=== PATIENT | male | born 1935 | race Caucasian/White ===

== ENCOUNTER 2019-10-04 00:14 | Emergency (ER) | payer MEDICARE, SELFPAY ==
--- NOTE | ~2019-10-04 | XR_ITS ---
EXAMINATION: XR foot RT min 3V DATE: 10/04/2019 02:16 INDICATION: Laceration at the right foot TECHNIQUE: Dorsoplantar, two oblique and lateral views of the right foot were obtained. COMPARISON: None. FINDINGS: Diffuse osteopenia. Screw fixation of a likely healed medial malleolar fracture with small amount of heterotopic ossification overlying the head of the screw. Hallux valgus. No acute fracture. 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 Mild to moderate osteoarthritis at many of the remaining joints in the right foot. Moderate-siz ed plantar calcaneal spur. Aside from the excreted no other radiopaque foreign bodies identified. IMPRESSION: 1. No acute osseous abnormality or radiopaque foreign bodies aside from a chronic fixation screw at t he medial malleolus. 2. 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 Reviewed, dictated and finalized at location A. IMPRESSION: 1. No acute osseous abnormality or radiopaque foreign bodies aside from a chron ic fixation screw at the medial malleolus. 2. 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
[2019-10-04 00:24] VITALS: BP 129/96; PULSE 76; RESP 18; TEMP 36.4; O2SAT 100
--- NOTE | 2019-10-04 01:45 | ED.WOUNDLAC ---
HPI - Wound/Laceration General Chief Complaint: Wound/Laceration Stated Complaint: R Foot Injury Time Seen by Provider: 10/04/19 01:32 Source: patient and family Mode of arrival: ambulatory Limitations: dementia History of Present Illness HPI narrative: This patient is an 84 year old male with history of Dementia, DM, and hypothyroid who presents with daughter for evaluation of right toe lacerations. She states patient fell and stubbed his toe. She found that he bent his toes upward and she found that he had lacerations under his right 4th and 5th toes. Patient states he is fine and he has not complaints. He denies numbness or tingling or pain. Related Data Home Medications Medication Instructions Recorded Confirmed glipizide 5 mg PO QAM 10/04/19 levothyroxine 75 mcg PO DAILY 10/04/19 lisinopril 2.5 mg PO DAILY 10/04/19 loratadine 10 mg PO DAILY 10/04/19 memantine 5 mg PO BID 10/04/19 Allergies Allergy/AdvReac Type Severity Reaction Status Date / Time No Known Allergies Allergy Unverified 10/04/19 00:38 Review of Systems Review of Systems: ROS unobtainable: Yes other (dementia, he denies all complaints) [facility] Past Medical History Medical History (Updated 10/04/19 @ 04:07 by Radha Dyer MD) Dementia Diabetes mellitus Hypertension Hypothyroid Surgical History Surgical History (Updated 10/04/19 @ 01:46 by Radha Dyer MD) Hx of foot surgery Social History Social History (Updated 10/04/19 @ 01:46 by Radha Dyer MD) Living arrangements: with family Exam Const: General: no acute distress and alert Orientation/consciousness: patient oriented x3 HENMT: Head: normocephalic and atraumatic Eyes: Pupils: Equal, round and reactive pupils present EOM: EOMs intact bilaterally Chest: Chest palpation & inspection: normal inspection of the chest Resp: Effort & Inspection: normal respiratory effort and no retractions Auscultation: clear to auscultation bilaterally Neuro: General: moves all extremities and CN's II-XI intact bilaterally Extrem: Other: right foot with with laceration at crease of plantar surface of 4th and 5th toe. able to visualize tendon on 5th toe , appears intact, able to flex and extend all toes, foot swelling Psych: Mental Status: mental status grossly normal Affect: normal affect Course Vital Signs Vital signs: Vital Signs Temperature 97.6 F 10/04/19 00:24 Pulse Rate 76 10/04/19 00:24 Respiratory Rate 18 10/04/19 00:24 Blood Pressure 129/96 H 10/04/19 00:24 Pulse Oximetry 100 10/04/19 00:24 Temperature 98.1 F 10/04/19 04:33 Pulse Rate 76 10/04/19 04:33 Respiratory Rate 18 10/04/19 04:33 Blood Pressure 123/73 10/04/19 04:33 Pulse Oximetry 100 10/04/19 04:33 Procedures Laceration Laceration 1: Date: 10/04/19 Time: 04:04 Side (If applicable): right (5th toe plantar surface) Size (cm): 1 Description: linear and clean Local Anesthetic: lidocaine 1% Amount of anesthesia used (mL): 2 Pre-repair: irrigated and deep structures intact ====== Skin Level ====== Skin layer closed with: prolene Size (cm): 4-0 Number of sutures: 5 Technique: simple, interrupted ====== Subcutaneous Layer ====== ====== Muscle Layer ====== ====== Tendon Layer ====== Laceration 2: Date: 10/04/19 Time: 04:05 Site: lower extremity Side (If applicable): right (4th toe) Size (cm): 1 Description: linear Depth: simple, single layer Local Anesthetic: lidocaine 1% Amount of anesthesia used (mL): 2 Pre-repair: irrigated and deep structures intact ====== Skin Level ====== Skin layer closed with: prolene Size (cm): 4-0 Number of sutures: 5 ====== Subcutaneous Layer ====== ====== Muscle Layer ====== ====== Tendon Layer ======
[2019-10-04] MEDS: TETANUS,DIPHTHERIA,AC PERTUSSIS ADULT (0.5 ML) BOOSTRIX IM (02:15)
[2019-10-04 04:33] VITALS: BP 123/73; PULSE 76; RESP 18; TEMP 36.7; O2SAT 100
== END 2019-10-04 04:34 | disposition home or self-care (01) ==
PROVIDERS: Emergency Provider General Practice
DX: S91.114A Laceration without foreign body of right lesser toe(s) without damage to nail, initial encounter (principal); F03.90 Unspecified dementia, unspecified severity, without behavioral disturbance, psychotic disturbance, mood disturbance, and anxiety; E11.9 Type 2 diabetes mellitus without complications; Z79.84 Long term (current) use of oral hypoglycemic drugs; I10 Essential (primary) hypertension; E03.9 Hypothyroidism, unspecified; Z23 Encounter for immunization; W22.8XXA Striking against or struck by other objects, initial encounter
CPT/HCPCS: 12001; 73630; 90471; 90715; 99283

== ENCOUNTER 2019-11-01 14:21 | Observation (INO) | payer MEDICARE, SELFPAY ==
[2019-11-01] VITALS (20 sets, daily range): BP systolic 98–126; BP diastolic 41–81; PULSE 86–121; RESP 17–35; TEMP 36.8–38.1; O2SAT 96–100; BMI 25.4
--- NOTE | ~2019-11-01 | XR_ITS ---
XR chest 1V portable DATE: 11/01/2019 15:51 INDICATION: Palpitations. Weakness. TECHNIQUE: Portable upright AP chest on 11/01/2019 at 1545 hours COMPARISON: None FINDINGS: Normal heart size. There is aortic arch calcification. No hilar or mediastinal enlargement. There is minimal infiltrate or atelectasis in the lower lung zones, left greater than right. No pulmo nary infiltrate or consolidation, pleural effusion or pulmonary vascular congestion or pneumothorax i s noted otherwise. There is diffuse osteopenia. Bilateral rotator cuff atrophy. There is an anchor device of the right h umeral head. IMPRESSION: Minimal infiltrate or atelectasis in the lower lung zones, left greater than right Reviewed, dictated and finalized at location A. IMPRESSION: Minimal infiltrate or atelectasis in the lower lung zones, left gre ater than right
[2019-11-01] MEDS: SODIUM CHLORIDE 0.9% IV 1,000 ML 999 ML IV CONT ×2 (14:50→17:22)
--- NOTE | 2019-11-01 15:14 | ECG_ITS ---
Measurements Intervals [place] Rate: 120 P: VT: 0 QRS: 61 QRSD: 81 T: 44 QT: 309 QTc: 437 Interpretive Statements SINUS OR ECTOPIC ATRIAL TACHYCARDIA RSR' IN V1 OR V2, CONSIDER RIGHT VENTRICULAR HYPERTROPHY OR RIGHT VCD BASELINE WANDER- I, II ABNORMAL ECG Electronically Signed On 11-01-2019 15:29:57 CDT by Vinicius Buck D.O.
[2019-11-01 15:46] LABS: Basophils Percent Auto 0.4 % (0.2-1.2); Eosinophils Percent Auto 0.1 % (0-4.4); Hematocrit 41.3 % (42.0-52.0); Hemoglobin 13.6 g/dL (14.0-18.0); Immature Granulocyte Absolute 0.04 K/mm3 (0.00-0.031); Immature Granulocyte Percent A 0.4 % (0-0.5); Lymphocytes Absolute Auto 0.75 K/mm3 (0.9-3.2); Lymphocytes Percent Auto 6.8 % (18.3-44.2); Mean Corpuscular HGB Conc 32.9 g/dl (32-36); Mean Corpuscular Volume 94.1 fl (80-100); Monocytes Percent Auto 8.9 % (2.6-8.5); Neutrophils Absolute Auto 9.2 K/mm3 (1.3-6.7); Neutrophils Percent Auto 83.4 % (45.5-73.1); Platelet Count Result 210 k/mm3 (150-375); Red Blood Count 4.39 M/mm3 (4.6-6.20); Red Cell Distribution Width 13.6 % (11.5-14.5)
[2019-11-01 15:56] LABS: INR 1.1
[2019-11-01 15:57] LABS: Partial Thromboplastin Time 27.7 SECONDS (22.3-36.8)
[2019-11-01 16:23] LABS: Add Urine Microscopic? NO; Appearance Urine Clear (Clear); Bilirubin Urine Negative (Negative); Blood Urine Negative (Negative); Color Urine Straw (Yellow); Glucose Urine UA Negative (Negative); Ketones Urine Negative (Negative); Leukocyte Esterase Ur Negative LEU/UL (Negative); Nitrate Urine Negative (Negative); Protein Urine Negative (Negative); Specific Grav Ur 1.011 (1.001-1.035); Urobilinogen Urine Negative mg/dL (<2.0)
[2019-11-01 16:26] LABS: Alanine Aminotransferase 13 U/L (4-50); Albumin Level 3.8 g/dL (3.5-5.1); Alkaline Phosphatase 68 U/L (38-126); Anion Gap 9 mmol/L (8-16); Aspartate Amino Transferase 18 U/L (17-59); Bilirubin,Total 0.5 mg/dL (0.2-1.3); Blood Urea Nitrogen 19 mg/dL (9-20); Calcium 8.4 mg/dL (8.4-10.2); Carbon Dioxide 25 mmol/L (22-30); Chloride 99 mmol/L (98-107); Estimated CRCL calculation 32 ml/min; Estimated Glomerular Filt Rate 53; Glucose 232 mg/dL (75-110); Potassium 4.3 mmol/L (3.4-5.0); Sodium 133 mmol/L (137-145)
[2019-11-01 16:31] LABS: Troponin I < 0.012 ng/mL (0.000-0.034)
--- NOTE | 2019-11-01 16:37 | PC.NURSE ---
asked nurse to collect lactic
--- NOTE | 2019-11-01 16:56 | ED.FEVER ---
HPI - Fever General Chief Complaint: Fever Stated Complaint: WEAKNESS/CP Time Seen by Provider: 11/01/19 14:28 Source: patient History of Present Illness HPI Narrative: 84 years old white male, history of diabetes, dementia, was doing okay last night, this morning was not able to get out of bed because of generalized weakness and tiredness, plus intermittent coughing. Patient was complaining of right chest pain, radiating to right lower extremity, patient been indoors since the beginning of the COVID-19, the daughter denied any exposure to anybody with known COVID-19 MD elicited complaint: malaise and weakness Related Data Home Medications Medication Instructions Recorded Confirmed glipizide 5 mg PO QAM 10/04/19 levothyroxine 75 mcg PO DAILY 10/04/19 loratadine 10 mg PO DAILY 10/04/19 memantine 5 mg PO BID 10/04/19 Allergies Allergy/AdvReac Type Severity Reaction Status Date / Time No Known Allergies Allergy Verified 11/01/19 14:55 Review of Systems Review of Systems: Narrative: CONSTITUTIONAL: Denies fever, chills, or sweats. EYES: Denies visual changes, redness, or discharge. ENT: Denies rhinorrhea, congestion, sore throat, or otalgia. CARDIOVASCULAR: Denies chest pain, palpitations, or edema. RESPIRATORY: Denies cough or dyspnea. GASTROINTESTINAL: Denies abdominal pain, nausea, vomiting, or diarrhea. GENITOURINARY: Denies dysuria or hematuria. SKIN: Denies rash or itching. MUSCULOSKELETAL: Denies back pain, joint pain, or myalgia. NEUROLOGIC: Denies headache, numbness, or weakness. PSYCHIATRIC: Denies anxiety or depression. PMFSH Past Medical History Medical History Dementia Diabetes mellitus Hypertension Hypothyroid Surgical History Surgical History Hx of foot surgery Social History Social History Gender identity (if verbalized by the patient): Male Exam Narrative: Exam Narrative: General appearance: Well-developed, well-nourished, sitting at the edge of the bed with intermittent coughing, daughter at the bedside Skin: Normal color Head: Normocephalic, nontraumatic Eyes: Clear conjunctiva ENT: Oropharynx normal, ears normal, nose normal Neck: Supple, nontender Chest and respiratory: Airway patent, no respiratory distress, no accessory muscle use Heart: Regular rate/rhythm Abdomen: Soft, nontender, no organomegaly, quiet bowel sounds Vascular: Normal peripheral pulses, normal capillary refill. Musculoskeletal: Normal range of motion, nontender back Neurologic: Alert and oriented to his name and age only Course Course Emergency Course: Stable Vital Signs Vital signs: Vital Signs Temperature 38.1 C H 11/01/19 14:29 Pulse Rate 119 H 11/01/19 14:29 Respiratory Rate 24 H 11/01/19 14:29 Blood Pressure 126/75 11/01/19 14:29 Pulse Oximetry 100 11/01/19 14:29 Temperature 38.1 C H 11/01/19 14:46 Pulse Rate 119 H 11/01/19 14:46 Respiratory Rate 26 H 11/01/19 14:54 Blood Pressure 115/80 11/01/19 14:46 Pulse Oximetry 99 11/01/19 14:54 MDM - Fever MDM Narrative Medical decision making narrative: Patient presents with chest pain, fever, general weakness, Labs, chest x-ray, EKG, IV fluid, Tylenol ordered. Further plan to follow Chest ray showed bilateral basal infiltration more on the left side, pneumonia is my concern. IV Rocephin and Zithromax started. COVID-19 test ordered. Patient will be admitted for further evaluation. Lab Data Result diagrams: 11/01/19 15:37 11/01/19 15:37 Labs: Lab Results
[2019-11-01 17:10] LABS: Lactic Acid Reflex 1.7 mmol/L (0.7-2.1)
[2019-11-01] MEDS: ACETAMINOPHEN 325 MG TABLET 650 MG PO (17:19)
[2019-11-01 18:50] LABS: Troponin I < 0.012 ng/mL (0.000-0.034)
--- NOTE | 2019-11-01 19:08 | PC.NURSE ---
This patient, Mk Sanches, was admitted to [facility] Surg Room 331-01. Report received from JEAN-PAUL Durán. Patient/family oriented to hospital policies and general routines including ID bracelet, bed and alarms, visiting hours, pain management, procedures, bathroom and other care routines, personal items, smoking policy, room service/diet, and visiting hours. Valuables list has been completed. Information on how to activate the Rapid Response Team has been discussed. Patient/Family are encouraged to report perceived risks to care and to ask questions if they do not understand what they are told or what they should do.
[2019-11-01] MEDS: SODIUM CHLORIDE 0.9% IV 1,000 ML 100 ML IV CONT (19:30)
[2019-11-01 21:25] LABS: CRP 8.4 mg/dL (<1.0)
[2019-11-01 23:20] LABS: Glucose Point of Care 172 (65-105)
[2019-11-02] VITALS: BP 155/87; PULSE 89; RESP 20; TEMP 37.3; O2SAT 96
[2019-11-02 04:00] VITALS: BP 126/64; PULSE 85; RESP 20; TEMP 37.3; O2SAT 93
--- NOTE | 2019-11-02 05:35 | PM.IMHP ---
H&P: HPI History of Present Illness Date/Time: 11/02/19 05:35 Chief complaint: chest pain and weakness Narrative: Mk Sanches is a 84 year old male with a past medical history of hypothyroidism diabetes and dementia who presented to the ER from home due to generalized weakness and cough. Source of information is ER records as patient is only oriented to person date of and age. He cannot remember why he exactly came in the ER yesterday afternoon. The patient evidently came from home where he lives with his daughter. He has not had any exposures to any persons with COVID-19. He has been indoors at home since the beginning of the COVID-19 outbreak.The patient was evidently complaining of right-sided chest pain that radiated to his right lower extremity. He was doing well on the evening of the but on the morning of the he was unable to get out of bed . He was complaining of malaise.. He was noted to have a dry intermittent cough. on arrival to the ER the patient had temperature of 100.6?. Review of Systems Review of Systems: Narrative: 12 systems were reviewed with pertinent positives and negatives per HPI. Except as documented in the HPI, all other systems were reviewed and are negative. PENDING SALE TO [facility] Past Medical History Medical History (Updated 11/02/19 @ 08:19 by Dannielle Gu DO) Dementia Depression Diabetes mellitus Hypertension Hypothyroid Surgical History Surgical History (Updated 11/02/19 @ 05:42 by Dannielle Gu DO) History of bilateral cataract extraction Hx of foot surgery Family History Family History Other Unknown family medical history Social History Social History (Updated 11/02/19 @ 08:08 by Dannielle Gu DO) Social History: Primary care physician: Dr. Rosana Solo Code status: DNR/DNI Smoking status: Never smoker Smokeless tobacco user: chewing tobacco Alcohol intake: former Substance use: never Living arrangements: with family Additional living arrangements comments: He lives with his daughter. 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 Gender identity (if verbalized by the patient): Male Spiritual care concerns: Yes Meds Home Medications and Allergies Home Medications Medication Instructions Recorded Confirmed Type glipizide 5 mg PO QAM 10/04/19 11/01/19 History levothyroxine 75 mcg PO DAILY 10/04/19 11/01/19 History loratadine 10 mg PO DAILY 10/04/19 11/01/19 History memantine 5 mg PO BID 10/04/19 11/01/19 History aspirin [Adult Low Dose Aspirin] 81 mg PO DAILY 11/01/19 11/01/19 History Allergies Allergy/AdvReac Type Severity Reaction Status Date / Time No Known Allergies Allergy Verified 11/01/19 14:55 Vital Signs Vital Signs - 24 hr 11/01/19 14:29 11/01/19 14:46 11/01/19 14:53 Temperature 100.6 F H 100.5 F H Pulse Rate 119 H 119 H 118 H Respiratory Rate 24 H 26 H 31 H Blood Pressure 126/75 115/80 Pulse Oximetry 100 98 100 11/01/19 14:54 11/01/19 15:00 11/01/19 15:01 Temperature Pulse Rate 115 H 114 H Respiratory Rate 26 H 35 H 34 H Blood Pressure 113/74 Pulse Oximetry 99 98 98 11/01/19 15:16 11/01/19 15:30 11/01/19 16:13 Temperature Pulse Rate 111 H 107 H 118 H Respiratory Rate 32 H 26 H 29 H Blood Pressure Pulse Oximetry 11/01/19 16:15 11/01/19 16:32 11/01/19 16:45 Temperature Pulse Rate 120 H 121 H 119 H Respiratory Rate 21 H 22 H 25 H Blood Pressure Pulse Oximetry 11/01/19 17:19 11/01/19 17:26 11/01/19 17:30 Temperature Pulse Rate 113 H 114 H 107 H Respiratory Rate 24 H 17 26 H Blood Pressure 109/73 108/81 Pulse Oximetry 99 99 11/01/19 17:49 11/01/19 18:00 11/01/19 19:27 Temperature 98.8 F 98.5 F Pulse Rate 96 96 Respiratory Rate 22 H 18 Blood Pressure 111/41 L 98/64 L Pulse Oximetry 99 99 11/01/19 19:50 11/01/19 20:00
[2019-11-02] MEDS: SODIUM CHLORIDE 0.9% IV 1,000 ML 100 ML IV CONT ×2 (06:26→18:37)
[2019-11-02 06:27] VITALS: TEMP 37.3
[2019-11-02 06:55] VITALS: TEMP 37.2
[2019-11-02] MEDS: LEVOTHYROXINE SODIUM 75 MCG TABLET PO (07:09)
[2019-11-02] MEDS: glipiZIDE 5 MG TABLET PO (07:10)
[2019-11-02 08:04] LABS: Glucose Point of Care 145 (65-105)
[2019-11-02 08:35] LABS: Hematocrit 35.6 % (42.0-52.0); Hemoglobin 11.8 g/dL (14.0-18.0); Mean Corpuscular HGB Conc 33.1 g/dl (32-36); Mean Corpuscular Hemoglobin 31.5 pg (26-34); Mean Corpuscular Volume 94.9 fl (80-100); Mean Platelet Volume 10.8 fl (7.4-10.4); Platelet Count Result 198 k/mm3 (150-375); Red Blood Count 3.75 M/mm3 (4.6-6.20); Red Cell Distribution Width 13.7 % (11.5-14.5); White Blood Count 7.9 K/mm3 (4.5-10.0)
[2019-11-02 08:48] LABS: Anion Gap 5 mmol/L (8-16); Blood Urea Nitrogen 14 mg/dL (9-20); Calcium 7.7 mg/dL (8.4-10.2); Carbon Dioxide 23 mmol/L (22-30); Chloride 106 mmol/L (98-107); Estimated CRCL calculation 42 ml/min; Estimated Glomerular Filt Rate 58; Glucose 143 mg/dL (75-110); Sodium 134 mmol/L (137-145)
[2019-11-02] MEDS: LORATADINE 10 MG TABLET PO (10:12)
[2019-11-02] MEDS: MEMANTINE 5 MG TABLET PO ×2 (10:12→18:41)
[2019-11-02] MEDS: ASPIRIN 81 MG ENTERIC TABLET PO (10:12)
[2019-11-02 14:00] VITALS: BP 104/52; PULSE 76; RESP 16; TEMP 36.8; O2SAT 96
[2019-11-02 14:19] LABS: SARS-CoV-2 RNA PCR Negative
--- NOTE | 2019-11-02 14:48 | PM.IMPN ---
Progress Note: A&P Assessment and Plan (1) Pneumonia: Qualifiers: Pneumonia type: due to unspecified organism Laterality: bilateral Lung location: lower lobe of lung Qualified Code(s): J18.9 - Pneumonia, unspecified organism Code(s): J18.9 - Pneumonia, unspecified organism Status: Acute Assessment and Plan: Minimal infiltrate or atelectasis in the lower lung zones, left greater than right from cxr, pt is on iv rocephin and iv zithromax, pt to continue both. bc negative to date. pt to be transfered to medical floor (2) Fever: Code(s): R50.9 - Fever, unspecified Status: Acute Assessment and Plan: Fever coming down (3) Person under investigation for COVID-19: Code(s): Z20.828 - Contact with and (suspected) exposure to other viral communicable diseases Status: Acute Assessment and Plan: Negative test Subjective Date/time seen: 11/02/19 14:48 Interval history: 84 year old male with a past medical history of hypothyroidism diabetes and dementia who presented to the ER from home due to generalized weakness and cough. pt is sleeping in the room, I told him his covid test was negative. no specific compliants just very tired Review of Systems Review of Systems: ROS unobtainable: Yes unobtainable due to medical condition Exam Narrative: Exam Narrative: elderly man very tired in bed no acute distress lying in bed hold conversation, alert when woken up Objective Data Vital Signs Vital Signs: Vital Signs - 24 hr 11/01/19 14:53 11/01/19 14:54 11/01/19 15:00 Temperature Pulse Rate 118 H 115 H Respiratory Rate 31 H 26 H 35 H Blood Pressure Pulse Oximetry 100 99 98 11/01/19 15:01 11/01/19 15:16 11/01/19 15:30 Temperature Pulse Rate 114 H 111 H 107 H Respiratory Rate 34 H 32 H 26 H Blood Pressure 113/74 Pulse Oximetry 98 11/01/19 16:13 11/01/19 16:15 11/01/19 16:32 Temperature Pulse Rate 118 H 120 H 121 H Respiratory Rate 29 H 21 H 22 H Blood Pressure Pulse Oximetry 11/01/19 16:45 11/01/19 17:19 11/01/19 17:26 Temperature Pulse Rate 119 H 113 H 114 H Respiratory Rate 25 H 24 H 17 Blood Pressure 109/73 Pulse Oximetry 99 11/01/19 17:30 11/01/19 17:49 11/01/19 18:00 Temperature 37.1 C Pulse Rate 107 H 96 Respiratory Rate 26 H 22 H Blood Pressure 108/81 111/41 L Pulse Oximetry 99 99 11/01/19 19:27 11/01/19 19:50 11/01/19 20:00 Temperature 36.9 C 36.8 C Pulse Rate 96 86 Respiratory Rate 18 18 Blood Pressure 98/64 L 121/73 Pulse Oximetry 99 96 100 11/02/19 00:00 11/02/19 04:00 11/02/19 06:27 Temperature 37.3 C 37.3 C 37.3 C Pulse Rate 89 85 Respiratory Rate 20 20 Blood Pressure 155/87 H 126/64 Pulse Oximetry 96 93 11/02/19 06:55 11/02/19 14:00 Temperature 37.2 C 36.8 C Pulse Rate 76 Respiratory Rate 16 Blood Pressure 104/52 L Pulse Oximetry 96 Intake/Output Intake/Output: Intake & Output 10/30/19 10/31/19 11/01/19 11/02/19 23:59 23:59 23:59 23:59 Intake Total 2300 1900 Balance 2300 1900 Meds/Results Medications: Active Medications Generic Name Dose Route Start Last Admin Trade Name Freq PRN Reason Stop Dose Admin Acetaminophen 650 mg 11/02/19 08:11 Tylenol Tablet PO Q4H PRN Mild Pain (1-3) or Fever Aspirin 81 mg 11/02/19 09:00 11/02/19 10:12 Aspirin Ec PO 81 mg DAILY DANIELLE Administration Dextrose 12.5 gm 11/01/19 22:39 Dextrose 50% Syringe IV PUSH PRN PRN Hypoglycemia Protocol Glipizide 5 mg 11/02/19 07:30 11/02/19 07:10 Glucotrol PO 5 mg DAILY@0730 DANIELLE Administration Glucagon 1 mg 11/01/19 22:39 Glucagon For Inj IM PRN PRN Hypoglycemia Protocol Glucose 15 gm 11/01/19 22:39 Glutose 15 PO PRN PRN Hypoglycemia Protocol Sodium Chloride 1,000 mls @ 100 mls/hr 11/01/19 17:50 11/02/19 06:26 Normal Saline Iv IV CONT 10
[2019-11-02 20:09] LABS: Glucose Point of Care 161 (65-105)
[2019-11-02 22:00] VITALS: BP 117/58; PULSE 108; RESP 18; TEMP 36.9; O2SAT 97
[2019-11-03 02:22] LABS: Glucose Point of Care 198 (65-105)
[2019-11-03 02:22] LABS: Glucose Point of Care 158 (65-105)
[2019-11-03] MEDS: LEVOTHYROXINE SODIUM 75 MCG TABLET PO (05:36)
[2019-11-03] MEDS: SODIUM CHLORIDE 0.9% IV 1,000 ML 100 ML IV CONT (05:54)
[2019-11-03 05:58] LABS: Hematocrit 35.9 % (42.0-52.0); Hemoglobin 11.9 g/dL (14.0-18.0); Mean Corpuscular HGB Conc 33.1 g/dl (32-36); Mean Corpuscular Hemoglobin 31.5 pg (26-34); Mean Platelet Volume 10.9 fl (7.4-10.4); Platelet Count Result 213 k/mm3 (150-375); Red Blood Count 3.78 M/mm3 (4.6-6.20); Red Cell Distribution Width 13.6 % (11.5-14.5); White Blood Count 7.5 K/mm3 (4.5-10.0)
[2019-11-03 06:00] VITALS: BP 102/53; PULSE 67; RESP 20; TEMP 36.5; O2SAT 96
[2019-11-03 06:10] LABS: Anion Gap 5 mmol/L (8-16); Blood Urea Nitrogen 15 mg/dL (9-20); Calcium 7.9 mg/dL (8.4-10.2); Carbon Dioxide 23 mmol/L (22-30); Chloride 106 mmol/L (98-107); Estimated CRCL calculation 39 ml/min; Estimated Glomerular Filt Rate 53; Glucose 146 mg/dL (75-110); Potassium 4.1 mmol/L (3.4-5.0); Sodium 134 mmol/L (137-145)
[2019-11-03] MEDS: LORATADINE 10 MG TABLET PO (08:35)
[2019-11-03] MEDS: ASPIRIN 81 MG ENTERIC TABLET PO (08:35)
[2019-11-03] MEDS: glipiZIDE 5 MG TABLET PO (08:35)
[2019-11-03] MEDS: MEMANTINE 5 MG TABLET PO ×2 (08:36→17:28)
[2019-11-03 09:44] LABS: Glucose Point of Care 112 (65-105)
[2019-11-03 12:13] LABS: Glucose Point of Care 138 (65-105)
[2019-11-03 14:00] VITALS: BP 116/62; PULSE 86; RESP 18; TEMP 36.7; O2SAT 98
--- NOTE | 2019-11-03 14:55 | PM.IMPN ---
Progress Note: A&P Assessment and Plan (1) Pneumonia: Qualifiers: Laterality: bilateral Lung location: lower lobe of lung Pneumonia type: due to unspecified organism Qualified Code(s): J18.9 - Pneumonia, unspecified organism Code(s): J18.9 - Pneumonia, unspecified organism Status: Acute Assessment and Plan: Minimal infiltrate or atelectasis in the lower lung zones, left greater than right from cxr, pt is on iv rocephin and iv zithromax, pt to continue both. bc negative to date. (2) Fever: Code(s): R50.9 - Fever, unspecified Status: Acute Assessment and Plan: Fever coming down, cough, sob improving. Hopegul dischrage tomorrow. (3) Person under investigation for COVID-19: Code(s): Z20.828 - Contact with and (suspected) exposure to other viral communicable diseases Status: Acute Assessment and Plan: Negative test Subjective Date/time seen: 11/03/19 14:55 Interval history: 84 year old male with a past medical history of hypothyroidism diabetes and dementia who presented to the ER from home due to generalized weakness and cough. pt is sleeping in the room, I told him his covid test was negative. no specific compliants, in good mood today, feels much better Review of Systems Review of Systems: All systems reviewed & are unremarkable except as noted in HPI and below Exam Narrative: Exam Narrative: Elderly man very tired in bed RRR Chest sounds wheezy BL Abdo soft non tender Legs non edematous Objective Data Vital Signs Vital Signs: Vital Signs - 24 hr 11/02/19 22:00 11/03/19 06:00 Temperature 36.9 C 36.5 C Pulse Rate 108 H 67 Respiratory Rate 18 20 Blood Pressure 117/58 L 102/53 L Pulse Oximetry 97 96 Intake/Output Intake/Output: Intake & Output 10/31/19 11/01/19 11/02/19 11/03/19 23:59 23:59 23:59 23:59 Intake Total 2300 3890 1200 Output Total 1350 675 Balance 2300 2540 525 Meds/Results Medications: Active Medications Generic Name Dose Route Start Last Admin Trade Name Freq PRN Reason Stop Dose Admin Acetaminophen 650 mg 11/02/19 08:11 Tylenol Tablet PO Q4H PRN Mild Pain (1-3) or Fever Aspirin 81 mg 11/02/19 09:00 11/03/19 08:35 Aspirin Ec PO 81 mg DAILY DANIELLE Administration Dextrose 12.5 gm 11/01/19 22:39 Dextrose 50% Syringe IV PUSH PRN PRN Hypoglycemia Protocol Glipizide 5 mg 11/02/19 07:30 11/03/19 08:35 Glucotrol PO 5 mg DAILY@0730 DANIELLE Administration Glucagon 1 mg 11/01/19 22:39 Glucagon For Inj IM PRN PRN Hypoglycemia Protocol Glucose 15 gm 11/01/19 22:39 Glutose 15 PO PRN PRN Hypoglycemia Protocol Sodium Chloride 1,000 mls @ 100 mls/hr 11/01/19 17:50 11/03/19 05:54 Normal Saline Iv IV CONT 100 mls/hr .Q10H DANIELLE Administration Dextrose 1,000 mls @ 100 mls/hr 11/01/19 22:39 Dextrose 5% 1,000 Ml IVPB PRN PRN Hypoglycemia Protocol Ceftriaxone Sodium/Dextrose 1 gm in 50 mls @ 100 mls/hr 11/02/19 17:00 11/02/19 19:09 Rocephin 1 Gm/D5w 50 Ml IVPB Infused Q24H DANIELLE Infusion Azithromycin 500 mg in 250 mls @ 250 mls/hr 11/02/19 16:00 11/02/19 19:38 Zithromax IVPB Infused Q24H DANIELLE Infusion Insulin Aspart 3 - 6 units 11/02/19 08:00 11/03/19 13:40 Novolog SUB-Q Not Given TIDWM [facility] Protocol Levothyroxine Sodium 75 mcg 11/02/19 06:30 11/03/19 05:36 Synthroid PO 75 mcg DAILY@0630 DANIELLE Administration Loratadine 10 mg 11/02/19 09:00 11/03/19 08:35 Claritin PO 10 mg DAILY DANIELLE Administration Memantine 5 mg 11/02/19 09:00 11/03/19 08:36 Namenda PO 5 mg BID DANIELLE Administration Radiology Results: ITS Impressions Chest X-Ray 11/01/19 15:51 IMPRESSION: Minimal infiltrate or atelectasis in the lower lung zones, left greater than right Labs Labs: Laboratory Results - last 24 hr 11/02/19
[2019-11-03 17:18] LABS: Glucose Point of Care 152 (65-105)
[2019-11-03 20:53] LABS: Glucose Point of Care 199 (65-105)
[2019-11-03 22:00] VITALS: BP 137/79; PULSE 85; RESP 18; TEMP 37.2; O2SAT 97
[2019-11-04 06:00] VITALS: BP 143/78; PULSE 84; RESP 18; TEMP 36.9; O2SAT 99
[2019-11-04] MEDS: LEVOTHYROXINE SODIUM 75 MCG TABLET PO (06:34)
[2019-11-04 08:00] VITALS: PULSE 86; RESP 18; O2SAT 99
[2019-11-04] MEDS: ASPIRIN 81 MG ENTERIC TABLET PO (08:34)
[2019-11-04] MEDS: glipiZIDE 5 MG TABLET PO (08:36)
[2019-11-04] MEDS: LORATADINE 10 MG TABLET PO (08:37)
[2019-11-04] MEDS: MEMANTINE 5 MG TABLET PO ×2 (08:37→17:09)
[2019-11-04 12:03] LABS: Glucose Point of Care 139 (65-105)
[2019-11-04 14:00] VITALS: BP 108/80; PULSE 79; RESP 16; TEMP 36.8; O2SAT 90
--- NOTE | 2019-11-04 15:41 | PM.DS ---
DS: Admitting Diagnosis Admitting Diagnosis Admitting Diagnosis: chest pain and weakness DS: Discharge Diagnosis Discharge Diagnosis (1) Pneumonia: Qualifiers: Pneumonia type: due to unspecified organism Laterality: bilateral Lung location: lower lobe of lung Qualified Code(s): J18.9 - Pneumonia, unspecified organism Code(s): J18.9 - Pneumonia, unspecified organism Status: Acute Assessment and Plan: Community ACQUIRED pneumonia. Minimal infiltrate or atelectasis in the lower lung zones, left greater than right from cxr, pt was treated with iv rocephin and iv zithromax for 2 days, bc negative to date. Pt doing better, WCC NL. pt stable for discharge aniyah taylor. Walking in the room ready to go home. (2) Fever: Code(s): R50.9 - Fever, unspecified Status: Acute Assessment and Plan: No Fever, cough, or SOB. (3) Person under investigation for COVID-19: Code(s): Z20.828 - Contact with and (suspected) exposure to other viral communicable diseases Status: Acute Assessment and Plan: Negative test. COVID ruled out. DS: Summary Time Spent with Patient Time attestation: Total time spent providing and/or coordinating discharge services:40 minutes on day of dischrage Exam Narrative: Exam Narrative: Elderly man friendly pleasant, no distress RRR Chest sounds are clear Abdo soft non tender Legs non edematous DS: Data Data Completed and Pending Labs on day of discharge: Labs from last 24 hours 11/04/19 11/03/19 11/03/19 11:55 20:49 17:10 POC Capillary Glucose 139 H 199 H 152 H Preliminary micro results at discharge 11/01/19 16:06 Blood Culture - Preliminary Blood 11/01/19 15:37 Blood Culture - Preliminary Blood Discharge Plan Discharge Attending physician on discharge: Lainet Antonio Discharging Clinician: Lianet Antonio Anticipated Discharge Date/Time: 11/04/19 15:39 Patient Disposition: Home, Self-Care Activity: as tolerated Diet: diabetic Patient Instructions: Antibiotic Form, Community Acquired Pneumonia (GEN) Stand Alone Forms: General Discharge Information Follow-up/Referrals: PHYSICIAN NOT ON STAFF,NONSTAFF [Primary Care Provider] - Discharge Medications: New azithromycin [Zithromax Z-Sherman] 250 mg tablet See Rx Instructions .ROUTE .COMPLEX Qty: 6 RF: 0 Continued levothyroxine 75 mcg tablet 75 mcg PO DAILY RF: 0 glipizide 5 mg tablet 5 mg PO QAM RF: 0 memantine 5 mg tablet 5 mg PO BID RF: 0 loratadine 10 mg tablet 10 mg PO DAILY RF: 0 aspirin [Adult Low Dose Aspirin] 81 mg Tablet,Delayed Release (Dr/Ec) 81 mg PO DAILY RF: 0 Date of admission: 11/01/19 17:34 Primary Care Provider: PHYSICIAN NOT ON STAFF,NONSTAFF Admitting Provider: Lianet Antonio Attending physician on admission: Lianet Antonio Condition: Stable
== END 2019-11-04 18:00 | disposition home or self-care (01) ==
LOC: ANHED 17:58 → ANH3MEDSUR 18:08
PROVIDERS: Internal Medicine; Admitting Provider Family Medicine; Emergency Provider Emergency Medicine; Visit Provider Family Medicine
DX: J18.9 Pneumonia, unspecified organism (principal); Z20.828 Contact with and (suspected) exposure to other viral communicable diseases; R50.9 Fever, unspecified; R07.9 Chest pain, unspecified; E11.9 Type 2 diabetes mellitus without complications; F03.90 Unspecified dementia, unspecified severity, without behavioral disturbance, psychotic disturbance, mood disturbance, and anxiety; I10 Essential (primary) hypertension; Z79.4 Long term (current) use of insulin
CPT/HCPCS: 36415; 51701; 71045; 80048; 80053; 81003; 83605; 84443; 84484; 85025; 85027; 85610; 85730; 86140; 87040; 87635; 93005; 96361; 96365; 96366; 96368; 96375; 96376; 97161; 97165; 99285; A9270; C9803; G0378; J0131; J0456; J0696; J7030; U0003

== ENCOUNTER 2020-09-18 11:25 | Outpatient (CLI) | payer MEDICARE, SELFPAY ==
[2020-09-18 12:39] LABS: Basophils Absolute Auto 0.1 K/mm3 (0.0-0.1); Basophils Percent Auto 1.8 % (0.2-1.2); Eosinophils Absolute Auto 0.3 K/mm3 (0-0.3); Eosinophils Percent Auto 4.6 % (0-4.4); Hematocrit 48.2 % (42.0-52.0); Hemoglobin 15.6 g/dL (14.0-18.0); Immature Granulocyte Absolute 0.02 K/mm3 (0.00-0.031); Immature Granulocyte Percent A 0.4 % (0-0.5); Lymphocytes Absolute Auto 1.49 K/mm3 (0.9-3.2); Lymphocytes Percent Auto 27.4 % (18.3-44.2); Mean Corpuscular HGB Conc 32.4 g/dl (32-36); Mean Corpuscular Volume 95.8 fl (80-100); Mean Platelet Volume 10.7 fl (7.4-10.4); Monocytes Absolute Auto 0.5 K/mm3 (0.1-0.6); Monocytes Percent Auto 9.4 % (2.6-8.5); Neutrophils Absolute Auto 3.1 K/mm3 (1.3-6.7); Neutrophils Percent Auto 56.4 % (45.5-73.1); Platelet Count Result 267 k/mm3 (150-375); Red Blood Count 5.03 M/mm3 (4.6-6.20); Red Cell Distribution Width 13.8 % (11.5-14.5); White Blood Count 5.4 K/mm3 (4.5-10.0)
[2020-09-18 12:57] LABS: Alanine Aminotransferase 16 U/L (4-50); Albumin Level 4.1 g/dL (3.5-5.1); Alkaline Phosphatase 69 U/L (38-126); Anion Gap 9 mmol/L (8-16); Aspartate Amino Transferase 26 U/L (17-59); Bilirubin,Total 0.4 mg/dL (0.2-1.3); Blood Urea Nitrogen 22 mg/dL (9-20); Calcium 9.3 mg/dL (8.4-10.2); Carbon Dioxide 26 mmol/L (22-30); Chloride 106 mmol/L (98-107); Cholesterol 175 mg/dL (0-200); Estimated Glomerular Filt Rate 48; Glucose 131 mg/dL (75-110); HDL Direct 42 mg/dL; Potassium 4.4 mmol/L (3.4-5.0); Sodium 141 mmol/L (137-145); Triglycerides 118 mg/dL (<150)
[2020-09-18 13:08] LABS: LDL Cholesterol Direct 99 mg/dL
[2020-09-18 13:10] LABS: Hemoglobin A1C 6.9 % (<5.7)
[2020-09-18 13:11] LABS: Creatinine Urine 114.3 mg/dL
[2020-09-18 13:39] LABS: MALB Creatinine Ratio < 5.2 mg/g (0-30); Microalbumin Urine Random < 6.0 mg/L (0-16.7)
== END 2020-09-18 11:26 | disposition home or self-care (01) ==
DX: E11.22 Type 2 diabetes mellitus with diabetic chronic kidney disease (principal); N18.31 Chronic kidney disease, stage 3a; E11.40 Type 2 diabetes mellitus with diabetic neuropathy, unspecified
CPT/HCPCS: 36415; 80053; 80061; 82043; 83036; 84443; 85025

== ENCOUNTER 2021-01-14 19:27 | Observation (INO) | payer MEDICARE, SELFPAY ==
--- NOTE | ~2021-01-14 | CT_ITS ---
EXAMINATION: CT brain wo con DATE: 01/14/2021 20:37 INDICATION: Weakness and confusion TECHNIQUE: Computed tomography (CT) of the head was performed without intravenous contrast. The dose- length product was 605.33 mGy-cm. Automated exposure control and iterative reconstruction technique w ere employed. COMPARISON: None FINDINGS: Generalized atrophy. There are scattered mild periventricular and subcortical white matter changes, most likely related to small vessel ischemic disease (microangiopathy). No acute intracrania l hemorrhage, infarction, mass or mass effect. Paranasal sinuses and mastoids are pneumatized. No dep ressed skull fractures. Midline sagittal images are unremarkable. IMPRESSION: 1. No acute intracranial abnormality. 2: Chronic age-related findings. Reviewed, dictated and finalized at location A.
--- NOTE | ~2021-01-14 | XR_ITS ---
XR chest 1V 01/14/2021 20:39 Indication: Confusion and slurred speech. Hypertension. Procedure: AP view of the chest Comparison: 11/01/2019 Findings: Bibasilar airspace disease. Heart size normal. No significant effusion, edema or pneumothor ax. There are are degenerative changes of both shoulders, right greater than left. Impression: 1: Bibasilar airspace disease which may represent atelectasis or pneumonia. Reviewed, dictated and finalized at location A. Impression: 1: Bibasilar airspace disease which may represent atelectasis or pneumonia.
--- NOTE | 2021-01-14 19:43 | ECG_ITS ---
Measurements Intervals [place] Rate: 112 P: 27 RI: 181 QRS: 76 QRSD: 130 T: 38 QT: 337 QTc: 461 Interpretive Statements SINUS TACHYCARDIA ATRIAL PREMATURE COMPLEXES RIGHT BUNDLE BRANCH BLOCK ABNORMAL ECG Electronically Signed On 01-14-2021 19:54:21 CDT by Vinicius Buck D.O.
[2021-01-14 19:52] VITALS: BP 116/83; PULSE 108; RESP 18; TEMP 37.4; O2SAT 98
[2021-01-14 19:54] LABS: Glucose Point of Care 236 mg/dl (65-105)
--- NOTE | 2021-01-14 19:59 | ED.NEUROSD ---
HPI - Neuro Symptoms/Deficit General Chief Complaint: Suspected CVA Stated Complaint: High BG Time Seen by Provider: 01/14/21 20:14 Source: patient Mode of arrival: ambulatory Limitations: no limitations History of Present Illness HPI Narrative: Patient is an 84-year-old male brought in by daughter due to he has been sleeping a lot for the past 3 days and today his blood sugar was 331 and he was weak . Daughter states that he was a little confused earlier but that is now resolved. Patient does have a history of dementia. Daughter states that patient is back to baseline but just worried about his blood sugar being elevated and that is the reason why she brought him here. Patient denies any focal weakness or numbness, speech or visual disturbance, chest pain, shortness of breath, abdominal pain, nausea, vomiting, diarrhea, fever or chills. Related Data Home Medications Medication Instructions Recorded Confirmed glipizide 5 mg PO QAM 10/04/19 11/01/19 levothyroxine 75 mcg PO DAILY 10/04/19 11/01/19 loratadine 10 mg PO DAILY 10/04/19 11/01/19 memantine 5 mg PO BID 10/04/19 11/01/19 aspirin [Adult Low Dose Aspirin] 81 mg PO DAILY 11/01/19 11/01/19 Allergies Allergy/AdvReac Type Severity Reaction Status Date / Time No Known Allergies Allergy Verified 11/01/19 14:55 Review of Systems Review of Systems: All systems reviewed & are unremarkable except as noted in HPI and below Constitutional: Constitutional: Denies body ache(s), Denies chills, Denies excessive sweating, Denies fatigue, Denies fever(s), Denies headache(s), Denies lethargy, Denies malaise and Denies weight loss Eyes: Eyes: Denies blurry vision, Denies change in vision and Denies loss of vision ENT: Denies dizziness, Denies ear discharge, Denies headache(s), Denies lip swelling, Denies epistaxis, Denies nasal congestion, Denies neck pain, Denies throat swelling and Denies tongue swelling Cardiovascular: Cardiovascular: Denies chest pain, Denies chest pain at rest, Denies chest pain with activity, Denies diaphoresis, Denies rapid heart rate, Denies edema, Denies irregular heart rhythm, Denies lightheadedness, Denies palpitations, Denies dyspnea and Denies dyspnea on exertion Respiratory: Respiratory: Denies chest congestion, Denies cough, Denies hemoptysis, Denies dyspnea and Denies dyspnea on exertion Gastrointestinal: Gastrointestinal: Denies abdominal pain, Denies melena, Denies hematochezia, Denies diarrhea, Denies nausea, Denies vomiting and Denies hematemesis Musculoskeletal: Musculoskeletal: Denies abnormal gait, Denies deformity, Denies joint swelling, Denies limited range of motion, Denies neck pain and Denies numbness Neurologic: Denies Abnormal speech present, Denies abnormal gait, Denies dizziness, Denies headache(s), Denies focal weakness, Denies loss of vision, Denies numbness, Denies Other visual disturbances and Denies Sensory deficit (Neuro) Psychiatric: Psychiatric: Denies confusion, Denies depression, Denies auditory hallucinations, Denies homicidal ideation and Denies suicidal ideation Endocrine: Endocrine: Denies cold intolerance, Denies excessive sweating, Denies fatigue, Denies heat intolerance and Denies palpitations Hematologic/Lymphatic: Hematologic/Lymphatic: Denies easy bleeding and Denies easy bruising Allergic/Immunologic: Allergic/Immunologic: Denies lip swelling, Denies throat swelling and Denies tongue swelling PMFSH Past Medical History Medical History Dementia Depression Diabetes mellitus Hypertension Hypothyroid Surgical History Surgical History History of bilateral cataract extraction Hx of foot surgery Family History Family History Other Unknown family medical history Social History Social History S
[2021-01-14 20:14] VITALS: BP 94/77; PULSE 114; RESP 18; O2SAT 97
--- NOTE | 2021-01-14 20:20 | PC.NURSE ---
Pt to Ct via stretcher at this time.
--- NOTE | 2021-01-14 21:00 | PC.NURSE ---
Pt moved to room 10 at this time, report given to Coy JEONG.
[2021-01-14 21:26] LABS: Basophils Absolute Auto 0.1 K/mm3 (0.0-0.1); Basophils Percent Auto 0.4 % (0.2-1.2); Eosinophils Absolute Auto 0.2 K/mm3 (0-0.3); Eosinophils Percent Auto 1.2 % (0-4.4); Hematocrit 44.5 % (42.0-52.0); Hemoglobin 14.6 g/dL (14.0-18.0); Immature Granulocyte Absolute 0.05 K/mm3 (0.00-0.031); Immature Granulocyte Percent A 0.4 % (0-0.5); Lymphocytes Percent Auto 10.7 % (18.3-44.2); Mean Corpuscular HGB Conc 32.8 g/dl (32-36); Mean Corpuscular Hemoglobin 31.1 pg (26-34); Mean Corpuscular Volume 94.9 fl (80-100); Monocytes Absolute Auto 1.3 K/mm3 (0.1-0.6); Monocytes Percent Auto 10.3 % (2.6-8.5); Platelet Count Result 189 k/mm3 (150-375); Red Blood Count 4.69 M/mm3 (4.6-6.20); Red Cell Distribution Width 14.6 % (11.5-14.5)
[2021-01-14] MEDS: LACTATED RINGERS 1,000 ML 999 ML IV CONT (21:30)
[2021-01-14 21:35] LABS: INR 1.1
[2021-01-14 21:36] LABS: Partial Thromboplastin Time 30.5 SECONDS (22.3-36.8)
[2021-01-14 21:37] LABS: Anion Gap 10 mmol/L (8-16); Blood Urea Nitrogen 31 mg/dL (9-20); Calcium 9.1 mg/dL (8.4-10.2); Carbon Dioxide 23 mmol/L (22-30); Chloride 101 mmol/L (98-107); Estimated CRCL calculation 33 ml/min; Estimated Glomerular Filt Rate 41; Glucose 192 mg/dL (65-110); Potassium 4.3 mmol/L (3.4-5.0); Sodium 134 mmol/L (137-145)
[2021-01-14 21:49] LABS: Troponin I < 0.012 ng/mL (0.000-0.034)
[2021-01-14 21:51] LABS: Lactic Acid Reflex 1.7 mmol/L (0.7-2.1)
[2021-01-14 22:15] LABS: Add Urine Microscopic? YES; Appearance Urine Cloudy (Clear); Bilirubin Urine Negative (Negative); Blood Urine Negative (Negative); Color Urine Yellow (Yellow); Glucose Urine UA Negative (Negative); Ketones Urine Negative (Negative); Leukocyte Esterase Ur Trace LEU/UL (Negative); Nitrate Urine Negative (Negative); Protein Urine 1+ mg/dL (Negative); Specific Grav Ur 1.023 (1.001-1.035); Urobilinogen Urine Negative mg/dL (<2.0)
[2021-01-14 22:28] VITALS: BP 126/80; PULSE 96; RESP 18; O2SAT 95
[2021-01-14 23:49] VITALS: BP 115/68; PULSE 95; RESP 18; O2SAT 95
[2021-01-14] MEDS: LACTATED RINGERS 1,000 ML 100 ML IV CONT (23:53)
[2021-01-15] VITALS (10 sets, daily range): BP systolic 98–134; BP diastolic 55–99; PULSE 73–97; RESP 16–20; TEMP 36.2–37.1; O2SAT 92–97; BMI 24.3
--- NOTE | 2021-01-15 01:53 | ADMGEN ---
This patient, Mk Sanches, was admitted to [facility] Surg Room 331-02 at 0130. Patient/family oriented to hospital policies and general routines including ID bracelet, bed and alarms, visiting hours, pain management, procedures, bathroom and other care routines, personal items, smoking policy, room service/diet, and visiting hours. Information on how to activate the Rapid Response Team has been discussed. Patient/Family are encouraged to report perceived risks to care and to ask questions if they do not understand what they are told or what they should do.
--- NOTE | 2021-01-15 02:12 | PM.IMHP ---
H&P: HPI History of Present Illness Date/Time: 01/15/21 02:12 Chief Complaint: Weakness Narrative: This is an 85-year-old male with past medical history significant for hypothyroidism, type 2 diabetes mellitus, dementia, patient was brought to the emergency room due to generalized weakness unable to get up from bed has been feeling like this for the last 2 days or so denies any nausea vomiting abdominal pain or diarrhea he has had fevers for the last 2 days poor appetite. Preliminary workup was significant for chest x-ray with bibasilar infiltrates, however patient denies any cough any sputum production shortness of breath fevers chills or rigors. Decision has been made to admit the patient for further management treatment and evaluation. Review of Systems Review of Systems: Generalized weakness Constitutional: Constitutional: Denies chills, Reports excessive sweating, Reports fatigue, Denies fever(s), Reports lethargy, Denies malaise and Reports weakness Eyes: Eyes: Denies change in vision ENT: Denies dysphagia, Denies vertigo, Denies dizziness, Denies nasal congestion, Denies nasal discharge, Denies nasal obstruction and Denies odynophagia Cardiovascular: Cardiovascular: Denies irregular heart rhythm, Denies leg edema, Denies lightheadedness, Denies radiating jaw, neck or arm pain, Denies palpitations, Denies dyspnea on exertion and Denies orthopnea Respiratory: Respiratory: Denies cough and Denies dyspnea Gastrointestinal: Gastrointestinal: Denies abdominal pain, Denies GI cramping, Denies dyspepsia, Denies heartburn, Denies nausea and Denies vomiting Genitourinary: Genitourinary: Denies dysuria Musculoskeletal: Musculoskeletal: Reports joint swelling and Reports muscle weakness Integumentary/Breasts: Skin/Breast: Denies rash Neurologic: Denies focal weakness and Denies Sensory deficit (Neuro) Psychiatric: Psychiatric: Reports as per HPI Endocrine: Endocrine: Reports as per HPI Hematologic/Lymphatic: Hematologic/Lymphatic: Reports as per HPI Allergic/Immunologic: Allergic/Immunologic: Reports as per HPI PMF Past Medical History Medical History Dementia Depression Diabetes mellitus Hypertension Hypothyroid Surgical History Surgical History History of bilateral cataract extraction Hx of foot surgery Family History Family History Other Unknown family medical history Social History Social History Social History: Primary care physician: Dr. Rosana Solo Code status: DNR/DNI Smoking status: Former smoker Smokeless tobacco user: chewing tobacco Alcohol intake: former Substance use: former Substance use type: does not use Additional living arrangements comments: He lives with his daughter. 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 Gender identity (if verbalized by the patient): Male Spiritual care concerns: No Meds Home Medications and Allergies Home Medications Medication Instructions Recorded Confirmed Type glipizide 5 mg PO QAM 10/04/19 01/15/21 History levothyroxine 75 mcg PO DAILY 10/04/19 01/15/21 History loratadine 10 mg PO DAILY 10/04/19 01/15/21 History memantine 5 mg PO BID 10/04/19 01/15/21 History aspirin [Adult Low Dose Aspirin] 81 mg PO DAILY 11/01/19 01/15/21 History Allergies Allergy/AdvReac Type Severity Reaction Status Date / Time No Known Allergies Allergy Verified 11/01/19 14:55 Vital Signs Vital Signs - 24 hr 01/14/21 19:52 01/14/21 20:14 01/14/21 22:28 Temperature 99.4 F Pulse Rate 108 H 114 H 96 Respiratory Rate 18 18 18 Blood Pressure 116/83 94/77 L 126/80 Pulse Oximetry 98 97 95 01/14/21 23:49 01/15/21 01:06 01/15/21 01:08 Temperature Pulse Rate 95 92 92 Respiratory Rate 18 20
[2021-01-15 07:56] LABS: Glucose Point of Care 140 mg/dl (65-105)
[2021-01-15 10:16] LABS: Basophils Absolute Auto 0.1 K/mm3 (0.0-0.1); Basophils Percent Auto 0.5 % (0.2-1.2); Eosinophils Absolute Auto 0.3 K/mm3 (0-0.3); Eosinophils Percent Auto 2.1 % (0-4.4); Hemoglobin 12.7 g/dL (14.0-18.0); Immature Granulocyte Absolute 0.05 K/mm3 (0.00-0.031); Immature Granulocyte Percent A 0.4 % (0-0.5); Lymphocytes Absolute Auto 1.16 K/mm3 (0.9-3.2); Lymphocytes Percent Auto 9.6 % (18.3-44.2); Mean Corpuscular HGB Conc 32.6 g/dl (32-36); Mean Corpuscular Hemoglobin 31.1 pg (26-34); Mean Corpuscular Volume 95.6 fl (80-100); Mean Platelet Volume 11.3 fl (7.4-10.4); Monocytes Absolute Auto 1.2 K/mm3 (0.1-0.6); Monocytes Percent Auto 9.8 % (2.6-8.5); Neutrophils Absolute Auto 9.4 K/mm3 (1.3-6.7); Neutrophils Percent Auto 77.6 % (45.5-73.1); Platelet Count Result 166 k/mm3 (150-375); Red Blood Count 4.08 M/mm3 (4.6-6.20); Red Cell Distribution Width 14.3 % (11.5-14.5); White Blood Count 12.1 K/mm3 (4.5-10.0)
[2021-01-15 10:56] LABS: Anion Gap 10 mmol/L (8-16); Blood Urea Nitrogen 23 mg/dL (9-20); Calcium 8.5 mg/dL (8.4-10.2); Carbon Dioxide 21 mmol/L (22-30); Chloride 102 mmol/L (98-107); Estimated CRCL calculation 42 ml/min; Estimated Glomerular Filt Rate 58; Glucose 147 mg/dL (65-110); Sodium 133 mmol/L (137-145)
[2021-01-15 11:02] LABS: Hemoglobin A1C 7.3 % (<5.7)
[2021-01-15 11:40] LABS: Glucose Point of Care 145 mg/dl (65-105)
[2021-01-15] MEDS: ALBUTEROL SULFATE (*SP) AEROSOL 1 PUFF 2 PUFF INHALATION (13:51)
--- NOTE | 2021-01-15 14:53 | PM.IMPN ---
Progress Note: A&P Assessment and Plan (1) Pneumonia: Qualifiers: Pneumonia type: due to unspecified organism Laterality: unspecified laterality Lung location: unspecified part of lung Qualified Code(s): J18.9 - Pneumonia, unspecified organism Code(s): J18.9 - Pneumonia, unspecified organism Status: Acute Assessment and Plan: CXR showed bibasilar airspace disease which may represent atelectasis versus pneumonia. He does have mild leukocytosis. He has been afebrile. Continue IV Rocephin and azithromycin Blood cultures pending Sputum culture not able to be obtained as he does not have productive cough Will check urinary Legionella and pneumococcal antigens Supplemental O2 as needed with goal saturation 92% or above. He is maintaining adequate O2 sats on room air Supportive care to include bronchodilators, expectorants, antipyretics, incentive spirometry, and PEP therapy (2) Diabetes mellitus: Code(s): E11.9 - Type 2 diabetes mellitus without complications Status: Acute Assessment and Plan: A1c is 7.3. Noted to have elevated blood sugars at home up to 330 Blood sugars have been well controlled today in the 140s Begin Accu-Cheks, sliding scale insulin, and hypoglycemic protocol Hold home glipizide Diabetic diet (3) Dementia: Code(s): F03.90 - Unspecified dementia without behavioral disturbance Status: Acute Assessment and Plan: He is oriented to self only. Appears to be consistent with his baseline. Continue memantine (4) Hypothyroid: Code(s): E03.9 - Hypothyroidism, unspecified Status: Acute Assessment and Plan: Continue levothyroxine 75 mcg daily. Check TSH (5) Acute kidney injury: Code(s): N17.9 - Acute kidney failure, unspecified Status: Acute Assessment and Plan: Resolved. Potassium was 1.6 on presentation and has improved with IV fluids down to 1.2 today. Likely prerenal etiology secondary to dehydration. Subjective Date/time seen: 01/15/21 14:53 Interval history: Date of service: 01/15/2021 Mk Sanches is an 85-year-old male with a history of dementia, diabetes mellitus, hypertension, hypothyroidism who is seen in follow-up for pneumonia. He has dementia and is overall a poor historian. He denies shortness of breath. He states he is not coughing too much. Otherwise, I am not able to obtain any history from him. He did eat a good lunch today. Review of Systems Review of Systems: ROS unobtainable: Yes unobtainable due to mental status Exam Narrative: Mr. Sanches is a well-nourished, well-appearing 85-year-old male who is lying supine in bed. He appears comfortable and is in NARD. Neuro: awake, alert and oriented to self only. Can state date of and age. Speech clear, no focal neuro deficits noted HEENMT: normocephalic, atraumatic, EOMI, sclerae anicteric, moist oral mucosa Neck: supple, no lymphadenopathy Respiratory: clear to auscultation bilaterally, nonlabored breathing Cardio: regular rate, regular rhythm with S1-S2 Abdomen: nondistended, normoactive bowel sounds, soft, nontender to palpation Extremities: no edema, erythema, or tenderness to palpation, DP pulses 2+ bilaterally Skin: no rashes or lesions, warm and dry Psych: appropriate mood and affect, judgment and insight poor Objective Data Vital Signs Vital Signs: Vital Signs - 24 hr 01/14/21 19:52 01/14/21 20:14 01/14/21 22:28 Temperature 99.4 F Pulse Rate 108 H 114 H 96 Respiratory Rate 18 18 18 Blood Pressure 116/83 94/77 L 126/80 Pulse Oximetry 98 97 95 01/14/21 23:49 01/15/21 01:06 01/15/21 01:08 Temperature Pulse Rate 95 92 92 Respiratory Rate 18 20 20 Blood Pressure 115/68 106/67 106/67 Pulse Oximetry 95 97 97 01/15/21 01:13 01/15/21 01:21 01/15/21 01:30 Temperature 98.5 F Pulse Rate 92 83 Respiratory Rate 18 18 18 Blood Pressure 106/67 134/71 Pulse Oximetr
[2021-01-15] MEDS: INSULIN ASPART (*BKC) 100 UNITS/ML SUB-Q (16:37)
[2021-01-15] MEDS: MEMANTINE 5 MG TABLET PO (16:38)
[2021-01-15 19:42] LABS: Glucose Point of Care 262 mg/dl (65-105)
[2021-01-15] MEDS: guaiFENesin 12 HR 600 MG TABCR PO (21:10)
[2021-01-16 05:50] VITALS: BP 107/62; PULSE 87; RESP 18; TEMP 37.2; O2SAT 97
[2021-01-16] MEDS: LEVOTHYROXINE SODIUM 75 MCG TABLET PO (06:12)
[2021-01-16 06:21] LABS: Glucose Point of Care 152 mg/dl (65-105)
[2021-01-16 06:23] LABS: Basophils Percent Auto 0.3 % (0.2-1.2); Eosinophils Absolute Auto 0.2 K/mm3 (0-0.3); Eosinophils Percent Auto 2.1 % (0-4.4); Hematocrit 36.4 % (42.0-52.0); Immature Granulocyte Absolute 0.05 K/mm3 (0.00-0.031); Immature Granulocyte Percent A 0.4 % (0-0.5); Lymphocytes Absolute Auto 1.03 K/mm3 (0.9-3.2); Lymphocytes Percent Auto 8.8 % (18.3-44.2); Mean Corpuscular Hemoglobin 31.5 pg (26-34); Mean Corpuscular Volume 95.5 fl (80-100); Mean Platelet Volume 11.6 fl (7.4-10.4); Monocytes Absolute Auto 1.1 K/mm3 (0.1-0.6); Monocytes Percent Auto 9.8 % (2.6-8.5); Neutrophils Absolute Auto 9.2 K/mm3 (1.3-6.7); Neutrophils Percent Auto 78.6 % (45.5-73.1); Platelet Count Result 173 k/mm3 (150-375); Red Blood Count 3.81 M/mm3 (4.6-6.20); White Blood Count 11.7 K/mm3 (4.5-10.0)
[2021-01-16 06:24] LABS: Anion Gap 10 mmol/L (8-16); Blood Urea Nitrogen 19 mg/dL (9-20); Calcium 8.1 mg/dL (8.4-10.2); Carbon Dioxide 22 mmol/L (22-30); Chloride 99 mmol/L (98-107); Estimated CRCL calculation 39 ml/min; Estimated Glomerular Filt Rate 53; Glucose 164 mg/dL (65-110); Magnesium 1.6 mg/dL (1.6-2.3); Potassium 3.8 mmol/L (3.4-5.0); Sodium 131 mmol/L (137-145)
[2021-01-16 07:44] LABS: Glucose Point of Care 181 mg/dl (65-105)
[2021-01-16] MEDS: MEMANTINE 5 MG TABLET PO (09:08)
[2021-01-16] MEDS: LORATADINE 10 MG TABLET PO (09:08)
[2021-01-16] MEDS: ASPIRIN 81 MG ENTERIC TABLET PO (09:08)
[2021-01-16] MEDS: guaiFENesin 12 HR 600 MG TABCR PO (09:08)
--- NOTE | 2021-01-16 09:08 | PCPTNOTE ---
On 01/16/21, the student, Todd Nash, provided care and completed [facility] documentation on this patient. I have reviewed the student's documentation and agree with the findings.
[2021-01-16] MEDS: ENOXAPARIN 40 MG/0.4 ML SYRINGE SUB-Q (10:27)
[2021-01-16 10:39] VITALS: BP 101/53; PULSE 93; TEMP 36.4; O2SAT 97
[2021-01-16 10:43] VITALS: RESP 30
--- NOTE | 2021-01-16 11:09 | PM.DS ---
DS: Admitting Diagnosis Discharge Date 01/16/2021 Admitting Diagnosis Pneumonia DS: Discharge Diagnosis Discharge Diagnosis (1) Pneumonia: Qualifiers: Pneumonia type: due to unspecified organism Laterality: unspecified laterality Lung location: unspecified part of lung Qualified Code(s): J18.9 - Pneumonia, unspecified organism Code(s): J18.9 - Pneumonia, unspecified organism Status: Acute Assessment and Plan: CXR showed bibasilar airspace disease. He mild dyspnea presentation leukocytosis. He was treated with IV Rocephin azithromycin. Sputum culture not able to be obtained as he did not have productive cough. Legionella and pneumococcal antigens ordered but not collected. Preliminary blood cultures negative to date. He did not require supplemental oxygen. Supportive care provided including bronchodilators, expectorants, antipyretics, incentive spirometry, and PEP therapy. Continue p.o. Augmentin to complete a 7 day course and azithromycin to complete a 5 day course. (2) Diabetes mellitus: Code(s): E11.9 - Type 2 diabetes mellitus without complications Status: Acute Assessment and Plan: A1c is 7.3. Noted to have elevated blood sugars at home up to 330. Blood sugars monitor during hospital stay with Accu-Cheks, sliding scale insulin, hypoglycemic protocol. Blood sugars were well controlled. Continue with home glipizide. Diabetic diet reinforced. Encouraged to monitor blood sugars at home 3 times daily with meals and record for review by PCP. (3) Dementia: Code(s): F03.90 - Unspecified dementia without behavioral disturbance Status: Acute Assessment and Plan: He is oriented to self only but answered all questions appropriately. Appears to be consistent with his baseline. Continue memantine (4) Hypothyroid: Code(s): E03.9 - Hypothyroidism, unspecified Status: Acute Assessment and Plan: Continue levothyroxine 75 mcg daily. (5) Acute kidney injury: Code(s): N17.9 - Acute kidney failure, unspecified Status: Acute Assessment and Plan: Resolved. Likely prerenal secondary to dehydration given improvement with IV fluids. DS: Summary Hospital Course Hospital Course: Date of admission: 01/14/2021 Date of discharge: 01/16/2021 Mk Sanches is an 85-year-old male with a history of dementia, diabetes mellitus, hypertension, hypothyroidism who presented to the emergency department on 01/14/2021 by his daughter who was concerned that his blood sugar was elevated and he was weak. On presentation to the ED, he was mildly tachycardic with additional vital signs stable, [place] [id number], additional CBC unremarkable, BUN 31, creatinine 1.6, glucose 192, additional electrolytes stable, lactic 1.7, UA without concerns for infection, CXR showed bibasilar airspace disease, and head CT showed no acute intracranial findings. He was admitted to the hospitalist service for further evaluation and management. Please see above for further details. He was treated for pneumonia and had symptomatic improvement. He was doing better and was felt to be stable for discharge and to no longer require inpatient care. I spoke with his daughter, whom he lives with, via phone to discuss his plan of care, as well as worrisome signs and symptoms for which to return. Educated her on his medications. The patient was discharged in hemodynamically stable condition on 01/16/2021. Status at Discharge Overall status at discharge: patient is progressing back to baseline Time Spent with Patient Time attestation: Total time spent providing and/or coordinating discharge services: 45 minutes Time spent: Greater than 30 minutes Exam Narrative: Mr. Sanches is a well-nourished, well-appearing 85-year-old male who is sitting up in a chair by the bedside. He appears comfortable and is in NARD. Neuro: awake, alert and oriented t
[2021-01-16 11:50] LABS: Glucose Point of Care 335 mg/dl (65-105)
[2021-01-16] MEDS: INSULIN ASPART (*BKC) 100 UNITS/ML SUB-Q (12:33)
--- NOTE | 2021-01-16 14:30 | PC.NURSE ---
On 01/16/21, the student, Alix BOWEN, provided care and [facility]. I have reviewed the student's documentation and agree with the findings.
== END 2021-01-16 15:50 | disposition home or self-care (01) ==
LOC: ANHED 23:11 → ANH3MEDSUR 01-15 00:53
PROVIDERS: Physician Assistant; Admitting Provider Internal Medicine; Emergency Provider Emergency Medicine; Visit Provider Internal Medicine
DX: J18.9 Pneumonia, unspecified organism (principal); R53.1 Weakness; N17.9 Acute kidney failure, unspecified; E03.9 Hypothyroidism, unspecified; E11.9 Type 2 diabetes mellitus without complications; F03.90 Unspecified dementia, unspecified severity, without behavioral disturbance, psychotic disturbance, mood disturbance, and anxiety; I10 Essential (primary) hypertension; Z87.891 Personal history of nicotine dependence; Z79.84 Long term (current) use of oral hypoglycemic drugs
CPT/HCPCS: 36415; 70450; 71045; 80048; 81001; 82948; 83036; 83605; 83735; 84484; 85025; 85610; 85730; 87040; 93005; 94640; 96361; 96365; 96366; 96368; 96372; 97161; 97165; 99285; A9270; G0378; J0456; J0696; J1650; J1815; J7120

== ENCOUNTER 2021-01-20 15:48 | Emergency (ER) | payer MEDICARE, SELFPAY ==
--- NOTE | ~2021-01-20 | US_ITS ---
US venous doppler LE RT DATE: 01/20/2021 17:16 INDICATION: Right foot erythema TECHNIQUE: Real-time and color flow imaging and Doppler analysis of the veins of the right lower extr emity COMPARISON: None FINDINGS: There is spontaneous and phasic flow and normal augmentation and color flow signal and norm al compression of the deep veins of the right lower extremity. IMPRESSION: No evidence of deep venous thrombosis of the right leg Reviewed, dictated and finalized at Location [facility]. Reviewed, dictated and finalized at location A.
--- NOTE | ~2021-01-20 | XR_ITS ---
EXAMINATION: XR ankle RT min 3V, XR foot RT min 3V EXAM DATE: 01/20/2021 16:54 INDICATION: hx of ankle fracture with right ankle, foot redness. TECHNIQUE: Right foot dorsoplantar, lateral and oblique projections obtained and reviewed. Right ank le frontal, lateral and oblique projections obtained and reviewed. Comparison is made to prior examin ation from 10/04/2019. FINDINGS: There is a screw in the right medial malleolus bridging an old fracture which has healed. T here is evidence of multiple prior bilateral malleolar avulsion fractures. 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 There are arterial calcifications, arteriosclerosis. Moderate size inferior calcaneal spur. There is moderate right ankle osteoarthritis, could be combin ation of primary arthritis and secondary to prior injuries. There are no bony erosions identified. Co mpared to prior study difficult to appreciate significant interval change. IMPRESSION: 1. No acute right ankle or foot findings. 2. Advanced right mid foot, moderate ankle osteoarthritis. Reviewed, dictated and finalized at location A. IMPRESSION: 1. No acute right ankle or foot findings. 2. Advanced right mid foot, moderate ankle osteoarthritis.
[2021-01-20 15:59] VITALS: BP 139/72; PULSE 81; RESP 20; TEMP 36.3; O2SAT 100
--- NOTE | 2021-01-20 16:28 | ED.GENADULT ---
HPI - General Adult General Chief complaint: Skin/Abscess/Foreign Body Stated complaint: Right Foot Injury Time Seen by Provider: 01/20/21 16:06 Source: patient and family Mode of arrival: wheelchair Limitations: dementia History of Present Illness HPI narrative: Patient brought in by his daughter with reports of redness to the right foot, that she first noticed today. Patient was admitted here last week after he presented to the emergency department with complaints of weakness and hyperglycemia. In the emergency department he was tachycardic and white blood cell count was 13,000. Chest x-ray showed bibasilar airspace disease and CT head showed no acute intracranial findings. He was treated for pneumonia with IV antibiotics and was converted to oral therapy, which he is still taking as directed at home. Daughter states that on Wednesday of last week, pt intentionally pulled nail plate off the 3rd digit of the right foot. At the time, pt told his daughter that he did so because it was itching. He had some bleeding at that time but this was controlled rather quickly. Today, pt had a follow up appt with his PCP from his recent hospitalization. PCP recommended he come to ER for further evaluation of redness to right foot. Pt has not had any fever, nausea, or vomiting. He did have some chills yesterday. He denies any respiratory symptoms at present time. Pt has underlying dementia and his baseline functional status is ambulatory with walker. Pt denies pain in affected foot at this time. Of note, he does have a remote hx of ankle fracture. Daughter believes that pt has had gout in the past. Pt BS have been variable since his hospital discharge, with readings between 140-240. Normal BS range for pt is 140-170. Related Data Home Medications Medication Instructions Recorded Confirmed glipizide 5 mg PO QAM 10/04/19 01/15/21 levothyroxine 75 mcg PO DAILY 10/04/19 01/15/21 loratadine 10 mg PO DAILY 10/04/19 01/15/21 memantine 5 mg PO BID 10/04/19 01/15/21 aspirin [Adult Low Dose Aspirin] 81 mg PO DAILY 11/01/19 01/15/21 Allergies Allergy/AdvReac Type Severity Reaction Status Date / Time No Known Allergies Allergy Verified 01/20/21 16:02 Review of Systems Review of Systems: CONSTITUTIONAL: Reports chills. Denies fever, or sweats. EYES: Denies visual changes, redness, or discharge. ENT: Denies rhinorrhea, congestion, sore throat, or otalgia. CARDIOVASCULAR: Denies chest pain, palpitations, or edema. RESPIRATORY: Denies cough or dyspnea. GASTROINTESTINAL: Denies abdominal pain, nausea, vomiting, or diarrhea. GENITOURINARY: Denies dysuria or hematuria. SKIN: Reports redness to right foot MUSCULOSKELETAL: Denies back pain, joint pain, or myalgia. NEUROLOGIC: Denies headache, numbness, dizziness, or weakness. PSYCHIATRIC: Denies anxiety or depression. [facility] Past Medical History Medical History Dementia Depression Diabetes mellitus Hypertension Hypothyroid Surgical History Surgical History History of bilateral cataract extraction Hx of foot surgery Family History Family History Other Unknown family medical history Social History Social History Social History: Primary care physician: Dr. Rosana Solo Code status: DNR/DNI Smoking status: Former smoker Smokeless tobacco user: chewing tobacco Alcohol intake: former Substance use: former Substance use type: does not use Additional living arrangements comments: He lives with his daughter. 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
[2021-01-20 17:00] LABS: Basophils Absolute Auto 0.1 K/mm3 (0.0-0.1); Basophils Percent Auto 0.7 % (0.2-1.2); Eosinophils Absolute Auto 0.1 K/mm3 (0-0.3); Eosinophils Percent Auto 1.4 % (0-4.4); Hematocrit 40.7 % (42.0-52.0); Hemoglobin 13.3 g/dL (14.0-18.0); Immature Granulocyte Absolute 0.12 K/mm3 (0.00-0.031); Immature Granulocyte Percent A 1.2 % (0-0.5); Lymphocytes Absolute Auto 1.11 K/mm3 (0.9-3.2); Lymphocytes Percent Auto 11.4 % (18.3-44.2); Mean Corpuscular HGB Conc 32.7 g/dl (32-36); Mean Corpuscular Hemoglobin 31.3 pg (26-34); Mean Corpuscular Volume 95.8 fl (80-100); Mean Platelet Volume 10.5 fl (7.4-10.4); Monocytes Absolute Auto 1.1 K/mm3 (0.1-0.6); Monocytes Percent Auto 11.1 % (2.6-8.5); Neutrophils Absolute Auto 7.2 K/mm3 (1.3-6.7); Neutrophils Percent Auto 74.2 % (45.5-73.1); Platelet Count Result 324 k/mm3 (150-375); Red Blood Count 4.25 M/mm3 (4.6-6.20); Red Cell Distribution Width 14.1 % (11.5-14.5); White Blood Count 9.7 K/mm3 (4.5-10.0)
[2021-01-20 17:09] LABS: Partial Thromboplastin Time 30.9 SECONDS (22.3-36.8); Prothrombin Time 13.2 Seconds (11.1-14.7)
[2021-01-20 17:14] LABS: Alanine Aminotransferase 22 U/L (4-50); Albumin Level 3.5 g/dL (3.5-5.1); Alkaline Phosphatase 81 U/L (38-126); Anion Gap 9 mmol/L (8-16); Aspartate Amino Transferase 24 U/L (17-59); Bilirubin,Total 0.6 mg/dL (0.2-1.3); Blood Urea Nitrogen 14 mg/dL (9-20); CRP 8.3 mg/dL (<1.0); Calcium 9.1 mg/dL (8.4-10.2); Carbon Dioxide 27 mmol/L (22-30); Chloride 99 mmol/L (98-107); Estimated CRCL calculation 42 ml/min; Estimated Glomerular Filt Rate 58; Glucose 193 mg/dL (65-110); Potassium 4.6 mmol/L (3.4-5.0); Sodium 135 mmol/L (137-145); Uric Acid 6.3 mg/dL (3.5-8.5)
[2021-01-20 17:48] LABS: Erythrocyte Sedimentation Rate 37 mm/hr (0-20)
== END 2021-01-20 18:16 | disposition home or self-care (01) ==
PROVIDERS: Emergency Provider Nurse Practitioner
DX: L03.115 Cellulitis of right lower limb (principal); F03.90 Unspecified dementia, unspecified severity, without behavioral disturbance, psychotic disturbance, mood disturbance, and anxiety; E11.9 Type 2 diabetes mellitus without complications; I10 Essential (primary) hypertension; R60.0 Localized edema; E03.9 Hypothyroidism, unspecified; Z98.42 Cataract extraction status, left eye; Z98.41 Cataract extraction status, right eye; Z79.84 Long term (current) use of oral hypoglycemic drugs; Z79.82 Long term (current) use of aspirin; Z66 Do not resuscitate; Z87.891 Personal history of nicotine dependence; M19.071 Primary osteoarthritis, right ankle and foot
CPT/HCPCS: 36415; 73610; 73630; 80053; 84550; 85025; 85610; 85652; 85730; 86140; 93971; 99284

== ENCOUNTER 2021-02-08 13:48 | Emergency (ER) | payer MEDICARE, SELFPAY ==
--- NOTE | ~2021-02-08 | CT_ITS ---
EXAMINATION: CT abdomen pelvis wo con EXAM DATE: 02/08/2021 16:05 INDICATION: Right flank pain TECHNIQUE: Spiral CT of the abdomen and pelvis was performed without contrast. Axial, coronal and s agittal images of the abdomen and pelvis were reviewed. The dose-length product (DLP) for this exami nation was 647.62 mGy-cm. The exposure was tailored according to patient size (auto mA exposure cont rol), and iterative reconstruction (ASIR) was used as additional dose reduction technique. There is no prior study for comparison. FINDINGS: The liver, spleen, adrenal glands and pancreas are unremarkable. Gallbladder is unremarkab le. No biliary obstruction. There is no nephrolithiasis or hydronephrosis. Mild prostatomegaly. The bladder is distended but otherwise unremarkable. There is no retroperitoneal or pelvic lymphaden opathy. There is mild scattered arteriosclerotic disease. The appendix is normal. The stomach and small bowel are unremarkable. There is moderate amount of c olonic stool. There is moderate sigmoid predominant colonic diverticulosis. There is no adjacent inf lammatory change to suggest diverticulitis. No free intraperitoneal gas. The heart is normal in si ze. There are no pericardial or pleural effusions. Right basilar segmental atelectasis. 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 Mild to moderate thoracolumbar scoliosis. Large endplate osteophyt es thoracolumbar spine. There are no osteoblastic or osteolytic lesions identified. IMPRESSION: 1. Moderate amount of colonic stool. 2. Moderate sigmoid diverticulosis. 3. Distended bladder. 4. No acute findings. Reviewed, dictated and finalized at location A. IALTY THERAPIST
[2021-02-08 14:11] VITALS: BP 100/65; PULSE 96; RESP 18; TEMP 36.6; O2SAT 100
--- NOTE | 2021-02-08 16:31 | ED.BACK ---
HPI - Back Pain/Injury General Chief Complaint: Back Pain/Injury Stated Complaint: back pain Time Seen by Provider: 02/08/21 15:45 Source: patient Mode of arrival: wheelchair Limitations: no limitations History of Present Illness HPI Narrative: Patient is an 85-year-old male complaining of right lower back pain, was 8 out of 10, currently at 4 out of 10, sharp, nonradiating started yesterday. Patient states that the pain is worse with movement. Patient denies any weakness, incontinence, urinary symptoms, fever or chills. Patient denies any chest pain, shortness of breath or abdominal pain. Related Data Home Medications Medication Instructions Recorded Confirmed glipizide 5 mg PO QAM 10/04/19 01/15/21 levothyroxine 75 mcg PO DAILY 10/04/19 01/15/21 loratadine 10 mg PO DAILY 10/04/19 01/15/21 memantine 5 mg PO BID 10/04/19 01/15/21 aspirin [Adult Low Dose Aspirin] 81 mg PO DAILY 11/01/19 01/15/21 Allergies Allergy/AdvReac Type Severity Reaction Status Date / Time ibuprofen Allergy Rash Verified 02/08/21 16:53 Sulfa (Sulfonamide Allergy Rash Verified 02/08/21 16:53 Antibiotics) Review of Systems Review of Systems: All systems reviewed & are unremarkable except as noted in HPI and below Constitutional: Constitutional: Denies body ache(s), Denies chills, Denies excessive sweating, Denies fatigue, Denies fever(s), Denies headache(s), Denies lethargy, Denies malaise, Denies weakness and Denies weight loss Eyes: Eyes: Denies blurry vision, Denies change in vision and Denies loss of vision ENT: Denies dizziness, Denies ear discharge, Denies headache(s), Denies lip swelling, Denies epistaxis, Denies nasal congestion, Denies neck pain, Denies throat swelling and Denies tongue swelling Cardiovascular: Cardiovascular: Denies chest pain, Denies chest pain at rest, Denies chest pain with activity, Denies diaphoresis, Denies rapid heart rate, Denies edema, Denies irregular heart rhythm, Denies lightheadedness, Denies palpitations, Denies dyspnea and Denies dyspnea on exertion Respiratory: Respiratory: Denies chest congestion, Denies cough, Denies hemoptysis, Denies dyspnea and Denies dyspnea on exertion Gastrointestinal: Gastrointestinal: Denies abdominal pain, Denies melena, Denies hematochezia, Denies diarrhea, Denies nausea, Denies vomiting and Denies hematemesis Musculoskeletal: Musculoskeletal: Denies abnormal gait, Denies deformity, Denies joint swelling, Denies limited range of motion, Denies neck pain and Denies numbness Neurologic: Denies Abnormal speech present, Denies confusion, Denies dizziness, Denies headache(s), Denies focal weakness, Denies loss of vision, Denies numbness, Denies Other visual disturbances, Denies Sensory deficit (Neuro) and Denies weakness Psychiatric: Psychiatric: Denies confusion, Denies depression, Denies auditory hallucinations, Denies homicidal ideation and Denies suicidal ideation Endocrine: Endocrine: Denies cold intolerance, Denies excessive sweating, Denies fatigue, Denies heat intolerance and Denies palpitations Hematologic/Lymphatic: Hematologic/Lymphatic: Denies easy bleeding and Denies easy bruising Allergic/Immunologic: Allergic/Immunologic: Denies lip swelling, Denies throat swelling and Denies tongue swelling PMFSH Past Medical History Medical History Dementia Depression Diabetes mellitus Hypertension Hypothyroid Surgical History Surgical History History of bilateral cataract extraction Hx of foot surgery Family History Family History Other Unknown family medical history Social History Social History Social History: Primary care physician: Dr. Rosana Solo Code status: DNR/DNI Smoking status: Former smoker Smokeless tobacco user: chewi
[2021-02-08 16:46] LABS: Add Urine Microscopic? YES; Appearance Urine Clear (Clear); Bilirubin Urine Negative (Negative); Blood Urine Negative (Negative); Color Urine Yellow (Yellow); Glucose Urine UA Negative (Negative); Ketones Urine Trace mg/dL (Negative); Leukocyte Esterase Ur Negative LEU/UL (Negative); Mucus Urine Rare /lpf; Nitrate Urine Negative (Negative); Protein Urine Negative (Negative); Specific Grav Ur 1.011 (1.001-1.035); Urobilinogen Urine Negative mg/dL (<2.0); WBC Urine 0-3 /hpf
[2021-02-08 18:11] VITALS: BP 107/73; PULSE 125; RESP 18; TEMP 37; O2SAT 95
== END 2021-02-08 18:14 | disposition home or self-care (01) ==
PROVIDERS: Emergency Provider Emergency Medicine
DX: S39.012A Strain of muscle, fascia and tendon of lower back, initial encounter (principal); F03.90 Unspecified dementia, unspecified severity, without behavioral disturbance, psychotic disturbance, mood disturbance, and anxiety; E11.9 Type 2 diabetes mellitus without complications; I10 Essential (primary) hypertension; E03.9 Hypothyroidism, unspecified; Z79.82 Long term (current) use of aspirin; Z98.42 Cataract extraction status, left eye; Z98.41 Cataract extraction status, right eye; Z66 Do not resuscitate; Z87.891 Personal history of nicotine dependence; X58.XXXA Exposure to other specified factors, initial encounter; Z79.84 Long term (current) use of oral hypoglycemic drugs
CPT/HCPCS: 74176; 81001; 99284

== ENCOUNTER 2021-03-31 15:24 | Emergency (ER) | payer MEDICARE, SELFPAY ==
--- NOTE | ~2021-03-31 | XR_ITS ---
EXAMINATION: XR wrist RT 2V INDICATION: Right wrist pain TECHNIQUE: Two views of the right wrist are obtained. COMPARISON: None available FINDINGS: There is ventral soft tissue swelling overlying the distal forearm. No acute fracture is id entified. There appears to be chronic impaction of the distal ulna on the distal radius with remodeli ng of the distal radius at the radial ulnar joint. 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 Calcified atherosclerosis is noted. IMPRESSION: 1. Soft tissue swelling without acute osseous abnormality identified. Reviewed, dictated and finalized at location F. E BALANCER
[2021-03-31 15:35] VITALS: BP 116/66; PULSE 88; RESP 18; TEMP 35.9; O2SAT 96
[2021-03-31 17:59] VITALS: BP 110/74; PULSE 101; RESP 17; TEMP 36.6; O2SAT 100
--- NOTE | 2021-03-31 18:35 | ED.UPPEXIN ---
HPI - Extremity Injury (Upper) General Chief Complaint: Extremity Injury, Upper <STEF Uriarte Last Filed: 03/31/21 21:01> Stated Complaint: wrist swelling <STEF Uriarte Last Filed: 03/31/21 21:01> Time Seen by Provider: 03/31/21 18:07 <STEF Uriarte Last Filed: 03/31/21 21:01> Source: patient and family <STEF Uriarte Last Filed: 03/31/21 21:01> Mode of arrival: wheelchair <STEF Uriarte Last Filed: 03/31/21 21:01> Limitations: dementia <STEF Uriarte Last Filed: 03/31/21 21:01> History of Present Illness HPI narrative: This is a 85 year old male that presents to the ER for swelling and pain to the right wrist present over the last couple of days. Patient's daughter reports he was complaining about right wrist pain 2 days ago. Reports yesterday she noticed an area of swelling to the wrist. Patient reports decreased ROM due to pain. Denies fever, erythema or numbness. <STEF Uriarte Last Filed: 03/31/21 21:01> Related Data Home Medications: Home Medications Medication Instructions Recorded Confirmed glipizide 5 mg PO QAM 10/04/19 01/15/21 levothyroxine 75 mcg PO DAILY 10/04/19 01/15/21 loratadine 10 mg PO DAILY 10/04/19 01/15/21 memantine 5 mg PO BID 10/04/19 01/15/21 aspirin [Adult Low Dose Aspirin] 81 mg PO DAILY 11/01/19 01/15/21 <STEF Uriarte Last Filed: 03/31/21 21:01> Allergies/Adverse Reactions: Allergies Allergy/AdvReac Type Severity Reaction Status Date / Time ibuprofen Allergy Rash Verified 02/08/21 16:53 Sulfa (Sulfonamide Allergy Rash Verified 02/08/21 16:53 Antibiotics) <STEF Uriarte Last Filed: 03/31/21 21:01> Review of Systems Review of Systems: CONSTITUTIONAL: Denies fever SKIN: Denies rash MUSCULOSKELETAL: Reports joint pain, and myalgia. NEUROLOGIC: Denies numbness <Elham Perea PA-C - Last Filed: 03/31/21 21:01> All systems reviewed & are unremarkable except as noted in HPI and below <Elham Perea PA-C - Last Filed: 03/31/21 21:01> PMFSH Past Medical History Medical History: Medical History Dementia Depression Diabetes mellitus Hypertension Hypothyroid <Elham Perea PA-C - Last Filed: 03/31/21 21:01> Surgical History Surgical History: Surgical History History of bilateral cataract extraction Hx of foot surgery <Elham Perea PA-C - Last Filed: 03/31/21 21:01> Family History Family History: Family History Other Unknown family medical history <Elham Perea PA-C - Last Filed: 03/31/21 21:01> Social History Social History: Social History Social History: Primary care physician: Dr. Rosana Solo Code status: DNR/DNI Smoking status: Former smoker Smokeless tobacco user: chewing tobacco Alcohol intake: former Substance use: former Substance use type: does not use Additional living arrangements comments: He lives with his daughter. Additional occupation/education comments: [employer] Gender identity (if verbalized by the patient): Male Spiritual care concerns: No <STEF Uriarte Last Filed: 03/31/21 21:01> Exam Narrative: GENERAL: Well-appearing, well-nourished, and in no acute distress. HEAD: Normocephalic, atraumatic. EYES: EOMI. EXTREMITIES: Normal range of motion. Mildly decreased active ROM in the right wrist due to pain. No erythema or warmth. 4cm circular area of swelling to the right wrist volar surface, mildly tender to palpation. Normal radial pulses. Normal sensation SKIN: Warm, dry, no rash. NEURO: No focal deficits. Alert and oriented x3. PSYCH: Normal mood and affect <Elham Perea PA-C - Last Filed: 0
[2021-03-31 19:29] LABS: Basophils Absolute Auto 0.1 K/mm3 (0.0-0.1); Basophils Percent Auto 0.9 % (0.2-1.2); Eosinophils Absolute Auto 0.2 K/mm3 (0-0.3); Eosinophils Percent Auto 2.9 % (0-4.4); Hemoglobin 14.5 g/dL (14.0-18.0); Immature Granulocyte Absolute 0.01 K/mm3 (0.00-0.031); Immature Granulocyte Percent A 0.2 % (0-0.5); Lymphocytes Percent Auto 24.8 % (18.3-44.2); Mean Corpuscular Hemoglobin 30.8 pg (26-34); Mean Corpuscular Volume 93.4 fl (80-100); Mean Platelet Volume 11.2 fl (7.4-10.4); Monocytes Absolute Auto 0.7 K/mm3 (0.1-0.6); Neutrophils Absolute Auto 3.9 K/mm3 (1.3-6.7); Neutrophils Percent Auto 60.2 % (45.5-73.1); Platelet Count Result 220 k/mm3 (150-375); Red Blood Count 4.71 M/mm3 (4.6-6.20); Red Cell Distribution Width 15.1 % (11.5-14.5); White Blood Count 6.5 K/mm3 (4.5-10.0)
[2021-03-31 19:42] LABS: Anion Gap 9 mmol/L (8-16); Blood Urea Nitrogen 25 mg/dL (9-20); Calcium 9.3 mg/dL (8.4-10.2); Carbon Dioxide 25 mmol/L (22-30); Chloride 104 mmol/L (98-107); Estimated CRCL calculation 39 ml/min; Estimated Glomerular Filt Rate 53; Glucose 138 mg/dL (65-110); Potassium 4.6 mmol/L (3.4-5.0); Sodium 138 mmol/L (137-145)
[2021-03-31 20:30] LABS: Erythrocyte Sedimentation Rate 21 mm/hr (0-20)
[2021-03-31 21:31] VITALS: BP 120/72; PULSE 62; RESP 18; O2SAT 99
== END 2021-03-31 21:33 | disposition home or self-care (01) ==
PROVIDERS: Physician Assistant; Emergency Provider Emergency Medicine
DX: M79.89 Other specified soft tissue disorders (principal); F03.90 Unspecified dementia, unspecified severity, without behavioral disturbance, psychotic disturbance, mood disturbance, and anxiety; E11.9 Type 2 diabetes mellitus without complications; I10 Essential (primary) hypertension; E03.9 Hypothyroidism, unspecified; F32.A Depression, unspecified; Z79.82 Long term (current) use of aspirin; Z79.84 Long term (current) use of oral hypoglycemic drugs; Z98.42 Cataract extraction status, left eye; Z98.41 Cataract extraction status, right eye; Z66 Do not resuscitate; Z87.891 Personal history of nicotine dependence
CPT/HCPCS: 36415; 73100; 80048; 85025; 85652; 86140; 99283

== ENCOUNTER 2021-04-01 08:45 | Outpatient (CLI) | payer MEDICARE, SELFPAY ==
--- NOTE | ~2021-04-01 | US_ITS ---
EXAMINATION: US soft tissue UE RT DATE: 04/01/2021 09:42 INDICATION: Swelling at the second digit of the right hand. TECHNIQUE: Multiple grayscale and Doppler ultrasound images of the region of swelling at the second a nd third metacarpophalangeal joints were obtained. COMPARISON: None FINDINGS: Osteoarthritis at the second and third metacarpophalangeal joints with marginal osteophytes at the he ads of the metacarpals. There is hypoechoic synovitis at both the second and third metacarpophalangea l joints. No abnormal masses or fluid collections identified. IMPRESSION: 1. Osteoarthritic changes with synovitis at the right second and third metacarpophalangeal joints. No abnormal masses or fluid collections identified. Reviewed, dictated and finalized at location A. ROPE SLING MAKER IMPRESSION: 1. Osteoarthritic changes with synovitis at the right second and third metacarp ophalangeal joints. No abnormal masses or fluid collections identified.
== END 2021-04-01 08:46 | disposition home or self-care (01) ==
PROVIDERS: Visit Provider Physician Assistant
DX: M79.89 Other specified soft tissue disorders (principal); M19.041 Primary osteoarthritis, right hand
CPT/HCPCS: 76882

== ENCOUNTER 2021-07-09 13:54 | Inpatient (IN) | payer MEDICARE, SELFPAY ==
[2021-07-09] VITALS (14 sets, daily range): BP systolic 106–131; BP diastolic 56–80; PULSE 83–103; RESP 13–35; TEMP 36.7–36.8; O2SAT 92–100
--- NOTE | ~2021-07-09 | US_ITS ---
EXAMINATION: US abdomen limited DATE: 07/09/2021 15:49 INDICATION: Acute cholecystitis. TECHNIQUE: Multiple grayscale and Doppler ultrasound images of the abdomen were obtained. COMPARISON: CT abdomen and pelvis 07/09/2021 FINDINGS: The pancreas is obscured by bowel gas. The liver is normal without focal lesion. There is n ormal flow in main portal vein. The gallbladder is normal in size and contains gallstones. Gallbladde r wall thickening is noted. There was no sonographic Leo sign. The common duct is normal and measu res 6 mm. IMPRESSION: 1. Cholelithiasis and gallbladder wall thickening, but no gallbladder distention or sonographic Nichole y sign. These findings are indeterminate for acute cholecystitis. Consider hepatobiliary scintigraphy . Reviewed, dictated and finalized at location B. IMPRESSION: 1. Cholelithiasis and gallbladder wall thickening, but no gallbladder distentio n or sonographic Leo sign. These findings are indeterminate for acute cholec ystitis. Consider hepatobiliary scintigraphy.
--- NOTE | ~2021-07-09 | CT_ITS ---
EXAMINATION: CT abdomen pelvis w con DATE: 07/09/2021 15:04 INDICATION: Generalized abdominal pain. TECHNIQUE: Computed tomography (CT) of the abdomen and pelvis was performed with 100 mL Omnipaque 350 intravenous contrast. Automated exposure control and iterative reconstruction technique were employe d. The dose-length product was 375.80 mGy-cm. COMPARISON: CT abdomen and pelvis 02/08/2021 FINDINGS: The visualized portions of the lung bases demonstrate mild atelectasis. No pleural effusion . The heart size is normal. There are coronary artery calcifications. No pericardial effusion. The li yuliya is normal. The gallbladder is normal in size. Gallbladder wall thickening is noted. There is fat stranding around the gallbladder. The spleen, pancreas, and adrenal glands are normal. There is mild atrophy of the kidneys. There are cysts in right kidney measuring up to 6 mm. The prostate is mildly enlarged. There is diverticulosis of the colon without evidence of diverticulitis. There are no dilat ed loops of bowel. The appendix is normal. There are no pathologically enlarged lymph nodes. There is no free intraperitoneal fluid. There is severe thoracic and lumbar spondylosis. IMPRESSION: 1. Gallbladder wall thickening and pericholecystic fat stranding suspicious for acute cholecystitis. Consider ultrasound or hepatobiliary scintigraphy. Reviewed, dictated and finalized at location B.
--- NOTE | 2021-07-09 14:09 | ED.ABDPAIN ---
HPI - Abdominal Pain General Chief Complaint: Abdominal Pain Stated Complaint: stomach pain Time Seen by Provider: 07/09/21 14:06 Source: patient and RN notes reviewed Mode of arrival: ambulatory Limitations: no limitations History of Present Illness HPI narrative: Patient is 86 years old white male, lives with his daughter who brought him to the emergency room because of abdominal pain started last night. Associated with nausea and intermittent vomiting. Patient did not eat today. Patient have history of dementia, unable to tell me the location of pain or what kind of pain. Patient is DNR, walks with a walker, no history of abdominal surgery. History of diabetes, hypothyroidism, no blood thinners, on baby aspirin, no history of smoking, drinking or using drugs. Related Data Home Medications Medication Instructions Recorded Confirmed glipizide 5 mg PO QAM 10/04/19 01/15/21 levothyroxine 75 mcg PO DAILY 10/04/19 01/15/21 loratadine 10 mg PO DAILY 10/04/19 01/15/21 memantine 5 mg PO BID 10/04/19 01/15/21 aspirin [Adult Low Dose Aspirin] 81 mg PO DAILY 11/01/19 01/15/21 Allergies Allergy/AdvReac Type Severity Reaction Status Date / Time ibuprofen Allergy Rash Verified 02/08/21 16:53 Sulfa (Sulfonamide Allergy Rash Verified 02/08/21 16:53 Antibiotics) Review of Systems Review of Systems: CONSTITUTIONAL: Denies fever, chills, or sweats. EYES: Denies visual changes, redness, or discharge. ENT: Denies rhinorrhea, congestion, sore throat, or otalgia. CARDIOVASCULAR: Denies chest pain, palpitations, or edema. RESPIRATORY: Denies cough or dyspnea. GASTROINTESTINAL: Abdominal pain, nausea and intermittent vomiting GENITOURINARY: Denies dysuria or hematuria. SKIN: Denies rash or itching. MUSCULOSKELETAL: Denies back pain, joint pain, or myalgia. NEUROLOGIC: Denies headache, numbness, or weakness. PSYCHIATRIC: Denies anxiety or depression. [facility] [place] Past Medical History Medical History Dementia Depression Diabetes mellitus Hypertension Hypothyroid Surgical History Surgical History History of bilateral cataract extraction Hx of foot surgery Family History Family History Other Unknown family medical history Social History Social History Social History: Primary care physician: Dr. Rosana Solo Code status: DNR/DNI Smoking status: Former smoker Smokeless tobacco user: chewing tobacco Alcohol intake: former Substance use: former Substance use type: does not use Additional living arrangements comments: He lives with his daughter. 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 Musculoskeletal: Normal range of motion, nontender back Neurologic: Alert and oriented to his name and age only Course Course Emergency Course: Stable Consultations Consultation #1: [place] Date: 07/09/21 Time: 15:58 Vital Signs Vital signs: Vital Signs Temperature 36.8 C 07/09/21 13
[2021-07-09 14:34] LABS: Basophils Absolute Auto 0.1 K/mm3 (0.0-0.1); Basophils Percent Auto 0.5 % (0.2-1.2); Eosinophils Percent Auto 0.1 % (0-4.4); Hematocrit 46.9 % (42.0-52.0); Hemoglobin 15.4 g/dL (14.0-18.0); Immature Granulocyte Absolute 0.08 K/mm3 (0.00-0.031); Immature Granulocyte Percent A 0.5 % (0-0.5); Lymphocytes Absolute Auto 1.03 K/mm3 (0.9-3.2); Lymphocytes Percent Auto 5.9 % (18.3-44.2); Mean Corpuscular HGB Conc 32.8 g/dl (32-36); Mean Corpuscular Hemoglobin 31.5 pg (26-34); Mean Corpuscular Volume 95.9 fl (80-100); Mean Platelet Volume 11.1 fl (7.4-10.4); Monocytes Absolute Auto 1.5 K/mm3 (0.1-0.6); Monocytes Percent Auto 8.7 % (2.6-8.5); Neutrophils Absolute Auto 14.7 K/mm3 (1.3-6.7); Neutrophils Percent Auto 84.3 % (45.5-73.1); Platelet Count Result 207 k/mm3 (150-375); Red Blood Count 4.89 M/mm3 (4.6-6.20); Red Cell Distribution Width 14.3 % (11.5-14.5); White Blood Count 17.4 K/mm3 (4.5-10.0)
[2021-07-09 14:45] LABS: Alanine Aminotransferase 16 U/L (4-50); Alkaline Phosphatase 76 U/L (38-126); Anion Gap 8 mmol/L (8-16); Aspartate Amino Transferase 24 U/L (17-59); Bilirubin,Total 0.9 mg/dL (0.2-1.3); Blood Urea Nitrogen 17 mg/dL (9-20); Calcium 8.7 mg/dL (8.4-10.2); Carbon Dioxide 26 mmol/L (22-30); Chloride 101 mmol/L (98-107); Estimated CRCL calculation 34 ml/min; Estimated Glomerular Filt Rate 48; Glucose 215 mg/dL (65-110); INR 1.2; Lipase 13 U/L (23-300); Potassium 4.2 mmol/L (3.4-5.0); Prothrombin Time 14.9 Seconds (11.1-14.7); Sodium 135 mmol/L (137-145)
[2021-07-09 14:46] LABS: Lactic Acid Reflex 2.4 mmol/L (0.7-2.1)
[2021-07-09] MEDS: SODIUM CHLORIDE 0.9% IV 1,000 ML 999 ML IV CONT (15:08)
--- NOTE | 2021-07-09 16:18 | PM.CNGS ---
Assessment and Plan Assessment and plan (1) Acute cholecystitis: Code(s): K81.0 - Acute cholecystitis Status: Acute Assessment and Plan: CT reviewed and discussed with patient and his daughter/POA. CT suggests acute cholecystitis. Although his abdominal exam is benign, it is concerning that his WBC count is 17,000. I discussed treatment options at length with his daughter, regarding conservative management with antibiotics and monitoring versus proceeding with surgery. We discussed risks of both. I discussed the details of a laparoscopic cholecystectomy, possible open, which would be done by Dr. Vera under general anesthesia. Description of the procedure, risks, benefits, expected outcomes, and expected recovery were discussed in detail. They would like to proceed with surgery. We would recommend to continue broad-spectrum IV antibiotics, IV fluids, and analgesics as needed. I will allow clear liquids tonight and make him NPO after midnight for surgery. Plan to take to the OR tomorrow for cholecystectomy. Thank you for allowing us to see the patient in consultation and we will continue to follow along with you. (2) Sepsis: Code(s): A41.9 - Sepsis, unspecified organism Status: Acute Assessment and Plan: Criteria met on admission with leukocytosis, tachycardia, and mildly elevated lactic acid. Likely secondary to acute cholecystitis. Heart rate is improved and his blood pressure is stable. Continue broad-spectrum IV antibiotics, IV fluids, and plan to go to OR tomorrow for cholecystectomy. Monitor labs. Will order blood cultures. (3) Acute kidney injury: Code(s): N17.9 - Acute kidney failure, unspecified Status: Acute Assessment and Plan: Continue IV fluids. Monitor labs. (4) Diabetes mellitus: Code(s): E11.9 - Type 2 diabetes mellitus without complications Status: Acute Assessment and Plan: Management per Hospitalist. (5) Dementia: Code(s): F03.90 - Unspecified dementia without behavioral disturbance Status: Acute Assessment and Plan: Dementia and his age can increase risks of confusion and prolonged effects of anesthesia with surgery, I discussed this with the patient and his daughter. (6) Hypothyroid: Code(s): E03.9 - Hypothyroidism, unspecified Status: Acute Assessment and Plan: Mangement per Hospitalist. Additional Plan I have discussed the patient's case and plan of care with Dr. Vera. History of Present Illness Consult details Consult date: 07/09/21 Reason for consult: other (Acute cholecystitis) Requesting physician: Karina Phillips MD Narrative: This is an 86-year-old male with a history of dementia, type 2 diabetes mellitus, and hypothyroidism who lives at home with his daughter and Cassie MCALLISTER. Due to his dementia, he is unable to provide history, therefore with his permission, his daughter provides his history. She states that two nights ago, he had eaten a meatloaf with sauce and vegetables for dinner. He seemed in his normal state of health when going to bed. She then went to wake him in the morning and he was complaining of mid upper abdominal pain. She states he tried drinking some water and coffee, and then vomited this back up. He decided them to go lay back down in bed around 11:00 am after taking his morning medication, and he has pretty much laid in bed since then until coming into the ER. This morning, she reports he was still complaining of abdominal pain but was pointing more to the RUQ. He had no more vomiting and has not eaten since Wednesday night. She had checked his temperature and denies any fever. Due to his persistent symptoms, she brought him into the ER for evaluation. Labs showed a WBC count of 17,000, lactic acid 2.4, creatinine 1.4, and glucose 215. The patient's daughter reports his blood sugars are typically well controlled at home until this morning when she checked it the meter read 100. CT scan o
[2021-07-09 16:20] LABS: Appearance Urine Clear (Clear); Bilirubin Urine Negative (Negative); Blood Urine Negative (Negative); Color Urine Yellow (Yellow); Glucose Urine UA Negative (Negative); Ketones Urine Negative (Negative); Leukocyte Esterase Ur Negative LEU/UL (Negative); Nitrate Urine Negative (Negative); Protein Urine Trace mg/dL (Negative); Specific Grav Ur 1.015 (1.001-1.035); Urobilinogen Urine 0.2 mg/dL (<2.0)
[2021-07-09 16:24] LABS: Mucus Urine Rare /lpf; RBC Urine 0-2 /hpf (0-2); Squamous Epithelial Cell Urine Rare /hpf (Few); WBC Urine 0-3 /hpf
[2021-07-09 16:31] LABS: Add Urine Microscopic? YES
--- NOTE | 2021-07-09 16:45 | PM.IMHP ---
H&P: HPI History of Present Illness Date/Time: 07/09/21 16:45 Chief Complaint: Abdominal pain. Narrative: This is an 86-year-old male with dementia, hypertension, hypothyroidism, and type 2 diabetes mellitus who presented to the emergency department from home for evaluation of abdominal pain. Given his dementia and acute illness, he is only a fair historian and as such some of the following is obtained via discussions with his daughter Cassie at bedside, with the patient's permission. Yesterday the patient complained of vague abdominal discomfort and in fact he only ate some crackers late yesterday morning and he retired to bed where he stayed until sometime this morning. Not long after waking he complained of abdominal pain once again, gesturing more towards the right abdomen, though he was unable to really qualify what he was feeling. He was brought in for evaluation and CT of the abdomen and pelvis and abdominal ultrasound both demonstrated gallbladder wall thickening and in the setting of leukocytosis he is being admitted for presumed acute cholecystitis. At the time my evaluation he was aware that he was at the hospital though did not recall why he was brought here. It is my understanding that he received morphine not long prior to my arrival to the room, and he has no pain on exam and he has no complaints currently. Specifically he denies fever, chills, sweats, current abdominal pain, chest pain, shortness a breath, nausea, and vomiting. Last bowel movement was several days ago and was reportedly unremarkable. Review of Systems Review of Systems: Twelve systems were reviewed but are limited given his dementia as he seems quite forgetful. He has not had any recent cold or flu symptoms and family members deny sick contacts. He denies chest pain shortness of breath. No dysuria. [facility] Past Medical History Medical History (Updated 07/09/21 @ 22:53 by Sara Davison PA-C) Chronic kidney disease, stage 3 Baseline creatinine between 1.2 and 1.30. GFR is typically in the high 40s or lower 50s. Dementia Depression Hypothyroidism Type 2 diabetes mellitus Surgical History Surgical History (Updated 07/09/21 @ 22:49 by Sara Davison PA-C) History of bilateral cataract extraction History of foot surgery Debridement of diabetic foot ulcer. Family History Family History Other Unknown family medical history Social History Social History (Updated 07/09/21 @ 22:50 by Sara Davison PA-C) Social History: Healthcare power of assistant county attorney: Cassie Granados, daughter. Code status: Full code. Smoking status: Never smoker Smokeless tobacco user: chewing tobacco Additional smoking assessment comments: Quit chewing tobacco in December 2020. Alcohol intake: never Substance use: never Substance use type: does not use Living arrangements: with family Additional living arrangements comments: Lives with his daughter Cassie in [place]. 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 Spiritual care concerns: No Meds Home Medications and Allergies Home Medications Medication Instructions Recorded Confirmed Type glipizide 5 mg PO BID 10/04/19 07/09/21 History levothyroxine 75 mcg PO DAILY 10/04/19 07/09/21 History loratadine 10 mg PO DAILY 10/04/19 07/09/21 History memantine 5 mg PO BID 10/04/19 07/09/21 History aspirin [Adult Low Dose Aspirin] 81 mg PO DAILY 11/01/19 07/09/21 History Allergies Allergy/AdvReac Type Severity Reaction Status Date / Time ibuprofen Allergy Rash Verified 07/09/21 17:30 Sulfa (Sulfonamide Allergy Rash Verified 07/09/21 17:30 Antibiotics) Vital Signs Vital Signs - 24 hr 07/09/21 13:59 07/09/21 14:15 07/09/21 14:16 Temperature 98.3 F Pulse Rate 103 H 98 102 H Respiratory Rate 33 H 35 H 34 H Blood Pressure 113/73 117/79 Pulse Oximetry 95 95 95 07/09/21 15:
--- NOTE | 2021-07-09 17:13 | ADMGEN ---
This patient, Mk Sanches, was admitted to 3 Medical Room 345-. Patient/family oriented to hospital policies and general routines including ID bracelet, bed and alarms, visiting hours, pain management, procedures, bathroom and other care routines, personal items, smoking policy, room service/diet, and visiting hours. Information on how to activate the Rapid Response Team has been discussed. Patient/Family are encouraged to report perceived risks to care and to ask questions if they do not understand what they are told or what they should do.
[2021-07-09] MEDS: LACTATED RINGERS 1,000 ML 125 ML IV CONT (17:26)
[2021-07-09 17:31] LABS: Reflex Lactic Acid Yes or No Add Lactic
[2021-07-09 18:18] LABS: Lactic Acid 2.3 mmol/L (0.7-2.1)
[2021-07-09 22:18] LABS: Glucose Point of Care 240 mg/dl (65-105)
[2021-07-10] VITALS (12 sets, daily range): BP systolic 94–151; BP diastolic 54–74; PULSE 61–94; RESP 16–20; TEMP 36.1–37.3; O2SAT 92–100
[2021-07-10] MEDS: LACTATED RINGERS 1,000 ML 75 ML IV CONT ×2 (01:28→18:52)
[2021-07-10] MEDS: LEVOTHYROXINE SODIUM 75 MCG TABLET PO (05:56)
[2021-07-10 05:59] LABS: Basophils Absolute Auto 0.1 K/mm3 (0.0-0.1); Basophils Percent Auto 0.5 % (0.2-1.2); Eosinophils Absolute Auto 0.1 K/mm3 (0-0.3); Eosinophils Percent Auto 0.8 % (0-4.4); Hematocrit 40.7 % (42.0-52.0); Hemoglobin 13.3 g/dL (14.0-18.0); Immature Granulocyte Absolute 0.08 K/mm3 (0.00-0.031); Immature Granulocyte Percent A 0.6 % (0-0.5); Lymphocytes Absolute Auto 1.25 K/mm3 (0.9-3.2); Lymphocytes Percent Auto 8.6 % (18.3-44.2); Mean Corpuscular HGB Conc 32.7 g/dl (32-36); Mean Corpuscular Hemoglobin 31.5 pg (26-34); Mean Corpuscular Volume 96.4 fl (80-100); Mean Platelet Volume 11.2 fl (7.4-10.4); Monocytes Absolute Auto 1.2 K/mm3 (0.1-0.6); Monocytes Percent Auto 8.5 % (2.6-8.5); Neutrophils Absolute Auto 11.8 K/mm3 (1.3-6.7); Platelet Count Result 188 k/mm3 (150-375); Red Blood Count 4.22 M/mm3 (4.6-6.20); Red Cell Distribution Width 14.3 % (11.5-14.5); White Blood Count 14.5 K/mm3 (4.5-10.0)
[2021-07-10 06:11] LABS: Anion Gap 8 mmol/L (8-16); Blood Urea Nitrogen 15 mg/dL (9-20); Carbon Dioxide 21 mmol/L (22-30); Chloride 104 mmol/L (98-107); Estimated CRCL calculation 41 ml/min; Estimated Glomerular Filt Rate 58; Glucose 158 mg/dL (65-110); Potassium 3.8 mmol/L (3.4-5.0); Sodium 133 mmol/L (137-145)
[2021-07-10 06:14] LABS: Hemoglobin A1C 6.4 % (<5.7)
[2021-07-10 06:18] LABS: Alanine Aminotransferase 12 U/L (4-50); Albumin Level 3.3 g/dL (3.5-5.1); Alkaline Phosphatase 57 U/L (38-126); Aspartate Amino Transferase 22 U/L (17-59); Bilirubin,Total 0.8 mg/dL (0.2-1.3); Magnesium 1.8 mg/dL (1.6-2.3)
[2021-07-10 06:25] LABS: Glucose Point of Care 155 mg/dl (65-105)
[2021-07-10 06:46] LABS: Lipase < 10 U/L (23-300)
[2021-07-10] MEDS: MEMANTINE 5 MG TABLET PO ×2 (08:12→18:51)
--- NOTE | 2021-07-10 10:20 | WPDHPUPDATE1 ---
History and Physical Update Update Date/Time: 07/10/21 10:20 History and Physical has been reviewed, including an updated exam of the patient. There are NO changes in the patient's condition. Risks, benefits, and alternatives have been discussed and questions answered. Patient agrees to proceed with procedure.
--- NOTE | 2021-07-10 10:40 | WPDANESEPPF ---
Anes - Initial Pre Proc Eval Procedure: Operation Date: 07/10/21 14:00 Proposed Procedures p Laparoscopic Cholecystectomy - Susana Vera MD Date/Time: 07/10/21 10:40 Surgeon: Bere Lynch PA-C Pre Op Diagnosis: Abdominal Pain, cholecystitis Patient Data Age: 86 Gender: M Height: 1.75 m Weight: 72.8 kg Last Vital Signs Temp 36.4 C L 07/10/21 06:00 Pulse 78 07/10/21 08:00 Resp 18 07/10/21 08:00 BP 112/67 07/10/21 06:00 Pulse Ox 94 07/10/21 08:00 Allergies Allergy/AdvReac Type Severity Reaction Status Date / Time ibuprofen Allergy Rash Verified 07/09/21 17:30 Sulfa (Sulfonamide Allergy Rash Verified 07/09/21 17:30 Antibiotics) Home Medications Medication Instructions Recorded Confirmed Type glipizide 5 mg PO BID 10/04/19 07/09/21 History levothyroxine 75 mcg PO DAILY 10/04/19 07/09/21 History loratadine 10 mg PO DAILY 10/04/19 07/09/21 History memantine 5 mg PO BID 10/04/19 07/09/21 History aspirin [Adult Low Dose Aspirin] 81 mg PO DAILY 11/01/19 07/09/21 History Laboratory Tests 07/09/21 07/09/21 07/09/21 14:25 14:25 14:25 WBC 17.4 K/mm3 H K/mm3 (4.5-10.0) RBC 4.89 M/mm3 M/mm3 (4.6-6.20) Hgb 15.4 g/dL g/dL (14.0-18.0) Hct 46.9 % % (42.0-52.0) MCV 95.9 fl fl (80-100) MCH 31.5 pg pg (26-34) MCHC 32.8 g/dl g/dl (32-36) RDW 14.3 % % (11.5-14.5) Plt Count 207 k/mm3 k/mm3 (150-375) MPV 11.1 fl H fl (7.4-10.4) Immature Gran % (Auto) 0.5 % % (0-0.5) Neut % (Auto) 84.3 % H % (45.5-73.1) Lymph % (Auto) 5.9 % L % (18.3-44.2) [place] % (Auto) 8.7 % H % (2.6-8.5) Eos % (Auto) 0.1 % % (0-4.4) Baso % (Auto) 0.5 % % (0.2-1.2) Lymph # (Auto) 1.03 K/mm3 K/mm3 (0.9-3.2) [place] # (Auto) 1.5 K/mm3 H K/mm3 (0.1-0.6) Eos # (Auto) 0.0 K/mm3 K/mm3 (0-0.3) Baso # (Auto) 0.1 K/mm3 K/mm3 (0.0-0.1) Abs Immat Gran (auto) 0.08 K/mm3 H K/mm3 (0.00-0.031) Absolute Neuts (auto) 14.7 K/mm3 H K/mm3 (1.3-6.7) Absolute Nucleated RBC 0.0 K/mm3 K/mm3 (0.0-0.012) Nucleated RBC % 0.0 % % (0.0-0.2) PT 14.9 Seconds H Seconds (11.1-14.7) INR 1.2 APTT 32.0 SECONDS SECONDS (22.3-36.8) Sodium 135 mmol/L L mmol/L (137-145) Potassium 4.2 mmol/L mmol/L (3.4-5.0) Chloride 101 mmol/L mmol/L (98-107) Carbon Dioxide 26 mmol/L mmol/L (22-30) Anion Gap 8 mmol/L mmol/L (8-16) BUN 17 mg/dL mg/dL (9-20) Creatinine 1.40 mg/dL H mg/dL (0.7-1.3) Estim Creat Clear Calc 34 ml/min ml/min Estimated GFR 48 L (59 - ) Glucose 215 mg/dL H mg/dL (65-110) POC Capillary Glucose Hemoglobin A1c Lactic Acid Calcium 8.7 mg/dL mg/dL (8.4-10.2) Magnesium Total Bilirubin 0.9 mg/dL mg/dL (0.2-1.3) Direct Bilirubin AST 24 U/L U/L (17-59) ALT 16 U/L U/L (4-50) Alkaline Phosphatase 76 U/L U/L (38-126) Total Protein 8.0 g/dL g/dL (6.3-8.2) Albumin 4.0 g/dL g/dL (3.5-5.1) Lipase 13 U/L L U/L (23-300) TSH (Reflex) Urine Color Urine Appearance Urine pH Ur Specific White Urine Protein Urine Glucose (UA) Urine Ketones Ur Blood (Man) Urine Nitrate Urine Bilirubin Urine Urobilinogen Leukocyte Esterase Rfl Urine RBC Urine WBC Ur Squamous Epith Cells Hyaline Casts Urine Mucus 07/09/21 07/09/21 07/09/21 14:25 16:09 18:02 WBC RBC
--- NOTE | 2021-07-10 10:52 | PM.IMPN ---
Progress Note: A&P Assessment and Plan (1) Sepsis: Code(s): A41.9 - Sepsis, unspecified organism Status: Acute Assessment and Plan: -Present on admission and supported by tachycardia, leukocytosis, and mildly elevated lactic acid level in the setting of acute cholecystitis. -Blood pressures are stable. -He is being adequately hydrated. -Repeat lactic acid level slightly downtrending -Blood cultures pending. (2) Acute cholecystitis: Code(s): K81.0 - Acute cholecystitis Status: Acute Assessment and Plan: -He has been started on Zosyn -cholecystectomy scheduled for 2pm (3) Dehydration: Code(s): E86.0 - Dehydration Status: Acute Assessment and Plan: -Creatinine was a bit elevated from baseline on arrival but has improved with IVF -Monitor daily BMP (4) Chronic kidney disease, stage 3: Code(s): N18.30 - Chronic kidney disease, stage 3 unspecified Status: Acute Assessment and Plan: -As above (5) Type 2 diabetes mellitus: Code(s): E11.9 - Type 2 diabetes mellitus without complications Status: Acute Assessment and Plan: -Hold glipizide while NPO. -Continue sliding scale insulin, Accu-Cheks, and hypoglycemic protocol. (6) Hypothyroidism: Code(s): E03.9 - Hypothyroidism, unspecified Status: Acute Assessment and Plan: -Continue levothyroxine -TSH WNL (7) Dementia: Code(s): F03.90 - Unspecified dementia without behavioral disturbance Status: Acute Assessment and Plan: -Family members report that he seems more confused than usual, likely due to infection. -Continue memantine. -Initiate fall precautions. Subjective Date/time seen: 07/10/21 10:52 Interval history: 86-year-old male with dementia, hypertension, hypothyroidism, and type 2 diabetes mellitus, admitted for acute cholecystitis. Pt is A/Ox1 today. Daughter at bedside. He is somnolent but arousable. Denies abdominal pain. Surgery scheduled for 2pm today. Review of Systems Review of Systems: ROS unobtainable: Yes unobtainable due to mental status Exam Narrative: General: NAD. He is mildly ill in appearance. Somnolent but easily arousable. HEENT: PERRL. Sclerae anicteric. Dry mucous membranes. Most teeth are missing. Neck: Supple. Respiratory: Lungs are clear to auscultation bilaterally. Cardiovascular: Regular rate and rhythm with S1-S2. Gastrointestinal: Abdomen is soft, nontender, and nondistended with positive bowel sounds. Skin: Warm and dry. Extremities: No cyanosis, clubbing, or edema. Neurological: Alert and oriented to self only. Speech is clear. Generalized weakness without focal findings. Psychiatric: Pleasantly confused and cooperative. Appropriate mood. Forgetful. Objective Data Vital Signs Vital Signs: Vital Signs - 24 hr 07/09/21 13:59 07/09/21 14:15 07/09/21 14:16 Temperature 98.3 F Pulse Rate 103 H 98 102 H Respiratory Rate 33 H 35 H 34 H Blood Pressure 113/73 117/79 Pulse Oximetry 95 95 95 07/09/21 15:15 07/09/21 15:45 07/09/21 16:00 Temperature Pulse Rate 92 86 85 Respiratory Rate 26 H 13 24 H Blood Pressure Pulse Oximetry 97 07/09/21 16:15 07/09/21 16:24 07/09/21 16:30 Temperature Pulse Rate 83 84 85 Respiratory Rate 31 H 19 24 H Blood Pressure 106/73 Pulse Oximetry 100 92 98 07/09/21 16:31 07/09/21 17:28 07/09/21 17:33 Temperature 98.2 F 98.2 F Pulse Rate 84 88 88 Respiratory Rate 26 H 18 18 Blood Pressure 130/80 122/56 L 122/56 L Pulse Oximetry 100 100 07/09/21 22:00 07/09/21 23:08 07/10/21 06:00 Temperature 98.1 F 97.5 F L Pulse Rate 84 78 Respiratory Rate 18 18 Blood Pressure 131/59 L 112/67 Pulse Oximetry 95 96 94 07/10/21 08:00 Temperature Pulse Rate 78 Respiratory Rate 18 Blood Pressure Pulse Oximetry 94 Intake/Output Intake/Output: Int
[2021-07-10 11:56] LABS: Glucose Point of Care 152 mg/dl (65-105)
--- NOTE | 2021-07-10 12:10 | PC.NURSE ---
Pt to surgery via bed accompanied per surgery staff.
[2021-07-10] MEDS: LACTATED RINGERS 1,000 ML 30 ML IV CONT (12:30)
[2021-07-10] MEDS: BUPIVACAINE/EPINEPHRINE 0.25% 10 ML VIAL 30 ML INFILTRATE (13:53)
--- NOTE | 2021-07-10 14:39 | W.PM.PROC2 ---
Procedure Note - Detailed Date of Procedure 07/10/21 Pre-op Diagnosis Acute cholecystitis Post-op Diagnosis Other ( acute gangrenous cholecystitis) Procedure Performed laparoscopic cholecystectomy Surgeon Susana Vera MD Anesthesia General Indications 86-year-old male presenting to the emergency department with acute cholecystitis Findings acute gangrenous cholecystitis, cholelithiasis Description of Procedure The patient was taken to the operating room placed in the supine position. After adequate induction of general anesthesia, the patient was prepped and draped in normal sterile fashion. A time-out was then performed to verify the patient's identity as well as the procedure being performed. I then made a 5 mm incision in the infraumbilical region. Through this, a Veress needle was placed into the peritoneal cavity and CO2 gas was then insufflated. After adequate pneumoperitoneum was achieved, the Veress needle was removed and a 5 mm optiview trocar was placed through this incision under direct visualization. I then placed the laparoscope through this trocar site and under direct visualization placed a further 12 mm subxiphoid port as well as 2 additional 5 mm ports in the right upper abdomen. The gallbladder was then identified and was noted to be very inflamed, distended, and full of gallstones. There was noted to be areas of gangrenous changes within the wall of the gallbladder. Given the amount of inflammation, I decompressed the gallbladder using an ovarian needle. I was then able to place a grasper at the dome of the gallbladder and this was retracted anterior and cephalad up over the liver. A 2nd retractor was then placed at the infundibulum and retracted laterally, this allowed visualization of the triangle of Calot. I then was able to visualize the cystic duct in its entirety from its proximal insertion into the gallbladder, to its distal junction with the common hepatic/common bile duct junction. It was noted that the patient had a short cystic duct. At this point, I carefully skeletonized the proximal cystic duct with the [place] dissector. I then clipped and transected the proximal cystic duct. Next I visualized the cystic artery. Again the artery was skeletonized, clipped, and transected. I then used the Bovie cautery to take down the peritoneal attachments of the gallbladder off the liver bed. This was diifficult given the amount of inflammation and necrosis in the posterior wall. Once the gallbladder specimen was completely detached, an endo-pouch was placed through the 12 mm port site. I then placed the gallbladder specimen into the Endo pouch and removed the endo-pouch from the 12 mm port site. The specimen will now be sent to pathology for further review. I then copiously irrigated the right upper quadrant. Hemostasis was noted in the liver bed, the clips were noted to be in good position on both the cystic duct stump and the cystic artery stump. No other pathology was noted in the right upper quadrant. I then moved the laparoscope to the subxiphoid port. No iatrogenic injury or other pathology was noted in the lower abdomen. I then closed the 12 mm trocar site under direct visualization using the Александр cone and 0 Vicryl suture. At this point, the abdomen was desufflated and all ports removed. All port sites were then closed with 4.O Monocryl subcuticular sutures. Dermabond was placed on each incision. The patient tolerated the procedure well, was extubated in the operating room postoperative and will be transferred to the recovery room in stable condition Estimated Blood Loss 20 Drains No Packing No Pathology Yes Complications No immediate complications Condition Stable Disposition PACU
[2021-07-10 15:13] LABS: Glucose Point of Care 179 mg/dl (65-105)
--- NOTE | 2021-07-10 15:59 | PC.NURSE ---
Pt returned to room from PACU. Resting comfortably with family at bedside. Incisions to ABD dry and intact with dermabond. Offers no complaints at this time.
[2021-07-10] MEDS: MORPHINE SULFATE (*CRX) 4 MG/ML INJ 2 MG IV PUSH (16:20)
[2021-07-10 16:37] LABS: Glucose Point of Care 179 mg/dl (65-105)
[2021-07-10 19:43] LABS: Glucose Point of Care 281 mg/dl (65-105)
[2021-07-10 23:28] LABS: Glucose Point of Care 257 mg/dl (65-105)
[2021-07-10] MEDS: INSULIN ASPART (*BKC) 100 UNITS/ML SUB-Q (23:29)
[2021-07-11] MEDS: LEVOTHYROXINE SODIUM 75 MCG TABLET PO (05:14)
[2021-07-11 05:22] LABS: Glucose Point of Care 239 mg/dl (65-105)
[2021-07-11] MEDS: INSULIN ASPART (*BKC) 100 UNITS/ML SUB-Q (05:23)
--- NOTE | 2021-07-11 06:27 | PC.NURSE ---
Pt has been on fluids (LR 100ml/hr) over night but did not have any urine out-put. Pt was bladder scanned and showed 844ml of retention. Straight cath ordered was given and performed. Out put of 750ml was obtained.
[2021-07-11 07:05] LABS: Basophils Percent Auto 0.1 % (0.2-1.2); Hematocrit 40.9 % (42.0-52.0); Hemoglobin 13.5 g/dL (14.0-18.0); Immature Granulocyte Absolute 0.08 K/mm3 (0.00-0.031); Immature Granulocyte Percent A 0.6 % (0-0.5); Lymphocytes Absolute Auto 0.71 K/mm3 (0.9-3.2); Lymphocytes Percent Auto 5.2 % (18.3-44.2); Mean Corpuscular Hemoglobin 31.8 pg (26-34); Mean Corpuscular Volume 96.2 fl (80-100); Mean Platelet Volume 10.8 fl (7.4-10.4); Monocytes Percent Auto 7.5 % (2.6-8.5); Neutrophils Absolute Auto 11.9 K/mm3 (1.3-6.7); Neutrophils Percent Auto 86.6 % (45.5-73.1); Platelet Count Result 189 k/mm3 (150-375); Red Blood Count 4.25 M/mm3 (4.6-6.20); Red Cell Distribution Width 14.3 % (11.5-14.5); White Blood Count 13.7 K/mm3 (4.5-10.0)
[2021-07-11 07:16] LABS: Alanine Aminotransferase 32 U/L (4-50); Albumin Level 3.1 g/dL (3.5-5.1); Alkaline Phosphatase 60 U/L (38-126); Anion Gap 6 mmol/L (8-16); Aspartate Amino Transferase 41 U/L (17-59); Bilirubin,Total 0.8 mg/dL (0.2-1.3); Blood Urea Nitrogen 12 mg/dL (9-20); Calcium 7.8 mg/dL (8.4-10.2); Carbon Dioxide 27 mmol/L (22-30); Chloride 100 mmol/L (98-107); Estimated CRCL calculation 35 ml/min; Estimated Glomerular Filt Rate 48; Glucose 228 mg/dL (65-110); Potassium 4.3 mmol/L (3.4-5.0); Sodium 133 mmol/L (137-145)
[2021-07-11 07:51] LABS: Glucose Point of Care 204 mg/dl (65-105)
[2021-07-11] MEDS: MEMANTINE 5 MG TABLET PO ×2 (08:20→17:27)
[2021-07-11] MEDS: LORATADINE 10 MG TABLET PO (08:20)
[2021-07-11] MEDS: LACTATED RINGERS 1,000 ML 75 ML IV CONT ×2 (08:21→20:20)
--- NOTE | 2021-07-11 08:53 | WPDANESPN ---
Anes - Prog Note Post-Op Date/Time: 07/11/21 08:53 Cardiovascular status: normal Respiratory status: normal Airway patency: baseline Mental status: baseline Post-Op hydration status: normal Vital Signs: Last Vital Signs Temp 99.0 F 07/10/21 18:01 Pulse 94 07/10/21 20:00 Resp 18 07/10/21 20:00 BP 112/74 07/10/21 18:01 Pulse Ox 93 07/10/21 20:00 Pain Score (VAS): 0 I/O: Intake & Output 07/10/21 07/11/21 07/11/21 23:59 07:59 15:59 Intake Total 125 805 3179 Output Total 750 Balance 220 -600 1120 Laboratory Tests 07/11/21 06:59 07/11/21 06:59 07/10/21 07/10/21 07/10/21 11:53 14:46 16:25 WBC RBC Hgb Hct MCV MCH MCHC RDW Plt Count MPV Immature Gran % (Auto) Neut % (Auto) Lymph % (Auto) [place] % (Auto) Eos % (Auto) Baso % (Auto) Lymph # (Auto) [place] # (Auto) Eos # (Auto) Baso # (Auto) Abs Immat Gran (auto) Absolute Neuts (auto) Absolute Nucleated RBC Nucleated RBC % Sodium Potassium Chloride Carbon Dioxide Anion Gap BUN Creatinine Estim Creat Clear Calc Estimated GFR Glucose POC Capillary Glucose 152 H 179 H 179 H Calcium Total Bilirubin AST ALT Alkaline Phosphatase Total Protein Albumin 07/10/21 07/10/21 07/11/21 19:31 23:26 05:11 WBC RBC Hgb Hct MCV MCH MCHC RDW Plt Count MPV Immature Gran % (Auto) Neut % (Auto) Lymph % (Auto) [place] % (Auto) Eos % (Auto) Baso % (Auto) Lymph # (Auto) [place] # (Auto) Eos # (Auto) Baso # (Auto) Abs Immat Gran (auto) Absolute Neuts (auto) Absolute Nucleated RBC Nucleated RBC % Sodium Potassium Chloride Carbon Dioxide Anion Gap BUN Creatinine Estim Creat Clear Calc Estimated GFR Glucose POC Capillary Glucose 281 H 257 H 239 H Calcium Total Bilirubin AST ALT Alkaline Phosphatase Total Protein Albumin 07/11/21 07/11/21 07/11/21 06:59 06:59 07:44 WBC 13.7 H RBC 4.25 L Hgb 13.5 L Hct 40.9 L MCV 96.2 MCH 31.8 MCHC 33.0 RDW 14.3 Plt Count 189 MPV 10.8 H Immature Gran % (Auto) 0.6 H Neut % (Auto) 86.6 H Lymph % (Auto) 5.2 L [place] % (Auto) 7.5 Eos % (Auto) 0.0 Baso % (Auto) 0.1 L Lymph # (Auto) 0.71 L [place] # (Auto) 1.0 H Eos # (Auto) 0.0 Baso # (Auto) 0.0 Abs Immat Gran (auto) 0.08 H Absolute Neuts (auto) 11.9 H Absolute Nucleated RBC 0.0 Nucleated RBC % 0.0 Sodium 133 L Potassium 4.3 Chloride 100 Carbon Dioxide 27 Anion Gap 6 L BUN 12 Creatinine 1.40 H Estim Creat Clear Calc 35 Estimated GFR 48 L Glucose 228 H POC Capillary Glucose 204 H Calcium 7.8 L Total Bilirubin 0.8 AST 41 ALT 32 Alkaline Phosphatase 60 Total Protein 7.0 Albumin 3.1 L Microbiology 07/09/21 18:02 Blood Blood Culture - Preliminary 07/09/21 18:02 Blood Blood Culture - Preliminary Post-procedural complaints: none Patient Feedback: Patient satisfied with anesthetic care.
--- NOTE | 2021-07-11 10:25 | PM.PNGS ---
Progress Note: A&P Assessment and Plan (1) Acute cholecystitis: Code(s): K81.0 - Acute cholecystitis Status: Acute Assessment and Plan: doing well, cont routine postop care, ADAT, f/u 2 wks p dc, ok to dc from surgical standpoint, no need for further abx from surgical standpoint Subjective Subjective Date/Time Seen: 07/11/21 10:25 feels ok, some incisional soreness, wayne clears Review of Systems Review of Systems: All systems reviewed & are unremarkable except as noted in HPI and below ROS unobtainable: Yes unobtainable due to mental status Exam Const: General: cooperative, comfortable and no acute distress Orientation/consciousness: oriented to person Resp: Auscultation: clear to auscultation bilaterally Cardio: Rate: regular rate Rhythm: regular rhythm GI: Inspection: normal to inspection, distended and incision GI Palp: Yes Soft to palpation, Yes Tenderness to palpation present (GI), No Guarding due to palpation present (GI) and No Rigid due to palpation Objective Data Vital Signs Vital Signs: Vital Signs - 24 hr 07/10/21 12:25 07/10/21 14:35 07/10/21 14:50 Temperature 37.3 C 36.1 C L Pulse Rate 88 61 65 Respiratory Rate 18 16 18 Blood Pressure 107/61 113/60 119/54 L Pulse Oximetry 97 100 99 07/10/21 15:05 07/10/21 15:20 07/10/21 15:35 Temperature Pulse Rate 71 66 63 Respiratory Rate 16 20 20 Blood Pressure 112/56 L 143/60 H 94/70 L Pulse Oximetry 97 92 92 07/10/21 15:55 07/10/21 16:40 07/10/21 18:01 Temperature 36.6 C 36.7 C 37.2 C Pulse Rate 65 71 94 Respiratory Rate 18 16 18 Blood Pressure 151/61 H 141/70 H 112/74 Pulse Oximetry 94 96 93 07/10/21 20:00 Temperature Pulse Rate 94 Respiratory Rate 18 Blood Pressure Pulse Oximetry 93 Intake/Output Intake/Output: Intake & Output 07/08/21 07/09/21 07/10/21 07/11/21 23:59 23:59 23:59 23:59 Intake Total 1050 3020 1270 Output Total 750 Balance 1050 3020 520 Meds/Results Medications: Active Medications Generic Name Dose Route Start Last Admin Trade Name Freq PRN Reason Stop Dose Admin Dextrose 12.5 gm 07/09/21 23:33 Dextrose 50% 25 Gm/50 Ml Syringe IV PUSH PRN PRN Hypoglycemia Protocol Glucagon 1 mg 07/09/21 23:33 Glucagon For Inj 1 Mg Vial IM PRN PRN Hypoglycemia Protocol Glucose 15 gm 07/09/21 23:33 Glucose Oral Gel 15 Gm Of Glucse In 37.5 Gm Tube PO PRN PRN Hypoglycemia Protocol Lactated Ringer's 1,000 mls @ 75 mls/hr 07/09/21 15:50 07/11/21 08:21 Lr - Lactated Ringers Iv IV CONT 75 mls/hr .[id number] DANIELLE Administration Piperacillin Sod/Tazobactam Sod 2.25 gm in 50 mls @ 100 mls/hr 07/09/21 23:00 07/11/21 05:45 Zosyn 2.25 Gm/D5w 50 Ml IVPB Infused Q6HR DANIELLE Infusion Dextrose 1,000 mls @ 100 mls/hr 07/09/21 23:33 Dextrose 5% 1,000 Ml IVPB PRN PRN Hypoglycemia Protocol Insulin Aspart 2 - 5 units 07/09/21 23:35 07/11/21 05:23 Insulin Aspart (*Bkc) 100 Units/Ml SUB-Q 2 units Q6H DANIELLE Administration Protocol Levothyroxine Sodium 75 mcg 07/10/21 06:30 07/11/21 05:14 Levothyroxine Sodium 75 Mcg Tablet PO 75 mcg DAILY@0630 DANIELLE Administration Loratadine 10 mg 07/10/21 09:00 07/11/21 08:20 Loratadine 10 Mg Tablet PO 10 mg DAILY DANIELLE Administration Memantine 5 mg 07/10/21 09:00 07/11/21 08:20 Memantine 5 Mg Tablet PO 5 mg BID DANIELLE Administration Morphine Sulfate 2 mg 07/09/21 23:06 07/10/21 16:20 Morphine Sulfate (*Crx) 4 Mg/Ml Inj IV PUSH 2 mg Q4H PRN Administration Pain Rated 7-10 Ondansetron HCl 4 mg 07/09/21 15:50 Ondansetron Inj 4 Mg/2 Ml Vial IV PUSH Q4H PRN Nausea Radiology Results: ITS Impressions Abdomen/Pelvis CT 07/09/21 15:08 IMPRESSION: 1. Gallbladder wall thickening and pericholecystic fat stranding suspicious for acute cholecystitis. Consider ultrasound or hepatobiliary scintigraphy.
[2021-07-11 11:33] LABS: Glucose Point of Care 193 mg/dl (65-105)
--- NOTE | 2021-07-11 14:26 | PM.IMPN ---
Progress Note: A&P Assessment and Plan (1) Sepsis: Code(s): A41.9 - Sepsis, unspecified organism Status: Acute Assessment and Plan: -Present on admission and supported by tachycardia, leukocytosis, and mildly elevated lactic acid level in the setting of acute cholecystitis. -Blood pressures are stable. -He is being adequately hydrated. -Repeat lactic acid level slightly downtrending -Blood cultures prelim positive for gram variable bacilli -Continue zosyn, follow cultures (2) Acute cholecystitis: Code(s): K81.0 - Acute cholecystitis Status: Acute Assessment and Plan: -POD#1 s/p lap donna -cleared for discharge per surgery however prelim blood cultures are positive (3) Dehydration: Code(s): E86.0 - Dehydration Status: Acute Assessment and Plan: -Creatinine was a bit elevated from baseline on arrival -cautious IV hydration -Monitor daily BMP (4) Chronic kidney disease, stage 3: Code(s): N18.30 - Chronic kidney disease, stage 3 unspecified Status: Acute Assessment and Plan: -As above (5) Type 2 diabetes mellitus: Code(s): E11.9 - Type 2 diabetes mellitus without complications Status: Acute Assessment and Plan: -Held glipizide while NPO, restarted today -Continue sliding scale insulin, Accu-Cheks, and hypoglycemic protocol. -serum glucose 228 this AM. Added glipizide back today but if continues to trend high we will need to increase his SS. (6) Hypothyroidism: Code(s): E03.9 - Hypothyroidism, unspecified Status: Acute Assessment and Plan: -Continue levothyroxine -TSH WNL (7) Dementia: Code(s): F03.90 - Unspecified dementia without behavioral disturbance Status: Acute Assessment and Plan: -Family members report that he seems more confused than usual, likely due to infection. -Continue memantine. -Initiate fall precautions. Subjective Date/time seen: 07/11/21 14:26 Interval history: 86-year-old male with dementia, hypertension, hypothyroidism, and type 2 diabetes mellitus, admitted for acute cholecystitis. Pt is A/Ox1 today. Daughter at bedside. He is somnolent but arousable. Denies abdominal pain. POD#1 s/p lap donna. Doing well from surgical standpoint, however prelim blood cultures are positive. Review of Systems Review of Systems: ROS unobtainable: Yes unobtainable due to mental status Exam Narrative: General: NAD. He is mildly ill in appearance. Somnolent but easily arousable. HEENT: PERRL. Sclerae anicteric. Most teeth are missing. Neck: Supple. Respiratory: Lungs are clear to auscultation bilaterally. Cardiovascular: Regular rate and rhythm with S1-S2. Gastrointestinal: Abdomen is soft, nontender, and nondistended with positive bowel sounds. Surgical glue in place over laparoscopic incisions. Skin: Warm and dry. Extremities: No cyanosis, clubbing, or edema. Neurological: Alert and oriented to self only. Speech is clear. Generalized weakness without focal findings. Psychiatric: Pleasantly confused and cooperative. Appropriate mood. Forgetful. Objective Data Vital Signs Vital Signs: Vital Signs - 24 hr 07/10/21 14:35 07/10/21 14:50 07/10/21 15:05 Temperature 96.9 F L Pulse Rate 61 65 71 Respiratory Rate 16 18 16 Blood Pressure 113/60 119/54 L 112/56 L Pulse Oximetry 100 99 97 07/10/21 15:20 07/10/21 15:35 07/10/21 15:55 Temperature 97.9 F Pulse Rate 66 63 65 Respiratory Rate 20 20 18 Blood Pressure 143/60 H 94/70 L 151/61 H Pulse Oximetry 92 92 94 07/10/21 16:40 07/10/21 18:01 07/10/21 20:00 Temperature 98.1 F 99.0 F Pulse Rate 71 94 94 Respiratory Rate 16 18 18 Blood Pressure 141/70 H 112/74 Pulse Oximetry 96 93 93 Intake/Output Intake/Output: Intake & Output 07/08/21 07/09/21 07/10/21 07/11/21 23:59 23:59 23:59 23:59 Intake Total 105
[2021-07-11 15:15] VITALS: BP 120/60; PULSE 84; RESP 18; TEMP 37.2; O2SAT 93
[2021-07-11 15:32] LABS: Add Urine Microscopic? YES; Appearance Urine Clear (Clear); Bacteria Urine Trace /hpf; Bilirubin Urine Negative (Negative); Blood Urine 1+ (Negative); Color Urine Yellow (Yellow); Glucose Urine UA 1+ mg/dL (Negative); Ketones Urine Negative (Negative); Leukocyte Esterase Ur Trace LEU/UL (Negative); Nitrate Urine Negative (Negative); Protein Urine 1+ mg/dL (Negative); RBC Urine 0-2 /hpf (0-2); Specific Grav Ur 1.018 (1.001-1.035); Squamous Epithelial Cell Urine Rare /hpf (Few); Urobilinogen Urine Negative mg/dL (<2.0)
[2021-07-11] MEDS: glipiZIDE 5 MG TABLET PO (16:26)
[2021-07-11 16:28] LABS: Glucose Point of Care 199 mg/dl (65-105)
[2021-07-11 20:55] VITALS: BP 108/63; PULSE 87; RESP 16; TEMP 36.4; O2SAT 96
[2021-07-11 20:59] LABS: Glucose Point of Care 204 mg/dl (65-105)
[2021-07-12] MEDS: LEVOTHYROXINE SODIUM 75 MCG TABLET PO (05:30)
[2021-07-12 06:42] VITALS: BP 137/74; PULSE 92; RESP 18; TEMP 37; O2SAT 90
[2021-07-12] MEDS: glipiZIDE 5 MG TABLET PO ×2 (07:33→16:29)
[2021-07-12 07:45] LABS: Glucose Point of Care 189 mg/dl (65-105)
--- NOTE | 2021-07-12 08:30 | PM.IMPN ---
Progress Note: A&P Assessment and Plan (1) Sepsis: Code(s): A41.9 - Sepsis, unspecified organism Status: Acute Assessment and Plan: -Resolved -Present on admission and supported by tachycardia, leukocytosis, and mildly elevated lactic acid level in the setting of acute cholecystitis. -Blood pressures are stable. -Repeat lactic acid level slightly downtrending -Blood cultures prelim positive for gram variable bacilli -Continue zosyn, follow cultures (2) Acute cholecystitis: Code(s): K81.0 - Acute cholecystitis Status: Acute Assessment and Plan: -POD#2 s/p lap donna -cleared for discharge per surgery however prelim blood cultures are positive (3) Dehydration: Code(s): E86.0 - Dehydration Status: Acute Assessment and Plan: -Resolved -Creatinine was a bit elevated from baseline on arrival -Labs back to baseline -IV fluids DC'd -Monitor daily BMP (4) Chronic kidney disease, stage 3: Code(s): N18.30 - Chronic kidney disease, stage 3 unspecified Status: Acute Assessment and Plan: -As above (5) Type 2 diabetes mellitus: Code(s): E11.9 - Type 2 diabetes mellitus without complications Status: Acute Assessment and Plan: -Held glipizide while NPO, restarted on 07/11/21 -Continue sliding scale insulin, Accu-Cheks, and hypoglycemic protocol. -serum glucose 228 this AM. (6) Hypothyroidism: Code(s): E03.9 - Hypothyroidism, unspecified Status: Acute Assessment and Plan: -Continue levothyroxine -TSH WNL (7) Dementia: Code(s): F03.90 - Unspecified dementia without behavioral disturbance Status: Acute Assessment and Plan: -Family members report that he seems more confused than usual -Could be from infection, or it could be the residual effect of the anesthesia -Continue memantine. -Initiate fall precautions. Subjective Date/time seen: 07/12/21 08:30 Interval history: Date/Time: 07/09/21 16:45 Narrative: This is an 86-year-old male with dementia, hypertension, hypothyroidism, and type 2 diabetes mellitus who presented to the emergency department from home for evaluation of abdominal pain. Given his dementia and acute illness, he is only a fair historian and as such some of the following is obtained via discussions with his daughter Cassie at bedside, with the patient's permission. Yesterday the patient complained of vague abdominal discomfort and in fact he only ate some crackers late yesterday morning and he retired to bed where he stayed until sometime this morning. Not long after waking he complained of abdominal pain once again, gesturing more towards the right abdomen, though he was unable to really qualify what he was feeling. He was brought in for evaluation and CT of the abdomen and pelvis and abdominal ultrasound both demonstrated gallbladder wall thickening and in the setting of leukocytosis he is being admitted for presumed acute cholecystitis. At the time my evaluation he was aware that he was at the hospital though did not recall why he was brought here. It is my understanding that he received morphine not long prior to my arrival to the room, and he has no pain on exam and he has no complaints currently. Specifically he denies fever, chills, sweats, current abdominal pain, chest pain, shortness a breath, nausea, and vomiting. Last bowel movement was several days ago and was reportedly unremarkable. Date/time seen: 07/10/21 10:52 Pt is A/Ox1 today. Daughter at bedside. He is somnolent but arousable. Denies abdominal pain. Surgery scheduled for 2pm today. Date/time seen: 07/11/21 14:26 Pt is A/Ox1 today. Daughter at bedside. He is somnolent but arousable. Denies abdominal pain. POD#1 s/p lap donna. Doing well from surgical standpoint, however prelim blood cultures are positive. Date/Time seen: 07/12/21 0830 Patient was doi
[2021-07-12] MEDS: MEMANTINE 5 MG TABLET PO ×2 (08:39→16:29)
[2021-07-12] MEDS: LORATADINE 10 MG TABLET PO (08:44)
[2021-07-12] MEDS: polyethylene glycoL 3350 17 GM POWD.PACK PO (09:05)
[2021-07-12] MEDS: LACTATED RINGERS 1,000 ML 75 ML IV CONT (10:33)
[2021-07-12 11:10] LABS: Basophils Percent Auto 0.4 % (0.2-1.2); Eosinophils Absolute Auto 0.2 K/mm3 (0-0.3); Hematocrit 36.4 % (42.0-52.0); Hemoglobin 11.9 g/dL (14.0-18.0); Immature Granulocyte Absolute 0.04 K/mm3 (0.00-0.031); Immature Granulocyte Percent A 0.4 % (0-0.5); Lymphocytes Absolute Auto 0.93 K/mm3 (0.9-3.2); Lymphocytes Percent Auto 10.2 % (18.3-44.2); Mean Corpuscular HGB Conc 32.7 g/dl (32-36); Mean Corpuscular Hemoglobin 31.5 pg (26-34); Mean Corpuscular Volume 96.3 fl (80-100); Monocytes Absolute Auto 0.8 K/mm3 (0.1-0.6); Monocytes Percent Auto 9.1 % (2.6-8.5); Neutrophils Absolute Auto 7.1 K/mm3 (1.3-6.7); Neutrophils Percent Auto 77.9 % (45.5-73.1); Platelet Count Result 183 k/mm3 (150-375); Red Blood Count 3.78 M/mm3 (4.6-6.20); Red Cell Distribution Width 14.2 % (11.5-14.5); White Blood Count 9.2 K/mm3 (4.5-10.0)
[2021-07-12 11:20] LABS: Alanine Aminotransferase 24 U/L (4-50); Albumin Level 2.7 g/dL (3.5-5.1); Alkaline Phosphatase 56 U/L (38-126); Anion Gap 3 mmol/L (8-16); Aspartate Amino Transferase 28 U/L (17-59); Bilirubin,Total 0.7 mg/dL (0.2-1.3); Blood Urea Nitrogen 12 mg/dL (9-20); Calcium 7.5 mg/dL (8.4-10.2); Carbon Dioxide 28 mmol/L (22-30); Chloride 99 mmol/L (98-107); Estimated CRCL calculation 38 ml/min; Estimated Glomerular Filt Rate 53; Glucose 172 mg/dL (65-110); Potassium 3.6 mmol/L (3.4-5.0); Sodium 130 mmol/L (137-145)
[2021-07-12 11:29] LABS: Glucose Point of Care 177 mg/dl (65-105)
[2021-07-12 14:17] VITALS: BP 113/80; PULSE 102; RESP 16; TEMP 35.4; O2SAT 100
[2021-07-12 16:28] LABS: Glucose Point of Care 231 mg/dl (65-105)
[2021-07-12] MEDS: INSULIN ASPART (*BKC) 100 UNITS/ML SUB-Q (16:30)
[2021-07-12 19:49] LABS: Glucose Point of Care 271 mg/dl (65-105)
[2021-07-12 20:00] VITALS: PULSE 102; RESP 16; O2SAT 100
[2021-07-12 20:48] VITALS: BP 97/65; PULSE 99; RESP 16; TEMP 37.8; O2SAT 96
[2021-07-13 06:18] LABS: Basophils Absolute Auto 0.1 K/mm3 (0.0-0.1); Basophils Percent Auto 0.6 % (0.2-1.2); Eosinophils Absolute Auto 0.3 K/mm3 (0-0.3); Eosinophils Percent Auto 3.8 % (0-4.4); Hemoglobin 11.3 g/dL (14.0-18.0); Immature Granulocyte Absolute 0.03 K/mm3 (0.00-0.031); Immature Granulocyte Percent A 0.4 % (0-0.5); Lymphocytes Absolute Auto 1.08 K/mm3 (0.9-3.2); Lymphocytes Percent Auto 13.8 % (18.3-44.2); Mean Corpuscular HGB Conc 34.2 g/dl (32-36); Mean Corpuscular Volume 93.5 fl (80-100); Mean Platelet Volume 10.8 fl (7.4-10.4); Monocytes Absolute Auto 0.8 K/mm3 (0.1-0.6); Monocytes Percent Auto 9.8 % (2.6-8.5); Neutrophils Absolute Auto 5.6 K/mm3 (1.3-6.7); Neutrophils Percent Auto 71.6 % (45.5-73.1); Platelet Count Result 179 k/mm3 (150-375); Red Blood Count 3.53 M/mm3 (4.6-6.20); Red Cell Distribution Width 13.7 % (11.5-14.5); White Blood Count 7.9 K/mm3 (4.5-10.0)
[2021-07-13 06:31] LABS: Alanine Aminotransferase 23 U/L (4-50); Albumin Level 2.7 g/dL (3.5-5.1); Alkaline Phosphatase 55 U/L (38-126); Anion Gap 5 mmol/L (8-16); Aspartate Amino Transferase 26 U/L (17-59); Bilirubin,Total 0.6 mg/dL (0.2-1.3); Blood Urea Nitrogen 14 mg/dL (9-20); Calcium 7.5 mg/dL (8.4-10.2); Carbon Dioxide 26 mmol/L (22-30); Chloride 100 mmol/L (98-107); Estimated CRCL calculation 35 ml/min; Estimated Glomerular Filt Rate 48; Glucose 155 mg/dL (65-110); Magnesium 1.7 mg/dL (1.6-2.3); Potassium 3.6 mmol/L (3.4-5.0); Sodium 131 mmol/L (137-145)
[2021-07-13] MEDS: LEVOTHYROXINE SODIUM 75 MCG TABLET PO (06:32)
[2021-07-13] MEDS: glipiZIDE 5 MG TABLET PO ×2 (06:34→16:35)
[2021-07-13 06:41] VITALS: BP 123/51; PULSE 86; RESP 18; TEMP 37.2; O2SAT 99
--- NOTE | 2021-07-13 07:05 | PM.DS ---
DS: Admitting Diagnosis Discharge Date 07/13/21 0915 Admitting Diagnosis Acute cholecystitis DS: Discharge Diagnosis Discharge Diagnosis (1) Sepsis: Code(s): A41.9 - Sepsis, unspecified organism Status: Acute Assessment and Plan: -Resolved -Present on admission and supported by tachycardia, leukocytosis, and mildly elevated lactic acid level in the setting of acute cholecystitis. -Blood pressures are stable. -Repeat lactic acid level slightly downtrending -Blood cultures prelim positive for gram variable bacilli, Corynebacterium minutissimum (is said to be a contaminant, normal skin mady, non opportunistic infection, uptodate) -Continue zosyn, follow cultures (2) Acute cholecystitis: Code(s): K81.0 - Acute cholecystitis Status: Acute Assessment and Plan: -POD#3 s/p lap donna -cleared for discharge per surgery however prelim blood cultures are positive (3) Dehydration: Code(s): E86.0 - Dehydration Status: Acute Assessment and Plan: -Resolved -Creatinine was a bit elevated from baseline on arrival -Labs back to baseline -IV fluids DC'd -Monitor daily BMP (4) Chronic kidney disease, stage 3: Code(s): N18.30 - Chronic kidney disease, stage 3 unspecified Status: Acute Assessment and Plan: -As above (5) Type 2 diabetes mellitus: Code(s): E11.9 - Type 2 diabetes mellitus without complications Status: Acute Assessment and Plan: -Held glipizide while NPO, restarted on 07/11/21 -Continue sliding scale insulin, Accu-Cheks, and hypoglycemic protocol. -serum glucose 155 this AM. (6) Hypothyroidism: Code(s): E03.9 - Hypothyroidism, unspecified Status: Acute Assessment and Plan: -Continue levothyroxine -TSH WNL (7) Dementia: Code(s): F03.90 - Unspecified dementia without behavioral disturbance Status: Acute Assessment and Plan: -Family members report that he seems more confused than usual -Could be from infection, or it could be the residual effect of the anesthesia -Continue memantine. -Initiate fall precautions. DS: Summary Hospital Course Hospital Course: Patient is an 86-year-old male with history of dementia, hypertension, hypothyroidism, diabetes type 2 who presented emergency room from home for evaluation of abdominal pain. Patient came and his he was having vague abdominal pain after eating. CT of the abdomen and pelvis showed gallbladder wall thickening suspicious for acute cholecystitis. Patient did have an elevated white count. General surgery was consulted and patient had a lap donna performed on 07/10/2021. After return from the OR patient seems a little bit more confused than his baseline. Urine culture was collected and showed no growth. Blood culture grew Corynebacterium minutissimum in 1 bottle, which is likely contaminant. Patient has been able to get up to chair and has been eating his lunch and breakfast. Patient has no complaints and is stable for discharge at this time. Talked to his daughter about discharge. She has been updated and all questions have been answered. Status at Discharge Overall status at discharge: patient is progressing back to baseline Time Spent with Patient Time attestation: Total time spent providing and/or coordinating discharge services: 38 minutes Time spent: Greater than 30 minutes Specific discharge activities: Diagnostic testing, chart review, developing a treatment plan, education, care coordination documentation, physical exam, result review Exam Const: General: cooperative, healthy appearing, no acute distress, well developed, alert and awake Nutritional Appearance: well nourished Orientation/consciousness: patient oriented x3 Limitations: no limitations HENMT: Head: normal to inspection Ears: hearing grossly normal bilaterally General nose exam: Normal external nose pre
[2021-07-13 07:47] LABS: Glucose Point of Care 170 mg/dl (65-105)
[2021-07-13] MEDS: polyethylene glycoL 3350 17 GM POWD.PACK PO (08:21)
[2021-07-13] MEDS: MEMANTINE 5 MG TABLET PO ×2 (08:21→16:35)
[2021-07-13] MEDS: LORATADINE 10 MG TABLET PO (08:21)
[2021-07-13] MEDS: MAGNESIUM SULF 2 GM/WATER 50ML 2 GM/50 ML BAG IVPB (08:21)
[2021-07-13 11:53] LABS: Glucose Point of Care 288 mg/dl (65-105)
[2021-07-13] MEDS: INSULIN ASPART (*BKC) 100 UNITS/ML SUB-Q (12:05)
--- NOTE | 2021-07-13 13:54 | PM.IMPN ---
Progress Note: A&P Assessment and Plan (1) Physical deconditioning: Code(s): R53.81 - Other malaise Status: Acute Assessment and Plan: Exhibit taking while walking the patient the bathroom Patient will need either placement for rehab or PT and OT (2) Sepsis: Code(s): A41.9 - Sepsis, unspecified organism Status: Acute Assessment and Plan: -Resolved -Present on admission and supported by tachycardia, leukocytosis, and mildly elevated lactic acid level in the setting of acute cholecystitis. -Blood pressures are stable. -Repeat lactic acid level slightly downtrending -Blood cultures prelim positive for gram variable bacilli, Corynebacterium minutissimum (is said to be a contaminant, normal skin mady, non opportunistic infection, uptodate) -DC Zosyn (3) Acute cholecystitis: Code(s): K81.0 - Acute cholecystitis Status: Acute Assessment and Plan: -POD#3 s/p lap donna -cleared for discharge per surgery however prelim blood cultures are positive (4) Dehydration: Code(s): E86.0 - Dehydration Status: Acute Assessment and Plan: -Resolved -Creatinine was a bit elevated from baseline on arrival -Labs back to baseline -IV fluids DC'd -Monitor daily BMP (5) Chronic kidney disease, stage 3: Code(s): N18.30 - Chronic kidney disease, stage 3 unspecified Status: Acute Assessment and Plan: -As above (6) Type 2 diabetes mellitus: Code(s): E11.9 - Type 2 diabetes mellitus without complications Status: Acute Assessment and Plan: -Held glipizide while NPO, restarted on 07/11/21 -Continue sliding scale insulin, Accu-Cheks, and hypoglycemic protocol. -serum glucose 155 this AM. (7) Hypothyroidism: Code(s): E03.9 - Hypothyroidism, unspecified Status: Acute Assessment and Plan: -Continue levothyroxine -TSH WNL (8) Dementia: Code(s): F03.90 - Unspecified dementia without behavioral disturbance Status: Acute Assessment and Plan: -Family members report that he seems more confused than usual -Could be from infection, or it could be the residual effect of the anesthesia -Continue memantine. -Initiate fall precautions. Subjective Date/time seen: 07/13/21 1345 Interval history: Date/Time: 07/09/21 16:45 Narrative: This is an 86-year-old male with dementia, hypertension, hypothyroidism, and type 2 diabetes mellitus who presented to the emergency department from home for evaluation of abdominal pain. Given his dementia and acute illness, he is only a fair historian and as such some of the following is obtained via discussions with his daughter Cassie at bedside, with the patient's permission. Yesterday the patient complained of vague abdominal discomfort and in fact he only ate some crackers late yesterday morning and he retired to bed where he stayed until sometime this morning. Not long after waking he complained of abdominal pain once again, gesturing more towards the right abdomen, though he was unable to really qualify what he was feeling. He was brought in for evaluation and CT of the abdomen and pelvis and abdominal ultrasound both demonstrated gallbladder wall thickening and in the setting of leukocytosis he is being admitted for presumed acute cholecystitis. At the time my evaluation he was aware that he was at the hospital though did not recall why he was brought here. It is my understanding that he received morphine not long prior to my arrival to the room, and he has no pain on exam and he has no complaints currently. Specifically he denies fever, chills, sweats, current abdominal pain, chest pain, shortness a breath, nausea, and vomiting. Last bowel movement was several days ago and was reportedly unremarkable. Date/time seen: 07/10/21 10:52 Pt is A/Ox1 today. Daughter at bedside. He is somnolent but arousable. Denies a
[2021-07-13 15:19] VITALS: BP 142/83; PULSE 89; RESP 16; TEMP 36; O2SAT 96
[2021-07-13 16:23] LABS: Glucose Point of Care 197 mg/dl (65-105)
[2021-07-13 19:16] LABS: Glucose Point of Care 196 mg/dl (65-105)
[2021-07-13 19:21] VITALS: BP 122/69; PULSE 84; RESP 16; TEMP 36.1; O2SAT 95
[2021-07-13 21:34] VITALS: BP 110/80; PULSE 102; RESP 22; TEMP 37.4; O2SAT 93
[2021-07-13 22:09] LABS: Glucose Point of Care 190 mg/dl (65-105)
[2021-07-14] MEDS: LEVOTHYROXINE SODIUM 75 MCG TABLET PO (05:51)
[2021-07-14 05:56] LABS: Glucose Point of Care 184 mg/dl (65-105)
[2021-07-14 06:00] VITALS: BP 110/58; PULSE 88; RESP 28; TEMP 37.2; O2SAT 92
[2021-07-14] MEDS: glipiZIDE 5 MG TABLET PO ×2 (06:47→16:33)
[2021-07-14] MEDS: DOCUSATE SODIUM 100 MG CAPSULE PO (06:50)
[2021-07-14 07:52] LABS: Glucose Point of Care 186 mg/dl (65-105)
[2021-07-14] MEDS: MEMANTINE 5 MG TABLET PO ×2 (08:20→16:33)
[2021-07-14] MEDS: LORATADINE 10 MG TABLET PO (08:20)
[2021-07-14] MEDS: polyethylene glycoL 3350 17 GM POWD.PACK PO (08:22)
[2021-07-14 08:23] LABS: Basophils Percent Auto 0.5 % (0.2-1.2); Eosinophils Absolute Auto 0.3 K/mm3 (0-0.3); Eosinophils Percent Auto 4.1 % (0-4.4); Hematocrit 35.5 % (42.0-52.0); Hemoglobin 11.7 g/dL (14.0-18.0); Immature Granulocyte Absolute 0.06 K/mm3 (0.00-0.031); Immature Granulocyte Percent A 0.7 % (0-0.5); Lymphocytes Absolute Auto 0.86 K/mm3 (0.9-3.2); Lymphocytes Percent Auto 10.6 % (18.3-44.2); Mean Corpuscular Hemoglobin 31.3 pg (26-34); Mean Corpuscular Volume 94.9 fl (80-100); Monocytes Absolute Auto 0.7 K/mm3 (0.1-0.6); Monocytes Percent Auto 9.1 % (2.6-8.5); Neutrophils Absolute Auto 6.1 K/mm3 (1.3-6.7); Platelet Count Result 202 k/mm3 (150-375); Red Blood Count 3.74 M/mm3 (4.6-6.20); Red Cell Distribution Width 13.8 % (11.5-14.5); White Blood Count 8.1 K/mm3 (4.5-10.0)
[2021-07-14 08:43] LABS: Alanine Aminotransferase 21 U/L (4-50); Alkaline Phosphatase 63 U/L (38-126); Anion Gap 6 mmol/L (8-16); Aspartate Amino Transferase 23 U/L (17-59); Bilirubin,Total 0.5 mg/dL (0.2-1.3); Blood Urea Nitrogen 15 mg/dL (9-20); Calcium 7.9 mg/dL (8.4-10.2); Carbon Dioxide 26 mmol/L (22-30); Chloride 99 mmol/L (98-107); Estimated CRCL calculation 35 ml/min; Estimated Glomerular Filt Rate 48; Glucose 180 mg/dL (65-110); Magnesium 2.1 mg/dL (1.6-2.3); Potassium 3.6 mmol/L (3.4-5.0); Sodium 131 mmol/L (137-145)
[2021-07-14 11:18] LABS: Glucose Point of Care 211 mg/dl (65-105)
[2021-07-14] MEDS: INSULIN ASPART (*BKC) 100 UNITS/ML SUB-Q (11:46)
--- NOTE | 2021-07-14 14:45 | PM.IMPN ---
Progress Note: A&P Assessment and Plan (1) Sepsis: Code(s): A41.9 - Sepsis, unspecified organism Status: Acute Assessment and Plan: -Resolved -Present on admission and supported by tachycardia, leukocytosis, and mildly elevated lactic acid level in the setting of acute cholecystitis. -Blood pressures are stable. -Repeat lactic acid level slightly downtrending -Blood cultures prelim positive for gram variable bacilli, Corynebacterium minutissimum (is said to be a contaminant, normal skin mady, non opportunistic infection, uptodate) -DC Zosyn, no further abx indicated per general surgery (2) Acute cholecystitis: Code(s): K81.0 - Acute cholecystitis Status: Acute Assessment and Plan: -POD#4 s/p lap donna -cleared for discharge per surgery (3) Dehydration: Code(s): E86.0 - Dehydration Status: Acute Assessment and Plan: -Creatinine was a bit elevated from baseline on arrival -IV fluids DC'd -Monitor daily BMP (4) Chronic kidney disease, stage 3: Code(s): N18.30 - Chronic kidney disease, stage 3 unspecified Status: Acute Assessment and Plan: -As above (5) Type 2 diabetes mellitus: Code(s): E11.9 - Type 2 diabetes mellitus without complications Status: Acute Assessment and Plan: -Held glipizide while NPO, restarted on 07/11/21 -Continue sliding scale insulin, Accu-Cheks, and hypoglycemic protocol. -serum glucose 180 this AM. (6) Hypothyroidism: Code(s): E03.9 - Hypothyroidism, unspecified Status: Acute Assessment and Plan: -Continue levothyroxine -TSH WNL (7) Dementia: Code(s): F03.90 - Unspecified dementia without behavioral disturbance Status: Acute Assessment and Plan: -Family members report that he seems more confused than usual -Could be from infection, or it could be the residual effect of the anesthesia -Continue memantine. -Initiate fall precautions. (8) Physical deconditioning: Code(s): R53.81 - Other malaise Status: Acute Assessment and Plan: -Exhibited taking while walking the patient the bathroom -PT/OT -pending placement to rehab Subjective Date/time seen: 07/14/21 14:45 Interval history: 86-year-old male with dementia, hypertension, hypothyroidism, and type 2 diabetes mellitus, admitted for acute cholecystitis. Pt is POD #4. Doing well. Pleasantly confused. NAD. Doing well with therapy at times and other times is max assist. Mentation seems to fluctuate throughout the day. He is A/Ox1 today with no complaints. Denies abd pain. Further hx limited secondary to mental status. Review of Systems Review of Systems: ROS unobtainable: Yes unobtainable due to mental status Exam Narrative: General: NAD. Non toxic. Elderly. Very alert today sitting in chair at bedside. HEENT: PERRL. Sclerae anicteric. Most teeth are missing. Neck: Supple. Respiratory: Lungs are clear to auscultation bilaterally. Cardiovascular: Regular rate and rhythm with S1-S2. Gastrointestinal: Abdomen is soft, nontender, and nondistended with positive bowel sounds. Surgical glue in place over laparoscopic incisions. Skin: Warm and dry. Extremities: No cyanosis, clubbing, or edema. Neurological: Alert and oriented to self only. Speech is clear. Generalized weakness without focal findings. Psychiatric: Pleasantly confused and cooperative. Appropriate mood. Forgetful. Objective Data Vital Signs Vital Signs: Vital Signs - 24 hr 07/13/21 15:19 07/13/21 19:21 07/13/21 21:34 Temperature 96.8 F L 97 F L 99.3 F Pulse Rate 89 84 102 H Respiratory Rate 16 16 22 H Blood Pressure 142/83 H 122/69 110/80 Pulse Oximetry 96 95 93 07/14/21 06:00 Temperature 98.9 F Pulse Rate 88 Respiratory Rate 28 H Blood Pressure 110/58 L Pulse Oximetry 92 Intake/Output Intake/Output: Intake & Outp
[2021-07-14 14:53] VITALS: BP 101/61; PULSE 91; RESP 20; TEMP 36.3; O2SAT 100
[2021-07-14 16:22] LABS: Glucose Point of Care 170 mg/dl (65-105)
[2021-07-14 19:45] LABS: Glucose Point of Care 243 mg/dl (65-105)
[2021-07-14 20:00] VITALS: PULSE 102; RESP 16; O2SAT 96
[2021-07-14 21:47] VITALS: BP 113/65; PULSE 102; RESP 16; TEMP 37.6; O2SAT 96
[2021-07-15 05:58] VITALS: BP 112/67; PULSE 107; RESP 18; TEMP 36.5; O2SAT 93
[2021-07-15] MEDS: glipiZIDE 5 MG TABLET PO (05:58)
[2021-07-15] MEDS: LEVOTHYROXINE SODIUM 75 MCG TABLET PO (05:58)
[2021-07-15 07:27] LABS: Basophils Percent Auto 0.3 % (0.2-1.2); Eosinophils Absolute Auto 0.2 K/mm3 (0-0.3); Eosinophils Percent Auto 2.6 % (0-4.4); Hematocrit 35.1 % (42.0-52.0); Hemoglobin 11.9 g/dL (14.0-18.0); Immature Granulocyte Absolute 0.07 K/mm3 (0.00-0.031); Immature Granulocyte Percent A 0.8 % (0-0.5); Lymphocytes Absolute Auto 1.04 K/mm3 (0.9-3.2); Lymphocytes Percent Auto 11.3 % (18.3-44.2); Mean Corpuscular HGB Conc 33.9 g/dl (32-36); Mean Corpuscular Hemoglobin 31.7 pg (26-34); Mean Corpuscular Volume 93.6 fl (80-100); Mean Platelet Volume 10.8 fl (7.4-10.4); Monocytes Absolute Auto 0.9 K/mm3 (0.1-0.6); Neutrophils Absolute Auto 6.9 K/mm3 (1.3-6.7); Platelet Count Result 235 k/mm3 (150-375); Red Blood Count 3.75 M/mm3 (4.6-6.20); Red Cell Distribution Width 13.9 % (11.5-14.5); White Blood Count 9.2 K/mm3 (4.5-10.0)
[2021-07-15 07:39] LABS: Alanine Aminotransferase 20 U/L (4-50); Albumin Level 3.1 g/dL (3.5-5.1); Alkaline Phosphatase 45 U/L (38-126); Anion Gap 6 mmol/L (8-16); Aspartate Amino Transferase 31 U/L (17-59); Bilirubin,Total 0.9 mg/dL (0.2-1.3); Blood Urea Nitrogen 16 mg/dL (9-20); Calcium 7.6 mg/dL (8.4-10.2); Carbon Dioxide 26 mmol/L (22-30); Chloride 99 mmol/L (98-107); Estimated CRCL calculation 41 ml/min; Estimated Glomerular Filt Rate 58; Glucose 183 mg/dL (65-110); Potassium 4.5 mmol/L (3.4-5.0); Sodium 131 mmol/L (137-145)
[2021-07-15 07:54] LABS: Glucose Point of Care 181 mg/dl (65-105)
[2021-07-15] MEDS: LORATADINE 10 MG TABLET PO (09:49)
[2021-07-15] MEDS: MEMANTINE 5 MG TABLET PO (09:49)
[2021-07-15] MEDS: polyethylene glycoL 3350 17 GM POWD.PACK PO (09:50)
[2021-07-15 11:34] LABS: Glucose Point of Care 164 mg/dl (65-105)
--- NOTE | 2021-07-15 13:26 | PM.DS ---
DS: Admitting Diagnosis Discharge Date 07/15/21 Admitting Diagnosis acute cholecystitis DS: Discharge Diagnosis Discharge Diagnosis (1) Sepsis: Code(s): A41.9 - Sepsis, unspecified organism Status: Acute Assessment and Plan: -Resolved -Present on admission and supported by tachycardia, leukocytosis, and mildly elevated lactic acid level in the setting of acute cholecystitis. -Blood pressures are stable. -Repeat lactic acid level slightly downtrending -Blood cultures prelim positive for gram variable bacilli, Corynebacterium minutissimum (is said to be a contaminant, normal skin mady, non opportunistic infection per uptodate) -DC Zosyn, no further abx indicated per general surgery (2) Acute cholecystitis: Code(s): K81.0 - Acute cholecystitis Status: Acute Assessment and Plan: -POD#5 s/p lap donna -cleared for discharge per surgery (3) Dehydration: Code(s): E86.0 - Dehydration Status: Acute Assessment and Plan: -Creatinine was a bit elevated from baseline on arrival -IV fluids DC'd -Back to his baseline currently (4) Chronic kidney disease, stage 3: Code(s): N18.30 - Chronic kidney disease, stage 3 unspecified Status: Acute Assessment and Plan: -As above (5) Type 2 diabetes mellitus: Code(s): E11.9 - Type 2 diabetes mellitus without complications Status: Acute Assessment and Plan: -Held glipizide while NPO, restarted on 07/11/21 -Continued sliding scale insulin, Accu-Cheks, and hypoglycemic protocol. -serum glucose 183 this AM. (6) Hypothyroidism: Code(s): E03.9 - Hypothyroidism, unspecified Status: Acute Assessment and Plan: -Continue levothyroxine -TSH WNL (7) Dementia: Code(s): F03.90 - Unspecified dementia without behavioral disturbance Status: Acute Assessment and Plan: -Family members report that he seems more confused than usual -Could be from infection, or it could be the residual effect of the anesthesia -Continued memantine. -Initiated fall precautions. -Per family he is returning to baseline mental status, to me he also seems much more alert today (8) Physical deconditioning: Code(s): R53.81 - Other malaise Status: Acute Assessment and Plan: -Exhibited taking while walking the patient the bathroom -PT/OT -accepted to rehab DS: Summary Hospital Course Reason for hospitalization: 86-year-old male with dementia, hypertension, hypothyroidism, and type 2 diabetes mellitus, admitted for acute cholecystitis. Please see HPI for further details. Hospital Course: Please see above for details of hospital course. Status at Discharge Cognitive/behavioral status at discharge: stable Functional status at discharge: uses cane/walker Overall status at discharge: patient is progressing back to baseline Time Spent with Patient Time attestation: Total time spent providing and/or coordinating discharge services: 35 Time spent: Greater than 30 minutes Exam Narrative: General: NAD. Non toxic. Elderly. Very alert today sitting in chair at bedside. HEENT: PERRL. Sclerae anicteric. Most teeth are missing. Neck: Supple. Respiratory: Lungs are clear to auscultation bilaterally. Cardiovascular: Regular rate and rhythm with S1-S2. Gastrointestinal: Abdomen is soft, nontender, and nondistended with positive bowel sounds. Surgical glue in place over laparoscopic incisions. Skin: Warm and dry. Extremities: No cyanosis, clubbing, or edema. Neurological: Alert and oriented to self only. Speech is clear. Generalized weakness without focal findings. Psychiatric: Pleasantly confused and cooperative. Appropriate mood. Forgetful. DS: Data Data Completed and Pending Completed studies during hospitalization: Pending at discharge 07/10/21 13:49 Surgical [PTH] Routine Labs on
[2021-07-15 14:03] LABS: EDCOVIDSCREEN Negative (Negative)
== END 2021-07-15 15:20 | disposition swing bed (61) | DRG 419 ==
LOC: ANHED 16:02 → ANH3MED 17:39
PROVIDERS: Nurse Practitioner; Nurse Practitioner Family; Physician Assistant; Surgery; Admitting Provider Family Medicine; Emergency Provider Emergency Medicine; Visit Provider Family Medicine
PROC: 0FT44ZZ Resection of Gallbladder, Percutaneous Endoscopic Approach (ICD-10-PCS; CPT 47562; principal; 2021-07-10 14:00)
DX: K80.00 Calculus of gallbladder with acute cholecystitis without obstruction (principal); K82.A1 Gangrene of gallbladder in cholecystitis; B96.89 Other specified bacterial agents as the cause of diseases classified elsewhere; Z20.822 Contact with and (suspected) exposure to COVID-19; E86.0 Dehydration; E11.22 Type 2 diabetes mellitus with diabetic chronic kidney disease; N18.30 Chronic kidney disease, stage 3 unspecified; D72.829 Elevated white blood cell count, unspecified; E03.9 Hypothyroidism, unspecified; F03.90 Unspecified dementia, unspecified severity, without behavioral disturbance, psychotic disturbance, mood disturbance, and anxiety; R53.81 Other malaise; F32.A Depression, unspecified; Z98.42 Cataract extraction status, left eye; Z98.41 Cataract extraction status, right eye; Z87.891 Personal history of nicotine dependence; Z79.82 Long term (current) use of aspirin
CPT/HCPCS: 36415; 74177; 76705; 80048; 80053; 80076; 81001; 82948; 83036; 83605; 83690; 83735; 84443; 85025; 85610; 85730; 87040; 87077; 87086; 87426; 88304; 96361; 96365; 96366; 97110; 97161; 97165; 97530; 97535; 99285; A9270; C9803; G0378; J1815; J2270; J2405; J2543; J2704; J2710; J3010; J3475; J7030; J7120; Q9967

== ENCOUNTER 2021-07-15 16:03 | Inpatient (IN) | payer MEDICARE, SELFPAY ==
--- NOTE | 2021-07-15 16:15 | PC.NURSE ---
Patient arrived to unit in / accompanied by his daughters at 1615. Admitted to room 207 for therapy. Required 2 assist gait belt [facility]. Patient having difficulty following commands. Patient and family orientated to hospital surroundings and call light.
[2021-07-15 16:33] LABS: Glucose Point of Care 255 mg/dl (65-105)
[2021-07-15 16:48] VITALS: BP 146/103; PULSE 87; RESP 18; TEMP 37.1; O2SAT 99; BMI 24.7
[2021-07-15] MEDS: MEMANTINE 5 MG TABLET PO (17:43)
[2021-07-15] MEDS: glipiZIDE 5 MG TABLET PO (17:44)
--- NOTE | 2021-07-15 18:13 | PC.NURSE ---
Skin assessment revealed 2 reddened areas on patient's right side of back. One of these measured 4.5 cm wide and 3.5cm tall, the other was 0.5 by by 0.25 and was lower on the back. There is also a healing stage 2 pressure area on his R buttock measuring 0.5 by 0.5. Machine Icer noted that the coccyx was reddened, and applied protective mepilex and explained to family that is a 3 day dressing to protect the area.
[2021-07-15] MEDS: DOCUSATE SODIUM 100 MG CAPSULE PO (20:31)
[2021-07-15] MEDS: MELATONIN 5 MG TABLET PO (20:31)
[2021-07-15] MEDS: traMADol HCL (*CRX) 25 MG TABLET PO (20:32)
[2021-07-15 20:35] LABS: Glucose Point of Care 162 mg/dl (65-105)
[2021-07-16] VITALS: BP 128/70; PULSE 105; RESP 20; TEMP 37.3; O2SAT 93
[2021-07-16] MEDS: LEVOTHYROXINE SODIUM 75 MCG TABLET PO (06:09)
[2021-07-16 07:44] LABS: Glucose Point of Care 152 mg/dl (65-105)
--- NOTE | 2021-07-16 07:54 | PM.IMHP ---
H&P: HPI History of Present Illness Date/Time: 07/16/21 07:54 This is a 86-year-old male that is admitted to [facility] for rehab he has a past medical history of dementia, hypothyroidism, hypertension, type 2 diabetes he was seen in [place] emergency room on 420 abdominal pain. Patient was admitted to the hospital with cholecystitis. Patient is a very poor historian when I asked him questions he was not for sure more than likely due to his dementia. Patient denies any pain he was also treated at [facility] for sepsis is on admission he was tachycardic with some leukocytosis and mildly elevated lactic in the setting of acute cholecystitis is after he was adequately hydrated labs became unremarkable given Zosyn patient had a lap donna on 07/10/2021 completed patient had positive blood cultures. Patient currently denies nausea vomiting and/or diarrhea patient denies any pain. Patient repeats and asked the same questions over and over so on for sure whether or not patient is aware but has not displayed no signs or symptoms of any discomfort at this time Chief Complaint: Deconditioned, status post lap donna, acute on chronic kidney injury Review of Systems Review of Systems: Limited due to patient dementia very forgetful All systems reviewed & are unremarkable except as noted in HPI and below PMFSH Past Medical History Medical History Chronic kidney disease, stage 3 Baseline creatinine between 1.2 and 1.30. GFR is typically in the high 40s or lower 50s. Dementia Depression Hypothyroidism Type 2 diabetes mellitus Surgical History Surgical History History of bilateral cataract extraction History of foot surgery Debridement of diabetic foot ulcer. Family History Family History Other Unknown family medical history Social History Social History Social History: Healthcare power of attorney lawyer: Cassie Granados, daughter. Code status: Full code. Smoking status: Never smoker Smokeless tobacco user: chewing tobacco Additional smoking assessment comments: Quit chewing tobacco in December 2020. Alcohol intake: never Substance use: never Substance use type: does not use Additional living arrangements comments: Lives with his daughter Cassie in [place]. 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 Gender identity (if verbalized by the patient): Male Sexual Orientation (if Verbalized by the Patient): Straight or Heterosexual Spiritual care concerns: No Comments At time as signature, I have reviewed and agree with nursing past medical, social, surgical and family history. Please see nursing chart for further information. There is no relevant family history pertinent to the presenting complaint. Meds Home Medications and Allergies Home Medications Medication Instructions Recorded Confirmed Type glipizide 5 mg PO BID 10/04/19 07/15/21 History levothyroxine 75 mcg PO DAILY 10/04/19 07/15/21 History loratadine 10 mg PO DAILY 10/04/19 07/15/21 History memantine 5 mg PO BID 10/04/19 07/15/21 History aspirin [Adult Low Dose Aspirin] 81 mg PO DAILY 11/01/19 07/15/21 History Allergies Allergy/AdvReac Type Severity Reaction Status Date / Time ibuprofen Allergy Rash Verified 07/09/21 17:30 Sulfa (Sulfonamide Allergy Rash Verified 07/09/21 17:30 Antibiotics) Vital Signs Vital Signs - 24 hr 07/15/21 16:48 07/16/21 00:00 Temperature 98.7 F 99.2 F Pulse Rate 87 105 H Respiratory Rate 18 20 Blood Pressure 146/103 H 128/70 Pulse Oximetry 99 93 Exam Narrative: GENERAL:Well-appearing, well-nourished, and in no acute distress. HEAD:Normocephalic, atraumatic. EYES: PERRLA ENT: Nares clear, no rhinorrhea or epistaxis. Mucous membranes moist. CHEST: Clear to
[2021-07-16 08:00] VITALS: BP 130/81; PULSE 83; RESP 14; TEMP 36.7; O2SAT 94
[2021-07-16] MEDS: DOCUSATE SODIUM 100 MG CAPSULE PO ×2 (08:52→20:39)
[2021-07-16] MEDS: ASPIRIN 81 MG ENTERIC TABLET PO (08:52)
[2021-07-16] MEDS: LORATADINE 10 MG TABLET PO (08:52)
[2021-07-16] MEDS: glipiZIDE 5 MG TABLET PO ×2 (08:52→17:10)
[2021-07-16] MEDS: MEMANTINE 5 MG TABLET PO ×2 (08:52→17:10)
[2021-07-16 11:57] LABS: Glucose Point of Care 177 mg/dl (65-105)
[2021-07-16 16:00] VITALS: BP 132/80; PULSE 83; RESP 14; TEMP 36.7; O2SAT 97
[2021-07-16 16:34] LABS: Glucose Point of Care 256 mg/dl (65-105)
[2021-07-16 20:32] LABS: Glucose Point of Care 85 mg/dl (65-105)
[2021-07-16] MEDS: MELATONIN 5 MG TABLET PO (20:40)
[2021-07-17] VITALS: BP 135/94; PULSE 93; RESP 20; TEMP 36.4; O2SAT 96
[2021-07-17] MEDS: LEVOTHYROXINE SODIUM 75 MCG TABLET PO (06:05)
[2021-07-17 08:00] VITALS: BP 130/63; PULSE 81; RESP 14; TEMP 36.8; O2SAT 95
[2021-07-17 08:04] LABS: Glucose Point of Care 178 mg/dl (65-105)
[2021-07-17] MEDS: glipiZIDE 5 MG TABLET PO ×2 (09:31→16:55)
[2021-07-17] MEDS: MEMANTINE 5 MG TABLET PO ×2 (09:31→16:55)
[2021-07-17] MEDS: ASPIRIN 81 MG ENTERIC TABLET PO (09:31)
[2021-07-17] MEDS: LORATADINE 10 MG TABLET PO (09:31)
[2021-07-17 11:57] LABS: Glucose Point of Care 299 mg/dl (65-105)
[2021-07-17 15:21] VITALS: BP 136/71; PULSE 90; RESP 18; TEMP 36.6; O2SAT 95
[2021-07-17 16:40] LABS: Glucose Point of Care 220 mg/dl (65-105)
[2021-07-17] MEDS: traMADol HCL (*CRX) 25 MG TABLET PO (20:36)
[2021-07-17 20:37] LABS: Glucose Point of Care 223 mg/dl (65-105)
[2021-07-17] MEDS: MELATONIN 5 MG TABLET PO (20:37)
[2021-07-18] VITALS: BP 120/77; PULSE 79; RESP 16; TEMP 36.9; O2SAT 94
[2021-07-18] MEDS: LEVOTHYROXINE SODIUM 75 MCG TABLET PO (06:23)
[2021-07-18 07:49] LABS: Glucose Point of Care 180 mg/dl (65-105)
[2021-07-18 08:00] VITALS: BP 103/52; PULSE 84; RESP 16; TEMP 36.6; O2SAT 95
[2021-07-18] MEDS: MEMANTINE 5 MG TABLET PO ×2 (09:15→17:41)
[2021-07-18] MEDS: LORATADINE 10 MG TABLET PO (09:15)
[2021-07-18] MEDS: ASPIRIN 81 MG ENTERIC TABLET PO (09:15)
[2021-07-18] MEDS: glipiZIDE 5 MG TABLET PO ×2 (09:15→17:41)
[2021-07-18 11:42] LABS: Glucose Point of Care 301 mg/dl (65-105)
[2021-07-18 16:00] VITALS: BP 118/79; PULSE 88; RESP 18; TEMP 36.4; O2SAT 96
[2021-07-18 16:56] LABS: Glucose Point of Care 91 mg/dl (65-105)
[2021-07-18] MEDS: MELATONIN 5 MG TABLET PO (20:41)
[2021-07-18 20:46] LABS: Glucose Point of Care 110 mg/dl (65-105)
[2021-07-18 23:15] VITALS: BP 128/61; PULSE 75; RESP 20; TEMP 36.9; O2SAT 95
[2021-07-19 05:14] LABS: Hematocrit 35.3 % (37.0-46.0); Mean Corpuscular Hemoglobin 32.4 pg (27.0-31.0); Mean Corpuscular Volume 95.4 fL (78.0-102.0); Mean Platelet Volume 10.4 fl (8.7-11.0); Platelet Count Result 377 K/mm3 (150-420); Red Cell Distribution Width 13.5 % (11.6-14.4); White Blood Count 7.6 K/mm3 (4.8-10.8)
[2021-07-19 05:22] LABS: Anion Gap 11 mmol/L (8-16); Blood Urea Nitrogen 12 mg/dL (7-18); Calcium 8.7 mg/dL (8.5-10.1); Carbon Dioxide 25 mmol/L (21-32); Chloride 110 mmol/L (98-108); Estimated CRCL calculation 43 ml/min; Estimated Glomerular Filt Rate > 60; Glucose 112 mg/dL (70-99); Osmolality Calculated 302 mOsm/kg (285-295); Potassium 4.6 mmol/L (3.5-5.1); Sodium 146 mmol/L (136-145)
[2021-07-19] MEDS: LEVOTHYROXINE SODIUM 75 MCG TABLET PO (05:47)
--- NOTE | 2021-07-19 07:47 | PC.NURSE ---
Responded to bed alarm, assisted to standing position and patient used urinal, ambulated with use of gait belt and walker to chair, small smear of BM noted, hygiene care given and clean dry attends applied, patient able to sit self down in chair un assisted, taking verbal cues well this am, call aaron given, chair alarm activated and patient in room close to desk for safety, tolerated activity well with minimal assist needed
[2021-07-19 08:00] VITALS: BP 134/68; PULSE 75; RESP 16; TEMP 36.6; O2SAT 95
[2021-07-19 08:03] LABS: Glucose Point of Care 139 mg/dl (65-105)
[2021-07-19] MEDS: ASPIRIN 81 MG ENTERIC TABLET PO (09:09)
[2021-07-19] MEDS: LORATADINE 10 MG TABLET PO (09:09)
[2021-07-19] MEDS: MEMANTINE 5 MG TABLET PO ×2 (09:09→16:27)
[2021-07-19] MEDS: glipiZIDE 5 MG TABLET PO ×2 (09:10→16:27)
[2021-07-19 11:54] LABS: Glucose Point of Care 267 mg/dl (65-105)
[2021-07-19 16:00] VITALS: BP 104/78; PULSE 95; RESP 16; TEMP 36.4; O2SAT 94
[2021-07-19 16:32] LABS: Glucose Point of Care 219 mg/dl (65-105)
--- NOTE | 2021-07-19 18:10 | PC.NURSE ---
pt walked to nurses station and back to chair with walker and x2 assist, pt sitting in recliner, feet elevated, daughter in room, chair alarm on
[2021-07-19 19:58] LABS: Glucose Point of Care 239 mg/dl (65-105)
[2021-07-19] MEDS: MELATONIN 5 MG TABLET PO (20:10)
[2021-07-19] MEDS: traMADol HCL (*CRX) 25 MG TABLET PO (20:11)
[2021-07-19 23:47] VITALS: BP 110/64; PULSE 91; RESP 20; TEMP 36.4; O2SAT 99
[2021-07-20] MEDS: LEVOTHYROXINE SODIUM 75 MCG TABLET PO (06:03)
[2021-07-20 07:45] LABS: Glucose Point of Care 180 mg/dl (65-105)
[2021-07-20 08:00] VITALS: BP 95/58; PULSE 89; RESP 16; TEMP 36.6; O2SAT 93
[2021-07-20] MEDS: ASPIRIN 81 MG ENTERIC TABLET PO (08:56)
[2021-07-20] MEDS: glipiZIDE 5 MG TABLET PO ×2 (08:56→16:51)
[2021-07-20] MEDS: LORATADINE 10 MG TABLET PO (08:56)
[2021-07-20] MEDS: MEMANTINE 5 MG TABLET PO ×2 (08:57→16:51)
[2021-07-20 11:37] LABS: Glucose Point of Care 279 mg/dl (65-105)
[2021-07-20 16:00] VITALS: BP 106/65; PULSE 93; RESP 18; TEMP 36.4; O2SAT 96
[2021-07-20 16:55] LABS: Glucose Point of Care 174 mg/dl (65-105)
[2021-07-20] MEDS: traMADol HCL (*CRX) 25 MG TABLET PO (20:15)
[2021-07-20 20:19] LABS: Glucose Point of Care 271 mg/dl (65-105)
[2021-07-20] MEDS: MELATONIN 5 MG TABLET PO (20:23)
[2021-07-21] VITALS: BP 121/51; PULSE 87; RESP 20; TEMP 36.2; O2SAT 96
[2021-07-21] MEDS: LEVOTHYROXINE SODIUM 75 MCG TABLET PO (06:07)
[2021-07-21 07:42] LABS: Glucose Point of Care 161 mg/dl (65-105)
[2021-07-21 08:00] VITALS: BP 114/92; PULSE 92; RESP 16; TEMP 36.3; O2SAT 94
[2021-07-21] MEDS: MEMANTINE 5 MG TABLET PO (09:06)
[2021-07-21] MEDS: LORATADINE 10 MG TABLET PO (09:06)
[2021-07-21] MEDS: ASPIRIN 81 MG ENTERIC TABLET PO (09:06)
[2021-07-21] MEDS: glipiZIDE 5 MG TABLET PO (09:06)
[2021-07-21 11:46] LABS: Glucose Point of Care 281 mg/dl (65-105)
--- NOTE | 2021-07-21 13:53 | PM.DS ---
DS: Admitting Diagnosis Discharge Date 07/21/2021 Admitting Diagnosis Cholecystitis, weakness DS: Discharge Diagnosis Discharge Diagnosis (1) Physical deconditioning: Code(s): R53.81 - Other malaise Status: Acute Assessment and Plan: Physical therapy to evaluate and treat Maintain adequate nutrition Fall precautions Up to recliner chair for all meals (2) Chronic kidney disease, stage 3: Qualifiers: Chronic kidney disease stage 3 subtype: unspecified whether 3a or 3b Qualified Code(s): N18.30 - Chronic kidney disease, stage 3 unspecified Code(s): N18.30 - Chronic kidney disease, stage 3 unspecified Status: Acute Assessment and Plan: Baseline creatinine is 1.2-1.5 Monitor levels weekly Encourage good intake Monitor output and input Weekly weights (3) Type 2 diabetes mellitus: Qualifiers: Chronic kidney disease stage: stage 3 (moderate) Chronic kidney disease stage 3 subtype: unspecified whether 3a or 3b Diabetes mellitus complication detail: with chronic kidney disease Diabetes mellitus complication status: with kidney complications Diabetes mellitus rodent exterminator insulin use: unspecified senior care insulin use status Qualified Code(s): E11.22 - Type 2 diabetes mellitus with diabetic chronic kidney disease; N18.30 - Chronic kidney disease, stage 3 unspecified Code(s): E11.9 - Type 2 diabetes mellitus without complications Status: Acute Assessment and Plan: Take glipizide Monitor blood sugar twice daily (4) Hypothyroidism: Qualifiers: Hypothyroidism type: unspecified Qualified Code(s): E03.9 - Hypothyroidism, unspecified Code(s): E03.9 - Hypothyroidism, unspecified Status: Acute Assessment and Plan: TSH stable Continue home medication (5) Acute cholecystitis: Code(s): K81.0 - Acute cholecystitis Status: Acute Assessment and Plan: Status post lap donna Monitor for pain (6) Dementia: Qualifiers: Alzheimer's disease onset: unspecified onset Dementia behavioral disturbance: without behavioral disturbance Dementia type: Alzheimer's Qualified Code(s): G30.9 - Alzheimer's disease, unspecified; F02.80 - Dementia in other diseases classified elsewhere without behavioral disturbance Code(s): F03.90 - Unspecified dementia without behavioral disturbance Status: Acute Assessment and Plan: Initiate fall precautions Continue home medication memantine DS: Summary Hospital Course Reason for hospitalization: Weakness, rehab, cholecystitis Hospital Course: This is a 86-year-old male that is admittedf for rehab he has a past medical history of dementia, hypothyroidism, hypertension, type 2 diabetes Patient was admitted to the hospital with cholecystitis. Mr. Sanches is very confused although he is pleasantly confused and will do anything that is asked. Patient remains a very poor historian he has progressed with therapy he still is not aware of danger but he is with family at all times. Patient is able to walk down the hallway he is eating and drinking without any difficulties he utilizes a walker with ambulation. Patient has remained afebrile no signs and symptoms of infection patient's blood sugar are fairly well controlled as we followed with insulin. Patient has an appointment with GI tomorrow family would like to take home today and take him to his appointment tomorrow. At this point we will discharge patient home. Patient currently denies nausea vomiting and/or diarrhea patient denies any pain. Patient repeats and asked the same questions over and over so on for sure whether or not patient is aware but has not displayed no signs or symptoms of any discomfort at this time Time Spent with Patient Time attestation: Total time spent providing and/or coordinating discharge services: Exam Narrative: GENERAL:Well-appearing, well-nourished, and in no acute distre
--- NOTE | 2021-07-21 14:58 | PC.NURSE ---
Pt discharged to home with family. VSS. Pt up with walker and assist x1. Discharge instructions given to pt and family. Medications and doctor follow up appointments reviewed with pt and family. RN transported pt to car via .
--- NOTE | 2021-07-22 13:07 | PC.NURSE ---
Daughter states she received and understood the discharge instructions. She also states the care was excellent from the nurses to OT to PT and Maryann was the sweetest.
== END 2021-07-21 14:45 | disposition home health service (06) | DRG 948 ==
PROVIDERS: Admitting Provider Internal Medicine; PCP Family Medicine Sports Medicine; Visit Provider Nurse Practitioner Family
DX: R53.81 Other malaise (principal); I12.9 Hypertensive chronic kidney disease with stage 1 through stage 4 chronic kidney disease, or unspecified chronic kidney disease; N18.30 Chronic kidney disease, stage 3 unspecified; E11.22 Type 2 diabetes mellitus with diabetic chronic kidney disease; E03.9 Hypothyroidism, unspecified; F03.90 Unspecified dementia, unspecified severity, without behavioral disturbance, psychotic disturbance, mood disturbance, and anxiety; Z79.82 Long term (current) use of aspirin; Z90.49 Acquired absence of other specified parts of digestive tract
CPT/HCPCS: 36415; 80048; 82948; 85027; 97110; 97162; 97165; 97530; 97535; A9270; J1815

== ENCOUNTER 2022-01-22 18:06 | Emergency (ER) | payer MEDICARE, SELFPAY ==
[2022-01-22] VITALS (11 sets, daily range): BP systolic 126–148; BP diastolic 72–94; PULSE 67–88; RESP 18–20; TEMP 36.8; O2SAT 96–100
--- NOTE | ~2022-01-22 | CT_ITS ---
EXAMINATION: CT brain wo con DATE: 01/22/2022 19:16 INDICATION: Ground-level fall. Abrasion to back of head. TECHNIQUE: Computed tomography (CT) of the head was performed without intravenous contrast. The mA wa s adjusted according to patient size. Iterative reconstruction technique was employed. Exam dose: 60 5.33 mGy-cm total exam DLP. COMPARISON: 01/14/2021 CT brain FINDINGS: Posterior midline parietal cephalohematoma. No skull fracture is detected. Bilateral vertebral artery, basilar artery and prominent bilateral carotid siphon internal carotid ar lavern calcifications. There is nonspecific diminished attenuation of the cerebral white matter, likely due to chronic small vessel ischemic changes. No intracranial mass lesion or hemorrhage or cerebrovascular accident. No midline shifts or mass effe ct. No subdural or epidural hematoma. There is prominent central and cortical cerebral and moderate moderate cerebellar atrophy. No significant abnormality of the paranasal sinuses or mastoid air cells. IMPRESSION: Posterior midline parietal cephalohematoma without underlying skull fracture or tumor co ntrecoup intracranial injury Central and cortical cerebral and cerebellar atrophy Cerebral atherosclerosis and chronic small vessel ischemic changes Reviewed, dictated and finalized at [facility]. Reviewed, dictated and finalized at [facility]. IMPRESSION: Posterior midline parietal cephalohematoma without underlying skul l fracture or tumor contrecoup intracranial injury Central and cortical cerebral and cerebellar atrophy Cerebral atherosclerosis and chronic small vessel ischemic changes
--- NOTE | ~2022-01-22 | CT_ITS ---
EXAMINATION: CT cervical spine wo con DATE: 01/22/2022 19:16 INDICATION: Ground-level fall. Abrasion to back of head. TECHNIQUE: Computed tomography (CT) of the cervical spine was performed without intravenous contrast. Automated exposure control and iterative reconstruction technique were employed. Exam dose: 278.09 mGy-cm total exam DLP. COMPARISON: None FINDINGS: C1 and C2 are normally aligned and the odontoid process is intact. No fracture or dislocation or locked facet or prevertebral soft tissue swelling is detected. 1.3 mm anterolisthesis at C7-T1. Mild to moderate degenerative disc disease of the cervical spine. There is degenerative change at the apophyseal joints throughout the cervical spine. IMPRESSION: Mild to moderate cervical spondylosis; no fracture or dislocation Reviewed, dictated and finalized at [facility]. Reviewed, dictated and finalized at [facility].
--- NOTE | 2022-01-22 18:45 | ED.FALL ---
HPI - Fall General Chief Complaint: Fall Stated Complaint: Fall, Head Abrasion Time Seen by Provider: 01/22/22 18:39 Source: patient Mode of arrival: ambulatory Limitations: no limitations History of Present Illness HPI Narrative: Presents with family c/o fall while ambulating with walker on sidewalk striking back of head on ground. Reports a lip on the concrete caused his walker to stop suddenly throwing him off balance. Denies loss of consciousness or other injuries aside from hitting head. Answers all questions without diff. Related Data Home Medications Medication Instructions Recorded Confirmed glipizide 5 mg tablet 5 mg PO BID 10/04/19 07/23/21 levothyroxine 75 mcg tablet 75 mcg PO DAILY 10/04/19 07/23/21 loratadine 10 mg tablet 10 mg PO DAILY 10/04/19 07/23/21 memantine 5 mg tablet 5 mg PO BID 10/04/19 07/23/21 aspirin 81 mg tablet,delayed 81 mg PO DAILY 11/01/19 07/23/21 release (Adult Low Dose Aspirin) Allergies Allergy/AdvReac Type Severity Reaction Status Date / Time ibuprofen Allergy Rash Verified 01/22/22 18:32 Sulfa (Sulfonamide Allergy Rash Verified 01/22/22 18:32 Antibiotics) Review of Systems Review of Systems: CONSTITUTIONAL: Denies fever, chills, or sweats. EYES: Denies visual changes, redness, or discharge. ENT: Denies rhinorrhea, congestion, sore throat, or otalgia. CARDIOVASCULAR: Denies chest pain, palpitations, or edema. RESPIRATORY: Denies cough or dyspnea. GASTROINTESTINAL: Denies abdominal pain, nausea, vomiting, or diarrhea. GENITOURINARY: Denies dysuria or hematuria. SKIN: Denies rash or itching. Abrasion to back of head. MUSCULOSKELETAL: Denies back pain, joint pain, or myalgia. NEUROLOGIC: Denies headache, numbness, or weakness. PSYCHIATRIC: Denies anxiety or depression. [facility] Past Medical History Medical History Chronic kidney disease, stage 3 Baseline creatinine between 1.2 and 1.30. GFR is typically in the high 40s or lower 50s. Dementia Depression Hypothyroidism Type 2 diabetes mellitus Surgical History Surgical History History of bilateral cataract extraction History of foot surgery Debridement of diabetic foot ulcer. Hx laparoscopic cholecystectomy 07/10/21 Family History Family History Other Unknown family medical history Social History Social History Social History: Healthcare power of health lead: Cassie Granados, daughter. Code status: Full code. Smoking status: Never smoker Smokeless tobacco user: chewing tobacco Additional smoking assessment comments: Quit chewing tobacco in December 2020. Alcohol intake: never Substance use: never Substance use type: does not use Additional living arrangements comments: Lives with his daughter Cassie in [place]. 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 Gender identity (if verbalized by the patient): Male Sexual Orientation (if Verbalized by the Patient): Straight or Heterosexual Spiritual care concerns: No Exam Narrative: GENERAL: Well-appearing, well-nourished, and in no acute distress. HEAD: Normocephalic, atraumatic. EYES: PERRLA and EOMI. ENT: Nares clear, no rhinorrhea or epistaxis. Mucous membranes moist. NECK: Supple. CHEST: Clear to auscultation. No respiratory distress. HEART: Regular rate and rhythm. No murmur heard. Normal peripheral pulses. ABDOMEN: Soft, nontender, nondistended, normal active bowel sounds. EXTREMITIES: Normal range of motion. No edema. SKIN: Warm, dry, no rash. Abrasion noted to occipital head with scant bleeding. No palpable hematoma. NEURO: No focal deficits. Alert and oriented x3. PSYCH: Normal mood and affect. Course Vital Signs Vital signs: Vital Signs Temperature 36.8 C 01/22/22 18:15 Pulse
--- NOTE | 2022-01-22 19:04 | PC.NURSE ---
Patient off unit to CT.
--- NOTE | 2022-01-22 19:14 | PC.NURSE ---
Patient report given to JEAN-PAUL Ba. All questions answered and care of patient transferred.
== END 2022-01-22 20:09 | disposition home or self-care (01) ==
PROVIDERS: Emergency Provider Nurse Practitioner
DX: S00.03XA Contusion of scalp, initial encounter (principal); E11.22 Type 2 diabetes mellitus with diabetic chronic kidney disease; N18.30 Chronic kidney disease, stage 3 unspecified; F03.90 Unspecified dementia, unspecified severity, without behavioral disturbance, psychotic disturbance, mood disturbance, and anxiety; E03.9 Hypothyroidism, unspecified; Z98.42 Cataract extraction status, left eye; Z98.41 Cataract extraction status, right eye; Z87.891 Personal history of nicotine dependence; M47.812 Spondylosis without myelopathy or radiculopathy, cervical region; I67.2 Cerebral atherosclerosis; Z79.82 Long term (current) use of aspirin; Z79.84 Long term (current) use of oral hypoglycemic drugs; W18.09XA Striking against other object with subsequent fall, initial encounter
CPT/HCPCS: 70450; 72125; 99284

== ENCOUNTER 2022-03-04 13:44 | Outpatient (CLI) | payer MEDICARE, SELFPAY ==
[2022-03-04 15:38] LABS: Hematocrit 44.1 % (42.0-52.0); Hemoglobin 14.6 g/dL (14.0-18.0); Hemoglobin A1C 6.4 % (<5.7); Mean Corpuscular HGB Conc 33.1 g/dl (32-36); Mean Corpuscular Hemoglobin 32.4 pg (26-34); Mean Platelet Volume 11.2 fl (7.4-10.4); Platelet Count Result 222 k/mm3 (150-375); Red Cell Distribution Width 14.4 % (11.5-14.5); White Blood Count 5.7 K/mm3 (4.5-10.0)
[2022-03-04 15:47] LABS: Alanine Aminotransferase 16 U/L (6-50); Albumin Level 4.3 g/dL (3.5-5.1); Alkaline Phosphatase 78 U/L (38-126); Anion Gap 6 mmol/L (8-16); Aspartate Amino Transferase 23 U/L (17-59); Bilirubin,Total 0.3 mg/dL (0.2-1.3); Blood Urea Nitrogen 30 mg/dL (9-20); Calcium 8.9 mg/dL (8.4-10.2); Carbon Dioxide 29 mmol/L (22-30); Chloride 102 mmol/L (98-107); Cholesterol 157 mg/dL (0-200); Estimated Glomerular Filt Rate 53; Glucose 135 mg/dL (65-110); HDL Direct 44 mg/dL; Potassium 4.2 mmol/L (3.4-5.0); Sodium 137 mmol/L (137-145); Triglycerides 120 mg/dL (<150)
[2022-03-04 15:56] LABS: Add Urine Microscopic? NO; Appearance Urine Clear (Clear); Bilirubin Urine Negative (Negative); Blood Urine Negative (Negative); Color Urine Light Yellow (Yellow); Glucose Urine UA Negative (Negative); Ketones Urine Negative (Negative); Leukocyte Esterase Ur Negative LEU/UL (NEGATIVE); Nitrate Urine Negative (Negative); Protein Urine Negative (Negative); Urobilinogen Urine 0.2 mg/dL (<2.0); pH Urine 5.5 (5.0-9.0)
[2022-03-04 16:03] LABS: Vitamin D 25 Hydroxy 28.4 ng/mL
[2022-03-04 16:05] LABS: LDL Cholesterol Direct 82 mg/dL
[2022-03-04 16:16] LABS: Creatinine Urine 102.9 mg/dL
[2022-03-04 17:30] LABS: MALB Creatinine Ratio < 5.8 mg/g (0-30); Microalbumin Urine Random < 6.0 mg/L (0-16.7)
== END 2022-03-04 13:45 | disposition home or self-care (01) ==
DX: E11.311 Type 2 diabetes mellitus with unspecified diabetic retinopathy with macular edema (principal); N18.32 Chronic kidney disease, stage 3b; Z13.21 Encounter for screening for nutritional disorder; E11.22 Type 2 diabetes mellitus with diabetic chronic kidney disease; E11.40 Type 2 diabetes mellitus with diabetic neuropathy, unspecified; Z13.220 Encounter for screening for lipoid disorders; E03.9 Hypothyroidism, unspecified
CPT/HCPCS: 36415; 80053; 80061; 81003; 82043; 82306; 83036; 84443; 85027

== ENCOUNTER 2022-03-20 22:39 | Observation (INO) | payer MEDICARE, SELFPAY ==
--- NOTE | ~2022-03-20 | CT_ITS ---
EXAMINATION: CT brain wo con DATE: 03/20/2022 22:58 INDICATION: Weakness. TECHNIQUE: Computed tomography (CT) of the head was performed without intravenous contrast. The mA wa s adjusted according to patient size. Iterative reconstruction technique was employed. The dose-lengt h product was 681.00 mGy-cm. COMPARISON: Head CT 01/22/2022 FINDINGS: Motion artifact obscures the superior aspect of the brain. There are scattered areas of low attenuation in the cerebral white matter. There is no intracranial hemorrhage, acute infarction, or abnormal intracranial mass lesion. The ventricles are normal in size. There are likely changes of ocu lar lens replacement surgeries. There is mild mucosal thickening in the paranasal sinuses. The mastoi d air cells are normal. IMPRESSION: 1. Stable mild nonspecific cerebral white matter disease, which likely represents chronic small vesse l ischemic disease. I discussed this case with Dr. Dyer. 2. Motion artifact obscures the superior aspect of the brain. Reviewed, dictated and finalized at location [facility]. ONAL REHABILITATION DIRECTOR IMPRESSION: 1. Stable mild nonspecific cerebral white matter disease, which likely represen ts chronic small vessel ischemic disease. I discussed this case with Dr. Dyer . 2. Motion artifact obscures the superior aspect of the brain.
--- NOTE | ~2022-03-20 | XR_ITS ---
EXAMINATION: XR chest 1V portable DATE: 03/20/2022 23:44 INDICATION: Weakness. TECHNIQUE: A single frontal view of the chest was obtained. COMPARISON: Chest single view 01/14/2021 FINDINGS: There is mild atelectasis versus scarring in the lower lung zones. No pleural effusion or p neumothorax. The heart size is normal. Surgical clips in the right upper quadrant are likely from cho lecystectomy. There is a suture anchor in right humeral head. IMPRESSION: 1. Mild atelectasis versus scarring in the lower lung zones. Reviewed, dictated and finalized at location [facility]. SWARE SELECTOR
--- NOTE | ~2022-03-20 | MR_ITS ---
EXAMINATION: MR brain/brain stem wo/w con DATE: 03/21/2022 13:16 INDICATION: Slurred speech. TECHNIQUE: Magnetic resonance imaging (MRI) of the brain and brainstem was performed without and with 14 mL MultiHance intravenous contrast. COMPARISON: Head CT 03/20/2022 FINDINGS: There is no intracranial hemorrhage, acute infarction, or abnormal intracranial mass lesion . There are scattered areas of nonspecific increased T2-weighted signal intensity in the cerebral whi te matter. The ventricles are normal in size. There is a small left mastoid effusion. There is mild m ucosal thickening in the paranasal sinuses. There are likely changes of ocular lens replacement surge alphonse. IMPRESSION: 1. Mild nonspecific cerebral white matter disease, which likely represents chronic small vessel ische que disease. Reviewed, dictated and finalized at location [facility]. CE SECRETARY IMPRESSION: 1. Mild nonspecific cerebral white matter disease, which likely represents dress finisher ronaldo small vessel ischemic disease.
--- NOTE | 2022-03-20 22:46 | ECG_ITS ---
Measurements Intervals [place] Rate: 105 P: 27 WI: 202 QRS: 81 QRSD: 132 T: 43 QT: 343 QTc: 453 Interpretive Statements SINUS TACHYCARDIA RIGHT BUNDLE BRANCH BLOCK [120+ ms QRS DURATION, UPRIGHT V1, 40+ ms S IN I/aVL/V4/V5/V6] COMPARED TO ECG 01/14/2021 19:45:38 NO SIGNIFICANT CHANGES Electronically Signed On 03-21-2022 9:47:36 FAMILY READINESS SUPPORT ASSISTANT by Dru Zazueta M.D.
[2022-03-20 23:01] LABS: Glucose Point of Care 201 mg/dl (65-105)
[2022-03-20 23:02] VITALS: BP 111/69; PULSE 115; RESP 22; TEMP 38; O2SAT 99
--- NOTE | 2022-03-20 23:12 | ED.NEUROSD ---
HPI - Neuro Symptoms/Deficit General Chief Complaint: Neuro Symptoms/Deficit Stated Complaint: weakness, altered mental status Time Seen by Provider: 03/20/22 22:45 Source: patient, family, RN notes reviewed and old records reviewed Mode of arrival: wheelchair Limitations: dementia History of Present Illness HPI Narrative: This is an 86 year old male with history of dementia, hypothyroid and DM who presents for evaluation of weakness. Patient's daughter is at bedside to assist with history. She states around 7 pm patient developed sudden onset of weakness. She states patient was assisted up from table and he was able to walk to another room with his walker. She reports when patient sat down she noticed that he had some garbled speech and he started having abnormal shaking. She also recorded a video in which patient was not responding to questions and he was abnormally moving his head back and forth. THis last approximately 2 minutes. PAtient had urinary incontinence on way to hospital. She also reports at onset of weakness patient reported that his stomach was bothering him. PAtient is oriented to person. He denies any abdominal pain or any complaints at this time. His daughter denies history of seizures, CVA or TIA. She denies any recent falls. She denies similar episodes. Related Data Home Medications Medication Instructions Recorded Confirmed glipizide 5 mg tablet 5 mg PO BID 10/04/19 03/21/22 levothyroxine 75 mcg tablet 75 mcg PO DAILY 10/04/19 03/21/22 loratadine 10 mg tablet 10 mg PO DAILY 10/04/19 03/21/22 memantine 5 mg tablet 5 mg PO BID 10/04/19 03/21/22 aspirin 81 mg tablet,delayed 81 mg PO DAILY 11/01/19 03/21/22 release (Adult Low Dose Aspirin) Allergies Allergy/AdvReac Type Severity Reaction Status Date / Time ibuprofen Allergy Rash Verified 03/20/22 23:20 Sulfa (Sulfonamide Allergy Rash Verified 03/20/22 23:20 Antibiotics) Review of Systems Review of Systems: ROS unobtainable: Yes unobtainable due to mental status PMFSH Past Medical History Medical History Chronic kidney disease, stage 3 Baseline creatinine between 1.2 and 1.30. GFR is typically in the high 40s or lower 50s. Dementia Depression Hypothyroidism Type 2 diabetes mellitus Surgical History Surgical History History of bilateral cataract extraction History of foot surgery Debridement of diabetic foot ulcer. Hx laparoscopic cholecystectomy 07/10/21 Family History Family History Other Unknown family medical history Social History Social History Social History: Healthcare power of civil attorney: Cassie Granados, daughter. Code status: Full code. Smoking status: Never smoker Smokeless tobacco user: chewing tobacco Additional smoking assessment comments: Quit chewing tobacco in December 2020. Alcohol intake: never Substance use: never Substance use type: does not use Additional living arrangements comments: Lives with his daughter Cassie in [place]. 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 Gender identity (if verbalized by the patient): Male Sexual Orientation (if Verbalized by the Patient): Straight or Heterosexual Spiritual care concerns: Yes Exam Const: General: no acute distress and alert Nutritional Appearance: well nourished Other: oriented to person HENMT: Head: normal to inspection Mouth: Yes Normal oral and palatal mucosa present, Yes lip normal and Yes moist mucous membranes Other: right pupil irregular from previous surgery Eyes: EOM: EOMs intact bilaterally Chest: Chest palpation & inspection: normal inspection of the chest Resp: Effort & Inspection: normal respiratory effort Auscultation: clear to auscultation bilaterally C
[2022-03-20 23:17] LABS: Basophils Absolute Auto 0.1 K/mm3 (0.0-0.1); Basophils Percent Auto 0.9 % (0.2-1.2); Eosinophils Absolute Auto 0.1 K/mm3 (0-0.3); Eosinophils Percent Auto 1.4 % (0-4.4); Hematocrit 46.5 % (42.0-52.0); Hemoglobin 15.3 g/dL (14.0-18.0); Immature Granulocyte Absolute 0.01 K/mm3 (0.00-0.031); Immature Granulocyte Percent A 0.2 % (0-0.5); Lymphocytes Absolute Auto 0.48 K/mm3 (0.9-3.2); Lymphocytes Percent Auto 8.2 % (18.3-44.2); Mean Corpuscular HGB Conc 32.9 g/dl (32-36); Mean Corpuscular Hemoglobin 32.1 pg (26-34); Mean Corpuscular Volume 97.5 fl (80-100); Mean Platelet Volume 10.9 fl (7.4-10.4); Monocytes Absolute Auto 0.6 K/mm3 (0.1-0.6); Monocytes Percent Auto 10.4 % (2.6-8.5); Neutrophils Absolute Auto 4.7 K/mm3 (1.3-6.7); Neutrophils Percent Auto 78.9 % (45.5-73.1); Platelet Count Result 199 k/mm3 (150-375); Red Blood Count 4.77 M/mm3 (4.6-6.20); Red Cell Distribution Width 13.9 % (11.5-14.5); White Blood Count 5.9 K/mm3 (4.5-10.0)
[2022-03-20] MEDS: SODIUM CHLORIDE 0.9% IV 1,000 ML 999 ML IV CONT (23:19)
[2022-03-20 23:27] LABS: Lactic Acid Reflex 2.7 mmol/L (0.7-2.0)
[2022-03-20 23:28] LABS: Alanine Aminotransferase 20 U/L (6-50); Albumin Level 4.5 g/dL (3.5-5.1); Alkaline Phosphatase 98 U/L (38-126); Anion Gap 9 mmol/L (8-16); Aspartate Amino Transferase 23 U/L (17-59); Bilirubin,Total 0.5 mg/dL (0.2-1.3); Blood Urea Nitrogen 22 mg/dL (9-20); Calcium 8.9 mg/dL (8.4-10.2); Carbon Dioxide 24 mmol/L (22-30); Chloride 104 mmol/L (98-107); Estimated CRCL calculation 38 ml/min; Estimated Glomerular Filt Rate 53; Glucose 184 mg/dL (65-110); Magnesium 2.1 mg/dL (1.6-2.3); Partial Thromboplastin Time 31.3 SECONDS (22.3-36.8); Potassium 4.3 mmol/L (3.4-5.0); Prothrombin Time 13.1 Seconds (11.1-14.7); Sodium 137 mmol/L (137-145)
[2022-03-20 23:39] LABS: Troponin I < 0.012 ng/mL (0.000-0.034)
[2022-03-20 23:44] LABS: Lipase < 10 U/L (23-300)
[2022-03-20 23:52] LABS: Influenza A QL RT-PCR Negative (Negative); Influenza B QL RT-PCR Negative (Negative); SARS-CoV-2 RNA PCR Positive
[2022-03-21] VITALS (10 sets, daily range): BP systolic 99–118; BP diastolic 46–78; PULSE 62–91; RESP 18–20; TEMP 36.8–37.9; O2SAT 97–100; BMI 23.5
[2022-03-21 00:39] LABS: Add Urine Microscopic? NO; Appearance Urine Clear (Clear); Bilirubin Urine Negative (Negative); Blood Urine Negative (Negative); Color Urine Yellow (Yellow); Glucose Urine UA Negative (Negative); Ketones Urine Negative (Negative); Leukocyte Esterase Ur Negative LEU/UL (Negative); Nitrate Urine Negative (Negative); Protein Urine Negative (Negative); Urobilinogen Urine 0.2 mg/dL (<2.0)
[2022-03-21 00:46] LABS: RBC Urine 0-2 /hpf (0-2); WBC Urine 0-3 /hpf
[2022-03-21] MEDS: SODIUM CHLORIDE 0.9% IV 1,000 ML 999 ML IV CONT (01:36)
[2022-03-21 02:15] LABS: Reflex Lactic Acid Yes or No Add Lactic
--- NOTE | 2022-03-21 02:20 | PM.IMHP ---
H&P: HPI History of Present Illness Date/Time: 03/21/22 02:20 Chief Complaint: weakness, altered mental status Narrative: Patient is an 86-year-old male past medical history of dementia, type 2 diabetes, hypothyroidism, seasonal allergies who presents the ED with complaints of weakness. Patient lives with his daughter. he is a poor historian considering his dementia, oriented x2. he knows he is in hospital and his name otherwise does not know the year. Daughter noticed today that patient sudden-onset weakness, change in speech and some convulsions. Patient has no history of seizure or stroke. No recent trauma, med changes, recurrent episodes. In the ED: symptoms appear to have resolved by the time patient came to the ED. Patient is found to have COVID-19 positive, breathing comfortably on room air, T-max 38.0?. a convulsion possible seizure will admit patient to the hospital for observation for COVID-19 and seizure-like activity. Review of Systems Review of Systems: limited due to dementia Constitutional: No Fever, No Chills, No Night Sweats, No Fatigue, No Malaise ENT/Mouth: No Hearing Changes, No Ear Pain, No Nasal Congestion, No Sinus Pain, No Hoarseness, No sore throat, No Rhinorrhea, No Swallowing Difficulty Eyes: No Eye Pain, No Redness, No Vision Changes Cardiovascular: No Chest Pain, No Palpitations, No Dyspnea on Exertion, No Orthopnea, No Claudication, No Edema Respiratory: No Cough, No Sputum, No Wheezing, No Shortness of Breath Gastrointestinal: No Nausea, No Vomiting, No Diarrhea, No Constipation, No Abdominal Pain, No Heartburn, No Hematochezia, No Melena Genitourinary: No Dysuria, No Urinary Frequency, No Hematuria, No Urinary Incontinence, No Urgency Musculoskeletal: No Arthralgias, No Myalgias, No Joint Swelling, No Joint Stiffness, No Back Pain Skin: No Skin Lesions, No Pruritis, No Hair Changes Neuro: No Weakness, No Numbness, No Paresthesias, No Loss of Consciousness, No Syncope, No Dizziness, No Headache Psych: No Anxiety/Panic, No Depression, No Insomnia Heme: No Bruising, No Bleeding Lymph: No Adenopathy Endocrine: No Polyuria, No Polydipsia, No Temperature Intolerance PMFSH Past Medical History Medical History Chronic kidney disease, stage 3 Baseline creatinine between 1.2 and 1.30. GFR is typically in the high 40s or lower 50s. Dementia Depression Hypothyroidism Type 2 diabetes mellitus Surgical History Surgical History History of bilateral cataract extraction History of foot surgery Debridement of diabetic foot ulcer. Hx laparoscopic cholecystectomy 07/10/21 Family History Family History Other Unknown family medical history Social History Social History Social History: Healthcare power of insurance attorney: Cassie Granados, daughter. Code status: Full code. Smoking status: Never smoker Smokeless tobacco user: chewing tobacco Additional smoking assessment comments: Quit chewing tobacco in December 2020. Alcohol intake: never Substance use: never Substance use type: does not use Additional living arrangements comments: Lives with his daughter Cassie in [place]. 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 Gender identity (if verbalized by the patient): Male Sexual Orientation (if Verbalized by the Patient): Straight or Heterosexual Spiritual care concerns: Yes Comments family history limited due to dementia Meds Home Medications and Allergies Home Medications Medication Instructions Recorded Confirmed Type glipizide 5 mg tablet 5 mg PO BID 10/04/19 07/23/21 History levothyroxine 75 mcg tablet 75 mcg PO DAILY 10/04/19 07/23/21 History loratadine 10 mg tablet 10 mg PO DAILY 10/04/19 07/23/21 History narendra
--- NOTE | 2022-03-21 02:31 | ADMGEN ---
This patient, Mk Sanches, was admitted to Medical Room 348-. Patient/family oriented to hospital policies and general routines including ID bracelet, bed and alarms, visiting hours, pain management, procedures, bathroom and other care routines, personal items, smoking policy, room service/diet, and visiting hours. Information on how to activate the Rapid Response Team has been discussed. Patient/Family are encouraged to report perceived risks to care and to ask questions if they do not understand what they are told or what they should do.
[2022-03-21 03:25] LABS: Lactic Acid 1.1 mmol/L (0.7-2.0)
[2022-03-21] MEDS: ACETAMINOPHEN 325 MG TABLET 650 MG PO (03:38)
[2022-03-21 07:47] LABS: Hemoglobin A1C 6.6 % (<5.7)
[2022-03-21 08:46] LABS: Glucose Point of Care 84 mg/dl (65-105)
[2022-03-21] MEDS: HEPARIN SODIUM 5,000 UNITS/ML VIAL 5000 UNITS SUB-Q ×2 (10:31→20:57)
--- NOTE | 2022-03-21 13:10 | PM.IMPN ---
Progress Note: A&P Assessment and Plan (1) COVID-19: Code(s): U07.1 - COVID-19 Status: Acute (2) Convulsion, febrile: Code(s): R56.00 - Simple febrile convulsions Status: Acute Plan # COVID-19 - positive on 03/20/2022 -Patient on room air, holding off on COVID-19 treatment plan -Tylenol for fever - Tessalon Perles for cough, continue supportive care - no respiratory symptoms # episode of convulsions and slurred speech - patient's symptoms appear to have resolved may be febrile convulsion -consulting neurology - reviewed home medications, possibly polypharmacy however only on 5 medications -brain MRI ordered # other chronic conditions - will verify medications before resuming home meds -Dementia: Memantine, vascular dementia? Continue aspirin -allergies: Loratadine -hypothyroidism: Levothyroxine - [id number]-gyeshadqu type 2 diabetes: glipizide, checking hemoglobin A1c. sliding scale insulin, hypoglycemia protocol Diet: regular DVT prophylaxis: heparin Code status: Full code Disposition: observation, likely home in 1-3 days Subjective Date/time seen: 03/21/22 13:10 No new complaints, no seizure activity. Exam Narrative: - GENERAL: pleasant older male in no acute distress - EYES: EOMI. Anicteric. - HENT: Moist mucous membranes. - LUNGS: Clear to auscultation bilaterally, no wheezing, rhonchi, or rales. - CARDIOVASCULAR: Regular rate and rhythm. No murmur. No JVD. - ABDOMEN: Soft, non-tender and non-distended. No palpable masses. - EXTREMITIES: No edema. Peripheral pulses 2+. Non-tender. - NEUROLOGIC: No focal neurological deficits. CN II-XII grossly intact. - PSYCHIATRIC: Awake, Alert and oriented x 2. Appropriate mood and affect. - SKIN: No rashes or lesions. Warm. - LYMPH: No cervical lymphadenopathy. Objective Data Vital Signs Vital Signs: Vital Signs - 24 hr 03/20/22 23:02 03/21/22 02:31 03/21/22 03:38 Temperature 100.4 F H 100.2 F H 100.2 F H Pulse Rate 115 H 91 Respiratory Rate 22 H 18 Blood Pressure 111/69 103/54 L Pulse Oximetry 99 97 Oxygen Delivery Room Air 03/21/22 04:33 03/21/22 02:36 03/21/22 04:00 Temperature 99.7 F H Pulse Rate 74 72 Respiratory Rate 18 Blood Pressure 118/78 Pulse Oximetry 98 Oxygen Delivery Room Air Intake/Output Intake/Output: Intake & Output 03/18/22 03/19/22 03/20/22 03/21/22 23:59 23:59 23:59 23:59 Intake Total 1200 Balance 1200 Meds/Results Medications: Active Medications Generic Name Dose Route Start Last Admin Trade Name Freq PRN Reason Stop Dose Admin Acetaminophen 650 mg 03/21/22 02:48 03/21/22 03:38 Acetaminophen 325 Mg Tablet PO 650 mg Q4H PRN Administration Mild Pain (1-3) or Fever Al Hydrox/Mg Hydrox/Simethicone 30 ml 03/21/22 02:48 Mag Hydrox/Al Hydrox/Simeth 30 Ml Udc PO QID PRN Dyspepsia Bisacodyl 5 mg 03/21/22 02:48 Bisacodyl 5 Mg Tablet Ec PO DAILY PRN Constipation Dextrose 12.5 gm 03/21/22 02:47 Dextrose 50% 25 Gm/50 Ml Syringe IV PUSH PRN PRN Hypoglycemia Protocol Glucagon 1 mg 03/21/22 02:47 Glucagon For Inj 1 Mg Vial IM PRN PRN Hypoglycemia Protocol Glucose 15 gm 03/21/22 02:47 Glucose Oral Gel 15 Gm Of Glucse In 37.5 Gm Tube PO PRN PRN Hypoglycemia Protocol Heparin Sodium (Porcine) 5,000 units 03/21/22 09:00 03/21/22 10:31 Heparin Sodium 5,000 Units/Ml Vial SUB-Q 5,000 units Q12HR DANIELLE Administration Acetaminophen 1,000 mg in 100 mls @ 400 mls/hr 03/21/22 00:54 Ofirmev 1,000 Mg Ivpb IVPB 03/22/22 00:53 Q6H PRN Mild Pain (1-3) or Fever Dextrose 1,000 mls @ 100 mls/hr 03/21/22 02:47 Dextrose 5% 1,000 Ml IVPB PRN PRN Hypoglycemia Protocol Insulin Aspart 2 - 5 units 03/21/22 08:00 03/21/22 09:44 Insulin Aspart (*Bkc) 100 Units/Ml SUB-Q Not Given TIDWM DANIELLE Protocol Jose
[2022-03-21 13:24] LABS: Glucose Point of Care 126 mg/dl (65-105)
--- NOTE | 2022-03-21 15:13 | WPDNEURCNPN ---
Assessment and Plan Assessment and plan Plan 1 positive a COVID 2 underlying multiple chronic conditions as mentioned 3 possibly focal convulsion for MRI request Consult date: 03/21/22 HPI: Mk Sanches is a 86 year old male has been admitted to [facility] through the emergency room for the complaints of generalized weakness with change in the mental status. In addition to the ongoing history of 1. Dementia 2. Hypothyroidism 3. Diabetes mellitus reportedly around 7:00 p.m. patient developed sudden onset of weakness patient's daughter assisted him from table and he was able to walk to another room with his walker when he sat down daughter noted that he had speech which was somewhat garbled and he was shaking she also recorded on video in which patient was not responding to questions and was abnormally moving his head back and forth the whole activity lasted for about 2 minutes he noted Lloyd have the urinary incontinence on his way to the hospital she also reported that at the onset of weakness patient reported his stomach was bothering him though he was oriented to person he gave no history of abdominal pain or any complaint at the time of initial visit to the ER and patient's daughter did not notice any seizures. Patient has been taking glipizide 5 mg twice a day with levothyroxine 75 micro g daily memantine 5 mg twice a day and aspirin 81 mg daily. Patient does have ongoing history of dementia he is a never alcohol intake or and never a smoker though he does chew tobacco. Initial examination in the emergency room was nonfocal. His vital signs were normal except the pulse rate was 115 which did come down to 74 and his temp was 99.7? on recheck otherwise the lab was normal except the glucose of 201 also lactic acid 2.7, he was negative for influenza a and B but positive for starts COVID CT scan of the head revealed nonspecific cerebral white matter disease EKG revealed tachycardia and no atrial fibrillation and his MRI of the brain revealed mild nonspecific white matter disease which chest x-ray revealing mild atelectasis versus scarring. Review of Systems Review of Systems: All systems reviewed & are unremarkable except as noted in HPI and below PMFSH Past Medical History Medical History Chronic kidney disease, stage 3 Baseline creatinine between 1.2 and 1.30. GFR is typically in the high 40s or lower 50s. Dementia Depression Hypothyroidism Type 2 diabetes mellitus Surgical History Surgical History History of bilateral cataract extraction History of foot surgery Debridement of diabetic foot ulcer. Hx laparoscopic cholecystectomy 07/10/21 Family History Family History Other Unknown family medical history Social History Social History Social History: Healthcare power of district attorney: Cassie Granados, daughter. Code status: Full code. Smoking status: Never smoker Smokeless tobacco user: chewing tobacco Additional smoking assessment comments: Quit chewing tobacco in December 2020. Alcohol intake: never Substance use: never Substance use type: does not use Additional living arrangements comments: Lives with his daughter Cassie in [place]. Additional occupation/education comments: [employer]. Gender identity (if verbalized by the patient): Male Sexual Orientation (if Verbalized by the Patient): Straight or Heterosexual Spiritual care concerns: Yes Meds Home Medications and Allergies Home Medications Medication Instructions Recorded Confirmed Type glipizide 5 mg tablet 5 mg PO BID 10/04/19 03/21/22 History levothyroxine 75 mcg tablet 75 mcg PO DAILY 10/04/19 03/21/22 History loratadine 10 mg tablet 10 mg PO DAILY 10/04/19 03/21/22 History memantine 5 mg tablet 5
[2022-03-21 17:32] LABS: Glucose Point of Care 116 mg/dl (65-105)
[2022-03-22] VITALS: PULSE 80
[2022-03-22 04:00] VITALS: PULSE 82
[2022-03-22 06:00] VITALS: BP 101/58; PULSE 66; RESP 20; TEMP 36.9; O2SAT 97
[2022-03-22 08:43] LABS: Glucose Point of Care 96 mg/dl (65-105)
[2022-03-22] MEDS: HEPARIN SODIUM 5,000 UNITS/ML VIAL 5000 UNITS SUB-Q ×2 (09:56→21:15)
[2022-03-22 10:00] VITALS: PULSE 66; RESP 20; O2SAT 97
--- NOTE | 2022-03-22 11:29 | PM.DS ---
DS: Admitting Diagnosis Discharge Date March 22, 2022 Admitting Diagnosis Possible seizure DS: Discharge Diagnosis Discharge Diagnosis (1) COVID-19: Code(s): U07.1 - COVID-19 Status: Acute (2) Convulsion, febrile: Code(s): R56.00 - Simple febrile convulsions Status: Acute Plan # COVID-19 - positive on 03/20/2022 -Patient on room air, holding off on COVID-19 treatment plan -Tylenol for fever - Tessalon Perles for cough, continue supportive care - no respiratory symptoms # episode of convulsions and slurred speech - patient's symptoms appear to have resolved may be febrile convulsion -consulting neurology - reviewed home medications, possibly polypharmacy however only on 5 medications -brain MRI ordered # other chronic conditions - will verify medications before resuming home meds -Dementia: Memantine, vascular dementia? Continue aspirin -allergies: Loratadine -hypothyroidism: Levothyroxine - [id number]-dkufoeyyw type 2 diabetes: glipizide, checking hemoglobin A1c. sliding scale insulin, hypoglycemia protocol Diet: regular DVT prophylaxis: heparin Code status: Full code Disposition: observation, likely home in 1-3 days DS: Summary Hospital Course Hospital Course: Patient is a 6-year-old gentleman COVID came in with fever and possible seizure-like activity. Seizure was felt to be likely related to COVID a and fever. Fevers have now resolved. After evaluation the patient was back to baseline had no seizure-like activity. Neurology was consulted. Workup was unrevealing. No further treatment needed at this time. Patient can follow-up with Neurology. Time Spent with Patient Time attestation: Total time spent providing and/or coordinating discharge services: Exam Narrative: - GENERAL: pleasant older male in no acute distress - EYES: EOMI. Anicteric. - HENT: Moist mucous membranes. - LUNGS: Clear to auscultation bilaterally, no wheezing, rhonchi, or rales. - CARDIOVASCULAR: Regular rate and rhythm. No murmur. No JVD. - ABDOMEN: Soft, non-tender and non-distended. No palpable masses. - EXTREMITIES: No edema. Peripheral pulses 2+. Non-tender. - NEUROLOGIC: No focal neurological deficits. CN II-XII grossly intact. - PSYCHIATRIC: Awake, Alert and oriented x 2. Appropriate mood and affect. - SKIN: No rashes or lesions. Warm. - LYMPH: No cervical lymphadenopathy. DS: Data Data Completed and Pending Labs on day of discharge: Labs from last 24 hours 03/22/22 03/21/22 03/21/22 08:40 17:20 13:18 POC Capillary Glucose 96 116 H 126 H Preliminary micro results at discharge 03/20/22 23:32 Blood Culture - Preliminary Blood 03/20/22 23:32 Blood Culture - Preliminary Blood Discharge Plan Discharge Attending physician on discharge: Dru Jacobs Consulting providers: Esteban Camp Discharging Clinician: Dru Jacobs Patient Disposition: Home, Self-Care Activity: no preference Diet: as tolerated Patient Instructions: Antibiotic Form, Safe Use of Anticoagulants (GEN) Stand Alone Forms: General Discharge Information Follow-up/Referrals: Esteban Camp MD [Physician] - PHYSICIAN,MINK RANCHER [Primary Care Provider] - Discharge Medications: Continued levothyroxine 75 mcg tablet 75 mcg PO DAILY glipizide 5 mg tablet 5 mg PO BID memantine 5 mg tablet 5 mg PO BID loratadine 10 mg tablet 10 mg PO DAILY aspirin [Adult Low Dose Aspirin] 81 mg Tablet,Delayed Release (Dr/Ec) 81 mg PO DAILY Date of admission: 03/21/22 00:54 Primary Care Provider: PHYSICIAN,MINK RANCHER Admitting Provider: Judith Florence Attending physician on admission: Judith Florence Condition: Stable
[2022-03-22 12:39] LABS: Glucose Point of Care 163 mg/dl (65-105)
[2022-03-22 17:40] LABS: Glucose Point of Care 153 mg/dl (65-105)
[2022-03-22 21:30] VITALS: BP 121/78; PULSE 79; RESP 18; TEMP 37; O2SAT 96
[2022-03-22 22:01] LABS: Glucose Point of Care 167 mg/dl (65-105)
[2022-03-23 06:22] VITALS: BP 118/81; PULSE 64; RESP 16; TEMP 36.6; O2SAT 96
[2022-03-23 08:41] LABS: Glucose Point of Care 136 mg/dl (65-105)
[2022-03-23 09:08] LABS: Basophils Percent Auto 0.6 % (0.2-1.2); Hematocrit 40.8 % (42.0-52.0); Hemoglobin 13.9 g/dL (14.0-18.0); Immature Granulocyte Absolute 0.01 K/mm3 (0.00-0.031); Immature Granulocyte Percent A 0.2 % (0-0.5); Lymphocytes Absolute Auto 1.18 K/mm3 (0.9-3.2); Lymphocytes Percent Auto 21.9 % (18.3-44.2); Mean Corpuscular HGB Conc 34.1 g/dl (32-36); Monocytes Absolute Auto 0.7 K/mm3 (0.1-0.6); Monocytes Percent Auto 13.3 % (2.6-8.5); Neutrophils Absolute Auto 3.5 K/mm3 (1.3-6.7); Platelet Count Result 152 k/mm3 (150-375); Red Blood Count 4.34 M/mm3 (4.6-6.20); Red Cell Distribution Width 13.8 % (11.5-14.5); White Blood Count 5.4 K/mm3 (4.5-10.0)
[2022-03-23 09:20] LABS: Anion Gap 7 mmol/L (8-16); Blood Urea Nitrogen 17 mg/dL (9-20); Carbon Dioxide 23 mmol/L (22-30); Chloride 104 mmol/L (98-107); Estimated CRCL calculation 41 ml/min; Estimated Glomerular Filt Rate 58; Glucose 128 mg/dL (65-110); Potassium 4.1 mmol/L (3.4-5.0); Sodium 134 mmol/L (137-145)
[2022-03-23] MEDS: HEPARIN SODIUM 5,000 UNITS/ML VIAL 5000 UNITS SUB-Q ×2 (10:47→21:09)
--- NOTE | 2022-03-23 12:38 | PM.IMPN ---
Progress Note: A&P Assessment and Plan (1) COVID-19: Code(s): U07.1 - COVID-19 Status: Acute (2) Convulsion, febrile: Code(s): R56.00 - Simple febrile convulsions Status: Acute Plan # COVID-19 - positive on 03/20/2022 -Patient on room air, holding off on COVID-19 treatment plan -Tylenol for fever - Tessalon Perles for cough, continue supportive care - no respiratory symptoms # episode of convulsions and slurred speech - patient's symptoms appear to have resolved may be febrile convulsion -consulting neurology - reviewed home medications, possibly polypharmacy however only on 5 medications -brain MRI ordered # other chronic conditions - will verify medications before resuming home meds -Dementia: Memantine, vascular dementia? Continue aspirin -allergies: Loratadine -hypothyroidism: Levothyroxine - [id number] type 2 diabetes: glipizide, checking hemoglobin A1c. sliding scale insulin, hypoglycemia protocol Diet: regular DVT prophylaxis: heparin Code status: Full code Disposition: observation, likely home in 1-3 days Subjective Date/time seen: 03/23/22 12:38 No new complaints Exam Narrative: - GENERAL: pleasant older male in no acute distress - EYES: EOMI. Anicteric. - HENT: Moist mucous membranes. - LUNGS: Clear to auscultation bilaterally, no wheezing, rhonchi, or rales. - CARDIOVASCULAR: Regular rate and rhythm. No murmur. No JVD. - ABDOMEN: Soft, non-tender and non-distended. No palpable masses. - EXTREMITIES: No edema. Peripheral pulses 2+. Non-tender. - NEUROLOGIC: No focal neurological deficits. CN II-XII grossly intact. - PSYCHIATRIC: Awake, Alert and oriented x 2. Appropriate mood and affect. - SKIN: No rashes or lesions. Warm. - LYMPH: No cervical lymphadenopathy. Objective Data Vital Signs Vital Signs: Vital Signs - 24 hr 03/22/22 21:30 03/22/22 20:00 03/23/22 06:22 Temperature 98.6 F 98 F Pulse Rate 79 64 Respiratory Rate 18 16 Blood Pressure 121/78 118/81 Pulse Oximetry 96 96 Oxygen Delivery Room Air Intake/Output Intake/Output: Intake & Output 03/20/22 03/21/22 03/22/22 03/23/22 23:59 23:59 23:59 23:59 Intake Total 1680 1020 300 Balance 1680 1020 300 Meds/Results Medications: Active Medications Generic Name Dose Route Start Last Admin Trade Name Freq PRN Reason Stop Dose Admin Acetaminophen 650 mg 03/21/22 02:48 03/21/22 03:38 Acetaminophen 325 Mg Tablet PO 650 mg Q4H PRN Administration Mild Pain (1-3) or Fever Al Hydrox/Mg Hydrox/Simethicone 30 ml 03/21/22 02:48 Mag Hydrox/Al Hydrox/Simeth 30 Ml Udc PO QID PRN Dyspepsia Bisacodyl 5 mg 03/21/22 02:48 Bisacodyl 5 Mg Tablet Ec PO DAILY PRN Constipation Dextrose 12.5 gm 03/21/22 02:47 Dextrose 50% 25 Gm/50 Ml Syringe IV PUSH PRN PRN Hypoglycemia Protocol Glucagon 1 mg 03/21/22 02:47 Glucagon For Inj 1 Mg Vial IM PRN PRN Hypoglycemia Protocol Glucose 15 gm 03/21/22 02:47 Glucose Oral Gel 15 Gm Of Glucse In 37.5 Gm Tube PO PRN PRN Hypoglycemia Protocol Heparin Sodium (Porcine) 5,000 units 03/21/22 09:00 03/23/22 10:47 Heparin Sodium 5,000 Units/Ml Vial SUB-Q 5,000 units Q12HR DANIELLE Administration Dextrose 1,000 mls @ 100 mls/hr 03/21/22 02:47 Dextrose 5% 1,000 Ml IVPB PRN PRN Hypoglycemia Protocol Insulin Aspart 2 - 5 units 03/21/22 08:00 03/23/22 10:30 Insulin Aspart (*Bkc) 100 Units/Ml SUB-Q Not Given TIDWM DANIELLE Protocol Magnesium Hydroxide 30 ml 03/21/22 02:48 Magnesium Hydroxide Susp 30 Ml Udc PO DAILY PRN Constipation Radiology Results: ITS Impressions Head CT 03/20/22 23:03 IMPRESSION: 1. Stable mild nonspecific cerebral white matter disease, which likely represents chronic small vessel ischemic disease. I discussed this case with Dr. Dyer. 2. Motion artifact obscu
[2022-03-23 12:59] LABS: Glucose Point of Care 175 mg/dl (65-105)
--- NOTE | 2022-03-23 13:35 | WPDNEURCNPN ---
Assessment and Plan Assessment and plan (1) Convulsion, febrile: Code(s): R56.00 - Simple febrile convulsions Status: Acute Plan One generalized weakness with underlying COVID infection and 2. Seizure plan is to obtain the EEG if any underlying abnormality then we can continue the anticonvulsants brain MRI has been done which reveals only nonspecific white matter disease no evidence of territorial stroke or space-occupying lesion. Consult date: 03/23/22 HPI: Mk Sanches is a 86 year old male [facility] Past Medical History Medical History Chronic kidney disease, stage 3 Baseline creatinine between 1.2 and 1.30. GFR is typically in the high 40s or lower 50s. Dementia Depression Hypothyroidism Type 2 diabetes mellitus Surgical History Surgical History History of bilateral cataract extraction History of foot surgery Debridement of diabetic foot ulcer. Hx laparoscopic cholecystectomy 07/10/21 Family History Family History Other Unknown family medical history Social History Social History Social History: Healthcare power of executive housekeeper: Cassie Granados, daughter. Code status: Full code. Smoking status: Never smoker Smokeless tobacco user: chewing tobacco Additional smoking assessment comments: Quit chewing tobacco in December 2020. Alcohol intake: never Substance use: never Substance use type: does not use Additional living arrangements comments: Lives with his daughter Cassie in [place]. 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 Gender identity (if verbalized by the patient): Male Sexual Orientation (if Verbalized by the Patient): Straight or Heterosexual Spiritual care concerns: Yes Meds Home Medications and Allergies Home Medications Medication Instructions Recorded Confirmed Type glipizide 5 mg tablet 5 mg PO BID 10/04/19 03/21/22 History levothyroxine 75 mcg tablet 75 mcg PO DAILY 10/04/19 03/21/22 History loratadine 10 mg tablet 10 mg PO DAILY 10/04/19 03/21/22 History memantine 5 mg tablet 5 mg PO BID 10/04/19 03/21/22 History aspirin 81 mg tablet,delayed 81 mg PO DAILY 11/01/19 03/21/22 History release (Adult Low Dose Aspirin) Allergies Allergy/AdvReac Type Severity Reaction Status Date / Time ibuprofen Allergy Rash Verified 03/20/22 23:20 Sulfa (Sulfonamide Allergy Rash Verified 03/20/22 23:20 Antibiotics) Vital Signs Vital Signs - 24 hr 03/22/22 21:30 03/22/22 20:00 03/23/22 06:22 Temperature 37.0 C 36.6 C Pulse Rate 79 64 Respiratory Rate 18 16 Blood Pressure 121/78 118/81 Pulse Oximetry 96 96 Oxygen Delivery Room Air Exam Narrative: revealed him to be awake alert was able to relate to the physician carry on the conversation on no dysphonia or dysarthria neck was supple with no meningeal signs heart regular with no murmur lungs clear to auscultation abdomen is soft neuro examination revealed him to be awake alert oriented x3 the cranial examination was normal motor examination revealed no focal motor drift reflexes were symmetrical plantars were downgoing. Results Labs 03/23/22 09:03 03/23/22 09:03 Labs: Short CBC 03/23/22 Range/Units 09:03 WBC 5.4 (4.5-10.0) K/mm3 Hgb 13.9 L (14.0-18.0) g/dL Hct 40.8 L (42.0-52.0) % Plt Count 152 (150-375) k/mm3 BMP 03/23/22 09:03 Sodium 134 L Potassium 4.1 Chloride 104 Carbon Dioxide 23 BUN 17 Creatinine 1.20 Glucose 128 H Calcium 8.0 L AMG Consult Billing Inpatient Consult Inpatient Consults: [id number] Consult Moderate
[2022-03-23 14:00] VITALS: BP 117/74; PULSE 81; RESP 24; TEMP 37.5; O2SAT 95
[2022-03-23 17:27] LABS: Glucose Point of Care 172 mg/dl (65-105)
[2022-03-23 20:20] LABS: Glucose Point of Care 182 mg/dl (65-105)
[2022-03-23 21:42] VITALS: BP 132/71; PULSE 88; RESP 18; TEMP 36.6; O2SAT 97
[2022-03-24 05:28] VITALS: BP 126/71; PULSE 86; RESP 16; TEMP 36.6; O2SAT 98
[2022-03-24 09:00] LABS: Glucose Point of Care 195 mg/dl (65-105)
[2022-03-24] MEDS: HEPARIN SODIUM 5,000 UNITS/ML VIAL 5000 UNITS SUB-Q ×2 (09:16→21:09)
--- NOTE | 2022-03-24 12:12 | PM.DS ---
DS: Admitting Diagnosis Discharge Date March 24, 2022 Admitting Diagnosis COVID Weakness DS: Discharge Diagnosis Discharge Diagnosis (1) COVID-19: Code(s): U07.1 - COVID-19 Status: Acute (2) Convulsion, febrile: Code(s): R56.00 - Simple febrile convulsions Status: Acute Plan # COVID-19 - positive on 03/20/2022 -Patient on room air, holding off on COVID-19 treatment plan -Tylenol for fever - Tessalon Perles for cough, continue supportive care - no respiratory symptoms # episode of convulsions and slurred speech - patient's symptoms appear to have resolved may be febrile convulsion -consulting neurology - reviewed home medications, possibly polypharmacy however only on 5 medications -brain MRI ordered # other chronic conditions - will verify medications before resuming home meds -Dementia: Memantine, vascular dementia? Continue aspirin -allergies: Loratadine -hypothyroidism: Levothyroxine - [id number]-hoiwekvry type 2 diabetes: glipizide, checking hemoglobin A1c. sliding scale insulin, hypoglycemia protocol Diet: regular DVT prophylaxis: heparin Code status: Full code Disposition: observation, likely home in 1-3 days DS: Summary Hospital Course Hospital Course: Patient is an 86-year-old gentleman came in with COVID. He is also having fever above 102. There was some question whether had some sort of convulsion. If so this was felt to be related to fever. His fever has been relatively controlled highest 99.5 over the last 24hours. Otherwise he is exceptionally weak and he is going to be discharged to senior living facility. Time Spent with Patient Time attestation: Total time spent providing and/or coordinating discharge services: Exam Narrative: - GENERAL: pleasant older male in no acute distress - EYES: EOMI. Anicteric. - HENT: Moist mucous membranes. - LUNGS: Clear to auscultation bilaterally, no wheezing, rhonchi, or rales. - CARDIOVASCULAR: Regular rate and rhythm. No murmur. No JVD. - ABDOMEN: Soft, non-tender and non-distended. No palpable masses. - EXTREMITIES: No edema. Peripheral pulses 2+. Non-tender. - NEUROLOGIC: No focal neurological deficits. CN II-XII grossly intact. - PSYCHIATRIC: Awake, Alert and oriented x 2. Appropriate mood and affect. - SKIN: No rashes or lesions. Warm. - LYMPH: No cervical lymphadenopathy. DS: Data Data Completed and Pending Labs on day of discharge: Labs from last 24 hours 03/24/22 03/23/22 03/23/22 08:55 20:11 17:21 POC Capillary Glucose 195 H 182 H 172 H 03/23/22 12:54 POC Capillary Glucose 175 H Preliminary micro results at discharge 03/20/22 23:32 Blood Culture - Preliminary Blood 03/20/22 23:32 Blood Culture - Preliminary Blood Discharge Plan Discharge Attending physician on discharge: Dru Jacobs Consulting providers: Esteban Camp Discharging Clinician: Dru Jacobs Patient Disposition: Home Health Service Activity: no preference Diet: as tolerated Patient Instructions: Antibiotic Form, Safe Use of Anticoagulants (GEN) Stand Alone Forms: General Discharge Information Follow-up/Referrals: Esteban Camp MD [Physician] - PHYSICIAN,ASSISTANT PROFESSOR OF MATHEMATICS [Primary Care Provider] - Discharge Medications: Continued levothyroxine 75 mcg tablet 75 mcg PO DAILY glipizide 5 mg tablet 5 mg PO BID memantine 5 mg tablet 5 mg PO BID loratadine 10 mg tablet 10 mg PO DAILY aspirin [Adult Low Dose Aspirin] 81 mg Tablet,Delayed Release (Dr/Ec) 81 mg PO DAILY Date of admission: 03/21/22 00:54 Primary Care Provider: PHYSICIAN,ASSISTANT PROFESSOR OF MATHEMATICS Admitting Provider: Judith Florence Attending physician on admission: Judith Florence Condition: Stable
[2022-03-24 13:00] LABS: Glucose Point of Care 266 mg/dl (65-105)
[2022-03-24] MEDS: INSULIN ASPART (*BKC) 100 UNITS/ML SUB-Q (13:14)
[2022-03-24 14:00] VITALS: BP 119/60; PULSE 88; RESP 24; TEMP 36.4; O2SAT 98
[2022-03-24 17:33] LABS: Glucose Point of Care 175 mg/dl (65-105)
[2022-03-24 20:04] LABS: Glucose Point of Care 294 mg/dl (65-105)
[2022-03-24 21:29] VITALS: BP 118/50; PULSE 76; RESP 16; TEMP 36.6; O2SAT 97
[2022-03-25 06:00] VITALS: BP 118/60; PULSE 72; RESP 16; TEMP 36.6; O2SAT 97
[2022-03-25] MEDS: HEPARIN SODIUM 5,000 UNITS/ML VIAL 5000 UNITS SUB-Q (09:07)
[2022-03-25 09:20] LABS: Glucose Point of Care 171 mg/dl (65-105)
[2022-03-25 12:32] LABS: Glucose Point of Care 173 mg/dl (65-105)
--- NOTE | 2022-03-25 13:25 | P.DS_ITS ---
DS: Admitting Diagnosis Discharge Date today Admitting Diagnosis (1) COVID-19: ?Code(s): U07.1 - COVID-19 ?Status:?Acute (2) Convulsion, febrile: DS: Discharge Diagnosis Discharge Diagnosis (1) COVID-19: Code(s): U07.1 - COVID-19 Status: Acute (2) Convulsion, febrile: Code(s): R56.00 - Simple febrile convulsions Status: Acute Plan # COVID-19 - positive on 03/20/2022 -Patient on room air, holding off on COVID-19 treatment plan -Tylenol for fever - Tessalon Perles for cough, continue supportive care - no respiratory symptoms # episode of convulsions and slurred speech - patient's symptoms appear to have resolved may be febrile convulsion -consulting neurology - reviewed home medications, possibly polypharmacy however only on 5 medications ?-brain MRI ordered # other chronic conditions -? will verify medications before resuming home meds -Dementia:? Memantine,? vascular dementia?? Continue aspirin -allergies: Loratadine -hypothyroidism: Levothyroxine - alg-plkbhgl-smzowwvna type 2 diabetes:? glipizide, checking hemoglobin A1c.? sliding scale insulin, hypoglycemia protocol DS: Summary Hospital Course Reason for hospitalization: . Hospital Course: Patient is an 86-year-old gentleman came in with COVID.? He is also having fever above 102.? There was some question whether had some sort of convulsion.? If so this was felt to be related to fever.? His fever has been relatively controlled highest 99.5 over the last 24hours.? Otherwise he is exceptionally weak and he is going to be discharged to long-term facility Time Spent with Patient Time attestation: Total time spent providing and/or coordinating discharge services: DS: Data Data Completed and Pending Labs on day of discharge: Labs from last 24 hours 03/25/22 03/25/22 03/24/22 12:25 09:08 19:56 POC Capillary Glucose 173 H 171 H 294 H 03/24/22 17:27 POC Capillary Glucose 175 H Preliminary micro results at discharge 03/20/22 23:32 Blood Culture - Preliminary Blood 03/20/22 23:32 Blood Culture - Preliminary Blood Discharge Plan Discharge Attending physician on discharge: Wray,Dru T. Consulting providers: Esteban Camp Discharging Clinician: Dru Jacobs Patient Disposition: Home Health Service Activity: no preference Diet: as tolerated Patient Instructions: Antibiotic Form, Safe Use of Anticoagulants (GEN) Stand Alone Forms: General Discharge Information Follow-up/Referrals: Esteban Camp MD [Physician] - PHYSICIAN,CARTON FORMING MACHINE TENDER [Primary Care Provider] - Discharge Medications: Continued levothyroxine 75 mcg tablet 75 mcg PO DAILY glipizide 5 mg tablet 5 mg PO BID memantine 5 mg tablet 5 mg PO BID loratadine 10 mg tablet 10 mg PO DAILY aspirin [Adult Low Dose Aspirin] 81 mg Tablet,Delayed Release (Dr/Ec) 81 mg PO DAILY Date of admission: 03/21/22 00:54 Primary Care Provider: PHYSICIAN,CARTON FORMING MACHINE TENDER Admitting Provider: Judith Florence Attending physician on admission: Judith Florence Condition: Stable
[2022-03-25 13:55] VITALS: BP 118/83; PULSE 80; RESP 18; TEMP 36.7; O2SAT 92
== END 2022-03-25 15:11 | disposition home health service (06) ==
LOC: ANHED 23:39 → ANH3MED 03-21 03:22
PROVIDERS: Chiropractor; Admitting Provider Student in an Organized Health Care Education/Training Program; Emergency Provider General Practice; Visit Provider Hospitalist
DX: U07.1 COVID-19 (principal); R56.00 Simple febrile convulsions; R41.82 Altered mental status, unspecified; R47.89 Other speech disturbances; J30.2 Other seasonal allergic rhinitis; I45.10 Unspecified right bundle-branch block; F03.90 Unspecified dementia, unspecified severity, without behavioral disturbance, psychotic disturbance, mood disturbance, and anxiety; E03.9 Hypothyroidism, unspecified; E11.22 Type 2 diabetes mellitus with diabetic chronic kidney disease; N18.30 Chronic kidney disease, stage 3 unspecified; F32.A Depression, unspecified; R90.82 White matter disease, unspecified; F17.220 Nicotine dependence, chewing tobacco, uncomplicated; Z79.82 Long term (current) use of aspirin; Z79.84 Long term (current) use of oral hypoglycemic drugs; Z79.899 Other long term (current) drug therapy
CPT/HCPCS: 36415; 70450; 70553; 71045; 80048; 80053; 81003; 82948; 83036; 83605; 83690; 83735; 84484; 85025; 85610; 85730; 87040; 87636; 93005; 96361; 96365; 96372; 97161; 97165; 97530; 97535; 99285; A9270; A9577; G0378; J0131; J1644; J1815; J7030

== ENCOUNTER 2022-05-21 14:45 | Outpatient (CLI) | payer MEDICARE, SELFPAY ==
--- NOTE | 2022-05-21 | ECHO_ITS ---
Patient Info Name: Mk Sanches Age: 86 years : 1935 Gender: Male Ht: 69 in Wt: 160 lbs BSA: 1.88 m2 HR: 72 bpm BP: 121 / 71 mmHg Technical Quality: Good Exam Date: 05/21/2022 3:11 PM Exam Location: [facility] Patient Status: Outpatient Admit Date: 05/21/2022 Staff Ordering Physician: Umu Rivera MD Bomb Squad Commander: Daisy Loomis RDCS Attending Provider: Umu Rivera MD Referring Physician: Nicole VASQUEZ; Exam Type: CA echo doppler color flow Study Info Indications - chronic kidney disease Complete two-dimensional, color flow and Doppler transthoracic echocardiogram is performed. Summary 1. Complete two-dimensional, color flow and Doppler transthoracic echocardiogram is performed. 2. Left ventricular chamber dimension is normal. 3. Left ventricular systolic function is normal, estimated at 60-65%. 4. There is mild concentric increased left ventricular wall thickness. 5. The left ventricular diastolic function is grade I diastolic dysfunction. 6. E/e' 9 is minimally elevated. 7. No pulmonary hypertension, estimated pulmonary arterial systolic pressure is 20 mmHg. 8. There is trace pulmonic regurgitation. Left Ventricle E/e' 9 is minimally elevated. Left ventricular chamber dimension is normal. Left ventricular systolic function is normal, estimated at 60-65%. There is mild concentric increased left ventricular wall thickness. The left ventricular diastolic function is grade I diastolic dysfunction. Right Ventricle Right ventricular systolic function is normal and with normal TAPSE 1.8 cm. Right ventricular chamber dimension is normal. Left Atria Left atrial chamber dimension is normal. Right Atria Right atrial chamber dimension is normal. Aortic Valve The aortic valve is trileaflet. There is no aortic valve stenosis. There is no aortic valve regurgitation. Pulmonic Valve There is trace pulmonic regurgitation. Mitral Valve There is no mitral valve stenosis. There is no mitral valve regurgitation. Tricuspid Valve There is no tricuspid valve regurgitation. No pulmonary hypertension, estimated pulmonary arterial systolic pressure is 20 mmHg. Pericardium/Pleural There is no pericardial effusion. Inferior Vena Cava Normal inferior vena cava with >50% collapse upon inspiration consistent with normal right atrial pressure, 5 mmHg. Aorta The aortic root size at the sinus of Valsalva is normal. Left Ventricular Outflow Tract Name Value Normal LVOT 2D LVOT Diameter 2.1 cm LVOT Doppler LVOT Peak Gradient 3 mmHg LVOT Mean Gradient 2 mmHg LVOT VTI 18 cm LVOT VTI/AV VTI Ratio 1.1 LVOT Stroke Volume 61 ml LVOT CO 12.1 l/min LVOT CI 6.4 l/min/m2 Pulmonic Valve Name Value Normal
== END 2022-05-21 14:46 | disposition home or self-care (01) ==
PROVIDERS: PCP Hospitalist
DX: I12.9 Hypertensive chronic kidney disease with stage 1 through stage 4 chronic kidney disease, or unspecified chronic kidney disease (principal); N18.31 Chronic kidney disease, stage 3a
CPT/HCPCS: 93306

== ENCOUNTER 2022-05-28 14:45 | Outpatient (CLI) | payer MEDICARE, SELFPAY ==
--- NOTE | ~2022-05-28 | US_ITS ---
EXAMINATION: US renal BI DATE: 05/28/2022 16:00 INDICATION: Stage IIIa chronic kidney disease TECHNIQUE: Multiple ultrasound grayscale images of the kidneys were obtained. COMPARISON: None. FINDINGS: The right kidney measures 8.6 x 4.7 x 3.7 cm. The left kidney measures 9.9 x 4.4 x 3.9 cm. There is r elatively homogeneous mild bilateral renal cortical thinning with increased cortical collection is se en consistent with medical renal disease. There is no hydronephrosis in either kidney. No stones bryce ntified. The bladder is normal bilateral ureteral jets visualized on color Doppler. The cochlea prevo id bladder volume of 220 mm with increased postvoid bladder volume of 72 mm.. IMPRESSION: 1. Diffuse mild bilateral renal cortical atrophy with increased echogenicity consistent with chronic medical renal disease. No hydronephrosis. 2. Normal appearing bladder with increased postvoid residual bladder volume of 72 mL. Reviewed, dictated and finalized at location A. 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 Diffuse mild bilateral renal cortical atrophy with increased echogenicity c onsistent with chronic medical renal disease. No hydronephrosis. 2. Normal appearing bladder with increased postvoid residual bladder volume of 72 mL.
== END 2022-05-28 14:46 | disposition home or self-care (01) ==
PROVIDERS: PCP Hospitalist
DX: N18.31 Chronic kidney disease, stage 3a (principal)
CPT/HCPCS: 76775

== ENCOUNTER 2022-05-29 11:45 | Outpatient (CLI) | payer MEDICARE, SELFPAY ==
[2022-05-29 13:04] LABS: Appearance Urine Clear (Clear); Bilirubin Urine Negative (Negative); Blood Urine Negative (Negative); Color Urine Yellow (Yellow); Glucose Urine UA Negative (Negative); Ketones Urine Negative (Negative); Leukocyte Esterase Ur Negative LEU/UL (NEGATIVE); Nitrate Urine Negative (Negative); Protein Urine Negative (Negative); Specific Grav Ur 1.015 (1.001-1.035)
[2022-05-29 13:09] LABS: Add Urine Microscopic? NO
[2022-05-29 13:18] LABS: Vitamin D 25 Hydroxy 31.2 ng/mL
[2022-05-29 15:56] LABS: Potassium 4.9 mmol/L (3.4-5.0)
[2022-05-29 16:07] LABS: LDL Cholesterol Direct 82 mg/dL
[2022-05-29 16:22] LABS: Albumin Level 4.3 g/dL (3.5-5.1); Anion Gap 5 mmol/L (8-16); Blood Urea Nitrogen 24 mg/dL (9-20); Carbon Dioxide 29 mmol/L (22-30); Chloride 102 mmol/L (98-107); Cholesterol 153 mg/dL (0-200); Estimated Glomerular Filt Rate 48; Glucose 134 mg/dL (65-110); HDL Direct 43 mg/dL; Phosphorus 4.1 mg/dL (2.5-4.5); Sodium 136 mmol/L (137-145); Triglycerides 86 mg/dL (<150)
[2022-05-29 17:04] LABS: Folic Acid 10.5 ng/mL (2.76->20)
[2022-05-29 17:28] LABS: Iron 66 ug/dL (49-181)
[2022-05-29 17:57] LABS: Percent Iron Saturation 17 % (20-50)
[2022-06-02 14:52] LABS: Albumin 3.9 g/dL (3.8-4.8); Alpha 1 Globulin 0.3 g/dL (0.2-0.3); Alpha 2 Globulin 0.8 g/dL (0.5-0.9); Beta 1 Globulin 0.5 g/dL (0.4-0.6); Gamma Globulin 1.4 g/dL (0.8-1.7); Protein, Total 7.4 g/dL (6.1-8.1)
[2022-06-03 20:17] LABS: ANCA Screen Negative (Negative)
== END 2022-05-29 11:46 | disposition home or self-care (01) ==
PROVIDERS: PCP Hospitalist
DX: N18.31 Chronic kidney disease, stage 3a (principal)
CPT/HCPCS: 36415; 80061; 80069; 81003; 82306; 82607; 82746; 83540; 83550; 84155; 84165; 86036; 86038; 86334

== ENCOUNTER 2022-06-12 14:30 | Outpatient (CLI) | payer MEDICARE, SELFPAY ==
[2022-06-12 15:36] LABS: Complement C3 104 mg/dL (88-165)
[2022-06-15 21:19] LABS: Complement Total CH50 >60 U/mL (31-60)
== END 2022-06-12 14:31 | disposition home or self-care (01) ==
PROVIDERS: PCP Hospitalist
DX: N18.31 Chronic kidney disease, stage 3a (principal)
CPT/HCPCS: 36415; 86160; 86162

== ENCOUNTER 2022-06-15 11:25 | Outpatient (NON) | payer MEDICARE, SELFPAY ==
[2022-06-19 15:53] LABS: Creatinine, Random Urine 43 mg/dL (20-320); Total Protein/Creatinine Ratio 116 mg/g creat (25-148)
[2022-06-20 14:53] LABS: Creat 24 Hr 0.86 g/24 h (0.50-2.15); Measured Kappa Chains <1.00 mg/dL (<2.00); Measured Lambda Chains <1.00 mg/dL (<2.00); Pro/Creat Ratio 116 mg/g creat (<100); Protein,total, 24 Hr Ur 100 mg/24 h (<100)
== END 2022-06-15 11:26 | disposition home or self-care (01) ==
LOC: ANHLAB 11:28
PROVIDERS: PCP Hospitalist
DX: N18.31 Chronic kidney disease, stage 3a (principal)
CPT/HCPCS: 82570; 84156; 84166; 86335

== ENCOUNTER 2022-07-27 15:36 | Emergency (ER) | payer MEDICARE, SELFPAY ==
[2022-07-27] VITALS (9 sets, daily range): BP systolic 106–138; BP diastolic 62–94; PULSE 85–101; RESP 18–22; TEMP 37.2; O2SAT 93–100
--- NOTE | ~2022-07-27 | XR_ITS ---
EXAMINATION: XR chest 2V Exam Date/Time: 07/27/2022 19:50 CDT HISTORY: weakness AND LETHARGIC X 1 DAY Comparison: 03/20/2022. RESULT: Lines, tubes, and devices: Cholecystectomy clips. Right humeral head soft tissue anchor. Lungs and pleura: Senescent change. Streaky bibasilar opacities likely representing scar/atelectasis . Cardiomediastinal silhouette: Stable. Other: No acute osseous or upper abdominal finding. IMPRESSION: No acute cardiopulmonary process. Reviewed, dictated and finalized at location K.
--- NOTE | ~2022-07-27 | CT_ITS ---
EXAMINATION: CT brain wo con DATE: 07/27/2022 20:30 INDICATION: change in mental status . TECHNIQUE: Computed tomography (CT) of the head was performed without intravenous contrast. The mA wa s adjusted according to patient size. Iterative reconstruction technique was employed. The dose-lengt h product was 2043.00 mGy-cm. COMPARISON: 03/20/2022. FINDINGS: No acute intracranial hemorrhage or extra-axial fluid collection. No hydrocephalus, mass, or herniation. No acute ischemic infarct. Unremarkable dural venous sinus attenuation. No acute osseous abnormality. Right sphenoid retention cyst or polyp, the remaining aerated spaces are clear. Moderate atrophy and chronic white matter change. Atherosclerotic intracranial calcification. Bilater al lens replacements. IMPRESSION: No acute intracranial process. Reviewed, dictated and finalized at location K.
[2022-07-27 19:11] LABS: Appearance Urine Clear (Clear); Bilirubin Urine Negative (Negative); Blood Urine Negative (Negative); Color Urine Yellow (Yellow); Glucose Urine UA Negative (Negative); Ketones Urine Negative (Negative); Leukocyte Esterase Ur Negative LEU/UL (Negative); Nitrate Urine Negative (Negative); Protein Urine Negative (Negative); pH Urine 5.5 (5.0-9.0)
[2022-07-27 19:29] LABS: Add Urine Microscopic? NO
--- NOTE | 2022-07-27 19:45 | ECG_ITS ---
Measurements Intervals [place] Rate: 87 P: 28 NC: 184 QRS: 68 QRSD: 145 T: 19 QT: 378 QTc: 457 Interpretive Statements SINUS RHYTHM RIGHT BUNDLE BRANCH BLOCK BASELINE ARTIFACT- I, III, AVR, AVL, AVF ABNORMAL ECG COMPARED TO ECG 03/20/2022 23:20:19 SINUS RHYTHM NOW PRESENT Electronically Signed On 07-28-2022 17:31:12 CDT by Vinicius Buck D.O.
[2022-07-27 20:18] LABS: Basophils Absolute Auto 0.1 K/mm3 (0.0-0.1); Basophils Percent Auto 0.8 % (0.2-1.2); Eosinophils Absolute Auto 0.1 K/mm3 (0-0.3); Eosinophils Percent Auto 1.4 % (0-4.4); Hematocrit 45.6 % (42.0-52.0); Immature Granulocyte Absolute 0.03 K/mm3 (0.00-0.031); Immature Granulocyte Percent A 0.3 % (0-0.5); Lymphocytes Absolute Auto 2.04 K/mm3 (0.9-3.2); Lymphocytes Percent Auto 20.1 % (18.3-44.2); Mean Corpuscular HGB Conc 32.9 g/dl (32-36); Mean Corpuscular Hemoglobin 32.1 pg (26-34); Mean Corpuscular Volume 97.6 fl (80-100); Mean Platelet Volume 10.6 fl (7.4-10.4); Monocytes Absolute Auto 1.1 K/mm3 (0.1-0.6); Monocytes Percent Auto 11.2 % (2.6-8.5); Neutrophils Absolute Auto 6.7 K/mm3 (1.3-6.7); Neutrophils Percent Auto 66.2 % (45.5-73.1); Platelet Count Result 257 k/mm3 (150-375); Red Blood Count 4.67 M/mm3 (4.6-6.20); Red Cell Distribution Width 14.4 % (11.5-14.5); White Blood Count 10.2 K/mm3 (4.5-10.0)
--- NOTE | 2022-07-27 20:33 | ED.GENADULT ---
HPI - General Adult General Chief complaint: Unspecified Stated complaint: Strong smelling urine Time Seen by Provider: 07/27/22 20:18 History of Present Illness HPI narrative: Patient 87-year-old gentleman who presents the emergency department with chief complaint of increased weakness and dark urine. Per the patient's family over the last 24 hours the patient has been sleeping more and has been less active the patient will get up has been eating and has been moving around but they have noticed that when he uses his walker he is a little bit more unsteady and having to space himself out more. Patient is denied fever denied changes in his fingerstick blood sugars at home report no trauma reported no fever reported no vomiting diarrhea or complaints of chest pain or abdominal pain. The family was concerned the patient may have a urinary tract infection Related Data Home Medications Medication Instructions Recorded Confirmed glipizide 5 mg tablet 5 mg PO BID 10/04/19 03/21/22 levothyroxine 75 mcg tablet 75 mcg PO DAILY 10/04/19 03/21/22 loratadine 10 mg tablet 10 mg PO DAILY 10/04/19 03/21/22 memantine 5 mg tablet 5 mg PO BID 10/04/19 03/21/22 aspirin 81 mg tablet,delayed 81 mg PO DAILY 11/01/19 03/21/22 release (Adult Low Dose Aspirin) Allergies Allergy/AdvReac Type Severity Reaction Status Date / Time ibuprofen Allergy Rash Verified 03/20/22 23:20 Sulfa (Sulfonamide Allergy Rash Verified 03/20/22 23:20 Antibiotics) Review of Systems Review of Systems: A 10 system review of systems was completed on the patient and is negative except for what is stated in the HPI. Nursing and ancillary documentation was reviewed. [facility] Past Medical History Medical History Chronic kidney disease, stage 3 Baseline creatinine between 1.2 and 1.30. GFR is typically in the high 40s or lower 50s. Dementia Depression Hypothyroidism Type 2 diabetes mellitus Surgical History Surgical History History of bilateral cataract extraction History of foot surgery Debridement of diabetic foot ulcer. Hx laparoscopic cholecystectomy 07/10/21 Family History Family History Other Unknown family medical history Social History Social History Social History: Healthcare power of securities attorney: Cassie Granados, daughter. Code status: Full code. Smoking status: Never smoker Smokeless tobacco user: chewing tobacco Additional smoking assessment comments: Quit chewing tobacco in December 2020. Alcohol intake: never Substance use: never Substance use type: does not use Living arrangements: with family Additional living arrangements comments: Lives with his daughter Cassie in [place]. 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 Gender identity (if verbalized by the patient): Male Sexual Orientation (if Verbalized by the Patient): Straight or Heterosexual Spiritual care concerns: Yes Exam Narrative: GENERAL: Well-appearing, well-nourished, and in no acute distress. HEAD: Normocephalic, atraumatic. EYES: PERRLA and EOMI. ENT: Nares clear, no rhinorrhea or epistaxis. Mucous membranes moist. NECK: Supple. CHEST: Clear to auscultation. No respiratory distress. HEART: Regular rate and rhythm. No murmur heard. Normal peripheral pulses. ABDOMEN: Soft, nontender, nondistended, normal active bowel sounds. EXTREMITIES: Normal range of motion. No edema. SKIN: Warm, dry, no rash. NEURO: No focal deficits. Alert and oriented to baseline. PSYCH: Normal mood and affect. Course Vital Signs Vital signs: Vital Signs Temperature 37.2 C 07/27/22 15:55 Pulse Rate 96 07/27/22 15:55 Respiratory Rate 18 07/27/22 15:55 Bloo
[2022-07-27 20:39] LABS: Alanine Aminotransferase 18 U/L (6-50); Albumin Level 4.3 g/dL (3.5-5.1); Alkaline Phosphatase 90 U/L (38-126); Anion Gap 11 mmol/L (8-16); Aspartate Amino Transferase 23 U/L (17-59); Bilirubin,Total 0.8 mg/dL (0.2-1.3); Blood Urea Nitrogen 23 mg/dL (9-20); Calcium 8.9 mg/dL (8.4-10.2); Carbon Dioxide 22 mmol/L (22-30); Chloride 102 mmol/L (98-107); Estimated Glomerular Filt Rate 58; Glucose 131 mg/dL (65-110); Magnesium 2.2 mg/dL (1.6-2.3); Potassium 4.1 mmol/L (3.4-5.0); Sodium 135 mmol/L (137-145)
[2022-07-27 20:51] LABS: Troponin I < 0.012 ng/mL (0.000-0.034)
[2022-07-27 21:25] LABS: Procalcitonin 0.1 ng/mL
== END 2022-07-27 22:10 | disposition home or self-care (01) ==
PROVIDERS: Physician Assistant; Emergency Provider Emergency Medicine; PCP Hospitalist
DX: M62.81 Muscle weakness (generalized) (principal); N18.30 Chronic kidney disease, stage 3 unspecified; F03.90 Unspecified dementia, unspecified severity, without behavioral disturbance, psychotic disturbance, mood disturbance, and anxiety; F32.A Depression, unspecified; E03.9 Hypothyroidism, unspecified; E11.9 Type 2 diabetes mellitus without complications
CPT/HCPCS: 36415; 70450; 71046; 80053; 81003; 83735; 84145; 84484; 85025; 93005; 99284

== ENCOUNTER 2022-12-18 11:26 | Outpatient (CLI) | payer MEDICARE, SELFPAY ==
[2022-12-18 12:12] LABS: Alanine Aminotransferase 18 U/L (6-50); Albumin Level 4.2 g/dL (3.5-5.1); Alkaline Phosphatase 86 U/L (38-126); Anion Gap 4 mmol/L (8-16); Aspartate Amino Transferase 23 U/L (17-59); Bilirubin,Total 0.5 mg/dL (0.2-1.3); Blood Urea Nitrogen 31 mg/dL (9-20); Calcium 8.9 mg/dL (8.4-10.2); Carbon Dioxide 28 mmol/L (22-30); Chloride 99 mmol/L (98-107); Estimated Glomerular Filt Rate 58; Glucose 142 mg/dL (65-110); Potassium 4.3 mmol/L (3.4-5.0); Sodium 131 mmol/L (137-145)
== END 2022-12-18 11:27 | disposition home or self-care (01) ==
DX: N18.31 Chronic kidney disease, stage 3a (principal)
CPT/HCPCS: 36415; 80053

== ENCOUNTER 2022-12-26 12:27 | Emergency (ER) | payer MEDICARE, SELFPAY ==
--- NOTE | ~2022-12-26 | XR_ITS ---
EXAM: XR foot RT min 3V DATE: 12/26/2022 13:52 HISTORY: R toenail injury on big toe . COMPARISON: None available. FINDINGS: Decreased mineralization. No fracture or dislocation. No lytic or blastic lesion. Scattere d moderate and severe degenerative changes. Intact fixation screw in the distal tibia. Severe plantar enthesopathy. No erosion or periosteal change. Soft tissues within normal limits. IMPRESSION: Osteopenia. Moderate and severe degenerative changes. No definite acute osseous finding. Reviewed, dictated and finalized at location K. IMPRESSION: Osteopenia. Moderate and severe degenerative changes. No definite a cute osseous finding.
[2022-12-26 12:30] VITALS: BP 101/58; PULSE 90; RESP 16; TEMP 36.7; O2SAT 99
--- NOTE | 2022-12-26 13:39 | ED.EXTPRO ---
HPI - Extremity Problem General Chief complaint: Extremity Problem,Nontraumatic Stated complaint: wound right foot Time Seen by Provider: 12/26/22 13:08 History of Present Illness HPI Narrative: 87-year-old male with a history of dementia and diabetes reports that his daughter at bedside for right toenail injury. Patient is a poor historian, and the daughter provides history. Patient's daughter states that the patient has a tendency to pick his toenails off. She states she is somnolent taking off his right great toenail today and now it is loose and she is desiring to be removed. He does follow with a pick pulling machine tender. The daughter denies known injury or trauma. Tetanus is up-to-date. Reports the patient has history of peripheral neuropathy with poor sensation in his feet. Denies fever, vomiting, redness or purulent drainage, no other complaints. Patient is normally ANO x2-3. Related Data Home Medications Medication Instructions Recorded Confirmed glipizide 5 mg tablet 5 mg PO BID 10/04/19 03/21/22 levothyroxine 75 mcg tablet 75 mcg PO DAILY 10/04/19 03/21/22 loratadine 10 mg tablet 10 mg PO DAILY 10/04/19 03/21/22 memantine 5 mg tablet 5 mg PO BID 10/04/19 03/21/22 aspirin 81 mg tablet,delayed 81 mg PO DAILY 11/01/19 03/21/22 release (Adult Low Dose Aspirin) Allergies Allergy/AdvReac Type Severity Reaction Status Date / Time ibuprofen Allergy Rash Verified 12/26/22 13:01 Sulfa (Sulfonamide Allergy Rash Verified 12/26/22 13:01 Antibiotics) Review of Systems Review of Systems: CONSTITUTIONAL: Denies fever, chills EYES: Denies visual changes, redness, or discharge. ENT: Denies rhinorrhea, congestion, sore throat, or otalgia. CARDIOVASCULAR: Denies chest pain, palpitations, or edema. RESPIRATORY: Denies cough or dyspnea. GASTROINTESTINAL: Denies abdominal pain, nausea, vomiting, or diarrhea. GENITOURINARY: Denies dysuria or hematuria. SKIN: See HPI MUSCULOSKELETAL: Denies back pain, joint pain, or myalgia. NEUROLOGIC: Denies headache, numbness, dizziness, or weakness. PSYCHIATRIC: Denies anxiety or depression. [facility] Past Medical History Medical History Chronic kidney disease, stage 3 Baseline creatinine between 1.2 and 1.30. GFR is typically in the high 40s or lower 50s. Dementia Depression Hypothyroidism Type 2 diabetes mellitus Surgical History Surgical History History of bilateral cataract extraction History of foot surgery Debridement of diabetic foot ulcer. Hx laparoscopic cholecystectomy 07/10/21 Family History Family History Other Unknown family medical history Social History Social History Social History: Healthcare power of laminator preforms: Cassie Granados, daughter. Code status: Full code. Smoking status: Never smoker Smokeless tobacco user: chewing tobacco Additional smoking assessment comments: Quit chewing tobacco in December 2020. Alcohol intake: never Substance use: never Substance use type: does not use Living arrangements: with family Additional living arrangements comments: Lives with his daughter Cassie in [place]. 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 Gender identity (if verbalized by the patient): Male Sexual Orientation (if Verbalized by the Patient): Straight or Heterosexual Spiritual care concerns: Yes Exam Narrative: GENERAL: Well-appearing, in no acute distress. Patient resting comfortably in wheelchair. He is pleasant and conversational. HEAD: Normocephalic NECK: Supple. CHEST: No respiratory distress. Clear to auscultation, no adventitious breath sounds. HEART: Regular rate and rhythm. No murmur heard. Normal peripheral pulses. EXTREMITIES: Normal range of motion
[2022-12-26] MEDS: CEPHALEXIN 500 MG CAPSULE PO (14:01)
[2022-12-26] MEDS: LIDOCAINE HCL 1% LOCAL INJ 10 ML VIAL INFILTRATE (14:01)
== END 2022-12-26 15:27 | disposition home or self-care (01) ==
PROVIDERS: Emergency Provider Physician Assistant
DX: S91.201A Unspecified open wound of right great toe with damage to nail, initial encounter (principal); B35.1 Tinea unguium; F03.90 Unspecified dementia, unspecified severity, without behavioral disturbance, psychotic disturbance, mood disturbance, and anxiety; E11.22 Type 2 diabetes mellitus with diabetic chronic kidney disease; N18.30 Chronic kidney disease, stage 3 unspecified; E11.42 Type 2 diabetes mellitus with diabetic polyneuropathy; E03.9 Hypothyroidism, unspecified; Z87.891 Personal history of nicotine dependence; Z79.82 Long term (current) use of aspirin; Z79.84 Long term (current) use of oral hypoglycemic drugs; X58.XXXA Exposure to other specified factors, initial encounter
CPT/HCPCS: 11750; 73630; 99283; A9270

== ENCOUNTER 2023-02-16 17:22 | Emergency (ER) | payer MEDICARE, SELFPAY ==
[2023-02-16] VITALS (8 sets, daily range): BP systolic 104–158; BP diastolic 61–87; PULSE 67–84; RESP 14–22; TEMP 36.1–36.8; O2SAT 85–100
--- NOTE | ~2023-02-16 | XR_ITS ---
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 RESULT: Lines, tubes, and devices: Cholecystectomy clips. Right humeral head soft tissue anchor. Lungs and pleura: Senescent changes. Minimal streaky bibasilar scar/atelectasis Cardiomediastinal silhouette: Stable. Other: No acute osseous or upper abdominal finding. Stable mild anterior wedge deformity at T10 IMPRESSION: No acute cardiopulmonary process. Reviewed, dictated and finalized at location K. MILL OPERATOR
--- NOTE | 2023-02-16 17:31 | ECG_ITS ---
Measurements Intervals [place] Rate: 70 P: 55 [place]: 204 QRS: 52 QRSD: 136 T: 28 QT: 413 QTc: 447 Interpretive Statements SINUS RHYTHM RIGHT BUNDLE BRANCH BLOCK ABNORMAL ECG COMPARED TO ECG 07/27/2022 20:00:15 NO SIGNIFICANT CHANGES Electronically Signed On 02-17-2023 6:13:01 CREDIT ANALYSIS MANAGER by Vinicius Buck D.O.
--- NOTE | 2023-02-16 18:02 | ED.AMS ---
HPI - Altered Mental Status General Chief Complaint: Altered Mental Status Stated Complaint: increased confusion/dark urine Time Seen by Provider: 02/16/23 17:57 History of Present Illness HPI narrative: Pt presents with increased confusion over the last few days. Family is concerned he may have a UTI. Pt has baseline dementia but seems more confused per family. Pt is afebrile and has no cough. Related Data Home Medications Medication Instructions Recorded Confirmed glipizide 5 mg tablet 5 mg PO BID 10/04/19 03/21/22 levothyroxine 75 mcg tablet 75 mcg PO DAILY 10/04/19 03/21/22 loratadine 10 mg tablet 10 mg PO DAILY 10/04/19 03/21/22 memantine 5 mg tablet 5 mg PO BID 10/04/19 03/21/22 aspirin 81 mg tablet,delayed 81 mg PO DAILY 11/01/19 03/21/22 release (Adult Low Dose Aspirin) Allergies Allergy/AdvReac Type Severity Reaction Status Date / Time ibuprofen Allergy Rash Verified 12/26/22 13:01 Sulfa (Sulfonamide Allergy Rash Verified 12/26/22 13:01 Antibiotics) Review of Systems Review of Systems: ROS unobtainable: Yes unobtainable due to mental status PMFSH Past Medical History Medical History Chronic kidney disease, stage 3 Baseline creatinine between 1.2 and 1.30. GFR is typically in the high 40s or lower 50s. Dementia Depression Hypothyroidism Type 2 diabetes mellitus Surgical History Surgical History History of bilateral cataract extraction History of foot surgery Debridement of diabetic foot ulcer. Hx laparoscopic cholecystectomy 07/10/21 Family History Family History Other Unknown family medical history Social History Social History Social History: Healthcare power of stock shaper: Cassie Granados, daughter. Code status: Full code. Smoking status: Never smoker Smokeless tobacco user: chewing tobacco Additional smoking assessment comments: Quit chewing tobacco in December 2020. Alcohol intake: never Substance use: never Substance use type: does not use Living arrangements: with family Additional living arrangements comments: Lives with his daughter Cassie in [place]. 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 Gender identity (if verbalized by the patient): Male Sexual Orientation (if Verbalized by the Patient): Straight or Heterosexual Spiritual care concerns: Yes Exam Const: General: healthy appearing and no acute distress Nutritional Appearance: well nourished Orientation/consciousness: patient oriented x3 Limitations: no limitations Eyes: Conjunctivae: conjunctivae normal Neck: Neck: normal visual inspection Resp: Effort & Inspection: normal respiratory effort Auscultation: clear to auscultation bilaterally Cardio: Rate: regular rate Rhythm: regular rhythm GI: GI Palp: Yes Soft to palpation Auscultation: normal bowel sounds Skin: General skin exam: normal color Wounds: no wounds Neuro: General: patient oriented x3, moves all extremities and no focal motor deficits Extrem: General: normal to inspection and no clubbing, cyanosis or edema Psych: Other: confused Course Vital Signs Vital signs: Vital Signs Temperature 97.0 F L 02/16/23 17:25 Pulse Rate 71 02/16/23 17:25 Respiratory Rate 16 02/16/23 17:25 Blood Pressure 158/87 H 02/16/23 17:25 Pulse Oximetry 98 02/16/23 17:25 Oxygen Delivery Room Air 02/16/23 17:25 Temperature 98.2 F 02/16/23 21:03 Pulse Rate 67 02/16/23 21:03 Respiratory Rate 16 02/16/23 21:03 Blood Pressure 127/65 02/16/23 21:03 Pulse Oximetry 98 02/16/23 21:03 Oxygen Delivery Room Air 02/16/23 19:32 MDM - Altered Mental Status Differential Diagnosis Differential diagnosis: Likely altered
[2023-02-16 18:32] LABS: Basophils Absolute Auto 0.1 K/mm3 (0.0-0.1); Basophils Percent Auto 1.3 % (0.2-1.2); Eosinophils Absolute Auto 0.2 K/mm3 (0-0.3); Hematocrit 42.2 % (42.0-52.0); Hemoglobin 13.7 g/dL (14.0-18.0); Immature Granulocyte Absolute 0.02 K/mm3 (0.00-0.031); Immature Granulocyte Percent A 0.3 % (0-0.5); Lymphocytes Absolute Auto 1.28 K/mm3 (0.9-3.2); Lymphocytes Percent Auto 21.5 % (18.3-44.2); Mean Corpuscular HGB Conc 32.5 g/dl (32-36); Mean Corpuscular Hemoglobin 32.5 pg (26-34); Mean Platelet Volume 10.4 fl (7.4-10.4); Monocytes Absolute Auto 0.7 K/mm3 (0.1-0.6); Monocytes Percent Auto 11.4 % (2.6-8.5); Neutrophils Absolute Auto 3.7 K/mm3 (1.3-6.7); Neutrophils Percent Auto 62.5 % (45.5-73.1); Platelet Count Result 244 k/mm3 (150-375); Red Blood Count 4.22 M/mm3 (4.6-6.20); Red Cell Distribution Width 13.4 % (11.5-14.5); White Blood Count 5.9 K/mm3 (4.5-10.0)
[2023-02-16 18:45] LABS: Alanine Aminotransferase 16 U/L (6-50); Alkaline Phosphatase 68 U/L (38-126); Anion Gap 9 mmol/L (8-16); Aspartate Amino Transferase 22 U/L (17-59); Bilirubin,Total 0.5 mg/dL (0.2-1.3); Blood Urea Nitrogen 24 mg/dL (9-20); CRP 1.1 mg/dL (<1.0); Calcium 8.9 mg/dL (8.4-10.2); Carbon Dioxide 25 mmol/L (22-30); Chloride 99 mmol/L (98-107); Estimated CRCL calculation 30 ml/min; Estimated Glomerular Filt Rate 52; Glucose 125 mg/dL (65-110); Potassium 4.4 mmol/L (3.4-5.0); Sodium 133 mmol/L (137-145)
[2023-02-16 18:49] LABS: INR 1.1; Partial Thromboplastin Time 31.4 SECONDS (22.3-36.8); Prothrombin Time 14.7 Seconds (11.1-14.7)
--- NOTE | 2023-02-16 19:17 | PC.NURSE ---
unsuccessful catheterization performed bladder scan afterwards which showed 200 ml of urine
--- NOTE | 2023-02-16 19:31 | PC.NURSE ---
Notified Dr. Bolton of unsuccessful straight catheter attempt. Per Dr. Bolton place a Murillo catheter.
[2023-02-16 20:23] LABS: Appearance Urine Clear (Clear); Bilirubin Urine Negative (Negative); Blood Urine Negative (Negative); Color Urine Yellow (Yellow); Glucose Urine UA Negative (Negative); Ketones Urine Negative (Negative); Leukocyte Esterase Ur Negative LEU/UL (Negative); Nitrate Urine Negative (Negative); Protein Urine Negative (Negative); Specific Grav Ur 1.015 (1.001-1.035); Urobilinogen Urine 0.2 mg/dL (<2.0); pH Urine 5.5 (5.0-9.0)
[2023-02-16 20:25] LABS: Add Urine Microscopic? NO
== END 2023-02-16 21:05 | disposition home or self-care (01) ==
PROVIDERS: Emergency Provider Emergency Medicine
DX: F03.90 Unspecified dementia, unspecified severity, without behavioral disturbance, psychotic disturbance, mood disturbance, and anxiety (principal); R41.82 Altered mental status, unspecified; N18.30 Chronic kidney disease, stage 3 unspecified; F32.A Depression, unspecified; E03.9 Hypothyroidism, unspecified; E11.9 Type 2 diabetes mellitus without complications; Z98.42 Cataract extraction status, left eye; Z98.41 Cataract extraction status, right eye; Z87.891 Personal history of nicotine dependence; Z90.49 Acquired absence of other specified parts of digestive tract; Z79.82 Long term (current) use of aspirin; Z79.84 Long term (current) use of oral hypoglycemic drugs
CPT/HCPCS: 36415; 71046; 80053; 81003; 83605; 85025; 85610; 85730; 86140; 87040; 93005; 99284

== ENCOUNTER 2023-02-23 13:47 | Emergency (ER) | payer MEDICARE, SELFPAY ==
[2023-02-23] VITALS (21 sets, daily range): BP systolic 95–123; BP diastolic 43–89; PULSE 67–90; RESP 12–20; TEMP 36.4–36.6; O2SAT 93–100
--- NOTE | ~2023-02-23 | XR_ITS ---
XR knee LT 3V 02/23/2023 14:59 Indication: Status post fall. Left knee pain. Procedure: 3 views left knee Comparison: No prior studies for comparison. 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 No significant joint ef fusion. Mild prepatellar soft tissue swelling. No acute fracture or traumatic malalignment. Impression: 1: No acute fracture. Reviewed, dictated and finalized at location L. CUTTER Impression: 1: No acute fracture.
--- NOTE | ~2023-02-23 | CT_ITS ---
EXAMINATION: CT brain wo con DATE: 02/23/2023 14:48 INDICATION: fall . TECHNIQUE: Computed tomography (CT) of the head was performed without intravenous contrast. The mA wa s adjusted according to patient size. Iterative reconstruction technique was employed. The dose-lengt h product was 605.33 mGy-cm. COMPARISON: 07/27/2022. FINDINGS: No acute intracranial hemorrhage or extra-axial fluid collection. No hydrocephalus, mass, or herniation. No acute ischemic infarct. Unremarkable dural venous sinus attenuation. No acute osseous abnormality. The aerated spaces are clear. Moderate atrophy and chronic white matter change. Atherosclerotic intracranial calcification. Bilater al lens replacements. IMPRESSION: No acute intracranial process. Reviewed, dictated and finalized at location K. 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
--- NOTE | ~2023-02-23 | XR_ITS ---
XR chest 2V 02/23/2023 14:59 Indication: Status post fall. Chest pain. Procedure: 2 view chest Comparison: Comparison to multiple prior studies sequentially, with oldest reviewed study dated 01/21. Findings: Heart size normal. Left basilar atelectasis. No focal pneumonia, edema, pleural effusion or pneumothorax. There is atherosclerosis. No acute osseous abnormality. Impression: 1: Left basilar atelectasis. Reviewed, dictated and finalized at location L. BIOLOGIST Impression: 1: Left basilar atelectasis.
--- NOTE | 2023-02-23 13:49 | ECG_ITS ---
Measurements Intervals [place] Rate: 76 P: 41 [place]: 194 QRS: 56 QRSD: 133 T: 34 QT: 396 QTc: 446 Interpretive Statements SINUS RHYTHM RIGHT BUNDLE BRANCH BLOCK [120+ ms QRS DURATION, UPRIGHT V1, 40+ ms S IN I/aVL/V4/V5/V6] COMPARED TO ECG 02/16/2023 17:53:27 NO SIGNIFICANT CHANGES Electronically Signed On 02-23-2023 20:18:37 DATA CLERK by Manasa Aguilera M.D.
--- NOTE | 2023-02-23 13:52 | ED.SYNCOPE ---
HPI - Syncope General Chief Complaint: Syncope Stated Complaint: syncope Time Seen by Provider: 02/23/23 13:48 Source: patient and family (daughter) Limitations: dementia History of Present Illness HPI narrative: Patient has a history of diabetes and dementia and presents to the ED. Initial report is of syncope but daughter provides history. He states he hasn't been feeling well for 1 week. SHe was attempting to change clothes to take a shower when he stood to step down on the step just beside the bed and he fell with his left knee hyperflexed. She felt he froze for a little bit immediately after, was not responding to her but denies loss of consciousness of muscle tone. No seizure activity witnessed. He did have increased confusion after including right now as he states he was in the garage. Not on anticoagulation except 81mg aspirin. DId not hit head. He has had an occasional cough. Patient denies any complaints: no chest pain, difficulty breathing, extremity pain, abdominal pain, headache. Related Data Home Medications Medication Instructions Recorded Confirmed glipizide 5 mg tablet 5 mg PO BID 10/04/19 03/21/22 levothyroxine 75 mcg tablet 75 mcg PO DAILY 10/04/19 03/21/22 loratadine 10 mg tablet 10 mg PO DAILY 10/04/19 03/21/22 memantine 5 mg tablet 5 mg PO BID 10/04/19 03/21/22 aspirin 81 mg tablet,delayed 81 mg PO DAILY 11/01/19 03/21/22 release (Adult Low Dose Aspirin) Allergies Allergy/AdvReac Type Severity Reaction Status Date / Time ibuprofen Allergy Rash Verified 12/26/22 13:01 Sulfa (Sulfonamide Allergy Rash Verified 12/26/22 13:01 Antibiotics) [facility] Past Medical History Medical History Chronic kidney disease, stage 3 Baseline creatinine between 1.2 and 1.30. GFR is typically in the high 40s or lower 50s. Dementia Depression Hypothyroidism Type 2 diabetes mellitus Surgical History Surgical History History of bilateral cataract extraction History of foot surgery Debridement of diabetic foot ulcer. Hx laparoscopic cholecystectomy 07/10/21 Family History Family History Other Unknown family medical history Social History Social History Social History: Healthcare power of cradle placer: Cassie Granados, daughter. Code status: Full code. Smoking status: Never smoker Smokeless tobacco user: chewing tobacco Additional smoking assessment comments: Quit chewing tobacco in December 2020. Alcohol intake: never Substance use: never Substance use type: does not use Living arrangements: with family Additional living arrangements comments: Lives with his daughter Cassie in [place]. 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 Gender identity (if verbalized by the patient): Male Sexual Orientation (if Verbalized by the Patient): Straight or Heterosexual Spiritual care concerns: Yes Exam Narrative: GENERAL: Well-appearing, well-nourished, and in no acute distress. HEAD: Normocephalic, atraumatic. EYES: Non injected, non icteric ENT: Nares clear, no rhinorrhea or epistaxis. NECK: Supple. CHEST: Clear to auscultation. No respiratory distress. HEART: Regular rate and rhythm. . ABDOMEN: Soft, nondistended. EXTREMITIES: Normal range of motion. No edema. Extremities x4 palpated and found to be nontender. Able to move bilateral arms with flexion/extension at elbows and flexion/extension at bilateral knees. SKIN: Warm, dry, no rash. NEURO: No focal deficits. Alert and oriented to self and daughter but memory not intact to health history or situational details. PSYCH: Normal mood and affect. Course Vital Signs Vital signs: Vital Signs Temperature 97.5 F L 02/23/23 13:49 Pulse Rate 90 02/23/23 13:
[2023-02-23 14:20] LABS: Glucose Point of Care 158 mg/dl (65-105)
[2023-02-23 14:44] LABS: Basophils Absolute Auto 0.1 K/mm3 (0.0-0.1); Basophils Percent Auto 0.5 % (0.2-1.2); Eosinophils Absolute Auto 0.2 K/mm3 (0-0.3); Eosinophils Percent Auto 1.4 % (0-4.4); Hematocrit 41.2 % (42.0-52.0); Hemoglobin 13.4 g/dL (14.0-18.0); Immature Granulocyte Absolute 0.05 K/mm3 (0.00-0.031); Immature Granulocyte Percent A 0.4 % (0-0.5); Lymphocytes Absolute Auto 1.19 K/mm3 (0.9-3.2); Lymphocytes Percent Auto 10.4 % (18.3-44.2); Mean Corpuscular HGB Conc 32.5 g/dl (32-36); Mean Corpuscular Hemoglobin 32.4 pg (26-34); Mean Corpuscular Volume 99.8 fl (80-100); Mean Platelet Volume 10.6 fl (7.4-10.4); Monocytes Absolute Auto 1.1 K/mm3 (0.1-0.6); Monocytes Percent Auto 9.4 % (2.6-8.5); Neutrophils Absolute Auto 8.9 K/mm3 (1.3-6.7); Neutrophils Percent Auto 77.9 % (45.5-73.1); Platelet Count Result 206 k/mm3 (150-375); Red Blood Count 4.13 M/mm3 (4.6-6.20); Red Cell Distribution Width 13.5 % (11.5-14.5); White Blood Count 11.4 K/mm3 (4.5-10.0)
[2023-02-23 14:56] LABS: Alanine Aminotransferase 15 U/L (6-50); Albumin Level 3.8 g/dL (3.5-5.1); Alkaline Phosphatase 66 U/L (38-126); Anion Gap 10 mmol/L (8-16); Aspartate Amino Transferase 27 U/L (17-59); Bilirubin,Total 0.9 mg/dL (0.2-1.3); Blood Urea Nitrogen 20 mg/dL (9-20); Calcium 8.8 mg/dL (8.4-10.2); Carbon Dioxide 23 mmol/L (22-30); Chloride 100 mmol/L (98-107); Estimated CRCL calculation 38 ml/min; Estimated Glomerular Filt Rate 58; Glucose 157 mg/dL (65-110); INR 1.1; Potassium 4.6 mmol/L (3.4-5.0); Prothrombin Time 14.4 Seconds (11.1-14.7); Sodium 133 mmol/L (137-145)
[2023-02-23 14:57] LABS: Partial Thromboplastin Time 34.2 SECONDS (22.3-36.8)
[2023-02-23 15:08] LABS: Troponin I < 0.012 ng/mL (0.000-0.034)
[2023-02-23] MEDS: ACETAMINOPHEN 500 MG TABLET 1000 MG PO (15:24)
[2023-02-23 17:06] LABS: Appearance Urine Cloudy (Clear); Bacteria Urine 2+ /hpf; Bilirubin Urine Negative (Negative); Blood Urine Negative (Negative); Color Urine Yellow (Yellow); Glucose Urine UA Negative (Negative); Ketones Urine 1+ mg/dL (Negative); Leukocyte Esterase Ur 1+ LEU/UL (Negative); Need Manual Microscopic Reviewed; Nitrate Urine Positive (Negative); Non Pathogenic Casts 0-2; Protein Urine Trace mg/dL (Negative); RBC Urine 0-2 /hpf (0-2); Specific Grav Ur 1.016 (1.001-1.035); Squamous Epithelial Cell Urine None seen /hpf (Few)
[2023-02-23 17:08] LABS: Add Urine Microscopic? YES
[2023-02-23] MEDS: NITROFURANTOIN MONOHYD MACROCR 100 MG CAP PO (20:04)
== END 2023-02-23 20:58 | disposition home or self-care (01) ==
PROVIDERS: Emergency Provider Student in an Organized Health Care Education/Training Program
DX: N39.0 Urinary tract infection, site not specified (principal); S89.92XA Unspecified injury of left lower leg, initial encounter; F03.90 Unspecified dementia, unspecified severity, without behavioral disturbance, psychotic disturbance, mood disturbance, and anxiety; E11.22 Type 2 diabetes mellitus with diabetic chronic kidney disease; N18.30 Chronic kidney disease, stage 3 unspecified; E03.9 Hypothyroidism, unspecified; Z98.49 Cataract extraction status, unspecified eye; Z87.891 Personal history of nicotine dependence; Z90.49 Acquired absence of other specified parts of digestive tract; W10.9XXA Fall (on) (from) unspecified stairs and steps, initial encounter; I45.10 Unspecified right bundle-branch block; Z79.82 Long term (current) use of aspirin; Z79.84 Long term (current) use of oral hypoglycemic drugs
CPT/HCPCS: 36415; 70450; 71046; 73562; 80053; 81001; 82948; 83735; 84484; 85025; 85610; 85730; 87086; 87147; 87181; 87186; 93005; 99284; A9270

== ENCOUNTER 2023-03-01 13:42 | Outpatient (CLI) | payer MEDICARE, SELFPAY ==
[2023-03-01 15:01] LABS: Appearance Urine Cloudy (Clear); Bacteria Urine None Seen /hpf; Bilirubin Urine Negative (Negative); Blood Urine Negative (Negative); Color Urine Yellow (Yellow); Glucose Urine UA Negative (Negative); Ketones Urine Negative (Negative); Leukocyte Esterase Ur 1+ LEU/UL (NEGATIVE); Nitrate Urine Negative (Negative); Non Pathogenic Casts 0-2; Protein Urine Negative (Negative); RBC Urine 0-2 /hpf (0-2); Specific Grav Ur 1.016 (1.001-1.035); Squamous Epithelial Cell Urine None seen /hpf (Few); Urobilinogen Urine 0.2 mg/dL (<2.0); pH Urine 5.5 (5.0-9.0)
[2023-03-01 15:06] LABS: Add Urine Microscopic? YES
== END 2023-03-01 13:43 | disposition home or self-care (01) ==
DX: N30.00 Acute cystitis without hematuria (principal)
CPT/HCPCS: 81001; 87086

== ENCOUNTER 2023-03-16 16:45 | Emergency (ER) | payer MEDICARE, SELFPAY ==
[2023-03-16 17:10] VITALS: BP 107/64; PULSE 90; RESP 16; TEMP 36.7; O2SAT 100
[2023-03-16 22:06] LABS: Glucose Point of Care 155 mg/dl (65-105)
== END 2023-03-16 19:34 | disposition left against medical advice (07) ==
LOC: ANHED 18:05
PROVIDERS: Emergency Provider Emergency Medicine
DX: Z53.21 Procedure and treatment not carried out due to patient leaving prior to being seen by health care provider (principal)
CPT/HCPCS: 82948; 99199

== ENCOUNTER 2023-07-20 15:46 | Outpatient (CLI) | payer MEDICARE, SELFPAY ==
[2023-07-20 16:21] LABS: Basophils Absolute Auto 0.1 K/mm3 (0.0-0.1); Basophils Percent Auto 0.7 % (0.2-1.2); Eosinophils Absolute Auto 0.2 K/mm3 (0-0.3); Eosinophils Percent Auto 3.2 % (0-4.4); Hematocrit 43.7 % (42.0-52.0); Hemoglobin 14.7 g/dL (14.0-18.0); Immature Granulocyte Absolute 0.03 K/mm3 (0.00-0.031); Immature Granulocyte Percent A 0.4 % (0-0.5); Lymphocytes Absolute Auto 1.69 K/mm3 (0.9-3.2); Lymphocytes Percent Auto 24.6 % (18.3-44.2); Mean Corpuscular HGB Conc 33.6 g/dl (32-36); Mean Corpuscular Hemoglobin 32.8 pg (26-34); Mean Corpuscular Volume 97.5 fl (80-100); Mean Platelet Volume 10.3 fl (7.4-10.4); Monocytes Absolute Auto 0.8 K/mm3 (0.1-0.6); Monocytes Percent Auto 12.2 % (2.6-8.5); Neutrophils Percent Auto 58.9 % (45.5-73.1); Platelet Count Result 253 k/mm3 (150-375); Red Blood Count 4.48 M/mm3 (4.6-6.20); Red Cell Distribution Width 13.1 % (11.5-14.5); White Blood Count 6.9 K/mm3 (4.5-10.0)
[2023-07-20 16:38] LABS: Alanine Aminotransferase 14 U/L (6-50); Albumin Level 4.4 g/dL (3.5-5.1); Alkaline Phosphatase 76 U/L (38-126); Anion Gap 6 mmol/L (4-12); Aspartate Amino Transferase 23 U/L (17-59); Bilirubin,Total 0.5 mg/dL (0.2-1.3); Blood Urea Nitrogen 27 mg/dL (9-20); Calcium 9.4 mg/dL (8.4-10.2); Carbon Dioxide 27 mmol/L (22-30); Chloride 96 mmol/L (98-107); Estimated Glomerular Filt Rate 57; Glucose 172 mg/dL (65-110); Potassium 4.5 mmol/L (3.4-5.0); Sodium 129 mmol/L (137-145)
== END 2023-07-20 15:47 | disposition home or self-care (01) ==
DX: N18.31 Chronic kidney disease, stage 3a (principal); D63.1 Anemia in chronic kidney disease
CPT/HCPCS: 36415; 80053; 85025

== ENCOUNTER 2023-08-27 21:22 | Emergency (ER) | payer MEDICARE, SELFPAY ==
[2023-08-27] VITALS (18 sets, daily range): BP systolic 109–134; BP diastolic 69–91; PULSE 76–100; RESP 14–20; TEMP 36.6; O2SAT 91–100
--- NOTE | 2023-08-27 21:28 | ECG_ITS ---
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 Measurements Intervals [place] Rate: 85 P: 73 ME: 198 QRS: 66 QRSD: 136 T: 41 QT: 375 QTc: 448 Interpretive Statements SINUS RHYTHM RIGHT BUNDLE BRANCH BLOCK [120+ ms QRS DURATION, UPRIGHT V1, 40+ ms S IN I/aVL/V4/V5/V6] ABNORMAL ECG No previous ECG available for comparison Electronically Signed On 08-28-2023 08:07:30 CDT by Dru Zazueta M.D.
[2023-08-27 21:47] LABS: Basophils Absolute Auto 0.1 K/mm3 (0.0-0.1); Basophils Percent Auto 0.9 % (0.2-1.2); Eosinophils Absolute Auto 0.2 K/mm3 (0-0.3); Eosinophils Percent Auto 2.9 % (0-4.4); Hematocrit 41.5 % (42.0-52.0); Hemoglobin 14.6 g/dL (14.0-18.0); Immature Granulocyte Absolute 0.02 K/mm3 (0.00-0.031); Immature Granulocyte Percent A 0.3 % (0-0.5); Lymphocytes Absolute Auto 1.21 K/mm3 (0.9-3.2); Lymphocytes Percent Auto 18.6 % (18.3-44.2); Mean Corpuscular HGB Conc 35.2 g/dl (32-36); Mean Corpuscular Hemoglobin 33.5 pg (26-34); Mean Corpuscular Volume 95.2 fl (80-100); Mean Platelet Volume 10.3 fl (7.4-10.4); Monocytes Absolute Auto 0.7 K/mm3 (0.1-0.6); Monocytes Percent Auto 11.1 % (2.6-8.5); Neutrophils Absolute Auto 4.3 K/mm3 (1.3-6.7); Neutrophils Percent Auto 66.2 % (45.5-73.1); Platelet Count Result 231 k/mm3 (150-375); Red Blood Count 4.36 M/mm3 (4.6-6.20); White Blood Count 6.5 K/mm3 (4.5-10.0)
[2023-08-27 22:03] LABS: Alanine Aminotransferase 13 U/L (6-50); Albumin Level 4.2 g/dL (3.5-5.1); Alkaline Phosphatase 71 U/L (38-126); Anion Gap 8 mmol/L (4-12); Aspartate Amino Transferase 20 U/L (17-59); Bilirubin,Total 0.6 mg/dL (0.2-1.3); Blood Urea Nitrogen 22 mg/dL (9-20); Calcium 8.8 mg/dL (8.4-10.2); Carbon Dioxide 23 mmol/L (22-30); Chloride 96 mmol/L (98-107); Estimated CRCL calculation 40 ml/min; Estimated Glomerular Filt Rate > 60; Glucose 220 mg/dL (65-110); Potassium 4.3 mmol/L (3.4-5.0); Sodium 127 mmol/L (137-145)
[2023-08-27] MEDS: SODIUM CHLORIDE 0.9% IV 1,000 ML 999 ML IV CONT (23:40)
--- NOTE | 2023-08-27 23:44 | ED.GENADULT ---
HPI - General Adult General Chief complaint: Syncope Stated complaint: near syncope Time Seen by Provider: 08/27/23 21:31 History of Present Illness HPI narrative: Patient is an 88-year-old male who presents ER after having near syncope at home. Patient had actually voided on himself and was getting the toilet. Then while sitting on the toilet he had release of bowel. Family reports he looked lightheaded and like he might lose consciousness. Patient has had some issues with hyponatremia in the past. He has been on a fluid restriction. No reports of fevers or chills or sweats. Patient has dementia and cannot provide history. He is in no distress at this time. Related Data Home Medications Medication Instructions Recorded Confirmed glipizide 5 mg tablet 5 mg PO BID 10/04/19 03/21/22 levothyroxine 75 mcg tablet 75 mcg PO DAILY 10/04/19 03/21/22 loratadine 10 mg tablet 10 mg PO DAILY 10/04/19 03/21/22 memantine 5 mg tablet 5 mg PO BID 10/04/19 03/21/22 aspirin 81 mg tablet,delayed 81 mg PO DAILY 11/01/19 03/21/22 release (Adult Low Dose Aspirin) Allergies Allergy/AdvReac Type Severity Reaction Status Date / Time ibuprofen Allergy Rash Verified 08/27/23 21:37 Sulfa (Sulfonamide Allergy Rash Verified 08/27/23 21:37 Antibiotics) Review of Systems Review of Systems: ROS unobtainable: Yes unobtainable due to mental status PMFSH Past Medical History Medical History Chronic kidney disease, stage 3 Baseline creatinine between 1.2 and 1.30. GFR is typically in the high 40s or lower 50s. Dementia Depression Hypothyroidism Type 2 diabetes mellitus Surgical History Surgical History History of bilateral cataract extraction History of foot surgery Debridement of diabetic foot ulcer. Hx laparoscopic cholecystectomy 07/10/21 Family History Family History Other Unknown family medical history Social History Social History Social History: Healthcare power of employment attorney: Cassie Granados, daughter. Code status: Full code. Smoking status: Never smoker Smokeless tobacco user: chewing tobacco Additional smoking assessment comments: Quit chewing tobacco in December 2020. Alcohol intake: never Substance use: never Substance use type: does not use Living arrangements: with family Additional living arrangements comments: Lives with his daughter Cassie in [place]. 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 Gender identity (if verbalized by the patient): Male Sexual Orientation (if Verbalized by the Patient): Straight or Heterosexual Spiritual care concerns: Yes Exam Narrative: GENERAL: Well-appearing, well-nourished, and in no acute distress. HEAD: Normocephalic, atraumatic. ENT: Mucous membranes moist. NECK: Supple. CHEST: Clear to auscultation. No respiratory distress. HEART: Regular rate and rhythm. Normal peripheral pulses. ABDOMEN: Soft, nontender, nondistended. EXTREMITIES: Normal range of motion. No edema. SKIN: Warm, dry, no rash. NEURO: Alert and oriented x2. PSYCH: Normal mood and affect. Course Course Emergency Course: Patient was orthostatic. Improved with fluids. Family feels comfortable bringing him home. Vital Signs Vital signs: Vital Signs Temperature 97.8 F 08/27/23 21:28 Pulse Rate 83 08/27/23 21:28 Respiratory Rate 20 08/27/23 21:28 Blood Pressure 120/78 08/27/23 21:28 Pulse Oximetry 97 08/27/23 21:28 Oxygen Delivery Room Air 08/27/23 21:28 Temperature 97.8 F 08/27/23 21:28 Pulse Rate 81 08/28/23 02:00 Respiratory Rate 17 08/28/23 02:00 Blood Pressure 141/94 H 08/28/23 01:31 Pulse Oximetry 97 08/28/23 01:31 Oxygen Delivery Room Air
[2023-08-28] VITALS (12 sets, daily range): BP systolic 102–141; BP diastolic 54–94; PULSE 75–100; RESP 15–23; O2SAT 97–100
--- NOTE | 2023-08-28 01:25 | PC.NURSE ---
Repeat orthostats done, patient tolerated well. Patient was able to sit up on his own as well as move to the edge of the bed and stand with walker with minimal assistance. Patients daughter also states he looks so much better. ERP notified.
== END 2023-08-28 02:15 | disposition home or self-care (01) ==
PROVIDERS: Emergency Provider Emergency Medicine
DX: R55 Syncope and collapse (principal); R42 Dizziness and giddiness; R94.31 Abnormal electrocardiogram [ECG] [EKG]; N18.30 Chronic kidney disease, stage 3 unspecified; F03.90 Unspecified dementia, unspecified severity, without behavioral disturbance, psychotic disturbance, mood disturbance, and anxiety; F32.A Depression, unspecified; E03.9 Hypothyroidism, unspecified; E11.9 Type 2 diabetes mellitus without complications
CPT/HCPCS: 36415; 80053; 85025; 93005; 96360; 99284; J7030

== ENCOUNTER 2023-09-01 13:28 | Emergency (ER) | payer MEDICARE, SELFPAY ==
[2023-09-01] VITALS (7 sets, daily range): BP systolic 113–130; BP diastolic 63–91; PULSE 74–80; RESP 14–18; TEMP 36.6; O2SAT 98–100
--- NOTE | ~2023-09-01 | CT_ITS ---
CT head without contrast Indication: Weakness COMPARISON: 02/23/2023 Technique: Serial scans were obtained through the brain without the administration of contrast. Dose reduction technique was used on this scan by utilizing automated exposure control and iterative recon struction technique. The dose-length product (DLP) was 756.67 mGy-cm. Findings: There is no evidence of intracranial hemorrhage, mass lesion, or acute infarct. The ventri cles and subarachnoid spaces are dilated, consistent with moderate to advanced atrophy. Low attenuat ion regions are seen within the periventricular white matter bilaterally, likely representing changes from chronic microvascular ischemic disease. There is no evidence of edema, mass effect or midline shift. The visualized paranasal sinuses and mastoid air cells are clear. Impression: No intracranial hemorrhage, mass, or acute infarct. Atrophy and chronic white matter changes, as above. Reviewed, dictated and finalized at location . Impression: No intracranial hemorrhage, mass, or acute infarct. Atrophy and chronic white matter changes, as above.
[2023-09-01 14:02] LABS: Basophils Absolute Auto 0.1 K/mm3 (0.0-0.1); Eosinophils Absolute Auto 0.2 K/mm3 (0-0.3); Eosinophils Percent Auto 3.6 % (0-4.4); Hematocrit 40.9 % (42.0-52.0); Hemoglobin 14.1 g/dL (14.0-18.0); Immature Granulocyte Absolute 0.02 K/mm3 (0.00-0.031); Immature Granulocyte Percent A 0.3 % (0-0.5); Lymphocytes Absolute Auto 1.52 K/mm3 (0.9-3.2); Lymphocytes Percent Auto 24.8 % (18.3-44.2); Mean Corpuscular HGB Conc 34.5 g/dl (32-36); Mean Corpuscular Hemoglobin 33.4 pg (26-34); Mean Corpuscular Volume 96.9 fl (80-100); Mean Platelet Volume 10.1 fl (7.4-10.4); Monocytes Absolute Auto 0.8 K/mm3 (0.1-0.6); Monocytes Percent Auto 12.7 % (2.6-8.5); Neutrophils Absolute Auto 3.5 K/mm3 (1.3-6.7); Neutrophils Percent Auto 57.6 % (45.5-73.1); Platelet Count Result 228 k/mm3 (150-375); Red Blood Count 4.22 M/mm3 (4.6-6.20); Red Cell Distribution Width 12.9 % (11.5-14.5); White Blood Count 6.1 K/mm3 (4.5-10.0)
[2023-09-01 14:08] LABS: Appearance Urine Clear (Clear); Bilirubin Urine Negative (Negative); Blood Urine Negative (Negative); Color Urine Yellow (Yellow); Glucose Urine UA Negative (Negative); Ketones Urine Negative (Negative); Leukocyte Esterase Ur Negative LEU/UL (Negative); Nitrate Urine Negative (Negative); Protein Urine Negative (Negative); Urobilinogen Urine 0.2 mg/dL (<2.0)
[2023-09-01 14:17] LABS: Alanine Aminotransferase 13 U/L (6-50); Albumin Level 3.9 g/dL (3.5-5.1); Alkaline Phosphatase 61 U/L (38-126); Anion Gap 8 mmol/L (4-12); Aspartate Amino Transferase 22 U/L (17-59); Bilirubin,Total 0.7 mg/dL (0.2-1.3); Blood Urea Nitrogen 19 mg/dL (9-20); Carbon Dioxide 24 mmol/L (22-30); Chloride 96 mmol/L (98-107); Estimated CRCL calculation 45 ml/min; Estimated Glomerular Filt Rate > 60; Glucose 131 mg/dL (65-110); Potassium 4.5 mmol/L (3.4-5.0); Sodium 128 mmol/L (137-145)
[2023-09-01 14:30] LABS: Add Urine Microscopic? NO
[2023-09-01] MEDS: SODIUM CHLORIDE 0.9% IV 1,000 ML 1000 ML (15:18)
--- NOTE | 2023-09-01 15:19 | PC.NURSE ---
positive orthostatic, per Dr. Drummond give 1L NS
--- NOTE | 2023-09-01 16:51 | PC.NURSE ---
ambulated in [place] with use of walker. Daughter reports that is his normal gait
--- NOTE | 2023-09-01 17:06 | ED.GENADULT ---
HPI - General Adult General Chief complaint: Weakness Stated complaint: ?hypotensive Time Seen by Provider: 09/01/23 13:45 History of Present Illness HPI narrative: patient is an 88-year-old male who presents ER from home with concerns for dehydration. Patient was having some weakness today and his daughter did his blood pressure and it was in the 80s. Patient has not been having any diarrhea. Patient is seen for similar weakness earlier in the week. Patient is on a fluid restriction due to history of hyponatremia. He only drinks 1 L of water a day and then gets the rest of his fluid through Gatorade 0. Daughter reports patient has been chewing his food that has not particularly been actively swelling. No new focal weakness of an arm or leg. Occasional drooling. Related Data Home Medications Medication Instructions Recorded Confirmed glipizide 5 mg tablet 5 mg PO BID 10/04/19 03/21/22 levothyroxine 75 mcg tablet 75 mcg PO DAILY 10/04/19 03/21/22 loratadine 10 mg tablet 10 mg PO DAILY 10/04/19 03/21/22 memantine 5 mg tablet 5 mg PO BID 10/04/19 03/21/22 aspirin 81 mg tablet,delayed 81 mg PO DAILY 11/01/19 03/21/22 release (Adult Low Dose Aspirin) Allergies Allergy/AdvReac Type Severity Reaction Status Date / Time ibuprofen Allergy Rash Verified 08/27/23 21:37 Sulfa (Sulfonamide Allergy Rash Verified 08/27/23 21:37 Antibiotics) Review of Systems Review of Systems: ROS unobtainable: Yes unobtainable due to mental status PMFSH Past Medical History Medical History Chronic kidney disease, stage 3 Baseline creatinine between 1.2 and 1.30. GFR is typically in the high 40s or lower 50s. Dementia Depression Hypothyroidism Type 2 diabetes mellitus Surgical History Surgical History History of bilateral cataract extraction History of foot surgery Debridement of diabetic foot ulcer. Hx laparoscopic cholecystectomy 07/10/21 Family History Family History Other Unknown family medical history Social History Social History (Reviewed 12/26/22 @ 13:41 by ADALI Mehta Social History: Healthcare power of workers compensation defense attorney: Cassie Granados, daughter. Code status: Full code. Smoking status: Never smoker Smokeless tobacco user: chewing tobacco Additional smoking assessment comments: Quit chewing tobacco in December 2020. Alcohol intake: never Substance use: never Substance use type: does not use Living arrangements: with family Additional living arrangements comments: Lives with his daughter Cassie in [place]. 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 Gender identity (if verbalized by the patient): Male Sexual Orientation (if Verbalized by the Patient): Straight or Heterosexual Spiritual care concerns: Yes Exam Narrative: GENERAL: Chronically ill-appearing, well-nourished, and in no acute distress. HEAD: Normocephalic, atraumatic. ENT: Mucous membranes moist. NECK: Supple. CHEST: Clear to auscultation. No respiratory distress. HEART: Regular rate and rhythm. Normal peripheral pulses. ABDOMEN: Soft, nontender, nondistended. EXTREMITIES: Normal range of motion. No edema. SKIN: Warm, dry, no rash. NEURO: Alert and oriented x2. PSYCH: Normal mood and affect. Course Course Emergency Course: patient received some fluid. Labs unremarkable. Imaging without stroke. Feel most of patient's issues related to decline in his dementia. Patient is able ambulate with a walker. Family has no interest in placement in a facility. Will be following up with his PCP in 2 days. Vital Signs Vital signs: Vital Signs Temperature 97.9 F 09/01/23 13:57 Pulse Rate 75 09/01/23 13:57 Respiratory Rate 16 09/01/23 13:57 Blood Pressure 124/78 09/01/23 1
== END 2023-09-01 17:24 | disposition home or self-care (01) ==
PROVIDERS: Emergency Provider Emergency Medicine
DX: R53.1 Weakness (principal); F03.90 Unspecified dementia, unspecified severity, without behavioral disturbance, psychotic disturbance, mood disturbance, and anxiety; E11.22 Type 2 diabetes mellitus with diabetic chronic kidney disease; N18.30 Chronic kidney disease, stage 3 unspecified; E03.9 Hypothyroidism, unspecified; F32.A Depression, unspecified; Z87.891 Personal history of nicotine dependence; Z98.42 Cataract extraction status, left eye; Z98.41 Cataract extraction status, right eye; Z90.49 Acquired absence of other specified parts of digestive tract; Z79.82 Long term (current) use of aspirin; Z79.84 Long term (current) use of oral hypoglycemic drugs; Z79.899 Other long term (current) drug therapy
CPT/HCPCS: 36415; 70450; 80053; 81003; 85025; 96360; 99284; J7030

== ENCOUNTER 2023-09-27 16:56 | Emergency (ER) | payer MEDICARE, SELFPAY ==
--- NOTE | ~2023-09-27 | XR_ITS ---
EXAMINATION: XR wrist RT min 3V DATE: 09/27/2023 17:34 INDICATION: Right wrist pain and swelling. TECHNIQUE: 4 views of right wrist were obtained. COMPARISON: Right wrist radiographs 03/31/2021 FINDINGS: Bone alignment is normal. There is a bone fragment dorsal to the carpus. There is advanced osteoarthritis of distal radioulnar joint. 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 Th ere is an old healed fracture of diaphysis of fifth metacarpal. There is severe osteoarthritis of fir st carpometacarpal joint. There is severe osteoarthritis of the third metacarpophalangeal joint and m ild osteoarthritis of fourth and fifth metacarpophalangeal joints. There are dystrophic calcification s about the wrist. IMPRESSION: 1. Bone fragment dorsal to the carpus, which may be a loose body or avulsion fracture of dorsal pole of triquetrum. 2. Polyarticular osteoarthritis. Reviewed, dictated and finalized at location E. IMPRESSION: 1. Bone fragment dorsal to the carpus, which may be a loose body or avulsion fr acture of dorsal pole of triquetrum. 2. Polyarticular osteoarthritis.
[2023-09-27 17:12] VITALS: BP 101/62; PULSE 81; RESP 16; TEMP 36.6; O2SAT 100
--- NOTE | 2023-09-27 23:39 | ED.EXTPRO ---
HPI - Extremity Problem General Chief complaint: Extremity Problem,Nontraumatic Stated complaint: R wrist swelling Time Seen by Provider: 09/27/23 23:32 History of Present Illness HPI Narrative: Patient is an 88-year-old male who presents to the emergency department this afternoon complaining of right wrist pain. Family members were concerned that they may have noticed a bump along the medial ulnar aspect of the right hand. No bowel or abscess or cyst is noted on my examination. Family member states that patient was trying to eat earlier today and he is right-handed and was complaining of some wrist pain. Denies any recent falls or trauma. No additional injuries or concerns at this time. Related Data Home Medications Medication Instructions Recorded Confirmed glipizide 5 mg tablet 5 mg PO BID 10/04/19 03/21/22 levothyroxine 75 mcg tablet 75 mcg PO DAILY 10/04/19 03/21/22 loratadine 10 mg tablet 10 mg PO DAILY 10/04/19 03/21/22 memantine 5 mg tablet 5 mg PO BID 10/04/19 03/21/22 aspirin 81 mg tablet,delayed 81 mg PO DAILY 11/01/19 03/21/22 release (Adult Low Dose Aspirin) Allergies Allergy/AdvReac Type Severity Reaction Status Date / Time ibuprofen Allergy Rash Verified 08/27/23 21:37 Sulfa (Sulfonamide Allergy Rash Verified 08/27/23 21:37 Antibiotics) Review of Systems Review of Systems: All systems are reviewed and are negative unless stated otherwise in the HPI. [facility] Past Medical History Medical History Chronic kidney disease, stage 3 Baseline creatinine between 1.2 and 1.30. GFR is typically in the high 40s or lower 50s. Dementia Depression Hypothyroidism Type 2 diabetes mellitus Surgical History Surgical History History of bilateral cataract extraction History of foot surgery Debridement of diabetic foot ulcer. Hx laparoscopic cholecystectomy 07/10/21 Family History Family History Other Unknown family medical history Social History Social History Social History: Healthcare power of janitor helper: Cassie Granados, daughter. Code status: Full code. Smoking status: Never smoker Smokeless tobacco user: chewing tobacco Additional smoking assessment comments: Quit chewing tobacco in December 2020. Alcohol intake: never Substance use: never Substance use type: does not use Living arrangements: with family Additional living arrangements comments: Lives with his daughter Cassie in [place]. 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 Gender identity (if verbalized by the patient): Male Sexual Orientation (if Verbalized by the Patient): Straight or Heterosexual Spiritual care concerns: Yes Exam Narrative: General: Alert, awake, afebrile, in no acute distress. HEENT: PERRL, no rhinorrhea, no post nasal drip, oropharynx clear. Cardiovascular: Regular rate and rhythm, no murmurs, rubs or gallops, no peripheral edema. Respiratory: Clear to auscultation bilaterally, no tachypnea, no wheezing, no rhonchi, no rubs, no respiratory distress. Abdomen: Soft, nontender, nondistended, no rebound, no guarding, no peritoneal signs. Musculoskeletal: No joint swelling or deformity, normal muscle tone, no tenderness to palpation along the wrist joint, intact range of motion. Skin: No rashes or petechia, no signs of infection. Neurological: Alert and oriented to person, place, and time. Follows all commands. No focal deficits, speech is clear and fluent. Course Vital Signs Vital signs: Vital Signs Temperature 97.8 F 09/27/23 17:12 Pulse Rate 81 09/27/23 17:12 Respiratory Rate 16 09/27/23 17:12 Blood Pressure 101/62 09/27/23 17:12 Pulse Oximetry 100 09/27/23 17:12 Temperature 97.8 F
[2023-09-27] MEDS: ACETAMINOPHEN 325 MG TABLET 650 MG PO (23:44)
[2023-09-27 23:56] VITALS: BP 132/88; PULSE 58; RESP 15; O2SAT 97
== END 2023-09-28 00:15 | disposition home or self-care (01) ==
PROVIDERS: Emergency Provider Emergency Medicine
DX: M19.90 Unspecified osteoarthritis, unspecified site (principal); N18.30 Chronic kidney disease, stage 3 unspecified; F03.90 Unspecified dementia, unspecified severity, without behavioral disturbance, psychotic disturbance, mood disturbance, and anxiety; F32.A Depression, unspecified; E03.9 Hypothyroidism, unspecified; E11.9 Type 2 diabetes mellitus without complications
CPT/HCPCS: 73110; 99283; A9270

== ENCOUNTER 2024-01-22 15:55 | Emergency (ER) | payer MEDICARE, SELFPAY ==
--- NOTE | ~2024-01-22 | XR_ITS ---
XR elbow RT min 3V DATE: 01/22/2024 16:27 INDICATION: Fall, swelling, limited range of motion TECHNIQUE: 4 views COMPARISON: None FINDINGS: There is an up to 1.4 cm proximally displaced intra-articular fracture of the olecranon pro cess of the proximal ulna. No other fracture or dislocation is evident. IMPRESSION: Proximally distracted intra-articular fracture of olecranon process Reviewed, dictated and finalized at location A.
--- NOTE | 2024-01-22 16:06 | ED_ITS ---
HPI - Fall General Chief Complaint: Fall Stated Complaint: fall Time Seen by Provider: 01/22/24 16:05 Source: patient Mode of arrival: ambulatory Limitations: no limitations History of Present Illness HPI Narrative: 88 YEARS OLD WHITE MALE, CAME FROM HOME WITH HIS DAUGHTER/ CAREGIVER BECAUSE OF A FALL GROUND LEVEL FALL LANDED ON THE RIGHT ELBOW. HE DENIES ANY OTHER INJURIES. PATIENT WAS ABOUT TO GO TO THE BATHROOM WAS IN HURRY, HIS DAUGHTER WAS TAKING A SHOWER, PATIENT WAS NOT ABLE TO WEIGHT GOT UP TO WALK AND LANDED ON THE RIGHT ELBOW. complaint: fall Related Data Home Medications Medication Instructions Recorded Confirmed glipizide 5 mg tablet 5 mg PO BID 10/04/19 03/21/22 levothyroxine 75 mcg tablet 75 mcg PO DAILY 10/04/19 03/21/22 loratadine 10 mg tablet 10 mg PO DAILY 10/04/19 03/21/22 memantine 5 mg tablet 5 mg PO BID 10/04/19 03/21/22 aspirin 81 mg tablet,delayed 81 mg PO DAILY 11/01/19 03/21/22 release (Adult Low Dose Aspirin) Allergies Allergy/AdvReac Type Severity Reaction Status Date / Time ibuprofen Allergy Rash Verified 01/22/24 15:58 Sulfa (Sulfonamide Allergy Rash Verified 01/22/24 15:58 Antibiotics) Review of Systems Review of Systems: All systems reviewed & are unremarkable except as noted in HPI and below PMFSH Past Medical History Medical History Chronic kidney disease, stage 3 Baseline creatinine between 1.2 and 1.30. GFR is typically in the high 40s or lower 50s. Dementia Depression Hypothyroidism Type 2 diabetes mellitus Surgical History Surgical History History of bilateral cataract extraction History of foot surgery Debridement of diabetic foot ulcer. Hx laparoscopic cholecystectomy 07/10/21 Family History Family History Other Unknown family medical history Social History Social History Social History: Healthcare power of district attorney: Cassie Granados, daughter. Code status: Full code. Smoking status: Never smoker Smokeless tobacco user: chewing tobacco Additional smoking assessment comments: Quit chewing tobacco in December 2020. Alcohol intake: never Substance use: never Substance use type: does not use Living arrangements: with family Additional living arrangements comments: Lives with his daughter Cassie in [place]. 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 Gender identity (if verbalized by the patient): Male Sexual Orientation (if Verbalized by the Patient): Straight or Heterosexual Spiritual care concerns: Yes Exam Narrative: GENERAL APPEARANCE: WELL-DEVELOPED, WELL-NOURISHED SEVERE HEARING IMPAIRMENT SKIN: NORMAL COLOR HEAD: NORMOCEPHALIC, NONTRAUMATIC EYES: CLEAR CONJUNCTIVA NECK: SUPPLE, NONTENDER CHEST AND RESPIRATORY: AIRWAY PATENT, NO RESPIRATORY DISTRESS, NO ACCESSORY MUSCLE USE HEART: REGULAR RATE/RHYTHM ABDOMEN: SOFT, NONTENDER, NO ORGANOMEGALY, QUIET BOWEL SOUNDS VASCULAR: NORMAL PERIPHERAL PULSES, NORMAL CAPILLARY REFILL. MUSCULOSKELETAL: RIGHT ELBOW SHOWED BRUISES AND SWELLING POSTERIORLY, SLIGHT LIMITED RANGE OF MOTION NEUROLOGIC: ALERT AND ORIENTED ?3, ECOLOGICAL RISK ASSESSOR IS NORMAL TESTED, NO GROSS MOTOR DEFICIT Course Vital Signs Vital signs: Vital Signs Pulse Rate 73 01/22/24 16:08 Respiratory Rate 16 01/22/24 16:08 Blood Pressure 146/74 H 01/22/24 16:08 Pulse Oximetry 99 01/22/24 16:08 Pulse Rate 73 01/22/24 16:08 Respiratory Rate 16 01/22/24 16:08 Blood Pressure 146/74 H 01/22/24 16:08 Pulse Oximetry 99 01/22/24 16:08 MDM - Fall MDM Narrative Medical decision making narrative: PATIENT HAD GROUND LEVEL FALL AT HOME COMPLAINING OF RIGHT ELBOW PAIN VITAL SIGNS ARE STABLE PHYSICAL EXAMINATION SHOWED SWELLING AND TENDERNESS RIGHT ELBOW POSTERIORLY DIFFERENTIAL DIAGNOSIS INCLUDE CONTUSION, HEMATOMA, FRACTURE X-RAY SHOWED RIGHT OLECRANON FRACTURE PATIENT'S DAUGHTER WHO HAVE THE POWER OF IMAGER DECLINED HOSPITALIZATION FOR REHAB OR RESIDENTIAL PLACEMENT. SHE STARTED CRYING, SAYING THAT SHE WOULD NEVER PUT HIM IN A RESIDENTIAL. SLING ORDERED, FOLLOW-UP WITH ORTHO. Differential Diagnosis Differential diagnosis: Likely other ( ABOVE) Imaging Data Radiologist's impression: Impressions Elbow X-Ray 01/22/24 16:28 IMPRESSION: Proximally distracted intra-articular fracture of olecranon process Critical Care Time Critical Care Time Critical Care Time: No Discharge Plan Discharge Clinical Impression: Closed fracture of right elbow Patient Disposition: Home, Self-Care Condition: Stable Instructions: Elbow Fracture (ED) Additional Instructions: RETURN IF SYMPTOMS ARE WORSENING , CALL YOUR FAMILY PHYSICIAN /ORTHOPEDIC FOR APPOINTMENT, TAKE TYLENOL NEEDED FOR ACHES AND PAIN, CONTINUE HOME ME DICATIONS. Prescriptions: No Action levothyroxine 75 mcg tablet 75 mcg PO DAILY glipizide 5 mg tablet 5 mg PO BID memantine 5 mg tablet 5 mg PO BID loratadine 10 mg tablet 10 mg PO DAILY aspirin [Adult Low Dose Aspirin] 81 mg Tablet,Delayed Release (Dr/Ec) 81 mg PO DAILY cephalexin 500 mg capsule 500 mg PO Q8H 7 Days Qty: 21 0RF nitrofurantoin monohyd/m-cryst [Macrobid] 100 mg capsule 100 mg PO Q12H 5 Days Qty: 10 0RF Rx Instructions: must administer with a meal/food Follow-up/Referrals: PHYSICIAN NOT ON STAFF,NONSTAFF [Primary Care Provider] - Lico cOonnell MD [Physician] - 01/24/24
[2024-01-22 16:08] VITALS: BP 146/74; PULSE 73; RESP 16; O2SAT 99
[2024-01-22 17:45] VITALS: BP 112/66; PULSE 77; RESP 14; O2SAT 97
== END 2024-01-22 18:31 | disposition home or self-care (01) ==
PROVIDERS: Emergency Provider Emergency Medicine
DX: S52.031A Displaced fracture of olecranon process with intraarticular extension of right ulna, initial encounter for closed fracture (principal); E11.22 Type 2 diabetes mellitus with diabetic chronic kidney disease; N18.2 Chronic kidney disease, stage 2 (mild); W19.XXXA Unspecified fall, initial encounter
CPT/HCPCS: 73080; 99284; A4565

== ENCOUNTER 2024-02-13 16:45 | Emergency (ER) | payer MEDICARE, SELFPAY ==
--- NOTE | ~2024-02-13 | XR_ITS ---
XR chest 1V portable DATE: 02/13/2024 19:43 INDICATION: Altered mental state TECHNIQUE: Portable AP chest on 02/13/2024 COMPARISON: 02/23/2023 AP and lateral chest FINDINGS: Heart size is within normal range. No hilar or mediastinal enlargement. There is minimal infiltrate or atelectasis in the mid and lower lung zones, greater on the left. There is mild elevation of the right diaphragm. No pleural effusion or pulmonary vascular congestion or pneumothorax. Surgical clips, right upper quadrant, consistent with cholecystectomy. Osteopenia. There is bilateral rotator cuff atrophy. There is osteoarthritic change of the right glenohumeral kosta nt. Degenerative spurring of the thoracic spine. IMPRESSION: Mild infiltrate or atelectasis in the mid and lower lung zones, greater on the left Reviewed, dictated and finalized at location A. SPLITTER IMPRESSION: Mild infiltrate or atelectasis in the mid and lower lung zones, gre ater on the left
--- NOTE | ~2024-02-13 | CT_ITS ---
EXAMINATION: CT brain wo con DATE: 02/13/2024 20:43 INDICATION: Altered mental state TECHNIQUE: Computed tomography (CT) of the head was performed without intravenous contrast. The mA wa s adjusted according to patient size. Iterative reconstruction technique was employed. Exam dose: 68 1.00 mGy-cm total exam DLP. COMPARISON: 09/01/2023 CT brain FINDINGS: Bilateral vertebral artery and carotid siphon internal carotid artery calcifications. There is nonspecific diminished attenuation the cerebral white matter, likely due to chronic small ve ssel ischemic changes. No intracranial mass lesion or hemorrhage, midline shift or mass effect is noted. There is central and cortical cerebral atrophy. There are prominent temporal horns the lateral ventri cles. No subdural or epidural hematoma is detected. No fracture or bone destruction of the cranial vault. The mastoid air cells and included paranasal sinuses are unremarkable. IMPRESSION: Central and cortical cerebral atrophy Reviewed, dictated and finalized at Location A. Reviewed, dictated and finalized at location A. 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
[2024-02-13 16:48] VITALS: BP 117/86; PULSE 87; RESP 14; TEMP 36.6; O2SAT 98
--- NOTE | 2024-02-13 17:55 | ECG_ITS ---
Test Date: 2024-02-13 18:09:43 Measurements Intervals [place] Rate: 74 P: 33 MS: 209 QRS: 31 QRSD: 142 T: 6 QT: 390 QTc: 435 Interpretive Statements SINUS RHYTHM WITH FIRST DEGREE AV BLOCK RIGHT BUNDLE BRANCH BLOCK BASELINE ARTIFACT- I, II, III, AVR, AVL, AVF, V1 ABNORMAL ECG Compared to ECG 08/27/2023 21:28:44 No significant changes Electronically Signed On 02-13-2024 18:48:04 DIRECTOR OF MARKETING ANALYTICS by Vinicius Buck D.O.
[2024-02-13 18:20] LABS: Basophils Absolute Auto 0.1 K/mm3 (0.0-0.1); Basophils Percent Auto 1.1 % (0.2-1.2); Eosinophils Absolute Auto 0.3 K/mm3 (0-0.3); Eosinophils Percent Auto 4.1 % (0-4.4); Hematocrit 36.8 % (42.0-52.0); Immature Granulocyte Absolute 0.03 K/mm3 (0.00-0.031); Immature Granulocyte Percent A 0.5 % (0-0.5); Lymphocytes Absolute Auto 1.27 K/mm3 (0.9-3.2); Lymphocytes Percent Auto 20.7 % (18.3-44.2); Mean Corpuscular HGB Conc 32.6 g/dl (32-36); Mean Corpuscular Hemoglobin 32.1 pg (26-34); Mean Corpuscular Volume 98.4 fl (80-100); Mean Platelet Volume 9.5 fl (7.4-10.4); Monocytes Absolute Auto 0.7 K/mm3 (0.1-0.6); Monocytes Percent Auto 11.2 % (2.6-8.5); Neutrophils Absolute Auto 3.8 K/mm3 (1.3-6.7); Neutrophils Percent Auto 62.4 % (45.5-73.1); Platelet Count Result 325 k/mm3 (150-375); Red Blood Count 3.74 M/mm3 (4.6-6.20); Red Cell Distribution Width 13.8 % (11.5-14.5); White Blood Count 6.1 K/mm3 (4.5-10.0)
[2024-02-13 18:28] LABS: Add Urine Microscopic? NO; Appearance Urine Clear (Clear); Bilirubin Urine Negative (Negative); Blood Urine Negative (Negative); Color Urine Yellow (Yellow); Glucose Urine UA Negative (Negative); Ketones Urine Negative (Negative); Leukocyte Esterase Ur Negative LEU/UL (Negative); Nitrate Urine Negative (Negative); Protein Urine Negative (Negative)
[2024-02-13 18:31] LABS: Alanine Aminotransferase 15 U/L (6-50); Albumin Level 3.8 g/dL (3.5-5.1); Alkaline Phosphatase 77 U/L (38-126); Anion Gap 7 mmol/L (4-12); Aspartate Amino Transferase 22 U/L (17-59); Bilirubin,Total 0.5 mg/dL (0.2-1.3); Blood Urea Nitrogen 16 mg/dL (9-20); Carbon Dioxide 28 mmol/L (22-30); Chloride 93 mmol/L (98-107); Estimated Glomerular Filt Rate > 60; Glucose 252 mg/dL (65-110); Potassium 4.5 mmol/L (3.4-5.0); Prothrombin Time 13.5 Seconds (11.1-14.7); Sodium 128 mmol/L (137-145)
[2024-02-13 18:32] LABS: Partial Thromboplastin Time 35.8 Seconds (22.3-36.8)
[2024-02-13 19:25] VITALS: BP 145/74; PULSE 72; RESP 18; O2SAT 100
--- NOTE | 2024-02-13 19:47 | ED_ITS ---
HPI - Altered Mental Status General Chief Complaint: Altered Mental Status Stated Complaint: UTI? Time Seen by Provider: 02/13/24 19:01 History of Present Illness HPI narrative: 88-year-old male with a past medical history significant for progressive dementia, chronic hyponatremia on a fluid restricted diet, diabetes, CKD, hypothyroidism. Patient presents to the emergency department accompanied by his and family members. They were concerned that he might have a urinary tract infection. Patient has been having some increased bouts of confusion over the last few weeks but in line with patient's dementia. Patient's primary doctor states that he has been having Advancing dementia and his family is aware of this. recent illnesses or injuries. The noted that patient is incontinent at baseline infrequently changes and he has been urinating himself more at night and they were concerned that this could be a urinary infection in nature. Patient himself is awake alert at his baseline mentation answering all my questions appropriately. He is hard of hearing. He is very pleasant and cooperative. States he has no acute complaints and denies any abdominal pain, burning with urination, fevers, chills, headache, vision changes. Related Data Home Medications Medication Instructions Recorded Confirmed glipizide 5 mg tablet 5 mg PO BID 10/04/19 02/01/24 levothyroxine 75 mcg tablet 75 mcg PO DAILY 10/04/19 02/01/24 loratadine 10 mg tablet 10 mg PO DAILY 10/04/19 02/01/24 memantine 5 mg tablet 5 mg PO BID 10/04/19 02/01/24 aspirin 81 mg tablet,delayed 81 mg PO DAILY 11/01/19 02/01/24 release (Adult Low Dose Aspirin) Allergies Allergy/AdvReac Type Severity Reaction Status Date / Time ibuprofen Allergy Rash Verified 02/01/24 15:04 Sulfa (Sulfonamide Allergy Rash Verified 02/01/24 15:04 Antibiotics) Review of Systems Review of Systems: As reviewed above in HPI [facility] Past Medical History Medical History Chronic kidney disease, stage 3 Baseline creatinine between 1.2 and 1.30. GFR is typically in the high 40s or lower 50s. Dementia Depression Hypothyroidism Type 2 diabetes mellitus Surgical History Surgical History History of bilateral cataract extraction History of foot surgery Debridement of diabetic foot ulcer. Hx laparoscopic cholecystectomy 07/10/21 Family History Family History Other Unknown family medical history Social History Social History Social History: Healthcare power of mergers and acquisitions attorney: Cassie Granados, daughter. Code status: Full code. Smoking status: Never smoker Smokeless tobacco user: chewing tobacco Additional smoking assessment comments: Quit chewing tobacco in December 2020. Alcohol intake: never Substance use: never Substance use type: does not use Do You Feel Safe in your Home?: Yes Lack of Transportation: No Lack of Food: Never True Current Housing: I Have Housing Concerned About Future Housing: No Difficulty Paying Gas/Electric Bills: No Difficulty Paying for Meds: No Currently Unemployed: No Education: High School Diploma/GED Difficulty w/ Childcare or Family Care: No Living arrangements: with family Additional living arrangements comments: Lives with his daughter Cassie in [place]. 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 Gender identity (if verbalized by the patient): Male Sexual Orientation (if Verbalized by the Patient): Straight or Heterosexual Spiritual care concerns: Yes Exam Narrative: GENERAL: [Well-appearing, well-nourished, and in no acute distress.] HEAD: [Normocephalic, atraumatic.] EYES: [PERRLA and EOMI.] ENT: Nares clear, no rhinorrhea or epistaxis. Mucous membranes moist. NECK: Supple. CHEST: [Clear to auscultation. No respiratory distress.] HEART: [Regular rate and rhythm]. No murmur heard. [Normal peripheral pulses.] ABDOMEN: [Soft, nondistended], [nontender], [No rigidity or guarding] EXTREMITIES: Normal range of motion. [No edema.] SKIN: Warm, dry, no rash. NEURO: [No focal deficits]. Alert and oriented [x2, at his baseline mentation.] PSYCH: [Normal mood and affect.] Course Vital Signs Vital signs: Vital Signs Temperature 36.6 C 02/13/24 16:48 Pulse Rate 87 02/13/24 16:48 Respiratory Rate 14 02/13/24 16:48 Blood Pressure 117/86 02/13/24 16:48 Pulse Oximetry 98 02/13/24 16:48 Oxygen Delivery Room Air 02/13/24 16:48 Temperature 36.6 C 02/13/24 16:48 Pulse Rate 73 02/13/24 21:27 Respiratory Rate 18 02/13/24 21:27 Blood Pressure 115/105 H 02/13/24 21:27 Pulse Oximetry 100 02/13/24 21:27 Oxygen Delivery Room Air 02/13/24 18:23 MDM - Altered Mental Status MDM Narrative Medical decision making narrative: 88-year-old male presenting to the emergency department accompanied by his family members and . They were concerned he might be having urinary tract infection. Patient has been having advanced dementia over the past few weeks and his doctor is aware of this. is aware of the prognosis of his dementia. He resides at home. They states that he has been having some epi sodes of intermittent increased confusion but returns back to his baseline intermittently. No fevers or chills. He has been urinating himself more night but is incontinent at baseline. Patient self has no acute complaints otherwise appears well. His vital signs there were very reassuring without any blood pressure concerns, tachycardia, fever, hypoxia. He has a soft nontender nondistended abdomen otherwise appears well. He appears hydrated is not any acute distress. Urinary tract infection signs differential as well as progression of his normal baseline dementia, less likely intracranial process such as stroke or hemorrhage. Hypoglycemia or other electrolyte problems or possible specially with his chronic hyponatremia. Will assess with laboratory studies as well as CT scan of his head, code flu RSV swab, chest x-ray, urinalysis. laboratory studies showed no leukocytosis or significant anemia. Platelets within normal limit. Coag studies within normal limits. Electrolytes show chronic hyponatremia 128 but stable from previous levels and likely not contributing to any acute symptoms. urinalysis without any signs of acute infection, no leukocytes, nitrites, blood or white cells. Chest x-ray was independently reviewed by myself and also interpreted by radiology. There are some infiltrates versus atelectasis in the mid and lower lung zones especially on the left side. Likely pneumonia. CT of the head shows no acute intracranial process and central and cortical cerebral atrophy consistent with his dementia. Patient was given a dose of Levaquin at this time will be sent home with a prescription for 5 days to combat his pneumonia findings. Family was made aware of this diagnosis and he is stable for discharge home at this time given his normal vital signs, normal oxygen status without any or supplemental oxygen, reassuring labs and workup otherwise. Medical Records Attestation: I reviewed the patient's medical records. Lab Data Attestation: I reviewed the patient's lab results. 02/13/24 18:13 02/13/24 18:14 Labs: Lab Results 02/13/24 02/13/24 02/13/24 Range/Units 18:13 18:14 18:21 WBC 6.1 (4.5-10.0) K/mm3 RBC 3.74 L (4.6-6.20) M/mm3 Hgb 12.0 L (14.0-18.0) g/dL Hct 36.8 L (42.0-52.0) % MCV 98.4 (80-100) fl MCH 32.1 (26-34) pg MCHC 32.6 (32-36) g/dl RDW 13.8 (11.5-14.5) % Plt Count 325 (150-375) k/mm3 MPV 9.5 (7.4-10.4) fl Immature Gran % (Auto) 0.5 (0-0.5) % Neut % (Auto) 62.4 (45.5-73.1) % Lymph % (Auto) 20.7 (18.3-44.2) % [place] % (Auto) 11.2 H (2.6-8.5) % Eos % (Auto) 4.1 (0-4.4) % Baso % (Auto) 1.1 (0.2-1.2) % Lymph # (Auto) 1.27 (0.9-3.2) K/mm3 [place] # (Auto) 0.7 H (0.1-0.6) K/mm3 Eos # (Auto) 0.3 (0-0.3) K/mm3 Baso # (Auto) 0.1 (0.0-0.1) K/mm3 Abs Immat Gran (auto) 0.03 (0.00-0.031) K/mm3 Absolute Neuts (auto) 3.8 (1.3-6.7) K/mm3 Absolute Nucleated RBC 0.000 (0.0-0.012) K/mm3 Nucleated RBC % 0.0 (0.0-0.2) % PT 13.5 (11.1-14.7) Seconds INR 1.0 APTT 35.8 (22.3-36.8) Seconds Sodium 128 L (137-145) mmol/L Potassium 4.5 (3.4-5.0) mmol/L Chloride 93 L (98-107) mmol/L Carbon Dioxide 28 (22-30) mmol/L Anion Gap 7 (4-12) mmol/L BUN 16 (9-20) mg/dL Creatinine 1.00 (0.7-1.3) mg/dL Estim Creat Clear Calc Not Reportable Estimated GFR > 60 (59 - ) Glucose 252 H (65-110) mg/dL Calcium 9.0 (8.4-10.2) mg/dL Total Bilirubin 0.5 (0.2-1.3) mg/dL AST 22 (17-59) U/L ALT 15 (6-50) U/L Alkaline Phosphatase 77 (38-126) U/L Total Protein 8.0 (6.3-8.2) g/dL Albumin 3.8 (3.5-5.1) g/dL Urine Color Yellow (Yellow) Urine Appearance Clear (Clear) Urine pH 7.0 (5.0-9.0) Ur Specific [place] 1.010 (1.001-1.035) Urine Protein Negative (Negative) mg/dL Urine Glucose (UA) Negative (Negative) mg/dL Urine Ketones Negative (Negative) mg/dL Ur Blood (Man) Negative (Negative) Urine Nitrate Negative (Negative) Urine Bilirubin Negative (Negative) Urine Urobilinogen 1.0 (<2.0) mg/dL Leukocyte Esterase Rfl Negative (Negative) BRENT/UL Influenza A (RT-PCR) (Negative) Influenza B (RT-PCR) (Negative) RSV (RT-PCR) (Negative) SARS-CoV-2 RNA (RT-PCR) (Negative) 02/13/24 Range/Units 19:29 WBC (4.5-10.0) K/mm3 RBC (4.6-6.20) M/mm3 Hgb (14.0-18.0) g/dL Hct (42.0-52.0) % MCV (80-100) fl MCH (26-34) pg MCHC (32-36) g/dl RDW (11.5-14.5) % Plt Count (150-375) k/mm3 MPV (7.4-10.4) fl Immature Gran % (Auto) (0-0.5) % Neut % (Auto) (45.5-73.1) % Lymph % (Auto) (18.3-44.2) % [place] % (Auto) (2.6-8.5) % Eos % (Auto) (0-4.4) % Baso % (Auto) (0.2-1.2) % Lymph # (Auto) (0.9-3.2) K/mm3 [place] # (Auto) (0.1-0.6) K/mm3 Eos # (Auto) (0-0.3) K/mm3 Baso # (Auto) (0.0-0.1) K/mm3 Abs Immat Gran (auto) (0.00-0.031) K/mm3 Absolute Neuts (auto) (1.3-6.7) K/mm3 Absolute Nucleated RBC (0.0-0.012) K/mm3 Nucleated RBC % (0.0-0.2) % PT (11.1-14.7) Seconds INR APTT (22.3-36.8) Seconds Sodium (137-145) mmol/L Potassium (3.4-5.0) mmol/L Chloride (98-107) mmol/L Carbon Dioxide (22-30) mmol/L Anion Gap (4-12) mmol/L BUN (9-20) mg/dL Creatinine (0.7-1.3) mg/dL Estim Creat Clear Calc Estimated GFR (59 - ) Glucose (65-110) mg/dL Calcium (8.4-10.2) mg/dL Total Bilirubin (0.2-1.3) mg/dL AST (17-59) U/L ALT (6-50) U/L Alkaline Phosphatase (38-126) U/L Total Protein (6.3-8.2) g/dL Albumin (3.5-5.1) g/dL Urine Color (Yellow) Urine Appearance (Clear) Urine pH (5.0-9.0) Ur Specific [place] (1.001-1.035) Urine Protein (Negative) mg/dL Urine Glucose (UA) (Negative) mg/dL Urine Ketones (Negative) mg/dL Ur Blood (Man) (Negative) Urine Nitrate (Negative) Urine Bilirubin (Negative) Urine Urobilinogen (<2.0) mg/dL Leukocyte Esterase Rfl (Negative) BRENT/UL Influenza A (RT-PCR) Negative (Negative) Influenza B (RT-PCR) Negative (Negative) RSV (RT-PCR) Negative (Negative) SARS-CoV-2 RNA (RT-PCR) Negative (Negative) Imaging Data Attestation: I personally reviewed and interpreted this imaging study as follows: My impression: left-sided infiltrates versus atelectasis, left worse than right, Radiologist's impression: Impressions Chest X-Ray 02/13/24 19:59 IMPRESSION: Mild infiltrate or atelectasis in the mid and lower lung zones, greater on the left Head CT 02/13/24 21:10 IMPRESSION: Central and cortical cerebral atrophy ECG Data EKG #1: Attestation: I personally reviewed and interpreted this ECG as follows: ECG completion date: 02/13/24 ECG completion time: 18:09 Prior ECG tracings: available for review Interpretation: sinus rhythm with first-degree AV block, right bundle-branch block without any significant changes from previous EKG. slightly leftward deviated axis but QTC interval normal 435, QRS appreciated at 142 consistent with right bundle-branch block. Discharge Plan Discharge Clinical Impression: Pneumonia, Dementia Patient Disposition: Home, Self-Care Condition: Stable Instructions: Antibiotic Form, Pneumonia (ED) Additional Instructions: your findings on your x-ray shows some left-sided pneumonia which we will treat with oral antibiotics for the next 5 days. Please follow-up with your primary care provider outpatient on a short-term basis. Feel free to return to the e mergency department if develop any new or worsening symptoms or any other concerns. Prescriptions: New levofloxacin 750 mg tablet 750 mg PO DAILY 5 Days Qty: 5 0RF No Action levothyroxine 75 mcg tablet 75 mcg PO DAILY glipizide 5 mg tablet 5 mg PO BID memantine 5 mg tablet 5 mg PO BID loratadine 10 mg tablet 10 mg PO DAILY aspirin [Adult Low Dose Aspirin] 81 mg Tablet,Delayed Release (Dr/Ec) 81 mg PO DAILY cephalexin 500 mg capsule 500 mg PO Q8H 7 Days Qty: 21 0RF nitrofurantoin monohyd/m-cryst [Macrobid] 100 mg capsule 100 mg PO Q12H 5 Days Qty: 10 0RF Rx Instructions: must administer with a meal/food Follow-up/Referrals: PHYSICIAN,RISK CONTROL REPRESENTATIVE [Non-Staff] - Time of Disposition: 22:16
[2024-02-13 20:10] LABS: Influenza A QL RT-PCR Negative (Negative); Influenza B QL RT-PCR Negative (Negative); RSV RNA, RT-PCR Negative (Negative); SARS-CoV-2 RNA PCR Negative (Negative)
[2024-02-13 21:27] VITALS: BP 115/105; PULSE 73; RESP 18; O2SAT 100
[2024-02-13] MEDS: levoFLOXacin 750 MG TABLET PO (22:07)
[2024-02-13 22:53] VITALS: BP 144/86; PULSE 72; RESP 18; O2SAT 98
== END 2024-02-13 22:54 | disposition home or self-care (01) ==
PROVIDERS: Family Medicine; Emergency Provider Student in an Organized Health Care Education/Training Program
DX: J18.9 Pneumonia, unspecified organism (principal); F03.90 Unspecified dementia, unspecified severity, without behavioral disturbance, psychotic disturbance, mood disturbance, and anxiety; Z20.822 Contact with and (suspected) exposure to COVID-19; E11.22 Type 2 diabetes mellitus with diabetic chronic kidney disease; N18.30 Chronic kidney disease, stage 3 unspecified; E03.9 Hypothyroidism, unspecified; E87.1 Hypo-osmolality and hyponatremia; Z87.891 Personal history of nicotine dependence; Z90.49 Acquired absence of other specified parts of digestive tract; Z98.42 Cataract extraction status, left eye; Z98.41 Cataract extraction status, right eye; Z79.82 Long term (current) use of aspirin; Z79.84 Long term (current) use of oral hypoglycemic drugs; Z79.899 Other long term (current) drug therapy; I44.0 Atrioventricular block, first degree; I45.10 Unspecified right bundle-branch block
CPT/HCPCS: 36415; 70450; 71045; 80053; 81003; 85025; 85610; 85730; 87637; 93005; 99284; A9270

== ENCOUNTER 2024-03-09 12:44 | Emergency (ER) | payer MEDICARE, SELFPAY ==
--- NOTE | ~2024-03-09 | XR_ITS ---
EXAMINATION: XR chest 1V portable DATE: 03/09/2024 17:33 INDICATION: Weakness. TECHNIQUE: A single frontal view of the chest was obtained. COMPARISON: Chest single view 02/13/2024, CT abdomen and pelvis 07/09/2021 FINDINGS: The lung volumes are normal. There is a diffuse heterogeneous interstitial pattern in the l ungs. No pleural effusion or pneumothorax. Skin folds overlie left chest. There is a suture anchor in right humeral head. IMPRESSION: 1. Diffuse interstitial pattern in the lungs, likely mild chronic interstitial lung disease. Reviewed, dictated and finalized at location [facility]. [facility] [employer] [facility]
[2024-03-09 12:49] VITALS: BP 123/76; PULSE 103; RESP 16; TEMP 36.4; O2SAT 100
[2024-03-09 14:56] VITALS: BP 140/72; PULSE 93; RESP 17; O2SAT 100
--- NOTE | 2024-03-09 15:02 | ED.GENADULT ---
HPI - General Adult General Chief complaint: Abdominal Pain Stated complaint: uri Time Seen by Provider: 03/09/24 14:37 History of Present Illness HPI narrative: Patient is an 88-year-old male with history of dementia, chronic hyponatremia, and CKD who presents ER with possible abdominal pain. Family reports this morning when he woke up he reported subjective post discovered for conduct the boards with 2 fixed. Later he said he had no chest discomfort but some abdominal discomfort. He reports no pain anywhere at this time. Family thinks he may have also been weak earlier and potentially slurring his speech. They report he perked up just before getting to her room. Patient recently had not had a bowel movement in 10 days and they gave him a stool softener in over last 2 days he is having significant passage of stool. Related Data Home Medications ?Medication ?Instructions ?Recorded ?Confirmed ?Last Taken ?Type glipizide 5 mg tablet 5 mg PO BID 10/04/19 03/06/24 03/20/22 History levothyroxine 75 mcg tablet 75 mcg PO DAILY 10/04/19 03/06/24 03/20/22 History loratadine 10 mg tablet 10 mg PO DAILY 10/04/19 03/06/24 03/20/22 History memantine 5 mg tablet 5 mg PO BID 10/04/19 03/06/24 03/20/22 History aspirin 81 mg tablet,delayed 81 mg PO DAILY 11/01/19 03/06/24 03/20/22 History release (Adult Low Dose Aspirin) Allergies Allergy/AdvReac Type Severity Reaction Status Date / Time ibuprofen Allergy Rash Verified 03/09/24 14:40 Sulfa (Sulfonamide Allergy Rash Verified 03/09/24 14:40 Antibiotics) Review of Systems Review of Systems: ROS unobtainable: Yes unobtainable due to mental status PMFSH Past Medical History Medical History Chronic kidney disease, stage 3 Baseline creatinine between 1.2 and 1.30. GFR is typically in the high 40s or lower 50s. Type 2 diabetes mellitus Hypothyroidism Depression Dementia Surgical History Surgical History Hx laparoscopic cholecystectomy 07/10/21 History of foot surgery Debridement of diabetic foot ulcer. History of bilateral cataract extraction Family History Family History Other Unknown family medical history Social History Social History Social History: Healthcare power of attorney general: Cassie Granados, daughter. Code status: Full code. Smoking status: Never smoker Smokeless tobacco user: chewing tobacco Additional smoking assessment comments: Quit chewing tobacco in December 2020. Alcohol intake: never Substance use: never Substance use type: does not use Do You Feel Safe in your Home?: Yes Lack of Transportation: No Lack of Food: Never True Current Housing: I Have Housing Concerned About Future Housing: No Difficulty Paying Gas/Electric Bills: No Difficulty Paying for Meds: No Currently Unemployed: No Education: High School Diploma/GED Difficulty w/ Childcare or Family Care: No Living arrangements: with family Additional living arrangements comments: Lives with his daughter Cassie in [place]. 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 Gender identity (if verbalized by the patient): Male Sexual Orientation (if Verbalized by the Patient): Straight or Heterosexual Spiritual care concerns: Yes Exam Narrative: GENERAL: Well-appearing, well-nourished, and in no acute distress. HEAD: Normocephalic, atraumatic. ENT: Mucous membranes moist. NECK: Supple. CHEST: Clear to auscultation. No respiratory distress. HEART: Regular rate and rhythm. Normal peripheral pulses. ABDOMEN: Soft, nontender, nondistended. EXTREMITIES: Normal range of motion. No edema. Right upper extremity in a brace for non healed fracture in the elbow. SKIN: Warm, dry, no rash. NEURO: Alert and oriented x1. PSYCH: Normal mood and affect. Course Course Emergency Course: patient resting comfortably and without complaints. Cbc normal. CMP with sodium of 128 which is at his baseline. Troponin negative. Urinalysis without infection. No acute pneumonia. Patient felt appropriate for discharge home. Discussed with family who care for him. Vital Signs Vital signs: Vital Signs Temperature 97.6 F 03/09/24 12:49 Pulse Rate 103 H 03/09/24 12:49 Respiratory Rate 16 03/09/24 12:49 Blood Pressure 123/76 03/09/24 12:49 Pulse Oximetry 100 12/19/24 12:49 Temperature 97.6 F 03/09/24 12:49 Pulse Rate 91 03/09/24 16:38 Respiratory Rate 16 03/09/24 16:38 Blood Pressure 142/80 H 03/09/24 16:38 Pulse Oximetry 100 03/09/24 16:38 Medical Decision Making Vital Signs Vital Signs: Vital Signs Temperature 97.6 F 03/09/24 12:49 Pulse Rate 103 H 03/09/24 12:49 Respiratory Rate 16 03/09/24 12:49 Blood Pressure 123/76 03/09/24 12:49 Pulse Oximetry 100 03/09/24 12:49 Temperature 97.6 F 03/09/24 12:49 Pulse Rate 91 03/09/24 16:38 Respiratory Rate 16 03/09/24 16:38 Blood Pressure 142/80 H 03/09/24 16:38 Pulse Oximetry 100 03/09/24 16:38 Lab Data 03/09/24 15:07 03/09/24 15:07 Labs: Lab Results 03/09/24 03/09/24 03/09/24 Range/Units 15:07 15:07 15:07 WBC 10.0 (4.5-10.0) K/mm3 RBC 3.87 L (4.6-6.20) M/mm3 Hgb 12.2 L (14.0-18.0) g/dL Hct 37.1 L (42.0-52.0) % MCV 95.9 (80-100) fl MCH 31.5 (26-34) pg MCHC 32.9 (32-36) g/dl RDW 13.9 (11.5-14.5) % Plt Count 365 (150-375) k/mm3 MPV 10.0 (7.4-10.4) fl Immature Gran % (Auto) 0.5 (0-0.5) % Neut % (Auto) 79.8 H (45.5-73.1) % Lymph % (Auto) 10.4 L (18.3-44.2) % [place] % (Auto) 8.1 (2.6-8.5) % Eos % (Auto) 0.6 (0-4.4) % Baso % (Auto) 0.6 (0.2-1.2) % Lymph # (Auto) 1.04 (0.9-3.2) K/mm3 [place] # (Auto) 0.8 H (0.1-0.6) K/mm3 Eos # (Auto) 0.1 (0-0.3) K/mm3 Baso # (Auto) 0.1 (0.0-0.1) K/mm3 Abs Immat Gran (auto) 0.05 H (0.00-0.031) K/mm3 Absolute Neuts (auto) 8.0 H (1.3-6.7) K/mm3 Absolute Nucleated RBC 0.000 (0.0-0.012) K/mm3 Nucleated RBC % 0.0 (0.0-0.2) % Sodium Cancelled 128 L Potassium Cancelled 4.4 Chloride Cancelled Carbon Dioxide Anion Gap BUN Creatinine Estim Creat Clear Calc Estimated GFR Glucose Calcium Total Bilirubin AST ALT Alkaline Phosphatase Troponin I (0.000-0.034) ng/mL Total Protein Albumin Lipase Urine Color (Yellow) Urine Appearance (Clear) Urine pH (5.0-9.0) Ur Specific [place] (1.001-1.035) Urine Protein (Negative) mg/dL Urine Glucose (UA) (Negative) mg/dL Urine Ketones (Negative) mg/dL Ur Blood (Man) (Negative) Urine Nitrate (Negative) Urine Bilirubin (Negative) Urine Urobilinogen (<2.0) mg/dL Leukocyte Esterase Rfl (Negative) BRENT/UL 03/09/24 03/09/24 03/09/24 Range/Units 15:07 15:07 15:07 WBC (4.5-10.0) K/mm3 RBC (4.6-6.20) M/mm3 Hgb (14.0-18.0) g/dL Hct (42.0-52.0) % MCV (80-100) fl MCH (26-34) pg MCHC (32-36) g/dl RDW (11.5-14.5) % Plt Count (150-375) k/mm3 MPV (7.4-10.4) fl Immature Gran % (Auto) (0-0.5) % Neut % (Auto) (45.5-73.1) % Lymph % (Auto) (18.3-44.2) % [place] % (Auto) (2.6-8.5) % Eos % (Auto) (0-4.4) % Baso % (Auto) (0.2-1.2) % Lymph # (Auto) (0.9-3.2) K/mm3 [place] # (Auto) (0.1-0.6) K/mm3 Eos # (Auto) (0-0.3) K/mm3 Baso # (Auto) (0.0-0.1) K/mm3 Abs Immat Gran (auto) (0.00-0.031) K/mm3 Absolute Neuts (auto) (1.3-6.7) K/mm3 Absolute Nucleated RBC (0.0-0.012) K/mm3 Nucleated RBC % (0.0-0.2) % Sodium Potassium Chloride 94 L Carbon Dioxide Cancelled 25 Anion Gap Cancelled 9 BUN Cancelled Creatinine Estim Creat Clear Calc Estimated GFR Glucose Calcium Total Bilirubin AST ALT Alkaline Phosphatase Troponin I (0.000-0.034) ng/mL Total Protein Albumin Lipase Urine Color (Yellow) Urine Appearance (Clear) Urine pH (5.0-9.0) Ur Specific [place] (1.001-1.035) Urine Protein (Negative) mg/dL Urine Glucose (UA) (Negative) mg/dL Urine Ketones (Negative) mg/dL Ur Blood (Man) (Negative) Urine Nitrate (Negative) Urine Bilirubin (Negative) Urine Urobilinogen (<2.0) mg/dL Leukocyte Esterase Rfl (Negative) BRENT/UL 03/09/24 03/09/24 03/09/24 Range/Units 15:07 15:07 15:07 WBC (4.5-10.0) K/mm3 RBC (4.6-6.20) M/mm3 Hgb (14.0-18.0) g/dL Hct (42.0-52.0) % MCV (80-100) fl MCH (26-34) pg MCHC (32-36) g/dl RDW (11.5-14.5) % Plt Count (150-375) k/mm3 MPV (7.4-10.4) fl Immature Gran % (Auto) (0-0.5) % Neut % (Auto) (45.5-73.1) % Lymph % (Auto) (18.3-44.2) % [place] % (Auto) (2.6-8.5) % Eos % (Auto) (0-4.4) % Baso % (Auto) (0.2-1.2) % Lymph # (Auto) (0.9-3.2) K/mm3 [place] # (Auto) (0.1-0.6) K/mm3 Eos # (Auto) (0-0.3) K/mm3 Baso # (Auto) (0.0-0.1) K/mm3 Abs Immat Gran (auto) (0.00-0.031) K/mm3 Absolute Neuts (auto) (1.3-6.7) K/mm3 Absolute Nucleated RBC (0.0-0.012) K/mm3 Nucleated RBC % (0.0-0.2) % Sodium Potassium Chloride Carbon Dioxide Anion Gap BUN 16 Creatinine Cancelled 1.00 Estim Creat Clear Calc Cancelled Not Reportable Estimated GFR Cancelled Glucose Calcium Total Bilirubin AST ALT Alkaline Phosphatase Troponin I (0.000-0.034) ng/mL Total Protein Albumin Lipase Urine Color (Yellow) Urine Appearance (Clear) Urine pH (5.0-9.0) Ur Specific [place] (1.001-1.035) Urine Protein (Negative) mg/dL Urine Glucose (UA) (Negative) mg/dL Urine Ketones (Negative) mg/dL Ur Blood (Man) (Negative) Urine Nitrate (Negative) Urine Bilirubin (Negative) Urine Urobilinogen (<2.0) mg/dL Leukocyte Esterase Rfl (Negative) BRENT/UL 03/09/24 03/09/24 03/09/24 Range/Units 15:07 15:07 15:07 WBC (4.5-10.0) K/mm3 RBC (4.6-6.20) M/mm3 Hgb (14.0-18.0) g/dL Hct (42.0-52.0) % MCV (80-100) fl MCH (26-34) pg MCHC (32-36) g/dl RDW (11.5-14.5) % Plt Count (150-375) k/mm3 MPV (7.4-10.4) fl Immature Gran % (Auto) (0-0.5) % Neut % (Auto) (45.5-73.1) % Lymph % (Auto) (18.3-44.2) % [place] % (Auto) (2.6-8.5) % Eos % (Auto) (0-4.4) % Baso % (Auto) (0.2-1.2) % Lymph # (Auto) (0.9-3.2) K/mm3 [place] # (Auto) (0.1-0.6) K/mm3 Eos # (Auto) (0-0.3) K/mm3 Baso # (Auto) (0.0-0.1) K/mm3 Abs Immat Gran (auto) (0.00-0.031) K/mm3 Absolute Neuts (auto) (1.3-6.7) K/mm3 Absolute Nucleated RBC (0.0-0.012) K/mm3 Nucleated RBC % (0.0-0.2) % Sodium Potassium Chloride Carbon Dioxide Anion Gap BUN Creatinine Estim Creat Clear Calc Estimated GFR > 60 Glucose Cancelled 169 H Calcium Cancelled 9.5 Total Bilirubin Cancelled AST ALT Alkaline Phosphatase Troponin I (0.000-0.034) ng/mL Total Protein Albumin Lipase Urine Color (Yellow) Urine Appearance (Clear) Urine pH (5.0-9.0) Ur Specific [place] (1.001-1.035) Urine Protein (Negative) mg/dL Urine Glucose (UA) (Negative) mg/dL Urine Ketones (Negative) mg/dL Ur Blood (Man) (Negative) Urine Nitrate (Negative) Urine Bilirubin (Negative) Urine Urobilinogen (<2.0) mg/dL Leukocyte Esterase Rfl (Negative) BRENT/UL 03/09/24 03/09/24 03/09/24 Range/Units 15:07 15:07 15:07 WBC (4.5-10.0) K/mm3 RBC (4.6-6.20) M/mm3 Hgb (14.0-18.0) g/dL Hct (42.0-52.0) % MCV (80-100) fl MCH (26-34) pg MCHC (32-36) g/dl RDW (11.5-14.5) % Plt Count (150-375) k/mm3 MPV (7.4-10.4) fl Immature Gran % (Auto) (0-0.5) % Neut % (Auto) (45.5-73.1) % Lymph % (Auto) (18.3-44.2) % [place] % (Auto) (2.6-8.5) % Eos % (Auto) (0-4.4) % Baso % (Auto) (0.2-1.2) % Lymph # (Auto) (0.9-3.2) K/mm3 [place] # (Auto) (0.1-0.6) K/mm3 Eos # (Auto) (0-0.3) K/mm3 Baso # (Auto) (0.0-0.1) K/mm3 Abs Immat Gran (auto) (0.00-0.031) K/mm3 Absolute Neuts (auto) (1.3-6.7) K/mm3 Absolute Nucleated RBC (0.0-0.012) K/mm3 Nucleated RBC % (0.0-0.2) % Sodium Potassium Chloride Carbon Dioxide Anion Gap BUN Creatinine Estim Creat Clear Calc Estimated GFR Glucose Calcium Total Bilirubin 0.7 AST Cancelled 23 ALT Cancelled 15 Alkaline Phosphatase Cancelled Troponin I (0.000-0.034) ng/mL Total Protein Albumin Lipase Urine Color (Yellow) Urine Appearance (Clear) Urine pH (5.0-9.0) Ur Specific [place] (1.001-1.035) Urine Protein (Negative) mg/dL Urine Glucose (UA) (Negative) mg/dL Urine Ketones (Negative) mg/dL Ur Blood (Man) (Negative) Urine Nitrate (Negative) Urine Bilirubin (Negative) Urine Urobilinogen (<2.0) mg/dL Leukocyte Esterase Rfl (Negative) BRENT/UL 03/09/24 03/09/24 03/09/24 Range/Units 15:07 15:07 15:07 WBC (4.5-10.0) K/mm3 RBC (4.6-6.20) M/mm3 Hgb (14.0-18.0) g/dL Hct (42.0-52.0) % MCV (80-100) fl MCH (26-34) pg MCHC (32-36) g/dl RDW (11.5-14.5) % Plt Count (150-375) k/mm3 MPV (7.4-10.4) fl Immature Gran % (Auto) (0-0.5) % Neut % (Auto) (45.5-73.1) % Lymph % (Auto) (18.3-44.2) % [place] % (Auto) (2.6-8.5) % Eos % (Auto) (0-4.4) % Baso % (Auto) (0.2-1.2) % Lymph # (Auto) (0.9-3.2) K/mm3 [place] # (Auto) (0.1-0.6) K/mm3 Eos # (Auto) (0-0.3) K/mm3 Baso # (Auto) (0.0-0.1) K/mm3 Abs Immat Gran (auto) (0.00-0.031) K/mm3 Absolute Neuts (auto) (1.3-6.7) K/mm3 Absolute Nucleated RBC (0.0-0.012) K/mm3 Nucleated RBC % (0.0-0.2) % Sodium Potassium Chloride Carbon Dioxide Anion Gap BUN Creatinine Estim Creat Clear Calc Estimated GFR Glucose Calcium Total Bilirubin AST ALT Alkaline Phosphatase 88 Troponin I < 0.012 (0.000-0.034) ng/mL Total Protein Cancelled 8.0 Albumin Cancelled 4.0 Lipase Cancelled Urine Color (Yellow) Urine Appearance (Clear) Urine pH (5.0-9.0) Ur Specific [place] (1.001-1.035) Urine Protein (Negative) mg/dL Urine Glucose (UA) (Negative) mg/dL Urine Ketones (Negative) mg/dL Ur Blood (Man) (Negative) Urine Nitrate (Negative) Urine Bilirubin (Negative) Urine Urobilinogen (<2.0) mg/dL Leukocyte Esterase Rfl (Negative) BRENT/UL 03/09/24 Range/Units 15:07 WBC (4.5-10.0) K/mm3 RBC (4.6-6.20) M/mm3 Hgb (14.0-18.0) g/dL Hct (42.0-52.0) % MCV (80-100) fl MCH (26-34) pg MCHC (32-36) g/dl RDW (11.5-14.5) % Plt Count (150-375) k/mm3 MPV (7.4-10.4) fl Immature Gran % (Auto) (0-0.5) % Neut % (Auto) (45.5-73.1) % Lymph % (Auto) (18.3-44.2) % [place] % (Auto) (2.6-8.5) % Eos % (Auto) (0-4.4) % Baso % (Auto) (0.2-1.2) % Lymph # (Auto) (0.9-3.2) K/mm3 [place] # (Auto) (0.1-0.6) K/mm3 Eos # (Auto) (0-0.3) K/mm3 Baso # (Auto) (0.0-0.1) K/mm3 Abs Immat Gran (auto) (0.00-0.031) K/mm3 Absolute Neuts (auto) (1.3-6.7) K/mm3 Absolute Nucleated RBC (0.0-0.012) K/mm3 Nucleated RBC % (0.0-0.2) % Sodium Potassium Chloride Carbon Dioxide Anion Gap BUN Creatinine Estim Creat Clear Calc Estimated GFR Glucose Calcium Total Bilirubin AST ALT Alkaline Phosphatase Troponin I (0.000-0.034) ng/mL Total Protein Albumin Lipase 11 L Urine Color Yellow (Yellow) Urine Appearance Clear (Clear) Urine pH 7.0 (5.0-9.0) Ur Specific [place] 1.009 (1.001-1.035) Urine Protein Negative (Negative) mg/dL Urine Glucose (UA) Negative (Negative) mg/dL Urine Ketones 1+ H (Negative) mg/dL Ur Blood (Man) Negative (Negative) Urine Nitrate Negative (Negative) Urine Bilirubin Negative (Negative) Urine Urobilinogen 0.2 (<2.0) mg/dL Leukocyte Esterase Rfl Negative (Negative) BRENT/UL Imaging Data Radiologist's impression: ITS Impressions Chest X-Ray 03/09/24 17:38 IMPRESSION: 1. Diffuse interstitial pattern in the lungs, likely mild chronic interstitial lung disease. Discharge Plan Discharge Clinical Impression: Weakness Patient Disposition: Home, Self-Care Condition: Stable Instructions: Antibiotic Form, Weakness (ED) Additional Instructions: Please return to the emergency department if you develop severe and persistent chest pain, difficulty breathing, dizziness, leg swelling or if you are coughing up blood as these can be signs of a medical emergency. Please call your doctor for a follow up appointment to determine the need for further testing. Patient Language: German Prescriptions: No Action levothyroxine 75 mcg tablet 75 mcg PO DAILY glipizide 5 mg tablet 5 mg PO BID memantine 5 mg tablet 5 mg PO BID loratadine 10 mg tablet 10 mg PO DAILY aspirin [Adult Low Dose Aspirin] 81 mg Tablet,Delayed Release (Dr/Ec) 81 mg PO DAILY levofloxacin 750 mg tablet 750 mg PO DAILY 5 Days Qty: 5 0RF cephalexin 500 mg capsule 500 mg PO Q8H 7 Days Qty: 21 0RF nitrofurantoin monohyd/m-cryst [Macrobid] 100 mg capsule 100 mg PO Q12H 5 Days Qty: 10 0RF Rx Instructions: must administer with a meal/food Follow-up/Referrals: UNKNOWN,DOCTOR [Primary Care Provider] - 1 Week
[2024-03-09 15:21] LABS: Basophils Absolute Auto 0.1 K/mm3 (0.0-0.1); Basophils Percent Auto 0.6 % (0.2-1.2); Eosinophils Absolute Auto 0.1 K/mm3 (0-0.3); Eosinophils Percent Auto 0.6 % (0-4.4); Hematocrit 37.1 % (42.0-52.0); Hemoglobin 12.2 g/dL (14.0-18.0); Immature Granulocyte Absolute 0.05 K/mm3 (0.00-0.031); Immature Granulocyte Percent A 0.5 % (0-0.5); Lymphocytes Absolute Auto 1.04 K/mm3 (0.9-3.2); Lymphocytes Percent Auto 10.4 % (18.3-44.2); Mean Corpuscular HGB Conc 32.9 g/dl (32-36); Mean Corpuscular Hemoglobin 31.5 pg (26-34); Mean Corpuscular Volume 95.9 fl (80-100); Monocytes Absolute Auto 0.8 K/mm3 (0.1-0.6); Monocytes Percent Auto 8.1 % (2.6-8.5); Neutrophils Percent Auto 79.8 % (45.5-73.1); Platelet Count Result 365 k/mm3 (150-375); Red Blood Count 3.87 M/mm3 (4.6-6.20); Red Cell Distribution Width 13.9 % (11.5-14.5)
[2024-03-09 15:23] LABS: Add Urine Microscopic? NO; Appearance Urine Clear (Clear); Bilirubin Urine Negative (Negative); Blood Urine Negative (Negative); Color Urine Yellow (Yellow); Glucose Urine UA Negative (Negative); Ketones Urine 1+ mg/dL (Negative); Leukocyte Esterase Ur Negative LEU/UL (Negative); Nitrate Urine Negative (Negative); Protein Urine Negative (Negative); Specific Grav Ur 1.009 (1.001-1.035); Urobilinogen Urine 0.2 mg/dL (<2.0)
[2024-03-09 15:29] LABS: Alanine Aminotransferase 15 U/L (6-50); Alkaline Phosphatase 88 U/L (38-126); Anion Gap 9 mmol/L (4-12); Aspartate Amino Transferase 23 U/L (17-59); Bilirubin,Total 0.7 mg/dL (0.2-1.3); Blood Urea Nitrogen 16 mg/dL (9-20); Calcium 9.5 mg/dL (8.4-10.2); Carbon Dioxide 25 mmol/L (22-30); Chloride 94 mmol/L (98-107); Estimated Glomerular Filt Rate > 60; Glucose 169 mg/dL (65-110); Lipase 11 U/L (23-300); Potassium 4.4 mmol/L (3.4-5.0); Sodium 128 mmol/L (137-145)
[2024-03-09 15:40] LABS: Troponin I < 0.012 ng/mL (0.000-0.034)
[2024-03-09 16:38] VITALS: BP 142/80; PULSE 91; RESP 16; O2SAT 100
[2024-03-09 18:27] VITALS: BP 147/78; PULSE 96; RESP 20; O2SAT 96
== END 2024-03-09 18:30 | disposition home or self-care (01) ==
PROVIDERS: Emergency Provider Emergency Medicine
DX: R53.1 Weakness (principal); N18.30 Chronic kidney disease, stage 3 unspecified; E11.9 Type 2 diabetes mellitus without complications; E03.9 Hypothyroidism, unspecified; F32.A Depression, unspecified; F03.90 Unspecified dementia, unspecified severity, without behavioral disturbance, psychotic disturbance, mood disturbance, and anxiety
CPT/HCPCS: 36415; 71045; 80053; 81003; 83690; 84484; 85025; 99284

== ENCOUNTER 2024-03-27 14:07 | Inpatient (IN) | payer MEDICARE, SELFPAY ==
[2024-03-27] VITALS (19 sets, daily range): BP systolic 67–152; BP diastolic 39–99; PULSE 98–134; RESP 10–22; TEMP 36.5; O2SAT 93–100; BMI 17.9
--- NOTE | ~2024-03-27 | CT_ITS ---
CT brain wo con Ordering provider: Rosalio Zhang MD History: 88 years Male with . AMS . Comparison: None. Technique: CT of the head without contrast. Radiation reduction technique utilized. The dose-length product was 681 mGy-cm. FINDINGS: BRAIN PARENCHYMA AND CSF SPACES: Mild leukoaraiosis and diffuse cortical atrophy. Mild atheromatous d isease. Tiny lacunar infarct in the left basal ganglia. No midline shift, mass effect or hemorrhage. The brain parenchyma and CSF spaces are otherwise normal. VISUALIZED PARANASAL SINUSES: Well aerated. MASTOIDS: Well aerated. BONES: The bones appear intact. SOFT TISSUES: Visualized nasopharynx is normal. Superficial soft tissues are normal. IMPRESSION: No acute intracranial findings. Reviewed, dictated and finalized at location A. LER GUIDE
--- NOTE | ~2024-03-27 | XR_ITS ---
EXAM: XR elbow RT min 3V DATE: 03/31/2024 16:44 HISTORY: elbow injury follow up . COMPARISON: 03/01/2024, images only; 01/22/2024. FINDINGS: Decreased mineralization. Redemonstration of the olecranon fracture with up to 2.1 cm dist raction and slight anterior rotation. No lytic or blastic lesion. Moderate degenerative change at the elbow joint. Medial and lateral epicondylar enthesopathy with chronic fragmentation noted medially. No erosion or periosteal change. Soft tissue swelling about the elbow. IMPRESSION: Osteopenia. Unchanged distracted olecranon fracture. Reviewed, dictated and finalized at location K. 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
--- NOTE | ~2024-03-27 | XR_ITS ---
EXAMINATION: XR chest 1V portable DATE: 03/27/2024 15:42 INDICATION: Altered mental status. TECHNIQUE: A single frontal view of the chest was obtained. COMPARISON: Chest view 03/09/2024 FINDINGS: The lung volumes are small. There are interstitial opacities in right lower lung zone and l eft mid and lower lung zones. No pleural effusion or pneumothorax. The heart size is normal. Surgical clips in the right upper quadrant are likely from cholecystectomy. IMPRESSION: 1. Stable interstitial opacities in right lower lung zone and left mid and lower lung zones, likely m ild chronic interstitial lung disease. Reviewed, dictated and finalized at location A. AL WORK PROFESSOR IMPRESSION: 1. Stable interstitial opacities in right lower lung zone and left mid and lowe r lung zones, likely mild chronic interstitial lung disease.
--- NOTE | ~2024-03-27 | CT_ITS ---
EXAMINATION: CTA chest PE protocol DATE: 03/27/2024 16:13 INDICATION: Hypotension. Altered mental status. TECHNIQUE: Computed tomography angiography (CTA) of the chest was performed with 100 mL Omnipaque-350 intravenous contrast timed to evaluate the pulmonary arteries. Coronal maximum intensity projection 3D-reconstructions were created by the technologist. Automated exposure control and iterative reconst ruction technique were employed. The dose-length product was 275.84 mGy-cm. COMPARISON: Chest single view 03/27/2024 FINDINGS: There is mild septal thickening in the lungs with a peripheral and lower lung predominance. There is mild atelectasis in lingula. There is mild dependent atelectasis bilaterally. There is mild bronchiectasis in paraspinal right lower lobe and in right middle lobe and lingula. There is a trace left pleural effusion. The heart size is normal. No pericardial effusion. There is no pulmonary embo mario. There are changes of cholecystectomy. There is cortical thinning of the kidneys. There is a scre w in right humeral head. There is thoracic kyphosis and severe spondylosis. There are bridging endpla te osteophytes at multiple levels in the spine, consistent with diffuse idiopathic skeletal hyperosto sis (DISH). IMPRESSION: 1. No pulmonary embolus. 2. Mild chronic interstitial lung disease. Reviewed, dictated and finalized at location A. 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
--- NOTE | 2024-03-27 14:46 | ECG_ITS ---
Test Date: 2024-03-27 14:40:44 Measurements Intervals Freedom Rate: 129 P: -53 VA: 158 QRS: 81 QRSD: 128 T: 28 QT: 311 QTc: 456 Interpretive Statements PROBABLE SINUS TACHYCARDIA RIGHT BUNDLE BRANCH BLOCK [120+ ms QRS DURATION, UPRIGHT V1, 40+ ms S IN I/aVL/V4/V5/V6] Compared to ECG 02/13/2024 18:09:43 TACHYCARDIA NOW PRESENT Electronically Signed On 03-29-2024 17:03:39 [employer]CTOR [employer] by Cara Smith M.D.
--- NOTE | 2024-03-27 14:51 | ED_ITS ---
HPI - Altered Mental Status General Chief Complaint: Altered Mental Status Stated Complaint: ALTERED MENTATION HX OF DEMENTIA Time Seen by Provider: 03/27/24 14:38 History of Present Illness HPI narrative: 88-year-old male with a past medical history of advanced dementia, chronic hyponatremia on a fluid-restricted diet, diabetes, CKD, hypothyroidism. Today presents via EMS for concerns of altered mental status and lethargy. Patient is noted to be profoundly hypotensive with a blood pressure of 67/39, tachycardic 134. He was brought back as a medical resuscitation into room 3 for evaluation and treatment. Patient himself is baseline alert oriented x2 and pleasant but today he is incoherent, not alert or oriented, not able to provide history or details. Family members are not present and not able to provide collateral information, EMS history is also limited. Patient of self does have a brace in his right elbow from recent olecranon fracture otherwise no new evidence of trauma or injury. Related Data Home Medications ?Medication ?Instructions ?Recorded ?Confirmed ?Last Taken ?Type glipizide 5 mg tablet 5 mg PO BID 10/04/19 03/06/24 03/20/22 History levothyroxine 75 mcg tablet 75 mcg PO DAILY 10/04/19 03/06/24 03/20/22 History loratadine 10 mg tablet 10 mg PO DAILY 10/04/19 03/06/24 03/20/22 History memantine 5 mg tablet 5 mg PO BID 10/04/19 03/06/24 03/20/22 History aspirin 81 mg tablet,delayed 81 mg PO DAILY 11/01/19 03/06/24 03/20/22 History release (Adult Low Dose Aspirin) Allergies Allergy/AdvReac Type Severity Reaction Status Date / Time ibuprofen Allergy Rash Verified 03/27/24 14:09 Sulfa (Sulfonamide Allergy Rash Verified 03/27/24 14:09 Antibiotics) Review of Systems 2 Review of Systems: ROS unobtainable: Yes unobtainable due to medical condition and unobtainable due to mental status PMFSH Past Medical History Medical History Chronic kidney disease, stage 3 Baseline creatinine between 1.2 and 1.30. GFR is typically in the high 40s or lower 50s. Type 2 diabetes mellitus Hypothyroidism Depression Dementia Surgical History Surgical History Hx laparoscopic cholecystectomy 07/10/21 History of foot surgery Debridement of diabetic foot ulcer. 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 Code status: Full code. Smoking status: Never smoker Smokeless tobacco user: chewing tobacco Additional smoking assessment comments: Quit chewing tobacco in December 2020. Alcohol intake: never Substance use: never Substance use type: does not use Do You Feel Safe in your Home?: Yes Lack of Transportation: No Lack of Food: Never True Current Housing: I Have Housing Concerned About Future Housing: No Difficulty Paying Gas/Electric Bills: No Difficulty Paying for Meds: No Currently Unemployed: No Education: High School Diploma/GED Difficulty w/ Childcare or Family Care: No Living arrangements: with family Additional living arrangements comments: Lives with his daughter Cassie in [place]. Occupation/Education: retired Additional occupation/education comments: [employer]. Gender identity (if verbalized by the patient): Male Sexual Orientation (if Verbalized by the Patient): Straight or Heterosexual Spiritual care concerns: Yes Exam 2 Narrative: GENERAL: Ill-appearing, not in any acute distress, not alert or oriented HEAD: [Normocephalic, atraumatic.] EYES: Right pupil somewhat asymmetric with a teardrop shape otherwise reactive to light bilaterally. Unknown chronicity ENT: Nares clear, no rhinorrhea or epistaxis. Mucous membranes moist. NECK: Supple. CHEST: Coarse breath sounds, no tachypnea or respiratory distress HEART: Tachycardic rate with regular rhythm. No murmur heard. [Normal peripheral pulses.] ABDOMEN: [Soft, nondistended], [nontender], [No rigidity or guarding] EXTREMITIES: Normal range of motion. [No edema.] SKIN: Warm, dry, no rash. NEURO: Seems to be moving all extremities, no obvious overt focal deficits but patient is incoherent, alert times 0 and not at his baseline mentation. PSYCH: Cooperative Course Vital Signs Vital signs: Vital Signs Temperature 36.5 C 03/27/24 14:25 Pulse Rate 134 H 03/27/24 14:25 Respiratory Rate 14 03/27/24 14:25 Blood Pressure 67/39 L 03/27/24 14:25 Pulse Oximetry 98 03/27/24 14:25 Oxygen Delivery Room Air 03/27/24 14:25 Temperature 36.5 C 03/27/24 14:25 Pulse Rate 100 03/27/24 20:48 Respiratory Rate 19 03/27/24 20:48 Blood Pressure 152/86 H 03/27/24 20:48 Pulse Oximetry 98 03/27/24 20:48 Oxygen Delivery Room Air 03/27/24 15:20 MDM - Altered Mental Status MDM Narrative Medical decision making narrative: 88-year-old male with a past medical history of advanced dementia, chronic hyponatremia, CKD, hypothyroidism, diabetes. Patient presents via EMS from home for concerns of mental status changes and lethargy. Unclear when he started developing his symptoms, collateral formation unable to be obtained at this time as family is not present and report to EMS was limited. Patient himself is hypotensive and profoundly tachycardic, afebrile and saturating well on room air. He is chronically ill-appearing and not at his baseline mentation presently. Patient is altered and shows signs of potential sepsis with his vital signs. Profound volume depletion and dehydration also possible in addition to potential trauma. His recent olecranon fracture does raise some at a higher chance of potential thromboembolic event such as a massive pulmonary embolism that could cause is vitals disability as well. ACS also in the differential. A broad workup was ordered and we will be covering him with antibiotics in the septic bundle until further delineation of his shock state. He was given a 30 cc/kg bolus resuscitative LR does, started on vancomycin, cefepime, blood cultures chest x-ray, CT of the head and CT angiography of the chest was ordered in addition to CBC, CMP, coags, COVID fluid RSV swabs, urinalysis with straight catheterization. Will obtain baseline studies and re- evaluate his response to fluids and treatments. He does have a history of hypothyroidism and might have some component of adrenal insufficiency which will re-evaluate and see if he needs any kind of levothyroxine or hydrocortisone. Patient's workup revealed a significant leukocytosis of 31.3, anemia of 13.4 in line with his baseline. Normal platelets. Coagulation studies within normal limits. Chemistry panel shows normal renal function, electrolytes show a sodium 127 chloride 93, in line with his chronic hyponatremia without any acute concerning decreased. Normal glucose 162, negative lactic acid 2.0, normal CMP. CRP elevated 4.3, troponin negative at 0.023. TSH within normal limits at 3.03. Urinalysis with florid urinary tract infection and likely the source of his sepsis. Urine drug screen negative. Salicylates, Tylenol, ethanol level negative. COVID flu RSV swab negative. CT head shows no acute intracranial findings. CT angiography shows no pulmonary embolism, chronic mild interstitial lung disease. Chest x-ray on my interpretation shows some interstitial opacities however more likely be interstitial lung disease based on the CT rather than infiltrates. Patient was re-evaluated multiple times and had clinical improvement after fluid boluses. His heart rate had normalized was no longer tachycardic and pressure improved from 60 systolic to 152 systolic. Patient has improved from a mental status standpoint is much more awake and interactive. His family bedside was spoken to several times and agree that he looks markedly improved with interventions conducted here. Patient will be admitted to the hospital for further evaluation and treatment. Given his severe sepsis he will go to the step-down unit. Patient and family comfortable this plan of care. I spoke to the hospitalist currently being covered by the midlevel provider who agreed after we went over patient's clinical assessment, laboratory studies and plan of care for IMU admission. Differential Diagnosis Differential diagnosis: Likely altered mental status, delirium, dementia, hypoglycemia, hyponatremia, subarachnoid hemorrhage, sepsis and other Medical Records Attestation: I reviewed the patient's medical records. Lab Data Attestation: I reviewed the patient's lab results. 03/27/24 15:09 03/27/24 15:09 Labs: Lab Results 03/27/24 03/27/24 03/27/24 Range/Units 14:58 15:09 15:31 WBC 31.3 H (4.5-10.0) K/mm3 RBC 4.23 L (4.6-6.20) M/mm3 Hgb 13.4 L (14.0-18.0) g/dL Hct 39.1 L (42.0-52.0) % MCV 92.4 (80-100) fl MCH 31.7 (26-34) pg MCHC 34.3 (32-36) g/dl RDW 14.3 (11.5-14.5) % Plt Count 369 (150-375) k/mm3 MPV 9.4 (7.4-10.4) fl Immature Gran % (Auto) Not Reportable Neut % (Auto) Not Reportable Lymph % (Auto) Not Reportable Evangeline % (Auto) Not Reportable Eos % (Auto) Not Reportable Baso % (Auto) Not Reportable Lymph # (Auto) Not Reportable Evangeline # (Auto) Not Reportable Eos # (Auto) Not Reportable Baso # (Auto) Not Reportable Abs Immat Gran (auto) Not Reportable Absolute Neuts (auto) Not Reportable Absolute Nucleated RBC Not Reportable Total Counted 100 Neutrophils % (Manual) 89 H (46-73) % Band Neutrophils % 6 (0-6) % Lymphocytes % (Manual) 2.0 L (18-44) % Monocytes % (Manual) 3 (3-9) % Nucleated RBC % Not Reportable Abs Neuts (Manual) 29.73 H (1.3-6.7) K/mm3 Abs Lymphs (Manual) 0.62 L (1.1-4.5) K/mm3 Abs Monocytes (Manual) 0.93 H (0.1-0.90) K/mm3 Platelet Estimate Adequate (Adequate) Schistocytes None seen PT 14.8 H (11.1-14.7) Seconds INR 1.1 APTT 29.5 (22.3-36.8) Seconds Sodium 127 L (137-145) mmol/L Potassium 4.2 (3.4-5.0) mmol/L Chloride 93 L (98-107) mmol/L Carbon Dioxide 23 (22-30) mmol/L Anion Gap 11 (4-12) mmol/L BUN 16 (9-20) mg/dL Creatinine 0.91 (0.7-1.3) mg/dL Estim Creat Clear Calc 43 ml/min Estimated GFR > 60 (59 - ) Glucose 162 H (65-110) mg/dL POC Capillary Glucose 146 H (65-105) mg/dl Lactic Acid 2.0 (0.7-2.0) mmol/L Calcium 9.5 (8.4-10.2) mg/dL Total Bilirubin 0.6 (0.2-1.3) mg/dL AST 27 (17-59) U/L ALT 18 (6-50) U/L Alkaline Phosphatase 84 (38-126) U/L Total Creatine Kinase 129 (55-170) U/L Troponin I 0.023 (0.000-0.034) ng/mL C-Reactive Protein 4.3 H (<1.0) mg/dL Total Protein 8.0 (6.3-8.2) g/dL Albumin 3.9 (3.5-5.1) g/dL TSH 3.030 (0.465-4.680) uIU/mL Urine Color Shikha (Yellow) Urine Appearance Turbid H (Clear) Urine pH 5.5 (5.0-9.0) Ur Specific [place] 1.017 (1.001-1.035) Urine Protein 3+ H (Negative) mg/dL Urine Glucose (UA) Negative (Negative) mg/dL Urine Ketones 2+ H (Negative) mg/dL Ur Blood (Man) 3+ H (Negative) Urine Nitrate Negative (Negative) Urine Bilirubin 1+ H (Negative) Urine Urobilinogen 1.0 (<2.0) mg/dL Add Ur Microanalysis Reviewed Leukocyte Esterase Rfl 3+ H (Negative) BRENT/UL Urine RBC >100 H (0-2) /hpf Urine WBC >100 H (0-3) /hpf Ur Squamous Epith Cells None seen (Few) /hpf Urine Bacteria 4+ H /hpf Urine Casts 6-10 Salicylates < 1.0 L (2-20) mg/dL Urine Opiates Screen Negative (Negative) Urine Methadone Screen Negative (Negative) Acetaminophen < 10 L (10-30) ug/mL Ur Barbiturates Screen Negative (Negative) Ur Phencyclidine Scrn Negative (Negative) Ur Amphetamine Screen Negative (Negative) U Benzodiazepines Scrn Negative (Negative) Urine Cocaine Screen Negative (Negative) U Cannabinoids Screen Negative (Negative) Ethyl Alcohol < 10 (<10) mg/dL Imaging Data Attestation: I personally reviewed and interpreted this imaging study as follows: My impression: Impressions Chest X-Ray 03/27/24 15:43 IMPRESSION: 1. Stable interstitial opacities in right lower lung zone and left mid and lower lung zones, likely mild chronic interstitial lung disease. Head CT 03/27/24 16:14 IMPRESSION: No acute intracranial findings. Chest CTA 03/27/24 16:15 IMPRESSION: 1. No pulmonary embolus. 2. Mild chronic interstitial lung disease. ECG Data EKG #1: Attestation: I personally reviewed and interpreted this ECG as follows: ECG completion date: 03/27/24 ECG completion time: 14:40 Prior ECG tracings: available for review Interpretation: Right bundle-branch block but no signs of acute ST segment elevations, depressions or new inversions. Sinus tachycardia. Right bundle branch block is not new and present on previous EKGs evident on his prior admission. Critical Care Time Critical Care Time Critical Care Time: Yes Total Critical Care Time: 80 Discharge Plan Discharge Clinical Impression: Severe sepsis, Dementia, Urinary tract infection, Acute hypotension, Tachycardia, Chronic hyponatremia Patient Disposition: Still a Patient Condition: Serious Time of Disposition: 20:30
[2024-03-27 15:14] LABS: Hematocrit 39.1 % (42.0-52.0); Hemoglobin 13.4 g/dL (14.0-18.0); Mean Corpuscular HGB Conc 34.3 g/dl (32-36); Mean Corpuscular Hemoglobin 31.7 pg (26-34); Mean Corpuscular Volume 92.4 fl (80-100); Mean Platelet Volume 9.4 fl (7.4-10.4); Platelet Count Result 369 k/mm3 (150-375); Red Blood Count 4.23 M/mm3 (4.6-6.20); Red Cell Distribution Width 14.3 % (11.5-14.5); White Blood Count 31.3 K/mm3 (4.5-10.0)
[2024-03-27 15:27] LABS: INR 1.1; Partial Thromboplastin Time 29.5 Seconds (22.3-36.8); Prothrombin Time 14.8 Seconds (11.1-14.7)
[2024-03-27] MEDS: LACTATED RINGERS 1,000 ML 999 ML IV CONT ×2 (15:30→15:31)
[2024-03-27 15:35] LABS: Band Neutrophils Percent 6 % (0-6); Lymphocytes Absolute Manual 0.62 K/mm3 (1.1-4.5); Monocytes Absolute Manual 0.93 K/mm3 (0.1-0.90); Monocytes Percent Manual 3 % (3-9); Neutrophils Absolute Manual 29.73 K/mm3 (1.3-6.7); Neutrophils Percent Manual 89 % (46-73); Platelet Estimate Adequate (Adequate); Schistocytes None Seen; Total Cells Counted 100
[2024-03-27 15:35] LABS: Glucose Point of Care 146 mg/dl (65-105)
[2024-03-27 15:37] LABS: Troponin I 0.023 ng/mL (0.000-0.034)
[2024-03-27 15:38] LABS: Alanine Aminotransferase 18 U/L (6-50); Albumin Level 3.9 g/dL (3.5-5.1); Alkaline Phosphatase 84 U/L (38-126); Anion Gap 11 mmol/L (4-12); Aspartate Amino Transferase 27 U/L (17-59); Bilirubin,Total 0.6 mg/dL (0.2-1.3); Blood Urea Nitrogen 16 mg/dL (9-20); CRP 4.3 mg/dL (<1.0); Calcium 9.5 mg/dL (8.4-10.2); Carbon Dioxide 23 mmol/L (22-30); Chloride 93 mmol/L (98-107); Creatine Kinase 129 U/L (55-170); Estimated CRCL calculation 43 ml/min; Estimated Glomerular Filt Rate > 60; Glucose 162 mg/dL (65-110); Potassium 4.2 mmol/L (3.4-5.0); Sodium 127 mmol/L (137-145)
[2024-03-27 15:49] LABS: Bacteria Urine 4+ /hpf; Need Manual Microscopic Reviewed; RBC Urine >100 /hpf (0-2); Squamous Epithelial Cell Urine None Seen /hpf (Few); WBC Urine >100 /hpf (0-3)
[2024-03-27 15:51] LABS: Add Urine Microscopic? YES; Appearance Urine Turbid (Clear); Bilirubin Urine 1+ (Negative); Blood Urine 3+ (Negative); Glucose Urine UA Negative (Negative); Ketones Urine 2+ mg/dL (Negative); Leukocyte Esterase Ur 3+ LEU/UL (Negative); Nitrate Urine Negative (Negative); Protein Urine 3+ mg/dL (Negative); Specific Grav Ur 1.017 (1.001-1.035); pH Urine 5.5 (5.0-9.0)
[2024-03-27 15:52] LABS: Color Urine Amber (Yellow)
[2024-03-27 16:03] LABS: Acetaminophen < 10 ug/mL (10-30); Ethanol < 10 mg/dL (<10); Salicylate < 1.0 mg/dL (2-20)
[2024-03-27 16:08] LABS: Barbiturate Screen Urine Negative (Negative)
[2024-03-27 16:14] LABS: Cannabinoid Screen Urine Negative (Negative); Cocaine Screen Urine Negative (Negative); Opiate Screen Urine Negative (Negative); Phencyclidine Screen Urine Negative (Negative)
[2024-03-27 16:28] LABS: Benzodiazepines Screen Urine Negative (Negative)
[2024-03-27 16:31] LABS: Amphetamine Screen Urine Negative (Negative); Methadone Screen Urine Negative (Negative)
[2024-03-27] MEDS: CEFEPIME 2 GM/NS 50 ML 2 GM/50 ML BAG IVPB (16:47)
[2024-03-27] MEDS: VANCOMYCIN 1,500 MG/NS 500 ML 1,500 MG/500 ML BAG 250 MG IVPB (17:20)
[2024-03-27] MEDS: LACTATED RINGERS 1,000 ML 125 ML IV CONT (20:07)
--- NOTE | 2024-03-27 21:25 | ADMGEN ---
This patient, Mk Sanches, was admitted to IMU Room 206-. Patient/family oriented to hospital policies and general routines including ID bracelet, bed and alarms, visiting hours, pain management, procedures, bathroom and other care routines, personal items, smoking policy, room service/diet, and visiting hours. Information on how to activate the Rapid Response Team has been discussed. Patient/Family are encouraged to report perceived risks to care and to ask questions if they do not understand what they are told or what they should do.
[2024-03-28] VITALS (19 sets, daily range): BP systolic 101–126; BP diastolic 63–78; PULSE 59–102; RESP 18–20; TEMP 36.5–37.1; O2SAT 95–98; BMI 18.4
--- NOTE | 2024-03-28 02:34 | PM.IMHP ---
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 Patient was initially noted to be hypotensive with blood pressures of 67/39 and tachycardic he was afebrile and maintaining oxygen saturations on room air. Patient received 30 mL/kilos bolus in the ER with marked improvement in his blood pressures. He was initially given empiric antibiotic therapy with cefepime and vancomycin. Review of patient's prior cultures demonstrated the grew out Enterococcus UTI in [place] [id number] sodium of 127 which is similar to prior values, lactic acid of 2. His CT of the head was negative for acute process and CT of the chest was negative for pulmonary embolism but had chronic interstitial changes. X-ray demonstrated chronic interstitial lung disease with pneumonia being less likely. Patient's blood pressure stabilized after fluid boluses and his heart rate normalized as well. Blood pressures were 152/60 systolic and the patient was more alert but still confused. The patient was able to tell me his name at the time of my evaluation and had no complaints. He has a brace on his right arm for which she is post to follow-up for an olecranon fracture with orthopedic surgery next week.. Patient was admitted to the IMU in the setting. Review of Systems Review of Systems: ROS unobtainable: Yes unobtainable due to medical condition (Dementia) and unobtainable due to mental status [facility] Past Medical History Medical History (Updated 03/29/24 @ 08:27 by Dannielle Gu DO) Gangrenous cholecystitis Chronic kidney disease, stage 3 Baseline creatinine between 1.2 and 1.30. GFR is typically in the high 40s or lower 50s. Type 2 diabetes mellitus Hypothyroidism Depression Dementia Surgical History Surgical History (Updated 03/29/24 @ 08:27 by Dannielle Gu DO) Hx laparoscopic cholecystectomy 07/10/21 History of foot surgery Debridement of diabetic foot ulcer. History of bilateral cataract extraction Family History Family History Other Unknown family medical history Social History Social History Social History: Healthcare power of state's attorney: Cassie Granados, daughter. Code status: Full code. Smoking status: Never smoker Smokeless tobacco user: chewing tobacco Additional smoking assessment comments: Quit chewing tobacco in December 2020. Alcohol intake: never Substance use: never Substance use type: does not use Do You Feel Safe in your Home?: Yes Lack of Transportation: No Lack of Food: Never True Current Housing: I Have Housing Concerned About Future Housing: No Difficulty Paying Gas/Electric Bills: No Difficulty Paying for Meds: No Currently Unemployed: No Education: High School Diploma/GED Difficulty w/ Childcare or Family Care: No Living arrangements: with family Additional living arrangements comments: Lives with his daughter Cassie in [place]. 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 Gender identity (if verbalized by the patient): Male Sexual Orientation (if Verbalized by the Patient): Straight or Heterosexual Spiritual care concerns: No Meds Home Medications and Allergies Home Medications ?Medication ?Instructions ?Recorded ?Confirmed ?Type glipizide 5 mg tablet 5 mg PO BID 10/04/19 03/27/24 History levothyroxine 75 mcg tablet 75 mcg PO DAILY 10/04/19 03/27/24 History memantine 5 mg tablet 5 mg PO BID 10/04/19 03/27/24 History aspirin 81 mg tablet,delayed 81 mg PO DAILY 11/01/19 03/27/24 History release (Adult Low Dose Aspirin) sennosides 8.6 mg-docusate sodium 1 tab-cap PO DAILY PRN constipation 03/27/24 03/27/24 History 50 mg tablet (Senna Plus) Allergies Allergy/AdvReac Type Severity Reaction Status Date / Time ibuprofen Allergy Rash Verified 03/27/24 14:09 Sulfa (Sulfonamide Allergy Rash Verified 03/27/24 14:09 Antibiotics) Vital Signs Vital Signs - 24 hr 03/27/24 14:25 03/27/24 14:45 03/27/24 14:47 Temperature 97.7 F Pulse Rate 134 H 131 H 128 H Respiratory Rate 14 16 22 H Blood Pressure 67/39 L 91/65 L Pulse Oximetry 98 98 100 Oxygen Delivery Room Air 03/27/24 15:20 03/27/24 15:20 03/27/24 15:34 Temperature Pulse Rate 125 H 117 H Respiratory Rate 20 17 Blood Pressure 91/65 L 113/52 L Pulse Oximetry 100 98 100 Oxygen Delivery Room Air 03/27/24 16:22 03/27/24 16:48 03/27/24 17:01 Temperature Pulse Rate 109 H 104 H 104 H Respiratory Rate 18 19 16 Blood Pressure 118/99 H 128/78 123/97 H Pulse Oximetry 97 99 99 Oxygen Delivery 03/27/24 17:21 03/27/24 17:31 03/27/24 18:01 Temperature Pulse Rate 116 H 107 H 105 H Respiratory Rate 16 19 15 Blood Pressure 123/97 H 117/69 133/95 H Pulse Oximetry 100 97 Oxygen Delivery 03/27/24 19:14 03/27/24 19:15 03/27/24 19:27 Temperature Pulse Rate 101 H 102 H 110 H Respiratory Rate 21 H 10 L 21 H Blood Pressure Pulse Oximetry 93 100 Oxygen Delivery 03/27/24 19:30 03/27/24 19:45 03/27/24 19:54 Temperature Pulse Rate 99 100 98 Respiratory Rate 18 19 Blood Pressure 152/86 H Pulse Oximetry 100 98 Oxygen Delivery 03/27/24 20:48 03/27/24 21:58 03/28/24 00:00 Temperature 97.7 F Pulse Rate 100 99 101 H Respiratory Rate 19 19 19 Blood Pressure 152/86 H 142/84 H Pulse Oximetry 98 94 95 Oxygen Delivery Room Air 03/28/24 00:00 03/28/24 00:05 Temperature 97.8 F Pulse Rate 101 H 101 H Respiratory Rate 19 Blood Pressure 116/66 Pulse Oximetry 95 Oxygen Delivery Exam Narrative: Weight 61.7 kg BMI 18 Const: Other: Thin body habitus, no acute distress, sitting up in bed with head of bed at 30? HENMT: Other: Head is normocephalic atraumatic, pupils are equal and reactive, positive conjunctival pallor, no scleral icterus, mild crusting of the left eye limiting patient's ability to open the eye well Eyes: Other: Please see above Neck: Other: No JVD, trachea midline Resp: Other: Clear to auscultation bilaterally, no increased work of breathing Cardio: Other: Regular rate, regular rhythm, 2+ bilateral radial pedal pulses, no JVD GI: Other: Soft, tender in the suprapubic region, normoactive bowel sounds, no organomegaly : Other: Pure wick catheter in place Skin: Other: Generalized pallor, non jaundice Neuro: Other: Alert oriented to person only, speech is clear, no facial asymmetry,, follow simple commands Extrem: Other: Right upper extremity is in a hinged brace with a fixed angle, distal extremity is neurovascularly intact, weak carrot harvester strength bilaterally, moves bilateral lower extremities equally Psych: Other: Pleasantly confused, cooperative, poor judgment and insight H&P: Results Labs Labs: Laboratory Tests 03/27/24 15:09 03/27/24 15:09 03/27/24 03/27/24 03/27/24 14:58 15:09 15:31 WBC 31.3 H RBC 4.23 L Hgb 13.4 L Hct 39.1 L MCV 92.4 MCH 31.7 MCHC 34.3 RDW 14.3 Plt Count 369 MPV 9.4 Immature Gran % (Auto) Not Reportable Neut % (Auto) Not Reportable Lymph % (Auto) Not Reportable [place] % (Auto) Not Reportable Eos % (Auto) Not Reportable Baso % (Auto) Not Reportable Lymph # (Auto) Not Reportable [place] # (Auto) Not Reportable Eos # (Auto) Not Reportable Baso # (Auto) Not Reportable Abs Immat Gran (auto) Not Reportable Absolute Neuts (auto) Not Reportable Absolute Nucleated RBC Not Reportable Total Counted 100 Neutrophils % (Manual) 89 H Band Neutrophils % 6 Lymphocytes % (Manual) 2.0 L Monocytes % (Manual) 3 Nucleated RBC % Not Reportable Abs Neuts (Manual) 29.73 H Abs Lymphs (Manual) 0.62 L Abs Monocytes (Manual) 0.93 H Platelet Estimate Adequate Schistocytes None seen PT 14.8 H INR 1.1 APTT 29.5 Sodium 127 L Potassium 4.2 Chloride 93 L Carbon Dioxide 23 Anion Gap 11 BUN 16 Creatinine 0.91 Estim Creat Clear Calc 43 Estimated GFR > 60 Glucose 162 H POC Capillary Glucose 146 H Lactic Acid 2.0 Calcium 9.5 Total Bilirubin 0.6 AST 27 ALT 18 Alkaline Phosphatase 84 Total Creatine Kinase 129 Troponin I 0.023 C-Reactive Protein 4.3 H Total Protein 8.0 Albumin 3.9 TSH 3.030 Urine Color Shikha Urine Appearance Turbid H Urine pH 5.5 Ur Specific [place] 1.017 Urine Protein 3+ H Urine Glucose (UA) Negative Urine Ketones 2+ H Ur Blood (Man) 3+ H Urine Nitrate Negative Urine Bilirubin 1+ H Urine Urobilinogen 1.0 Add Ur Microanalysis Reviewed Leukocyte Esterase Rfl 3+ H Urine RBC >100 H Urine WBC >100 H Ur Squamous Epith Cells None seen Urine Bacteria 4+ H Urine Casts 6-10 Salicylates < 1.0 L Urine Opiates Screen Negative Urine Methadone Screen Negative Acetaminophen < 10 L Ur Barbiturates Screen Negative Ur Phencyclidine Scrn Negative Ur Amphetamine Screen Negative U Benzodiazepines Scrn Negative Urine Cocaine Screen Negative U Cannabinoids Screen Negative Ethyl Alcohol < 10 Impressions Chest X-Ray 03/27/24 15:43 IMPRESSION: 1. Stable interstitial opacities in right lower lung zone and left mid and lower lung zones, likely mild chronic interstitial lung disease. Head CT 03/27/24 16:14 IMPRESSION: No acute intracranial findings. Chest CTA 03/27/24 16:15 IMPRESSION: 1. No pulmonary embolus. 2. Mild chronic interstitial lung disease. EKG: Tachycardic rate 129, appears to be sinus rhythm, right bundle-branch block, QTC 456 cardiology interpretation pending All imaging and EKGs personally reviewed and interpreted. And unless stated otherwise agree with radiologic and cardiology interpretation. Assessment and Plan Assessment and plan (1) Severe sepsis: Code(s): A41.9 - Sepsis, unspecified organism; R65.20 - Severe sepsis without septic shock Status: Acute (2) Urinary tract infection: Qualifiers: Urinary tract infection type: acute cystitis Hematuria presence: with hematuria Qualified Code(s): N30.01 - Acute cystitis with hematuria Code(s): N39.0 - Urinary tract infection, site not specified Status: Acute (3) Acute hypotension: Code(s): I95.9 - Hypotension, unspecified Status: Acute (4) Chronic hyponatremia: Code(s): E87.1 - Hypo-osmolality and hyponatremia Status: Acute (5) Dementia: Qualifiers: Dementia type: unspecified type Dementia severity: moderate Dementia behavioral or psychological symptom: without behavioral, psychotic, or mood disturbance or anxiety Qualified Code(s): F03.B0 - Unspecified dementia, moderate, without behavioral disturbance, psychotic disturbance, mood disturbance, and anxiety Code(s): F03.90 - Unspecified dementia, unspecified severity, without behavioral disturbance, psychotic disturbance, mood disturbance, and anxiety Status: Acute (6) Olecranon fracture: Qualifiers: Encounter type: initial encounter Fracture type: closed Laterality: right Qualified Code(s): S52.021A - Displaced fracture of olecranon process without intraarticular extension of right ulna, initial encounter for closed fracture Code(s): S52.023A - Displaced fracture of olecranon process without intraarticular extension of unspecified ulna, initial encounter for closed fracture Status: Acute (7) Type 2 diabetes mellitus: Qualifiers: Diabetes mellitus exterminator insulin use: unspecified [facility] insulin use status Diabetes mellitus complication status: with kidney complications Diabetes mellitus complication detail: with chronic kidney disease Chronic kidney disease stage: stage 3 (moderate) Chronic kidney disease stage 3 subtype: unspecified whether 3a or 3b Qualified Code(s): E11.22 - Type 2 diabetes mellitus with diabetic chronic kidney disease; N18.30 - Chronic kidney disease, stage 3 unspecified Code(s): E11.9 - Type 2 diabetes mellitus without complications Status: Acute (8) Hypothyroidism: Qualifiers: Hypothyroidism type: unspecified Qualified Code(s): E03.9 - Hypothyroidism, unspecified Code(s): E03.9 - Hypothyroidism, unspecified Status: Acute Plan The patient had transient hypotension that resolved with adequate fluid resuscitation. He still fits severe sepsis criteria with presumed source being UTI pulled Given patient's prior urine cultures grew out Enterococcus will continue to cover patient with vancomycin. However, will the step-down the patient is gram-negative coverage to Rocephin. The patient's blood pressures have stabilized but he still appears clinically dehydrated with dry mucous membranes and poor skin turgor. Will continue IV fluid hydration. However will need to use caution as patient does have a history of SIADH and is on chronic fluid restriction at the custodial. Will repeat CBC with diff in a.m.. Will continue antibiotic therapy. Will continue thyroid medications. Will continue dementia medications and avoid additional mood altering substances if possible. Will hold the patient's oral hypoglycemic agents and will place patient on sliding scale insulin as needed with Accu-Cheks a.c. HS and hypoglycemia protocol. Head patient has follow-up regarding his olecranon fracture with orthopedic surgery next week. Patient will remain in brace. Quality VTE Prophylaxis VTE prophylaxis: mechanical ordered Hospitalist MIPS Advance Care Plan I have confirmed that the patient's Advanced Care Plan is present, code status is documented, or surrogate decision maker is listed in patient medical record.: Yes Medication Reconciliation I have utilized all available resources to obtain, update and review the patients current medications (includes all prescriptions, OTC, herbals, cannabis, and nutritional supplements).: Yes
[2024-03-28 06:00] LABS: Estimated CRCL calculation 54 ml/min; Estimated Glomerular Filt Rate > 60
[2024-03-28 09:23] LABS: Hemoglobin 10.1 g/dL (14.0-18.0); Mean Corpuscular HGB Conc 33.7 g/dl (32-36); Mean Corpuscular Hemoglobin 31.9 pg (26-34); Mean Corpuscular Volume 94.6 fl (80-100); Platelet Count Result 308 k/mm3 (150-375); Red Blood Count 3.17 M/mm3 (4.6-6.20); Red Cell Distribution Width 14.5 % (11.5-14.5); White Blood Count 27.5 K/mm3 (4.5-10.0)
[2024-03-28 09:48] LABS: Alanine Aminotransferase 14 U/L (6-50); Albumin Level 2.8 g/dL (3.5-5.1); Alkaline Phosphatase 66 U/L (38-126); Anion Gap 5 mmol/L (4-12); Aspartate Amino Transferase 48 U/L (17-59); Bilirubin,Total 0.5 mg/dL (0.2-1.3); Blood Urea Nitrogen 16 mg/dL (9-20); Calcium 8.5 mg/dL (8.4-10.2); Carbon Dioxide 21 mmol/L (22-30); Chloride 100 mmol/L (98-107); Estimated CRCL calculation 55 ml/min; Estimated Glomerular Filt Rate > 60; Glucose 144 mg/dL (65-110); Potassium 3.9 mmol/L (3.4-5.0); Sodium 126 mmol/L (137-145)
[2024-03-28 09:51] LABS: Platelet Estimate Adequate (Adequate); Total Cells Counted 100
[2024-03-28 09:52] LABS: Anisocytosis 1+; Schistocytes None Seen
[2024-03-28] MEDS: MEMANTINE 5 MG TABLET PO ×2 (10:04→22:30)
[2024-03-28] MEDS: LEVOTHYROXINE SODIUM 75 MCG TABLET PO (10:04)
[2024-03-28] MEDS: ASPIRIN 81 MG ENTERIC TABLET PO (10:04)
[2024-03-28 12:36] LABS: Lactic Acid Reflex 1.4 mmol/L (0.7-2.0)
[2024-03-28 12:43] LABS: Glucose Point of Care 238 mg/dl (65-105)
[2024-03-28] MEDS: INSULIN ASPART (*BKC) 100 UNITS/ML SUB-Q (13:05)
--- NOTE | 2024-03-28 13:12 | PCSTNOTE ---
Please refer to the Bedside Swallow Evaluation in the EMR. Please note, silent aspiration cannot be ruled out at bedside.
--- NOTE | 2024-03-28 14:36 | PM.IMPN ---
Progress Note: A&P Assessment and Plan (1) Chronic hyponatremia: Code(s): E87.1 - Hypo-osmolality and hyponatremia Status: Acute (2) Acute hypotension: Code(s): I95.9 - Hypotension, unspecified Status: Acute (3) Tachycardia: Code(s): R00.0 - Tachycardia, unspecified Status: Acute (4) Urinary tract infection: Code(s): N39.0 - Urinary tract infection, site not specified Status: Acute (5) Dementia: Code(s): F03.90 - Unspecified dementia, unspecified severity, without behavioral disturbance, psychotic disturbance, mood disturbance, and anxiety Status: Acute (6) Severe sepsis: Code(s): A41.9 - Sepsis, unspecified organism; R65.20 - Severe sepsis without septic shock Status: Acute (7) Olecranon fracture: Qualifiers: Encounter type: initial encounter Fracture type: closed Laterality: right Qualified Code(s): S52.021A - Displaced fracture of olecranon process without intraarticular extension of right ulna, initial encounter for closed fracture Code(s): S52.023A - Displaced fracture of olecranon process without intraarticular extension of unspecified ulna, initial encounter for closed fracture Status: Acute Plan UTI with sepsis CTA Chest unremarkable Hypotension resolved Monitor cultures Continue Rocephin and Vanc Patient had a history of Enterococcus HYponatremia Patietn has chronic hyponatremia and appears to live around high 120s contineu IVF and monitor Dementia COntinue home meds DVT prophylaxis on Sq Lovenox Subjective Date/time seen: 03/28/24 14:36 Interval history: comfortable AT BEDSIDE BP wnl, decreased IVF to 75cc/hr monitor Review of Systems Review of Systems: ROS unobtainable: Yes unobtainable due to medical condition (Dementia) and unobtainable due to mental status Exam Narrative: General: alert and comfortable Eyes: EOMI, PERRLA ENNT External ears normal, Neck is supple, no masses, Respiratory systems: Clear to auscultation Cardiovascular S1, S2, normal rhythm, no murmur, rub, or gallop; no thrill or palpable murmurs on palpation. Gastrointestinal: soft, non-tender, and non-distended abdomen with no masses; BS present Skin: no rash, lesions, ulcerations, subcutaneous nodules or induration Musculoskeletal: no abnormality and no tenderness, normal ROM Neurologic: Alert and oriented x3, non focal Mental Status Exam: normal affect Objective Data Vital Signs Vital Signs: Vital Signs - 24 hr 03/27/24 14:45 03/27/24 14:47 03/27/24 15:20 Temperature Pulse Rate 131 H 128 H Respiratory Rate 16 22 H Blood Pressure 91/65 L Pulse Oximetry 98 100 100 Oxygen Delivery Room Air 03/27/24 15:20 03/27/24 15:34 03/27/24 16:22 Temperature Pulse Rate 125 H 117 H 109 H Respiratory Rate 20 17 18 Blood Pressure 91/65 L 113/52 L 118/99 H Pulse Oximetry 98 100 97 Oxygen Delivery 03/27/24 16:48 03/27/24 17:01 03/27/24 17:21 Temperature Pulse Rate 104 H 104 H 116 H Respiratory Rate 19 16 16 Blood Pressure 128/78 123/97 H 123/97 H Pulse Oximetry 99 99 100 Oxygen Delivery 03/27/24 17:31 03/27/24 18:01 03/27/24 19:14 Temperature Pulse Rate 107 H 105 H 101 H Respiratory Rate 19 15 21 H Blood Pressure 117/69 133/95 H Pulse Oximetry 97 Oxygen Delivery 03/27/24 19:15 03/27/24 19:27 03/27/24 19:30 Temperature Pulse Rate 102 H 110 H 99 Respiratory Rate 10 L 21 H 18 Blood Pressure Pulse Oximetry 93 100 100 Oxygen Delivery 03/27/24 19:45 03/27/24 19:54 03/27/24 20:48 Temperature Pulse Rate 100 98 100 Respiratory Rate 19 19 Blood Pressure 152/86 H 152/86 H Pulse Oximetry 98 98 Oxygen Delivery 03/27/24 21:58 03/28/24 00:00 03/28/24 00:00 Temperature 97.7 F Pulse Rate 99 101 H 101 H Respiratory Rate 19 19 Blood Pressure 142/84 H Pulse Oximetry 94 95 Oxygen Delivery Room Air 03/28/24 00:05 03/28/24 03:11 03/28/24 03:13 Temperature 97.8 F Pulse Rate 101 H 97 97 Respiratory Rate 19 19 Blood Pressure 116/66 Pulse Oximetry 95 95 Oxygen Delivery Room Air 03/28/24 03:50 03/28/24 05:43 03/28/24 08:00 Temperature 97.7 F 98.1 F Pulse Rate 99 59 L 90 Respiratory Rate 18 20 Blood Pressure 101/69 117/63 Pulse Oximetry 95 98 Oxygen Delivery 03/28/24 08:00 03/28/24 08:00 03/28/24 10:00 Temperature Pulse Rate 95 102 H Respiratory Rate Blood Pressure Pulse Oximetry 98 Oxygen Delivery Room Air 03/28/24 11:58 03/28/24 12:00 03/28/24 12:00 Temperature 98.7 F Pulse Rate 83 87 Respiratory Rate 18 Blood Pressure 117/63 Pulse Oximetry 98 Oxygen Delivery Room Air Intake/Output Intake/Output: Intake & Output 03/25/24 03/26/24 03/27/24 03/28/24 23:59 23:59 23:59 23:59 Intake Total 2550 240 Output Total 50 Balance 2500 240 Meds/Results Medications: Active Medications Generic Name Dose Route Start Last Admin Trade Name Freq PRN Reason Stop Dose Admin Acetaminophen 650 mg 03/27/24 18:16 Acetaminophen 325 Mg Tablet PO Q4H PRN Mild Pain (1-3) or Fever Aspirin 81 mg 03/28/24 09:15 03/28/24 10:04 Aspirin 81 Mg Enteric Tablet PO 81 mg DAILY DANIELLE Administration Dextrose 12.5 gm 03/28/24 09:07 Dextrose 50% 25 Gm/50 Ml Syringe IV PUSH PRN PRN Hypoglycemia Protocol Glucagon 1 mg 03/28/24 09:07 Glucagon For Inj 1 Mg Vial IM PRN PRN Hypoglycemia Protocol Glucose 15 gm 03/28/24 09:07 Glucose Oral Gel 15 Gm Of Glucse In 37.5 Gm Tube PO PRN PRN Hypoglycemia Protocol Vancomycin HCl 1,000 mg in 250 mls @ 250 mls/hr 03/28/24 17:00 Vancomycin 1,000 Mg/Ns 250 Ml IVPB Q24H DANIELLE Lactated Ringer's 1,000 mls @ 75 mls/hr 03/27/24 18:20 03/28/24 10:05 Lr - Lactated Ringers Iv IV CONT Not Given .[id number] DANIELLE Dextrose 1,000 mls @ 100 mls/hr 03/28/24 09:07 Dextrose 5% 1,000 Ml IVPB PRN PRN Hypoglycemia Protocol Ceftriaxone Sodium 1 gm in 50 mls @ 100 mls/hr 03/28/24 09:10 03/28/24 10:04 Rocephin 1 Gm/Ns 50 Ml IVPB 100 mls/hr QAM DANIELLE Administration Insulin Aspart 2 - 5 units 03/28/24 12:00 03/28/24 13:05 Insulin Aspart (*Bkc) 100 Units/Ml SUB-Q 2 units TIDWM DANIELLE Administration Protocol Insulin Aspart 1 - 2 units 03/28/24 21:00 Insulin Aspart (*Bkc) 100 Units/Ml SUB-Q HS DANIELLE Protocol Levothyroxine Sodium 75 mcg 03/28/24 09:20 03/28/24 10:04 Levothyroxine Sodium 75 Mcg Tablet PO 75 mcg DAILY@0630 DANIELLE Administration Memantine 5 mg 03/28/24 09:20 03/28/24 10:04 Memantine 5 Mg Tablet PO 5 mg Q12HR DANIELLE Administration Senna/Docusate Sodium 1 tab 03/28/24 09:07 Senna/Docusate Sodium Tablet PO DAILY PRN constipation Radiology Results: ITS Impressions Chest X-Ray 03/27/24 15:43 IMPRESSION: 1. Stable interstitial opacities in right lower lung zone and left mid and lower lung zones, likely mild chronic interstitial lung disease. Head CT 03/27/24 16:14 IMPRESSION: No acute intracranial findings. Chest CTA 03/27/24 16:15 IMPRESSION: 1. No pulmonary embolus. 2. Mild chronic interstitial lung disease. Labs Labs: Laboratory Results - last 24 hr 03/27/24 03/27/24 03/27/24 14:58 15:09 15:31 WBC 31.3 H RBC 4.23 L Hgb 13.4 L Hct 39.1 L MCV 92.4 MCH 31.7 MCHC 34.3 RDW 14.3 Plt Count 369 MPV 9.4 Immature Gran % (Auto) Not Reportable Neut % (Auto) Not Reportable Lymph % (Auto) Not Reportable [place] % (Auto) Not Reportable Eos % (Auto) Not Reportable Baso % (Auto) Not Reportable Lymph # (Auto) Not Reportable [place] # (Auto) Not Reportable Eos # (Auto) Not Reportable Baso # (Auto) Not Reportable Abs Immat Gran (auto) Not Reportable Absolute Neuts (auto) Not Reportable Absolute Nucleated RBC Not Reportable Total Counted 100 Neutrophils % (Manual) 89 H Band Neutrophils % 6 Lymphocytes % (Manual) 2.0 L Monocytes % (Manual) 3 Nucleated RBC % Not Reportable Abs Neuts (Manual) 29.73 H Abs Lymphs (Manual) 0.62 L Abs Monocytes (Manual) 0.93 H Platelet Estimate Adequate Anisocytosis Schistocytes None seen PT 14.8 H INR 1.1 APTT 29.5 Sodium 127 L Potassium 4.2 Chloride 93 L Carbon Dioxide 23 Anion Gap 11 BUN 16 Creatinine 0.91 Estim Creat Clear Calc 43 Estimated GFR > 60 Glucose 162 H POC Capillary Glucose 146 H Lactic Acid 2.0 Calcium 9.5 Total Bilirubin 0.6 AST 27 ALT 18 Alkaline Phosphatase 84 Total Creatine Kinase 129 Troponin I 0.023 C-Reactive Protein 4.3 H Total Protein 8.0 Albumin 3.9 TSH 3.030 Urine Color Shikha Urine Appearance Turbid H Urine pH 5.5 Ur Specific [place] 1.017 Urine Protein 3+ H Urine Glucose (UA) Negative Urine Ketones 2+ H Ur Blood (Man) 3+ H Urine Nitrate Negative Urine Bilirubin 1+ H Urine Urobilinogen 1.0 Add Ur Microanalysis Reviewed Leukocyte Esterase Rfl 3+ H Urine RBC >100 H Urine WBC >100 H Ur Squamous Epith Cells None seen Urine Bacteria 4+ H Urine Casts 6-10 Salicylates < 1.0 L Urine Opiates Screen Negative Urine Methadone Screen Negative Acetaminophen < 10 L Ur Barbiturates Screen Negative Ur Phencyclidine Scrn Negative Ur Amphetamine Screen Negative U Benzodiazepines Scrn Negative Urine Cocaine Screen Negative U Cannabinoids Screen Negative Ethyl Alcohol < 10 03/28/24 03/28/24 03/28/24 04:46 04:51 09:38 WBC 27.5 H RBC 3.17 L Hgb 10.1 L D Hct 30.0 L MCV 94.6 MCH 31.9 MCHC 33.7 RDW 14.5 Plt Count 308 MPV 10.0 Immature Gran % (Auto) Not Reportable Neut % (Auto) Not Reportable Lymph % (Auto) Not Reportable [place] % (Auto) Not Reportable Eos % (Auto) Not Reportable Baso % (Auto) Not Reportable Lymph # (Auto) Not Reportable [place] # (Auto) Not Reportable Eos # (Auto) Not Reportable Baso # (Auto) Not Reportable Abs Immat Gran (auto) Not Reportable Absolute Neuts (auto) Not Reportable Absolute Nucleated RBC Not Reportable Total Counted 100 Neutrophils % (Manual) Band Neutrophils % Lymphocytes % (Manual) Monocytes % (Manual) Nucleated RBC % Not Reportable Abs Neuts (Manual) Abs Lymphs (Manual) Abs Monocytes (Manual) Platelet Estimate Adequate Anisocytosis 1+ Schistocytes None seen PT INR APTT Sodium 126 L Potassium 3.9 Chloride 100 Carbon Dioxide 21 L Anion Gap 5 BUN 16 Creatinine 0.73 0.74 Estim Creat Clear Calc 55 54 Estimated GFR > 60 > 60 Glucose 144 H POC Capillary Glucose Lactic Acid 1.4 Calcium 8.5 Total Bilirubin 0.5 AST 48 ALT 14 Alkaline Phosphatase 66 Total Creatine Kinase Troponin I C-Reactive Protein Total Protein 6.0 L Albumin 2.8 L TSH Urine Color Urine Appearance Urine pH Ur Specific [place] Urine Protein Urine Glucose (UA) Urine Ketones Ur Blood (Man) Urine Nitrate Urine Bilirubin Urine Urobilinogen Add Ur Microanalysis Leukocyte Esterase Rfl Urine RBC Urine WBC Ur Squamous Epith Cells Urine Bacteria Urine Casts Salicylates Urine Opiates Screen Urine Methadone Screen Acetaminophen Ur Barbiturates Screen Ur Phencyclidine Scrn Ur Amphetamine Screen U Benzodiazepines Scrn Urine Cocaine Screen U Cannabinoids Screen Ethyl Alcohol 03/28/24 12:41 WBC RBC Hgb Hct MCV MCH MCHC RDW Plt Count MPV Immature Gran % (Auto) Neut % (Auto) Lymph % (Auto) [place] % (Auto) Eos % (Auto) Baso % (Auto) Lymph # (Auto) [place] # (Auto) Eos # (Auto) Baso # (Auto) Abs Immat Gran (auto) Absolute Neuts (auto) Absolute Nucleated RBC Total Counted Neutrophils % (Manual) Band Neutrophils % Lymphocytes % (Manual) Monocytes % (Manual) Nucleated RBC % Abs Neuts (Manual) Abs Lymphs (Manual) Abs Monocytes (Manual) Platelet Estimate Anisocytosis Schistocytes PT INR APTT Sodium Potassium Chloride Carbon Dioxide Anion Gap BUN Creatinine Estim Creat Clear Calc Estimated GFR Glucose POC Capillary Glucose 238 H Lactic Acid Calcium Total Bilirubin AST ALT Alkaline Phosphatase Total Creatine Kinase Troponin I C-Reactive Protein Total Protein Albumin TSH Urine Color Urine Appearance Urine pH Ur Specific [place] Urine Protein Urine Glucose (UA) Urine Ketones Ur Blood (Man) Urine Nitrate Urine Bilirubin Urine Urobilinogen Add Ur Microanalysis Leukocyte Esterase Rfl Urine RBC Urine WBC Ur Squamous Epith Cells Urine Bacteria Urine Casts Salicylates Urine Opiates Screen Urine Methadone Screen Acetaminophen Ur Barbiturates Screen Ur Phencyclidine Scrn Ur Amphetamine Screen U Benzodiazepines Scrn Urine Cocaine Screen U Cannabinoids Screen Ethyl Alcohol Quality VTE Prophylaxis VTE prophylaxis: mechanical ordered
--- NOTE | 2024-03-28 14:38 | PCPTNOTE ---
Attempted to see patient for PT evaluation. Patient is not able to stay aroused and is extremely lethargic. Not safe to attempt out of bed mobility at this time.
[2024-03-28 15:55] LABS: Glucose Point of Care 163 mg/dl (65-105)
[2024-03-28] MEDS: LACTATED RINGERS 1,000 ML 75 ML IV CONT (18:18)
[2024-03-28] MEDS: VANCOMYCIN 1,000 MG/NS 250 ML 1,000 MG/250 ML BAG 250 MG IVPB (18:19)
[2024-03-29] VITALS (16 sets, daily range): BP systolic 121–154; BP diastolic 63–86; PULSE 74–90; RESP 18–22; TEMP 36.4–37.2; O2SAT 96–100
[2024-03-29 05:09] LABS: Basophils Absolute Auto 0.1 K/mm3 (0.0-0.1); Basophils Percent Auto 0.4 % (0.2-1.2); Eosinophils Absolute Auto 0.2 K/mm3 (0-0.3); Hematocrit 31.2 % (42.0-52.0); Hemoglobin 10.3 g/dL (14.0-18.0); Immature Granulocyte Absolute 0.08 K/mm3 (0.00-0.031); Immature Granulocyte Percent A 0.5 % (0-0.5); Lymphocytes Absolute Auto 1.18 K/mm3 (0.9-3.2); Lymphocytes Percent Auto 7.6 % (18.3-44.2); Mean Corpuscular Hemoglobin 31.2 pg (26-34); Mean Corpuscular Volume 94.5 fl (80-100); Mean Platelet Volume 9.9 fl (7.4-10.4); Monocytes Percent Auto 6.3 % (2.6-8.5); Neutrophils Absolute Auto 13.1 K/mm3 (1.3-6.7); Neutrophils Percent Auto 84.2 % (45.5-73.1); Platelet Count Result 262 k/mm3 (150-375); Red Cell Distribution Width 14.5 % (11.5-14.5); White Blood Count 15.6 K/mm3 (4.5-10.0)
[2024-03-29 05:22] LABS: Alanine Aminotransferase 14 U/L (6-50); Albumin Level 2.8 g/dL (3.5-5.1); Alkaline Phosphatase 60 U/L (38-126); Anion Gap 2 mmol/L (4-12); Aspartate Amino Transferase 22 U/L (17-59); Bilirubin,Total 0.5 mg/dL (0.2-1.3); Blood Urea Nitrogen 11 mg/dL (9-20); Calcium 8.4 mg/dL (8.4-10.2); Carbon Dioxide 27 mmol/L (22-30); Chloride 99 mmol/L (98-107); Estimated CRCL calculation 60 ml/min; Estimated Glomerular Filt Rate > 60; Glucose 135 mg/dL (65-110); Magnesium 1.4 mg/dL (1.6-2.3); Potassium 3.7 mmol/L (3.4-5.0); Sodium 128 mmol/L (137-145)
[2024-03-29 05:27] LABS: Lactic Acid Reflex 0.8 mmol/L (0.7-2.0)
[2024-03-29] MEDS: LEVOTHYROXINE SODIUM 75 MCG TABLET PO (05:27)
[2024-03-29 08:28] LABS: Glucose Point of Care 131 mg/dl (65-105)
--- NOTE | 2024-03-29 09:46 | PCOTNOTE ---
Attempted to see patient for OT evaluation. Patient refused occupational therapy evaluation. RN aware. Will follow.
[2024-03-29] MEDS: ENOXAPARIN 40 MG/0.4 ML SYRINGE SUB-Q (10:07)
[2024-03-29] MEDS: MEMANTINE 5 MG TABLET PO ×2 (10:07→21:26)
[2024-03-29] MEDS: ASPIRIN 81 MG ENTERIC TABLET PO (10:07)
[2024-03-29] MEDS: MAGNESIUM SULFATE 3GM/D5W100ML 3 GM/100 ML BAG IVPB (10:45)
[2024-03-29 12:03] LABS: Glucose Point of Care 213 mg/dl (65-105)
[2024-03-29] MEDS: LACTATED RINGERS 1,000 ML 75 ML IV CONT (12:36)
[2024-03-29] MEDS: INSULIN ASPART (*BKC) 100 UNITS/ML SUB-Q ×2 (12:37→21:26)
[2024-03-29 16:35] LABS: Vancomycin Trough 7.7 ug/mL (10.0-20.0)
--- NOTE | 2024-03-29 17:03 | PM.IMPN ---
Progress Note: A&P Assessment and Plan (1) Severe sepsis: Code(s): A41.9 - Sepsis, unspecified organism; R65.20 - Severe sepsis without septic shock Status: Acute (2) Urinary tract infection: Qualifiers: Hematuria presence: with hematuria Urinary tract infection type: acute cystitis Qualified Code(s): N30.01 - Acute cystitis with hematuria Code(s): N39.0 - Urinary tract infection, site not specified Status: Acute (3) Acute hypotension: Code(s): I95.9 - Hypotension, unspecified Status: Acute (4) Chronic hyponatremia: Code(s): E87.1 - Hypo-osmolality and hyponatremia Status: Acute (5) Dementia: Qualifiers: Dementia behavioral or psychological symptom: without behavioral, psychotic, or mood disturbance or anxiety Dementia severity: moderate Dementia type: unspecified type Qualified Code(s): F03.B0 - Unspecified dementia, moderate, without behavioral disturbance, psychotic disturbance, mood disturbance, and anxiety Code(s): F03.90 - Unspecified dementia, unspecified severity, without behavioral disturbance, psychotic disturbance, mood disturbance, and anxiety Status: Acute (6) Olecranon fracture: Qualifiers: Encounter type: initial encounter Fracture type: closed Laterality: right Qualified Code(s): S52.021A - Displaced fracture of olecranon process without intraarticular extension of right ulna, initial encounter for closed fracture Code(s): S52.023A - Displaced fracture of olecranon process without intraarticular extension of unspecified ulna, initial encounter for closed fracture Status: Acute (7) Type 2 diabetes mellitus: Qualifiers: Diabetes mellitus intermediate insulin use: unspecified intermediate insulin use status Diabetes mellitus complication status: with kidney complications Diabetes mellitus complication detail: with chronic kidney disease Chronic kidney disease stage: stage 3 (moderate) Chronic kidney disease stage 3 subtype: unspecified whether 3a or 3b Qualified Code(s): E11.22 - Type 2 diabetes mellitus with diabetic chronic kidney disease; N18.30 - Chronic kidney disease, stage 3 unspecified Code(s): E11.9 - Type 2 diabetes mellitus without complications Status: Acute (8) Hypothyroidism: Qualifiers: Hypothyroidism type: unspecified Qualified Code(s): E03.9 - Hypothyroidism, unspecified Code(s): E03.9 - Hypothyroidism, unspecified Status: Acute Plan Hyponatremia Na 128, from 127 Patient has chronic hyponatremia and appears to be at baseline monitor UTI with Sepsis vital signs stable and wnl WBC improving, WBC 15.6 from 31.3 Blood and urine culture pending Continue Rocephin and Vanc patient had a prior history of Enterococcus species monitor Dementia Continue home meds Protein energy malnutriton/FTT Patient has poor oral intake on Protein supplements Dietitian consulted Started on Dronabinol monitor DM2 SSi with Accucheks adjust with clinical course CKD monitor Hypothyroidism continue home meds DVT prophylaxis on Sq Lovenox Subjective Date/time seen: 03/29/24 17:03 Interval history: Comfortable at bedside Cultures still negative and WBC improving Patient having poor oral intake and still on IVF. Review of Systems Review of Systems: ROS unobtainable: Yes unobtainable due to medical condition (Dementia) and unobtainable due to mental status Exam Narrative: Weight 61.7 kg BMI 18 Const: Other: Thin body habitus, no acute distress, sitting up in bed with head of bed at 30? HENMT: Other: Head is normocephalic atraumatic, pupils are equal and reactive, positive conjunctival pallor, no scleral icterus, mild crusting of the left eye limiting patient's ability to open the eye well Eyes: Other: Please see above Neck: Other: No JVD, trachea midline Resp: Other: Clear to auscultation bilaterally, no increased work of breathing Cardio: Other: Regular rate, regular rhythm, 2+ bilateral radial pedal pulses, no JVD GI: Other: Soft, tender in the suprapubic region, normoactive bowel sounds, no organomegaly : Other: Pure wick catheter in place Skin: Other: Generalized pallor, non jaundice Neuro: Other: Alert oriented to person only, speech is clear, no facial asymmetry,, follow simple commands Extrem: Other: Right upper extremity is in a hinged brace with a fixed angle, distal extremity is neurovascularly intact, weak side laster staple strength bilaterally, moves bilateral lower extremities equally Psych: Other: Pleasantly confused, cooperative, poor judgment and insight Objective Data Vital Signs Vital Signs: Vital Signs - 24 hr 03/28/24 18:00 03/28/24 20:00 03/28/24 20:00 Temperature Pulse Rate 95 95 91 Respiratory Rate 18 Blood Pressure Pulse Oximetry 98 Oxygen Delivery Room Air 03/28/24 20:33 03/28/24 21:33 03/28/24 23:33 Temperature 97.8 F 97.7 F Pulse Rate 79 79 78 Respiratory Rate 18 18 Blood Pressure 126/67 114/78 Pulse Oximetry 97 98 Oxygen Delivery 03/29/24 00:00 03/29/24 00:00 03/29/24 02:00 Temperature Pulse Rate 83 83 84 Respiratory Rate 18 Blood Pressure Pulse Oximetry 98 Oxygen Delivery Room Air 03/29/24 03:46 03/29/24 03:55 03/29/24 03:55 Temperature 98.7 F Pulse Rate 77 78 78 Respiratory Rate 18 18 Blood Pressure 145/63 H Pulse Oximetry 96 96 Oxygen Delivery Room Air 03/29/24 06:00 03/29/24 08:00 03/29/24 08:00 Temperature 98.3 F Pulse Rate 74 81 Respiratory Rate 18 Blood Pressure 137/74 Pulse Oximetry 99 99 Oxygen Delivery Room Air 03/29/24 08:00 03/29/24 10:00 03/29/24 11:03 Temperature Pulse Rate 79 87 Respiratory Rate Blood Pressure Pulse Oximetry Oxygen Delivery Room Air 03/29/24 12:00 03/29/24 12:00 03/29/24 15:10 Temperature 99 F Pulse Rate 80 Respiratory Rate 20 Blood Pressure 121/64 Pulse Oximetry 97 97 97 Oxygen Delivery Room Air Room Air Intake/Output Intake/Output: Intake & Output 03/26/24 03/27/24 03/28/24 03/29/24 23:59 23:59 23:59 23:59 Intake Total 2550 1780 1075.0 Output Total 50 200 901 Balance 2500 1580 174.0 Meds/Results Medications: Active Medications Generic Name Dose Route Start Last Admin Trade Name Freq PRN Reason Stop Dose Admin Acetaminophen 650 mg 03/27/24 18:16 Acetaminophen 325 Mg Tablet PO Q4H PRN Mild Pain (1-3) or Fever Aspirin 81 mg 03/28/24 09:15 03/29/24 10:07 Aspirin 81 Mg Enteric Tablet PO 81 mg DAILY DANIELLE Administration Dextrose 12.5 gm 03/28/24 09:07 Dextrose 50% 25 Gm/50 Ml Syringe IV PUSH PRN PRN Hypoglycemia Protocol Enoxaparin Sodium 40 mg 03/29/24 09:00 03/29/24 10:07 Enoxaparin 40 Mg/0.4 Ml Syringe SUB-Q 40 mg DAILY DANIELLE Administration Glucagon 1 mg 03/28/24 09:07 Glucagon For Inj 1 Mg Vial IM PRN PRN Hypoglycemia Protocol Glucose 15 gm 03/28/24 09:07 Glucose Oral Gel 15 Gm Of Glucse In 37.5 Gm Tube PO PRN PRN Hypoglycemia Protocol Lactated Ringer's 1,000 mls @ 75 mls/hr 03/27/24 18:20 03/29/24 12:36 Lr - Lactated Ringers Iv IV CONT 75 mls/hr .[id number] DANIELLE Administration Dextrose 1,000 mls @ 100 mls/hr 03/28/24 09:07 Dextrose 5% 1,000 Ml IVPB PRN PRN Hypoglycemia Protocol Ceftriaxone Sodium 1 gm in 50 mls @ 100 mls/hr 03/28/24 09:10 03/29/24 10:06 Rocephin 1 Gm/Ns 50 Ml IVPB 100 mls/hr QAM DANIELLE Administration Vancomycin HCl 1,000 mg in 250 mls @ 250 mls/hr 03/29/24 17:00 Vancomycin 1,000 Mg/Ns 250 Ml IVPB Q12H DANIELLE Insulin Aspart 2 - 5 units 03/28/24 12:00 03/29/24 12:37 Insulin Aspart (*Bkc) 100 Units/Ml SUB-Q 2 units TIDWM DANIELLE Administration Protocol Insulin Aspart 1 - 2 units 03/28/24 21:00 03/28/24 21:11 Insulin Aspart (*Bkc) 100 Units/Ml SUB-Q Not Given HS DANIELLE Protocol Levothyroxine Sodium 75 mcg 03/28/24 09:20 03/29/24 05:27 Levothyroxine Sodium 75 Mcg Tablet PO 75 mcg DAILY@0630 DANIELLE Administration Memantine 5 mg 03/28/24 09:20 03/29/24 10:07 Memantine 5 Mg Tablet PO 5 mg Q12HR DANIELLE Administration Senna/Docusate Sodium 1 tab 03/28/24 09:07 Senna/Docusate Sodium Tablet PO DAILY PRN constipation Radiology Results: ITS Impressions Chest X-Ray 03/27/24 15:43 IMPRESSION: 1. Stable interstitial opacities in right lower lung zone and left mid and lower lung zones, likely mild chronic interstitial lung disease. Head CT 03/27/24 16:14 IMPRESSION: No acute intracranial findings. Chest CTA 03/27/24 16:15 IMPRESSION: 1. No pulmonary embolus. 2. Mild chronic interstitial lung disease. Labs Labs: Laboratory Results - last 24 hr 03/29/24 03/29/24 03/29/24 04:36 07:56 11:53 WBC 15.6 H RBC 3.30 L Hgb 10.3 L Hct 31.2 L MCV 94.5 MCH 31.2 MCHC 33.0 RDW 14.5 Plt Count 262 MPV 9.9 Immature Gran % (Auto) 0.5 Neut % (Auto) 84.2 H Lymph % (Auto) 7.6 L [place] % (Auto) 6.3 Eos % (Auto) 1.0 Baso % (Auto) 0.4 Lymph # (Auto) 1.18 [place] # (Auto) 1.0 H Eos # (Auto) 0.2 Baso # (Auto) 0.1 Abs Immat Gran (auto) 0.08 H Absolute Neuts (auto) 13.1 H Absolute Nucleated RBC 0.000 Nucleated RBC % 0.0 Sodium 128 L Potassium 3.7 Chloride 99 Carbon Dioxide 27 Anion Gap 2 L BUN 11 D Creatinine 0.66 L Estim Creat Clear Calc 60 Estimated GFR > 60 Glucose 135 H POC Capillary Glucose 131 H 213 H Lactic Acid 0.8 Calcium 8.4 Magnesium 1.4 L Total Bilirubin 0.5 AST 22 ALT 14 Alkaline Phosphatase 60 Total Protein 6.0 L Albumin 2.8 L Vancomycin Trough 03/29/24 16:04 WBC RBC Hgb Hct MCV MCH MCHC RDW Plt Count MPV Immature Gran % (Auto) Neut % (Auto) Lymph % (Auto) [place] % (Auto) Eos % (Auto) Baso % (Auto) Lymph # (Auto) [place] # (Auto) Eos # (Auto) Baso # (Auto) Abs Immat Gran (auto) Absolute Neuts (auto) Absolute Nucleated RBC Nucleated RBC % Sodium Potassium Chloride Carbon Dioxide Anion Gap BUN Creatinine Estim Creat Clear Calc Estimated GFR Glucose POC Capillary Glucose Lactic Acid Calcium Magnesium Total Bilirubin AST ALT Alkaline Phosphatase Total Protein Albumin Vancomycin Trough 7.7 L Quality VTE Prophylaxis VTE prophylaxis: mechanical ordered
[2024-03-29 17:46] LABS: Glucose Point of Care 206 mg/dl (65-105)
[2024-03-29] MEDS: VANCOMYCIN 1,000 MG/NS 250 ML 1,000 MG/250 ML BAG 250 MG IVPB (18:44)
[2024-03-29] MEDS: droNABinol (*CRX) 2.5 MG CAPSULE 5 MG PO (18:44)
[2024-03-29 19:54] LABS: Glucose Point of Care 206 mg/dl (65-105)
[2024-03-30] VITALS (9 sets, daily range): BP systolic 130–165; BP diastolic 81–90; PULSE 83–91; RESP 16–20; TEMP 36.6–37.5; O2SAT 96–99
[2024-03-30] MEDS: LACTATED RINGERS 1,000 ML 75 ML IV CONT (00:52)
[2024-03-30] MEDS: VANCOMYCIN 1,000 MG/NS 250 ML 1,000 MG/250 ML BAG 250 MG IVPB (04:43)
[2024-03-30] MEDS: LEVOTHYROXINE SODIUM 75 MCG TABLET PO (04:43)
[2024-03-30 05:42] LABS: Estimated CRCL calculation 60 ml/min; Estimated Glomerular Filt Rate > 60
[2024-03-30 05:54] LABS: Iron 35 ug/dL (49-181)
[2024-03-30 06:03] LABS: Percent Iron Saturation 15 % (20-50)
[2024-03-30] MEDS: ENOXAPARIN 40 MG/0.4 ML SYRINGE SUB-Q (10:11)
[2024-03-30] MEDS: ASPIRIN 81 MG ENTERIC TABLET PO (10:11)
[2024-03-30] MEDS: droNABinol (*CRX) 2.5 MG CAPSULE 5 MG PO ×2 (10:11→17:57)
[2024-03-30] MEDS: MEMANTINE 5 MG TABLET PO ×2 (10:11→20:33)
--- NOTE | 2024-03-30 10:55 | PCNFU ---
Nutrition Follow-Up Complete: Unintentional weight loss related most likely to disease state as evidenced by weight loss in EMR, advanced dementia and possible pocketing of foods. Goal:PO intake to remain 75% Wt stable. Pt current nutrition is Diabetic, Ensure compact BID. Nutrition recommendation: Increase Ensure compact to TID, one on one with meals / feeder Last recorded weight is 63.6 kg. Bowel Motility: +BM 03/29 Labs Reviewed: Hct:31.2, Alb:2.8, NA:128, Cr:0.67, Glu:135 Meds Noted: glipizide Skin:WNL Additional Notes: Pt continues on a diabetic diet, intake picked up some per nursing, 50% intake of meals. Nursing states pt likely needs a feeder with meals, noted speech recommends one on one assist as well. Will increase supplement to TID. Monitor diet orders, intake, wt, labs. Follow up in 5 days.
[2024-03-30 11:16] LABS: Glucose Point of Care 196 mg/dl (65-105)
--- NOTE | 2024-03-30 13:06 | PM.IMPN ---
Progress Note: A&P Assessment and Plan (1) Severe sepsis: Code(s): A41.9 - Sepsis, unspecified organism; R65.20 - Severe sepsis without septic shock Status: Acute (2) Urinary tract infection: Qualifiers: Hematuria presence: with hematuria Urinary tract infection type: acute cystitis Qualified Code(s): N30.01 - Acute cystitis with hematuria Code(s): N39.0 - Urinary tract infection, site not specified Status: Acute (3) Acute hypotension: Code(s): I95.9 - Hypotension, unspecified Status: Acute (4) Chronic hyponatremia: Code(s): E87.1 - Hypo-osmolality and hyponatremia Status: Acute (5) Dementia: Qualifiers: Dementia behavioral or psychological symptom: without behavioral, psychotic, or mood disturbance or anxiety Dementia severity: moderate Dementia type: unspecified type Qualified Code(s): F03.B0 - Unspecified dementia, moderate, without behavioral disturbance, psychotic disturbance, mood disturbance, and anxiety Code(s): F03.90 - Unspecified dementia, unspecified severity, without behavioral disturbance, psychotic disturbance, mood disturbance, and anxiety Status: Acute (6) Olecranon fracture: Qualifiers: Encounter type: initial encounter Fracture type: closed Laterality: right Qualified Code(s): S52.021A - Displaced fracture of olecranon process without intraarticular extension of right ulna, initial encounter for closed fracture Code(s): S52.023A - Displaced fracture of olecranon process without intraarticular extension of unspecified ulna, initial encounter for closed fracture Status: Acute (7) Type 2 diabetes mellitus: Qualifiers: Diabetes mellitus nursing home insulin use: unspecified nursing home insulin use status Diabetes mellitus complication status: with kidney complications Diabetes mellitus complication detail: with chronic kidney disease Chronic kidney disease stage: stage 3 (moderate) Chronic kidney disease stage 3 subtype: unspecified whether 3a or 3b Qualified Code(s): E11.22 - Type 2 diabetes mellitus with diabetic chronic kidney disease; N18.30 - Chronic kidney disease, stage 3 unspecified Code(s): E11.9 - Type 2 diabetes mellitus without complications Status: Acute (8) Hypothyroidism: Qualifiers: Hypothyroidism type: unspecified Qualified Code(s): E03.9 - Hypothyroidism, unspecified Code(s): E03.9 - Hypothyroidism, unspecified Status: Acute Plan Hyponatremia Na 128, from 127 Patient has chronic hyponatremia and appears to be at baseline monitor UTI with Sepsis Urine culture positive for GNB WBC improving, WBC 15.6 from 31.3 Continue Rocephin, discontinued Vancomycin monitor Dementia Continue home meds Protein energy malnutriton/FTT Patient has poor oral intake on Protein supplements Dietitian consulted Started on Dronabinol monitor DM2 SSi with Accucheks adjust with clinical course CKD monitor Hypothyroidism continue home meds DVT prophylaxis on Sq Lovenox Subjective Date/time seen: 03/30/24 13:06 Interval history: Comfortable at bedside urine culture positive for GNB, stopped Vanc Review of Systems Review of Systems: ROS unobtainable: Yes unobtainable due to medical condition (Dementia) and unobtainable due to mental status Exam Narrative: Weight 61.7 kg BMI 18 Const: Other: Thin body habitus, no acute distress, sitting up in bed with head of bed at 30? HENMT: Other: Head is normocephalic atraumatic, pupils are equal and reactive, positive conjunctival pallor, no scleral icterus, mild crusting of the left eye limiting patient's ability to open the eye well Eyes: Other: Please see above Neck: Other: No JVD, trachea midline Resp: Other: Clear to auscultation bilaterally, no increased work of breathing Cardio: Other: Regular rate, regular rhythm, 2+ bilateral radial pedal pulses, no JVD GI: Other: Soft, tender in the suprapubic region, normoactive bowel sounds, no organomegaly : Other: Pure wick catheter in place Skin: Other: Generalized pallor, non jaundice Neuro: Other: Alert oriented to person only, speech is clear, no facial asymmetry,, follow simple commands Extrem: Other: Right upper extremity is in a hinged brace with a fixed angle, distal extremity is neurovascularly intact, 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, moves bilateral lower extremities equally Psych: Other: Pleasantly confused, cooperative, poor judgment and insight Objective Data Vital Signs Vital Signs: Vital Signs - 24 hr 03/29/24 14:00 03/29/24 15:10 03/29/24 16:00 Temperature 98.7 F Pulse Rate 74 77 Respiratory Rate 22 H Blood Pressure 131/68 Pulse Oximetry 97 97 Oxygen Delivery Room Air 03/29/24 16:00 03/29/24 16:00 03/29/24 18:00 Temperature Pulse Rate 77 86 Respiratory Rate Blood Pressure Pulse Oximetry 100 Oxygen Delivery Room Air 03/29/24 19:53 03/29/24 20:00 03/29/24 20:00 Temperature 98.1 F Pulse Rate 84 90 90 Respiratory Rate 20 20 Blood Pressure 154/86 H Pulse Oximetry 100 96 Oxygen Delivery Room Air 03/29/24 22:00 03/29/24 23:40 03/30/24 00:00 Temperature 97.6 F Pulse Rate 84 88 85 Respiratory Rate 20 20 Blood Pressure 151/83 H Pulse Oximetry 96 96 Oxygen Delivery Room Air 03/30/24 00:00 03/30/24 02:00 03/30/24 04:00 Temperature Pulse Rate 85 90 84 Respiratory Rate 20 Blood Pressure Pulse Oximetry 96 Oxygen Delivery Room Air 03/30/24 04:00 03/30/24 04:00 03/30/24 06:00 Temperature 99.4 F Pulse Rate 84 91 88 Respiratory Rate 18 Blood Pressure 154/88 H Pulse Oximetry 99 Oxygen Delivery 03/30/24 07:37 03/30/24 08:00 03/30/24 10:00 Temperature 99.5 F Pulse Rate 84 91 83 Respiratory Rate 16 Blood Pressure 165/90 H Pulse Oximetry 96 Oxygen Delivery Intake/Output Intake/Output: Intake & Output 03/27/24 03/28/24 03/29/24 03/30/24 23:59 23:59 23:59 23:59 Intake Total 2550 1780 1595.0 2080 Output Total 50 200 1101 Balance 2500 1580 494.0 2080 Meds/Results Medications: Active Medications Generic Name Dose Route Start Last Admin Trade Name Freq PRN Reason Stop Dose Admin Acetaminophen 650 mg 03/27/24 18:16 Acetaminophen 325 Mg Tablet PO Q4H PRN Mild Pain (1-3) or Fever Aspirin 81 mg 03/28/24 09:15 03/30/24 10:11 Aspirin 81 Mg Enteric Tablet PO 81 mg DAILY DANIELLE Administration Dextrose 12.5 gm 03/28/24 09:07 Dextrose 50% 25 Gm/50 Ml Syringe IV PUSH PRN PRN Hypoglycemia Protocol Dronabinol 5 mg 03/29/24 17:05 03/30/24 10:11 Dronabinol (*Crx) 2.5 Mg Capsule PO 5 mg BID DANIELLE Administration Enoxaparin Sodium 40 mg 03/29/24 09:00 03/30/24 10:11 Enoxaparin 40 Mg/0.4 Ml Syringe SUB-Q 40 mg DAILY DANIELLE Administration Glucagon 1 mg 03/28/24 09:07 Glucagon For Inj 1 Mg Vial IM PRN PRN Hypoglycemia Protocol Glucose 15 gm 03/28/24 09:07 Glucose Oral Gel 15 Gm Of Glucse In 37.5 Gm Tube PO PRN PRN Hypoglycemia Protocol Dextrose 1,000 mls @ 100 mls/hr 03/28/24 09:07 Dextrose 5% 1,000 Ml IVPB PRN PRN Hypoglycemia Protocol Ceftriaxone Sodium 1 gm in 50 mls @ 100 mls/hr 03/28/24 09:10 03/30/24 10:11 Rocephin 1 Gm/Ns 50 Ml IVPB 100 mls/hr QAM DANIELLE Administration Insulin Aspart 2 - 5 units 03/28/24 12:00 03/30/24 12:36 Insulin Aspart (*Bkc) 100 Units/Ml SUB-Q Not Given TIDWM DANIELLE Protocol Insulin Aspart 1 - 2 units 03/28/24 21:00 03/29/24 21:26 Insulin Aspart (*Bkc) 100 Units/Ml SUB-Q 1 units HS DANIELLE Administration Protocol Levothyroxine Sodium 75 mcg 03/28/24 09:20 03/30/24 04:43 Levothyroxine Sodium 75 Mcg Tablet PO 75 mcg DAILY@0630 DANIELLE Administration Memantine 5 mg 03/28/24 09:20 03/30/24 10:11 Memantine 5 Mg Tablet PO 5 mg Q12HR DANIELLE Administration Senna/Docusate Sodium 1 tab 03/28/24 09:07 Senna/Docusate Sodium Tablet PO DAILY PRN constipation Radiology Results: ITS Impressions Chest X-Ray 03/27/24 15:43 IMPRESSION: 1. Stable interstitial opacities in right lower lung zone and left mid and lower lung zones, likely mild chronic interstitial lung disease. Head CT 03/27/24 16:14 IMPRESSION: No acute intracranial findings. Chest CTA 03/27/24 16:15 IMPRESSION: 1. No pulmonary embolus. 2. Mild chronic interstitial lung disease. Labs Labs: Laboratory Results - last 24 hr 03/29/24 03/29/24 03/29/24 16:04 16:39 19:39 Creatinine Estim Creat Clear Calc Estimated GFR POC Capillary Glucose 206 H 206 H Iron TIBC % Saturation Ferritin Vancomycin Trough 7.7 L 03/30/24 03/30/24 05:04 11:11 Creatinine 0.67 L Estim Creat Clear Calc 60 Estimated GFR > 60 POC Capillary Glucose 196 H Iron 35 L TIBC 231 L % Saturation 15 L Ferritin 106.00 Vancomycin Trough Quality VTE Prophylaxis VTE prophylaxis: mechanical ordered
[2024-03-30] MEDS: CEFEPIME 2 GM/NS 50 ML 2 GM/50 ML BAG IVPB (15:40)
[2024-03-30 17:11] LABS: Glucose Point of Care 178 mg/dl (65-105)
[2024-03-30 20:30] LABS: Glucose Point of Care 267 mg/dl (65-105)
[2024-03-30] MEDS: INSULIN ASPART (*BKC) 100 UNITS/ML SUB-Q (20:30)
[2024-03-31] MEDS: CEFEPIME 2 GM/NS 50 ML 2 GM/50 ML BAG IVPB ×3 (00:54→20:00)
[2024-03-31 06:00] VITALS: BP 151/80; PULSE 95; RESP 16; TEMP 36.9; O2SAT 100
[2024-03-31] MEDS: LEVOTHYROXINE SODIUM 75 MCG TABLET PO (06:00)
[2024-03-31 06:43] LABS: Basophils Absolute Auto 0.1 K/mm3 (0.0-0.1); Basophils Percent Auto 0.7 % (0.2-1.2); Eosinophils Absolute Auto 0.3 K/mm3 (0-0.3); Eosinophils Percent Auto 3.9 % (0-4.4); Hematocrit 35.4 % (42.0-52.0); Hemoglobin 11.9 g/dL (14.0-18.0); Immature Granulocyte Absolute 0.04 K/mm3 (0.00-0.031); Immature Granulocyte Percent A 0.5 % (0-0.5); Lymphocytes Absolute Auto 0.98 K/mm3 (0.9-3.2); Lymphocytes Percent Auto 11.7 % (18.3-44.2); Mean Corpuscular HGB Conc 33.6 g/dl (32-36); Mean Corpuscular Hemoglobin 31.6 pg (26-34); Mean Corpuscular Volume 93.9 fl (80-100); Mean Platelet Volume 9.7 fl (7.4-10.4); Monocytes Percent Auto 11.3 % (2.6-8.5); Neutrophils Percent Auto 71.9 % (45.5-73.1); Platelet Count Result 325 k/mm3 (150-375); Red Blood Count 3.77 M/mm3 (4.6-6.20); Red Cell Distribution Width 14.1 % (11.5-14.5); White Blood Count 8.4 K/mm3 (4.5-10.0)
[2024-03-31 07:31] LABS: Alanine Aminotransferase 15 U/L (6-50); Albumin Level 3.1 g/dL (3.5-5.1); Alkaline Phosphatase 68 U/L (38-126); Anion Gap 5 mmol/L (4-12); Aspartate Amino Transferase 19 U/L (17-59); Bilirubin,Total 0.5 mg/dL (0.2-1.3); Blood Urea Nitrogen 10 mg/dL (9-20); Calcium 8.9 mg/dL (8.4-10.2); Carbon Dioxide 26 mmol/L (22-30); Chloride 97 mmol/L (98-107); Estimated CRCL calculation 55 ml/min; Estimated Glomerular Filt Rate > 60; Glucose 171 mg/dL (65-110); Magnesium 1.8 mg/dL (1.6-2.3); Sodium 128 mmol/L (137-145)
[2024-03-31 08:18] LABS: Glucose Point of Care 181 mg/dl (65-105)
[2024-03-31] MEDS: MEMANTINE 5 MG TABLET PO ×2 (08:22→19:59)
[2024-03-31] MEDS: ENOXAPARIN 40 MG/0.4 ML SYRINGE SUB-Q (08:23)
[2024-03-31] MEDS: ASPIRIN 81 MG ENTERIC TABLET PO (08:24)
[2024-03-31 12:05] LABS: Glucose Point of Care 213 mg/dl (65-105)
[2024-03-31] MEDS: INSULIN ASPART (*BKC) 100 UNITS/ML SUB-Q (12:07)
[2024-03-31 14:00] VITALS: BP 147/96; PULSE 91; RESP 20; TEMP 36.5; O2SAT 99
--- NOTE | 2024-03-31 14:47 | P.DS_ITS ---
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 Patient was initially noted to be hypotensive with blood pressures of 67/39 and tachycardic he was afebrile and maintaining oxygen saturations on room air. Patient received 30 mL/kilos bolus in the ER with marked improvement in his blood pressures. He was initially given empiric antibiotic therapy with cefepime and vancomycin. Review of patient's prior cultures demonstrated the grew out Enterococcus UTI in the [place] [address] sodium of 127 which is similar to prior values, lactic acid of 2. His CT of the head was negative for acute process and CT of the chest was negative for pulmonary embolism but had chronic interstitial changes. X-ray demonstrated chronic interstitial lung disease with pneumonia being less likely. Patient's blood pressure stabilized after fluid boluses and his heart rate normalized as well. Blood pressures were 152/60 systolic and the patient was more alert but still confused. The patient was able to tell me his name at the time of my evaluation and had no complaints. He has a brace on his right arm for which she is post to follow-up for an olecranon fracture with orthopedic surgery next week.. Patient was admitted to the IMU in the setting. Initially started on Rocephin and Vanc for history of enterococcus UTI, however urine culture grew pseudomonas sensitive to Cefepime. Abx were changed accordingly, today he is discharged to [facility] where he will complete 5 days of Cefepime. Continue other home meds. Also Mirtazapine x7 days was added to stimulate appetite. F/u with PCP in 3-5 days. Time Spent with Patient Time attestation: Total time spent providing and/or coordinating discharge services: DS: Data Data Completed and Pending Labs on day of discharge: Labs from last 24 hours 03/31/24 03/31/24 03/31/24 11:58 08:00 05:56 WBC 8.4 RBC 3.77 L Hgb 11.9 L Hct 35.4 L MCV 93.9 MCH 31.6 MCHC 33.6 RDW 14.1 Plt Count 325 MPV 9.7 Immature Gran % (Auto) 0.5 Neut % (Auto) 71.9 Lymph % (Auto) 11.7 L [place] % (Auto) 11.3 H Eos % (Auto) 3.9 Baso % (Auto) 0.7 Lymph # (Auto) 0.98 [place] # (Auto) 1.0 H Eos # (Auto) 0.3 Baso # (Auto) 0.1 Abs Immat Gran (auto) 0.04 H Absolute Neuts (auto) 6.0 Absolute Nucleated RBC 0.000 Nucleated RBC % 0.0 Sodium 128 L Potassium 4.0 Chloride 97 L Carbon Dioxide 26 Anion Gap 5 BUN 10 Creatinine 0.77 Estim Creat Clear Calc 55 Estimated GFR > 60 Glucose 171 H POC Capillary Glucose 213 H 181 H Calcium 8.9 Magnesium 1.8 Total Bilirubin 0.5 AST 19 ALT 15 Alkaline Phosphatase 68 Total Protein 6.0 L Albumin 3.1 L 03/30/24 03/30/24 20:20 16:50 WBC RBC Hgb Hct MCV MCH MCHC RDW Plt Count MPV Immature Gran % (Auto) Neut % (Auto) Lymph % (Auto) [place] % (Auto) Eos % (Auto) Baso % (Auto) Lymph # (Auto) [place] # (Auto) Eos # (Auto) Baso # (Auto) Abs Immat Gran (auto) Absolute Neuts (auto) Absolute Nucleated RBC Nucleated RBC % Sodium Potassium Chloride Carbon Dioxide Anion Gap BUN Creatinine Estim Creat Clear Calc Estimated GFR Glucose POC Capillary Glucose 267 H 178 H Calcium Magnesium Total Bilirubin AST ALT Alkaline Phosphatase Total Protein Albumin Preliminary micro results at discharge 03/27/24 15:26 Blood Culture - Preliminary Blood 03/27/24 15:21 Blood Culture - Preliminary Blood Discharge Plan Discharge Attending physician on discharge: Ander Diaz Discharging Clinician: Ander Diaz Anticipated Discharge Date/Time: 03/31/24 14:40 Patient Disposition: SNF Activity: as tolerated Diet: as tolerated Patient Language: Icelandic Stand Alone Forms: General Discharge Information Discharge Medications: New mirtazapine [Remeron] 15 mg Tablet 15 mg PO HS 6 Days Qty: 6 0RF cefepime 2 gram Recon Soln 2 g IV Q12HR 5 Days Qty: 20 0RF Continued levothyroxine 75 mcg tablet 75 mcg PO DAILY glipizide 5 mg tablet 5 mg PO BID memantine 5 mg tablet 5 mg PO BID aspirin [Adult Low Dose Aspirin] 81 mg Tablet,Delayed Release (Dr/Ec) 81 mg PO DAILY sennosides-docusate sodium [Senna Plus] 8.6-50 mg tablet 1 tab-cap PO DAILY PRN (Reason: constipation) Date of admission: 03/27/24 18:16 Primary Care Provider: UNKNOWN,DOCTOR Admitting Provider: Christian Gates Attending physician on admission: Christian Gates Condition: Serious
--- NOTE | 2024-03-31 15:35 | PM.CNOR ---
Assessment and Plan Assessment and plan (1) Olecranon fracture: Qualifiers: Encounter type: subsequent encounter Fracture type: closed Laterality: right Code(s): S52.023A - Displaced fracture of olecranon process without intraarticular extension of unspecified ulna, initial encounter for closed fracture Status: Acute Plan Pleasantly demented elderly gentleman admitted with UTI sepsis. He is 8 weeks status post right olecranon fracture. I was asked to see him in house, as he was due for his outpatient follow-up. Displaced olecranon fracture was treated conservatively. He denies pain. He has been using a hinged brace locked. On examination the elbow has a range of motion 40? to 115? without pain. Mild elbow crepitus. No instability. He can fire the triceps, but exam limited by patient dementia. Distal neurovascular status intact. Shoulder motion good but somewhat limited. Previous rotator cuff scar noted. He may discontinue the brace. Activity as tolerated. Obtain final x-rays now before he is discharged. He may be discharged before the radiographs are read. I will call his daughter with the results and any follow-up. History of Present Illness HPI Consult date: 03/31/24 Chief complaint: Sepsis, Urinary tract infection ON LICENSE OF [facility] Past Medical History Medical History (Updated 03/31/24 @ 15:36 by Lico Oconnell MD) Gangrenous cholecystitis Chronic kidney disease, stage 3 Baseline creatinine between 1.2 and 1.30. GFR is typically in the high 40s or lower 50s. Type 2 diabetes mellitus Hypothyroidism Depression Dementia Surgical History Surgical History (Updated 03/29/24 @ 08:27 by Dannielle Gu DO) Hx laparoscopic cholecystectomy 07/10/21 History of foot surgery Debridement of diabetic foot ulcer. History of bilateral cataract extraction Family History Family History Other Unknown family medical history Social History Social History Social History: Healthcare power of collections attorney: Cassie Granados, daughter. Code status: Full code. Smoking status: Never smoker Smokeless tobacco user: chewing tobacco Additional smoking assessment comments: Quit chewing tobacco in December 2020. Alcohol intake: never Substance use: never Substance use type: does not use Do You Feel Safe in your Home?: Yes Lack of Transportation: No Lack of Food: Never True Current Housing: I Have Housing Concerned About Future Housing: No Difficulty Paying Gas/Electric Bills: No Difficulty Paying for Meds: No Currently Unemployed: No Education: High School Diploma/GED Difficulty w/ Childcare or Family Care: No Living arrangements: with family Additional living arrangements comments: Lives with his daughter Cassie in [place]. 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 Gender identity (if verbalized by the patient): Male Sexual Orientation (if Verbalized by the Patient): Straight or Heterosexual Spiritual care concerns: No Meds Home Medications and Allergies Home Medications ?Medication ?Instructions ?Recorded ?Confirmed ?Type glipizide 5 mg tablet 5 mg PO BID 10/04/19 03/27/24 History levothyroxine 75 mcg tablet 75 mcg PO DAILY 10/04/19 03/27/24 History memantine 5 mg tablet 5 mg PO BID 10/04/19 03/27/24 History aspirin 81 mg tablet,delayed 81 mg PO DAILY 11/01/19 03/27/24 History release (Adult Low Dose Aspirin) sennosides 8.6 mg-docusate sodium 1 tab-cap PO DAILY PRN constipation 03/27/24 03/27/24 History 50 mg tablet (Senna Plus) cefepime 2 gram solution for 2 g IV Q12HR 5 days #20 grams 03/31/24 Rx injection mirtazapine 15 mg tablet (Remeron) 15 mg PO HS 6 days #6 tabs 03/31/24 Rx Allergies Allergy/AdvReac Type Severity Reaction Status Date / Time ibuprofen Allergy Rash Verified 03/27/24 14:09 Sulfa (Sulfonamide Allergy Rash Verified 03/27/24 14:09 Antibiotics) Vital Signs Vital Signs - 24 hr 03/30/24 16:00 03/30/24 20:00 03/30/24 22:00 Temperature 36.6 C 36.8 C Pulse Rate 88 88 Respiratory Rate 18 18 Blood Pressure 130/81 148/87 H Pulse Oximetry 99 99 Oxygen Delivery Room Air 03/31/24 06:00 03/31/24 08:35 Temperature 36.9 C Pulse Rate 95 Respiratory Rate 16 Blood Pressure 151/80 H Pulse Oximetry 100 Oxygen Delivery Room Air Results Labs 03/31/24 05:56 03/31/24 05:56 Labs: Abnormal lab results 03/30/24 03/30/24 03/31/24 Range/Units 16:50 20:20 05:56 RBC 3.77 L (4.6-6.20) M/mm3 Hgb 11.9 L (14.0-18.0) g/dL Hct 35.4 L (42.0-52.0) % Lymph % (Auto) 11.7 L (18.3-44.2) % [place] % (Auto) 11.3 H (2.6-8.5) % [place] # (Auto) 1.0 H (0.1-0.6) K/mm3 Abs Immat Gran (auto) 0.04 H (0.00-0.031) K/mm3 Sodium 128 L (137-145) mmol/L Chloride 97 L (98-107) mmol/L Glucose 171 H (65-110) mg/dL POC Capillary Glucose 178 H 267 H (65-105) mg/dl Total Protein 6.0 L (6.3-8.2) g/dL Albumin 3.1 L (3.5-5.1) g/dL 03/31/24 03/31/24 Range/Units 08:00 11:58 RBC (4.6-6.20) M/mm3 Hgb (14.0-18.0) g/dL Hct (42.0-52.0) % Lymph % (Auto) (18.3-44.2) % [place] % (Auto) (2.6-8.5) % [place] # (Auto) (0.1-0.6) K/mm3 Abs Immat Gran (auto) (0.00-0.031) K/mm3 Sodium (137-145) mmol/L Chloride (98-107) mmol/L Glucose (65-110) mg/dL POC Capillary Glucose 181 H 213 H (65-105) mg/dl Total Protein (6.3-8.2) g/dL Albumin (3.5-5.1) g/dL H & H 03/27/24 03/28/24 03/29/24 Range/Units 15:09 04:46 04:36 Hgb 13.4 L 10.1 L D 10.3 L (14.0-18.0) g/dL Hct 39.1 L 30.0 L 31.2 L (42.0-52.0) % 03/31/24 Range/Units 05:56 Hgb 11.9 L (14.0-18.0) g/dL Hct 35.4 L (42.0-52.0) % Coagulation 03/27/24 Range/Units 15:09 INR 1.1 All other labs normal.
[2024-03-31 16:27] LABS: Glucose Point of Care 200 mg/dl (65-105)
[2024-03-31] MEDS: MIRTAZAPINE 15 MG TABLET PO (19:59)
[2024-03-31] MEDS: ACETAMINOPHEN 325 MG TABLET 650 MG PO (19:59)
[2024-03-31 22:00] VITALS: BP 150/80; PULSE 90; RESP 20; TEMP 36.6; O2SAT 99
[2024-03-31 22:45] LABS: Glucose Point of Care 193 mg/dl (65-105)
[2024-04-01] MEDS: LEVOTHYROXINE SODIUM 75 MCG TABLET PO (05:29)
[2024-04-01 06:00] VITALS: BP 123/72; PULSE 87; RESP 20; TEMP 36.2; O2SAT 98
[2024-04-01] MEDS: CEFEPIME 2 GM/NS 50 ML 2 GM/50 ML BAG IVPB (08:21)
[2024-04-01] MEDS: ENOXAPARIN 40 MG/0.4 ML SYRINGE SUB-Q (08:22)
[2024-04-01] MEDS: ASPIRIN 81 MG ENTERIC TABLET PO (08:22)
[2024-04-01] MEDS: MEMANTINE 5 MG TABLET PO (08:22)
[2024-04-01 08:26] LABS: Glucose Point of Care 168 mg/dl (65-105)
[2024-04-01 11:45] LABS: Glucose Point of Care 176 mg/dl (65-105)
[2024-04-01 14:00] VITALS: BP 125/71; PULSE 90; RESP 16; TEMP 36.8; O2SAT 99
--- OUTSIDE RECORDS SUMMARY | 2024-04-03 00:55 | XMS_ITS | Continuity of Care Document ---
Author Organization [facility] Address [address] [place] [address] Care Team Providers Care Single Resource Boss Name Role Phone PHYSICIAN NOT ON STAFF, NONSTAFF Primary Care Provider Unavailable MD Charlie Drummond Emergency Provider UNKNOWN, DOCTOR Primary Care Provider Unavail MD Nicolette Harding Emergency Provider Markie, Chris Mcpherson Primary Care Provider [phone] MD Karina Phillips Emergency Provider Care Teams Patient Care Team Team Status: Active Member Role Status Dates NONSTAFF PHYSICIAN NOT ON STAFF Primary Care Provid er Active Visit Care Team Team Status: Inactive Member Role Status Dates DOCTOR UNKNOWN Primary Care Provider Active Charlie Drummond MD Emergency Provider Active Visit Care Team Team Status: Inactive Member Role Status Dates Nicolette Arita MD Emergency Provider Active Markie Carrasquillo Primary Care Provider Active Patient Care Team Team Status: Inactive Member Role Status Dates NONSTAFF PHYSICIAN NOT ON STAFF Primary Care Provid er Active Karina Phillips MD Emergency Provider Active Visit Care Team Team Status: Inactive Member Role Status Dates NONSTAFF PHYSICIAN NOT ON STAFF Primary Care Provid er Active Charlie Drummond MD Emergency Provider Active Chief Complaint and Reason for Visit Chief Complaint near syncope ?hypotensive R wrist swelling fall Allergies, Adverse Reactions, Alerts Allergen Type Severity Reaction Last Updated Verified Status ibuprofen Allergy Unknown Rash January 22, 2024 3:58pm Yes Active Sulfa (Sulfonamide Antibiotics) Allergy Unknown Rash January 21 3:58pm Yes Active Social History Smoking Status Status Start Date End Date Date of Observa tion Never smoked tobacco (finding) March 21, 2022 2:25am Observation Status Observation Response Date of Response Gender Identity (if Verbaliz ed by the Patient) Male July 10, 2021 2:35pm Sexual Orientation (if Verba lized by the Patient) Straight or Heterosexual July 10, 2021 2:35pm alcohol intake never March 21, 2 022 3:25am Substance use type does not use February 3:25am Additional Data Assigned Sex Male Family History Relationship Condition Age at Onset Recorded Date/T melany Not Specified Unknown family medical history Unknown Problems Active Problems Medical Problem Onset Date Status Acute kidney injury Active COVID-19 Active Person under investigation for COVID-19 Active Encounter for surgical after care following surgery on the digestive system Active Fever Active Convulsion, febrile Active Diabetes mellitus Active Type 2 diabetes mellitus Active Chronic kidney disease, stage 3 Active Closed fracture of right elbow A ctive Dementia Active Hypothyroid Active Hypothyroidism Active Physical deconditioning Active Sepsis Active Altered mental status Active Pneumonia Active Acute cholecystitis March 25, 2022 Active Gangrenous cholecystitis Active Dehydration Active Inactive/Resolved Problems Medical Problem Onset Date Status Orthostatic lightheadedness Reso lved Localized swelling of right forearm Resolved Hematoma of occipital region of scalp Resolved Onychomycosis Resolved Dementia Resolved Osteoarthritis Resolved Generalized muscle weakness Reso lved Near syncope Resolved Weakness Resolved Acute UTI Resolved Avulsion of nail Resolved Fall (on)(from) sidewalk curb, initial encounter Resolved Laceration of toe of right foot Resolved Cellulitis of foot, right Resolv ed Acute lumbar myofascial strain R esolved Medications Medication Status Dose Units Route Directions Qty Days St art Date End Date Instructions Levothyroxine Active 75 MCG PO DAILY Colin y 2019 12:00am Glipizide Active 5 MG PO TWICE A DAY Ju ly 2019 12:00am Memantine Active 5 MG PO TWICE A DAY Ju ly 2019 12:00am Loratadine Active 10 MG PO DAILY October 04, 2019 12:00am Aspirin (Adult Low Dose Aspirin) 81 mg Tablet,Delayed Release (Dr/Ec) Active 81 MG PO DAILY November 01, 2019 12:00am Cephalexin Active 500 MG PO Q8H 21 7 Octobe r 2022 12:00am Nitrofurantoin Monohyd/M-Bridget t (Macrobid) 100 mg capsule Active 100 MG PO Q12H 10 5 February 23, 2023 1:00am must administer with a meal/food Immunizations Immunization Event Date Not Given Reason Dose Number Right Of Way Supervisor Lot Number Vaccine Information Statement (VIS) Detail SARS-COV-2 (COVID-19) Moderna June 12, 2020 SARS-COV-2 (COVID-19) a July 10, 2020 Tetanus, Diphtheria, Pertussis (Tdap) October 04, 2019 [id number] Relevant Diagnostic Tests and/or Laboratory Data Laboratory Results Test Date/Time Result Interpretation Reference Range Result Comment Performing Site White Blood Count August 27, 2023 9:42pm 6.5 K/mm3 4.5-10.0 [facility] [id number] [address] [place] [address] 77218 White Blood Count September 01, 2023 1:48pm 6.1 K/mm3 4.5-10.0 [facility] [id number] [address] [place] [address] 41184 Red Blood Count August 27, 2023 9:42pm 4.36 M/mm3 Below low normal 4.6-6.20 [facility] [id number] [address] [place] [address] 68283 Red Blood Count September 01, 2023 1:48pm 4.22 M/mm3 Below low normal 4.6-6.20 [facility] [id number] [address] [place] [address] 47876 Hemoglobin August 27, 2023 9:42pm 14.6 g/dL 14.0-18.0 [facility] [id number] [address] [place] [address] 70867 Hemoglobin September 01, 2023 1:48pm 14.1 g/dL 14.0-18.0 [facility] [id number] [address] [place] [address] 14822 Hematocrit August 27, 2023 9:42pm 41.5 % Below low normal 42.0-52.0 [facility] [id number] [address] [place] [address] 94497 Hematocrit September 01, 2023 1:48pm 40.9 % Below low normal 42.0-52.0 [facility] [id number] [address] [place] [address] 34107 Mean Corpuscular Volume August 27, 2023 9:42pm 95.2 fL 80-100 [facility] [id number] [address] [place] [address] 87453 Mean Corpuscular Volume September 01, 2023 1:48pm 96.9 fL 80-100 [facility] [id number] [address] [address] Mean Corpuscular Hemoglobin August 27, 2023 9:42pm 33.5 pg 26-34 [facility] [id number] [address] [place] [address] 17006 Mean Corpuscular Hemoglobin September 01, 2023 1:48pm 33.4 pg 26-34 [facility] [id number] [address] [place] [address] 21359 Mean Corpuscular Hemoglobin Concent August 27, 2023 9:42pm 35.2 g/dL -36 [facility] [id number] [address] [address] Mean Corpuscular Hemoglobin Concent September 01, 2023 1:48pm 34.5 g/dL -36 [facility] [id number] [address] [address] Red Cell Distribution Width August 27, 2023 9:42pm 13.0 % 11.5-14.5 [facility] [id number] [address] [address] Red Cell Distribution Width September 01, 2023 1:48pm 12.9 % 11.5-14.5 [facility] [id number] [address] [address] Platelet Count August 27, 2023 9:42pm 231 k/mm3 150-375 [facility] [id number] [address] [address] Platelet Count September 01, 2023 1:48pm 228 k/mm3 150-375 [facility] [id number] [address] [address] Mean Platelet Volume August 27, 2023 9:42pm 10.3 fL 7.4-10.4 [facility] [id number] [address] [address] Mean Platelet Volume September 01, 2023 1:48pm 10.1 fL 7.4-10.4 [facility] [id number] [address] [address] Nucleated Red Blood Cells % August 27, 2023 9:42pm 0.0 % 0.0-0.2 [facility] [id number] [address] [address] Nucleated Red Blood Cells % September 01, 2023 1:48pm 0.0 % 0.0-0.2 [facility] [id number] [address] [place] [address] 28716 Immature Granulocyte % (Auto) August 27, 2023 9:42pm 0.3 % 0-0.5 [facility] [id number] [address] [place] [address] 09950 Immature Granulocyte % (Auto) September 01, 2023 1:48pm 0.3 % 0-0.5 [facility] [id number] [address] [place] [address] 92290 Neutrophils (%) (Auto) August 27, 2023 9:42pm 66.2 % 45.5-73.1 [facility] [id number] [address] [place] [address] 08759 Neutrophils (%) (Auto) September 01, 2023 1:48pm 57.6 % 45.5-73.1 [facility] [id number] [address] [place] [address] 20581 Lymphocytes (%) (Auto) August 27, 2023 9:42pm 18.6 % 18.3-44.2 [facility] [id number] [address] [place] [address] 84748 Lymphocytes (%) (Auto) September 01, 2023 1:48pm 24.8 % 18.3-44.2 [facility] [id number] [address] [place] [address] 17197 Monocytes (%) (Auto) August 27, 2023 9:42pm 11.1 % Above high normal 2.6-8.5 [facility] [id number] [address] [place] [address] 56913 Monocytes (%) (Auto) September 01, 2023 1:48pm 12.7 % Above high normal 2.6-8.5 [facility] [id number] [address] [place] [address] 67379 Eosinophils (%) (Auto) August 27, 2023 9:42pm 2.9 % 0-4.4 [facility] [id number] [address] [place] [address] 93227 Eosinophils (%) (Auto) September 01, 2023 1:48pm 3.6 % 0-4.4 [facility] [id number] [address] [place] [address] 07069 Basophils (%) (Auto) August 27, 2023 9:42pm 0.9 % 0.2-1.2 [facility] [id number] [address] [place] [address] 61826 Basophils (%) (Auto) September 01, 2023 1:48pm 1.0 % 0.2-1.2 [facility] [id number] [address] [place] [address] 83689 Nucleated RBC Absolute Count (auto) August 27, 2023 9:42pm 0.000 K/mm3 0.0-0.012 [facility] [id number] [address] [place] [address] 92817 Nucleated RBC Absolute Count (auto) September 01, 2023 1:48pm 0.000 K/mm3 0.0-0.012 [facility] [id number] [address] [place] [address] 16721 Absolute Immature Granulocyte (auto August 27, 2023 9:42pm 0.02 K/mm3 0.00-0.031 [facility] [id number] [address] [place] [address] 69286 Absolute Immature Granulocyte (auto September 01, 2023 1:48pm 0.02 K/mm3 0.00-0.031 [facility] [id number] [address] [place] [address] 63439 Absolute Neutrophils (auto) August 27, 2023 9:42pm 4.3 K/mm3 1.3-6.7 [facility] [id number] [address] [place] [address] 72604 Absolute Neutrophils (auto) September 01, 2023 1:48pm 3.5 K/mm3 1.3-6.7 [facility] [id number] [address] [place] [address] 48714 Lymphocytes # (Auto) August 27, 2023 9:42pm 1.21 K/mm3 0.9-3.2 [facility] [id number] [address] [place] [address] 70153 Lymphocytes # (Auto) September 01, 2023 1:48pm 1.52 K/mm3 0.9-3.2 [facility] [id number] [address] [place] [address] 94692 Monocytes # (Auto) August 27, 2023 9:42pm 0.7 K/mm3 Above high normal 0.1-0.6 [facility] [id number] [facility] [address] [address] Monocytes # (Auto) September 01, 2023 1:48pm 0.8 K/mm3 Above high normal 0.1-0.6 [facility] [id number] [facility] [address] [address] Eosinophils # (Auto) August 27, 2023 9:42pm 0.2 K/mm3 0-0.3 [facility] [id number] [address] [place] [address] 96676 Eosinophils # (Auto) September 01, 2023 1:48pm 0.2 K/mm3 0-0.3 [facility] [id number] [address] [place] [address] 14479 Basophils # (Auto) August 27, 2023 9:42pm 0.1 K/mm3 0.0-0.1 [facility] [id number] [address] [place] [address] 30427 Basophils # (Auto) September 01, 2023 1:48pm 0.1 K/mm3 0.0-0.1 [facility] [id number] [address] [place] [address] 60860 Urine Color September 01, 2023 1:48pm Yellow Yellow [facility] [id number] [address] [place] [address] 40604 Urine Appearance September 01, 2023 1:48pm Clear Clear [facility] [id number] [address] [place] [address] 55855 Urine pH September 01, 2023 1:48pm 7.0 5.0-9.0 [facility] [id number] [address] [place] [address] 05393 Urine Specific Dennis September 01, 2023 1:48pm 1.010 1.001-1.03 5 [facility] [id number] [address] [place] [address] 16076 Urine Protein September 01, 2023 1:48pm Negative mg/dL Negative [facility] [id number] [address] [place] [address] 99165 Urine Glucose (UA) September 01, 2023 1:48pm Negative mg/dL Negative [facility] [id number] [address] [place] [address] 16638 Urine Ketones September 01, 2023 1:48pm Negative mg/dL Negative [facility] [id number] [address] [place] [address] 06751 Urine Blood (Manual) September 01, 2023 1:48pm Negative Negative [facility] [id number] [address] [address] Urine Nitrate September 01, 2023 1:48pm Negative Negative [facility] [id number] [address] [address]51 Urine Bilirubin September 01, 2023 1:48pm Negative Negative [facility] [id number] [address] [address] Urine Urobilinogen September 01, 2023 1:48pm 0.2 mg/dL <2.0 [facility] [id number] [address] [address]223 Urine Leukocyte Esterase (Reflex) September 01, 2023 1:48pm Negative BRENT/UL Negative [facility] [id number] [address] [address]233 Sodium Level August 27, 2023 9:42pm 127 mmol/L Below low normal 137-145 [facility] [id number] [address] [address] Sodium Level September 01, 2023 1:48pm 128 mmol/L Below low normal 137-145 [facility] [id number] [address] [address] Potassium Level August 27, 2023 9:42pm 4.3 mmol/L 3.4-5.0 [facility] [id number] [address] [address]36 Potassium Level September 01, 2023 1:48pm 4.5 mmol/L 3.4-5.0 [facility] [id number] [address] [address] Chloride Level August 27, 2023 9:42pm 96 mmol/L Below low normal 98-107 [facility] [id number] [address] [address] Chloride Level September 01, 2023 1:48pm 96 mmol/L Below low normal 98-107 [facility] [id number] [address] [address] Carbon Dioxide Level August 27, 2023 9:42pm 23 mmol/L [facility] [id number] [address] [address] Carbon Dioxide Level September 01, 2023 1:48pm 24 mmol/L [facility] [id number] [address] [address] Anion Gap August 27, 2023 9:42pm 8 mmol/L 07-01 [facility] [id number] [address] [address] Anion Gap September 01, 2023 1:48pm 8 mmol/L 07-01 [facility] [id number] [address] [place] [address] 60819 Blood Urea Nitrogen August 27, 2023 9:42pm 22 mg/dL Above high normal 12-09 [facility] [id number] [address] [place] [address] 39211 Blood Urea Nitrogen September 01, 2023 1:48pm 19 mg/dL 12-09 [facility] [id number] [address] [place] [address] 34118 Creatinine August 27, 2023 9:42pm 1.10 mg/dL 0.7-1.3 [facility] [id number] [address] [place] [address] 14069 Creatinine September 01, 2023 1:48pm 1.00 mg/dL 0.7-1.3 [facility] [id number] [address] [place] [address] 34268 Estimat Glomerular Filtration Rate August 27, 2023 9:42pm > 60 >59 > OR = 60 ml/min/1.73 square metersThe MDRD formula used to calculate the eGFR result has not been validated in patients > 70 years of age. [facility] [id number] [address] [place] [address] 28065 Estimat Glomerular Filtration Rate September 01, 2023 1:48pm > 60 >59 > OR = 60 ml/min/1.73 square metersThe MDRD formula used to calculate the eGFR result has not been validated in patients > 70 years of age. [facility] [id number] [address] [place] [address] 26585 Estimated Creatinine Clearance Calc August 27, 2023 9:42pm 40 mL/min For use in prescription drug dose determination only. Reference ranges have not been establishe for this calculation. [facility] [id number] [address] [place] [address] 55097 Estimated Creatinine Clearance Calc September 01, 2023 1:48pm 45 mL/min For use in prescription drug dose determination only. Reference ranges have not been establishe for this calculation. [facility] [id number] [address] [place] [address] 95971 Glucose Level August 27, 2023 9:42pm 220 mg/dL Above high normal 65-110 [facility] [id number] [address] [address] Glucose Level September 01, 2023 1:48pm 131 mg/dL Above high normal 65-110 [facility] [id number] [address] [address] Calcium Level August 27, 2023 9:42pm 8.8 mg/dL 8.4-10.2 [facility] [id number] [address] [address] Calcium Level September 01, 2023 1:48pm 9.0 mg/dL 8.4-10.2 [facility] [id number] [address] [address] Total Bilirubin August 27, 2023 9:42pm 0.6 mg/dL 0.2-1.3 [facility] [id number] [address] [address] Total Bilirubin September 01, 2023 1:48pm 0.7 mg/dL 0.2-1.3 [facility] [id number] [address] [address] Aspartate Amino Transf (AST/SGOT) August 27, 2023 9:42pm 20 U/L 17-59 [facility] [id number] [address] [address]956 Aspartate Amino Transf (AST/SGOT) September 01, 2023 1:48pm 22 U/L 17-59 [facility] [id number] [address] [address] Alanine Aminotransferase (ALT/SGPT) August 27, 2023 9:42pm 13 U/L 6-50 [facility] [id number] [address] [address] Alanine Aminotransferase (ALT/SGPT) September 01, 2023 1:48pm 13 U/L 6-50 [facility] [id number] [address] [address] Total Protein August 27, 2023 9:42pm 7.0 g/dL 6.3-8.2 [facility] [id number] [address] [address] Total Protein September 01, 2023 1:48pm 7.0 g/dL 6.3-8.2 [facility] [id number] [address] [place] [address] 55873 Albumin August 27, 2023 9:42pm 4.2 g/dL 3.5-5.1 [facility] [id number] [address] [place] [address] 40542 Albumin September 01, 2023 1:48pm 3.9 g/dL 3.5-5.1 [facility] [id number] [address] [place] [address] 83697 Alkaline Phosphatase August 27, 2023 9:42pm 71 U/L 38-126 [facility] [id number] [address] [place] [address] 87550 Alkaline Phosphatase September 01, 2023 1:48pm 61 U/L 38-126 [facility] [id number] [address] [place], [place] [address] Diagnostic Imaging Reports Author Torito [facility] January 22, 2024 4:29pm Report Date/Time January 22, 2024 4 :31pm [place] [id number] XRay Report Signed Patient: Mk Sanches : 1935 MR#: [id number] Age: 88 Acct:[id number] Loc: [facility] ADM Date: 01/22/[address]: Ordering Physician: Karina Phillips MD Date of Service: 01/22/24 Procedure(s): XR elbow RT min 3V Accession Number(s): [id number] cc: Karina Phillips MD~ XR elbow RT min 3V DATE: 01/22/2024 16:27 INDICATION: Fall, swelling, limited range of motion TECHNIQUE: 4 views COMPARISON: None FINDINGS: There is an up to 1.4 cm proximally displaced intra-articular fractureof the olecranon process of the proximal ulna. No other fracture or dislocation is evident. IMPRESSION: Proximally distracted intra-articular fracture of olecranon process Reviewed, dictated and finalized at location A. Dictated By: Torito Short MD 01/22/241627 Signed By: <Electronically signed by Torito Short MD in [place]> 01/22/241628 Vital Signs Vital Reading Result Reference Range Collection Date/Time Height 64 [in_i] August 27, 2023 9:28pm Weight 77.60 kg August 27, 2023 9:28pm Body Temperature 97.8 [degF] 97.6-99.6 August 26, 2 024 9:28pm Heart Rate 81 /min 60-100 August 28, 2023 2:00am Respiratory rate 17 /min -August 27, 2 024 2:00am Oxygen saturation by Pulse oximetry 97 % 90-100 August 28, 2023 1:31a m BP Systolic 141 mm[Hg] 100-140 August 28, 2023 1:31am BP Diastolic 94 mm[Hg] 60-90 August 28, 2023 1:31am Height 68 [in_i] September 01, 2023 1:57pm Weight 69.00 kg September 01, 2023 1:57pm Body Temperature 97.9 [degF] 97.6-99.6 September 01, 2023 4:49pm Heart Rate 80 /min 60-100 September 01, 2023 4:49pm Respiratory rate 18 /min -September 01, 2023 4:49pm Oxygen saturation by Pulse oximetry 98 % 90-100 September 01, 2023 4:49 pm BP Systolic 121 mm[Hg] 100-140 September 01, 2023 4:49pm BP Diastolic 76 mm[Hg] 60-90 September 01, 2023 4:49pm Height 62 [in_i] September 27, 2023 5:12pm Weight 69.00 kg September 27, 2023 5:12pm Body Temperature 97.8 [degF] 97.6-99.6 September 26, 024 5:12pm Heart Rate 58 /min 60-100 September 27, 2023 11:56pm Respiratory rate 15 /min -September 26, 024 11:56pm Oxygen saturation by Pulse oximetry 97 % 90-100 September 27, 2023 11:56 pm BP Systolic 132 mm[Hg] 100-140 September 27, 2023 11:56pm BP Diastolic 88 mm[Hg] 60-90 September 27, 2023 11:56pm Height 63 [in_i] January 21, 2 024 3:56pm Weight 68.00 kg January 21, 024 3:56pm Heart Rate 77 /min 60-100 January 21, 024 5:45pm Respiratory rate 14 /min 12-January 5:45pm Oxygen saturation by Pulse oximetry 97 % 90-100 January 22, 2024 5 :45pm BP Systolic 112 mm[Hg] 100-140 January 21, 2 024 5:45pm BP Diastolic 66 mm[Hg] 60-90 January 21, 2 024 5:45pm Insurance Providers Guarantor Mk Sanches Address [address] [place] [address] Contact Info. Home Phone: Payer Policy Id Coverage Id Subscriber's Name Subscriber Id Effective Date Expiration Date Self Pay Self N/A [facility] [id number] [facility] [place] [facility] [id number] 2018 Encounters Encounter Location(s) Arrival/Admit Date [facility]art [facility] August 27, 2023 9:22pm August 28, 2023 2:15am [facility] September 01, 2023 1:28pm September 01, 2023 5:24pm [facility] September 27, 2023 4:56pm September 28, 2023 12:15am null [facility] Emergency Department January 22, 2024 3:55pm January 22, 2024 6:31pm null Plan of Treatment Future Tests Future scheduled test information is unavailable Pending Tests Pending diagnostic test information is unavailable Future Visits Future appointment information is unavailable Referrals to Other Providers Reason for Referral Referral Start Date Provider Provider Contact Information Provider Address DOCTOR UNKNOWN Chris Aden Work Phone: [phone] [address] PHYSICIAN NOT ON STAFF Lico still MD Work Phone: [phone] [facility] [address] PHYSICIAN NOT ON STAFF Future Procedures Future procedure information is unavailable Future Medications Future medication information is unavailable Patient Instructions Near Syncope (ED) Weakness (ED) Antibiotic Form Osteoarthritis (DC) Elbow Fracture (ED) Hospital Discharge Instructions Additional Instructions RETURN IF SYMPTOMS ARE WORSENING , CALL YOUR FAMILY PHYSICIAN /ORTHOPEDIC FOR APPOINTMENT, TAKE TYLENOL NEEDED FOR ACHES AND PAIN, CONTINUE HOME MEDICATIONS.
--- OUTSIDE RECORDS SUMMARY | 2024-04-03 00:57 | XMS_ITS | Encounter Summary ---
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 Clinical Support [facility] [address] [place] [id number] Need for vaccination ; Need for prophylactic vaccination and inoculation against influenza Social History Tobacco Use Types Packs/Day Years Used Date Smoking Tobacco: Never Passive Smoke Exposure: Current Smokeless Tobacco: Former Chew Quit: 01/02/2021 Alcohol Use Standard Drinks/Week Comments No 0 (1 standard drink = 0.6 oz pur e alcohol) PHQ-2 Answer Date Recorded Patient Health Questionnaire-2 Score 0 02/09/2024 Sex and Gender Information Value Date Recorded Sex Assigned at Male 01/22/2023 1:45 PM CDT Gender Identity Male 01/22/2023 1:45 PM CDT Sexual Orientation Straight 01/22/2023 1: 45 PM CDT documented as of this encounter Progress Notes * Maria Herrera RMA - 02/10/2024 9:40 AM CST Flu screening checklist was reviewed with the patient. VIS was given prior to administration. Injection site aseptically cleansed and injection given per Immunization(s) protocol. See Imm/Injections activity for details. T METAL WORKER SUPERVISOR documented in this encounter Plan of Treatment Upcoming Encounters Date Type Department Care Team (Late st Contact Info) Description 04/07/2024 10:00 AM SHEET METAL WORKER SUPERVISOR Office Visit [facility] [address] [facility] [address] [place] [address] Evelin Blanco APRN-HEALTH ADMINISTRATION TEACHER [address] [facility] [address] [place] [address] 06/06/2024 2:00 PM CDT Office Visit [facility] [id number] [place] [address] [address] [place] [address] [place] [address] [id number] documented as of this encounter Goals Goal Patient Goal Type Associated Problems Recent Progress Patient-Stated? Author Blood Pressure < 140/90 Blood Pressure 96/68(2023 2:34 PM SHEET METAL WORKER SUPERVISOR) Rere Vargas Note: Caring for Your High Blood Pressure Healthy Lifestyle tips ? ? Manage stress: Stress may slow healing and cause illness later. Since it is hard to avoid stress, learn to control it. Learn new ways to relax. Ask your provider for more information on ways to relax. Talk to someone about things that upset you. ? ? Stop smoking: If you smoke, you should quit. Smoking harms the heart, lungs, and blood. You are more likely to have a heart attack, lung disease, and cancer if you smoke. Smoking can also make your hypertension worse. It is never too late to quit. Quitting smoking improves your health, and the health of those around you. If you have trouble quitting, talk to your provider about ways to quit. ? ? Drinking alcohol: If you drink alcohol, limit how much you drink. Do not drink more than two drinks a day. One drink is a can of beer (12 ounces) or four ounces (one-half cup) of wine. It is also the same as one jigger (one and one-half ounces) of hard liquor, such as whiskey. ? ? Maintain a healthy weight. Weighing to much can make your heart work harder and cause high blood pressure. Other health problems are caused about weighing too much. Talk to your provider about an ideal weight for you. Where can I go for more information? [place] Heart Association National Center: http://www.americanheart.org 1. In the top header, click ? Conditions? . 2. In the top header, click ? high blood pressure.? 3. For a printable blood pressure tracker, scroll toward the bottom of the page to Related Tools, and click ? HBP Trackers.? 9-951-XPN-USA-1 or ( ) National Heart, Lung and Blood [place]: http://www.nhlbi.nih.gov/health/infoctr/index.htm Blood Pressure < 140/90 Blood Pressure 96/68(2023 2:34 PM SHEET METAL WORKER SUPERVISOR) Rere Vargas Note: Caring for Your High Blood Pressure Diet Eat a healthy diet: ? ? Eat healthy foods from all of the 5 food groups which are fruits, vegetables, breads, dairy products, meat and fish. Eating healthy foods may help you feel better and have more energy. ? ? To help control your blood pressure, you may need to limit the amount of salt and fat you eat. Read labels to see how much sodium (salt or sodium chloride) is in the food that you buy at the store. Avoid foods and drinks that are high in sodium (salt). These include smoked meats (such as ham and merrill), cheese, canned and frozen foods, and butter and margarine. Read all labels carefully. Do not add salt to your food. Learn to use fresh herbs, spices, or salt substitutes to add flavor to your food. Ask your provider for any dietary restrictions that are appropriate for you. Where can I go for more information? [place] Heart Association National Center: http://www.americanheart.org 1. In the top header, click ? Conditions? . 2. In the top header, click ? high blood pressure.? 3. For a printable blood pressure tracker, scroll toward the bottom of the page to Related Tools, and click ? HBP Trackers.? 4-336-XRT-USA-1 or ( ) National Heart, Lung and Blood [place]: http://www.nhlbi.nih.gov/health/infoctr/index.htm Blood Pressure < 140/90 Blood Pressure 96/68(2023 2:34 PM SHEET METAL WORKER SUPERVISOR) Cassie Parks Note: Caring for Your High Blood Pressure Healthy Lifestyle tips ? ? Manage stress: Stress may slow healing and cause illness later. Since it is hard to avoid stress, learn to control it. Learn new ways to relax. Ask your provider for more information on ways to relax. Talk to someone about things that upset you. ? ? Stop smoking: If you smoke, you should quit. Smoking harms the heart, lungs, and blood. You are more likely to have a heart attack, lung disease, and cancer if you smoke. Smoking can also make your hypertension worse. It is never too late to quit. Quitting smoking improves your health, and the health of those around you. If you have trouble quitting, talk to your provider about ways to quit. ? ? Drinking alcohol: If you drink alcohol, limit how much you drink. Do not drink more than two drinks a day. One drink is a can of beer (12 ounces) or four ounces (one-half cup) of wine. It is also the same as one jigger (one and one-half ounces) of hard liquor, such as whiskey. ? ? Maintain a healthy weight. Weighing to much can make your heart work harder and cause high blood pressure. Other health problems are caused about weighing too much. Talk to your provider about an ideal weight for you. Where can I go for more information? [place] Heart Association National Center: http://www.americanheart.org 1. In the top header, click ? Conditions? . 2. In the top header, click ? high blood pressure.? 3. For a printable blood pressure tracker, scroll toward the bottom of the page to Related Tools, and click ? HBP Trackers.? 1-435-PBD-USA-1 or ( ) National Heart, Lung and Blood [place]: http://www.nhlbi.nih.gov/health/infoctr/index.htm Exercise 5X per week (30 min per time) Exercise Rere Vargas Note: The [place] [employer] recommends all adults get a minimum of 150 minutes of moderate physical activity a week. This can be completed as 30 minutes of brisk walking on most days of the week. Even 10 minutes of exercise a day can provide benefit and will add up over the week. If able, try to take the stairs instead of the elevator or park farther away in the parking lot. Start slow and try to increase your amount of activity over several weeks. Exercise will help to improve your cholesterol readings and blood pressure and to be overall healthier. Have labs drawn Lifestyle Rere Vargas Note: Caring for Your Diabetes Exercise Tips ? ? Physical activity is important for everyone? s health but especially important if you have diabetes. It can lower blood glucose levels by improving the body? s ability to utilize both glucose and insulin. ? ? Check with your provider before starting an exercise program. ? ? When starting a physical activity program, begin slowly to avoid injury. Even doing 5 to 10 minutes can be beneficial. Add a few minutes each week till you reach your goal. Choose an activity that fits your fitness level and interests, one that you can do on a regular basis. ? ? Exercise activities like running, using weights, going to the gym are one type of physical activity, but day to day activities such as walking, stairs, cutting grass, gardening, and riding a bike or vacuuming are also physical activities. IT ALL COUNTS!!!! ? ? For a Food and Activity Tracker you can keep at home, go to: My Game Plan: Food and Activity Tracker Important Vaccinations When you have diabetes, it? s important to keep up to date with vaccinations, or immunizations. ? ? Importance of flu vaccine: Flu is a serious illness that can lead pneumonia and even . People with diabetes can become very ill when they get the flu and may need to be hospitalized. It is recommended that you get the flu vaccine every year ? ? Importance of Pneumonia vaccine: Pneumonia is a serious illness that affects the lungs and may also lead to infections of the blood and the covering of the brain (meningitis). You can get the pneumonia vaccine any time of the year. It is suggested that you have the vaccine once before the age of 65 and once after the age of 65. ? ? Your provider may also suggest additional vaccines such as tetanus or Hepatitis B. Talk with your provider to see if these vaccines are appropriate for you and ask your insurance company about coverage. The following resources can help you and the people close to you learn more about diabetes and how to manage your diabetes: ? ? [place] Diabetes Association: www.diabetes.org 2-578-SQNWEGYM ( ) ? ? [place] Diabetes Association-Support group line: www.professional.diabetes.org ? ? [place] Heart Association: www.heart.org or 9-975-GKB-USA-1 ( ) Cureatr MyPlate: www.Tweegeemyplate.gov Have labs drawn Lifestyle Rere Vargas Note: Caring for Your Diabetes Routine Testing for Diabetic Control How do you know if your treatment plan is working? We can? t tell how you are doing just by how you feel. There are 6 important tests that help you and your provider know how well you are managing your diabetes and decreasing your risk for complications. ? ? Foot exam - People with diabetes have a great chance of developing foot problems. Checking your feet at home every day is important. Your provider will also complete a thorough exam during one of your regular office visits. ? ? Eye exam - Diabetes can lead to retinopathy. This is a condition caused by changes in the retina, the part of the eye that senses light. If not treated retinopathy can lead to blindness. Having an eye exam at least once a year can help catch any problems early. ? ? HgbA1c -This blood test is a very important indicator of blood sugar control over the last 3 months. A normal A1C result means that a healthy amount of glucose is inside the red blood cells. A high A1C result means that too much glucose is inside red blood cells. ? ? Micro-Albumin - With diabetes you are at a higher risk of developing kidney disease. This test is the best way to identify early signs of kidney damage. If needed, treatment can begin to prevent a more serious problem from developing. ? ? LDL - This is the ? BAD? cholesterol. Lipids are fat like substances that can build up in the carranza of your arteries. This can increase your risk of heart disease. In general reaching your target is the most effective way to protect your heart and blood vessels. ? ? Blood pressure - People with diabetes are more than twice as likely to have high blood pressure than people without diabetes. High blood pressure is a problem because, if left untreated, it can damage the large vessels leading to the heart and brain which can lead to heart attack or stroke. ? ? Blood Sugar - An important part of your diabetes care is knowing your blood sugar. Your blood sugar can and should be monitored regularly, at the discretion of your doctor, in order to make the most of your diabetic care. A printable blood sugar log can be found by following the links below: 1. Go to www.diabetes.org and click on ? Living with Diabetes.? 2. Under the [facility] Treatment [facility] Care, click ? Blood Glucose Testing.? 3. Click ? Checking Your Blood Glucose,? and this will give you both an online tool and a printable blood glucose log. 4. The printable blood glucose log can also be accessed here: printable blood glucose log Discuss with your provider your personalized treatment goals to help manage your diabetes. If you see providers outside of this office please make sure that the test results or exam notes are sent to our office. documented as of this encounter Visit Diagnoses Diagnosis Need for vaccination- Primary Need for prophylactic vaccination and inoculation against unspecified single disease Need for prophylactic vaccination and inoculation against influenza documented in this encounter Care Teams Mail Messenger Contractor Relationship Specialty [place] [address] [place] [address] PCP - General Internal Medicine 01/26/22 [place] [address] [place] [address] PCP - [facility] 02/19/22 [place] [address] [facility] [address] [place] [address] Ophthalmology 04/06/16 Fawn Ramon DPM [address] [place] [address] Podiatry 01/24/21 documented as of this encounter
--- OUTSIDE RECORDS SUMMARY | 2024-04-03 00:57 | XMS_ITS | Encounter Summary ---
Author Organization [facility] Address [address] [facility] [place] [address] Care Team Providers Care Grey Goods Tester Name Role Phone Ricco Andrew MD Unavailable [phone] Fawn Ramon DPM Unavailable [phone] Chris Aden MD Primary Care Provider [phone] Chris Aden MD Unavailable Clarice Hansen RN Unavailable [phone] Encounter Details Date Type Department Care Team (Latest Contact Info) Description 02/28/2024 Travel Social History Tobacco Use Types Packs/Day Years Used Date Smoking Tobacco: Never Passive Smoke Exposure: Current Smokeless Tobacco: Former Chew Quit: 01/02/2021 Alcohol Use Standard Drinks/Week Comments No 0 (1 standard drink = 0.6 oz pur e alcohol) AUDIT-C Answer Date Recorded Q1: How often do you have a drink containing alc ohol? Never 02/23/2024 Average Number of Drinks Not on file 024 Frequency of Binge Drinking Not on file 06/2023 Overall Financial Resource Strain (CARDIA) Answe r Date Recorded How hard is it for you to pa y for the very basics like food, housing, medical care, and heating? Not very hard 02/24/2024 PHQ-2 Answer Date Recorded Patient Health Questionnaire-2 Score 0 02/28/2024 [facility] [place] [facility] - Occupational Stress Questionnaire Answer Date Recorded Do you feel stress - tense, restless, nervous, or anxious, or unable to sleep at night because your mind is troubled all the time - these days? Not at all 02/24/2024 Hunger Vital Sign Answer Date Recorded Within the past 12 months, y ou worried that your food would run out before you got the money to buy more. Never true 02/24/20 24 Within the past 12 months, t he food you bought just didn't last and you didn't have money to get more. Never true 02/24/2024 PRAPARE - Transportation Answer Date Re corded In the past 12 months, has l ack of transportation kept you from medical appointments or from getting medications? No 07/2023 In the past 12 months, has l ack of transportation kept you from meetings, work, or from getting things needed for daily living? No 02/24/2024 Housing Stability Vital Sign Answer [place] e Recorded In the last 12 months, was t here a time when you were not able to pay the mortgage or rent on time? No 02/24/2024 Number of Times Moved in the Last Year Not on fi le 02/24/2024 At any time in the past 12 m [facility], were you homeless or living in a retirement (including now)? No 02/24/2024 Sex and Gender Information Value Date Recorded Sex Assigned at Male 01/22/2023 1:45 PM CDT Gender Identity Male 01/22/2023 1:45 PM CDT Sexual Orientation Straight 01/22/2023 1: 45 PM CDT documented as of this encounter Plan of Treatment Upcoming Encounters Date Type Department Care Team (Late st Contact Info) Description 04/07/2024 10:00 AM MARINE ELECTRICIAN Office Visit [facility] [id number] [place] [address] [address] [place] [address] Evelin Blanco, SUPREME COURT JUDGE-NETWORKING TECHNICIAN [address] [facility] [address] [place] [address] 06/06/2024 2:00 PM CDT Office Visit [facility] [id number] [place] [address] [address] [place] [address] [place] [address] [facility] [address] [place] [phone] documented as of this encounter Goals Goal Patient Goal Type Associated Problems Recent Progress Patient-Stated? Author Blood Pressure < 140/90 Blood Pressure 96/68(2023 2:34 PM MARINE ELECTRICIAN) Rere Vargas Note: Caring for Your High [...] Where can I go for more information? [place] [employer] Association National Center: http://www.americanheart.org 1. In the top header, click ? Conditions? . 2. In the top header, click ? high blood pressure.? 3. For a printable blood pressure tracker, scroll toward the bottom of the page to Related Tools, and click ? HBP Trackers.? 7-340-KIJ-USA-1 or ( ) National Heart, Lung and Blood [place]: http://www.nhlbi.nih.gov/health/infoctr/index.htm Blood Pressure < 140/90 Blood Pressure 96/68(2023 2:34 PM MARINE ELECTRICIAN) No Rere Kaufman Note: Caring for Your High Blood Pressure [...] Where can I go for more information? [place] Heart Association National Center: http://www.americanheart.org 1. In the top header, click ? Conditions? . 2. In the top header, click ? high blood pressure.? 3. For a printable blood pressure tracker, scroll toward the bottom of the page to Related Tools, and click ? HBP Trackers.? 3-675-WHN-USA-1 or ( ) National Heart, Lung and Blood [place]: http://www.nhlbi.nih.gov/health/infoctr/index.htm Blood Pressure < 140/90 Blood Pressure 96/68(2023 2:34 PM MARINE ELECTRICIAN) No Cassie Marie Note: Caring for Your High Blood Pressure [...] Where can I go for more information? [place] Heart Association National Center: http://www.americanheart.org 1. In the top header, click ? Conditions? . 2. In the top header, click ? high blood pressure.? 3. For a printable blood pressure tracker, scroll toward the bottom of the page to Related Tools, and click ? HBP Trackers.? 9-722-KWC-USA-1 or ( ) National Heart, Lung and Blood [place]: http://www.nhlbi.nih.gov/health/infoctr/index.htm Exercise 5X per week (30 min per time) Exercise No Rere Kaufman Note: The [place] [employer] recommends all adults [...] how to manage your diabetes: ? ? [place] Diabetes Association: www.diabetes.org 5-235-YXMPOPEV ( ) ? ? [place] Diabetes Association-Support group line: www.professional.diabetes.org ? ? [place] Heart Association: www.heart.org or 8-814-WVJ-USA-1 ( ) [employer] MyPlate: www.Jooxmyplate.gov Have labs drawn Lifestyle Rere Vargas Note: [...] documented as of this encounter Visit Diagnoses Not on filedocumented in this encounter Care Teams Grey Goods Tester Relationship Specialty [place] [address] [place] [phone] PCP - General Internal Medicine 01/26/22 [place] [address] [place] [phone] PCP - [facility] 02/19/22 [place] [address] [facility] [address] [place] [address] Ophthalmology 04/06/16 Fawn Ramon DPM [address] [place] [address] Podiatry 01/24/21 Clarice Hansen RN Enterprise Systems ArchitectWebfed Offset Press Operator 02/28/24 02/28/24 documented as of this encounter
--- OUTSIDE RECORDS SUMMARY | 2024-04-03 00:57 | XMS_ITS | Encounter Summary ---
Author Organization [facility] Address [address] [place] [address] Care Team Providers Care Vending Route Driver Name Role Phone Ricco Andrew MD Unavailable [phone] Fawn Ramon DPM Unavailable [phone] Chris Aden MD Primary Care Provider [phone] Chris Aden MD Unavailable Encounter Details Date Type Department Care Team (Latest Contact Info) Description 02/23/2024 Travel Social History Tobacco Use Types Packs/Day [...] Recorded Patient Health Questionnaire-2 Score 0 02/09/2024 [facility] [place] of Occupat ional Health - Occupational Stress [...] any time in the past 12 m [facility], were you homeless or living in a group home (including now)? No 02/24/2024 Sex and Gender Information Value Date Recorded Sex Assigned at Male 01/22/2023 1:45 PM CDT Gender Identity Male 01/22/2023 1:45 PM CDT Sexual Orientation Straight 01/22/2023 1: 45 PM CDT documented as of this encounter Plan of Treatment Upcoming Encounters Date Type Department Care Team (Late st Contact Info) Description 04/07/2024 10:00 AM JOB BOSS Office Visit [facility] [id number] [place] [address] [address] [place] [address] Evelin Blanco, AUDIT INTERN-SERVER CASHIER [address] [facility] [address] [place] [address] 06/06/2024 2:00 PM CDT Office Visit [facility] [id number] [place] [address] [address] [place] [address] [place] [id number] [facility] [address] [place] [id number] documented as of this encounter Goals Goal Patient Goal Type Associated Problems Recent Progress Patient-Stated? Author Blood Pressure < 140/90 Blood Pressure 96/68(2023 2:34 PM JOB BOSS) No Rere Kaufman Note: Caring for Your [...] Where can I go for more information? Citizen Of [place] Heart Association National Center: http://www.americanheart.org 1. In the top header, click ? Conditions? . 2. In the top header, click ? high blood pressure.? 3. For a printable blood pressure tracker, scroll toward the bottom of the page to Related Tools, and click ? HBP Trackers.? 6-261-CIK-USA-1 or ( ) National Heart, Lung and Blood [place]: http://www.nhlbi.nih.gov/health/infoctr/index.htm Blood Pressure < 140/90 Blood Pressure 96/68(2023 2:34 PM JOB BOSS) Rere Vargas Note: Caring for Your High [...] Where can I go for more information? Citizen Of [place] Heart Association National Center: http://www.americanheart.org 1. In the top header, click ? Conditions? . 2. In the top header, click ? high blood pressure.? 3. For a printable blood pressure tracker, scroll toward the bottom of the page to Related Tools, and click ? HBP Trackers.? 8-340-JWV-USA-1 or ( ) National Heart, Lung and Blood [place]: http://www.nhlbi.nih.gov/health/infoctr/index.htm Blood Pressure < 140/90 Blood Pressure 96/68(2023 2:34 PM JOB BOSS) Cassie Parks Note: Caring for Your High [...] Where can I go for more information? Citizen Of [place] Heart Association National Center: http://www.americanheart.org 1. In the top header, click ? Conditions? . 2. In the top header, click ? high blood pressure.? 3. For a printable blood pressure tracker, scroll toward the bottom of the page to Related Tools, and click ? HBP Trackers.? 4-638-IKE-USA-1 or ( ) National Heart, Lung and Blood [place]: http://www.nhlbi.nih.gov/health/infoctr/index.htm Exercise 5X per week (30 min per time) Exercise No Rere Kaufman Note: The [place] College of Sports Medicine recommends all adults [...] how to manage your diabetes: ? ? Citizen [place] Diabetes Association: www.diabetes.org 5-801-CGBYAEAL ( ) ? ? Citizen [place] Diabetes Association-Support group line: www.professional.diabetes.org ? ? Citizen [place] Heart Association: www.heart.org or 2-443-XSZ-USA-1 ( ) [employer] MyPlate: www.Concuitymyplate.gov Have labs drawn Lifestyle Rere Vargas Note: [...] on filedocumented in this encounter Care Teams Vending Route Driver Relationship Specialty [place] [address] [place] [address] PCP - General Internal Medicine 01/26/22 [place] [address] [place] [address] PCP - [facility] 02/19/22 [place] [address] [facility] [address] [place] [address] Ophthalmology 04/06/16 Fawn Ramon DPM [address] [place] [address] Podiatry 01/24/21 documented as of this encounter
--- OUTSIDE RECORDS SUMMARY | 2024-04-03 00:57 | XMS_ITS | Encounter Summary ---
Author Organization [facility] Address [address] [facility] [place] [place] [address] Care Team Providers Care Poacher Operator Name Role Phone Ricco Andrew MD Unavailable [phone] Fawn Ramon DPM Unavailable [phone] Chris Aden MD Primary Care Provider [phone] Chris Aden MD Unavailable Reason for Visit * Reason Comments Hospital Follow-up Encounter Details Date Type Department Care Team (Late st Contact Info) Description 02/23/2024 2:00 PM THREADING MACHINE SETTER Office Visit [facility] [id number] [facility] [address] [place] [address] Evelin Blanco, JOSETTE-NUTRITIONAL SERVICES COOK [address] [facility] [address] [place] [address] Hypotension, unspecified hypotension type (Primary Dx) Social History Tobacco Use Types Packs/Day Years Used Date Smoking Tobacco: Never Passive Smoke Exposure: Current Smokeless Tobacco: Former Chew Quit: 01/02/2021 Tobacco Cessation:Counseling Given: Not Answered Alcohol Use Standard Drinks/Week Comments No 0 [...] Recorded Patient Health Questionnaire-2 Score 0 02/09/2024 [facility] of Occupat ional Health - Occupational Stress [...] any time in the past 12 m [facility], were you homeless or living in a [facility] (including now)? No 02/24/2024 Sex and Gender Information Value Date Recorded Sex Assigned at Male 01/22/2023 1:45 PM CDT Gender Identity Male 01/22/2023 1:45 PM CDT Sexual Orientation Straight 01/22/2023 1: 45 PM CDT documented as of this encounter Last Filed Vital Signs Vital Sign Reading Time Taken Comments Blood Pressure 70/44 02/23/2024 2:33 PM THREADING MACHINE SETTER Pulse 112 02/23/2024 2:25 PM THREADING MACHINE SETTER Temperature 36.3 ??C (97.3 ??F) 02/23/2024 2:25 PM CS T Respiratory Rate 18 02/23/2024 2:25 PM THREADING MACHINE SETTER Oxygen Saturation 96% 02/23/2024 2:25 PM THREADING MACHINE SETTER Inhaled Oxygen Concentration - - Weight - - Height - - Body Mass Index - - documented in this encounter Progress Notes * Evelin Blanco, JOSETTE-DENIS - 02/23/2024 2:35 PM CST SUBJECTIVE: Mk Sanches is a 88 year old male here for: Chief Complaint Patient presents with Hospital Follow-up Past Medical History: Diagnosis Date Benign hypertension with chronic kidney disease 02/05/2016 BP controlled off rx. resolved Chronic renal failure Dementia (HCC) Dermatitis DM (diabetes mellitus) (HCC) HTN (hypertension) Hx of rheumatic fever Hypothyroid Seasonal allergies Trigger finger HPI: PT was in [facility] in [place] for pneumonia but we do not have any papers to see. Daughterusually shows us her phone. Daughter is trying to get him to drink water but he is not drinking much. He was incontinent of stool today and activity level has decreased today. Review of systems negative except as noted in the HPI Social History Tobacco Use Smoking status: Never Passive exposure: Current Smokeless tobacco: Former Types: Chew Quit date: 01/02/2021 Substance Use Topics Alcohol use: No Family History Family history unknown: Yes Past Surgical History: Procedure Laterality Date NEGATIVE SURGICAL HISTORY Current Outpatient Medications on File Prior to Visit Medication Sig Dispense Refill Acetaminophen (TYLENOL ARTHRITIS PAIN PO) Take 500 mg by mouth Two times a week DIONICIO ASPIRIN REGIMEN PO Take 81 mg by mouth once daily Blood Glucose Monitoring Suppl (ONE TOUCH ULTRA 2) w/Device KIT Use 1 Each 2 times daily [facility] Purelax 17 GM/SCOOP powder TAKE 1 CAPFUL (17G) BY MOUTH DISSOLVED IN 4-8 OZ OF WATER OR JUICE ONCE DAILY 510 g 3 docusate sodium (Colace) 100 MG capsule TAKE 1 CAPSULE BY MOUTH TWICE A DAY 180 capsule 3 glipiZIDE (Glucotrol) 5 MG tablet Take 1 (one) tablet by mouth 2 times daily, before breakfast and supper DX: Type 2 diabetes mellitus with diabetic neuropathy, without long-term current use of insulin (HCC) E11.40 180 tablet 2 ketoconazole (Nizoral) 2 % shampoo APPLY TO AFFECTED AREA THREE TIMES A WEEK REASONS: DANDRUFF 120 mL 5 levothyroxine (Synthroid) 75 MCG tablet TAKE 1 TABLET BY MOUTH EVERY DAY BEFORE BREAKFAST 90 tablet3 loratadine (Claritin) 10 MG tablet Take 1 (one) tablet by mouth once daily 90 tablet 4 melatonin 3 MG tablet Take 5 mg by mouth at bedtime memantine (Namenda) 5 MG tablet Take 1 (one) tablet by mouth 2 times daily 180 tablet 2 menthol-zinc oxide (Calmoseptine) 0.44-20.625 % ointment Apply to affected area 2 times daily On both buttocks and at coccyx. 113 g 2 ONE TOUCH ULTRASOFT LANCETS MISC Use 1 Each 2 times daily 33 lucy ONETOUCH ULTRA TEST STRIPS test strip Use 1 strip once daily (One touch mini test strips) (Patient taking differently: Use 1 (one) strip 2 times daily (One touch mini test strips)) 100 strip 2 Polyethylene Glycol 3350 1 packet mixed with 8 ounces of fluid Orally Once a day Vitamin D3 (25 MCG) 1000 UNIT capsule Take 1 (one) capsule by mouth once daily Reasons: Vitamin D Deficiency 30 capsule 0 No current facility-administered medications on file prior to visit. Allergies Allergen Reactions Ibuprofen Other HE HAS CKD AND SHOULD NOT TAKE NSAID'S Septra Ds [Sulfamethoxazole W-Trimethoprim] Rash OBJECTIVE: Vitals: 02/23/24 1425 02/23/24 1433 BP: (!) 72/44 (!) 70/44 Pulse: (!) 112 Resp: 18 Temp: 97.3 ??F (36.3 ??C) SpO2: 96% There is no height or weight on file to calculate BMI. General appearance - has head down but when I spoke to him he was appropriate, frail appearing, andin no distress Psych - alert and oriented to person, place. Skin is cool to the touch, lips are dry and white. ASSESSMENT Encounter Diagnosis Name Primary? Hypotension, unspecified hypotension type Yes PLAN: No orders of the defined types were placed in this encounter. Pt is transferred to the ER in wheelchair accompanied by 2 daughters and MA. Access/Transfer Line contacted. Pt sent with life threatening hypotension. Further recommendations pending the above results and patient's clinical course. Follow-up visit prn. The patient indicates understanding of these issues and agrees with the plan. ADING MACHINE SETTER documented in this encounter Plan of Treatment Upcoming Encounters Date Type Department Care Team (Late st Contact Info) Description 04/07/2024 10:00 AM THREADING MACHINE SETTER Office Visit [facility] [address] [facility] [place], [place] [id number] Evelin Blanco APRN-CNP [address] [facility] [address] [place] [address] 06/06/2024 2:00 PM CDT Office Visit [facility] [address] [facility] [address] [place], [place] [id number] [place] [address] [facility] [address] [place] [address] documented as of this encounter Goals Goal Patient Goal Type Associated Problems Recent Progress Patient-Stated? Author Blood Pressure < 140/90 Blood Pressure 96/68(2023 2:34 PM THREADING MACHINE SETTER) Rere Vargas Note: Caring for Your High [...] Where can I go for more information? [place] Heart Association National Center: http://www.americanheart.org 1. In the top header, click ? Conditions? . 2. In the top header, click ? high blood pressure.? 3. For a printable blood pressure tracker, scroll toward the bottom of the page to Related Tools, and click ? HBP Trackers.? 6-415-EAU-USA-1 or ( ) National Heart, Lung and Blood [place]: http://www.nhlbi.nih.gov/health/infoctr/index.htm Blood Pressure < 140/90 Blood Pressure 96/68(2023 2:34 PM THREADING MACHINE SETTER) Rere Vargas Note: Caring for Your High [...] Where can I go for more information? [place] Heart Association National Center: http://www.americanheart.org 1. In the top header, click ? Conditions? . 2. In the top header, click ? high blood pressure.? 3. For a printable blood pressure tracker, scroll toward the bottom of the page to Related Tools, and click ? HBP Trackers.? 2-788-PIU-USA-1 or ( ) National Heart, Lung and Blood [place]: http://www.nhlbi.nih.gov/health/infoctr/index.htm Blood Pressure < 140/90 Blood Pressure 96/68(2023 2:34 PM THREADING MACHINE SETTER) Cassie Parks Note: Caring for Your High [...] Where can I go for more information? [place] Heart Association National Center: http://www.americanheart.org 1. In the top header, click ? Conditions? . 2. In the top header, click ? high blood pressure.? 3. For a printable blood pressure tracker, scroll toward the bottom of the page to Related Tools, and click ? HBP Trackers.? 7-162-FCM-USA-1 or ( ) National Heart, Lung and Blood Park: http://www.nhlbi.nih.gov/health/infoctr/index.htm Exercise 5X per week (30 min per time) Exercise Rere Vargas Note: The [place] College of Sports Medicine recommends all adults [...] be overall healthier. Have labs drawn Lifestyle No Rere Kaufman Note: Caring for Your Diabetes Exercise Tips [...] how to manage your diabetes: ? ? [place] Diabetes Association: www.diabetes.org 3-470-CUOBIJKG ( ) ? ? [place] Diabetes Association-Support group line: www.professional.diabetes.org ? ? [place] Heart Association: www.heart.org or 6-026-MMG-USA-1 ( ) [employer] (EBTH) MyPlate: www.[place] Technologymyplate.gov Have labs drawn Lifestyle No Rere Kaufman Note: Caring for Your Diabetes Routine Testing [...] as of this encounter Visit Diagnoses Diagnosis Hypotension, unspecified hypotension type- Primary documented in this encounter Care Teams Poacher Operator Relationship Specialty [place] [address] [place] [address] PCP - General Internal Medicine 01/26/22 [place] [address] [place] [address] PCP - [facility] 02/19/22 [place] [address] [facility] [address] [place] [id number] Ophthalmology 04/06/16 Fawn Ramon DPM [address] [place] [address] Podiatry 01/24/21 documented as of this encounter
--- OUTSIDE RECORDS SUMMARY | 2024-04-03 00:57 | XMS_ITS | Encounter Summary ---
Author Organization [facility] Address [address] [place] [address] Care Team Providers Care Diamond Cutter Name Role Phone Ricco Andrew MD Unavailable [phone] Fawn Ramon DPM Unavailable [phone] Chris Aden MD Primary Care Provider [phone] Chris Aden MD Unavailable Reason for Visit * Reason Comments Hospital Follow-up Encounter Details Date Type Department Care Team (Latest Contact Info) Description 03/06/2024 2:30 PM CASE MANAGEMENT SPECIALIST Office Visit [facility] - Family Medicine [id number] [place] [address] Chris Aden MD [address] [place] [phone] Slow transit constipation (Primary Dx); Type 2 diabetes mellitus with diabetic neuropathy, unspecified whether mcfp insulin use (HCC); Cellulitis of face; Dermatitis; Type 2 diabetes mellitus with hyperlipidemia (HCC); Type 2 diabetes mellitus with hyperglycemia, without long-term current use of insulin (HCC); 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, were you homeless or living in a halfway (including now)? No 02/24/2024 Sex and Gender Information Value Date Recorded Sex Assigned at Male 01/22/2023 1:45 PM CDT Gender Identity Male 01/22/2023 1:45 PM CDT Sexual Orientation Straight 01/22/2023 1: 45 PM CDT documented as of this encounter Last Filed Vital Signs Vital Sign Reading Time Taken Comments Blood Pressure 96/68 03/06/2024 2:34 PM CASE MANAGEMENT SPECIALIST Pulse 70 03/06/2024 2:34 PM CASE MANAGEMENT SPECIALIST Temperature 36.7 ??C (98 ??F) 03/06/2024 2:34 PM CASE MANAGEMENT SPECIALIST Respiratory Rate 18 03/06/2024 2:34 PM CASE MANAGEMENT SPECIALIST Oxygen Saturation 96% 03/06/2024 2:34 PM CASE MANAGEMENT SPECIALIST Inhaled Oxygen Concentration - - Weight - - Height 170.2 cm (5' 7) 03/06/2024 2:34 PM CASE MANAGEMENT SPECIALIST Body Mass Index - - documented in this encounter Progress Notes * Chris Aden MD - 03/06/2024 3:03 PM CST SUBJECTIVE: Mk Sanches is a 88 year old male here today for Chief Complaint Patient presents with Hospital Follow-up Patient came in today follow-up for cellulitis of the face increase in temperature area redness andtenderness for the past 2 days. Also dermatitis behind the ear and neck. For the past few days. Constipation despite MiraLax not improving. The patient has diabetes with hypertension hyperlipidemia, retinopathy, hyperglycemia. Current Outpatient Medications Medication Sig Dispense Refill Acetaminophen (TYLENOL ARTHRITIS PAIN PO) Take 650 mg by mouth 2 times daily amoxicillin-clavulanate (Augmentin) 875-125 MG tablet Take 1 (one) tablet by mouth 2 times daily with morning and evening meal for 10 days Reasons: Infection of the Skin and/or Skin Structures 20 tablet 0 DIONICIO ASPIRIN REGIMEN PO Take 81 mg by mouth once daily Blood Glucose Monitoring Suppl (ONE TOUCH ULTRA 2) w/Device KIT Use 1 Each 2 times daily [facility] Purelax 17 GM/SCOOP powder TAKE 1 CAPFUL (17G) BY MOUTH DISSOLVED IN 4-8 OZ OF WATER OR JUICE ONCE DAILY (Patient taking differently: Take 8.5 (eight and one-half) g by mouth once daily as neededfor Constipation) 510 g 3 docusate sodium (Colace) 100 MG capsule TAKE 1 CAPSULE BY MOUTH TWICE A DAY 180 capsule 3 glipiZIDE (Glucotrol) 5 MG tablet Take 1 (one) tablet by mouth 2 times daily, before breakfast and supper DX: Type 2 diabetes mellitus with diabetic neuropathy, without long-term current use of insulin ([facility]) E11.40 180 tablet 2 ketoconazole (Nizoral) 2 % shampoo APPLY TO AFFECTED AREA THREE TIMES A WEEK REASONS: DANDRUFF 120 mL 5 levothyroxine (Synthroid) 75 MCG tablet TAKE 1 TABLET BY MOUTH EVERY DAY BEFORE BREAKFAST 90 tablet3 loratadine (Claritin) 10 MG tablet Take 1 (one) tablet by mouth once daily (Patient not taking: Reported on 02/28/2024) 90 tablet 4 melatonin 3 MG tablet [...] strips)) 100 strip 2 Polyethylene Glycol 3350 senna-docusate (Senokot-S) 8.6-50 MG tablet Take 1 (one) tablet by mouth once daily Reasons: Constipation 30 tablet 5 triamcinolone acetonide (Kenalog) 0.1 % cream Apply to affected area 2 times daily Reasons: Skin Inflammation 80 g 1 Vitamin D3 (25 MCG) 1000 UNIT capsule Take 1 (one) capsule by mouth once daily Reasons: Vitamin D Deficiency 30 capsule 0 No current facility-administered medications for this visit. Allergies Allergen Reactions Ibuprofen Other HE HAS CKD AND SHOULD NOT TAKE NSAID'S Septra Ds [Sulfamethoxazole W-Trimethoprim] Rash Past Medical History: Diagnosis Date Benign hypertension with chronic kidney disease 02/05/2016 BP controlled off rx. resolved Chronic renal failure Dementia (HCC) Dermatitis DM (diabetes mellitus) ([facility]) HTN (hypertension) Hx of rheumatic fever Hypothyroid Seasonal allergies Trigger finger Family History Family history unknown: Yes Review of Systems All other systems reviewed and are negative. OBJECTIVE: BP Readings from Last 3 Encounters: 03/06/24 96/68 02/26/24 125/70 02/23/24 (!) 70/44 Wt Readings from Last 3 Encounters: 02/24/24 65.8 kg (145 lb) 12/02/23 66.1 kg (145 lb 12.8 oz) 10/13/23 57.5 kg (126 lb 12.8 oz) BP 96/68 (BP Location: Left arm, Patient Position: Sitting, BP Cuff Size: Adult) Pulse 70 Temp 98 ??F (36.7 ??C) (Temporal) Resp 18 Ht 1.702 m (5' 7) SpO2 96% Body mass index is 22.71 kg/m??. Physical Exam Vitals and nursing note reviewed. Constitutional: Appearance: Normal appearance. HENT: Head: Normocephalic and atraumatic. Eyes: Extraocular Movements: Extraocular movements intact. Conjunctiva/sclera: Conjunctivae normal. Pupils: Pupils are equal, round, and reactive to light. Cardiovascular: Rate and Rhythm: Normal rate and regular rhythm. Pulses: Normal pulses. Heart sounds: Normal heart sounds. Pulmonary: Effort: Pulmonary effort is normal. Breath sounds: Normal breath sounds. Abdominal: General: Abdomen is flat. Bowel sounds are normal. Palpations: Abdomen is soft. Musculoskeletal: General: Normal range of motion. Cervical back: Normal range of motion and neck supple. Skin: General: Skin is warm. Neurological: General: No focal deficit present. Mental Status: He is alert and oriented to person, place, and time. Psychiatric: Mood and Affect: Mood normal. Behavior: Behavior normal. Thought Content: Thought content normal. Judgment: Judgment normal. . Screenings Future Falls: 15. Have you fallen in the last year?: (!) Yes 24A. Fall >2 x or injured from the fall?: (!) Yes (fracture right elbow.) Depression: PHQ-2: PHQ-9: ASSESSMENT: Encounter Diagnoses Name Primary? 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, without long-term current use of insulin, unspecified retinopathy severity (HCC) Hypertension associated with diabetes (HCC) Alzheimer's dementia without behavioral disturbance ([facility]) PLAN: Orders Placed This Encounter amoxicillin-clavulanate (Augmentin) 875-125 MG tablet Sig: Take 1 (one) tablet by mouth 2 times daily with morning and evening meal for 10 days Reasons: Infection of the Skin and/or Skin Structures Dispense: 20 tablet Refill: 0 triamcinolone acetonide (Kenalog) 0.1 % cream Sig: Apply to affected area 2 times daily Reasons: Skin Inflammation Dispense: 80 g Refill: 1 senna-docusate (Senokot-S) 8.6-50 MG tablet Sig: Take 1 (one) tablet by mouth once daily Reasons: Constipation Dispense: 30 tablet Refill: 5 Previous notes reviewed the patient Medication reviewed the patient Labs and imaging reviewed the patient Discussed with the patient the finding plan treatment, agreed to the plan. -cellulitis: Start Augmentin 875 mg p.o. twice a day for 10 days. Tylenol 650 mg p.o. q.6 hours as needed for fever as needed. Dermatitis: Kenalog 0.1 % twice a day for 4 weeks. Constipation: Prune juice daily. Dry prune daily. Drink plenty of fluid. Senokot S suppository as needed daily. If no improvement consider KUB. Hallucination in dementia the patient: Causes diagnosis of treatment explained to the patient. Explained to the family to let familiar faces on daily basis. More likely during the day. Consider Zyprexa with agitation as needed. Continue Namenda 5 mg p.o. twice a day. Diabetes with hypertension, hyperlipidemia, retinopathy, neuropathy and hyperglycemia 1800 calories diabetic diet encouraged Check the feet on daily basis looking for callus lesions. Continue glipizide 5 mg p.o. twice a day. Consider changing glipizide to metformin or similar because of possibility of hyperglycemia. Low-cholesterol diet encouraged. Check blood pressure frequently bring the log visit. Follow-up with the ophthalmology for diabetic eye exam. Keep fasting sugar between 80-130 and 2 hours after each meal less than 180. Follow-up as needed. Further recommendations pending the above results and patient's clinical coarse. The patient indicates understanding of these issues and agrees with the plan. No follow-ups on file. MANAGEMENT SPECIALIST * Maria Herrera RMA - 03/06/2024 2:30 PM CST Patient age [age] year old Do you have a diagnosis of Diabetes? Yes (If patient is younger than 22 and / or does not have a diabetic diagnosis, patient does not qualify for the IDx DR screening.) IDx - DR Contraindications Screening Have you had a retinal screening in the last 12 months? No Are you ? No Do you have vision loss that cannot be corrected with glasses (blurred vision or floaters)? No Have you been diagnosed with macular edema, proliferative retinopathy, radiation retinopathy, or retinal vein occlusion? No Have you had laser treatment of the retina, injections into either eye, or retinal surgery? No Are you hypersensitive to light or do you take medication that causes photosensitivity? No Have you had photodynamic therapy for the treatment of any disease? No If any of the above criteria is answered yes, DO NOT ORDER. Patient does meet criteria for diabetic bilateral retinal imaging through IDx MANAGEMENT SPECIALIST documented in this encounter Plan of Treatment Upcoming Encounters Date Type Department Care Team (Late st Contact Info) Description 04/07/2024 10:00 AM CASE MANAGEMENT SPECIALIST Office Visit [facility] [id number] [place] [address] Evelin Blanco, JOSETTE-RN ACLS [id number] [place] [address] 06/06/2024 2:00 PM CDT Office Visit [facility] [id number] [place] [address] Chris Aden [place] [id number] [place] [phone] documented as of this encounter Goals Goal Patient Goal Type Associated Problems Recent Progress Patient-Stated? Author Blood Pressure < 140/90 Blood Pressure 96/68(2023 2:34 PM CASE MANAGEMENT SPECIALIST) Rere Vargas Note: Caring for Your High [...] I go for more information? [place] Heart Association National Center: http://www.americanheart.org 1. In the top header, click ? Conditions? . 2. In the top header, click ? high blood pressure.? 3. For a printable blood pressure tracker, scroll toward the bottom of the page to Related Tools, and click ? HBP Trackers.? 6-478-ENC-USA-1 or ( ) National Heart, Lung and Blood [place]: http://www.nhlbi.nih.gov/health/infoctr/index.htm Blood Pressure < 140/90 Blood Pressure 96/68(2023 2:34 PM CASE MANAGEMENT SPECIALIST) Rere Vargas Note: Caring for Your High [...] I go for more information? [place] Heart Association National Center: http://www.americanheart.org 1. In the top header, click ? Conditions? . 2. In the top header, click ? high blood pressure.? 3. For a printable blood pressure tracker, scroll toward the bottom of the page to Related Tools, and click ? HBP Trackers.? 5-550-GRC-USA-1 or ( ) National Heart, Lung and Blood [place]: http://www.nhlbi.nih.gov/health/infoctr/index.htm Blood Pressure < 140/90 Blood Pressure 96/68(2023 2:34 PM CASE MANAGEMENT SPECIALIST) Cassie Parks Note: Caring for Your High [...] I go for more information? [place] Heart Association National Center: http://www.americanheart.org 1. In the top header, click ? Conditions? . 2. In the top header, click ? high blood pressure.? 3. For a printable blood pressure tracker, scroll toward the bottom of the page to Related Tools, and click ? HBP Trackers.? 9-055-RUM-USA-1 or ( ) National Heart, Lung and Blood [place]: http://www.nhlbi.nih.gov/health/infoctr/index.htm Exercise 5X per week (30 min per time) Exercise No Rere Kaufman Note: The [place] College of Sports Medicine recommends all adults [...] manage your diabetes: ? ? [place] Diabetes Association: www.diabetes.org 3-835-XYRGMKXD ( ) ? ? [place] Diabetes Association-Support group line: www.professional.diabetes.org ? ? [place] Heart Association: www.heart.org or 9-799-POX-USA-1 ( ) [employer] MyPlate: www.[employer] Fundmyplate.gov Have labs drawn Lifestyle No Rere Kaufman [...] as of this encounter Visit Diagnoses Diagnosis Slow transit constipation- Primary Type 2 diabetes mellitus with diabetic neuropathy, unspecified whether terminal gauger insulin use (HCC) Cellulitis of face Cellulitis and abscess of face Dermatitis Contact dermatitis and other eczema, due to unspecified cause Type 2 diabetes mellitus with hyperlipidemia (HCC) Type 2 diabetes mellitus with hyperglycemia, without long-term current use of insulin (HCC) 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, without long-term current use of insulin, unspecified retinopathy severity (HCC) Hypertension associated with diabetes (HCC) Type II or unspecified type diabetes mellitus with other specified manifestations, not stated as uncontrolled Alzheimer's dementia without behavioral disturbance (HCC) Alzheimer's disease documented in this encounter Care Teams Diamond Cutter Relationship Specialty [place] [id number] [place] [phone] PCP - General Internal Medicine 01/26/22 [place] [address] [place] [phone] PCP - [facility] 02/19/22 [place] [address] [phone] Ophthalmology 04/06/16 Fawn Ramon DPM [address] [place] [address] Podiatry 01/24/21 documented as of this encounter
--- OUTSIDE RECORDS SUMMARY | 2024-04-03 00:57 | XMS_ITS | Encounter Summary ---
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 Name Role Phone Ricco Andrew MD Unavailable [phone] Fawn Ramon DPM Unavailable [phone] Chris Aden MD Primary Care Provider [phone] Chris Aden MD Unavailable Reason for Visit * Reason Onset Date Comments Update 02/14/2024 Pneumonia 02/14/2024 Encounter Details Date Type Department Care Team (Late st Contact Info) Description 02/14/2024 Telephone [facility] - Family Medicine [id number] [place] [address] [place] [id number] [phone] Update; Pneumonia Social History Tobacco Use Types Packs/Day Years [...] PM CDT documented as of this encounter Miscellaneous Notes * Telephone Encounter - Aby Dyer RN - 02/14/2024 2:06 PM CST Pt daughter (on HIPAA) calling stating pt was at [facility] on 02/13/24. Pt did not want to get out of bed and was not comprehending on 02/13/24. Pt daughter states pt looked pale and was weak. Pt had blood work, COVID test, urine test, chest x-ray, and era scan while at the hospital. Pt daughter states the chest x-ray showed left sided pneumonia. Pt was prescribed Levofloxacin 700 mg for 5 days. Pt daughter was advised by [facility] that office would have to call and request pt records.[facility] phone number is [phone]. Pt daughter scheduled pt a hospital follow-up on 02/22/24 at 1400 with ASHER See. IFIED NURSES AIDE documented in this encounter Plan of Treatment Upcoming Encounters Date Type Department Care Team (Late st Contact Info) Description 04/07/2024 10:00 AM CERTIFIED NURSES AIDE Office Visit [facility] [id number] [place] [address] [place] [address] Evelin Blanco, JOSETTE-ACCOUNT EXECUTIVE SALES REPRESENTATIVE [id number] [place] [address] 06/06/2024 2:00 PM CDT Office Visit [facility] [id number] [place] [address] [address] [place] [address] [place] [id number] [place] [phone] documented as of this encounter Goals Goal Patient Goal Type Associated Problems Recent Progress Patient-Stated? Author Blood Pressure < 140/90 Blood Pressure 96/68(2023 2:34 PM CERTIFIED NURSES AIDE) Rere Vargas Note: Caring for Your High [...] Where can I go for more information? [place] Heart Association National Center: http://www.americanheart.org 1. In the top header, click ? Conditions? . 2. In the top header, click ? high blood pressure.? 3. For a printable blood pressure tracker, scroll toward the bottom of the page to Related Tools, and click ? HBP Trackers.? 2-695-JQA-USA-1 or ( ) National Heart, Lung and Blood [place]: http://www.nhlbi.nih.gov/health/infoctr/index.htm Blood Pressure < 140/90 Blood Pressure 96/68(2023 2:34 PM CERTIFIED NURSES AIDE) Rere Vargas Note: Caring for Your High [...] Where can I go for more information? [place] Heart Association National Center: http://www.americanheart.org 1. In the top header, click ? Conditions? . 2. In the top header, click ? high blood pressure.? 3. For a printable blood pressure tracker, scroll toward the bottom of the page to Related Tools, and click ? HBP Trackers.? 3-969-LFM-USA-1 or ( ) National Heart, Lung and Blood [place]: http://www.nhlbi.nih.gov/health/infoctr/index.htm Blood Pressure < 140/90 Blood Pressure 96/68(2023 2:34 PM CERTIFIED NURSES AIDE) Cassie Parks Note: Caring for Your High [...] Where can I go for more information? [place] Heart Association National Center: http://www.americanheart.org 1. In the top header, click ? Conditions? . 2. In the top header, click ? high blood pressure.? 3. For a printable blood pressure tracker, scroll toward the bottom of the page to Related Tools, and click ? HBP Trackers.? 4-435-FOH-USA-1 or ( ) National Heart, Lung and Blood [place]: http://www.nhlbi.nih.gov/health/infoctr/index.htm Exercise 5X per week (30 min per time) Exercise No Rere Kaufman Note: The [place] College of Sports Medicine recommends all adults [...] how to manage your diabetes: ? ? [place] Diabetes Association: www.diabetes.org 8-860-TOAESTZQ ( ) ? ? [place] Diabetes Association-Support group line: www.professional.diabetes.org ? ? [place] Heart Association: www.heart.org or 4-627-JWO-USA-1 ( ) [employer] MyPlate: www.choosemyplate.gov Have labs drawn Lifestyle No Rere Kaufman [...] on filedocumented in this encounter Care Teams Carbon Sequestration Plant Engineer Relationship Specialty [place] [address] [place] [phone] PCP - General Internal Medicine 01/26/22 [place] [address] [place] [phone] PCP - [facility] 02/19/22 [place] [address] [facility] [address] [place] [phone] Ophthalmology 04/06/16 Fawn Ramon DPM [address] [place], [place] [phone] Podiatry 01/24/21 documented as of this encounter
--- OUTSIDE RECORDS SUMMARY | 2024-04-03 00:57 | XMS_ITS | Clinical Summary ---
Author Organization [facility] Address [address] [address] Care Team Providers Care Manager Of Maintenance Name Role Phone Ricco Andrew MD Unavailable [phone] Fawn Ramon DPM Unavailable [phone] Chris Aden MD Primary Care Provider [phone] Chris Aden MD Unavailable Source Comments [facility],non-owned Affiliates and Associated Physician Practices is amultiple site organization consisting of ambulatory clinics and hospital sitesin [place], [place], [place] and [place]. This disclosure is being madepursuant to the Care Everywhere program and may not contain all information available regarding this patient. Last updated 17.[facility] Allergies Active Allergy Reactions Criticality Noted Date Comments Ibuprofen Other 02/05/2016 HE HAS CKD AND SHOULD NOT TAKE NSAID'S Sulfamethoxazole W-Trimethoprim Rash Medium 01/25/2021 Medications * Be aware that medications may not be up to date on this document. Alwaysverify current medications with the patient. Medication Sig Dispensed Refills Start Date End Date Status DIONICIO ASPIRIN REGIMEN PO Take 81 mg by mouth once daily Active ONETOUCH ULTRA TEST STRIPS test strip Use 1 strip once daily (One touch mini test strips) 100 strip 2 05/03/2018 Active Additional Information Patient taking differently:1 strip Does not apply2 TIMES DAILY, (One touch mini test strips), Reported on 01/26/2022 Acetaminophen (TYLENOL ARTHRITIS PAIN PO) Take 650 mg by mouth 2 times daily Active ONE TOUCH ULTRASOFT LANCETS MISC Use 1 Each 2 times daily 33 lucy Active Blood Glucose Monitoring Suppl (ONE TOUCH ULTRA 2) w/Device KIT Use 1 Each 2 times daily Active Polyethylene Glycol 3350 Active ketoconazole (Nizoral) 2 % shampooIndicati ons:Seborrheic Dermatitis of Scalp APPLY TO AFFECTED AREA THREE TIMES A WEEK REASONS: DANDRUFF 120 mL 5 05/12/2023 Active [facility] Purelax 17 GM/SCOOP powder TAKE 1 CAPFUL (17G) BY MOUTH DISSOLVED IN 4-8 OZ OF WATER OR JUICE ONCE DAILY 510 g 3 05/21/2023 Active Additional Information Patient taking differently: 8.5 g Oral DAILY PRN, Constipation, Informant: Other, Reported on 02/28/2024 Vitamin D3 (25 MCG) 1000 UNIT capsuleIndicati ons:Vitamin D Deficiency Take 1 (one) capsule by mouth once daily Reasons: Vitamin D Deficiency 30 capsule 06/01/2023 Active loratadine (Claritin) 10 MG tablet Take 1 (one) tablet by mouth once daily 90 tablet 4 09/03/2023 Active Additional Information Patient not taking.Reported on 02/28/2024 menthol-zinc oxide (Calmoseptine) 0.44-20.625 % ointment Apply to affected area 2 times daily On both buttocks and at coccyx. 113 g 2 10/13/2023 Active melatonin 3 MG tablet Take 5 mg by mouth at bedtime Active memantine (Namenda) 5 MG tablet Take 1 (one) tablet by mouth 2 times daily 180 tablet 2 01/03/2024 Active glipiZIDE (Glucotrol) 5 MG tablet Take 1 (one) tablet by mouth 2 times daily, before breakfast and supper DX: Type 2 diabetes mellitus with diabetic neuropathy, without long-term current use of insulin (HCC) E11.40 180 tablet 2 01/10/2024 Active levothyroxine (Synthroid) 75 MCG tablet TAKE 1 TABLET BY MOUTH EVERY DAY BEFORE BREAKFAST 90 tablet 3 02/22/2024 Active triamcinolone acetonide (Kenalog) 0.1 % creamIndication s:Dermatitis Apply to affected area 2 times daily Reasons: Skin Inflammation 80 g 1 03/06/2024 Active senna-docusate (Senokot-S) 8.6-50 MG tabletIndicatio ns:Constipation Take 1 (one) tablet by mouth once daily Reasons: Constipation 30 tablet 5 03/06/2024 Active docusate sodium (Colace) 100 MG capsule Take 1 (one) capsule by mouth 2 times daily 180 capsule 3 03/31/2024 Active docusate sodium (Colace) 100 MG capsule TAKE 1 CAPSULE BY MOUTH TWICE A DAY 180 capsule 3 03/31/2023 03/31/19 25 Discontinued amoxicillin-cla vulanate (Augmentin) 875-125 MG tabletIndicatio ns:Skin and Skin Structure Infection Take 1 (one) tablet by mouth 2 times daily with morning and evening meal for 10 days Reasons: Infection of the Skin and/or Skin Structures 20 tablet 03/06/2024 03/16/20 24 Active Problems Problem Noted Date Diagnosed Date Anemia in chronic kidney disease 03/06/2024 Iron deficiency anemia 03/06/2024 Proteinuria 03/06/2024 Renal osteodystrophy 03/06/2024 Slow transit constipation 03/06/2024 Cellulitis of face 03/06/2024 Dermatitis 03/06/2024 Adult failure to thrive 02/23/2024 Volume depletion 02/23/2024 Hypotension, unspecified hypotension type 2023 Abnormal gait 02/09/2024 Fall 02/09/2024 Type 2 diabetes mellitus wit h hyperglycemia, without long-term current use of insulin 02/09/2024 Acute cystitis without hematuria 02/09/2024 Essential hypertension 12/02/2023 Hypertension associated with diabetes 12/02/2023 Type 2 diabetes mellitus with hyperlipidemia 02/2024 Screening, lipid 06/01/2023 Traumatic cephalohematoma 05/26/2022 Fall 05/26/2022 Vitamin D deficiency 05/26/2022 Slow transit constipation 05/26/2022 Routine general medical exam ination at a health care facility 01/26/2022 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 [facility] on 09/03/2020 Description: DM. File category: Document. Associated with: Note written by Document, Scanned from Ext.Scan Order on 09/03/2020. Skin-picking disorder 07/23/2016 Overview (07/23/2016): encouraged to stop picking. I have some concern a few of his scabs may be SCCs or AKs, but reprots insurance would not cover derm eval 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 02/05/2016 Overview (01/17/2021): Component Latest Ref Rng & Units 03/04/2020 08/30/2019 08/29/2018 eGFR by MDRD mL/min/1.73m2 47 40 45 08/30/19 Rosana Solo MD Family Medicine 02/28/19 Rosana Solo MD Family Medicine Hypothyroidism, adult 02/05/2016 Alzheimer's dementia without behavioral disturba nce 02/05/2016 Overview (01/30/2020): 11/07/19 Rosana Solo MD Family Medicine 02/28/19 Rosana Solo MD Family Medicine Seasonal allergic rhinitis 02/05/2016 Osteoarthrosis 12/14/2012 10/27/2022 Wrist arthritis 09/09/2012 10/27/2022 Type 2 diabetes mellitus with diabetic neuropath y 09/07/2012 Overview (01/30/2020): 08/30/19 Rosana Solo MD Family Medicine 02/28/19 Rosana Solo MD Family Medicine Wrist pain, left 09/07/2012 10/27/2022 Depression 03/04/2012 10/27/2022 Weak 03/04/2012 10/27/2022 Weight loss, abnormal 03/04/2012 10/27/2022 Resolved Problems Problem Noted Date Diagnosed Date Resolved Date Type 2 diabetes mellitus wit h hyperglycemia, without long-term current use of insulin 12/02/2023 02/09/2024 Diabetes mellitus due to und erlying condition with stage 3 chronic kidney disease 12/02/202301/21 Screening, lipid 05/26/2022 06/01/2023 Febrile convulsion 05/25/2022 Stage 3b chronic kidney disease 01/26/2022 03/06/2024 CKD (chronic kidney disease) stage 3, GFR 30-59 ml/min 09/11/2021 01/26/2022 Overview (09/11/2021): Component Latest Ref Rng & Units 03/04/2021 03/04/2020 08/30/2019 eGFR by MDRD mL/min/1.73m2 40 47 40 Diabetic eye exam 09/02/2020 03/04/2021 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 resolved COPD (chronic obstructive pulmonary disease) 2 10/27/2022 10/27/2022 Laceration 05/05/2011 10/27/2022 12/08/2022 Encounters Date Type Department Care Team Description 03/30/2024 Telephone [facility] [id number] [place] [address] [place] [id number] Chris Aden MD Home Health; Order 03/30/2024 Refill [facility] [id number] [place] [address] [place] [phone] Chris Aden MD Refill Request 03/09/2024 Telephone [facility] [id number] [place] [address] [place] [phone] Chris Aden MD SHAKING; Fatigue; Slurred Speech; Chest Pain 03/06/2024 2:30 PM BERRY PICKER MACHINE OPERATOR Office Visit [address] [address] Chris Aden MD Slow transit constipation (Primary Dx); Type 2 diabetes mellitus with diabetic neuropathy, unspecified whether usp insulin use (HCC); Cellulitis of face; Dermatitis; Type 2 diabetes mellitus with hyperlipidemia (HCC); Type 2 diabetes mellitus with hyperglycemia, without long-term current use of insulin (HCC); 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, without long-term current use of insulin, unspecified retinopathy severity (HCC); Hypertension associated with diabetes (HCC); Alzheimer's dementia without behavioral disturbance (HCC) 02/28/2024 Travel 02/28/2024 [facility]itional [facility] - Care Coordination [address] [place] [address] Clarice Hansen RNcounty program technician 02/23/2024 2:47 PM BERRY PICKER MACHINE OPERATOR - 02/26/2024 4:21 PM BERRY PICKER MACHINE OPERATOR Hospital Encounter [address] [address] [place] [id number] Britton Llamas, DO Datar, MD Jessica Lazcano Imran A, MD Internal Medicine Discharge Disposition: Home or Self Care 02/23/2024 2:00 PM BERRY PICKER MACHINE OPERATOR Office Visit [address] [address] Evelin Blanco, JOSETTE-OFFICE SERVICES MANAGER Hypotension, unspecified hypotension type (Primary Dx) 02/23/2024 Travel 02/21/[address] [address] Chris Aden MD Record Request 02/18/[address] [address] Chris Aden MD Refill Request 02/14/[address] [address] Chris Aden MD Update; Pneumonia 02/11/2024 Orders Only [address] [address] Chris Aden MD 02/09/2024 1:15 PM BERRY PICKER MACHINE OPERATOR Clinical Support [address] [address] Need for vaccination ; Need for prophylactic vaccination and inoculation against influenza 02/09/2024 11:30 AM BERRY PICKER MACHINE OPERATOR Office Visit [address] [place] [address] Chris Aden MD Abnormal gait (Primary Dx); Fall, initial encounter; Type 2 diabetes mellitus with hyperglycemia, without long-term current use of insulin (HCC); Acute cystitis without hematuria; Type 2 diabetes mellitus with stage 3 chronic kidney disease, without long-term current use of insulin, unspecified whether stage 3a or 3b CKD (HCC); Type 2 diabetes mellitus with hyperlipidemia (HCC); 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, without long-term current use of insulin, unspecified retinopathy severity (HCC); Type 2 diabetes mellitus with diabetic neuropathy, without long-term current use of insulin (HCC); Hypertension associated with diabetes (HCC); Stage 3b chronic kidney disease (HCC); Alzheimer's dementia without behavioral disturbance (HCC) 01/25/[address] [place], [place] [id number] Chris Aden MD Injury Elbow 01/08/[address] [place] [address] Chris Aden MD Refill Request from Last 3 Months Immunizations Name Administration Dates Next Due COVID PFIZER BIVALENT 12Y+ 30mcg/0.3ML 05/26/2022 Covid Moderna primary monova lent 12+ yr 0.5mL 03/16/2021,07/10/2020,06/12/2020 HEP A VACCINE, ADULT 01/15/2003,07/13/2002 INFLUENZA VACCINE 02/09/2023, 9,03/02/2018,2016,02/05/2016 INFLUENZA VACCINE, ADJUVANTE D, QUADR. (FLUAD QUADRIVALENT; 65Y+) (AIIV4) 02/09/2023,01/26/2022,03/04/2021 INFLUENZA VACCINE, ADJUVANTE D, TRIV. (FLUAD TRIVALENT; 65Y+) (AIIV3) 02/09/2024 INFLUENZA VACCINE, HIGH-DOSE , QUADR. (FLUZONE HIGH-DOSE QUADRIVALENT; 65Y+), 0.7 ML (HD-IIV4) 03/04/2020,02/28/2019,03/02/2018,2016,02/05/2016 INFLUENZA VACCINE, HIGH-DOSE , TRIV. (FLUZONE HIGH-DOSE TRIVALENT; 65Y+) (HD-IIV3) 02/28/2019,03/02/2018,03/01/2017,2015 PNEUMOCOCCAL PCV20 CONJ VAC IM 02/10/2024,2023 PNEUMOCOCCAL PPSV23 07/25/2012 Pneumococcal Pcv13 Conj 03/02/2018 TDAP (7yrs+) 10/04/2019 TETANUS 10/03/2019 Social History Tobacco Use Types Packs/Day Years [...] Recorded Patient Health Questionnaire-2 Score 2 03/06/2024 [facility] [place] [facility] Occupat ional [facility] - Occupational Stress [...] any time in the past 12 m [facility], were you homeless or living in a half-way (including now)? No 02/24/2024 Sex and Gender Information Value Date Recorded Sex Assigned at Male 01/22/2023 1:45 PM CDT Gender Identity Male 01/22/2023 1:45 PM CDT Sexual Orientation Straight 01/22/2023 1: 45 PM CDT Last Filed Vital Signs Vital Sign Reading Time Taken Comments Blood Pressure 96/68 03/06/2024 2:34 PM BERRY PICKER MACHINE OPERATOR Pulse 70 03/06/2024 2:34 PM BERRY PICKER MACHINE OPERATOR Temperature 36.7 ??C (98 ??F) 03/06/2024 2:34 PM BERRY PICKER MACHINE OPERATOR Respiratory Rate 18 03/06/2024 2:34 PM BERRY PICKER MACHINE OPERATOR Oxygen Saturation 96% 03/06/2024 2:34 PM BERRY PICKER MACHINE OPERATOR Inhaled Oxygen Concentration - - Weight 65.8 kg (145 lb) 02/24/2024 12:31 AM BERRY PICKER MACHINE OPERATOR Height 170.2 cm (5' 7) 03/06/2024 2:34 PM BERRY PICKER MACHINE OPERATOR Body Mass Index 22.71 02/24/2024 12:31 AM BERRY PICKER MACHINE OPERATOR Plan of Treatment Upcoming Encounters Date Type Department Care Team (Late st Contact Info) Description 04/07/2024 10:00 AM BERRY PICKER MACHINE OPERATOR Office Visit [facility] [address] [place] [address] Evelin Blanco, ADMITTANCE ATTENDANT-OFFICE SERVICES MANAGER [address] [facility] [address] [place] [address] 06/06/2024 2:00 PM CDT Office Visit [facility] [address] [facility] [address] [place] [address] [place] [id number] [place] [address] Health Maintenance Due Date Last Done Comments ZOSTER VACCINE (1 of 2) 05/28/1987 Respiratory Syncytial Virus (RSV) Vaccine Pt: or over 60 yrs (1 - 1-dose 75+ series) 2012 DIABETES RETINOPATHY SCREENING 01/07/2023 01/07/2022, 04/04/2020, 05/06/2018, Additional history exists COVID-19 VACCINE ( season) 2023 05/26/2022, 03/16/2021, 07/10/2020, Additional history exists DEPRESSION SCREENING 03/22/2024 06/01/2023, 01/05/2023, 10/27/2022, Additional history exists MEDICARE AWV ? CALENDAR YEAR 2024 06/01/2023, 05/26/2022, 01/26/2022, Additional history exists DIABETES-HGB A1C 05/31/2024 12/02/2023, 02/2024, 10/27/2022, Additional history exists DIABETES-FOOT EXAM WITH MONOFILAMENT 03/06/2025 03/06/2024, 01/05/2023, 05/26/2022, Additional history exists DTAP/TDAP/TD VACCINES (3 - Td or Tdap) 10/03/2029 10/04/2019, 10/03/2019 INFLUENZA VACCINE Completed 02/09/2024, , 02/09/2023, Additional history exists PNEUMOCOCCAL VACCINE 50+ Completed 024, 02/09/2024, 03/02/2018, Additional history exists HEPATITIS B VACCINE Aged Out No longe r eligible based on patient's age to complete this topic HIB VACCINE Aged Out No longer eligi ble based on patient's age to complete this topic HPV VACCINE Aged Out No longer eligi ble based on patient's age to complete this topic MENINGOCOCCAL (Group B) VACCINE Aged Out No longer eligible based on patient's age to complete this topic MENINGOCOCCAL VACCINE Aged Out No mary edson eligible based on patient's age to complete this topic Goals Goal Patient Goal Type Associated Problems Recent Progress Patient-Stated? Author Blood Pressure < 140/90 Blood Pressure 96/68(2023 2:34 PM BERRY PICKER MACHINE OPERATOR) Rere Vargas Note: Caring for Your High [...] Where can I go for more information? [place] [employer] National Center: http://www.americanheart.org 1. In the top header, click ? Conditions? . 2. In the top header, click ? high blood pressure.? 3. For a printable blood pressure tracker, scroll toward the bottom of the page to Related Tools, and click ? HBP Trackers.? 8-312-BGL-USA-1 or ( ) National Heart, Lung and Blood [place]: http://www.nhlbi.nih.gov/health/infoctr/index.htm Blood Pressure < 140/90 Blood Pressure 96/68(2023 2:34 PM BERRY PICKER MACHINE OPERATOR) Rere Vargas Note: Caring for Your High [...] Where can I go for more information? [employer] National Center: http://www.americanheart.org 1. In the top header, click ? Conditions? . 2. In the top header, click ? high blood pressure.? 3. For a printable blood pressure tracker, scroll toward the bottom of the page to Related Tools, and click ? HBP Trackers.? 9-572-HVM-USA-1 or ( ) National Heart, Lung and Blood [place]: http://www.nhlbi.nih.gov/health/infoctr/index.htm Blood Pressure < 140/90 Blood Pressure 96/68(2023 2:34 PM BERRY PICKER MACHINE OPERATOR) Cassie Parks Note: Caring for Your High [...] Where can I go for more information? [employer] National Center: http://www.americanheart.org 1. In the top header, click ? Conditions? . 2. In the top header, click ? high blood pressure.? 3. For a printable blood pressure tracker, scroll toward the bottom of the page to Related Tools, and click ? HBP Trackers.? 5-928-PPF-USA-1 or ( ) National Heart, Lung and Blood [place]: http://www.nhlbi.nih.gov/health/infoctr/index.htm Exercise 5X per week (30 min per time) Exercise Rere Vargas Note: The [employer] recommends all adults [...] how to manage your diabetes: ? ? [place] Diabetes Association: www.diabetes.org 0-682-JFKIBVUH ( ) ? ? [place] Diabetes Association-Support group line: www.professional.diabetes.org ? ? [place] Heart Association: www.heart.org or 1-790-OAR-USA-1 ( ) [employer] MyPlate: www.Adayanamyplate.gov Have labs drawn Lifestyle Rere Vargas Note: [...] exam notes are sent to our office. Procedures Procedure Name Priority Date/Time Associated Diagnosis Comments GLUCOSE - POINT OF CARE Routine 02/25/2024 6:04 PM BERRY PICKER MACHINE OPERATOR SARS-COV-2 (COVID-19) RAPID Routine 02/25/2024 3:12 PM BERRY PICKER MACHINE OPERATOR Wrist arthritis GLUCOSE - POINT OF CARE Routine 02/25/2024 12:05 PM BERRY PICKER MACHINE OPERATOR BASIC METABOLIC PANEL (CALCIUM TOTAL) AM Draw 02/25/2024 4:14 AM BERRY PICKER MACHINE OPERATOR Weight loss, abnormal CARDIAC EKG ORDER 02/24/2024 6:3 5 PM BERRY PICKER MACHINE OPERATOR GLUCOSE - POINT OF CARE Routine 02/24/2024 5:59 PM BERRY PICKER MACHINE OPERATOR URINALYSIS REFLEX MICROSCOPIC REFLEX CULTURE STAT 02/24/2024 5:43 AM BERRY PICKER MACHINE OPERATOR TSH REFLEX FREE T4 Routine 02/24/2024 5: 38 AM BERRY PICKER MACHINE OPERATOR Hypotension, unspecified hypotension type Adult failure to thrive Volume depletion MAGNESIUM BLOOD Routine 02/24/2024 5:38 AM BERRY PICKER MACHINE OPERATOR Hypotension, unspecified hypotension type Adult failure to thrive Volume depletion CBC W/O DIFFERENTIAL Routine 02/24/2024 5:38 AM BERRY PICKER MACHINE OPERATOR Hypotension, unspecified hypotension type Adult failure to thrive Volume depletion BASIC METABOLIC PANEL (CALCIUM TOTAL) Routine 02/24/2024 5:38 AM BERRY PICKER MACHINE OPERATOR Hypotension, unspecified hypotension type Adult failure to thrive Volume depletion LACTIC ACID BLOOD REFLEX TO REPEAT Timed STAT 02/24/2024 5:38 AM BERRY PICKER MACHINE OPERATOR TROPONIN-I HIGH SENSITIVE REFLEX 1HOUR Timed 02/23/2024 5:20 PM BERRY PICKER MACHINE OPERATOR XR CHEST 1VW PORTABLE STAT 02/23/2024 5:01 PM BERRY PICKER MACHINE OPERATOR Hypotension, unspecified hypotension type CBC W AUTO DIFFERENTIAL STAT 02/23/2024 4:51 PM BERRY PICKER MACHINE OPERATOR TROPONIN-I HIGH SENSITIVE BASELINE + 1HR STAT 02/23/2024 4:10 PM BERRY PICKER MACHINE OPERATOR LIPASE BLOOD STAT 02/23/2024 4:10 PM BERRY PICKER MACHINE OPERATOR MAGNESIUM BLOOD STAT 02/23/2024 4:10 PM BERRY PICKER MACHINE OPERATOR LACTIC ACID BLOOD REFLEX TO REPEAT STAT 02/23/2024 4:10 PM BERRY PICKER MACHINE OPERATOR COMPREHENSIVE METABOLIC PANEL STAT 02/23/2024 4:10 PM BERRY PICKER MACHINE OPERATOR EKG 12-LEAD STAT 02/23/2024 3:30 PM BERRY PICKER MACHINE OPERATOR Hypotension, unspecified hypotension type HEMOGLOBIN A1C - POINT OF CARE (AMB) Routine 12/02/2023 2:32 PM CDT Type 2 diabetes mellitus with hyperglycemia, without long-term current use of insulin (HCC) DIABETES EYE EXAM Routine 04/04/2020 from Last 3 Months or Most Recently Relevant to Health Maintenance Results * (ABNORMAL) GLUCOSE - POINT OF CARE (02/25/2024 6:04 PM BERRY PICKER MACHINE OPERATOR) Only the most recent of3 resultswithin the time period is included. Glucose WB/POC 225(H) 70 - 99 mg/dL 02/25/2024 10:00 PM BERRY PICKER MACHINE OPERATOR [facility] Specimen Type Cap Fingerstick 2023 10:00 PM BERRY PICKER MACHINE OPERATOR [facility] Blood BLOOD SPECIMEN / Unknown 02/25/2024 6:04 PM BERRY PICKER MACHINE OPERATOR 02/25/2024 10:00 PM BERRY PICKER MACHINE OPERATOR Osiel Lopez MD LAB - POINT OF CARE ORDERABLES [facility] [address] [place] [address] * SARS-COV-2 (COVID-19) RAPID (02/25/2024 3:12 PM BERRY PICKER MACHINE OPERATOR) COVID-19 PCR Not detected Not detected 02/25/20 24 4:02 PM BERRY PICKER MACHINE OPERATOR [facility] Microbiology SPECIMEN FROM NASOPHARYNGEAL STRUCTURE / Unknown Collection / Unknown 02/25/2024 3:12 PM BERRY PICKER MACHINE OPERATOR 02/25/2024 3:27 PM BERRY PICKER MACHINE OPERATOR Narrative [facility] - 02/25/2024 4:02 PM BERRY PICKER MACHINE OPERATOR The [employer] Xpert Xpress SARS-COV-2 has been authorized by the Food and Drug Administration (FDA) under an Emergency Use Authorization (EUA). This test has been validated in accordance with the FDA's guidance document Policy for Diagnostic Testing in Laboratories Certified to perform High Complexity Testing under CLIA prior to Emergency Use Authorization for Coronavirus Disease-2019 during the Public Health Emergency issued on May 20, 2019. FDA independent review of this validation is pending. This test is only authorized for the duration of the time the declaration that circumstances exist justifying the authorization of emergency use of in vitro diagnostic tests for detection of SARS-COV-2 virus and/or diagnosis of COVID-19 infection under 564(b) (1) of the Act. 21 U.S.C. 360bbb-3 (b) (1), unless the authorization is terminated or revoked sooner. Fact Sheets for this EUA assay are available upon request. Osiel Lopez MD LAB - MICROBIOLOGY O RDERABLES [facility] [address] [place] [address] * (ABNORMAL) BASIC METABOLIC PANEL (CALCIUM TOTAL) (02/25/2024 4:14 AM BERRY PICKER MACHINE OPERATOR) Only the most recent of2 resultswithin the time period is included. Pathologist [facility] [place] Glucose 192(H) 70 - 99 mg/dL 02/25/2024 6:02 AM [facility] Sodium 132(L) 136 - 145 mmol/L 02/25/2024 6:02 AM [facility] Potassium 4.2 3.5 - 5.1 mmol/L 02/25/2024 6:02 AM [facility] Chloride 104 98 - 107 mmol/L 02/25/2024 6:02 AM [facility] CO2 20(L) 22 - 29 mmol/L 02/25/2024 6:02 AM [facility] Calcium 8.3(L) 8.4 - 10.4 mg/dL 02/25/2024 6:02 AM [facility] Anion Gap 8 6 - 16 mmol/L 02/25/2024 6:02 AM [facility] BUN 12 7 - 26 mg/dL 02/25/2024 6:02 AM [facility] Creatinine 0.87 0.72 - 1.25 mg/dL 02/25/2024 6:02 AM [facility] eGFR by CKD-EPI 84(L) >=90 mL/min/1.7 3 m2 02/25/2024 6:02 AM [facility] Blood BLOOD SPECIMEN / Unknown Venipuncture / Unknown 02/25/2024 4:14 AM BERRY PICKER MACHINE OPERATOR 02/25/2024 5:43 AM BERRY PICKER MACHINE OPERATOR Osiel Lopez MD LAB - CHEMISTRY ORDE TIRSO [facility] [address] [place] [address] * CARDIAC EKG ORDER (02/24/2024 6:35 PM BERRY PICKER MACHINE OPERATOR) Narrative 02/24/2024 6:35 PM BERRY PICKER MACHINE OPERATOR Ordered by an unspecified provider. Scanned Document CARDIAC SERVICES ORD ERABLES * (ABNORMAL) URINALYSIS REFLEX MICROSCOPIC REFLEX CULTURE (02/24/2024 5:43 AM BERRY PICKER MACHINE OPERATOR) Color UA Yellow Yellow, Straw 02/24/2024 6:53 AM [facility] Clarity UA Clear Clear 02/24/2024 6:53 AM [facility] Glucose UA Normal Normal 02/24/2024 6:53 AM [facility] Bilirubin UA Negative Negative 02/24/2024 6:53 AM [facility] [facility] [place] UA Negative Negative 02/24/2024 6:53 AM [facility] Specific [place] UA 1.023 1.005 - 1.030 02/24/2024 6:53 AM BERRY PICKER MACHINE OPERATOR [facility] Blood UA Negative Negative 02/24/2024 6:53 AM BERRY PICKER MACHINE OPERATOR [facility] pH UA 5.5 5.0 - 9.0 pH 02/24/2024 6:53 AM [facility] Protein UA Trace(A) Negative 02/24/2024 6:53 AM BERRY PICKER MACHINE OPERATOR [facility] Urobilinogen UA Normal Normal mg/dL 024 6:53 AM BERRY PICKER MACHINE OPERATOR [facility] Nitrite UA Negative Negative 02/24/2024 6:53 AM BERRY PICKER MACHINE OPERATOR [facility] Leukocyte UA Negative Negative 02/24/2024 6:53 AM BERRY PICKER MACHINE OPERATOR [facility] Urine URINE SPECIMEN OBTAINED BY CLEAN CATCH PROCEDURE / Unknown Collection / Unknown 02/24/2024 5:43 AM BERRY PICKER MACHINE OPERATOR 02/24/2024 6:44 AM BERRY PICKER MACHINE OPERATOR Narrative [facility] - 02/24/2024 6:53 AM BERRY PICKER MACHINE OPERATOR Britton iSupplitomeka DO LAB - URINALYSIS ORD ERABLES Performing Organization Address [facility] Co de Phone Number [facility] [address] [place] [address] * LACTIC ACID BLOOD REFLEX TO REPEAT (02/24/2024 5:38 AM BERRY PICKER MACHINE OPERATOR) Only the most recent of2 resultswithin the time period is included. Lactic Acid 1.0 <=2.0 mmol/L 02/24/2024 6:22 AM BERRY PICKER MACHINE OPERATOR [facility] Blood BLOOD SPECIMEN / Unknown Venipuncture / Unknown 02/24/2024 5:38 AM BERRY PICKER MACHINE OPERATOR 02/24/2024 5:39 AM BERRY PICKER MACHINE OPERATOR [email or web address] DO LAB - CHEMISTRY ORDE RABLES Performing Organization Address [facility] Co de Phone Number [facility] [address] [place] [address] * TSH REFLEX FREE T4 (02/24/2024 5:38 AM BERRY PICKER MACHINE OPERATOR) TSH 2.611 0.350 - 4.940 uIU/mL 02/24/2024 6:26 AM BERRY PICKER MACHINE OPERATOR [facility] Blood BLOOD SPECIMEN / Unknown Venipuncture / Unknown 02/24/2024 5:38 AM BERRY PICKER MACHINE OPERATOR 02/24/2024 5:38 AM BERRY PICKER MACHINE OPERATOR Navdeep Nazario DO LAB - CHEMISTRY OR DERABLES Performing Organization Address [facility] Co de Phone Number [facility] [id number] [place], [place] [id number] * (ABNORMAL) CBC W/O DIFFERENTIAL (02/24/2024 5:38 AM BERRY PICKER MACHINE OPERATOR) [facility] WBC 6.7 4.0 - 10.7 x10E9/L 02/24/2024 5:46 AM BERRY PICKER MACHINE OPERATOR [facility] RBC Count 3.53(L) 4.30 - 5.80 x10E12/L 02/24/2024 5:46 AM [facility] Hemoglobin 11.0(L) 13.3 - 17.5 g/dL 02/24/2024 5:46 AM [facility] Hematocrit 33.7(L) 38.7 - 51.1 % 02/24/2024 5:46 AM [facility] MCV 95.5 80.0 - 98.0 fL 02/24/2024 5:46 AM [facility] MCH 31.2 26.7 - 33.6 pg 02/24/2024 5:46 AM [facility] MCHC 32.6 31.7 - 36.3 g/dL 02/24/2024 5:46 AM [facility] RDW-CV 13.5 11.3 - 14.8 % 02/24/2024 5:46 AM [facility] Platelet Count 320 150 - 420 x10E9/L 02/24/2024 5:46 AM [facility] MPV 9.3 7.8 - 11.4 fL 02/24/2024 5:46 AM [facility] Blood BLOOD SPECIMEN / Unknown Venipuncture / Unknown 02/24/2024 5:38 AM BERRY PICKER MACHINE OPERATOR 02/24/2024 5:38 AM BERRY PICKER MACHINE OPERATOR Navdeep Nazario DO LAB - HEMATOLOGY O RDERABLES Performing Organization Address City/[facility] Co de Phone Number [facility] [id number] [place] [id number] * MAGNESIUM BLOOD (02/24/2024 5:38 AM BERRY PICKER MACHINE OPERATOR) Only the most recent of2 resultswithin the time period is included. Pathologist [facility] [place] Magnesium 1.8 1.6 - 2.6 mg/dL 02/24/2024 6:19 AM BERRY PICKER MACHINE OPERATOR [facility] Blood BLOOD SPECIMEN / Unknown Venipuncture / Unknown 02/24/2024 5:38 AM BERRY PICKER MACHINE OPERATOR 02/24/2024 5:38 AM BERRY PICKER MACHINE OPERATOR Navdeep Nazario DO LAB - CHEMISTRY OR DERABLES Performing Organization Address [facility] Co de Phone Number [facility] [address] [place] [id number] * TROPONIN-I HIGH SENSITIVE REFLEX 1HOUR (02/23/2024 5:20 PM BERRY PICKER MACHINE OPERATOR) Pathologist [facility] [place] Troponin I High Sensitive <3 <=35 ng/L 02/23/2024 6:14 PM BERRY PICKER MACHINE OPERATOR [facility] Delta Troponin I HS 02/23/2024 6:14 PM BERRY PICKER MACHINE OPERATOR [facility] Comment:Result exceeds linea rity range. A delta value is unable to be calculated. Blood BLOOD SPECIMEN / Unknown Venipuncture / Unknown 02/23/2024 5:20 PM BERRY PICKER MACHINE OPERATOR 02/23/2024 5:47 PM BERRY PICKER MACHINE OPERATOR Britton Llamas DO LAB - CHEMISTRY MELYSSA CHAHAL Performing Organization Address City/[facility]/ZIP Co de Phone Number [facility] [address] [place] [address] * XR CHEST 1VW PORTABLE (02/23/2024 5:01 PM BERRY PICKER MACHINE OPERATOR) Anatomical Region Laterality Modality Chest Computed Radiogr aphy 02/23/2024 5:05 PM BERRY PICKER MACHINE OPERATOR Impressions 02/23/2024 5:06 PM BERRY PICKER MACHINE OPERATOR IMPRESSION: No acute airspace infiltrate. > Interpreting Provider: Jacinda Peng MD on 02/23/2024 5:06 PM Narrative 02/23/2024 5:06 PM BERRY PICKER MACHINE OPERATOR PROCEDURE: ??XR CHEST 1VW PORTABLE DATE/TIME OF EXAM: ??02/23/2024 5:01 PM CLINICAL INFORMATION: None relevant/not provided if blank. Indication: I95.9: Hypotension, unspecified Additional History: COMPARISON: None. FINDINGS: Fibrotic changes in left lower lobe is similar to prior. The lungs otherwise clear. No perifusion or pneumothorax. Cardiac mediastinal silhouette is stable. Aortic arch calcification seen Procedure Note Jacinda Peng MD - 02/23/2024 PROCEDURE: XR CHEST 1VW PORTABLE DATE/TIME OF EXAM: 02/23/2024 5:01 PM CLINICAL INFORMATION: None relevant/not provided if blank. Indication: I95.9: Hypotension, unspecified Additional History: COMPARISON: None. FINDINGS: Fibrotic changes in left lower lobe is similar to prior. The lungs otherwise clear. No perifusion or pneumothorax. Cardiac mediastinal silhouette is stable. Aortic arch calcification seen IMPRESSION: No acute airspace infiltrate. > Interpreting Provider: Jacinda Peng MD on 02/23/2024 5:06 PM Britton Llamas DO DIAGNOSTIC IMAGING O RDERABLES * (ABNORMAL) CBC W AUTO DIFFERENTIAL (02/23/2024 4:51 PM BERRY PICKER MACHINE OPERATOR) WBC 9.3 4.0 - 10.7 x10E9/L 02/23/2024 5:05 PM BERRY PICKER MACHINE OPERATOR [facility] RBC Count 3.49(L) 4.30 - 5.80 x10E12/L 02/23/2024 5:05 PM BERRY PICKER MACHINE OPERATOR [facility] Hemoglobin 11.2(L) 13.3 - 17.5 g/dL 02/23/2024 5:05 PM BERRY PICKER MACHINE OPERATOR [facility] Hematocrit 33.2(L) 38.7 - 51.1 % 02/23/2024 5:05 PM BERRY PICKER MACHINE OPERATOR [facility] MCV 95.1 80.0 - 98.0 fL 02/23/2024 5:05 PM BERRY PICKER MACHINE OPERATOR [facility] MCH 32.1 26.7 - 33.6 pg 02/23/2024 5:05 PM BERRY PICKER MACHINE OPERATOR [facility] MCHC 33.7 31.7 - 36.3 g/dL 02/23/2024 5:05 PM BERRY PICKER MACHINE OPERATOR [facility] RDW-CV 13.6 11.3 - 14.8 % 02/23/2024 5:05 PM [facility] Platelet Count 284 150 - 420 x10E9/L 02/23/2024 5:05 PM [facility] MPV 9.3 7.8 - 11.4 fL 02/23/2024 5:05 PM [facility] Neutrophil % 80.0(H) 41.0 - 74.0 % 02/23/2024 5:05 PM [facility] Lymphocyte % 9.5(L) 17.0 - 47.0 % 02/23/2024 5:05 PM [facility] Monocyte % 9.5 3.0 - 11.0 % 02/23/2024 5:05 PM [facility] Eosinophil % 0.1 0.0 - 7.0 % 02/23/2024 5:05 PM [facility] Basophil % 0.5 0.0 - 1.6 % 02/23/2024 5:05 PM [facility] Immature Granulocytes % 0.4 0.0 - 1.0 % 02/23/2024 5:05 PM [facility] Neutrophil Absolute 7.45 1.60 - 7.50 x10E9/L 02/23/2024 5:05 PM [facility] Lymphocyte Absolute 0.88(L) 1.00 - 4.40 x10E9/L 02/23/2024 5:05 PM [facility] Monocyte Absolute 0.88 0.15 - 1.00 x10E9/L 02/23/2024 5:05 PM [facility] Eosinophil Absolute 0.01 0.00 - 0.60 x10E9/L 02/23/2024 5:05 PM [facility] Basophil Absolute 0.05 0.00 - 0.13 x10E9/L 02/23/2024 5:05 PM [facility] Blood BLOOD SPECIMEN / Unknown Venipuncture / Unknown 02/23/2024 4:51 PM BERRY PICKER MACHINE OPERATOR 02/23/2024 4:59 PM [facility] Britton Llamas DO LAB - HEMATOLOGY ORD ERABLES [facility] [address] [place] [address] * TROPONIN-I HIGH SENSITIVE BASELINE + 1HR (02/23/2024 4:10 PM BERRY PICKER MACHINE OPERATOR) Pathologist [facility] [place] Troponin I High Sensitive 4 <=35 ng/L 02/23/2024 5:03 PM [facility] Blood BLOOD SPECIMEN / Unknown Venipuncture / Unknown 02/23/2024 4:10 PM BERRY PICKER MACHINE OPERATOR 02/23/2024 4:33 PM BERRY PICKER MACHINE OPERATOR Britton Llamas DO LAB - CHEMISTRY [place] TIRSO [facility] [address] [place] [address] * (ABNORMAL) COMPREHENSIVE METABOLIC PANEL (02/23/2024 4:10 PM BERRY PICKER MACHINE OPERATOR) Pathologist [facility] [place] Glucose 178(H) 70 - 99 mg/dL 02/23/2024 4:59 PM [facility] Sodium 132(L) 136 - 145 mmol/L 02/23/2024 4:59 PM [facility] Potassium 4.7 3.5 - 5.1 mmol/L 02/23/2024 4:59 PM [facility] Chloride 99 98 - 107 mmol/L 02/23/2024 4:59 PM [facility] CO2 21(L) 22 - 29 mmol/L 02/23/2024 4:59 PM [facility] Calcium 8.9 8.4 - 10.4 mg/dL 02/23/2024 4:59 PM [facility] Anion Gap 12 6 - 16 mmol/L 02/23/2024 4:59 PM [facility] BUN 18 7 - 26 mg/dL 02/23/2024 4:59 PM [facility] Creatinine 1.19 0.72 - 1.25 mg/dL 02/23/2024 4:59 PM [facility] Alkaline Phosphatase 62 40 - 150 U/L 02/23/2024 4:59 PM [facility] ALT 15 0 - 55 U/L 02/23/2024 4:59 PM [facility] AST 16 5 - 34 U/L 02/23/2024 4:59 PM [facility] Protein Total 6.7 6.4 - 8.3 gm/dL 02/23/2024 4:59 PM BERRY PICKER MACHINE OPERATOR [facility] Albumin 2.6(L) 3.4 - 5.0 gm/dL 02/23/2024 4:59 PM BERRY PICKER MACHINE OPERATOR [facility] Bilirubin Total 0.4 0.2 - 1.2 mg/dL 02/23/2024 4:59 PM BERRY PICKER MACHINE OPERATOR [facility] eGFR by CKD-EPI 59(L) >=90 mL/min/1.7 3 m2 02/23/2024 4:59 PM BERRY PICKER MACHINE OPERATOR [facility] Blood BLOOD SPECIMEN / Unknown Venipuncture / Unknown 02/23/2024 4:10 PM BERRY PICKER MACHINE OPERATOR 02/23/2024 4:33 PM BERRY PICKER MACHINE OPERATOR [facility] - [facility]MISTRY [place] [facility] Performing Organization Address [facility] Co de Phone Number [facility] [address] [place] [address] * LIPASE BLOOD (02/23/2024 4:10 PM BERRY PICKER MACHINE OPERATOR) Pathologist [facility] [place] Lipase <4 <60 U/L 02/23/2024 5:01 PM BERRY PICKER MACHINE OPERATOR [facility] Blood BLOOD SPECIMEN / Unknown Venipuncture / Unknown 02/23/2024 4:10 PM BERRY PICKER MACHINE OPERATOR 02/23/2024 4:33 PM BERRY PICKER MACHINE OPERATOR Britton TOPSEC LAB - [facility]MISTRY [place] [facility] Performing Organization Address [facility] Co de Phone Number [facility] [address] [place] [address] * EKG 12-LEAD (02/23/2024 3:30 PM BERRY PICKER MACHINE OPERATOR) Ventricular Rate 106 BPM [facility] Atrial Rate 106 BPM [facility] P-R Interval 172 ms [facility] QRS Duration ms 128 ms [facility] Q-T Interval ms 364 ms [facility] QTC Calculation (Bezet) 483 ms [facility] Calculated P [place] 36 degrees [facility] Calculated R [place] 76 degrees [facility] Calculated T [place] 21 degrees [facility] Interpretation EKG Sinus tachycardia Right bundle branch block Abnormal ECG No previous ECGs available Confirmed by ÁNGEL HUNTLEY MD ([id number]) on 02/24/2024 9:02:56 AM [facility] 02/23/2024 3:30 PM BERRY PICKER MACHINE OPERATOR 02/24/2024 9:02 AM BERRY PICKER MACHINE OPERATOR Rachna Allan ADMITTANCE ATTENDANT-OFFICE SERVICES MANAGER ECG ORDERA BLES [facility] * HEMOGLOBIN A1C - POINT OF CARE (AMB) (12/02/2023 2:32 PM CDT) Hemoglobin A1c POCT 6.1 % [facility] Expiration Date 2025-08-29 [facility] Lot # [id number] [facility] QC Verified Yes Yes [facility] Blood BLOOD SPECIMEN / Unknown 12/02/2023 2:32 PM CDT Chris Aden MD LAB - POINT OF CARE ORDERABLES [facility] [address] [phone] * DIABETES EYE EXAM (04/04/2020) Scanned Document HEALTH MAINTENANCE from Last 3 Months or Most Recently Relevant to Health Maintenance Advance Directives * Full Code (Latest Code Status on File) Date Activated Date Inactivated Comments 02/24/2024 7:56 AM 02/26/2024 5:22 PM * Full Code Date Activated Date Inactivated Comments 02/23/2024 9:07 PM 02/24/2024 7:56 AM Care Teams Manager Of Maintenance Relationship Specialty [place] [address] [place] [address] PCP - General Internal Medicine 01/26/22 [place] [address] [place] [address] PCP - Attributed-[facility] 02/19/22 [place] [id number] [facility] [address] [place] [id number] Ophthalmology 04/06/16 Fawn Ramon DPM [address] [place] [address] Podiatry 01/24/21
--- OUTSIDE RECORDS SUMMARY | 2024-04-03 00:57 | XMS_ITS | Encounter Summary ---
Author Organization [facility] Address [address] [address] Care Team Providers Care Vocational Childcare Teacher Name Role Phone Ricco Andrew MD Unavailable [phone] Fawn Ramon DPM Unavailable [phone] Chris Aden MD Primary Care Provider [phone] Chris Aden MD Unavailable Reason for Referral * Durable Medical Equipment Purchase - Open Specialty Diagnoses / Procedures Referred By Contac t Referred To Contact Diagnoses Abnormal [place], [place] [id number] [place] [address] Referral ID Status Reason Start Date Expiration Date V isits Requested Visits Authorized [id number] Open Specialty Services Required 02/09/2024 02/08/2025 1 1 LE LAB TECHNICIAN Reason for Visit * Reason Comments Durable Medical Equipment Patient states he would like a wheelchair. Encounter Details Date Type Department Care Team (Latest Contact Info) Description 02/09/2024 11:30 AM MOBILE LAB TECHNICIAN Office Visit [facility] - Family Medicine [id number] [place] [address] [address] [place] [address] [place] [id number] [place] [address] Abnormal gait (Primary Dx); Fall, initial encounter; [...] (HCC); Alzheimer's dementia without behavioral disturbance (HCC) Social History Tobacco Use Types Packs/Day Years [...] Sign Reading Time Taken Comments Blood Pressure 118/78 02/09/2024 11:42 AM MOBILE LAB TECHNICIAN Pulse 96 02/09/2024 11:42 AM MOBILE LAB TECHNICIAN Temperature 36.7 ??C (98 ??F) 02/09/2024 11:42 AM MOBILE LAB TECHNICIAN Respiratory Rate 18 02/09/2024 11:42 AM MOBILE LAB TECHNICIAN Oxygen Saturation 99% 02/09/2024 11:42 AM MOBILE LAB TECHNICIAN Inhaled Oxygen Concentration - - Weight - - Height 170.2 cm (5' 7) 02/09/2024 11:42 AM MOBILE LAB TECHNICIAN Body Mass Index - - documented in this encounter Progress Notes * Maria Herrera RMA - 02/09/2024 1:04 PM CST COVID screening checklist was reviewed with the patient. The Information sheet was given prior to administration. Injection site aseptically cleansed and injection given per Immunization(s) protocol.See Imm/Injections activity for details. Flu screening checklist was reviewed with the patient. VIS was given prior to administration. Injection site aseptically cleansed and injection given per Immunization(s) protocol. See Imm/Injections activIty for details. LE LAB TECHNICIAN * Chris Aden MD - 02/09/2024 11:44 AM CST SUBJECTIVE: Mk Sanches is a 88 year old male here today for Chief Complaint Patient presents with Durable Medical Equipment Patient states he would like a wheelchair. Patient came in today follow-up for abnormal gait and fall few weeks back. Diabetes, hyperlipidemia, chronic kidney disease, retinopathy, neuropathy hypertension. The patient would like wheelchair: Home health. The patient is family stated that you would like help at home take care of the patient. Current Outpatient Medications Medication Sig Dispense Refill [...] mL 5 levothyroxine (Synthroid) 75 MCG tablet Take 1 (one) tablet by mouth daily before breakfast 90 tablet 3 loratadine (Claritin) 10 MG tablet Take 1 [...] OBJECTIVE: BP Readings from Last 3 Encounters: 02/09/24 118/78 12/02/23 108/70 10/13/23 110/62 Wt Readings from Last 3 Encounters: 12/02/23 66.1 kg (145 lb 12.8 oz) 10/13/23 57.5 kg (126 lb 12.8 oz) 09/03/23 67.1 kg (148 lb) BP 118/78 Pulse 96 Temp 98 ??F (36.7 ??C) (Temporal) Resp 18 Ht 1.702 m (5' 7) SpO2 99% Body mass index is 22.84 kg/m??. Physical Exam Vitals and nursing note [...] or injured from the fall?: (!) Yes (fractured right elbow.) Depression: PHQ-2: PHQ-9: ASSESSMENT: Encounter Diagnoses Name Primary? 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, without long-term current use of insulin, unspecified retinopathy severity ([facility]) Type 2 diabetes mellitus with diabetic neuropathy, without long-term current use of insulin ([facility]) Hypertension associated with diabetes ([facility]) Stage 3b chronic kidney disease ([facility]) Alzheimer's dementia without behavioral disturbance ([facility]) PLAN: Orders Placed This Encounter URINALYSIS REFLEX TO MICROSCOPIC NO CULTURE Order Specific Question: Release to patient Answer: Immediate AMB REFERRAL FOR DME Standing Status: Future Standing Expiration Date: 02/08/2025 Referral Type: Durable Medical Equipment Purchase Referral Reason: Specialty Services Required Number of Visits Requested: 1 Previous notes reviewed the patient Medication reviewed the patient Labs and imaging reviewed the patient Discussed with the patient the finding plan treatment, agreed . Abnormal gait and fall: Causes diagnosis of treatment explained to the patient. Timed up and go test more than 12 seconds which put the patient high risk of fall. Wheelchair with feet stand done today to [facility]. Diabetes type 2 with hyperglycemia, kidney disease, hyperlipidemia, hypertension, neuropathy and retinopathy. 1800 calories diabetic diet. Check the feet on daily basis looking for callus lesions Follow-up with the ophthalmology for diabetic eye exam. Continue glipizide 5 mg p.o. twice a day. Consider stopping glipizide because of high risk of hypoglycemia in older people. Diabetes with hyperglycemia: Keep fasting blood sugar between 80-130. Strict control blood sugar. Diabetes with chronic kidney disease: Will monitor creatinine kidney function Strict control blood sugar. Diabetes with hyperlipidemia: Low-cholesterol diet encouraged. Check fasting lipid next visit. Diabetes with hypertension: Low-salt diet Check blood pressure frequently bring the log visit. Diabetes with neuropathy: Strict control blood sugar. Consider gabapentin, but the patient history of fall and very high risk of fall. Diabetes with retinopathy: Strict control blood sugar Follow-up with the ophthalmology for diabetic eye exam. Dementia: Continue Namenda 5 mg p.o. twice a day. Follow-up treatment follow-up as needed. Further recommendations pending the above results and patient's clinical coarse. The patient indicates understanding of these issues and agrees with the plan. No follow-ups on file. LE LAB TECHNICIAN documented in this encounter Plan of Treatment Upcoming Encounters Date Type Department Care Team (Late st Contact Info) Description 04/07/2024 10:00 AM MOBILE LAB TECHNICIAN Office Visit [address] [address] Evelin Blanco, STAPLE SHEAR OPERATOR-SPINE SURGEON [id number] [place] [id number] 06/06/2024 2:00 PM CDT Office Visit [address] [address] Chris Aden MD [address] [place] [phone] Scheduled Orders Name Type Priority Associated Diagnoses Orde r Schedule URINALYSIS REFLEX TO MICROSCOPIC NO CULTURE Lab Routine Acute cystitis without hematuria Ordered: 02/09/2024 Scheduled Referrals Name Type Priority Associated Diagnoses Order Schedule AMB REFERRAL FOR DME Outpatient Referral Routine Abnormal gait Fall, initial encounter 1 Occurrences starting 02/09/2024 until 02/08/2025 documented as of this encounter Goals Goal Patient Goal Type Associated Problems Recent Progress Patient-Stated? Author Blood Pressure < 140/90 Blood Pressure 96/68(2023 2:34 PM MOBILE LAB TECHNICIAN) Rere Vargas Note: Caring for Your High [...] Where can I go for more information? [place] [employer] National Center: http://www.americanheart.org 1. In the top header, click ? Conditions? . 2. In the top header, click ? high blood pressure.? 3. For a printable blood pressure tracker, scroll toward the bottom of the page to Related Tools, and click ? HBP Trackers.? 6-038-AEH-USA-1 or ( ) National Heart, Lung and Blood [place]: http://www.nhlbi.nih.gov/health/infoctr/index.htm Blood Pressure < 140/90 Blood Pressure 96/68(2023 2:34 PM MOBILE LAB TECHNICIAN) Rere Vargas Note: Caring for Your High [...] Where can I go for more information? [place] [employer] National Center: http://www.americanheart.org 1. In the top header, click ? Conditions? . 2. In the top header, click ? high blood pressure.? 3. For a printable blood pressure tracker, scroll toward the bottom of the page to Related Tools, and click ? HBP Trackers.? 0-624-UFX-USA-1 or ( ) National Heart, Lung and Blood [place]: http://www.nhlbi.nih.gov/health/infoctr/index.htm Blood Pressure < 140/90 Blood Pressure 96/68(2023 2:34 PM MOBILE LAB TECHNICIAN) Cassie Parks Note: Caring for Your High [...] Where can I go for more information? [place] [employer] National Center: http://www.americanheart.org 1. In the top header, click ? Conditions? . 2. In the top header, click ? high blood pressure.? 3. For a printable blood pressure tracker, scroll toward the bottom of the page to Related Tools, and click ? HBP Trackers.? 0-552-VDX-USA-1 or ( ) National Heart, Lung and Blood [place]: http://www.nhlbi.nih.gov/health/infoctr/index.htm Exercise 5X per week (30 min per time) Exercise No Rere Kaufman Note: The [place] [employer] recommends all adults [...] how to manage your diabetes: ? ? [place] Diabetes Association: www.diabetes.org 7-209-KPRRFDJZ ( ) ? ? [place] Diabetes Association-Support group line: www.professional.diabetes.org ? ? 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, without long-term current use of insulin, unspecified retinopathy severity (HCC) Type 2 diabetes mellitus with diabetic neuropathy, without long-term current use of insulin (HCC) Hypertension associated with diabetes (HCC) Type II or unspecified type diabetes mellitus with other specified manifestations, not stated as uncontrolled Stage 3b chronic kidney disease (HCC) Alzheimer's dementia without behavioral disturbance (HCC) Alzheimer's disease documented in this encounter Care Teams Vocational Childcare Teacher Relationship Specialty [place] [address] [place] [phone] PCP - General Internal Medicine 01/26/22 [place] [address] [place] [address] PCP - [facility] 02/19/22 [place] [address] [facility] [address] [place] [phone] Ophthalmology 04/06/16 Fawn Ramon DPM [address] [place], [place] [id number] Podiatry 01/24/21 documented as of this encounter
--- OUTSIDE RECORDS SUMMARY | 2024-04-03 00:57 | XMS_ITS | Patient Health Summary ---
Author Organization [facility] Address [address] [place] [address] Care Team Providers Care Certified Orthoptist Name Role Phone Ricco Andrew MD Unavailable [phone] Fawn Ramon DPM Unavailable [phone] Chris Aden MD Primary Care Provider Chris Aden MD Unavailable Note from [facility],non-owned Affiliates and Associated Physician Practices is amultiple site organization consisting of ambulatory clinics and hospital sitesin [place], [place], [place] and [place]. This disclosure is being madepursuant to the Care Everywhere program and may not contain all information available regarding this patient. Last updated 17.[facility] Allergies * Ibuprofen(Other) * Sulfamethoxazole W-Trimethoprim(Rash) -Medium Criticality Medications * Be aware that medications may not be up to date on this document. Alwaysverify current medications with the patient. * DIONICIO ASPIRIN REGIMEN PO Take 81 mg by mouth once daily * ONETOUCH ULTRA TEST STRIPS test strip(Started 05/03/2018) Use 1 strip once daily (One touch mini test strips) 2 refills remaining * Acetaminophen (TYLENOL ARTHRITIS PAIN PO) Take 650 mg by mouth 2 times daily * ONE TOUCH ULTRASOFT LANCETS MISC Use 1 Each 2 times daily 33 lucy * Blood Glucose Monitoring Suppl (ONE TOUCH ULTRA 2) w/Device KIT Use 1 Each 2 times daily * Polyethylene Glycol 3350 * ketoconazole (Nizoral) 2 % shampoo(Started 05/12/2023) APPLY TO AFFECTED AREA THREE TIMES A WEEK REASONS: DANDRUFF 5 refills by 05/11/2024 * [facility] Purelax 17 GM/SCOOP powder(Started 05/21/2023) TAKE 1 CAPFUL (17G) BY MOUTH DISSOLVED IN 4-8 OZ OF WATER OR JUICE ONCE DAILY 3 refills by 05/20/2024 * Vitamin D3 (25 MCG) 1000 UNIT capsule(Started 06/01/2023) Take 1 (one) capsule by mouth once daily Reasons: Vitamin D Deficiency * loratadine (Claritin) 10 MG tablet(Started 09/03/2023) Take 1 (one) tablet by mouth once daily 4 refills by 09/02/2024 * menthol-zinc oxide (Calmoseptine) 0.44-20.625 % ointment(Started 10/13/2023) Apply to affected area 2 times daily On both buttocks and at coccyx. 2 refills by 10/12/2024 * melatonin 3 MG tablet Take 5 mg by mouth at bedtime * memantine (Namenda) 5 MG tablet(Started 01/03/2024) Take 1 (one) tablet by mouth 2 times daily 2 refills by 01/02/2025 * glipiZIDE (Glucotrol) 5 MG tablet(Started 01/10/2024) Take 1 (one) tablet by mouth 2 times daily, before breakfast and supper DX: Type 2 diabetes mellitus with diabetic neuropathy, without long-term current use of insulin (HCC) E11.40 2 refills by 01/09/2025 * levothyroxine (Synthroid) 75 MCG tablet(Started 02/22/2024) TAKE 1 TABLET BY MOUTH EVERY DAY BEFORE BREAKFAST 3 refills by 02/21/2025 * triamcinolone acetonide (Kenalog) 0.1 % cream(Started 03/06/2024) Apply to affected area 2 times daily Reasons: Skin Inflammation 1 refill by 03/06/2025 * senna-docusate (Senokot-S) 8.6-50 MG tablet(Started 03/06/2024) Take 1 (one) tablet by mouth once daily Reasons: Constipation 5 refills by 03/06/2025 * docusate sodium (Colace) 100 MG capsule(Started 03/31/2024) Take 1 (one) capsule by mouth 2 times daily 3 refills by 03/31/2025 Ended Medications* docusate sodium (Colace) 100 MG capsule(Started 03/31/2023) (Discontinued) TAKE 1 CAPSULE BY MOUTH TWICE A DAY 3 refills by 03/30/2024 * amoxicillin-clavulanate (Augmentin) 875-125 MG tablet(Started 03/06/2024) () Take 1 (one) tablet by mouth 2 times daily with morning and evening meal for 10 days Reasons: Infection of the Skin and/or Skin Structures Active Problems Problem Noted Date Diagnosed Date [...] diabetes mellitus with diabetic retinopat hy 01/17/2021 Skin-picking disorder 07/23/2016 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 02/05/2016 Hypothyroidism, adult 02/05/2016 Alzheimer's dementia without behavioral disturba nce 02/05/2016 Seasonal allergic rhinitis 02/05/2016 Osteoarthrosis 12/14/2012 10/27/2022 Wrist arthritis 09/09/2012 10/27/2022 Type 2 diabetes mellitus with diabetic neuropath y 09/07/2012 Wrist pain, left 09/07/2012 10/27/2022 Depression 03/04/2012 [...] stage 3, GFR 30-59 ml/min 09/11/2021 01/26/2022 Diabetic eye exam 09/02/2020 03/04/2021 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 (FLUAD QUADRIVALENT; 65Y+) (AIIV4)(Given 02/09/2023, 01/26/2022, 03/04/2021) * INFLUENZA VACCINE, ADJUVANTED, TRIV. (FLUAD TRIVALENT; 65Y+) (AIIV3)(Given 02/09/2024) * INFLUENZA VACCINE, HIGH-DOSE, QUADR. (FLUZONE HIGH-DOSE QUADRIVALENT; 65Y+), 0.7 ML (HD-IIV4)(Given 03/04/2020, 02/28/2019, 03/02/2018, 03/01/2017, 02/05/2016) * INFLUENZA VACCINE, HIGH-DOSE, TRIV. (FLUZONE HIGH-DOSE TRIVALENT; 65Y+) (HD-IIV3)(Given 02/28/2019, 03/02/2018, 03/01/2017, 02/05/2016) * PNEUMOCOCCAL PCV20 CONJ VAC IM(Given 02/10/2024, 02/09/2024) * PNEUMOCOCCAL PPSV23(Given 07/25/2012) * Pneumococcal Pcv13 Conj(Given 03/02/2018) * TDAP (7yrs+)(Given 10/04/2019) * TETANUS(Given 10/03/2019) Social History Tobacco Use Types Packs/Day Years [...] Recorded Patient Health Questionnaire-2 Score 2 03/06/2024 [facility] [place] [facility] Occupat ional Health - Occupational Stress [...] any time in the past 12 m [facility], were you homeless or living in a alf (including now)? No 02/24/2024 Sex and Gender Information Value Date Recorded Sex Assigned at Male 01/22/2023 1:45 PM CDT Gender Identity Male 01/22/2023 1:45 PM CDT Sexual Orientation Straight 01/22/2023 1: 45 PM CDT Last Filed Vital Signs Vital Sign Reading Time Taken Comments Blood Pressure 96/68 03/06/2024 2:34 PM HOSE TENDER Pulse 70 03/06/2024 2:34 PM HOSE TENDER Temperature 36.7 ??C (98 ??F) 03/06/2024 2:34 PM HOSE TENDER Respiratory Rate 18 03/06/2024 2:34 PM HOSE TENDER Oxygen Saturation 96% 03/06/2024 2:34 PM HOSE TENDER Inhaled Oxygen Concentration - - Weight 65.8 kg (145 lb) 02/24/2024 12:31 AM HOSE TENDER Height 170.2 cm (5' 7) 03/06/2024 2:34 PM HOSE TENDER Body Mass Index 22.71 02/24/2024 12:31 AM HOSE TENDER Procedures * GLUCOSE - POINT OF CARE(Performed 02/25/2024) * SARS-COV-2 (COVID-19) RAPID(Performed 02/25/2024) Performed for Wrist arthritis * GLUCOSE - POINT OF CARE(Performed 02/25/2024) * BASIC METABOLIC PANEL (CALCIUM TOTAL)(Performed 02/25/2024) Performed for Weight loss, abnormal * CARDIAC EKG ORDER(Performed 02/24/2024) * GLUCOSE - POINT OF CARE(Performed 02/24/2024) * URINALYSIS REFLEX MICROSCOPIC REFLEX CULTURE(Performed 02/24/2024) * TSH REFLEX FREE T4(Performed 02/24/2024) Performed for Hypotension, unspecified hypotension type, Adult failure to thrive, Volume depletion * MAGNESIUM BLOOD(Performed 02/24/2024) Performed for Hypotension, unspecified hypotension type, Adult failure to thrive, Volume depletion * CBC W/O DIFFERENTIAL(Performed 02/24/2024) Performed for Hypotension, unspecified hypotension type, Adult failure to thrive, Volume depletion * BASIC METABOLIC PANEL (CALCIUM TOTAL)(Performed 02/24/2024) Performed for Hypotension, unspecified hypotension type, Adult failure to thrive, Volume depletion * LACTIC ACID BLOOD REFLEX TO REPEAT(Performed 02/24/2024) * TROPONIN-I HIGH SENSITIVE REFLEX 1HOUR(Performed 02/23/2024) * XR CHEST 1VW PORTABLE(Performed 02/23/2024) Performed for Hypotension, unspecified hypotension type * CBC W AUTO DIFFERENTIAL(Performed 02/23/2024) * TROPONIN-I HIGH SENSITIVE BASELINE + 1HR(Performed 02/23/2024) * LIPASE BLOOD(Performed 02/23/2024) * MAGNESIUM BLOOD(Performed 02/23/2024) * LACTIC ACID BLOOD REFLEX TO REPEAT(Performed 02/23/2024) * COMPREHENSIVE METABOLIC PANEL(Performed 02/23/2024) * EKG 12-LEAD(Performed 02/23/2024) Performed for Hypotension, unspecified hypotension type * TSH(Performed 12/02/2023) Performed for Hypothyroidism, adult * VITAMIN D 25-HYDROXY(Performed 12/02/2023) Performed for Vitamin D deficiency * MICROALB/CREAT RATIO URINE RANDOM PANEL(Performed 12/02/2023) Performed for Type 2 diabetes mellitus with hyperglycemia, without long-term current use of insulin([facility]) * HEMOGLOBIN A1C W EAG(Performed 12/02/2023) Performed for Type 2 diabetes mellitus with hyperglycemia, without long-term current use of insulin([facility]) * CBC W/O DIFFERENTIAL(Performed 12/02/2023) Performed for Essential hypertension * COMPREHENSIVE METABOLIC PANEL(Performed 12/02/2023) Performed for Essential hypertension * HEMOGLOBIN A1C - POINT OF CARE (AMB)(Performed 12/02/2023) Performed for Type 2 diabetes mellitus with hyperglycemia, without long-term current use of insulin([facility]) * CULTURE URINE(Performed 03/02/2023) Performed for Acute cystitis without hematuria * URINALYSIS REFLEX TO MICROSCOPIC NO CULTURE(Performed 03/01/2023) Performed for Acute cystitis without hematuria * TSH(Performed 10/27/2022) Performed for Hypothyroidism, adult * VITAMIN D 25-HYDROXY(Performed 10/27/2022) Performed for Vitamin D deficiency * MICROALB/CREAT RATIO URINE RANDOM PANEL(Performed 10/27/2022) Performed for Type 2 diabetes mellitus with diabetic neuropathy, without long- term current use of insulin ([facility]) * HEMOGLOBIN A1C W EAG(Performed 10/27/2022) Performed for Type 2 diabetes mellitus with diabetic neuropathy, without long- term current use of insulin ([facility]) * CBC W/O DIFFERENTIAL(Performed 10/27/2022) Performed for Encounter for general adult medical examination with abnormal findings * COMPREHENSIVE METABOLIC PANEL(Performed 10/27/2022) Performed for Encounter for general adult medical examination with abnormal findings * LIPID PROFILE W TCHOL/HDL(Performed 10/27/2022) Performed for Mixed hyperlipidemia * XR THORACIC SPINE 3VW(Performed 08/26/2022) Performed for Acute midline thoracic back pain * XR ABD OBSTRUCTION SERIES 2VW(Performed 08/26/2022) Performed for Other constipation * IMAGING/RADIOLOGY/XRAY RESULTS ORDER(Performed 07/27/2022) * LAB RESULTS ORDER(Performed 07/27/2022) * LAB RESULTS ORDER(Performed 07/27/2022) * LAB RESULTS ORDER(Performed 06/15/2022) * LAB RESULTS ORDER(Performed 06/14/2022) * LAB RESULTS ORDER(Performed 05/29/2022) * LAB RESULTS ORDER(Performed 05/29/2022) * LAB RESULTS ORDER(Performed 05/29/2022) * IMAGING/RADIOLOGY/XRAY RESULTS ORDER(Performed 05/28/2022) * LAB RESULTS ORDER(Performed 03/04/2022) * IMAGING/RADIOLOGY/XRAY RESULTS ORDER(Performed 01/22/2022) * IMAGING/RADIOLOGY/XRAY RESULTS ORDER(Performed 01/22/2022) * IMAGING/RADIOLOGY/XRAY RESULTS ORDER(Performed 04/01/2021) * TSH REFLEX FREE T4(Performed 03/04/2021) * TSH(Performed 03/04/2021) Performed for Hypothyroidism, adult * MICROALB/CREAT RATIO URINE RANDOM PANEL(Performed 03/04/2021) Performed for Type 2 diabetes mellitus with stage 3a chronic kidney disease, without long-term current use of insulin ([facility]), Type 2 diabetes mellitus with diabetic polyneuropathy, without long-term current use of insulin ([facility]), Type 2 diabetes mellitus with retinopathy, without long-term current use of insulin, macular edema presence unspecified, unspecified laterality, unspecified retinopathy severity ([facility]) * LIPID PROFILE REFLEX LDL DIRECT(Performed 03/04/2021) Performed for Type 2 diabetes mellitus with stage 3a chronic kidney disease, without long-term current use of insulin ([facility]), Type 2 diabetes mellitus with diabetic polyneuropathy, without long-term current use of insulin ([facility]), Type 2 diabetes mellitus with retinopathy, without long-term current use of insulin, macular edema presence unspecified, unspecified laterality, unspecified retinopathy severity ([facility]) * CBC W AUTO DIFFERENTIAL(Performed 03/04/2021) Performed for Type 2 diabetes mellitus with stage 3a chronic kidney disease, without long-term current use of insulin ([facility]), Type 2 diabetes mellitus with diabetic polyneuropathy, without long-term current use of insulin ([facility]), Type 2 diabetes mellitus with retinopathy, without long-term current use of insulin, macular edema presence unspecified, unspecified laterality, unspecified retinopathy severity ([facility]) * COMPREHENSIVE METABOLIC PANEL(Performed 03/04/2021) Performed for Type 2 diabetes mellitus with stage 3a chronic kidney disease, without long-term current use of insulin ([facility]), Type 2 diabetes mellitus with diabetic polyneuropathy, without long-term current use of insulin ([facility]), Type 2 diabetes mellitus with retinopathy, without long-term current use of insulin, macular edema presence unspecified, unspecified laterality, unspecified retinopathy severity ([facility]) * HEMOGLOBIN A1C W EAG(Performed 03/04/2021) Performed for Type 2 diabetes mellitus with stage 3a chronic kidney disease, without long-term current use of insulin ([facility]), Type 2 diabetes mellitus with diabetic polyneuropathy, without long-term current use of insulin ([facility]), Type 2 diabetes mellitus with retinopathy, without long-term current use of insulin, macular edema presence unspecified, unspecified laterality, unspecified retinopathy severity ([facility]) * HM DIABETES EYE EXAM(Performed 04/04/2020) * TSH REFLEX FREE T4(Performed 03/04/2020) Performed for Hypothyroidism, adult * HEMOGLOBIN A1C W EAG(Performed 03/04/2020) Performed for Type 2 diabetes mellitus with diabetic neuropathy, unspecified whether retirement insulin use ([facility]) * COMPREHENSIVE METABOLIC PANEL(Performed 03/04/2020) Performed for Stage 3 chronic kidney disease, unspecified whether stage 3a or 3b CKD ([facility]) * T4 FREE(Performed 08/30/2019) Performed for Hypothyroidism, adult * TSH(Performed 08/30/2019) Performed for Hypothyroidism, adult * MICROALB/CREAT RATIO URINE RANDOM PANEL(Performed 08/30/2019) Performed for Type 2 diabetes mellitus with diabetic neuropathy, unspecified whether retirement insulin use ([facility]), Type 2 diabetes mellitus with stage 3 chronic kidney disease, unspecified whether retirement insulin use * LIPID PROFILE REFLEX LDL DIRECT(Performed 08/30/2019) Performed for Type 2 diabetes mellitus with diabetic neuropathy, 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 ([facility]), Type 2 diabetes mellitus with stage 3 chronic kidney disease, 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 * CBC W AUTO DIFFERENTIAL(Performed 08/30/2019) Performed for Type 2 diabetes mellitus with diabetic neuropathy, unspecified whether retirement insulin use ([facility]), Type 2 diabetes mellitus with stage 3 chronic kidney disease, 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 * COMPREHENSIVE METABOLIC PANEL(Performed 08/30/2019) Performed for Type 2 diabetes mellitus with diabetic neuropathy, 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 ([facility]), Type 2 diabetes mellitus with stage 3 chronic kidney disease, unspecified whether retirement insulin use * HEMOGLOBIN A1C W EAG(Performed 08/30/2019) Performed for Type 2 diabetes mellitus with diabetic neuropathy, 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 ([facility]), Type 2 diabetes mellitus with stage 3 chronic kidney disease, unspecified whether retirement insulin use * HEMOGLOBIN A1C W EAG(Performed 02/28/2019) Performed for Type 2 diabetes mellitus with diabetic neuropathy, unspecified whether retirement insulin use ([facility]), Type 2 diabetes mellitus with stage 3 chronic kidney disease, unspecified whether retirement insulin use * TSH+FREE T4+FREE T3(Performed 08/29/2018) Performed for Hypothyroidism, adult * COMPREHENSIVE METABOLIC PANEL(Performed 08/29/2018) Performed for Type 2 diabetes mellitus with diabetic neuropathy, unspecified whether retirement insulin use ([facility]), Type 2 diabetes mellitus with stage 3 chronic kidney disease, unspecified whether retirement insulin use, Benign hypertension with chronic kidney disease * HEMOGLOBIN A1C(Performed 08/29/2018) Performed for Type 2 diabetes mellitus with diabetic neuropathy, 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 (HCC), Type 2 diabetes mellitus with stage 3 chronic kidney disease, 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 * DIABETES EYE EXAM(Performed 05/06/2018) * XR CHEST 2VW(Performed 04/07/2018) Performed for Acute bronchitis, unspecified organism * LAB RESULTS ORDER(Performed 03/04/2018) * T4 FREE(Performed 03/02/2018) * MICROALB/CREAT RATIO URINE RANDOM PANEL(Performed 03/02/2018) Performed for Type 2 diabetes mellitus with stage 3 chronic kidney disease, without long-term current use of insulin ([facility]) * TSH REFLEX FREE T4(Performed 03/02/2018) Performed for Type 2 diabetes mellitus with stage 3 chronic kidney disease, without long-term current use of insulin ([facility]) * HEMOGLOBIN A1C(Performed 03/02/2018) Performed for Type 2 diabetes mellitus with stage 3 chronic kidney disease, without long-term current use of insulin ([facility]) * LIPID PROFILE(Performed 03/02/2018) Performed for Type 2 diabetes mellitus with stage 3 chronic kidney disease, without long-term current use of insulin ([facility]) * COMPREHENSIVE METABOLIC PANEL(Performed 03/02/2018) Performed for Type 2 diabetes mellitus with stage 3 chronic kidney disease, without long-term current use of insulin ([facility]) * DIABETES EYE EXAM(Performed 01/11/2018) * HEMOGLOBIN A1C(Performed 08/31/2017) Performed for Type 2 diabetes mellitus with diabetic neuropathy, without long- term current use of insulin ([facility]), Type 2 diabetes mellitus with stage 3 chronic kidney disease, without long-term current use of insulin ([facility]) * COMPREHENSIVE METABOLIC PANEL(Performed 08/31/2017) Performed for Type 2 diabetes mellitus with diabetic neuropathy, without long- term current use of insulin ([facility]), Type 2 diabetes mellitus with stage 3 chronic kidney disease, without long-term current use of insulin ([facility]) * TSH(Performed 03/01/2017) Performed for Hypothyroidism, adult * MICROALB/CREAT RATIO URINE RANDOM PANEL(Performed 03/01/2017) Performed for Type 2 diabetes mellitus with stage 3 chronic kidney disease, without long-term current use of insulin ([facility]), Type 2 diabetes mellitus with diabetic neuropathy, without long-term current use of insulin ([facility]) * HEMOGLOBIN A1C(Performed 03/01/2017) Performed for Type 2 diabetes mellitus with stage 3 chronic kidney disease, without long-term current use of insulin (HCC), Type 2 diabetes mellitus with diabetic neuropathy, without long-term current use of insulin (HCC) * COMPREHENSIVE METABOLIC PANEL(Performed 03/01/2017) Performed for Type 2 diabetes mellitus with stage 3 chronic kidney disease, without long-term current use of insulin (HCC), Type 2 diabetes mellitus with diabetic neuropathy, without long-term current use of insulin ([facility]), Benign hypertension with chronic kidney disease * LIPID PROFILE(Performed 03/01/2017) Performed for Type 2 diabetes mellitus with stage 3 chronic kidney disease, without long-term current use of insulin ([facility]), Type 2 diabetes mellitus with diabetic neuropathy, without long-term current use of insulin ([facility]) * BASIC METABOLIC PANEL (CALCIUM TOTAL)(Performed 07/23/2016) * HEMOGLOBIN A1C(Performed 07/23/2016) Performed for Type 2 diabetes mellitus with diabetic neuropathy, without long- term current use of insulin ([facility]), Type 2 diabetes mellitus with chronic kidney disease, without long-term current use ofinsulin, unspecified CKD stage ([facility]) * PT-INR(Performed 04/06/2016) Performed for Pre-operative cardiovascular examination * TSH(Performed 04/06/2016) Performed for Pre-operative cardiovascular examination, Hypothyroidism, adult * COMPREHENSIVE METABOLIC PANEL(Performed 04/06/2016) Performed for Pre-operative cardiovascular examination * CBC W AUTO DIFFERENTIAL(Performed 04/06/2016) Performed for Pre-operative cardiovascular examination * EKG 12-LEAD(Performed 04/06/2016) Performed for Pre-operative cardiovascular examination, Type 2 diabetes mellitus with stage 3 chronic kidney disease, without long-term current use of insulin ([facility]), Type 2 diabetes mellitus with diabetic neuropathy, without long-term current use of insulin ([facility]), Benign hypertension with chronic kidney disease * MICROALB/CREAT RATIO URINE RANDOM PANEL(Performed 02/06/2016) Performed for Type 2 diabetes mellitus with chronic kidney disease, without long-term current use of insulin, unspecified CKD stage ([facility]) * LIPID PROFILE(Performed 02/06/2016) Performed for Type 2 diabetes mellitus with chronic kidney disease, without long-term current use of insulin, unspecified CKD stage ([facility]) * HEMOGLOBIN A1C(Performed 02/06/2016) Performed for Type 2 diabetes mellitus with chronic kidney disease, without long-term current use of insulin, unspecified CKD stage (HCC) * T4 FREE(Performed 02/06/2016) Performed for Hypothyroidism, adult * TSH(Performed 02/06/2016) Performed for Hypothyroidism, adult * COMPREHENSIVE METABOLIC PANEL(Performed 02/06/2016) Performed for Type 2 diabetes mellitus with chronic kidney disease, without long-term current use of insulin, unspecified CKD stage (HCC), Benign hypertension with chronic kidney disease Results * (ABNORMAL) GLUCOSE - POINT OF CARE (02/25/2024 6:04 PM HOSE TENDER) Only the most recent of3 resultswithin the time period is included. [facility] Glucose WB/POC 225(H) 70 - 99 mg/dL 02/25/2024 10:00 PM HOSE TENDER [facility] Specimen Type Cap Fingerstick 2023 10:00 PM HOSE TENDER [facility] Blood BLOOD SPECIMEN / Unknown 02/25/2024 6:04 PM HOSE TENDER 02/25/2024 10:00 PM HOSE TENDER Osiel Lopez MD LAB - POINT OF CARE ORDERABLES [facility] [id number] [place] [id number] * SARS-COV-2 (COVID-19) RAPID (02/25/2024 3:12 PM HOSE TENDER) [facility] COVID-19 PCR Not detected Not detected 02/25/20 24 4:02 PM HOSE TENDER [facility] Microbiology SPECIMEN FROM NASOPHARYNGEAL STRUCTURE / Unknown Collection / Unknown 02/25/2024 3:12 PM HOSE TENDER 02/25/2024 3:27 PM HOSE TENDER Narrative [facility] - 02/25/2024 4:02 PM HOSE TENDER The [employer] Xpert Xpress SARS-COV-2 has been authorized by [...] Lopez MD LAB - MICROBIOLOGY O RDERABLES [facility] [id number] [place] [address] * (ABNORMAL) BASIC METABOLIC PANEL (CALCIUM TOTAL) (02/25/2024 4:14 AM [facility]) Only the most recent of3 resultswithin the time period is included. Glucose 192(H) 70 - 99 mg/dL 02/25/2024 6:02 AM [facility] Sodium 132(L) 136 - 145 mmol/L 02/25/2024 6:02 AM [facility] Potassium 4.2 3.5 - 5.1 mmol/L 02/25/2024 6:02 AM [facility] Chloride 104 98 - 107 mmol/L 02/25/2024 6:02 AM [facility] LABORATORY CO2 20(L) 22 - 29 mmol/L 02/25/2024 6:02 AM [facility] Calcium 8.3(L) 8.4 - 10.4 mg/dL 02/25/2024 6:02 AM [facility] Anion Gap 8 6 - 16 mmol/L 02/25/2024 6:02 AM [facility] BUN 12 7 - 26 mg/dL 02/25/2024 6:02 AM [facility] Creatinine 0.87 0.72 - 1.25 mg/dL 02/25/2024 6:02 AM [facility] eGFR by CKD-EPI 84(L) >=90 mL/min/1.7 3 m2 02/25/2024 6:02 AM [facility] Blood BLOOD SPECIMEN / Unknown Venipuncture / Unknown 02/25/2024 4:14 AM HOSE TENDER 02/25/2024 5:43 AM HOSE TENDER Osiel Lopez MD LAB - CHEMISTRY MELYSSA CHAHAL [facility] [address] [place] [address] * CARDIAC EKG ORDER (02/24/2024 6:35 PM HOSE TENDER) Narrative 02/24/2024 6:35 PM HOSE TENDER Ordered by an unspecified provider. Scanned Document CARDIAC SERVICES ORD ERABLES * (ABNORMAL) URINALYSIS REFLEX MICROSCOPIC REFLEX CULTURE (02/24/2024 5:43 AM HOSE TENDER) Color UA Yellow Yellow, Straw 02/24/2024 6:53 AM [facility] Clarity UA Clear Clear 02/24/2024 6:53 AM HOSE TENDER [facility] Glucose UA Normal Normal 02/24/2024 6:53 AM HOSE TENDER [facility] Bilirubin UA Negative Negative 02/24/2024 6:53 AM HOSE TENDER [facility] Ketone UA Negative Negative 02/24/2024 6:53 AM HOSE TENDER [facility] Specific Philip UA 1.023 1.005 - 1.030 02/24/2024 6:53 AM HOSE TENDER [facility] Blood UA Negative Negative 02/24/2024 6:53 AM [facility] pH UA 5.5 5.0 - 9.0 pH 02/24/2024 6:53 AM [facility] Protein UA Trace(A) Negative 02/24/2024 6:53 AM HOSE TENDER [facility] Urobilinogen UA Normal Normal mg/dL 024 6:53 AM HOSE TENDER [facility] Nitrite UA Negative Negative 02/24/2024 6:53 AM HOSE TENDER [facility] Leukocyte UA Negative Negative 02/24/2024 6:53 AM [facility] Urine URINE SPECIMEN OBTAINED BY CLEAN CATCH PROCEDURE / Unknown Collection / Unknown 02/24/2024 5:43 AM HOSE TENDER 02/24/2024 6:44 AM HOSE TENDER Narrative [facility] - 02/24/2024 6:53 AM HOSE TENDER Britton Llamas DO LAB - URINALYSIS ORD ERABLES Performing Organization Address [facility] de Phone Number [facility] [id number] [place] [address] [phone] * LACTIC ACID BLOOD REFLEX TO REPEAT (02/24/2024 5:38 AM HOSE TENDER) Only the most recent of2 resultswithin the time period is included. Pathologist [facility] Lactic Acid 1.0 <=2.0 mmol/L 02/24/2024 6:22 AM HOSE TENDER [facility] Blood BLOOD SPECIMEN / Unknown Venipuncture / Unknown 02/24/2024 5:38 AM HOSE TENDER 02/24/2024 5:39 AM HOSE TENDER Britton Llamas DO LAB - CHEMISTRY ORDE RABLES Performing Organization Address [facility] de Phone Number [facility] [address] [place] [address] [phone] * TSH REFLEX FREE T4 (02/24/2024 5:38 AM HOSE TENDER) Only the most recent of4 resultswithin the time period is included. Pathologist [facility] TSH 2.611 0.350 - 4.940 uIU/mL 02/24/2024 6:26 AM HOSE TENDER [facility] Blood BLOOD SPECIMEN / Unknown Venipuncture / Unknown 02/24/2024 5:38 AM HOSE TENDER 02/24/2024 5:38 AM HOSE TENDER Navdeep Nazario DO LAB - CHEMISTRY OR DERABLES Performing Organization Address [facility] de Phone Number [facility] [id number] [place] [address] [phone] * (ABNORMAL) CBC W/O DIFFERENTIAL (02/24/2024 5:38 AM HOSE TENDER) Only the most recent of3 resultswithin the time period is included. Pathologist [facility] WBC 6.7 4.0 - 10.7 x10E9/L 02/24/2024 5:46 AM HOSE TENDER [facility] RBC Count 3.53(L) 4.30 - 5.80 x10E12/L 02/24/2024 5:46 AM HOSE TENDER [facility] Hemoglobin 11.0(L) 13.3 - 17.5 g/dL 02/24/2024 5:46 AM [facility] Hematocrit 33.7(L) 38.7 - 51.1 % 02/24/2024 5:46 AM [facility] MCV 95.5 80.0 - 98.0 fL 02/24/2024 5:46 AM [facility] MCH 31.2 26.7 - 33.6 pg 02/24/2024 5:46 AM [facility] MCHC 32.6 31.7 - 36.3 g/dL 02/24/2024 5:46 AM [facility] RDW-CV 13.5 11.3 - 14.8 % 02/24/2024 5:46 AM [facility] Platelet Count 320 150 - 420 x10E9/L 02/24/2024 5:46 AM [facility] MPV 9.3 7.8 - 11.4 fL 02/24/2024 5:46 AM [facility] Blood BLOOD SPECIMEN / Unknown Venipuncture / Unknown 02/24/2024 5:38 AM HOSE TENDER 02/24/2024 5:38 AM HOSE TENDER Navdeep Nazario DO LAB - HEMATOLOGY O RDERABLES Performing Organization Address City/[facility] Co de Phone Number [facility] [address] [place] [phone] * MAGNESIUM BLOOD (02/24/2024 5:38 AM HOSE TENDER) Only the most recent of2 resultswithin the time period is included. Magnesium 1.8 1.6 - 2.6 mg/dL 02/24/2024 6:19 AM [facility] Blood BLOOD SPECIMEN / Unknown Venipuncture / Unknown 02/24/2024 5:38 AM HOSE TENDER 02/24/2024 5:38 AM HOSE TENDER Navdeep Nazario DO LAB - CHEMISTRY OR DERABLES Performing Organization Address [facility] Co de Phone Number [facility] [address] [place] [address] * TROPONIN-I HIGH SENSITIVE REFLEX 1HOUR (02/23/2024 5:20 PM HOSE TENDER) Troponin I High Sensitive <3 <=35 ng/L 02/23/2024 6:14 PM HOSE TENDER [facility] Delta Troponin I HS 02/23/2024 6:14 PM HOSE TENDER [facility] Comment:Result exceeds linea rity range. A delta value is unable to be calculated. Blood BLOOD SPECIMEN / Unknown Venipuncture / Unknown 02/23/2024 5:20 PM HOSE TENDER 02/23/2024 5:47 PM HOSE TENDER Britton Llamas DO LAB - CHEMISTRY KWAMEE TIRSO [facility] [address] [place] [address] * XR CHEST 1VW PORTABLE (02/23/2024 5:01 PM HOSE TENDER) Anatomical Region Laterality Modality Chest Computed Radiogr aphy 02/23/2024 5:05 PM HOSE TENDER Impressions 02/23/2024 5:06 PM HOSE TENDER IMPRESSION: No acute airspace infiltrate. > Interpreting Provider: Jacinda Peng MD on 02/23/2024 5:06 PM Narrative 02/23/2024 5:06 PM HOSE TENDER PROCEDURE: ??XR CHEST 1VW PORTABLE DATE/TIME OF [...] CBC W AUTO DIFFERENTIAL (02/23/2024 4:51 PM HOSE TENDER) Only the most recent of4 resultswithin the time period is included. WBC 9.3 4.0 - 10.7 x10E9/L 02/23/2024 5:05 PM HOSE TENDER [facility] RBC Count 3.49(L) 4.30 - 5.80 x10E12/L 02/23/2024 5:05 PM HOSE TENDER [facility] Hemoglobin 11.2(L) 13.3 - 17.5 g/dL 02/23/2024 5:05 PM HOSE TENDER [facility] Hematocrit 33.2(L) 38.7 - 51.1 % 02/23/2024 5:05 PM HOSE TENDER [facility] MCV 95.1 80.0 - 98.0 fL 02/23/2024 5:05 PM HOSE TENDER [facility] MCH 32.1 26.7 - 33.6 pg 02/23/2024 5:05 PM HOSE TENDER [facility] MCHC 33.7 31.7 - 36.3 g/dL 02/23/2024 5:05 PM HOSE TENDER [facility] RDW-CV 13.6 11.3 - 14.8 % 02/23/2024 5:05 PM HOSE TENDER [facility] Platelet Count 284 150 - 420 x10E9/L 02/23/2024 5:05 PM HOSE TENDER [facility] MPV 9.3 7.8 - 11.4 fL 02/23/2024 5:05 PM HOSE TENDER [facility] Neutrophil % 80.0(H) 41.0 - 74.0 % 02/23/2024 5:05 PM HOSE TENDER [facility] Lymphocyte % 9.5(L) 17.0 - 47.0 % 02/23/2024 5:05 PM HOSE TENDER [facility] Monocyte % 9.5 3.0 - 11.0 % 02/23/2024 5:05 PM HOSE TENDER [facility] Eosinophil % 0.1 0.0 - 7.0 % 02/23/2024 5:05 PM HOSE TENDER [facility] Basophil % 0.5 0.0 - 1.6 % 02/23/2024 5:05 PM HOSE TENDER [facility] Immature Granulocytes % 0.4 0.0 - 1.0 % 02/23/2024 5:05 PM HOSE TENDER [facility] Neutrophil Absolute 7.45 1.60 - 7.50 x10E9/L 02/23/2024 5:05 PM HOSE TENDER [facility] Lymphocyte Absolute 0.88(L) 1.00 - 4.40 x10E9/L 02/23/2024 5:05 PM HOSE TENDER [facility] Monocyte Absolute 0.88 0.15 - 1.00 x10E9/L 02/23/2024 5:05 PM HOSE TENDER [facility] Eosinophil Absolute 0.01 0.00 - 0.60 x10E9/L 02/23/2024 5:05 PM HOSE TENDER [facility] Basophil Absolute 0.05 0.00 - 0.13 x10E9/L 02/23/2024 5:05 PM HOSE TENDER [facility] Blood BLOOD SPECIMEN / Unknown Venipuncture / Unknown 02/23/2024 4:51 PM HOSE TENDER 02/23/2024 4:59 PM HOSE TENDER Britton Llamas DO LAB - HEMATOLOGY ORD ERABLES Performing Organization Address City/[facility]/ZIP Co de Phone Number [facility] [address] [place] [address] * TROPONIN-I HIGH SENSITIVE BASELINE + 1HR (02/23/2024 4:10 PM HOSE TENDER) [facility] Troponin I High Sensitive 4 <=35 ng/L 02/23/2024 5:03 PM HOSE TENDER [facility] Blood BLOOD SPECIMEN / Unknown Venipuncture / Unknown 02/23/2024 4:10 PM HOSE TENDER 02/23/2024 4:33 PM HOSE TENDER Britton Llamas DO LAB - CHEMISTRY ORDE RABLES Performing Organization Address City/[facility]/ZIP Co de Phone Number [facility] [address] [place], [place] [phone] * (ABNORMAL) COMPREHENSIVE METABOLIC PANEL (02/23/2024 4:10 PM [facility]) Only the most recent of12 resultswithin the time period is included. Glucose 178(H) 70 - 99 mg/dL 02/23/2024 4:59 PM [facility] Sodium 132(L) 136 - 145 mmol/L 02/23/2024 4:59 PM [facility] Potassium 4.7 3.5 - 5.1 mmol/L 02/23/2024 4:59 PM [facility] Chloride 99 98 - 107 mmol/L 02/23/2024 4:59 PM [facility] CO2 21(L) 22 - 29 mmol/L 02/23/2024 4:59 PM [facility] Calcium 8.9 8.4 - 10.4 mg/dL 02/23/2024 4:59 PM [facility] Anion Gap 12 6 - 16 mmol/L 02/23/2024 4:59 PM [facility] BUN 18 7 - 26 mg/dL 02/23/2024 4:59 PM [facility] Creatinine 1.19 0.72 - 1.25 mg/dL 02/23/2024 4:59 PM [facility] Alkaline Phosphatase 62 40 - 150 U/L 02/23/2024 4:59 PM [facility] ALT 15 0 - 55 U/L 02/23/2024 4:59 PM [facility] AST 16 5 - 34 U/L 02/23/2024 4:59 PM [facility] Protein Total 6.7 6.4 - 8.3 gm/dL 02/23/2024 4:59 PM [facility] Albumin 2.6(L) 3.4 - 5.0 gm/dL 02/23/2024 4:59 PM [facility] Bilirubin Total 0.4 0.2 - 1.2 mg/dL 02/23/2024 4:59 PM [facility] eGFR by CKD-EPI 59(L) >=90 mL/min/1.7 3 m2 02/23/2024 4:59 PM [facility] Blood BLOOD SPECIMEN / Unknown Venipuncture / Unknown 02/23/2024 4:10 PM HOSE TENDER 02/23/2024 4:33 PM HOSE TENDER [facility]on [facility] - [facility] TIRSO Performing Organization Address [facility] Co de Phone Number [facility] [address] [place] [address] * LIPASE BLOOD (02/23/2024 4:10 PM HOSE TENDER) [facility] Lipase <4 <60 U/L 02/23/2024 5:01 PM HOSE TENDER [facility] Blood BLOOD SPECIMEN / Unknown Venipuncture / Unknown 02/23/2024 4:10 PM HOSE TENDER 02/23/2024 4:33 PM HOSE TENDER [facility] - [facility]Y [facility] Performing Organization Address [facility] de Phone Number [facility] [id number] [place] [phone] * EKG 12-LEAD (02/23/2024 3:30 PM HOSE TENDER) Only the most recent of2 resultswithin the time period is included. [facility] Ventricular Rate 106 BPM [facility] Atrial Rate 106 BPM [facility] P-R Interval 172 ms [facility] QRS Duration ms 128 ms [facility] Q-T Interval ms 364 ms [facility] QTC Calculation (Bezet) 483 ms [facility] Calculated P [place] 36 degrees [facility] Calculated R [place] 76 degrees [facility] Calculated T [place] 21 degrees [facility] Interpretation EKG Sinus tachycardia Right bundle branch block Abnormal ECG No previous ECGs available Confirmed by ÁNGEL HUNTLEY MD ([id number]) on 02/24/2024 9:02:56 AM [facility] M[facility] 02/23/2024 3:30 PM HOSE TENDER 02/24/2024 9:02 AM HOSE TENDER Rachna SHELTON ECG ORDERA BLES Performing Organization Address City/[facility] Co de Phone Number [facility] * (ABNORMAL) HEMOGLOBIN A1C W EAG (12/02/2023 3:57 PM CDT) Only the most recent of6 resultswithin the time period is included. Hemoglobin A1c 6.3(H) 4.8 - 5.6 % [facility] INSURANCE BILL Comment: ? Prediabetes: 5.7 - 6.4 ? Diabetes: >6.4 ? Glycemic control for adults with diabetes: <7.0 Estimated Average Glucose 134 mg/dL [facility] INSURANCE BILL Blood BLOOD SPECIMEN / Unknown 12/02/2023 3:57 PM CDT 12/02/2023 Narrative [facility] INSURANCE BILL - 12/03/2023 7:12 AM CDT Performed at: ??01 - [facility] [address] [place], [place] ??[id number] Hyster Driver: Mike Davila PhD, Phone: ??[phone] Chris Aden MD LAB - CHEMISTRY MELYSSA CHAHAL Performing Organization Address City/State/[facility] Co de Phone Number [facility] INSURANCE BILL [address] [place] [address] * MICROALB/CREAT RATIO URINE RANDOM PANEL (12/02/2023 3:57 PM CDT) Only the most recent of7 resultswithin the time period is included. Creatinine Urine 83.6 Not Estab. mg/dL [facility] INSURANCE BILL Microalbumin Urine 4.2 Not Estab. ug/mL [facility] INSURANCE BILL Microalbumin/Crea tinine Ratio 5 0 - 29 mg/g creat [facility] INSURANCE BILL Comment: ? Normal: ?0 - ??29 ? Moderately increased: 30 - 300 ? Severely increased: ? >300 Urine URINE SPECIMEN OBTAINED BY CLEAN CATCH PROCEDURE / Unknown 12/02/2023 3:57 PM CDT 12/02/2023 Narrative [facility] INSURANCE BILL - 12/03/2023 7:12 AM CDT Performed at: ??01 - [facility] [address] ??[id number] Hyster Driver: Mike Davila PhD, Phone: ??[phone] Chris Aden MD LAB - URINE CHEMISTR Y ORDERABLES Performing Organization Address City/[facility]/ZIP Co de Phone Number [facility] INSURANCE BILL [address] [place] [address] * VITAMIN D 25-HYDROXY (12/02/2023 3:57 PM CDT) Only the most recent of2 resultswithin the time period is included. Vitamin D, 25 Hydroxy 66.1 30.0 - 100.0 ng/mL [facility] INSURANCE BILL Comment: Vitamin D deficiency has been defined by the [place] of Medicine and an Endocrine Society practice guideline as a level of serum 25-OH vitamin D less than 20 ng/mL (1,2). The Endocrine Society went on to further define vitamin D insufficiency as a level between 21 and 29 ng/mL (2). 1. IOM ([place] of Medicine). 2010. Dietary reference ?? intakes for calcium and D. [place]: The ?? National Academies Press. 2. Iris MF, Daniel NC, Fabian FERRIS, et al. ?? Evaluation, treatment, and prevention of vitamin D ?? deficiency: an Endocrine Society clinical practice ?? guideline. JCEM. 2011 Sep; 96(7):1911-30. Blood BLOOD SPECIMEN / Unknown 12/02/2023 3:57 PM CDT 12/02/2023 Narrative [facility] INSURANCE BILL - 12/03/2023 8:20 AM CDT Performed at: ??01 - [facility] [address] ??[id number] Hyster Driver: Mike Davila PhD, Phone: ??[phone] Chris Aden MD LAB - CHEMISTRY ORDE RABLES Performing Organization Address City/[facility]/ZIP Co de Phone Number [facility] INSURANCE BILL [address] [place] [address] * TSH (12/02/2023 3:57 PM CDT) Only the most recent of7 resultswithin the time period is included. TSH 3.290 0.450 - 4.500 uIU/mL [facility] INSURANCE BILL Blood BLOOD SPECIMEN / Unknown 12/02/2023 3:57 PM CDT 12/02/2023 Narrative [facility] INSURANCE BILL - 12/03/2023 8:20 AM CDT Performed at: ??01 - [facility] [place] [address] [facility] [place], [place] ??[id number] Hyster Driver: Mike Davila PhD, Phone: ??[phone] Chris Aden MD LAB - CHEMISTRY ORDNatasha CHAHAL Performing Organization Address City/[facility]/ZIP Co de Phone Number [facility] INSURANCE BILL [address] [place] [address] * HEMOGLOBIN A1C - POINT OF CARE (AMB) (12/02/2023 2:32 PM CDT) Hemoglobin A1c POCT 6.1 % [facility] Expiration Date 2025-08-29 [facility] Lot # [id number] [facility] QC Verified Yes Yes [facility] Blood BLOOD SPECIMEN / Unknown 12/02/2023 2:32 PM CDT Chris Aden MD LAB - POINT OF CARE ORDERABLES [facility] [id number] [phone] * CULTURE URINE (03/02/2023) Urine URINE SPECIMEN OBTAINED BY CLEAN CATCH PROCEDURE / Unknown 03/02/2023 Evelin Blanco APRN-SALT MANAGER LAB - MICROBIOL OGY ORDERABLES OTHER LAB * URINALYSIS REFLEX TO MICROSCOPIC NO CULTURE (03/01/2023) Urine URINE SPECIMEN OBTAINED BY CLEAN CATCH PROCEDURE / Unknown 03/01/2023 Evelin Blanco [employer]-SALT MANAGER LAB - URINALYSI S ORDERABLES OTHER LAB * LIPID PROFILE W TCHOL/HDL (10/27/2022 3:02 PM CDT) Cholesterol 156 <200 mg/dL [facility] ACCOUNT BILL Triglycerides 86 <150 mg/dL [facility] ACCOUNT BILL HDL Cholesterol 53 >40 mg/dL [facility] ACCOUNT BILL VLDL Calculated 17 <=30 mg/dL [facility] ACCOUNT BILL LDL Calculated 86 <130 mg/dL [facility] ACCOUNT BILL Comment:LDL/HDL RATIO BLOOD ([facility]) 1.6 <5.0 Cholesterol/HDL Ratio 2.9 <4.5 [facility] ACCOUNT BILL Comment:FASTING Blood BLOOD SPECIMEN / Unknown 10/27/2022 3:02 PM CDT 10/27/2022 Narrative Resulting Agency Comment Lab Testing performed at: [facility] [address] [place] [address] ?? [facility] [id number] Chris Aden MD LAB - CHEMISTRY MELYSSA CHAHAL [facility] ACCOUNT BILL [address] [place] [address] * XR ABD OBSTRUCTION SERIES 2VW (08/26/2022 3:59 PM CDT) Anatomical Region Laterality Modality Abdomen Radiographic Apolonia ging 08/26/2022 4:09 PM CDT Narrative 08/26/2022 4:10 PM CDT PROCEDURE: ??XR ABD OBSTRUCTION SERIES 2VW DATE/TIME OF EXAM: ??08/26/2022 3:59 PM CLINICAL INDICATION: Worsening abdominal pain and distention. Worsening constipation. FINDINGS: Increased stool content noted throughout the majority of the colon with sparing of the transverse portion suggesting constipation. No small bowel obstruction. No free air. No abnormal intra-abdominal calcifications. Prior cholecystectomy. 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 > Interpreting Provider: Thom Brock MD on 08/26/2022 4:10 PM Procedure Note Thom Brock MD - 08/26/2022 PROCEDURE: XR ABD OBSTRUCTION SERIES 2VW DATE/TIME OF EXAM: 08/26/2022 3:59 PM CLINICAL INDICATION: Worsening abdominal pain and distention. Worsening constipation. FINDINGS: Increased stool content noted throughout the majority of the colon with sparing of the transverse portion suggesting constipation. No smallbowel obstruction. No free air. No abnormal intra-abdominal calcifications.Prior cholecystectomy. 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 > Interpreting Provider: Thom Brock MD on 08/26/2022 4:10 PM Evelin Blanco [employer]-SALT MANAGER DIAGNOSTIC IMAG ING ORDERABLES * XR THORACIC SPINE 3VW (08/26/2022 3:59 PM CDT) Anatomical Region Laterality Modality Spine Radiographic Apolonia ging 08/26/2022 5:17 PM CDT Narrative 08/26/2022 5:18 PM CDT PROCEDURE: ??XR THORACIC SPINE 3VW DATE/TIME OF EXAM: ??08/26/2022 3:59 PM CLINICAL INDICATION: Worsening upper thoracic spine pain. 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 Mildly increased upper thoracic kyphosis. No acute fracture. Bony demineralization within the remainder of the thoracic spine. > Interpreting Provider: Thom Brock MD on 08/26/2022 5:18 PM Procedure Note Thom Brock MD - 08/26/2022 PROCEDURE: XR THORACIC SPINE 3VW DATE/TIME OF EXAM: 08/26/2022 3:59 PM CLINICAL INDICATION: Worsening upper thoracic spine pain. 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 Mildly increased upper thoracic kyphosis. No acute fracture. Bony demineralization within the remainder of the thoracicspine. > Interpreting Provider: Thom Brock MD on 08/26/2022 5:18 PM Evelin Blanco [employer]-SALT MANAGER DIAGNOSTIC IMAG ING ORDERABLES * LAB RESULTS ORDER (07/27/2022) Only the most recent of9 resultswithin the time period is included. 07/27/2022 Narrative 07/27/2022 Ordered by an unspecified provider. Scanned Document LAB - THERAPEUTIC DR UG MONITORING ORDERABLES * IMAGING RADIOLOGY XRAY RESULTS ORDER (07/27/2022) Only the most recent of5 resultswithin the time period is included. Anatomical Region Laterality Modality Other 07/27/2022 Narrative 07/27/2022 Ordered by an unspecified provider. Scanned Document IMAGING * LIPID PROFILE REFLEX LDL DIRECT (03/04/2021 3:29 PM HOSE TENDER) Only the most recent of2 resultswithin the time period is included. Cholesterol 160 <200 mg/dL [facility] ACCOUNT BILL Triglycerides 78 <150 mg/dL [facility] ACCOUNT BILL HDL Cholesterol 43 >40 mg/dL [facility] ACCOUNT BILL VLDL Calculated 16 <=30 mg/dL [facility] ACCOUNT BILL LDL Calculated 101 <130 mg/dL [facility] ACCOUNT BILL Cholesterol/HDL Ratio 3.7 <4.5 [facility] ACCOUNT BILL LDL/HDL Ratio 2.4 <5.0 [facility] ACCOUNT BILL Comment: FASTING Blood BLOOD SPECIMEN / Unknown 03/04/2021 3:29 PM HOSE TENDER 03/04/2021 Narrative Resulting Agency Comment Lab Testing performed at: [facility] [place] [id number] [address] ?? [place] [phone] Rosana Solo MD LAB - CHEMISTRY MELYSSA CHAHAL [facility] ACCOUNT BILL [address] [place] [address] * DIABETES EYE EXAM (04/04/2020) Only the most recent of3 resultswithin the time period is included. Scanned Document HEALTH MAINTENANCE * T4 FREE (08/30/2019 3:05 PM CDT) Only the most recent of3 resultswithin the time period is included. T4 Free 1.01 0.70 - 1.48 ng/dL [facility] ACCOUNT BILL Blood BLOOD SPECIMEN / Unknown 08/30/2019 3:05 PM CDT 08/30/2019 Narrative Resulting Agency Comment Lab Testing performed at: [place] [address] [address] ?? [place] [phone] Rosana Solo MD LAB - CHEMISTRY MELYSSA CHAHAL [facility] ACCOUNT BILL [address] [place] [address] * (ABNORMAL) TSH+FREE T4+FREE T3 (08/29/2018 2:35 PM CDT) TSH 4.2161(H) 0.358 - 3.74 uIU/mL [facility] ACCOUNT BILL T3 Free 2.20 1.71 - 3.71 pg/mL [facility] ACCOUNT BILL T4 Free 1.04 0.70 - 1.48 ng/dL [facility] ACCOUNT BILL Blood BLOOD SPECIMEN / Unknown 08/29/2018 2:35 PM CDT 08/29/2018 Narrative Resulting Agency Comment Lab Testing performed at: [place] [phone] ?? [place] [phone] Rosana Solo MD LAB - CHEMISTRY MELYSSA CHAHAL Performing Organization Address City/[facility]/ZIP Co de Phone Number [facility] ACCOUNT BILL [address] [place] [address] * (ABNORMAL) HEMOGLOBIN A1C (08/29/2018 2:32 PM CDT) Only the most recent of6 resultswithin the time period is included. Hemoglobin A1c 7.4(H) 4.0 - 6.1 % [facility] ACCOUNT BILL Comment: AVERAGE GLUCOSE MG/DL BLOOD ??166 ?mg/dL Attention clinician: ??Reference Range has changed. Blood BLOOD SPECIMEN / Unknown 08/29/2018 2:32 PM CDT 08/29/2018 Narrative Resulting Agency Comment Lab Testing performed at: [facility] [id number] [place] [address] ?? [place] [id number] Rosana Sool MD LAB - CHEMISTRY [facility] ACCOUNT BILL [address] [place] [address] * XR CHEST 2VW (04/07/2018 4:35 PM HOSE TENDER) Anatomical Region Laterality Modality Chest Radiographic Apolonia ging 04/07/2018 5:12 PM HOSE TENDER Narrative 04/07/2018 5:13 PM HOSE TENDER Chest Two Views History: Acute bronchitis, unspecified Comparison: None Findings: ??There is mild atelectasis within the left lung base. No pneumothorax or pleural effusion. Cardiac silhouette is within normal limits for age. There is degenerative disc disease within the thoracic spine. Reading Radiologist: Evelin Whatley MD on 04/07/2018 at 5:13 PM Procedure Note Evelin Whatley MD - 04/07/2018 Chest Two Views History: Acute bronchitis, unspecified Comparison: None Findings: There is mild atelectasis within the left lung base. No pneumothorax or pleural effusion. Cardiac silhouette is within normal limits for age. There is degenerative disc disease within the thoracic spine. Reading Radiologist: Evelin Whatley MD on 04/07/2018 at 5:13 PM Rosana Solo MD DIAGNOSTIC IMAGING O RDERABLES * (ABNORMAL) LIPID PROFILE (03/02/2018 1:47 PM HOSE TENDER) Only the most recent of3 resultswithin the time period is included. Cholesterol 171 <200 mg/dL [facility] ACCOUNT BILL Triglycerides 230(H) <150 mg/dL [facility] ACCOUNT BILL HDL Cholesterol 39(L) >40 mg/dL [facility] ACCOUNT BILL VLDL Calculated 46(H) <=30 mg/dL [facility] ACCOUNT BILL LDL Calculated 86 <130 mg/dL [facility] ACCOUNT BILL Comment:Not calculated Blood BLOOD SPECIMEN / Unknown 03/02/2018 1:47 PM HOSE TENDER 03/02/2018 Narrative Resulting Agency Comment [facility] [address] ??[place] [phone] Rosana Solo MD LAB - CHEMISTRY ORDE RABLES [facility] ACCOUNT BILL [address] [place] [address] * PT-INR (04/06/2016 3:36 PM HOSE TENDER) INR 0.9 0.9 - 1.1 [facility] ACCOUNT BILL Comment: Conventional Warfarin Anticoagulant Therapy: INR Reference Range: ??2.0-3.0 Intensive Warfarin Anticoagulant Therapy: INR Reference Range: ? 2.5-3.5 PT 9.7 9.5 - 11.6 sec [facility] ACCOUNT BILL Blood BLOOD SPECIMEN / Unknown 04/06/2016 3:36 PM HOSE TENDER 04/06/2016 Narrative Resulting Agency Comment [facility] [address] ??[place] [phone] Rosana Solo MD LAB - COAGULATION OR DERABLES Performing Organization Address City/[facility]/ZIP Co de Phone Number [facility] ACCOUNT BILL [address] [place] [address] Care Teams Certified Orthoptist Relationship Specialty [place] [address] [place] [phone] PCP - General Internal Medicine 01/26/22 [place] [address] [place] [place] [phone] PCP - Attributed-[facility] 02/19/22 [place] [address] [facility] [address] [place] [address] Ophthalmology 04/06/16 Fawn Ramon DPM [address] [place] [address] Podiatry 01/24/21
--- OUTSIDE RECORDS SUMMARY | 2024-04-03 00:57 | XMS_ITS | Encounter Summary ---
Author Organization [facility] Address [address] [place] [address] Care Team Providers Care Event Specialist Name Role Phone Ricco Andrew MD Unavailable [phone] Fawn Ramon DPM Unavailable [phone] Chris Aden MD Primary Care Provider [phone] Chris Aden MD Unavailable Reason for Visit * Reason Onset Date Comments Record Request 02/21/2024 Encounter Details Date Type Department Care Team (Late st Contact Info) Description 02/21/2024 Telephone [facility] - Family Medicine [id number] [place] [address] [place] [id number] [place] [id number] Record Request Social History Tobacco Use Types Packs/Day Years [...] encounter Miscellaneous Notes * Telephone Encounter - Maria Herrera RMA - 02/21/2024 3:55 PM CST Request has been fulfilled and order has been faxed to [facility]. GIOUS LEADER * Telephone Encounter - Eugenie Brown - 02/21/2024 10:40 AM CST Pts daughter Cassie called requesting DME order for wheelchair with corresponding chart notes be faxed to [facility] FAX [phone] GIOUS LEADER documented in this encounter Plan of Treatment Upcoming Encounters Date Type Department Care Team (Late st Contact Info) Description 04/07/2024 10:00 AM RELIGIOUS LEADER Office Visit [facility] [id number] [place] [address] Evelin Blanco, ELECTRIC ORGAN INSPECTOR AND REPAIRER-GARAGE DOOR TECHNICIAN [address] [address] 06/06/2024 2:00 PM CDT Office Visit [facility] [id number] [place] [address] [place] Aden MD [id number] [place] [phone] documented as of this encounter Goals Goal Patient Goal Type Associated Problems Recent Progress Patient-Stated? Author Blood Pressure < 140/90 Blood Pressure 96/68(2023 2:34 PM RELIGIOUS LEADER) Rere Vargas Note: Caring for Your High [...] Where can I go for more information? [place] [employer] National Center: http://www.americanheart.org 1. In the top header, click ? Conditions? . 2. In the top header, click ? high blood pressure.? 3. For a printable blood pressure tracker, scroll toward the bottom of the page to Related Tools, and click ? HBP Trackers.? 2-854-PII-USA-1 or ( ) National Heart, Lung and Blood [place]: http://www.nhlbi.nih.gov/health/infoctr/index.htm Blood Pressure < 140/90 Blood Pressure 96/68(2023 2:34 PM RELIGIOUS LEADER) Rere Vargas Note: Caring for Your High [...] Where can I go for more information? [place] [employer] National Center: http://www.americanheart.org 1. In the top header, click ? Conditions? . 2. In the top header, click ? high blood pressure.? 3. For a printable blood pressure tracker, scroll toward the bottom of the page to Related Tools, and click ? HBP Trackers.? 7-408-CTJ-USA-1 or ( ) National Heart, Lung and Blood [place]: http://www.nhlbi.nih.gov/health/infoctr/index.htm Blood Pressure < 140/90 Blood Pressure 96/68(2023 2:34 PM RELIGIOUS LEADER) Cassie Parks Note: Caring for Your High [...] Where can I go for more information? [place] [employer] National Center: http://www.americanheart.org 1. In the top header, click ? Conditions? . 2. In the top header, click ? high blood pressure.? 3. For a printable blood pressure tracker, scroll toward the bottom of the page to Related Tools, and click ? HBP Trackers.? 9-837-JPZ-USA-1 or ( ) National Heart, Lung and Blood [place]: http://www.nhlbi.nih.gov/health/infoctr/index.htm Exercise 5X per week (30 min per time) Exercise No Rere Kaufman Note: The [place] [employer] recommends all adults [...] how to manage your diabetes: ? ? [place] Diabetes Association: www.diabetes.org 6-377-FPORCDPV ( ) ? ? [place] Diabetes Association-Support group line: www.professional.diabetes.org ? ? [place] Heart Association: www.heart.org or 0-228-HBI-USA-1 ( ) [employer] MyPlate: www.Homeowners of America Holdingmyplate.gov Have labs drawn Lifestyle No Rere Kaufman [...] on filedocumented in this encounter Care Teams Event Specialist Relationship Specialty [place] [address] [id number] PCP - General Internal Medicine 01/26/22 [place] [address] [place] [address] PCP - Attributed-[facility] 02/19/22 [place] [address] [address] [facility] [address] [place] [address] Ophthalmology 04/06/16 Fawn Ramon DPM [address] [place] [address] Podiatry 01/24/21 documented as of this encounter
--- OUTSIDE RECORDS SUMMARY | 2024-04-03 00:57 | XMS_ITS | Encounter Summary ---
Author Organization [facility] Address [address] [facility] [place] [address] Care Team Providers Care Chief Order Dispatcher Name Role Phone Ricco Andrew MD Unavailable [phone] Fawn Ramon DPM Unavailable [phone] Chris Aden MD Primary Care Provider [phone] Chris Aden MD Unavailable Reason for Referral * Home Health Care (Routine) - Pending Review Specialty Diagnoses / Procedures Referred By Ethel oneil Referred To Contact Home Health Services Diagnoses Alzheimer's dementia without behavioral disturbance ([place]) [place] [address] [address] [place] [address] Referral ID Status Reason Start Date Expiration Date Visits Requested Visits Authorized [id number] Pending Review Specialty Services Required 02/26/2024 02/25/2025 999 999 LS AUDITOR * Transfer of Care (Routine) - Open Specialty Diagnoses / Procedures Referred By Ethel oneil Referred To Contact Procedures Follow up with Primary Care Provider ([place]) [place] [id number] [address] [place] [address] Referral ID Status Reason Start Date Expiration Date Visits Re quested Visits Authorized [id number] Open 02/24/2024 02/23/2025 1 1 LS AUDITOR Reason for Visit * Reason Comments Hypotension Pt brought to the ED from his PCP office for hypotension. Pt was being seen for a follow up appointment. Pt denies chest pain or shortness of breath but reports abdominal pain onset last evening. Pt recently treated for pneumonia. * Auth/Cert (Routine) Specialty Diagnoses / Procedures Referred By Contac t Referred To Contact Diagnoses hypotension Referral ID Status Reason Start Date Expiration Date Visits Re quested Visits Authorized [id number] 1 1 Encounter Details Date Type Department Care Team (Late st Contact Info) Description 02/23/2024 2:47 PM SKILLS AUDITOR - 02/26/2024 4:21 PM SKILLS AUDITOR Hospital Encounter [id number] [place] [id number] [place] [id number] [place] [address] [place] [address] [place], [place] [address] [facility] [place] [address] [place] [address] [facility] [facility] [place] [address] Internal Medicine Discharge Disposition: Home or Self Care Social History Tobacco Use Types Packs/Day Years [...] Recorded Patient Health Questionnaire-2 Score 0 02/09/2024 [facility] [place] [facility] - Occupational Stress [...] any time in the past 12 m [facility], were you homeless or living in a alf (including now)? No 02/24/2024 Sex and Gender Information Value Date Recorded Sex Assigned at Male 01/22/2023 1:45 PM CDT Gender Identity Male 01/22/2023 1:45 PM CDT Sexual Orientation Straight 01/22/2023 1: 45 PM CDT documented as of this encounter Last Filed Vital Signs Vital Sign Reading Time Taken Comments Blood Pressure 125/70 02/26/2024 11:50 AM SKILLS AUDITOR Pulse 88 02/26/2024 11:50 AM SKILLS AUDITOR Temperature 36.6 ??C (97.9 ??F) 02/26/2024 11:[address] Respiratory Rate 20 02/26/2024 11:50 AM SKILLS AUDITOR Oxygen Saturation 93% 02/26/2024 11:50 AM SKILLS AUDITOR Inhaled Oxygen Concentration - - Weight 65.8 kg (145 lb) 02/24/2024 12:31 AM SKILLS AUDITOR Height 170.2 cm (5' 7) 02/24/2024 12:31 AM SKILLS AUDITOR Body Mass Index 22.71 02/24/2024 12:31 AM SKILLS AUDITOR documented in this encounter Discharge Summaries * Osiel Lopez MD - 02/26/2024 4:21 PM CST Physician Discharge Summary Patient Name: Mk Sanches Date of : 1935 Admit date: 02/23/2024 Discharge date: 02/26/2024 Admitting Physician: Osiel Lopez MD Attending Physician: Osiel Lopez MD Discharge Physician: Osiel Lopez MD Discharge Diagnosis: Viral syndrome causing diarrhea and hypotension Other Diagnoses: Hyponatremia, anemia, DM2, Hypothyroidism. 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 Presented with concerns of weakness and hypotension at PCP's office. The patient was placed on IV fluids and improved. He did have several loose stools. Was given probiotics with recent history of antibiotic use for pneumonia. The patient was treated/managed for the above listed diagnoses and discharged to home with [facility] orders. Condition at discharge: stable BP 125/70 (BP Location: Left arm, Patient Position: Lying) Pulse 88 Temp 97.9 ??F (36.6 ??C) (Oral) Resp 20 Ht 1.702 m (5' 7) Wt 65.8 kg (145 lb) SpO2 93% Comfortable Chest clear S1+S2+0 Abdomen soft No edema Patient Instructions Current Discharge Medication List CONTINUE taking these medications which have CHANGED Instructions Authorizing Provider ONETOUCH ULTRA TEST STRIPS test strip What changed: when to take this Generic drug: blood glucose Quantity Dispensed: 100 strip Use 1 strip once daily (One touch mini test strips) Rosana Solo MD CONTINUE taking these medications which have NOT CHANGED Instructions Authorizing Provider DIONICIO ASPIRIN REGIMEN PO Take 81 mg by mouth once daily [facility] Purelax 17 GM/SCOOP powder Generic drug: polyethylene glycol 3350 Quantity Dispensed: 510 g TAKE 1 CAPFUL (17G) BY MOUTH DISSOLVED IN 4-8 OZ OF WATER OR JUICE ONCE DAILY Chris Aden MD docusate sodium 100 MG capsule Commonly known as: Colace Quantity Dispensed: 180 capsule TAKE 1 CAPSULE BY MOUTH TWICE A DAY Chris Aden MD glipiZIDE 5 MG tablet Commonly known as: Glucotrol Quantity Dispensed: 180 tablet Take 1 (one) tablet by mouth 2 times daily, before breakfast and supper DX: Type 2 diabetes mellitus with diabetic neuropathy, without long-term current use of insulin (HCC) E11.40 Chris Aden MD ketoconazole 2 % shampoo Commonly known as: Nizoral Quantity Dispensed: 120 mL APPLY TO AFFECTED AREA THREE TIMES A WEEK REASONS: DANDRUFF Chris Aden MD levothyroxine 75 MCG tablet Commonly known as: Synthroid Quantity Dispensed: 90 tablet TAKE 1 TABLET BY MOUTH EVERY DAY BEFORE BREAKFAST Chris Aden MD loratadine 10 MG tablet Commonly known as: Claritin Quantity Dispensed: 90 tablet Take 1 (one) tablet by mouth once daily NIKITA Cruz melatonin 3 MG tablet Take 5 mg by mouth at bedtime memantine 5 MG tablet Commonly known as: Namenda Quantity Dispensed: 180 tablet Take 1 (one) tablet by mouth 2 times daily Chris Aden MD menthol-zinc oxide 0.44-20.625 % ointment Commonly known as: Calmoseptine Quantity Dispensed: 113 g Apply to affected area 2 times daily On both buttocks and at coccyx. NIKITA Cruz ONE TOUCH ULTRA 2 w/Device Kit Use 1 Each 2 times daily ONE TOUCH ULTRASOFT LANCETS Misc Use 1 Each 2 times daily 33 lucy Polyethylene Glycol 3350 1 packet mixed with 8 ounces of fluid Orally Once a day TYLENOL ARTHRITIS PAIN PO Take 500 mg by mouth Two times a week vitamin D3 (25 MCG) 1000 UNIT capsule Commonly known as: Cholecalciferol Quantity Dispensed: 30 capsule Take 1 (one) capsule by mouth once daily Reasons: Vitamin D Deficiency Chris Aden MD Discharge Procedure Orders Referral to Home Health Care Referral Priority: Routine Referral Type: Home Health Care Referral Reason: Specialty Services Required Requested Specialty: Home Health Services Number of Visits Requested: 999 Why you were hospitalized Order Specific Question Answer Comments Your discharge diagnosis is: Hypotension [[id number]] Follow up with Primary Care Provider (PCP) Our records show your Primary Care Provider (PCP) is Chris Aden MD. With Dr Aden in 2 weeks if possible Order Specific Question Answer Comments Follow Up Instructions for Patient: Other (See Comment) No special diet needed Focus on protein intake Activity as tolerated Rest today, and increase your activity level tomorrow as tolerated. READMISSION RISK SCORE is 14 at 6:23 PM 02/26/2024. Discharge time : 31 minutes spent interviewing and examining patient, discussing discharge plan, preparing discharge instructions and prescriptions. Discharge summary also completed on the day of discharge. LS AUDITOR documented in this encounter Medications at Time of Discharge Medication Sig Dispensed Refills Start Date End Date Acetaminophen (TYLENOL ARTHRITIS PAIN PO) Take 650 mg by mouth 2 times daily DIONICIO ASPIRIN REGIMEN PO Take 81 mg by mouth once daily Blood Glucose Monitoring Suppl (ONE TOUCH ULTRA 2) w/Device KIT Use 1 Each 2 times daily [facility] Purelax 17 GM/SCOOP powder TAKE 1 CAPFUL (17G) BY MOUTH DISSOLVED IN 4-8 OZ OF WATER OR JUICE ONCE DAILY 510 g 3 05/21/2023 glipiZIDE (Glucotrol) 5 MG tablet Take 1 (one) tablet by mouth 2 times daily, before breakfast and supper DX: Type 2 diabetes mellitus with diabetic neuropathy, without long-term current use of insulin (HCC) E11.40 180 tablet 2 01/10/2024 ketoconazole (Nizoral) 2 % shampooIndications:Se borrheic Dermatitis of Scalp APPLY TO AFFECTED AREA THREE TIMES A WEEK REASONS: DANDRUFF 120 mL 5 05/12/2023 levothyroxine (Synthroid) 75 MCG tablet TAKE 1 TABLET BY MOUTH EVERY DAY BEFORE BREAKFAST 90 tablet 3 02/22/2024 loratadine (Claritin) 10 MG tablet Take 1 (one) tablet by mouth once daily 90 tablet 4 09/03/2023 melatonin 3 MG tablet Take 5 mg by mouth at bedtime memantine (Namenda) 5 MG tablet Take 1 (one) tablet by mouth 2 times daily 180 tablet 2 01/03/2024 menthol-zinc oxide (Calmoseptine) 0.44-20.625 % ointment Apply to affected area 2 times daily On both buttocks and at coccyx. 113 g 2 10/13/2023 ONE TOUCH ULTRASOFT LANCETS MISC Use 1 Each 2 times daily 33 lucy ONETOUCH ULTRA TEST STRIPS test strip Use 1 strip once daily (One touch mini test strips) 100 strip 2 05/03/2018 Polyethylene Glycol 3350 Vitamin D3 (25 MCG) 1000 UNIT capsuleIndications:Vi tamin D Deficiency Take 1 (one) capsule by mouth once daily Reasons: Vitamin D Deficiency 30 capsule 06/01/2023 docusate sodium (Colace) 100 MG capsule TAKE 1 CAPSULE BY MOUTH TWICE A DAY 180 capsule 3 03/31/2023 03/31/2024 documented as of this encounter Progress Notes * Danny Chiu RN - 02/26/2024 4:21 PM CST CM called pt number and spoke with (Rosana) pt caregiver who states pt would still like [facility] referrals to be sent out based on insurance as pt would like to work with PT some. CM will continue to f/u regarding the referrals that were sent. LS AUDITOR * Rhianna Geronimo RN - 02/26/2024 4:09 PM CST Patient was received and remained inj stable condition throughout shift. Breathing on RA. Nil obvious cardiopulmonary distress noted. ANO X 1-2. Assist x2. Movement and sensation to all limbs. Pure wick noted. BENJI saline lock. Cast intact to RT arm. Patient reviewed by attending Dr. Discharge orders were placed and same acknowledged. Discharge teaching done. BENJI removed and area covered. Patient left floor accompanied by in wheelchair in stable condition. LS AUDITOR * Rhianna Geronimo RN - 02/26/2024 4:08 PM CST Problem: Pain/Discomfort Goal: Patient exhibits reduced pain/discomfort as evidenced by pain scores Outcome: Adequate for Discharge Goal: Patient uses pharmacological and non-pharmacological pain management strategies. Outcome: Adequate for Discharge Goal: Patient verbalizes acceptable level of pain relief and ability to engage in desired activity. Outcome: Adequate for Discharge Problem: Fall Risk Goal: Fall risk and fall related injury risk are minimized (interventions related to the fall risk can be found in the flowsheet documentation) Outcome: Adequate for Discharge Problem: Fall Risk Goal: Patient will remain free of falls Outcome: Adequate for Discharge Problem: General Goal: STG(1)-Patient will Description: Complete toilet transfer at MIN A. 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 Outcome: Adequate for Discharge Goal: STG-Patient will Description: Tolerate standing for up to 2 minutes at MIN A to complete BADL. Outcome: Adequate for Discharge Problem: Skin/Tissue Integrity - Adult Goal: Skin integrity remains intact Description: INTERVENTIONS: Outcome: Adequate for Discharge Goal: Incisions, wounds, or drain sites healing without S/S of infection Description: INFECTIONS: Outcome: Adequate for Discharge Goal: Oral mucous membranes remain intact Description: INTERVENTIONS: Outcome: Adequate for Discharge Problem: Neurosensory - Adult Goal: Achieves stable or improved neurological status Description: INTERVENTIONS Outcome: Adequate for Discharge Problem: Musculoskeletal - Adult Goal: Return mobility to safest level of function Description: INTERVENTIONS: Outcome: Adequate for Discharge Goal: Return ADL status to a safe level of function Description: INTERVENTIONS: Outcome: Adequate for Discharge LS AUDITOR * Fernandez Fernandes PharmD - 02/26/2024 3:01 PM CST Images from the original note were not included. Clinical Pharmacist Discharge Medication Reconciliation Review Patient's home medication list and inpatient orders were reviewed and compared to the discharge order summary and the AVS placed by the provider. Patients MAR, progress notes, recent labs, micro, vitals, procedural results, etc. reviewed as necessary. READMISSION RISK SCORE is 14 at 3:01 PM 02/26/2024. Readmission risk score > 18 are considered high risk for readmission. ASSESSMENT Medication discrepancies identified or potential areas for Intervention: None PLAN No medication adjustments were made after physician's discharge medication reconciliation. MEDICATION RECONCILIATION REVIEW AVS was updated as necessary. Updated discharge medication list is below in objective section. 02/26/2024 at 3:01 PM Objective Current Discharge Medication List CONTINUE these medications which have NOT CHANGED Details Acetaminophen (TYLENOL ARTHRITIS PAIN PO) Take 500 mg by mouth Two times a week DIONICIO ASPIRIN REGIMEN PO Take 81 mg by mouth once daily Blood Glucose Monitoring Suppl (ONE TOUCH ULTRA 2) w/Device KIT Use 1 Each 2 times daily [facility] Purelax 17 GM/SCOOP powder TAKE 1 CAPFUL (17G) BY MOUTH DISSOLVED IN 4-8 OZ OF WATER OR JUICE ONCE DAILY docusate sodium (Colace) 100 MG capsule TAKE 1 CAPSULE BY MOUTH TWICE A DAY glipiZIDE (Glucotrol) 5 MG tablet Take 1 (one) tablet by mouth 2 times daily, before breakfast and supper DX: Type 2 diabetes mellitus with diabetic neuropathy, without long-term current use of insulin (HCC) E11.40 ketoconazole (Nizoral) 2 % shampoo APPLY TO AFFECTED AREA THREE TIMES A WEEK REASONS: DANDRUFF levothyroxine (Synthroid) 75 MCG tablet TAKE 1 TABLET BY MOUTH EVERY DAY BEFORE BREAKFAST loratadine (Claritin) 10 MG tablet Take 1 (one) tablet by mouth once daily melatonin 3 MG tablet Take 5 mg by mouth at bedtime memantine (Namenda) 5 MG tablet Take 1 (one) tablet by mouth 2 times daily menthol-zinc oxide (Calmoseptine) 0.44-20.625 % ointment Apply to affected area 2 times daily On both buttocks and at coccyx. ONE TOUCH ULTRASOFT LANCETS MISC Use 1 Each 2 times daily 33 lucy ONETOUCH ULTRA TEST STRIPS test strip Use 1 strip once daily (One touch mini test strips) Polyethylene Glycol 3350 1 packet mixed with 8 ounces of fluid Orally Once a day Vitamin D3 (25 MCG) 1000 UNIT capsule Take 1 (one) capsule by mouth once daily Reasons: Vitamin D Deficiency LS AUDITOR * Elke Dumont RN - 02/25/2024 11:34 PM CST Problem: Pain/Discomfort Goal: Patient exhibits reduced pain/discomfort as evidenced by pain scores Outcome: Progressing Goal: Patient uses pharmacological and non-pharmacological pain management strategies. Outcome: Progressing Goal: Patient verbalizes acceptable level of pain relief and ability to engage in desired activity. Outcome: Progressing Problem: Fall Risk Goal: Patient will remain free of falls Outcome: Progressing Problem: Neurosensory - Adult Goal: Achieves stable or improved neurological status Description: INTERVENTIONS frequent reorientation Outcome: Progressing Problem: Skin/Tissue Integrity - Adult Goal: Skin integrity remains intact Description: INTERVENTIONS: keep skin clean and dry, q 2hrly turns Outcome: Progressing LS AUDITOR * Manuela Wahl RN - 02/25/2024 2:51 PM CST Care Coordination Progress Note Expected Discharge Date: 02/24/2024: Discharge Plan: I just spoke to pt's dtr Mindy regarding the change from min asst to max asst per therapy notes, the family would like HHC at d/c. I will send HHC referral out. Pt d/c plan is home with hhc/family will transport unless otherwise indicated. I will continue to follow. Family Support (Name and Phone): Extended Emergency Contact Information Primary Emergency Contact: Minyd Granados [address]: [address] [place] [address] [place] [address] [facility] Relation: Daughter Secondary Emergency Contact: Daisy Sanches [facility] Relation: Daughter Transportation at Discharge: : READMISSION RISK SCORE is 14 at 2:51 PM 02/25/2024.: Name: Manuela Wahl [id number] LS AUDITOR * Man Lujan, OT - 02/25/2024 2:39 PM CST Occupational Therapy Treatment Summary Chart reviewed for diagnosis and medical systems review. Nursing consented for OT. Explained purpose of OT and patient consented to participate in therapy. 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 OT Discharge Recommendations: Patient would benefit from multidisciplinary therapy (vs. OT home health with 24 hr care assist) This recommendation is made due to ongoing OT functional needs: address care for self in the home;address functional deficits;patient to return to prior level of care;patient is motivated and actively participating in therapy;patient has ability to improve with skilled therapy intervention Recommended Transportation Method: Stretcher/Ambulance (vs. private car) PPE worn by staff: gloves;gown - disposable;mask - N95;eye protection AM-PAC Daily Activity score for this patient is Daily Activity Raw Score:: 12 Precautions: fall, skin, suspect covid 19, cast R UE-NWB anticipated (MD did not call back) SUBJECTIVE: Pt reports, thank you ladjohnathan, have a nice day. Psychosocial: Patient Behaviors: Calm;Confused;Cooperative Family Behaviors: Calm;Cooperative;Supportive Pt's goal for therapy: pt agrees to participate in therapy OBJECTIVE: Pain Assessment: Pain Assessment Pain Scale/Observation: No/denies pain Pain Rating Score #1: 0 Cognition: Orientation Level: Disoriented to Time;Disoriented to Situation;Disoriented to Place Level of Consciousness-Adult: (alert) Cognition: Confused Functional Mobility: Bed Mobility: Supine to Sit: Moderate Assistance (MAX A to scoot fully to EOB) Transfers: Sit to Stand: Maximum Assistance Stand to Sit: Maximum Assistance Bed to Chair: Maximum Assistance to Left (x's MOD A of 2nd person) Type of Transfer: Squat Pivot Transfer Toilet Transfers: Maximum Assistance;X 2 (of 2 people.) Transfer Device: Gait belt Mobility: Balance: static sit balance EOB good- with left UE support ADL Tasks: Feeding: Stand By Assist Oral Facial Hygiene: Moderate Assistance Bathing: Maximal Assistance Upper Body Dressing: Maximal Assistance Lower Body Dressing: Maximal Assistance Toileting: Total Assistance RUE Assessment: AROM - Right Upper Extremity: Exceptions (shoulder AROM flex 40 degree's, AAROM 95 degree's, R handed) Bar Examiner Strength:Bar Examiner Strength - Right Upper Extremity: poor+ LUE Assessment: AROM - Left Upper Extremity: Within Functional Limits (at least 3/5 MMT shoulder and elbow, pt unable to follow commands for MMT) Bar Examiner Strength:Bar Examiner Strength - Left Upper Extremity: fair: Activity Tolerance: good for graded activity Activity Tolerance: Requires seated rest breaks SpO2: 98 % Pulse: 74 BP: 99/60 (semi clayton, chair 93/58), Left UE ASSESSMENT: OT arrived and pt/family ok'd family training. OT instructed pt in sitting EOB extensive assist with roll to left, scoot EOB, and dtr took lead for squat pivot to chair with therapist assist posteriorly. OT assisted pt to scoot back in chair and not use RUE, B UE scapular elevation 10x's, shoulder flex AAROM 10x's MIN A, and discussed digit flex/extension which dtr reports she does daily with pt due to R 3rd digit trigger finger. OT elevated R UE on pillow as pt with cast. Dtr reports she purchased pt AAROM floor pedal bike for pt exercise at home with and only used 1x before pt with declined medical health/fx. Dtr reports she has someone at home to assist her with transfers and still wants to take pt home. Educated patient/family need for hospital bed and potential use of marlee stedy for home, body mechanics for dtr and proper handling for pt to hold onto dtr, use of draw sheet at home to assist, BUE HEP recommended daily. Pt not back to PLOF and would benefit from ongoing OT services to max. Pt's ADLindependence and reduce burden of care as pt with decreased strength, decreased activity tolerance,dementia affecting cognition, decreased balance to name a few. Call light and phone in reach with pt in chair and alarm activated. All lines, monitors, IV's, equipment in place and intact pre and post visit. RN, day shift, notified of patient's performance/location end of session. Kisha, fieldwork student, present to assist throughout the session. Mobility Status-White Board Mobility Status Communication-White Board Updated?: Yes Please refer to the Filed Flowsheet OT Treatment for further details. Refer to care plan for goals. If this is the last Occupational Therapy visit, this serves as the discharge summary. STORMY ConwayR/L x [phone] LS AUDITOR * Osiel Lopez MD - 02/25/2024 10:23 AM CST Admit Date: 02/23/2024 2:47 PM Hospital Day: 2 Reason for visit/follow up: sent from pcp office for hypotension New Symptoms Patient has no new symptoms. Weak per PT Data Vitals: 02/24/24 1312 02/24/24200702/25/24 0421 02/25/24 0550 BP: 99/60 107/70 112/76 140/92 Pulse: 91 88 76 97 Resp: 18 18 18 Temp: 98 ??F (36.7 ??C) 98.7 ??F (37.1 ??C) 97.3 ??F (36.3 ??C) SpO2: 98% 97% 98% 99% Weight: Height: Intake/Output Summary (Last 24 hours) at 02/25/2024 1023 Last data filed at 02/25/2024 0400 Gross per 24 hour Intake -- Output 800 ml Net -800 ml My review of labs, imaging, notes and other tests is significant for stable labs Recent Labs Component Name 02/25/24 0414 02/24/24 0538 02/23/24 1610 SODIUM 132* 133* 132* POTASSIUM 4.2 4.1 4.7 CHLORIDE 104 103 99 CO2 20 24 21* BUN 12 15 18 CREATININE 0.87 0.87 1.19 GLUCOSE 192* 107* 178* CALCIUM 8.3* 8.7 8.9 Recent Labs Component Name 02/24/24 0538 02/23/24 1651 12/02/23 1557 WBC 6.7 9.3 6.3 HGB 11.0* 11.2* 14.8 HCT 33.7* 33.2* 44.6 PLTCOUNT 320 284 279 MEDICATIONS FOR CURRENT ENCOUNTER: SCHEDULED MEDICATIONS: 0.9% NaCl injection 3 mL, Intracatheter, q8h 0.9% NaCl injection 3 mL, Intracatheter, q8h enoxaparin (Lovenox) injection 40 mg, Subcutaneous, QDAY levothyroxine (Synthroid) tablet 75 mcg, Oral, QDAY BEFORE BREAKFAST loratadine (Claritin) tablet 10 mg, Oral, QDAY melatonin tablet 5 mg, Oral, AT BEDTIME memantine (Namenda) tablet 5 mg, Oral, BID [COMPLETED] methylPREDNISolone sod succ (SOLU-Medrol) injection 20 mg, Intravenous, Once CONTINUOUS MEDICATIONS: Exam General appearance: alert, cooperative, Heart: regular rhythm, normal S1 and S2, without murmurs, rubs or gallops Lungs: breath sounds normal and symmetric; no rales or wheezes Abdomen: soft without mass, non-tender, with normal bowel sounds Extremities: no clubbing, cyanosis or edema Assessment and Plan Hypotension and failure to thrive Improved on IV fluids Recently treated for PNA Did not do well with PT Hyponatremia Mild Anemia Noted DM2 SSI Hypothyroidism On levothyroxine DVT prophylaxis Lovenox Diarrhea Recent abx use Try probiotics Check for covid 19 as well Discussed with daughter 02/24 She would prefer to bring him home rather than SNF Portions of this document have been carried over from prior notes and may contain unintentional discrepancies. Please refer to orders and MAR for the most accurate and up-to-date information. LS AUDITOR * Charlie Ngo RN - 02/25/2024 3:15 AM CST Problem: Pain/Discomfort Goal: Patient exhibits reduced pain/discomfort as evidenced by pain scores Outcome: Progressing Goal: Patient uses pharmacological and non-pharmacological pain management strategies. Outcome: Progressing Goal: Patient verbalizes acceptable level of pain relief and ability to engage in desired activity. Outcome: Progressing Problem: Fall Risk Goal: Fall risk and fall related injury risk are minimized (interventions related to the fall risk can be found in the flowsheet documentation) Outcome: Progressing Problem: Fall Risk Goal: Patient will remain free of falls Outcome: Progressing Problem: Skin/Tissue Integrity - Adult Goal: Skin integrity remains intact Description: INTERVENTIONS: Outcome: Progressing Goal: Incisions, wounds, or drain sites healing without S/S of infection Description: INFECTIONS: Outcome: Progressing Goal: Oral mucous membranes remain intact Description: INTERVENTIONS: Outcome: Progressing LS AUDITOR * Osiel Lopez MD - 02/24/2024 8:46 PM CST Admit Date: 02/23/2024 2:47 PM Hospital Day: 1 Reason for visit/follow up: sent from pcp office for hypotension New Symptoms Patient has no new symptoms Data Vitals: 02/24/24 0031 02/24/24 0524 02/24/24 1100 02/24/24 1312 BP: 100/60 117/68 103/65 99/60 Pulse: 82 68 64 91 Resp: 16 18 18 Temp: 98 ??F (36.7 ??C) 97.5 ??F (36.4 ??C) SpO2: 97% 93% 98% Weight: 65.8 kg (145 lb) Height: 1.702 m (5' 7) No intake or output data in the 24 hours ending 02/24/242045 My review of labs, imaging, notes and other tests is significant for stable labs Recent Labs Component Name 02/24/24 0538 02/23/24 1610 12/02/23 1557 SODIUM 133* 132* 132* POTASSIUM 4.1 4.7 4.9 CHLORIDE 103 99 93* CO2 24 21* 23 BUN 15 18 21 CREATININE 0.87 1.19 1.14 GLUCOSE 107* 178* 174* 134 CALCIUM 8.7 8.9 9.7 Recent Labs Component Name 02/24/24 0538 02/23/24 1651 12/02/23 1557 WBC 6.7 9.3 6.3 HGB 11.0* 11.2* 14.8 HCT 33.7* 33.2* 44.6 PLTCOUNT 320 284 279 MEDICATIONS FOR CURRENT ENCOUNTER: SCHEDULED MEDICATIONS: 0.9% NaCl injection 3 mL, Intracatheter, q8h 0.9% NaCl injection 3 mL, Intracatheter, q8h enoxaparin (Lovenox) injection 40 mg, Subcutaneous, QDAY levothyroxine (Synthroid) tablet 75 mcg, Oral, QDAY BEFORE BREAKFAST loratadine (Claritin) tablet 10 mg, Oral, QDAY melatonin tablet 5 mg, Oral, AT BEDTIME memantine (Namenda) tablet 5 mg, Oral, BID [COMPLETED] lactated ringers IV bolus, Intravenous, Once CONTINUOUS MEDICATIONS: 0.9% NaCl infusion, Intravenous, Continuous Exam General appearance: alert, cooperative, Heart: regular rhythm, normal S1 and S2, without murmurs, rubs or gallops Lungs: breath sounds normal and symmetric; no rales or wheezes Abdomen: soft without mass, non-tender, with normal bowel sounds Extremities: no clubbing, cyanosis or edema Assessment and Plan Hypotension and failure to thrive Improved on IV fluids Recently treated for PNA PT to determine dc needs Hyponatremia Mild Anemia Noted DM2 SSI Hypothyroidism On levothyroxine DVT prophylaxis Lovenox Discussed with daughter by phone Portions of this document have been carried over from prior notes and may contain unintentional discrepancies. Please refer to orders and MAR for the most accurate and up-to-date information. LS AUDITOR * Candi Knapp, Graduate Nurse - 02/24/2024 7:48 PM CST Problem: Pain/Discomfort Goal: Patient exhibits reduced pain/discomfort as evidenced by pain scores Outcome: Progressing Goal: Patient uses pharmacological and non-pharmacological pain management strategies. Outcome: Progressing Goal: Patient verbalizes acceptable level of pain relief and ability to engage in desired activity. Outcome: Progressing Problem: Fall Risk Goal: Fall risk and fall related injury risk are minimized (interventions related to the fall risk can be found in the flowsheet documentation) Outcome: Progressing Problem: Fall Risk Goal: Patient will remain free of falls Outcome: Progressing LS AUDITOR * Man Lujan, OT - 02/24/2024 2:36 PM CST Occupational Therapy Initial Evaluation Orders received. Chart reviewed for diagnosis and medical systems review. Nursing consented for OT. Explained purpose of OT and patient consented to participate in therapy. 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 OT Discharge Recommendations: Patient would benefit from multidisciplinary therapy This recommendation is made due to ongoing OT functional needs: address care for self in the home;address functional deficits;patient to return to prior level of care;patient is motivated and actively participating in therapy;patient has ability to improve with skilled therapy intervention Recommended Transportation Method: Stretcher/Ambulance PPE worn by staff: gloves AM-PAC Daily Activity score for this patient is Daily Activity Raw Score:: 12 Precautions: fall, skin, R UE cast for displaced olecranon fx (called out to Dr. Lico Ellis from [facility] and awaiting call back on pt's wt. 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 resolved Chronic renal failure Dementia (HCC) Dermatitis DM (diabetes mellitus) (HCC) HTN (hypertension) Hx of rheumatic fever Hypothyroid Seasonal allergies Trigger finger - R Olecreon fx 01/22/24, casted approx. 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 Pt indicates he had 22 kids at first and later reports he had 7 kids with dtr reporting that was correct. Psychosocial: calm and cooperative Pt's goal for therapy: unstated, reporting no goals Occupational Profile/PLOF: Per dtr Mindy via telephone, pt was Home Situation Type of Residence: Private Residence Living arrangement: Children (with dtr Minyd) Steps to Enter: (1+1+1+1) Home Structure: One Story Primary Bedroom: First Floor Primary Bathroom: First Floor Bathroom : Tub/Shower Combo (sponge bath, commode) Equipment at Home: Walker (w/c (needs smaller one),) Type of Walker: 4 Wheeled Walker/Rollator Additional Information (PT): Patient is a poor historian. Unable to give home situation. Per phone call with tamir, since patient fractured elbow daughter has been using rollator for patient to siton to transfer around the home. Patient also is requiring assistance to get out of bed. Before fx, patient able to walk small distances around the house with FWW. All home set up was provided with daughter on the phone. Additional Information (OT): cast 6 wks, comes off 03/01, dr. lico ellis, elbow fx, was able to get into shower. Per dtr Prior Level of Function Mobility: Ambulate-In Home ;With Assistive Device (walker) Fallen Within 6 Mos: 1 Have Help at Home?: Yes, there is help at home now Who assists you at home?: Friends/Family (daughter is primary caregiver) How often is assistance provided?: 12/10 Level of Help Sufficient?: Yes Oxygen at Home: No Activity at Home: Sedentary Vision: Corrected with glasses Hearing Exceptions: Hearing concerns (hears better R ear) PLOF ADL: Prior to Admission Feeding: Supervision, Set-Up, Cues Prior to Admission Oral Facial Hygiene: Supervision, Set-Up, Cues Prior to Admission Bathing: Stand By Assist Prior to Admission Upper Body Dressing: Supervision, Set-Up, Cues Prior to Admission Lower Body Dressing: Supervision, Set-Up, Cues Prior to Admission Toileting: Stand By Assist Prior to Admission Bladder: (wears depends at home per dtr) Cognition: Orientation Level: Disoriented to Time;Disoriented to Situation;Disoriented to Place Cognition: Confused Pain Assessment: Pain Assessment Pain Scale/Observation: No/denies pain RUE Assessment: cast MCP up to just above elbow, AROM - Right Upper Extremity: Exceptions (shoulder AROM flex 40 degree's, AAROM 95 degree's, R handed), R 3rd digit trigger finger. Bar Examiner Strength: Bar Examiner Strength - Right Upper Extremity: poor+ LUE Assessment: AROM - Left Upper Extremity: Within Functional Limits (at least 3/5 MMT shoulder and elbow, pt unable to follow commands for MMT) Bar Examiner Strength: Bar Examiner Strength - Left Upper Extremity: fair: Basic ADL's: Feeding: Stand By Assist;Set-up (with left hand) Oral Facial Hygiene: Moderate Assistance (seated) Bathing: Maximal Assistance Upper Body Dressing: Maximal Assistance Lower Body Dressing: Maximal Assistance Toileting: Total Assistance Functional Mobility: Bed Mobility: Supine to Sit: Moderate Assistance (for trunk assist) Transfers: Sit to Stand: Maximum Assistance Stand to Sit: Maximum Assistance Type of Transfer: Stand Pivot Transfer Toilet Transfers: Maximum Assistance;X 2 (of 2 people.) Transfer Device: Gait belt Mobility: Balance: Sitting - Static: Fair +;With One Upper Extremity Support Standing - Static: Poor (retropulsion strong) Cardiopulmonary: Vital signs: BP taken on left UE Before mobility During mobility After mobility BP 99/60 HR (bpm) 91 RR (breaths/min) SpO2 (%) 98 LPM O2 source RA Position Semi clayton ASSESSMENT: OT arrived and pt awake. Pt with stained red/orange around mouth from lunch and doesn'trecall what he ate. OT set-up for wiping mouth off requiring assistance. OT monitored pt's vitals. Pt's dtr Daisy present during eval. OT instructed pt to sit EOB not using R UE, assessed B UE AROM and attempted MMT shoulders, LE dressing, and sit to stand. Upon standing pt had BM and Pt was sat back down on bed for gathering supplies to clean pt up. OT instructed pt in transfer to BSC to finishwhich pt able to have more BM in commode. Pt required total assist for clean-up, gown changed, and pt transferred back to bed. Pt tolerated standing up MAX A for at least 50 seconds. OT assisted pt to elevate RUE on 2 pillows for joint protection, reduce edema slight around MCP's. Pt not back to PLOF and would benefit from ongoing OT services to max. Pt's ADL independence and reduce burden of care. Call light and phone in reach with pt in bed and bed alarm activated. All lines, monitors, IV's, equipment in place and intact pre and post visit. RN, day shift, notified of patient's performance/location end of session. Jena, OT student, present to assist throughout the session. Educated patient/family in role of OT, need for ongoing OT services, assist out of bed/chair, elevate R UE on pillows. Problem list: Decreased strength, decreased ROM, decreased endurance, decreased balance, impaired functional mobility, decreased coordination, impaired safety awareness, cognitive impairment, impaired cardiopulmonary function, decreased knowledge of condition, decreased pain tolerance, need for family/caregiver training Functional limitation: Decreased independence with transfers; decreased ability to perform ADLs, decreased UE strength, decreased safety with functional mobility. Rationale for therapy: Patient will benefit from OT to address the above issues. Patient will be seen for: ADL retraining, functional transfers, balance, endurance, exercise. Refer to Plan of Care for OT goals. Refer to filed flow sheet for further details. If this is the last Occupational Therapy visit, this serves as the discharge summary. STORMY ConwayR/Bony x [phone] LS AUDITOR * Staff, Fransisca PT - 02/24/2024 12:37 PM CST Physical Therapy Evaluation. PT orders received, chart reviewed for diagnosis and medical systems review.. Nursing consents for PT. Explained purpose of PT and patient consented to participate in therapy. RECOMMENDATIONS/PLAN: Continue with Acute PT. Trial cane for transfers. Sit to stand to cane. Transfer to chair PT Discharge Recommendations: Patient would benefit from multidisciplinary therapy This recommendation is made due to ongoing PT functional needs: address care for self in the home;address functional deficits;patient to return to prior level of care;patient has ability to improve with skilled therapy intervention Recommended Transportation Method: Stretcher/Ambulance PPE worn by staff: gloves PPE worn by patient: gown - patient, clean AM-PAC Basic mobility score for this patient is Mobility Raw Score:: 11 PMH: Past Medical History: Diagnosis Date Benign hypertension with chronic kidney disease 02/05/2016 BP controlled off rx. resolved Chronic renal failure Dementia (HCC) Dermatitis DM (diabetes mellitus) (HCC) HTN (hypertension) Hx of rheumatic fever Hypothyroid Seasonal allergies Trigger finger Dx: (I95.9) Hypotension, unspecified hypotension type (R62.7) Adult failure to thrive (E86.9) Volume depletion Subjective: Patient agreeable to therapy Patient's Primary Concern: to get home Home Situation: Home Situation Type of Residence: Private Residence Living arrangement: Children (daughter and son in law) Steps to Enter: (1+1+1+1) Ramp: No Handrails: None Home Structure: One Story Primary Bathroom: First Floor Bathroom : (sponge bath, commode) Equipment at Home: Walker Type of Walker: Front Wheeled Walker (and rollator) Additional Information (PT): Patient is a poor historian. Unable to give home situation. Per phone call with tamir, since patient fractured elbow daughter has been using rollator for patient to siton to transfer around the home. Patient also is requiring assistance to get out of bed. Before fx, patient able to walk small distances around the house with FWW. All home set up was provided with daughter on the phone. 03/01 cast is supposed to come off but daughter unsure of weightbearing status. Prior Level of Functioning: Prior Level of Function Mobility: Ambulate-In Home ;With Assistive Device (walker) Fallen Within 6 Mos: 1 Have Help at Home?: Yes, there is help at home now Who assists you at home?: Friends/Family (daughter is primary caregiver) How often is assistance provided?: all the time Level of Help Sufficient?: Yes Oxygen at Home: No Activity at Home: Sedentary Vision: No impairment Hearing Exceptions: No impairment Who manages medications?: daughter Pain Assessment: Pain Assessment Pain Scale/Observation: No/denies pain Patient/family stated goal: to walk OBJECTIVE: Cognition: Orientation Level: Disoriented X4 Cognition: Confused (inconsistent with command following) Precautions: fall risk, skin, PIV Precautions Weight Bearing Status: Upper Extremity (RUE cast, no information in EMR regarding weightbearing precautions. treated as NWB) ROM and Strength: Strength - Right Lower Extremity: Within Functional Limits Strength - Left Lower Extremity: Within Functional Limits Balance: Sitting - Static: Fair + Sitting - Dynamic: Fair Standing - Static: Poor + Standing - Dynamic: Poor Bed Mobility: Supine to Sit: Moderate Assistance (with trunk) Sit to Supine: Moderate Assistance (with BLEs; x2 to boost up in bed) Transfers: Sit to Stand: Maximum Assistance;Requires Verbal Cues for Safety;Requires Verbal Cues for Technique(3 times) Stand to Sit: Maximum Assistance;Requires Verbal Cues for Safety;Requires Verbal Cues for Technique(3 times) Chair to Bed: Maximum Assistance to Left;Maximum Assistance to Right Type of Transfer: Stand Pivot Transfer Transfer Device: Gait belt Mobility: Activity Tolerance: Activity Tolerance: Requires rest breaks;Requires seated rest breaks Vital signs: BP taken on L UE Before mobility During mobility BP 103/65 108/73 HR (bpm) 64 RR (breaths/min) 18 SpO2 (%) 93 O2 source RA Position Supine Seated Notes from Vital Signs: Vitals stable throughout; no complaints from patient.. ASSESSMENT: Patient is a 88 year old male with PMH of HTN, CKD, Chronic renal failure, dementia, and DM. Patient admitted for increasing weakness, lethargy, and poor p.o. intake. Patient presents with RUE cast that extends from palm of hand to below the shoulder. Patient unable to give information regarding cast. No information in EMR regarding weightbearing status. Treated patient today as NWB RUE. Patient unable to give any subjective history, called daughter after session to receive more information. Patient had BM during standing. Stood multiple times to clean patient up as he would fatigue and require rest breaks. Patient required verbal cueing for all stands to not put weight through RUE, and use LUE to help push up. Maximal encouragement was also used to stand erect, so pericare could be complete. Patient unable to assist during transfer as he did not shrimp picker his feet to move. Ambulation was not appropriate at this time. Ended session back in patient's bed. Patient will continue to benefit from skilled PT to improve activity tolerance, increase functional mobility, and returnto his prior level of function. Call light and phone in reach with bed alarm activated. All lines, monitors, IV's, equipment in place and intact pre and post visit. RNCandi, notified of patient's performance/location end of session. Rui, PT, present to assist throughout the session. Pt educated in PT plan of care, fall precautions, and benefits of OOB activity. Problem list: decreased strength, decreased balance, decreased endurance, decreased ROM, decreased coordination Functional limitations: Decreased independence with ambulation/transfers, decreased safety with functional mobility. Rationale for therapy: Patient will benefit from PT to address the above issues. Refer to Plan of Care for PT goals. Please refer to Filed Flowsheet PT Evaluation for further details. If this is the last PT visit, this note serves as the discharge summary. Fransisca Staff, PT, DPT LS AUDITOR * Ese Clark - 02/24/2024 12:17 PM CST 02/24/24 1200 Visit Type Assessment Date 02/24/24 Industrial Energy Engineer Visiting Patient VW Pastoral Care Visit Type(s) Patient not available LS AUDITOR * Manuela Wahl RN - 02/24/2024 12:11 PM CST Care Coordination Initial Assessment Expected Discharge Date: 02/24/2024 Expected Discharge Disposition: home with dtr mindy Transportation at Discharge: dtr Prior Level of Care: home Prior to Admit Provider: Dr Aden Comments: CM to Date: Pt present to the hospital with hypotension/failure to thrive/volume depletion lives with dtr Mindy. Pt is on ivf's/ modified cons diet/therapies to eval. Pt d/c plan is home with dtr Mindy and she will transport. I will continue to follow. Lives with: Children Physical Limitations: min asst per dtr Requires Assistance With: use a Rolator Preferred Pharmacy: [id number] - [phone] [place] [id number] [place] [address] READMISSION RISK SCORE is N/A at 12:54 PM 02/24/2024. Met with patient Family Support (name and phone): Extended Emergency Contact Information Primary Emergency Contact: Mindy Granados [address]: [address] [place] [address] [place] [address] [facility] Relation: Daughter Secondary Emergency Contact: Daisy Sanches [facility] Relation: Daughter Patient or technical sales representatives requests care coordination reach out to family or caregiver listed above regarding discharge planning and at time of discharge? Yes Actual Level of Care/Dispostion Details Actual Level of Care at Discharge: Home Patient / Family provided post-acute services choices?: Yes Durable Medical Equipment Planning Equipment at Home: Walker Inspector Material Disposition Referral: No Will continue to follow. For any questions or needs please contact: Grapple Crew Leader/Social Work Name/Phone number: Manuela Wahl [id number] LS AUDITOR * Arely Juares, [facility] - 02/24/2024 11:43 AM CST Images from the original note were not included. Clinical Pharmacist Discharge Medication Reconciliation Review Patient's home medication list and inpatient orders were reviewed and compared to the discharge order summary and the AVS placed by the provider. Patients MAR, progress notes, recent labs, micro, vitals, procedural results, etc. reviewed as necessary. READMISSION RISK SCORE is N/A at 11:43 AM 02/24/2024. Readmission risk score > 18 are considered high risk for readmission. ASSESSMENT Medication discrepancies identified or potential areas for Intervention: None PLAN No medication adjustments were made after physician's discharge medication reconciliation. MEDICATION RECONCILIATION REVIEW AVS was updated as necessary. Updated discharge medication list is below in objective section. 02/24/2024 at 11:43 AM Objective Current Discharge Medication List CONTINUE these medications which have NOT CHANGED Details Acetaminophen (TYLENOL ARTHRITIS PAIN PO) Take 500 mg by mouth Two times a week DIONICIO ASPIRIN REGIMEN PO Take 81 mg by mouth once daily Blood Glucose Monitoring Suppl (ONE TOUCH ULTRA 2) w/Device KIT Use 1 Each 2 times daily [facility] Purelax 17 GM/SCOOP powder TAKE 1 CAPFUL (17G) BY MOUTH DISSOLVED IN 4-8 OZ OF WATER OR JUICE ONCE DAILY docusate sodium (Colace) 100 MG capsule TAKE 1 CAPSULE BY MOUTH TWICE A DAY glipiZIDE (Glucotrol) 5 MG tablet Take 1 (one) tablet by mouth 2 times daily, before breakfast and supper DX: Type 2 diabetes mellitus with diabetic neuropathy, without long-term current use of insulin (HCC) E11.40 ketoconazole (Nizoral) 2 % shampoo APPLY TO AFFECTED AREA THREE TIMES A WEEK REASONS: DANDRUFF levothyroxine (Synthroid) 75 MCG tablet TAKE 1 TABLET BY MOUTH EVERY DAY BEFORE BREAKFAST loratadine (Claritin) 10 MG tablet Take 1 (one) tablet by mouth once daily melatonin 3 MG tablet Take 5 mg by mouth at bedtime memantine (Namenda) 5 MG tablet Take 1 (one) tablet by mouth 2 times daily menthol-zinc oxide (Calmoseptine) 0.44-20.625 % ointment Apply to affected area 2 times daily On both buttocks and at coccyx. ONE TOUCH ULTRASOFT LANCETS MISC Use 1 Each 2 times daily 33 lucy ONETOUCH ULTRA TEST STRIPS test strip Use 1 strip once daily (One touch mini test strips) Polyethylene Glycol 3350 1 packet mixed with 8 ounces of fluid Orally Once a day Vitamin D3 (25 MCG) 1000 UNIT capsule Take 1 (one) capsule by mouth once daily Reasons: Vitamin D Deficiency LS AUDITOR * Mariaelena Mariscal Graduate Nurse - 02/24/2024 1:24 AM CST Problem: Pain/Discomfort Goal: Patient exhibits reduced pain/discomfort as evidenced by pain scores Outcome: Progressing Goal: Patient uses pharmacological and non-pharmacological pain management strategies. Outcome: Progressing Goal: Patient verbalizes acceptable level of pain relief and ability to engage in desired activity. Outcome: Progressing Problem: Fall Risk Goal: Fall risk and fall related injury risk are minimized (interventions related to the fall risk can be found in the flowsheet documentation) Outcome: Progressing LS AUDITOR documented in this encounter H&P Notes * Navdeep Nazario DO - 02/23/2024 7:50 PM CST Images from the original note were not included. Hospitalist History and Physical PASHA: [phone] Admission date: 02/23/2024 Reason for Admission: Failure to thrive, hypotension Assessment & Plan: Hypotension Failure to thrive Deconditioned state, debility -secondary to decreased p.o. intake especially over the last 2 days possibly from recent PNA -given 1 L LR bolus -start continuous IV fluids -PT/OT -will need close outpatient follow-up after discharge Hyponatremia, mild -continue IV fluids Normocytic anemia -no overt signs of bleeding, continue to trend hemoglobin Type 2 diabetes mellitus -SSI Hypothyroidism-continue levothyroxine Cognitive impairment-continue memantine VTE prophylaxis: enoxaparin CODE STATUS: Full Daughter is POA Surrogate decision-maker: History of present illness: Patient is a 88 year old male, has a past medical history of Benign hypertension with chronic kidney disease (02/05/2016), Chronic renal failure, Dementia (HCC), Dermatitis, DM (diabetes mellitus) (HCC), HTN (hypertension), rheumatic fever, Hypothyroid, Seasonal allergies, and Trigger finger.. Presents with concerns of failure to thrive. He is present with daughter as well as niece at bedside whosupports with history. One week ago he was seen at outside hospital ER and was found to have ???a touch of pneumonia?? per daughter so he was given a prescription and completed a 5 day course of antibiotic in the outpatient setting. Patient was not admitted. During the 1st 2 days he had been feeling at his normal state but he gradually became more weak. Daughter states that over the last 2 days he has hardly kept up with his p.o. intake and today drank at most 4 oz of liquids just enough to swallow his pills. He had a regular follow- up visit today with his PCP. Systolic blood pressure measured in the 70s so he was prompted to seek ER evaluation. Patient presents here hypotensive and lethargic. He does awaken and answers questions after verbal stimuli. Laboratory studies with sodium of 132, lactic acid of 2.1, WBC of 9.3 with no signs of infiltrates or consolidations on chest x-ray. Patient was given 1 L LR bolus with improvement. Patient to be admitted for failure to thrive, hypotension in the setting of recent treatment for pneumonia. Patient/family denies symptoms of fevers, chills, shortness a breath, chest pain, nausea, vomiting or abdominal pain. He did have 1 episode of loose stools earlier today. Patient does have a history of urinary incontinence and wears depends. Patient denies headache, visual changes, neck pain or stiffness, dysphagia, nausea, vomiting, abdominal pain, chest pain, shortness of breath, cough, wheezing, fever, chills, night sweats, numbness or tingling in the arms or legs, syncope, rash, dysuria, frequency, recent travel, ill contacts exposure. Allergies Allergies Allergen Reactions Ibuprofen Other HE HAS CKD AND SHOULD NOT TAKE NSAID'S Septra Ds [Sulfamethoxazole W-Trimethoprim] Rash Medication List: Prior to Admission medications Medication Sig Start Date End Date Taking? Authorizing Provider Acetaminophen (TYLENOL ARTHRITIS PAIN PO) Take 500 mg by mouth Two times a week Peter Alvarenga MD DIONICIO ASPIRIN REGIMEN PO Take 81 mg by mouth once daily Peter Alvarenga MD Blood Glucose Monitoring Suppl (ONE Midatech ULTRA 2) w/Device KIT Use 1 Each 2 times daily Peter Alvarenga MD [facility] Purelax 17 GM/SCOOP powder TAKE 1 CAPFUL (17G) BY MOUTH DISSOLVED IN 4-8 OZ OF WATER OR JUICE ONCE DAILY 05/21/23 Chris Aden MD docusate sodium (Colace) 100 MG capsule TAKE 1 CAPSULE BY MOUTH TWICE A DAY 03/31/23 Chris Aden MD glipiZIDE (Glucotrol) 5 MG tablet Take 1 (one) tablet by mouth 2 times daily, before breakfast and supper DX: Type 2 diabetes mellitus with diabetic neuropathy, without long-term current use of insulin (HCC) E11.40 01/10/24 Chris Aden MD ketoconazole (Nizoral) 2 % shampoo APPLY TO AFFECTED AREA THREE TIMES A WEEK REASONS: DANDRUFF 05/12/23 Chris Aden MD levothyroxine (Synthroid) 75 MCG tablet TAKE 1 TABLET BY MOUTH EVERY DAY BEFORE BREAKFAST 02/22/24 Chris Aden MD loratadine (Claritin) 10 MG tablet Take 1 (one) tablet by mouth once daily 09/03/23 Evelin Blanco APRN-CNP melatonin 3 MG tablet Take 5 mg by mouth at bedtime Peter Alvarenga MD memantine (Namenda) 5 MG tablet Take 1 (one) tablet by mouth 2 times daily 01/03/24 Chris Aden MD menthol-zinc oxide (Calmoseptine) 0.44-20.625 % ointment Apply to affected area 2 times daily On both buttocks and at coccyx. 10/13/23 Evelin Blanco, ARTIST MANNEQUIN COLORING-SADDLE TREE STITCHER ONE TOUCH ULTRASOFT LANCETS MISC Use 1 Each 2 times daily 33 lucy ProviderPeter MD ONETOUCH ULTRA TEST STRIPS test strip Use 1 strip once daily (One touch mini test strips) Patient taking differently: Use 1 (one) strip 2 times daily (One touch mini test strips) 05/03/18 Rosana Solo MD Polyethylene Glycol 3350 1 packet mixed with 8 ounces of fluid Orally Once a day Provider, MD Peter Vitamin D3 (25 MCG) 1000 UNIT capsule Take 1 (one) capsule by mouth once daily Reasons: Vitamin D Deficiency 06/01/23 Chris Aden MD Past Medical History Past Medical History: Diagnosis Date Benign hypertension with chronic kidney disease 02/05/2016 BP controlled off rx. resolved Chronic renal failure Dementia (HCC) Dermatitis DM (diabetes mellitus) (HCC) HTN (hypertension) Hx of rheumatic fever Hypothyroid Seasonal allergies Trigger finger Past Surgical History: Procedure Laterality Date NEGATIVE SURGICAL HISTORY Social History Social History Socioeconomic History Marital status: Legally Tobacco Use Smoking status: Never Passive exposure: Current Smokeless tobacco: Former Types: Chew Quit date: 01/02/2021 Vaping Use Vaping status: Never Used Substance and Sexual Activity Alcohol use: No Drug use: No Sexual activity: Not Currently Family History Family History Family history unknown: Yes Review of Systems: A 14 point review of systems was taken and pertinent positive as per HPI. Physical Exam: Patient Vitals for the past 6 hrs: Temp Pulse Resp BP BP Method 02/23/24 1915 -- 73 -- 103/59 -- 02/23/24 1845 -- 73 17 106/65 -- 02/23/24 1701 -- 86 15 111/67 -- 02/23/24 1630 -- 93 18 115/76 -- 02/23/24 1544 -- 105 19 -- -- 02/23/24 1531 -- (!) 111 10 109/60 -- 02/23/24 1528 -- 107 14 100/68 -- 02/23/24 1456 -- (!) 112 -- 92/67 -- 02/23/24 1450 97.7 ??F (36.5 ??C) (!) 114 -- 95/62 Automatic General: No acute distress, speaking in full sentences, no use of accessory muscles, lethargic, appears weak, easily drifts back to sleep HEENT: Pupils equal and reactive to light and accommodation, oropharynx is clear Neck: Supple, no lymphadenopathy, no JVD Lungs: Clear to auscultation bilaterally Cardiovascular: Regular rate and rhythm with normal S1 and S2 Abdomen: Soft, nontender, nondistended, normoactive bowel sounds Extremities: No cyanosis clubbing or edema. R arm in cast Neuro: Nonfocal, A&O x3 Psych: Normal affect Intake/Output last 3 shifts: No intake/output data recorded. Labs: Recent Labs Lab Units 02/23/24 1610 SODIUM mmol/L 132* POTASSIUM mmol/L 4.7 CHLORIDE mmol/L 99 CO2 mmol/L 21* BUN mg/dL 18 CREATININE mg/dL 1.19 GLUCOSE mg/dL 178* CALCIUM mg/dL 8.9 MAGNESIUM mg/dL 2.0 Recent Labs Lab Units 02/23/24 1651 WBC x10E9/L 9.3 RBC x10E12/L 3.49* HGB g/dL 11.2* HCT % 33.2* MCV fL 95.1 MCH pg 32.1 MCHC g/dL 33.7 MPV fL 9.3 No results for input(s): CK, CKTOTAL, CKMB, CKMBUL, CKMBNGML, TROPONIN, TROPONINI, TROPONINT in the last 168 hours. No results for input(s): CHOLESTEROL, TRIGLYCERIDE, HDL, LDL, NONHDL in the last 168 hours. No results for input(s): HGBA1C, A1C, KGJICHPLM2E, EAG in the last 168 hours. Recent Labs Lab Units 02/23/24 1610 AST U/L 16 ALT U/L 15 No results for input(s): APT, INR, PTT in the last 168 hours. No results for input(s): FIO2, PH, PCO2, BE, HCO3, PO2, O2SAT in the last 168 hours. Recent Labs Lab Units 02/23/24 1610 LACTICACID mmol/L 2.1* Radiology Reports: XR CHEST 1VW PORTABLE Result Date: 02/23/2024 IMPRESSION: No acute airspace infiltrate. > Interpreting Provider: Jacinda Peng MD on 02/23/2024 5:06 PM Active Problems: Patient Active Problem List Diagnosis Date Noted Adult failure to thrive 02/23/2024 Priority: Not Prioritized Volume depletion 02/23/2024 Priority: Not Prioritized Hypotension, unspecified hypotension type 02/23/2024 Priority: Not Prioritized Abnormal gait 02/09/2024 Priority: Not Prioritized Fall 02/09/2024 Priority: Not Prioritized Type 2 diabetes mellitus with hyperglycemia, without long-term current use of insulin (HCC) 02/09/2024 Priority: Not Prioritized Acute cystitis without hematuria 02/09/2024 Priority: Not Prioritized Essential hypertension 12/02/2023 Priority: Not Prioritized Hypertension associated with diabetes (HCC) 12/02/2023 Priority: Not Prioritized Type 2 diabetes mellitus with hyperlipidemia (HCC) 12/02/2023 Priority: Not Prioritized Screening, lipid 06/01/2023 Priority: Not Prioritized Traumatic cephalohematoma 05/26/2022 Priority: Not Prioritized Fall 05/26/2022 Priority: Not Prioritized Vitamin D deficiency 05/26/2022 Priority: Not Prioritized Slow transit constipation 05/26/2022 Priority: Not Prioritized Routine general medical examination at a health care facility 01/26/2022 Priority: Not Prioritized Stage 3b chronic kidney disease (HCC) 01/26/2022 Priority: Not Prioritized Skin-picking disorder 07/23/2016 Priority: Not Prioritized encouraged to stop picking. I have some concern a few of his scabs may be SCCs or AKs, but reprots insurance would not cover derm eval Type 2 diabetes mellitus with stage 3 chronic kidney disease (HCC) 02/05/2016 Priority: Not Prioritized Component Latest Ref Rng & Units 03/04/2020 08/30/2019 08/29/2018 eGFR by MDRD mL/min/1.73m2 47 40 45 08/30/19 Rosana Solo MD Family Medicine 02/28/19 Rosana Solo MD Family Medicine Hypothyroidism, adult 02/05/2016 Priority: Not Prioritized Alzheimer's dementia without behavioral disturbance (HCC) 02/05/2016 Priority: Not Prioritized 11/07/19 Rosana Solo MD Family Medicine 02/28/19 Rosana Solo MD Family Medicine Seasonal allergic rhinitis 02/05/2016 Priority: Not Prioritized Osteoarthrosis 12/14/2012 Priority: Not Prioritized Wrist arthritis 09/09/2012 Priority: Not Prioritized Type 2 diabetes mellitus with diabetic neuropathy ([facility]) 09/07/2012 Priority: Not Prioritized 08/30/19 Rosana Solo MD Family Medicine 02/28/19 Rosana Solo MD Family Medicine Wrist pain, left 09/07/2012 Priority: Not Prioritized Depression 03/04/2012 Priority: Not Prioritized Weak 03/04/2012 Priority: Not Prioritized Weight loss, abnormal 03/04/2012 Priority: Not Prioritized Type 2 diabetes mellitus with diabetic retinopathy (HCC) 01/17/2021 [facility] on 09/03/2020 Description: DM. File category: Document. Associated with: Note written by Document, Scanned from Ext.Scan Order on 09/03/2020. Navdeep Nazario DO 02/23/2024 7:50 PM Voice recognition software was used in the stenciler of this documentation. LS AUDITOR documented in this encounter ED Notes * Britton Llamas DO - 02/23/2024 3:56 PM CST [facility] [id number] [place] [facility] History Chief Complaint Patient presents with Hypotension Pt brought to the ED from his PCP office for hypotension. Pt was being seen for a follow up appointment. Pt denies chest pain or shortness of breath but reports abdominal pain onset last evening. Pt recently treated for pneumonia. 88M presents to ED from PCP office for hypotension. Patient with a history of dementia, history according to daughters at bedside, recently treated for pneumonia at [facility] in [facility], completed a course of antibiotics, over last few days he has had increasing weakness, lethargy, poor p.o. intake. He is not his active self. He does not appear short of breath anymore, he has no cough. Past Medical History: Diagnosis Date Benign hypertension with chronic kidney disease 02/05/2016 BP controlled off rx. resolved Chronic renal failure Dementia (HCC) Dermatitis DM (diabetes mellitus) (HCC) HTN (hypertension) Hx of rheumatic fever Hypothyroid Seasonal allergies Trigger finger Past Surgical History: Procedure Laterality Date NEGATIVE SURGICAL HISTORY Review of Systems Refer to HPI for pertinent positive and negative ROS components, unless otherwise noted here. ROS Physical Exam BP 109/60 Pulse 105 Temp 97.7 ??F (36.5 ??C) (Oral) Resp 19 Ht 1.753 m (5' 9) Wt 65.8 kg(145 lb) SpO2 93% BMI 21.41 kg/m?? Physical Exam Vitals and nursing note reviewed. Constitutional: General: He is awake. He is not in acute distress. Comments: Fatigued appearing older male, resting comfortably in the stretcher, answers basic questions. Following commands HENT: Head: Normocephalic and atraumatic. Mouth/Throat: Mouth: Mucous membranes are dry. Eyes: Extraocular Movements: Extraocular movements intact. Conjunctiva/sclera: Conjunctivae normal. Neck: Trachea: No tracheal deviation. Cardiovascular: Rate and Rhythm: Normal rate and regular rhythm. Pulmonary: Effort: Pulmonary effort is normal. No respiratory distress. Breath sounds: Normal air entry. No wheezing, rhonchi or rales. Abdominal: General: There is no distension. Tenderness: There is no abdominal tenderness. There is no guarding or rebound. Musculoskeletal: Cervical back: No rigidity. Right lower leg: No edema. Left lower leg: No edema. Skin: General: Skin is warm and dry. Neurological: Mental Status: He is alert. Mental status is at baseline. He is confused. Comments: Hold all 4 extremities antigravity No facial droop Overall weak appearing. Medications Current Outpatient Medications Medication Sig Dispense Refill [...] Reasons: Vitamin D Deficiency 30 capsule 0 Procedures Procedures No results found for this visit on 02/23/24. No orders to display Assessment / Plan / MDM # generalized weakness, volume depletion, failure to thrive Plan for IV fluid hydration Labs negative for leukocytosis Lactic acid slightly elevated in the setting of dehydration Plan for observation Pertinent aspects of patient care were endorsed to Dixon Oliva Dr Datar at time of admission order. Other ddx include, and found to be less likely: sepsis, pna, others Prior records & Care Everywhere if available were reviewed . Laboratory and imaging data independently reviewed by me (refer to ED course) Radiology reads reviewed. ECG: ECG/rhythm strip ordered and interpreted by me shows rhythm: sinus tach, rate: 106, RBBB, nOSTE ED Course: Clinical Impressions as of 02/23/24 1902 Hypotension, unspecified hypotension type Adult failure to thrive Volume depletion Of note, this document was completed using [employer] dictation software. Please excuse any typographical errors. Orders Placed This Encounter CBC W AUTO DIFFERENTIAL COMPREHENSIVE METABOLIC PANEL LACTIC ACID BLOOD REFLEX TO REPEAT MAGNESIUM BLOOD LIPASE BLOOD TROPONIN-I HIGH SENSITIVE BASELINE + 1HR URINALYSIS REFLEX MICROSCOPIC REFLEX CULTURE EKG 12-LEAD LS AUDITOR * Mellisa Metz RN - 02/23/2024 3:10 PM CST Bed: 20 Expected date: Expected time: Means of arrival: Comments: WR per Hortencia and Shreyas LS AUDITOR documented in this encounter Miscellaneous Notes * Coding Query - Osiel Lopez MD - 02/26/2024 4:21 PM CST DOCUMENTATION CLARIFICATION REQUEST TO: Dr Lopez FROM: Ashli Fleming RN-BSN, Clinical It Project Lead, Second Level Reviewer [email or web address] Based on documentation of debility, please further specify if the patient is being treated for Choices may include but are not limited to: - Age related debility, POA - Frailty, POA - Other explanation of clinical findings (please specify) - Unable to determine (no explanation for clinical findings) The medical record reflects the following clinical evidence: Clinical Indicators: Patient presented with FTT and hypotension 02/22 PCP office note- frail appearing H&P- Deconditioned state, debility ACP- Recent functional status: Decline in function PT assessment- Patient ambulates at home with walker. Decreased independence with ambulation/transfers, decreased safety with functional mobility. Nursing doc flowsheet- requires assistance with mobility and hygiene Risk Factor(s): Octogenarian, decline in function, FTT, elbow fracture Treatment: PT/OT consults, wheelchair use ELECTION WATCHER, nursing assistance with ADL, HHC at discharge Please document your clinical opinion in the progress notes and discharge summary including the definitive and/or presumptive diagnosis, (suspected or probable), related to the above clinical findings. Please include clinical findings supporting your diagnosis. Select Edit, then F2 to respond. Click sign to file the note. Unable to determine LS AUDITOR * ACP (Advance Care Planning) - Osiel Lopez MD - 02/25/2024 10:33 AM SKILLS AUDITOR Advance Care Planning Goals of Care A voluntary discussion was had with the guardian regarding goals of care. - Recent functional status: Decline in function - Patient's goals of care include aggressive, usual medical care Current active code status Full Code - The patient would be OK with admission to the hospital for care - The patient would be OK with admission to the ICU for care Advance Care Planning Details A voluntary discussion was had with the guardian regarding advance care planning. - Patient agrees to the following: being in the hospital and being in the ICU - Total [id number] time spent on advance care planning discussion: 16 minutes LS AUDITOR documented in this encounter Plan of Treatment Upcoming Encounters Date Type Department Care Team (Late st Contact Info) Description 04/07/2024 10:00 AM SKILLS AUDITOR Office Visit [facility] [id number] [place] [address] [address] [place] [address] Evelin Blanco APRN-SADDLE TREE STITCHER [id number] [facility] [address] [place] [address] 06/06/2024 2:00 PM CDT Office Visit [facility] [id number] [place] [address] [address] [place] [address] Chris Aden MD [id number] [place] [address] [address] [place] [address] Scheduled Orders Name Type Priority Associated Diagnoses Orde r Schedule LACTOFERRIN FECAL QUALITATIVE Lab Routine ONCE for 1 Occur rences starting 02/25/2024 until 02/25/2024 Scheduled Referrals Name Type Priority Associated Diagnoses Orde r Schedule Referral to Home Health Care Outpatient Referral Routine Alzheimer's dementia without behavioral disturbance (HCC) Ordered: 02/26/2024 documented as of this encounter Goals Goal Patient Goal Type Associated Problems Recent Progress Patient-Stated? Author Blood Pressure < 140/90 Blood Pressure 96/68(2023 2:34 PM SKILLS AUDITOR) Rere Vargas Note: Caring for Your High [...] Where can I go for more information? [place] [employer] National Center: http://www.americanheart.org 1. In the top header, click ? Conditions? . 2. In the top header, click ? high blood pressure.? 3. For a printable blood pressure tracker, scroll toward the bottom of the page to Related Tools, and click ? HBP Trackers.? 8-499-FXS-USA-1 or ( ) National Heart, Lung and Blood [place]: http://www.nhlbi.nih.gov/health/infoctr/index.htm Blood Pressure < 140/90 Blood Pressure 96/68(2023 2:34 PM SKILLS AUDITOR) Rere Vargas Note: Caring for Your High [...] Where can I go for more information? [place] [employer] National Center: http://www.americanheart.org 1. In the top header, click ? Conditions? . 2. In the top header, click ? high blood pressure.? 3. For a printable blood pressure tracker, scroll toward the bottom of the page to Related Tools, and click ? HBP Trackers.? 6-229-SGJ-USA-1 or ( ) National Heart, Lung and Blood [place]: http://www.nhlbi.nih.gov/health/infoctr/index.htm Blood Pressure < 140/90 Blood Pressure 96/68(2023 2:34 PM SKILLS AUDITOR) Mindy Parks Note: Caring for Your High Blood [...] Where can I go for more information? [place] [employer] National Center: http://www.americanheart.org 1. In the top header, click ? Conditions? . 2. In the top header, click ? high blood pressure.? 3. For a printable blood pressure tracker, scroll toward the bottom of the page to Related Tools, and click ? HBP Trackers.? 9-750-LSD-USA-1 or ( ) National Heart, Lung and Blood [place]: http://www.nhlbi.nih.gov/health/infoctr/index.htm Exercise 5X per week (30 min per time) Exercise Rere Vargas Note: The [place] [employer] recommends all adults [...] how to manage your diabetes: ? ? [place] Diabetes Association: www.diabetes.org 3-716-LAYYZDAK ( ) ? ? [place] Diabetes Association-Support group line: www.professional.diabetes.org ? ? [place] Heart Association: www.heart.org or 3-414-QPR-[place]-1 ( ) [employer] MyPlate: www.Fringe Corpmyplate.gov Have labs drawn Lifestyle No Rere Kaufman [...] our office. documented as of this encounter Procedures Procedure Name Priority Date/Time Associated Diagnosis Comments GLUCOSE - POINT OF CARE Routine 02/25/2024 6:04 PM SKILLS AUDITOR SARS-COV-2 (COVID-19) RAPID Routine 02/25/2024 3:12 PM SKILLS AUDITOR Wrist arthritis GLUCOSE - POINT OF CARE Routine 02/25/2024 12:05 PM SKILLS AUDITOR BASIC METABOLIC PANEL (CALCIUM TOTAL) AM Draw 02/25/2024 4:14 AM SKILLS AUDITOR Weight loss, abnormal CARDIAC EKG ORDER 02/24/2024 6:3 5 PM SKILLS AUDITOR GLUCOSE - POINT OF CARE Routine 02/24/2024 5:59 PM SKILLS AUDITOR URINALYSIS REFLEX MICROSCOPIC REFLEX CULTURE STAT 02/24/2024 5:43 AM SKILLS AUDITOR LACTIC ACID BLOOD REFLEX TO REPEAT Timed STAT 02/24/2024 5:38 AM SKILLS AUDITOR TSH REFLEX FREE T4 Routine 02/24/2024 5: 38 AM SKILLS AUDITOR Hypotension, unspecified hypotension type Adult failure to thrive Volume depletion CBC W/O DIFFERENTIAL Routine 02/24/2024 5:38 AM SKILLS AUDITOR Hypotension, unspecified hypotension type Adult failure to thrive Volume depletion BASIC METABOLIC PANEL (CALCIUM TOTAL) Routine 02/24/2024 5:38 AM SKILLS AUDITOR Hypotension, unspecified hypotension type Adult failure to thrive Volume depletion MAGNESIUM BLOOD Routine 02/24/2024 5:38 AM SKILLS AUDITOR Hypotension, unspecified hypotension type Adult failure to thrive Volume depletion TROPONIN-I HIGH SENSITIVE REFLEX 1HOUR Timed 02/23/2024 5:20 PM SKILLS AUDITOR XR CHEST 1VW PORTABLE STAT 02/23/2024 5:01 PM SKILLS AUDITOR Hypotension, unspecified hypotension type CBC W AUTO DIFFERENTIAL STAT 02/23/2024 4:51 PM SKILLS AUDITOR LACTIC ACID BLOOD REFLEX TO REPEAT STAT 02/23/2024 4:10 PM SKILLS AUDITOR TROPONIN-I HIGH SENSITIVE BASELINE + 1HR STAT 02/23/2024 4:10 PM SKILLS AUDITOR COMPREHENSIVE METABOLIC PANEL STAT 02/23/2024 4:10 PM SKILLS AUDITOR MAGNESIUM BLOOD STAT 02/23/2024 4:10 PM SKILLS AUDITOR LIPASE BLOOD STAT 02/23/2024 4:10 PM SKILLS AUDITOR EKG 12-LEAD STAT 02/23/2024 3:30 PM SKILLS AUDITOR Hypotension, unspecified hypotension type documented in this encounter Results * (ABNORMAL) GLUCOSE - POINT OF CARE (02/25/2024 6:04 PM SKILLS AUDITOR) Pathologist [facility] Glucose WB/POC 225(H) 70 - 99 mg/dL 02/25/2024 10:00 PM SKILLS AUDITOR [facility] Specimen Type Cap Fingerstick 2023 10:00 PM SKILLS AUDITOR [facility] Blood BLOOD SPECIMEN / Unknown 02/25/2024 6:04 PM SKILLS AUDITOR 02/25/2024 10:00 PM SKILLS AUDITOR Osiel Lopez MD LAB - POINT OF CARE ORDERABLES [facility] [address] [place] [address] * SARS-COV-2 (COVID-19) RAPID (02/25/2024 3:12 PM SKILLS AUDITOR) [facility] COVID-19 PCR Not detected Not detected 02/25/20 24 4:02 PM SKILLS AUDITOR [facility] Microbiology SPECIMEN FROM NASOPHARYNGEAL STRUCTURE / Unknown Collection / Unknown 02/25/2024 3:12 PM SKILLS AUDITOR 02/25/2024 3:27 PM SKILLS AUDITOR Narrative [facility] - 02/25/2024 4:02 PM SKILLS AUDITOR The Cepheid Xpert Xpress SARS-COV-2 has been [...] Lopez MD LAB - MICROBIOLOGY O RDERABLES Performing Organization Address [facility] Co de Phone Number [facility] [phone] [place] [id number] * (ABNORMAL) GLUCOSE - POINT OF CARE (02/25/2024 12:05 PM SKILLS AUDITOR) Glucose WB/POC 181(H) 70 - 99 mg/dL 02/25/2024 12:23 PM SKILLS AUDITOR [facility] Specimen Type Cap Fingerstick 2023 12:23 PM SKILLS AUDITOR [facility] Blood BLOOD SPECIMEN / Unknown 02/25/2024 12:05 PM SKILLS AUDITOR 02/25/2024 12:23 PM SKILLS AUDITOR Osiel Lopez MD LAB - POINT OF CARE ORDERABLES Performing Organization Address [facility] de Phone Number [facility] [address] [place] [address] * (ABNORMAL) BASIC METABOLIC PANEL (CALCIUM TOTAL) (02/25/2024 4:14 AM SKILLS AUDITOR) Glucose 192(H) 70 - 99 mg/dL 02/25/2024 6:02 AM SKILLS AUDITOR [facility] Sodium 132(L) 136 - 145 mmol/L 02/25/2024 6:02 AM SKILLS AUDITOR [facility] Potassium 4.2 3.5 - 5.1 mmol/L 02/25/2024 6:02 AM SKILLS AUDITOR [facility] Chloride 104 98 - 107 mmol/L 02/25/2024 6:02 AM SKILLS AUDITOR [facility] CO2 20(L) 22 - 29 mmol/L 02/25/2024 6:02 AM [facility] Calcium 8.3(L) 8.4 - 10.4 mg/dL 02/25/2024 6:02 AM [facility] Anion Gap 8 6 - 16 mmol/L 02/25/2024 6:02 AM [facility] BUN 12 7 - 26 mg/dL 02/25/2024 6:02 AM [facility] Creatinine 0.87 0.72 - 1.25 mg/dL 02/25/2024 6:02 AM [facility] eGFR by CKD-EPI 84(L) >=90 mL/min/1.7 3 m2 02/25/2024 6:02 AM [facility] Blood BLOOD SPECIMEN / Unknown Venipuncture / Unknown 02/25/2024 4:14 AM SKILLS AUDITOR 02/25/2024 5:43 AM SKILLS AUDITOR Osiel Lopez MD LAB - CHEMISTRY ORDE RABLIDA Performing Organization Address [facility] Co de Phone Number [facility] [phone] [place] [phone] * CARDIAC EKG ORDER (02/24/2024 6:35 PM SKILLS AUDITOR) Narrative 02/24/2024 6:35 PM SKILLS AUDITOR Ordered by an unspecified provider. Scanned Document CARDIAC SERVICES ORD ERABLES * (ABNORMAL) GLUCOSE - POINT OF CARE (02/24/2024 5:59 PM SKILLS AUDITOR) [facility] Glucose WB/POC 183(H) 70 - 99 mg/dL 02/24/2024 7:42 PM SKILLS AUDITOR [facility] Specimen Type Cap Fingerstick 2023 7:42 PM SKILLS AUDITOR [facility] Blood BLOOD SPECIMEN / Unknown 02/24/2024 5:59 PM SKILLS AUDITOR 02/24/2024 7:42 PM SKILLS AUDITOR Osiel Lopez MD LAB - POINT OF CARE ORDERABLES Performing Organization Address [facility] Co de Phone Number [facility] [address] [place] [address] * (ABNORMAL) URINALYSIS REFLEX MICROSCOPIC REFLEX CULTURE (02/24/2024 5:43 AM SKILLS AUDITOR) Color UA Yellow Yellow, Straw 02/24/2024 6:53 AM [facility] Clarity UA Clear Clear 02/24/2024 6:53 AM [facility] Glucose UA Normal Normal 02/24/2024 6:53 AM [facility] Bilirubin UA Negative Negative 02/24/2024 6:53 AM [facility] Ketone UA Negative Negative 02/24/2024 6:53 AM [facility] Specific [place] UA 1.023 1.005 - 1.030 02/24/2024 6:53 AM [facility] Blood UA Negative Negative 02/24/2024 6:53 AM [facility] pH UA 5.5 5.0 - 9.0 pH 02/24/2024 6:53 AM [facility] Protein UA Trace(A) Negative 02/24/2024 6:53 AM [facility] Urobilinogen UA Normal Normal mg/dL 024 6:53 AM [facility] Nitrite UA Negative Negative 02/24/2024 6:53 AM [facility] Leukocyte UA Negative Negative 02/24/2024 6:53 AM [facility] Urine URINE SPECIMEN OBTAINED BY CLEAN CATCH PROCEDURE / Unknown Collection / Unknown 02/24/2024 5:43 AM SKILLS AUDITOR 02/24/2024 6:44 AM SKILLS AUDITOR Narrative [facility] - 02/24/2024 6:53 AM SKILLS AUDITOR Britton Llamas DO LAB - URINALYSIS ORD ERABLES Performing Organization Address City/State/[facility] Co de Phone Number [facility] [address] [place] [address] * TSH REFLEX FREE T4 (02/24/2024 5:38 AM SKILLS AUDITOR) TSH 2.611 0.350 - 4.940 uIU/mL 02/24/2024 6:26 AM [facility] Blood BLOOD SPECIMEN / Unknown Venipuncture / Unknown 02/24/2024 5:38 AM SKILLS AUDITOR 02/24/2024 5:38 AM SKILLS AUDITOR Navdeep G Aravind DO LAB - CHEMISTRY OR DERABLES Performing Organization Address City/[facility]/ZIP Co de Phone Number [facility] [address] [place], [place] [phone] * MAGNESIUM BLOOD (02/24/2024 5:38 AM SKILLS AUDITOR) Pathologist [facility] Magnesium 1.8 1.6 - 2.6 mg/dL 02/24/2024 6:19 AM SKILLS AUDITOR [facility] Blood BLOOD SPECIMEN / Unknown Venipuncture / Unknown 02/24/2024 5:38 AM SKILLS AUDITOR 02/24/2024 5:38 AM SKILLS AUDITOR Navdeep G Aravind DO LAB - CHEMISTRY OR DERABLES Performing Organization Address [facility] Co de Phone Number [facility] [address] [place] [address] [phone] * (ABNORMAL) CBC W/O DIFFERENTIAL (02/24/2024 5:38 AM SKILLS AUDITOR) [facility] WBC 6.7 4.0 - 10.7 x10E9/L 02/24/2024 5:46 AM [facility] RBC Count 3.53(L) 4.30 - 5.80 x10E12/L 02/24/2024 5:46 AM [facility] Hemoglobin 11.0(L) 13.3 - 17.5 g/dL 02/24/2024 5:46 AM [facility] Hematocrit 33.7(L) 38.7 - 51.1 % 02/24/2024 5:46 AM [facility] MCV 95.5 80.0 - 98.0 fL 02/24/2024 5:46 AM [facility] MCH 31.2 26.7 - 33.6 pg 02/24/2024 5:46 AM [facility] MCHC 32.6 31.7 - 36.3 g/dL 02/24/2024 5:46 AM [facility] RDW-CV 13.5 11.3 - 14.8 % 02/24/2024 5:46 AM [facility] Platelet Count 320 150 - 420 x10E9/L 02/24/2024 5:46 AM [facility] MPV 9.3 7.8 - 11.4 fL 02/24/2024 5:46 AM [facility] Blood BLOOD SPECIMEN / Unknown Venipuncture / Unknown 02/24/2024 5:38 AM SKILLS AUDITOR 02/24/2024 5:38 AM SKILLS AUDITOR Navdeep Nazario DO LAB - HEMATOLOGY O RDERABLES Performing Organization Address City/[facility]/ZIP Co de Phone Number [facility] [address] [place] [phone] * (ABNORMAL) BASIC METABOLIC PANEL (CALCIUM TOTAL) (02/24/2024 5:38 AM SKILLS AUDITOR) [facility] Glucose 107(H) 70 - 99 mg/dL 02/24/2024 6:19 AM [facility] Sodium 133(L) 136 - 145 mmol/L 02/24/2024 6:19 AM [facility] Potassium 4.1 3.5 - 5.1 mmol/L 02/24/2024 6:19 AM [facility] Chloride 103 98 - 107 mmol/L 02/24/2024 6:19 AM [facility] CO2 24 22 - 29 mmol/L 02/24/2024 6:19 AM [facility] Calcium 8.7 8.4 - 10.4 mg/dL 02/24/2024 6:19 AM [facility] Anion Gap 6 6 - 16 mmol/L 02/24/2024 6:19 AM [facility] BUN 15 7 - 26 mg/dL 02/24/2024 6:19 AM [facility] Creatinine 0.87 0.72 - 1.25 mg/dL 02/24/2024 6:19 AM [facility] eGFR by CKD-EPI 84(L) >=90 mL/min/1.7 3 m2 02/24/2024 6:19 AM [facility] Blood BLOOD SPECIMEN / Unknown Venipuncture / Unknown 02/24/2024 5:38 AM SKILLS AUDITOR 02/24/2024 5:38 AM SKILLS AUDITOR Navdeep Nazario DO LAB - CHEMISTRY OR DERABLES Performing Organization Address City/[facility] Co de Phone Number [facility] [phone] [place] [phone] * LACTIC ACID BLOOD REFLEX TO REPEAT (02/24/2024 5:38 AM SKILLS AUDITOR) Lactic Acid 1.0 <=2.0 mmol/L 02/24/2024 6:22 AM SKILLS AUDITOR [facility] Blood BLOOD SPECIMEN / Unknown Venipuncture / Unknown 02/24/2024 5:38 AM SKILLS AUDITOR 02/24/2024 5:39 AM SKILLS AUDITOR [facility] LAB - CHEMISTRY ORDE TIRSO Performing Organization Address [facility] de Phone Number [facility] [address] [place] [phone] * TROPONIN-I HIGH SENSITIVE REFLEX 1HOUR (02/23/2024 5:20 PM SKILLS AUDITOR) Troponin I High Sensitive <3 <=35 ng/L 02/23/2024 6:14 PM SKILLS AUDITOR [facility] Delta Troponin I HS 02/23/2024 6:14 PM SKILLS AUDITOR [facility] Comment:Result exceeds linea rity range. A delta value is unable to be calculated. Blood BLOOD SPECIMEN / Unknown Venipuncture / Unknown 02/23/2024 5:20 PM SKILLS AUDITOR 02/23/2024 5:47 PM SKILLS AUDITOR Britton [facility] LAB - CHEMISTRY ORDNatasha CHAHAL Performing Organization Address [facility] de Phone Number [facility] [address] [place] [address] * XR CHEST 1VW PORTABLE (02/23/2024 5:01 PM SKILLS AUDITOR) Anatomical Region Laterality Modality Chest Computed Radiogr aphy 02/23/2024 5:05 PM SKILLS AUDITOR Impressions 02/23/2024 5:06 PM SKILLS AUDITOR IMPRESSION: No acute airspace infiltrate. > Interpreting Provider: Jacinda Peng MD on 02/23/2024 5:06 PM Narrative 02/23/2024 5:06 PM SKILLS AUDITOR PROCEDURE: ??XR CHEST 1VW PORTABLE DATE/TIME OF [...] CBC W AUTO DIFFERENTIAL (02/23/2024 4:51 PM SKILLS AUDITOR) WBC 9.3 4.0 - 10.7 x10E9/L 02/23/2024 5:05 PM SKILLS AUDITOR [facility] RBC Count 3.49(L) 4.30 - 5.80 x10E12/L 02/23/2024 5:05 PM SKILLS AUDITOR [facility] Hemoglobin 11.2(L) 13.3 - 17.5 g/dL 02/23/2024 5:05 PM SKILLS AUDITOR [facility] Hematocrit 33.2(L) 38.7 - 51.1 % 02/23/2024 5:05 PM SKILLS AUDITOR [facility] MCV 95.1 80.0 - 98.0 fL 02/23/2024 5:05 PM SKILLS AUDITOR [facility] MCH 32.1 26.7 - 33.6 pg 02/23/2024 5:05 PM SKILLS AUDITOR [facility] MCHC 33.7 31.7 - 36.3 g/dL 02/23/2024 5:05 PM SKILLS AUDITOR [facility] RDW-CV 13.6 11.3 - 14.8 % 02/23/2024 5:05 PM [facility] Platelet Count 284 150 - 420 x10E9/L 02/23/2024 5:05 PM [facility] MPV 9.3 7.8 - 11.4 fL 02/23/2024 5:05 PM [facility] Neutrophil % 80.0(H) 41.0 - 74.0 % 02/23/2024 5:05 PM [facility] Lymphocyte % 9.5(L) 17.0 - 47.0 % 02/23/2024 5:05 PM [facility] Monocyte % 9.5 3.0 - 11.0 % 02/23/2024 5:05 PM [facility] Eosinophil % 0.1 0.0 - 7.0 % 02/23/2024 5:05 PM [facility] Basophil % 0.5 0.0 - 1.6 % 02/23/2024 5:05 PM [facility] Immature Granulocytes % 0.4 0.0 - 1.0 % 02/23/2024 5:05 PM [facility] Neutrophil Absolute 7.45 1.60 - 7.50 x10E9/L 02/23/2024 5:05 PM [facility] Lymphocyte Absolute 0.88(L) 1.00 - 4.40 x10E9/L 02/23/2024 5:05 PM [facility] Monocyte Absolute 0.88 0.15 - 1.00 x10E9/L 02/23/2024 5:05 PM [facility] Eosinophil Absolute 0.01 0.00 - 0.60 x10E9/L 02/23/2024 5:05 PM [facility] Basophil Absolute 0.05 0.00 - 0.13 x10E9/L 02/23/2024 5:05 PM [facility] Blood BLOOD SPECIMEN / Unknown Venipuncture / Unknown 02/23/2024 4:51 PM SKILLS AUDITOR 02/23/2024 4:59 PM [facility] Britton Llamas DO LAB - HEMATOLOGY ORD ERABLES [facility] [address] [place] [address] * TROPONIN-I HIGH SENSITIVE BASELINE + 1HR (02/23/2024 4:10 PM SKILLS AUDITOR) [facility] Troponin I High Sensitive 4 <=35 ng/L 02/23/2024 5:03 PM SKILLS AUDITOR [facility] Blood BLOOD SPECIMEN / Unknown Venipuncture / Unknown 02/23/2024 4:10 PM SKILLS AUDITOR 02/23/2024 4:33 PM SKILLS AUDITOR Britton [employer] LAB - CHEMISTRY ORDE [employer] Performing Organization Address City/[facility]/ZIP Co de Phone Number [facility] [phone] [place] [phone] * LIPASE BLOOD (02/23/2024 4:10 PM SKILLS AUDITOR) [facility] Lipase <4 <60 U/L 02/23/2024 5:01 PM SKILLS AUDITOR [facility] Blood BLOOD SPECIMEN / Unknown Venipuncture / Unknown 02/23/2024 4:10 PM SKILLS AUDITOR 02/23/2024 4:33 PM SKILLS AUDITOR Britton [employer] LAB - CHEMISTRY [employer] Performing Organization Address [facility] Co de Phone Number [facility] [address] [place] [phone] * MAGNESIUM BLOOD (02/23/2024 4:10 PM SKILLS AUDITOR) [facility] Magnesium 2.0 1.6 - 2.6 mg/dL 02/23/2024 4:59 PM SKILLS AUDITOR [facility] Blood BLOOD SPECIMEN / Unknown Venipuncture / Unknown 02/23/2024 4:10 PM SKILLS AUDITOR 02/23/2024 4:33 PM SKILLS AUDITOR [employer] LAB - CHEMISTRY [employer] Performing Organization Address [facility] Co de Phone Number [facility] [phone] [place] [phone] * (ABNORMAL) LACTIC ACID BLOOD REFLEX TO REPEAT (02/23/2024 4:10 PM SKILLS AUDITOR) [facility] Lactic Acid 2.1(H) <=2.0 mmol/L 02/23/2024 5:02 PM [facility] Blood BLOOD SPECIMEN / Unknown Venipuncture / Unknown 02/23/2024 4:10 PM SKILLS AUDITOR 02/23/2024 4:33 PM SKILLS AUDITOR Britton Llamas DO LAB - CHEMISTRY MELYSSA CHAHAL [facility] [address] [place] [address] * (ABNORMAL) COMPREHENSIVE METABOLIC PANEL (02/23/2024 4:10 PM SKILLS AUDITOR) [facility] Glucose 178(H) 70 - 99 mg/dL 02/23/2024 4:59 PM [facility] Sodium 132(L) 136 - 145 mmol/L 02/23/2024 4:59 PM [facility] Potassium 4.7 3.5 - 5.1 mmol/L 02/23/2024 4:59 PM [facility] Chloride 99 98 - 107 mmol/L 02/23/2024 4:59 PM [facility] CO2 21(L) 22 - 29 mmol/L 02/23/2024 4:59 PM [facility] Calcium 8.9 8.4 - 10.4 mg/dL 02/23/2024 4:59 PM [facility] Anion Gap 12 6 - 16 mmol/L 02/23/2024 4:59 PM [facility] BUN 18 7 - 26 mg/dL 02/23/2024 4:59 PM [facility] Creatinine 1.19 0.72 - 1.25 mg/dL 02/23/2024 4:59 PM [facility] Alkaline Phosphatase 62 40 - 150 U/L 02/23/2024 4:59 PM [facility] ALT 15 0 - 55 U/L 02/23/2024 4:59 PM [facility] AST 16 5 - 34 U/L 02/23/2024 4:59 PM [facility] Protein Total 6.7 6.4 - 8.3 gm/dL 02/23/2024 4:59 PM [facility] Albumin 2.6(L) 3.4 - 5.0 gm/dL 02/23/2024 4:59 PM SKILLS AUDITOR [facility] Bilirubin Total 0.4 0.2 - 1.2 mg/dL 02/23/2024 4:59 PM SKILLS AUDITOR [facility] eGFR by CKD-EPI 59(L) >=90 mL/min/1.7 3 m2 02/23/2024 4:59 PM SKILLS AUDITOR [facility] Blood BLOOD SPECIMEN / Unknown Venipuncture / Unknown 02/23/2024 4:10 PM SKILLS AUDITOR 02/23/2024 4:33 PM SKILLS AUDITOR Britton Llamas DO LAB - CHEMISTRY MELYSSA CHAHAL [facility] [address] [place] [address] * EKG 12-LEAD (02/23/2024 3:30 PM SKILLS AUDITOR) Ventricular Rate 106 BPM [facility] Atrial Rate 106 BPM [facility] P-R Interval 172 ms [facility] QRS Duration ms 128 ms [facility] Q-T Interval ms 364 ms [facility] QTC Calculation (Bezet) 483 ms [facility] Calculated P [place] 36 degrees [facility] Calculated R [place] 76 degrees [facility] Calculated T [place] 21 degrees [facility] Interpretation EKG Sinus tachycardia Right bundle branch block Abnormal ECG No previous ECGs available Confirmed by ÁNGEL HUNTLEY MD ([id number]) on 02/24/2024 9:02:56 AM [facility] 02/23/2024 3:30 PM SKILLS AUDITOR 02/24/2024 9:02 AM SKILLS AUDITOR Rachna Allan ARTIST [employer] ECG ORDERA BLES [facility] documented in this encounter Visit Diagnoses Diagnosis Weight loss, abnormal- Primary Loss of weight Hypotension, unspecified hypotension type Adult failure to thrive Volume depletion Wrist arthritis Unspecified arthropathy, 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) Alzheimer's disease Adult failure to thrive Volume depletion Hypotension, unspecified hypotension type documented in this encounter Administered Medications Inactive Administered Medications - up to 3 most recent administrations Medication Order MAR Action Action Date Dose Rate Site 0.9% NaCl infusion at 100 mL/hr, Intravenous, CONTINUOUS, Starting on Wed02/23/24 at 2115, Until Wed02/24/24 at 2114 $ New Bag/Syringe 02/24/2024 9:21 AM SKILLS AUDITOR 100 mL/hr $ New Bag/Syringe 02/23/2024 10:27 PM SKILLS AUDITOR 100 m L/hr 0.9% NaCl injection 1-10 mL 1-10 mL, Intracatheter, PRN, Other, peripheral line flush, Starting on Wed02/24/24 at 0756, Until 02/26/24 at 1722, Flush peripheral IV catheter with 1-10 mL of normal saline before and after medications and prn to clear blood from the line or to verify patency. 0.9% NaCl injection 1-10 mL 1-10 mL, Intracatheter, PRN, Other, peripheral line flush, Starting on Wed02/23/24 at 2107, Until 02/26/24 at 1722, Flush peripheral IV catheter with 1-10 mL of normal saline before and after medications and prn to clear blood from the line or to verify patency. 0.9% NaCl injection 3 mL 3 mL, Intracatheter, EVERY 8 HOURS, First dose on Wed02/24/24 at 0800, Until Discontinued, Flush peripheral IV catheter with 3 mL of normal saline every 8 hours. 0.9% NaCl injection 3 mL 3 mL, Intracatheter, EVERY 8 HOURS, First dose on Wed02/23/24 at 2200, Until Discontinued, Flush peripheral IV catheter with 3 mL of normal saline every 8 hours. $ Given 02/26/2024 6:07 AM SKILLS AUDITOR 3 mL $ Given 02/25/2024 9:02 PM SKILLS AUDITOR 3 mL $ Given 02/25/2024 7:03 PM SKILLS AUDITOR 3 mL enoxaparin (Lovenox) injection 40 mg 40 mg, Subcutaneous, DAILY, First dose on Wed02/24/24 at 0900, Until Discontinued, (for prefilled syringes) do not expel air bubble from the syringe prior to the injection Remind Patient to not rub injection site. Could cause hematoma. $ Given 02/26/2024 9:06 AM SKILLS AUDITOR 40 mg Ab dominal Tissue $ Given 02/25/2024 10:45 AM SKILLS AUDITOR 40 mg A bd Left Lower Quadrant $ Given 02/24/2024 9:25 AM SKILLS AUDITOR 40 mg Ab dominal Tissue lactated ringers IV bolus 1,000 mL, at 1,935.48 mL/hr, Administer over 31 Minutes, ONCE, 1 dose, On Wed02/23/24 at 1830 $ New Bag/Syringe 02/23/2024 6:28 PM SKILLS AUDITOR 1,000 mL 1935.48 mL/hr lactobacillus (Lactinex) granules 1 packet 1 packet, Oral, 3 TIMES DAILY, First dose on Wed02/25/24 at 1100, Until Discontinued, . $ Given 02/26/2024 9:06 AM SKILLS AUDITOR 1 packet $ Given 02/25/2024 8:58 PM SKILLS AUDITOR 1 packet $ Given 02/25/2024 6:32 PM SKILLS AUDITOR 1 packet levothyroxine (Synthroid) tablet 75 mcg 75 mcg, Oral, DAILY BEFORE BREAKFAST, First dose on Wed02/24/24 at 0700, Until Discontinued, Take in the morning on an empty stomach. Do not give within 4 hours of antacids, iron or calcium supplements. $ Given 02/26/2024 6:07 AM SKILLS AUDITOR 75 mcg $ Given 02/25/2024 6:52 AM SKILLS AUDITOR 75 mcg $ Given 02/24/2024 6:09 AM SKILLS AUDITOR 75 mcg loratadine (Claritin) tablet 10 mg 10 mg, Oral, DAILY, First dose on Wed02/24/24 at 0915, Until Discontinued $ Given 02/26/2024 9:06 AM SKILLS AUDITOR 10 mg $ Given 02/25/2024 10:45 AM SKILLS AUDITOR 10 mg $ Given 02/24/2024 9:26 AM SKILLS AUDITOR 10 mg melatonin tablet 5 mg 5 mg, Oral, AT BEDTIME, First dose on Wed02/23/24 at 2200, Until Discontinued $ Given 02/25/2024 8:58 PM SKILLS AUDITOR 5 mg $ Given 02/24/2024 9:57 PM SKILLS AUDITOR 5 mg $ Given 02/23/2024 10:23 PM SKILLS AUDITOR 5 mg memantine (Namenda) tablet 5 mg 5 mg, Oral, 2 TIMES DAILY, First dose on Wed02/23/24 at 2200, Until Discontinued $ Given 02/26/2024 9:06 AM SKILLS AUDITOR 5 mg $ Given 02/25/2024 8:58 PM SKILLS AUDITOR 5 mg $ Given 02/25/2024 10:45 AM SKILLS AUDITOR 5 mg methylPREDNISolone sod succ (SOLU-Medrol) injection 20 mg 20 mg, Intravenous, ONCE, 1 dose, On Su 02/24/24 at 2115 $ Given 02/24/2024 9:56 PM SKILLS AUDITOR 20 mg ondansetron (disintegrating) (Zofran ODT) tablet 4 mg 4 mg, Oral, EVERY 6 HOURS PRN, Nausea/Vomiting, Starting on Wed02/23/24 at 2107, Until 02/26/24 at 1722, Dissolved orally on tongue ondansetron (Zofran) injection 4 mg 4 mg, Intravenous, EVERY 6 HOURS PRN, Nausea/Vomiting, Starting on Wed02/23/24 at 2107, Until 02/26/24 at 1722, Administer IV if patient is NPO, actively vomiting, or unable to swallow. documented in this encounter Active and Recently Administered Medications Times are shown in SKILLS AUDITOR. Scheduled Medication Order 02/24/2024 02/25/2024 02/26/2024 0.9% NaCl injection 3 mL(Linked Group 1) 3 mL, Intracatheter, EVERY 8 HOURS, First dose on Wed02/24/24 at 0800, Until Discontinued, Flush peripheral IV catheter with 3 mL of normal saline every 8 hours. 0800 (Not Administered - Provider: Laurita Parada Nurse - Reason: IV Currently Infusing)1500 (Not Administered - Provider: Laurita Parada Nurse - Reason: IV Currently Infusing)2200 (Not Administered - Provider: Charlie Ngo RN - Reason: Documented on duplicate row) 0536 (Not Administered - Provider: Charlie Ngo RN - Reason: Documented on duplicate row)1904 (Not Administered - Provider: Abran Clark RN - Reason: Documented on duplicate row)2102 (Not Administered - Provider: Elke Dumont RN - Reason: Documented on duplicate row) 0609 (Not Administered - Provider: Elke Dumont RN - Reason: Documented on duplicate row)1400 (Due) 0.9% NaCl injection 3 mL(Linked Group 2) 3 mL, Intracatheter, EVERY 8 HOURS, First dose on Wed02/23/24 at 2200, Until Discontinued, Flush peripheral IV catheter with 3 mL of normal saline every 8 hours. 0543 (Not Administered - Provider: Laurita Solis - Reason: IV Currently Infusing)1459 (Not Administered - Provider: Laurita Parada Nurse - Reason: IV Currently Infusing)2200 ($ Given - Provider: Charlie Ngo RN) 0536 ($ Given - Provider: Charlie Ngo RN)1903 ($ Given - Provider: Abran Clark, RN)2102 ($ Given - Provider: Elke Dumont, RN) 0607 ($ Given - Provider: Elke Dumont, RN)1400 (Due) enoxaparin (Lovenox) injection 40 mg 40 mg, Subcutaneous, DAILY, First dose on Wed02/24/24 at 0900, Until Discontinued, (for prefilled syringes) do not expel air bubble from the syringe prior to the injection Remind Patient to not rub injection site. Could cause hematoma. 0925 ($ Given - Provider: Laurita Parada Nurse) 1045 ($ Given - Provider: Abran Clark, RN) 0906 ($ Given - Provider: Rhianna Geronimo, RN) lactobacillus (Lactinex) granules 1 packet 1 packet, Oral, 3 TIMES DAILY, First dose on Wed02/25/24 at 1100, Until Discontinued, . 1102 (Not Administered - Provider: Abran Clark, JEAN-PAUL - Reason: See Comments)1832 ($ Given - Provider: Abran Clark, RN)2058 ($ Given - Provider: Elke Dumont, RN) 0906 ($ Given - Provider: Rhianna Geronimo, RN)1400 (Due) levothyroxine (Synthroid) tablet 75 mcg 75 mcg, Oral, DAILY BEFORE BREAKFAST, First dose on Wed02/24/24 at 0700, Until Discontinued, Take in the morning on an empty stomach. Do not give within 4 hours of antacids, iron or calcium supplements. 0609 ($ Given - Provider: Laurita Solis) 0652 ($ Given - Provider: Charlie Ngo RN) 0607 ($ Given - Provider: Elke Dumont, RN) loratadine (Claritin) tablet 10 mg 10 mg, Oral, DAILY, First dose on Wed02/24/24 at 0915, Until Discontinued 09 ($ Given - Provider: Laurita Parada Nurse) 1045 ($ Given - Provider: Abran Clark RN) 0906 ($ Given - Provider: Rhianna Geronimo, RN) melatonin tablet 5 mg 5 mg, Oral, AT BEDTIME, First dose on Wed02/23/24 at 2200, Until Discontinued 2156 ($ Given - Provider: Charlie Ngo, EJAN-PAUL) 2057 ($ Given - Provider: Elke Dumont, RN) memantine (Namenda) tablet 5 mg 5 mg, Oral, 2 TIMES DAILY, First dose on Wed02/23/24 at 2200, Until Discontinued 09 ($ Given - Provider: Candi Knapp, Graduate Nurse)2156 ($ Given - Provider: Charlie Ngo, RN) 1045 ($ Given - Provider: Abran Clark, JEAN-PAUL)2057 ($ Given - Provider: Elke Dumont, RN) 0906 ($ Given - Provider: Rhianna Geronimo, RN) methylPREDNISolone sod succ (SOLU-Medrol) injection 20 mg (COMPLETED) 20 mg, Intravenous, ONCE, 1 dose, On Wed02/24/24 at 2115 2156 ($ Given - Provider: Charlie Ngo, JEAN-PAUL) Continuous Medication Order 02/24/2024 02/25/2024 02/26/2024 0.9% NaCl infusion () at 100 mL/hr, Intravenous, CONTINUOUS, Starting on Wed02/23/24 at 2115, Until Wed02/24/24 at 2113 0921 ($ New Bag/Syringe - Provider: Candi Knapp, Graduate Nurse) PRN Medication Order 02/24/2024 02/25/2024 02/26/2024 0.9% NaCl injection 1-10 mL(Linked Group 1) 1-10 mL, Intracatheter, PRN, Other, peripheral line flush, Starting on Su 02/24/24 at 0756, Until 02/26/24 at 1722, Flush peripheral IV catheter with 1-10 mL of normal saline before and after medications and prn to clear blood from the line or to verify patency. 0.9% NaCl injection 1-10 mL(Linked Group 2) 1-10 mL, Intracatheter, PRN, Other, peripheral line flush, Starting on Wed02/23/24 at 2107, Until 02/26/24 at 1722, Flush peripheral IV catheter with 1-10 mL of normal saline before and after medications and prn to clear blood from the line or to verify patency. acetaminophen (Tylenol) tablet 650 mg 650 mg, Oral, EVERY 4 HOURS PRN, Fever, For temperature GREATER than 101 , Starting on Wed02/23/24 at 2107, Until 02/26/24 at 1722, Patient preference for lesser PRN pain meds may be honored when the patient requests a less strong medication, a lower dose, or a less intrusive route of administration when the lesser drug, dose and route have been ordered for the patient. This patient request must be documented in the MAR. If both oral and IV options are ordered for the same pain severity, give oral first unless patient cannot tolerate oral intake ondansetron (disintegrating) (Zofran ODT) tablet 4 mg(Linked Group 3) 4 mg, Oral, EVERY 6 HOURS PRN, Nausea/Vomiting, Starting on Wed02/23/24 at 2107, Until 02/26/24 at 1722, Dissolved orally on tongue ondansetron (Zofran) injection 4 mg(Linked Group 3) 4 mg, Intravenous, EVERY 6 HOURS PRN, Nausea/Vomiting, Starting on Wed02/23/24 at 2107, Until 02/26/24 at 1722, Administer IV if patient is NPO, actively vomiting, or unable to swallow. Linked Groups Order Group 1: SALINE LOCK, INSERT AND MAINTAIN (CANCELED) Routine, CONTINUOUS, Starting on Wed02/24/24 at 0800, Until Specified, New collection And 0.9% NaCl injection 3 mLJump to med 3 mL, Intracatheter, EVERY 8 HOURS, First dose on Wed02/24/24 at 0800, Until Discontinued, Flush peripheral IV catheter with 3 mL of normal saline every 8 hours. And 0.9% NaCl injection 1-10 mLJump to med 1-10 mL, Intracatheter, PRN, Other, peripheral line flush, Starting on Wed02/24/24 at 0756, Until 02/26/24 at 1722, Flush peripheral IV catheter with 1-10 mL of normal saline before and after medications and prn to clear blood from the line or to verify patency. Group 2: SALINE LOCK, INSERT AND MAINTAIN (CANCELED) Routine, CONTINUOUS, Starting on Wed02/23/24 at 2115, Until Specified, New collection And 0.9% NaCl injection 3 mLJump to med 3 mL, Intracatheter, EVERY 8 HOURS, First dose on Wed02/23/24 at 2200, Until Discontinued, Flush peripheral IV catheter with 3 mL of normal saline every 8 hours. And 0.9% NaCl injection 1-10 mLJump to med 1-10 mL, Intracatheter, PRN, Other, peripheral line flush, Starting on Wed02/23/24 at 2107, Until 02/26/24 at 1722, Flush peripheral IV catheter with 1-10 mL of normal saline before and after medications and prn to clear blood from the line or to verify patency. Group 3: ondansetron (disintegrating) (Zofran ODT) tablet 4 mgJump to med 4 mg, Oral, EVERY 6 HOURS PRN, Nausea/Vomiting, Starting on Wed02/23/24 at 2107, Until 02/26/24 at 1722, Dissolved orally on tongue Or ondansetron (Zofran) injection 4 mgJump to med 4 mg, Intravenous, EVERY 6 HOURS PRN, Nausea/Vomiting, Starting on Wed02/23/24 at 2107, Until 02/26/24 at 1722, Administer IV if patient is NPO, actively vomiting, or unable to swallow. documented in this encounter Additional Health Concerns Infection Onset Date Last Indicated Resolved Time COVID-19 Under Investigation 02/25/2024 02/25/2024 02/25/2024 4:02 PM SKILLS AUDITOR documented as of this encounter Care Teams Chief Order Dispatcher Relationship Specialty [place] [address] [place] [address] PCP - General Internal Medicine 01/26/22 [place] [address] [place] [phone] PCP - [facility] 02/19/22 [place] [address] [facility] [address] [place] [address] Ophthalmology 04/06/16 Fawn Ramon DPM [address] [place] [address] Podiatry 01/24/21 documented as of this encounter
--- OUTSIDE RECORDS SUMMARY | 2024-04-03 00:57 | XMS_ITS | Encounter Summary ---
Author Organization [facility] Address [address] [place] [address] Care Team Providers Care Stretcher And Drier Name Role Phone Ricco Andrew MD Unavailable [phone] Fawn Raomn DPM Unavailable [phone] Chris Aden MD Primary Care Provider [phone] Chris Aden MD Unavailable Reason for Visit * Reason Onset Date Comments SHAKING 03/09/2024 Fatigue 03/09/2024 Slurred Speech 03/09/2024 Chest Pain 03/09/2024 Encounter Details Date Type Department Care Team (Late st Contact Info) Description 03/09/2024 Telephone [facility] Family Medicine [id number] [place] [address] Chris Aden MD [address] [place] [id number] SHAKING; Fatigue; Slurred Speech; Chest Pain Social History Tobacco Use Types Packs/Day Years Used Date Smoking Tobacco: Never Passive Smoke Exposure: Current Smokeless Tobacco: Former Chew Quit: 01/02/2021 Alcohol Use Standard Drinks/Week Comments No 0 (1 standard drink = 0.6 oz pur e alcohol) AUDIT-C Answer Date Recorded Q1: How often do you have a drink containing alc ohol? Never 02/23/2024 Average Number of Drinks Not on file 12/04/2 024 Frequency of Binge Drinking Not on file 06/2023 Overall Financial Resource Strain (CARDIA) Answe r Date Recorded How hard is it for you to pa y for the very basics like food, housing, medical care, and heating? Not very hard 02/24/2024 PHQ-2 Answer Date Recorded Patient Health Questionnaire-2 Score 2 03/06/2024 [facility] - Occupational Stress Questionnaire Answer Date Recorded [...] any time in the past 12 [facility], were you homeless or living in a group home (including now)? No 02/24/2024 Sex and Gender Information Value Date Recorded Sex Assigned at Male 01/22/2023 1:45 PM CDT Gender Identity Male 01/22/2023 1:45 PM CDT Sexual Orientation Straight 01/22/2023 1: 45 PM CDT documented as of this encounter Miscellaneous Notes * Telephone Encounter - Aby Dyer RN - 03/09/2024 11:27 AM DRY GOODS CLERK Pt daughter (on HIPAA) calling stating this morning pt left pupil is smaller than the right pupil. Pt informed daughter that he had CP. Temp of 99.7 F. BP of 112/74. Has productive cough Has tremors/shakes No FERRIS Has confusion, hx of dementia Has weakness, worse than normal Has fatigue Has slurred speech No wheezing No SOB Pt informed daughter he feels like something is wrong. Pt daughter advised to take pt to ER. Pt daughter verbalized understanding and will call 911. Pt will be taken to [facility] ER. GOODS CLERK documented in this encounter Plan of Treatment Upcoming Encounters Date Type Department Care Team (Late st Contact Info) Description 04/07/2024 10:00 AM DRY GOODS CLERK Office Visit [facility] [id number] [place] [address] [address] [place] [address] Evelin Blanco APRN-CNP [id number] [place] [address] 06/06/2024 2:00 PM CDT Office Visit [facility] [id number] [place] [address] [address] [place] [address] [place] [id number] [place] [phone] documented as of this encounter Goals Goal Patient Goal Type Associated Problems Recent Progress Patient-Stated? Author Blood Pressure < 140/90 Blood Pressure 96/68(2023 2:34 PM DRY GOODS CLERK) Rere Vargas Note: Caring for Your High [...] Where can I go for more information? [place] Heart Association National Center: http://www.americanheart.org 1. In the top header, click ? Conditions? . 2. In the top header, click ? high blood pressure.? 3. For a printable blood pressure tracker, scroll toward the bottom of the page to Related Tools, and click ? HBP Trackers.? 9-094-KUU-USA-1 or ( ) National Heart, Lung and Blood [place]: http://www.nhlbi.nih.gov/health/infoctr/index.htm Blood Pressure < 140/90 Blood Pressure 96/68(2023 2:34 PM DRY GOODS CLERK) Rere Vargas Note: Caring for Your High [...] Where can I go for more information? [place] Heart Association National Center: http://www.americanheart.org 1. In the top header, click ? Conditions? . 2. In the top header, click ? high blood pressure.? 3. For a printable blood pressure tracker, scroll toward the bottom of the page to Related Tools, and click ? HBP Trackers.? 6-514-YGM-USA-1 or ( ) National Heart, Lung and Blood [place]: http://www.nhlbi.nih.gov/health/infoctr/index.htm Blood Pressure < 140/90 Blood Pressure 96/68(2023 2:34 PM DRY GOODS CLERK) Cassie Parks Note: Caring for Your High [...] Where can I go for more information? [place] Heart Association National Center: http://www.americanheart.org 1. In the top header, click ? Conditions? . 2. In the top header, click ? high blood pressure.? 3. For a printable blood pressure tracker, scroll toward the bottom of the page to Related Tools, and click ? HBP Trackers.? 3-387-HAM-USA-1 or ( ) National Heart, Lung and Blood [place]: http://www.nhlbi.nih.gov/health/infoctr/index.htm Exercise 5X per week (30 min per time) Exercise No Rere Kaufman Note: The [place] College of [employer] Medicine recommends all adults [...] how to manage your diabetes: ? ? [place] Diabetes Association: www.diabetes.org 3-214-ALNKMZEL ( ) ? ? [place] Diabetes Association-Support group line: www.professional.diabetes.org ? ? [place] Heart Association: www.heart.org or 1-906-KVM-[facility]-1 ( ) [employer] MyPlate: www.Veryan Medicalmyplate.gov Have labs drawn Lifestyle Rere Vargas Note: [...] on filedocumented in this encounter Care Teams Stretcher And Drier Relationship Specialty [place] [address] [place] [phone] PCP - General Internal Medicine 01/26/22 [place] [address] [place] [phone] PCP - [facility] 02/19/22 [place] [address] [facility] [address] [place] [phone] Ophthalmology 04/06/16 Fawn Ramon DPM [address] [place] [address] Podiatry 01/24/21 documented as of this encounter
--- OUTSIDE RECORDS SUMMARY | 2024-04-03 00:57 | XMS_ITS | Encounter Summary ---
Author Organization [facility] Address [address] [facility] [place] [address] Care Team Providers Care Plan Coordinator Name Role Phone Ricco Andrew MD Unavailable [phone] Fawn Ramon Kae Unavailable [phone] Chris Aden MD Primary Care Provider [phone] Chris Aden MD Unavailable Reason for Visit * Reason Comments Refill Request Encounter Details Date Type Department Care Team (Late st Contact Info) Description 02/18/2024 Refill [facility] - Family Medicine [address] [place] [address] Chris Aden MD [address] [place] [phone] Refill Request Social History Tobacco Use Types Packs/Day [...] of Binge Drinking Not on file 06/2023 PHQ-2 Answer Date Recorded Patient Health Questionnaire-2 Score 0 02/09/2024 Sex and Gender Information Value Date Recorded Sex Assigned at Male 01/22/2023 1:45 PM CDT Gender Identity Male 01/22/2023 1:45 PM CDT Sexual Orientation Straight 01/22/2023 1: 45 PM CDT documented as of this encounter Plan of Treatment Upcoming Encounters Date Type Department Care Team (Late st Contact Info) Description 04/07/2024 10:00 AM PIGMENT PUSHER Office Visit [facility] [address] [facility] [address] [place] [address] Evelin Blanco, KNOCKER OUT-GUIDE [address] [facility] [address] [place] [address] 06/06/2024 2:00 PM CDT Office Visit [facility] [id number] [place] [address] [address] [place], [place] [id number] [place] [address] [facility] [address] [place] [address] documented as of this encounter Goals Goal Patient Goal Type Associated Problems Recent Progress Patient-Stated? Author Blood Pressure < 140/90 Blood Pressure 96/68(2023 2:34 PM PIGMENT PUSHER) Rere Vargas Note: Caring for Your High [...] Where can I go for more information? [place] Heart Association National Center: http://www.americanheart.org 1. In the top header, click ? Conditions? . 2. In the top header, click ? high blood pressure.? 3. For a printable blood pressure tracker, scroll toward the bottom of the page to Related Tools, and click ? HBP Trackers.? 1-915-MUU-USA-1 or ( ) National Heart, Lung and Blood [place]: http://www.nhlbi.nih.gov/health/infoctr/index.htm Blood Pressure < 140/90 Blood Pressure 96/68(2023 2:34 PM PIGMENT PUSHER) Rere Vargas Note: Caring for Your High [...] Where can I go for more information? [place] Heart Association National Center: http://www.americanheart.org 1. In the top header, click ? Conditions? . 2. In the top header, click ? high blood pressure.? 3. For a printable blood pressure tracker, scroll toward the bottom of the page to Related Tools, and click ? HBP Trackers.? 5-694-KTA-USA- or ( ) National Heart, Lung and Blood [place]: http://www.nhlbi.nih.gov/health/infoctr/index.htm Blood Pressure < 140/90 Blood Pressure 96/68(2023 2:34 PM PIGMENT PUSHER) Cassie Parks Note: Caring for Your High [...] Where can I go for more information? [place] Heart Association National Center: http://www.americanheart.org 1. In the top header, click ? Conditions? . 2. In the top header, click ? high blood pressure.? 3. For a printable blood pressure tracker, scroll toward the bottom of the page to Related Tools, and click ? HBP Trackers.? 9-986-ZRS-USA-1 or ( ) National Heart, Lung and Blood [place]: http://www.nhlbi.nih.gov/health/infoctr/index.htm Exercise 5X per week (30 min per time) Exercise Rere Vargas Note: The [place] College of [employer] Medicine recommends all adults [...] how to manage your diabetes: ? ? [place] Diabetes Association: www.diabetes.org 9-728-MSABYPRN ( ) ? ? [place] Diabetes Association-Support group line: www.professional.diabetes.org ? ? [place] Heart Association: www.heart.org or 7-221-OMT-USA-1 ( ) [employer] MyPlate: www.Kryptiqmyplate.gov Have labs drawn Lifestyle Rere Vargas Note: [...] on filedocumented in this encounter Care Teams Plan Coordinator Relationship Specialty [place] [address] [place] [phone] PCP - General Internal Medicine 01/26/22 [place] [address] [place] [phone] PCP - [facility] 02/19/22 [place] [address] [facility] [address] [place] [address] Ophthalmology 04/06/16 Fawn Ramon DPM [address] [place] [address] Podiatry 01/24/21 documented as of this encounter
--- OUTSIDE RECORDS SUMMARY | 2024-04-03 00:57 | XMS_ITS | Encounter Summary ---
Author Organization [facility] Address [address] [facility] [place] [address] Care Team Providers Care News Producer Name Role Phone Ricco Andrew MD Unavailable [phone] Fawn Raomn DPM Unavailable [phone] Chris Aden MD Primary Care Provider [phone] Chris Aden MD Unavailable Encounter Details Date Type Department Care Team (Late st Contact Info) Description 02/11/2024 Orders Only [facility] - Family Medicine [address] [place] [address] Chris Aden MD [address] [place] [phone] Social History Tobacco Use Types Packs/Day Years [...] st Contact Info) Description 04/07/2024 10:00 AM CROWD CONTROLLER Office Visit [facility] [address] [facility] [address] [place] [address] Evelin Blanco APRN-CNP [address] [facility] [address] [place] [address] 06/06/2024 2:00 PM CDT Office Visit [facility] [address] [facility] [address] [place] [address] [place] [address] [facility] [address] [place] [address] documented as of this encounter Goals Goal Patient Goal Type Associated Problems Recent Progress Patient-Stated? Author Blood Pressure < 140/90 Blood Pressure 96/68(2023 2:34 PM CROWD CONTROLLER) Rere Vargas Note: Caring for Your High [...] Where can I go for more information? [place] Heart Association National Center: http://www.americanheart.org 1. In the top header, click ? Conditions? . 2. In the top header, click ? high blood pressure.? 3. For a printable blood pressure tracker, scroll toward the bottom of the page to Related Tools, and click ? HBP Trackers.? 1-773-JJU-USA-1 or ( ) National Heart, Lung and Blood [place] Center: http://www.nhlbi.nih.gov/health/infoctr/index.htm Blood Pressure < 140/90 Blood Pressure 96/68(2023 2:34 PM CROWD CONTROLLER) Rere Vargas Note: Caring for Your High [...] Where can I go for more information? [place] Heart Association National Center: http://www.americanheart.org 1. In the top header, click ? Conditions? . 2. In the top header, click ? high blood pressure.? 3. For a printable blood pressure tracker, scroll toward the bottom of the page to Related Tools, and click ? HBP Trackers.? 5-090-EOW-USA-1 or ( ) National Heart, Lung and Blood [place] Center: http://www.nhlbi.nih.gov/health/infoctr/index.htm Blood Pressure < 140/90 Blood Pressure 96/68(2023 2:34 PM CROWD CONTROLLER) Cassie Parks Note: Caring for Your High [...] Where can I go for more information? [place] Heart Association National Center: http://www.americanheart.org 1. In the top header, click ? Conditions? . 2. In the top header, click ? high blood pressure.? 3. For a printable blood pressure tracker, scroll toward the bottom of the page to Related Tools, and click ? HBP Trackers.? 3-938-WIV-USA-1 or ( ) National Heart, Lung and Blood [place] Center: http://www.nhlbi.nih.gov/health/infoctr/index.htm Exercise 5X per week (30 min per time) Exercise Rere Vargas Note: The [place] [employer] recommends all adults [...] how to manage your diabetes: ? ? [place] Diabetes Association: www.diabetes.org 7-896-WZOXRJZV ( ) ? ? [place] Diabetes Association-Support group line: www.professional.diabetes.org ? ? [place] Heart Association: www.heart.org or 3-816-KHD-USA-1 ( ) [employer] MyPlate: www.GameDuellmyplate.gov Have labs drawn Lifestyle No Rere Kaufman [...] on filedocumented in this encounter Care Teams News Producer Relationship Specialty [place] [address] [place] [address] PCP - General Internal Medicine 01/26/22 [place] [address] [place] [address] PCP - [facility] 02/19/22 [place] [address] [facility] [address] [place] [address] Ophthalmology 04/06/16 Fawn Ramon DPM [address] [place] [address] Podiatry 01/24/21 documented as of this encounter
--- OUTSIDE RECORDS SUMMARY | 2024-04-03 00:57 | XMS_ITS | Encounter Summary ---
Author Organization [facility] Address [address] [place] [address] Care Team Providers Care Illustrator Set Name Role Phone Ricco Andrew MD Unavailable [phone] Fawn Ramon DPM Unavailable [phone] Chris Aden MD Primary Care Provider [phone] Chris Aden MD Unavailable Clarice Hansen RN Unavailable [phone] Reason for Visit * Reason Onset Date Comments Transitional Care 02/28/2024 Encounter Details Date Type Department Care Team (Late st Contact Info) Description 02/28/[address] [facility] - Care Coordination [address] [place] [id number] Clarice Hansen RN Transitional Care Social History Tobacco Use Types Packs/Day [...] Recorded Patient Health Questionnaire-2 Score 0 02/28/2024 [facility] [place] [facility] - Occupational Stress [...] any time in the past 12 [address] [place] [place], were you homeless or living in a halfway (including now)? No 02/24/2024 Sex and Gender Information Value Date Recorded Sex Assigned at Male 01/22/2023 1:45 PM CDT Gender Identity Male 01/22/2023 1:45 PM CDT Sexual Orientation Straight 01/22/2023 1: 45 PM CDT documented as of this encounter Miscellaneous Notes * Telephone Encounter - Chris Aden MD - 02/28/2024 5:39 PM CST PROVIDER ASSESSMENT OF PATIENT CONTACT WITHIN 2 BUSINESS DAYS OF DISCHARGE Are the discharge records available and reviewed? Yes Are there pending tests that need reviewed? Yes Is there need to discuss patient with other health care providers? Yes Is there need for additional referrals, either for other providers or community resources? Yes ANALYST * Telephone Encounter - Clarice Hansen RN - 02/28/2024 9:47 AM CST Readmission Risk Score 14* at 9:48 AM 02/28/2024. Physician to address items 1 through 4 below: [facility] DC 02/25, dx hypotension. Cassie, daughter, stated he's doing better. She stated he's waiting on her to assist him with getting up. She didn't have any concerns at this time. A hospital follow up appointment was scheduled for 03/[address] Aden. 1. Please see Meds & Orders section for specific details or concern listed below: No concerns at this time 2. Orders/concerns: 3. Please enter dotphrase TCMPROVIDER 4. Please Close Encounter ---------Encounter Note This encounter was a(n) Active engagement with the patient. Patient could be eligible for Medicare Advantage medically tailored meals. Post Discharge Outreach from Inpatient / Observation Transition of Care Assessment PAULINO-General Do you understand your discharge instructions (if no, obtain D/C instructions and if possible walk through the instructions w/patient: Yes Did you receive new medications, or were changes made to existing medications (complete Med Rec): No Were you ordered durable Medical equipment (crutches, walker, etc.): No Do you have follow up appointments scheduled as recommended following your discharge (if no, discuss barriers with the patient and provide resources and/or referrals for the patients): No Do you need help with (ADL's, transportation etc.): Yes PHQ Assessment Patient Health Questionnaire-2 Score: 0 (02/28/2024 9:37 AM) Med Reconciliation Discharge Medication list was reviewed and compared with Current Medications. Current Medications List Current Outpatient Medications Medication Sig Acetaminophen (TYLENOL ARTHRITIS PAIN PO) Take 650 [...] by mouth once daily as neededfor Constipation) docusate sodium (Colace) 100 MG capsule TAKE [...] daily (Patient not taking: Reported on 02/28/2024) melatonin 3 MG tablet Take 5 mg by mouth at bedtime (Patient not taking: Reported on 02/28/2024) memantine (Namenda) 5 MG tablet Take 1 [...] times daily (One touch mini test strips)) Polyethylene Glycol 3350 1 packet mixed with 8 ounces of fluid Orally Once a day (Patient not taking: Reported on 02/28/2024) Vitamin D3 (25 MCG) 1000 UNIT capsule Take 1 (one) capsule by mouth once daily Reasons: Vitamin D Deficiency Clarice Hansen RN 02/28/2024 9:48 AM ANALYST documented in this encounter Plan of Treatment Upcoming Encounters Date Type Department Care Team (Late st Contact Info) Description 04/07/2024 10:00 AM BOND ANALYST Office Visit [facility] [address] [place] [address] Francis Evelin, HEEL SLICKER-SENIOR TECHNICAL SPECIALIST [address] [facility] [address] [place] [address] 06/06/2024 2:00 PM CDT Office Visit [facility] [address] [facility] [address] [place] [address] [place] [address] [facility] [address] [place] [address] documented as of this encounter Goals Goal Patient Goal Type Associated Problems Recent Progress Patient-Stated? Author Blood Pressure < 140/90 Blood Pressure 96/68(2023 2:34 PM BOND ANALYST) Rere Vargas Note: Caring for Your High [...] Where can I go for more information? [place] Heart Association National Center: http://www.americanheart.org 1. In the top header, click ? Conditions? . 2. In the top header, click ? high blood pressure.? 3. For a printable blood pressure tracker, scroll toward the bottom of the page to Related Tools, and click ? HBP Trackers.? 2-270-RPC-USA- or ( ) National Heart, Lung and Blood [place]: http://www.nhlbi.nih.gov/health/infoctr/index.htm Blood Pressure < 140/90 Blood Pressure 96/68(2023 2:34 PM BOND ANALYST) Rere Vargas Note: Caring for Your High [...] Where can I go for more information? [place] Heart Association National Center: http://www.americanheart.org 1. In the top header, click ? Conditions? . 2. In the top header, click ? high blood pressure.? 3. For a printable blood pressure tracker, scroll toward the bottom of the page to Related Tools, and click ? HBP Trackers.? 0-856-QMO-USA- or ( ) National Heart, Lung and Blood [place]: http://www.nhlbi.nih.gov/health/infoctr/index.htm Blood Pressure < 140/90 Blood Pressure 96/68(2023 2:34 PM BOND ANALYST) Cassie Parks Note: Caring for Your High [...] Where can I go for more information? [place] Heart Association National Center: http://www.americanheart.org 1. In the top header, click ? Conditions? . 2. In the top header, click ? high blood pressure.? 3. For a printable blood pressure tracker, scroll toward the bottom of the page to Related Tools, and click ? HBP Trackers.? 0-857-NXH-USA-1 or ( ) National Heart, Lung and Blood [place]: http://www.nhlbi.nih.gov/health/infoctr/index.htm Exercise 5X per week (30 min per time) Exercise Rere Vargas Note: The [place] College [employer] recommends all adults [...] how to manage your diabetes: ? ? [place] Diabetes Association: www.diabetes.org 3-479-JFSBWPCW ( ) ? ? [place] Diabetes Association-Support group line: www.professional.diabetes.org ? ? [place] Heart Association: www.heart.org or 9-073-SYF-USA-1 ( ) USDA MyPlate: www.Applimationmyplate.gov Have labs drawn Lifestyle Rere Vargas Note: [...] on filedocumented in this encounter Care Teams Illustrator Set Relationship Specialty [place] [address] [place] [address] PCP - General Internal Medicine 01/26/22 [place] [address] [place] [address] PCP - [facility] 02/19/22 [place] [address] [facility] [address] [place] [address] Ophthalmology 04/06/16 [place] Ram[place] [address] [address] [place], [place] [id number] Podiatry 01/24/21 Clarice Hansen RN Forming And Assembling SupervisorManager Stylist 02/28/24 02/28/24 documented as of this encounter
--- OUTSIDE RECORDS SUMMARY | 2024-04-03 00:57 | XMS_ITS | Encounter Summary ---
Author Organization [facility] Address [address] [facility] [place] [address] Care Team Providers Care Grinder Set Up Operator Surface Name Role Phone Ricco Andrew MD Unavailable [phone] Fawn Ramon DPM Unavailable [phone] Chris Aden MD Primary Care Provider [phone] Chris Aden MD Unavailable Reason for Visit * Reason Onset Date Comments Injury Elbow 01/25/2024 Encounter Details Date Type Department Care Team (Late st Contact Info) Description 01/25/2024 Telephone [facility] - Family Medicine [id number] [place] [address] [place] [address] Chris Aden MD [id number] [place] [id number] Injury Elbow Social History Tobacco Use Types Packs/Day Years Used Date Smoking Tobacco: Never Passive Smoke Exposure: Current Smokeless Tobacco: Former Chew Quit: 01/02/2021 Alcohol Use Standard Drinks/Week Comments No 0 (1 standard drink = 0.6 oz pur e alcohol) PHQ-2 Answer Date Recorded Patient Health Questionnaire-2 Score 0 12/02/2023 Sex and Gender Information Value Date Recorded Sex Assigned at Male 01/22/2023 1:45 PM CDT Gender Identity Male 01/22/2023 1:45 PM CDT Sexual Orientation Straight 01/22/2023 1: 45 PM CDT documented as of this encounter Miscellaneous Notes * Telephone Encounter - Aby Dyer RN - 01/25/2024 2:10 PM CST Called pt daughter to be made aware of PCP message/advisement: Please let the patient know that I do not know which home health accept to see her the patient should call the insurance and get the home health that can see the patient me know to make the referral. Pt daughter verbalized understanding. Pt daughter will call office back with an update. TING LABORER * Telephone Encounter - Aby Dyer RN - 01/25/2024 11:29 AM HOISTING LABORER Pt daughter (on HIPAA) calling stating pt fell on 01/23/24 and fractured his right elbow. Pt was evaluated at [facility]. Pt daughter states if she can get help with pt she will schedule a hospital follow-up. Pt cannot get pt into a car by herself. Pt daughter is having a hard time assisting pt with ADLs. Pt was referred to HH on 12/02/23. HH referral has been denied as pt is out of service area. Pt daughter is asking if PCP can refer pt to another HH agency. TING LABORER documented in this encounter Plan of Treatment Upcoming Encounters Date Type Department Care Team (Late st Contact Info) Description 04/07/2024 10:00 AM HOISTING LABORER Office Visit [facility] [id number] [place] [address] [address] [place] [address] Evelin Blanco, JACK SPINNER-TESTING PROJECTS ADMINISTRATOR [address] [facility] [address] [place] [address] 06/06/2024 2:00 PM CDT Office Visit [facility] [id number] [place] [address] [address] [place] [address] Chris [place]en [place] [id number] [place] [address] [address] [place] [phone] documented as of this encounter Goals Goal Patient Goal Type Associated Problems Recent Progress Patient-Stated? Author Blood Pressure < 140/90 Blood Pressure 96/68(2023 2:34 PM HOISTING LABORER) No Rere Kaufman Note: Caring for Your [...] Where can I go for more information? [place] Heart Association National Center: http://www.americanheart.org 1. In the top header, click ? Conditions? . 2. In the top header, click ? high blood pressure.? 3. For a printable blood pressure tracker, scroll toward the bottom of the page to Related Tools, and click ? HBP Trackers.? 9-283-GAM-USA-1 or ( ) National Heart, Lung and Blood [place]: http://www.nhlbi.nih.gov/health/infoctr/index.htm Blood Pressure < 140/90 Blood Pressure 96/68(2023 2:34 PM HOISTING LABORER) Rere Vargas Note: Caring for Your High [...] Where can I go for more information? [place] Heart Association National Center: http://www.americanheart.org 1. In the top header, click ? Conditions? . 2. In the top header, click ? high blood pressure.? 3. For a printable blood pressure tracker, scroll toward the bottom of the page to Related Tools, and click ? HBP Trackers.? 5-275-RAF-USA-1 or ( ) National Heart, Lung and Blood [place]: http://www.nhlbi.nih.gov/health/infoctr/index.htm Blood Pressure < 140/90 Blood Pressure 96/68(2023 2:34 PM HOISTING LABORER) Cassie Parks Note: Caring for Your High [...] Where can I go for more information? [place] Heart Association National Center: http://www.americanheart.org 1. In the top header, click ? Conditions? . 2. In the top header, click ? high blood pressure.? 3. For a printable blood pressure tracker, scroll toward the bottom of the page to Related Tools, and click ? HBP Trackers.? 0-218-PLA-USA-1 or ( ) National Heart, Lung and Blood [place]: http://www.nhlbi.nih.gov/health/infoctr/index.htm Exercise 5X per week (30 min per time) Exercise No Rere Kaufman Note: The [place] College of Sports Medicine recommends all adults [...] how to manage your diabetes: ? ? [place] Diabetes Association: www.diabetes.org 0-675-WDAAQQFZ ( ) ? ? [place] Diabetes Association-Support group line: www.professional.diabetes.org ? ? [place] Heart Association: www.heart.org or 1-966-FRA-USA-1 ( ) [employer] MyPlate: www.Cooperation Technologymyplate.gov Have labs drawn Lifestyle Rere Vargas Note: [...] on filedocumented in this encounter Care Teams Grinder Set Up Operator Surface Relationship Specialty [place] [address] [place] [address] PCP - General Internal Medicine 01/26/22 [place] [address] [place] [address] PCP - [facility] 02/19/22 [place] [address] [facility] [address] [place] [address] Ophthalmology 04/06/16 Fawn Ramon DPM [address] [place] [address] Podiatry 01/24/21 documented as of this encounter
--- OUTSIDE RECORDS SUMMARY | 2024-04-03 00:57 | XMS_ITS | Referral Summary ---
Author Organization [facility] Address [address] [place] [address] Care Team Providers Care Building Repair Maintenance Supervisor Name Role Phone Ricco Andrew MD Unavailable [phone] Fawn Ramon DPKae Unavailable [phone] Chris Aden MD Primary Care Provider [phone] Chris Aden MD Unavailable Source Comments [facility],non-owned Affiliates and Associated Physician Practices is amultiple site organization consisting of ambulatory clinics and hospital sitesin [place], [place], [place] and [place]. This disclosure is being madepursuant to the Care Everywhere program and may not contain all information available regarding this patient. Last updated 17.[facility] Encounters Date Type Department Care Team Description 03/30/[address] [facility] [id number] [place] [address] [address] [place], [place] [id number] Chris Aden MD Home Health; Order 03/30/[address] [facility] [id number] [place] [address] [address] [place] [address] Chris Aden MD Refill Request 03/09/[address] [facility] [id number] [place] [address] [address] [place] [address] Chris Aden MD SHAKING; Fatigue; Slurred Speech; Chest Pain 03/06/2024 2:30 PM BATTERY CONTAINER INSPECTOR Office Visit 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); Alzheimer's dementia without behavioral disturbance ([facility]) 02/28/2024 Travel 02/28/2024 Transitional Care [facility] - Care Coordination [address] [place] [address] Clarice Hansen RNhydraulic lift operator 02/23/2024 2:47 PM BATTERY CONTAINER INSPECTOR - 02/26/2024 4:21 PM BATTERY CONTAINER INSPECTOR Hospital Encounter [address] [address] [place] [address] Britton Llamas, Datar, MD Jessica Lazcano Imran A, MD Internal Medicine Discharge Disposition: Home or Self Care 02/23/2024 Travel 02/23/2024 2:00 PM BATTERY CONTAINER INSPECTOR Office Visit [facility] [id number] [place] [address] Evelin Blanco, BILLET CHECKER-RANGE MOUNTER Hypotension, unspecified hypotension type (Primary Dx) 02/21/[address] [address] Chris Aden MD Record Request 02/18/[address] [address] Chris Aden MD Refill Request 02/14/[address] [address] Chris Aden MD Update; Pneumonia 02/11/2024 Orders Only [address] [address] Chris Aden MD 02/09/2024 1:15 PM BATTERY CONTAINER INSPECTOR Clinical Support [address] [address] Need for vaccination ; Need for prophylactic vaccination and inoculation against influenza 02/09/2024 11:30 AM BATTERY CONTAINER INSPECTOR Office Visit [address] [address] Chris Aden MD Abnormal gait (Primary Dx); [...] dementia without behavioral disturbance (HCC) 01/25/[address] [address] Chris Aden MD Injury Elbow 01/08/[address] [address] hCris Aden MD Refill Request from Last 3 Months Allergies Active Allergy Reactions Criticality Noted Date [...] 10/27/2022 10/27/2022 Laceration 05/05/2011 10/27/2022 12/08/2022 Immunizations Name Administration Dates Next Due COVID [...] Recorded Patient Health Questionnaire-2 Score 2 03/06/2024 [facility] [place] of Occupat ional Health - Occupational Stress [...] any time in the past 12 [facility], were you homeless or living in a nursing home (including now)? No 02/24/2024 Sex and Gender Information Value Date Recorded Sex Assigned at Male 01/22/2023 1:45 PM CDT Gender Identity Male 01/22/2023 1:45 PM CDT Sexual Orientation Straight 01/22/2023 1: 45 PM CDT Last Filed Vital Signs Vital Sign Reading Time Taken Comments Blood Pressure 96/68 03/06/2024 2:34 PM BATTERY CONTAINER INSPECTOR Pulse 70 03/06/2024 2:34 PM BATTERY CONTAINER INSPECTOR Temperature 36.7 ??C (98 ??F) 03/06/2024 2:34 PM BATTERY CONTAINER INSPECTOR Respiratory Rate 18 03/06/2024 2:34 PM BATTERY CONTAINER INSPECTOR Oxygen Saturation 96% 03/06/2024 2:34 PM BATTERY CONTAINER INSPECTOR Inhaled Oxygen Concentration - - Weight 65.8 kg (145 lb) 02/24/2024 12:31 AM BATTERY CONTAINER INSPECTOR Height 170.2 cm (5' 7) 03/06/2024 2:34 PM BATTERY CONTAINER INSPECTOR Body Mass Index 22.71 02/24/2024 12:31 AM BATTERY CONTAINER INSPECTOR Plan of Treatment Upcoming Encounters Date Type Department Care Team (Late st Contact Info) Description 04/07/2024 10:00 AM BATTERY CONTAINER INSPECTOR Office Visit [facility] [address] [facility] [address] [place] [address] Evelin Blanco, BILLET CHECKER-RANGE MOUNTER [address] [facility] [address] [place] [address] 06/06/2024 2:[address] PM [address]T Office Visit [facility] [address] [facility] [address] [place] [address] [place] [address] [place] [address] Goals Goal Patient Goal Type Associated Problems Recent Progress Patient-Stated? Author Blood Pressure < 140/90 Blood Pressure 96/68(2023 2:34 PM BATTERY CONTAINER INSPECTOR) Rere Vargas Note: Caring for Your High [...] Where can I go for more information? [place] [employer] Association National Center: http://www.americanheart.org 1. In the top header, click ? Conditions? . 2. In the top header, click ? high blood pressure.? 3. For a printable blood pressure tracker, scroll toward the bottom of the page to Related Tools, and click ? HBP Trackers.? 5-729-BGC-USA-1 or ( ) National Heart, Lung and Blood [place]: http://www.nhlbi.nih.gov/health/infoctr/index.htm Blood Pressure < 140/90 Blood Pressure 96/68(2023 2:34 PM BATTERY CONTAINER INSPECTOR) Rere Vargas Note: Caring for Your High [...] Where can I go for more information? [place] Heart Association National Center: http://www.americanheart.org 1. In the top header, click ? Conditions? . 2. In the top header, click ? high blood pressure.? 3. For a printable blood pressure tracker, scroll toward the bottom of the page to Related Tools, and click ? HBP Trackers.? 5-917-ZBI-USA-1 or ( ) National Heart, Lung and Blood [place]: http://www.nhlbi.nih.gov/health/infoctr/index.htm Blood Pressure < 140/90 Blood Pressure 96/68(2023 2:34 PM BATTERY CONTAINER INSPECTOR) No Cassie Marie Note: Caring for Your [...] Where can I go for more information? [place] Heart Association National Center: http://www.americanheart.org 1. In the top header, click ? Conditions? . 2. In the top header, click ? high blood pressure.? 3. For a printable blood pressure tracker, scroll toward the bottom of the page to Related Tools, and click ? HBP Trackers.? 4-856-YXR-USA-1 or ( ) National Heart, Lung and Blood [place]: http://www.nhlbi.nih.gov/health/infoctr/index.htm Exercise 5X per week (30 min per time) Exercise No Rere Kaufman Note: The [place] [employer] recommends all adults [...] how to manage your diabetes: ? ? [place] Diabetes Association: www.diabetes.org 3-280-WGGXIBRU ( ) ? ? [place] Diabetes Association-Support group line: www.professional.diabetes.org ? ? [place] Heart Association: www.heart.org or 6-313-WTV-USA-1 ( ) [employer] MyPlate: www.Domeemyplate.gov Have labs drawn Lifestyle No Kaufman, Lacheina Note: Caring for Your Diabetes Routine Testing [...] POINT OF CARE Routine 02/25/2024 6:04 PM BATTERY CONTAINER INSPECTOR SARS-COV-2 (COVID-19) RAPID Routine 02/25/2024 3:12 PM BATTERY CONTAINER INSPECTOR Wrist arthritis GLUCOSE - POINT OF CARE Routine 02/25/2024 12:05 PM BATTERY CONTAINER INSPECTOR BASIC METABOLIC PANEL (CALCIUM TOTAL) AM Draw 02/25/2024 4:14 AM BATTERY CONTAINER INSPECTOR Weight loss, abnormal CARDIAC EKG ORDER 02/24/2024 6:3 5 PM BATTERY CONTAINER INSPECTOR GLUCOSE - POINT OF CARE Routine 02/24/2024 5:59 PM BATTERY CONTAINER INSPECTOR URINALYSIS REFLEX MICROSCOPIC REFLEX CULTURE STAT 02/24/2024 5:43 AM BATTERY CONTAINER INSPECTOR TSH REFLEX FREE T4 Routine 02/24/2024 5: 38 AM BATTERY CONTAINER INSPECTOR Hypotension, unspecified hypotension type Adult failure to thrive Volume depletion MAGNESIUM BLOOD Routine 02/24/2024 5:38 AM BATTERY CONTAINER INSPECTOR Hypotension, unspecified hypotension type Adult failure to thrive Volume depletion CBC W/O DIFFERENTIAL Routine 02/24/2024 5:38 AM BATTERY CONTAINER INSPECTOR Hypotension, unspecified hypotension type Adult failure to thrive Volume depletion BASIC METABOLIC PANEL (CALCIUM TOTAL) Routine 02/24/2024 5:38 AM BATTERY CONTAINER INSPECTOR Hypotension, unspecified hypotension type Adult failure to thrive Volume depletion LACTIC ACID BLOOD REFLEX TO REPEAT Timed STAT 02/24/2024 5:38 AM BATTERY CONTAINER INSPECTOR TROPONIN-I HIGH SENSITIVE REFLEX 1HOUR Timed 02/23/2024 5:20 PM BATTERY CONTAINER INSPECTOR XR CHEST 1VW PORTABLE STAT 02/23/2024 5:01 PM BATTERY CONTAINER INSPECTOR Hypotension, unspecified hypotension type CBC W AUTO DIFFERENTIAL STAT 02/23/2024 4:51 PM BATTERY CONTAINER INSPECTOR TROPONIN-I HIGH SENSITIVE BASELINE + 1HR STAT 02/23/2024 4:10 PM BATTERY CONTAINER INSPECTOR LIPASE BLOOD STAT 02/23/2024 4:10 PM BATTERY CONTAINER INSPECTOR MAGNESIUM BLOOD STAT 02/23/2024 4:10 PM BATTERY CONTAINER INSPECTOR LACTIC ACID BLOOD REFLEX TO REPEAT STAT 02/23/2024 4:10 PM BATTERY CONTAINER INSPECTOR COMPREHENSIVE METABOLIC PANEL STAT 02/23/2024 4:10 PM BATTERY CONTAINER INSPECTOR EKG 12-LEAD STAT 02/23/2024 3:30 PM BATTERY CONTAINER INSPECTOR Hypotension, unspecified hypotension type HEMOGLOBIN A1C - POINT OF CARE (AMB) Routine 12/02/2023 2:32 PM CDT Type 2 diabetes mellitus with hyperglycemia, without long-term current use of insulin (HCC) HM DIABETES EYE EXAM Routine 04/04/2020 from Last 3 Months or Most Recently Relevant to Health Maintenance Results * (ABNORMAL) GLUCOSE - POINT OF CARE (02/25/2024 6:04 PM BATTERY CONTAINER INSPECTOR) Only the most recent of3 resultswithin the time period is included. Glucose WB/POC 225(H) 70 - 99 mg/dL 02/25/2024 10:00 PM BATTERY CONTAINER INSPECTOR [facility] Specimen Type Cap Fingerstick 2023 10:00 PM BATTERY CONTAINER INSPECTOR [facility] Blood BLOOD SPECIMEN / Unknown 02/25/2024 6:04 PM BATTERY CONTAINER INSPECTOR 02/25/2024 10:00 PM BATTERY CONTAINER INSPECTOR Osiel Lopez MD LAB - POINT OF CARE ORDERABLES Performing Organization Address [facility] Co de Phone Number [facility] [address] [place] [address] * SARS-COV-2 (COVID-19) RAPID (02/25/2024 3:12 PM BATTERY CONTAINER INSPECTOR) COVID-19 PCR Not detected Not detected 02/25/20 24 4:02 PM BATTERY CONTAINER INSPECTOR [facility] Microbiology SPECIMEN FROM NASOPHARYNGEAL STRUCTURE / Unknown Collection / Unknown 02/25/2024 3:12 PM BATTERY CONTAINER INSPECTOR 02/25/2024 3:27 PM BATTERY CONTAINER INSPECTOR Narrative [facility] - 02/25/2024 4:02 PM BATTERY CONTAINER INSPECTOR The [employer] Xpert Xpress SARS-COV-2 has been authorized by [...] - MICROBIOLOGY O RDERABLES Performing Organization Address [facility] Co de Phone Number [facility] [address] [place] [address] * (ABNORMAL) BASIC METABOLIC PANEL (CALCIUM TOTAL) (02/25/2024 4:14 AM BATTERY CONTAINER INSPECTOR) Only the most recent of2 resultswithin the time period is included. Glucose 192(H) 70 - 99 mg/dL 02/25/2024 6:02 AM BATTERY CONTAINER INSPECTOR [facility] Sodium 132(L) 136 - 145 mmol/L 02/25/2024 6:02 AM [facility] Potassium 4.2 3.5 - 5.1 mmol/L 02/25/2024 6:02 AM [facility] Chloride 104 98 - 107 mmol/L 02/25/2024 6:02 AM [facility] CO2 20(L) 22 - 29 mmol/L 02/25/2024 6:02 AM [facility] Calcium 8.3(L) 8.4 - 10.4 mg/dL 02/25/2024 6:02 AM [facility] Anion Gap 8 6 - 16 mmol/L 02/25/2024 6:02 AM [facility] BUN 12 7 - 26 mg/dL 02/25/2024 6:02 AM [facility] Creatinine 0.87 0.72 - 1.25 mg/dL 02/25/2024 6:02 AM [facility] eGFR by CKD-EPI 84(L) >=90 mL/min/1.7 3 m2 02/25/2024 6:02 AM [facility] Blood BLOOD SPECIMEN / Unknown Venipuncture / Unknown 02/25/2024 4:14 AM BATTERY CONTAINER INSPECTOR 02/25/2024 5:43 AM BATTERY CONTAINER INSPECTOR Osiel Lopez MD LAB - CHEMISTRY ORDE [facility] Organization Address City/State/ZIP Co de Phone Number [facility] [address] [place] [address] * CARDIAC EKG ORDER (02/24/2024 6:35 PM BATTERY CONTAINER INSPECTOR) Narrative 02/24/2024 6:35 PM BATTERY CONTAINER INSPECTOR Ordered by an unspecified provider. Scanned Document CARDIAC SERVICES ORD ERABLES * (ABNORMAL) URINALYSIS REFLEX MICROSCOPIC REFLEX CULTURE (02/24/2024 5:43 AM BATTERY CONTAINER INSPECTOR) Color UA Yellow Yellow, Straw 02/24/2024 6:53 AM [facility] Clarity UA Clear Clear 02/24/2024 6:53 AM [facility] Glucose UA Normal Normal 02/24/2024 6:53 AM [facility] Bilirubin UA Negative Negative 02/24/2024 6:53 AM BATTERY CONTAINER INSPECTOR [facility] Ketone UA Negative Negative 02/24/2024 6:53 AM BATTERY CONTAINER INSPECTOR [facility] Specific [place] UA 1.023 1.005 - 1.030 02/24/2024 6:53 AM BATTERY CONTAINER INSPECTOR [facility] Blood UA Negative Negative 02/24/2024 6:53 AM BATTERY CONTAINER INSPECTOR [facility] pH UA 5.5 5.0 - 9.0 pH 02/24/2024 6:53 AM [facility] Protein UA Trace(A) Negative 02/24/2024 6:53 AM BATTERY CONTAINER INSPECTOR [facility] Urobilinogen UA Normal Normal mg/dL 024 6:53 AM BATTERY CONTAINER INSPECTOR [facility] Nitrite UA Negative Negative 02/24/2024 6:53 AM BATTERY CONTAINER INSPECTOR [facility] Leukocyte UA Negative Negative 02/24/2024 6:53 AM [facility] Urine URINE SPECIMEN OBTAINED BY CLEAN CATCH PROCEDURE / Unknown Collection / Unknown 02/24/2024 5:43 AM BATTERY CONTAINER INSPECTOR 02/24/2024 6:44 AM BATTERY CONTAINER INSPECTOR Narrative [facility] - 02/24/2024 6:53 AM BATTERY CONTAINER INSPECTOR Britton Llamas LAB - URINALYSIS ORD ERABLES Performing Organization Address [facility] Co de Phone Number [facility] [address] [place] [address] * LACTIC ACID BLOOD REFLEX TO REPEAT (02/24/2024 5:38 AM BATTERY CONTAINER INSPECTOR) Only the most recent of2 resultswithin the time period is included. Lactic Acid 1.0 <=2.0 mmol/L 02/24/2024 6:22 AM [facility] Blood BLOOD SPECIMEN / Unknown Venipuncture / Unknown 02/24/2024 5:38 AM BATTERY CONTAINER INSPECTOR 02/24/2024 5:39 AM BATTERY CONTAINER INSPECTOR Britton [facility] DO LAB - CHEMISTRY ORDE RABLES Performing Organization Address [facility]/ZIP Co de Phone Number [facility] [address] [place] [address] * TSH REFLEX FREE T4 (02/24/2024 5:38 AM BATTERY CONTAINER INSPECTOR) Pathologist [facility] TSH 2.611 0.350 - 4.940 uIU/mL 02/24/2024 6:26 AM [facility] Blood BLOOD SPECIMEN / Unknown Venipuncture / Unknown 02/24/2024 5:38 AM BATTERY CONTAINER INSPECTOR 02/24/2024 5:38 AM BATTERY CONTAINER INSPECTOR Navdeep Nazario DO LAB - CHEMISTRY OR DERABLES Performing Organization Address City/State/[facility] Co de Phone Number [facility] [address] [place] [address] * (ABNORMAL) CBC W/O DIFFERENTIAL (02/24/2024 5:38 AM BATTERY CONTAINER INSPECTOR) [facility] WBC 6.7 4.0 - 10.7 x10E9/L 02/24/2024 5:46 AM [facility] RBC Count 3.53(L) 4.30 - 5.80 x10E12/L 02/24/2024 5:46 AM [facility] Hemoglobin 11.0(L) 13.3 - 17.5 g/dL 02/24/2024 5:46 AM [facility] Hematocrit 33.7(L) 38.7 - 51.1 % 02/24/2024 5:46 AM [facility] MCV 95.5 80.0 - 98.0 fL 02/24/2024 5:46 AM [facility] MCH 31.2 26.7 - 33.6 pg 02/24/2024 5:46 AM [facility] MCHC 32.6 31.7 - 36.3 g/dL 02/24/2024 5:46 AM [facility] RDW-CV 13.5 11.3 - 14.8 % 02/24/2024 5:46 AM [facility] Platelet Count 320 150 - 420 x10E9/L 02/24/2024 5:46 AM [facility] MPV 9.3 7.8 - 11.4 fL 02/24/2024 5:46 AM [facility] Blood BLOOD SPECIMEN / Unknown Venipuncture / Unknown 02/24/2024 5:38 AM BATTERY CONTAINER INSPECTOR 02/24/2024 5:38 AM BATTERY CONTAINER INSPECTOR Navdeep Nazario DO LAB - HEMATOLOGY O RDERABLES Performing Organization Address [facility] Co de Phone Number [facility] [address] [place] [id number] * MAGNESIUM BLOOD (02/24/2024 5:38 AM BATTERY CONTAINER INSPECTOR) Only the most recent of2 resultswithin the time period is included. Magnesium 1.8 1.6 - 2.6 mg/dL 02/24/2024 6:19 AM BATTERY CONTAINER INSPECTOR [facility] Blood BLOOD SPECIMEN / Unknown Venipuncture / Unknown 02/24/2024 5:38 AM BATTERY CONTAINER INSPECTOR 02/24/2024 5:38 AM BATTERY CONTAINER INSPECTOR Navdeep Nazario DO LAB - CHEMISTRY OR DERABLES Performing Organization Address [facility] de Phone Number [facility] [address] [place] [address] * TROPONIN-I HIGH SENSITIVE REFLEX 1HOUR (02/23/2024 5:20 PM BATTERY CONTAINER INSPECTOR) Troponin I High Sensitive <3 <=35 ng/L 02/23/2024 6:14 PM BATTERY CONTAINER INSPECTOR [facility] Delta Troponin I HS 02/23/2024 6:14 PM BATTERY CONTAINER INSPECTOR [facility] Comment:Result exceeds linea rity range. A delta value is unable to be calculated. Blood BLOOD SPECIMEN / Unknown Venipuncture / Unknown 02/23/2024 5:20 PM BATTERY CONTAINER INSPECTOR 02/23/2024 5:47 PM BATTERY CONTAINER INSPECTOR Britton Llamas DO LAB - CHEMISTRY ORDE RABLES Performing Organization Address [facility] Co de Phone Number [facility] [id number] [place] [address] * XR CHEST 1VW PORTABLE (02/23/2024 5:01 PM BATTERY CONTAINER INSPECTOR) Anatomical Region Laterality Modality Chest Computed Radiogr aphy 02/23/2024 5:05 PM BATTERY CONTAINER INSPECTOR Impressions 02/23/2024 5:06 PM BATTERY CONTAINER INSPECTOR IMPRESSION: No acute airspace infiltrate. > Interpreting Provider: Jacinda Peng MD on 02/23/2024 5:06 PM Narrative 02/23/2024 5:06 PM BATTERY CONTAINER INSPECTOR PROCEDURE: ??XR CHEST 1VW PORTABLE DATE/TIME OF [...] CBC W AUTO DIFFERENTIAL (02/23/2024 4:51 PM BATTERY CONTAINER INSPECTOR) WBC 9.3 4.0 - 10.7 x10E9/L 02/23/2024 5:05 PM BATTERY CONTAINER INSPECTOR [facility] RBC Count 3.49(L) 4.30 - 5.80 x10E12/L 02/23/2024 5:05 PM BATTERY CONTAINER INSPECTOR [facility] Hemoglobin 11.2(L) 13.3 - 17.5 g/dL 02/23/2024 5:05 PM BATTERY CONTAINER INSPECTOR [facility] Hematocrit 33.2(L) 38.7 - 51.1 % 02/23/2024 5:05 PM BATTERY CONTAINER INSPECTOR [facility] MCV 95.1 80.0 - 98.0 fL 02/23/2024 5:05 PM BATTERY CONTAINER INSPECTOR [facility] MCH 32.1 26.7 - 33.6 pg 02/23/2024 5:05 PM [facility] MCHC 33.7 31.7 - 36.3 g/dL 02/23/2024 5:05 PM [facility] RDW-CV 13.6 11.3 - 14.8 % 02/23/2024 5:05 PM [facility] Platelet Count 284 150 - 420 x10E9/L 02/23/2024 5:05 PM [facility] MPV 9.3 7.8 - 11.4 fL 02/23/2024 5:05 PM [facility] Neutrophil % 80.0(H) 41.0 - 74.0 % 02/23/2024 5:05 PM [facility] Lymphocyte % 9.5(L) 17.0 - 47.0 % 02/23/2024 5:05 PM [facility] Monocyte % 9.5 3.0 - 11.0 % 02/23/2024 5:05 PM [facility] Eosinophil % 0.1 0.0 - 7.0 % 02/23/2024 5:05 PM [facility] Basophil % 0.5 0.0 - 1.6 % 02/23/2024 5:05 PM [facility] Immature Granulocytes % 0.4 0.0 - 1.0 % 02/23/2024 5:05 PM [facility] Neutrophil Absolute 7.45 1.60 - 7.50 x10E9/L 02/23/2024 5:05 PM [facility] Lymphocyte Absolute 0.88(L) 1.00 - 4.40 x10E9/L 02/23/2024 5:05 PM [facility] Monocyte Absolute 0.88 0.15 - 1.00 x10E9/L 02/23/2024 5:05 PM [facility] Eosinophil Absolute 0.01 0.00 - 0.60 x10E9/L 02/23/2024 5:05 PM [facility] Basophil Absolute 0.05 0.00 - 0.13 x10E9/L 02/23/2024 5:05 PM [facility] Blood BLOOD SPECIMEN / Unknown Venipuncture / Unknown 02/23/2024 4:51 PM BATTERY CONTAINER INSPECTOR 02/23/2024 4:59 PM BATTERY CONTAINER INSPECTOR Britton Llamas LAB - HEMATOLOGY ORD ERABLES Performing Organization Address City/[facility]/ZIP Co de Phone Number [facility] [address] [place], [place] [id number] * TROPONIN-I HIGH SENSITIVE BASELINE + 1HR (02/23/2024 4:10 PM BATTERY CONTAINER INSPECTOR) [facility] Troponin I High Sensitive 4 <=35 ng/L 02/23/2024 5:03 PM BATTERY CONTAINER INSPECTOR [facility] Blood BLOOD SPECIMEN / Unknown Venipuncture / Unknown 02/23/2024 4:10 PM BATTERY CONTAINER INSPECTOR 02/23/2024 4:33 PM BATTERY CONTAINER INSPECTOR Britton Llamas DO LAB - CHEMISTRY ORDE RABLES Performing Organization Address [facility]/ZIP Co de Phone Number [facility] [address] [place] [address] * (ABNORMAL) COMPREHENSIVE METABOLIC PANEL (02/23/2024 4:10 PM BATTERY CONTAINER INSPECTOR) [facility] Glucose 178(H) 70 - 99 mg/dL 02/23/2024 4:59 PM [facility] Sodium 132(L) 136 - 145 mmol/L 02/23/2024 4:59 PM [facility] Potassium 4.7 3.5 - 5.1 mmol/L 02/23/2024 4:59 PM [facility] Chloride 99 98 - 107 mmol/L 02/23/2024 4:59 PM [facility] CO2 21(L) 22 - 29 mmol/L 02/23/2024 4:59 PM [facility] Calcium 8.9 8.4 - 10.4 mg/dL 02/23/2024 4:59 PM [facility] Anion Gap 12 6 - 16 mmol/L 02/23/2024 4:59 PM [facility] BUN 18 7 - 26 mg/dL 02/23/2024 4:59 PM [facility] [facility] Creatinine 1.19 0.72 - 1.25 mg/dL 02/23/2024 4:59 PM [facility] Alkaline Phosphatase 62 40 - 150 U/L 02/23/2024 4:59 PM [facility] ALT 15 0 - 55 U/L 02/23/2024 4:59 PM BATTERY CONTAINER INSPECTOR [facility] AST 16 5 - 34 U/L 02/23/2024 4:59 PM BATTERY CONTAINER INSPECTOR [facility] Protein Total 6.7 6.4 - 8.3 gm/dL 02/23/2024 4:59 PM BATTERY CONTAINER INSPECTOR [facility] Albumin 2.6(L) 3.4 - 5.0 gm/dL 02/23/2024 4:59 PM BATTERY CONTAINER INSPECTOR [facility] Bilirubin Total 0.4 0.2 - 1.2 mg/dL 02/23/2024 4:59 PM BATTERY CONTAINER INSPECTOR [facility] eGFR by CKD-EPI 59(L) >=90 mL/min/1.7 3 m2 02/23/2024 4:59 PM BATTERY CONTAINER INSPECTOR [facility] Blood BLOOD SPECIMEN / Unknown Venipuncture / Unknown 02/23/2024 4:10 PM BATTERY CONTAINER INSPECTOR 02/23/2024 4:33 PM BATTERY CONTAINER INSPECTOR [facility] Performing Organization Address [facility] Co de Phone Number [facility] [address] [place], [place] [phone] * LIPASE BLOOD (02/23/2024 4:10 PM BATTERY CONTAINER INSPECTOR) Pathologist [facility] Lipase <4 <60 U/L 02/23/2024 5:01 PM BATTERY CONTAINER INSPECTOR [facility] Blood BLOOD SPECIMEN / Unknown Venipuncture / Unknown 02/23/2024 4:10 PM BATTERY CONTAINER INSPECTOR 02/23/2024 4:33 PM BATTERY CONTAINER INSPECTOR [facility] LAB - CHEMISTRY [facility] Performing Organization Address [facility] de Phone Number [facility] [address] [place] [address] * EKG 12-LEAD (02/23/2024 3:30 PM BATTERY CONTAINER INSPECTOR) Ventricular Rate 106 BPM [facility] Atrial Rate 106 BPM [facility] P-R Interval 172 ms [facility] QRS Duration ms 128 ms [facility] Q-T Interval ms 364 ms [facility] QTC Calculation (Bezet) 483 ms [facility] Calculated P [place] 36 degrees [facility] Calculated R [place] 76 degrees [facility] Calculated T [place] 21 degrees [facility] Interpretation EKG Sinus tachycardia Right bundle branch block Abnormal ECG No previous ECGs available Confirmed by ÁNGEL HUNTLEY MD ([id number]) on 02/24/2024 9:02:56 AM [facility] 02/23/2024 3:30 PM BATTERY CONTAINER INSPECTOR 02/24/2024 9:02 AM BATTERY CONTAINER INSPECTOR Rachna Allan BILLET CHECKER-RANGE MOUNTER ECG ORDERA BLES [facility] * HEMOGLOBIN A1C - POINT OF CARE (AMB) (12/02/2023 2:32 PM CDT) Hemoglobin A1c POCT 6.1 % [facility] Expiration Date 2025-08-29 [facility] Lot # [id number] [facility] QC Verified Yes Yes [facility] Blood BLOOD SPECIMEN / Unknown 12/02/2023 2:32 PM CDT Chris Aden MD LAB - POINT OF CARE ORDERABLES [facility] [id number] [phone] * DIABETES EYE EXAM (04/04/2020) Scanned Document HEALTH MAINTENANCE from Last 3 Months or Most Recently Relevant to Health Maintenance Advance Directives * Full Code (Latest Code Status on File) Date Activated Date Inactivated Comments 02/24/2024 7:56 AM 02/26/2024 5:22 PM * Full Code Date Activated Date Inactivated Comments 02/23/2024 9:07 PM 02/24/2024 7:56 AM Care Teams Building Repair Maintenance Supervisor Relationship Specialty [place] [address] [place] [phone] PCP - General Internal Medicine 01/26/22 [place] [address] [place] [phone] PCP - [facility] 02/19/22 [place] [address] [address] [place] [phone] Ophthalmology 04/06/16 Fawn Ramon DPM [address] [place], [place] [phone] Podiatry 01/24/21
--- OUTSIDE RECORDS SUMMARY | 2024-04-03 00:58 | XMS_ITS | Encounter Summary ---
Author Organization [facility] Address [address] [facility] [place] [address] Care Team Providers Care Dough Panner Name Role Phone Ricco Andrew MD Unavailable [phone] Fawn Ramon DPM Unavailable [phone] Chris Aden MD Primary Care Provider [phone] Chris Aden MD Unavailable Reason for Visit * Reason Comments Refill Request Encounter Details Date Type Department Care Team (Late st Contact Info) Description 01/17/2023 Refill [facility] - Family Medicine [address] [place] [address] Chris Aden MD [address] [place] [address] Refill Request Social History Tobacco Use Types Packs/Day Years Used Date Smoking Tobacco: Never Passive Smoke Exposure: Current Smokeless Tobacco: Former Chew Quit: 01/02/2021 Alcohol Use Standard Drinks/Week Comments No 0 (1 standard drink = 0.6 oz pur e alcohol) PHQ-2 Answer Date Recorded PHQ2 TOTAL SCORE 0 10/27/2022 Sex and Gender Information Value Date Recorded Sex Assigned at Male 01/22/2023 1:45 PM CDT Gender Identity Male 01/22/2023 1:45 PM CDT Sexual Orientation Straight 01/22/2023 1: 45 PM CDT documented as of this encounter Plan of Treatment Upcoming Encounters Date Type Department Care Team (Late st Contact Info) Description 04/07/2024 10:00 AM SLAB POLISHER Office Visit [facility] [address] [facility] [address] [place] [address] Evelin Blanco APRN-CNP [address] [facility] [address] [place] [address] 06/06/2024 2:00 PM CDT Office Visit [facility] [address] [facility] [address] [place] [address] [place] [address] [facility] [address] [place] [address] documented as of this encounter Goals Goal Patient Goal Type Associated Problems Recent Progress Patient-Stated? Author Blood Pressure < 140/90 Blood Pressure 96/68(2023 2:34 PM SLAB POLISHER) Rere Vargas Note: Caring for Your High [...] Where can I go for more information? [place] Heart Association National Center: http://www.americanheart.org 1. In the top header, click ? Conditions? . 2. In the top header, click ? high blood pressure.? 3. For a printable blood pressure tracker, scroll toward the bottom of the page to Related Tools, and click ? HBP Trackers.? 0-285-DUP-USA-1 or ( ) National Heart, Lung and Blood [place]: http://www.nhlbi.nih.gov/health/infoctr/index.htm Blood Pressure < 140/90 Blood Pressure 96/68(2023 2:34 PM SLAB POLISHER) Rere Vargas Note: Caring for Your High [...] Where can I go for more information? [place] Heart Association National Center: http://www.americanheart.org 1. In the top header, click ? Conditions? . 2. In the top header, click ? high blood pressure.? 3. For a printable blood pressure tracker, scroll toward the bottom of the page to Related Tools, and click ? HBP Trackers.? 9-449-NWB-USA-1 or ( ) National Heart, Lung and Blood [place]: http://www.nhlbi.nih.gov/health/infoctr/index.htm Blood Pressure < 140/90 Blood Pressure 96/68(2023 2:34 PM SLAB POLISHER) Cassie Parks Note: Caring for Your High [...] Where can I go for more information? [place] Heart Association National Center: http://www.americanheart.org 1. In the top header, click ? Conditions? . 2. In the top header, click ? high blood pressure.? 3. For a printable blood pressure tracker, scroll toward the bottom of the page to Related Tools, and click ? HBP Trackers.? 7-511-PAY-USA-1 or ( ) National Heart, Lung and Blood [place]: http://www.nhlbi.nih.gov/health/infoctr/index.htm Exercise 5X per week (30 min per time) Exercise Rere Vargas Note: The [place] College of Sports Medicine recommends all adults [...] how to manage your diabetes: ? ? [place] Diabetes Association: www.diabetes.org 9-447-GCDZDNFZ ( ) ? ? [place] Diabetes Association-Support group line: www.professional.diabetes.org ? ? [place] Heart Association: www.heart.org or 8-919-QMP-USA-1 ( ) [place] MyPlate: www.Torbitmyplate.gov Have labs drawn Lifestyle No Rere Kaufman [...] on filedocumented in this encounter Care Teams Dough Panner Relationship Specialty [place] [address] [place] [address] PCP - General Internal Medicine 01/26/22 [place] [address] [place] [address] PCP - [facility] 02/19/22 [place] [address] [facility] [address] [place] [address] Ophthalmology 04/06/16 Fawn Ramon DPM [address] [place] [address] Podiatry 01/24/21 documented as of this encounter
--- OUTSIDE RECORDS SUMMARY | 2024-04-03 00:58 | XMS_ITS | Encounter Summary ---
Author Organization [facility] Address [address] [facility] [place] [address] Care Team Providers Care Banking Pin Adjuster Name Role Phone Ricco Andrew MD Unavailable [phone] Fawn Ramon DPM Unavailable [phone] Chris Aden MD Primary Care Provider [phone] Chris Aden MD Unavailable Encounter Details Date Type Department Care Team (Latest Contact Info) Description 09/03/2023 Travel Social History Tobacco Use Types Packs/Day Years Used Date Smoking Tobacco: Never Passive Smoke Exposure: Current Smokeless Tobacco: Former Chew Quit: 01/02/2021 Alcohol Use Standard Drinks/Week Comments No 0 (1 standard drink = 0.6 oz pur e alcohol) PHQ-2 Answer Date Recorded Patient Health Questionnaire-2 Score 0 06/01/2023 Sex and Gender Information Value Date Recorded Sex Assigned at Male 01/22/2023 1:45 PM CDT Gender Identity Male 01/22/2023 1:45 PM CDT Sexual Orientation Straight 01/22/2023 1: 45 PM CDT documented as of this encounter Plan of Treatment Upcoming Encounters Date Type Department Care Team (Late st Contact Info) Description 04/07/2024 10:00 AM VICE PRESIDENT LENDING Office Visit [facility] - Family Medicine [address] [facility] [address] [place] [address] Evelin Blanco, JOSETTE-DENIS [address] [facility] [address] [place] [address] 06/06/2024 2:00 PM CDT Office Visit [facility] Family Medicine [address] [facility] [address] [place] [address] [place] [address] [address] [place] [phone] documented as of this encounter Goals Goal Patient Goal Type Associated Problems Recent Progress Patient-Stated? Author Blood Pressure < 140/90 Blood Pressure 96/68(2023 2:34 PM VICE PRESIDENT LENDING) Rere Vargas Note: Caring for Your High [...] Where can I go for more information? [place] Heart Association National Center: http://www.americanheart.org 1. In the top header, click ? Conditions? . 2. In the top header, click ? high blood pressure.? 3. For a printable blood pressure tracker, scroll toward the bottom of the page to Related Tools, and click ? HBP Trackers.? 5-407-BSO-USA- or ( ) National Heart, Lung and Blood [place]: http://www.nhlbi.nih.gov/health/infoctr/index.htm Blood Pressure < 140/90 Blood Pressure 96/68(2023 2:34 PM VICE PRESIDENT LENDING) Rere Vargas Note: Caring for Your High [...] Where can I go for more information? [place] Heart Association National Center: http://www.americanheart.org 1. In the top header, click ? Conditions? . 2. In the top header, click ? high blood pressure.? 3. For a printable blood pressure tracker, scroll toward the bottom of the page to Related Tools, and click ? HBP Trackers.? 2-896-FGN-USA-1 or ( ) National Heart, Lung and Blood [place]: http://www.nhlbi.nih.gov/health/infoctr/index.htm Blood Pressure < 140/90 Blood Pressure 96/68(2023 2:34 PM VICE PRESIDENT LENDING) Cassie Parks Note: Caring for Your High [...] Where can I go for more information? [place] Heart Association National Center: http://www.americanheart.org 1. In the top header, click ? Conditions? . 2. In the top header, click ? high blood pressure.? 3. For a printable blood pressure tracker, scroll toward the bottom of the page to Related Tools, and click ? HBP Trackers.? 9-165-ECC-USA-1 or ( ) National Heart, Lung and Blood [place]: http://www.nhlbi.nih.gov/health/infoctr/index.htm Exercise 5X per week (30 min per time) Exercise Rere Vargas Note: The [place] College of Sports Medicine recommends all adults [...] how to manage your diabetes: ? ? [place] Diabetes Association: www.diabetes.org 8-390-BVZQSGBS ( ) ? ? [place] Diabetes Association-Support group line: www.professional.diabetes.org ? ? [place] Heart Association: www.heart.org or 6-991-IIW-USA-1 ( ) [employer] MyPlate: www.[place].iomyplate.gov Have labs drawn Lifestyle Rere Vargas Note: [...] on filedocumented in this encounter Care Teams Banking Pin Adjuster Relationship Specialty [place] [address] [place] [phone] PCP - General Internal Medicine 01/26/22 [place] [address] [place] [phone] PCP - Attributed-[facility] 02/19/22 [place] [address] [address] Ophthalmology 04/06/16 Fawn Ramon DPM [address] [place] [address] Podiatry 01/24/21 documented as of this encounter
--- OUTSIDE RECORDS SUMMARY | 2024-04-03 00:58 | XMS_ITS | Encounter Summary ---
Author Organization [facility] Address [address] [facility] [address] Care Team Providers Care Furniture Removalist Name Role Phone Ricco Andrew MD Unavailable [phone] Fawn Ramon DPM Unavailable [phone] Chris Aden MD Primary Care Provider [phone] Chris Aden MD Unavailable Reason for Visit * Reason Comments Refill Request Encounter Details Date Type Department Care Team (Late st Contact Info) Description 01/08/2024 Refill [facility] - Family Medicine [address] [place] [address] Chris Aden MD [address] [place] [address] Refill Request Social History Tobacco Use [...] st Contact Info) Description 04/07/2024 10:00 AM SAFETY DEPOSIT CLERK Office Visit [facility] [address] [facility] [address] [place] [address] Chayodevin EvelinNIKITA [address] [facility] [address] [place] [address] 06/06/2024 2:00 PM CDT Office Visit [facility] [address] [facility] [address] [place] [address] [place] [address] [facility] [address] [place] [address] documented as of this encounter Goals Goal Patient Goal Type Associated Problems Recent Progress Patient-Stated? Author Blood Pressure < 140/90 Blood Pressure 96/68(2023 2:34 PM SAFETY DEPOSIT CLERK) Rere Vargas Note: Caring for Your [...] Where can I go for more information? [place] Heart Association National Center: http://www.americanheart.org 1. In the top header, click ? Conditions? . 2. In the top header, click ? high blood pressure.? 3. For a printable blood pressure tracker, scroll toward the bottom of the page to Related Tools, and click ? HBP Trackers.? 9-416-TVQ-USA-1 or ( ) National Heart, Lung and Blood [place]: http://www.nhlbi.nih.gov/health/infoctr/index.htm Blood Pressure < 140/90 Blood Pressure 96/68(2023 2:34 PM SAFETY DEPOSIT CLERK) Rere Vargas Note: Caring for Your [...] Where can I go for more information? [place] Heart Association National Center: http://www.americanheart.org 1. In the top header, click ? Conditions? . 2. In the top header, click ? high blood pressure.? 3. For a printable blood pressure tracker, scroll toward the bottom of the page to Related Tools, and click ? HBP Trackers.? 1-409-NHU-USA-1 or ( ) National Heart, Lung and Blood [place]: http://www.nhlbi.nih.gov/health/infoctr/index.htm Blood Pressure < 140/90 Blood Pressure 96/68(2023 2:34 PM SAFETY DEPOSIT CLERK) Cassie Parks Note: Caring for Your [...] Where can I go for more information? [place] Heart Association National Center: http://www.americanheart.org 1. In the top header, click ? Conditions? . 2. In the top header, click ? high blood pressure.? 3. For a printable blood pressure tracker, scroll toward the bottom of the page to Related Tools, and click ? HBP Trackers.? 4-315-FFV-USA-1 or ( ) National Heart, Lung and Blood [place]: http://www.nhlbi.nih.gov/health/infoctr/index.htm Exercise 5X per week (30 min per time) Exercise Rere Vargas Note: The [place] College of Sports Medicine recommends all adults [...] how to manage your diabetes: ? ? [place] Diabetes Association: www.diabetes.org 7-965-VIZHWXQW ( ) ? ? [place] Diabetes Association-Support group line: www.professional.diabetes.org ? ? [place] Heart Association: www.heart.org or 7-702-YFH-USA-1 ( ) [employer] MyPlate: www.Whyteboardmyplate.gov Have labs drawn Lifestyle No Rere Kaufman [...] on filedocumented in this encounter Care Teams Furniture Removalist Relationship Specialty [place] [address] [place] [address] PCP - General Internal Medicine 01/26/22 [place] [address] [place] [address] PCP - [facility] 02/19/22 [place] [address] [facility] [address] [place] [address] Ophthalmology 04/06/16 Fawn Ramon DPM [address] [place] [address] Podiatry 01/24/21 documented as of this encounter
--- OUTSIDE RECORDS SUMMARY | 2024-04-03 00:58 | XMS_ITS | Encounter Summary ---
Author Organization [facility] Address [address] [facility] [place] [address] Care Team Providers Care Laborer Plumbing Name Role Phone Ricco Andrew MD Unavailable [phone] Fawn Ramon DPM Unavailable [phone] Chris Aden MD Primary Care Provider [phone] Chris Aden MD Unavailable Reason for Visit * Reason Comments ER UC Follow-up Patient's daughter s tates patient was taken to hospital because his urine was very yellow with a strong odor and Wednesday patient tried to step down and partially fainted and had been in and out, so ambulance was called because he was pale and disoriented. Syncope Encounter Details Date Type Department Care Team (Late st Contact Info) Description 02/26/2023 1:20 PM GRAY TENDER Office Visit [facility] - Family Medicine [id number] [place] [address] Evelin Blanco, OPERATIONS WELDER-SLASHER HAND [address] [place] [address] Acute cystitis without hematuria (Primary Dx) Social History Tobacco Use Types Packs/Day Years Used Date Smoking Tobacco: Never Passive Smoke Exposure: Current Smokeless Tobacco: Former Chew Quit: 01/02/2021 Tobacco Cessation:Counseling Given: Not Answered Alcohol Use Standard Drinks/Week Comments No 0 (1 standard drink = 0.6 oz pur e alcohol) PHQ-2 Answer Date Recorded Patient Health Questionnaire-2 Score 0 02/26/2023 Sex and Gender Information Value Date Recorded Sex Assigned at Male 01/22/2023 1:45 PM CDT Gender Identity Male 01/22/2023 1:45 PM CDT Sexual Orientation Straight 01/22/2023 1: 45 PM CDT documented as of this encounter Last Filed Vital Signs Vital Sign Reading Time Taken Comments Blood Pressure 116/62 02/26/2023 1:31 PM GRAY TENDER Pulse 89 02/26/2023 1:31 PM GRAY TENDER Temperature 36.7 ??C (98 ??F) 02/26/2023 1:31 PM GRAY TENDER Respiratory Rate 18 02/26/2023 1:31 PM GRAY TENDER Oxygen Saturation 99% 02/26/2023 1:31 PM GRAY TENDER Inhaled Oxygen Concentration - - Weight 71.2 kg (157 lb) 02/26/2023 1:31 PM GRAY TENDER Height 170.2 cm (5' 7) 02/26/2023 1:31 PM GRAY TENDER Body Mass Index 24.59 02/26/2023 1:31 PM GRAY TENDER documented in this encounter Patient Instructions * Patient Instructions* Evelin Blanco APRN-CNP - 02/26/2023 1:54 PM GRAY TENDER We are checking a urinalysis with culture about 3 days after the antibiotic is completed. I will contact you with results. TENDER documented in this encounter Progress Notes * Evelin Blanco APRN-CNP - 02/26/2023 1:38 PM CST SUBJECTIVE: Mk Sanches is a 87 year old male here for: Chief Complaint Patient presents with ??? ER UC Follow-up Patient's daughter states patient was taken to hospital because his urine was very yellow with a strong odor and Wednesday patient tried to step down and partially fainted and had been in and out, so ambulance was called because he was pale and disoriented. ??? Syncope Past Medical History: Diagnosis Date ??? Benign hypertension with chronic kidney disease 02/05/2016 BP controlled off rx. resolved ??? Chronic renal failure ??? Dementia (CMS/HCC) ??? Dermatitis ??? DM (diabetes mellitus) (CMS/HCC) ??? HTN (hypertension) ??? Hx of rheumatic fever ??? Hypothyroid ??? Seasonal allergies ??? Trigger finger HPI: Pt was in the ER on 02-16-2023 at [facility] in [place] and they did not find any UTI and went due to being figidity and was slumped over and sleeping. When he got home he was agitated, wantedto drive to see his 2 boys and family went along with that. Then on 02-23-2023 they got him up to eat and he had been incontinent. Cleaned him up. He stood up and fainted, left leg bent up and the ankle bent down. Right was down. He did respond back finally and he knew where he was. Called 911 and came to ER. He was okay on arrival and he was responding well, got to ER and did an EEG on the brain, maybe one on the heart, had a catheterized specimen and they prescribed macrobid bid. Still on the macrobid. Acting much better more, some sleeping off and on as he has done. Got him up and fed. We do not have any information so pt is pulling it up on her phone for us to see. Urine culture grew out Ecoli susceptible to macrobid. Wbc was 11.4, Bun/Cr was 20/1.20, remaining labs were okay. Could not see any imaging, EKG Etc. Family thinks it is due to the uti and doing well now. Review of systems negative except as noted in the HPI Social History Tobacco Use ??? Smoking status: Never Passive exposure: Current ??? Smokeless tobacco: Former Types: Chew Quit date: 01/02/2021 Substance Use Topics ??? Alcohol use: No Family History Family history unknown: Yes Past Surgical History: Procedure Laterality Date ??? NEGATIVE SURGICAL HISTORY Current Outpatient Medications on File Prior to Visit Medication Sig Dispense Refill ??? Acetaminophen (TYLENOL ARTHRITIS PAIN PO) Take 500 mg by mouth Two times a week ??? DIONICIO ASPIRIN REGIMEN PO Take 81 mg by mouth once daily ??? Blood Glucose Monitoring Suppl (ONE TOUCH ULTRA 2) w/Device KIT Use 1 Each 2 times daily ??? [employer] Purelax 17 GM/SCOOP powder TAKE 1 CAPFUL (17G) BY MOUTH DISSOLVED IN 4-8 OZ OF WATER OR JUICE ONCE DAILY 510 g 3 ??? docusate sodium (Colace) 100 MG capsule TAKE 1 CAPSULE BY MOUTH BY MOUTH 2 TIMES DAILY REASONS:CONSTIPATION 60 capsule 5 ??? gabapentin (Neurontin) 300 MG capsule Take 1 (one) capsule by mouth at bedtime Reasons: Diabetes with Nerve Disease, Restless Leg Syndrome (Patient not taking: Reported on 02/26/2023) 90 capsule 0 ??? glipiZIDE (Glucotrol) 5 MG tablet Take 1 (one) tablet by mouth 2 times daily, before breakfast and supper Type 2 diabetes mellitus with diabetic retinopathyNoted 01/17/2021 [E11.319] 180 tablet 3 ??? ketoconazole (Nizoral) 2 % shampoo Apply to affected area Three times a week Reasons: Dandruff 120 mL 5 ??? levothyroxine (Synthroid) 75 MCG tablet Take 1 (one) tablet by mouth daily before breakfast 90 tablet 3 ??? memantine (Namenda) 5 MG tablet Take 1 (one) tablet by mouth 2 times daily 180 tablet 3 ??? nitrofurantoin monohyd macro crystals (Macrobid) 100 MG capsule Take 1 (one) capsule by mouth every 12 hours ??? ONE TOUCH ULTRASOFT LANCETS MISC Use 1 Each 2 times daily 33 lucy ??? ONETOUCH ULTRA TEST STRIPS test strip Use 1 strip once daily (One touch mini test strips) (Patient taking differently: Use 1 (one) strip 2 times daily (One touch mini test strips)) 100 strip 2 ??? Polyethylene Glycol 3350 1 packet mixed with 8 ounces of fluid Orally Once a day No current facility-administered medications on file prior to visit. Allergies Allergen Reactions ??? Ibuprofen Other HE HAS CKD AND SHOULD NOT TAKE NSAID'S ??? Septra Ds [Sulfamethoxazole W-Trimethoprim] Rash OBJECTIVE: Vitals: 02/26/23 1331 BP: 116/62 Pulse: 89 Resp: 18 Temp: 98 ??F (36.7 ??C) SpO2: 99% Weight: 71.2 kg (157 lb) Height: 1.702 m (5' 7) Body mass index is 24.59 kg/m??. General appearance - alert, well appearing, and in no distress Psych - alert and oriented to person, place, and time, normal affect Neck - trachea midline, no thyromegaly, supple, full range of motion Lymph - no significant lymphadenopathy in the head, neck nor supraclavicular region. Lungs - unlabored, clear to auscultation, no wheezes, rales or rhonchi, symmetric air entry Negative egophony, good anterior forced expiration without coarseness nor wheezing, negative fremitus. Heart - normal rate, regular rhythm, normal S1, S2, no murmurs, rubs, clicks or gallops, no edema, peripheral pulses normal, no carotid bruits. Abdomen - bowel sounds present, soft, nontender, nondistended, no masses or hepatosplenomegaly Extremities - unsteady gait, full range of motion, no clubbing nor cyanosis. Skin - warm, dry, no rashes in visible areas. Neuro - PERRLA, CN ll through Xll intact. ASSESSMENT Encounter Diagnosis Name Primary? Acute cystitis without hematuria Yes PLAN: Orders Placed This Encounter ??? CULTURE URINE Order Specific Question: Release to patient Answer: Immediate ??? URINALYSIS REFLEX TO MICROSCOPIC NO CULTURE Order Specific Question: Release to patient Answer: Immediate We are checking a urinalysis with culture about 3 days after the antibiotic is completed. I will contact you with results. Further recommendations pending the above results and patient's clinical course. Follow-up visit 06-01-2023 The patient indicates understanding of these issues and agrees with the plan. TENDER documented in this encounter Plan of Treatment Upcoming Encounters Date Type Department Care Team (Late st Contact Info) Description 04/07/2024 10:00 AM GRAY TENDER Office Visit [facility] [id number] [place] [address] [address] [place] [address] Evelin Blanco APRN-CNP [address] [place] [address] 06/06/2024 2:00 PM CDT Office Visit [facility] [id number] [place] [address] [address] [place], [place] [id number] [place] [address] [facility] [place] [id number] documented as of this encounter Goals Goal Patient Goal Type Associated Problems Recent Progress Patient-Stated? Author Blood Pressure < 140/90 Blood Pressure 96/68(2023 2:34 PM GRAY TENDER) Rere Vargas Note: Caring for Your High [...] Where can I go for more information? [place] [employer] Association National Center: http://www.americanheart.org 1. In the top header, click ? Conditions? . 2. In the top header, click ? high blood pressure.? 3. For a printable blood pressure tracker, scroll toward the bottom of the page to Related Tools, and click ? HBP Trackers.? 1-571-HRV-USA-1 or ( ) National Heart, Lung and Blood [place]: http://www.nhlbi.nih.gov/health/infoctr/index.htm Blood Pressure < 140/90 Blood Pressure 96/68(2023 2:34 PM GRAY TENDER) Rere Vargas Note: Caring for Your High [...] Where can I go for more information? [place] [employer] National Center: http://www.americanheart.org 1. In the top header, click ? Conditions? . 2. In the top header, click ? high blood pressure.? 3. For a printable blood pressure tracker, scroll toward the bottom of the page to Related Tools, and click ? HBP Trackers.? 0-377-QMG-USA-1 or ( ) National Heart, Lung and Blood [place]: http://www.nhlbi.nih.gov/health/infoctr/index.htm Blood Pressure < 140/90 Blood Pressure 96/68(2023 2:34 PM GRAY TENDER) Cassie Parks Note: Caring for Your High [...] Where can I go for more information? [place] [employer] National Center: http://www.americanheart.org 1. In the top header, click ? Conditions? . 2. In the top header, click ? high blood pressure.? 3. For a printable blood pressure tracker, scroll toward the bottom of the page to Related Tools, and click ? HBP Trackers.? 2-004-ISC-USA-1 or ( ) National Heart, Lung and Blood [place]: http://www.nhlbi.nih.gov/health/infoctr/index.htm Exercise 5X per week (30 min per time) Exercise No Rere Kaufman Note: The [place] [employer] recommends all adults [...] how to manage your diabetes: ? ? [place] Diabetes Association: www.diabetes.org 2-967-SVTPOFSH ( ) ? ? [place] Diabetes Association-Support group line: www.professional.diabetes.org ? ? [place] Heart Association: www.heart.org or 5-725-ODO-[place]-1 ( ) [place] My[employer]ate: www.DepotPointmyplate.gov Have labs drawn Lifestyle No Kaufman, Lacheina [...] Procedure Name Priority Date/Time Associated Diagnosis Comments CULTURE URINE Routine 03/02/2023 Acute cystitis without hematuria URINALYSIS REFLEX TO MICROSCOPIC NO CULTURE Routine 03/01/2023 Acute cystitis without hematuria documented in this encounter Results * CULTURE URINE (03/02/2023) Urine URINE SPECIMEN OBTAINED BY CLEAN CATCH PROCEDURE / Unknown 03/02/2023 Evelin Blanco APRN-SLASHER HAND LAB - MICROBIOL OGY ORDERABLES Performing Organization Address City/[facility]/ZIP Co de Phone Number OTHER LAB * URINALYSIS REFLEX TO MICROSCOPIC NO CULTURE (03/01/2023) Urine URINE SPECIMEN OBTAINED BY CLEAN CATCH PROCEDURE / Unknown 03/01/2023 Evelin Blanco APRN-SLASHER HAND LAB - URINALYSI S ORDERABLES OTHER LAB documented in this encounter Visit Diagnoses Diagnosis Acute cystitis without hematuria- Primary Acute cystitis documented in this encounter Care Teams Laborer Plumbing Relationship Specialty [place] [address] [place] [phone] PCP - General Internal Medicine 01/26/22 [place] [address] [place] [phone] PCP - [facility] 02/19/22 [place] [address] [facility] [address] [place] [address] Ophthalmology 04/06/16 Fawn Ramon DPM [address] [place] [address] Podiatry 01/24/21 documented as of this encounter
--- OUTSIDE RECORDS SUMMARY | 2024-04-03 00:58 | XMS_ITS | Encounter Summary ---
Author Organization [facility] Address [address] [facility] [place] [address] Care Team Providers Care Employment Coordinator Name Role Phone Ricco Andrew MD Unavailable [phone] Fawn Ramon DPM Unavailable [phone] Chris Aden MD Primary Care Provider [phone] Chris Aden MD Unavailable Reason for Referral * Home Health Care (Routine) - Closed Specialty Diagnoses / Procedures Referred By Contac t Referred To Contact Home Health Services Diagnoses Type 2 diabetes mellitus with hyperglycemia, without long-term current use of insulin (HCC) Hypothyroidism, adult Essential hypertension Alzheimer's dementia without behavioral disturbance (HCC) Chris Aden MD [id number] [place] [address] [address] [place] [address] [facility] Scheduling [address] [place] [address] Referral ID Status Reason Start Date Expiration Date V isits Requested Visits Authorized [id number] Closed Specialty Services Required 12/02/2023 12/01/2024 999 [id number] Reason for Visit * Reason Comments Follow-up Encounter Details Date Type Department Care Team (Latest Contact Info) Description 12/02/2023 2:00 PM CDT Office Visit [facility] - Family Medicine [id number] [place] [address] [address] [place] [address] [place] [address] [facility] [address] [phone] Type 2 diabetes mellitus with hyperglycemia, without long-term current use of insulin (HCC) (Primary Dx); Hypothyroidism, adult; 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, without long-term current use of insulin, unspecified retinopathy severity (HCC); Essential hypertension; Stage 3b chronic kidney disease (HCC); Alzheimer's dementia without behavioral disturbance (HCC); Vitamin D deficiency; Type 2 diabetes mellitus with stage 3 chronic kidney disease, without long-term current use of insulin, unspecified whether stage 3a or 3b CKD (HCC); Type 2 diabetes mellitus with diabetic neuropathy, without long-term current use of insulin (HCC); Hypertension associated with diabetes (HCC); Type 2 diabetes mellitus with hyperlipidemia (HCC); Diabetes mellitus due to underlying condition with stage 3 chronic kidney disease, without long-term current use of insulin, unspecified whether stage 3a or 3b CKD (HCC) Social History Tobacco Use Types Packs/Day [...] Sign Reading Time Taken Comments Blood Pressure 108/70 12/02/2023 2:25 PM CDT Pulse 48 12/02/2023 2:25 PM CDT Temperature 36.7 ??C (98 ??F) 12/02/2023 2:25 PM CDT Respiratory Rate 16 12/02/2023 2:25 PM CDT Oxygen Saturation 100% 12/02/2023 2:25 PM CDT Inhaled Oxygen Concentration - - Weight 66.1 kg (145 lb 12.8 oz) 12/02/2023 2:25 PM CDT Height 170.2 cm (5' 7) 12/02/2023 2:25 PM CDT Body Mass Index 22.84 12/02/2023 2:25 PM CDT documented in this encounter Progress Notes * Chris Aden MD - 12/02/2023 2:31 PM CDT SUBJECTIVE: Mk Sanches is a 88 year old male here today for Chief Complaint Patient presents with Follow-up Patient came in today follow-up for diabetes, hypothyroidism, hypertension, chronic kidney disease,dementia, vitamin-D deficiency Current Outpatient Medications Medication Sig Dispense Refill [...] diabetic retinopathyNoted 01/17/2021 [E11.319] 180 tablet 3 ketoconazole (Nizoral) 2 % shampoo APPLY TO [...] mouth 2 times daily 180 tablet 3 menthol-zinc oxide (Calmoseptine) 0.44-20.625 % ointment Apply [...] OBJECTIVE: BP Readings from Last 3 Encounters: 12/02/23 108/70 10/13/23 110/62 09/03/23 92/60 Wt Readings from Last 3 Encounters: 12/02/23 66.1 kg (145 lb 12.8 oz) 10/13/23 57.5 kg (126 lb 12.8 oz) 09/03/23 67.1 kg (148 lb) BP 108/70 (BP Location: Right arm, Patient Position: Sitting, BP Cuff Size: Adult) Pulse 48 Temp 98 ??F (36.7 ??C) (Temporal) Resp 16 Ht 1.702 m (5' 7) Wt 66.1 kg (145 lb 12.8 oz) SpO2 100% Body mass index is 22.84 kg/m??. Physical [...] Normal range of motion and neck supple. Neurological: General: No focal deficit present. Mental Status: He is alert and oriented to person, place, and time. Psychiatric: Mood and Affect: Mood normal. Behavior: Behavior normal. Thought Content: Thought content normal. Judgment: Judgment normal. . Screenings Future Falls: 15. Have you fallen in the last year?: (!) Yes 24A. Fall >2 x or injured from the fall?: (slid off the bed) Depression: PHQ-2: PHQ-9: ASSESSMENT: Encounter Diagnosis Name Primary? Type 2 diabetes mellitus with hyperglycemia, without long-term current use of insulin (HCC) Yes PLAN: Orders Placed This Encounter HEMOGLOBIN A1C - POINT OF CARE (AMB) Order Specific Question: Release to patient Answer: Immediate Previous notes reviewed the patient Medication reviewed the patient Labs and imaging reviewed the patient Discussed with the patient the finding plan treatment, agreed to the plan. Hemoglobin A1c today 6.1. -diabetes type 2 with hypertension, hyperlipidemia, chronic kidney disease, retinopathy, hyperglycemia, neuropathy, 1800 calories diabetic diet. Check the feet on daily basis looking for callus lesions Follow-up with ophthalmology for diabetic eye exam. Continue glipizide 5 mg p.o. twice a day. Discussed with the family to change glipizide to a different medication because there is high risk of hypoglycemia does not looked like the family is agreeable. Diabetes with hypertension: Low-salt diet Check blood pressure frequently bring the log visit. Diet control hypertension. Hyperlipidemia: Low-cholesterol diet encouraged Check fasting lipid next visit. Consider statin. Diabetes chronic kidney disease: Will monitor creatinine kidney function Drink plenty of fluid. Strict control blood sugar. Diabetes with retinopathy: Strict control blood sugar Follow-up with the ophthalmology for diabetic eye exam. Diabetes with hyperglycemia: Keep fasting blood sugar between 80-130 and 2 hours after each meal less than 180. Bring the log next visit. Diabetes with neuropathy: Strict control blood sugar. Fall precaution. Dementia: Continue Namenda 5 mg p.o. twice a day. His condition stable with no improvement. Vitamin-D deficiency: Continue vitamin-D 1000 units p.o. daily. Follow-up 6 months or as needed. Further recommendations pending the above results and patient's clinical coarse. The patient indicates understanding of these issues and agrees with the plan. No follow-ups on file. documented in this encounter Plan of Treatment Upcoming Encounters Date Type Department Care Team (Late st Contact Info) Description 04/07/2024 10:00 AM CAREER AGENT Office Visit [facility] [address] [facility] [address] [place] [address] Francis Evelin, CHEMICAL PROCESSING EQUIPMENT REPAIRER-[place] [address] [facility] [address] [place] [address] 06/06/2024 2:00 PM CDT Office Visit [facility] [address] [facility] [address] [place] [address] [place] [address] [facility] [address] [place] [address] Scheduled Referrals Name Type Priority Associated Diagnoses Orde r Schedule AMB REFERRAL TO HOME HEALTH CARE Outpatient Referral Routine Type 2 diabetes mellitus with hyperglycemia, without long-term current use of insulin (HCC) Hypothyroidism, adult Essential hypertension Alzheimer's dementia without behavioral disturbance (HCC) Ordered: 12/02/2023 documented as of this encounter Goals Goal Patient Goal Type Associated Problems Recent Progress Patient-Stated? Author Blood Pressure < 140/90 Blood Pressure 96/68(2023 2:34 PM CAREER AGENT) Rere Vargas Note: Caring for Your High [...] Where can I go for more information? [place] Heart Association National Center: http://www.americanheart.org 1. In the top header, click ? Conditions? . 2. In the top header, click ? high blood pressure.? 3. For a printable blood pressure tracker, scroll toward the bottom of the page to Related Tools, and click ? HBP Trackers.? 4-907-UHO-[place]-1 or ( ) National Heart, Lung and Blood [place]: http://www.nhlbi.nih.gov/health/infoctr/index.htm Blood Pressure < 140/90 Blood Pressure 96/68(2023 2:34 PM CAREER AGENT) Rere Vargas Note: Caring for Your High [...] Where can I go for more information? [place] Heart Association National Center: http://www.americanheart.org 1. In the top header, click ? Conditions? . 2. In the top header, click ? high blood pressure.? 3. For a printable blood pressure tracker, scroll toward the bottom of the page to Related Tools, and click ? HBP Trackers.? 9-378-NEI-[place]-1 or ( ) National Heart, Lung and Blood [place]: http://www.nhlbi.nih.gov/health/infoctr/index.htm Blood Pressure < 140/90 Blood Pressure 96/68(2023 2:34 PM CAREER AGENT) Cassie Parks Note: Caring for Your High [...] Where can I go for more information? [place] Heart Association National Center: http://www.americanheart.org 1. In the top header, click ? Conditions? . 2. In the top header, click ? high blood pressure.? 3. For a printable blood pressure tracker, scroll toward the bottom of the page to Related Tools, and click ? HBP Trackers.? 2-155-GWD-[place]-1 or ( ) National Heart, Lung and Blood [place]: http://www.nhlbi.nih.gov/health/infoctr/index.htm Exercise 5X per week (30 min per time) Exercise Rere Vargas Note: The [place] [employer] recommends all adults [...] how to manage your diabetes: ? ? [place] Diabetes Association: www.diabetes.org 5-950-TSABPLQT ( ) ? ? [place] Diabetes Association-Support group line: www.professional.diabetes.org ? ? [place] Heart Association: www.heart.org or 7-187-KDO-USA-1 ( ) [employer] MyPlate: www.Triporatimyplate.gov Have labs drawn Lifestyle Rere Vargas Note: [...] Procedure Name Priority Date/Time Associated Diagnosis Comments HEMOGLOBIN A1C W EAG Routine 12/02/2023 3:57 PM CDT Type 2 diabetes mellitus with hyperglycemia, without long-term current use of insulin (HCC) MICROALB/CREAT RATIO URINE RANDOM PANEL Routine 12/02/2023 3:57 PM CDT Type 2 diabetes mellitus with hyperglycemia, without long-term current use of insulin (HCC) VITAMIN D 25-HYDROXY Routine 12/02/2023 3:57 PM CDT Vitamin D deficiency CBC W/O DIFFERENTIAL Routine 12/02/2023 3:57 PM CDT Essential hypertension COMPREHENSIVE METABOLIC PANEL Routine 12/02/2023 3:57 PM CDT Essential hypertension TSH Routine 12/02/2023 3:57 PM CDT Hypothyroidism, adult HEMOGLOBIN A1C - POINT OF CARE (AMB) Routine 12/02/2023 2:32 PM CDT Type 2 diabetes mellitus with hyperglycemia, without long-term current use of insulin (HCC) documented in this encounter Results * TSH (12/02/2023 3:57 PM CDT) TSH 3.290 0.450 - 4.500 uIU/mL [facility] INSURANCE BILL Blood BLOOD SPECIMEN / Unknown 12/02/2023 3:57 PM CDT 12/02/2023 Narrative [facility] INSURANCE BILL - 12/03/2023 8:20 AM CDT Performed at: ??01 - [address] ??[id number] Chief Diversity Officer: Mike Davila PhD, Phone: ??[phone] Chris Aden MD LAB - CHEMISTRY MELYSSA CHAHAL [facility] INSURANCE BILL [address] [place] [address] * VITAMIN D 25-HYDROXY (12/02/2023 3:57 PM CDT) Vitamin D, 25 Hydroxy 66.1 30.0 - 100.0 ng/mL [facility] INSURANCE BILL Comment: Vitamin D deficiency has been defined by the [place] of Medicine and an Endocrine Society practice guideline as a level of serum 25-OH vitamin D less than 20 ng/mL (1,2). The Endocrine Society went on to further define vitamin D insufficiency as a level between 21 and 29 ng/mL (2). 1. IOM ([place] of Medicine). 2010. Dietary reference ?? intakes for calcium and D. [place]: The ?? National AcademPricing Assistant Press. 2. Iris MF, Daniel FAYE, Fabian FERRIS, et al. ?? Evaluation, treatment, and prevention of vitamin D ?? deficiency: an Endocrine Society clinical practice ?? guideline. JCEM. 2010; 96(7):1911-30. Blood BLOOD SPECIMEN / Unknown 12/02/2023 3:57 PM CDT 12/02/2023 Narrative [facility] INSURANCE BILL - 12/03/2023 8:20 AM CDT Performed at: ??01 - [address] ??[id number] Chief Diversity Officer: Mike Davila PhD, Phone: ??[phone] Chris Aden MD LAB - CHEMISTRY ORDE RABLES Performing Organization Address [facility] Co de Phone Number [facility] INSURANCE BILL [address] [place] [address] * MICROALB/CREAT RATIO URINE RANDOM PANEL (12/02/2023 3:57 PM CDT) Creatinine Urine 83.6 Not Estab. mg/dL [facility] [...] 7:12 AM CDT Performed at: ??01 - [facility] ??[id number] Chief Diversity Officer: Mike Davila PhD, Phone: ??[phone] Chris Aden MD LAB - URINE CHEMISTR Y ORDERABLES Performing Organization Address City/[facility]/ZIP Co de Phone Number [facility] INSURANCE BILL [address] [place] [address] * (ABNORMAL) HEMOGLOBIN A1C W EAG (12/02/2023 3:57 PM CDT) Pathologist [facility] Hemoglobin A1c 6.3(H) 4.8 - 5.6 % [facility] INSURANCE BILL Comment: ? Prediabetes: 5.7 - 6.4 ? Diabetes: >6.4 ? Glycemic control for adults with diabetes: <7.0 Estimated Average Glucose 134 mg/dL [facility] INSURANCE BILL Blood BLOOD SPECIMEN / Unknown 12/02/2023 3:57 PM CDT 12/02/2023 Narrative [facility] INSURANCE BILL - 12/03/2023 7:12 AM CDT Performed at: ?? - [facility] ??[id number] Chief Diversity Officer: Mike Davila PhD, Phone: ??[phone] Chris Aden MD LAB - CHEMISTRY MELYSSA CHAHAL [facility] INSURANCE BILL [address] [place] [address] * (ABNORMAL) CBC W/O DIFFERENTIAL (12/02/2023 3:57 PM CDT) Pathologist [facility] WBC 6.3 3.4 - 10.8 x10E3/uL [facility] INSURANCE BILL RBC 4.43 4.14 - 5.80 x10E6/uL [facility] INSURANCE BILL Hemoglobin 14.8 13.0 - 17.7 g/dL [facility] INSURANCE BILL Hematocrit 44.6 37.5 - 51.0 % [facility] INSURANCE BILL MCV 101(H) 79 - 97 fL [facility] INSURANCE BILL MCH 33.4(H) 26.6 - 33.0 pg [facility] INSURANCE BILL MCHC 33.2 31.5 - 35.7 g/dL [facility] INSURANCE BILL RDW 12.3 11.6 - 15.4 % [facility] INSURANCE BILL Platelet Count 279 150 - 450 x10E3/uL [facility] INSURANCE BILL Blood BLOOD SPECIMEN / Unknown 12/02/2023 3:57 PM CDT 12/02/2023 Narrative [facility] INSURANCE BILL - 12/03/2023 7:12 AM CDT Performed at: ??01 - [facility] [address] [facility], [place], [place] ??[id number] Chief Diversity Officer: Mike Davila PhD, Phone: ??[phone] Chris Aden MD LAB - HEMATOLOGY ORD ERABLES [facility] INSURANCE BILL [address] [place] [address] * (ABNORMAL) COMPREHENSIVE METABOLIC PANEL (12/02/2023 3:57 PM CDT) Glucose 174(H) 70 - 99 mg/dL [facility] INSURANCE BILL BUN 21 8 - 27 mg/dL [facility] INSURANCE BILL Creatinine 1.14 0.76 - 1.27 mg/dL [facility] INSURANCE BILL eGFR by CKD-EPI 63 >59 mL/min/1.7 3 [facility] INSURANCE BILL BUN/Creatinine Ratio 18 10 - 24 [facility] INSURANCE BILL Sodium 132(L) 134 - 144 mmol/L [facility] INSURANCE BILL Potassium 4.9 3.5 - 5.2 mmol/L [facility] INSURANCE BILL Chloride 93(L) 96 - 106 mmol/L [facility] INSURANCE BILL CO2 23 20 - 29 mmol/L [facility] INSURANCE BILL Calcium 9.7 8.6 - 10.2 mg/dL [facility] INSURANCE BILL Protein Total 7.4 6.0 - 8.5 g/dL [facility] INSURANCE BILL Albumin 4.4 3.7 - 4.7 g/dL [facility] INSURANCE BILL Globulin Total 3.0 1.5 - 4.5 g/dL [facility] INSURANCE BILL Bilirubin Total 0.3 0.0 - 1.2 mg/dL [facility] INSURANCE BILL Alkaline Phosphatase 79 44 - 121 IU/L [facility] INSURANCE BILL AST 20 0 - 40 IU/L [facility] INSURANCE BILL ALT 11 0 - 44 IU/L [facility] INSURANCE BILL Blood BLOOD SPECIMEN / Unknown 12/02/2023 3:57 PM CDT 12/02/2023 Narrative [facility] INSURANCE BILL - 12/03/2023 9:12 AM CDT Performed at: ??01 - [facility] [address] [place], [place] ??[id number] Chief Diversity Officer: Mike Davila PhD, Phone: ??[phone] Chris Aden MD LAB - CHEMISTRY ORDNatasha CHAHAL [facility] INSURANCE BILL [address] [place] [address] * HEMOGLOBIN A1C - POINT OF CARE (AMB) (12/02/2023 2:32 PM CDT) Hemoglobin A1c POCT 6.1 % [facility] Expiration Date 2025-08-29 [facility] Lot # [id number] [facility] QC Verified Yes Yes [facility] Blood BLOOD SPECIMEN / Unknown 12/02/2023 2:32 PM CDT Chris Aden MD LAB - POINT OF CARE ORDERABLES [facility] [address] [phone] documented in this encounter Visit Diagnoses Diagnosis Type 2 diabetes mellitus with hyperglycemia, without long-term current use of insulin (HCC)- Primary Hypothyroidism, adult Other specified acquired hypothyroidism 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, without long-term current use of insulin, unspecified retinopathy severity (HCC) Essential hypertension Stage 3b chronic kidney disease (HCC) Alzheimer's dementia without behavioral disturbance (HCC) Alzheimer's disease Vitamin D deficiency Type 2 diabetes mellitus with stage 3 chronic kidney disease, without long-term current use of insulin, unspecified whether stage 3a or 3b CKD (HCC) Type 2 diabetes mellitus with diabetic neuropathy, without long-term current use of insulin (HCC) Hypertension associated with diabetes (HCC) Type II or unspecified type diabetes mellitus with other specified manifestations, not stated as uncontrolled Diabetes mellitus due to underlying condition with stage 3 chronic kidney disease, without long-term current use of insulin, unspecified whether stage 3a or 3b CKD (HCC) documented in this encounter Care Teams Employment Coordinator Relationship Specialty [place] [address] [place] [address] PCP - General Internal Medicine 01/26/22 [place] [address] [place] [address] PCP - Attributed-[facility] 02/19/22 [place] [address] [facility] [address] [facility] [address] [place] [address] Ophthalmology 04/06/16 Fawn Ramon [place]PM [address] [place] [address] Podiatry 01/24/21 documented as of this encounter
--- OUTSIDE RECORDS SUMMARY | 2024-04-03 00:58 | XMS_ITS | Encounter Summary ---
Author Organization [facility] Address [address] [facility] [place] [address] Care Team Providers Care Executive Admin Name Role Phone Ricco Andrew MD Unavailable [phone] Fawn Ramon DPM Unavailable Chris Aden MD Primary Care Provider [phone] Chris Aden MD Unavailable Elham Cummings Unavailable Reason for Visit * Reason Onset Date Comments Outreach Preventive Care 12/13/2023 Encounter Details Date Type Department Care Team (Late st Contact Info) Description 12/13/2023 Patient Outreach [facility] - Care Coordination [address] [place] [phone] Elham Cummings Outreach Preventive Care Social History Tobacco Use Types Packs/Day [...] encounter Miscellaneous Notes * Telephone Encounter - Elham Cummings - 12/13/2023 1:50 PM CDT HEALTH MAINTENANCE Health Maintenance items reviewed. Patient has Health Maintenance items that are overdue or due soon. Patient outreach is indicated. Health Maintenance Due Topic Date Due ZOSTER VACCINE (1 of 2) Never done Respiratory Syncytial Virus (RSV) Vaccine Pt: or over 60 yrs (1 - 1- dose 60+ series) Neverdone DIABETES RETINOPATHY SCREENING 01/07/2023 INFLUENZA VACCINE (1) 11/21/2023 COVID-19 VACCINE (5 - 2022-24 season) 2023 DIABETES-FOOT EXAM WITH MONOFILAMENT 01/06/2024 items to be addressed: AWV (Medicare/Medicare Advantage), Diabetic Eye Exam, and Flu Vaccine PATIENT OUTREACH I called and spoke to the caregiver daughter, Cassie. PCP Confirmation: Patient is actively engaged with an [facility] PCP. [employer] Enrollment: Already active. Patient engagement and response(s) for due / overdue Health Maintenance items: - Medicare Annual Wellness Visit: - appointment was scheduled for 06/06/24 . Questionnaire was sent/delay send via [employer]. - Immunizations: were discussed with the patient. Including the following: flu, patient's daughter stated he normally gets vaccine - Diabetes Eye Exam: - patient will call to schedule Diabetic Eye Exam. Reminded patient to have the results sent to PCP. Elham Cummings 12/13/2023 1:50 PM documented in this encounter Plan of Treatment Upcoming Encounters Date Type Department Care Team (Late st Contact Info) Description 04/07/2024 10:00 AM GLOBAL IMPLEMENTATION MANAGER Office Visit [facility] [id number] [place] [address] [address] [place] [address] Evelin Blanco APRN-SECURITY REPRESENTATIVE [id number] [place] [address] [address] [place] [address] 06/06/2024 2:00 PM CDT Office Visit [facility] [id number] [place] [address] [address] [place] [address] [place] [address] [place] [phone] documented as of this encounter Goals Goal Patient Goal Type Associated Problems Recent Progress Patient-Stated? Author Blood Pressure < 140/90 Blood Pressure 96/68(2023 2:34 PM GLOBAL IMPLEMENTATION MANAGER) Rere Vargas Note: Caring for Your High [...] Related Tools, and click ? HBP Trackers.? 2-651-UJE-USA-1 or ( ) National Heart, Lung and Blood [place]: http://www.nhlbi.nih.gov/health/infoctr/index.htm Blood Pressure < 140/90 Blood Pressure 96/68(2023 2:34 PM GLOBAL IMPLEMENTATION MANAGER) Rere Vargas Note: Caring for Your High [...] Related Tools, and click ? HBP Trackers.? 0-670-INS-USA-1 or ( ) National Heart, Lung and Blood [place]: http://www.nhlbi.nih.gov/health/infoctr/index.htm Blood Pressure < 140/90 Blood Pressure 96/68(2023 2:34 PM GLOBAL IMPLEMENTATION MANAGER) Cassie Parks Note: Caring for Your High [...] Related Tools, and click ? HBP Trackers.? 7-712-QTQ-USA-1 or ( ) National Heart, Lung and Blood [place]: http://www.nhlbi.nih.gov/health/infoctr/index.htm Exercise 5X per week (30 min per time) Exercise Rere Vargas Note: The [place] [employer] [...] ? ? [place] Diabetes Association: www.diabetes.org 7-002-LPQBIMBS ( ) ? ? [place] Diabetes Association-Support group line: www.professional.diabetes.org ? ? [place] Heart Association: www.heart.org or 1-848-GMW-USA-1 ( ) [facility] MyPlate: www.choosemyplate.gov Have labs drawn Lifestyle No [...] on filedocumented in this encounter Care Teams Executive Admin Relationship Specialty [place] [address] [place] [address] PCP - General Internal Medicine 01/26/22 [place] [address] [place] [address] PCP - [facility] 02/19/22 [place] [address] [facility] [address] [facility] [address] [place] [phone] Ophthalmology 04/06/16 [place] [address] [place], [place] [phone] Podiatry 01/24/21 Elham Cummings 12/13/23 12/13/23 documented as of this encounter
--- OUTSIDE RECORDS SUMMARY | 2024-04-03 00:58 | XMS_ITS | Encounter Summary ---
Author Organization [facility] Address [address] [place] [address] Care Team Providers Care Survey Statistician Name Role Phone Ricco Andrew MD Unavailable [phone] Fawn Ramon DPM Unavailable [phone] Chris Aden MD Primary Care Provider [phone] Chris Aden MD Unavailable Reason for Visit * Reason Comments ER UC Follow-up Encounter Details Date Type Department Care Team (Late st Contact Info) Description 10/13/2023 1:40 PM CDT Office Visit [facility] - Family Medicine [address] [place] [address] Evelin Blanco, JOSETTE-NUT PROCESSING SUPERVISOR [address] [place] [address] Right wrist pain (Primary Dx); Pressure injury of skin of buttock, unspecified injury stage, unspecified laterality Social History Tobacco Use Types Packs/Day Years Used Date Smoking Tobacco: Never Passive Smoke Exposure: Current Smokeless Tobacco: Former Chew Quit: 01/02/2021 Alcohol Use Standard Drinks/Week Comments No 0 (1 standard drink = 0.6 oz pur e alcohol) PHQ-2 Answer Date Recorded Patient Health Questionnaire-2 Score 0 10/13/2023 Sex and Gender Information Value Date Recorded Sex Assigned at Male 01/22/2023 1:45 PM CDT Gender Identity Male 01/22/2023 1:45 PM CDT Sexual Orientation Straight 01/22/2023 1: 45 PM CDT documented as of this encounter Last Filed Vital Signs Vital Sign Reading Time Taken Comments Blood Pressure 110/62 10/13/2023 1:42 PM CDT Pulse 80 10/13/2023 1:42 PM CDT Temperature 36.3 ??C (97.4 ??F) 10/13/2023 1:42 PM CD T Respiratory Rate - - Oxygen Saturation 97% 10/13/2023 1:42 PM CDT Inhaled Oxygen Concentration - - Weight 57.5 kg (126 lb 12.8 oz) 10/13/2023 1:42 PM CDT Height 170.2 cm (5' 7) 10/13/2023 1:42 PM CDT Body Mass Index 19.86 10/13/2023 1:42 PM CDT documented in this encounter Patient Instructions * Patient Instructions* Evelin Blanco APRN-CNP - 10/13/2023 1:58 PM CDT Can safely use the tylenol 3000 mg per day: if 500mg can take 2 of them 3 times a day. If 650 mg can use 2 in the am, one in the midday and 2 at bedtime. Apply the calmoseptine to the buttocks and coccyx twice per day. 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 resolved Chronic renal failure Dementia (HCC) Dermatitis DM (diabetes mellitus) (HCC) HTN (hypertension) Hx of rheumatic fever Hypothyroid Seasonal allergies Trigger finger HPI: on 09-28-2023 he got up and was unable to use the wrist, could not use it. 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 They were told to use some ice as needed, used for a few days. Gave him tylenol 650 mg giving one tablet every other. Cannot see in care everywhere. Daughter is pulling up on her phone. Doing well now. Review of systems negative except [...] by mouth once daily 90 tablet 4 memantine (Namenda) 5 MG tablet Take 1 (one) tablet by mouth 2 times daily 180 tablet 3 ONE TOUCH ULTRASOFT LANCETS MISC Use 1 [...] Septra Ds [Sulfamethoxazole W-Trimethoprim] Rash OBJECTIVE: Vitals: 10/13/23 1342 BP: 110/62 Pulse: 80 Temp: 97.4 ??F (36.3 ??C) SpO2: 97% Weight: 57.5 kg (126 lb 12.8 oz) Height: 1.702 m (5' 7) Body mass index is 19.86 kg/m??. General appearance - alert, well appearing, and in no distress Psych - alert and oriented to person, place, normal affect Neck - trachea midline, no [...] nondistended, no masses or hepatosplenomegaly Extremities - Steady gait, full range of motion of the right wrist, no pain on palpation or movement of the wrist, no clubbing nor cyanosis. Skin - warm, dry, no rashes in visible areas. Neuro - PERRLA, CN ll through Xll intact. ASSESSMENT Encounter Diagnoses Name Primary? Right wrist pain Yes Pressure injury of skin of buttock, unspecified injury stage, unspecified laterality PLAN: Orders Placed This Encounter menthol-zinc oxide (Calmoseptine) 0.44-20.625 % ointment Sig: Apply to affected area 2 times daily On both buttocks and at coccyx. Dispense: 113 g Refill: 2 Can safely use the tylenol 3000 mg per day: if 500mg can take 2 of them 3 times a day. If 650 mg can use 2 in the am, one in the midday and 2 at bedtime. Further recommendations pending the above results and patient's clinical course. Follow-up visit prn. The patient indicates understanding of these issues and agrees with the plan. documented in this encounter Plan of Treatment Upcoming Encounters Date Type Department Care Team (Late st Contact Info) Description 04/07/2024 10:00 AM CAFETERIA OR LUNCHROOM CHECKER Office Visit [facility] [address] [place] [address] Evelin Blanco APRN-CNP [address] [place] [address] 06/06/2024 2:00 PM CDT Office Visit [facility] [address] [place], [place] [phone] [place] [address] [facility] [address] [place] [address] documented as of this encounter Goals Goal Patient Goal Type Associated Problems Recent Progress Patient-Stated? Author Blood Pressure < 140/90 Blood Pressure 96/68(2023 2:34 PM CAFETERIA OR LUNCHROOM CHECKER) Rere Vargas Note: Caring for Your High [...] Related Tools, and click ? HBP Trackers.? 7-440-MZD-USA-1 or ( ) National Heart, Lung and Blood Delphi: http://www.nhlbi.nih.gov/health/infoctr/index.htm Blood Pressure < 140/90 Blood Pressure 96/68(2023 2:34 PM CAFETERIA OR LUNCHROOM CHECKER) Rere Vargas Note: Caring for Your High [...] Related Tools, and click ? HBP Trackers.? 0-761-IQH- or ( ) National Heart, Lung and Blood Delphi: http://www.nhlbi.nih.gov/health/infoctr/index.htm Blood Pressure < 140/90 Blood Pressure 96/68(2023 2:34 PM CAFETERIA OR LUNCHROOM CHECKER) Cassie Parks Note: Caring for Your High [...] Related Tools, and click ? HBP Trackers.? 0-706-AHX-USA- or ( ) National Heart, Lung and Blood Delphi: http://www.nhlbi.nih.gov/health/infoctr/index.htm Exercise 5X per week (30 min per time) Exercise No Rere Kaufman Note: The [employer] College of Sports Medicine [...] diabetes: ? ? Ben[place] Diabetes Association: www.diabetes.org 0-867-JLSAHPQR ( ) ? ? Ben[place] Diabetes Association-Support group line: www.professional.diabetes.org ? ? Ben[place] Heart Association: www.heart.org or 2-737-PAX-USA-1 ( ) [employer] MyPlate: www.Si TVmyplate.gov Have labs drawn Lifestyle Rere Vargas Note: [...] as of this encounter Visit Diagnoses Diagnosis Right wrist pain- Primary Pain in joint, forearm Pressure injury of skin of buttock, unspecified injury stage, unspecified laterality documented in this encounter Care Teams Survey Statistician Relationship Specialty [place] [address] [place] [address] PCP - General Internal Medicine 01/26/22 [place] [address] [place] [phone] PCP - [facility] 02/19/22 [place] [address] [facility] [address] [place] [address] Ophthalmology 04/06/16 Fawn Ramon DPM [address] [place] [address] Podiatry 01/24/21 documented as of this encounter
--- OUTSIDE RECORDS SUMMARY | 2024-04-03 00:58 | XMS_ITS | Encounter Summary ---
Author Organization [facility] Address [address] [place] [address] Care Team Providers Care Bias Cutting Machine Operator Vertical Name Role Phone Ricco Andrew MD Unavailable [phone] Fawn Ramon DPM Unavailable [phone] Chris Aden MD Primary Care Provider [phone] Chris Aden MD Unavailable Reason for Visit * Reason Comments Refill Request Encounter Details Date Type Department Care Team (Late st Contact Info) Description 01/17/2023 Refill [facility] - Family Medicine [address] [place] [address] Chris Aden MD [address] [place] [address] Refill Request Social History Tobacco Use [...] encounter Miscellaneous Notes * Telephone Encounter - Radha Michael RN - 01/18/2023 3:28 PM CDT Claritin refill request denied The original prescription was discontinued on 10/27/2022 by Chris Aden MD documented in this encounter Plan of Treatment Upcoming Encounters Date Type Department Care Team (Late st Contact Info) Description 04/07/2024 10:00 AM IMPROVEMENT ENGINEER Office Visit [facility] [address] [facility] [address] [place], [place] [phone] Evelin Blanco APRN-CNP [address] [address] 06/06/2024 2:00 PM CDT Office Visit [facility] [id number] [place] [address] [address] [place] [address] [place] [id number] [place] [phone] documented as of this encounter Goals Goal Patient Goal Type Associated Problems Recent Progress Patient-Stated? Author Blood Pressure < 140/90 Blood Pressure 96/68(2023 2:34 PM IMPROVEMENT ENGINEER) Rere Vargas Note: Caring for Your High [...] Related Tools, and click ? HBP Trackers.? 3-872-PQZ-USA-1 or ( ) National Heart, Lung and Blood Schlater: http://www.nhlbi.nih.gov/health/infoctr/index.htm Blood Pressure < 140/90 Blood Pressure 96/68(2023 2:34 PM IMPROVEMENT ENGINEER) Rere Vargas Note: Caring for Your High [...] Related Tools, and click ? HBP Trackers.? 5-031-KBV-USA-1 or ( ) National Heart, Lung and Blood Schlater: http://www.nhlbi.nih.gov/health/infoctr/index.htm Blood Pressure < 140/90 Blood Pressure 96/68(2023 2:34 PM IMPROVEMENT ENGINEER) Cassie Parks Note: Caring for Your High [...] Related Tools, and click ? HBP Trackers.? 0-392-EHH-USA-1 or ( ) National Heart, Lung and Blood Schlater: http://www.nhlbi.nih.gov/health/infoctr/index.htm Exercise 5X per week (30 min per time) Exercise Rere Vargas Note: The [place]m[employer] College of Sports Medicine [...] diabetes: ? ? [place]ese Diabetes Association: www.diabetes.org 4-674-HXIANRDC ( ) ? ? [place]ese Diabetes Association-Support group line: www.professional.diabetes.org ? ? [place]ese Heart Association: www.heart.org or 5-610-BRJ-USA-1 ( ) [employer] MyPlate: www.Wrightspeedmyplate.gov Have labs drawn Lifestyle Rere Vargas Note: [...] on filedocumented in this encounter Care Teams Bias Cutting Machine Operator Vertical Relationship Specialty [place] [address] [place] [address] PCP - General Internal Medicine 01/26/22 [place] [address] [address] [place] [address] PCP - [facility] 02/19/22 [place] [address] [facility] [address] [place] [address] Ophthalmology 04/06/16 Fawn Ramon DPM [address] [place] [address] Podiatry 01/24/21 documented as of this encounter
--- OUTSIDE RECORDS SUMMARY | 2024-04-03 00:58 | XMS_ITS | Encounter Summary ---
Author Organization [facility] Address [address] [facility] [place] [address] Care Team Providers Care Surgery Nurse Name Role Phone Ricco Andrew MD Unavailable [phone] Fawn Ramon DPM Unavailable [phone] Chris Aden MD Primary Care Provider [phone] Chris Aden MD Unavailable Reason for Visit * Reason Comments Refill Request Encounter Details Date Type Department Care Team (Late st Contact Info) Description 01/01/2024 Refill [facility] - Family Medicine [address] [place] [address] Chris Aden MD [address] [place] [address] Refill Request Social History Tobacco Use [...] st Contact Info) Description 04/07/2024 10:00 AM SHORTHAND TEACHER Office Visit [facility] [address] [facility] [address] [place] [address] Chayodevin EvelinNIKITA [address] [facility] [address] [place] [address] 06/06/2024 2:00 PM CDT Office Visit [facility] [address] [facility] [place] [address] [place] [address] [facility] [address] [place] [address] documented as of this encounter Goals Goal Patient Goal Type Associated Problems Recent Progress Patient-Stated? Author Blood Pressure < 140/90 Blood Pressure 96/68(2023 2:34 PM SHORTHAND TEACHER) Rere Vargas Note: Caring for Your High [...] Where can I go for more information? [place] Heart Association National Center: http://www.americanheart.org 1. In the top header, click ? Conditions? . 2. In the top header, click ? high blood pressure.? 3. For a printable blood pressure tracker, scroll toward the bottom of the page to Related Tools, and click ? HBP Trackers.? 1-288-TYN-USA-1 or ( ) National Heart, Lung and Blood Ros[place]y: http://www.nhlbi.nih.gov/health/infoctr/index.htm Blood Pressure < 140/90 Blood Pressure 96/68(2023 2:34 PM SHORTHAND TEACHER) Rere Vargas Note: Caring for Your High [...] Where can I go for more information? [place] Heart Association National Center: http://www.americanheart.org 1. In the top header, click ? Conditions? . 2. In the top header, click ? high blood pressure.? 3. For a printable blood pressure tracker, scroll toward the bottom of the page to Related Tools, and click ? HBP Trackers.? 8-908-MCM-USA-1 or ( ) National Heart, Lung and Blood Ros[place]y: http://www.nhlbi.nih.gov/health/infoctr/index.htm Blood Pressure < 140/90 Blood Pressure 96/68(2023 2:34 PM SHORTHAND TEACHER) Cassie Parks Note: Caring for Your High [...] Where can I go for more information? [place] Heart Association National Center: http://www.americanheart.org 1. In the top header, click ? Conditions? . 2. In the top header, click ? high blood pressure.? 3. For a printable blood pressure tracker, scroll toward the bottom of the page to Related Tools, and click ? HBP Trackers.? 4-300-RYK-USA-1 or ( ) National Heart, Lung and Blood Ros[place]y: http://www.nhlbi.nih.gov/health/infoctr/index.htm Exercise 5X per week (30 min per time) Exercise Rere Vargas Note: The [place] College of Sports Medicine recommends all adults [...] how to manage your diabetes: ? ? [place] Diabetes Association: www.diabetes.org 9-996-PXEAQUXQ ( ) ? ? [place]ese Diabetes Association-Support group line: www.professional.diabetes.org ? ? [place]ese Heart Association: www.heart.org or 6-317-FRP-USA-1 ( ) [employer] MyPlate: www.KiwiTechmyplate.gov Have labs drawn Lifestyle No Rere Kaufman [...] on filedocumented in this encounter Care Teams Surgery Nurse Relationship Specialty [place] [address] [address] [place] [address] PCP - General Internal Medicine 01/26/22 [place] [address] [address] [place] [address] PCP - [facility] 02/19/22 [place] [address] [facility] [address] [place] [address] Ophthalmology 04/06/16 Fawn Ramon DPM [address] [address] [place] [address] Podiatry 01/24/21 documented as of this encounter
--- OUTSIDE RECORDS SUMMARY | 2024-04-03 00:58 | XMS_ITS | Encounter Summary ---
Author Organization [facility] Address [address] [facility] [place] [address] Care Team Providers Care Painter And Decorator Apprentice Name Role Phone Ricco Andrew MD Unavailable [phone] Fawn Ramon DPM Unavailable [phone] Chris Aden MD Primary Care Provider [phone] Chris Aden MD Unavailable Reason for Visit * Reason Comments Refill Request Encounter Details Date Type Department Care Team (Late st Contact Info) Description 11/07/2022 Refill [facility] - Family Medicine [address] [place] [address] Chris Aden MD [address] [place] [phone] Refill Request Social History Tobacco Use [...] Telephone Encounter - Radha Michael RN - 11/09/2022 11:03 AM CDT glipiZIDE (Glucotrol) 5 MG tablet refill request deniedit is being requested too soon. Last orderedon 10/26/22 for a 90 day supply with 0 refills. * Telephone Encounter - Radha Michael RN - 11/09/2022 11:01 AM CDT Claritin refill request denied The original prescription was discontinued on 10/27/2022 by Chris Aden MD documented in this encounter Plan of Treatment Upcoming Encounters Date Type Department Care Team (Late st Contact Info) Description 04/07/2024 10:00 AM TABLE TOP TILE SETTER Office Visit [address] [phone] Evelin Blanco, COATER HELPER-PROJECT BUYER [id number] [place] [id number] 06/06/2024 2:00 PM CDT Office Visit [address] [address] Chris Aden MD [address] [place] [phone] documented as of this encounter Goals Goal Patient Goal Type Associated Problems Recent Progress Patient-Stated? Author Blood Pressure < 140/90 Blood Pressure 96/68(2023 2:34 PM TABLE TOP TILE SETTER) Rere Vargas Note: Caring for Your [...] Where can I go for more information? [place] Heart Association National Center: http://www.americanheart.org 1. In the top header, click ? Conditions? . 2. In the top header, click ? high blood pressure.? 3. For a printable blood pressure tracker, scroll toward the bottom of the page to Related Tools, and click ? HBP Trackers.? 4-448-WIA-USA-1 or ( ) National Heart, Lung and Blood [place]: http://www.nhlbi.nih.gov/health/infoctr/index.htm Blood Pressure < 140/90 Blood Pressure 96/68(2023 2:34 PM TABLE TOP TILE SETTER) Rere Vargas Note: Caring for Your [...] Where can I go for more information? [place] Heart Association National Center: http://www.americanheart.org 1. In the top header, click ? Conditions? . 2. In the top header, click ? high blood pressure.? 3. For a printable blood pressure tracker, scroll toward the bottom of the page to Related Tools, and click ? HBP Trackers.? 4-626-RXS-USA-1 or ( ) National Heart, Lung and Blood [place]: http://www.nhlbi.nih.gov/health/infoctr/index.htm Blood Pressure < 140/90 Blood Pressure 96/68(2023 2:34 PM TABLE TOP TILE SETTER) Cassie Parks Note: Caring for Your [...] Where can I go for more information? [place] Heart Association National Center: http://www.americanheart.org 1. In the top header, click ? Conditions? . 2. In the top header, click ? high blood pressure.? 3. For a printable blood pressure tracker, scroll toward the bottom of the page to Related Tools, and click ? HBP Trackers.? 3-014-DOT-USA-1 or ( ) National Heart, Lung and Blood [place]: http://www.nhlbi.nih.gov/health/infoctr/index.htm Exercise 5X per week (30 min per time) Exercise No Rere Kaufman Note: The Lebanese College of Sports Medicine recommends all adults [...] how to manage your diabetes: ? ? [place] Diabetes Association: www.diabetes.org 4-616-FOTBBGXX ( ) ? ? Lebanese Diabetes Association-Support group line: www.professional.diabetes.org ? ? Lebanese Heart Association: www.heart.org or 9-627-DJS-USA-1 ( ) [employer] MyPlate: www.Race Nationmyplate.gov Have labs drawn Lifestyle No Rere Kaufman [...] on filedocumented in this encounter Care Teams Painter And Decorator Apprentice Relationship Specialty [place] [address] [place] [phone] PCP - General Internal Medicine 01/26/22 [place] [address] [place] [phone] [facility] - [facility] 02/19/22 [place] [address] [facility] [address] [place] [phone] Ophthalmology 04/06/16 Fawn Ramon DPM [address] [place] [address] Podiatry 01/24/21 documented as of this encounter
--- OUTSIDE RECORDS SUMMARY | 2024-04-03 00:58 | XMS_ITS | Encounter Summary ---
Author Organization [facility] Address [address] [place] [address] Care Team Providers Care School Nurse Name Role Phone Ricco Andrew MD Unavailable [phone] Fawn Ramon DPM Unavailable [phone] Chris Aden MD Primary Care Provider [phone] Chris Aden MD Unavailable Encounter Details Date Type Department Care Team (Late st Contact Info) Description 05/31/2023 Orders Only [facility] Medical [facility] - Family Medicine [address] [place] [address] Chris Aden MD [address] [place] [phone] Vitamin D deficiency ; Type 2 diabetes mellitus with stage 3 chronic kidney disease, without long-term current use of insulin, unspecified whether stage 3a or 3b CKD (HCC); Hypothyroidism, adult; Screening, lipid; Routine general medical examination at a health care facility Social History Tobacco Use Types Packs/Day Years [...] as of this encounter Miscellaneous Notes * Addendum Note - Tila Valles - 06/01/2023 10:55 AM CDTAddended by: TILA VALLES on: 06/01/2023 10:55 AM Modules accepted: Orders documented in this encounter Plan of Treatment Upcoming Encounters Date Type Department Care Team (Late st Contact Info) Description 04/07/2024 10:00 AM PRODUCTION STATISTICAL CLERK Office Visit [facility] [id number] [place] [address] [address] [place] [address] Evelin Blanco APRN-DYE LINE OPERATOR [address] [address] 06/06/2024 2:00 PM CDT Office Visit [facility] [id number] [place] [address] [address] [place] [address] [place] [address] [phone] Scheduled Orders Name Type Priority Associated Diagnoses Orde r Schedule CBC WITH DIFFERENTIAL Lab Routine Type 2 diabetes mellitus with stage 3 chronic kidney disease, without long-term current use of insulin, unspecified whether stage 3a or 3b CKD (HCC) Routine general medical examination at a health care facility Ordered: 06/01/2023 COMPREHENSIVE METABOLIC PANEL Lab Routine Type 2 diabetes mellitus with stage 3 chronic kidney disease, without long-term current use of insulin, unspecified whether stage 3a or 3b CKD (HCC) Routine general medical examination at a health care facility Ordered: 06/01/2023 HEMOGLOBIN A1C W EAG Lab Routine Type 2 diabetes mellitus with stage 3 chronic kidney disease, without long-term current use of insulin, unspecified whether stage 3a or 3b CKD (HCC) Routine general medical examination at a health care facility Ordered: 06/01/2023 LIPID PROFILE Lab Routine Type 2 diabetes mellitus with stage 3 chronic kidney disease, without long-term current use of insulin, unspecified whether stage 3a or 3b CKD (HCC) Screening, lipid Routine general medical examination at a health care facility Ordered: 06/01/2023 MICROALB/CREAT RATIO URINE RANDOM PANEL Lab Routine Type 2 diabetes mellitus with stage 3 chronic kidney disease, without long-term current use of insulin, unspecified whether stage 3a or 3b CKD (HCC) Routine general medical examination at a health care facility Ordered: 06/01/2023 TSH Lab Routine Type 2 diabetes mellitus with stage 3 chronic kidney disease, without long-term current use of insulin, unspecified whether stage 3a or 3b CKD (HCC) Hypothyroidism, adult Routine general medical examination at a health care facility Ordered: 06/01/2023 VITAMIN D 25-HYDROXY Lab Routine Vitamin D deficiency Type 2 diabetes mellitus with stage 3 chronic kidney disease, without long-term current use of insulin, unspecified whether stage 3a or 3b CKD (HCC) Routine general medical examination at a health care facility Ordered: 06/01/2023 documented as of this encounter Goals Goal Patient Goal Type Associated Problems Recent Progress Patient-Stated? Author Blood Pressure < 140/90 Blood Pressure 96/68(2023 2:34 PM PRODUCTION STATISTICAL CLERK) Rere Vargas Note: Caring for Your [...] Where can I go for more information? [place] Heart Association National Center: http://www.americanheart.org 1. In the top header, click ? Conditions? . 2. In the top header, click ? high blood pressure.? 3. For a printable blood pressure tracker, scroll toward the bottom of the page to Related Tools, and click ? HBP Trackers.? 2-430-BDJ-USA-1 or ( ) National Heart, Lung and Blood [place]: http://www.nhlbi.nih.gov/health/infoctr/index.htm Blood Pressure < 140/90 Blood Pressure 96/68(2023 2:34 PM PRODUCTION STATISTICAL CLERK) Rere Vargas Note: Caring for Your [...] Where can I go for more information? [place] Heart Association National Center: http://www.americanheart.org 1. In the top header, click ? Conditions? . 2. In the top header, click ? high blood pressure.? 3. For a printable blood pressure tracker, scroll toward the bottom of the page to Related Tools, and click ? HBP Trackers.? 6-282-MMB-USA- or ( ) National Heart, Lung and Blood [place]: http://www.nhlbi.nih.gov/health/infoctr/index.htm Blood Pressure < 140/90 Blood Pressure 96/68(2023 2:34 PM PRODUCTION STATISTICAL CLERK) Susan Marie Cassie F Note: Caring for Your High Blood Pressure [...] Where can I go for more information? [place] Heart Association National Center: http://www.americanheart.org 1. In the top header, click ? Conditions? . 2. In the top header, click ? high blood pressure.? 3. For a printable blood pressure tracker, scroll toward the bottom of the page to Related Tools, and click ? HBP Trackers.? 8-887-ZHC-USA- or ( ) National Heart, Lung and Blood [place]: http://www.nhlbi.nih.gov/health/infoctr/index.htm Exercise 5X per week (30 min per time) Exercise No Rere Kaufman Note: The [place] College of Sports Medicine recommends all adults [...] how to manage your diabetes: ? ? [place] Diabetes Association: www.diabetes.org 6-516-KKYGDVEW ( ) ? ? [place] Diabetes Association-Support group line: www.professional.diabetes.org ? ? [place] Heart Association: www.heart.org or 5-254-GLO-USA-1 ( ) [employer] MyPlate: www.Fitfullymyplate.gov Have labs drawn Lifestyle Rere Vargas Note: [...] as of this encounter Visit Diagnoses Diagnosis Vitamin D deficiency- Primary Type 2 diabetes mellitus with stage 3 chronic kidney disease, without long-term current use of insulin, unspecified whether stage 3a or 3b CKD (HCC) Hypothyroidism, adult Other specified acquired hypothyroidism Screening, lipid Screening for lipoid disorders Routine general medical examination at a health care facility documented in this encounter Care Teams School Nurse Relationship Specialty [place] [address] [place] [address] PCP - General Internal Medicine 01/26/22 [place] [address] [place] [address] PCP - [facility] 02/19/22 [place] [address] [facility] [address] [place] [phone] Ophthalmology 04/06/16 Fawn Ramon DPM [address] [place] [address] Podiatry 01/24/21 documented as of this encounter
--- OUTSIDE RECORDS SUMMARY | 2024-04-03 00:58 | XMS_ITS | Encounter Summary ---
Author Organization [facility] Address [address] [facility] [place] [address] Care Team Providers Care Nurses' Association Executive Director Name Role Phone Ricco Andrew MD Unavailable [phone] Fawn Ramon DPM Unavailable [phone] Chris Aden MD Primary Care Provider [phone] Chris Aden MD Unavailable Reason for Visit * Reason Comments Refill Request Encounter Details Date Type Department Care Team (Late st Contact Info) Description 10/23/2022 Refill [facility] - Family Medicine [address] [place] [address] Chris Aden MD [address] [place] [address] Refill Request Social History Tobacco Use [...] encounter Miscellaneous Notes * Telephone Encounter - Ana Dallas RN - 10/23/2022 3:53 PM CDT DOES NOT MEET PROTOCOL - SENT TO PROVIDER FOR REVIEW Last Office Visit with PCP: 05/26/2022 Last Video Visit with PCP: Visit date not found Next Appointment with PCP: 10/27/2022 Follow-up: 5 months Date of last refill: 01/26/22 Please advise documented in this encounter Plan of Treatment Upcoming Encounters Date Type Department Care Team (Late st Contact Info) Description 04/07/2024 10:00 AM PAYROLL BENEFITS ADMINISTRATOR Office Visit [facility] [id number] [place] [address] Evelin Blanco APRN-DENIS [id number] [place] [address] 06/06/2024 2:00 PM CDT Office Visit [facility] [phone] [place] [address] [place] [id number] [place] [phone] documented as of this encounter Goals Goal Patient Goal Type Associated Problems Recent Progress Patient-Stated? Author Blood Pressure < 140/90 Blood Pressure 96/68(2023 2:34 PM PAYROLL BENEFITS ADMINISTRATOR) Rere Vargas Note: Caring for Your High [...] Where can I go for more information? [place] Heart Association National Center: http://www.americanheart.org 1. In the top header, click ? Conditions? . 2. In the top header, click ? high blood pressure.? 3. For a printable blood pressure tracker, scroll toward the bottom of the page to Related Tools, and click ? HBP Trackers.? 0-281-ZCV-USA-1 or ( ) National Heart, Lung and Blood [place]: http://www.nhlbi.nih.gov/health/infoctr/index.htm Blood Pressure < 140/90 Blood Pressure 96/68(2023 2:34 PM PAYROLL BENEFITS ADMINISTRATOR) Rere Vargas Note: Caring for Your High [...] Where can I go for more information? [place] Heart Association National Center: http://www.americanheart.org 1. In the top header, click ? Conditions? . 2. In the top header, click ? high blood pressure.? 3. For a printable blood pressure tracker, scroll toward the bottom of the page to Related Tools, and click ? HBP Trackers.? 9-398-LMW-USA-1 or ( ) National Heart, Lung and Blood [place]: http://www.nhlbi.nih.gov/health/infoctr/index.htm Blood Pressure < 140/90 Blood Pressure 96/68(2023 2:34 PM PAYROLL BENEFITS ADMINISTRATOR) Cassie Parks Note: Caring for Your High [...] Where can I go for more information? [place] Heart Association National Center: http://www.americanheart.org 1. In the top header, click ? Conditions? . 2. In the top header, click ? high blood pressure.? 3. For a printable blood pressure tracker, scroll toward the bottom of the page to Related Tools, and click ? HBP Trackers.? 0-765-AOB-USA-1 or ( ) National Heart, Lung and Blood [place]: http://www.nhlbi.nih.gov/health/infoctr/index.htm Exercise 5X per week (30 min per time) Exercise No Rere Kaufman Note: The [place] College of Sports Medicine recommends all adults [...] how to manage your diabetes: ? ? [place] Diabetes Association: www.diabetes.org 0-018-ERPMOJNX ( ) ? ? [place] Diabetes Association-Support group line: www.professional.diabetes.org ? ? [place] Heart Association: www.heart.org or 4-664-ZRJ-USA-1 ( ) [employer] MyPlate: www.[place] [employer] Stockmyplate.gov Have labs drawn Lifestyle Rere Vargas Note: [...] on filedocumented in this encounter Care Teams Nurses' Association Executive Director Relationship Specialty [place] [address] [place] [phone] PCP - General Internal Medicine 01/26/22 [place] [address] [address] PCP - Attributed-[facility] 02/19/22 [place] [address] [facility] [address] [place] [address] Ophthalmology 04/06/16 Fawn Ramon [place] [address] [place] [address] Podiatry 01/24/21 documented as of this encounter
--- OUTSIDE RECORDS SUMMARY | 2024-04-03 00:58 | XMS_ITS | Encounter Summary ---
Author Organization [facility] Address [address] [place] [address] Care Team Providers Care Reimbursement Counselor Name Role Phone Ricco Andrew MD Unavailable [phone] Fawn Ramon DPM Unavailable [phone] Chris Aden MD Primary Care Provider [phone] Chris Aden MD Unavailable Reason for Visit * Reason Onset Date Comments Outreach Preventive Care 12/16/2022 Encounter Details Date Type Department Care Team (Late st Contact Info) Description 12/16/2022 Patient Outreach [facility] Medical [facility] - Care Coordination [address] [place] [id number] Elham Cummings Outreach Preventive Care Social History [...] * Telephone Encounter - Elham Cummings - 12/16/2022 11:05 AM CDT Chart analysis for Annual Care Gap Review. This is an active touch. I spoke with the patient or adult day care worker. Health Maintenance reviewed for open care gaps and closure process initiated. HM items to be addressed: Diabetic Eye Exam and Flu Vaccine Health Maintenance Due Topic Date Due ??? ZOSTER VACCINE (1 of 2) Never done ??? COVID-19 VACCINE (4 - Moderna series) 09/25/2022 ??? INFLUENZA VACCINE (1) 11/20/2022 ??? DIABETES RETINOPATHY SCREENING 01/07/2023 MyChart Enrollment: Already Active Patient was notified of the following health maintenance care gaps, and instructed on the importance of routine wellness testing. ??? Diabetic Measures o Eye Exam: discussed and patient will follow up with getting the test completed - Exam Location: N/A ??? Immunization o Flu: discussed and patient will follow up with getting the test completed Elham Cummings 12/16/2022 11:05 AM documented in this encounter Plan of Treatment Upcoming Encounters Date Type Department Care Team (Late st Contact Info) Description 04/07/2024 10:00 AM FIREBRICK AND REFRACTORY TILE REPAIRER Office Visit [address] [place] [address] Evelin Blanco, MEDICAL OFFICE ADMINISTRATOR-WEB MARKETING ANALYST [id number] [place] [address] 06/06/2024 2:00 PM CDT Office Visit [facility] [address] [place] [address] [address] [place] [address] [place] [phone] [place] [phone] documented as of this encounter Goals Goal Patient Goal Type Associated Problems Recent Progress Patient-Stated? Author Blood Pressure < 140/90 Blood Pressure 96/68(2023 2:34 PM FIREBRICK AND REFRACTORY TILE REPAIRER) Rere Vargas Note: Caring for Your High [...] Where can I go for more information? [place] Heart Association National Center: http://www.americanheart.org 1. In the top header, click ? Conditions? . 2. In the top header, click ? high blood pressure.? 3. For a printable blood pressure tracker, scroll toward the bottom of the page to Related Tools, and click ? HBP Trackers.? 1-008-QQI-USA-1 or ( ) National Heart, Lung and Blood [place]: http://www.nhlbi.nih.gov/health/infoctr/index.htm Blood Pressure < 140/90 Blood Pressure 96/68(2023 2:34 PM FIREBRICK AND REFRACTORY TILE REPAIRER) Rere Vargas Note: Caring for Your High [...] Where can I go for more information? [place] Heart Association National Center: http://www.americanheart.org 1. In the top header, click ? Conditions? . 2. In the top header, click ? high blood pressure.? 3. For a printable blood pressure tracker, scroll toward the bottom of the page to Related Tools, and click ? HBP Trackers.? 8-930-PEV-USA-1 or ( ) National Heart, Lung and Blood [place]: http://www.nhlbi.nih.gov/health/infoctr/index.htm Blood Pressure < 140/90 Blood Pressure 96/68(2023 2:34 PM FIREBRICK AND REFRACTORY TILE REPAIRER) Cassie Parks Note: Caring for Your High [...] Where can I go for more information? [place] Heart Association National Center: http://www.americanheart.org 1. In the top header, click ? Conditions? . 2. In the top header, click ? high blood pressure.? 3. For a printable blood pressure tracker, scroll toward the bottom of the page to Related Tools, and click ? HBP Trackers.? 3-367-JMZ-USA-1 or ( ) National Heart, Lung and Blood Hydro: http://www.nhlbi.nih.gov/health/infoctr/index.htm Exercise 5X per week (30 min per time) Exercise No Rere Kaufman Note: The [place] College of Sports Medicine recommends all adults [...] how to manage your diabetes: ? ? [place] Diabetes Association: www.diabetes.org 7-918-USFZOBBR ( ) ? ? [place] Diabetes Association-Support group line: www.professional.diabetes.org ? ? [place] Heart Association: www.heart.org or 9-843-YKQ-USA-1 ( ) Expect Labs MyPlate: www.Driver Hiremyplate.gov Have labs drawn Lifestyle Rere Vargas Note: [...] on filedocumented in this encounter Care Teams Reimbursement Counselor Relationship Specialty Start Date [place] [address] [place] [address] PCP - General Internal Medicine 01/26/22 [place] [address] [place] [address] PCP - [facility] 02/19/22 [place] [address] [facility] [place] [address] [place] [phone] Ophthalmology 04/06/16 Fawn Ramon DPM [address] [place], [place] [id number] Podiatry 01/24/21 documented as of this encounter
--- OUTSIDE RECORDS SUMMARY | 2024-04-03 00:58 | XMS_ITS | Encounter Summary ---
Author Organization [facility] Address [address] [facility] [place] [address] Care Team Providers Care Kitchen Stewardess Name Role Phone Ricco Andrew MD Unavailable [phone] Fawn Ramon DPM Unavailable [phone] Chris Aden MD Primary Care Provider [phone] Chris Aden MD Unavailable Reason for Visit * Reason Onset Date Comments Order 05/28/2023 Encounter Details Date Type Department Care Team (Late st Contact Info) Description 05/28/2023 Telephone [facility] - Family Medicine [id number] [place] [address] [place] [id number] [place] [phone] Order Social History Tobacco Use Types Packs/Day Years [...] encounter Miscellaneous Notes * Telephone Encounter - Bere Ruano - 06/01/2023 10:58 AM CDT Informed that orders were sent as requested. * Telephone Encounter - Ana Dallas RN - 05/28/2023 2:17 PM CST Pt called asking for lab orders before upcoming appt next week on 06/01/23. [facility] needs to be faxed the lab orders at [phone] and pt called to be made aware once labs are ordered. TING SIGN MACHINE OPERATOR documented in this encounter Plan of Treatment Upcoming Encounters Date Type Department Care Team (Late st Contact Info) Description 04/07/2024 10:00 AM PRINTING SIGN MACHINE OPERATOR Office Visit [address] [address] Evelin Blanco, GAME ENGINEER-DIRECTOR OF LABORATORY OPERATIONS [id number] [place] [address] 06/06/2024 2:00 PM CDT Office Visit [address] [address] Chris Aden [place] [phone] [place] [phone] documented as of this encounter Goals Goal Patient Goal Type Associated Problems Recent Progress Patient-Stated? Author Blood Pressure < 140/90 Blood Pressure 96/68(2023 2:34 PM PRINTING SIGN MACHINE OPERATOR) Rere Vargas Note: Caring for [...] Where can I go for more information? [place] Heart Association National Center: http://www.americanheart.org 1. In the top header, click ? Conditions? . 2. In the top header, click ? high blood pressure.? 3. For a printable blood pressure tracker, scroll toward the bottom of the page to Related Tools, and click ? HBP Trackers.? 3-416-RHN-USA-1 or ( ) National Heart, Lung and Blood [place]: http://www.nhlbi.nih.gov/health/infoctr/index.htm Blood Pressure < 140/90 Blood Pressure 96/68(2023 2:34 PM PRINTING SIGN MACHINE OPERATOR) Rere Vargas Note: Caring for [...] Where can I go for more information? [place] Heart Association National Center: http://www.americanheart.org 1. In the top header, click ? Conditions? . 2. In the top header, click ? high blood pressure.? 3. For a printable blood pressure tracker, scroll toward the bottom of the page to Related Tools, and click ? HBP Trackers.? 1-268-TIW-USA-1 or ( ) National Heart, Lung and Blood [place]: http://www.nhlbi.nih.gov/health/infoctr/index.htm Blood Pressure < 140/90 Blood Pressure 96/68(2023 2:34 PM PRINTING SIGN MACHINE OPERATOR) Cassie Parks Note: Caring for [...] Where can I go for more information? [place] Heart Association National Center: http://www.americanheart.org 1. In the top header, click ? Conditions? . 2. In the top header, click ? high blood pressure.? 3. For a printable blood pressure tracker, scroll toward the bottom of the page to Related Tools, and click ? HBP Trackers.? 9-039-YQV-USA-1 or ( ) National Heart, Lung and Blood [place]: http://www.nhlbi.nih.gov/health/infoctr/index.htm Exercise 5X per week (30 min per time) Exercise Rere Vargas Note: The [place] College of Sports Medicine recommends all adults [...] how to manage your diabetes: ? ? [place] Diabetes Association: www.diabetes.org 2-770-HAOVZLCQ ( ) ? ? [place] Diabetes Association-Support group line: www.professional.diabetes.org ? ? [place] Heart Association: www.heart.org or 3-775-IME-USA-1 ( ) [employer] MyPlate: www.Omedixmyplate.gov Have labs drawn Lifestyle Rere Vargas Note: [...] on filedocumented in this encounter Care Teams Kitchen Stewardess Relationship Specialty [place] [address] [place] [phone] PCP - General Internal Medicine 01/26/22 [place] [address] [place] [address] PCP - Attributed-[facility] 02/19/22 [place] [address] [facility] [address] [place] [phone] Ophthalmology 04/06/16 Fawn Ramon DPM [address] [place] [address] Podiatry 01/24/21 documented as of this encounter
--- OUTSIDE RECORDS SUMMARY | 2024-04-03 00:58 | XMS_ITS | Encounter Summary ---
Author Organization [facility] Address [address] [place] [address] Care Team Providers Care Requirements Manager Name Role Phone Ricco Andrew MD Unavailable [phone] Fawn Ramon DPM Unavailable [phone] Chris Aden MD Primary Care Provider [phone] Chris Aden MD Unavailable Reason for Visit * Reason Onset Date Comments Late Cancel 10/05/2023 Encounter Details Date Type Department Care Team (Late st Contact Info) Description 10/05/2023 Telephone [facility] - Family Medicine [id number] [place] [address] Chris Aden MD [id number] [place] [phone] Late Cancel Social History Tobacco Use Types Packs/Day Years [...] encounter Miscellaneous Notes * Telephone Encounter - Mainor Bone - 10/05/2023 10:12 AM CDT Mk Sanches called and cancelled their same day appointment Appointment Date: 10/05/23 Appointment Time: 1:30 If rescheduled: 10/13/2023 Provider: Markie documented in this encounter Plan of Treatment Upcoming Encounters Date Type Department Care Team (Late st Contact Info) Description 04/07/2024 10:00 AM TON CYLINDER INSPECTOR Office Visit [facility] [address] [facility] [address] [place] [address] Evelin Blanco APRN-ELECTRIC TRAIN DRIVER [address] [facility] [address] [place] [address] 06/06/2024 2:00 PM CDT Office Visit [facility] [address] [facility] [address] [place] [address] [place] [address] [facility] [address] [place] [address] documented as of this encounter Goals Goal Patient Goal Type Associated Problems Recent Progress Patient-Stated? Author Blood Pressure < 140/90 Blood Pressure 96/68(2023 2:34 PM TON CYLINDER INSPECTOR) Rere Vargas Note: Caring for Your [...] Where can I go for more information? [place] Heart Association National Center: http://www.americanheart.org 1. In the top header, click ? Conditions? . 2. In the top header, click ? high blood pressure.? 3. For a printable blood pressure tracker, scroll toward the bottom of the page to Related Tools, and click ? HBP Trackers.? 5-464-ANO-USA-1 or ( ) National Heart, Lung and Blood [place]: http://www.nhlbi.nih.gov/health/infoctr/index.htm Blood Pressure < 140/90 Blood Pressure 96/68(2023 2:34 PM TON CYLINDER INSPECTOR) Rere Vargas Note: Caring for Your [...] Where can I go for more information? [place] Heart Association National Center: http://www.americanheart.org 1. In the top header, click ? Conditions? . 2. In the top header, click ? high blood pressure.? 3. For a printable blood pressure tracker, scroll toward the bottom of the page to Related Tools, and click ? HBP Trackers.? 1-002-WXS-USA-1 or ( ) National Heart, Lung and Blood [place]: http://www.nhlbi.nih.gov/health/infoctr/index.htm Blood Pressure < 140/90 Blood Pressure 96/68(2023 2:34 PM TON CYLINDER INSPECTOR) Cassie Pakrs Note: Caring for Your High Blood Pressure [...] Where can I go for more information? [place] Heart Association National Center: http://www.americanheart.org 1. In the top header, click ? Conditions? . 2. In the top header, click ? high blood pressure.? 3. For a printable blood pressure tracker, scroll toward the bottom of the page to Related Tools, and click ? HBP Trackers.? 6-913-KJI-USA-1 or ( ) National Heart, Lung and Blood [place]: http://www.nhlbi.nih.gov/health/infoctr/index.htm Exercise 5X per week (30 min per time) Exercise No Rere Kaufman Note: The [place] College of Sports Medicine recommends all adults [...] how to manage your diabetes: ? ? [place] Diabetes Association: www.diabetes.org 5-469-TQZOXTTH ( ) ? ? [place] Diabetes Association-Support group line: www.professional.diabetes.org ? ? [place] Heart Association: www.heart.org or 7-028-SFQ-[facility]-1 ( ) Initiative Gaming MyPlate: www.LugIron Softwaremyplate.gov Have labs drawn Lifestyle No Rere Kaufman [...] on filedocumented in this encounter Care Teams Requirements Manager Relationship Specialty [place] [address] [place] [address] PCP - General Internal Medicine 01/26/22 [place] [address] [place] [phone] PCP - [facility] 02/19/22 [place] [address] [facility] [address] [place] [address] Ophthalmology 04/06/16 Fawn Ramon DPM [address] [place] [address] Podiatry 01/24/21 documented as of this encounter
--- OUTSIDE RECORDS SUMMARY | 2024-04-03 00:58 | XMS_ITS | Encounter Summary ---
Author Organization [facility] Address [address] [facility] [place] [address] Care Team Providers Care Sergeant Of Officers Name Role Phone Ricco Andrew MD Unavailable [phone] Fawn Ramno DPM Unavailable [phone] Chris Aden MD Primary Care Provider Chris Aden MD Unavailable Reason for Visit * Reason Onset Date Comments Tachycardia 12/20/2023 Encounter Details Date Type Department Care Team (Late st Contact Info) Description 12/20/[address] [facility] - Family Medicine [id number] [place] [address] Chris Aden [place] [id number] [place] [phone] Tachycardia Social History Tobacco Use Types Packs/Day Years [...] encounter Miscellaneous Notes * Telephone Encounter - Katie Mena RN - 12/20/2023 3:38 PM CDT Pt's daughter returned call to office and updated blood pressure reading is 108/73 and pulse 87. Pt's daughter denies pt having SOB, CP, or dizziness. Pt's daughter concerned patient may have dementia that is worsening. Pt when at facility began moving index fingers back and forth on table and patient is doing that today. Pt's daughter offered appt with office and declined at this time. Pt's daughter said if she has increasing concerns tomorrow about pt then she will call office tomorrow to schedule appt for pt at that time. * Telephone Encounter - Katie Mena RN - 12/20/2023 2:45 PM CDT Pt's daughter called and said patient's bp today at 1:45 PM was 108/74 and heart rate was 113. Pt's daughter denied palpitations, lightheadedness, dizziness, lightheadedness. Pt denied any symptoms and stated patient said no to s/s of dizziness, lightheadedness, headache, and nausea. Pt's daughter inquiring if she needs to be concerned. Pt's daughter said patient was moved around to get changed and dressed then go to breakfast and then heart rate and blood pressure was checked. Pt's daughter informed to recheck and call office back after patient has completed eating and stopped moving for a few minutes, to get a more accurate reading. Pt's daughter is agreeable to plan and will call and update the office later today. documented in this encounter Plan of Treatment Upcoming Encounters Date Type Department Care Team (Late st Contact Info) Description 04/07/2024 10:00 AM TECHNICAL MAINTENANCE SPECIALIST Office Visit [facility] - Family Medicine [address] [facility] [address] [place] [address] Evelin Blanco, ACCOUNT EXECUTIVE TRAINEE-FIREWALL ENGINEER [address] [facility] [address] [place] [address] 06/06/2024 2:00 PM CDT Office Visit [facility] Family Medicine [address] [facility] [address] [place] [address] [place] [address] [facility] [address] [place] [phone] documented as of this encounter Goals Goal Patient Goal Type Associated Problems Recent Progress Patient-Stated? Author Blood Pressure < 140/90 Blood Pressure 96/68(2023 2:34 PM TECHNICAL MAINTENANCE SPECIALIST) Rere Vargas Note: Caring for Your [...] Where can I go for more information? [place] Heart Association National Center: http://www.americanheart.org 1. In the top header, click ? Conditions? . 2. In the top header, click ? high blood pressure.? 3. For a printable blood pressure tracker, scroll toward the bottom of the page to Related Tools, and click ? HBP Trackers.? 5-907-CXJ-USA- or ( ) National Heart, Lung and Blood [place]: http://www.nhlbi.nih.gov/health/infoctr/index.htm Blood Pressure < 140/90 Blood Pressure 96/68(2023 2:34 PM TECHNICAL MAINTENANCE SPECIALIST) Rere Vargas Note: Caring for Your [...] Where can I go for more information? [place] Heart Association National Center: http://www.americanheart.org 1. In the top header, click ? Conditions? . 2. In the top header, click ? high blood pressure.? 3. For a printable blood pressure tracker, scroll toward the bottom of the page to Related Tools, and click ? HBP Trackers.? 4-781-RXI-USA-1 or ( ) National Heart, Lung and Blood [place]: http://www.nhlbi.nih.gov/health/infoctr/index.htm Blood Pressure < 140/90 Blood Pressure 96/68(2023 2:34 PM TECHNICAL MAINTENANCE SPECIALIST) Cassie Parks Note: Caring for Your [...] Where can I go for more information? [place] Heart Association National Center: http://www.americanheart.org 1. In the top header, click ? Conditions? . 2. In the top header, click ? high blood pressure.? 3. For a printable blood pressure tracker, scroll toward the bottom of the page to Related Tools, and click ? HBP Trackers.? 6-552-BHD-USA-1 or ( ) National Heart, Lung and Blood [place]: http://www.nhlbi.nih.gov/health/infoctr/index.htm Exercise 5X per week (30 min per time) Exercise Rere Vargas Note: The [place] College of Sports Medicine recommends all adults [...] how to manage your diabetes: ? ? [place] Diabetes Association: www.diabetes.org 6-455-KHVNEZVD ( ) ? ? [place] Diabetes Association-Support group line: www.professional.diabetes.org ? ? [place] Heart Association: www.heart.org or 9-309-UNO-USA-1 ( ) Linux Voice MyPlate: www.Elloria Medical Technologiesmyplate.gov Have labs drawn Lifestyle Rere Vargas Note: [...] on filedocumented in this encounter Care Teams Sergeant Of Officers Relationship Specialty [place] [address] [address] [place] [phone] PCP - General Internal Medicine 01/26/22 [place] [address] [address] [place] [phone] PCP - [facility] 02/19/22 [place] [address] [phone] Ophthalmology 04/06/16 Fawn Ramon DPM [address] [place] [id number] Podiatry 01/24/21 documented as of this encounter
--- OUTSIDE RECORDS SUMMARY | 2024-04-03 00:58 | XMS_ITS | Encounter Summary ---
Author Organization [facility] Address [address] [facility] [place] [address] Care Team Providers Care Flower Cheniller Name Role Phone Ricco Andrew MD Unavailable [phone] Fawn Ramon DPM Unavailable [phone] Chris Aden MD Primary Care Provider [phone] Chris Aden MD Unavailable Reason for Visit * Reason Comments Refill Request Encounter Details Date Type Department Care Team (Late st Contact Info) Description 10/04/2022 Refill [facility] - Family Medicine [address] [place] [address] Chris Aden MD [address] [place] [phone] Refill Request Social History Tobacco Use Types Packs/Day Years Used Date Smoking Tobacco: Never Passive Smoke Exposure: Current Smokeless Tobacco: Former Chew Quit: 01/02/2021 Alcohol Use Standard Drinks/Week Comments No 0 (1 standard drink = 0.6 oz pur e alcohol) PHQ-2 Answer Date Recorded PHQ2 TOTAL SCORE 0 08/26/2022 Sex and Gender Information Value Date Recorded Sex Assigned at Male 01/22/2023 1:45 PM CDT Gender Identity Male 01/22/2023 1:45 PM CDT Sexual Orientation Straight 01/22/2023 1: 45 PM CDT documented as of this encounter Miscellaneous Notes * Telephone Encounter - Nina Monreal - 10/06/2022 11:48 AM CDT MEDICATION FILLED PER PROTOCOL Last Office Visit with PCP: 05/26/2022 Last Video Visit with PCP: Visit date not found Next Appointment with PCP: 10/27/2022 Disposition of prescription: e-prescribed to preferred pharmacy documented in this encounter Plan of Treatment Upcoming Encounters Date Type Department Care Team (Late st Contact Info) Description 04/07/2024 10:00 AM SENIOR ACTUARIAL ANALYST Office Visit [facility] [address] [facility] [address] [place] [address] Evelin Blanco APRN-CNP [address] [facility] [address] [place] [address] 06/06/2024 2:00 PM CDT Office Visit [facility] [address] [facility] [address] [place] [address] [place] [address] [facility] [address] [place] [address] documented as of this encounter Goals Goal Patient Goal Type Associated Problems Recent Progress Patient-Stated? Author Blood Pressure < 140/90 Blood Pressure 96/68(2023 2:34 PM SENIOR ACTUARIAL ANALYST) Rere Vargas Note: Caring for Your [...] Where can I go for more information? [place] Heart Association National Center: http://www.americanheart.org 1. In the top header, click ? Conditions? . 2. In the top header, click ? high blood pressure.? 3. For a printable blood pressure tracker, scroll toward the bottom of the page to Related Tools, and click ? HBP Trackers.? 5-163-EZI-USA-1 or ( ) National Heart, Lung and Blood [place]: http://www.nhlbi.nih.gov/health/infoctr/index.htm Blood Pressure < 140/90 Blood Pressure 96/68(2023 2:34 PM SENIOR ACTUARIAL ANALYST) Rere Vargas Note: Caring for Your [...] Where can I go for more information? [place] Heart Association National Center: http://www.americanheart.org 1. In the top header, click ? Conditions? . 2. In the top header, click ? high blood pressure.? 3. For a printable blood pressure tracker, scroll toward the bottom of the page to Related Tools, and click ? HBP Trackers.? 6-487-RRL-USA-1 or ( ) National Heart, Lung and Blood [place]: http://www.nhlbi.nih.gov/health/infoctr/index.htm Blood Pressure < 140/90 Blood Pressure 96/68(2023 2:34 PM SENIOR ACTUARIAL ANALYST) Cassie Parks Note: Caring for Your [...] Where can I go for more information? [place] Heart Association National Center: http://www.americanheart.org 1. In the top header, click ? Conditions? . 2. In the top header, click ? high blood pressure.? 3. For a printable blood pressure tracker, scroll toward the bottom of the page to Related Tools, and click ? HBP Trackers.? 9-816-BAZ-USA-1 or ( ) National Heart, Lung and Blood [place]: http://www.nhlbi.nih.gov/health/infoctr/index.htm Exercise 5X per week (30 min per time) Exercise No Rere Kaufman Note: The [place] College of Sports Medicine recommends all adults [...] how to manage your diabetes: ? ? [place] Diabetes Association: www.diabetes.org 0-389-CHQMAJZZ ( ) ? ? [place] Diabetes Association-Support group line: www.professional.diabetes.org ? ? [place] Heart Association: www.heart.org or 2-557-TTR-USA-1 ( ) SterraClimb MyPlate: www.TruQCmyplate.gov Have labs drawn Lifestyle No Rere Kaufman [...] on filedocumented in this encounter Care Teams Flower Cheniller Relationship Specialty [place] [address] [place] [phone] PCP - General Internal Medicine 01/26/22 [place] [address] [address] [place] [address] PCP - [facility] 02/19/22 [place] [address] [place] [address] Ophthalmology 04/06/16 Fawn Ramon DPM [address] [place] [address] Podiatry 01/24/21 documented as of this encounter
--- OUTSIDE RECORDS SUMMARY | 2024-04-03 00:58 | XMS_ITS | Encounter Summary ---
Author Organization [facility] Address [address] [place] [address] Care Team Providers Care Salesperson Men'S [employer] Boys[employer] Clothing Name Role Phone Ricco Andrew MD Unavailable [phone] Fawn Ramon DPM Unavailable Chris Aden MD Primary Care Provider [phone] Chris Aden MD Unavailable Reason for Visit * Reason Comments Refill Request Encounter Details Date Type Department Care Team (Late st Contact Info) Description 03/18/2023 Refill [facility] - Family Medicine [address] [place] [address] Chris Aden MD [address] [place] [phone] Refill Request Social History Tobacco Use [...] Telephone Encounter - Radha Michael RN - 03/23/2023 9:53 AM CST refill request denied The original prescription was discontinued on 10/27/2022 by Chris Aden MD CONTROLLER documented in this encounter Plan of Treatment Upcoming Encounters Date Type Department Care Team (Late st Contact Info) Description 04/07/2024 10:00 AM MRP CONTROLLER Office Visit [facility] [id number] [place] [address] [address] [place] [address] Evelin Blanco APRN-CNP [address] [address] 06/06/2024 2:00 PM CDT Office Visit [facility] [id number] [place] [address] [address] [place] [address] Chris Aden MD [id number] [place] [phone] documented as of this encounter Goals Goal Patient Goal Type Associated Problems Recent Progress Patient-Stated? Author Blood Pressure < 140/90 Blood Pressure 96/68(2023 2:34 PM MRP CONTROLLER) Rere Vargas Note: Caring for Your [...] Where can I go for more information? [place] Heart Association National Center: http://www.americanheart.org 1. In the top header, click ? Conditions? . 2. In the top header, click ? high blood pressure.? 3. For a printable blood pressure tracker, scroll toward the bottom of the page to Related Tools, and click ? HBP Trackers.? 2-739-CEY-USA-1 or ( ) National Heart, Lung and Blood [place]: http://www.nhlbi.nih.gov/health/infoctr/index.htm Blood Pressure < 140/90 Blood Pressure 96/68(2023 2:34 PM MRP CONTROLLER) Rere Vargas Note: Caring for Your [...] Where can I go for more information? [place] Heart Association National Center: http://www.americanheart.org 1. In the top header, click ? Conditions? . 2. In the top header, click ? high blood pressure.? 3. For a printable blood pressure tracker, scroll toward the bottom of the page to Related Tools, and click ? HBP Trackers.? 7-753-ELD-USA-1 or ( ) National Heart, Lung and Blood [place]: http://www.nhlbi.nih.gov/health/infoctr/index.htm Blood Pressure < 140/90 Blood Pressure 96/68(2023 2:34 PM MRP CONTROLLER) Cassie Parks Note: Caring for Your [...] Where can I go for more information? [place] Heart Association National Center: http://www.americanheart.org 1. In the top header, click ? Conditions? . 2. In the top header, click ? high blood pressure.? 3. For a printable blood pressure tracker, scroll toward the bottom of the page to Related Tools, and click ? HBP Trackers.? 0-591-KLF-USA-1 or ( ) National Heart, Lung and Blood [place]: http://www.nhlbi.nih.gov/health/infoctr/index.htm Exercise 5X per week (30 min per time) Exercise Rere Vargas Note: The [place] College of Sports Medicine recommends all adults [...] how to manage your diabetes: ? ? [place] Diabetes Association: www.diabetes.org 7-215-VVPUBLFM ( ) ? ? [place] Diabetes Association-Support group line: www.professional.diabetes.org ? ? [place] Heart Association: www.heart.org or 6-625-BOO-USA-1 ( ) Estimize MyPlate: www.Zolamyplate.gov Have labs drawn Lifestyle No Rere Kaufman [...] on filedocumented in this encounter Care Teams Salesperson Men'S [employer] Boys[employer] Clothing Relationship Specialty [place] [address] [address] [place] [address] PCP - General Internal Medicine 01/26/22 [place] [address] [address] [place] [address] PCP - [facility] 02/19/22 [place] [address] [phone] Ophthalmology 04/06/16 Fawn Ramon DPM [address] [address] Podiatry 01/24/21 documented as of this encounter
--- OUTSIDE RECORDS SUMMARY | 2024-04-03 00:58 | XMS_ITS | Encounter Summary ---
Author Organization [facility] Address [address] [place] [address] Care Team Providers Care Preventive Maintenance Coordinator Name Role Phone Ricco Andrew MD Unavailable [phone] Fawn Ramon DPKae Unavailable [phone] Chris Aden MD Primary Care Provider [phone] Chris Aden MD Unavailable Reason for Referral * Evaluate & Treat - Closed Specialty Diagnoses / Procedures Referred By Contac t Referred To Contact Diagnoses Type 2 diabetes mellitus with stage 3 chronic kidney disease, without long-term current use of insulin, unspecified whether stage 3a or 3b CKD ([place]) [place] [address] [place] [address] [place] [address] [place] [address] Referral ID Status Reason Start Date Expiration Date V isits Requested Visits Authorized [id number] Closed Specialty Services Required 06/01/2023 05/31/2024 1 1 * Durable Medical Equipment (Routine) - Closed Specialty Diagnoses / Procedures Referred By Contrusty t Referred To Contact DME Services Diagnoses Unsteady [place] [address] [place] [address] Referral ID Status Reason Start Date Expiration Date V isits Requested Visits Authorized [id number] Closed Specialty Services Required 06/01/2023 05/31/2024 1 1 Reason for Visit * Reason Comments Medicare Subsequent Annual Wellness Visi t Encounter Details Date Type Department Care Team (Late st Contact Info) Description 06/01/2023 1:30 PM CDT Office Visit [facility] Family Medicine [id number] [place] [address] [place] [address] [place] [address] Unsteady gait (Primary Dx); Vitamin D deficiency; Type 2 diabetes mellitus with stage 3 chronic kidney disease, without long-term current use of insulin, unspecified whether stage 3a or 3b CKD (HCC); Hypothyroidism, adult; Slow transit constipation; Alzheimer's dementia without behavioral disturbance (HCC); Screening, lipid; Encounter for general adult medical examination with abnormal findings Social History Tobacco Use Types Packs/Day Years [...] Sign Reading Time Taken Comments Blood Pressure 118/60 06/01/2023 1:50 PM CDT Pulse 86 06/01/2023 1:50 PM CDT Temperature 36.6 ??C (97.9 ??F) 06/01/2023 1:50 PM CD T Respiratory Rate 18 06/01/2023 1:50 PM CDT Oxygen Saturation 96% 06/01/2023 1:50 PM CDT Inhaled Oxygen Concentration - - Weight 70.3 kg (155 lb) 06/01/2023 1:50 PM CDT Height 170.2 cm (5' 7.01) 06/01/2023 1:50 PM CD T Body Mass Index 24.27 06/01/2023 1:50 PM CDT documented in this encounter Progress Notes * Chris Aden MD - 06/01/2023 2:05 PM CDT MEDICARE ANNUAL WELLNESS VISIT REVIEW OF BENEFICIARY'S MEDICAL AND SOCIAL HISTORY I have documented, updated and reviewed the below components of the patient's history: Past Medical History: Diagnosis Date ??? Benign hypertension with chronic kidney disease 02/05/2016 BP controlled off rx. resolved ??? Chronic renal failure ??? Dementia (HCC) ??? Dermatitis ??? DM (diabetes mellitus) (HCC) ??? HTN (hypertension) ??? Hx of rheumatic fever ??? Hypothyroid ??? Seasonal allergies ??? Trigger finger Past Surgical History: Procedure Laterality Date ??? NEGATIVE SURGICAL HISTORY Social History Socioeconomic History ??? Marital status: Legally Spouse name: Not on file ??? Number of children: Not on file ??? Years of education: Not on file ??? Highest education level: Not on file Occupational History ??? Not on file Tobacco Use ??? Smoking status: Never Passive exposure: Current ??? Smokeless tobacco: Former Types: Chew Quit date: 01/02/2021 Vaping Use ??? Vaping Use: Never used Substance and Sexual Activity ??? Alcohol use: No ??? Drug use: No ??? Sexual activity: Not Currently Other Topics Concern ??? Not on file Social History Narrative ??? Not on file Social Determinants of Health Financial Resource Strain: Not on file Food Insecurity: Not on file Transportation Needs: Not on file Stress: Not on file Housing Stability: Not on file Family History Family history unknown: Yes Allergies Allergen Reactions ??? Ibuprofen Other HE HAS CKD AND SHOULD NOT TAKE NSAID'S ??? Septra Ds [Sulfamethoxazole W-Trimethoprim] Rash Current Outpatient Medications Medication Sig Dispense Refill ??? Acetaminophen (TYLENOL [...] MOUTH TWICE A DAY 180 capsule 3 ??? glipiZIDE (Glucotrol) 5 MG tablet Take 1 (one) tablet by mouth 2 times daily, before breakfast and supper Type 2 diabetes mellitus with diabetic retinopathyNoted 01/17/2021 [E11.319] 180 tablet 3 ??? ketoconazole (Nizoral) 2 % shampoo APPLY TO AFFECTED AREA THREE TIMES A WEEK REASONS: DANDRUFF 120 mL 5 ??? levothyroxine (Synthroid) 75 MCG tablet Take 1 (one) tablet by mouth daily before breakfast 90 tablet 3 ??? memantine (Namenda) 5 MG tablet Take 1 (one) tablet by mouth 2 times daily 180 tablet 3 ??? ONE TOUCH ULTRASOFT LANCETS MISC Use [...] ounces of fluid Orally Once a day ??? Vitamin D3 (25 MCG) 1000 UNIT capsule Take 1 (one) capsule by mouth once daily Reasons: VitaminD Deficiency 30 capsule 0 No current facility-administered medications for this visit. CURRENT DIET does not restrict carbohydrates PHYSICAL ACTIVITY Exercise: irregularly DEPRESSION SCREENING AND RISK FACTORS Depression risk factors identified: no PHQ-2:Patient Health Questionnaire-2 Score: 0 PHQ-9: HEALTH RISK ASSESSMENT, FUNCTIONAL ABILITY & SAFETY Self Assessment 1. During the past 4 weeks, how would you rate your health in general?: Good Risks 2. Do you have problems with stress, anger, loneliness, isolation or fatigue?: No 3. Do you smoke/vape/use tobacco?: No 4. How often did you have a drink containing alcohol in the past year?: Never 5. Do you use recreational drugs?: Never 6. What best describes your activity level during the past 4 weeks?: (!) Seldom Active 7. Do you participate or engage in physical activity or exercise each week?: Yes 7A .How many minutes per week?: (!) Less than 150 8. Do you have sexual problems or difficuilties with physical intimacy?: No Safety 9. Do you always fasten your seat belt when you are in a car?: Yes 10. Are there smoke alarms and carbon monoxide alarms in your home?: Yes 11. In the bedroom, are you able to quickly and easily reach a light or light switch?: Yes 12. Is the path from your bed to the bathroom free of obstacles with adequate lighting?: Yes 13. Do you have throw rugs on the floor or do you have to walk around or step over cords or wires?:No 14. Does your home have grab bars in the bathroom and handrails on the stairs?: Yes 15. Have you fallen in the last year?: (!) Yes 24A. Fall >2 x or injured from the fall?: (!) Yes 16. Do you feel unsteady when standing or walking?: (!) Yes 17. Do you worry about falling?: (!) Yes Activities 18. Do you need help from others to perform everyday activities such as: Eating, getting dressed, grooming, bathing, walking or using the restroom?: (!) Yes 19. Do you need help from others to perform everyday activities such as: Shopping, housework, meal preparation, managing money, or using the telephone? : (!) Yes 20. Do you have difficulty in getting transportation to where you need to go?: No 21. Do you have any concerns about your nutrition or access to food?: No 22. Do you have trouble taking medications the way you have been instructed to take them?: No Hearing and Dental 23. Do you have difficulty hearing or do you use hearing aids?: (!) Yes 24. Do you have problems with your teeth or dentures?: No Function 25. In the past 4 weeks, how would you rate your pain, aches, soreness, or discomfort?: No pain 26. Do you have any history of leaking urine or urinary incontinence?: No CURRENT CARE PROVIDERS Patient Care Team: Chris Aden MD as PCP - General (Internal Medicine) Chris Aden MD as PCP - Attributed-[facility] Ricco Johnson MD (Ophthalmology) Fawn Ramon DPM (Podiatry) END-OF-LIFE PLANNING ADVANCED DIRECTIVE: Yes CODE STATUS Full Code SUBJECTIVE: Mk Sanches is a 88 year old male here today for Chief Complaint Patient presents with ??? Medicare Subsequent Annual Wellness Visit This is medical wellness follow-up visit. Follow-up for abnormal gait, prone to fall, vitamin-D deficiency, diabetes, hypothyroidism, constipation, dementia. The patient lives with his daughter who takes care of him. Current Outpatient Medications Medication Sig Dispense Refill ??? Acetaminophen (TYLENOL [...] MOUTH TWICE A DAY 180 capsule 3 ??? glipiZIDE (Glucotrol) 5 MG tablet Take 1 (one) tablet by mouth 2 times daily, before breakfast and supper Type 2 diabetes mellitus with diabetic retinopathyNoted 01/17/2021 [E11.319] 180 tablet 3 ??? ketoconazole (Nizoral) 2 % shampoo APPLY TO AFFECTED AREA THREE TIMES A WEEK REASONS: DANDRUFF 120 mL 5 ??? levothyroxine (Synthroid) 75 MCG tablet Take 1 (one) tablet by mouth daily before breakfast 90 tablet 3 ??? memantine (Namenda) 5 MG tablet Take 1 (one) tablet by mouth 2 times daily 180 tablet 3 ??? ONE TOUCH ULTRASOFT LANCETS MISC Use [...] ounces of fluid Orally Once a day ??? Vitamin D3 (25 MCG) 1000 UNIT capsule Take 1 (one) capsule by mouth once daily Reasons: VitaminD Deficiency 30 capsule 0 No current facility-administered medications for this visit. Allergies Allergen Reactions ??? Ibuprofen Other HE HAS CKD AND SHOULD NOT TAKE NSAID'S ??? Septra Ds [Sulfamethoxazole W-Trimethoprim] Rash Past Medical History: Diagnosis Date ??? Benign hypertension with chronic kidney disease 02/05/2016 BP controlled off rx. resolved ??? Chronic renal failure ??? Dementia (HCC) ??? Dermatitis ??? DM (diabetes mellitus) (HCC) ??? HTN (hypertension) ??? Hx of rheumatic fever ??? Hypothyroid ??? Seasonal allergies ??? Trigger finger Family History Family history unknown: Yes Review of Systems All other systems reviewed and are negative. OBJECTIVE: BP Readings from Last 3 Encounters: 06/01/23 118/60 02/26/23 116/62 01/05/23 118/72 Wt Readings from Last 3 Encounters: 06/01/23 70.3 kg (155 lb) 02/26/23 71.2 kg (157 lb) 01/05/23 68.5 kg (151 lb) BP 118/60 (BP SITE: RIGHT ARM, BP POSITION: SITTING, BP Cuff Size: S) Pulse 86 Temp 97.9 ??F (36.6 ??C) (Temporal) Resp 18 Ht 1.702 m (5' 7.01) Wt 70.3 kg (155 lb) SpO2 96% Body mass index is 24.27 kg/m??. Physical Exam Vitals and nursing note reviewed. Constitutional: Appearance: Normal appearance. HENT: Head: Normocephalic and atraumatic. Right Ear: Tympanic membrane normal. Left Ear: Tympanic membrane normal. Nose: Nose normal. Mouth/Throat: Mouth: Mucous membranes are moist. Eyes: Extraocular Movements: Extraocular movements intact. Conjunctiva/sclera: Conjunctivae normal. Pupils: Pupils are equal, round, and reactive to light. Cardiovascular: Rate and Rhythm: Normal rate and regular rhythm. Pulses: Normal pulses. Heart sounds: Normal heart sounds. Pulmonary: Effort: Pulmonary effort is normal. Breath sounds: Normal breath sounds. Abdominal: General: Abdomen is flat. Bowel sounds are normal. Palpations: Abdomen is soft. Musculoskeletal: Cervical back: Normal range of motion and [...] or injured from the fall?: (!) Yes Depression: PHQ-2: PHQ-9: ASSESSMENT: Encounter Diagnoses Name Primary? Unsteady gait Yes ??? Vitamin D deficiency ??? Type 2 diabetes mellitus with stage 3 chronic kidney disease, without long- term current use of insulin, unspecified whether stage 3a or 3b CKD (HCC) ??? Hypothyroidism, adult ??? Slow transit constipation ??? Alzheimer's dementia without behavioral disturbance (HCC) ??? Screening, lipid ??? Encounter for general adult medical examination with abnormal findings PLAN: Orders Placed This Encounter ??? LIPID PROFILE W TCHOL/HDL Order Specific Question: Release to patient Answer: Immediate ??? COMPREHENSIVE METABOLIC PANEL Order Specific Question: Release to patient Answer: Immediate ??? CBC W/O DIFFERENTIAL Order Specific Question: Release to patient Answer: Immediate ??? TSH Order Specific Question: Release to patient Answer: Immediate ??? VITAMIN D 25-HYDROXY Order Specific Question: Release to patient Answer: Immediate ??? HEMOGLOBIN A1C W EAG Order Specific Question: Release to patient Answer: Immediate ??? MICROALB/CREAT RATIO URINE RANDOM PANEL Order Specific Question: Release to patient Answer: Immediate ??? AMB REFERRAL FOR DME Standing Status: Future Standing Expiration Date: 05/31/2024 Referral Priority: Routine Referral Type: Durable Medical Equipment Referral Reason: Specialty Services Required Number of Visits Requested: 1 ??? AMB REFERRAL TO OPHTHALMOLOGY Standing Status: Future Standing Expiration Date: 05/31/2024 Referral Type: Evaluate & Treat Referral Reason: Specialty Services Required Referred to Provider: Juan Pineda MD Number of Visits Requested: 1 ??? Vitamin D3 (25 MCG) 1000 UNIT capsule Sig: Take 1 (one) capsule by mouth once daily Reasons: Vitamin D Deficiency Dispense: 30 capsule Refill: 0 Previous notes reviewed the patient Medication reviewed the patient Labs and imaging reviewed the patient Discussed with the patient the finding plan treatment, agreed to the plan. -abnormal gait: Fall precaution. Timed up and go test more than 14 seconds which put the patient on high risk of fall. I offered physical therapy to the patient the family refused at this time. Vitamin-D deficiency: Continue vitamin-D 1000 units p.o. daily. Diabetes type 2: 1800 calories diabetic diet. Check the feet on daily basis looking for callus lesions Follow-up with ophthalmology for diabetic eye exam. Continue glipizide 5 mg p.o. twice a day. Hypothyroidism: Continue Synthroid 75 mg p.o. daily at empty stomach. Constipation: Continue Colace 100 mg p.o. daily. MiraLax 3350 mg p.o. daily. Drink plenty of fluid. Dementia: Continue Namenda 5 mg p.o. twice a day. I offered physical therapy and home health family refused at this time. Follow-up 6 months or as needed. Further recommendations pending the above results and patient's clinical coarse. The patient indicates understanding of these issues and agrees with the plan. Return in about 6 months (around 12/02/2023), or if symptoms worsen or fail to improve, for labs,imigings. PHYSICAL EXAM Vitals: 06/01/23 1350 BP: 118/60 Pulse: 86 Resp: 18 Temp: 97.9 ??F (36.6 ??C) SpO2: 96% Weight: 70.3 kg (155 lb) Height: 1.702 m (5' 7.01) Body mass index is 24.27 kg/m??. VISUAL ACUITY SCREEN No results found. ASSESSMENT AND PLAN ICD-10-CM 1. Unsteady gait R26.81 AMB REFERRAL FOR DME 2. Vitamin D deficiency E55.9 VITAMIN D 25-HYDROXY 3. Type 2 diabetes mellitus with stage 3 chronic kidney disease, without long- term current use of insulin, unspecified whether stage 3a or 3b CKD (HCC) E11.22 HEMOGLOBIN A1C W EAG N18.30 MICROALB/CREAT RATIO URINE RANDOM PANEL AMB REFERRAL TO OPHTHALMOLOGY 4. Hypothyroidism, adult E03.9 TSH 5. Slow transit constipation K59.01 6. Alzheimer's dementia without behavioral disturbance (HCC) G30.9 F02.80 7. Screening, lipid Z13.220 LIPID PROFILE W TCHOL/HDL 8. Encounter for general adult medical examination with abnormal findings Z00.01 COMPREHENSIVE METABOLIC PANEL CBC W/O DIFFERENTIAL SCREENING SCHEDULE Health Maintenance Topic Date Due ??? ZOSTER VACCINE (1 of 2) Never done ??? Respiratory Syncytial Virus (RSV) Vaccine Pt: or over 60 yrs (1 - 1-dose 60+ series) Never done ??? DIABETES RETINOPATHY SCREENING 01/07/2023 ??? DIABETES-HGB A1C 04/29/2023 ??? COVID-19 VACCINE (2022-24 season) 2024 (Originally 11/20/2022) ??? DIABETES-FOOT EXAM WITH MONOFILAMENT 01/06/2024 ??? DTAP/TDAP/TD VACCINES (3 - Td or Tdap) 10/03/2029 ??? PNEUMOCOCCAL VACCINE 65+ Completed ??? INFLUENZA VACCINE Completed ??? MEDICARE AWV - CALENDAR YEAR Completed ??? DEPRESSION SCREENING Completed ??? HEPATITIS B VACCINE Aged Out ??? HIB VACCINE Aged Out ??? HPV VACCINE Aged Out ??? MENINGOCOCCAL VACCINE Aged Out EDUCATION, COUNSELING, AND REFERRAL BASED ON THE PREVIOUS SCREENING Above screenings were performed and referrals were made as appropriately needed. Orders Placed This Encounter ??? LIPID PROFILE W TCHOL/HDL ??? COMPREHENSIVE METABOLIC PANEL ??? CBC W/O DIFFERENTIAL ??? TSH ??? VITAMIN D 25-HYDROXY ??? HEMOGLOBIN A1C W EAG ??? MICROALB/CREAT RATIO URINE RANDOM PANEL ??? AMB REFERRAL FOR DME ??? AMB REFERRAL TO OPHTHALMOLOGY ??? Vitamin D3 (25 MCG) 1000 UNIT capsule documented in this encounter Plan of Treatment Upcoming Encounters Date Type Department Care Team (Late st Contact Info) Description 04/07/2024 10:00 AM LOADER [employer] Office Visit [facility] [id number] [place] [address] [address] [place] [address] Evelin Blanco, CHILD WELFARE CONSULTANT-DIRECTOR OF LEADERSHIP DEVELOPMENT [address] [place] [address] 06/06/2024 2:00 PM CDT Office Visit [facility] [address] [place] [address] [place] [address] [place] [address] Scheduled Orders Name Type Priority Associated Diagnoses Orde r Schedule LIPID PROFILE W TCHOL/HDL Lab Routine Screening, lipid Ordered: 06/01/2023 COMPREHENSIVE METABOLIC PANEL Lab Routine Encounter for general adult medical examination with abnormal findings Ordered: 06/01/2023 CBC W/O DIFFERENTIAL Lab Routine Encounter for general adult medical examination with abnormal findings Ordered: 06/01/2023 TSH Lab Routine Hypothyroidism, adult Ordered: 06/01/2023 VITAMIN D 25-HYDROXY Lab Routine Vitamin D deficiency Ordered: 06/01/2023 HEMOGLOBIN A1C W EAG Lab Routine Type 2 diabetes mellitus with stage 3 chronic kidney disease, without long-term current use of insulin, unspecified whether stage 3a or 3b CKD (HCC) Ordered: 06/01/2023 MICROALB/CREAT RATIO URINE RANDOM PANEL Lab Routine Type 2 diabetes mellitus with stage 3 chronic kidney disease, without long-term current use of insulin, unspecified whether stage 3a or 3b CKD (HCC) Ordered: 06/01/2023 Scheduled Referrals Name Type Priority Associated Diagnoses Order Schedule AMB REFERRAL FOR DME Outpatient Referral Routine Unsteady gait 1 Occurrences starting 06/01/2023 until 05/31/2024 AMB REFERRAL TO OPHTHALMOLOGY Outpatient Referral Routine Type 2 diabetes mellitus with stage 3 chronic kidney disease, without long-term current use of insulin, unspecified whether stage 3a or 3b CKD (HCC) 1 Occurrences starting 06/01/2023 until 05/31/2024 documented as of this encounter Goals Goal Patient Goal Type Associated Problems Recent Progress Patient-Stated? Author Blood Pressure < 140/90 Blood Pressure 96/68(2023 2:34 PM [employer]AD[employer]) Rere Vargas Note: Caring for Your High [...] Where can I go for more information? [place] [employer] National Center: http://www.americanheart.org 1. In the top header, click ? Conditions? . 2. In the top header, click ? high blood pressure.? 3. For a printable blood pressure tracker, scroll toward the bottom of the page to Related Tools, and click ? HBP Trackers.? 2-838-NLY-USA-1 or ( ) National Heart, Lung and Blood [place]: http://www.nhlbi.nih.gov/health/infoctr/index.htm Blood Pressure < 140/90 Blood Pressure 96/68(2023 2:34 PM [employer]) Rere Vargas Note: Caring for Your High [...] Where can I go for more information? [place] [employer] Association National Center: http://www.americanheart.org 1. In the top header, click ? Conditions? . 2. In the top header, click ? high blood pressure.? 3. For a printable blood pressure tracker, scroll toward the bottom of the page to Related Tools, and click ? HBP Trackers.? 8-817-XPH-USA-1 or ( ) National Heart, Lung and Blood [place]: http://www.nhlbi.nih.gov/health/infoctr/index.htm Blood Pressure < 140/90 Blood Pressure 96/68(2023 2:34 PM LOADER [employer]) Cassie Parks Note: Caring for Your High [...] Where can I go for more information? [place] [employer] Association National Center: http://www.americanheart.org 1. In the top header, click ? Conditions? . 2. In the top header, click ? high blood pressure.? 3. For a printable blood pressure tracker, scroll toward the bottom of the page to Related Tools, and click ? HBP Trackers.? 8-621-MGL-USA-1 or ( ) National Heart, Lung and Blood [place]: http://www.nhlbi.nih.gov/health/infoctr/index.htm Exercise 5X per week (30 min per time) Exercise No Rere Kaufman Note: The [place] [employer] recommends all adults [...] how to manage your diabetes: ? ? [place] Diabetes Association: www.diabetes.org 8-205-HMNOBGCG ( ) ? ? [place] Diabetes Association-Support group line: www.professional.diabetes.org ? ? [place] Heart Association: www.heart.org or 2-029-BWO-[place]-1 ( ) ticckle MyPlate: www.REPUCOMmyplate.gov Have labs drawn Lifestyle Rere Vargas Note: [...] as of this encounter Visit Diagnoses Diagnosis Unsteady gait- Primary Abnormality of gait Vitamin D deficiency Type 2 diabetes mellitus with stage 3 chronic kidney disease, without long-term current use of insulin, unspecified whether stage 3a or 3b CKD (HCC) Hypothyroidism, adult Other specified acquired hypothyroidism Slow transit constipation Alzheimer's dementia without behavioral disturbance (HCC) Alzheimer's disease Screening, lipid Screening for lipoid disorders Encounter for general adult medical examination with abnormal findings Routine general medical examination at a health care facility documented in this encounter Care Teams Preventive Maintenance Coordinator Relationship Specialty [place] [address] [place] [address] PCP - General Internal Medicine 01/26/22 [place] [address] [place] [id number] PCP - [facility]ly [facility] 02/19/22 [place] [address] [facility] [address] [place] [address] Ophthalmology 04/06/16 Fawn Ramon DPM [address] [place], [place] [id number] Podiatry 01/24/21 documented as of this encounter
--- OUTSIDE RECORDS SUMMARY | 2024-04-03 00:58 | XMS_ITS | Encounter Summary ---
Author Organization [facility] Address [address] [facility] [place] [address] Care Team Providers Care Digital Marketing Officer Name Role Phone Ricco Andrew MD Unavailable [phone] Fawn Ramon DPM Unavailable [phone] Chris Aden MD Primary Care Provider [phone] Chris Aden MD Unavailable Reason for Visit * Reason Comments Refill Request Encounter Details Date Type Department Care Team (Late st Contact Info) Description 05/21/2023 Refill [facility] - Family Medicine [address] [place] [address] Chris Aden MD [address] [place] [address] Refill Request Social History Tobacco Use [...] st Contact Info) Description 04/07/2024 10:00 AM RN BUILDING Office Visit [facility] [address] [facility] [address] [place] [address] Chayodevin EvelinNIKITA [address] [facility] [address] [place] [address] 06/06/2024 2:00 PM CDT Office Visit [facility] [address] [facility] [address] [place] [address] [place] [address] [facility] [address] [place] [address] documented as of this encounter Goals Goal Patient Goal Type Associated Problems Recent Progress Patient-Stated? Author Blood Pressure < 140/90 Blood Pressure 96/68(2023 2:34 PM RN BUILDING) Rere Vargas Note: Caring for Your High [...] Where can I go for more information? [place] Heart Association National Center: http://www.americanheart.org 1. In the top header, click ? Conditions? . 2. In the top header, click ? high blood pressure.? 3. For a printable blood pressure tracker, scroll toward the bottom of the page to Related Tools, and click ? HBP Trackers.? 0-877-GTO-USA-1 or ( ) National Heart, Lung and Blood [place]: http://www.nhlbi.nih.gov/health/infoctr/index.htm Blood Pressure < 140/90 Blood Pressure 96/68(2023 2:34 PM RN BUILDING) Rere Vargas Note: Caring for Your High [...] Where can I go for more information? [place] Heart Association National Center: http://www.americanheart.org 1. In the top header, click ? Conditions? . 2. In the top header, click ? high blood pressure.? 3. For a printable blood pressure tracker, scroll toward the bottom of the page to Related Tools, and click ? HBP Trackers.? 0-103-XQO-USA-1 or ( ) National Heart, Lung and Blood [place]: http://www.nhlbi.nih.gov/health/infoctr/index.htm Blood Pressure < 140/90 Blood Pressure 96/68(2023 2:34 PM RN BUILDING) Cassie Parks Note: Caring for Your High [...] Where can I go for more information? [place] Heart Association National Center: http://www.americanheart.org 1. In the top header, click ? Conditions? . 2. In the top header, click ? high blood pressure.? 3. For a printable blood pressure tracker, scroll toward the bottom of the page to Related Tools, and click ? HBP Trackers.? 8-856-FKY-USA-1 or ( ) National Heart, Lung and Blood [place]: http://www.nhlbi.nih.gov/health/infoctr/index.htm Exercise 5X per week (30 min per time) Exercise Rere Vargas Note: The [place] [employer] recommends all adults [...] how to manage your diabetes: ? ? [place] Diabetes Association: www.diabetes.org 9-939-DCVWPRTZ ( ) ? ? [place] Diabetes Association-Support group line: www.professional.diabetes.org ? ? [place] Heart Association: www.heart.org or 4-405-GHV-USA-1 ( ) [employer] MyPlate: www.[place]myplate.gov Have labs drawn Lifestyle No Rere Kaufman [...] on filedocumented in this encounter Care Teams Digital Marketing Officer Relationship Specialty [place] [address] [place] [address] PCP - General Internal Medicine 01/26/22 [place] [address] [place] [address] PCP - [facility] 02/19/22 [place] [address] [facility] [address] [place] [address] Ophthalmology 04/06/16 Fawn Ramon DPM [address] [place] [address] Podiatry 01/24/21 documented as of this encounter
--- OUTSIDE RECORDS SUMMARY | 2024-04-03 00:58 | XMS_ITS | Encounter Summary ---
Author Organization [facility] Address [address] [place] [address] Care Team Providers Care Upholstery Parts Sorter Name Role Phone Ricco Adnrew MD Unavailable [phone] Fawn Ramon DPM Unavailable [phone] Chris Aden MD Primary Care Provider [phone] Chris Aden MD Unavailable Reason for Visit * Reason Comments Follow-up Encounter Details Date Type Department Care Team (Late st Contact Info) Description 10/27/2022 1:15 PM CDT Office Visit [facility] - Family Medicine [id number] [place] [address] Chris Aden MD [address] [place] [address] Type 2 diabetes mellitus with diabetic neuropathy, without long-term current use of insulin (HCC) (Primary Dx); Type 2 diabetes mellitus with stage 3 chronic kidney disease, without long-term current use of insulin, unspecified whether stage 3a or 3b CKD (HCC); 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, without long-term current use of insulin, unspecified retinopathy severity ([facility]); Hypothyroidism, adult; Vitamin D deficiency; Alzheimer's dementia without behavioral disturbance (HCC); Slow transit constipation; Stage 3b chronic kidney disease (HCC); Weak; Mixed hyperlipidemia; Encounter for general adult medical examination with [...] Sign Reading Time Taken Comments Blood Pressure 96/64 10/27/2022 1:23 PM CDT Pulse 82 10/27/2022 1:23 PM CDT Temperature 36.8 ??C (98.3 ??F) 10/27/2022 1:23 PM CD T Respiratory Rate 18 10/27/2022 1:23 PM CDT Oxygen Saturation 99% 10/27/2022 1:23 PM CDT Inhaled Oxygen Concentration - - Weight 68.6 kg (151 lb 3.2 oz) 10/27/2022 1:23 P M CDT Height 170.2 cm (5' 7) 10/27/2022 1:23 PM CDT Body Mass Index 23.68 10/27/2022 1:23 PM CDT documented in this encounter Progress Notes * Chris Aden MD - 10/27/2022 1:50 PM CDT SUBJECTIVE: Mk Sanches is a 87 year old male here today for Chief Complaint Patient presents with ??? Follow-up Patient came in today follow-up for diabetes. Hypothyroidism, vitamin-D deficiency, dementia, constipation, chronic kidney disease, hyperlipidemia patient always week which is chronic. Patient on wheelchair brought by his daughter. Current Outpatient Medications Medication Sig Dispense Refill ??? Acetaminophen (TYLENOL ARTHRITIS PAIN PO) Take 500 mg by mouth Two times a week ??? DIONICIO ASPIRIN REGIMEN PO Take 81 mg by mouth once daily ??? Blood Glucose Monitoring Suppl (ONE TOUCH ULTRA 2) w/Device KIT Use 1 Each 2 times daily ??? docusate sodium (Colace) 100 MG capsule TAKE 1 CAPSULE BY MOUTH BY MOUTH 2 TIMES DAILY REASONS:CONSTIPATION 60 capsule 5 ??? glipiZIDE (Glucotrol) 5 MG tablet TAKE 1 (ONE) TABLET BY MOUTH 2 TIMES DAILY, BEFORE BREAKFAST AND SUPPER 180 tablet 0 ??? ketoconazole (Nizoral) 2 % shampoo Apply to affected area Three times a week Reasons: Dandruff 120 mL 5 ??? levothyroxine (Synthroid) 75 MCG tablet Take 1 (one) tablet by mouth daily before breakfast 90 tablet 3 ??? memantine (Namenda) 5 MG tablet Take 1 (one) tablet by mouth 2 times daily 180 tablet 1 ??? ONE TOUCH ULTRASOFT LANCETS MISC Use 1 Each 2 times daily 33 lucy ??? ONETOUCH ULTRA TEST STRIPS test strip Use 1 strip once daily (One touch mini test strips) (Patient taking differently: Use 1 (one) strip 2 times daily (One touch mini test strips)) 100 strip 2 ??? polyethylene glycol 3350 (Miralax) 17 GM/SCOOP powder 1 capful dissolved in 4-8 oz water or juice daily 527 g 4 ??? Polyethylene Glycol 3350 1 packet mixed with 8 ounces of fluid Orally Once a day No current facility-administered medications for this visit. [...] OBJECTIVE: BP Readings from Last 3 Encounters: 10/27/22 96/64 08/26/22 102/70 05/26/22 104/60 Wt Readings from Last 3 Encounters: 10/27/22 68.6 kg (151 lb 3.2 oz) 08/26/22 70.6 kg (155 lb 9.6 oz) 05/26/22 70.7 kg (155 lb 12.8 oz) BP 96/64 (BP SITE: LEFT ARM, BP POSITION: SITTING, BP CUFF SIZE: 11) Pulse 82 Temp 98.3 ??F (36.8 ??C) (Skin) Resp 18 Ht 1.702 m (5' 7) Wt 68.6 kg (151 lb 3.2 oz) SpO2 99% Body mass index is 23.68 kg/m??. Physical Exam Vitals and nursing note reviewed. Constitutional: Appearance: Normal appearance. HENT: Head: Normocephalic and atraumatic. Right Ear: Tympanic membrane normal. Left Ear: Tympanic membrane normal. Cardiovascular: Rate and Rhythm: Normal rate and regular rhythm. Pulses: Normal pulses. Heart sounds: Normal heart sounds. Pulmonary: Effort: Pulmonary effort is normal. Breath sounds: Normal breath sounds. Abdominal: General: Abdomen is flat. Bowel sounds are normal. Musculoskeletal: Cervical back: Normal range of motion and neck supple. Neurological: Mental Status: He is alert. Psychiatric: Mood and Affect: Mood normal. Behavior: Behavior normal. Thought Content: Thought content normal. Judgment: Judgment normal. . Screenings Future Falls: Depression: PHQ-2:PHQ2 TOTAL SCORE: 0 PHQ-9: ASSESSMENT: Encounter Diagnoses Name Primary? Type 2 diabetes mellitus with diabetic neuropathy, without long-term current use of insulin ([facility]) Yes ??? Type 2 diabetes mellitus with stage 3 chronic kidney disease, without long- term current use of insulin, unspecified whether stage 3a or 3b CKD (CMS/HCC) ??? 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 Hypothyroidism, adult ??? Vitamin D deficiency ??? Alzheimer's dementia without behavioral disturbance (CMS/HCC) ??? Slow transit constipation ??? Stage 3b chronic kidney disease (CMS/HCC) ??? Weak ??? Mixed hyperlipidemia ??? Encounter for general adult medical examination [...] finding plan treatment, agreed to the plan. -diabetes type 2: Continue glipizide 5 mg p.o. twice a day. 1800 calories diabetic diet encouraged Check the feet on daily basis looking for callus lesions. Follow-up with ophthalmology for diabetic eye exam. Hypothyroidism: Continue Synthroid 75 mcg p.o. daily at empty stomach Check TSH next visit. Dementia, continue Namenda 5 mg p.o. twice a day. Fall precaution explained to the patient. Constipation: MiraLax 17 g powder daily. Drink plenty of fluid. Polyethylene glycol 3350 mg p.o. daily use as directed. Chronic kidney disease: Will monitor creatinine kidney function Drink plenty of fluid. Hyperlipidemia: Low-cholesterol diet encouraged. Follow-up next year 7 months or as needed with Medicare wellness. Lab will be done today. Because difficult for the family to bring the patient for labs in therefore the appointment becausehis age and condition. Further recommendations pending the above results and patient's clinical coarse. The patient indicates understanding of these issues and agrees with the plan. Return in about 7 months (around 05/28/2023), or if symptoms worsen or fail to improve, for MEDICARE WELLNESS VISIT, labs,imigings. * Vera Russo LPN - 10/27/2022 1:15 PM CDT The patient was here today for follow up. Pt has concerns for fatigued. Pt do not need refills. BP 96/64 (BP SITE: LEFT ARM, BP POSITION: SITTING, BP CUFF SIZE: 11) Pulse 82 Temp 98.3 ??F (36.8 ??C) (Skin) Resp 18 Ht 1.702 m (5' 7) Wt 68.6 kg (151 lb 3.2 oz) SpO2 99% documented in this encounter Plan of Treatment Upcoming Encounters Date Type Department Care Team (Late st Contact Info) Description 04/07/2024 10:00 AM POLICE INVESTIGATOR Office Visit [facility] [address] [facility] [address] [place] [address] Evelin Blanco APRN-DENIS [address] [facility] [address] [place] [address] 06/06/2024 2:00 PM CDT Office Visit [facility] [address] [facility] [address] [place] [address] [place] [address] [facility] [address] [place] [address] documented as of this encounter Goals Goal Patient Goal Type Associated Problems Recent Progress Patient-Stated? Author Blood Pressure < 140/90 Blood Pressure 96/68(2023 2:34 PM POLICE INVESTIGATOR) Rere Vargas Note: Caring for Your High [...] Where can I go for more information? [place] Heart Association National Center: http://www.americanheart.org 1. In the top header, click ? Conditions? . 2. In the top header, click ? high blood pressure.? 3. For a printable blood pressure tracker, scroll toward the bottom of the page to Related Tools, and click ? HBP Trackers.? 5-071-ZCT-USA-1 or ( ) National Heart, Lung and Blood [place]: http://www.nhlbi.nih.gov/health/infoctr/index.htm Blood Pressure < 140/90 Blood Pressure 96/68(2023 2:34 PM POLICE INVESTIGATOR) Rere Vargas Note: Caring for Your High [...] Where can I go for more information? [place] Heart Association National Center: http://www.americanheart.org 1. In the top header, click ? Conditions? . 2. In the top header, click ? high blood pressure.? 3. For a printable blood pressure tracker, scroll toward the bottom of the page to Related Tools, and click ? HBP Trackers.? 4-252-ETW-USA- or ( ) National Heart, Lung and Blood [place]: http://www.nhlbi.nih.gov/health/infoctr/index.htm Blood Pressure < 140/90 Blood Pressure 96/68(2023 2:34 PM POLICE INVESTIGATOR) Cassie Parks Note: Caring for Your High [...] Where can I go for more information? [place] Heart Association National Center: http://www.americanheart.org 1. In the top header, click ? Conditions? . 2. In the top header, click ? high blood pressure.? 3. For a printable blood pressure tracker, scroll toward the bottom of the page to Related Tools, and click ? HBP Trackers.? 4-242-CHA-USA- or ( ) National Heart, Lung and Blood [place]: http://www.nhlbi.nih.gov/health/infoctr/index.htm Exercise 5X per week (30 min per time) Exercise No Rere Kaufman Note: The [place] College of Sports Medicine recommends all adults [...] how to manage your diabetes: ? ? [place] Diabetes Association: www.diabetes.org 8-149-XDKBVBJW ( ) ? ? [place] Diabetes Association-Support group line: www.professional.diabetes.org ? ? [place] Heart Association: www.heart.org or 3-065-ILG-USA-1 ( ) [employer] MyPlate: www.Ensequencemyplate.gov Have labs drawn Lifestyle Rere Vargas Note: [...] Diagnosis Comments HEMOGLOBIN A1C W EAG Routine 10/27/2022 3:02 PM CDT Type 2 diabetes mellitus with diabetic neuropathy, without long-term current use of insulin (HCC) LIPID PROFILE W TCHOL/HDL Routine 10/27/2022 3:02 PM CDT Mixed hyperlipidemia MICROALB/CREAT RATIO URINE RANDOM PANEL Routine 10/27/2022 3:02 PM CDT Type 2 diabetes mellitus with diabetic neuropathy, without long-term current use of insulin (HCC) VITAMIN D 25-HYDROXY Routine 10/27/2022 3:02 PM CDT Vitamin D deficiency CBC W/O DIFFERENTIAL Routine 10/27/2022 3:02 PM CDT Encounter for general adult medical examination with abnormal findings COMPREHENSIVE METABOLIC PANEL Routine 10/27/2022 3:02 PM CDT Encounter for general adult medical examination with abnormal findings TSH Routine 10/27/2022 3:02 PM CDT Hypothyroidism, adult documented in this encounter Results * TSH (10/27/2022 3:02 PM CDT) [facility] TSH 3.0892 0.35 - 4.94 uIU/mL [facility] ACCOUNT BILL Comment:FASTING Blood BLOOD SPECIMEN / Unknown 10/27/2022 3:02 PM CDT 10/27/2022 Narrative Resulting Agency Comment Lab Testing performed at: [place] [address] [address] ?? [place] [id number] Chris Aden MD LAB - CHEMISTRY MELYSSA CHAHAL Performing Organization Address [facility] de Phone Number [facility] ACCOUNT BILL [address] [place] [address] * VITAMIN D 25-HYDROXY (10/27/2022 3:02 PM CDT) [facility] Vitamin D, 25 Hydroxy 32.9 30 - 80 ng/mL [facility] ACCOUNT BILL Comment: Vitamin D Status: ?Deficiency ? <20 ? ng/mL ?Insufficiency ?? 20-30 ??ng/mL ?Sufficiency ? 30-100 ng/mL ?Toxicity ? >100 ?ng/mL FASTING Blood BLOOD SPECIMEN / Unknown 10/27/2022 3:02 PM CDT 10/27/2022 Narrative Resulting Agency Comment Lab Testing performed at: [facility] [address] ?? [place] [id number] Chris Aden MD LAB - CHEMISTRY ORDE RABLES [facility] ACCOUNT BILL [address] [place] [address] * MICROALB/CREAT RATIO URINE RANDOM PANEL (10/27/2022 3:02 PM CDT) Creatinine Urine 95.37 mg/dL [facility] ACCOUNT BILL Microalbumin Urine 0.6 mg/dL [facility] ACCOUNT BILL Microalbumin/Crea tinine Ratio 6 <30 mg/g [facility] ACCOUNT BILL Comment:FASTING Urine URINE SPECIMEN OBTAINED BY CLEAN CATCH PROCEDURE / Unknown 10/27/2022 3:02 PM CDT 10/27/2022 Narrative Resulting Agency Comment Lab Testing performed at: [facility] [address] ?? [place] [id number] Chris Aden MD LAB - URINE CHEMISTR Y ORDERABLES Performing Organization Address City/[facility]/ZIP Co de Phone Number [facility] ACCOUNT BILL [address] [place] [address] * (ABNORMAL) HEMOGLOBIN A1C W EAG (10/27/2022 3:02 PM CDT) Hemoglobin A1c 5.8(H) <5.7 % [facility] ACCOUNT BILL Estimated Average Glucose 120 mg/dL [facility] ACCOUNT BILL Comment: HbA1c Interpretation: Normal: < 5.7% Pre-diabetes: 5.7-6.4% Diabetes: Equal to or greater than 6.5% Test results diagnostic of diabetes should be repeated for c onfirmation. Treatment target values recommended by ADA and other clinica l organizations should be used to evaluate metabolic control in patients. This test should not replace glucose testing for patients wi th Type 1 diabetes, pediatric patients, or women. ??Falsely low HbA The [employer] Precision assay for the measurement of HbA1c is a National Glycohemoglobin Standardization Program (NGSP) certified method. FASTING Blood BLOOD SPECIMEN / Unknown 10/27/2022 3:02 PM CDT 10/27/2022 Narrative Resulting Agency Comment Lab Testing performed at: [facility] [address] ?? [place] [id number] Chris Aden MD LAB - CHEMISTRY MELYSSA CHAHAL [facility] ACCOUNT BILL [address] [place] [address] * CBC W/O DIFFERENTIAL (10/27/2022 3:02 PM CDT) WBC 7.7 4.4 - 10.7 x10E9/L [facility] ACCOUNT BILL RBC 4.57 3.80 - 5.40 x10E12/L [facility] ACCOUNT BILL Hemoglobin 14.7 12.0 - 17.6 gm/dL [facility] ACCOUNT BILL Hematocrit 44.7 35.2 - 51.7 % [facility] ACCOUNT BILL MCV 97.8 80.7 - 98.3 fl [facility] ACCOUNT BILL MCH 32.2 26.7 - 34.0 pg [facility] ACCOUNT BILL MCHC 32.9 30.8 - 35.9 gm/dL [facility] ACCOUNT BILL RDW 14.4 12.1 - 14.9 % [facility] ACCOUNT BILL Platelet Count 253 153 - 416 x10E9/L [facility] ACCOUNT BILL Comment: MPV FL BLOOD ([facility]) ? 11.2 ? fl ? 9.4-12.9 FASTING Blood BLOOD SPECIMEN / Unknown 10/27/2022 3:02 PM CDT 10/27/2022 Narrative Resulting Agency Comment Lab Testing performed at: [facility] [place] [address] [address] ?? [place] [id number] Chris Aden MD LAB - HEMATOLOGY KWAME ONEILL [facility] ACCOUNT BILL [address] [place] [address] * (ABNORMAL) COMPREHENSIVE METABOLIC PANEL (10/27/2022 3:02 PM CDT) Glucose 128(H) 70 - 105 mg/dL [facility] ACCOUNT BILL BUN 21 7 - 26 mg/dL [facility] ACCOUNT BILL Creatinine 1.24 0.72 - 1.25 mg/dL [facility] ACCOUNT BILL eGFR by CKD-EPI 57(L) >=90 mL/min/1.7 3 m2 [facility] ACCOUNT BILL Sodium 134(L) 136 - 145 mmol/L [facility] ACCOUNT BILL Potassium 4.8 3.5 - 5.1 mmol/L [facility] ACCOUNT BILL Chloride 102 98 - 107 mmol/L [facility] ACCOUNT BILL CO2 21(L) 22 - 29 mmol/L [facility] ACCOUNT BILL Calcium 9.5 8.4 - 10.4 mg/dL [facility] ACCOUNT BILL Protein Total 7.5 6.4 - 8.3 gm/dL [facility] ACCOUNT BILL Albumin 4.1 3.4 - 5.0 gm/dL [facility] ACCOUNT BILL Bilirubin Total 0.5 0.2 - 1.2 mg/dL [facility] ACCOUNT BILL Alkaline Phosphatase 69 40 - 150 U/L [facility] ACCOUNT BILL AST 18 5 - 34 U/L [facility] ACCOUNT BILL ALT 17 0 - 55 U/L [facility] ACCOUNT BILL Comment:FASTING Blood BLOOD SPECIMEN / Unknown 10/27/2022 3:02 PM CDT 10/27/2022 Narrative Resulting Agency Comment Lab Testing performed at: [address] ?? [facility] [id number] Chris Aden MD LAB - CHEMISTRY MELYSSA CHAHAL [facility] ACCOUNT BILL [address] [place] [address] * LIPID PROFILE W TCHOL/HDL (10/27/2022 3:02 PM CDT) Cholesterol 156 <200 mg/dL [facility] ACCOUNT BILL Triglycerides 86 <150 mg/dL [facility] ACCOUNT BILL HDL Cholesterol 53 >40 mg/dL [facility] ACCOUNT BILL VLDL Calculated 17 <=30 mg/dL [facility] ACCOUNT BILL LDL Calculated 86 <130 mg/dL [facility] ACCOUNT BILL Comment:LDL/HDL RATIO BLOOD ([facility]) 1.6 <5.0 Cholesterol/HDL Ratio 2.9 <4.5 [facility] ACCOUNT BILL Comment:FASTING Blood BLOOD SPECIMEN / Unknown 10/27/2022 3:02 PM CDT 10/27/2022 Narrative Resulting Agency Comment Lab Testing performed at: [facility] [address] ?? 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, without long-term current use of insulin, unspecified retinopathy severity (HCC) Hypothyroidism, adult Other specified acquired hypothyroidism Vitamin D deficiency Alzheimer's dementia without behavioral disturbance (HCC) Alzheimer's disease Slow transit constipation Stage 3b chronic kidney disease (HCC) Weak Other malaise and fatigue Mixed hyperlipidemia Encounter for general adult medical examination with abnormal findings Routine general medical examination at a health care facility documented in this encounter Care Teams Upholstery Parts Sorter Relationship Specialty [place] [address] [place] [address] PCP - General Internal Medicine 01/26/22 [place] [address] [place] [address] PCP - Attributed-[facility] 02/19/22 [place] [address] [facility] [address] [place] [address] Ophthalmology 04/06/16 Fawn Ramon DPM [address] [place], [place] [id number] Podiatry 01/24/21 documented as of this encounter
--- OUTSIDE RECORDS SUMMARY | 2024-04-03 00:58 | XMS_ITS | Encounter Summary ---
Author Organization [facility] Address [address] [facility] [place] [address] Care Team Providers Care Computer Language Coder Name Role Phone Ricco Andrew MD Unavailable [phone] Fawn Ramon DPM Unavailable Chris Aden MD Primary Care Provider [phone] Chris Aden MD Unavailable Reason for Visit * Reason Comments Diabetic Foot Care Encounter Details Date Type Department Care Team (Latest Contact Info) Description 01/05/2023 1:40 PM CDT Office Visit [facility] - Podiatry [id number] [address] Fawn Ramon DPM [address] [address] Injury of toenail, initial encounter (Primary Dx); Pain due to onychomycosis of toenails of both feet; Onycholysis of toenail; Onychogryphosis; Type 2 diabetes mellitus with diabetic neuropathy, without long-term current use of insulin (HCC); Overriding toe, unspecified laterality; Hallux valgus with bunions, unspecified laterality Social History Tobacco Use Types [...] Sign Reading Time Taken Comments Blood Pressure 118/72 01/05/2023 1:24 PM CDT Pulse 82 01/05/2023 1:24 PM CDT Temperature - - Respiratory Rate - - Oxygen Saturation 99% 01/05/2023 1:24 PM CDT Inhaled Oxygen Concentration - - Weight 68.5 kg (151 lb) 01/05/2023 1:24 PM CDT Height 170.2 cm (5' 7) 01/05/2023 1:24 PM CDT Body Mass Index 23.65 01/05/2023 1:24 PM CDT documented in this encounter Patient Instructions * Patient Instructions* Fawn Ramon DPM - 01/05/2023 2:09 PM CDT Images from the original note were not included. Diabetic Foot Ulcers WHAT YOU NEED TO KNOW: What is a diabetic foot ulcer? A diabetic foot ulcer can be redness over a bony area or an open sore. The ulcer can develop anywhere on your foot or toes. Ulcers usually develop on the bottom of the foot. You may not know you have an ulcer until you notice drainage on your sock. Drainage is fluid that may be yellow, brown, or red. The fluid may also contain pus or blood. What increases my risk for a diabetic foot ulcer? Blood sugar levels that are not controlled Nerve damage and numbness in your feet Poor blood flow A foot deformity, such as a bunion or hammertoe Calluses or corns on your feet or toes A decrease in vision that keeps you from seeing your feet clearly Being overweight Cigarette smoking or alcohol use How is a diabetic foot ulcer diagnosed and treated? Your healthcare provider will ask about your symptoms and examine your foot and the ulcer. He or she may check your shoes. He or she may also send you to a flight line service attendant (foot doctor) for treatment. The goal of treatment is to start healing your footulcer as soon as possible. The risk for infection decreases with faster healing. Do the following to help your ulcer heal: Prevent or treat an infection. A bandage will be put on your ulcer. Your healthcare provider will give you instructions on changing your bandage. You may need to clean the wound and change the bandage daily. The bandage may contain medicines to help your ulcer heal. You may be asked to put medicineon your foot ulcer before you put on the bandage. The medicine may also prevent growth of tissue that is not healthy. If you have an infection, your healthcare provider will give you antibiotics to treat it. Have any tissue debrided (removed). The removal of skin and tissue around your foot ulcercan help with healing. Manage your blood sugar levels and other health problems. Your blood sugar, blood pressure, and cholesterol levels need to be controlled to help your foot ulcer heal. Your healthcare provider can help you make a plan to manage your health problems. Offload (take the pressure off) the foot ulcer. You may need special shoes with insoles, cushions, or braces. You may be asked to use a wheelchair or crutches until your foot ulcer heals. These itemswill help keep pressure and irritation off the area of your foot ulcer. Your foot ulcer can heal faster without pressure and irritation. Have blood flow to your foot increased. Your healthcare provider may use hyperbaric oxygen therapy or negative pressure wound therapy to increase blood flow. Ask for more information about these therapies. Go to specialists as directed. Your healthcare provider may recommend you see a flight line service attendant, or an orthopedic or vascular surgeon. These healthcare providers can help manage your treatment. What can I do to prevent diabetic foot ulcers? Good foot care may help prevent ulcers, or keep themfrom getting worse. Ask someone to help you if you are not able to check or care for your feet. Thefollowing can help you prevent diabetic foot ulcers: Keep your blood sugar levels under control. Continue the plan for your diabetes that you and your healthcare provider have discussed. Healthy food choices and taking your medicines as directed may help control blood sugars. Contact your healthcare provider if your blood sugar levels are higher thandirected. Wash your feet each day with soap and warm water. Do not use hot water, because this can injure your foot. Dry your feet gently with a towel after you wash them. Dry between and under your toes. Apply lotion or a moisturizer on your dry feet. Ask your healthcare provider what lotions are best to use. Do not put lotion or moisturizer between your toes. Moisture between your toes could lead toskin breakdown. Check your feet each day. Look at your whole foot, including the bottom, and between and under yourtoes. Check for wounds, corns, and calluses. Feel your feet by running your hands along the tops, bottoms, sides, and between your toes. Use a nonbreakable mirror to check your feet if you have trouble seeing the bottoms. Do not try to remove corns or calluses yourself. File or cut your toenails straight across. Protect your feet. Do not walk barefoot or wear your shoes without socks. Check your shoes for rocks or other objects that can hurt your feet. Wear cotton socks to help keep your feet dry. Wear sockswithout toe seams, or wear them with the seams inside out. Change your socks each day. Do not wear socks that are dirty or damp. Wear shoes that fit well. Wear shoes that do not rub against any area of your feet. Your shoes should be ?? to ?? inch (1 to 2 centimeters) longer than your feet. Your shoes should also have extra space around the widest part of your feet. Walking or athletic shoes with laces or straps that adjust are best. Ask your healthcare provider for help to choose the right shoes for you. Ask him or her ifyou need to wear an insert, orthotic, or bandage on your feet. Do not smoke. Nicotine can damage your blood vessels and increase your risk for foot ulcers. Do notuse e-cigarettes or smokeless tobacco in place of cigarettes or to help you quit. They still contain nicotine. Ask your healthcare provider for information if you currently smoke and need help quitting. Know the risks if you choose to drink alcohol. Alcohol can cause your blood sugar levels to be low if you use insulin. Alcohol can cause high blood sugar levels and weight gain if you drink too much.A drink of alcohol is 12 ounces of beer, 5 ounces of wine, or 1?? ounces of liquor. Maintain a healthy weight. Ask your healthcare provider how much you should weigh. A healthy weightcan help you control your diabetes. Ask him or her to help you create a weight loss plan if you areoverweight. Even a 10 to 15 pound weight loss can help you better manage your blood sugar level. Call your local emergency number (911 in the [place]) if: You have a fever with chills. You begin vomiting. You feel faint or become confused. When should I call my doctor? You see new drainage on your sock. Your foot becomes red, warm, and swollen. Your foot ulcer has a bad smell or is draining pus. You feel pain in a foot that used to have little or no feeling. You see black or tissue in or around your ulcer. Your ulcer becomes bigger, deeper, or does not heal. You have questions or concerns about your condition or care. documented in this encounter Progress Notes * Fawn Ramon DPM - 01/05/2023 1:32 PM CDT 01/05/2023 Cc:Diabetic foot check up and painful toenails HPI: Referral from Dr. Markie Terrazas Myron is a 87 year old male is here for diabetic foot checkup. Pt's daughters are here with him and helping with information due to pt's dementia. Reports of his diabetes is well controlled, and relates of being compliant with routine FU with his PCP for evaluation and treatment of the diabetes. Admits of hx of neuropathy. Reports of pt of gait instability and balance issues, denies frequent falls. Reports of ambulating with a walker to help with stability and prevention of falls. Reportsof pt having tried to pulling off his right great toenail on 12/26. Reports of taking the pt to the [facility] ED, and had the the rest of the nail removed and was prescribed antibiotics. Relates of compliance with taking all of the antibiotics. relates of the nailbed healed well. Complains of toenails are so thick that she has difficulty trimming them which she thinks was why the pt attempted to pull of his toenail. Report of pt also having restless legs while sleeping. Relates of pt having difficulty sleeping. Pos hx of ASA therapy. PCP is Dr. Aden and last ov was 10/27/2022. Denies any other changes to medical or surgical history since last ov. PMH, PSH, SOCH, ALL, MED, ROS was reviewed. Physical Exam: BP 118/72 Pulse 82 Ht 1.702 m (5' 7) Wt 68.5 kg (151 lb) SpO2 99% Patient is alert and oriented x 3. cooperative and in no apparent distress. Ears: canals clear, tympanic membranes normal, hearing intact to voice Throat: no mucous membrane abnormalities Neck: range of motion is intact, no masses, thyroid not enlarged, no adenopathy Heart: regular rhythm Lungs: breath sounds normal and symmetric; no rales or wheezes Lower Extremity Exam: VASCULAR: Dorsalis Pedis L 1/4 Posterior Tibialis L 0/4 Dorsalis Pedis R 1/4 Posterior Tibialis R 0/4 Varicosities: pos Skin temp is warm to cool, proximal to distal Dependant Rubor: neg Hair growth: neg Cap refill of toes: immediate Edema: pos Pitting: (+1) bilat LE, feet and ankle Redness: neg Ecchymosis: neg Warmth: mild but no SOI Dermatological: Rash: pos scaling and erythema with papulosquamous vesicles of plantar aspect of bilateral feet. Negative maceration in the interspaces on bilateral foot. Calluses: neg. xerosis: pos Nails: Right hallux nail avulsion site is healing well. Thickened, with brownish/yellowish discoloration and subungal debris to toenails. Extreme brittleness and 95% lysis also present of majority ofthe nails on bilateral feet. No SOI. Skin texture: atrophic and transparent. Pos atrophy of the plantar forefoot fat pad with prominent met heads bilateral feet. Neurological: Not evaluated Musculoskeletal: Max location of tenderness: Pos POP of the digits 1-5 bilateral foot. Pos POP of the entire plantarforefoot sub 1-5 MTPJs gustavo sub 2nd MTPJ of bilateral feet. Neg edema, neg calor, neg SOI. Pos hammer toes 2-5 bilateral. Muscle strength of LE muscle group is equal and normal. Neg tinels with percussion of the tibial nerve and compression of the tarsal tunnel. Decreased AJ DF during ROM with legs e xtended and flexed indicating a gastro-soleus equinus. Latest Reference Range & Units 03/04/21 15:29 10/27/22 15:02 Hemoglobin A1c <5.7 % 6.4 (H) 5.8 (H) Estimated Average Glucose mg/dL 137 120 (H): Data is abnormally high Latest Reference Range & Units 10/27/22 15:02 Vitamin D, 25 Hydroxy 30 - 80 ng/mL 32.9 Assessment: Encounter Diagnoses Name Primary? Injury of toenail, initial encounter Yes ??? Pain due to onychomycosis of toenails of both feet ??? Onycholysis of toenail ??? Onychogryphosis ??? Type 2 diabetes mellitus with diabetic neuropathy, without long-term current use of insulin ([facility]) ??? Overriding toe, unspecified laterality ??? Hallux valgus with bunions, unspecified laterality Treatment: Orders Placed This Encounter ??? DC REMOVAL OF NAIL PLATE Med/lat ??? DC REMOVE ADDITIONAL NAIL PLATE Totals - Chart and lab results with the pt and his daughters. -A comprehensive diabetic foot exam was performed today on bare feet including visual inspection, monofilament, and assessment of pulses. - Discussed with pt good diabetic foot care and importance of maintaining diabetic control to prevent future diabetic related complications. - Pt was also given written info on diabetic foot health. - Traumatic avulsion site evaluated, and recommendations given - Total nail avulsions performed on majority of his toenails, no anesthetic was needed due to severity of lysis and neuropathy, dressing applied. No antibiotic was given due to negative signs infection, but pt was informed of what to look for in an infection such as redness, swelling, odor, drainage, pain etc and was instructed to call if there are any SOI or any changes that is concerning. - Manual debridement of remaining toenails were performed to reduce 50% thickness and at least 1cm in length with slant back done on the borders to reduce pressure. - Rx gabapentin was given to help with his restless legs, neuropathy symptoms, and insomia. They were advised to get future refills from pt's PCP. - Theyu warned pt has increase chances of ulceration again due to the neuropathy and foot deformity. - Discussion of continued self treatment and prevention of ulcerations was done. - They were informed the importance of inspecting the feet daily and and never going without socks and shoes. - They were also informed of what to look for in an infection such as redness, swelling, odor, drainage, pain etc and was instructed to call if there are any SOI or any changes that is concerning. -Discussion of importance of wearing appropriate shoe gear and recommendations given to help with offloading the hammer toes and bunions. - Pt will FU yearly unless needed sooner. documented in this encounter Plan of Treatment Upcoming Encounters Date Type Department Care Team (Late st Contact Info) Description 04/07/2024 10:00 AM DEADENER Office Visit [facility] [id number] [place] [address] [address] [place] [address] Evelin Blanco APRN-STEELER [address] [address] 06/06/2024 2:00 PM CDT Office Visit [facility] [id number] [place] [address] [address] [place] [address] Chris Aden MD [id number] [place] [address] [id number] documented as of this encounter Goals Goal Patient Goal Type Associated Problems Recent Progress Patient-Stated? Author Blood Pressure < 140/90 Blood Pressure 96/68(2023 2:34 PM DEADENER) Rere Vargas Note: Caring for Your High [...] Where can I go for more information? [place] Heart Association National Center: http://www.americanheart.org 1. In the top header, click ? Conditions? . 2. In the top header, click ? high blood pressure.? 3. For a printable blood pressure tracker, scroll toward the bottom of the page to Related Tools, and click ? HBP Trackers.? 5-946-AAW-USA-1 or ( ) National Heart, Lung and Blood [place]: http://www.nhlbi.nih.gov/health/infoctr/index.htm Blood Pressure < 140/90 Blood Pressure 96/68(2023 2:34 PM DEADENER) Rere Vargas Note: Caring for Your High [...] Where can I go for more information? [place] Heart Association National Center: http://www.americanheart.org 1. In the top header, click ? Conditions? . 2. In the top header, click ? high blood pressure.? 3. For a printable blood pressure tracker, scroll toward the bottom of the page to Related Tools, and click ? HBP Trackers.? 8-977-YZD-USA-1 or ( ) National Heart, Lung and Blood [place]: http://www.nhlbi.nih.gov/health/infoctr/index.htm Blood Pressure < 140/90 Blood Pressure 96/68(2023 2:34 PM DEADENER) Cassie Parks Note: Caring for Your High [...] Where can I go for more information? [place] Heart Association National Center: http://www.americanheart.org 1. In the top header, click ? Conditions? . 2. In the top header, click ? high blood pressure.? 3. For a printable blood pressure tracker, scroll toward the bottom of the page to Related Tools, and click ? HBP Trackers.? 7-057-CJC-USA-1 or ( ) National Heart, Lung and Blood [place]: http://www.nhlbi.nih.gov/health/infoctr/index.htm Exercise 5X per week (30 min per time) Exercise Rere Vargas Note: The [place] [employer] recommends all adults [...] how to manage your diabetes: ? ? [place] Diabetes Association: www.diabetes.org 5-536-BVATJKWG ( ) ? ? [place] Diabetes Association-Support group line: www.professional.diabetes.org ? ? [place] Heart Association: www.heart.org or 5-642-KON-USA-1 ( ) [employer] MyPlate: www.Genmedica Therapeuticsmyplate.gov Have labs drawn Lifestyle Rere Vargas Note: [...] as of this encounter Visit Diagnoses Diagnosis Injury of toenail, initial encounter- Primary Pain due to onychomycosis of toenails of both feet Onycholysis of toenail Other specified disease of nail Onychogryphosis Other specified disease of nail Type 2 diabetes mellitus with diabetic neuropathy, without long-term current use of insulin (HCC) Overriding toe, unspecified laterality Hallux valgus with bunions, unspecified laterality documented in this encounter Care Teams Computer Language Coder Relationship Specialty [place] [address] [address] PCP - General Internal Medicine 01/26/22 [place] [address] [place] [phone] PCP - Attributed-[facility] [place] 02/19/22 [place] [address] [facility] [address] [place] [address] Ophthalmology 04/06/16 Fawn Ramno DPM [address] [facility] [address] [place] [address] Podiatry 01/24/21 documented as of this encounter
--- OUTSIDE RECORDS SUMMARY | 2024-04-03 00:58 | XMS_ITS | Encounter Summary ---
Author Organization [facility] Address [address] [place] [address] Care Team Providers Care Bottle House Cleaners Supervisor Name Role Phone Ricco Andrew MD Unavailable [phone] Fawn Ramon DPM Unavailable [phone] Chris Aden MD Primary Care Provider [phone] Chris Aden MD Unavailable Reason for Visit * Reason Onset Date Comments Outreach Preventive Care 2023 Encounter Details Date Type Department Care Team (Late st Contact Info) Description 2023 Patient Outreach [facility] Medical [facility] - Care Coordination [address] [place] [address] Elham Cummings Outreach Preventive Care Social History [...] * Telephone Encounter - Elham Cummings - 2023 3:23 PM CST HEALTH MAINTENANCE Health Maintenance items reviewed. Patient has Health Maintenance items that are overdue or due soon. Patient outreach is indicated. Health Maintenance Due Topic Date Due ??? ZOSTER VACCINE (1 of 2) Never done ??? Respiratory Syncytial Virus (RSV) Vaccine Pt: or over 60 yrs (1 - 1-dose 60+ series) Never done ??? COVID-19 VACCINE (2022-24 season) 2022 ??? DIABETES RETINOPATHY SCREENING 01/07/2023 ??? MEDICARE AWV - CALENDAR YEAR 2023 ??? DEPRESSION SCREENING 03/22/2023 ??? DIABETES-HGB A1C 04/29/2023 HM items to be addressed: AWV (Medicare/Medicare Advantage), A1C and Diabetic Eye Exam PATIENT OUTREACH I called and spoke to the caregiver Clarice. PCP Confirmation: Patient is actively engaged with an [facility] PCP. [employer] Enrollment: Already active. Patient engagement and response(s) for due / overdue Health Maintenance items: - Medicare Annual Wellness Visit: - appointment was already scheduled for 06/01/23 . Questionnaire was sent/delay send via [employer]. - A1C: - PCP will order labs next week - Diabetes Eye Exam: - patient will call to schedule Diabetic Eye Exam. Reminded patient to have the results sent to PCP. Elham Cummings 2023 3:23 PM MAN documented in this encounter Plan of Treatment Upcoming Encounters Date Type Department Care Team (Late st Contact Info) Description 04/07/2024 10:00 AM COKEMAN Office Visit [facility] [address] [facility] [address] [place] [address] Evelin Blanco, JOSETTE-TOBACCO DRIER OPERATOR [address] [facility] [address] [place] [address] 06/06/2024 2:00 PM CDT Office Visit [facility] [address] [facility] [address] [place] [address] [place] [address] [place] [id number] documented as of this encounter Goals Goal Patient Goal Type Associated Problems Recent Progress Patient-Stated? Author Blood Pressure < 140/90 Blood Pressure 96/68(2023 2:34 PM COKEMAN) Rere Vargas Note: Caring for Your High [...] Related Tools, and click ? HBP Trackers.? 4-541-GER-USA-1 or ( ) National Heart, Lung and Blood [place]: http://www.nhlbi.nih.gov/health/infoctr/index.htm Blood Pressure < 140/90 Blood Pressure 96/68(2023 2:34 PM COKEMAN) Rere Vargas Note: Caring for Your High [...] Related Tools, and click ? HBP Trackers.? 5-669-WIJ-USA-1 or ( ) National Heart, Lung and Blood [place]: http://www.nhlbi.nih.gov/health/infoctr/index.htm Blood Pressure < 140/90 Blood Pressure 96/68(2023 2:34 PM COKEMAN) Cassie Parks Note: Caring for Your High [...] Related Tools, and click ? HBP Trackers.? 8-413-ENN-USA-1 or ( ) National Heart, Lung and Blood [place]: http://www.nhlbi.nih.gov/health/infoctr/index.htm Exercise 5X per week (30 min per time) Exercise Rere Vargas Note: The [place] [employer] [...] ? ? [place] Diabetes [employer]: www.diabetes.org 5-963-RAFLSMSO ( ) ? ? [place] Diabetes Association-Support group line: www.professional.diabetes.org ? ? [place] Heart Association: www.heart.org or 1-512-WCZ-USA-1 ( ) [employer] MyPlate: www.Surphacemyplate.gov Have labs drawn Lifestyle Rere Vargas Note: [...] on filedocumented in this encounter Care Teams Bottle House Cleaners Supervisor Relationship Specialty [place] [address] [place] [phone] PCP - General Internal Medicine 01/26/22 [place] [address] [address] [place] [phone] PCP - [facility] 02/19/22 [place] [address] [facility] [address] [place] [phone] Ophthalmology 04/06/16 Fawn Ramon DPM [address] [place] [address] Podiatry 01/24/21 documented as of this encounter
--- OUTSIDE RECORDS SUMMARY | 2024-04-03 00:58 | XMS_ITS | Encounter Summary ---
Author Organization [facility] Address [address] [place] [address] Care Team Providers Care Construction Job Cost Estimator Name Role Phone Ricco Andrew MD Unavailable [phone] Fawn Ramon DPM Unavailable Chris Aden MD Primary Care Provider [phone] Chris Aden MD Unavailable Reason for Visit * Reason Comments Refill Request Encounter Details Date Type Department Care Team (Late st Contact Info) Description 05/12/2023 Refill [facility] - Family Medicine [address] [place] [address] Chris Aden MD [address] [place] [address] Refill Request Social History Tobacco Use [...] st Contact Info) Description 04/07/2024 10:00 AM LEAD LAYING AND GLUING MACHINE OPERATOR Office Visit [facility] [address] [facility] [address] [place] [address] Chayodevin EvelinNIKITA [address] [facility] [address] [place] [address] 06/06/2024 2:00 PM CDT Office Visit [facility] [address] [facility] [address] [place] [address] [place] [address] [facility] [address] [place] [address] documented as of this encounter Goals Goal Patient Goal Type Associated Problems Recent Progress Patient-Stated? Author Blood Pressure < 140/90 Blood Pressure 96/68(2023 2:34 PM LEAD LAYING AND GLUING MACHINE OPERATOR) Rere Vargas Note: Caring for [...] I go for more information? Citizen Of [place] Heart Association National Center: http://www.americanheart.org 1. In the top header, click ? Conditions? . 2. In the top header, click ? high blood pressure.? 3. For a printable blood pressure tracker, scroll toward the bottom of the page to Related Tools, and click ? HBP Trackers.? 5-943-HVI-USA-1 or ( ) National Heart, Lung and Blood [place]: http://www.nhlbi.nih.gov/health/infoctr/index.htm Blood Pressure < 140/90 Blood Pressure 96/68(2023 2:34 PM LEAD LAYING AND GLUING MACHINE OPERATOR) Rere Vargas Note: Caring for [...] I go for more information? Citizen Of [place] Heart Association National Center: http://www.americanheart.org 1. In the top header, click ? Conditions? . 2. In the top header, click ? high blood pressure.? 3. For a printable blood pressure tracker, scroll toward the bottom of the page to Related Tools, and click ? HBP Trackers.? 3-309-UZT-USA-1 or ( ) National Heart, Lung and Blood [place]: http://www.nhlbi.nih.gov/health/infoctr/index.htm Blood Pressure < 140/90 Blood Pressure 96/68(2023 2:34 PM LEAD LAYING AND GLUING MACHINE OPERATOR) Cassie Parks Note: Caring for [...] I go for more information? Citizen Of [place] Heart Association National Center: http://www.americanheart.org 1. In the top header, click ? Conditions? . 2. In the top header, click ? high blood pressure.? 3. For a printable blood pressure tracker, scroll toward the bottom of the page to Related Tools, and click ? HBP Trackers.? 0-573-LRS-USA-1 or ( ) National Heart, Lung and Blood [place]: http://www.nhlbi.nih.gov/health/infoctr/index.htm Exercise 5X per week (30 min per time) Exercise Rere Vargas Note: The [place] College of Sports Medicine recommends all adults [...] manage your diabetes: ? ? Citizen Of [place] Diabetes Association: www.diabetes.org 6-921-YMJRLHSE ( ) ? ? Citizen Of [place] Diabetes Association-Support group line: www.professional.diabetes.org ? ? Citizen Of [place] Heart Association: www.heart.org or 8-012-UTY-USA-1 ( ) [employer] MyPlate: www.Ticketmastermyplate.gov Have labs drawn Lifestyle No Rere Kaufman [...] as of this encounter Visit Diagnoses Diagnosis Seborrheic dermatitis of scalp Other seborrheic dermatitis documented in this encounter Care Teams Construction Job Cost Estimator Relationship Specialty [place] [address] [place] [address] PCP - General Internal Medicine 01/26/22 [place] [address] [place] [address] PCP - [facility] 02/19/22 [place] [address] [address] [facility] [address] [place] [address] Ophthalmology 04/06/16 Fawn Ramon DPM [address] [place] [address] Podiatry 01/24/21 documented as of this encounter
--- OUTSIDE RECORDS SUMMARY | 2024-04-03 00:58 | XMS_ITS | Encounter Summary ---
Author Organization [facility] Address [address] [facility] [place] [address] Care Team Providers Care Two Way Radio Installer Name Role Phone Ricco Andrew MD Unavailable [phone] Fawn Ramon DPM Unavailable [phone] Chris Aden MD Primary Care Provider [phone] Chris Aden MD Unavailable Encounter Details Date Type Department Care Team (Latest Contact Info) Description 06/01/2023 Travel Social History Tobacco Use Types Packs/Day [...] st Contact Info) Description 04/07/2024 10:00 AM STATISTICAL CONSULTANT Office Visit [facility] - Family Medicine [address] [facility] [address] [place] [address] Evelin Blanco, JOSETTE-DENIS [address] [facility] [address] [place] [address] 06/06/2024 2:00 PM CDT Office Visit [facility] Family Medicine [address] [facility] [address] [place] [address] [place] [address] [facility] [address] [place] [phone] documented as of this encounter Goals Goal Patient Goal Type Associated Problems Recent Progress Patient-Stated? Author Blood Pressure < 140/90 Blood Pressure 96/68(2023 2:34 PM STATISTICAL CONSULTANT) Rere Vargas Note: Caring for Your High [...] Where can I go for more information? [place] Heart Association National Center: http://www.americanheart.org 1. In the top header, click ? Conditions? . 2. In the top header, click ? high blood pressure.? 3. For a printable blood pressure tracker, scroll toward the bottom of the page to Related Tools, and click ? HBP Trackers.? 0-121-IHX-USA- or ( ) National Heart, Lung and Blood [place]: http://www.nhlbi.nih.gov/health/infoctr/index.htm Blood Pressure < 140/90 Blood Pressure 96/68(2023 2:34 PM STATISTICAL CONSULTANT) Rere Vargas Note: Caring for Your High [...] Where can I go for more information? [place] Heart Association National Center: http://www.americanheart.org 1. In the top header, click ? Conditions? . 2. In the top header, click ? high blood pressure.? 3. For a printable blood pressure tracker, scroll toward the bottom of the page to Related Tools, and click ? HBP Trackers.? 5-773-WNZ-USA-1 or ( ) National Heart, Lung and Blood [place]: http://www.nhlbi.nih.gov/health/infoctr/index.htm Blood Pressure < 140/90 Blood Pressure 96/68(2023 2:34 PM STATISTICAL CONSULTANT) Cassie Parks Note: Caring for Your High [...] Where can I go for more information? [place] Heart Association National Center: http://www.americanheart.org 1. In the top header, click ? Conditions? . 2. In the top header, click ? high blood pressure.? 3. For a printable blood pressure tracker, scroll toward the bottom of the page to Related Tools, and click ? HBP Trackers.? 7-846-BWS-USA-1 or ( ) National Heart, Lung and Blood [place]: http://www.nhlbi.nih.gov/health/infoctr/index.htm Exercise 5X per week (30 min per time) Exercise Rere Vargas Note: The [place] College of Sports Medicine recommends all adults [...] how to manage your diabetes: ? ? [place] Diabetes Association: www.diabetes.org 0-405-RZIXDDGA ( ) ? ? [place] Diabetes Association-Support group line: www.professional.diabetes.org ? ? [place] Heart Association: www.heart.org or 8-082-YHG-USA-1 ( ) [employer] MyPlate: www.Direct Access Softwaremyplate.gov Have labs drawn Lifestyle Rere Vargas [...] on filedocumented in this encounter Care Teams Two Way Radio Installer Relationship Specialty [place] [address] [place] [phone] PCP - General Internal Medicine 01/26/22 [place] [address] [address] [place] [phone] PCP - [facility] 02/19/22 [place] [address] [address] Ophthalmology 04/06/16 Fawn Ramon DPM [address] [address] [place] [address] Podiatry 01/24/21 documented as of this encounter
--- OUTSIDE RECORDS SUMMARY | 2024-04-03 00:58 | XMS_ITS | Encounter Summary ---
Author Organization [facility] Address [address] [facility] [place] [address] Care Team Providers Care Tank Farm Operator Name Role Phone Ricco Andrew MD Unavailable [phone] Fawn Ramon DPM Unavailable [phone] Chris Aden MD Primary Care Provider [phone] Chris Aden MD Unavailable Reason for Visit * Reason Comments ER UC Follow-up Encounter Details Date Type Department Care Team (Late st Contact Info) Description 09/03/2023 2:00 PM CDT Office Visit [facility] - Family Medicine [id number] [place] [address] [address] [place] [address] Evelin Blanco, JOSETTE-VETERINARY TECHNOLOGIST [address] [facility] [address] [place] [address] Unsteady gait (Primary Dx); Type 2 diabetes mellitus with stage 3 chronic kidney disease, without long-term current use of insulin, unspecified whether stage 3a or 3b CKD (HCC); Alzheimer's dementia without behavioral disturbance (HCC); Weak Social History Tobacco Use Types Packs/Day Years [...] Sign Reading Time Taken Comments Blood Pressure 92/60 09/03/2023 2:11 PM CDT Pulse 84 09/03/2023 2:11 PM CDT Temperature 36.6 ??C (97.9 ??F) 09/03/2023 2:11 PM CD T Respiratory Rate 18 09/03/2023 2:11 PM CDT Oxygen Saturation 98% 09/03/2023 2:11 PM CDT Inhaled Oxygen Concentration - - Weight 67.1 kg (148 lb) 09/03/2023 2:11 PM CDT Height 170.2 cm (5' 7) 09/03/2023 2:11 PM CDT Body Mass Index 23.18 09/03/2023 2:11 PM CDT documented in this encounter Patient Instructions * Patient Instructions* Evelin Blanco APRN-CNP - 09/03/2023 2:47 PM CDT Add bananas, rice, applesauce and toast added to his diet. Can use some boost or the ensure. Can give a drink of water after a bite of food, alternate. Can tuck chin when swallowing can help. At least 80 oz of fluid per day. Consider hospice care. If you decide on PT let us know as well could strengthen him. documented in this encounter Progress Notes * Evelin Blanco APRN-CNP - 09/03/2023 2:25 PM CDT SUBJECTIVE: Mk Sanches is a 88 year old male here for: Chief Complaint Patient presents with ER UC Follow-up Past Medical History: Diagnosis Date Benign hypertension with chronic kidney disease 02/05/2016 BP controlled off rx. resolved Chronic renal failure Dementia (HCC) Dermatitis DM (diabetes mellitus) (HCC) HTN (hypertension) Hx of rheumatic fever Hypothyroid Seasonal allergies Trigger finger HPI: Pt was in [facility] a couple of times over that past few days. 08-28-2023 pt had bad diarrhea, dizzy and faint like Could not stand up on his own. Needed help to get him cleaned up to go. Gave him IV with fluids. He now has kind of diarrhea but some mushy. No vomiting. Pt has lost 7 lbssince last visit. Did labs only. Pt has a mychart Went again on 09-01-2023 for being incontinent, super wet. He got up but then seemed too weak and they used a roller walker to the front room and he wanted to go back to sleep. B/P was 96/58, did not check blood sugar. Called 911. Blood pressure 110/64 with EMS, BS was 148 with EMS. Did labs and urine test. Ordered CT of the head. Told them he was dehydrated gave him another bag of fluids. Orthostatic pressures were low before fluids, repeated afterwards and it was better. Gave him something to eat. Pt walked well for doctor. NO UTI reported, labs fine. CT scan showed advance dementia. At home doing well, eating trying to give him foods to get rid of diarrhea, miralax held, taking the stool softener. Drinking 16 oz in the am, afternoon GZero drinks a couple, 16 oz later. This am hewas incontinent and soaked. Sleeping more. Drooling more. More awake at 6 - 10 pm. Daughter had labs from 09-01-2023 in her phone. Reviewed. BUN/Cr 19/1.19, NA 128, otherwise normal. Urinalysis was normal. List of blood pressure at home 122-105/60s Blood sugars 120 - 140. Review of systems negative except as noted [...] OF WATER OR JUICE ONCE DAILY (Patient not taking: Reported on 09/03/2023) 510 g 3 docusate sodium (Colace) 100 [...] mouth daily before breakfast 90 tablet 3 memantine (Namenda) 5 MG tablet Take 1 [...] Septra Ds [Sulfamethoxazole W-Trimethoprim] Rash OBJECTIVE: Vitals: 09/03/23 1411 BP: 92/60 Pulse: 84 Resp: 18 Temp: 97.9 ??F (36.6 ??C) SpO2: 98% Weight: 67.1 kg (148 lb) Height: 1.702 m (5' 7) Body mass index is 23.18 kg/m??. General appearance - alert, well appearing, and in no distress Psych - alert and oriented to person, family, place, pleasantly confused, sleepy. ENT -Eyes: conjunctiva clear, no drainage. Ears: tm right pearly nassar, positive light reflex, landmarks present; tm left pearly nassar, positive light reflex, landmarks present. Nose: pink turbinates, clear drainage. Frontal and maxillary sinuses not tender to palpation. Throat: pink, moist mucous membranes, tonsils not enlarged. Neck - trachea midline, no thyromegaly, supple, [...] Extremities - Steady gait, full range of motion, no clubbing nor cyanosis. Skin - warm, dry, no rashes in visible areas. Neuro - PERRLA, CN ll through Xll intact. . ASSESSMENT Encounter Diagnoses Name Primary? Unsteady gait Yes Type 2 diabetes mellitus with stage 3 chronic kidney disease, without long-term current use of insulin, unspecified whether stage 3a or 3b CKD (HCC) Alzheimer's dementia without behavioral disturbance (HCC) Weak PLAN: Orders Placed This Encounter loratadine (Claritin) 10 MG tablet Sig: Take 1 (one) tablet by mouth once daily Dispense: 90 tablet Refill: 4 Add bananas, rice, applesauce and toast added to his diet. Can use some boost or the ensure. Can give a drink of water after a bite of food, alternate. Can tuck chin when swallowing can help. At least 80 oz of fluid per day. Equals 10 8 oz glasses, or 2 16 oz glasses. Consider hospice care. If you decide on PT let us know as well could strengthen him. Further recommendations pending the above results and patient's clinical course. Follow-up visit 12-02-2023. The patient indicates understanding of these issues and agrees with the pl documented in this encounter Plan of Treatment Upcoming Encounters Date Type Department Care Team (Late st Contact Info) Description 04/07/2024 10:00 AM RESIDENTIAL LAWN SPECIALIST Office Visit [facility] Family Medicine [address] [address] [place] [address] Evelin Blanco, MANAGER CLINICAL RESEARCH-VETERINARY TECHNOLOGIST [address] [facility] [address] [place] [address] 06/06/2024 2:00 PM CDT Office Visit [facility] - Family Medicine [address] [facility] [address] [place], [place] [phone] [place] [address] [facility] [address] [place] [address] documented as of this encounter Goals Goal Patient Goal Type Associated Problems Recent Progress Patient-Stated? Author Blood Pressure < 140/90 Blood Pressure 96/68(2023 2:34 PM RESIDENTIAL LAWN SPECIALIST) Rere Vargas Note: Caring for Your [...] Where can I go for more information? [place] Heart Association National Center: http://www.americanheart.org 1. In the top header, click ? Conditions? . 2. In the top header, click ? high blood pressure.? 3. For a printable blood pressure tracker, scroll toward the bottom of the page to Related Tools, and click ? HBP Trackers.? 5-991-UTE-USA- or ( ) National Heart, Lung and Blood [place]: http://www.nhlbi.nih.gov/health/infoctr/index.htm Blood Pressure < 140/90 Blood Pressure 96/68(2023 2:34 PM RESIDENTIAL LAWN SPECIALIST) Rere Vargas Note: Caring for Your [...] Where can I go for more information? [place] Heart Association National Center: http://www.americanheart.org 1. In the top header, click ? Conditions? . 2. In the top header, click ? high blood pressure.? 3. For a printable blood pressure tracker, scroll toward the bottom of the page to Related Tools, and click ? HBP Trackers.? 7-835-CHH-USA- or ( ) National Heart, Lung and Blood [place]: http://www.nhlbi.nih.gov/health/infoctr/index.htm Blood Pressure < 140/90 Blood Pressure 96/68(2023 2:34 PM RESIDENTIAL LAWN SPECIALIST) Cassie Parks Note: Caring for Your [...] Where can I go for more information? [place] Heart Association National Center: http://www.americanheart.org 1. In the top header, click ? Conditions? . 2. In the top header, click ? high blood pressure.? 3. For a printable blood pressure tracker, scroll toward the bottom of the page to Related Tools, and click ? HBP Trackers.? 5-124-BFO-USA-1 or ( ) National Heart, Lung and Blood [place]: http://www.nhlbi.nih.gov/health/infoctr/index.htm Exercise 5X per week (30 min per time) Exercise Rere Vargas Note: The [place] College of Sports Medicine recommends all adults [...] how to manage your diabetes: ? ? [place] Diabetes Association: www.diabetes.org 9-876-BDBEODZS ( ) ? ? [place] Diabetes Association-Support group line: www.professional.diabetes.org ? ? [place] Heart Association: www.heart.org or 3-380-RRR-USA-1 ( ) USDA MyPlate: www.Zao.commyplate.gov Have labs drawn Lifestyle No Rere Kaufman [...] Diagnosis Unsteady gait- Primary Abnormality of gait Type 2 diabetes mellitus with stage 3 chronic kidney disease, without long-term current use of insulin, unspecified whether stage 3a or 3b CKD (HCC) Alzheimer's dementia without behavioral disturbance (HCC) Alzheimer's disease Weak Other malaise and fatigue documented in this encounter Care Teams Tank Farm Operator Relationship Specialty [place] [address] [place] [address] PCP - General Internal Medicine 01/26/22 [place] [address] [address] [place] [address] PCP - [facility] 02/19/22 [place] [address] [place] [phone] Ophthalmology 04/06/16 Fawn Ramon DPM [address] [address] [place] [address] Podiatry 01/24/21 documented as of this encounter
--- OUTSIDE RECORDS SUMMARY | 2024-04-03 00:58 | XMS_ITS | Encounter Summary ---
Author Organization [facility] Address [address] [facility] [place] [address] Care Team Providers Care Education Department Chair Name Role Phone Ricco Andrew MD Unavailable [phone] Fawn Ramon DPM Unavailable [phone] Chris Aden MD Primary Care Provider [phone] Chris Aden MD Unavailable Reason for Visit * Reason Onset Date Comments Question 08/31/2023 Diarrhea 08/31/2023 Encounter Details Date Type Department Care Team (Late st Contact Info) Description 08/31/2023 Telephone [facility] - Family Medicine [id number] [place] [address] [place] [address] [phone] Question; Diarrhea Social History Tobacco Use Types Packs/Day Years [...] Telephone Encounter - Ana Dallas RN - 08/31/2023 11:42 AM CDT Pt daughter calling to report pt was taken to [facility] for diarrhea last Wednesday after having had diarrhea x 1 week and becoming weak. He was treated with IVF's and sent home and has a hospital f/u this Wednesday w/the TISSUE COORDINATOR. He takes scheduled Miralax but asking if they should hold this for now. Advised to hold Miralax for the next 2 days while the pt bowels adjust to all of the diarrhea and to resume if it becomes hard to pass stool and follow up about his home medications while here on Wednesday w/ASHER See. documented in this encounter Plan of Treatment Upcoming Encounters Date Type Department Care Team (Late st Contact Info) Description 04/07/2024 10:00 AM ON AIR DIRECTOR Office Visit [address] [address] Evelin Blanco, MOLECULAR BIOLOGY PROFESSOR-ASSOCIATE JAVA DEVELOPER [id number] [place] [address] 06/06/2024 2:00 PM CDT Office Visit [address] [address] Chris Aden MD [address] [place] [phone] documented as of this encounter Goals Goal Patient Goal Type Associated Problems Recent Progress Patient-Stated? Author Blood Pressure < 140/90 Blood Pressure 96/68(2023 2:34 PM ON AIR DIRECTOR) Rere Vargas Note: Caring for Your High [...] Where can I go for more information? [place] Heart Association National Center: http://www.americanheart.org 1. In the top header, click ? Conditions? . 2. In the top header, click ? high blood pressure.? 3. For a printable blood pressure tracker, scroll toward the bottom of the page to Related Tools, and click ? HBP Trackers.? 9-398-YNP-USA-1 or ( ) National Heart, Lung and Blood [place]: http://www.nhlbi.nih.gov/health/infoctr/index.htm Blood Pressure < 140/90 Blood Pressure 96/68(2023 2:34 PM ON AIR DIRECTOR) Rere Vargas Note: Caring for Your High [...] Where can I go for more information? [place] Heart Association National Center: http://www.americanheart.org 1. In the top header, click ? Conditions? . 2. In the top header, click ? high blood pressure.? 3. For a printable blood pressure tracker, scroll toward the bottom of the page to Related Tools, and click ? HBP Trackers.? 5-622-WLC-USA-1 or ( ) National Heart, Lung and Blood [place]: http://www.nhlbi.nih.gov/health/infoctr/index.htm Blood Pressure < 140/90 Blood Pressure 96/68(2023 2:34 PM ON AIR DIRECTOR) Cassie Parks Note: Caring for Your High [...] Where can I go for more information? [place] Heart Association National Center: http://www.americanheart.org 1. In the top header, click ? Conditions? . 2. In the top header, click ? high blood pressure.? 3. For a printable blood pressure tracker, scroll toward the bottom of the page to Related Tools, and click ? HBP Trackers.? 3-711-TIL-USA-1 or ( ) National Heart, Lung and Blood [place]: http://www.nhlbi.nih.gov/health/infoctr/index.htm Exercise 5X per week (30 min per time) Exercise No Rere Kaufman Note: The [place] College of Sports Medicine recommends all adults [...] how to manage your diabetes: ? ? [place] Diabetes Association: www.diabetes.org 2-657-PILPUBXD ( ) ? ? [place] Diabetes Association-Support group line: www.professional.diabetes.org ? ? [place] Heart Association: www.heart.org or 1-568-DYD-USA-1 ( ) [employer] MyPlate: www.Eurus Energy Holdingsmyplate.gov Have labs drawn Lifestyle No Rere Kaufman [...] on filedocumented in this encounter Care Teams Education Department Chair Relationship Specialty [place] [address] [place] [phone] PCP - General Internal Medicine 01/26/22 [place] [address] [place] [phone] PCP - [facility] 02/19/22 [place] [address] [address] [facility] [address] [place] [phone] Ophthalmology 04/06/16 Fawn Ramon DPM [address] [place] [address] Podiatry 01/24/21 documented as of this encounter
--- OUTSIDE RECORDS SUMMARY | 2024-04-03 00:58 | XMS_ITS | Encounter Summary ---
Author Organization [facility] Address [address] [facility] [address] Care Team Providers Care Peanut Sheller Name Role Phone Ricco Andrew MD Unavailable [phone] Fawn Ramon DPM Unavailable [phone] Chris Aden MD Primary Care Provider [phone] Chris Aden MD Unavailable Reason for Visit * Reason Comments Refill Request Encounter Details Date Type Department Care Team (Late st Contact Info) Description 03/29/2023 Refill [facility] - Family Medicine [address] [place] [address] Chris Aden MD [address] [place] [address] Refill Request Social History Tobacco Use [...] st Contact Info) Description 04/07/2024 10:00 AM ASSISTANT REAL ESTATE MANAGER Office Visit [facility] [address] [facility] [address] [place] [address] Chayodevin EvelinNIKITA [address] [facility] [address] [place] [address] 06/06/2024 2:00 PM CDT Office Visit [facility] [address] [facility] [address] [place] [address] [place] [address] [facility] [address] [place] [address] documented as of this encounter Goals Goal Patient Goal Type Associated Problems Recent Progress Patient-Stated? Author Blood Pressure < 140/90 Blood Pressure 96/68(2023 2:34 PM ASSISTANT REAL ESTATE MANAGER) Rere Vargas Note: Caring for Your [...] Where can I go for more information? [place] Heart Association National Center: http://www.americanheart.org 1. In the top header, click ? Conditions? . 2. In the top header, click ? high blood pressure.? 3. For a printable blood pressure tracker, scroll toward the bottom of the page to Related Tools, and click ? HBP Trackers.? 2-529-UHX-USA-1 or ( ) National Heart, Lung and Blood [place]: http://www.nhlbi.nih.gov/health/infoctr/index.htm Blood Pressure < 140/90 Blood Pressure 96/68(2023 2:34 PM ASSISTANT REAL ESTATE MANAGER) Rere Vargas Note: Caring for Your [...] Where can I go for more information? [place] Heart Association National Center: http://www.americanheart.org 1. In the top header, click ? Conditions? . 2. In the top header, click ? high blood pressure.? 3. For a printable blood pressure tracker, scroll toward the bottom of the page to Related Tools, and click ? HBP Trackers.? 4-689-IPI-USA-1 or ( ) National Heart, Lung and Blood [place]: http://www.nhlbi.nih.gov/health/infoctr/index.htm Blood Pressure < 140/90 Blood Pressure 96/68(2023 2:34 PM ASSISTANT REAL ESTATE MANAGER) Cassie Parks Note: Caring for Your [...] Where can I go for more information? [place] Heart Association National Center: http://www.americanheart.org 1. In the top header, click ? Conditions? . 2. In the top header, click ? high blood pressure.? 3. For a printable blood pressure tracker, scroll toward the bottom of the page to Related Tools, and click ? HBP Trackers.? 7-311-GQK-USA-1 or ( ) National Heart, Lung and Blood [place]: http://www.nhlbi.nih.gov/health/infoctr/index.htm Exercise 5X per week (30 min per time) Exercise Rere Vargas Note: The [place] College of Sports Medicine recommends all adults [...] how to manage your diabetes: ? ? [place] Diabetes Association: www.diabetes.org 8-977-ZHRVROHT ( ) ? ? [place] Diabetes Association-Support group line: www.professional.diabetes.org ? ? [place] Heart Association: www.heart.org or 8-599-FOT-USA-1 ( ) [employer] MyPlate: www.Caption Datamyplate.gov Have labs drawn Lifestyle No Rere Kaufman [...] on filedocumented in this encounter Care Teams Peanut Sheller Relationship Specialty [place] [address] [place] [address] PCP - General Internal Medicine 01/26/22 [place] [address] [place] [address] PCP - [facility] 02/19/22 [place] [address] [facility] [address] [place] [address] Ophthalmology 04/06/16 Fawn Ramon DPM [address] [place] [address] Podiatry 01/24/21 documented as of this encounter
--- OUTSIDE RECORDS SUMMARY | 2024-04-03 00:59 | XMS_ITS | Encounter Summary ---
Author Organization [facility] Address [address] [facility] [place] [address] Care Team Providers Care Metal Flooring Installer Name Role Phone Ricco Andrew MD Unavailable [phone] Fawn Ramon DPM Unavailable [phone] Chris Aden MD Primary Care Provider [phone] Chris Aden MD Unavailable Encounter Details Date Type Department Care Team (Latest Contact Info) Description 08/26/2022 3:45 PM CDT - 08/26/2022 11:59 PM CDT Hospital Encounter [facility] Imaging Services - Radiology [address] [place] [address] Evelin Blanco, MARINE STRUCTURAL DESIGNER-ROUTE SALES DRIVER [address] [facility] [address] [place] [address] Discharge Disposition: Home or Self Care Social [...] Orientation Straight 01/22/2023 1: 45 PM CDT COVID-19 Exposure Response Date Recorded In the last 10 days, have alex matamoros been in contact with someone who was confirmed or suspected to have Coronavirus/COVID-19? No / Unsure 08/26/2022 2:21 PM CDT documented as of this encounter Medications at Time of Discharge Medication Sig Dispensed Refills Start Date End Date Acetaminophen (TYLENOL ARTHRITIS PAIN PO) Take 650 mg by mouth 2 times daily DIONICIO ASPIRIN REGIMEN PO Take 81 mg by mouth once daily Blood Glucose Monitoring Suppl (ONE TOUCH ULTRA 2) w/Device KIT Use 1 Each 2 times daily ONE TOUCH ULTRASOFT LANCETS MISC Use 1 Each 2 times daily 33 lucy ONETOUCH ULTRA TEST STRIPS test strip Use 1 strip once daily (One touch mini test strips) 100 strip 2 05/03/2018 budesonide (Pulmicort) 0.25 MG/2ML nebulizer suspension Inhale 2 mL by mouth 2 times daily 10/27/2022 docusate sodium (Colace) 100 MG capsuleIndications:C onstipation Take 1 (one) capsule by mouth 2 times daily Reasons: Constipation 60 capsule 5 04/16/2022 10/06/2022 glipiZIDE (Glucotrol) 5 MG tablet Take 1 (one) tablet by mouth 2 times daily, before breakfast and supper 180 tablet 2 01/26/2022 10/23/2022 ketoconazole (Nizoral) 2 % shampooIndications:S eborrheic Dermatitis of Scalp Apply to affected area Three times a week Reasons: Dandruff 120 mL 5 01/26/2022 05/12/2023 levothyroxine (Synthroid) 75 MCG tablet Take 1 (one) tablet by mouth daily before breakfast 90 tablet 3 01/26/2022 01/18/2023 loratadine (Claritin) 10 MG tablet Take 1 (one) tablet by mouth once daily 90 tablet 3 04/10/2022 10/27/2022 memantine (Namenda) 5 MG tablet Take 1 (one) tablet by mouth 2 times daily 180 tablet 1 05/12/2022 11/09/2022 polyethylene glycol 3350 (Miralax) 17 GM/SCOOP powder 1 capful dissolved in 4-8 oz water or juice daily 527 g 4 04/09/2022 01/18/2023 documented as of this encounter Plan of Treatment Upcoming Encounters Date Type Department Care Team (Late st Contact Info) Description 04/07/2024 10:00 AM FREELANCE PROGRAMMER/APP DEVELOPER Office Visit [facility] [address] [facility] [address] [place] [address] Evelin Blanco APRN-CNP [address] [facility] [address] [place] [address] 06/06/2024 2:00 PM CDT Office Visit [facility] [address] [facility] [address] [place] [address] [place] [address] [address] documented as of this encounter Goals Goal Patient Goal Type Associated Problems Recent Progress Patient-Stated? Author Blood Pressure < 140/90 Blood Pressure 96/68(2023 2:34 PM FREELANCE PROGRAMMER/APP DEVELOPER) Rere Vargas Note: Caring for Your High [...] Where can I go for more information? [place] Heart Association National Center: http://www.americanheart.org 1. In the top header, click ? Conditions? . 2. In the top header, click ? high blood pressure.? 3. For a printable blood pressure tracker, scroll toward the bottom of the page to Related Tools, and click ? HBP Trackers.? 1-401-QQI-USA-1 or ( ) National Heart, Lung and Blood [place]: http://www.nhlbi.nih.gov/health/infoctr/index.htm Blood Pressure < 140/90 Blood Pressure 96/68(2023 2:34 PM FREELANCE PROGRAMMER/APP DEVELOPER) Rere Vargas Note: Caring for Your High [...] Where can I go for more information? [place] Heart Association National Center: http://www.americanheart.org 1. In the top header, click ? Conditions? . 2. In the top header, click ? high blood pressure.? 3. For a printable blood pressure tracker, scroll toward the bottom of the page to Related Tools, and click ? HBP Trackers.? 2-392-OPL-USA-1 or ( ) National Heart, Lung and Blood [place]: http://www.nhlbi.nih.gov/health/infoctr/index.htm Blood Pressure < 140/90 Blood Pressure 96/68(2023 2:34 PM FREELANCE PROGRAMMER/APP DEVELOPER) Cassie Parks Note: Caring for Your High [...] Where can I go for more information? [place] Heart Association National Center: http://www.americanheart.org 1. In the top header, click ? Conditions? . 2. In the top header, click ? high blood pressure.? 3. For a printable blood pressure tracker, scroll toward the bottom of the page to Related Tools, and click ? HBP Trackers.? 9-670-JUZ-USA-1 or ( ) National Heart, Lung and Blood [place]: http://www.nhlbi.nih.gov/health/infoctr/index.htm Exercise 5X per week (30 min per time) Exercise Rere Vargas Note: The [place] College of Sports Medicine recommends all adults [...] how to manage your diabetes: ? ? [place] Diabetes Association: www.diabetes.org 7-615-UZADUGXF ( ) ? ? [place] Diabetes Association-Support group line: www.professional.diabetes.org ? ? [place] Heart Association: www.heart.org or 3-270-IQO-USA-1 ( ) [employer] MyPlate: www.SharePlowmyplate.gov Have labs drawn Lifestyle No Rere Kaufman [...] Procedure Name Priority Date/Time Associated Diagnosis Comments XR ABD OBSTRUCTION SERIES 2VW Routine 08/26/2022 3:59 PM CDT Other constipation XR THORACIC SPINE 3VW Routine 08/26/2022 3:59 PM CDT Acute midline thoracic back pain documented in this encounter Results * XR THORACIC SPINE 3VW (08/26/2022 3:59 [...] MD on 08/26/2022 5:18 PM Evelin Blanco MARINE STRUCTURAL DESIGNER-ROUTE SALES DRIVER DIAGNOSTIC IMAG ING ORDERABLES * XR ABD OBSTRUCTION SERIES 2VW (08/26/2022 [...] MD on 08/26/2022 4:10 PM Evelin Blanco MARINE STRUCTURAL DESIGNER-ROUTE SALES DRIVER DIAGNOSTIC IMAG ING ORDERABLES documented in this encounter Visit Diagnoses Diagnosis Other constipation Acute midline thoracic back pain documented in this encounter Care Teams Metal Flooring Installer Relationship Specialty [place] [address] [place] [address] PCP - General Internal Medicine 01/26/22 [place] [address] [address] [place] [address] PCP - Attributed-[facility] 02/19/22 [place] [address] [facility] [address] [place] [address] Ophthalmology 04/06/16 Fawn Ramon DPM [address] [address] [place] [address] Podiatry 01/24/21 documented as of this encounter
--- OUTSIDE RECORDS SUMMARY | 2024-04-03 00:59 | XMS_ITS | Encounter Summary ---
Author Organization [facility] Address [address] [facility] [place] [address] Care Team Providers Care Lead Infrastructure Architect Name Role Phone Ricco Andrew MD Unavailable [phone] Fawn Ramon DPM Unavailable [phone] Chris Aden MD Primary Care Provider [phone] Chris Aden MD Unavailable Reason for Visit * Reason Onset Date Comments Constipation 08/25/2022 Med Question 08/25/2022 Encounter Details Date Type Department Care Team (Late st Contact Info) Description 08/25/2022 Telephone [facility] - Family Medicine [id number] [place] [address] [place] [id number] [address] Constipation; Med Question Social History Tobacco Use Types Packs/Day Years [...] Telephone Encounter - Ana Dallas RN - 08/26/2022 8:14 AM CDT Pt called, spoke with daughter Cassie to give advisement of PCP. Appt scheduled with SMOKE CONTROL SUPERVISORMayi for today. * Telephone Encounter - Katie Mena RN - 08/25/2022 2:33 PM CDT Patient daughter inquiring advisement for patient is having pain in back on left site, pain is unable to say what pain level is, patient said when patient is holding side there is no pain, pain occurs when patient reaches for something, patient's daughter seeing facial expressions of pain. no fever, Patient only taking half a cap of the miralax daily. Today no BM in three days, no vomiting, eating and drinking water. Patient's daughter requesting PCP advisement with callback. documented in this encounter Plan of Treatment Upcoming Encounters Date Type Department Care Team (Late st Contact Info) Description 04/07/2024 10:00 AM ELECTRICAL ASSEMBLY TECHNICIAN Office Visit [address] [address] Evelin Blanco, PARAMEDIC RN-SUPERVISING CHEF [address] [id number] 06/06/2024 2:00 PM CDT Office Visit [address] [address] [place] Ad[place] [id number] [place] [address] documented as of this encounter Goals Goal Patient Goal Type Associated Problems Recent Progress Patient-Stated? Author Blood Pressure < 140/90 Blood Pressure 96/68(2023 2:34 PM ELECTRICAL ASSEMBLY TECHNICIAN) Rere Vargas Note: Caring for Your [...] Where can I go for more information? [place] Heart Association National Center: http://www.americanheart.org 1. In the top header, click ? Conditions? . 2. In the top header, click ? high blood pressure.? 3. For a printable blood pressure tracker, scroll toward the bottom of the page to Related Tools, and click ? HBP Trackers.? 6-627-LTI-USA-1 or ( ) National Heart, Lung and Blood [place]: http://www.nhlbi.nih.gov/health/infoctr/index.htm Blood Pressure < 140/90 Blood Pressure 96/68(2023 2:34 PM ELECTRICAL ASSEMBLY TECHNICIAN) Rere Vargas Note: Caring for Your [...] Where can I go for more information? [place] Heart Association National Center: http://www.americanheart.org 1. In the top header, click ? Conditions? . 2. In the top header, click ? high blood pressure.? 3. For a printable blood pressure tracker, scroll toward the bottom of the page to Related Tools, and click ? HBP Trackers.? 4-251-BZY-USA-1 or ( ) National Heart, Lung and Blood [place]: http://www.nhlbi.nih.gov/health/infoctr/index.htm Blood Pressure < 140/90 Blood Pressure 96/68(2023 2:34 PM ELECTRICAL ASSEMBLY TECHNICIAN) Cassie Parks Note: Caring for Your [...] Where can I go for more information? [place] Heart Association National Center: http://www.americanheart.org 1. In the top header, click ? Conditions? . 2. In the top header, click ? high blood pressure.? 3. For a printable blood pressure tracker, scroll toward the bottom of the page to Related Tools, and click ? HBP Trackers.? 5-416-KUB-USA-1 or ( ) National Heart, Lung and Blood [place]: http://www.nhlbi.nih.gov/health/infoctr/index.htm Exercise 5X per week (30 min per time) Exercise No Rere Kaufman Note: The [place] College of Sports Medicine recommends all adults [...] how to manage your diabetes: ? ? [place] Diabetes Association: www.diabetes.org 5-307-RIBMHSGH ( ) ? ? [place] Diabetes Association-Support group line: www.professional.diabetes.org ? ? [place] Heart Association: www.heart.org or 3-475-EEN-USA-1 ( ) [employer] MyPlate: www.KSK Power Venturemyplate.gov Have labs drawn Lifestyle Rere Vargas Note: [...] on filedocumented in this encounter Care Teams Lead Infrastructure Architect Relationship Specialty [place] [address] [address] [place] [address] PCP - General Internal Medicine 01/26/22 [place] [address] [address] [place] [address] PCP - Attributed-[facility] 02/19/22 [place] [address] [facility] [address] [place] [address] Ophthalmology 04/06/16 Fawn Ramon DPM [address] [address] [place] [address] Podiatry 01/24/21 documented as of this encounter
--- OUTSIDE RECORDS SUMMARY | 2024-04-03 00:59 | XMS_ITS | Encounter Summary ---
Author Organization [facility] Address [address] [place] [address] Care Team Providers Care Blind Eyeletter Name Role Phone Ricco Andrew MD Unavailable [phone] Fawn Ramon DPM Unavailable [phone] Chris Aden MD Primary Care Provider [phone] Chris Aden MD Unavailable Reason for Visit * Reason Comments Refill Request Encounter Details Date Type Department Care Team (Late Contact Info) Description 05/12/2022 Refill [facility] - Family Medicine [address] [place] [address] Chris Aden MD [address] [place] [address] Refill Request Social History Tobacco Use Types Packs/Day Years Used Date Smoking Tobacco: Never Smokeless Tobacco: Former Chew Quit: 01/02/2021 Alcohol Use Standard Drinks/Week Comments No 0 (1 standard drink = 0.6 oz pur e alcohol) PHQ-2 Answer Date Recorded PHQ2 TOTAL SCORE 0 04/09/2022 Sex and Gender Information Value Date Recorded Sex Assigned at Male 01/22/2023 1:45 PM CDT Gender Identity Male 01/22/2023 1:45 PM CDT Sexual Orientation Straight 01/22/2023 1: 45 PM CDT documented as of this encounter Plan of Treatment Upcoming Encounters Date Type Department Care Team (Late st Contact Info) Description 04/07/2024 10:00 AM MANAGER CHEMICAL Office Visit [facility] [address] [facility] [place] [place] [address] [place] [address] Evelin Blanco APRN-CNP [address] [facility] [place] [address] [place], [place] [id number] 06/06/2024 2:00 PM CDT Office Visit [facility] [address] [facility] [place] [address] [place] [address] [place] [address] [facility] [address] [place] [address] documented as of this encounter Goals Goal Patient Goal Type Associated Problems Recent Progress Patient-Stated? Author Blood Pressure < 140/90 Blood Pressure 96/68(2023 2:34 PM MANAGER CHEMICAL) Rere Vargas Note: Caring for Your High [...] Where can I go for more information? [place] Heart Association National Center: http://www.americanheart.org 1. In the top header, click ? Conditions? . 2. In the top header, click ? high blood pressure.? 3. For a printable blood pressure tracker, scroll toward the bottom of the page to Related Tools, and click ? HBP Trackers.? 8-085-NIR-USA-1 or ( ) National Heart, Lung and Blood [place]: http://www.nhlbi.nih.gov/health/infoctr/index.htm Blood Pressure < 140/90 Blood Pressure 96/68(2023 2:34 PM MANAGER CHEMICAL) Rere Vargas Note: Caring for Your High [...] Where can I go for more information? [place] Heart Association National Center: http://www.americanheart.org 1. In the top header, click ? Conditions? . 2. In the top header, click ? high blood pressure.? 3. For a printable blood pressure tracker, scroll toward the bottom of the page to Related Tools, and click ? HBP Trackers.? 1-752-LQY-USA-1 or ( ) National Heart, Lung and Blood [place]: http://www.nhlbi.nih.gov/health/infoctr/index.htm Blood Pressure < 140/90 Blood Pressure 96/68(2023 2:34 PM MANAGER CHEMICAL) Cassie Parks Note: Caring for Your High [...] Where can I go for more information? [place] Heart Association National Center: http://www.americanheart.org 1. In the top header, click ? Conditions? . 2. In the top header, click ? high blood pressure.? 3. For a printable blood pressure tracker, scroll toward the bottom of the page to Related Tools, and click ? HBP Trackers.? 4-466-DQT-USA-1 or ( ) National Heart, Lung and Blood [place]: http://www.nhlbi.nih.gov/health/infoctr/index.htm Exercise 5X per week (30 min per time) Exercise Rere Vargas Note: The [place] College of Sports Medicine recommends all adults [...] how to manage your diabetes: ? ? [place] Diabetes Association: www.diabetes.org 8-405-RFIAYIJQ ( ) ? ? [place] Diabetes Association-Support group line: www.professional.diabetes.org ? ? [place] Heart Association: www.heart.org or 3-547-HSL-USA-1 ( ) [employer] MyPlate: www.Quantenna Communicationsmyplate.gov Have labs drawn Lifestyle No Rere Kaufman [...] on filedocumented in this encounter Care Teams Blind Eyeletter Relationship Specialty [place] [address] [place] [address] PCP - General Internal Medicine 01/26/22 [place] [address] [address] [place] [address] PCP - [facility] 02/19/22 [place] [address] [facility] [address] [place] [address] Ophthalmology 04/06/16 Fawn Ramon DPM [address] [address] [place] [address] Podiatry 01/24/21 documented as of this encounter
--- OUTSIDE RECORDS SUMMARY | 2024-04-03 00:59 | XMS_ITS | Encounter Summary ---
Author Organization [facility] Address [address] [place] [address] Care Team Providers Care Physical Chemist Name Role Phone Ricco Andrew MD Unavailable [phone] Rosana Solo MD Unavailable [phone] Fawn Ramon DPM Unavailable [phone] Reason for Visit * Reason Comments Refill Request Encounter Details Date Type Department Care Team (Late st Contact Info) Description 08/18/2021 Refill [facility] - Family Medicine [address] [facility] [address] [place] [address] Evelin Blanco, [facility] [address] [facility] [address] [place] [address] Refill Request Social History Tobacco Use Types Packs/Day Years Used Date Smoking Tobacco: Never Smokeless Tobacco: Former Chew Quit: 01/02/2021 Alcohol Use Standard Drinks/Week Comments No 0 (1 standard drink = 0.6 oz pur e alcohol) PHQ-2 Answer Date Recorded PHQ2 TOTAL SCORE 1 07/23/2021 Sex and Gender Information Value Date Recorded Sex Assigned at Male 01/22/2023 1:45 PM CDT Gender Identity Male 01/22/2023 1:45 PM CDT Sexual Orientation Straight 01/22/2023 1: 45 PM CDT COVID-19 Exposure Response Date Recorded In the last 10 days, have yo u been in contact with someone who was confirmed or suspected to have Coronavirus/COVID-19? No / Unsure 07/22/2021 11:48 AM CDT documented as of this encounter Miscellaneous Notes * Telephone Encounter - Vera Russo - 08/18/2021 3:34 PM CDT Requested Prescriptions Pending Prescriptions Disp Refills ??? glipiZIDE (GLUCOTROL) 5 MG tablet [Pharmacy Med Name: GLIPIZIDE 5 MG TABLET] 180 tablet 1 Sig: TAKE 1 (ONE) TABLET BY MOUTH 2 TIMES DAILY, BEFORE BREAKFAST AND SUPPER ALLERGIES: ibuprofen, septra Date of last refill: 01/20/2021 Last visit: 07/23/2021 with julia Upcoming visit: 02/08/2022 documented in this encounter Plan of Treatment Upcoming Encounters Date Type Department Care Team (Late st Contact Info) Description 04/07/2024 10:00 AM MEDICAL IMAGING SPECIALIST Office Visit [facility] [id number] [place] [address] Evelin Blanco, [employer] BUSINESS ANALYST-BREASTER [id number] [place] [address] 06/06/2024 2:00 PM CDT Office Visit [facility] [id number] [place] [address] Chris Aden MD [id number] [place] [id number] documented as of this encounter Goals Goal Patient Goal Type Associated Problems Recent Progress Patient-Stated? Author Blood Pressure < 140/90 Blood Pressure 96/68(2023 2:34 PM MEDICAL IMAGING SPECIALIST) Rere Vargas Note: Caring for Your [...] Where can I go for more information? [place] Heart Association National Center: http://www.americanheart.org 1. In the top header, click ? Conditions? . 2. In the top header, click ? high blood pressure.? 3. For a printable blood pressure tracker, scroll toward the bottom of the page to Related Tools, and click ? HBP Trackers.? 3-888-JVZ-USA-1 or ( ) National Heart, Lung and Blood [place]: http://www.nhlbi.nih.gov/health/infoctr/index.htm Blood Pressure < 140/90 Blood Pressure 96/68(2023 2:34 PM MEDICAL IMAGING SPECIALIST) Rere Vargas Note: Caring for Your [...] Where can I go for more information? [place] Heart Association National Center: http://www.americanheart.org 1. In the top header, click ? Conditions? . 2. In the top header, click ? high blood pressure.? 3. For a printable blood pressure tracker, scroll toward the bottom of the page to Related Tools, and click ? HBP Trackers.? 0-708-YTH-USA-1 or ( ) National Heart, Lung and Blood [place]: http://www.nhlbi.nih.gov/health/infoctr/index.htm Blood Pressure < 140/90 Blood Pressure 96/68(2023 2:34 PM MEDICAL IMAGING SPECIALIST) Cassie Parks Note: Caring for Your [...] Where can I go for more information? [place] Heart Association National Center: http://www.americanheart.org 1. In the top header, click ? Conditions? . 2. In the top header, click ? high blood pressure.? 3. For a printable blood pressure tracker, scroll toward the bottom of the page to Related Tools, and click ? HBP Trackers.? 0-006-ILR-USA-1 or ( ) National Heart, Lung and Blood [place]: http://www.nhlbi.nih.gov/health/infoctr/index.htm Exercise 5X per week (30 min per time) Exercise No Rere Kaufman Note: The [place] [employer] recommends all adults [...] how to manage your diabetes: ? ? [place] Diabetes Association: www.diabetes.org 0-299-HABERUMX ( ) ? ? [place] Diabetes Association-Support group line: www.professional.diabetes.org ? ? [place] Heart Association: www.heart.org or 8-295-PLO-USA-1 ( ) Pollsb MyPlate: www.[employer] Intelligencemyplate.gov Have labs drawn Lifestyle No Rere Kaufman [...] on filedocumented in this encounter Care Teams Physical Chemist Relationship Specialty Start Date End Date Rosana Solo MD [address] [facility] [address] [place] [address] PCP - Attributed-[facility] 02/19/19 [place] [address] [facility] [address] [facility] [address] [place] [id number] Ophthalmology 04/06/16 Fawn Ramon DPM [address] [place] [address] Podiatry 01/24/21 documented as of this encounter
--- OUTSIDE RECORDS SUMMARY | 2024-04-03 00:59 | XMS_ITS | Encounter Summary ---
Author Organization [facility] Address [address] [place] [address] Care Team Providers Care Store Team Member Name Role Phone Ricco Andrew MD Unavailable [phone] Fawn Ramon DPM Unavailable Chris Aden MD Primary Care Provider [phone] Chris Aden MD Unavailable Encounter Details Date Type Department Care Team (Late st Contact Info) Description 05/25/2022 Orders Only [facility] - Family Medicine [id number] [place] [address] Chris Aden MD [address] [place] [phone] Social History Tobacco Use Types Packs/Day Years Used Date Smoking Tobacco: Never Smokeless Tobacco: Former Chew Quit: 01/02/2021 Alcohol Use Standard Drinks/Week Comments No 0 (1 standard drink = 0.6 oz pur e alcohol) PHQ-2 Answer Date Recorded PHQ2 TOTAL SCORE 0 05/26/2022 Sex and Gender Information Value Date Recorded Sex Assigned at Male 01/22/2023 1:45 PM CDT Gender Identity Male 01/22/2023 1:45 PM CDT Sexual Orientation Straight 01/22/2023 1: 45 PM CDT documented as of this encounter Plan of Treatment Upcoming Encounters Date Type Department Care Team (Late st Contact Info) Description 04/07/2024 10:00 AM SADDLE MAKER Office Visit [facility] [address] [facility] [address] [place] [address] Evelin Blanco APRN-CNP [address] [facility] [address] [place] [address] 06/06/2024 2:00 PM CDT Office Visit [facility] [address] [facility] [address] [place], [place] [id number] [place] [address] [phone] documented as of this encounter Goals Goal Patient Goal Type Associated Problems Recent Progress Patient-Stated? Author Blood Pressure < 140/90 Blood Pressure 96/68(2023 2:34 PM SADDLE MAKER) Rere Vargas Note: Caring for Your High [...] Where can I go for more information? [place] Heart Association National Center: http://www.americanheart.org 1. In the top header, click ? Conditions? . 2. In the top header, click ? high blood pressure.? 3. For a printable blood pressure tracker, scroll toward the bottom of the page to Related Tools, and click ? HBP Trackers.? 0-149-MYZ-USA- or ( ) National Heart, Lung and Blood [place]: http://www.nhlbi.nih.gov/health/infoctr/index.htm Blood Pressure < 140/90 Blood Pressure 96/68(2023 2:34 PM SADDLE MAKER) Rere Vargas Note: Caring for Your High [...] Where can I go for more information? [place] Heart Association National Center: http://www.americanheart.org 1. In the top header, click ? Conditions? . 2. In the top header, click ? high blood pressure.? 3. For a printable blood pressure tracker, scroll toward the bottom of the page to Related Tools, and click ? HBP Trackers.? 2-711-NKV-USA- or ( ) National Heart, Lung and Blood [place]: http://www.nhlbi.nih.gov/health/infoctr/index.htm Blood Pressure < 140/90 Blood Pressure 96/68(2023 2:34 PM SADDLE MAKER) Cassie Parks Note: Caring for Your High [...] Where can I go for more information? [place] Heart Association National Center: http://www.americanheart.org 1. In the top header, click ? Conditions? . 2. In the top header, click ? high blood pressure.? 3. For a printable blood pressure tracker, scroll toward the bottom of the page to Related Tools, and click ? HBP Trackers.? 2-804-HCA-USA-1 or ( ) National Heart, Lung and Blood Society [place]: http://www.nhlbi.nih.gov/health/infoctr/index.htm Exercise 5X per week (30 min per time) Exercise Rere Vargas Note: The [place] [employer] recommends all adults [...] how to manage your diabetes: ? ? [place] Diabetes Association: www.diabetes.org 5-648-ODHLVEZN ( ) ? ? [place] Diabetes Association-Support group line: www.professional.diabetes.org ? ? [place] Heart Association: www.heart.org or 0-527-CPT-USA-1 ( ) [employer] MyPlate: www.Offermaticamyplate.gov Have labs drawn Lifestyle No Rere Kaufman [...] on filedocumented in this encounter Care Teams Store Team Member Relationship Specialty [place] [address] [place] [address] PCP - General Internal Medicine 01/26/22 [place] [address] [place] [address] PCP - [facility] 02/19/22 [place] [address] [facility] [address] [place] [address] Ophthalmology 04/06/16 Fawn Ramon DPM [address] [place] [address] Podiatry 01/24/21 documented as of this encounter
--- OUTSIDE RECORDS SUMMARY | 2024-04-03 00:59 | XMS_ITS | Encounter Summary ---
Author Organization [facility] Address [address] [place] [address] Care Team Providers Care Supervisor/Port Director Name Role Phone Ricco Andrew MD Unavailable [phone] Fawn Ramon DPM Unavailable [phone] Chris Aden MD Primary Care Provider [phone] Reason for Visit * Reason Onset Date Comments Establish Care Imm Inj 01/26/2022 Encounter Details Date Type Department Care Team (Late st Contact Info) Description 01/26/2022 2:00 PM RN ONCOLOGY Office Visit [facility] [id number] [place] [id number] Chris Aden MD [address] [place] [phone] Seborrheic dermatitis of scalp (Primary Dx); Type 2 diabetes mellitus with diabetic neuropathy, without long-term current use of insulin (HCC); Type 2 diabetes mellitus with stage 3 chronic kidney disease, without long-term current use of insulin, unspecified whether stage 3a or 3b CKD (HCC); 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, without long-term current use of insulin, unspecified retinopathy severity ([facility]); Alzheimer's dementia without behavioral disturbance (HCC); Stage 3b chronic kidney disease (HCC); Seasonal allergic rhinitis due to pollen; Hypothyroidism, adult; Routine general medical examination at a health care facility; Screening for hyperlipidemia; Encounter for vitamin deficiency screening; Need for prophylactic vaccination and inoculation against influenza Social History Tobacco Use Types Packs/Day Years Used Date Smoking Tobacco: Never Smokeless Tobacco: Former Chew Quit: 01/02/2021 Alcohol Use Standard Drinks/Week Comments No 0 (1 standard drink = 0.6 oz pur e alcohol) PHQ-2 Answer Date Recorded PHQ2 TOTAL SCORE 0 01/26/2022 Sex and Gender Information Value Date Recorded Sex Assigned at Male 01/22/2023 1:45 PM CDT Gender Identity Male 01/22/2023 1:45 PM CDT Sexual Orientation Straight 01/22/2023 1: 45 PM CDT documented as of this encounter Last Filed Vital Signs Vital Sign Reading Time Taken Comments Blood Pressure 104/64 01/26/2022 2:15 PM RN ONCOLOGY Pulse 77 01/26/2022 2:15 PM RN ONCOLOGY Temperature 36.1 ??C (97 ??F) 01/26/2022 2:15 PM RN ONCOLOGY Respiratory Rate 18 01/26/2022 2:15 PM RN ONCOLOGY Oxygen Saturation 96% 01/26/2022 2:15 PM RN ONCOLOGY Inhaled Oxygen Concentration - - Weight 71.8 kg (158 lb 6.4 oz) 01/26/2022 2:15 P M RN ONCOLOGY Height 170.2 cm (5' 7) 01/26/2022 2:15 PM RN ONCOLOGY Body Mass Index 24.81 01/26/2022 2:15 PM RN ONCOLOGY documented in this encounter Progress Notes * Juany Sommers MA - 01/26/2022 3:09 PM CST Flu screening checklist was reviewed with the patient. VIS was given prior to administration. Injection site aseptically cleansed and injection given per Immunization(s) protocol. See Imm/Injections activity for details. ONCOLOGY * Chris Aden MD - 01/26/2022 2:42 PM CST MEDICARE ANNUAL WELLNESS VISIT REVIEW OF BENEFICIARY'S MEDICAL AND SOCIAL HISTORY I have documented, updated and reviewed the below components of the patient's history: Past Medical History: Diagnosis Date ??? Benign hypertension with chronic kidney disease 02/05/2016 BP controlled off rx. resolved ??? Chronic renal failure ??? Dementia ??? Dermatitis ??? DM (diabetes mellitus) ??? HTN (hypertension) ??? Hx of rheumatic [...] file Tobacco Use ??? Smoking status: Never ??? Smokeless tobacco: Former Types: Chew Quit [...] on file Transportation Needs: Not on file Physical Activity: Not on file Stress: Not on file Social Connections: Not on file Intimate Partner Violence: Not on file Housing Stability: Not on [...] 81 mg by mouth once daily ??? glipiZIDE (Glucotrol) 5 MG tablet Take 1 (one) tablet by mouth 2 times daily, before breakfast and supper 180 tablet 2 ??? ketoconazole (Nizoral) 2 % shampoo Apply to affected area Three times a week Reasons: Dandruff 120 mL 5 ??? levothyroxine (Synthroid) 75 MCG tablet Take 1 (one) tablet by mouth daily before breakfast 90 tablet 3 ??? loratadine (CLARITIN) 10 MG tablet TAKE 1 TABLET BY MOUTH EVERY DAY 90 tablet 3 ??? memantine (Namenda) 5 MG tablet TAKE 1 TABLET BY MOUTH TWICE A DAY 180 tablet 1 ??? TradiioUCH ULTRA TEST STRIPS test strip Use 1 strip once daily (One touch mini test strips) (Patient taking differently: Use 1 (one) strip 2 times daily (One touch mini test strips)) 100 strip 2 No current facility-administered medications for this visit. CURRENT DIET does not restrict carbohydrates PHYSICAL ACTIVITY Exercise: irregularly DEPRESSION SCREENING AND RISK FACTORS Depression risk factors identified: no PHQ-2:PHQ2 TOTAL SCORE: 0 PHQ-9: HEALTH RISK ASSESSMENT, FUNCTIONAL ABILITY & SAFETY Self Assessment 1. During the past 4 weeks, how would you rate your health in general?: Excellent Risks 2. Do you have problems with [...] in physical activity or exercise each week?: (!) No 8. Do you have sexual problems or [...] >2 x or injured from the fall?: No 16. Do you feel unsteady when standing [...] with your teeth or dentures?: No Function 26. Do you have any history of leaking urine or urinary incontinence?: No CURRENT CARE PROVIDERS Patient Care Team: Chris Aden MD as PCP - General (Internal Medicine) Ricco Andrew MD (Ophthalmology) Fawn Ramon DPM (Podiatry) [employer]-LIFE PLANNING ADVANCED DIRECTIVE: Yes CODE STATUS Full Code HISTORY AND PHYSICAL PCP: Chris Aden MD SUBJECTIVE: Mk Sanches is a 86 year old male who presents today to be established. Patient was brought by his daughter. He is on wheelchair. Patient came in follow-up of seborrheic dermatitis of the scalp, would like prescriptions. History of diabetes, Alzheimer disease, chronic kidney disease, allergic rhinitis, Past Medical History: Diagnosis Date ??? Benign hypertension with chronic kidney disease 02/05/2016 BP controlled off rx. resolved ??? Chronic renal failure ??? Dementia ??? Dermatitis ??? DM (diabetes mellitus) ??? HTN (hypertension) ??? Hx of rheumatic fever ??? Hypothyroid ??? Seasonal allergies ??? Trigger finger Past Surgical History: Procedure Laterality Date ??? NEGATIVE SURGICAL HISTORY Family History Family history unknown: Yes Social History Tobacco Use ??? Smoking status: Never ??? Smokeless tobacco: Former Types: Chew Quit date: 01/02/2021 Vaping Use ??? Vaping Use: Never used Substance Use Topics ??? Alcohol use: No ??? Drug use: No Current Outpatient Medications on File Prior to Visit Medication Sig Dispense Refill ??? Acetaminophen (TYLENOL ARTHRITIS PAIN PO) Take 500 mg by mouth Two times a week ??? DIONICIO ASPIRIN REGIMEN PO Take 81 mg by mouth once daily ??? loratadine (CLARITIN) 10 MG tablet TAKE 1 TABLET BY MOUTH EVERY DAY 90 tablet 3 ??? memantine (Namenda) 5 MG tablet TAKE 1 TABLET BY MOUTH TWICE A DAY 180 tablet 1 ??? ONETOUCH ULTRA TEST STRIPS test strip Use 1 strip once daily (One touch mini test strips) (Patient taking differently: Use 1 (one) strip 2 times daily (One touch mini test strips)) 100 strip 2 No current facility-administered medications on file prior to visit. Allergies Allergen Reactions ??? Ibuprofen Other HE HAS CKD AND SHOULD NOT TAKE NSAID'S ??? Septra Ds [Sulfamethoxazole W-Trimethoprim] Rash Review of Systems All other systems reviewed and are negative. OBJECTIVE: Vitals: 01/26/22 1415 BP: 104/64 Pulse: 77 Resp: 18 Temp: 97 ??F (36.1 ??C) SpO2: 96% Weight: 71.8 kg (158 lb 6.4 oz) Height: 1.702 m (5' 7) Recent Labs Component Name 03/04/21 1529 03/04/20 1424 08/30/19 1505 SODIUM 141 135* 137 POTASSIUM 4.6 4.4 4.7 CHLORIDE 106 99 103 BUN 22 22 27* CREATININE 1.66* 1.44* 1.67* GLUCOSE 119* 137 218* 180 168* 177 CALCIUM 9.3 8.5 9.0 Recent Labs Component Name 03/04/21 1529 08/30/19 1505 04/06/16 1536 WBC 6.2 7.6 5.3 HGB 14.1 14.5 13.8 HCT 45.3 46.0 42.5 PLTCOUNT 224 262 232 Recent Labs Component Name 03/04/21 1529 08/30/19 1505 03/02/18 1347 CHOL 160 177 171 PHYSICAL EXAM: Physical Exam Vitals and nursing note reviewed. Constitutional: Appearance: Normal appearance. HENT: Head: Normocephalic and atraumatic. Right Ear: Tympanic membrane normal. Left Ear: Tympanic membrane normal. Eyes: Extraocular Movements: Extraocular movements intact. Conjunctiva/sclera: Conjunctivae normal. Pupils: Pupils are equal, round, and reactive to light. Cardiovascular: Rate and Rhythm: Normal rate. Pulses: Normal pulses. Heart sounds: Normal heart sounds. Pulmonary: Effort: Pulmonary effort is normal. Breath sounds: Normal breath sounds. Abdominal: General: Abdomen is flat. Bowel sounds are normal. Musculoskeletal: General: Normal range of motion. Cervical back: Normal range of motion and neck supple. Skin: General: Skin is warm and dry. Neurological: General: No focal deficit present. Mental Status: He is alert and oriented to person, place, and time. Psychiatric: Thought Content: Thought content normal. Judgment: Judgment normal. ASSESSMENT: 1. Type 2 diabetes mellitus with diabetic neuropathy, without long-term current use of insulin ([facility]) 2. Seborrheic dermatitis of scalp 3. Type 2 diabetes mellitus with stage 3 chronic kidney disease, without long- term current use of insulin, unspecified whether stage 3a or 3b CKD ([facility]) 4. 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 Alzheimer's dementia without behavioral disturbance ([facility]) 6. Stage 3b chronic kidney disease ([facility]) 7. Seasonal allergic rhinitis due to pollen 8. Hypothyroidism, adult 9. Routine general medical examination at a health care facility 10. Screening for hyperlipidemia 11. Encounter for vitamin deficiency screening PLAN: Orders Placed This Encounter ??? LIPID [...] to patient Answer: Immediate ??? HEMOGLOBIN A1C - POINT OF CARE (AMB) Order Specific Question: Release to patient Answer: Immediate ??? glipiZIDE (Glucotrol) 5 MG tablet Sig: Take 1 (one) tablet by mouth 2 times daily, before breakfast and supper Dispense: 180 tablet Refill: 2 ??? ketoconazole (Nizoral) 2 % shampoo Sig: Apply to affected area Three times a week Reasons: Dandruff Dispense: 120 mL Refill: 5 ??? levothyroxine (Synthroid) 75 MCG tablet Sig: Take 1 (one) tablet by mouth daily before breakfast Dispense: 90 tablet Refill: 3 Previous notes reviewed the patient Medication reviewed the patient. Labs and imaging reviewed the patient Discussed with the patient the finding plan treatment, agreed to the plan. Seborrheic dermatitis of the scalp. Knees are all 2% shampoo 3 times weekly. Hypothyroidism: Synthroid 75 mg p.o. daily. To be taking empty stomach. Allergic rhinitis, Claritin 10 mg p.o. daily. Dementia: Namenda 5 mg p.o. twice a day. Diabetes type 2: Glipizide 5 mg p.o. twice a day. 1800 calories diabetic diet encouraged. Check the feet on daily basis looking for callus lesions. Follow-up with ophthalmology as scheduled Chronic kidney disease: Will monitor creatinine and kidney function. Referral to Nephrology done today. Care gap discussed with the patient. Lab will be done this week. Referral to Nephrology done today. Follow-up five months or as needed. Ryan Aden MD PHYSICAL EXAM Vitals: 01/26/22 1415 BP: 104/64 Pulse: 77 Resp: 18 Temp: 97 ??F (36.1 ??C) SpO2: 96% Weight: 71.8 kg (158 lb 6.4 oz) Height: 1.702 m (5' 7) Body mass index is 24.81 kg/m??. VISUAL ACUITY SCREEN No results found. ASSESSMENT AND PLAN ICD-10-CM 1. Type 2 diabetes mellitus with diabetic neuropathy, without long-term current use of insulin ([facility]) E11.40 HEMOGLOBIN A1C - POINT OF CARE (AMB) 2. Seborrheic dermatitis of scalp L21.9 ketoconazole (Nizoral) 2 % shampoo improved over past year. Continue Ketoconazole. Monitor 3. Type 2 diabetes mellitus with stage 3 chronic kidney disease, without long- term current use of insulin, unspecified whether stage 3a or 3b CKD ([facility]) E11.22 HEMOGLOBIN A1C - POINT OF CARE (AMB) N18.30 4. 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 Alzheimer's dementia without behavioral disturbance ([facility]) G30.9 F02.80 6. Stage 3b chronic kidney disease ([facility]) N18.32 HEMOGLOBIN A1C W EAG MICROALB/CREAT RATIO URINE RANDOM PANEL 7. Seasonal allergic rhinitis due to pollen J30.1 8. Hypothyroidism, adult E03.9 9. Routine general medical examination at a health care facility Z00.00 HM RISK ADJUSTED VISIT COMPREHENSIVE METABOLIC PANEL CBC W/O DIFFERENTIAL URINALYSIS REFLEX TO MICROSCOPIC NO CULTURE 10. Screening for hyperlipidemia Z13.220 LIPID PROFILE W TCHOL/HDL 11. Encounter for vitamin deficiency screening Z13.21 VITAMIN D 25-HYDROXY SCREENING SCHEDULE Health Maintenance Topic Date Due ??? HEPATITIS B VACCINE (1 of 3 - 3-dose series) Never done ??? ZOSTER VACCINE (1 of 2) Never done ??? COVID-19 VACCINE (3 - Booster for Moderna series) 09/04/2020 ??? DIABETES-HGB A1C 09/02/2021 ??? INFLUENZA VACCINE (1) 11/20/2021 ??? DIABETES-FOOT EXAM WITH MONOFILAMENT 03/04/2022 ??? DIABETES-EYE EXAM 01/07/2023 ??? HCC (Chart Reviewer Use Only) 01/26/2023 ??? DTAP/TDAP/TD VACCINES (3 - Td or Tdap) 10/03/2029 ??? PNEUMOCOCCAL VACCINE 65+ Completed ??? MEDICARE AWV - CALENDAR YEAR Completed ??? DEPRESSION SCREENING Completed ??? HIB VACCINE Aged Out ??? MENINGOCOCCAL VACCINE Aged Out ??? DIABETES-STATIN Discontinued EDUCATION, COUNSELING, AND REFERRAL BASED ON THE PREVIOUS SCREENING Above screenings were performed and referrals were made as appropriately needed. Orders Placed This Encounter ??? LIPID PROFILE W TCHOL/HDL ??? COMPREHENSIVE METABOLIC PANEL ??? CBC W/O DIFFERENTIAL ??? URINALYSIS REFLEX TO MICROSCOPIC NO CULTURE ??? HEMOGLOBIN A1C W EAG ??? MICROALB/CREAT RATIO URINE RANDOM PANEL ??? VITAMIN D 25-HYDROXY ??? HEMOGLOBIN A1C - POINT OF CARE (AMB) ??? glipiZIDE (Glucotrol) 5 MG tablet ??? ketoconazole (Nizoral) 2 % shampoo ??? levothyroxine (Synthroid) 75 MCG tablet ONCOLOGY * Cassie Marie - 01/26/2022 2:23 PM CST Patient is here today to establish care and for a recent fall. Blood pressure 104/64, pulse 77, temperature 97 ??F (36.1 ??C), temperature source Skin, resp. rate18, height 1.702 m (5' 7), weight 71.8 kg (158 lb 6.4 oz), SpO2 96 %. ONCOLOGY documented in this encounter Plan of Treatment Upcoming Encounters Date Type Department Care Team (Late st Contact Info) Description 04/07/2024 10:00 AM RN ONCOLOGY Office Visit [facility] [id number] [place] [address] [place] [address] Evelin Blanco, [employer] [id number] [address] 06/06/2024 2:00 PM CDT Office Visit [facility] [id number] [place] [address] [address] [place] [address] Chris Aden [place] [id number] [place] [phone] Scheduled Orders Name Type Priority Associated Diagnoses Orde r Schedule HEMOGLOBIN A1C - POINT OF CARE (AMB) Point of Care Testing Routine Type 2 diabetes mellitus with diabetic neuropathy, without long-term current use of insulin (HCC) Type 2 diabetes mellitus with stage 3 chronic kidney disease, without long-term current use of insulin, unspecified whether stage 3a or 3b CKD (HCC) Ordered: 01/26/2022 LIPID PROFILE W TCHOL/HDL Lab Routine Screening for hyperlipidemia Ordered: 01/26/2022 COMPREHENSIVE METABOLIC PANEL Lab Routine Routine general medical examination at a health care facility Ordered: 01/26/2022 CBC W/O DIFFERENTIAL Lab Routine Routine general medical examination at a health care facility Ordered: 01/26/2022 URINALYSIS REFLEX TO MICROSCOPIC NO CULTURE Lab Routine Routine general medical examination at a health care facility Ordered: 01/26/2022 HEMOGLOBIN A1C W EAG Lab Routine 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, without long-term current use of insulin, unspecified retinopathy severity (HCC) Stage 3b chronic kidney disease (HCC) Ordered: 01/26/2022 MICROALB/CREAT RATIO URINE RANDOM PANEL Lab Routine 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 Author Blood Pressure < 140/90 Blood Pressure 96/68(2023 2:34 PM RN ONCOLOGY) Rere Vargas Note: Caring for Your High [...] Where can I go for more information? [place] [employer] National Center: http://www.americanheart.org 1. In the top header, click ? Conditions? . 2. In the top header, click ? high blood pressure.? 3. For a printable blood pressure tracker, scroll toward the bottom of the page to Related Tools, and click ? HBP Trackers.? 9-665-FBC-USA- or ( ) National Heart, Lung and Blood [place]: http://www.nhlbi.nih.gov/health/infoctr/index.htm Blood Pressure < 140/90 Blood Pressure 96/68(2023 2:34 PM RN ONCOLOGY) Rere Vargas Note: Caring for Your High [...] Where can I go for more information? [place] [employer] National Center: http://www.americanheart.org 1. In the top header, click ? Conditions? . 2. In the top header, click ? high blood pressure.? 3. For a printable blood pressure tracker, scroll toward the bottom of the page to Related Tools, and click ? HBP Trackers.? 0-752-VXQ-USA- or ( ) National Heart, Lung and Blood [place]: http://www.nhlbi.nih.gov/health/infoctr/index.htm Blood Pressure < 140/90 Blood Pressure 96/68(2023 2:34 PM RN ONCOLOGY) Cassie Parks Note: Caring for Your High [...] Where can I go for more information? [place] [employer] National Center: http://www.americanheart.org 1. In the top header, click ? Conditions? . 2. In the top header, click ? high blood pressure.? 3. For a printable blood pressure tracker, scroll toward the bottom of the page to Related Tools, and click ? HBP Trackers.? 6-765-ODR-USA-1 or ( ) National Heart, Lung and Blood [place]: http://www.nhlbi.nih.gov/health/infoctr/index.htm Exercise 5X per week (30 min per time) Exercise Rere Vargas Note: The [place] [employer] recommends all adults [...] how to manage your diabetes: ? ? [place] [employer] Association: www.diabetes.org 3-923-VJHYULGT ( ) ? ? [place] Diabetes Association-Support group line: www.professional.diabetes.org ? ? 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, without long-term current use of insulin, unspecified retinopathy severity (HCC) Alzheimer's dementia without behavioral disturbance (HCC) Alzheimer's disease Stage 3b chronic kidney disease (HCC) Seasonal allergic rhinitis due to pollen Hypothyroidism, adult Other specified acquired hypothyroidism Routine general medical examination at a health care facility Screening for hyperlipidemia Screening for lipoid disorders Encounter for vitamin deficiency screening Screening for other and unspecified endocrine, nutritional, metabolic, and immunity disorders Need for prophylactic vaccination and inoculation against influenza documented in this encounter Care Teams Supervisor/Port Director Relationship Specialty [place] [id number] [place] [id number] PCP - General Internal Medicine 01/26/22 [place] [address] [facility] [address] [place] [address] Ophthalmology 04/06/16 [place] [address] [place] [address] Podiatry 01/24/21 documented as of this encounter
--- OUTSIDE RECORDS SUMMARY | 2024-04-03 00:59 | XMS_ITS | Encounter Summary ---
Author Organization [facility] Address [address] [facility] [place] [address] Care Team Providers Care Label Coder Name Role Phone Ricco Andrew MD Unavailable [phone] Fawn Ramon DPM Unavailable [phone] Chris Aden MD Primary Care Provider [phone] Chris Aden MD Unavailable Reason for Visit * Reason Onset Date Comments Forms 04/17/2022 orders Encounter Details Date Type Department Care Team (Late st Contact Info) Description 04/17/2022 Telephone [facility] - Family Medicine [id number] [place] [address] Chris Aden MD [id number] [place] [address] Forms (orders) Social History Tobacco Use Types Packs/Day Years [...] st Contact Info) Description 04/07/2024 10:00 AM REAL ESTATE ASSISTANT Office Visit [facility] [address] [facility] [address] [place] [address] Chayodevin EvelinNIKITA [address] [facility] [address] [place] [address] 06/06/2024 2:00 PM CDT Office Visit [facility] [address] [facility] [address] [place] [address] [place] [address] [facility] [address] [place] [address] documented as of this encounter Goals Goal Patient Goal Type Associated Problems Recent Progress Patient-Stated? Author Blood Pressure < 140/90 Blood Pressure 96/68(2023 2:34 PM REAL ESTATE ASSISTANT) Rere Vargas Note: Caring for Your High [...] Where can I go for more information? Swiss Heart Association National Center: http://www.americanheart.org 1. In the top header, click ? Conditions? . 2. In the top header, click ? high blood pressure.? 3. For a printable blood pressure tracker, scroll toward the bottom of the page to Related Tools, and click ? HBP Trackers.? 9-915-INE-USA-1 or ( ) National Heart, Lung and Blood [place]: http://www.nhlbi.nih.gov/health/infoctr/index.htm Blood Pressure < 140/90 Blood Pressure 96/68(2023 2:34 PM REAL ESTATE ASSISTANT) Rere Vargas Note: Caring for Your High [...] Where can I go for more information? Swiss Heart Association National Center: http://www.americanheart.org 1. In the top header, click ? Conditions? . 2. In the top header, click ? high blood pressure.? 3. For a printable blood pressure tracker, scroll toward the bottom of the page to Related Tools, and click ? HBP Trackers.? 8-882-SNB-USA-1 or ( ) National Heart, Lung and Blood [place]: http://www.nhlbi.nih.gov/health/infoctr/index.htm Blood Pressure < 140/90 Blood Pressure 96/68(2023 2:34 PM REAL ESTATE ASSISTANT) Cassie Parks Note: Caring for Your High [...] Where can I go for more information? Swiss Heart Association National Center: http://www.americanheart.org 1. In the top header, click ? Conditions? . 2. In the top header, click ? high blood pressure.? 3. For a printable blood pressure tracker, scroll toward the bottom of the page to Related Tools, and click ? HBP Trackers.? 3-459-WRW-USA-1 or ( ) National Heart, Lung and Blood [place]: http://www.nhlbi.nih.gov/health/infoctr/index.htm Exercise 5X per week (30 min per time) Exercise Rere Vargas Note: The Swiss College of Sports Medicine recommends all adults [...] how to manage your diabetes: ? ? Swiss Diabetes Association: www.diabetes.org 2-487-MESQULCJ ( ) ? ? Swiss Diabetes Association-Support group line: www.professional.diabetes.org ? ? Swiss Heart Association: www.heart.org or 6-185-ZTU-USA-1 ( ) CellVir MyPlate: www.Ubisensemyplate.gov Have labs drawn Lifestyle No Rere Kaufman [...] on filedocumented in this encounter Care Teams Label Coder Relationship Specialty [place] [address] [place] [address] PCP - General Internal Medicine 01/26/22 [place] [address] [place] [address] PCP - [facility] 02/19/22 [place] [address] [facility] [address] [place] [address] Ophthalmology 04/06/16 Fawn Ramon DPM [address] [place] [address] Podiatry 01/24/21 documented as of this encounter
--- OUTSIDE RECORDS SUMMARY | 2024-04-03 00:59 | XMS_ITS | Encounter Summary ---
Author Organization [facility] Address [address] [facility] [place] [address] Care Team Providers Care Bail Agent Name Role Phone Ricco Andrew MD Unavailable [phone] Fawn Ramon DPM Unavailable [phone] Chris Aden MD Primary Care Provider [phone] Chris Aden MD Unavailable Reason for Visit * Reason Onset Date Comments Referral 05/20/2022 Encounter Details Date Type Department Care Team (Late st Contact Info) Description 05/20/2022 Telephone [facility] - Family Medicine [id number] [place] [address] Chris Aden MD [address] [place] [address] Referral Social History Tobacco Use Types Packs/Day Years [...] encounter Miscellaneous Notes * Telephone Encounter - Juany Sommers MA - 05/25/2022 2:[address] Aden see telephone encounter from 05/18/22 from Kasia T ANALYST * Telephone Encounter - Mainor Bone - 05/20/2022 8:53 AM CST Who is calling? Elke from Dr Camp Office What is the reason for call? Several attempt have been made to submit a referral to Dr Camp office and they have hot received the required information from Dr Aden office. It was last requested on 05/18/22 and the patient is due to come in today at 2:30. He is 86 years old and needs to get in. The call was referred back to the clinical staff for assistance but the call was bumped back to the [facility]. Please contact this office with the appropriate information so the patient can be seeby Dr Camp today. Expected Response from the Clinic? Can call Elke at the office @ [phone] T ANALYST documented in this encounter Plan of Treatment Upcoming Encounters Date Type Department Care Team (Late st Contact Info) Description 04/07/2024 10:00 AM AUDIT ANALYST Office Visit [facility] [id number] [place] [address] [place] [address] Evelin Blanco, BUSSER-HOOP MAKER MACHINE [address] [facility] [address] [place] [address] 06/06/2024 2:00 PM CDT Office Visit [facility] [id number] [place] [address] [place] [address] [place] [id number] [place] [address] [address] [place] [address] documented as of this encounter Goals Goal Patient Goal Type Associated Problems Recent Progress Patient-Stated? Author Blood Pressure < 140/90 Blood Pressure 96/68(2023 2:34 PM AUDIT ANALYST) Rere Vargas Note: Caring for Your [...] Related Tools, and click ? HBP Trackers.? 5-055-GAO-USA-1 or ( ) National Heart, Lung and Blood [place]: http://www.nhlbi.nih.gov/health/infoctr/index.htm Blood Pressure < 140/90 Blood Pressure 96/68(2023 2:34 PM AUDIT ANALYST) Rere Vargas Note: Caring for Your [...] Related Tools, and click ? HBP Trackers.? 8-561-ZZT-USA-1 or ( ) National Heart, Lung and Blood [place]: http://www.nhlbi.nih.gov/health/infoctr/index.htm Blood Pressure < 140/90 Blood Pressure 96/68(2023 2:34 PM AUDIT ANALYST) Cassie Parks Note: Caring for Your [...] Related Tools, and click ? HBP Trackers.? 0-504-RPW-USA-1 or ( ) National Heart, Lung and Blood [place]: http://www.nhlbi.nih.gov/health/infoctr/index.htm Exercise 5X per week (30 min per time) Exercise Rere Vargas Note: The [place] College of Sports [...] ? ? [place] Diabetes Association: www.diabetes.org 8-818-MLACDUCE ( ) ? ? [place] Diabetes Association-Support group line: www.professional.diabetes.org ? ? [place] Heart Association: www.heart.org or 9-169-DQZ-USA-1 ( ) Labmeeting MyPlate: www.Roposomyplate.gov Have labs drawn Lifestyle Rere Vargas Note: [...] on filedocumented in this encounter Care Teams Bail Agent Relationship Specialty [place] [address] [place] [address] PCP - General Internal Medicine 01/26/22 [place] [address] [place] [address] PCP - [facility] 02/19/22 [place] [address] [facility] [address] [place] [address] Ophthalmology 04/06/16 Fawn Ramon DPM [address] [address] [place] [address] Podiatry 01/24/21 documented as of this encounter
--- OUTSIDE RECORDS SUMMARY | 2024-04-03 00:59 | XMS_ITS | Encounter Summary ---
Author Organization [facility] Address [address] [facility] [place] [address] Care Team Providers Care Leather Coater Name Role Phone Ricco Andrew MD Unavailable [phone] Fawn Ramon DPKae Unavailable [phone] Reason for Visit * Reason Onset Date Comments Confirmation 01/20/2022 Encounter Details Date Type Department Care Team (Late st Contact Info) Description 01/20/2022 Telephone [facility] - Family Medicine [address] [address] [place] [address] [address] Confirmation Social History Tobacco Use Types Packs/Day Years [...] encounter Miscellaneous Notes * Telephone Encounter - Eusebio Blackburn - 01/20/2022 12:25 PM CDT Who is calling? Eusebio If other than self is caller listed on the HIPAA? no If caller is anyone other than listed above, where are they calling from? [facility] What is the reason for call? Attempted to reach patient to confirm upcoming appt with Dr. Aden. Left Message. Expected Response from the Clinic? N/A documented in this encounter Plan of Treatment Upcoming Encounters Date Type Department Care Team (Late st Contact Info) Description 04/07/2024 10:00 AM BAIT PAINTER Office Visit [facility] [address] [facility] [address] [place] [address] Evelin Blanco APRN-CNP [address] [address] 06/06/2024 2:00 PM CDT Office Visit [facility] [id number] [place] [address] [address] [place] [address] [place] [address] [facility] [address] [address] documented as of this encounter Goals Goal Patient Goal Type Associated Problems Recent Progress Patient-Stated? Author Blood Pressure < 140/90 Blood Pressure 96/68(2023 2:34 PM BAIT PAINTER) Rere Vargas Note: Caring for Your High [...] Related Tools, and click ? HBP Trackers.? 8-878-WXZ-USA-1 or ( ) National Heart, Lung and Blood [place]: http://www.nhlbi.nih.gov/health/infoctr/index.htm Blood Pressure < 140/90 Blood Pressure 96/68(2023 2:34 PM BAIT PAINTER) Rere Vargas Note: Caring for Your High [...] Related Tools, and click ? HBP Trackers.? 6-499-VDF-USA-1 or ( ) National Heart, Lung and Blood [place]: http://www.nhlbi.nih.gov/health/infoctr/index.htm Blood Pressure < 140/90 Blood Pressure 96/68(2023 2:34 PM BAIT PAINTER) Cassie Parks Note: Caring for Your High [...] Related Tools, and click ? HBP Trackers.? 6-612-IIM-USA-1 or ( ) National Heart, Lung and Blood [place]: http://www.nhlbi.nih.gov/health/infoctr/index.htm Exercise 5X per week (30 min [...] ? ? [place] Diabetes Association: www.diabetes.org 8-703-QNVDAVPI ( ) ? ? [place] Diabetes Association-Support group line: www.professional.diabetes.org ? ? [place] Heart Association: www.heart.org or 8-143-PBD-USA-1 ( ) ViralNinjas MyPlate: www.Surikatemyplate.gov Have labs drawn Lifestyle Rere Vargas Note: [...] on filedocumented in this encounter Care Teams Leather Coater Relationship Specialty [place] [address] [facility] [address] [place] [address] Ophthalmology 04/06/16 Fawn Ramon DPM [address] [place] [address] Podiatry 01/24/21 documented as of this encounter
--- OUTSIDE RECORDS SUMMARY | 2024-04-03 00:59 | XMS_ITS | Encounter Summary ---
Author Organization [facility] Address [address] [facility] [place] [place] [address] Care Team Providers Care Data Center Operator Name Role Phone Ricco Andrew MD Unavailable [phone] Fawn Ramon DPM Unavailable [phone] Chris Aden MD Primary Care Provider Chris Aden MD Unavailable Reason for Visit * Reason Onset Date Comments UTI 07/27/2022 Encounter Details Date Type Department Care Team (Late st Contact Info) Description 07/27/2022 Telephone [facility] - Family Medicine [id number] [place] [address] [place] [address] Chris Aden MD [address] [place] [address] UTI Social History Tobacco Use Types Packs/Day Years [...] Telephone Encounter - Katie Mena RN - 07/27/2022 2:51 PM CDT Patient's daughter said patient has been sleeping a lot the past 2 days and his urine is a dark yellow. Patient's temperature was 99.7 this afternoon. Patient called to report possible signs of UTI. Questions asked per office protocol: 1. Are you having burning with urination? Patient does not say, patient has dementia. Patient's blood sugar checked and was 147. 2. Do you feel like you need to urinate more often, but not as much urine is coming out? Not reallybut dark yellow urine. 3. Are you having any back pain, nausea, or fever? Pain in stomach, temperature 99.7 If back pain, describe location and rate pain on scale of 0-10. Patient has hx of dementia and is saying his side hurts a little to his daughter. If fever, what was you most recent temp? 99.7 How long have you been experiencing these symptoms? yesterday 6. Hx of UTI: Yes Please advise next step in patient plan of care. Patient not drinking much water. Patient's daughter advised to take patient to ER, due to patient tired, likely dehydrated due to not drinking fluid, patient's daughter said unlikely to stay awake to give urine sample at . Patient's daughter also concern with possible stones, Patient's daughter agrees to take patient to [facility] in [place], and will call and update office. documented in this encounter Plan of Treatment Upcoming Encounters Date Type Department Care Team (Late st Contact Info) Description 04/07/2024 10:00 AM MICROWAVE REMOTE SENSING SCIENTIST Office Visit [facility] [id number] [place] [address] [address] [place] [address] Evelin Blanco APRN-DENIS [address] [facility] [address] [place] [address] 06/06/2024 2:00 PM CDT Office Visit [facility] [id number] [place] [address] [address] [place] [address] [place] [address] [place] [address] documented as of this encounter Goals Goal Patient Goal Type Associated Problems Recent Progress Patient-Stated? Author Blood Pressure < 140/90 Blood Pressure 96/68(2023 2:34 PM MICROWAVE REMOTE SENSING SCIENTIST) Rere Vargas Note: Caring for Your High [...] Related Tools, and click ? HBP Trackers.? 9-681-GFB-USA-1 or ( ) National Heart, Lung and Blood [place]: http://www.nhlbi.nih.gov/health/infoctr/index.htm Blood Pressure < 140/90 Blood Pressure 96/68(2023 2:34 PM MICROWAVE REMOTE SENSING SCIENTIST) Rere Vargas Note: Caring for Your High [...] Related Tools, and click ? HBP Trackers.? 4-916-SOR-USA-1 or ( ) National Heart, Lung and Blood [place]: http://www.nhlbi.nih.gov/health/infoctr/index.htm Blood Pressure < 140/90 Blood Pressure 96/68(2023 2:34 PM MICROWAVE REMOTE SENSING SCIENTIST) No Cassie Marie Note: Caring for Your [...] Related Tools, and click ? HBP Trackers.? 4-886-LDD-USA-1 or ( ) National Heart, Lung and Blood [place]: http://www.nhlbi.nih.gov/health/infoctr/index.htm Exercise 5X per week (30 min per time) Exercise Rere Vargas Note: The [place] College of Sports Medicine [...] diabetes: ? ? Mac[place] Diabetes Association: www.diabetes.org 6-234-YRZXCLJY ( ) ? ? Mac[place] Diabetes Association-Support group line: www.professional.diabetes.org ? ? Mac[place] Heart Association: www.heart.org or 5-768-YXT-USA-1 ( ) Hidden Radio MyPlate: www.cdream networkmyplate.gov Have labs drawn Lifestyle No Rohan Kaufmanina Note: Caring for Your Diabetes Routine Testing [...] on filedocumented in this encounter Care Teams Data Center Operator Relationship Specialty [place] [address] [address] [place] [address] PCP - General Internal Medicine 01/26/22 [place] [address] [address] [place] [address] PCP - [facility] 02/19/22 [place] [address] [facility] [address] [place] [address] Ophthalmology 04/06/16 Fawn Ramon DPM [address] [address] [place] [address] Podiatry 01/24/21 documented as of this encounter
--- OUTSIDE RECORDS SUMMARY | 2024-04-03 00:59 | XMS_ITS | Encounter Summary ---
Author Organization [facility] Address [address] [facility] [place] [address] Care Team Providers Care Ruby On Rails Web Developer Name Role Phone Ricco Andrew MD Unavailable [phone] Fawn Ramon DPKae Unavailable [phone] Reason for Visit * Reason Comments Refill Request Encounter Details Date Type Department Care Team (Late st Contact Info) Description 11/14/2021 Refill [facility] - Family Medicine [address] [place], [place] [id number] Rosana Solo MD [address] [place] [address] Refill Request Social History Tobacco Use Types [...] encounter Miscellaneous Notes * Telephone Encounter - Eugenie Brown - 11/19/2021 9:39 AM CDT Last OV: 07/23/21 Next OV: 01/26/22 Last refill: 01/27/21 Requested Prescriptions Pending Prescriptions Disp Refills ??? memantine (Namenda) 5 MG tablet [Pharmacy Med Name: MEMANTINE HCL 5 MG TABLET] 180 tablet 3 Sig: TAKE 1 TABLET BY MOUTH TWICE A DAY documented in this encounter Plan of Treatment Upcoming Encounters Date Type Department Care Team (Late st Contact Info) Description 04/07/2024 10:00 AM TAX SENIOR ASSOCIATE Office Visit [facility] [address] [facility] [address] [place] [address] Evelin Blanco APRN-CNP [address] [id number] 06/06/2024 2:00 PM CDT Office Visit [facility] [id number] [place] [address] [address] [place], [place] [phone] [place] [address] [facility] [address] [phone] documented as of this encounter Goals Goal Patient Goal Type Associated Problems Recent Progress Patient-Stated? Author Blood Pressure < 140/90 Blood Pressure 96/68(2023 2:34 PM TAX SENIOR ASSOCIATE) Rere Vargas Note: Caring for Your High [...] Where can I go for more information? [place] Heart Association National Center: http://www.americanheart.org 1. In the top header, click ? Conditions? . 2. In the top header, click ? high blood pressure.? 3. For a printable blood pressure tracker, scroll toward the bottom of the page to Related Tools, and click ? HBP Trackers.? 9-839-EDT-USA-1 or ( ) National Heart, Lung and Blood [place]: http://www.nhlbi.nih.gov/health/infoctr/index.htm Blood Pressure < 140/90 Blood Pressure 96/68(2023 2:34 PM TAX SENIOR ASSOCIATE) Rere Vargas Note: Caring for Your High [...] Where can I go for more information? [place] Heart Association National Center: http://www.americanheart.org 1. In the top header, click ? Conditions? . 2. In the top header, click ? high blood pressure.? 3. For a printable blood pressure tracker, scroll toward the bottom of the page to Related Tools, and click ? HBP Trackers.? 7-554-WCG-USA-1 or ( ) National Heart, Lung and Blood [place]: http://www.nhlbi.nih.gov/health/infoctr/index.htm Blood Pressure < 140/90 Blood Pressure 96/68(2023 2:34 PM TAX SENIOR ASSOCIATE) Cassie Parks Note: Caring for Your High [...] Where can I go for more information? [place] Heart Association National Center: http://www.americanheart.org 1. In the top header, click ? Conditions? . 2. In the top header, click ? high blood pressure.? 3. For a printable blood pressure tracker, scroll toward the bottom of the page to Related Tools, and click ? HBP Trackers.? 0-560-SHN-USA-1 or ( ) National Heart, Lung and Blood [place]: http://www.nhlbi.nih.gov/health/infoctr/index.htm Exercise 5X per week (30 min per time) Exercise Rere Vargas Note: The [place] College of Sports Medicine recommends all adults [...] how to manage your diabetes: ? ? [place] Diabetes Association: www.diabetes.org 2-022-OCPXVAVA ( ) ? ? [place] Diabetes Association-Support group line: www.professional.diabetes.org ? ? [place] Heart Association: www.heart.org or 0-069-EXB-USA-1 ( ) [employer] MyPlate: www.[place] Printer Servicemyplate.gov Have labs drawn Lifestyle Rere Vargas Note: [...] on filedocumented in this encounter Care Teams Ruby On Rails Web Developer Relationship Specialty [place] [address] [facility] [address] [place] [address] Ophthalmology 04/06/16 Fawn Ramon DPM [address] [address] [facility] [address] [place] [address] Podiatry 01/24/21 documented as of this encounter
--- OUTSIDE RECORDS SUMMARY | 2024-04-03 00:59 | XMS_ITS | Encounter Summary ---
Author Organization [facility] Address [address] [place] [address] Care Team Providers Care Entomology Professor Name Role Phone Ricco Andrew MD Unavailable [phone] Rosana Solo MD Unavailable [phone] Fawn Ramon DPM Unavailable [phone] Encounter Details Date Type Department Care Team (Latest Contact Info) Description 07/22/2021 Travel Social History Tobacco Use Types Packs/Day [...] AM CDT documented as of this encounter Plan of Treatment Upcoming Encounters Date Type Department Care Team (Late st Contact Info) Description 04/07/2024 10:00 AM MANAGER ACCOUNT MANAGEMENT Office Visit [facility] Family Medicine [address] [place] [address] [place] [address] Samantha Blancoecca, LINEN SUPERVISOR-ROLLER PNEUMATIC [address] [address] [facility] [address] [place] [address] 06/06/2024 2:00 PM CDT Office Visit [facility] Family Medicine [address] [address] [facility] [address] [place] [address] [place] [address] [facility] [address] [place] [address] documented as of this encounter Goals Goal Patient Goal Type Associated Problems Recent Progress Patient-Stated? Author Blood Pressure < 140/90 Blood Pressure 96/68(2023 2:34 PM MANAGER ACCOUNT MANAGEMENT) Rere Vargas Note: Caring for Your High [...] Related Tools, and click ? HBP Trackers.? 6-071-KHLUSA- or ( ) National Heart, Lung and Blood [place]: http://www.nhlbi.nih.gov/health/infoctr/index.htm Blood Pressure < 140/90 Blood Pressure 96/68(2023 2:34 PM MANAGER ACCOUNT MANAGEMENT) Rere Vargas Note: Caring for Your High [...] Related Tools, and click ? HBP Trackers.? 7-621-GJW-USA- or ( ) National Heart, Lung and Blood [place]: http://www.nhlbi.nih.gov/health/infoctr/index.htm Blood Pressure < 140/90 Blood Pressure 96/68(2023 2:34 PM MANAGER ACCOUNT MANAGEMENT) Cassie Parks Note: Caring for Your High [...] Related Tools, and click ? HBP Trackers.? 6-617-ZNT-USA-1 or ( ) National Heart, Lung and Blood [place]: http://www.nhlbi.nih.gov/health/infoctr/index.htm Exercise 5X per week (30 min [...] diabetes: ? ? [place] Diabetes Association: www.diabetes.org 3-836-ZMBFFDVR ( ) ? ? [place] Diabetes Association-Support group line: www.professional.diabetes.org ? ? Australian Heart Association: www.heart.org or 2-311-USB-USA-1 ( ) [employer] MyPlate: www.[place] REOmyplate.gov Have labs drawn Lifestyle Rere Vargas Note: [...] on filedocumented in this encounter Care Teams Entomology Professor Relationship Specialty Start Date End Date Rosana Solo MD [address] [facility] [address] [place] [address] PCP - Attributed-[facility] 02/19/19 [place] [address] [facility] [address] [place] [address] Ophthalmology 04/06/16 [place] [address] [place] [address] Podiatry 01/24/21 documented as of this encounter
--- OUTSIDE RECORDS SUMMARY | 2024-04-03 00:59 | XMS_ITS | Encounter Summary ---
Author Organization [facility] Address [address] [place] [address] Care Team Providers Care Journeyman Pipe Welder Name Role Phone Ricco Andrew MD Unavailable [phone] Rosana Solo MD Unavailable [phone] Fawn Ramon DPM Unavailable [phone] Reason for Visit * Reason Comments Diabetes Encounter Details Date Type Department Care Team (Late st Contact Info) Description 07/23/2021 11:30 AM CDT Office Visit [facility] - Family Medicine [address] [facility] [address] [place] [address] Evelin Blanco APRN-DENIS [address] [facility] [address] [place] [address] Type 2 diabetes mellitus with stage 3a chronic kidney disease, without long-term current use of insulin (HCC) (Primary Dx) Social History Tobacco Use Types [...] AM CDT documented as of this encounter Last Filed Vital Signs Vital Sign Reading Time Taken Comments Blood Pressure 110/70 07/23/2021 11:50 AM CDT Pulse 85 07/23/2021 11:50 AM CDT Temperature 36.4 ??C (97.5 ??F) 07/23/2021 11:50 AM C DT Respiratory Rate 12 07/23/2021 11:50 AM CDT Oxygen Saturation 99% 07/23/2021 11:50 AM CDT Inhaled Oxygen Concentration - - Weight 72.6 kg (160 lb) 07/23/2021 11:50 AM CDT Height 170.2 cm (5' 7) 07/23/2021 11:50 AM CDT Body Mass Index 25.06 07/23/2021 11:50 AM CDT documented in this encounter Patient Instructions * Patient Instructions* Evelin Blanco APRN-CNP - 07/23/2021 12:08 PM CDT The blood sugar was up due to the pasta dish. Would not change the medication yet. Check fasting and then again before dinner. The pasta dishes can make the blood sugar go up. documented in this encounter Progress Notes * Evelin Blacno APRN-CNP - 07/23/2021 11:57 AM CDT SUBJECTIVE: Mk Sanches is a 86 year old male here for: Chief Complaint Patient presents with ??? Diabetes Past Medical History: Diagnosis Date ??? Benign hypertension with chronic kidney disease 02/05/2016 BP controlled off rx. resolved ??? Chronic renal failure ??? Dementia ??? Dermatitis ??? DM (diabetes mellitus) ??? HTN (hypertension) ??? Hx of rheumatic fever ??? Hypothyroid ??? Seasonal allergies ??? Trigger finger HPI: Family with pt, getting some of the following numbers. Took a picture of it. On 07-21-2021 bloodsugar at dinner was 149. On 07/2021 after breakfast she had am at 174 and had oatmeal with cinnamon;mid am it went up to 204, had pasta dish at lunch and it was 261 at 320. Before bed was 174 as dinner was chicken heath, broccoli and green beans. This am it was 139 fasting. Review of systems negative except as noted in the HPI Social History Tobacco Use ??? Smoking status: Never Smoker ??? Smokeless tobacco: Former User Types: Chew Quit date: 01/02/2021 Substance Use Topics ??? Alcohol use: No Family History Family history unknown: Yes Past Surgical History: Procedure Laterality Date ??? NEGATIVE SURGICAL HISTORY Current Outpatient Medications on File Prior to Visit Medication Sig Dispense Refill ??? Acetaminophen (TYLENOL ARTHRITIS PAIN PO) Take 500 mg by mouth Two times a week ??? albuterol HFA (PROVENTIL; VENTOLIN; PROAIR) 108 (90 Base) MCG/ACT inhaler as needed ??? DIONICIO ASPIRIN REGIMEN PO Take 81 mg by mouth once daily ??? cetirizine (ZYRTEC) 10 MG tablet Take 1 (one) tablet by mouth once daily ??? glipiZIDE (GLUCOTROL) 5 MG tablet Take 1 (one) tablet by mouth 2 times daily, before breakfast and supper 180 tablet 1 ??? ketoconazole (NIZORAL) 2 % shampoo Apply to affected area Three times a week Reasons: Dandruff 120 mL 1 ??? levothyroxine (SYNTHROID) 75 MCG tablet TAKE 1 TABLET BY MOUTH EVERY DAY IN THE MORNING 90 tablet 3 ??? loratadine (CLARITIN) 10 MG tablet TAKE 1 TABLET BY MOUTH EVERY DAY 90 tablet 3 ??? memantine (NAMENDA) 5 MG tablet TAKE 1 TABLETS BY MOUTH 2 TIMES DAILY 180 tablet 3 ??? ONETOUCH ULTRA TEST STRIPS test strip Use 1 strip once daily (One touch mini test strips) (Patient taking differently: Use 1 strip 2 times daily (One touch mini test strips)) 100 strip 2 No current facility-administered medications on file prior to visit. Allergies Allergen Reactions ??? Ibuprofen Other HE HAS CKD AND SHOULD NOT TAKE NSAID'S ??? Jackie Ds [Sulfamethoxazole W-Trimethoprim] Rash OBJECTIVE: Vitals: 07/23/21 1150 BP: 110/70 Pulse: 85 Resp: 12 Temp: 97.5 ??F (36.4 ??C) SpO2: 99% Weight: 72.6 kg (160 lb) Height: 1.702 m (5' 7) Body mass index is 25.06 kg/m??. General appearance - alert, well appearing, and in no distress Psych - alert and oriented to person, place, pleasantly confused. Neck - trachea midline, no thyromegaly, supple, [...] Xll intact. ASSESSMENT Encounter Diagnosis Name Primary? Type 2 diabetes mellitus with stage 3a chronic kidney disease, without long- term current use ofinsulin Yes PLAN: No orders of the defined types were placed in this encounter. The blood sugar was up due to the pasta dish. Would not change the medication yet. Check fasting and then again before dinner. The pasta dishes can make the blood sugar go up. Further recommendations pending the above results and patient's clinical course. Follow-up visit prn. Making new pt appt. The patient indicates understanding of these issues and agrees with the plan. documented in this encounter Plan of Treatment Upcoming Encounters Date Type Department Care Team (Late st Contact Info) Description 04/07/2024 10:00 AM RADIOLOGY RECEPTIONIST Office Visit [facility] Family Medicine [address] [place] [address] Lisbeta Evelin, ELECTROCARDIOGRAPH OPERATOR-CAREER DEVELOPMENT MANAGER [address] [facility] [address] [place] [address] 06/06/2024 2:00 PM CDT Office Visit [facility] Family Medicine [address] [facility] [address] [place] [address] [place] [address] [facility] [address] [place] [address] documented as of this encounter Goals Goal Patient Goal Type Associated Problems Recent Progress Patient-Stated? Author Blood Pressure < 140/90 Blood Pressure 96/68(2023 2:34 PM RADIOLOGY RECEPTIONIST) Rere Vargas Note: Caring for Your High [...] Related Tools, and click ? HBP Trackers.? 1-580-XPA-USA- or ( ) National Heart, Lung and Blood [place]: http://www.nhlbi.nih.gov/health/infoctr/index.htm Blood Pressure < 140/90 Blood Pressure 96/68(2023 2:34 PM RADIOLOGY RECEPTIONIST) No Rere Kaufman Note: Caring for Your [...] Related Tools, and click ? HBP Trackers.? 9-647-PTQ-USA- or ( ) National Heart, Lung and Blood [place]: http://www.nhlbi.nih.gov/health/infoctr/index.htm Blood Pressure < 140/90 Blood Pressure 96/68(2023 2:34 PM RADIOLOGY RECEPTIONIST) Cassie Parks Note: Caring for Your High [...] Related Tools, and click ? HBP Trackers.? 7-847-MCQ-USA-1 or ( ) National Heart, Lung and Blood [place]: http://www.nhlbi.nih.gov/health/infoctr/index.htm Exercise 5X per week (30 min [...] diabetes: ? ? [place] Diabetes Association: www.diabetes.org 1-958-RJAVTJYE ( ) ? ? [place] Diabetes Association-Support group line: www.professional.diabetes.org ? ? [place] Heart Association: www.heart.org or 3-992-MZZ-USA-1 ( ) [employer] MyPlate: www.Vivonetmyplate.gov Have labs drawn Lifestyle Rere Vargas Note: [...] as of this encounter Visit Diagnoses Diagnosis Type 2 diabetes mellitus with stage 3a chronic kidney disease, without long-term current use of insulin (HCC)- Primary documented in this encounter Care Teams Journeyman Pipe Welder Relationship Specialty Start Date End Date Rosana Solo MD [address] [facility] [address] [place] [address] PCP - Attributed-[facility] 02/19/19 [place] [address] [facility] [address] [place] [address] Ophthalmology 04/06/16 [place] [address] [facility] [address] [place] [address] Podiatry 01/24/21 documented as of this encounter
--- OUTSIDE RECORDS SUMMARY | 2024-04-03 00:59 | XMS_ITS | Encounter Summary ---
Author Organization [facility] Address [address] [place] [address] Care Team Providers Care Foundry Hand Name Role Phone Ricco Andrew MD Unavailable [phone] Fawn Ramon DPM Unavailable [phone] Chris Aden MD Primary Care Provider [phone] Chris Aden MD Unavailable Reason for Visit * Reason Onset Date Comments Constipation 04/16/2022 Encounter Details Date Type Department Care Team (Late st Contact Info) Description 04/16/2022 Telephone [facility] - Family Medicine [id number] [place] [address] Chris Aden MD [address] [place] [address] Constipation Social History Tobacco Use Types Packs/Day Years [...] Telephone Encounter - Ana Dallas RN - 04/17/2022 8:03 AM CST Lillie from notified of order for Colace per PCP. She will notify family. No further questionsat this time. HANDISING ASSISTANT * Telephone Encounter - Ana Dallas RN - 04/16/2022 3:07 PM CST Lillie from called stating daughter of patient has given Miralax starting last and has been given everyday since. Patient has only produced a moderate sized hard BM on Thursday 04/13. Abdomen is soft, patient is comfortable, and has good BS at this time. Would you recommend a stool softener? Please advise. HANDISING ASSISTANT documented in this encounter Plan of Treatment Upcoming Encounters Date Type Department Care Team (Late st Contact Info) Description 04/07/2024 10:00 AM MERCHANDISING ASSISTANT Office Visit [facility] [id number] [place] [address] Evelin Blanco APRN-IT PROGRAM MANAGER [address] [address] 06/06/2024 2:00 PM CDT Office Visit [facility] [id number] [place] [address] [place] [address] [facility] [address] [place] [phone] documented as of this encounter Goals Goal Patient Goal Type Associated Problems Recent Progress Patient-Stated? Author Blood Pressure < 140/90 Blood Pressure 96/68(2023 2:34 PM MERCHANDISING ASSISTANT) Rere Vargas Note: Caring for Your [...] Where can I go for more information? Stateless Heart Association National Center: http://www.americanheart.org 1. In the top header, click ? Conditions? . 2. In the top header, click ? high blood pressure.? 3. For a printable blood pressure tracker, scroll toward the bottom of the page to Related Tools, and click ? HBP Trackers.? 8-642-TZG-USA-1 or ( ) National Heart, Lung and Blood [place]: http://www.nhlbi.nih.gov/health/infoctr/index.htm Blood Pressure < 140/90 Blood Pressure 96/68(2023 2:34 PM MERCHANDISING ASSISTANT) Rere Vargas Note: Caring for Your [...] Where can I go for more information? Stateless Heart Association National Center: http://www.americanheart.org 1. In the top header, click ? Conditions? . 2. In the top header, click ? high blood pressure.? 3. For a printable blood pressure tracker, scroll toward the bottom of the page to Related Tools, and click ? HBP Trackers.? 1-572-FYI-USA-1 or ( ) National Heart, Lung and Blood [place]: http://www.nhlbi.nih.gov/health/infoctr/index.htm Blood Pressure < 140/90 Blood Pressure 96/68(2023 2:34 PM MERCHANDISING ASSISTANT) Cassie Parks Note: Caring for Your [...] Where can I go for more information? Stateless Heart Association National Center: http://www.americanheart.org 1. In the top header, click ? Conditions? . 2. In the top header, click ? high blood pressure.? 3. For a printable blood pressure tracker, scroll toward the bottom of the page to Related Tools, and click ? HBP Trackers.? 8-900-TWK-USA-1 or ( ) National Heart, Lung and Blood [place]: http://www.nhlbi.nih.gov/health/infoctr/index.htm Exercise 5X per week (30 min per time) Exercise Rere Vargas Note: The Stateless College of Sports Medicine recommends all adults [...] how to manage your diabetes: ? ? Stateless Diabetes Association: www.diabetes.org 9-481-DMNKAEIL ( ) ? ? Stateless Diabetes Association-Support group line: www.professional.diabetes.org ? ? Stateless Heart Association: www.heart.org or 9-577-LVK-USA-1 ( ) [employer] MyPlate: www.Empire Roboticsmyplate.gov Have labs drawn Lifestyle No Rere Kaufman [...] on filedocumented in this encounter Care Teams Foundry Hand Relationship Specialty [place] [address] [place] [phone] PCP - General Internal Medicine 01/26/22 [place] [address] [place] [phone] PCP - [facility] 02/19/22 [place] [address] [facility] [address] [place] [address] Ophthalmology 04/06/16 Fa[place] Ram[place] [address] [place] [address] Podiatry 01/24/21 documented as of this encounter
--- OUTSIDE RECORDS SUMMARY | 2024-04-03 00:59 | XMS_ITS | Encounter Summary ---
Author Organization [facility] Address [address] [place] [address] Care Team Providers Care Electronics Inspector Name Role Phone Ricco Andrew MD Unavailable [phone] Fawn Ramon DPM Unavailable [phone] Chris Aden MD Primary Care Provider [phone] Chris Aden MD Unavailable Encounter Details Date Type Department Care Team (Late st Contact Info) Description 04/15/2022 Home Care Visit [facility] [address] [place] [place] [address] Elizabeth Umana, RN SN NON ADMIT Social History Tobacco Use Types Packs/Day Years [...] as of this encounter Miscellaneous Notes * Home Health - Elizabeth Umana, RN - 04/15/2022 1:24 PM CST SCHEDULE SOC WITH PATIENT'S DTRFILOMENA, FOR AROUND 130 PM TODAY. UPON ARRIVAL TO HOME, WAS MET BY PT FROM [facility] WHO IS ALSO OUT TO SEE THE PATIENT TODAY. [facility] PT REPORTS HE WAS ADMITTED OT THEIR SERVICES ON 04/12/22. PATIENT WILL NOT BE ADMITTED TO [facility] THIS WOULD BE A DUPLICATION OF SERVICES AND UNPAID BY INSURANCE. NITRATE PROCESSOR documented in this encounter Plan of Treatment Upcoming Encounters Date Type Department Care Team (Late st Contact Info) Description 04/07/2024 10:00 AM LEAD NITRATE PROCESSOR Office Visit [facility] [id number] [place] [address] [address] [place] [address] Evelin Blanco APRN-DENIS [address] [address] 06/06/2024 2:00 PM CDT Office Visit [facility] [id number] [place] [address] [place] [address] [phone] documented as of this encounter Goals Goal Patient Goal Type Associated Problems Recent Progress Patient-Stated? Author Blood Pressure < 140/90 Blood Pressure 96/68(2023 2:34 PM LEAD NITRATE PROCESSOR) Rere Vargas Note: Caring for Your High [...] Related Tools, and click ? HBP Trackers.? 0-791-SMW-USA-1 or ( ) National Heart, Lung and Blood [place]: http://www.nhlbi.nih.gov/health/infoctr/index.htm Blood Pressure < 140/90 Blood Pressure 96/68(2023 2:34 PM LEAD NITRATE PROCESSOR) Rere Vargas Note: Caring for Your High [...] Related Tools, and click ? HBP Trackers.? 0-904-VZH-USA-1 or ( ) National Heart, Lung and Blood [place]: http://www.nhlbi.nih.gov/health/infoctr/index.htm Blood Pressure < 140/90 Blood Pressure 96/68(2023 2:34 PM LEAD NITRATE PROCESSOR) Filomena Parks Note: Caring for Your High Blood [...] Related Tools, and click ? HBP Trackers.? 0-835-LKZ-USA-1 or ( ) National Heart, Lung and Blood [place]: http://www.nhlbi.nih.gov/health/infoctr/index.htm Exercise 5X per week (30 min [...] diabetes: ? ? [place] Diabetes Association: www.diabetes.org 5-693-AOBHEGWT ( ) ? ? [place] Diabetes Association-Support group line: www.professional.diabetes.org ? ? [place] Heart Association: www.heart.org or 8-550-JHC-USA-1 ( ) C[employer] MyPlate: www.Klosetshopmyplate.gov Have labs drawn Lifestyle No Rere Kaufman [...] on filedocumented in this encounter Care Teams Electronics Inspector Relationship Specialty [place] [address] [place] [address] PCP - General Internal Medicine 01/26/22 [place] [address] [place] [address] PCP - [facility] 02/19/22 [place] [address] [facility] [address] [place] [address] Ophthalmology 04/06/16 [place] [address] [place] [address] Podiatry 01/24/21 documented as of this encounter
--- OUTSIDE RECORDS SUMMARY | 2024-04-03 00:59 | XMS_ITS | Encounter Summary ---
Author Organization [facility] Address [address] [facility] [address] Care Team Providers Care Print Line Inspector Name Role Phone Ricco Andrew MD Unavailable [phone] Fawn Ramon DPKae Unavailable [phone] Reason for Visit * Reason Comments Refill Request Encounter Details Date Type Department Care Team (Late st Contact Info) Description 10/18/2021 Refill [facility] - Family Medicine [address] [place], [place] [id number] Rosana Solo MD [address] [place] [phone] Refill Request Social History Tobacco Use [...] Telephone Encounter - Radha Michael RN - 10/21/2021 2:32 PM CDT Mk Sanches or the patients pharmacy called/LVM/sent a fax requesting a refill on the medication(s)listed below: Requested Prescriptions Pending Prescriptions Disp Refills ??? levothyroxine (SYNTHROID) 75 MCG tablet [Pharmacy Med Name: LEVOTHYROXINE 75 MCG TABLET] 90 tablet 3 Sig: TAKE 1 TABLET BY MOUTH EVERY DAY IN THE MORNING Allergies Allergen Reactions ??? Ibuprofen Other HE HAS CKD AND SHOULD NOT TAKE NSAID'S ??? Septra Ds [Sulfamethoxazole W-Trimethoprim] Rash Last refill: 01/03/21 Last appointment : 07/23/21 Next Office Visit: 01/26/22 documented in this encounter Plan of Treatment Upcoming Encounters Date Type Department Care Team (Late st Contact Info) Description 04/07/2024 10:00 AM YARN MERCERIZER OPERATOR HELPER Office Visit [facility] [id number] [place] [address] Evelin Blanco, REGISTERED NURSE BONE MARROW TRANSPLANT-ORTHODONTIC ASSISTANT [id number] [place] [address] 06/06/2024 2:00 PM CDT Office Visit [address] [address] [place] [id number] [place] [phone] documented as of this encounter Goals Goal Patient Goal Type Associated Problems Recent Progress Patient-Stated? Author Blood Pressure < 140/90 Blood Pressure 96/68(2023 2:34 PM YARN MERCERIZER OPERATOR HELPER) Rere Vargas Note: Caring for Your High [...] Where can I go for more information? [place] Heart Association National Center: http://www.americanheart.org 1. In the top header, click ? Conditions? . 2. In the top header, click ? high blood pressure.? 3. For a printable blood pressure tracker, scroll toward the bottom of the page to Related Tools, and click ? HBP Trackers.? 0-302-SLQ-USA-1 or ( ) National Heart, Lung and Blood [place]: http://www.nhlbi.nih.gov/health/infoctr/index.htm Blood Pressure < 140/90 Blood Pressure 96/68(2023 2:34 PM YARN MERCERIZER OPERATOR HELPER) Rere Vargas Note: Caring for Your High [...] Where can I go for more information? [place] Heart Association National Center: http://www.americanheart.org 1. In the top header, click ? Conditions? . 2. In the top header, click ? high blood pressure.? 3. For a printable blood pressure tracker, scroll toward the bottom of the page to Related Tools, and click ? HBP Trackers.? 9-854-PAQ-USA-1 or ( ) National Heart, Lung and Blood [place]: http://www.nhlbi.nih.gov/health/infoctr/index.htm Blood Pressure < 140/90 Blood Pressure 96/68(2023 2:34 PM YARN MERCERIZER OPERATOR HELPER) Cassie Parks Note: Caring for Your High [...] Where can I go for more information? [place] Heart Association National Center: http://www.americanheart.org 1. In the top header, click ? Conditions? . 2. In the top header, click ? high blood pressure.? 3. For a printable blood pressure tracker, scroll toward the bottom of the page to Related Tools, and click ? HBP Trackers.? 3-872-TAV-USA-1 or ( ) National Heart, Lung and Blood [place]: http://www.nhlbi.nih.gov/health/infoctr/index.htm Exercise 5X per week (30 min per time) Exercise Rere Vargas Note: The [place] College of Sports Medicine recommends all adults [...] how to manage your diabetes: ? ? [place] Diabetes Association: www.diabetes.org 8-251-MHUTQMEC ( ) ? ? [place] Diabetes Association-Support group line: www.professional.diabetes.org ? ? [place] Heart Association: www.heart.org or 1-826-EBE-USA-1 ( ) [place] MyPlate: www.choosemyplate.gov Have labs drawn Lifestyle Rere Vargas Note: [...] on filedocumented in this encounter Care Teams Print Line Inspector Relationship Specialty [place] [address] [place] [id number] Ophthalmology 04/06/16 Fawn Ramon DPM [address] [place] [address] Podiatry 01/24/21 documented as of this encounter
--- OUTSIDE RECORDS SUMMARY | 2024-04-03 00:59 | XMS_ITS | Encounter Summary ---
Author Organization [facility] Address [address] [facility] [place] [address] Care Team Providers Care Cooling Tower Operator Name Role Phone Ricco Andrew MD Unavailable [phone] Fawn Ramon DPM Unavailable [phone] Chris Aden MD Primary Care Provider [phone] Chris Aden MD Unavailable Reason for Visit * Reason Onset Date Comments Referral 05/18/2022 Encounter Details Date Type Department Care Team (Late st Contact Info) Description 05/18/2022 Telephone [facility] - Family Medicine [id number] [place] [address] Chris Aden MD [id number] [place] [phone] Referral Social History Tobacco Use Types [...] encounter Miscellaneous Notes * Telephone Encounter - Kasia Dumont - 05/19/2022 8:42 AM CST Images from the original note were not included. LE AND SIDE WIRE STITCHER * Telephone Encounter - Mainor Bone - 05/18/2022 8:41 AM CST Mk Sanches is in need of an insurance referral for : Diagnosis Code or reason being Seen: R56.00 Date of Scheduled Appt- 05/20/22 Specialist Name- DR Esteban Camp Specialist Phone Number- [phone] Specialist Fax Number- [phone] Specialist Address- [address], [address] Specialist NPI or Tax ID- [id number] NPI Insurance & Member ID- [employer] Medicare PCP- Chris Aden MD Person calling for the referral- Elke LE AND SIDE WIRE STITCHER documented in this encounter Plan of Treatment Upcoming Encounters Date Type Department Care Team (Late st Contact Info) Description 04/07/2024 10:00 AM SADDLE AND SIDE WIRE STITCHER Office Visit [address] [place] [address] Evelin Blanco, SALESPERSON FURS-MAIL HANDLERS SUPERVISOR [address] [facility] [address] [place] [address] 06/06/2024 2:00 PM CDT Office Visit [facility] [id number] [place] [address] [address] [place] [address] Chris Aden MD [address] [place] [phone] documented as of this encounter Goals Goal Patient Goal Type Associated Problems Recent Progress Patient-Stated? Author Blood Pressure < 140/90 Blood Pressure 96/68(2023 2:34 PM SADDLE AND SIDE WIRE STITCHER) Rere Vargas Note: Caring for Your High [...] Where can I go for more information? [place] Heart Association National Center: http://www.americanheart.org 1. In the top header, click ? Conditions? . 2. In the top header, click ? high blood pressure.? 3. For a printable blood pressure tracker, scroll toward the bottom of the page to Related Tools, and click ? HBP Trackers.? 8-800-ZGQ-USA-1 or ( ) National Heart, Lung and Blood [place]: http://www.nhlbi.nih.gov/health/infoctr/index.htm Blood Pressure < 140/90 Blood Pressure 96/68(2023 2:34 PM SADDLE AND SIDE WIRE STITCHER) Rere Vargas Note: Caring for Your High [...] Where can I go for more information? [place] Heart Association National Center: http://www.americanheart.org 1. In the top header, click ? Conditions? . 2. In the top header, click ? high blood pressure.? 3. For a printable blood pressure tracker, scroll toward the bottom of the page to Related Tools, and click ? HBP Trackers.? 5-198-VAF-USA-1 or ( ) National Heart, Lung and Blood [place]: http://www.nhlbi.nih.gov/health/infoctr/index.htm Blood Pressure < 140/90 Blood Pressure 96/68(2023 2:34 PM SADDLE AND SIDE WIRE STITCHER) Cassie Parks Note: Caring for Your High [...] Where can I go for more information? [place] Heart Association National Center: http://www.americanheart.org 1. In the top header, click ? Conditions? . 2. In the top header, click ? high blood pressure.? 3. For a printable blood pressure tracker, scroll toward the bottom of the page to Related Tools, and click ? HBP Trackers.? 8-439-NCQ-USA-1 or ( ) National Heart, Lung and Blood [place]: http://www.nhlbi.nih.gov/health/infoctr/index.htm Exercise 5X per week (30 min per time) Exercise No Rere Kaufman Note: The [place] College of Sports Medicine recommends all adults [...] how to manage your diabetes: ? ? [place] Diabetes Association: www.diabetes.org 8-680-YMKQRUPU ( ) ? ? [place] Diabetes Association-Support group line: www.professional.diabetes.org ? ? [place] Heart Association: www.heart.org or 5-731-OEG-USA-1 ( ) [place] MyPlate: www.Link Triggermyplate.gov Have labs drawn Lifestyle No Rere Kaufman [...] on filedocumented in this encounter Care Teams Cooling Tower Operator Relationship Specialty [place] [address] [place] [address] PCP - General Internal Medicine 01/26/22 [place] [address] [place] [address] PCP - [facility] 02/19/22 [place] [address] [facility] [address] [place] [phone] Ophthalmology 04/06/16 Fawn Ramon DPM [address] [place] [address] Podiatry 01/24/21 documented as of this encounter
--- OUTSIDE RECORDS SUMMARY | 2024-04-03 00:59 | XMS_ITS | Encounter Summary ---
Author Organization [facility] Address [address] [facility] [place] [address] Care Team Providers Care Biology Department Chair Name Role Phone Ricco Andrew MD Unavailable [phone] Fawn Ramon DPM Unavailable [phone] Chris Aden MD Primary Care Provider [phone] Chris Aden MD Unavailable Reason for Visit * Reason Comments Refill Request Encounter Details Date Type Department Care Team (Late Contact Info) Description 04/09/2022 Refill [facility] - Family Medicine [address] [place] [address] Chris Aden MD [address] [place] [phone] Refill Request Social History Tobacco Use [...] st Contact Info) Description 04/07/2024 10:00 AM REMEDIATION PROJECT ENGINEER Office Visit [facility] [address] [facility] [address] [place] [address] Evelin Blanco APRN-CNP [address] [facility] [address] [place], [place] [id number] 06/06/2024 2:00 PM CDT Office Visit [facility] [address] [facility] [address] [place] [address] [place] [address] [facility] [address] [place] [address] documented as of this encounter Goals Goal Patient Goal Type Associated Problems Recent Progress Patient-Stated? Author Blood Pressure < 140/90 Blood Pressure 96/68(2023 2:34 PM REMEDIATION PROJECT ENGINEER) Rere Vargas Note: Caring for Your [...] Where can I go for more information? [place] Heart Association National Center: http://www.americanheart.org 1. In the top header, click ? Conditions? . 2. In the top header, click ? high blood pressure.? 3. For a printable blood pressure tracker, scroll toward the bottom of the page to Related Tools, and click ? HBP Trackers.? 0-305-CVZ-USA-1 or ( ) National Heart, Lung and Blood [place]: http://www.nhlbi.nih.gov/health/infoctr/index.htm Blood Pressure < 140/90 Blood Pressure 96/68(2023 2:34 PM REMEDIATION PROJECT ENGINEER) Rere Vargas Note: Caring for Your [...] Where can I go for more information? [place] Heart Association National Center: http://www.americanheart.org 1. In the top header, click ? Conditions? . 2. In the top header, click ? high blood pressure.? 3. For a printable blood pressure tracker, scroll toward the bottom of the page to Related Tools, and click ? HBP Trackers.? 6-257-QOD-USA-1 or ( ) National Heart, Lung and Blood [place]: http://www.nhlbi.nih.gov/health/infoctr/index.htm Blood Pressure < 140/90 Blood Pressure 96/68(2023 2:34 PM REMEDIATION PROJECT ENGINEER) Cassie Parks Note: Caring for Your [...] Where can I go for more information? [place] Heart Association National Center: http://www.americanheart.org 1. In the top header, click ? Conditions? . 2. In the top header, click ? high blood pressure.? 3. For a printable blood pressure tracker, scroll toward the bottom of the page to Related Tools, and click ? HBP Trackers.? 5-470-UET-USA-1 or ( ) National Heart, Lung and Blood [place]: http://www.nhlbi.nih.gov/health/infoctr/index.htm Exercise 5X per week (30 min per time) Exercise Rere Vargas Note: The [place] College of Sports Medicine recommends all adults [...] how to manage your diabetes: ? ? [place] Diabetes Association: www.diabetes.org 1-158-IDOGSOPJ ( ) ? ? [place] Diabetes Association-Support group line: www.professional.diabetes.org ? ? [place] Heart Association: www.heart.org or 6-073-FYI-USA-1 ( ) [employer] MyPlate: www.Looop Onlinemyplate.gov Have labs drawn Lifestyle No Rere Kaufman [...] on filedocumented in this encounter Care Teams Biology Department Chair Relationship Specialty [place] [address] [place] [address] PCP - General Internal Medicine 01/26/22 [place] [address] [place] [address] PCP - [facility] 02/19/22 [place] [address] [facility] [facility] [address] [place] [phone] Ophthalmology 04/06/16 Fawn Ramon DPM [address] [place] [address] Podiatry 01/24/21 documented as of this encounter
--- OUTSIDE RECORDS SUMMARY | 2024-04-03 00:59 | XMS_ITS | Encounter Summary ---
Author Organization [facility] Address [address] [place] [address] Care Team Providers Care Dimension Quarry Supervisor Name Role Phone Ricco Andrew MD Unavailable [phone] Fawn Ramon DPM Unavailable [phone] Chris Aden MD Primary Care Provider [phone] Chris Aden MD Unavailable Encounter Details Date Type Department Care Team (Latest Contact Info) Description 08/26/2022 Travel Social History Tobacco Use Types Packs/Day [...] st Contact Info) Description 04/07/2024 10:00 AM MACHINE CHAIN MAKER Office Visit [facility] [address] [facility] [address] [place] [address] Evelin Blanco, BUSINESS LIBRARIAN-DENIS [address] [facility] [address] [place] [address] 06/06/2024 2:00 PM CDT Office Visit [facility] [address] [facility] [address] [place] [address] [place] [address] [facility] [address] [place] [phone] documented as of this encounter Goals Goal Patient Goal Type Associated Problems Recent Progress Patient-Stated? Author Blood Pressure < 140/90 Blood Pressure 96/68(2023 2:34 PM MACHINE CHAIN MAKER) Rere Vargas Note: Caring for Your [...] Where can I go for more information? [place] Heart Association National Center: http://www.americanheart.org 1. In the top header, click ? Conditions? . 2. In the top header, click ? high blood pressure.? 3. For a printable blood pressure tracker, scroll toward the bottom of the page to Related Tools, and click ? HBP Trackers.? 9-107-PWA-USA- or ( ) National Heart, Lung and Blood [place]: http://www.nhlbi.nih.gov/health/infoctr/index.htm Blood Pressure < 140/90 Blood Pressure 96/68(2023 2:34 PM MACHINE CHAIN MAKER) Rere Vargas Note: Caring for Your [...] Where can I go for more information? [place] Heart Association National Center: http://www.americanheart.org 1. In the top header, click ? Conditions? . 2. In the top header, click ? high blood pressure.? 3. For a printable blood pressure tracker, scroll toward the bottom of the page to Related Tools, and click ? HBP Trackers.? 6-508-QKY-USA- or ( ) National Heart, Lung and Blood [place]: http://www.nhlbi.nih.gov/health/infoctr/index.htm Blood Pressure < 140/90 Blood Pressure 96/68(2023 2:34 PM MACHINE CHAIN MAKER) Cassie Parks Note: Caring for Your [...] Where can I go for more information? [place] Heart Association National Center: http://www.americanheart.org 1. In the top header, click ? Conditions? . 2. In the top header, click ? high blood pressure.? 3. For a printable blood pressure tracker, scroll toward the bottom of the page to Related Tools, and click ? HBP Trackers.? 4-246-PRD-USA-1 or ( ) National Heart, Lung and Blood [place]: http://www.nhlbi.nih.gov/health/infoctr/index.htm Exercise 5X per week (30 min per time) Exercise No Rere Kaufman Note: The [place] College of Sports Medicine recommends all [...] how to manage your diabetes: ? ? [place] Diabetes Association: www.diabetes.org 9-776-BGETPQKG ( ) ? ? [place] Diabetes Association-Support group line: www.professional.diabetes.org ? ? [place] Heart Association: www.heart.org or 5-604-YPH-USA-1 ( ) USDA MyPlate: www.Bioregencymyplate.gov Have labs drawn Lifestyle Rere Vargas Note: [...] on filedocumented in this encounter Care Teams Dimension Quarry Supervisor Relationship Specialty [place] [address] [place] [address] PCP - General Internal Medicine 01/26/22 [place] [address] [address] [place] [phone] PCP - [facility] 02/19/22 [place] [address] [address] Ophthalmology 04/06/16 Fawn Ramon DPM [address] [address] [place] [address] Podiatry 01/24/21 documented as of this encounter
--- OUTSIDE RECORDS SUMMARY | 2024-04-03 00:59 | XMS_ITS | Encounter Summary ---
Author Organization [facility] Address [address] [place] [address] Care Team Providers Care Territory Outside Sales Manager Name Role Phone Ricco Andrew MD Unavailable [phone] Fawn Ramon DPM Unavailable [phone] Chris Aden MD Primary Care Provider [phone] Chris Aden MD Unavailable Encounter Details Date Type Department Care Team (Late st Contact Info) Description 04/16/2022 Orders Only [facility] - Family Medicine [id number] [place] [address] Chris Aden MD [address] [place] [phone] Social History Tobacco Use Types Packs/Day [...] st Contact Info) Description 04/07/2024 10:00 AM SURGICAL INSTRUMENT TECHNICIAN Office Visit [facility] [address] [facility] [address] [place] [address] Evelin Blanco APRN-CNP [address] [facility] [address] [place] [address] 06/06/2024 2:00 PM CDT Office Visit [facility] [address] [facility] [address] [place], [place] [id number] [place] [address] [address] documented as of this encounter Goals Goal Patient Goal Type Associated Problems Recent Progress Patient-Stated? Author Blood Pressure < 140/90 Blood Pressure 96/68(2023 2:34 PM SURGICAL INSTRUMENT TECHNICIAN) Rere Vargas Note: Caring for Your [...] Where can I go for more information? [place] Heart Association National Center: http://www.americanheart.org 1. In the top header, click ? Conditions? . 2. In the top header, click ? high blood pressure.? 3. For a printable blood pressure tracker, scroll toward the bottom of the page to Related Tools, and click ? HBP Trackers.? 5-744-TZS-USA- or ( ) National Heart, Lung and Blood [place]: http://www.nhlbi.nih.gov/health/infoctr/index.htm Blood Pressure < 140/90 Blood Pressure 96/68(2023 2:34 PM SURGICAL INSTRUMENT TECHNICIAN) Rere Vargas Note: Caring for Your [...] Where can I go for more information? [place] Heart Association National Center: http://www.americanheart.org 1. In the top header, click ? Conditions? . 2. In the top header, click ? high blood pressure.? 3. For a printable blood pressure tracker, scroll toward the bottom of the page to Related Tools, and click ? HBP Trackers.? 1-520-YVA-USA- or ( ) National Heart, Lung and Blood [place]: http://www.nhlbi.nih.gov/health/infoctr/index.htm Blood Pressure < 140/90 Blood Pressure 96/68(2023 2:34 PM SURGICAL INSTRUMENT TECHNICIAN) Cassie Parks Note: Caring for Your [...] Where can I go for more information? [place] Heart Association National Center: http://www.americanheart.org 1. In the top header, click ? Conditions? . 2. In the top header, click ? high blood pressure.? 3. For a printable blood pressure tracker, scroll toward the bottom of the page to Related Tools, and click ? HBP Trackers.? 1-290-RHG-USA-1 or ( ) National Heart, Lung and Blood [place]: http://www.nhlbi.nih.gov/health/infoctr/index.htm Exercise 5X per week (30 min per time) Exercise Rere Vargas Note: The [place] College of Sports Medicine recommends all adults [...] how to manage your diabetes: ? ? [place] Diabetes Association: www.diabetes.org 5-731-BYNOWCTB ( ) ? ? [place] Diabetes Association-Support group line: www.professional.diabetes.org ? ? [place] Heart Association: www.heart.org or 1-931-PEF-USA-1 ( ) [employer] MyPlate: www.In Motion Technologymyplate.gov Have labs drawn Lifestyle No Rere [...] on filedocumented in this encounter Care Teams Territory Outside Sales Manager Relationship Specialty [place] [address] [place] [address] PCP - General Internal Medicine 01/26/22 [place] [address] [address] [place] [address] PCP - [facility] 02/19/22 [place] [address] [facility] [address] [place] [address] Ophthalmology 04/06/16 Fawn Ramon DPM [address] [address] [place] [address] Podiatry 01/24/21 documented as of this encounter
--- OUTSIDE RECORDS SUMMARY | 2024-04-03 00:59 | XMS_ITS | Encounter Summary ---
Author Organization [facility] Address [address] [place] [address] Care Team Providers Care Drill Runner Name Role Phone Ricco Andrew MD Unavailable [phone] Rosana Solo MD Unavailable [phone] Fawn Ramon Kae Unavailable [phone] Reason for Visit * Reason Onset Date Comments Glucose Meter Readings 07/22/2021 Encounter Details Date Type Department Care Team (Late st Contact Info) Description 07/22/2021 Telephone [facility] - Family Medicine [address] [place] [id number] Rosana Solo MD [address] [facility] [address] [place] [address] Glucose Meter Readings Social History Tobacco Use Types Packs/Day Years [...] Telephone Encounter - Radha Michael RN - 07/22/2021 3:42 PM CDT Informed daughter that no med adjustments at this time. Further concerns will be addressed at OV tomorrow. * Telephone Encounter - Amelia Magana - 07/22/2021 3:31 PM CDT Who is calling? Patient's daughter If other than self is caller listed on the HIPAA? yes If caller is anyone other than listed above, where are they calling from? N/A What is the reason for call? Patient's daughter calling to report patient's blood sugar is now at 261 at 3:20pm Expected Response from the Clinic? ( ex. Call back, etc..) Please contact patient's daughter Cassie at: [phone]. * Telephone Encounter - Rosana Solo MD - 07/22/2021 12:56 PM CDT I'd just wait until sees CURATOR OF PHOTOGRAPHY AND PRINTS tomorrow before making adjustment as if we give too much glipizide he can bottom out. Will likely need updated hgb A1c at appointment * Telephone Encounter - Eugenie Brown - 07/22/2021 11:50 AM CDT Pts glucose levels have been flucatating for about 2-3 weeks. Today it was 204 at 11:30. FBG this morning was 174 Pt has been complaining of fatigue. Daughter would like to know can something be done to lower the glucose level until his appt tomorrow with CURATOR OF PHOTOGRAPHY [employer]INTS. Pt has been taking glipizide as directed documented in this encounter Plan of Treatment Upcoming Encounters Date Type Department Care Team (Late st Contact Info) Description 04/07/2024 10:00 AM RETAIL INTERIOR DESIGNER Office Visit [facility] [address] [facility] [address] [place], [place] [id number] Evelin Blanco APRN-CNP [address] [facility] [address] [place] [address] 06/06/2024 2:00 PM CDT Office Visit [facility] [address] [facility] [address] [place] [address] [place] [address] [facility] [address] [place] [address] documented as of this encounter Goals Goal Patient Goal Type Associated Problems Recent Progress Patient-Stated? Author Blood Pressure < 140/90 Blood Pressure 96/68(2023 2:34 PM RETAIL INTERIOR DESIGNER) Rere Vargas Note: Caring for Your High [...] Where can I go for more information? [place] [employer] National Center: http://www.americanheart.org 1. In the top header, click ? Conditions? . 2. In the top header, click ? high blood pressure.? 3. For a printable blood pressure tracker, scroll toward the bottom of the page to Related Tools, and click ? HBP Trackers.? 8-264-YDV-USA-1 or ( ) National Heart, Lung and Blood [place]: http://www.nhlbi.nih.gov/health/infoctr/index.htm Blood Pressure < 140/90 Blood Pressure 96/68(2023 2:34 PM RETAIL INTERIOR DESIGNER) Rere Vargas Note: Caring for Your High [...] Where can I go for more information? [place] [employer] National Center: http://www.americanheart.org 1. In the top header, click ? Conditions? . 2. In the top header, click ? high blood pressure.? 3. For a printable blood pressure tracker, scroll toward the bottom of the page to Related Tools, and click ? HBP Trackers.? 8-794-XFT-USA- or ( ) National Heart, Lung and Blood [place]: http://www.nhlbi.nih.gov/health/infoctr/index.htm Blood Pressure < 140/90 Blood Pressure 96/68(2023 2:34 PM RETAIL INTERIOR DESIGNER) Susan Marie Cassie F Note: Caring for [...] Where can I go for more information? [place] [employer] National Center: http://www.americanheart.org 1. In the top header, click ? Conditions? . 2. In the top header, click ? high blood pressure.? 3. For a printable blood pressure tracker, scroll toward the bottom of the page to Related Tools, and click ? HBP Trackers.? 8-178-MLH-USA- or ( ) National Heart, Lung and Blood [place]: http://www.nhlbi.nih.gov/health/infoctr/index.htm Exercise 5X per week (30 min per time) Exercise No Rere Kaufman Note: The [place] [employer] recommends all adults [...] how to manage your diabetes: ? ? [place] [employer] Association: www.diabetes.org 9-664-EZWTPBAZ ( ) ? ? [place] [employer] Association-Support group line: www.professional.diabetes.org ? ? [place] Heart Association: www.heart.org or 8-609-EZC-USA-1 ( ) [employer]ONT[employer] MyPlate: www.RecruitLoopmyplate.gov Have labs drawn Lifestyle Rere Vargas Note: [...] on filedocumented in this encounter Care Teams Drill Runner Relationship Specialty Start Date End Date Rosana Solo MD [address] [facility] [address] [place] [address] PCP - Attributed-[facility] 02/19/19 [place] [address] [facility] [address] [place] [address] Ophthalmology 04/06/16 Fawn Ramon DPM [address] [facility] [address] [place] [address] Podiatry 01/24/21 documented as of this encounter
--- OUTSIDE RECORDS SUMMARY | 2024-04-03 00:59 | XMS_ITS | Encounter Summary ---
Author Organization [facility] Address [address] [place] [address] Care Team Providers Care Carbon Brushes Assembler Name Role Phone Ricco Andrew MD Unavailable [phone] Fawn Ramon DPM Unavailable [phone] Chris Aden MD Primary Care Provider Chris Aden MD Unavailable Reason for Visit * Reason Onset Date Comments Follow-up Medicare Subsequent Annual Wellness Visit 4 month COVID-19 IMMUNIZATION/INJECTION 05/26/2022 Encounter Details Date Type Department Care Team (Late st Contact Info) Description 05/26/2022 1:30 PM RURAL CARRIER Office Visit [facility] - Family Medicine [id number] [place] [phone] Chris Aden MD [address] [place] [phone] Fall, initial encounter (Primary Dx); Traumatic cephalohematoma, initial encounter; Need for vaccination; 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, without long-term current use of insulin, unspecified retinopathy severity (HCC); Type 2 diabetes mellitus with diabetic neuropathy, without long-term current use of insulin (HCC); Type 2 diabetes mellitus with stage 3 chronic kidney disease, without long-term current use of insulin, unspecified whether stage 3a or 3b CKD (HCC); Hypothyroidism, adult; Stage 3b chronic kidney disease (HCC); Alzheimer's dementia without behavioral disturbance (HCC); Screening, lipid; Vitamin D deficiency; Routine general medical examination at a health care facility; Slow transit constipation Social History Tobacco Use Types Packs/Day Years [...] Sign Reading Time Taken Comments Blood Pressure 104/60 05/26/2022 1:49 PM RURAL CARRIER Pulse 73 05/26/2022 1:49 PM RURAL CARRIER Temperature 36.8 ??C (98.2 ??F) 05/26/2022 1:49 PM CS T Respiratory Rate 16 05/26/2022 1:49 PM RURAL CARRIER Oxygen Saturation 99% 05/26/2022 1:49 PM RURAL CARRIER Inhaled Oxygen Concentration - - Weight 70.7 kg (155 lb 12.8 oz) 05/26/2022 1:49 PM RURAL CARRIER Height 170.2 cm (5' 7) 05/26/2022 1:49 PM RURAL CARRIER Body Mass Index 24.4 05/26/2022 1:49 PM RURAL CARRIER documented in this encounter Patient Instructions * Patient Instructions* Juany Sommers MA - 05/26/2022 1:49 PM RURAL CARRIER Images from the original note were not included. Vaccine recipients are encouraged to enroll in the CDC V-SAFE program for post vaccination monitoring. Sign up with your smartphone's browser at Ataxion.cdc.gov or Aim your smartphone's camera at this code. COVID-19 Preparedness: Post-Vaccination Frequently Asked Questions Q. Do I need to continue to wear a mask and other PPE after both vaccine doses? A. Yes. While researchers and medical record specialist learn more about the protection that COVID-19 vaccines provides, it will be important than ever for everyone to continue using all the tools available to us to help stop this pandemic, like covering your mouth and nose with a mask, washing your hands, and staying at least six feet away from others. Here are a few patel reasons why it is important to continue with our current mitigation methods: ?? The initial clinical trials of the vaccine were not designed to determine whether vaccinated people could still spread the coronavirus without developing symptoms. Detailed data has not been released yet on whether the vaccines offer what???s known as sterilizing immunity, in which those who arevaccinated can???t contract or pass on the virus ?? The duration of protection from the vaccine against symptomatic disease is not yet known ?? The COVID-19 vaccines are not 100% effective. Effectiveness against symptomatic disease has beendocumented at 94-95% during the clinical trials. That means one out of every 20 people who get thisvaccine could still get a symptomatic infection. ?? Following the COVID-19 vaccination, immunity is not immediate. Q. Will [facility] change its current screening or testing protocols now that we have a vaccine? A. No. We do not anticipate changing any of our screening protocols, COVID testing protocols, or visitor policies in the near term until we have more data about the vaccine. Our infection control andinfectious disease team will continue to re-evaluate our guidelines as more data becomes avaialble. Q. What is the impact of the COVID-19 variants we hear about in the news? A. Viruses constantly change through mutation, and new variants of a virus are expected to occur over time. Multiple variants of the virus that causes COVID-19 have been documented in the [place] and globally during this pandemic. These variants haven't been around long enough to say for certain that the new vaccines are effective against it, but scientists aren't too worried about that -- lab studies suggest the vaccines will be protective against this strain. New variants will continue to appear as the effects of the COVID-19 pandemic continue. As new variants evolve scientists will continue to evaluate vaccine efficacy against the new variants. Given what we know about the coronavirus, it is unlikely that the virus would be able to rapidly change in such a way to escape the immune system. Escape from immunity requires that a virus accumulate a seriesof mutations, each allowing the virus to evade the effectiveness of the body???s defenses. Q. When can we stop wearing masks and social distancing? A.There is not enough information currently available to say if or when CDC or public health will stop recommending that people wear masks and avoid close contact with others to help prevent the spread of the virus. Experts need to understand more about the protection that COVID-19 vaccines providebefore making that decision. Other factors, including how many people get vaccinated and how the virus is spreading in communities, will also affect this decision. L CARRIER documented in this encounter Progress Notes * Chris Aden MD - 05/26/2022 1:54 PM CST MEDICARE ANNUAL WELLNESS VISIT REVIEW [...] by mouth Two times a week ??? albuterol-ipratropium (Duo-Neb) 0.5-2.5 (3) MG/3ML nebulizer solution Inhale 3 mL by mouth 3 times daily (Patient not taking: Reported on 05/26/2022) ??? DIONICIO ASPIRIN REGIMEN PO Take 81 mg by mouth once daily ??? Blood Glucose Monitoring Suppl (ONE TOUCH ULTRA 2) w/Device KIT Use 1 Each 2 times daily ??? budesonide (Pulmicort) 0.25 MG/2ML nebulizer suspension Inhale 2 mL by mouth 2 times daily ??? docusate sodium (Colace) 100 MG capsule Take 1 (one) capsule by mouth 2 times daily Reasons: Constipation 60 capsule 5 ??? glipiZIDE (Glucotrol) 5 MG tablet Take 1 (one) tablet by mouth 2 times daily, before breakfast and supper 180 tablet 2 ??? ketoconazole (Nizoral) 2 % shampoo Apply to affected area Three times a week Reasons: Dandruff 120 mL 5 ??? levothyroxine (Synthroid) 75 MCG tablet Take 1 (one) tablet by mouth daily before breakfast 90 tablet 3 ??? loratadine (Claritin) 10 MG tablet Take 1 (one) tablet by mouth once daily 90 tablet 3 ??? memantine (Namenda) 5 [...] water or juice daily 527 g 4 No current facility-administered medications for this visit. CURRENT DIET does not restrict carbohydrates PHYSICAL ACTIVITY Exercise: irregularly DEPRESSION SCREENING AND RISK FACTORS Depression risk factors identified: no PHQ-2:PHQ2 TOTAL SCORE: 0 PHQ-9: HEALTH RISK ASSESSMENT, FUNCTIONAL ABILITY & SAFETY Self Assessment 1. During the past 4 weeks, how would you rate your health in general?: Very good Risks 2. Do you have problems with stress, anger, loneliness, isolation or fatigue?: No 3. Do you smoke/vape/use tobacco?: No 4. How often did you have a drink containing alcohol in the past year?: Never 5. Do you use recreational drugs?: Never 6. What best describes your activity level during the past 4 weeks?: Very Active 7. Do you participate or engage in physical activity or exercise each week?: Yes 7A .How many minutes per week?: Greater than 150 8. Do you have sexual problems or difficuilties with physical intimacy?: (na) Safety 9. Do you always fasten your [...] you feel unsteady when standing or walking?: No 17. Do you worry about falling?: No Activities 18. Do you need help from [...] have problems with your teeth or dentures?: (!) Yes Function 25. In the past 4 weeks, how would you rate your pain, aches, soreness, or discomfort?: No pain 26. Do you have any history of leaking urine or urinary incontinence?: (!) Yes CURRENT CARE PROVIDERS Patient Care Team: Chris Aden MD as PCP - General (Internal Medicine) Chris Aden MD as PCP - [facility] Ricco Johnson MD (Ophthalmology) Fawn Ramon DPM (Podiatry) END-OF-LIFE PLANNING ADVANCED DIRECTIVE: Yes CODE STATUS Full Code SUBJECTIVE: Mk Sanches is a 86 year old male here today for Chief Complaint Patient presents with ??? Follow-up ??? Medicare Subsequent Annual Wellness Visit 4 month ??? COVID-19 IMMUNIZATION/INJECTION Patient came in today follow-up for fall a few weeks back reported parietal so follow hematoma wentto the ER in different hospital was sent home. He was told that he developed seizure they recommended neurology consult. History of diabetes, hypothyroidism, chronic kidney disease, dementia, vitamin-D deficiency. Current Outpatient Medications Medication Sig Dispense Refill ??? Acetaminophen (TYLENOL ARTHRITIS PAIN PO) Take 500 mg by mouth Two times a week ??? albuterol-ipratropium (Duo-Neb) 0.5-2.5 (3) MG/3ML nebulizer solution Inhale 3 mL by mouth 3 times daily (Patient not taking: Reported on 05/26/2022) ??? DIONICIO ASPIRIN REGIMEN PO Take 81 mg by mouth once daily ??? Blood Glucose Monitoring Suppl (ONE TOUCH ULTRA 2) w/Device KIT Use 1 Each 2 times daily ??? budesonide (Pulmicort) 0.25 MG/2ML nebulizer suspension Inhale 2 mL by mouth 2 times daily ??? docusate sodium (Colace) 100 MG capsule Take 1 (one) capsule by mouth 2 times daily Reasons: Constipation 60 capsule 5 ??? glipiZIDE (Glucotrol) 5 MG tablet Take 1 (one) tablet by mouth 2 times daily, before breakfast and supper 180 tablet 2 ??? ketoconazole (Nizoral) 2 % shampoo Apply to affected area Three times a week Reasons: Dandruff 120 mL 5 ??? levothyroxine (Synthroid) 75 MCG tablet Take 1 (one) tablet by mouth daily before breakfast 90 tablet 3 ??? loratadine (Claritin) 10 MG tablet Take 1 (one) tablet by mouth once daily 90 tablet 3 ??? memantine (Namenda) 5 [...] water or juice daily 527 g 4 No current facility-administered medications for this visit. [...] OBJECTIVE: BP Readings from Last 3 Encounters: 05/26/22 104/60 04/09/22 94/62 01/26/22 104/64 Wt Readings from Last 3 Encounters: 05/26/22 70.7 kg (155 lb 12.8 oz) 04/09/22 69.1 kg (152 lb 6.4 oz) 01/26/22 71.8 kg (158 lb 6.4 oz) BP 104/60 (BP SITE: RIGHT ARM, BP POSITION: SITTING, BP CUFF SIZE: 11) Pulse 73 Temp 98.2 ??F (36.8 ??C) (Temporal) Resp 16 Ht 1.702 m (5' 7) Wt 70.7 kg (155 lb 12.8 oz) SpO2 99% Body mass index is 24.4 kg/m??. Physical Exam Vitals and nursing note reviewed. Constitutional: Appearance: Normal appearance. HENT: Head: Normocephalic and atraumatic. Cardiovascular: Rate and Rhythm: Normal rate and [...] injured from the fall?: (!) Yes Depression: PHQ-2:PHQ2 TOTAL SCORE: 0 PHQ-9: ASSESSMENT: Encounter Diagnoses Name Primary? Fall, initial encounter Yes ??? Traumatic cephalohematoma, initial encounter ??? Need for vaccination ??? 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 Type 2 diabetes mellitus with diabetic neuropathy, without long-term current use of insulin (CMS/HCC) ??? Type 2 diabetes mellitus with stage 3 chronic kidney disease, without long- term current use of insulin, unspecified whether stage 3a or 3b CKD (CMS/HCC) ??? Hypothyroidism, adult ??? Stage 3b chronic kidney disease (CMS/HCC) ??? Alzheimer's dementia without behavioral disturbance (CMS/HCC) ??? Screening, lipid ??? Vitamin D deficiency ??? Routine general medical examination at a health care facility PLAN: Orders Placed This Encounter ??? Pfizer Bivalent Booster (age 12 years +) ??? LIPID PROFILE W TCHOL/HDL Order Specific [...] to patient Answer: Immediate ??? AMB REFERRAL TO NEUROLOGY Standing Status: Future Standing Expiration Date: 2023 Referral Type: Evaluate & Treat Referral Reason: Specialty Services Required Referred to Provider: Johann Gordon MD Requested Specialty: Neurology Number of Visits Requested: 1 Previous notes reviewed the patient Medication reviewed the patient Labs and imaging reviewed the patient Discussed with the patient the finding plan treatment, agreed to the plan. -fall, traumatic cephalhematoma parietal. Fall precaution explained to the patient. Five referral to neurology for possible seizure in the past, the family and the patient stated thatthey did not witness any seizure but they would told and the hospital he had 1 episode of seizure while was in the hospital. Constipation: Continue Colace 100 mg p.o. twice a day. Continue MiraLax 17 g powder daily as needed. Drink plenty of fluid. Increase vegetables fruit. Dementia: Continue Namenda 5 mg p.o. twice a day. Diabetes: Continue Glucotrol 5 mg p.o. twice a day. 1800 calories diabetic diet encouraged. Check the feet on daily basis looking for callus lesions. Follow-up with ophthalmology as scheduled. A comprehensive diabetic foot exam was performed today on bare feet including visual inspection, monofilament, and assessment of pulses. The exam was normal, showing no lesions. Patient had normal pulses and sensation. The patient was instructed to check his feet on a daily basis looking for callus and lesion. Chronic kidney disease, Will monitor creatinine kidney function. Hypothyroidism: Continue Synthroid 75 mg p.o. daily and empty stomach. Follow-up 5 months or as needed. Lab will be done 2 weeks before next appointment. Further recommendations pending the above results and patient's clinical coarse. The patient indicates understanding of these issues and agrees with the plan. Return in about 5 months (around 10/26/2022), or if symptoms worsen or fail to improve, for labs,imigings, meds. PHYSICAL EXAM Vitals: 05/26/22 1349 BP: 104/60 Pulse: 73 Resp: 16 Temp: 98.2 ??F (36.8 ??C) SpO2: 99% Weight: 70.7 kg (155 lb 12.8 oz) Height: 1.702 m (5' 7) Body mass index is 24.4 kg/m??. VISUAL ACUITY SCREEN No results found. ASSESSMENT AND PLAN ICD-10-CM 1. Fall, initial encounter W19.XXXA AMB REFERRAL TO NEUROLOGY 2. Traumatic cephalohematoma, initial encounter S00.93XA AMB REFERRAL TO NEUROLOGY 3. Need for vaccination Z23 Pfizer Bivalent Booster (age 12 years +) 4. 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 Type 2 diabetes mellitus with diabetic neuropathy, without long-term current use of insulin (CMS/HCC) E11.40 HM DIABETES FOOT EXAM HEMOGLOBIN A1C W EAG MICROALB/CREAT RATIO URINE RANDOM PANEL 6. Type 2 diabetes mellitus with stage 3 chronic kidney disease, without long- term current use of insulin, unspecified whether stage 3a or 3b CKD (CMS/HCC) E11.22 N18.30 7. Hypothyroidism, adult E03.9 TSH 8. Stage 3b chronic kidney disease ([facility]) N18.32 9. Alzheimer's dementia without behavioral disturbance ([facility]) G30.9 F02.80 10. Screening, lipid Z13.220 LIPID PROFILE W TCHOL/HDL 11. Vitamin D deficiency E55.9 VITAMIN D 25-HYDROXY 12. Routine general medical examination at a health care facility Z00.00 COMPREHENSIVE METABOLIC PANEL CBC W/O DIFFERENTIAL SCREENING SCHEDULE Health Maintenance Topic Date Due ??? DIABETES-HGB A1C 09/02/2021 ??? ZOSTER VACCINE (1 of 2) 07/19/2022 (Originally [birth year]/28/1987) ??? DIABETES-EYE EXAM 01/07/2023 ??? DIABETES-FOOT EXAM WITH MONOFILAMENT 2023 ??? DTAP/TDAP/TD VACCINES (3 - Td or Tdap) 10/03/2029 ??? PNEUMOCOCCAL VACCINE 65+ Completed ??? INFLUENZA VACCINE Completed ??? COVID-19 VACCINE Completed ??? MEDICARE AWV - CALENDAR YEAR Completed ??? DEPRESSION SCREENING Completed ??? HEPATITIS B VACCINE Aged Out ??? HIB VACCINE Aged Out ??? MENINGOCOCCAL VACCINE Aged Out ??? DIABETES-STATIN Discontinued EDUCATION, COUNSELING, AND REFERRAL BASED ON THE PREVIOUS SCREENING Above screenings were performed and referrals were made as appropriately needed. Orders Placed This Encounter ??? Pfizer Bivalent Booster (age 12 years +) ??? LIPID PROFILE W TCHOL/HDL ??? COMPREHENSIVE METABOLIC PANEL ??? CBC W/O DIFFERENTIAL ??? VITAMIN D 25-HYDROXY ??? HEMOGLOBIN A1C W EAG ??? MICROALB/CREAT RATIO URINE RANDOM PANEL ??? TSH ??? AMB REFERRAL TO NEUROLOGY L CARRIER * Juany Sommers MA - 05/26/2022 1:49 PM CST COVID screening checklist was reviewed with the patient. The Information sheet was given prior to administration. Injection site aseptically cleansed and injection given per Immunization(s) protocol.See Imm/Injections activity for details. L CARRIER documented in this encounter Plan of Treatment Upcoming Encounters Date Type Department Care Team (Late st Contact Info) Description 04/07/2024 10:00 AM RURAL CARRIER Office Visit [facility] [id number] [place] [phone] Evelin Blanco, JUNIOR GRAPHIC DESIGNER-PROPOSAL MANAGER [id number] [place] [phone] 06/06/2024 2:00 PM CDT Office Visit [facility] [id number] [place] [phone] Chris Aden MD [address] [place] [phone] Scheduled Orders Name Type Priority Associated Diagnoses Orde r Schedule LIPID PROFILE W TCHOL/HDL Lab Routine Screening, lipid Ordered: 05/26/2022 COMPREHENSIVE METABOLIC PANEL Lab Routine Routine general medical examination at a health care facility Ordered: 05/26/2022 CBC W/O DIFFERENTIAL Lab Routine Routine general medical examination at a health care facility Ordered: 05/26/2022 VITAMIN D 25-HYDROXY Lab Routine Vitamin D deficiency Ordered: 05/26/2022 HEMOGLOBIN A1C W EAG Lab Routine Type 2 diabetes mellitus with diabetic neuropathy, without long-term current use of insulin ([facility]) Ordered: 05/26/2022 MICROALB/CREAT RATIO URINE RANDOM PANEL Lab Routine Type 2 diabetes mellitus with diabetic neuropathy, without long-term current use of insulin ([facility]) Ordered: 05/26/2022 TSH Lab Routine Hypothyroidism, adult Ordered: 05/26/2022 documented as of this encounter Goals Goal Patient Goal Type Associated Problems Recent Progress Patient-Stated? Author Blood Pressure < 140/90 Blood Pressure 96/68(2023 2:34 PM RURAL CARRIER) Rere Vargas Note: Caring for Your High [...] Where can I go for more information? [place] [employer] National Center: http://www.americanheart.org 1. In the top header, click ? Conditions? . 2. In the top header, click ? high blood pressure.? 3. For a printable blood pressure tracker, scroll toward the bottom of the page to Related Tools, and click ? HBP Trackers.? 6-498-ZPQ-USA- or ( ) National Heart, Lung and Blood Phelps: http://www.nhlbi.nih.gov/health/infoctr/index.htm Blood Pressure < 140/90 Blood Pressure 96/68(2023 2:34 PM RURAL CARRIER) No Rere Kaufman Note: Caring for Your [...] Where can I go for more information? [place] [employer] Association National Center: http://www.americanheart.org 1. In the top header, click ? Conditions? . 2. In the top header, click ? high blood pressure.? 3. For a printable blood pressure tracker, scroll toward the bottom of the page to Related Tools, and click ? HBP Trackers.? 6-031-DKW-USA-1 or ( ) National Heart, Lung and Blood Phelps: http://www.nhlbi.nih.gov/health/infoctr/index.htm Blood Pressure < 140/90 Blood Pressure 96/68(2023 2:34 PM RURAL CARRIER) No Cassie Marie Note: Caring for Your [...] Where can I go for more information? [place] [employer] Association National Center: http://www.americanheart.org 1. In the top header, click ? Conditions? . 2. In the top header, click ? high blood pressure.? 3. For a printable blood pressure tracker, scroll toward the bottom of the page to Related Tools, and click ? HBP Trackers.? 8-192-OEB-USA-1 or ( ) National Heart, Lung and Blood Phelps: http://www.nhlbi.nih.gov/health/infoctr/index.htm Exercise 5X per week (30 min per time) Exercise Rere Vargas Note: The [place] [employer] recommends all adults [...] how to manage your diabetes: ? ? [place] [employer] Association: www.diabetes.org 9-140-YLLIFPOF ( ) ? ? [place] Diabetes Association-Support group line: www.professional.diabetes.org ? ? [place] Heart Association: www.heart.org or 4-663-RWA-USA-1 ( ) [employer] MyPlate: www.[employer] Solutionsmyplate.gov Have labs drawn Lifestyle Rere Vargas Note: [...] as of this encounter Visit Diagnoses Diagnosis Fall, initial encounter- Primary Traumatic cephalohematoma, initial encounter Need for vaccination Need for prophylactic vaccination and inoculation against unspecified single disease Type 2 diabetes mellitus with both eyes [...] (HCC) Hypothyroidism, adult Other specified acquired hypothyroidism Stage 3b chronic kidney disease (HCC) Alzheimer's dementia without behavioral disturbance (HCC) Alzheimer's disease Screening, lipid Screening for lipoid disorders Vitamin D deficiency Routine general medical examination at a health care facility Slow transit constipation documented in this encounter Care Teams Carbon Brushes Assembler Relationship Specialty [place] [address] [place] [phone] PCP - General Internal Medicine 01/26/22 [place] [address] [place] [phone] PCP - [facility] 02/19/22 [place] [address] [facility] [address] [place] [address] Ophthalmology 04/06/16 Fawn Ramon DPM [address] [place] [phone] Podiatry 01/24/21 documented as of this encounter
--- OUTSIDE RECORDS SUMMARY | 2024-04-03 00:59 | XMS_ITS | Encounter Summary ---
Author Organization [facility] Address [address] [place] [address] Care Team Providers Care Medical Lab Technologist Name Role Phone Ricco Andrew MD Unavailable [phone] Fawn Ramon DPM Unavailable [phone] Chris Aden MD Primary Care Provider [phone] Chris Aden MD Unavailable Reason for Visit * Reason Comments Constipation Pain Back Left side of the low er back Encounter Details Date Type Department Care Team (Late st Contact Info) Description 08/26/2022 2:40 PM CDT Office Visit [facility] - Family Medicine [address] [place] [address] Evelin Blanco, JOSETTE-TRIPLE DRUM OPERATOR [address] [facility] [place] [address] Acute midline thoracic back pain (Primary Dx); Other constipation Social History Tobacco Use Types Packs/Day [...] Sign Reading Time Taken Comments Blood Pressure 102/70 08/26/2022 2:35 PM CDT Pulse 87 08/26/2022 2:35 PM CDT Temperature 36.3 ??C (97.4 ??F) 08/26/2022 2:35 PM CD T Respiratory Rate 18 08/26/2022 2:35 PM CDT Oxygen Saturation 99% 08/26/2022 2:35 PM CDT Inhaled Oxygen Concentration - - Weight 70.6 kg (155 lb 9.6 oz) 08/26/2022 2:35 P M CDT Height 170.2 cm (5' 7.01) 08/26/2022 2:35 PM CD T Body Mass Index 24.36 08/26/2022 2:35 PM CDT documented in this encounter Patient Instructions * Patient Instructions* Evelin Blanco APRN-CNP - 08/26/2022 3:20 PM CDT We are checking xrays of the upper/middle back, abdomen and will contact you with results. Try some tylenol for the pain. ES 500mg can take 2 of them 3 times a day. If obstruction, we will have to have you come to the ER. If no obstruction, then get a bottle of magnesium citrate and drink 1/2, wait a couple of hours andif no movement repeat the other half. Then resume regular regimen. If you would rather you can try dulcolax but may not be strong enough. You can also use milk of magnesia. documented in this encounter Progress Notes * Evelin Blanco APRN-CNP - 08/26/2022 3:09 PM CDT SUBJECTIVE: Mk Sanches is a 87 year old male here for: Chief Complaint Patient presents with ??? Constipation ??? Pain Back Left side of the lower back Past Medical History: Diagnosis Date ??? Benign hypertension with chronic kidney disease 02/05/2016 BP controlled off rx. resolved ??? Chronic renal failure ??? Dementia (CMS/HCC) ??? Dermatitis ??? DM (diabetes mellitus) (CMS/HCC) ??? HTN (hypertension) ??? Hx of rheumatic fever ??? Hypothyroid ??? Seasonal allergies ??? Trigger finger HPI: Pt has been constipated for the past 3 days and has some back pain also. No dietary changes inthe past several days. Last BM was 08-22-2022. No nausea nor vomiting. Had small amount in pull up and then when she wiped him there was some stool on the wipe but not moving out. Review of systems negative except as noted in the HPI Social History Tobacco Use ??? Smoking status: Never Passive exposure: Current ??? Smokeless tobacco: Former Types: Chew Quit date: 01/02/2021 Vaping Use ??? Vaping status: Never Used Substance Use Topics ??? Alcohol use: No [...] 527 g 4 No current facility-administered medications on file prior to visit. Allergies Allergen Reactions ??? Ibuprofen Other HE HAS CKD AND SHOULD NOT TAKE NSAID'S ??? Septra Ds [Sulfamethoxazole W-Trimethoprim] Rash OBJECTIVE: Vitals: 08/26/22 1435 BP: 102/70 Pulse: 87 Resp: 18 Temp: 97.4 ??F (36.3 ??C) SpO2: 99% Weight: 70.6 kg (155 lb 9.6 oz) Height: 1.702 m (5' 7.01) Body mass index is 24.36 kg/m??. General appearance - alert, well appearing, and in no distress Psych - alert and oriented to person, place, and time, normal affect ENT -Eyes: conjunctiva clear, no drainage. Ears: tm right pearly nassar, positive light reflex, landmarks present; tm left pearly nassar, positive light reflex, landmarks present. Nose: pink turbinates, clear drainage. Frontal and maxillary sinuses not tender to palpation. Throat: pink, moist mucous membranes, tonsils not enlarged, no drainage. Neck - trachea midline, no thyromegaly, supple, [...] no carotid bruits. Abdomen - bowel sounds present but hypoactive, soft, nontender, nondistended, no masses or hepatosplenomegaly Extremities - unsteady gait, full range of motion, no clubbing nor cyanosis. Upper to mid back painmidline Skin - warm, dry, no rashes in visible areas. Neuro - PERRLA, CN ll through Xll intact. . ASSESSMENT Encounter Diagnoses Name Primary? Acute midline thoracic back pain Yes ??? Other constipation PLAN: Orders Placed This Encounter ??? XR THORACIC SPINE 4VW OR MORE Standing Status: Future Standing Expiration Date: 08/26/2023 Order Specific Question: Release to patient Answer: Immediate Order Specific Question: Exam to be performed? Answer: Per Radiologist protocol ??? XR ABD OBSTRUCTION SERIES 2VW Standing Status: Future Standing Expiration Date: 08/27/2023 Order Specific Question: Release to patient Answer: Immediate We are checking xrays of the upper/middle back, abdomen and will contact you with results. Try some tylenol for the pain. ES 500mg can take 2 of them 3 times a day. If obstruction, we will have to have you come to the ER. If no obstruction, then get a bottle of magnesium citrate and drink 1/2, wait a couple of hours andif no movement repeat the other half. Then resume regular regimen. If you would rather you can try dulcolax but may not be strong enough. You can also use milk of magnesia. Further recommendations pending the above results and patient's clinical course. Follow-up visit 10-27-2022. The patient indicates understanding of these issues and agrees with the plan. documented in this encounter Plan of Treatment Upcoming Encounters Date Type Department Care Team (Late st Contact Info) Description 04/07/2024 10:00 AM REVENUE OFFICER Office Visit [facility] Family Medicine [address] [place] [address] Evelin Blanco APRN-CNP [address] [facility] [address] [facility] [place], [place] [id number] 06/06/2024 2:00 PM CDT Office Visit [facility] Family Medicine [address] [place] [address] [place] [address] [place] [phone] documented as of this encounter Goals Goal Patient Goal Type Associated Problems Recent Progress Patient-Stated? Author Blood Pressure < 140/90 Blood Pressure 96/68(2023 2:34 PM REVENUE OFFICER) Rere Vargas Note: Caring for Your High [...] Where can I go for more information? [place] Heart Association National Center: http://www.americanheart.org 1. In the top header, click ? Conditions? . 2. In the top header, click ? high blood pressure.? 3. For a printable blood pressure tracker, scroll toward the bottom of the page to Related Tools, and click ? HBP Trackers.? 8-091-JGJ-USA- or ( ) National Heart, Lung and Blood [place]: http://www.nhlbi.nih.gov/health/infoctr/index.htm Blood Pressure < 140/90 Blood Pressure 96/68(2023 2:34 PM REVENUE OFFICER) Rere Vargas Note: Caring for Your High [...] Where can I go for more information? [place] Heart Association National Center: http://www.americanheart.org 1. In the top header, click ? Conditions? . 2. In the top header, click ? high blood pressure.? 3. For a printable blood pressure tracker, scroll toward the bottom of the page to Related Tools, and click ? HBP Trackers.? 9-765-NIX-USA- or ( ) National Heart, Lung and Blood [place]: http://www.nhlbi.nih.gov/health/infoctr/index.htm Blood Pressure < 140/90 Blood Pressure 96/68(2023 2:34 PM REVENUE OFFICER) Cassie Parks Note: Caring for Your High [...] Where can I go for more information? [place] Heart Association National Center: http://www.americanheart.org 1. In the top header, click ? Conditions? . 2. In the top header, click ? high blood pressure.? 3. For a printable blood pressure tracker, scroll toward the bottom of the page to Related Tools, and click ? HBP Trackers.? 0-053-GXG-USA-1 or ( ) National Heart, Lung and Blood [place]: http://www.nhlbi.nih.gov/health/infoctr/index.htm Exercise 5X per week (30 min per time) Exercise Rere Vargas Note: The [place] College of [employer] recommends all adults [...] how to manage your diabetes: ? ? [place] Diabetes Association: www.diabetes.org 1-662-NSJDYUMM ( ) ? ? [place] Diabetes Association-Support group line: www.professional.diabetes.org ? ? [place] Heart Association: www.heart.org or 3-158-URJ-USA-1 ( ) [employer] 2000 MyPlate: www.[employer].myplate.gov Have labs drawn Lifestyle Rere Vargas Note: [...] our office. documented as of this encounter Results * XR THORACIC SPINE 3VW (08/26/2022 3:59 PM CDT) Anatomical Region Laterality Modality Spine Radiographic Apolonia ging 08/26/2022 5:1 7 PM CDT Narrative 08/26/2022 5:18 PM CDT [...] MD on 08/26/2022 5:18 PM Evelin Blanco PATTERN PUNCHER-TRIPLE DRUM OPERATOR DIAGNOSTIC IMAG ING ORDERABLES * XR ABD [...] MD on 08/26/2022 4:10 PM Evelin Blanco PATTERN PUNCHER-TRIPLE DRUM OPERATOR DIAGNOSTIC IMAG ING ORDERABLES documented in this encounter Visit Diagnoses Diagnosis Acute midline thoracic back pain- Primary Other constipation Other constipation Acute midline thoracic back pain documented in this encounter Care Teams Medical Lab Technologist Relationship Specialty [place] [address] [place] [address] PCP - General Internal Medicine 01/26/22 [place] [address] [place] [address] PCP - [facility] 02/19/22 [place] [address] [facility] [address] [place] [address] Ophthalmology 04/06/16 [place] [address] [place] [address] Podiatry 01/24/21 documented as of this encounter
--- OUTSIDE RECORDS SUMMARY | 2024-04-03 00:59 | XMS_ITS | Encounter Summary ---
Author Organization [facility] Address [address] [place] [address] Care Team Providers Care Label Rewinder Name Role Phone Ricco Andrew MD Unavailable [phone] Fawn Ramon DPM Unavailable [phone] Chris Aden MD Primary Care Provider [phone] Chris Aden MD Unavailable Reason for Referral * Home Health Care (Routine) - Closed Specialty Diagnoses / Procedures Referred By Ethel oneil Referred To Contact Home Health Services Diagnoses Debility Generalized weakness Evelin Blanco APRN-CNP [address] [place] [address] [facility] Sched[address] [place] [address] Referral ID Status Reason Start Date Expiration Date V isits Requested Visits Authorized [id number] Closed Specialty Services Required 04/09/2022 04/09/2023 999 999 N CHAIN MARKER Reason for Visit * Reason Comments Transitional Care For Covid Encounter Details Date Type Department Care Team (Late st Contact Info) Description 04/09/2022 2:40 PM GREEN CHAIN MARKER Office Visit [facility] - Family Medicine [address] [place] [address] Evelin Blanco APRN-CNP [address] [address] Debility (Primary Dx); Generalized weakness; Type 2 diabetes mellitus with diabetic neuropathy, without long-term current use of insulin (HCC); Alzheimer's dementia without behavioral disturbance (HCC); Stage 3b chronic kidney disease (HCC); Hypothyroidism, adult; History of COVID-19 Social History Tobacco Use Types Packs/Day Years Used Date Smoking Tobacco: Never Smokeless Tobacco: Former Chew Quit: 01/02/2021 Tobacco [...] Sign Reading Time Taken Comments Blood Pressure 94/62 04/09/2022 2:48 PM GREEN CHAIN MARKER Pulse 89 04/09/2022 2:48 PM GREEN CHAIN MARKER Temperature 36.4 ??C (97.6 ??F) 04/09/2022 2:48 PM CS T Respiratory Rate 18 04/09/2022 2:48 PM GREEN CHAIN MARKER Oxygen Saturation 96% 04/09/2022 2:48 PM GREEN CHAIN MARKER Inhaled Oxygen Concentration - - Weight 69.1 kg (152 lb 6.4 oz) 04/09/2022 2:48 P M GREEN CHAIN MARKER Height 170.2 cm (5' 7.01) 04/09/2022 2:48 PM CS T Body Mass Index 23.86 04/09/2022 2:48 PM GREEN CHAIN MARKER documented in this encounter Patient Instructions * Patient Instructions* Evelin Blanco APRN-CNP - 04/09/2022 3:23 PM GREEN CHAIN MARKER Expect a call from home care. I will also send a copy to [facility] if I can get contact information. Try the miralax. Use the nebulizer only if needed. N CHAIN MARKER documented in this encounter Progress Notes * Evelin Blanco, NIKITA - 04/09/2022 3:11 PM CST SUBJECTIVE: Mk Sanches is a 86 year old male here for: Chief Complaint Patient presents with ??? Transitional Care For Covid Past Medical History: Diagnosis Date ??? Benign hypertension with chronic kidney disease 02/05/2016 BP controlled off rx. resolved ??? Chronic renal failure ??? Dementia (CMS/HCC) ??? Dermatitis ??? DM (diabetes mellitus) (CMS/HCC) ??? HTN (hypertension) ??? Hx of rheumatic fever ??? Hypothyroid ??? Seasonal allergies ??? Trigger finger HPI: Pt was in [facility] in [place] with Covid on 03-20-2023 and returned home on 03-25-2022. Didnot do well per daughter, gave him rx, supportive care. On 03-25-2022 he went to [facility] in [place], [place] for Rehab and was in isolation. Had PT and OT. He did get paxlovid starting 12-23-2022 and finished it up. Came home on 04-03-2022. We do not have any records to review. I did review labs from 03-03-2023 with pt and daughter that were under media tab. Home care has not started yet, waiting for us to okay the visits. Pt is eating and drinking. Last bowel movement, they do not know has not had one since he has returned home. No pain in abdomen. Special Instructions: I attest that I or another qualified licensed provider saw Mk Sanches 90 days prior to or 30 days post admission and this face to face encounter meets the necessary Home Health requirements. The face to face encounter occurred on 04-09-2022. The encounter with the patient was in whole, or in part, for the following medical condition, whichis the primary reason for home health care. Debilitiy, usteady gait. I certify that, based on my findings, the following services are medically necessary skilled home health services: Strengthening Exercises. Further, I certify that my clinical findings support this patient's homebound status (i.e. absencesfrom home require considerable and taxing effort, are for health treatment, or for attendance at uatsdin events; absences from home for nonmedical reasons are infrequent or are of relatively short duration). The clinical findings that support the need for home care and homebound status are due to illness and the patient has a condition such that leaving his/her home is medically contraindicated. ??There exists a normal inability to leave home and leaving home requires a considerable and taxing effort including functional limitations including generalized weakness. 12 visits I spoke with Jessica at [facility] and faxed order to them, received confirmation of receipt, putting up for scanning. Review of systems negative except as noted [...] 3 mL by mouth 3 times daily ??? DIONICIO ASPIRIN REGIMEN PO Take 81 mg by mouth once daily ??? budesonide (Pulmicort) 0.25 MG/2ML nebulizer suspension Inhale 2 mL by mouth 2 times daily ??? glipiZIDE (Glucotrol) 5 MG tablet [...] tablet by mouth once daily 90 tablet 0 ??? memantine (Namenda) 5 MG tablet TAKE [...] Septra Ds [Sulfamethoxazole W-Trimethoprim] Rash OBJECTIVE: Vitals: 04/09/22 1448 BP: 94/62 Pulse: 89 Resp: 18 Temp: 97.6 ??F (36.4 ??C) SpO2: 96% Weight: 69.1 kg (152 lb 6.4 oz) Height: 1.702 m (5' 7.01) Body mass index is 23.86 kg/m??. General appearance - alert, well appearing, and in no distress Psych - alert and oriented to person, place, and time, normal affect ENT -Eyes: conjunctiva clear, no drainage. Ears: tm right pearly nassar, positive light reflex, landmarks present; tm left pearly nassar, positive light reflex, landmarks present. Neck - trachea midline, no thyromegaly, supple, [...] nondistended, no masses or hepatosplenomegaly Extremities - Unsteady gait, full range of motion, no clubbing nor cyanosis. Skin - warm, dry, no rashes in visible areas. Neuro - PERRLA, CN ll through Xll intact. . ASSESSMENT Encounter Diagnoses Name Primary? Debility Yes ??? Generalized weakness ??? Type 2 diabetes mellitus with diabetic neuropathy, without long-term current use of insulin (CMS/HCC) ??? Alzheimer's dementia without behavioral disturbance (CMS/HCC) ??? Stage 3b chronic kidney disease (CMS/HCC) ??? Hypothyroidism, adult ??? History of COVID-19 PLAN: Orders Placed This Encounter ??? AMB REFERRAL TO HOME HEALTH CARE Referral Priority: Routine Referral Type: Home Health Care Referral Reason: Specialty Services Required Requested Specialty: Home Health Services Number of Visits Requested: 999 ??? polyethylene glycol 3350 (Miralax) 17 GM/SCOOP powder Si capful dissolved in 4-8 oz water or juice daily Dispense: 527 g Refill: 4 Can use the nebulizer if you hear wheezing. Further recommendations pending the above results and patient's clinical course. Follow-up visit 05-26-2022 The patient indicates understanding of these issues and agrees with the plan. N CHAIN MARKER documented in this encounter Plan of Treatment Upcoming Encounters Date Type Department Care Team (Late st Contact Info) Description 04/07/2024 10:00 AM GREEN CHAIN MARKER Office Visit [facility] [id number] [place] [address] [place] [id number] Evelin Blanco APRN-CNP [id number] [place] [id number] 06/06/2024 2:00 PM CDT Office Visit [facility] [id number] [place] [address] [place] [address] [phone] Scheduled Referrals Name Type Priority Associated Diagnoses Orde r Schedule AMB REFERRAL TO HOME HEALTH CARE Outpatient Referral Routine Debility Generalized weakness Ordered: 04/09/2022 documented as of this encounter Goals Goal Patient Goal Type Associated Problems Recent Progress Patient-Stated? Author Blood Pressure < 140/90 Blood Pressure 96/68(2023 2:34 PM GREEN CHAIN MARKER) Rere Vargas Note: Caring for Your High [...] Where can I go for more information? [place] Heart Association National Center: http://www.americanheart.org 1. In the top header, click ? Conditions? . 2. In the top header, click ? high blood pressure.? 3. For a printable blood pressure tracker, scroll toward the bottom of the page to Related Tools, and click ? HBP Trackers.? 7-645-VFW-USA-1 or ( ) National Heart, Lung and Blood [place]: http://www.nhlbi.nih.gov/health/infoctr/index.htm Blood Pressure < 140/90 Blood Pressure 96/68(2023 2:34 PM GREEN CHAIN MARKER) Rere Vargas Note: Caring for Your High [...] Where can I go for more information? [place] Heart Association National Center: http://www.americanheart.org 1. In the top header, click ? Conditions? . 2. In the top header, click ? high blood pressure.? 3. For a printable blood pressure tracker, scroll toward the bottom of the page to Related Tools, and click ? HBP Trackers.? 0-122-XUK-USA-1 or ( ) National Heart, Lung and Blood [place]: http://www.nhlbi.nih.gov/health/infoctr/index.htm Blood Pressure < 140/90 Blood Pressure 96/68(2023 2:34 PM GREEN CHAIN MARKER) Cassie Parks Note: Caring for Your High [...] Where can I go for more information? [place] Heart Association National Center: http://www.americanheart.org 1. In the top header, click ? Conditions? . 2. In the top header, click ? high blood pressure.? 3. For a printable blood pressure tracker, scroll toward the bottom of the page to Related Tools, and click ? HBP Trackers.? 8-866-WRE-USA-1 or ( ) National Heart, Lung and Blood [place]: http://www.nhlbi.nih.gov/health/infoctr/index.htm Exercise 5X per week (30 min per time) Exercise Rere Vargas Note: The [place] College [employer] recommends all adults [...] how to manage your diabetes: ? ? [place] Diabetes Association: www.diabetes.org 1-984-XFPIQILZ ( ) ? ? [place] Diabetes Association-Support group line: www.professional.diabetes.org ? ? [place] Heart Association: www.heart.org or 0-014-HOR-USA-1 ( ) [employer] MyPlate: www.[employer] Developmentmyplate.gov Have labs drawn Lifestyle Rere Vargas Note: [...] as of this encounter Visit Diagnoses Diagnosis Debility- Primary Debility, unspecified Generalized weakness Other malaise and fatigue Type 2 diabetes mellitus with diabetic neuropathy, without long-term current use of insulin (HCC) Alzheimer's dementia without behavioral disturbance (HCC) Alzheimer's disease Stage 3b chronic kidney disease (HCC) Hypothyroidism, adult Other specified acquired hypothyroidism History of COVID-19 documented in this encounter Care Teams Label Rewinder Relationship Specialty [place] [address] [place] [address] PCP - General Internal Medicine 01/26/22 [place] [address] [place] [phone] PCP - [facility] 02/19/22 [place] [address] [facility] [address] [place] [address] Ophthalmology 04/06/16 [place] Ram[place] [address] [place], [place] [id number] Podiatry 01/24/21 documented as of this encounter
--- OUTSIDE RECORDS SUMMARY | 2024-04-03 00:59 | XMS_ITS | Encounter Summary ---
Author Organization [facility] Address [address] [facility] [place] [address] Care Team Providers Care Quality Assurance Inspector Name Role Phone Ricco Andrew MD Unavailable [phone] Fawn Ramon DPKae Unavailable [phone] Chris Aden MD Primary Care Provider [phone] Reason for Visit * Reason Onset Date Comments MEDICATION REFILL 02/16/2022 Encounter Details Date Type Department Care Team (Late st Contact Info) Description 02/16/2022 Refill [facility] - Family Medicine [address] [place] [address] Chris Aden MD [address] [place] [address] MEDICATION REFILL Social History Tobacco Use Types Packs/Day Years [...] st Contact Info) Description 04/07/2024 10:00 AM VEST FINISHER Office Visit [facility] [address] [facility] [address] [place], [place] [phone] Evelin Blanco APRN-CNP [address] [address] 06/06/2024 2:00 PM CDT Office Visit [facility] [address] [facility] [address] [place], [place] [phone] [place] [address] [address] documented as of this encounter Goals Goal Patient Goal Type Associated Problems Recent Progress Patient-Stated? Author Blood Pressure < 140/90 Blood Pressure 96/68(2023 2:34 PM VEST FINISHER) Rere Vargas Note: Caring for Your High [...] Where can I go for more information? [place] Heart Association National Center: http://www.americanheart.org 1. In the top header, click ? Conditions? . 2. In the top header, click ? high blood pressure.? 3. For a printable blood pressure tracker, scroll toward the bottom of the page to Related Tools, and click ? HBP Trackers.? 9-211-ONJ-USA-1 or ( ) National Heart, Lung and Blood [place]: http://www.nhlbi.nih.gov/health/infoctr/index.htm Blood Pressure < 140/90 Blood Pressure 96/68(2023 2:34 PM VEST FINISHER) Rere Vargas Note: Caring for Your High [...] Where can I go for more information? [place] Heart Association National Center: http://www.americanheart.org 1. In the top header, click ? Conditions? . 2. In the top header, click ? high blood pressure.? 3. For a printable blood pressure tracker, scroll toward the bottom of the page to Related Tools, and click ? HBP Trackers.? 6-112-TIN-USA-1 or ( ) National Heart, Lung and Blood [place]: http://www.nhlbi.nih.gov/health/infoctr/index.htm Blood Pressure < 140/90 Blood Pressure 96/68(2023 2:34 PM VEST FINISHER) Cassie Parks Note: Caring for Your High [...] Where can I go for more information? [place] Heart Association National Center: http://www.americanheart.org 1. In the top header, click ? Conditions? . 2. In the top header, click ? high blood pressure.? 3. For a printable blood pressure tracker, scroll toward the bottom of the page to Related Tools, and click ? HBP Trackers.? 6-927-GET-USA-1 or ( ) National Heart, Lung and Blood [place]: http://www.nhlbi.nih.gov/health/infoctr/index.htm Exercise 5X per week (30 min per time) Exercise Rere Vargas Note: The [place] College of Sports Medicine recommends all adults [...] how to manage your diabetes: ? ? [place] Diabetes Association: www.diabetes.org 3-721-RFEIWCSP ( ) ? ? [place] Diabetes Association-Support group line: www.professional.diabetes.org ? ? [place] Heart Association: www.heart.org or 9-377-TAW-USA-1 ( ) Organizer MyPlate: www.Kaldooramyplate.gov Have labs drawn Lifestyle No Rere Kaufman [...] on filedocumented in this encounter Care Teams Quality Assurance Inspector Relationship Specialty [place] [address] [place] [address] PCP - General Internal Medicine 01/26/22 [place] [address] [address] Ophthalmology 04/06/16 Fawn Ramon DPM [address] [place] [address] Podiatry 01/24/21 documented as of this encounter
--- OUTSIDE RECORDS SUMMARY | 2024-04-03 00:59 | XMS_ITS | Encounter Summary ---
Author Organization [facility] Address [address] [facility] [place] [address] Care Team Providers Care Mainspring Fabrication Supervisor Name Role Phone Ricco Andrew MD Unavailable [phone] Fawn Ramon DPM Unavailable [phone] Chris Aden MD Primary Care Provider Chris Aden MD Unavailable Reason for Visit * Reason Onset Date Comments Results 08/26/2022 Encounter Details Date Type Department Care Team (Late st Contact Info) Description 08/26/2022 Telephone [facility] - Family Medicine [address] [facility] [address] [place] [address] Evelin Blanco, JOSETTE-HOME CARE NURSE [address] [facility] [address] [place] [address] Results Social History Tobacco Use Types Packs/Day Years [...] In the last 10 days, have alex u been in contact with someone who was confirmed or suspected to have Coronavirus/COVID-19? No / Unsure 08/26/2022 2:21 PM CDT documented as of this encounter Miscellaneous Notes * Telephone Encounter - Evelin Blanco APRN-CNP - 08/26/2022 4:26 PM CDT Good news, no obstruction. There is an increased amount of stool, constipation. 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 Calling pt so theyknow no obstruction and can try to clean out with laxatives. Spoke with daughter. documented in this encounter Plan of Treatment Upcoming Encounters Date Type Department Care Team (Late st Contact Info) Description 04/07/2024 10:00 AM LEI SELLER Office Visit [address] [address] Evelin Blanco APRN-CNP [phone] [place] [phone] 06/06/2024 2:00 PM CDT Office Visit [address] [address] Chris Aden MD [address] [place] [phone] documented as of this encounter Goals Goal Patient Goal Type Associated Problems Recent Progress Patient-Stated? Author Blood Pressure < 140/90 Blood Pressure 96/68(2023 2:34 PM LEI SELLER) Rere Vargas Note: Caring for Your High [...] Where can I go for more information? [place] Heart Association National Center: http://www.americanheart.org 1. In the top header, click ? Conditions? . 2. In the top header, click ? high blood pressure.? 3. For a printable blood pressure tracker, scroll toward the bottom of the page to Related Tools, and click ? HBP Trackers.? 9-462-PPC-USA-1 or ( ) National Heart, Lung and Blood [place]: http://www.nhlbi.nih.gov/health/infoctr/index.htm Blood Pressure < 140/90 Blood Pressure 96/68(2023 2:34 PM LEI SELLER) Rere Vargas Note: Caring for Your High [...] Where can I go for more information? [place] Heart Association National Center: http://www.americanheart.org 1. In the top header, click ? Conditions? . 2. In the top header, click ? high blood pressure.? 3. For a printable blood pressure tracker, scroll toward the bottom of the page to Related Tools, and click ? HBP Trackers.? 5-405-OWC-USA-1 or ( ) National Heart, Lung and Blood [place]: http://www.nhlbi.nih.gov/health/infoctr/index.htm Blood Pressure < 140/90 Blood Pressure 96/68(2023 2:34 PM LEI SELLER) Cassie Parks Note: Caring for Your High [...] Where can I go for more information? [place] Heart Association National Center: http://www.americanheart.org 1. In the top header, click ? Conditions? . 2. In the top header, click ? high blood pressure.? 3. For a printable blood pressure tracker, scroll toward the bottom of the page to Related Tools, and click ? HBP Trackers.? 9-086-LVB-USA-1 or ( ) National Heart, Lung and Blood [place]: http://www.nhlbi.nih.gov/health/infoctr/index.htm Exercise 5X per week (30 min per time) Exercise Rere Vargas Note: The [place] College of Sports Medicine recommends all adults [...] how to manage your diabetes: ? ? [place] Diabetes Association: www.diabetes.org 7-359-UEQPNCYN ( ) ? ? [place] Diabetes Association-Support group line: www.professional.diabetes.org ? ? [place] Heart Association: www.heart.org or 6-517-GAW-USA-1 ( ) My [employer] MyPlate: www.Protective Systemsmyplate.gov Have labs drawn Lifestyle Rere Vargas Note: [...] on filedocumented in this encounter Care Teams Mainspring Fabrication Supervisor Relationship Specialty [place] [address] [facility] [address] PCP - General Internal Medicine 01/26/22 [place] [address] [place] [phone] PCP - Attributed-[facility] 02/19/22 [place] [address] [address] [facility] [address] [place] [address] Ophthalmology 04/06/16 Fawn Ramon DPM [address] [place] [address] Podiatry 01/24/21 documented as of this encounter
--- OUTSIDE RECORDS SUMMARY | 2024-04-03 00:59 | XMS_ITS | Encounter Summary ---
Author Organization [facility] Address [address] [facility] [place] [address] Care Team Providers Care Executive Assistant To General Counsel Name Role Phone Ricco Andrew MD Unavailable [phone] Fawn Ramon DPM Unavailable [phone] Chris Aden MD Primary Care Provider [phone] Chris Aden MD Unavailable Reason for Visit * Reason Onset Date Comments Home Health 04/07/2022 Encounter Details Date Type Department Care Team (Late st Contact Info) Description 04/07/2022 Telephone [facility] - Family Medicine [id number] [place] [address] Chris [place] MD [id number] [place] [phone] Home Health Social History Tobacco Use Types Packs/Day Years [...] Telephone Encounter - Juany Sommers MA - 04/07/2022 4:35 PM CST I have schedule patient with Mayi for face to face appt. 04/09/22. L RECREATIONAL FACILITIES MANAGER * Telephone Encounter - Freya Dennis MA - 04/07/2022 8:19 AM CST Terrance FOSTER would like to know will PCP follow pt for home care? L RECREATIONAL FACILITIES MANAGER documented in this encounter Plan of Treatment Upcoming Encounters Date Type Department Care Team (Late st Contact Info) Description 04/07/2024 10:00 AM HOTEL RECREATIONAL FACILITIES MANAGER Office Visit [facility] [phone] [place] [address] Evelin Blanco APRN-EDUCATIONAL ASSISTANT TEACHER [address] [address] 06/06/2024 2:00 PM CDT Office Visit [facility] [phone] [place] [phone] [place] [address] [phone] documented as of this encounter Goals Goal Patient Goal Type Associated Problems Recent Progress Patient-Stated? Author Blood Pressure < 140/90 Blood Pressure 96/68(2023 2:34 PM HOTEL RECREATIONAL FACILITIES MANAGER) Rere Vargas Note: Caring for Your [...] Where can I go for more information? [place] Heart Association National Center: http://www.americanheart.org 1. In the top header, click ? Conditions? . 2. In the top header, click ? high blood pressure.? 3. For a printable blood pressure tracker, scroll toward the bottom of the page to Related Tools, and click ? HBP Trackers.? 2-541-ZIO-USA-1 or ( ) National Heart, Lung and Blood [place]: http://www.nhlbi.nih.gov/health/infoctr/index.htm Blood Pressure < 140/90 Blood Pressure 96/68(2023 2:34 PM HOTEL RECREATIONAL FACILITIES MANAGER) Rere Vargas Note: Caring for Your [...] Where can I go for more information? [place] Heart Association National Center: http://www.americanheart.org 1. In the top header, click ? Conditions? . 2. In the top header, click ? high blood pressure.? 3. For a printable blood pressure tracker, scroll toward the bottom of the page to Related Tools, and click ? HBP Trackers.? 9-944-IHS-USA-1 or ( ) National Heart, Lung and Blood [place]: http://www.nhlbi.nih.gov/health/infoctr/index.htm Blood Pressure < 140/90 Blood Pressure 96/68(2023 2:34 PM HOTEL RECREATIONAL FACILITIES MANAGER) Cassie Parks Note: Caring for Your [...] Where can I go for more information? [place] Heart Association National Center: http://www.americanheart.org 1. In the top header, click ? Conditions? . 2. In the top header, click ? high blood pressure.? 3. For a printable blood pressure tracker, scroll toward the bottom of the page to Related Tools, and click ? HBP Trackers.? 2-637-HZC-USA-1 or ( ) National Heart, Lung and Blood [place]: http://www.nhlbi.nih.gov/health/infoctr/index.htm Exercise 5X per week (30 min per time) Exercise Rere Vargas Note: The [place] College of Sports Medicine recommends all adults [...] how to manage your diabetes: ? ? [place] Diabetes Association: www.diabetes.org 1-510-FEIQAGBH ( ) ? ? [place] Diabetes Association-Support group line: www.professional.diabetes.org ? ? [place] Heart Association: www.heart.org or 1-151-LHJ-USA-1 ( ) [employer] MyPlate: www.Red Rock Holdingsmyplate.gov Have labs drawn Lifestyle Rere Vargas Note: [...] filedocumented in this encounter Care Teams Executive Assistant To General Counsel Relationship Specialty [place] [address] [place] [phone] PCP - General Internal Medicine 01/26/22 [place] [address] [place] [address] PCP - Attributed-[facility] [place] 02/19/22 [place] [address] [address] [facility] [address] [place] [address] Ophthalmology 04/06/16 Fawn Ramon DPM [address] [facility] [address] [place] [address] Podiatry 01/24/21 documented as of this encounter
--- OUTSIDE RECORDS SUMMARY | 2024-04-03 00:59 | XMS_ITS | Encounter Summary ---
Author Organization [facility] Address [address] [place] [address] Care Team Providers Care Tent Worker Name Role Phone Ricco Andrew MD Unavailable [phone] Fawn Ramon DPKae Unavailable [phone] Chris Aden MD Primary Care Provider [phone] Reason for Visit * Reason Onset Date Comments MEDICATION REFILL 02/11/2022 Encounter Details Date Type Department Care Team (Late st Contact Info) Description 02/11/2022 Refill [facility] - Family Medicine [address] [place] [address] Chris Aden MD [address] [place] [address] MEDICATION REFILL Social History Tobacco Use [...] encounter Miscellaneous Notes * Telephone Encounter - Emily Feldman - 02/11/2022 2:04 PM CST Mk Sanches or the patients pharmacy called/LVM/sent a fax requesting a refill on the medication(s)listed below: Requested Prescriptions Pending Prescriptions Disp Refills ??? loratadine (Claritin) 10 MG tablet 90 tablet 0 Sig: Take 1 (one) tablet by mouth once daily Allergies Allergen Reactions ??? Ibuprofen Other HE HAS CKD AND SHOULD NOT TAKE NSAID'S ??? Septra Ds [Sulfamethoxazole W-Trimethoprim] Rash Last Office Visit: 01/26/2022 Next Scheduled Office Visit: 05/26/2022 Recommended F/U Date by provider: 06/26/2022 Recommended F/U Reason: 5 month follow up Last refill was on:01/27/2021 RICT WIRE CHIEF documented in this encounter Plan of Treatment Upcoming Encounters Date Type Department Care Team (Late st Contact Info) Description 04/07/2024 10:00 AM DISTRICT WIRE CHIEF Office Visit [facility] [phone] [place] [address] Evelin Blanco, CONCRETE PUMP OPERATOR HELPER-TIME PIECE REPAIRER [id number] [place] [address] 06/06/2024 2:00 PM CDT Office Visit [facility] [address] [place] [address] Chris Aden MD [address] [place] [address] [phone] documented as of this encounter Goals Goal Patient Goal Type Associated Problems Recent Progress Patient-Stated? Author Blood Pressure < 140/90 Blood Pressure 96/68(2023 2:34 PM DISTRICT WIRE CHIEF) Rere Vargas Note: Caring for Your High [...] Where can I go for more information? [place] Heart Association National Center: http://www.americanheart.org 1. In the top header, click ? Conditions? . 2. In the top header, click ? high blood pressure.? 3. For a printable blood pressure tracker, scroll toward the bottom of the page to Related Tools, and click ? HBP Trackers.? 9-971-JBJ-USA-1 or ( ) National Heart, Lung and Blood [place]: http://www.nhlbi.nih.gov/health/infoctr/index.htm Blood Pressure < 140/90 Blood Pressure 96/68(2023 2:34 PM DISTRICT WIRE CHIEF) Rere Vargas Note: Caring for Your High [...] Where can I go for more information? [place] Heart Association National Center: http://www.americanheart.org 1. In the top header, click ? Conditions? . 2. In the top header, click ? high blood pressure.? 3. For a printable blood pressure tracker, scroll toward the bottom of the page to Related Tools, and click ? HBP Trackers.? 5-211-ELM-USA-1 or ( ) National Heart, Lung and Blood [place]: http://www.nhlbi.nih.gov/health/infoctr/index.htm Blood Pressure < 140/90 Blood Pressure 96/68(2023 2:34 PM DISTRICT WIRE CHIEF) Cassie Parks Note: Caring for Your High [...] Where can I go for more information? [place] Heart Association National Center: http://www.americanheart.org 1. In the top header, click ? Conditions? . 2. In the top header, click ? high blood pressure.? 3. For a printable blood pressure tracker, scroll toward the bottom of the page to Related Tools, and click ? HBP Trackers.? 5-475-ELO-USA-1 or ( ) National Heart, Lung and Blood [place]: http://www.nhlbi.nih.gov/health/infoctr/index.htm Exercise 5X per week (30 min per time) Exercise No Rere Kaufman Note: The [place] College of Sports Medicine recommends all adults [...] how to manage your diabetes: ? ? [place] Diabetes Association: www.diabetes.org 4-337-GTEPNBGO ( ) ? ? [place] Diabetes Association-Support group line: www.professional.diabetes.org ? ? [place] Heart Association: www.heart.org or 4-586-MRS-USA-1 ( ) Specialty [employer] MyPlate: www.Paymomyplate.gov Have labs drawn Lifestyle Rere Vargas Note: [...] on filedocumented in this encounter Care Teams Tent Worker Relationship Specialty [place] [address] [place] [phone] PCP - General Internal Medicine 01/26/22 [place] [address] [address] [facility] [address] [place] [address] Ophthalmology 04/06/16 Fawn Ramon DPM [address] [place] [address] Podiatry 01/24/21 documented as of this encounter
--- OUTSIDE RECORDS SUMMARY | 2024-04-03 01:00 | XMS_ITS | Encounter Summary ---
Author Organization [facility] Address [address] [place] [address] Care Team Providers Care Skiff Operator Name Role Phone Ricco Andrew MD Unavailable [phone] Rosana Solo MD Unavailable [phone] Fawn Ramon [facility] Unavailable [phone] Reason for Visit * Reason Comments Refill Request Encounter Details Date Type Department Care Team (Late st Contact Info) Description 01/25/2021 Refill [facility] - Family Medicine [address] [place] [address] Rosana Solo MD [facility] [address] [place] [address] Refill Request Social History Tobacco Use Types Packs/Day Years Used Date Smoking Tobacco: Never Smokeless Tobacco: Current Chew Alcohol Use Standard Drinks/Week Comments No 0 (1 standard drink = 0.6 oz pur e alcohol) Sex and Gender Information Value Date Recorded Sex Assigned at Male 01/22/2023 1:45 PM CDT Gender Identity Male 01/22/2023 1:45 PM CDT Sexual Orientation Straight 01/22/2023 1: 45 PM CDT COVID-19 Exposure Response Date Recorded In the last month, have you been in contact with someone who was confirmed or suspected to have Coronavirus / COVID-19? No / Unsure 01/21/2021 12:02 PM CDT documented as of this encounter Miscellaneous Notes * Telephone Encounter - Alison Lowe - 01/27/2021 4:31 PM CST Last OV: 09/02/2020 Next OV: 03/04/2021 Last refill: 02/27/2020, 03/26/2020 Requested Prescriptions Pending Prescriptions Disp Refills ??? memantine (NAMENDA) 5 MG tablet [Pharmacy Med Name: MEMANTINE HCL 5 MG TABLET] 180 tablet 3 Sig: TAKE 1 TABLETS BY MOUTH 2 TIMES DAILY ??? loratadine (CLARITIN) 10 MG tablet [Pharmacy Med Name: LORATADINE 10 MG TABLET] 90 tablet 3 Sig: TAKE 1 TABLET BY MOUTH EVERY DAY FLUIDS HANDLER documented in this encounter Plan of Treatment Upcoming Encounters Date Type Department Care Team (Late st Contact Info) Description 04/07/2024 10:00 AM BULK FLUIDS HANDLER Office Visit [facility] [address] [place] [phone] Evelin Blanco, STAFF RADIOGRAPHER-HAND COMPOSITOR [id number] [place] [address] 06/06/2024 2:00 PM CDT Office Visit [facility] [address] [place] [phone] Chris Aden [place] [phone] [place] [phone] documented as of this encounter Goals Goal Patient Goal Type Associated Problems Recent Progress Patient-Stated? Author Blood Pressure < 140/90 Blood Pressure 96/68(2023 2:34 PM BULK FLUIDS HANDLER) Rere Vargas Note: Caring for Your High [...] Where can I go for more information? [place] Heart Association National Center: http://www.americanheart.org 1. In the top header, click ? Conditions? . 2. In the top header, click ? high blood pressure.? 3. For a printable blood pressure tracker, scroll toward the bottom of the page to Related Tools, and click ? HBP Trackers.? 3-314-ULW-USA-1 or ( ) National Heart, Lung and Blood [place]: http://www.nhlbi.nih.gov/health/infoctr/index.htm Blood Pressure < 140/90 Blood Pressure 96/68(2023 2:34 PM BULK FLUIDS HANDLER) Rere Vargas Note: Caring for Your High [...] Where can I go for more information? [place] Heart Association National Center: http://www.americanheart.org 1. In the top header, click ? Conditions? . 2. In the top header, click ? high blood pressure.? 3. For a printable blood pressure tracker, scroll toward the bottom of the page to Related Tools, and click ? HBP Trackers.? 5-295-FUT-USA-1 or ( ) National Heart, Lung and Blood [place]: http://www.nhlbi.nih.gov/health/infoctr/index.htm Blood Pressure < 140/90 Blood Pressure 96/68(2023 2:34 PM BULK FLUIDS HANDLER) Cassie Parks Note: Caring for Your High [...] Where can I go for more information? [place] Heart Association National Center: http://www.americanheart.org 1. In the top header, click ? Conditions? . 2. In the top header, click ? high blood pressure.? 3. For a printable blood pressure tracker, scroll toward the bottom of the page to Related Tools, and click ? HBP Trackers.? 4-336-YZP-USA-1 or ( ) National Heart, Lung and Blood [place]: http://www.nhlbi.nih.gov/health/infoctr/index.htm Exercise 5X per week (30 min per time) Exercise No Rere Kaufman Note: The [place] College of Sports Medicine recommends all adults [...] how to manage your diabetes: ? ? [place] Diabetes Association: www.diabetes.org 6-443-TBGMVXUU ( ) ? ? [place] Diabetes Association-Support group line: www.professional.diabetes.org ? ? [place] Heart Association: www.heart.org or 2-527-OTA-USA-1 ( ) [employer] MyPlate: www.Posemyplate.gov Have labs drawn Lifestyle No Rere Kaufman [...] on filedocumented in this encounter Care Teams Skiff Operator Relationship Specialty Start Date End Date Rosana Solo MD [address] [facility] [address] [place] [address] PCP - Attributed-[facility] 02/19/19 [place] [address] [facility] [address] [place] [address] Ophthalmology 04/06/16 Fawn Ramon [place]PM [address] [place] [address] Podiatry 01/24/21 documented as of this encounter
--- OUTSIDE RECORDS SUMMARY | 2024-04-03 01:00 | XMS_ITS | Encounter Summary ---
Author Organization [facility] Address [address] [facility] [place] [address] Care Team Providers Care Retail Operations Manager Name Role Phone Ricco Andrew MD Unavailable Rosana Solo MD Unavailable [phone] Reason for Visit * Reason Onset Date Comments Question 05/10/2020 Encounter Details Date Type Department Care Team (Late st Contact Info) Description 05/10/2020 Telephone [facility] Medical [facility] - Family Medicine [address] [place] [address] Rosana Solo MD [facility] [phone] Question Social History Tobacco Use Types Packs/Day [...] encounter Miscellaneous Notes * Telephone Encounter - Swapna Albert MA - 05/10/2020 1:16 PM CST Pt's daughter is calling requesting to speak with Colette. Pt's daughter would rather discuss information with Colette. ATE BRANCH EXCHANGE SERVICE ADVISOR documented in this encounter Plan of Treatment Upcoming Encounters Date Type Department Care Team (Late st Contact Info) Description 04/07/2024 10:00 AM PRIVATE BRANCH EXCHANGE SERVICE ADVISOR Office Visit [facility] [address] [facility] [address] [place], [place] [phone] Evelin Blanco APRN-CNP [address] [facility] [address] [place] [address] 06/06/2024 2:00 PM CDT Office Visit [facility] [address] [facility] [address] [place] [address] [place] [address] [facility] [address] [place] [address] documented as of this encounter Goals Goal Patient Goal Type Associated Problems Recent Progress Patient-Stated? Author Blood Pressure < 140/90 Blood Pressure 96/68(2023 2:34 PM PRIVATE BRANCH EXCHANGE SERVICE ADVISOR) eRre Vargas Note: Caring for Your High Blood [...] Where can I go for more information? [place] Heart Association National Center: http://www.americanheart.org 1. In the top header, click ? Conditions? . 2. In the top header, click ? high blood pressure.? 3. For a printable blood pressure tracker, scroll toward the bottom of the page to Related Tools, and click ? HBP Trackers.? 7-250-SFF-USA-1 or ( ) National Heart, Lung and Blood [place]: http://www.nhlbi.nih.gov/health/infoctr/index.htm Blood Pressure < 140/90 Blood Pressure 96/68(2023 2:34 PM PRIVATE BRANCH EXCHANGE SERVICE ADVISOR) Rere Vargas Note: Caring for Your High [...] Where can I go for more information? [place] Heart Association National Center: http://www.americanheart.org 1. In the top header, click ? Conditions? . 2. In the top header, click ? high blood pressure.? 3. For a printable blood pressure tracker, scroll toward the bottom of the page to Related Tools, and click ? HBP Trackers.? 7-042-QKR-USA- or ( ) National Heart, Lung and Blood [place]: http://www.nhlbi.nih.gov/health/infoctr/index.htm Blood Pressure < 140/90 Blood Pressure 96/68(2023 2:34 PM PRIVATE BRANCH EXCHANGE SERVICE ADVISOR) Cassie Parks Note: Caring for Your High [...] Where can I go for more information? [place] Heart Association National Center: http://www.americanheart.org 1. In the top header, click ? Conditions? . 2. In the top header, click ? high blood pressure.? 3. For a printable blood pressure tracker, scroll toward the bottom of the page to Related Tools, and click ? HBP Trackers.? 9-842-GWC-USA- or ( ) National Heart, Lung and Blood [place]: http://www.nhlbi.nih.gov/health/infoctr/index.htm Exercise 5X per week (30 min per time) Exercise No Rere Kaufman Note: The [place] College of Sports Medicine recommends all adults [...] how to manage your diabetes: ? ? [place] Diabetes Association: www.diabetes.org 2-873-JKXOFRDK ( ) ? ? [place] Diabetes Association-Support group line: www.professional.diabetes.org ? ? [place] Heart Association: www.heart.org or 5-171-XGA-USA-1 ( ) [place] MyPlate: www.Vakastmyplate.gov Have labs drawn Lifestyle Rere Vargas Note: [...] on filedocumented in this encounter Care Teams Retail Operations Manager Relationship Specialty Start Date End Date Rosana Solo MD [address] [facility] [address] [place] [address] PCP - Attributed-[facility] 02/19/19 [place] [address] [facility] [address] [place] [address] Ophthalmology 04/06/16 documented as of this encounter
--- OUTSIDE RECORDS SUMMARY | 2024-04-03 01:00 | XMS_ITS | Encounter Summary ---
Author Organization [facility] Address [address] [facility] [place] [address] Care Team Providers Care Airplane Gas Tank Liner Assembler Name Role Phone Ricco Andrew MD Unavailable [phone] Rosana Solo MD Unavailable [phone] Reason for Visit * Reason Comments Refill Request Encounter Details Date Type Department Care Team (Late st Contact Info) Description 01/03/2021 Refill [facility] Medical [facility] - Family Medicine [address] [place], [place] [id number] Rosana Solo MD [address] [place] [address] Refill Request Social History Tobacco Use [...] encounter Miscellaneous Notes * Telephone Encounter - Mio Lowesri - 01/03/2021 9:09 AM CDT Last OV: 09/02/2020 Next OV: 03/04/2021 Last refill: 11/17/2019 Requested Prescriptions Pending Prescriptions Disp Refills ??? levothyroxine (SYNTHROID) 75 MCG tablet [Pharmacy Med Name: LEVOTHYROXINE 75 MCG TABLET] 90 tablet 3 Sig: TAKE 1 TABLET BY MOUTH EVERY DAY IN THE MORNING documented in this encounter Plan of Treatment Upcoming Encounters Date Type Department Care Team (Late st Contact Info) Description 04/07/2024 10:00 AM REMEDIAL TEACHER Office Visit [facility] [id number] [place] [address] [address] [place] [address] Evelin Blanco APRN-DENIS [address] [facility] [address] [place] [address] 06/06/2024 2:00 PM CDT Office Visit [facility] [id number] [place] [address] [address] [place], [place] [phone] Chris Aden MD [id number] [place] [phone] documented as of this encounter Goals Goal Patient Goal Type Associated Problems Recent Progress Patient-Stated? Author Blood Pressure < 140/90 Blood Pressure 96/68(2023 2:34 PM REMEDIAL TEACHER) Rere Vargas Note: Caring for Your [...] Where can I go for more information? [place] Heart Association National Center: http://www.americanheart.org 1. In the top header, click ? Conditions? . 2. In the top header, click ? high blood pressure.? 3. For a printable blood pressure tracker, scroll toward the bottom of the page to Related Tools, and click ? HBP Trackers.? 6-149-LVT-USA-1 or ( ) National Heart, Lung and Blood [place]: http://www.nhlbi.nih.gov/health/infoctr/index.htm Blood Pressure < 140/90 Blood Pressure 96/68(2023 2:34 PM REMEDIAL TEACHER) Rere Vargas Note: Caring for Your [...] Where can I go for more information? [place] Heart Association National Center: http://www.americanheart.org 1. In the top header, click ? Conditions? . 2. In the top header, click ? high blood pressure.? 3. For a printable blood pressure tracker, scroll toward the bottom of the page to Related Tools, and click ? HBP Trackers.? 6-482-YSA-USA-1 or ( ) National Heart, Lung and Blood [place]: http://www.nhlbi.nih.gov/health/infoctr/index.htm Blood Pressure < 140/90 Blood Pressure 96/68(2023 2:34 PM REMEDIAL TEACHER) Cassie Parks Note: Caring for Your [...] Where can I go for more information? [place] Heart Association National Center: http://www.americanheart.org 1. In the top header, click ? Conditions? . 2. In the top header, click ? high blood pressure.? 3. For a printable blood pressure tracker, scroll toward the bottom of the page to Related Tools, and click ? HBP Trackers.? 3-126-RUP-USA-1 or ( ) National Heart, Lung and Blood [place]: http://www.nhlbi.nih.gov/health/infoctr/index.htm Exercise 5X per week (30 min per time) Exercise Rere Vargas Note: The [place] College of Sports Medicine recommends all adults [...] how to manage your diabetes: ? ? [place] Diabetes Association: www.diabetes.org 8-187-IOYYOIQB ( ) ? ? [place] Diabetes Association-Support group line: www.professional.diabetes.org ? ? [place] Heart Association: www.heart.org or 2-441-PRO-USA-1 ( ) Züm XR MyPlate: www.Thin Profile Technologiesmyplate.gov Have labs drawn Lifestyle Rere Vargas [...] on filedocumented in this encounter Care Teams Airplane Gas Tank Liner Assembler Relationship Specialty Start Date End Date Rosana Solo MD [address] [facility] [address] [place] [address] PCP - Attributed-[facility] 02/19/19 [place] [address] [facility] [address] [place] [address] Ophthalmology 04/06/16 documented as of this encounter
--- OUTSIDE RECORDS SUMMARY | 2024-04-03 01:00 | XMS_ITS | Encounter Summary ---
Author Organization [facility] Address [address] [facility] [place] [address] Care Team Providers Care Converter Skimmer Name Role Phone Ricco Andrew MD Unavailable [phone] Rosana Solo MD Unavailable [phone] Reason for Visit * Reason Comments Refill Request Encounter Details Date Type Department Care Team (Late st Contact Info) Description 03/26/2020 Refill [facility] Medical [facility] - Family Medicine [address] [place], [place] [phone] Rosana Solo MD [address] [place] [phone] Refill Request Social History Tobacco Use [...] have Coronavirus / COVID-19? No / Unsure 03/11/2020 2:12 PM SCREEN PRINT OPERATOR documented as of this encounter Miscellaneous Notes * Telephone Encounter - Alison Lowe - 03/26/2020 3:54 PM CST Last OV: 03/04/2020 Next OV: 09/02/2020 Last refill: 07/24/2019 Requested Prescriptions Pending Prescriptions Disp Refills ??? loratadine (CLARITIN) 10 MG tablet [Pharmacy Med Name: LORATADINE 10 MG TABLET] 90 tablet 3 Sig: TAKE 1 TABLET BY MOUTH EVERY DAY EN PRINT OPERATOR documented in this encounter Plan of Treatment Upcoming Encounters Date Type Department Care Team (Late st Contact Info) Description 04/07/2024 10:00 AM SCREEN PRINT OPERATOR Office Visit [facility] [address] [facility] [address] [place] [address] Evelin Blanco APRN-CNP [address] [facility] [address] [place] [address] 06/06/2024 2:00 PM CDT Office Visit [facility] [address] [facility] [address] [place] [address] [place] [address] [facility] [address] [place] [address] documented as of this encounter Goals Goal Patient Goal Type Associated Problems Recent Progress Patient-Stated? Author Blood Pressure < 140/90 Blood Pressure 96/68(2023 2:34 PM SCREEN PRINT OPERATOR) Rere Vargas Note: Caring for Your [...] Where can I go for more information? [place] Heart Association National Center: http://www.americanheart.org 1. In the top header, click ? Conditions? . 2. In the top header, click ? high blood pressure.? 3. For a printable blood pressure tracker, scroll toward the bottom of the page to Related Tools, and click ? HBP Trackers.? 6-779-GJM-USA-1 or ( ) National Heart, Lung and Blood [place]: http://www.nhlbi.nih.gov/health/infoctr/index.htm Blood Pressure < 140/90 Blood Pressure 96/68(2023 2:34 PM SCREEN PRINT OPERATOR) Rere Vargas Note: Caring for Your [...] Where can I go for more information? [place] Heart Association National Center: http://www.americanheart.org 1. In the top header, click ? Conditions? . 2. In the top header, click ? high blood pressure.? 3. For a printable blood pressure tracker, scroll toward the bottom of the page to Related Tools, and click ? HBP Trackers.? 5-994-LFH-USA-1 or ( ) National Heart, Lung and Blood [place]: http://www.nhlbi.nih.gov/health/infoctr/index.htm Blood Pressure < 140/90 Blood Pressure 96/68(2023 2:34 PM SCREEN PRINT OPERATOR) Cassie Parks Note: Caring for Your [...] Where can I go for more information? [place] Heart Association National Center: http://www.americanheart.org 1. In the top header, click ? Conditions? . 2. In the top header, click ? high blood pressure.? 3. For a printable blood pressure tracker, scroll toward the bottom of the page to Related Tools, and click ? HBP Trackers.? 9-163-GIV-USA-1 or ( ) National Heart, Lung and Blood [place]: http://www.nhlbi.nih.gov/health/infoctr/index.htm Exercise 5X per week (30 min per time) Exercise No Rere Kaufman Note: The [place] College of Sports Medicine recommends all adults [...] how to manage your diabetes: ? ? [place] Diabetes Association: www.diabetes.org 7-301-XPWRGPCY ( ) ? ? [place] Diabetes Association-Support group line: www.professional.diabetes.org ? ? [place] Heart Association: www.heart.org or 0-455-KNM-USA-1 ( ) [employer] MyPlate: www.Bacula Systemsmyplate.gov Have labs drawn Lifestyle No Rere Kaufman [...] on filedocumented in this encounter Care Teams Converter Skimmer Relationship Specialty Start Date End Date Rosana Solo MD [address] [place] [address] [place] [address] PCP - Attributed-[facility] 02/19/19 [place] [address] [place] [address] [place] [address] Ophthalmology 04/06/16 documented as of this encounter
--- OUTSIDE RECORDS SUMMARY | 2024-04-03 01:00 | XMS_ITS | Encounter Summary ---
Author Organization [facility] Address [address] [facility] [place] [address] Care Team Providers Care Consumer Safety Officer Name Role Phone Ricco Andrew MD Unavailable Rosana Solo MD Unavailable [phone] Encounter Details Date Type Department Care Team (Latest Contact Info) Description 03/11/2020 Travel Social History Tobacco Use Types Packs/Day [...] COVID-19? No / Unsure 03/11/2020 2:12 PM SUPERVISOR MARBLE documented as of this encounter Plan of Treatment Upcoming Encounters Date Type Department Care Team (Late st Contact Info) Description 04/07/2024 10:00 AM SUPERVISOR MARBLE Office Visit [facility] - Family Medicine [address] [facility] [address] [place], [place] [phone] Evelin Blanco, DRUM DYEING MACHINE OPERATOR-EQUIPMENT SCHEDULER [address] [facility] [address] [place] [address] 06/06/2024 2:00 PM CDT Office Visit [facility] Family Medicine [address] [facility] [address] [place] [address] [place] [address] [facility] [address] [place] [address] [place] [phone] documented as of this encounter Goals Goal Patient Goal Type Associated Problems Recent Progress Patient-Stated? Author Blood Pressure < 140/90 Blood Pressure 96/68(2023 2:34 PM SUPERVISOR MARBLE) Rere Vargas Note: Caring for Your High [...] Where can I go for more information? [place] Heart Association National Center: http://www.americanheart.org 1. In the top header, click ? Conditions? . 2. In the top header, click ? high blood pressure.? 3. For a printable blood pressure tracker, scroll toward the bottom of the page to Related Tools, and click ? HBP Trackers.? 0-282-XJU-USA- or ( ) National Heart, Lung and Blood [place]: http://www.nhlbi.nih.gov/health/infoctr/index.htm Blood Pressure < 140/90 Blood Pressure 96/68(2023 2:34 PM SUPERVISOR MARBLE) No Rere Kaufman Note: Caring for Your [...] Where can I go for more information? [place] Heart Association National Center: http://www.americanheart.org 1. In the top header, click ? Conditions? . 2. In the top header, click ? high blood pressure.? 3. For a printable blood pressure tracker, scroll toward the bottom of the page to Related Tools, and click ? HBP Trackers.? 2-865-YZU-USA-1 or ( ) National Heart, Lung and Blood [place]: http://www.nhlbi.nih.gov/health/infoctr/index.htm Blood Pressure < 140/90 Blood Pressure 96/68(2023 2:34 PM SUPERVISOR MARBLE) No Cassie Marie Note: Caring for Your [...] Where can I go for more information? [place] Heart Association National Center: http://www.americanheart.org 1. In the top header, click ? Conditions? . 2. In the top header, click ? high blood pressure.? 3. For a printable blood pressure tracker, scroll toward the bottom of the page to Related Tools, and click ? HBP Trackers.? 5-179-XFL-USA-1 or ( ) National Heart, Lung and Blood [place]: http://www.nhlbi.nih.gov/health/infoctr/index.htm Exercise 5X per week (30 min per time) Exercise No Rere Kaufman Note: The [place] College of Sports Medicine recommends all adults [...] how to manage your diabetes: ? ? [place] Diabetes Association: www.diabetes.org 5-112-KJPLNVDZ ( ) ? ? [place] Diabetes Association-Support group line: www.professional.diabetes.org ? ? [place] Heart Association: www.heart.org or 6-580-NEX-USA-1 ( ) [employer] MyPlate: www.[employer] Inc.myplate.gov Have labs drawn Lifestyle Rere Vargas [...] on filedocumented in this encounter Care Teams Consumer Safety Officer Relationship Specialty Start Date End Date Rosana Solo MD [address] [facility] [address] [place] [address] PCP - Attributed-[facility] 02/19/19 [place] [address] [facility] [address] [place] [address] Ophthalmology 04/06/16 documented as of this encounter
--- OUTSIDE RECORDS SUMMARY | 2024-04-03 01:00 | XMS_ITS | Encounter Summary ---
Author Organization [facility] Address [address] [facility] [place] [address] Care Team Providers Care Farm Management Agent Name Role Phone Ricco Andrew MD Unavailable Rosana Solo MD Unavailable [phone] Encounter Details Date Type Department Care Team (Latest Contact Info) Description 01/17/2021 Travel Social History Tobacco Use Types Packs/Day [...] have Coronavirus / COVID-19? No / Unsure 01/17/2021 10:41 AM CDT documented as of this encounter Plan of Treatment Upcoming Encounters Date Type Department Care Team (Late st Contact Info) Description 04/07/2024 10:00 AM SERVICE AND REPAIR SUPERVISOR Office Visit [facility] - Family Medicine [address] [facility] [address] [place] [address] Evelin Blanco, JOSETTE-DENIS [address] [facility] [address] [place] [address] 06/06/2024 2:00 PM CDT Office Visit [facility] [address] [facility] [address] [place] [address] [place] [address] [facility] [address] [place] [address] [place] [phone] documented as of this encounter Goals Goal Patient Goal Type Associated Problems Recent Progress Patient-Stated? Author Blood Pressure < 140/90 Blood Pressure 96/68(2023 2:34 PM SERVICE AND REPAIR SUPERVISOR) Rere Vargas Note: Caring for Your [...] Related Tools, and click ? HBP Trackers.? 6-743-ZSC-USA-1 or ( ) National Heart, Lung and Blood [place]: http://www.nhlbi.nih.gov/health/infoctr/index.htm Blood Pressure < 140/90 Blood Pressure 96/68(2023 2:34 PM SERVICE AND REPAIR SUPERVISOR) Rere Vargas Note: Caring for Your [...] Related Tools, and click ? HBP Trackers.? 0-256-MEB-USA-1 or ( ) National Heart, Lung and Blood [place]: http://www.nhlbi.nih.gov/health/infoctr/index.htm Blood Pressure < 140/90 Blood Pressure 96/68(2023 2:34 PM SERVICE AND REPAIR SUPERVISOR) No Cassie Marie Note: Caring for Your [...] Related Tools, and click ? HBP Trackers.? 5-351-MGQ-USA-1 or ( ) National Heart, Lung and Blood [place]: http://www.nhlbi.nih.gov/health/infoctr/index.htm Exercise 5X per week (30 min per time) Exercise No Rere Kaufman Note: The [place] College of Sports Medicine [...] diabetes: ? ? [place] Diabetes Association: www.diabetes.org 3-357-OZAZMUGF ( ) ? ? [place] Diabetes Association-Support group line: www.professional.diabetes.org ? ? [place] Heart Association: www.heart.org or 5-300-CHB-USA-1 ( ) [employer] MyPlate: www.Baiyaxuanmyplate.gov Have labs drawn Lifestyle Reer Vargas Note: Caring for Your Diabetes Routine [...] on filedocumented in this encounter Care Teams Farm Management Agent Relationship Specialty Start Date End Date Rosana Solo MD [address] [facility] [address] [place] [address] PCP - Attributed-[facility] 02/19/19 [place] [address] [facility] [address] [place] [address] Ophthalmology 04/06/16 documented as of this encounter
--- OUTSIDE RECORDS SUMMARY | 2024-04-03 01:00 | XMS_ITS | Encounter Summary ---
Author Organization [facility] Address [address] [place] [address] Care Team Providers Care Mineral Technologist Name Role Phone Ricco Andrew MD Unavailable Rosana Solo MD Unavailable [phone] Encounter Details Date Type Department Care Team (Latest Contact Info) Description 09/02/2020 Travel Social History Tobacco Use Types Packs/Day [...] have Coronavirus / COVID-19? No / Unsure 09/02/2020 4:06 PM CDT documented as of this encounter Plan of Treatment Upcoming Encounters Date Type Department Care Team (Late st Contact Info) Description 04/07/2024 10:00 AM ASSOCIATE PRODUCT INTEGRITY ENGINEER Office Visit [facility] - Family Medicine [address] [facility] [address] [place] [address] Evelin Blanco, JOSETTE-DENIS [address] [facility] [address] [place] [address] 06/06/2024 2:00 PM CDT Office Visit [facility] Family Medicine [address] [facility] [address] [place] [address] [place] [address] [place] [address] documented as of this encounter Goals Goal Patient Goal Type Associated Problems Recent Progress Patient-Stated? Author Blood Pressure < 140/90 Blood Pressure 96/68(2023 2:34 PM ASSOCIATE PRODUCT INTEGRITY ENGINEER) Rere Vargas Note: Caring for Your [...] Where can I go for more information? Indian Heart Association National Center: http://www.americanheart.org 1. In the top header, click ? Conditions? . 2. In the top header, click ? high blood pressure.? 3. For a printable blood pressure tracker, scroll toward the bottom of the page to Related Tools, and click ? HBP Trackers.? 2-090-JRW-USA-1 or ( ) National Heart, Lung and Blood [place]: http://www.nhlbi.nih.gov/health/infoctr/index.htm Blood Pressure < 140/90 Blood Pressure 96/68(2023 2:34 PM ASSOCIATE PRODUCT INTEGRITY ENGINEER) Rere Vargas Note: Caring for Your [...] Where can I go for more information? Indian Heart Association National Center: http://www.americanheart.org 1. In the top header, click ? Conditions? . 2. In the top header, click ? high blood pressure.? 3. For a printable blood pressure tracker, scroll toward the bottom of the page to Related Tools, and click ? HBP Trackers.? 2-659-BRC-USA-1 or ( ) National Heart, Lung and Blood [place]: http://www.nhlbi.nih.gov/health/infoctr/index.htm Blood Pressure < 140/90 Blood Pressure 96/68(2023 2:34 PM ASSOCIATE PRODUCT INTEGRITY ENGINEER) No Cassie Marie Note: Caring for Your [...] Where can I go for more information? Indian Heart Association National Center: http://www.americanheart.org 1. In the top header, click ? Conditions? . 2. In the top header, click ? high blood pressure.? 3. For a printable blood pressure tracker, scroll toward the bottom of the page to Related Tools, and click ? HBP Trackers.? 6-212-IQZ-USA-1 or ( ) National Heart, Lung and Blood [place]: http://www.nhlbi.nih.gov/health/infoctr/index.htm Exercise 5X per week (30 min per time) Exercise No Rere Kaufman Note: The Indian College of Sports Medicine recommends all adults [...] how to manage your diabetes: ? ? Indian Diabetes Association: www.diabetes.org 8-800-OYCCEDOI ( ) ? ? Indian Diabetes Association-Support group line: www.professional.diabetes.org ? ? Indian Heart Association: www.heart.org or 2-340-ZFN-USA-1 ( ) SmartPay [employer]ie[employer] MyPlate: www.DoubleDutchmyplate.gov Have labs drawn Lifestyle Rere Vargas Note: [...] on filedocumented in this encounter Care Teams Mineral Technologist Relationship Specialty Start Date End Date Rosana Solo MD [address] [facility] [address] [place] [address] PCP - Attributed-[facility] 02/19/19 [place] [address] [facility] [address] [place] [address] Ophthalmology 04/06/16 documented as of this encounter
--- OUTSIDE RECORDS SUMMARY | 2024-04-03 01:00 | XMS_ITS | Encounter Summary ---
Author Organization [facility] Address [address] [facility] [place] [address] Care Team Providers Care Slag Mixer Name Role Phone Ricco Andrew MD Unavailable [phone] Rosana Solo MD Unavailable [phone] Reason for Visit * Reason Comments Diabetic Foot Care Type 2 diabetes john itus with diabetic neuropathy, without long-term current use of insulin Encounter Details Date Type Department Care Team (Latest Contact Info) Description 09/02/2020 2:20 PM CDT Office Visit [facility] - Podiatry [id number] [place] [address] [address] [facility] [address] [address] Onychodystrophy (Primary Dx); Pain due to onychomycosis of toenail; Onycholysis; Type 2 diabetes mellitus with diabetic neuropathy, without long-term current use of insulin (HCC) Social History Tobacco Use Types Packs/Day [...] Sign Reading Time Taken Comments Blood Pressure 100/60 09/02/2020 2:46 PM CDT Pulse 84 09/02/2020 2:46 PM CDT Temperature - - Respiratory Rate - - Oxygen Saturation - - Inhaled Oxygen Concentration - - Weight 73.9 kg (163 lb) 09/02/2020 2:46 PM CDT Height 175.3 cm (5' 9) 09/02/2020 2:46 PM CDT Body Mass Index 24.07 09/02/2020 2:46 PM CDT documented in this encounter Patient Instructions * Patient Instructions* Fawn Ramon DPM - 09/02/2020 4:00 PM CDT Images from the original note were not included. Patient Education Foot Care for People with Diabetes PICTURE ENGRAVER: What you need to know about foot care: ?? Foot care helps protect your feet and prevent foot ulcers or sores. Long-term high blood sugar levels can damage the blood vessels and nerves in your legs and feet. This damage makes it hard to feel pressure, pain, temperature, and touch. You may not be able to feel a cut or sore, or shoes that are too tight. Foot care is needed to prevent serious problems, such as an infection or amputation. ?? Diabetes may cause your toes to become crooked or curved under. These changes may affect the wayyou walk and can lead to increased pressure on your foot. The pressure can decrease blood flow to your feet. Lack of blood flow increases your risk for a foot ulcer. Do not ignore small problems, such as dry skin or small wounds. These can become life-threatening over time without proper care. Call your care team provider if: ?? Your feet become numb, weak, or hard to move. ?? You have pus draining from a sore on your foot. ?? You have a wound on your foot that gets bigger, deeper, or does not heal. ?? You see blisters, cuts, scratches, calluses, or sores on your foot. ?? You have a fever, and your feet become red, warm, and swollen. ?? Your toenails become thick, curled, or yellow. ?? You find it hard to check your feet because your vision is poor. ?? You have questions or concerns about your condition or care. How to care for your feet: ?? Check your feet each day. Look at your whole foot, including the bottom, and between and under your toes. Check for wounds, corns, and calluses. Use a mirror to see the bottom of your feet. The skin on your feet may be shiny, tight, or darker than normal. Your feet may also be cold and pale. Feel your feet by running your hands along the tops, bottoms, sides, and between your toes. Redness, swelling, and warmth are signs of blood flow problems that can lead to a foot ulcer. Do not try to remove corns or calluses yourself. ?? Wash your feet each day with soap and warm water. Do not use hot water, because this can injure your foot. Dry your feet gently with a towel after you wash them. Dry between and under your toes. ?? Apply lotion or a moisturizer on your dry feet. Ask your care team provider what lotions are best to use. Do not put lotion or moisturizer between your toes. Moisture between your toes could lead to skin breakdown. ?? Cut your toenails correctly. File or cut your toenails straight across. Use a soft brush to clean around your toenails. If your toenails are very thick, you may need to have a care team provider or specialist cut them. ?? Protect your feet. Do not walk barefoot or wear your shoes without socks. Check your shoes for rocks or other objects that can hurt your feet. Wear cotton socks to help keep your feet dry. Wear socks without toe seams, or wear them with the seams inside out. Change your socks each day. Do not wear socks that are dirty or damp. ?? Wear shoes that fit well. Wear shoes that do not rub against any area of your feet. Your shoes should be ?? to ?? inch (1 to 2 centimeters) longer than your feet. Your shoes should also have extraspace around the widest part of your feet. Walking or athletic shoes with laces or straps that adjust are best. Ask your care team provider for help to choose shoes that fit you best. Ask him or her if you need to wear an insert, orthotic, or bandage on your feet. ?? Go to your follow-up visits. Your care team provider will do a foot exam at least once a year. You may need a foot exam more often if you have nerve damage, foot deformities, or ulcers. He will check for nerve damage and how well you can feel your feet. He will check your shoes to see if they fit well. ?? Do not smoke. Smoking can damage your blood vessels and put you at increased risk for foot ulcers. Ask your care team provider for information if you currently smoke and need help to quit. E-cigarettes or smokeless tobacco still contain nicotine. Talk to your care team provider before you use these products. Follow up with your diabetes care team provider or evaluation specialist as directed: You will need to have your feet checked at least once a year. You may need a foot exam more often if you have nerve damage, foot deformities, or ulcers. Write down your questions so you remember to ask them during your visits. ?? Copyright [employer] 2020 Information is for End User's use only and may not be sold, redistributed or otherwise used for commercial purposes. All illustrations and images included in CareNotes?? are the copyrighted property of [employer]. or [employer] The above information is an hospital aides and assistants teacher only. It is not intended as medical advice for individual conditions or treatments. Talk to your doctor, nurse or pharmacist before following any medical regimen to see if it is safe and effective for you. documented in this encounter Progress Notes * Fawn Ramon DPM - 09/02/2020 3:48 PM CDT 09/02/2020 Cc: 6month diabetic foot check up and painful toenails HPI: Ryder Cabello is a 85 year old male is here for a 6month diabetic foot check up. Pt reports of diabetes is being well controlled. Denies any changes of medical or surgical history since last ov. Relates of toenail pain with ambulation and shoegear. Denies injury. Relates of inablibilty to cut their nails due to the severity of thickness and length. Relates of trying to cut in the past with regular nail cutters but nails were to thick to cut. Pt states of concerns with was self treating due to having a hx of diabetes and being on anti-coag therapy. Pt relates of pain of 0-3/10 with shoe gear pressure. Pt has a hx of diabetes and neuropathy. Pt also relates of being compliant with getting and wearing the diabetic shoes and insert. Denies any ulcerations or lesions. PCP is Dr. Solo and last ov was 09/02/2020. Physical Exam: BP 100/60 Pulse 84 Ht 1.753 m (5' 9) Wt 73.9 kg (163 lb) BMI 24.07 kg/m2 Patient is alert and oriented x 3. cooperative and in no apparent distress. Ears: canals clear, tympanic membranes normal, hearing intact to voice Throat: no mucous membrane abnormalities Neck: range of motion is intact, no masses, thyroid not enlarged, no adenopathy Heart: regular rhythm Lungs: breath sounds normal and symmetric; no rales or wheezes Lower extremity exam No DP/PT Pulses Palpable bilateral YesQ8 Absent DP pulse bilateral Absent PT pulse bilateral YesAdvanced Trophic Changes (at least 3 of :) Yes Decreased/absent hair growth bilateral Yes Thickened Toenails bilateral Yes Discolor/Pigment changes bilateral Yes Thin/Shiny skin texture change bilateral No Rubor/redness of skin bilateral YesQ9 One of the above plus two of: No Claudication bilateral Yes Edema bilateral (+2) LE, ankles, and feet Yes Temp Changes bilateral Yes Paraesthesia bilateral No Cool bilateral No Burning bilateral No Cold bilateral Dermatological: Rash: neg Callouses: pinched calluses medial 1st MTPJ bilateral feet xerosis: pos Nails: Thickened, with brownish/yellow discoloration and subungal debris with incurvated medial andlateral borders in pincer deformity. Extreme brittleness also present bilateral nails 1-5. Nails extend pass the distal aspect of the digits by greater than 1cm in a muna horn configuration. Pos POP nails 1-5 bilat. No SOI. Skin texture: atrophic and transparent Pos atrophy of the plantar forefoot fat pad with prominent met heads bilateral feet. Neurological: Sensation intact to Semms-Duke monofilament all dermatomes : Neg Neg proprioception Vibratory sensation: Neg Musculoskeletal: Max location of tenderness: Pos POP of the digits 1-5 bilateral foot with toenail pressure, pos rigid contracture of the PIPJ of digits 2-5 bilateral Yes Q7 No Non-traumatic amputation of digits Non-dystrophic nails- none No dystrophic nails with presence of onychomycosis not qualified above Yes patient understands Medicare is unlikely to cover today's visit/procedure Yes NIDDM w/ neur changes/neruopathy Yes LOPS >5 areas bilateral WEIGHTBEARING EXAM: Patient observed standing: decreased medial arch with pos bunion and hammer toes 2-5 bilateral. Results for RYDER CABELLO ( ) as of 09/02/2020 15:48 Ref. Range 02/28/2019 16:22 08/30/2019 15:05 03/04/2020 14:24 Hemoglobin A1c Latest Ref Range: 4.2 - 5.6 % 7.2 (H) 7.8 (H) 7.9 (H) Estimated Average Glucose Latest Units: mg/dL 160 177 180 Assessment: Encounter Diagnoses Name Primary? Onychodystrophy Yes ??? Pain due to onychomycosis of toenail ??? Onycholysis ??? Type 2 diabetes mellitus with diabetic neuropathy, without long-term current use of insulin Treatment: Orders Placed This Encounter ??? [place] DEBRIDEMENT OF NAILS, 6 OR MORE - Went over last lab results with the pt. -Discussed with pt good diabetic foot care and importance of maintaining diabetic control to prevent future complications, information on diabetic foot care was given. - Manual and mechanical debridement of nails were performed to reduce 50% thickness and atleast 7mmin length, slant back was done on the borders. - Pt was informed of what to look for an infection such as redness, swelling, odor, drainage, pain etc and was instructed to call if there are any SOI or any changes that is concerning. - Pt will follow up yearly unless needed sooner. documented in this encounter Plan of Treatment Upcoming Encounters Date Type Department Care Team (Late st Contact Info) Description 04/07/2024 10:00 AM COMMERCIAL SALES SPECIALIST Office Visit [facility] [address] [facility] [address] [place] [address] Evelin Blanco APRN-CNP [address] [facility] [address] [place] [address] 06/06/2024 2:00 PM CDT Office Visit [facility] [address] [facility] [address] [place] [address] [place] [address] [facility] [address] [place] [address] documented as of this encounter Goals Goal Patient Goal Type Associated Problems Recent Progress Patient-Stated? Author Blood Pressure < 140/90 Blood Pressure 96/68(2023 2:34 PM COMMERCIAL SALES SPECIALIST) Rere Vargas Note: Caring for Your [...] Related Tools, and click ? HBP Trackers.? 1-173-AMA-USA- or ( ) National Heart, Lung and Blood [place]: http://www.nhlbi.nih.gov/health/infoctr/index.htm Blood Pressure < 140/90 Blood Pressure 96/68(2023 2:34 PM COMMERCIAL SALES SPECIALIST) Rere Vargas Note: Caring for Your [...] Related Tools, and click ? HBP Trackers.? 1-614-PPI-USA- or ( ) National Heart, Lung and Blood [place]: http://www.nhlbi.nih.gov/health/infoctr/index.htm Blood Pressure < 140/90 Blood Pressure 96/68(2023 2:34 PM COMMERCIAL SALES SPECIALIST) Cassie Parks Note: Caring for Your [...] Related Tools, and click ? HBP Trackers.? 8-883-IJG-USA-1 or ( ) National Heart, Lung and Blood [place]: http://www.nhlbi.nih.gov/health/infoctr/index.htm Exercise 5X per week (30 min [...] diabetes: ? ? [place] Diabetes Association: www.diabetes.org 1-705-XGHIJBLV ( ) ? ? [place] Diabetes Association-Support group line: www.professional.diabetes.org ? ? [place] Heart Association: www.heart.org or 4-036-KGE-USA-1 ( ) Rev MyPlate: www.Karma Platformmyplate.gov Have labs drawn Lifestyle Rere Vargas Note: [...] as of this encounter Visit Diagnoses Diagnosis Onychodystrophy- Primary Other specified disease of nail Pain due to onychomycosis of toenail Pain in limb Onycholysis Other specified disease of nail Type 2 diabetes mellitus with diabetic neuropathy, without long-term current use of insulin (HCC) documented in this encounter Care Teams Slag Mixer Relationship Specialty Start Date End Date Rosana Solo MD [address] [facility] [address] [place] [address] PCP - Attributed-[facility] 02/19/19 [place] [address] [facility] [address] [place] [address] Ophthalmology 04/06/16 documented as of this encounter
--- OUTSIDE RECORDS SUMMARY | 2024-04-03 01:00 | XMS_ITS | Encounter Summary ---
Author Organization [facility] Address [address] [place] [address] Care Team Providers Care Conveyor Feeder Name Role Phone Ricco Andrew MD Unavailable Rosana Solo MD Unavailable [phone] Encounter Details Date Type Department Care Team (Latest Contact Info) Description 03/28/2020 Travel Social History Tobacco Use Types Packs/Day [...] have Coronavirus / COVID-19? No / Unsure 03/28/2020 4:14 PM CRAP SHOOTER documented as of this encounter Plan of Treatment Upcoming Encounters Date Type Department Care Team (Late st Contact Info) Description 04/07/2024 10:00 AM CRAP SHOOTER Office Visit [facility] - Family Medicine [address] [facility] [address] [place] [address] Evelin Blanco, JOSETTE-DENIS [address] [facility] [address] [place] [address] 06/06/2024 2:00 PM CDT Office Visit [facility] Family Medicine [address] [place] [address] [place] [address] [facility] [address] [place] [address] documented as of this encounter Goals Goal Patient Goal Type Associated Problems Recent Progress Patient-Stated? Author Blood Pressure < 140/90 Blood Pressure 96/68(2023 2:34 PM CRAP SHOOTER) Rere Vargas Note: Caring for Your High [...] Related Tools, and click ? HBP Trackers.? 6-489-LTA-USA- or ( ) National Heart, Lung and Blood [place]: http://www.nhlbi.nih.gov/health/infoctr/index.htm Blood Pressure < 140/90 Blood Pressure 96/68(2023 2:34 PM CRAP SHOOTER) No Rere Kaufman Note: Caring for Your [...] Related Tools, and click ? HBP Trackers.? 6-367-DCE-USA-1 or ( ) National Heart, Lung and Blood [place]: http://www.nhlbi.nih.gov/health/infoctr/index.htm Blood Pressure < 140/90 Blood Pressure 96/68(2023 2:34 PM CRAP SHOOTER) No Cassie Marie Note: Caring for Your [...] Related Tools, and click ? HBP Trackers.? 1-227-DJY-USA-1 or ( ) National Heart, Lung and Blood [place]: http://www.nhlbi.nih.gov/health/infoctr/index.htm Exercise 5X per week (30 min [...] diabetes: ? ? [place] Diabetes Association: www.diabetes.org 4-750-AYABAMKK ( ) ? ? [place] Diabetes Association-Support group line: www.professional.diabetes.org ? ? [place] Heart Association: www.heart.org or 1-148-MRP-USA-1 ( ) [employer] Ath[employer] MyPlate: www.iProcuremyplate.gov Have labs drawn Lifestyle Rere Vargas Note: [...] on filedocumented in this encounter Care Teams Conveyor Feeder Relationship Specialty Start Date End Date Rosana Solo MD [address] [facility] [address] [place] [address] PCP - Attributed-[facility] 02/19/19 [place] [address] [facility] [address] [place] [address] Ophthalmology 04/06/16 documented as of this encounter
--- OUTSIDE RECORDS SUMMARY | 2024-04-03 01:00 | XMS_ITS | Encounter Summary ---
Author Organization [facility] Address [address] [facility] [place] [address] Care Team Providers Care Body Corporate Manager Name Role Phone Ricco Andrew MD Unavailable [phone] Rosana Solo MD Unavailable [phone] Encounter Details Date Type Department Care Team (Late st Contact Info) Description 06/12/2020 Orders Only [facility] - COVID Vax [address] [place] [address] Toño Ramos MD [address] [address] Need for vaccination Social History Tobacco Use Types Packs/Day Years [...] Encounters Date Type Department Care Team (Late Contact Info) Description 04/07/2024 10:00 AM CHAIN MENDER Office Visit [facility] - Family Medicine [address] [facility] [address] [place] [address] Evelin Blanco, CONSUMER LOAN MANAGER-DEHYDROGENATION OPERATOR [address] [facility] [address] [place] [address] 06/06/2024 2:00 PM CDT Office Visit [facility] Family Medicine [address] [facility] [address] [place], [place] [id number] [place] [address] [facility] [address] [place] [address] documented as of this encounter Goals Goal Patient Goal Type Associated Problems Recent Progress Patient-Stated? Author Blood Pressure < 140/90 Blood Pressure 96/68(2023 2:34 PM CHAIN MENDER) Rere Vargas Note: Caring for Your High [...] Related Tools, and click ? HBP Trackers.? 0-141-MIT-USA- or ( ) National Heart, Lung and Blood [place]: http://www.nhlbi.nih.gov/health/infoctr/index.htm Blood Pressure < 140/90 Blood Pressure 96/68(2023 2:34 PM CHAIN MENDER) Rere Vargas Note: Caring for Your High [...] Related Tools, and click ? HBP Trackers.? 6-709-OIR-USA- or ( ) National Heart, Lung and Blood [place]: http://www.nhlbi.nih.gov/health/infoctr/index.htm Blood Pressure < 140/90 Blood Pressure 96/68(2023 2:34 PM CHAIN MENDER) Cassie Parks Note: Caring for Your High [...] Related Tools, and click ? HBP Trackers.? 3-934-OPL-USA-1 or ( ) National Heart, Lung and Blood [place]: http://www.nhlbi.nih.gov/health/infoctr/index.htm Exercise 5X per week (30 min [...] diabetes: ? ? [place] Diabetes Association: www.diabetes.org 9-287-JCGZKVJJ ( ) ? ? [place] Diabetes Association-Support group line: www.professional.diabetes.org ? ? [place] Heart Association: www.heart.org or 0-490-QZP-USA-1 ( ) Dotted Block MyPlate: www.K[employer].myplate.gov Have labs drawn Lifestyle Rere Vargas [...] this encounter Visit Diagnoses Diagnosis Need for vaccination Need for prophylactic vaccination and inoculation against unspecified single disease documented in this encounter Care Teams Body Corporate Manager Relationship Specialty Start Date End Date Rosana Solo MD [address] [facility] [facility] [address] [place] [phone] PCP - Attributed-[facility] 02/19/19 [place] [address] [facility] [address] [place] [address] Ophthalmology 04/06/16 documented as of this encounter
--- OUTSIDE RECORDS SUMMARY | 2024-04-03 01:00 | XMS_ITS | Encounter Summary ---
Author Organization [facility] Address [address] [facility] [place] [address] Care Team Providers Care Fur Designer Name Role Phone Ricco Andrew MD Unavailable Rosana oSlo MD Unavailable [phone] Reason for Visit * Reason Onset Date Comments MEDICATION REFILL 03/06/2020 Encounter Details Date Type Department Care Team (Late Contact Info) Description 03/06/[address] [facility] Family [facility] [id number] [place] [address] Clarice [facility] [address] [address] MEDICATION REFILL Social History Tobacco Use Types [...] or suspected to have Coronavirus / COVID-19? Unable to assess 03/04/2020 2:14 PM EXECUTIVE CASINO HOST documented as of this encounter Plan of Treatment Upcoming Encounters Date Type Department Care Team (Late Contact Info) Description 04/07/2024 10:00 AM EXECUTIVE CASINO HOST Office Visit [facility] [address] [facility] [address] [place] [address] Evelin Blanco APRN-CNP [address] [facility] [address] [place] [address] 06/06/2024 2:00 PM CDT Office Visit [facility] [address] [facility] [address] [place] [address] [place] [address] [facility] [address] [place] [address] documented as of this encounter Goals Goal Patient Goal Type Associated Problems Recent Progress Patient-Stated? Author Blood Pressure < 140/90 Blood Pressure 96/68(2023 2:34 PM EXECUTIVE CASINO HOST) Rere Vargas Note: Caring for Your High [...] Where can I go for more information? [place] Heart Association National Center: http://www.americanheart.org 1. In the top header, click ? Conditions? . 2. In the top header, click ? high blood pressure.? 3. For a printable blood pressure tracker, scroll toward the bottom of the page to Related Tools, and click ? HBP Trackers.? 1-957-IWR-USA-1 or ( ) National Heart, Lung and Blood [place]: http://www.nhlbi.nih.gov/health/infoctr/index.htm Blood Pressure < 140/90 Blood Pressure 96/68(2023 2:34 PM EXECUTIVE CASINO HOST) Rere Vargas Note: Caring for Your High [...] Where can I go for more information? [place] Heart Association National Center: http://www.americanheart.org 1. In the top header, click ? Conditions? . 2. In the top header, click ? high blood pressure.? 3. For a printable blood pressure tracker, scroll toward the bottom of the page to Related Tools, and click ? HBP Trackers.? 5-971-RRC-USA-1 or ( ) National Heart, Lung and Blood [place]: http://www.nhlbi.nih.gov/health/infoctr/index.htm Blood Pressure < 140/90 Blood Pressure 96/68(2023 2:34 PM EXECUTIVE CASINO HOST) Cassie Parks Note: Caring for Your High [...] Where can I go for more information? [place] Heart Association National Center: http://www.americanheart.org 1. In the top header, click ? Conditions? . 2. In the top header, click ? high blood pressure.? 3. For a printable blood pressure tracker, scroll toward the bottom of the page to Related Tools, and click ? HBP Trackers.? 9-485-YMX-USA-1 or ( ) National Heart, Lung and Blood [place]: http://www.nhlbi.nih.gov/health/infoctr/index.htm Exercise 5X per week (30 min per time) Exercise Rere Vargas Note: The [place] College of Sports Medicine recommends all adults [...] how to manage your diabetes: ? ? [place] Diabetes Association: www.diabetes.org 9-433-ZLJGXNHV ( ) ? ? [place] Diabetes Association-Support group line: www.professional.diabetes.org ? ? [place] Heart Association: www.heart.org or 6-381-GWJ-USA-1 ( ) [employer] MyPlate: www.Nephrology Care Groupmyplate.gov Have labs drawn Lifestyle No Rere Kaufman [...] on filedocumented in this encounter Care Teams Fur Designer Relationship Specialty Start Date End Date Rosana Solo MD [address] [place] [address] PCP - Attributed-[facility] 02/19/19 [place] [address] [place] [phone] Ophthalmology 04/06/16 documented as of this encounter
--- OUTSIDE RECORDS SUMMARY | 2024-04-03 01:00 | XMS_ITS | Encounter Summary ---
Author Organization [facility] Address [address] [facility] [place] [address] Care Team Providers Care Foreign Diplomat Name Role Phone Ricco Andrew MD Unavailable [phone] Rosana Solo MD Unavailable [phone] Fawn Ramon Kae Unavailable [phone] Reason for Visit * Reason Onset Date Comments Therapy 07/10/2021 Encounter Details Date Type Department Care Team (Late st Contact Info) Description 07/10/2021 Telephone [facility] Medical [facility] - Family Medicine [address] [place] [address] Rosana Solo MD [address] [address] Therapy Social History Tobacco Use Types Packs/Day Years Used Date Smoking Tobacco: Never Smokeless Tobacco: Former Chew Quit: 01/02/2021 Alcohol Use Standard Drinks/Week Comments No 0 (1 standard drink = 0.6 oz pur e alcohol) PHQ-2 Answer Date Recorded PHQ2 TOTAL SCORE 0 03/04/2021 Sex and Gender Information Value Date Recorded Sex Assigned at Male 01/22/2023 1:45 PM CDT Gender Identity Male 01/22/2023 1:45 PM CDT Sexual Orientation Straight 01/22/2023 1: 45 PM CDT documented as of this encounter Miscellaneous Notes * Telephone Encounter - Rosana Solo MD - 07/10/2021 5:04 PM CDT Forms found after office and signed. Will approved HH Pt was admitted at [facility] for Sepsis due to acute cholecystitis. Looks like probably underwent CCK, but we only received the original H&P and labs * Telephone Encounter - Sofia Wilson - 07/10/2021 11:44 AM CDT Patient need doctor to sign referral for home health care. Patient stated that the fax was send today documented in this encounter Plan of Treatment Upcoming Encounters Date Type Department Care Team (Late st Contact Info) Description 04/07/2024 10:00 AM PARK ACTIVITIES COORDINATOR Office Visit [facility] [id number] [place] [phone] Evelin Blanco APRN-REPAIRER AND CHECKER [address] [address] 06/06/2024 2:00 PM CDT Office Visit [facility] [id number] [place] [address] [id number] [place] [address] [phone] documented as of this encounter Goals Goal Patient Goal Type Associated Problems Recent Progress Patient-Stated? Author Blood Pressure < 140/90 Blood Pressure 96/68(2023 2:34 PM PARK ACTIVITIES COORDINATOR) Rere Vargas Note: Caring for Your High [...] Related Tools, and click ? HBP Trackers.? 0-867-VDV-USA-1 or ( ) National Heart, Lung and Blood [place]: http://www.nhlbi.nih.gov/health/infoctr/index.htm Blood Pressure < 140/90 Blood Pressure 96/68(2023 2:34 PM PARK ACTIVITIES COORDINATOR) Rere Vargas Note: Caring for Your High [...] Related Tools, and click ? HBP Trackers.? 0-155-LZP-USA-1 or ( ) National Heart, Lung and Blood [place]: http://www.nhlbi.nih.gov/health/infoctr/index.htm Blood Pressure < 140/90 Blood Pressure 96/68(2023 2:34 PM PARK ACTIVITIES COORDINATOR) Cassie Parks Note: Caring for Your High [...] Related Tools, and click ? HBP Trackers.? 9-061-LZI-USA-1 or ( ) National Heart, Lung and Blood [place]: http://www.nhlbi.nih.gov/health/infoctr/index.htm Exercise 5X per week (30 min per time) Exercise Rere Vargas Note: The Indian College of Sports Medicine [...] diabetes: ? ? Indian Diabetes Association: www.diabetes.org 2-543-MYKXIPBQ ( ) ? ? Indian Diabetes Association-Support group line: www.professional.diabetes.org ? ? Indian Heart Association: www.heart.org or 1-335-YEI-USA-1 ( ) [employer] MyPlate: www.choosemyplate.gov Have labs drawn Lifestyle Rere [...] on filedocumented in this encounter Care Teams Foreign Diplomat Relationship Specialty Start Date End Date Rosana Solo MD [address] [phone] PCP - Attributed-[facility] 02/19/19 [place] [address] [place] [address] Ophthalmology 04/06/16 Fawn Ramon DPM [address] [place] [address] Podiatry 01/24/21 documented as of this encounter
--- OUTSIDE RECORDS SUMMARY | 2024-04-03 01:00 | XMS_ITS | Encounter Summary ---
Author Organization [facility] Address [address] [facility] [place] [address] Care Team Providers Care Fur Repairer Name Role Phone Ricco Andrew MD Unavailable [phone] Rosana Solo MD Unavailable [phone] Reason for Visit * Reason Comments Hospital Follow-up Encounter Details Date Type Department Care Team (Late st Contact Info) Description 01/20/2021 1:45 PM CDT Office Visit [facility] - Family Medicine [id number] [place] [address] [place] [address] Evelin Blanco, [facility] [address] [facility] [address] [place] [address] Type 2 diabetes mellitus with stage 3a chronic kidney disease, without long-term current use of insulin (HCC) (Primary Dx); Local skin infection; Cellulitis of right lower extremity; Type 2 diabetes mellitus with diabetic neuropathy, without long-term current use of insulin (HCC); Urinary tract infection without hematuria, site unspecified; Pneumonia due to infectious organism, unspecified laterality, unspecified part of lung Social History Tobacco Use Types Packs/Day Years [...] Sign Reading Time Taken Comments Blood Pressure 120/64 01/20/2021 2:07 PM CDT Pulse 56 01/20/2021 2:07 PM CDT Temperature 36.6 ??C (97.8 ??F) 01/20/2021 2:07 PM CD T Respiratory Rate 18 01/20/2021 2:07 PM CDT Oxygen Saturation 96% 01/20/2021 2:07 PM CDT Inhaled Oxygen Concentration - - Weight 74.3 kg (163 lb 12.8 oz) 01/20/2021 2:07 PM CDT Height 175.3 cm (5' 9) 01/20/2021 2:07 PM CDT Body Mass Index 24.19 01/20/2021 2:07 PM CDT documented in this encounter Progress Notes * Evelin Blanco, JOSETTE-CONTINUOUS IMPROVEMENT FACILITATOR - 01/20/2021 2:13 PM CDT SUBJECTIVE: Mk Sanches is a 85 year old male here for: Chief Complaint Patient presents with ??? Hospital Follow-up Past Medical History: Diagnosis Date ??? Benign hypertension with chronic kidney disease 02/05/2016 BP controlled off rx. resolved ??? Chronic renal failure ??? Dementia ??? Dermatitis ??? DM (diabetes mellitus) ??? HTN (hypertension) ??? Hx of rheumatic fever ??? Hypothyroid ??? Seasonal allergies ??? Trigger finger HPI: Pt was in [facility] in [place] 01-14-2021 and returned home on 01-16-2021 and blood sugars were elevated. They have been running 176 before dinner to as high as 240. Was 256 one day before 256. His fasting blood sugars have been 143 on the lowest. Pt is still on augmentin, has 2 more to take. Pt was taking antibiotics for pneumonia and UTI. No cough today. Pt is feeling better. Sat he picked off his toenail and now the foot is now swollen and red. Review of systems negative except as noted in the HPI Family and social history on file and reviewed. Current Outpatient Medications on File Prior to Visit Medication Sig Dispense Refill ??? Acetaminophen (TYLENOL ARTHRITIS PAIN PO) Take 500 mg by mouth Two times a week ??? albuterol HFA (PROVENTIL; VENTOLIN; PROAIR) 108 (90 Base) MCG/ACT inhaler ??? amoxicillin-clavulanate (AUGMENTIN) 875-125 MG tablet ??? DIONICIO ASPIRIN REGIMEN PO Take 81 mg by mouth once daily ??? ketoconazole (NIZORAL) 2 % shampoo Apply [...] touch mini test strips) 100 strip 2 No current facility-administered medications on file prior to visit. Allergies Allergen Reactions ??? Ibuprofen Other HE HAS CKD AND SHOULD NOT TAKE NSAID'S Social History Tobacco Use ??? Smoking status: Never Smoker ??? Smokeless tobacco: Current User Types: Chew Substance Use Topics ??? Alcohol use: No . OBJECTIVE: Vitals: 01/20/21 1407 BP: 120/64 Pulse: 56 Resp: 18 Temp: 97.8 ??F (36.6 ??C) SpO2: 96% Weight: 74.3 kg (163 lb 12.8 oz) Height: 1.753 m (5' 9) Body mass index is 24.19 kg/m??. General appearance - alert, well appearing, and in no distress Psych - alert and oriented to person, place, and time, normal affect but a little sleepy this afternoon. ENT -Eyes: conjunctiva clear, no drainage. Ears: tm right pearly nassar, positive light reflex, landmarks present; tm left pearly nassar, positive light reflex, landmarks present. Nose: pink turbinates, clear drainage. Frontal and maxillary sinuses not tender to palpation. Throat: pink, moist mucous membranes, tonsils not enlarged, Neck - trachea midline, no thyromegaly, supple, [...] warm, dry, no rashes in visible areas. Right foot, 3rd nail is off and there is clear drainage from the site. The mid foot to the toes are red and swollen, hot to the touch. Neuro - PERRLA, CN ll through Xll intact. ASSESSMENT Encounter Diagnoses Name Primary? Type 2 diabetes mellitus with stage 3a chronic kidney disease, without long- term current use ofinsulin Yes ??? Local skin infection ??? Cellulitis of right lower extremity ??? Type 2 diabetes mellitus with diabetic neuropathy, without long-term current use of insulin ??? Urinary tract infection without hematuria, site unspecified ??? Pneumonia due to infectious organism, unspecified laterality, unspecified part of lung PLAN: Orders Placed This Encounter ??? [facility] Diabetes Education @ [facility] Standing Status: Standing Number of Occurrences: 5 Standing Expiration Date: 01/20/2022 Referral Priority: Routine Referral Type: Other Medical Referral Reason: Specialty Services Required Number of Visits Requested: 5 ??? DISCONTD: glipiZIDE (GLUCOTROL) 5 MG tablet Sig: Take 2 tablets before breakfast and then one tablet before breakfast. Dispense: 270 tablet Refill: 3 Dose adjustment. New orders but they do not need any now. ??? glipiZIDE (GLUCOTROL) 5 MG tablet Sig: Take 1 (one) tablet by mouth 2 times daily, before breakfast and supper Dispense: 180 tablet Refill: 1 Re entering order. We made a change but pt is going to the hospital. This is what he is on right now. To ER in [facility]. Further recommendations pending the above results and patient's clinical course. Follow-up visit prn. The patient indicates understanding of these issues and agrees with the plan. documented in this encounter Plan of Treatment Upcoming Encounters Date Type Department Care Team (Late st Contact Info) Description 04/07/2024 10:00 AM SANITOR Office Visit [facility] [id number] [place] [address] [address] [place] [address] Evelin Blanco APRN-CNP [address] [facility] [address] [place] [address] 06/06/2024 2:00 PM CDT Office [facility] [phone] [place] [address] [address] [place] [address] [place] [address] [facility] [address] [place] [address] documented as of this encounter Goals Goal Patient Goal Type Associated Problems Recent Progress Patient-Stated? Author Blood Pressure < 140/90 Blood Pressure 96/68(2023 2:34 PM SANITOR) Rere Vargas Note: Caring for Your High [...] Where can I go for more information? [place] Heart Association National Center: http://www.americanheart.org 1. In the top header, click ? Conditions? . 2. In the top header, click ? high blood pressure.? 3. For a printable blood pressure tracker, scroll toward the bottom of the page to Related Tools, and click ? HBP Trackers.? 5-160-QMA-USA-1 or ( ) National Heart, Lung and Blood [place]: http://www.nhlbi.nih.gov/health/infoctr/index.htm Blood Pressure < 140/90 Blood Pressure 96/68(2023 2:34 PM SANITOR) Rere Vargas Note: Caring for Your High [...] Where can I go for more information? [place] Heart Association National Center: http://www.americanheart.org 1. In the top header, click ? Conditions? . 2. In the top header, click ? high blood pressure.? 3. For a printable blood pressure tracker, scroll toward the bottom of the page to Related Tools, and click ? HBP Trackers.? 1-364-JAL-USA-1 or ( ) National Heart, Lung and Blood [place]: http://www.nhlbi.nih.gov/health/infoctr/index.htm Blood Pressure < 140/90 Blood Pressure 96/68(2023 2:34 PM SANITOR) Cassie Parks Note: Caring for Your High [...] Where can I go for more information? [place] Heart Association National Center: http://www.americanheart.org 1. In the top header, click ? Conditions? . 2. In the top header, click ? high blood pressure.? 3. For a printable blood pressure tracker, scroll toward the bottom of the page to Related Tools, and click ? HBP Trackers.? 8-936-TDX-USA-1 or ( ) National Heart, Lung and Blood [place]: http://www.nhlbi.nih.gov/health/infoctr/index.htm Exercise 5X per week (30 min per time) Exercise Rere Vargas Note: The [place] College of Sports Medicine recommends all adults [...] how to manage your diabetes: ? ? [place] Diabetes Association: www.diabetes.org 3-077-INBYWTFH ( ) ? ? [place] Diabetes Association-Support group line: www.professional.diabetes.org ? ? [place] Heart Association: www.heart.org or 6-367-WMQ-USA-1 ( ) [employer] MyPlate: www.Unity 4 Humanitymyplate.gov Have labs drawn Lifestyle Rere Vargas Note: [...] long-term current use of insulin (HCC)- Primary Local skin infection Unspecified local infection of skin and subcutaneous tissue Cellulitis of right lower extremity Cellulitis and abscess of leg, except foot Type 2 diabetes mellitus with diabetic neuropathy, without long-term current use of insulin (HCC) Urinary tract infection without hematuria, site unspecified Pneumonia due to infectious organism, unspecified laterality, unspecified part of lung documented in this encounter Care Teams Fur Repairer Relationship Specialty Start Date End Date Rosana Solo MD [address] [place] [address] PCP - Attributed-[facility] 02/19/19 [place] [address] [facility] [address] [address] [address] Ophthalmology 04/06/16 documented as of this encounter
--- OUTSIDE RECORDS SUMMARY | 2024-04-03 01:00 | XMS_ITS | Encounter Summary ---
Author Organization [facility] Address [address] [facility] [place] [address] Care Team Providers Care Mail Order Sorter Name Role Phone Ricco Andrew MD Unavailable [phone] Rosana Solo MD Unavailable [phone] Reason for Visit * Reason Onset Date Comments Patient Requested Call 09/06/2020 Blood Pressure 09/06/2020 Question 09/06/2020 Encounter Details Date Type Department Care Team (Late st Contact Info) Description 09/06/2020 Telephone [facility] - Family Medicine [address] [place] [address] Rosana Sloo MD [address] [address] Patient Requested Call; Blood Pressure; Question Social History Tobacco Use Types Packs/Day [...] * Telephone Encounter - Alison Lowe - 09/06/2020 2:00 PM CDT Notified patient's daughter of the recommendations for patient. All questions answered, patient's daughter verbalized understanding. * Telephone Encounter - Rosana Solo MD - 09/06/2020 1:41 PM CDT Hold pt's glipizide today if not eating well to decrease risk of low blood sugar. Try to get him toincrease salt and fluid intake. If pt has compression socks, please have him put on during day. Recheck BP in another 30-60 minutes. If trending even lower or If pt getting increasingly more confusedor sedated, then send to ER for evaluation. If pt complaining of chest pain, shortness of breath, severe abdominal pain, Or signs of stroke, then should take to ER now for evaluation. * Telephone Encounter - Karla Silva - 09/06/2020 1:15 PM CDT Who is calling? Patient daughter Cassie(hipaa 10/13/19) What is the reason for call? Cassie is concerned about patient she said he seem very tired today andshe checked his blood pressure 88/67 today Expected Response from the Clinic? Call back documented in this encounter Plan of Treatment Upcoming Encounters Date Type Department Care Team (Late st Contact Info) Description 04/07/2024 10:00 AM BOXING INSPECTOR Office Visit [facility] - Family Medicine [address] [facility] [address] [place] [address] Evelin Blanco, OIL RECOVERY OPERATOR-SIGN INSTALLER [address] [facility] [address] [place] [address] 06/06/2024 2:00 PM CDT Office Visit [facility] Medicine [address] [facility] [address] [place] [address] [place] [address] [place] [phone] documented as of this encounter Goals Goal Patient Goal Type Associated Problems Recent Progress Patient-Stated? Author Blood Pressure < 140/90 Blood Pressure 96/68(2023 2:34 PM BOXING INSPECTOR) Rere Vargas Note: Caring for Your [...] I go for more information? [place] Heart Association National Center: http://www.americanheart.org 1. In the top header, click ? Conditions? . 2. In the top header, click ? high blood pressure.? 3. For a printable blood pressure tracker, scroll toward the bottom of the page to Related Tools, and click ? HBP Trackers.? 2-652-ALD-USA- or ( ) National Heart, Lung and Blood [place]: http://www.nhlbi.nih.gov/health/infoctr/index.htm Blood Pressure < 140/90 Blood Pressure 96/68(2023 2:34 PM BOXING INSPECTOR) No Rere Kaufman Note: Caring for Your [...] I go for more information? [place] Heart Association National Center: http://www.americanheart.org 1. In the top header, click ? Conditions? . 2. In the top header, click ? high blood pressure.? 3. For a printable blood pressure tracker, scroll toward the bottom of the page to Related Tools, and click ? HBP Trackers.? 8-358-SUZ-USA-1 or ( ) National Heart, Lung and Blood [place]: http://www.nhlbi.nih.gov/health/infoctr/index.htm Blood Pressure < 140/90 Blood Pressure 96/68(2023 2:34 PM BOXING INSPECTOR) No Cassie Marie Note: Caring for [...] I go for more information? [place] Heart Association National Center: http://www.americanheart.org 1. In the top header, click ? Conditions? . 2. In the top header, click ? high blood pressure.? 3. For a printable blood pressure tracker, scroll toward the bottom of the page to Related Tools, and click ? HBP Trackers.? 5-225-URJ-USA-1 or ( ) National Heart, Lung and Blood [place]: http://www.nhlbi.nih.gov/health/infoctr/index.htm Exercise 5X per week (30 min per time) Exercise Rere Vargas Note: The [place] College of Sports Medicine recommends all adults [...] manage your diabetes: ? ? [place] Diabetes Association: www.diabetes.org 1-512-RSCJIUSP ( ) ? ? [place] Diabetes Association-Support group line: www.professional.diabetes.org ? ? [place] Heart Association: www.heart.org or 8-962-CRV-USA-1 ( ) [employer] MyPlate: www.mEgomyplate.gov Have labs drawn Lifestyle Rere Vargas Note: [...] on filedocumented in this encounter Care Teams Mail Order Sorter Relationship Specialty Start Date End Date Rosana Solo MD [address] [facility] [address] [place] [phone] PCP - Attributed-[facility] 02/19/19 [place] [address] [facility] [address] [place] [phone] Ophthalmology 04/06/16 documented as of this encounter
--- OUTSIDE RECORDS SUMMARY | 2024-04-03 01:00 | XMS_ITS | Encounter Summary ---
Author Organization [facility] Address [address] [place] [address] Care Team Providers Care Hockey Instructor Name Role Phone Ricco Andrew MD Unavailable [phone] Rosana Solo MD Unavailable [phone] Fawn Ramon DPM Unavailable [phone] Reason for Visit * Reason Comments Follow-up Diabetes Medicare Subsequent Annual Wellness Visi t Encounter Details Date Type Department Care Team (Late st Contact Info) Description 03/04/2021 2:00 PM RAILROAD CAR CLEANER Office Visit [facility] - Family Medicine [address] [place] [id number] Rosana Solo MD [address] [address] Routine general medical examination at health care facility (Primary Dx); Type 2 diabetes mellitus with stage 3a chronic kidney disease, without long-term current use of insulin (HCC); Type 2 diabetes mellitus with diabetic polyneuropathy, without long-term current use of insulin (HCC); Type 2 diabetes mellitus with retinopathy, without long-term current use of insulin, macular edema presence unspecified, unspecified laterality, unspecified retinopathy severity (HCC); Hypothyroidism, adult; Alzheimer's dementia without behavioral disturbance, unspecified timing of dementia onset; Decreased hearing of both ears; Need for vaccination; Skin-picking disorder Social History Tobacco Use Types Packs/Day Years [...] Sign Reading Time Taken Comments Blood Pressure 120/60 03/04/2021 1:58 PM RAILROAD CAR CLEANER Pulse 78 03/04/2021 1:58 PM RAILROAD CAR CLEANER Temperature 36.7 ??C (98 ??F) 03/04/2021 1:58 PM RAILROAD CAR CLEANER Respiratory Rate 18 03/04/2021 1:58 PM RAILROAD CAR CLEANER Oxygen Saturation 100% 03/04/2021 1:58 PM RAILROAD CAR CLEANER Inhaled Oxygen Concentration - - Weight 71.2 kg (157 lb) 03/04/2021 1:58 PM RAILROAD CAR CLEANER Height 175.3 cm (5' 9) 03/04/2021 1:58 PM RAILROAD CAR CLEANER Body Mass Index 23.18 03/04/2021 1:58 PM RAILROAD CAR CLEANER documented in this encounter Patient Instructions * Patient Instructions* Rosana Solo MD - 03/04/2021 2:47 PM RAILROAD CAR CLEANER Recommendations For A Healthy Lifestyle Get labs done fasting in the next few weeks. Nothing to eat or drink, other than water, for at least 8 hours before having drawn. Orders were sent electronically to [facility] Directions to [facility] [facility]: [facility] is located on the 1st floor of this building. Please take the elevators down to the lobby.As soon as you exit the elevator, take an immediate left out of the elevators and then go left downthe first hallway. [facility] is located in [address] on the left side just past the restrooms. They orders have been transmitted electronically, so the should have them. Routine Screening: ?? Diabetes and Cholesterol screening every 3-5 years starting at age 35 if normal, yearly if abnormal. Possible screening prior to age 35 if significant risk factors ?? Colonoscopy at age 45, then every 5-10 years depending on results ?? Men 55 -69 years discuss the need for prostate screening with your practitioner. ?? Yearly eye exam ?? Yearly dental exam (preferably every 6 months) ?? Yearly physical exam with your primary care doctor ?? Men age 65-75 who have every smoked should consider one time screening for an abdominal aortic aneurysm (AAA) with ultrasound Immunizations: ?? Yearly Influenza ?? Tetanus, Diptheria, and Pertussis (Tdap) booster every 10 years ?? Consider Prevnar 13 (Strep Pneumonia) vaccine after age 65 ?? Pneumovax (strep pneumonia vaccine) at age 65 or at any age if you smoke, have diabetes, or any lung or heart problems. ?? Shingles (Shingrix) vaccine after age 50 - It is a series of 2 shots given 2 to 6 months apart. Cuts risk of shingles by about 90%. Check with your insurance to see if they cover it. ?? Please get vaccination against COVID-19, if not already done. Other Suggestions: ?? Try to get 30 minutes of aerobic exercise daily. Goal is 150 minutes of moderate physical activity a week ?? Maintain a healthy Body Mass Index of 18.5-25. If overweight, please try to work on gradual weight loss through diet and exercise ?? Please wear your seat belt regularly ?? Please wear sunscreen if outside for any prolonged length of time ?? Aim for 1000 - 1200 mg of calcium daily: There are 300 mg of calcium in each serving of yogurt, cheese, milk, and cooked greens ?? Try not to exceed two alcoholic beverage per day ?? Avoid smoking. If you are currently smoking, please stop Health Maintenance Due Topic Date Due ??? ZOSTER VACCINE (1 of 2) Never done ??? DIABETES-HGB A1C 09/02/2020 ??? INFLUENZA VACCINE (1) 11/20/2020 ??? COVID-19 VACCINE (3 - Booster for Moderna series) 01/09/2021 ??? DIABETES-FOOT EXAM WITH MONOFILAMENT 03/29/2021 ??? DIABETES-EYE EXAM 04/04/2021 ?? Please call office during routine office hours if any questions or concerns. Schedule a Follow up Appointment with me in: 6 months Caring For Your Diabetes ?? Follow a diabetic diet with healthy meals that are low salt, low fat, high fiber. ?? For more information on a diabetic diet, please go to the [place] [employer] website at www.diabetes.org and select the Healthy Living ?? Home blood sugar monitoring and goals ?? 80-130 fasting ?? Less than 180 two hours after a meal ?? Home blood pressure goal less than 140/90, better if <130/80 ?? Check feet daily for sores, dryness, cracking; use daily moisturizer if needed and invest in good shoes ?? Annual Foot Exam ?? See eye doctor at least once per year and have report sent to our office ?? Aim for 30 minutes of exercise every day (45-60 minutes if trying to lose weight) The [employer] recommends [...] stairs instead of the elevator or park father away in the parking lot. Start slowand try to increase your amount of activity over several weeks. Exercise will help to improve your cholesterol readings and blood pressure and to be overall healthier. ?? Maintain a healthy weight. Body mass index is 23.18 kg/m??. If your BMI (a ratio of your weight to your height) is over 25, it is recommended that you try to exercise and eat healthier in an effort to lose a few pounds ?? Continue current medications: Yes ?? Please call office during routine office hours if any questions or concerns. ?? See me in 6 months Medicare Annual Wellness Visit Checklist Patient Care Team: Rosana Solo MD as PCP - General (Family Medicine) Rosana Solo MD as PCP - [facility] Ricco Johnson MD (Ophthalmology) Fawn Ramon DPM (Podiatry) The following list shows your recommended preventative service schedule and due dates. Health Maintenance Topic Date Due ??? ZOSTER VACCINE (1 of 2) Never done ??? DIABETES-HGB A1C 09/02/2020 ??? INFLUENZA VACCINE (1) 11/20/2020 ??? COVID-19 VACCINE (3 - Booster for Moderna series) 01/09/2021 ??? DIABETES-FOOT EXAM WITH MONOFILAMENT 03/29/2021 ??? DIABETES-EYE EXAM 04/04/2021 ??? HCC (Chart Reviewer Use Only) 01/17/2022 ??? DTAP/TDAP/TD VACCINES (3 - Td or Tdap) 10/03/2029 ??? PNEUMOCOCCAL VACCINE 65+ Completed ??? DEPRESSION SCREENING Completed ??? MEDICARE ADVANTAGE ANNUAL WELLNESS VISIT Completed ??? HEPATITIS B VACCINE Aged Out ??? HIB VACCINE Aged Out ??? MENINGOCOCCAL VACCINE Aged Out ??? DIABETES-STATIN Discontinued Topics that are Completed mean that they will not need to be done again. Topics that are Aged Out are things that have not been done but no longer are applicable to you. ?? Keep up-to-date Healthcare Power of Licensed Tax Consultant and Living Will documents with our office. In any emergency or unexpected hospitalization, these documents will then be visible for care providers to honor your wishes. Patient Education ROAD CAR CLEANER documented in this encounter Progress Notes * Alison Lowe - 03/04/2021 3:02 PM CST Patient has verbally consented to receive the High Dose Influenza Vaccine. Patient has verbalized the below: 1) Have you ever had an allergic reaction to the flu vaccine? No 2) Are you allergic to eggs, or egg product? No 3) Do you have a history of Guillain-Burciaga?? Syndrome? No Illness associated with the swine flu in 1975, characterized by fever, nerve damage and muscle weakness? 4) Are you allergic to latex? No 5) If you are female, are you ? N/A 6) *Do you feel ill today, or do you have a fever? No ? ? COVID-19 symptoms include: T >= 100.0 F, respiratory symptoms (cough, shortness of breath), new loss of smell and/or taste, stomach ache, sore throat or muscle pain? 7) *Today or in the prior 10 days, are you positive or suspected to have COVID- 19? No ??? Date of positive lab test: *During COVID-19 pandemic, do not provide the influenza vaccine if answer to questions 6 and/or [address] CLEANER * Rosana Solo MD - 03/04/2021 2:30 PM CST SUBJECTIVE: Mk Sanches is a 85 year old male presenting for their annual checkup. Diabetes type II with neuropathy: Glucose monitoring is performed occasionally. Blood glucoses 125 today. On glipizide 5 mg BID. Following DM diet: Gets meals on wheels. Eating well Last dilated eye exam: Has to scheduled Kidney disease?: Yes Neuropathy?: Yes. Denies complaints of numbness or pain On JAYDEN- I or ARB?: no. Stopped due to soft Bps. On Statin?: no. Well controlled without statin and has been declined in past due to some concern about dementia Diabetic ROS: no chest pain, dyspnea, no unusual visual symptoms, no new foot ulcers. Dementia/Alzheimers - on Namenda. Primarily short-term impairment. . oysterman memory remains intact. Still likes to sleep. Mood ok. Depression: Depression: PHQ-2:PHQ2 TOTAL SCORE: 0 PHQ-9: Hypothyroidism - on levothyroxine 75 mcg daily. Energy level fair.. Skin picking - doing well for most part Screening for depression: 1) Over the past 2 weeks have you felt down, depressed or hopeless?No 2) Over the past 2 weeks have you felt little interest or pleasure in doing things?No 3) Need for further evaluation?No Depression: PHQ-2:PHQ2 TOTAL SCORE: 0 PHQ-9: Functional ablity/safety screen: 1) denies recent falls. Stable with walker 2) Do you need help with the phone, transportation, shopping, preparing meals, housework, laundry, medications or managing money?daughter does more complex ADLS 3) Does your home have rugs in the hallways, lack grabbars in the bathroom, lack handrails on the stairs or have poor lighting?no grab-bars in bathroom yet. They are trying to figure out where to install as have very small shower area 4) Hearing evaluation:poor 5) Need for further evaluation?Yes No exam data present Screening for cognitive impairment: Family member/caregiver and/or physician observation of cognitive impairment:Moderate Need for further evaluation?stable Current specialist(s) DPM - [facility] Medicare Annual Wellness Visit 03/04/2021 During the past 4 weeks, was someone available to help you if you needed and wanted help? - 5. Can you shop for groceries or clothes without help? - 6. Can you prepare your own meals? - 7. Can you do your own housework without help? - 8. Does someone help you manage your money? - 12. Are you having difficulties driving your car? Do others feel safe riding in a car with you driving? - 14. Are you able to stand without help? - 15. Are you able to reach for objects on a shelf? - 16. Are you able to walk up and down steps? - 17. Are you able to get in and out of a car? - 18. Do you have throw rugs on the floor? - 19. Do you have to walk around or step over cords or wires? - 20. Does your home have grab bars in the bathroom? - 21. Does your home have handrails on the stairs? - 22A. Fall or dizzy when standing up: - 22B. Sexual problems: - 22C. Trouble eating well: - 22D. Teeth or dentures: - 22E. Problems using the telephone: - 22F. Tired: - 23. In the past year have you had concerns with your balance or a fear of falling? - 26. During the past 4 weeks, how many drinks of wine, beer or other alcoholic beverages did you have? - 28. Are there smoke alarms in your home? - 29. Are there carbon monoxide alarms in your home? - 32. Have you lost or gained weight without trying in the last year? - 33A. Hazards in your house that might hurt you? ` - 33B. Keeping track of your medications? - 34. How often do you have trouble taking medicines the way you have been told to take them? - 35. Do you feel in control of your health? - 36. Do you use any of the following assistive devices: - 38. Has hearing become more difficult in one or both ears? - 39. Are you currently using hearing aid (s) - 1. During the past 4 weeks, how would you rate your health in general? Excellent 2. Do you have problems with stress, anger, loneliness, isolation or fatigue? No 3. Do you smoke/vape/use tobacco? No 4. How often did you have a drink containing alcohol in the past year? Never 5. Do you use recreational drugs? Never 6. What best describes your activity level during the past 4 weeks? Moderately Active 7. Do you participate or engage in physical activity or exercise each week? Yes 7A .How many minutes per week? Greater than 150 8. Do you have sexual problems or difficuilties with physical intimacy? No 9. Do you always fasten your seat belt when you are in a car? Yes 10. Are there smoke alarms and carbon monoxide alarms in your home? Yes 11. In the bedroom, are you able to quickly and easily reach a light or light switch? Yes 12. Is the path from your bed to the bathroom free of obstacles with adequate lighting? Yes 13. Do you have throw rugs on the floor or do you have to walk around or step over cords or wires? No 14. Does your home have grab bars in the bathroom and handrails on the stairs? Yes 15. Have you fallen in the last year? No 24A. Fall >2 x or injured from the fall? - 16. Do you feel unsteady when standing or walking? No 17. Do you worry about falling? No 18. Do you need help from others to perform everyday activities such as: Eating, getting dressed, grooming, bathing, walking or using the restroom? No 19. Do you need help from others to perform everyday activities such as: Shopping, housework, meal preparation, managing money, or using the telephone? Yes 20. Do you have difficulty in getting transportation to where you need to go? No 21. Do you have any concerns about your nutrition or access to food? No 22. Do you have trouble taking medications the way you have been instructed to take them? No 23. Do you have difficulty hearing or do you use hearing aids? Yes 24. Do you have problems with your teeth or dentures? No 25. In the past 4 weeks, how would you rate your pain, aches, soreness, or discomfort? Very mild pain 26. Do you have any history of leaking urine or urinary incontinence? No Does patient have advanced directive on file?: not currently Patient Active Problem List: Type 2 diabetes mellitus with stage 3 chronic kidney disease Hypothyroidism, adult Alzheimer's dementia without behavioral disturbance Seasonal allergic rhinitis Type 2 diabetes mellitus with diabetic neuropathy Skin-picking disorder Type 2 diabetes mellitus with diabetic retinopathy Outpatient Medications Marked as Taking for the 03/04/21 encounter (Office Visit) with Rosana Solo MD Medication Sig Dispense Refill ??? Acetaminophen (TYLENOL ARTHRITIS PAIN PO) Take 500 mg by mouth Two times a week ??? albuterol HFA (PROVENTIL; VENTOLIN; PROAIR) 108 (90 Base) MCG/ACT inhaler as needed ??? DIONICIO ASPIRIN REGIMEN PO Take 81 mg by mouth once daily ??? cetirizine (ZYRTEC) 10 MG tablet Take 1 (one) tablet by mouth once daily ??? famotidine (PEPCID) 20 MG tablet Take 1 (one) tablet by mouth 2 times daily ??? glipiZIDE (GLUCOTROL) 5 MG tablet [...] touch mini test strips)) 100 strip 2 Medication(s) I personally manage have been reviewed and updated today. See Medication Tab for details. Allergies Allergen Reactions ??? Ibuprofen Other HE HAS CKD AND SHOULD NOT TAKE NSAID'S ??? Septra Ds [Sulfamethoxazole W-Trimethoprim] Rash Records review: PMH, PSH, FamHx all updated and reviewed as indicated Social History Tobacco Use ??? Smoking status: Never Smoker ??? Smokeless tobacco: Former User Types: Chew Vaping Use ??? Vaping Use: Never used Substance Use Topics ??? Alcohol use: No ??? Drug use: No REVIEW OF SYSTEMS Constitutional: Denies fever, chills Eyes: no discomfort. Ears, nose, mouth, and throat: Denies nasal discharge. Denies sorethroat Respiratory: Denies cough, dyspnea, wheezing, Cardiovascular: Denies chest pain, palpitations Gastrointestinal: Denies abdominal pain, vomiting, diarrhea, constipation, bloody stools or melena Genitourinary: Denies urinary complaints. Skin: Denies recent rashes Hematologic/lymphatic: Denies abnormal bleeding or bruising. Musculoskeletal: Denies myalgias Neurological: Denies numbness, tingling, syncope, dizziness. Denies TIA or stroke-like symptoms Behavioral/Psych: No depression Depression: PHQ-2:PHQ2 TOTAL SCORE: 0 PHQ-9: Endocrine: Some fatigue OBJECTIVE: Vitals: 03/04/21 1358 BP: 120/60 Pulse: 78 Resp: 18 Temp: 98 ??F (36.7 ??C) SpO2: 100% Weight: 71.2 kg (157 lb) Height: 1.753 m (5' 9) Body mass index is 23.18 kg/m??. General: alert, well appearing, and in no acute distress HEENT: Normocephalic atraumatic. PERRLA, EOMI, no conjunctivitis. Bilateral TM's and external ear canals normal. No cervical adenopathy. Thyroid normal without nodules or thyromegaly. CV exam: regular rate and rhythm, normal S1 and S2, No murmurs, No rubs or gallops appreciated. Respiratory: clear to auscultation bilaterally, no wheezes, rales, or rhonchi, Good aeration. no tachypnea, retractions, or cyanosis Abdominal exam: Soft, non-tender abdomen. No rebound or guarding. No masses or hepatosplenomegaly noted. Neuro: Alert and oriented x 1-2, Cranial nerves II-XII grossly intact. Strength and sensation grossly intact in bilateral upper extremities and bilateral lower extremities. Grossly non-focal Extremities: No cyanosis, clubbing. No edema. Psych: Normal mood and affect today. Skin: Healing scabs To bilateral lower legs above ankles. No signs fo infection A comprehensive diabetic foot exam was performed today on bare feet including visual inspection, monofilament, and assessment of pulses. + bunions bilaterally. Overlapping 1st and 2nd toes with hammer toe deformity 2nd toe. No open wounds or ulcerations. + thickened/discolored nails. Sensation decreased to monofilament in toes. Intactnear ankles. 1+DP pulses. PT pulse not well appreciated Recent Labs Component Name 08/30/19 1505 03/02/18 1347 03/01/17 1419 CHOL 177 171 149 TRIG 177* 230* 97 HDL 41 39* 43 LDLCALC 101 86 87 Recent Labs Component Name 03/04/20 1424 08/30/19 1505 02/28/19 1622 08/29/18 1432 SODIUM 135* 137 - 137 POTASSIUM 4.4 4.7 - 4.6 CHLORIDE 99 103 - 104 CO2 26 23 - 23 BUN 22 27* - 25 CREATININE 1.44* 1.67* - 1.51* GLUCOSE 218* 180 168* 177 - 177* CALCIUM 8.5 9.0 - 9.1 ALBUMIN 3.7 4.2 - 4.1 ALKPHOS 74 78 - 69 ALT 11 16 - 12* AST 13 15 - 14 TBIL 0.3 0.2 - 0.3 TPROT 6.9 7.4 - 7.1 EGFR 47 40 - 45 - = values in this interval not displayed. ASSESSMENT & PLAN: Routine general medical examination at health care facility Type 2 diabetes mellitus with stage 3a chronic kidney disease, without long-term current use of insulin - Hgb A1c goal <8, better if <7.5 due to age. Monitor. encoruaged healthy diet and lifestyle. needs to schedule eye exam - Plan: HEMOGLOBIN A1C W EAG, COMPREHENSIVE METABOLIC PANEL, CBC WITH DIFFERENTIAL, LIPID PROFILE REFLEX LDL DIRECT, MICROALB/CREAT RATIO URINE RANDOM PANEL, DIABETES FOOT EXAM Type 2 diabetes mellitus with diabetic polyneuropathy, without long-term current use of insulin - minimal sx. foot care reivewed with daughter - Plan: HEMOGLOBIN A1C W EAG, COMPREHENSIVE METABOLIC PANEL, CBC WITH DIFFERENTIAL, LIPID PROFILE REFLEX LDL DIRECT, MICROALB/CREAT RATIO URINE RANDOM PANEL, DIABETES FOOT EXAM Type 2 diabetes mellitus with retinopathy, without long-term current use of insulin, macular edema presence unspecified, unspecified laterality, unspecified retinopathy severity - sees ophtho - Plan:HEMOGLOBIN A1C W EAG, COMPREHENSIVE METABOLIC PANEL, CBC WITH DIFFERENTIAL, LIPID PROFILE REFLEX LDL DIRECT, MICROALB/CREAT RATIO URINE RANDOM PANEL Hypothyroidism, adult - relatively euthyroid. cont rx - Plan: TSH Alzheimer's dementia without behavioral disturbance, unspecified timing of dementia onset - memory relatively stable. cont rx Decreased hearing of both ears - refer to audiology - Plan: AMB REFERRAL TO AUDIOLOGY Need for vaccination - Plan: FLU VACCINE QUAD AIIV4 PF 0.5ML IM Skin-picking disorder - minimal active wounds. monitor Diabetes Education Reviewed diabetic disease process, standards of care, and possible disease complications I have discussed the following steps for improving diabetic care: ?? diabetic diet with healthy meals that are low salt, low fat, high fiber ?? daily 30 minutes of exercise (45-60 minutes if trying to lose weight) ?? home glucose monitoring and goals (fast 70-130 and 2 hr PP <180) ?? HgA1C goal <8% ?? If checking home bp, goal less than 140/90 on average, even better if <130/85 ?? Check feet daily for sores, dryness, cracking; use daily moisturizer if needed and invest in good shoes ?? See eye doctor at least once per year and have report sent to us Health Maintenance: Discussed health maintenance issues including regular seat belt use, dental care, sunscreen use, good nutritional habits, and regular aerobic exercise. Preventative care counseling/screening: Smoking cessation: encouraged to continue to abstain Colon cancer screening (adults 45-49?,50-74): na Lung Cancer screening (55-80 with 30 pack year Hx): na PSA screening (55-69): na AAA screening (one time for males 65-75 who have ever smoked): na Hep C screening (one time for adults born after 1945): na HIV screening (15-65): na* Healthy Living Tips Low fat, low cholesterol diet rich in lean proteins, whole grains, fruits and vegetables. Limit fast foods and processed foods ACSM activity recs: 150 minutes/week. 30 minutes most days of the week. Vaccinations updated: Tetanus (Tdap Q 10 yr): UTD Shingrix (over age 50): Consider at pharmacy Influenza (yearly): given PCV13 (65+?) or Pneumovax (65+, or if risk factors): UTD COVID-19: encouraged booster. They will schedule for later date as we have no additional available shots today Medicare wellness exam: Height: 175.3 cm (5' 9) Body mass index is 23.18 kg/m??. Vitals: Blood pressure 120/60, pulse 78, temperature 98 ??F (36.7 ??C), temperature source Temporal, resp. rate 18, height 1.753 m (5' 9), weight 71.2 kg (157 lb), SpO2 100 %. 1)An update of the individual's medical/family history - updated today 2)An update of the list of current providers and suppliers that are regularly involved in providingmedical care to the individual : yes 3)Detection of any cognitive impairment that the individual may have - + dementia 4)An update to the written screening schedule - discussed & updated health maintenance today 5)An update to the list of risk factors and conditions for which primary, secondary, or tertiary interventions are recommended or are under way for the individual - discussed today during visit 6)Furnishing of personalized health advice to the individual and a referral, as appropriate, to health education or preventive counseling services or programs - done today 7) Advanced directives on file - encouraged to consider Return in one year for routine health maintenance visit and 6 months for chronic issues An After Visit Summary was printed and given to the patient. Rosana Solo MD ROAD CAR CLEANER documented in this encounter Plan of Treatment Upcoming Encounters Date Type Department Care Team (Late st Contact Info) Description 04/07/2024 10:00 AM RAILROAD CAR CLEANER Office Visit [facility] [id number] [place] [id number] Evelin Blanco APRN-[employer]ER ACCOUNTS INVESTIGATOR [id number] [place] [phone] 06/06/2024 2:00 PM CDT Office Visit [facility] [id number] [place] [id number] Chris Aden MD [id number] [place] [phone] documented as of this encounter Goals Goal Patient Goal Type Associated Problems Recent Progress Patient-Stated? Author Blood Pressure < 140/90 Blood Pressure 96/68(2023 2:34 PM [employer]ILROAD [employer]) Rere Vargas Note: Caring for Your High [...] Related Tools, and click ? HBP Trackers.? 7-522-IOI-USA-1 or ( ) National Heart, Lung and Blood Flasher: http://www.nhlbi.nih.gov/health/infoctr/index.htm Blood Pressure < 140/90 Blood Pressure 96/68(2023 2:34 PM [employer]ILROAD CAR [employer]) Rere Vargas Note: Caring for Your High [...] Related Tools, and click ? HBP Trackers.? 2-654-YZL-USA-1 or ( ) National Heart, Lung and Blood Flasher: http://www.nhlbi.nih.gov/health/infoctr/index.htm Blood Pressure < 140/90 Blood Pressure 96/68(2023 2:34 PM [employer]ILROAD [employer]) Cassie Parks Note: Caring for Your High [...] Related Tools, and click ? HBP Trackers.? 5-675-MTL-USA-1 or ( ) National Heart, Lung and Blood Flasher: http://www.nhlbi.nih.gov/health/infoctr/index.htm Exercise 5X per week (30 min per time) Exercise Rere Vargas Note: [employer] [...] diabetes: ? ? [place] [employer] Association: www.diabetes.org 4-873-RMBBDRIP ( ) ? ? [place] Diabetes Association-Support group line: www.professional.diabetes.org ? ? 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, without long-term current use of insulin, macular edema presence unspecified, unspecified laterality, unspecified retinopathy severity (HCC) HEMOGLOBIN A1C W EAG Routine 03/04/2021 3:29 PM [employer]RO[employer] Type 2 diabetes mellitus with stage 3a chronic kidney disease, 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, 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, without long-term current use of insulin, macular edema presence unspecified, unspecified laterality, unspecified retinopathy severity (HCC) TSH REFLEX FREE T4 03/04/2021 3: 29 PM [employer]RO[employer] CAR [employer] MICROALB/CREAT RATIO URINE RANDOM PANEL Routine 03/04/2021 3:29 PM [employer]RO[employer] Type 2 diabetes mellitus with stage 3a chronic kidney disease, 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, 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, without long-term current use of insulin, macular edema presence unspecified, unspecified laterality, unspecified retinopathy severity (HCC) CBC W AUTO DIFFERENTIAL Routine 03/04/2021 3:29 PM [employer]RO[employer] Type 2 diabetes mellitus with stage 3a chronic kidney disease, 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, 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, without long-term current use of insulin, macular edema presence unspecified, unspecified laterality, unspecified retinopathy severity (HCC) COMPREHENSIVE METABOLIC PANEL Routine 03/04/2021 3:29 PM [employer]RO[employer] Type 2 diabetes mellitus with stage 3a chronic kidney disease, 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, 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 [place] [phone] Rosana Solo MD LAB - CHEMISTRY MELYSSA CHAHAL Performing Organization Address [facility] Co de Phone Number [facility] ACCOUNT BILL [address] [place] [address] * TSH (03/04/2021 3:29 PM RAILROAD CAR CLE[employer]) Pathologist [facility] TSH 2.0787 0.35 - 4.94 uIU/mL [facility] ACCOUNT BILL Comment:FASTING Blood BLOOD SPECIMEN / Unknown 03/04/2021 3:29 PM [employer]ILRO[employer] 03/04/2021 Narrative Resulting Agency Comment Lab Testing performed at: [place] [address] [address] ?? [place] [phone] Rosana Solo MD LAB - CHEMISTRY MELYSSA CHAHAL Performing Organization Address City/[facility]/ZIP Co de Phone Number [facility] ACCOUNT BILL [address] [place] [address] * MICROALB/CREAT RATIO URINE RANDOM PANEL (03/04/2021 3:29 PM RAILROAD CAR CLE[employer]) Pathologist [facility] Creatinine Urine 139.76 mg/dL [facility] ACCOUNT BILL Microalbumin Urine <0.5 mg/dL [facility] ACCOUNT BILL Microalbumin/Cre atinine Ratio NOT NEEDED mg/g [facility] ACCOUNT BILL Comment: Unable to calculate result since non-numeric result obtained for component test. FASTING Ancillary determined the test is not needed. Urine URINE SPECIMEN OBTAINED BY CLEAN CATCH PROCEDURE / Unknown 03/04/2021 3:29 PM RAILROAD CAR CLE[employer] 03/04/2021 Narrative Resulting Agency Comment Lab Testing performed at: [address] ?? [place] [phone] Rosana Solo MD LAB - URINE CHEMISTR Y ORDERABLES Performing Organization Address [facility] de Phone Number [facility] ACCOUNT BILL [address] [place] [address] * LIPID PROFILE REFLEX LDL DIRECT (03/04/2021 3:29 PM RAILROAD [employer]) Cholesterol 160 <200 mg/dL [facility] ACCOUNT BILL [...] BLOOD SPECIMEN / Unknown 03/04/2021 3:29 PM RAILROAD [employer] 03/04/2021 Narrative Resulting Agency Comment Lab Testing performed at: [place] [address] [address] ?? [facility] [phone] Rosana Solo MD LAB - CHEMISTRY ORDE RABLES Performing Organization Address [facility] de Phone Number [facility] ACCOUNT BILL [address] [place] [address] * (ABNORMAL) CBC WITH DIFFERENTIAL (03/04/2021 3:29 PM RAILROAD CAR [employer]) WBC 6.2 4.4 - 10.7 x10E9/L [facility] ACCOUNT BILL RBC 4.64 3.80 - 5.40 x10E12/L [facility] ACCOUNT BILL Hemoglobin 14.1 12.0 - 17.6 gm/dL [facility] ACCOUNT BILL Hematocrit 45.3 35.2 - 51.7 % [facility] ACCOUNT BILL MCV 97.6 80.7 - 98.3 fl [facility] ACCOUNT BILL MCH 30.4 26.7 - 34.0 pg [facility] ACCOUNT BILL MCHC 31.1 30.8 - 35.9 gm/dL [facility] ACCOUNT BILL RDW 15.6(H) 12.1 - 14.9 % [facility] ACCOUNT BILL Platelet Count 224 153 - 416 x10E9/L [facility] ACCOUNT BILL Comment:MPV FL BLOOD (SSM) 1 1.8 fl 9.4-12.9 Granulocytes % 53.6 44.0 - 73.0 % [facility] ACCOUNT BILL Lymphocytes % 33.7 20.0 - 43.0 % [facility] ACCOUNT BILL Monocytes % 8.2 5.0 - 13.0 % [facility] ACCOUNT BILL Eosinophils % 3.2 0.0 - 6.0 % [facility] ACCOUNT BILL Basophils % 1.1 0.0 - 2.0 % [facility] ACCOUNT BILL Granulocytes Absolute 3.35 2.01 - 7.14 x10E9/L [facility] ACCOUNT BILL Lymphocytes Absolute 2.10 1.07 - 3.94 x10E9/L [facility] ACCOUNT BILL Monocytes Absolute 0.51 0.26 - 1.07 x10E9/L [facility] ACCOUNT BILL Eosinophils Absolute 0.20 0 - 0.47 x10E9/L [facility] ACCOUNT BILL Basophils Absolute 0.07 0 - 0.08 x10E9/L [facility] ACCOUNT BILL Immature Granulocytes 0.2 0 - 1 % [facility] ACCOUNT BILL Immature Granulocytes Absolute 0.01 0.00 - 0.06 x10E9/L [facility] ACCOUNT BILL nRBC 0 /100 WBC [facility] ACCOUNT BILL Comment:FASTING Blood BLOOD SPECIMEN / Unknown 03/04/2021 3:29 PM RAILROAD CAR CLE[employer] 03/04/2021 Narrative Resulting Agency Comment [facility] Testing performed [facility] [address] [facility] [place] [phone] Rosana Solo MD LAB - HEMATOLOGY ORD ERABLES [facility] ACCOUNT BILL [address] [place] [address] * (ABNORMAL) COMPREHENSIVE METABOLIC PANEL (03/04/2021 3:29 PM RAILROAD [employer]) Glucose 119(H) 70 - 105 mg/dL [facility] ACCOUNT BILL BUN 22 8.4 - 25.7 mg/dL [facility] ACCOUNT BILL Creatinine 1.66(H) 0.72 - 1.25 mg/dL [facility] ACCOUNT BILL eGFR by MDRD 40 mL/min/1.7 3m2 [facility] ACCOUNT BILL eGFR by MDRD 48 mL/min/1.7 3m2 [facility] ACCOUNT BILL Sodium 141 136 - 145 mmol/L [facility] ACCOUNT BILL Potassium 4.6 3.5 - 5.1 mmol/L [facility] ACCOUNT BILL Chloride 106 98 - 107 mmol/L [facility] ACCOUNT BILL CO2 24 23 - 31 mmol/L [facility] ACCOUNT BILL Calcium 9.3 8.4 - 10.4 mg/dL [facility] ACCOUNT BILL Protein Total 7.5 6.4 - 8.3 gm/dL [facility] ACCOUNT BILL Albumin 3.9 3.2 - 4.6 gm/dL [facility] ACCOUNT BILL Bilirubin Total 0.5 0.2 - 1.2 mg/dL [facility] ACCOUNT BILL Alkaline Phosphatase 76 40 - 150 U/L [facility] ACCOUNT BILL AST 16 5 - 34 U/L [facility] ACCOUNT BILL ALT 13 0 - 61 U/L [facility] ACCOUNT BILL Comment:FASTING Blood BLOOD SPECIMEN / Unknown 03/04/2021 3:29 PM RAILROAD [employer] CLE[employer] 03/04/2021 Narrative Resulting Agency Comment Lab Testing performed at: [address] ?? [facility] [phone] Rosana Solo MD LAB - CHEMISTRY MELYSSA CHAHAL [facility] ACCOUNT BILL [address] [place] [address] * (ABNORMAL) HEMOGLOBIN A1C W EAG (03/04/2021 3:29 PM RAILROAD CAR CLE[employer]) Hemoglobin A1c 6.4(H) 4.2 - 5.6 % [facility] ACCOUNT BILL Estimated Average Glucose 137 mg/dL [facility] ACCOUNT BILL Comment: The following cutoff levels are recommended by [place] [employer]. A1c ??> 6.5% : considered as diabetes if two separate tests > 6.5% or in an appropriate clinical setting. A1c ??5.7% - 6.4% : considered as prediabetes (suggest increa sed risk for diabetes and cardiovascular disease) Control target level: ??Should be individualized. ??< 7 ??for g eneral (non-) , ??< 8% less stringent goal, ??< 6.5 ??more stringent g Hemoglobin A1c measurements are used as an aid in the diagno sis of diabetic mellitus, as an aid to identify patients who may be at the disease. ?? This method may yield falsely low results when fe gladis hemoglobin (HbF) exceeds 5% in the specimen. FASTING Blood BLOOD SPECIMEN / Unknown 03/04/2021 3:29 PM RAILROAD CAR CLE[employer]ER 03/04/2021 Narrative Resulting Agency Comment Lab Testing performed at: [facility] [id number] [place] [address] ?? 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, without long-term current use of insulin, macular edema presence unspecified, unspecified laterality, unspecified retinopathy severity (HCC) Hypothyroidism, adult Other specified acquired hypothyroidism Alzheimer's dementia without behavioral disturbance, unspecified timing of dementia onset (HCC) Decreased hearing of both ears Need for vaccination Need for prophylactic vaccination and inoculation against unspecified single disease Skin-picking disorder documented in this encounter Care Teams Hockey Instructor Relationship Specialty Start Date End Date Rosana Solo MD [address] [facility] [address] [place] [address] PCP - Attributed-[facility] 02/19/19 [place] [id number] [facility] [address] [place] [address] Ophthalmology 04/06/16 Fawn Ramon DPM [id number] [facility] [address] [place] [address] Podiatry 01/24/21 documented as of this encounter
--- OUTSIDE RECORDS SUMMARY | 2024-04-03 01:00 | XMS_ITS | Encounter Summary ---
Author Organization [facility] Address [address] [address] Care Team Providers Care Interactive Art Director Name Role Phone Ricco Andrew MD Unavailable [phone] Rosana Solo MD Unavailable [phone] Reason for Visit * Reason Comments Diabetic Foot Care DM chek/FEI w PCP Encounter Details Date Type Department Care Team (Latest Contact Info) Description 03/28/2020 2:40 PM SUPERVISOR ELECT[employer]ESSING Office Visit [facility] - Podiatry [address] [facility] [address] [place] [id number] Fa[address] Ramon [facility] [id number] [address] Type 2 diabetes mellitus with diabetic neuropathy, without long-term current use of insulin (HCC) (Primary Dx); Onychogryphosis; Pain due to onychomycosis of toenail; Onychodystrophy; Onycholysis Social History Tobacco Use Types Packs/Day Years [...] COVID-19? No / Unsure 03/28/2020 4:14 PM SUPERVISOR E[employer] documented as of this encounter Last Filed Vital Signs Vital Sign Reading Time Taken Comments Blood Pressure 122/70 03/28/2020 3:03 PM SUPERVISOR [employer]ING Pulse 78 03/28/2020 3:03 PM SUPERVISOR [employer]ING Temperature - - Respiratory Rate - - Oxygen Saturation - - Inhaled Oxygen Concentration - - Weight 77.1 kg (170 lb) 03/28/2020 3:03 PM SUPERVISOR [employer]ESSING Height 175.3 cm (5' 9) 03/28/2020 3:03 PM SUPERVISOR E[employer]ESSING Body Mass Index 25.1 03/28/2020 3:03 PM SUPERVISOR [employer]ING documented in this encounter Patient Instructions * Patient Instructions* Fawn Ramon DPM - 03/28/2020 4:09 PM SUPERVISOR E[employer]ESSING Images from the original note were not included. Patient Education Foot Care for People with Diabetes WHAT YOU NEED TO KNOW: What do I need to know about foot care? ?? Foot care helps protect your feet [...] become life-threatening over time without proper care. How do I care for my feet? ?? Check your feet each day. Look [...] nerve damage, foot deformities, or ulcers. He or she will check for nerve damage and how well you can feel your feet. He or she will check your shoes to see if they fit well. ?? Do not smoke. Smoking can damage your blood vessels and put you at increased risk for foot ulcers. Ask your care team provider for information if you currently smoke and need help to quit. E-cigarettes or smokeless tobacco still contain nicotine. Talk to your care team provider before you use these products. When should I call my care team provider? ?? Your feet become numb, weak, or [...] or concerns about your condition or care. CARE AGREEMENT: You have the right to help plan your care. Learn about your health condition and how it may be treated. Discuss treatment options with your healthcare providers to decide what care you want to receive. You always have the right to refuse treatment. The above information is an home aide only. It is not intended as medical advice for individual conditions or treatments. Talk to your doctor, nurse or pharmacist before following any medical regimen to see if it is safe and effective for you. ?? Copyright [employer] 2020 Information is for End User's use only and may not be sold, redistributed or otherwise used for commercial purposes. All illustrations and images included in CareNotes?? are the copyrighted property of [employer] or [employer] Patient Education Diabetic Peripheral Neuropathy WHAT YOU NEED TO KNOW: What is diabetic peripheral neuropathy (DPN)? DPN is damage to the nerves in your arms, hands, legs, and feet. DPN is most common in the legs and feet and can increase your risk for foot ulcers. Nerve pain caused by DPN can limit your mobility, and affect your quality of life. What increases my risk for DPN? ?? Poor blood sugar control ?? High blood pressure, high cholesterol, or lack of vitamin D ?? Tobacco use What are the signs and symptoms of DPN? You may have no symptoms at all. You may have any of the following: ?? Increased sensitivity to touch ?? Muscle weakness or problems balancing or walking ?? Burning, tingling, cramping, or pain in your feet or hands ?? Not able to feel hot, cold, or pressure due to loss of protective sensation (LOPS) ?? Decreased muscle and fat around your feet ?? Decreased movement of your ankles ?? Foot redness, warmth, or calluses How is DPN diagnosed and treated? Your diabetes care team provider will check your reflexes, strength, and flexibility. A 10-g monofilament test will be done. A monofilament is a device with one flexible strand that will touch the soles of your feet. Your care team provider may also do a pinprick, temperature, or vibration sensation test. Controlled blood sugar levels is the only treatment for DPN. Controlled blood sugar levels cannot reverse nerve damage. You may be able to prevent or delay DPN, if you have type 1 diabetes. If you have type 2 diabetes, controlled blood sugar levels may slow the progression. Your care team provider may give medicines to help with the nerve pain. How can I control my blood sugar levels? Keep your blood sugar levels as close to normal as possible by taking your medicines as directed. Check your blood sugar levels as often as directed. Contact your healthcare provider if your levels are higher than they should be. ?? Follow the meal plan that your care team provider or dietitian gave you. This meal plan can helpyou control your blood sugar and decrease your symptoms. ?? Be physically active. Physical activity, such as exercise, can help keep your blood sugar level steady and help you manage your weight. Be active for at least 30 minutes, 5 days a week. Ask your care team provider about the best activity plan for you. Use caution when you exercise if you have decreased feeling in your feet. ?? Maintain a healthy weight. Ask your care team provider how much you should weigh. A healthy weight can help you control your diabetes. Ask him to help you create a weight loss plan if you are overweight. Even a 10 to 15 pound weight loss can help you manage your blood sugar level. ?? Know the risks if you choose to drink alcohol. Alcohol can make it harder to manage diabetes. Alcohol can cause your blood sugar levels to be low if you use insulin. Alcohol can cause high blood sugar levels and weight gain if you drink too much. Women 21 years or older and men 65 years or oldershould limit alcohol to 1 drink a day. Men aged 21 to 64 years should limit alcohol to 2 drinks a da y. A drink of alcohol is 12 ounces of beer, 5 ounces of wine, or 1?? ounces of liquor. What else can I do to prevent or manage DPN? ?? Care for your feet. Check your feet each day for cuts, scratches, calluses, or other wounds. Look for redness and swelling, and feel for warmth. Wear shoes that fit well. Check your shoes for rocks or other objects that can hurt your feet. Do not walk barefoot or wear shoes without socks. Wear cotton socks to help keep your feet dry. ?? Do not smoke. Nicotine can worsen your symptoms and make it more difficult to manage your diabetes. Do not use e-cigarettes or smokeless tobacco in place of cigarettes or to help you quit. They still contain nicotine. Ask your care team provider for information if you currently smoke and need help quitting. When should I seek immediate care? ?? Your legs or feet start to turn blue or black. ?? You have a wound that does not heal or is red, swollen, or draining fluid. When should I call my care team provider? ?? You begin to have symptoms. ?? Your blood sugar level is higher or lower than care team providers have told you it should be. ?? You have redness, calluses, or sores on your feet. ?? You have questions or concerns about your condition or care. CARE AGREEMENT: You have the right to help plan your care. Learn about your health condition and how it may be treated. Discuss treatment options with your healthcare providers to decide what care you want to receive. You always have the right to refuse treatment. The above information is an home aide only. It is not intended as medical advice for individual conditions or treatments. Talk to your doctor, nurse or pharmacist before following any medical regimen to see if it is safe and effective for you. ?? Copyright [employer] 2020 Information is for End User's use only and may not be sold, redistributed or otherwise used for commercial purposes. All illustrations and images included in CareNotes?? are the copyrighted property of [employer] or [employer]ESSING documented in this encounter Progress Notes * Fawn Ramon, DPM - 03/28/2020 3:43 PM CST 03/28/2020 Cc:Diabetic foot check up and painful toenails HPI: Referral from Dr. Solo Ryder Cabello is a 84 year old male is here for diabetic foot checkup. Pt is here with her daughter who is his caregiver. Reports of pt's diabetes is being controlled with oral meds. Pt admits of neuropathy symptoms with numbness in the feet. Admits of gait instability and imbalance, and is now walking with assistance of a walker. Denies frequent falls. Patient also complains of bilateral foot painfor a long time due to toenail pain with ambulation and shoegear. Denies injury but daughter reports of noticing blood on the floor and bleeding from his foot. When she questions her father about his left great toenail patient responded that he did not know what happened. Patient's daughter admits of the nail being extremely long and loose. She thinks that the pt's left great toenail was pulled off by the pt or the nail got caught on his socks when he was taking them off. Reports of self treating the toe with basic for stayed and relates of the avulsion site is well healed. Denies redness, or swelling of the toes. Relates of inablibilty to cut the nails due to the severity of thicknessand length. Reports also of discoloration of the nails. Relates of trying to cut in the past with regular nail cutters but nails were to thick to cut. Relates of concern with self treatment due to history of diabetes and concerns of cutting themselves. Pos hx of ASA therapy. Pain of 0-3/10 with shoe gear pressure. PCP is Dr. Solo and last ov was 03/04/2020. Denies any other changes to medical or surgical history since last ov. PMH, PSH, SOCH, ALL, MED, ROS was reviewed. Physical Exam: BP 122/70 Pulse 78 Ht 1.753 m (5' 9) Wt 77.1 kg (170 lb) BMI 25.1 kg/m2 Patient is alert and oriented x [...] Posterior Tibialis L 0/4 Dorsalis Pedis R 0/4 Posterior Tibialis R 0/4 Varicosities: pos Skin temp is warm to warm, proximal to distal Dependant Rubor: pos Hair growth: neg Cap refill of toes: immediate Edema: pos Pitting: (+2) bilat LE, feet and ankle Redness: pos Ecchymosis: neg Warmth: mild but no SOI Dermatological: Rash: neg Calluses: neg xerosis: pos Nails: left hallux toenail avulsion site is well healed with eschar and neg SOI. Thickened, with brownish/yellowish discoloration and subungal debris along with lysis and incurvated medial and lateral borders, gustavo of the right great and 2nd toenails. Extreme brittleness also present nails on bilat.Nails extend pass the distal aspect of the digits by greater than 1cm in a muna horn configuration.Pos mild POP nails 1-5 bilat. No SOI. Skin texture: atrophic and transparent. Pos atrophy of the plantar forefoot fat pad with prominent met heads bilateral feet. Neurological: Sensation to light touch with [employer] monofilament of all dermatomes : Neg of multiple locations of LE, foot and ankle Proprioception: Normal Vibratory sensation: Neg sensation Sharp/dull sensation: Decreased sensation sharp sensation on plantar feet Temperature sensation: Neg sensation Musculoskeletal: Max location of tenderness: Pos POP [...] xtended and flexed indicating a gastro-soleus equinus. Results for RYDER CABELLO ( ) as of 03/28/2020 15:58 Ref. Range 08/30/2019 15:05 03/04/2020 14:24 Hemoglobin A1c Latest Ref Range: 4.2 - 5.6 % 7.8 (H) 7.9 (H) Estimated Average Glucose Latest Units: mg/dL 177 180 Assessment: Encounter Diagnoses Name Primary? Type 2 diabetes mellitus with diabetic neuropathy, without long-term current use of insulin Yes ??? Onychogryphosis ??? Pain due to onychomycosis of toenail ??? Onychodystrophy ??? Onycholysis Treatment: Orders Placed This Encounter ??? CT REMOVAL OF NAIL PLATE Total ??? CT REMOVE ADDITIONAL NAIL PLATE Total ??? CT DEBRIDEMENT OF NAILS, 6 OR MORE - A comprehensive diabetic foot exam was performed today on bare feet including visual inspection, monofilament, and assessment of pulses. - Went over the last lab results with the pt. Discussed with pt good diabetic foot care and importance of maintaining diabetic control to prevent future complications. Pt was also given written info on diabetic foot health and diabetic neuropathy. - Due to general neuro exam results, hx of diabetes, age, and pt's symptoms I diagnosed pt with diabetic/peripheral neuropathy without EMG/NCV evaulation. - total nail avulsions were performed on the right great and 2nd toes, due to severity of neuropathy and lysis no anesthetic was needed, dressing was applied. - do antibiotic was given due to negative signs infection - Manual and mechanical debridement of remaining nails were performed to reduce 50% thickness and at least 5mm in length with slant back done on the borders to reduce pressure. -Pt and his daughter were informed of what to look for an infection such as redness, swelling, odor, drainage, pain etc and was instructed to call if there are any SOI or any changes that is concerning. -Pt will follow up in 6 months unless needed sooner. [employer]ESSING documented in this encounter Plan of Treatment Upcoming Encounters Date Type Department Care Team (Late st Contact Info) Description 04/07/2024 10:00 AM SUPERVISOR ELECTRON TUBE PROCESSING Office Visit [facility] - Family Medicine [address] [facility] [address] [place] [address] Evelin Blanco, JOS[employer] DES[employer]ING RANGE OPERATOR CHIEF [address] [facility] [address] [place], [place] [id number] 06/06/2024 2:00 PM CDT Office Visit [facility] Family Medicine [address] [facility] [address] [place] [address] [place] [address] [facility] [address] [place] [id number] documented as of this encounter Goals Goal Patient Goal Type Associated Problems Recent Progress Patient-Stated? Author Blood Pressure < 140/90 Blood Pressure 96/68(2023 2:34 PM SUPERVISOR ELECTRON TUBE PROCESSING) Rere Vargas Note: Caring for Your High [...] Where can I go for more information? [employer] National Center: http://www.americanheart.org 1. In the top header, click ? Conditions? . 2. In the top header, click ? high blood pressure.? 3. For a printable blood pressure tracker, scroll toward the bottom of the page to Related Tools, and click ? HBP Trackers.? 5-733-RIC-[place]- or ( ) National Heart, Lung and Blood [place]: http://www.nhlbi.nih.gov/health/infoctr/index.htm Blood Pressure < 140/90 Blood Pressure 96/68(2023 2:34 PM SUPERVISOR ELECTRON TUBE PROCESSING) Rere Vargas Note: Caring for Your High [...] Where can I go for more information? [employer] National Center: http://www.americanheart.org 1. In the top header, click ? Conditions? . 2. In the top header, click ? high blood pressure.? 3. For a printable blood pressure tracker, scroll toward the bottom of the page to Related Tools, and click ? HBP Trackers.? 7-208-HHC-[place]-1 or ( ) National Heart, Lung and Blood [place]: http://www.nhlbi.nih.gov/health/infoctr/index.htm Blood Pressure < 140/90 Blood Pressure 96/68(2023 2:34 PM SUPERVISOR ELECTRON TUBE PROCESSING) No Cassie Marie Note: Caring for Your [...] Where can I go for more information? [employer] National Center: http://www.americanheart.org 1. In the top header, click ? Conditions? . 2. In the top header, click ? high blood pressure.? 3. For a printable blood pressure tracker, scroll toward the bottom of the page to Related Tools, and click ? HBP Trackers.? 2-465-UZW-[place]-1 or ( ) National Heart, Lung and Blood [place]: http://www.nhlbi.nih.gov/health/infoctr/index.htm Exercise 5X per week (30 min per time) Exercise No Rere Kaufman Note: The [employer] recommends all adults [...] how to manage your diabetes: ? ? [employer] Diabetes Association: www.diabetes.org 0-984-JPZMDLGN ( ) ? ? [employer] Diabetes Association-Support group line: www.professional.diabetes.org ? ? [employer] Heart Association: www.heart.org or 0-629-QKF-[place]-1 ( ) [employer] Online Ordering MyPlate: www.KickSportmyplate.gov Have labs drawn Lifestyle Rere Vargas Note: [...] long-term current use of insulin (HCC)- Primary Onychogryphosis Other specified disease of nail Pain due to onychomycosis of toenail Pain in limb Onychodystrophy Other specified disease of nail Onycholysis Other specified disease of nail documented in this encounter Care Teams Interactive Art Director Relationship Specialty Start Date End Date Rosana Solo MD [address] [facility] [address] [place] [id number] PCP - Attributed-[facility] 02/19/19 [place] [id number] [facility] [address] [place] [address] Ophthalmology 04/06/16 documented as of this encounter
--- OUTSIDE RECORDS SUMMARY | 2024-04-03 01:00 | XMS_ITS | Encounter Summary ---
Author Organization [facility] Address [address] [facility] [place] [address] Care Team Providers Care Airport Operations Specialist Name Role Phone Ricco Andrew MD Unavailable [phone] Rosana Solo MD Unavailable [phone] Reason for Visit * Reason Comments Follow-up Diabetes Encounter Details Date Type Department Care Team (Late st Contact Info) Description 09/02/2020 1:45 PM CDT Office Visit [facility] - Family Medicine [address] [place] [id number] Rosana Solo MD [facility] [address] Type 2 diabetes mellitus with stage 3a chronic kidney disease, without long-term current use of insulin (HCC) (Primary Dx); Type 2 diabetes mellitus with diabetic neuropathy, without long-term current use of insulin (HCC); Alzheimer's dementia without behavioral disturbance, unspecified timing of dementia onset; Stage 3a chronic kidney disease (HCC); Hypothyroidism, adult; Constipation, unspecified constipation type; Skin-picking disorder Social History Tobacco Use Types [...] Time Taken Comments Blood Pressure 100/60 09/02/2020 1:56 PM CDT Pulse 84 09/02/2020 1:56 PM CDT Temperature 35.9 ??C (96.6 ??F) 09/02/2020 1:56 PM CD T Respiratory Rate 20 09/02/2020 1:56 PM CDT Oxygen Saturation 98% 09/02/2020 1:56 PM CDT Inhaled Oxygen Concentration - - Weight 74.2 kg (163 lb 9.6 oz) 09/02/2020 1:56 P M CDT Height 175.3 cm (5' 9) 09/02/2020 1:56 PM CDT Body Mass Index 24.16 09/02/2020 1:56 PM CDT documented in this encounter Patient Instructions * Patient Instructions* oRsana Solo MD - 09/02/2020 2:30 PM CDT Caring For Your Diabetes ?? Get labs done fasting in the next few weeks. Nothing to eat or drink, other than water, for at least 8 hours before having drawn. Orders printed to take to lab near you ?? Follow a diabetic diet with healthy meals that are low salt, low fat, high fiber. ?? For more information on a diabetic diet, please go to the [place] Diabetes Association website at www.diabetes.org and select [...] minutes if trying to lose weight) The [place] College of Sports Medicine recommends all adults [...] a healthy weight. Body mass index is 24.16 kg/m??. If your BMI (a ratio of your weight to your height) is over 25, it is recommended that you try to exercise and eat healthier in an effort to lose a few pounds ?? Continue current medications: Yes ?? Please call office during routine office hours if any questions or concerns. ?? See me in 6 months documented in this encounter Progress Notes * Rosana Solo MD - 09/02/2020 2:20 PM CDT SUBJECTIVE: Mk Sanches is a 85 year old white male here for follow up chronic issues Accompanied by daughter Diabetes type II with neuropathy: Glucose monitoring is performed occasionally. Blood glucoses mostly 160-180s. Was 234.. On glipizide 5 mg BID. Following DM diet: Gets meals on wheels. Eatsing well Last dilated eye exam: Had appointment 04/04/2020. We did not get report. No eye concerns Kidney disease?: Yes Neuropathy?: Yes. Denies complaints or numbness or pain On JAYDEN- I or ARB?: no. Stopped due to soft Bps. On Statin?: no. Well controlled without statin and has been declined in past due to some concern about dementia Diabetic ROS: no chest pain, dyspnea, no unusual visual symptoms, no new foot ulcers. Dementia/Alzheimers - on Namenda. Primarily short-term impairment. . intermediate accountant memory remains intact. Still likes to sleep. Mood ok Depression: PHQ-2:PHQ2 TOTAL SCORE: 0 PHQ-9: Skin picking -doing better. Hypothyroidism - on levothyroxine 75 mcg daily. Energy level ok. Using walker. Denies recent falls Has had occasional stomach pain per daughter. Some constipation Completed moderna series REVIEW OF SYSTEMS Constitutional: Denies fever, chills Ears, nose, mouth, and throat: Denies nasal discharge. Respiratory: Denies cough, dyspnea, wheezing Cardiovascular: Denies chest pain, palpitations, Gastrointestinal: Denies abdominal pain, nausea, vomiting, diarrhea, bloody stools or melena Neurological: Denies syncope, dizziness. Denies TIA or stroke-like symptoms Endocrine: Denies fatigue Past Medical History: Diagnosis Date ??? Benign hypertension with chronic kidney disease 02/05/2016 BP controlled off rx. resolved ??? Chronic renal failure ??? Dementia ??? Dermatitis ??? DM (diabetes mellitus) ??? HTN (hypertension) ??? Hx of rheumatic fever ??? Hypothyroid ??? Seasonal allergies ??? Trigger finger Body mass index is 24.16 kg/m??. Outpatient Medications Prior to Visit Medication Sig Dispense Refill ??? Acetaminophen (TYLENOL ARTHRITIS PAIN PO) Take 500 mg by mouth Two times a week ??? DIONICIO ASPIRIN REGIMEN PO Take 81 mg by mouth once daily ??? glipiZIDE (GLUCOTROL) 5 MG tablet Take 1 tablet by mouth 2 times daily 180 tablet 1 ??? glipiZIDE (GLUCOTROL) 5 MG tablet TAKE 1 TABLET BY MOUTH EVERY DAY BEFORE BREAKFAST 90 tablet 1 ??? ketoconazole (NIZORAL) 2 % [...] mini test strips) 100 strip 2 No facility-administered medications prior to visit. Allergies Allergen Reactions ??? Ibuprofen Other HE HAS CKD AND SHOULD NOT TAKE NSAID'S Past Surgical History: Procedure Laterality Date ??? NEGATIVE SURGICAL HISTORY Family History Family history unknown: Yes Social History Tobacco Use ??? Smoking status: Never Smoker ??? Smokeless tobacco: Current User Types: Chew Substance Use Topics ??? Alcohol use: No ??? Drug use: No OBJECTIVE: Physical Examination: Vitals: 09/02/20 1356 BP: 100/60 Pulse: 84 Resp: 20 Temp: 96.6 ??F (35.9 ??C) SpO2: 98% Weight: 74.2 kg (163 lb 9.6 oz) Height: 1.753 m (5' 9) Body mass index is 24.16 kg/m??. No exam data present CrCl cannot be calculated (Patient's most recent lab result is older than the maximum 15 days allowed.). General: alert, well appearing, and in no acute distress HEENT: Normocephalic atraumatic. PERRLA, EOMI, no conjunctivitis. Bilateral TM's and external ear canals normal. CV exam: regular rate and rhythm, normal S1 and S2, no murmurs, rubs, or gallops appreciated. Respiratory: clear to auscultation bilaterally, no wheezes, rales, or rhonchi, Good aeration. no tachypnea, retractions, or cyanosis Neuro: Alert and oriented x 1-2, Cranial nerves II-XII grossly intact except for decreased hearing.Grossly non-focal. abd - soft, nontender Psych/MSE: normal mood and affect. Decreased short-term memory, but pleasant Skin - hypopigmentations from prior skin picking scars, but no current scabs to arms or scalp Recent Labs Component Name 08/30/19 1505 03/02/18 1347 03/01/17 1419 CHOL 177 171 149 TRIG 177* 230* 97 HDL 41 39* 43 LDLCALC 101 86 87 Recent Labs Component Name 03/04/20 1424 08/30/19 1505 02/28/19 1622 HGBA1C 7.9* 7.8* 7.2* Recent Labs Component Name 03/04/20 1424 08/30/19 1505 08/29/18 1432 SODIUM 135* 137 137 POTASSIUM 4.4 4.7 4.6 CHLORIDE 99 103 104 CO2 26 23 23 BUN 22 27* 25 CREATININE 1.44* 1.67* 1.51* GLUCOSE 218* 180 168* 177 177* CALCIUM 8.5 9.0 9.1 ALBUMIN 3.7 4.2 4.1 ALKPHOS 74 78 69 ALT 11 16 12* AST 13 15 14 TBIL 0.3 0.2 0.3 TPROT 6.9 7.4 7.1 EGFR 47 40 45 Recent Labs Component Name 08/30/19 1505 03/02/18 1347 03/01/17 1419 MICROALBCREA NOT NEEDED 6 <7 ASSESSMENT & PLAN: Type 2 diabetes mellitus with stage 3a chronic kidney disease, without long-term current use of insulin - control fair. can tolerate slightly looser cotnrol given age and dementia. adjust as needed. Dm edu done. - Plan: HM RISK ADJUSTED VISIT, HEMOGLOBIN A1C W EAG, COMPREHENSIVE METABOLIC PANEL, CBC WITH DIFFERENTIAL, LIPID PROFILE REFLEX LDL DIRECT, MICROALB/CREAT RATIO URINE RANDOM PANEL Type 2 diabetes mellitus with diabetic neuropathy, without long-term current use of insulin - Plan:HM RISK ADJUSTED VISIT, HEMOGLOBIN A1C W EAG, COMPREHENSIVE METABOLIC PANEL, CBC WITH DIFFERENTIAL,LIPID PROFILE REFLEX LDL DIRECT, MICROALB/CREAT RATIO URINE RANDOM PANEL Alzheimer's dementia without behavioral disturbance, unspecified timing of dementia onset - memory relatively stable per daughter - Plan: HM RISK ADJUSTED VISIT Stage 3a chronic kidney disease - monitor. avoid dehydration. limit use of nsaids - Plan: HM RISK ADJUSTED VISIT, COMPREHENSIVE METABOLIC PANEL, MICROALB/CREAT RATIO URINE RANDOM PANEL Hypothyroidism, adult - euthyroid. monitor - Plan: RISK ADJUSTED VISIT, TSH Constipation, unspecified constipation type - can try fiber supplements and miralax. monitor - Plan: HM RISK ADJUSTED VISIT Skin-picking disorder - doing better recently - Plan: HM RISK ADJUSTED VISIT Diabetes Education Reviewed diabetic disease process, standards [...] 2 hr PP <180) ?? HgA1C goal <7% ?? If checking home bp, goal less than 140/90 on average, even better if <130/85 ?? Check feet daily for sores, dryness, cracking; use daily moisturizer if needed and invest in good shoes ?? See eye doctor at least once per year and have report sent to us Completed COVID vaccine. Just need dates to add to records Follow up in 6 months Or return to clinic sooner if persistent or worsening symptoms An After Visit Summary was printed and given to the patient. Rosana Solo MD documented in this encounter Plan of Treatment Upcoming Encounters Date Type Department Care Team (Late st Contact Info) Description 04/07/2024 10:00 AM AUTOMOTIVE ASSEMBLER Office Visit [facility] [id number] [place] [address] [address] [place] [address] Evelin Blanco, OUTSIDE REPAIRER SPECIAL-CHAIR INSPECTOR AND LEVELER [id number] [place] [address] [id number] 06/06/2024 2:00 PM CDT Office Visit [address] [id number] [place] [id number] [place] [address] [phone] Scheduled Orders Name Type Priority Associated Diagnoses Orde r Schedule HEMOGLOBIN A1C W EAG Lab Routine Type 2 diabetes mellitus with diabetic neuropathy, without long-term current use of insulin ([facility]) Type 2 diabetes mellitus with stage 3a chronic kidney disease, without long-term current use of insulin ([facility]) Ordered: 09/02/2020 COMPREHENSIVE METABOLIC PANEL Lab Routine Stage 3a chronic kidney disease (HCC) Type 2 diabetes mellitus with diabetic neuropathy, without long-term current use of insulin ([facility]) Type 2 diabetes mellitus with stage 3a chronic kidney disease, without long-term current use of insulin ([facility]) Ordered: 09/02/2020 CBC WITH DIFFERENTIAL Lab Routine Type 2 diabetes mellitus with diabetic neuropathy, without long-term current use of insulin (HCC) Type 2 diabetes mellitus with stage 3a chronic kidney disease, without long-term current use of insulin (HCC) Ordered: 09/02/2020 LIPID PROFILE REFLEX LDL DIRECT Lab Routine Type 2 diabetes mellitus with diabetic neuropathy, without long-term current use of insulin (HCC) Type 2 diabetes mellitus with stage 3a chronic kidney disease, without long-term current use of insulin (HCC) Ordered: 09/02/2020 MICROALB/CREAT RATIO URINE RANDOM PANEL Lab Routine Stage 3a chronic kidney disease (HCC) Type 2 diabetes mellitus with diabetic neuropathy, without long-term current use of insulin (HCC) Type 2 diabetes mellitus with stage 3a chronic kidney disease, without long-term current use of insulin (HCC) Ordered: 09/02/2020 TSH Lab Routine Hypothyroidism, adult Ordered: 09/02/2020 documented as of this encounter Goals Goal Patient Goal Type Associated Problems Recent Progress Patient-Stated? Author Blood Pressure < 140/90 Blood Pressure 96/68(2023 2:34 PM AUTOMOTIVE ASSEMBLER) Rere Vargas Note: Caring for Your High [...] Where can I go for more information? [place] Heart Association National Center: http://www.americanheart.org 1. In the top header, click ? Conditions? . 2. In the top header, click ? high blood pressure.? 3. For a printable blood pressure tracker, scroll toward the bottom of the page to Related Tools, and click ? HBP Trackers.? 3-781-YGB-USA-1 or ( ) National Heart, Lung and Blood [place]: http://www.nhlbi.nih.gov/health/infoctr/index.htm Blood Pressure < 140/90 Blood Pressure 96/68(2023 2:34 PM AUTOMOTIVE ASSEMBLER) Rere Vargas Note: Caring for Your High [...] Where can I go for more information? [place] Heart Association National Center: http://www.americanheart.org 1. In the top header, click ? Conditions? . 2. In the top header, click ? high blood pressure.? 3. For a printable blood pressure tracker, scroll toward the bottom of the page to Related Tools, and click ? HBP Trackers.? 6-078-MVN-USA-1 or ( ) National Heart, Lung and Blood [place]: http://www.nhlbi.nih.gov/health/infoctr/index.htm Blood Pressure < 140/90 Blood Pressure 96/68(2023 2:34 PM AUTOMOTIVE ASSEMBLER) Cassie Parks Note: Caring for Your High [...] Where can I go for more information? [place] Heart Association National Center: http://www.americanheart.org 1. In the top header, click ? Conditions? . 2. In the top header, click ? high blood pressure.? 3. For a printable blood pressure tracker, scroll toward the bottom of the page to Related Tools, and click ? HBP Trackers.? 9-266-LVN-USA-1 or ( ) National Heart, Lung and Blood [place]: http://www.nhlbi.nih.gov/health/infoctr/index.htm Exercise 5X per week (30 min per time) Exercise Rere Vargas Note: The [place] College [employer] Sports Medicine recommends all adults [...] how to manage your diabetes: ? ? [place] Diabetes Association: www.diabetes.org 9-454-ALFJJRIK ( ) ? ? [place] Diabetes Association-Support group line: www.professional.diabetes.org ? ? [place] Heart Association: www.heart.org or 0-746-HUE-USA-1 ( ) USDA MyPlate: www.choosemyplate.gov Have labs drawn Lifestyle No [...] (HCC)- Primary Type 2 diabetes mellitus with diabetic neuropathy, without long-term current use of insulin (HCC) Alzheimer's dementia without behavioral disturbance, unspecified timing of dementia onset (HCC) Stage 3a chronic kidney disease (HCC) Hypothyroidism, adult Other specified acquired hypothyroidism Constipation, unspecified constipation type Skin-picking disorder documented in this encounter Care Teams Airport Operations Specialist Relationship Specialty Start Date End Date Rosana Solo MD [address] [facility] [address] [place] [address] PCP - Attributed-[facility] 02/19/19 [place] [address] [facility] [address] [place] [phone] Ophthalmology 04/06/16 documented as of this encounter
--- OUTSIDE RECORDS SUMMARY | 2024-04-03 01:00 | XMS_ITS | Encounter Summary ---
Author Organization [facility] Address [address] [place] [address] Care Team Providers Care Engineering Instructor Name Role Phone Ricco Andrew MD Unavailable [phone] Rosana Solo MD Unavailable [phone] Fawn Ramon DPM Unavailable [phone] Reason for Visit * Reason Comments ER UC Follow-up rt foot swelling Encounter Details Date Type Department Care Team (Late st Contact Info) Description 01/24/2021 2:30 PM CDT Office Visit [facility] - Family Medicine [id number] [place] [address] [address] [place] [address] Evelin Blanco APRN-CNP [address] [facility] [address] [place] [address] Local skin infection (Primary Dx); Cellulitis, unspecified cellulitis site; Urinary tract infection without hematuria, site unspecified; Pneumonia due to infectious organism, unspecified laterality, unspecified part of lung; Stage 3a chronic kidney disease (HCC); Alzheimer's dementia without behavioral disturbance, unspecified timing of dementia onset Social History Tobacco Use Types Packs/Day Years [...] Reading Time Taken Comments Blood Pressure 118/60 01/24/2021 2:58 PM CDT Pulse 76 01/24/2021 2:58 PM CDT Temperature 36.6 ??C (97.9 ??F) 01/24/2021 2:58 PM CD T Respiratory Rate 16 01/24/2021 2:58 PM CDT Oxygen Saturation - - Inhaled Oxygen Concentration - - Weight 72.6 kg (160 lb) 01/24/2021 2:58 PM CDT Height 175.3 cm (5' 9) 01/24/2021 2:58 PM CDT Body Mass Index 23.63 01/24/2021 2:58 PM CDT documented in this encounter Patient Instructions * Patient Instructions* Evelin Blanco APRN-CNP - 01/24/2021 3:24 PM CDT Continue antibiotics. Due to kidney function keep the cephalexin at twice a day. Continue to clean with dial. No changes in the diabetes medication. No changes in any other rx. documented in this encounter Progress Notes * Evelin Blanco APRN-CNP - 01/24/2021 3:15 PM CDT SUBJECTIVE: Mk Sanches is a 85 year old male here for: Chief Complaint Patient presents with ??? ER UC Follow-up rt foot swelling Past Medical History: Diagnosis Date ??? Benign hypertension with chronic kidney disease 02/05/2016 BP controlled off rx. resolved ??? Chronic renal failure ??? Dementia ??? Dermatitis ??? DM (diabetes mellitus) ??? HTN (hypertension) ??? Hx of rheumatic fever ??? Hypothyroid ??? Seasonal allergies ??? Trigger finger HPI: Pt was here on 01-20-2021 for a hospital follow up from [facility] and was found to have elevated blood sugars and we were considering increasing the glucatrol but then his family complained of him being very sleep and he had pulled off the right 3rd toe nail and the toe and foot were, red, swollen and hot. He was sent back to [facility] ER and he did not have to stay but he was started on 2 antibiotics. Doing better, more alert. Family seems more content that on 01-20-2021. Cleaning the toe with dial soap. Daughter read the cephalexin wrong and has been giving him bid instead of qid but I calculated his CrCl and it is 39 so should get bid to tid so as the toe looks very good will have them continuebid. Blood sugars are better on the glucatrol twice a day. Up a little last night due to what he had eaten. They may have been higher due to infection in the foot. Since 01-21-2021. 157 at 845, 01-22-2201 150 at 1143 before lunch. 134 at bedtime. 01-23-2021 before lunch 134, last night after dinner 203 2 turkey hot dogs, mashed potatoes, mac and cheese. Today 1050this am 143. Pt was started on cephalexin 500 mg. Review of systems negative except as noted in the HPI Family and social history on file and reviewed. Current Outpatient Medications on File Prior to Visit Medication Sig Dispense Refill ??? Acetaminophen (TYLENOL ARTHRITIS PAIN PO) Take 500 mg by mouth Two times a week ??? albuterol HFA (PROVENTIL; VENTOLIN; PROAIR) 108 (90 Base) MCG/ACT inhaler as needed ??? amoxicillin-clavulanate (AUGMENTIN) 875-125 MG tablet ??? DIONICIO ASPIRIN REGIMEN PO Take 81 mg by mouth once daily ??? cephalexin (KEFLEX) 500 MG capsule ??? glipiZIDE (GLUCOTROL) 5 MG tablet Take [...] mini test strips)) 100 strip 2 ??? sulfamethoxazole-trimethoprim (BACTRIM DS; SEPTRA DS) 800-160 MG tablet No current facility-administered medications on file prior to visit. Allergies Allergen Reactions ??? Ibuprofen Other HE HAS CKD AND SHOULD NOT TAKE NSAID'S Social History Tobacco Use ??? Smoking status: Never Smoker ??? Smokeless tobacco: Current User Types: Chew Substance Use Topics ??? Alcohol use: No . OBJECTIVE: Vitals: 01/24/21 1458 BP: 118/60 Pulse: 76 Resp: 16 Temp: 97.9 ??F (36.6 ??C) Weight: 72.6 kg (160 lb) Height: 1.753 m (5' 9) Body mass index is 23.63 kg/m??. CRCL 39.43 General appearance - alert, well appearing, and [...] Throat: pink, moist mucous membranes, tonsils not enlarged Neck - trachea midline, no thyromegaly, supple, [...] warm, dry, no rashes in visible areas. 3rd right toenail has a clean, dry nail bed. No swelling in the toe. Trace swelling in the foot. Not red nor hot any longer. Neuro - PERRLA, CN ll through Xll intact. ASSESSMENT Encounter Diagnoses Name Primary? Local skin infection Yes ??? Cellulitis, unspecified cellulitis site ??? Urinary tract infection without hematuria, site unspecified ??? Pneumonia due to infectious organism, unspecified laterality, unspecified part of lung ??? Stage 3a chronic kidney disease ??? Alzheimer's dementia without behavioral disturbance, unspecified timing of dementia onset PLAN: No orders of the defined types were placed in this encounter. Continue antibiotics. Due to kidney function keep the cephalexin at twice a day. Continue to clean with dial. No changes in the diabetes medication. No changes in any other rx. Further recommendations pending the above results and patient's clinical course. Follow-up visit 03-04-2021 The patient indicates understanding of these issues and agrees with the plan. ER ASSEMBLER * Agustina Esqueda MA - 01/24/2021 3:03 PM CDT BP 118/60 (BP SITE: LEFT ARM, BP POSITION: SITTING, BP CUFF SIZE: 12) Temp 97.9 ??F (36.6 ??C) (Oral) Ht 1.753 m (5' 9) Wt 72.6 kg (160 lb) BMI 23.63 kg/m2 Pt is scheduled to have his Flu shot administered in 02/2021 ER ASSEMBLER documented in this encounter Plan of Treatment Upcoming Encounters Date Type Department Care Team (Late st Contact Info) Description 04/07/2024 10:00 AM SLIDER ASSEMBLER Office Visit [facility] [address] [facility] [address] [place] [address] Evelin Blanco APRN-CNP [address] [facility] [address] [place] [address] 06/06/2024 2:00 PM CDT Office Visit [facility] [address] [place] [address] [place] [address] [place] [address] [place] [phone] documented as of this encounter Goals Goal Patient Goal Type Associated Problems Recent Progress Patient-Stated? Author Blood Pressure < 140/90 Blood Pressure 96/68(2023 2:34 PM SLIDER ASSEMBLER) Rere Vargas Note: Caring for Your [...] Related Tools, and click ? HBP Trackers.? 0-572-ASQ-USA- or ( ) National Heart, Lung and Blood [place]: http://www.nhlbi.nih.gov/health/infoctr/index.htm Blood Pressure < 140/90 Blood Pressure 96/68(2023 2:34 PM SLIDER ASSEMBLER) Rere Vargas Note: Caring for Your [...] Related Tools, and click ? HBP Trackers.? 1-013-IWZ-USA-1 or ( ) National Heart, Lung and Blood [place]: http://www.nhlbi.nih.gov/health/infoctr/index.htm Blood Pressure < 140/90 Blood Pressure 96/68(2023 2:34 PM SLIDER ASSEMBLER) Cassie Parks Note: Caring for Your [...] Related Tools, and click ? HBP Trackers.? 5-416-NXN-USA-1 or ( ) National Heart, Lung and Blood [place]: http://www.nhlbi.nih.gov/health/infoctr/index.htm Exercise 5X per week (30 min per time) Exercise Rere Vargas Note: The [place] [employer] [...] diabetes: ? ? [place] Diabetes Association: www.diabetes.org 0-756-LWVOHIFY ( ) ? ? [place] Diabetes Association-Support group line: www.professional.diabetes.org ? ? [place] Heart Association: www.heart.org or 5-684-JPX-USA-1 ( ) [place] MyPlate: www.Q Chipmyplate.gov Have labs drawn Lifestyle No Rere Kaufman [...] as of this encounter Visit Diagnoses Diagnosis Local skin infection- Primary Unspecified local infection of skin and subcutaneous tissue Cellulitis, unspecified cellulitis site Urinary tract infection without hematuria, site unspecified Pneumonia due to infectious organism, unspecified laterality, unspecified part of lung Stage 3a chronic kidney disease (HCC) Alzheimer's dementia without behavioral disturbance, unspecified timing of dementia onset (HCC) documented in this encounter Care Teams Engineering Instructor Relationship Specialty Start Date End Date Rosana Solo MD [address] [facility] [address] [place] [phone] PCP - Attributed-[facility] 02/19/19 [place] [address] [facility] [address] [place] [address] Ophthalmology 04/06/16 [place] [address] [facility] [address] [place] [address] Podiatry 01/24/21 documented as of this encounter
--- OUTSIDE RECORDS SUMMARY | 2024-04-03 01:00 | XMS_ITS | Encounter Summary ---
Author Organization [facility] Address [address] [facility] [place] [address] Care Team Providers Care Aquatic Ecologist Name Role Phone Ricco Andrew MD Unavailable [phone] Rosana Solo MD Unavailable [phone] Reason for Visit * Reason Onset Date Comments Question 10/31/2020 Encounter Details Date Type Department Care Team (Late st Contact Info) Description 10/31/2020 Telephone [facility] - Family Medicine [address] [place] [address] Rosana Solo MD [facility] [address] Question Social History Tobacco Use [...] * Telephone Encounter - Alison Lowe - 10/31/2020 3:37 PM CDT Notified patient's daughter of recommendations from PCP, daughter Cassie Granados verbalized understanding. * Telephone Encounter - Rosana Solo MD - 10/31/2020 2:40 PM CDT Blood sugar is not too low or too high. I'm not concerned about it Please have daughter try to wake him up. If he is unable to arouse him or he seems a lot more confused than baseline, then I would agree with taking him to ER or UC for evaluation If she is able to arouse him and get him to interact normally with her, then ok to just monitor himfor the rest of the day and if concerns arise/persist, schedule acute visit with me or CONTROLLER COAL OR ORE tomorrow If pt is not eating, then hold his glipizide dose today to decrease risk of hypoglycemia. Glipizideshould always be taken with a meal, so do not take if not eating * Telephone Encounter - Kala Dc - 10/31/2020 1:31 PM CDT Daughter called stating that the pt's BS is 184. Pt has been sleep all day with no food. Daughter is worries and is requesting to know if pt should go to UC. documented in this encounter Plan of Treatment Upcoming Encounters Date Type Department Care Team (Late st Contact Info) Description 04/07/2024 10:00 AM PROCUREMENT MANAGER Office Visit [address] [place] [address] Evelin Blanco, SILVER MINER BLASTING-CRIPPLE CUTTER [address] [address] 06/06/2024 2:00 PM CDT Office Visit [address] [place] [address] [place] [id number] [place] [address] documented as of this encounter Goals Goal Patient Goal Type Associated Problems Recent Progress Patient-Stated? Author Blood Pressure < 140/90 Blood Pressure 96/68(2023 2:34 PM PROCUREMENT MANAGER) Rere Vargas Note: Caring for Your [...] can I go for more information? [place] Heart Association National Center: http://www.americanheart.org 1. In the top header, click ? Conditions? . 2. In the top header, click ? high blood pressure.? 3. For a printable blood pressure tracker, scroll toward the bottom of the page to Related Tools, and click ? HBP Trackers.? 6-053-ABJ-USA-1 or ( ) National Heart, Lung and Blood [place]: http://www.nhlbi.nih.gov/health/infoctr/index.htm Blood Pressure < 140/90 Blood Pressure 96/68(2023 2:34 PM PROCUREMENT MANAGER) Rere Vargas Note: Caring for Your [...] can I go for more information? [place] African Heart Association National Center: http://www.americanheart.org 1. In the top header, click ? Conditions? . 2. In the top header, click ? high blood pressure.? 3. For a printable blood pressure tracker, scroll toward the bottom of the page to Related Tools, and click ? HBP Trackers.? 0-621-IKK-USA-1 or ( ) National Heart, Lung and Blood [place]: http://www.nhlbi.nih.gov/health/infoctr/index.htm Blood Pressure < 140/90 Blood Pressure 96/68(2023 2:34 PM PROCUREMENT MANAGER) Cassie Parks Note: Caring for Your [...] can I go for more information? [place] African Heart Association National Center: http://www.americanheart.org 1. In the top header, click ? Conditions? . 2. In the top header, click ? high blood pressure.? 3. For a printable blood pressure tracker, scroll toward the bottom of the page to Related Tools, and click ? HBP Trackers.? 1-854-LOP-USA-1 or ( ) National Heart, Lung and Blood [place]: http://www.nhlbi.nih.gov/health/infoctr/index.htm Exercise 5X per week (30 min per time) Exercise No Rere Kaufman Note: The [place] College of Sports Medicine recommends all adults [...] to manage your diabetes: ? ? [place] African Diabetes Association: www.diabetes.org 8-131-HWNUZJUJ ( ) ? ? [place] African Diabetes Association-Support group line: www.professional.diabetes.org ? ? South African Heart Association: www.heart.org or 8-051-QOX-USA-1 ( ) Vizibility MyPlate: www.Rootstock Softwaremyplate.gov Have labs drawn Lifestyle Rere Vargas [...] on filedocumented in this encounter Care Teams Aquatic Ecologist Relationship Specialty Start Date End Date Rosana Solo MD [address] [place] [address] PCP - Attributed-[facility] 02/19/19 [place] [address] [facility] [address] [place] [address] Ophthalmology 04/06/16 documented as of this encounter
--- OUTSIDE RECORDS SUMMARY | 2024-04-03 01:00 | XMS_ITS | Encounter Summary ---
Author Organization [facility] Address [address] [place] [address] Care Team Providers Care Parts Counter Salesperson Name Role Phone Ricco Andrew MD Unavailable Rosana Solo MD Unavailable [phone] Encounter Details Date Type Department Care Team (Latest Contact Info) Description 03/04/2020 Travel Social History Tobacco Use Types Packs/Day [...] COVID-19? Unable to assess 03/04/2020 2:14 PM BODY COMPONENT ENGINEER documented as of this encounter Plan of Treatment Upcoming Encounters Date Type Department Care Team (Late st Contact Info) Description 04/07/2024 10:00 AM BODY COMPONENT ENGINEER Office Visit [facility] - Family Medicine [address] [facility] [address] [place] [address] Evelin Blanco, CONSULTING SALES MANAGER-PURCHASING AND FISCAL CLERK [address] [facility] [address] [place] [address] 06/06/2024 2:00 PM CDT Office Visit [facility] Family Medicine [address] [facility] [address] [place] [address] [place] [address] [facility] [address] [place] [phone] documented as of this encounter Goals Goal Patient Goal Type Associated Problems Recent Progress Patient-Stated? Author Blood Pressure < 140/90 Blood Pressure 96/68(2023 2:34 PM BODY COMPONENT ENGINEER) Rere Vargas Note: Caring for Your [...] Where can I go for more information? [place] Heart Association National Center: http://www.americanheart.org 1. In the top header, click ? Conditions? . 2. In the top header, click ? high blood pressure.? 3. For a printable blood pressure tracker, scroll toward the bottom of the page to Related Tools, and click ? HBP Trackers.? 0-398-LKT-USA- or ( ) National Heart, Lung and Blood [place]: http://www.nhlbi.nih.gov/health/infoctr/index.htm Blood Pressure < 140/90 Blood Pressure 96/68(2023 2:34 PM BODY COMPONENT ENGINEER) No Rere Kaufman Note: Caring for Your [...] Where can I go for more information? Pakistani Heart Association National Center: http://www.americanheart.org 1. In the top header, click ? Conditions? . 2. In the top header, click ? high blood pressure.? 3. For a printable blood pressure tracker, scroll toward the bottom of the page to Related Tools, and click ? HBP Trackers.? 1-843-AZA-USA-1 or ( ) National Heart, Lung and Blood [place]: http://www.nhlbi.nih.gov/health/infoctr/index.htm Blood Pressure < 140/90 Blood Pressure 96/68(2023 2:34 PM BODY COMPONENT ENGINEER) No Cassie Marie Note: Caring for [...] Where can I go for more information? Pakistani Heart Association National Center: http://www.americanheart.org 1. In the top header, click ? Conditions? . 2. In the top header, click ? high blood pressure.? 3. For a printable blood pressure tracker, scroll toward the bottom of the page to Related Tools, and click ? HBP Trackers.? 6-341-KBF-USA-1 or ( ) National Heart, Lung and Blood [place]: http://www.nhlbi.nih.gov/health/infoctr/index.htm Exercise 5X per week (30 min per time) Exercise Rere Vargas Note: The [place] College of Sports Medicine recommends all adults [...] how to manage your diabetes: ? ? [place] Diabetes Association: www.diabetes.org 8-254-YHHZYDXA ( ) ? ? Pakistani Diabetes Association-Support group line: www.professional.diabetes.org ? ? Pakistani Heart Association: www.heart.org or 9-751-LEQ-USA-1 ( ) Molcure MyPlate: www.ConnectSoftmyplate.gov Have labs drawn Lifestyle Rere Vargas Note: [...] on filedocumented in this encounter Care Teams Parts Counter Salesperson Relationship Specialty Start Date End Date Rosana Solo MD [address] [facility] [address] [place] [phone] PCP - Attributed-[facility] 02/19/19 [place] [address] [facility] [address] [place] [phone] Ophthalmology 04/06/16 documented as of this encounter
--- OUTSIDE RECORDS SUMMARY | 2024-04-03 01:00 | XMS_ITS | Encounter Summary ---
Author Organization [facility] Address [address] [facility] [place] [address] Care Team Providers Care Social Services Analyst Name Role Phone Ricco Andrew MD Unavailable [phone] Rosana Solo MD Unavailable [phone] Encounter Details Date Type Department Care Team (Late Contact Info) Description 04/10/2020 Orders Only [facility] - MOTOR VEHICLE REPRESENTATIVE [address] [place] [address], [address] [place] [address] Toño Ramos MD [address] [place] [address] [address] [place] [address] Need for vaccination Social History Tobacco [...] COVID-19? No / Unsure 03/28/2020 4:14 PM BACKPACKERS MANAGER documented as of this encounter Plan of Treatment Upcoming Encounters Date Type Department Care Team (Late Contact Info) Description 04/07/2024 10:00 AM BACKPACKERS MANAGER Office Visit [facility] [address] [facility] [address] [place] [address] Evelin Blanco APRN-CNP [address] [address] 06/06/2024 2:00 PM CDT Office Visit [facility] [address] [facility] [address] [place] [address] [place] [address] [facility] [address] [place] [address] documented as of this encounter Goals Goal Patient Goal Type Associated Problems Recent Progress Patient-Stated? Author Blood Pressure < 140/90 Blood Pressure 96/68(2023 2:34 PM BACKPACKERS MANAGER) Rere Vargas Note: Caring for Your [...] Where can I go for more information? [place] Heart Association National Center: http://www.americanheart.org 1. In the top header, click ? Conditions? . 2. In the top header, click ? high blood pressure.? 3. For a printable blood pressure tracker, scroll toward the bottom of the page to Related Tools, and click ? HBP Trackers.? 3-247-SRL-USA-1 or ( ) National Heart, Lung and Blood [place]: http://www.nhlbi.nih.gov/health/infoctr/index.htm Blood Pressure < 140/90 Blood Pressure 96/68(2023 2:34 PM BACKPACKERS MANAGER) Rere Vargas Note: Caring for Your [...] Where can I go for more information? [place] Heart Association National Center: http://www.americanheart.org 1. In the top header, click ? Conditions? . 2. In the top header, click ? high blood pressure.? 3. For a printable blood pressure tracker, scroll toward the bottom of the page to Related Tools, and click ? HBP Trackers.? 9-882-RIH-USA-1 or ( ) National Heart, Lung and Blood [place]: http://www.nhlbi.nih.gov/health/infoctr/index.htm Blood Pressure < 140/90 Blood Pressure 96/68(2023 2:34 PM BACKPACKERS MANAGER) Cassie Parks Note: Caring for Your [...] Where can I go for more information? [place] Heart Association National Center: http://www.americanheart.org 1. In the top header, click ? Conditions? . 2. In the top header, click ? high blood pressure.? 3. For a printable blood pressure tracker, scroll toward the bottom of the page to Related Tools, and click ? HBP Trackers.? 7-224-OBU-USA-1 or ( ) National Heart, Lung and Blood [place]: http://www.nhlbi.nih.gov/health/infoctr/index.htm Exercise 5X per week (30 min per time) Exercise Rere Vargas Note: The [place] College of Sports Medicine recommends all adults [...] how to manage your diabetes: ? ? [place] Diabetes Association: www.diabetes.org 9-178-SBIDVGCU ( ) ? ? [place] Diabetes Association-Support group line: www.professional.diabetes.org ? ? [place] Heart Association: www.heart.org or 0-520-JRO-USA-1 ( ) Little Black Bag MyPlate: www.Camstar Systemsmyplate.gov Have labs drawn Lifestyle No Rere [...] disease documented in this encounter Care Teams Social Services Analyst Relationship Specialty Start Date End Date Rosana Solo MD [address] [place] [address] PCP - Attributed-[facility] 02/19/19 [place] [address] [facility] [address] [place] [address] Ophthalmology 04/06/16 documented as of this encounter
--- OUTSIDE RECORDS SUMMARY | 2024-04-03 01:00 | XMS_ITS | Encounter Summary ---
Author Organization [facility] Address [address] [facility] [place] [place] [address] Care Team Providers Care Spindle Frame Carver Name Role Phone Ricco Andrew MD Unavailable [phone] Chauncey Herrera MD Unavailable [phone] Reason for Visit * Reason Comments Refill Request Encounter Details Date Type Department Care Team (Late st Contact Info) Description 09/19/2020 Refill [facility] - Family Medicine [id number] [place] [address] [facility] [address] [place] [address] Refill Request Social History Tobacco Use [...] encounter Miscellaneous Notes * Telephone Encounter - Chauncey Herrera MD - 09/19/2020 12:54 PM CDT Requested Prescriptions Signed Prescriptions Disp Refills ??? glipiZIDE (GLUCOTROL) 5 MG tablet 180 tablet 1 Sig: Take 1 (one) tablet by mouth 2 times daily, before breakfast and supper Authorizing Provider: CHUANCEY HERRERA Has been on rx BID for several months * Telephone Encounter - Alison Lowe - 09/19/2020 8:09 AM CDT Last OV: 09/02/2020 Next OV: 03/04/2021 Last refill: 03/06/2020 Requested Prescriptions Pending Prescriptions Disp Refills ??? glipiZIDE (GLUCOTROL) 5 MG tablet [Pharmacy Med Name: GLIPIZIDE 5 MG TABLET] 180 tablet 1 Sig: TAKE 1 TABLET BY MOUTH TWICE A DAY documented in this encounter Plan of Treatment Upcoming Encounters Date Type Department Care Team (Late st Contact Info) Description 04/07/2024 10:00 AM ADMINISTRATIVE OFFICER Office Visit [address] [address] Evelin Blanco APRN-SHOE LACER [id number] [place] [address] 06/06/2024 2:00 PM CDT Office Visit [facility] [id number] [place] [address] Chris Aden MD [id number] [place] [address] documented as of this encounter Goals Goal Patient Goal Type Associated Problems Recent Progress Patient-Stated? Author Blood Pressure < 140/90 Blood Pressure 96/68(2023 2:34 PM ADMINISTRATIVE OFFICER) Rere Vargas Note: Caring for Your [...] Where can I go for more information? [place]gy[place] Heart Association National Center: http://www.americanheart.org 1. In the top header, click ? Conditions? . 2. In the top header, click ? high blood pressure.? 3. For a printable blood pressure tracker, scroll toward the bottom of the page to Related Tools, and click ? HBP Trackers.? 0-813-FJG-USA-1 or ( ) National Heart, Lung and Blood [place]: http://www.nhlbi.nih.gov/health/infoctr/index.htm Blood Pressure < 140/90 Blood Pressure 96/68(2023 2:34 PM ADMINISTRATIVE OFFICER) Rere Vargas Note: Caring for Your [...] Where can I go for more information? [place] Heart Association National Center: http://www.americanheart.org 1. In the top header, click ? Conditions? . 2. In the top header, click ? high blood pressure.? 3. For a printable blood pressure tracker, scroll toward the bottom of the page to Related Tools, and click ? HBP Trackers.? 1-949-FAO-USA-1 or ( ) National Heart, Lung and Blood [place]: http://www.nhlbi.nih.gov/health/infoctr/index.htm Blood Pressure < 140/90 Blood Pressure 96/68(2023 2:34 PM ADMINISTRATIVE OFFICER) Cassie Parks Note: Caring for Your [...] Where can I go for more information? [place] Heart Association National Center: http://www.americanheart.org 1. In the top header, click ? Conditions? . 2. In the top header, click ? high blood pressure.? 3. For a printable blood pressure tracker, scroll toward the bottom of the page to Related Tools, and click ? HBP Trackers.? 7-577-OMZ-USA-1 or ( ) National Heart, Lung and Blood [place]: http://www.nhlbi.nih.gov/health/infoctr/index.htm Exercise 5X per week (30 min per time) Exercise No Rere Kaufman Note: The [place] College of Sports Medicine recommends all adults [...] how to manage your diabetes: ? ? [place] Diabetes Association: www.diabetes.org 7-399-APWWZKJE ( ) ? ? [place] Diabetes Association-Support group line: www.professional.diabetes.org ? ? [place] Heart Association: www.heart.org or 5-887-SIN-USA-1 ( ) SmartHub MyPlate: www.ClassPassmyplate.gov Have labs drawn Lifestyle No Rere Kaumfan Note: Caring for Your Diabetes Routine Testing [...] on filedocumented in this encounter Care Teams Spindle Frame Carver Relationship Specialty Start Date End Date Chauncey Herrera MD [address] [place] [address] PCP - Attributed-[facility] 02/19/19 [place] [address] [facility] [address] [facility] [address] [place] [address] Ophthalmology 04/06/16 documented as of this encounter
--- OUTSIDE RECORDS SUMMARY | 2024-04-03 01:00 | XMS_ITS | Encounter Summary ---
Author Organization [facility] Address [address] [facility] [place] [address] Care Team Providers Care Physician Surgeon Name Role Phone Ricco Andrew MD Unavailable Rosana Solo MD Unavailable [phone] Encounter Details Date Type Department Care Team (Latest Contact Info) Description 01/21/2021 Travel Social History Tobacco Use Types Packs/Day [...] st Contact Info) Description 04/07/2024 10:00 AM BLOCKER AUTOMATIC Office Visit [facility] - Family Medicine [address] [facility] [address] [place] [address] Evelin Blanco, JOSETTE-DENIS [address] [facility] [address] [place] [address] 06/06/2024 2:00 PM CDT Office Visit [facility] Family Medicine [address] [facility] [address] [place] [address] [place] [address] [facility] [address] [place] [address] documented as of this encounter Goals Goal Patient Goal Type Associated Problems Recent Progress Patient-Stated? Author Blood Pressure < 140/90 Blood Pressure 96/68(2023 2:34 PM BLOCKER AUTOMATIC) Rere Vargas Note: Caring for Your High [...] Where can I go for more information? Japanese Heart Association National Center: http://www.americanheart.org 1. In the top header, click ? Conditions? . 2. In the top header, click ? high blood pressure.? 3. For a printable blood pressure tracker, scroll toward the bottom of the page to Related Tools, and click ? HBP Trackers.? 1-732-EWW-USA-1 or ( ) National Heart, Lung and Blood [place]: http://www.nhlbi.nih.gov/health/infoctr/index.htm Blood Pressure < 140/90 Blood Pressure 96/68(2023 2:34 PM BLOCKER AUTOMATIC) Rere Vargas Note: Caring for Your High [...] Where can I go for more information? Japanese Heart Association National Center: http://www.americanheart.org 1. In the top header, click ? Conditions? . 2. In the top header, click ? high blood pressure.? 3. For a printable blood pressure tracker, scroll toward the bottom of the page to Related Tools, and click ? HBP Trackers.? 0-215-EIJ-USA-1 or ( ) National Heart, Lung and Blood [place]: http://www.nhlbi.nih.gov/health/infoctr/index.htm Blood Pressure < 140/90 Blood Pressure 96/68(2023 2:34 PM BLOCKER AUTOMATIC) No Cassie Marie Note: Caring for Your [...] Where can I go for more information? Japanese Heart Association National Center: http://www.americanheart.org 1. In the top header, click ? Conditions? . 2. In the top header, click ? high blood pressure.? 3. For a printable blood pressure tracker, scroll toward the bottom of the page to Related Tools, and click ? HBP Trackers.? 1-649-BTE-USA-1 or ( ) National Heart, Lung and Blood [place]: http://www.nhlbi.nih.gov/health/infoctr/index.htm Exercise 5X per week (30 min per time) Exercise No Rere Kaufman Note: The [employer] College of Sports Medicine recommends all adults [...] how to manage your diabetes: ? ? [place] Diabetes Association: www.diabetes.org 4-864-SLGEUGJN ( ) ? ? Japanese Diabetes Association-Support group line: www.professional.diabetes.org ? ? Japanese Heart Association: www.heart.org or 6-706-PNY-USA-1 ( ) MixRank MyPlate: www.Afterschool.memyplate.gov Have labs drawn Lifestyle Rere Vargas Note: [...] on filedocumented in this encounter Care Teams Physician Surgeon Relationship Specialty Start Date End Date Rosana Solo MD [address] [facility] [address] [place] [address] PCP - Attributed-[facility] 02/19/19 [place] [address] [facility] [address] [place] [address] Ophthalmology 04/06/16 documented as of this encounter
--- OUTSIDE RECORDS SUMMARY | 2024-04-03 01:01 | XMS_ITS | Encounter Summary ---
Author Organization [facility] Address [address] [facility] [place] [address] Care Team Providers Care Cna Pct Name Role Phone Ricco Andrew MD Unavailable [phone] Reason for Visit * Reason Comments Refill Request Encounter Details Date Type Department Care Team (Late st Contact Info) Description 01/06/2019 Refill [facility] - Family Medicine [id number] [place] [address] [place] [address] Pawan Holden, [address] [address] Refill Request Social History Tobacco Use [...] Miscellaneous Notes * Telephone Encounter - Ana Agudelo - 01/06/2019 3:51 PM CDT Mk Sanches Requested Prescriptions Pending Prescriptions Disp Refills ??? glipiZIDE (GLUCOTROL) 5 MG tablet [Pharmacy Med Name: GLIPIZIDE 5 MG TABLET] 90 tablet 0 Sig: TAKE 1 TABLET BY MOUTH DAILY BEFORE BREAKFAST REASONS: TYPE 2 DIABETES Allergies Allergen Reactions ??? Ibuprofen Other HE HAS CKD AND SHOULD NOT TAKE NSAID'S Last refill- *10/11/18 Last OV-*08/29/18 Future OV*02/28/19 documented in this encounter Plan of Treatment Upcoming Encounters Date Type Department Care Team (Late st Contact Info) Description 04/07/2024 10:00 AM PARKS AND RECREATION MANAGER Office Visit [facility] [id number] [place] [address] [address] [place] [address] Evelin Blanco, CLOSET ORGANIZER-PAPER STACKER [address] [facility] [address] [place] [address] 06/06/2024 2:00 PM CDT Office Visit [facility] [id number] [place] [address] [address] [place] [address] [place] Ad[place] [id number] [place] [address] [address] [place] [id number] documented as of this encounter Goals Goal Patient Goal Type Associated Problems Recent Progress Patient-Stated? Author Blood Pressure < 140/90 Blood Pressure 96/68(2023 2:34 PM PARKS AND RECREATION MANAGER) Rere Vargas Note: Caring for Your [...] Where can I go for more information? [employer] Heart Association National Center: http://www.americanheart.org 1. In the top header, click ? Conditions? . 2. In the top header, click ? high blood pressure.? 3. For a printable blood pressure tracker, scroll toward the bottom of the page to Related Tools, and click ? HBP Trackers.? 5-221-BXC-USA-1 or ( ) National Heart, Lung and Blood [place]: http://www.nhlbi.nih.gov/health/infoctr/index.htm Blood Pressure < 140/90 Blood Pressure 96/68(2023 2:34 PM PARKS AND RECREATION MANAGER) Rere Vargas Note: Caring for Your [...] Where can I go for more information? Austrian Heart Association National Center: http://www.americanheart.org 1. In the top header, click ? Conditions? . 2. In the top header, click ? high blood pressure.? 3. For a printable blood pressure tracker, scroll toward the bottom of the page to Related Tools, and click ? HBP Trackers.? 2-842-QIP-USA-1 or ( ) National Heart, Lung and Blood [place]: http://www.nhlbi.nih.gov/health/infoctr/index.htm Exercise 5X per week (30 min per time) Exercise Rere Vargas Note: The [employer] College of Sports Medicine recommends all adults [...] how to manage your diabetes: ? ? Austrian Diabetes Association: www.diabetes.org 6-231-SEWPFKVF ( ) ? ? Austrian Diabetes Association-Support group line: www.professional.diabetes.org ? ? [place] Heart Association: www.heart.org or 3-750-KOL-[facility]-1 ( ) [employer] MyPlate: www.REEL Qualifiedmyplate.gov Have labs drawn Lifestyle Rere Vargas Note: [...] on filedocumented in this encounter Care Teams Cna Pct Relationship Specialty [place] [address] [address] Ophthalmology 04/06/16 documented as of this encounter
--- OUTSIDE RECORDS SUMMARY | 2024-04-03 01:01 | XMS_ITS | Encounter Summary ---
Author Organization [facility] Address [address] [facility] [place] [address] Care Team Providers Care Latin Dancer Name Role Phone Ricco Andrew MD Unavailable [phone] Reason for Visit * Reason Comments Refill Request Encounter Details Date Type Department Care Team (Late st Contact Info) Description 01/31/2019 Refill [facility] - Family Medicine [address] [place] [address] Rosana Solo MD [address] [address] Refill Request Social History Tobacco Use [...] * Telephone Encounter - Ana Agudelo - 01/31/2019 1:14 PM CST Mk Sanches Requested Prescriptions Pending Prescriptions Disp Refills ??? lisinopril (PRINIVIL; ZESTRIL) 2.5 MG tablet [Pharmacy Med Name: LISINOPRIL 2.5 MG TABLET] 90 tablet 1 Sig: TAKE 1 TAB BY MOUTH ONCE DAILY REASONS: DIABETIC KIDNEY PROTECTION Allergies Allergen Reactions ??? Ibuprofen Other HE HAS CKD AND SHOULD NOT TAKE NSAID'S Last refill- *08/10/18 Last OV-08/29/18 Future OV*02/28/19 PING AGENT documented in this encounter Plan of Treatment Upcoming Encounters Date Type Department Care Team (Late st Contact Info) Description 04/07/2024 10:00 AM SHIPPING AGENT Office Visit [facility] [address] [facility] [address] [place] [address] Evelin Blanco APRN-DENIS [address] [address] 06/06/2024 2:00 PM CDT Office Visit [facility] [id number] [place] [address] [address] [place] [address] [place] [address] [facility] [address] [phone] documented as of this encounter Goals Goal Patient Goal Type Associated Problems Recent Progress Patient-Stated? Author Blood Pressure < 140/90 Blood Pressure 96/68(2023 2:34 PM SHIPPING AGENT) Rere Vargas Note: Caring for Your [...] Where can I go for more information? [place] Heart Association National Center: http://www.americanheart.org 1. In the top header, click ? Conditions? . 2. In the top header, click ? high blood pressure.? 3. For a printable blood pressure tracker, scroll toward the bottom of the page to Related Tools, and click ? HBP Trackers.? 7-096-YXV-USA-1 or ( ) National Heart, Lung and Blood [place]: http://www.nhlbi.nih.gov/health/infoctr/index.htm Blood Pressure < 140/90 Blood Pressure 96/68(2023 2:34 PM SHIPPING AGENT) Rere Vargas Note: Caring for Your [...] Where can I go for more information? [place] Heart Association National Center: http://www.americanheart.org 1. In the top header, click ? Conditions? . 2. In the top header, click ? high blood pressure.? 3. For a printable blood pressure tracker, scroll toward the bottom of the page to Related Tools, and click ? HBP Trackers.? 4-102-ZNZ-USA-1 or ( ) National Heart, Lung and Blood [place]: http://www.nhlbi.nih.gov/health/infoctr/index.htm Exercise 5X per week (30 min per time) Exercise No Rere Kaufman Note: The [place] College of Sports Medicine recommends all adults [...] how to manage your diabetes: ? ? [place] Diabetes Association: www.diabetes.org 6-617-GCAJZFDZ ( ) ? ? [place] Diabetes Association-Support group line: www.professional.diabetes.org ? ? [place] Heart Association: www.heart.org or 9-301-WOM-USA-1 ( ) [place] MyPlate: www.Topixmyplate.gov Have labs drawn Lifestyle Rere Vargas Note: [...] on filedocumented in this encounter Care Teams Latin Dancer Relationship Specialty [place] [address] [address] Ophthalmology 04/06/16 documented as of this encounter
--- OUTSIDE RECORDS SUMMARY | 2024-04-03 01:01 | XMS_ITS | Encounter Summary ---
Author Organization [facility] Address [address] [facility] [address] Care Team Providers Care Aba Therapist Name Role Phone Ricco Andrew MD Unavailable Rosana Solo MD Unavailable [phone] Encounter Details Date Type Department Care Team (Latest Contact Info) Description 10/04/2019 Travel Social History Tobacco Use Types Packs/Day [...] have Coronavirus / COVID-19? No / Unsure 10/04/2019 11:38 AM CDT documented as of this encounter Plan of Treatment Upcoming Encounters Date Type Department Care Team (Late st Contact Info) Description 04/07/2024 10:00 AM MOISTURE METER READER Office Visit [facility] - Family Medicine [address] [facility] [address] [place] [address] Evelin Blanco, OVERHEAD CRANE INSPECTOR-DENIS [address] [facility] [address] [place] [address] 06/06/2024 2:00 PM CDT Office Visit [facility] Family Medicine [address] [facility] [address] [place] [address] [place] [address] [facility] [address] [place] [address] [place] [address] documented as of this encounter Goals Goal Patient Goal Type Associated Problems Recent Progress Patient-Stated? Author Blood Pressure < 140/90 Blood Pressure 96/68(2023 2:34 PM MOISTURE METER READER) Rere Vargas Note: Caring for Your High [...] Where can I go for more information? [place]aur[place] Heart Association National Center: http://www.americanheart.org 1. In the top header, click ? Conditions? . 2. In the top header, click ? high blood pressure.? 3. For a printable blood pressure tracker, scroll toward the bottom of the page to Related Tools, and click ? HBP Trackers.? 1-642-GXG-USA- or ( ) National Heart, Lung and Blood [place]: http://www.nhlbi.nih.gov/health/infoctr/index.htm Blood Pressure < 140/90 Blood Pressure 96/68(2023 2:34 PM MOISTURE METER READER) No Rere Kaufman Note: Caring for Your [...] Where can I go for more information? [place]aur[place] Heart Association National Center: http://www.americanheart.org 1. In the top header, click ? Conditions? . 2. In the top header, click ? high blood pressure.? 3. For a printable blood pressure tracker, scroll toward the bottom of the page to Related Tools, and click ? HBP Trackers.? 1-988-WJU-USA-1 or ( ) National Heart, Lung and Blood [place]: http://www.nhlbi.nih.gov/health/infoctr/index.htm Blood Pressure < 140/90 Blood Pressure 96/68(2023 2:34 PM MOISTURE METER READER) No Cassie Marie Note: Caring for Your [...] Where can I go for more information? [place]aur[place] Heart Association National Center: http://www.americanheart.org 1. In the top header, click ? Conditions? . 2. In the top header, click ? high blood pressure.? 3. For a printable blood pressure tracker, scroll toward the bottom of the page to Related Tools, and click ? HBP Trackers.? 6-622-DRD-USA-1 or ( ) National Heart, Lung and Blood [place]: http://www.nhlbi.nih.gov/health/infoctr/index.htm Exercise 5X per week (30 min per time) Exercise Rere Vargas Note: The [place]aur[place] College of Sports Medicine recommends all adults [...] how to manage your diabetes: ? ? [place]aur[place] Diabetes Association: www.diabetes.org 2-352-SNDJDSHC ( ) ? ? [place]aur[place] Diabetes Association-Support group line: www.professional.diabetes.org ? ? [place] Heart Association: www.heart.org or 6-803-ZFL-USA-1 ( ) Cli[employer] MyPlate: www.Lastlinemyplate.gov Have labs drawn Lifestyle Rere Vargas Note: [...] on filedocumented in this encounter Care Teams Aba Therapist Relationship Specialty Start Date End Date Rosana Solo MD [address] [facility] [address] [place] [address] PCP - Attributed-[facility] 02/19/19 [place] [address] [facility] [address] [place] [address] Ophthalmology 04/06/16 documented as of this encounter
--- OUTSIDE RECORDS SUMMARY | 2024-04-03 01:01 | XMS_ITS | Encounter Summary ---
Author Organization [facility] Address [address] [place] [address] Care Team Providers Care Beer Merchant Name Role Phone Ricco Andrew MD Unavailable [phone] Rosana Solo MD Unavailable [phone] Reason for Visit * Reason Comments Follow-up Diabetes Encounter Details Date Type Department Care Team (Late st Contact Info) Description 03/04/2020 2:00 PM PIPE STRESS ENGINEER Office Visit [facility] - Family Medicine [address] [place], [place] [id number] Rosana Solo MD [facility] [address] Type 2 diabetes mellitus with diabetic neuropathy, unspecified whether technician terminal and repeater insulin use (HCC) (Primary Dx); Type 2 diabetes mellitus with stage 3a chronic kidney disease, without long-term current use of insulin (HCC); Diabetic eye exam (HCC); Alzheimer's dementia without behavioral disturbance, unspecified timing of dementia onset; Hypothyroidism, adult; Stage 3a chronic kidney disease (HCC); Skin-picking disorder Social History Tobacco Use Types [...] COVID-19? Unable to assess 03/04/2020 2:14 PM PIPE STRESS ENGINEER documented as of this encounter Last Filed Vital Signs Vital Sign Reading Time Taken Comments Blood Pressure 124/68 03/04/2020 1:39 PM PIPE STRESS ENGINEER Pulse 84 03/04/2020 1:39 PM PIPE STRESS ENGINEER Temperature 36 ??C (96.8 ??F) 03/04/2020 1:39 PM PIPE STRESS ENGINEER Respiratory Rate 20 03/04/2020 1:39 PM PIPE STRESS ENGINEER Oxygen Saturation - - Inhaled Oxygen Concentration - - Weight 77.1 kg (170 lb) 03/04/2020 1:39 PM PIPE STRESS ENGINEER Height 175.3 cm (5' 9) 03/04/2020 1:39 PM PIPE STRESS ENGINEER Body Mass Index 25.1 03/04/2020 1:39 PM PIPE STRESS ENGINEER documented in this encounter Patient Instructions * Patient Instructions* Rosana Solo MD - 03/04/2020 2:11 PM PIPE STRESS ENGINEER Caring For Your Diabetes ?? Follow a diabetic diet with healthy meals that are low salt, low fat, high fiber. For more information on a diabetic diet, please go to the [place]e Diabetes Association website at www.diabetes.org and select the Food&Fitness tab ?? Home blood sugar monitoring and goals [...] minutes if trying to lose weight) The [place] College of Sports Medicine recommends [...] a healthy weight. Body mass index is 25.1 kg/m??. If your BMI (a ratio of your weight to your height) is over 25, it is recommended that you try to exercise and eat healthier in an effort to lose a few pounds ?? Continue current medications: Yes ?? Please call office during routine office hours if any questions or concerns. ?? After hours you may contact us through the exchange at for more significant issues. ?? See me in 6 months STRESS ENGINEER documented in this encounter Progress Notes * Rosana Solo MD - 03/04/2020 1:49 PM CST SUBJECTIVE: Mk Sanches is a 84 year old white male here for follow up chronic issues Accompanied by daughter Diabetes type II with neuropathy: Glucose monitoring is performed occasionally. Blood glucoses mostly 150s. On glipizide 5 mg daily. Following DM diet: Gets meals on wheels. Eats well. No missed meals Last dilated eye exam: On hold due to pandemic. Has appointment 04/04/2020 Kidney disease?: Yes Neuropathy?: Yes. Denies complaints or numbness or pain On JAYDEN- I or ARB?: yes. On lisinopril for renal protection On Statin?: no. Well controlled without statin and has been declined in past due to some concern about dementia Diabetic ROS: no chest pain, dyspnea, no unusual visual symptoms, no new foot ulcers. Dementia/Alzheimers - on Namenda. Primarily short-term impairment. . extermination inspector memory remains intact. Still likes to sleep alot Denies depression. Mood ok Skin picking - healing, but some spots on top or head and on nose Hypothyroidism - on levothyroxine 75 mcg daily. Energy level ok. Some unsteady gait. Some falls, but no injury. Uses cane or walker. Note peeing as much. No discomfort. Pees fine at night, just does not seem to pee very often duringday. Denies straining. Drinks plenty or fluid. Denies straining to urination Denies chest pain, palpitations. Denies abdominal pain, vomiting, diarrhea Denies near syncope or dizzinesss Denies depression or anxiety Denies concerns today per pt. Daughter's concern about urination above Past Medical History: Diagnosis Date ??? Benign hypertension with chronic kidney disease 02/05/2016 BP controlled off rx. resolved ??? Chronic renal failure ??? Dementia ??? Dermatitis ??? DM (diabetes mellitus) ??? HTN (hypertension) ??? Hx of rheumatic fever ??? Hypothyroid ??? Seasonal allergies ??? Trigger finger Body mass index is 25.1 kg/m??. Outpatient Medications Prior to Visit Medication Sig Dispense Refill ??? Acetaminophen (TYLENOL ARTHRITIS PAIN PO) Take 500 mg by mouth Two times a week ??? DIONICIO ASPIRIN REGIMEN PO Take 81 mg by mouth once daily ??? glipiZIDE (GLUCOTROL) 5 MG tablet TAKE [...] Drug use: No OBJECTIVE: Physical Examination: Vitals: 03/04/20 1339 BP: 124/68 Pulse: 84 Resp: 20 Temp: 96.8 ??F (36 ??C) Weight: 77.1 kg (170 lb) Height: 1.753 m (5' 9) Body mass index is 25.1 kg/m??. No exam data present CrCl cannot [...] Decreased short-term memory, but pleasant Skin - healing scab on scalp and on nose. No scabs to rest of head and arms.. no obvious actinic changes to scalp or face. However, pt fair skinned with areas of significant hypopigmentation from prior skin picking Recent Labs Component Name 08/30/19 1505 03/02/18 1347 03/01/17 1419 CHOL 177 171 149 TRIG 177* 230* 97 HDL 41 39* 43 LDLCALC 101 86 87 Recent Labs Component Name 08/30/19 1505 02/28/19 1622 08/29/18 1432 HGBA1C 7.8* 7.2* 7.4* Recent Labs Component Name 08/30/19 1505 02/28/19 1622 08/29/18 1432 03/02/18 1347 SODIUM 137 - 137 136 POTASSIUM 4.7 - 4.6 4.3 CHLORIDE 103 - 104 104 CO2 23 - 23 26 BUN 27* - 25 16 CREATININE 1.67* - 1.51* 1.50* GLUCOSE 168* 177 160 177* 149* CALCIUM 9.0 - 9.1 8.4* ALBUMIN 4.2 - 4.1 3.5 ALKPHOS 78 - 69 85 ALT 16 - 12* 17 AST 15 - 14 6 TBIL 0.2 - 0.3 0.2 TPROT 7.4 - 7.1 7.3 EGFR 40 - 45 45 Recent Labs Component Name 08/30/19 1505 03/02/18 1347 03/01/17 1419 MICROALBCREA NOT NEEDED 6 <7 ASSESSMENT & PLAN: Type 2 diabetes mellitus with diabetic neuropathy, unspecified whether correction insulin use - Hgb A1c goal <8, better if <7.5. avoid tight control due to dementia. adjust as needed - Plan: AMBREFERRAL TO OPHTHALMOLOGY Type 2 diabetes mellitus with stage 3a chronic kidney disease, without long-term current use of insulin - Plan: AMB REFERRAL TO OPHTHALMOLOGY Diabetic eye exam - Plan: AMB REFERRAL TO OPHTHALMOLOGY Alzheimer's dementia without behavioral disturbance, unspecified timing of dementia onset - stable.monitor Hypothyroidism, adult - clinically euthyroid. adjust as needed Stage 3a chronic kidney disease Skin-picking disorder - waxes adn wanes. no signs of infection. I wonder if pt could be picking offAKs, but no obvious actinic changes to scalp. monitor Has walker and has been using more at home. Still fall risk. Offered referral for for PT for gait and balance training. They will think about it but defer for now Follow up in 6 months Or return to clinic sooner if persistent or worsening symptoms An After Visit Summary was printed and given to the patient. Rosana Solo MD STRESS ENGINEER documented in this encounter Plan of Treatment Upcoming Encounters Date Type Department Care Team (Late st Contact Info) Description 04/07/2024 10:00 AM PIPE STRESS ENGINEER Office Visit [address] [address] Evelin Blanco, ELECTRODE CLEANING MACHINE OPERATOR-DELPHI PROGRAMMER [id number] [place] [address] 06/06/2024 2:00 PM CDT Office Visit [address] [address] Chris Aden MD [address] [place] [address] documented as of this encounter Goals Goal Patient Goal Type Associated Problems Recent Progress Patient-Stated? Author Blood Pressure < 140/90 Blood Pressure 96/68(12/16/ 2024 2:34 PM PIPE STRESS ENGINEER) Rere Vargas Note: Caring for Your [...] Related Tools, and click ? HBP Trackers.? 1-927-OPP-USA-1 or ( ) National Heart, Lung and Blood [place]: http://www.nhlbi.nih.gov/health/infoctr/index.htm Blood Pressure < 140/90 Blood Pressure 96/68(2023 2:34 PM PIPE STRESS ENGINEER) Rere Vargas Note: Caring for Your [...] Related Tools, and click ? HBP Trackers.? 3-033-ODR-USA-1 or ( ) National Heart, Lung and Blood [place]: http://www.nhlbi.nih.gov/health/infoctr/index.htm Blood Pressure < 140/90 Blood Pressure 96/68(2023 2:34 PM PIPE STRESS ENGINEER) Cassie Parks Note: Caring for Your [...] Related Tools, and click ? HBP Trackers.? 1-932-HOP-USA-1 or ( ) National Heart, Lung and Blood [place]: http://www.nhlbi.nih.gov/health/infoctr/index.htm Exercise 5X per week (30 min per time) Exercise No Rere Kaufman Note: The [place] College of Sports Medicine [...] diabetes: ? ? [place] Diabetes Association: www.diabetes.org 2-839-RLEMHNPS ( ) ? ? [place]e Diabetes Association-Support group line: www.professional.diabetes.org ? ? [place] Heart Association: www.heart.org or 8-826-DCJ-USA-1 ( ) Cumu[employer] MyPlate: www.Bulsara Advertisingmyplate.gov Have labs drawn Lifestyle Rere Varags Note: Caring for Your Diabetes Routine Testing [...] diabetes mellitus with diabetic neuropathy, unspecified whether correction insulin use (HCC)- Primary Type 2 diabetes mellitus with stage 3a chronic kidney disease, without long-term current use of insulin (HCC) Diabetic eye exam (HCC) Examination of eyes and vision Alzheimer's dementia without behavioral disturbance, unspecified timing of dementia onset (HCC) Hypothyroidism, adult Other specified acquired hypothyroidism Stage 3a chronic kidney disease (HCC) Skin-picking disorder documented in this encounter Care Teams Beer Merchant Relationship Specialty Start Date End Date Rosana Solo MD [address] [facility] [address] [place] [address] PCP - Attributed-[facility] 02/19/19 [place] [address] [facility] [address] [place] [phone] Ophthalmology 04/06/16 documented as of this encounter
--- OUTSIDE RECORDS SUMMARY | 2024-04-03 01:01 | XMS_ITS | Encounter Summary ---
Author Organization [facility] Address [address] [facility] [place] [address] Care Team Providers Care Environmental Health Aide Name Role Phone Ricco Andrew MD Unavailable [phone] Rosana Solo MD Unavailable [phone] Reason for Visit * Reason Comments Refill Request Encounter Details Date Type Department Care Team (Late st Contact Info) Description 08/10/2019 Refill [facility] - Family Medicine [address] [place], [place] [id number] Rosana Solo MD [address] [place] [phone] Refill Request Social History Tobacco Use [...] * Telephone Encounter - Mio Lowesri - 08/10/2019 11:34 AM CDT Last OV: 02/28/2019 Next OV: 08/30/2019 Last refill: Requested Prescriptions Pending Prescriptions Disp Refills ??? levothyroxine (SYNTHROID) 75 MCG tablet [Pharmacy Med Name: LEVOTHYROXINE 75 MCG TABLET] 90 tablet 1 Sig: TAKE 1 TABLET BY MOUTH EVERY MORNING documented in this encounter Plan of Treatment Upcoming Encounters Date Type Department Care Team (Radha st Contact Info) Description 04/07/2024 10:00 AM BIOSTATISTICS TEACHER Office Visit [facility] [id number] [place] [address] [address] [place], [place] [phone] Evelin Blanco APRN-DENIS [address] [facility] [address] [place] [address] 06/06/2024 2:00 PM CDT Office Visit [facility] [id number] [place] [address] [address] [place] [address] [place] [address] [facility] [address] [place] [address] documented as of this encounter Goals Goal Patient Goal Type Associated Problems Recent Progress Patient-Stated? Author Blood Pressure < 140/90 Blood Pressure 96/68(2023 2:34 PM BIOSTATISTICS TEACHER) Rere Vargas Note: Caring for Your [...] Related Tools, and click ? HBP Trackers.? 2-252-KSA-USA-1 or ( ) National Heart, Lung and Blood [place]: http://www.nhlbi.nih.gov/health/infoctr/index.htm Blood Pressure < 140/90 Blood Pressure 96/68(2023 2:34 PM BIOSTATISTICS TEACHER) Rere Vargas Note: Caring for Your [...] Related Tools, and click ? HBP Trackers.? 6-519-YMW-USA- or ( ) National Heart, Lung and Blood [place]: http://www.nhlbi.nih.gov/health/infoctr/index.htm Blood Pressure < 140/90 Blood Pressure 96/68(2023 2:34 PM BIOSTATISTICS TEACHER) Cassie Parks Note: Caring for Your [...] Related Tools, and click ? HBP Trackers.? 1-729-UML-USA- or ( ) National Heart, Lung and Blood [place]: http://www.nhlbi.nih.gov/health/infoctr/index.htm Exercise 5X per week (30 min [...] diabetes: ? ? [place] Diabetes Association: www.diabetes.org 3-797-LHRLEDRX ( ) ? ? Mac[place] Diabetes Association-Support group line: www.professional.diabetes.org ? ? [place] Heart Association: www.heart.org or 6-908-OLL-USA-1 ( ) [employer] MyPlate: www.GeriJoymyplate.gov Have labs drawn Lifestyle Rere Vargas Note: [...] on filedocumented in this encounter Care Teams Environmental Health Aide Relationship Specialty Start Date End Date Rosana Solo MD [address] [facility] [address] [place] [phone] PCP - Attributed-[facility] 02/19/19 [place] [address] [facility] [address] [place] [address] Ophthalmology 04/06/16 documented as of this encounter
--- OUTSIDE RECORDS SUMMARY | 2024-04-03 01:01 | XMS_ITS | Encounter Summary ---
Author Organization [facility] Address [address] [facility] [place] [address] Care Team Providers Care Shear Helper Name Role Phone Ricco Andrew MD Unavailable [phone] Rosana Solo MD Unavailable [phone] Reason for Visit * Reason Comments ER UC Follow-up Encounter Details Date Type Department Care Team (Late st Contact Info) Description 10/13/2019 11:15 AM CDT Office Visit [facility] - Family Medicine [address] [place], [place] [phone] Rosana Solo MD [address] [facility] [address] [place] [address] Fall, subsequent encounter (Primary Dx); Laceration of right foot, subsequent encounter; Visit for suture removal; Hypotension, unspecified hypotension type; Alzheimer's dementia without behavioral disturbance, unspecified timing [...] have Coronavirus / COVID-19? No / Unsure 10/11/2019 8:02 AM CDT documented as of this encounter Last Filed Vital Signs Vital Sign Reading Time Taken Comments Blood Pressure 98/60 10/13/2019 12:08 PM CDT by Pulse 80 10/13/2019 12:08 PM CDT Temperature 37.2 ??C (98.9 ??F) 10/13/2019 11:28 AM C DT Respiratory Rate 20 10/13/2019 11:28 AM CDT Oxygen Saturation - - Inhaled Oxygen Concentration - - Weight 78.6 kg (173 lb 3.2 oz) 10/13/2019 11:28 AM CDT Height 165.1 cm (5' 5) 10/13/2019 11:28 AM CDT Body Mass Index 28.82 10/13/2019 11:28 AM CDT documented in this encounter Patient Instructions * Patient Instructions* Rosana Solo MD - 10/13/2019 12:30 PM CDT Stop lisinopril due to soft blood pressure reading. Lower BP can make you feel tired and lightheaded, especially on standing Patient Education Stitches Removal CUTTING MACHINE TENDER HELPER: What you need to know about stitches removal: Stitches are usually removed within 10-14 days, depending on the location of the wound. Your healthcare provider will tell you when to return to have your stitches removed. Your provider will use sterile forceps or tweezers to crab picker the knot of each st itch. He or she will cut the stitch with scissors and pull the stitch out. You may feel a slight tug as the stitch comes out. Seek care immediately if: ?? Your wound splits open or is starting to come apart. ?? You suddenly cannot move your injured joint. ?? You have sudden numbness around your wound. ?? You see red streaks coming from your wound. Contact your healthcare provider if: ?? You have a fever and chills. ?? Your wound is red, warm, swollen, or leaking pus. ?? There is a bad smell coming from your wound. ?? You have increased pain in the wound area. ?? You have questions or concerns about your condition or care. Care for the area after the stitches are removed: ?? Do not pull medical tape off. Your provider may place small strips of medical tape across your wound after the stitches have been removed. These strips will peel and fall of on their own. Do not pull them off. ?? Clean the area as directed. Carefully wash the area with soap and water. Pat the area dry with aclean towel. Check the area for signs of infection, such as redness, swelling, or pus. Also check that the wound is not coming apart. ?? Protect your wound. Your wound can swell, bleed, or split open if it is stretched or bumped. Youmay need to wear a bandage that supports your wound until it is completely healed. ?? Care for a scar. You may have a scar after the stitches are removed. Use sunblock if the area isexposed to the sun. Apply it every day after the stitches are removed. This will help prevent skin discoloration. Talk to your healthcare provider about medicines you can use to make the scar less visible. Some medicines are available without a prescription. Follow up with your healthcare provider as directed: You may need to return in 3 to 5 days if the stitches are on your face. Stitches on your scalp need to be removed after 7 to 14 days. Stitches over joints may remain in place up to 14 days. Write down your questions so you remember to ask them during your visits. ?? Copyright [employer] 2019 Information is for End User's use only and may not be sold, redistributed or otherwise used for commercial purposes. All illustrations and images included in CareNotes?? are the copyrighted property of A.D.A.M., Inc. or [employer] The above information is an school health aide only. It is not intended as medical advice for individual conditions or treatments. Talk to your doctor, nurse or pharmacist before following any medical regimen to see if it is safe and effective for you. documented in this encounter Progress Notes * Rosana Solo MD - 10/13/2019 11:54 AM CDT SUBJECTIVE: Mk Sanches is a 84 year old male here for follow up visit for ER visit 10/03/19. Got up to go to bathroom In middle of night. Family heard him get up and tehn fall while in the bathroom. No one witnessed fall andpt cannot tell us what caused fall due to dementia. When family tried to get up off floor, noticed blood on right foot. Had split skin between/under 4th/5th toes. Denies striking head. No LOC reported. Pt denies any complaints for family after fall oron arrival to ER other than foto laceration Went to [facility] in [place]. Sutures placed. They gave him a tetanus shot. Unsure if Td or Tdap No real pain or injury beyond foot. No increased confusion since injury. Denies complaints of neck, back, arm, legs pain. No chest pain or abdominal pain Denies dizziness Given keflex 500 mg BID x 5 days. Thinks fall due to catching pants as too long. Denies feeling dizzy before fall Has been sleeping more lately Pt has no complaint Current Outpatient Medications on File Prior to Visit Medication Sig Dispense Refill ??? Acetaminophen (TYLENOL ARTHRITIS PAIN PO) Take 500 mg by mouth Two times a week ??? DIONICIO ASPIRIN REGIMEN PO Take 81 mg by mouth once daily ??? glipiZIDE (GLUCOTROL) 5 MG tablet TAKE 1 TABLET BY MOUTH DAILY BEFORE BREAKFAST 90 tablet 1 ??? ketoconazole (NIZORAL) 2 % shampoo Apply to affected area Three times a week Reasons: Dandruff 120 mL 1 ??? levothyroxine (SYNTHROID) 75 MCG tablet TAKE 1 TABLET BY MOUTH EVERY MORNING 90 tablet 1 ??? loratadine (CLARITIN) 10 MG tablet TAKE [...] Alcohol use: No ??? Drug use: No PMH, PSH, FamHx all updated and reviewed as indicated in the electronic chart ROS: Gen: Denies fevers, chills, HEENT: Denies congestion, sorethroat, visual changes CV: Denies chest pain, palpitations Resp: Denies shortness of breath, dyspnea on exertion GI: Denies abdominal pain, nausea, vomiting, diarrhea OBJECTIVE: Vitals: 10/13/19 1128 10/13/19 1208 BP: 100/60 98/60 Pulse: 96 80 Resp: 20 Temp: 98.9 ??F (37.2 ??C) Weight: 78.6 kg (173 lb 3.2 oz) Height: 1.651 m (5' 5) Body mass index is 28.82 kg/m??. Appears: alert, well appearing, and in no distress. Head NC/AT Ears: bilateral TM's and external ear canals normal Neck: supple, no significant adenopathy, no tenderness Back - no tenderness No tenderness to Bilateral upper extremities or Bilateral lower extremities Lungs: clear to auscultation, no wheezes, rales, or rhonchi, no tachypnea, retractions, or cyanosis CV exam: regular rate and rhythm Abdominal exam: Soft, non-tender abdomen. Right foot - healing laceration at base of 4tha dn 5th toes with sutures in place. Laceration extends into 4th-5th webspace. Laceration without surrounding erythema or drainage 10 sutures removed per useful fashion from toe. Wound remains well approximated. Due to location fowound, it would be difficult for steri-strips to be applied and remain in place, so they were deferred. Post-suture removal laceration care discussed.. pt's daughter is comfortable with treatment ASSESSMENT & PLAN: Fall, subsequent encounter - unclear exact cause as not witnessed. family thinks tripped over long pants legs. they plan to hem hist sleep pants. ? Bp cotnributes. stop JAYDEN-I Laceration of right foot, subsequent encounter - healing. no signs fo infection. sutures removed. wound care disucssed - Plan: RI REMOVAL OF SUTURES Visit for suture removal - Plan: RI REMOVAL OF SUTURES Hypotension, unspecified hypotension type - Bp soft today. on lisinopril 2.5 mg for renal protection. Will d/c. unclear if soft BP could have contributed to fall Alzheimer's dementia without behavioral disturbance, unspecified timing of dementia onset - pt doesnot know what caused fall. he denies complaints Pt advised to call if signs of infection occur Advised to call back directly if there are further questions, or if these symptoms fail to improve as anticipated or worsen, or any new concerns arise An After Visit Summary was printed and given to the patient. Follow up as previously recommended. Rosana Solo MD documented in this encounter Plan of Treatment Upcoming Encounters Date Type Department Care Team (Late st Contact Info) Description 04/07/2024 10:00 AM NATURAL GAS SHOTHOLE DRILLER Office Visit [facility] [address] [facility] [address] [place], [place] [phone] Evelin Blanco APRN-DENIS [address] [address] 06/06/2024 2:00 PM CDT Office Visit [facility] [id number] [place] [address] [place] [address] [phone] documented as of this encounter Goals Goal Patient Goal Type Associated Problems Recent Progress Patient-Stated? Author Blood Pressure < 140/90 Blood Pressure 96/68(2023 2:34 PM NATURAL GAS SHOTHOLE DRILLER) Rere Vargas Note: Caring for Your High [...] Where can I go for more information? [place] Heart Association National Center: http://www.americanheart.org 1. In the top header, click ? Conditions? . 2. In the top header, click ? high blood pressure.? 3. For a printable blood pressure tracker, scroll toward the bottom of the page to Related Tools, and click ? HBP Trackers.? 2-143-OEW-USA-1 or ( ) National Heart, Lung and Blood [place]: http://www.nhlbi.nih.gov/health/infoctr/index.htm Blood Pressure < 140/90 Blood Pressure 96/68(2023 2:34 PM NATURAL GAS SHOTHOLE DRILLER) Rere Vargas Note: Caring for Your High [...] Where can I go for more information? Norwegian Heart Association National Center: http://www.americanheart.org 1. In the top header, click ? Conditions? . 2. In the top header, click ? high blood pressure.? 3. For a printable blood pressure tracker, scroll toward the bottom of the page to Related Tools, and click ? HBP Trackers.? 0-903-QBD-USA-1 or ( ) National Heart, Lung and Blood [place]: http://www.nhlbi.nih.gov/health/infoctr/index.htm Blood Pressure < 140/90 Blood Pressure 96/68(2023 2:34 PM NATURAL GAS SHOTHOLE DRILLER) Cassie Parks Note: Caring for Your High [...] Where can I go for more information? Norwegian Heart Association National Center: http://www.americanheart.org 1. In the top header, click ? Conditions? . 2. In the top header, click ? high blood pressure.? 3. For a printable blood pressure tracker, scroll toward the bottom of the page to Related Tools, and click ? HBP Trackers.? 1-734-CDN-USA-1 or ( ) National Heart, Lung and Blood [place]: http://www.nhlbi.nih.gov/health/infoctr/index.htm Exercise 5X per week (30 min per time) Exercise Rere Vargas Note: The [place] College of Sports Medicine recommends all adults [...] how to manage your diabetes: ? ? [place] Diabetes Association: www.diabetes.org 9-777-UKZQWZIK ( ) ? ? [place] Diabetes Association-Support group line: www.professional.diabetes.org ? ? [place] Heart Association: www.heart.org or 7-609-HKU-[facility]-1 ( ) [employer] MyPlate: www.Chronon Systemsmyplate.gov Have labs drawn Lifestyle Rere Vargas [...] of this encounter Visit Diagnoses Diagnosis Fall, subsequent encounter- Primary Laceration of right foot, subsequent encounter Visit for suture removal Encounter for removal of sutures Hypotension, unspecified hypotension type Alzheimer's dementia without behavioral disturbance, unspecified timing of dementia onset (HCC) documented in this encounter Care Teams Shear Helper Relationship Specialty Start Date End Date Rosana Solo MD [address] [place] [address] PCP - Attributed-[facility] 02/19/19 [place] [address] [facility] [address] [place] [address] Ophthalmology 04/06/16 documented as of this encounter
--- OUTSIDE RECORDS SUMMARY | 2024-04-03 01:01 | XMS_ITS | Encounter Summary ---
Author Organization [facility] Address [address] [facility] [place] [address] Care Team Providers Care Assistant Branch Manager Name Role Phone Ricco Andrew MD Unavailable [phone] Rosana Solo MD Unavailable [phone] Reason for Visit * Reason Comments Refill Request Encounter Details Date Type Department Care Team (Late Contact Info) Description 07/22/2019 Refill [facility] [address] [facility] [address] [place] [address] Rosana Solo MD [facility] [address] [address] Refill Request Social History Tobacco [...] (Late Contact Info) Description 04/07/2024 10:00 AM CHILD CARE TEACHER Office Visit [facility] [address] [facility] [address] [place] [address] [place]wal[place], NIKITA Waters [address] [facility] [address] [place] [address] 06/06/2024 2:00 PM CDT Office Visit [facility] Medicine [address] [facility] [address] [place], [place] [phone] [place] [address] [facility] [address] [place] [address] documented as of this encounter Goals Goal Patient Goal Type Associated Problems Recent Progress Patient-Stated? Author Blood Pressure < 140/90 Blood Pressure 96/68(2023 2:34 PM CHILD CARE TEACHER) Rere Vargas Note: Caring for Your [...] Where can I go for more information? [place] Heart Association National Center: http://www.americanheart.org 1. In the top header, click ? Conditions? . 2. In the top header, click ? high blood pressure.? 3. For a printable blood pressure tracker, scroll toward the bottom of the page to Related Tools, and click ? HBP Trackers.? 5-134-GBGUSA- or ( ) National Heart, Lung and Blood [place]: http://www.nhlbi.nih.gov/health/infoctr/index.htm Blood Pressure < 140/90 Blood Pressure 96/68(2023 2:34 PM CHILD CARE TEACHER) Rere Vargas Note: Caring for Your [...] Where can I go for more information? [place] Heart Association National Center: http://www.americanheart.org 1. In the top header, click ? Conditions? . 2. In the top header, click ? high blood pressure.? 3. For a printable blood pressure tracker, scroll toward the bottom of the page to Related Tools, and click ? HBP Trackers.? 4-113-GCXUSA- or ( ) National Heart, Lung and Blood [place]: http://www.nhlbi.nih.gov/health/infoctr/index.htm Blood Pressure < 140/90 Blood Pressure 96/68(2023 2:34 PM CHILD CARE TEACHER) No Cassie Marie Note: Caring for Your [...] Where can I go for more information? [place] Heart Association National Center: http://www.americanheart.org 1. In the top header, click ? Conditions? . 2. In the top header, click ? high blood pressure.? 3. For a printable blood pressure tracker, scroll toward the bottom of the page to Related Tools, and click ? HBP Trackers.? 4-328-RST-USA-1 or ( ) National Heart, Lung and Blood [place]: http://www.nhlbi.nih.gov/health/infoctr/index.htm Exercise 5X per week (30 min per time) Exercise Rere Vargas Note: The [place] College of Sports Medicine recommends all adults [...] how to manage your diabetes: ? ? [place] Diabetes Association: www.diabetes.org 9-517-EOJDSIAE ( ) ? ? [place] Diabetes Association-Support group line: www.professional.diabetes.org ? ? [place] Heart Association: www.heart.org or 0-476-XDE-USA-1 ( ) [employer] MyPlate: www.Cloud Cruisermyplate.gov Have labs drawn Lifestyle Rere Vargas Note: [...] on filedocumented in this encounter Care Teams Assistant Branch Manager Relationship Specialty Start Date End Date Rosana Solo MD [address] [facility] [address] [place] [address] PCP - Attributed-[facility] 02/19/19 [place] [address] [facility] [address] [place] [address] Ophthalmology 04/06/16 documented as of this encounter
--- OUTSIDE RECORDS SUMMARY | 2024-04-03 01:01 | XMS_ITS | Encounter Summary ---
Author Organization [facility] Address [address] [place] [address] Care Team Providers Care Casting Machine Adjuster Name Role Phone Ricco Andrew MD Unavailable Rosana Solo MD Unavailable [phone] Encounter Details Date Type Department Care Team (Latest Contact Info) Description 10/11/2019 Travel Social History Tobacco Use Types Packs/Day [...] st Contact Info) Description 04/07/2024 10:00 AM INORGANIC CHEMIST Office Visit [facility] - Family Medicine [address] [facility] [address] [place], [place] [phone] Evelin Blanco, SALES DEPARTMENT CLERK-ELECTRIC REFRIGERATOR SERVICER [address] [facility] [address] [place] [address] 06/06/2024 2:00 PM CDT Office Visit [facility] [address] [facility] [address] [place] [address] [place] [address] [facility] [address] [place] [address] [place] [address] documented as of this encounter Goals Goal Patient Goal Type Associated Problems Recent Progress Patient-Stated? Author Blood Pressure < 140/90 Blood Pressure 96/68(2023 2:34 PM INORGANIC CHEMIST) Rere Vargas Note: Caring for Your High [...] Where can I go for more information? Mal[place] Heart Association National Center: http://www.americanheart.org 1. In the top header, click ? Conditions? . 2. In the top header, click ? high blood pressure.? 3. For a printable blood pressure tracker, scroll toward the bottom of the page to Related Tools, and click ? HBP Trackers.? 9-678-GAP-USA- or ( ) National Heart, Lung and Blood [place]: http://www.nhlbi.nih.gov/health/infoctr/index.htm Blood Pressure < 140/90 Blood Pressure 96/68(2023 2:34 PM INORGANIC CHEMIST) No Rere Kaufman Note: Caring for Your [...] Where can I go for more information? [place] Heart Association National Center: http://www.americanheart.org 1. In the top header, click ? Conditions? . 2. In the top header, click ? high blood pressure.? 3. For a printable blood pressure tracker, scroll toward the bottom of the page to Related Tools, and click ? HBP Trackers.? 4-511-TNZ-USA-1 or ( ) National Heart, Lung and Blood [place]: http://www.nhlbi.nih.gov/health/infoctr/index.htm Blood Pressure < 140/90 Blood Pressure 96/68(2023 2:34 PM INORGANIC CHEMIST) No Cassie Marie Note: Caring for Your [...] Where can I go for more information? [place]divian Heart Association National Center: http://www.americanheart.org 1. In the top header, click ? Conditions? . 2. In the top header, click ? high blood pressure.? 3. For a printable blood pressure tracker, scroll toward the bottom of the page to Related Tools, and click ? HBP Trackers.? 3-137-DVB-USA-1 or ( ) National Heart, Lung and Blood [place]: http://www.nhlbi.nih.gov/health/infoctr/index.htm Exercise 5X per week (30 min per time) Exercise Rere Vargas Note: The Maldiv[place] College of Sports Medicine recommends all adults [...] how to manage your diabetes: ? ? [place] Diabetes Association: www.diabetes.org 6-979-JYQUOZRX ( ) ? ? [place] Diabetes Association-Support group line: www.professional.diabetes.org ? ? [place]ian Heart Association: www.heart.org or 7-925-VAQ-USA-1 ( ) [employer] MyPlate: www.Netchemiamyplate.gov Have labs drawn Lifestyle Rere Vargas Note: [...] on filedocumented in this encounter Care Teams Casting Machine Adjuster Relationship Specialty Start Date End Date Rosana Solo MD [address] [facility] [address] [place] [address] PCP - Attributed-[facility] 02/19/19 [place] [address] [facility] [address] [place] [address] Ophthalmology 04/06/16 documented as of this encounter
--- OUTSIDE RECORDS SUMMARY | 2024-04-03 01:01 | XMS_ITS | Encounter Summary ---
Author Organization [facility] Address [address] [place] [address] Care Team Providers Care Personal Lines Advisor Name Role Phone Ricco Andrew MD Unavailable Rosana Solo MD Unavailable [phone] Encounter Details Date Type Department Care Team (Latest Contact Info) Description 02/01/2020 Travel Social History Tobacco Use Types Packs/Day [...] have Coronavirus / COVID-19? No / Unsure 02/01/2020 10:49 AM WORT EXTRACTOR documented as of this encounter Plan of Treatment Upcoming Encounters Date Type Department Care Team (Late st Contact Info) Description 04/07/2024 10:00 AM WORT EXTRACTOR Office Visit [facility] - Family Medicine [address] [place], [place] [id number] Evelin Blanco, BROKERAGE OFFICE MANAGER-BUTCHER APPRENTICE [address] [facility] [place] [address] 06/06/2024 2:00 PM CDT Office Visit [facility] Family Medicine [address] [place] [address] [place] [address] [address] [place] [address] [place] [phone] documented as of this encounter Goals Goal Patient Goal Type Associated Problems Recent Progress Patient-Stated? Author Blood Pressure < 140/90 Blood Pressure 96/68(2023 2:34 PM WORT EXTRACTOR) Rere Vargas Note: Caring for Your High [...] Where can I go for more information? [place] Heart Association National Center: http://www.americanheart.org 1. In the top header, click ? Conditions? . 2. In the top header, click ? high blood pressure.? 3. For a printable blood pressure tracker, scroll toward the bottom of the page to Related Tools, and click ? HBP Trackers.? 5-994-DKU-USA- or ( ) National Heart, Lung and Blood [place]: http://www.nhlbi.nih.gov/health/infoctr/index.htm Blood Pressure < 140/90 Blood Pressure 96/68(2023 2:34 PM WORT EXTRACTOR) No Rere Kaufman Note: Caring for Your [...] Where can I go for more information? [place] Heart Association National Center: http://www.americanheart.org 1. In the top header, click ? Conditions? . 2. In the top header, click ? high blood pressure.? 3. For a printable blood pressure tracker, scroll toward the bottom of the page to Related Tools, and click ? HBP Trackers.? 0-030-AWT-USA-1 or ( ) National Heart, Lung and Blood [place]: http://www.nhlbi.nih.gov/health/infoctr/index.htm Blood Pressure < 140/90 Blood Pressure 96/68(2023 2:34 PM WORT EXTRACTOR) No Cassie Marie Note: Caring for Your [...] Where can I go for more information? [place] Heart Association National Center: http://www.americanheart.org 1. In the top header, click ? Conditions? . 2. In the top header, click ? high blood pressure.? 3. For a printable blood pressure tracker, scroll toward the bottom of the page to Related Tools, and click ? HBP Trackers.? 5-474-DBN-USA-1 or ( ) National Heart, Lung and Blood [place]: http://www.nhlbi.nih.gov/health/infoctr/index.htm Exercise 5X per week (30 min per time) Exercise No Rere Kaufman Note: The [place] College of Sports Medicine recommends all adults [...] how to manage your diabetes: ? ? [place] Diabetes Association: www.diabetes.org 3-114-UMWNDFZY ( ) ? ? [place] Diabetes Association-Support group line: www.professional.diabetes.org ? ? [place] Heart Association: www.heart.org or 4-700-MGU-USA-1 ( ) [place] MyPlate: www.Just around Usmyplate.gov Have labs drawn Lifestyle Rere Vargas Note: [...] on filedocumented in this encounter Care Teams Personal Lines Advisor Relationship Specialty Start Date End Date Rosana Solo MD [address] [facility] [address] [place] [address] PCP - Attributed-[facility] 02/19/19 [place] [address] [facility] [address] [place] [phone] Ophthalmology 04/06/16 documented as of this encounter
--- OUTSIDE RECORDS SUMMARY | 2024-04-03 01:01 | XMS_ITS | Encounter Summary ---
Author Organization [facility] Address [address] [place] [address] Care Team Providers Care Energy Systems Engineer Name Role Phone Ricco Andrew MD Unavailable [phone] Rosana Solo MD Unavailable [phone] Reason for Visit * Reason Comments Diabetes Encounter Details Date Type Department Care Team (Late st Contact Info) Description 02/28/2019 2:00 PM REPTILE KEEPER Office Visit [facility] - Family Medicine [address] [place], [place] [phone] Rosana Solo MD [facility] 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 (HCC); Alzheimer's dementia without behavioral disturbance, unspecified timing of dementia onset; Hypothyroidism, adult; Arthritis of knee; Gait instability; Need for vaccination Social History Tobacco Use [...] Sign Reading Time Taken Comments Blood Pressure 110/60 02/28/2019 2:59 PM REPTILE KEEPER Pulse 88 02/28/2019 2:59 PM REPTILE KEEPER Temperature 36.8 ??C (98.3 ??F) 02/28/2019 2:59 PM CS T Respiratory Rate 18 02/28/2019 2:59 PM REPTILE KEEPER Oxygen Saturation - - Inhaled Oxygen Concentration - - Weight 80.7 kg (178 lb) 02/28/2019 2:59 PM REPTILE KEEPER Height - - Body Mass Index 29.62 08/29/2018 1:37 PM CDT documented in this encounter Patient Instructions * Patient Instructions* Rosana Solo MD - 02/28/2019 3:54 PM REPTILE KEEPER Continue current medications hgb a1c at lab today See me back in 6 months Patient Education Alzheimer Disease WHAT YOU NEED TO KNOW: What is Alzheimer disease? Alzheimer disease (AD) is an irreversible brain disorder that results inthe gradual loss of memory. Parts of the brain and cannot make normal levels of brain chemicals. This causes problems with how you think, behave, and remember things. The disease usually starts at about age 65 to 70 years but can start earlier. A person usually has AD for 2 to 10 years, but some people may live 20 years or more with the disease. The exact cause of AD is not known. What increases my risk for AD? The risk of AD increases with age, but it is not a normal part of aging. The following may increase your risk for AD: ?? A family history of AD ?? A protein called ApoE, which normally carries cholesterol in the blood ?? Diabetes or Down syndrome ?? High cholesterol or carotid artery disease ?? A heart attack, head injury, or depression ?? Smoking cigarettes What are the signs and symptoms of AD? ?? Mild AD: Early AD symptoms may be minor and last from 1 to 3 years. ? Memory loss: Remembering what happened years ago, but unable to remember things from yesterday orforgetting the names of common things or people you know ? Confusion about what month or season it is ? Forgetting to brush your teeth or comb your hair ? Difficulty taking care of your home or finances or difficulty making decisions ? Loss of interest in your usual activities ? Feeling depressed, angry, or confused about the changes you notice ?? Moderate AD: ? Problems choosing what clothes to wear, doing simple jobs, or caring for your self ? Unable to recognize people familiar to you ? Difficulty finding words to say what you mean, trouble talking in normal sentences, or speech that is difficult to understand ? Feeling anxious, restless, and agitated at night and seeming depressed or worried ? Difficulty controlling emotions and becoming loud, violent, and hard to control ? Becoming confused and wandering off or pacing ? Unable to plan and follow through with activities ? Thinking something is true even though it is not, seeing things that are not actually there, or inability to control when you urinate ?? Severe AD: ? Complete loss of memory ? Complete loss of speech ? Loss of bladder and bowel control ? Finding it very difficult to walk ? Becoming angry and out of control or aggressive and destroying things ? Unable to care for yourself and needing someone to take care of you How is AD diagnosed? Your healthcare provider will examine you. He will ask questions about your symptoms and when they started. He will ask you questions to check memory, problem solving, and language skills. He will ask if you have other family members with AD. He will also ask what medicine you take and if you drink alcohol or use tobacco. ?? MRI or CT pictures of your brain may be taken. You may be given contrast liquid before the scan.Tell a healthcare provider if you have ever had an allergic reaction to contrast liquid. Do not enter the MRI room with anything metal. Metal can cause serious injury. Tell the healthcare provider ifyou have any metal in or on your body. ?? A PET scan may be used to record the activity of chemicals in your brain. How is AD treated? There is no known cure for AD. Treatment includes keeping a good quality of life, for as long as possible. Ask your healthcare provider for more information about the most current treatment available. Your healthcare provider may suggest one or more of the following: ?? Medicines may be given to help you think better or to slow the of brain cells. You may also need medicines to help you feel less depressed, anxious, angry, or restless. These medicines can also help you sleep better. Medicines can also help with bladder and bowel control or to control delusions (false beliefs) and hallucinations. ?? Counseling can be used to teach you ways to cope with your AD. It may be done one-on-one with a healthcare provider or may include family members or other persons with AD. Talk therapy may help you talk about your feelings and learn to control your actions and emotions. Stimulation therapy can help keep your mind active. Healthcare providers may use music, art, or animals in this type of therapy. Where can I get more information? ?? Alzheimer's Association [address] [place] [address] [place] [address] Phone: Web Address: http://www.alz.org ?? [facility] [address] Caio Scanlon MD [address] Caio Scanlon MD Phone: [phone] Web Address: http://www.alzheimers.org When should I contact my healthcare provider? ?? You have a fever. ?? You have a rash or your skin is itchy and swollen. ?? You are depressed and have difficulty coping with your symptoms. ?? You have questions or concerns about your condition or care. CARE AGREEMENT: You have the right to help plan your care. Learn about your health condition and how it may be treated. Discuss treatment options with your healthcare providers to decide what care you want to receive. You always have the right to refuse treatment. The above information is an nurse first aid only. It is not intended as medical advice for individual conditions or treatments. Talk to your doctor, nurse or pharmacist before following any medical regimen to see if it is safe and effective for you. ?? Copyright [employer] 2019 Information is for End User's use only and may not be sold, redistributed or otherwise used for commercial purposes. All illustrations and images included in CareNotes?? are the copyrighted property of [employer] or [employer] ILE KEEPER documented in this encounter Progress Notes * Rosana Solo MD - 02/28/2019 3:13 PM CST SUBJECTIVE: Mk Sanches is a 83 year old white male here for follow up chronic issues Accompanied by daughters HTN resolved. No longer rx Diabetes type II with neuropathy: Glucose monitoring is performed occasionally. Blood glucoses mostly 130-140s On glipizide 5 mg daily. Following DM diet: family limiting his diet Does pt exercise: not really Last dilated eye exam: 04/2018 Kidney disease?: Yes Neuropathy?: Yes. Denies complaints or numbness or pain On JAYDEN- I or ARB?: yes. On lisinopril for renal protection On Statin?: no. Well controlled without statin and has been declined in past due to some concern about dementia Diabetic ROS: no chest pain, dyspnea or TIA's, no unusual visual symptoms, no new foot ulcers. Dementia/Alzheimers - on Namenda. Primarily short-term impairment. . 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 Likes to sleep a lot. dasaqib notes pt would like to sleep all day if she let him. She makes him get up in morning to eat. No major issues Denies depression. Mood ok Hypothyroidism - on levothyroxine 75 mcg daily. Energy level ok. No falls. Some gait issues at times. Using cane now. Feels would be better and more stable with quad base on cane. Plans to look into getting. Notes some gait issues due to knee arthritis and neuropathy. Feels quad cane would help him get around better. Pt reports will use. Daughter notes pt has been using the regular cane (was a love ones that passed) a lot recently and likes it. Occasional cough. Denies shortness of breath or wheezing Past Medical History: Diagnosis Date ??? Benign hypertension with chronic kidney disease 02/05/2016 BP controlled off rx. resolved ??? Chronic renal failure ??? Dementia ??? Dermatitis ??? DM (diabetes mellitus) ??? HTN (hypertension) ??? Hx of rheumatic fever ??? Hypothyroid ??? Seasonal allergies ??? Trigger finger Body mass index is 29.62 kg/m??. Outpatient Medications Prior to Visit Medication Sig Dispense Refill ??? Acetaminophen (TYLENOL ARTHRITIS PAIN PO) Take 500 mg by mouth Two times a week ??? DIONICIO ASPIRIN REGIMEN PO Take 81 mg by mouth once daily ??? glipiZIDE (GLUCOTROL) 5 MG tablet TAKE 1 TABLET BY MOUTH DAILY BEFORE BREAKFAST REASONS: TYPE 2DIABETES 90 tablet 0 ??? ketoconazole (NIZORAL) 2 % shampoo Apply to affected area Three times a week Reasons: Dandruff 120 mL 1 ??? levothyroxine (SYNTHROID) 75 MCG tablet TAKE 1 TABLET BY MOUTH EVERY MORNING 90 tablet 1 ??? lisinopril (PRINIVIL; ZESTRIL) 2.5 MG tablet TAKE 1 TAB BY MOUTH ONCE DAILY REASONS: DIABETIC KIDNEY PROTECTION 90 tablet 1 ??? loratadine (CLARITIN) 10 [...] Alcohol use: No ??? Drug use: No Health Maintenance Topic Date Due ??? DTAP/TDAP/TD VACCINES (1 - Tdap) 1956 ??? DIABETES-STATIN 1977 ??? ZOSTER VACCINE (1 of 2) 05/28/1987 ??? ANNUAL MEDICARE WELLNESS VISIT 02/05/2016 ??? HCC (Chart Reviewer Use Only) 08/31/2018 ??? INFLUENZA VACCINE (1) 11/20/2018 ??? DIABETES-HGB A1C 02/28/2019 ??? DIABETES-EYE EXAM 05/06/2019 ??? DIABETES-FOOT EXAM WITH MONOFILAMENT 08/30/2019 ??? PNEUMOCOCCAL VACCINE 65+ Completed ??? HIB VACCINE Aged Out ??? MENINGOCOCCAL VACCINE Aged Out Immunization History Administered Date(s) Administered ??? FLU VACCINE TRI INC ANTIG PF 02/05/2016, 03/01/2017, 03/02/2018, 02/28/2019 ??? PNEUMOCOCCAL PPSV23 07/25/2012 ??? Pneumococcal Pcv13 Conj 03/02/2018 REVIEW OF SYSTEMS Constitutional: Denies fever Ears, nose, mouth, and throat: Denies nasal discharge. +Decreased hearing Respiratory: Denies shortness of breath, wheeze. Rare cough Cardiovascular: Denies chest pain, palpitations Gastrointestinal: Denies abdominal pain Neurological: Denies syncope, dizziness. Denies TIA or stroke-like symptoms. Behavioral/Psych: Decreased memory. Denies depression OBJECTIVE: Physical Examination: Vitals: 02/28/19 1459 BP: 110/60 Pulse: 88 Resp: 18 Temp: 98.3 ??F (36.8 ??C) Weight: 80.7 kg (178 lb) Body mass index is 29.62 kg/m??. No exam data present CrCl cannot be calculated (Patient's most recent lab result is older than the maximum 15 days allowed.). General: alert, well appearing, and in no acute distress HEENT: Normocephalic atraumatic. PERRLA, EOMI, no conjunctivitis. Bilateral TM's and external ear canals normal. Oral mucous membranes moist, pharynx normal without lesions, edentulous CV exam: regular rate and rhythm, normal S1 and S2, no murmurs, rubs, or gallops appreciated. Respiratory: clear to auscultation bilaterally, no wheezes, rales, or rhonchi, Good aeration. no tachypnea, retractions, or cyanosis Neuro: Alert and oriented x 1-2, Cranial nerves II-XII grossly intact except for decreased hearing.Grossly non-focal. abd - soft, nontender Psych/MSE: normal mood and affect. Decreased short-term memory, but pleasant Recent Labs Component Name 03/02/18 1347 03/01/17 1419 02/06/16 0844 CHOL 171 149 148 TRIG 230* 97 111 HDL 39* 43 48 LDLCALC 86 87 78 Recent Labs Component Name 08/29/18 1432 03/02/18 1347 08/31/17 1344 HGBA1C 7.4* 7.2* 7.9* Recent Labs Component Name 08/29/18 1432 03/02/18 1347 08/31/17 1344 SODIUM 137 136 138 POTASSIUM 4.6 4.3 5.2* CHLORIDE 104 104 105 CO2 23 26 29 BUN 25 16 21 CREATININE 1.51* 1.50* 1.70* GLUCOSE 177* 149* 165* CALCIUM 9.1 8.4* 9.0 ALBUMIN 4.1 3.5 3.7 ALKPHOS 69 85 83 ALT 12* 17 20 AST 14 6 10 TBIL 0.3 0.2 0.3 TPROT 7.1 7.3 7.3 EGFR 45 45 39 Recent Labs Component Name 03/02/18 1347 03/01/17 1419 02/06/16 0844 MICROALBCREA 6 <7 6 ASSESSMENT & PLAN: Type 2 diabetes mellitus with stage 3 chronic kidney disease, unspecified whether shelter insulinuse - can tolerate looser DM cotnrol given Dementia & Age. hgb A1c goal <8, better if <7.5. Adjust rx if needed - Plan: HEMOGLOBIN A1C W EAG Type 2 diabetes mellitus with diabetic neuropathy, unspecified whether shelter insulin use - Plan: HEMOGLOBIN A1C W EAG Alzheimer's dementia without behavioral disturbance, unspecified timing of dementia onset - pleasantly demented. reorient frequently. discussed tips to decrease risk of sundowning. Should not allow him to sleep all day long. continue rx. - Plan: REFERRAL FOR DME Hypothyroidism, adult - euthyroid. cont rx Arthritis of knee - struggles at times. affects gait. using cane now with some benefit. Feels quad cane would be more stable and agreeable to use - Plan: REFERRAL FOR DME Gait instability - due to neuropathy and knee arthritis. denies falls, but needing cane regularlly.Feels quad cane would be better. ordered. - Plan: REFERRAL FOR DME Need for vaccination - Plan: FLU VACCINE TRI INC ANTIG PF Follow up in 6 months Or return to clinic sooner if persistent or worsening symptoms An After Visit Summary was printed and given to the patient. Rosana Solo MD ILE KEEPER * Cassie Marie - 02/28/2019 2:56 PM CST Patient is here today for a diabetes follow up Blood pressure 110/60, pulse 88, temperature 98.3 ??F (36.8 ??C), temperature source Oral, resp. rate 18, weight 80.7 kg (178 lb). . ILE KEEPER documented in this encounter Plan of Treatment Upcoming Encounters Date Type Department Care Team (Late st Contact Info) Description 04/07/2024 10:00 AM REPTILE KEEPER Office Visit [facility] Family Medicine [address] [facility] [address] [place] [address] Evelin Blanco, ANTHROPOLOGY LECTURER-BACK TENDER PULP DRIER [address] [facility] [address] [place] [address] 06/06/2024 2:00 PM CDT Office Visit [facility] Family Medicine [address] [facility] [address] [place], [place] [phone] [place] [address] [facility] [address] [place] [address] documented as of this encounter Goals Goal Patient Goal Type Associated Problems Recent Progress Patient-Stated? Author Blood Pressure < 140/90 Blood Pressure 96/68(2023 2:34 PM REPTILE KEEPER) Rere Vargas Note: Caring for Your High [...] Where can I go for more information? [place] Heart Association National Center: http://www.americanheart.org 1. In the top header, click ? Conditions? . 2. In the top header, click ? high blood pressure.? 3. For a printable blood pressure tracker, scroll toward the bottom of the page to Related Tools, and click ? HBP Trackers.? 5-674-UWOUSA- or ( ) National Heart, Lung and Blood [place]: http://www.nhlbi.nih.gov/health/infoctr/index.htm Blood Pressure < 140/90 Blood Pressure 96/68(2023 2:34 PM REPTILE KEEPER) Rere Vargas Note: Caring for Your High [...] Where can I go for more information? [place] Heart Association National Center: http://www.americanheart.org 1. In the top header, click ? Conditions? . 2. In the top header, click ? high blood pressure.? 3. For a printable blood pressure tracker, scroll toward the bottom of the page to Related Tools, and click ? HBP Trackers.? 5-361-ZFO-USA- or ( ) National Heart, Lung and Blood [place]: http://www.nhlbi.nih.gov/health/infoctr/index.htm Blood Pressure < 140/90 Blood Pressure 96/68(2023 2:34 PM REPTILE KEEPER) Cassie Parks Note: Caring for Your High [...] Where can I go for more information? [place] Heart Association National Center: http://www.americanheart.org 1. In the top header, click ? Conditions? . 2. In the top header, click ? high blood pressure.? 3. For a printable blood pressure tracker, scroll toward the bottom of the page to Related Tools, and click ? HBP Trackers.? 0-824-HRQ-USA-1 or ( ) National Heart, Lung and Blood [place]: http://www.nhlbi.nih.gov/health/infoctr/index.htm Exercise 5X per week (30 min per time) Exercise Rere Vargas Note: The [place] College of Sports Medicine recommends all [...] how to manage your diabetes: ? ? [place] Diabetes Association: www.diabetes.org 8-851-XSSVVANR ( ) ? ? [place] Diabetes Association-Support group line: www.professional.diabetes.org ? ? [place] Heart Association: www.heart.org or 0-218-RFI-USA-1 ( ) [employer] MyPlate: www.Intensity Analytics Corporationmyplate.gov Have labs drawn Lifestyle Rere Vargas Note: [...] Diagnosis Comments HEMOGLOBIN A1C W EAG Routine 02/28/2019 4:22 PM REPTILE KEEPER Type 2 diabetes mellitus with diabetic neuropathy, unspecified whether shelter insulin use (HCC) Type 2 diabetes mellitus with stage 3 chronic kidney disease, unspecified whether shelter insulin use documented in this encounter Results * (ABNORMAL) HEMOGLOBIN A1C W EAG (02/28/2019 4:22 PM REPTILE KEEPER) Hemoglobin A1c 7.2(H) 4.2 - 5.6 % [facility] ACCOUNT BILL Estimated Average Glucose 160 mg/dL [facility] ACCOUNT BILL Comment: The following cutoff levels are recommended by [place] Diab etes Association. A1c ??> 6.5% : [...] specimen. FASTING Blood BLOOD SPECIMEN / Unknown 02/28/2019 4:22 PM REPTILE KEEPER 02/28/2019 Narrative Resulting Agency Comment Lab Testing performed at: [address] ?? 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 (HCC) Alzheimer's dementia without behavioral disturbance, unspecified timing of dementia onset ([facility]) Hypothyroidism, adult Other specified acquired hypothyroidism Arthritis of knee Unspecified arthropathy, lower leg Gait instability Abnormality of gait Need for vaccination Need for prophylactic vaccination and inoculation against unspecified single disease documented in this encounter Care Teams Energy Systems Engineer Relationship Specialty Start Date End Date Rosana Solo MD [address] [facility] [address] [place] [address] PCP - Attributed-[facility] [place] 02/19/19 [place] [address] [facility] [address] [place] [phone] Ophthalmology 04/06/16 documented as of this encounter
--- OUTSIDE RECORDS SUMMARY | 2024-04-03 01:01 | XMS_ITS | Encounter Summary ---
Author Organization [facility] Address [address] [facility] [place] [address] Care Team Providers Care Printer Floor Covering Assistant Name Role Phone Ricco Andrew MD Unavailable [phone] Rosana Solo MD Unavailable [phone] Reason for Visit * Reason Comments Refill Request Encounter Details Date Type Department Care Team (Late st Contact Info) Description 04/17/2019 Refill [facility] [place] - Family Medicine [address] [place], [place] [id number] Rosana Solo MD [address] [place] [phone] Refill Request Social History Tobacco Use [...] * Telephone Encounter - Alison Lowe - 04/17/2019 9:49 AM CST Last seen: 02/28/2019 Future appointment : 08/30/2019 SECURITY documented in this encounter Plan of Treatment Upcoming Encounters Date Type Department Care Team (Late st Contact Info) Description 04/07/2024 10:00 AM RN SECURITY Office Visit [facility] [address] [facility] [address] [place] [address] Evelin Blanco APRN-CNP [address] [facility] [address] [place] [address] 06/06/2024 2:00 PM CDT Office Visit [facility] [address] [facility] [address] [place] [address] [place] [address] [facility] [address] [place] [address] documented as of this encounter Goals Goal Patient Goal Type Associated Problems Recent Progress Patient-Stated? Author Blood Pressure < 140/90 Blood Pressure 96/68(2023 2:34 PM RN SECURITY) Rere Vargas Note: Caring for Your High [...] Related Tools, and click ? HBP Trackers.? 3-831-PJG-USA-1 or ( ) National Heart, Lung and Blood [place]: http://www.nhlbi.nih.gov/health/infoctr/index.htm Blood Pressure < 140/90 Blood Pressure 96/68(2023 2:34 PM RN SECURITY) Rere Vargas Note: Caring for Your High [...] Related Tools, and click ? HBP Trackers.? 2-628-IFU-USA-1 or ( ) National Heart, Lung and Blood [place]: http://www.nhlbi.nih.gov/health/infoctr/index.htm Blood Pressure < 140/90 Blood Pressure 96/68(2023 2:34 PM RN SECURITY) Cassie Parks Note: Caring for Your High [...] Related Tools, and click ? HBP Trackers.? 9-106-NVR-USA-1 or ( ) National Heart, Lung and Blood [place]: http://www.nhlbi.nih.gov/health/infoctr/index.htm Exercise 5X per week (30 min [...] diabetes: ? ? [place] Diabetes Association: www.diabetes.org 6-903-PHEYBCPS ( ) ? ? [place] Diabetes Association-Support group line: www.professional.diabetes.org ? ? [place] Heart Association: www.heart.org or 2-409-QLG-USA-1 ( ) [employer] MyPlate: www.LesConciergesmyplate.gov Have labs drawn Lifestyle Rere Vargas Note: [...] on filedocumented in this encounter Care Teams Printer Floor Covering Assistant Relationship Specialty Start Date End Date Rosana Solo MD [address] [place] [phone] PCP - Attributed-[facility] 02/19/19 [place] [address] [facility] [address] [place] [address] Ophthalmology 04/06/16 documented as of this encounter
--- OUTSIDE RECORDS SUMMARY | 2024-04-03 01:01 | XMS_ITS | Encounter Summary ---
Author Organization [facility] Address [address] [facility] [place] [address] Care Team Providers Care Honey Blender Name Role Phone Ricco Andrew MD Unavailable Reason for Visit * Reason Comments Refill Request Encounter Details Date Type Department Care Team (Late st Contact Info) Description 10/11/2018 Refill [facility] - Family Medicine [address] [place] [address] Rosana Solo MD [address] [phone] Refill Request Social History [...] * Telephone Encounter - Ana Agudelo - 10/11/2018 1:59 PM CDT Mk Sanches Requested Prescriptions Pending Prescriptions Disp Refills ??? glipiZIDE (GLUCOTROL) 5 MG tablet [Pharmacy Med Name: GLIPIZIDE 5 MG TABLET] 90 tablet 1 Sig: TAKE 1 TABLET BY MOUTH DAILY BEFORE BREAKFAST REASONS: TYPE 2 DIABETES Allergies Allergen Reactions ??? Ibuprofen Other HE HAS CKD AND SHOULD NOT TAKE NSAID'S Last refill- 04/19/18 Last OV-08/29/18 Future OV-02/28/19 documented in this encounter Plan of Treatment Upcoming Encounters Date Type Department Care Team (Late st Contact Info) Description 04/07/2024 10:00 AM EDGER MACHINE HELPER Office Visit [facility] [address] [facility] [address] [place] [address] Evelin Blanco APRN-CLINICAL STAFF ANESTHESIOLOGIST [address] [facility] [address] [place] [address] 06/06/2024 2:00 PM CDT Office [facility] [id number] [place] [address] [address] [place] [address] [place] [address] [facility] [address] [place] [phone] documented as of this encounter Goals Goal Patient Goal Type Associated Problems Recent Progress Patient-Stated? Author Blood Pressure < 140/90 Blood Pressure 96/68(2023 2:34 PM EDGER MACHINE HELPER) Rere Vargas Note: Caring for Your [...] Related Tools, and click ? HBP Trackers.? 1-061-DXS-USA-1 or ( ) National Heart, Lung and Blood [place]: http://www.nhlbi.nih.gov/health/infoctr/index.htm Blood Pressure < 140/90 Blood Pressure 96/68(2023 2:34 PM EDGER MACHINE HELPER) Rere Vargas Note: Caring for Your [...] Related Tools, and click ? HBP Trackers.? 2-490-KSS-USA-1 or ( ) National Heart, Lung and Blood [place]: http://www.nhlbi.nih.gov/health/infoctr/index.htm Exercise 5X per week (30 min [...] ? ? [place] Diabetes Association: www.diabetes.org 8-749-PCSDXBGO ( ) ? ? [place] Diabetes Association-Support group line: www.professional.diabetes.org ? ? [place] Heart Association: www.heart.org or 1-238-NDB-USA-1 ( ) [employer] MyPlate: www.Guided Interventionsmyplate.gov Have labs drawn Lifestyle Rere Vargas Note: [...] on filedocumented in this encounter Care Teams Honey Blender Relationship Specialty [place] [address] [address] Ophthalmology 04/06/16 documented as of this encounter
--- OUTSIDE RECORDS SUMMARY | 2024-04-03 01:01 | XMS_ITS | Encounter Summary ---
Author Organization [facility] Address [address] [place] [address] Care Team Providers Care Forest Fire Officer Name Role Phone Ricco Andrew MD Unavailable [phone] Rosana Solo MD Unavailable [phone] Reason for Visit * Reason Comments Refill Request Encounter Details Date Type Department Care Team (Late st Contact Info) Description 04/01/2019 Refill [facility] - Family Medicine [address] [place], [place] [phone] Rosana Solo MD [address] [place] [phone] Refill Request Social History Tobacco Use [...] * Telephone Encounter - Bere Ruano - 04/03/2019 9:55 AM CST Last seen 02/28/2019 Future appointment 08/30/2019 RAGE MANAGER documented in this encounter Plan of Treatment Upcoming Encounters Date Type Department Care Team (Late st Contact Info) Description 04/07/2024 10:00 AM BEVERAGE MANAGER Office Visit [facility] [address] [facility] [address] [place] [address] Evelin Blanco APRN-CNP [address] [facility] [address] [place] [address] 06/06/2024 2:00 PM CDT Office Visit [facility] [address] [facility] [address] [place] [address] [place] [address] [facility] [address] [place] [address] documented as of this encounter Goals Goal Patient Goal Type Associated Problems Recent Progress Patient-Stated? Author Blood Pressure < 140/90 Blood Pressure 96/68(2023 2:34 PM BEVERAGE MANAGER) Rere Vargas Note: Caring for Your [...] Where can I go for more information? [place] Heart Association National Center: http://www.americanheart.org 1. In the top header, click ? Conditions? . 2. In the top header, click ? high blood pressure.? 3. For a printable blood pressure tracker, scroll toward the bottom of the page to Related Tools, and click ? HBP Trackers.? 0-162-QED-USA-1 or ( ) National Heart, Lung and Blood [place]: http://www.nhlbi.nih.gov/health/infoctr/index.htm Blood Pressure < 140/90 Blood Pressure 96/68(2023 2:34 PM BEVERAGE MANAGER) Rere Vargas Note: Caring for Your [...] Where can I go for more information? [place] Heart Association National Center: http://www.americanheart.org 1. In the top header, click ? Conditions? . 2. In the top header, click ? high blood pressure.? 3. For a printable blood pressure tracker, scroll toward the bottom of the page to Related Tools, and click ? HBP Trackers.? 1-801-XQC-USA-1 or ( ) National Heart, Lung and Blood [place]: http://www.nhlbi.nih.gov/health/infoctr/index.htm Blood Pressure < 140/90 Blood Pressure 96/68(2023 2:34 PM BEVERAGE MANAGER) Susan Marie Cassie Uche Note: Caring for Your High Blood Pressure [...] Where can I go for more information? [place] Heart Association National Center: http://www.americanheart.org 1. In the top header, click ? Conditions? . 2. In the top header, click ? high blood pressure.? 3. For a printable blood pressure tracker, scroll toward the bottom of the page to Related Tools, and click ? HBP Trackers.? 5-464-FFV- or ( ) National Heart, Lung and Blood [place]: http://www.nhlbi.nih.gov/health/infoctr/index.htm Exercise 5X per week (30 min per time) Exercise No Rere Kaufman Note: The [place] College of Sports Medicine recommends all adults [...] how to manage your diabetes: ? ? [place] Diabetes Association: www.diabetes.org 2-016-UPJODFCR ( ) ? ? [place] Diabetes Association-Support group line: www.professional.diabetes.org ? ? [place] Heart Association: www.heart.org or 3-824-JUP-USA-1 ( ) [employer] MyPlate: www.Jigseemyplate.gov Have labs drawn Lifestyle Rere Vargas Note: [...] on filedocumented in this encounter Care Teams Forest Fire Officer Relationship Specialty Start Date End Date Rosana Solo MD [address] [facility] [address] [place] [address] PCP - Attributed-[facility] 02/19/19 [place] [address] [facility] [address] [place] [phone] Ophthalmology 04/06/16 documented as of this encounter
--- OUTSIDE RECORDS SUMMARY | 2024-04-03 01:01 | XMS_ITS | Encounter Summary ---
Author Organization [facility] Address [address] [facility] [place] [address] Care Team Providers Care Collaborative Teacher Name Role Phone Ricco Andrew MD Unavailable Rosana Solo MD Unavailable [phone] Encounter Details Date Type Department Care Team (Latest Contact Info) Description 11/06/2019 Travel Social History Tobacco Use Types Packs/Day [...] have Coronavirus / COVID-19? No / Unsure 11/06/2019 1:40 PM CDT documented as of this encounter Plan of Treatment Upcoming Encounters Date Type Department Care Team (Late st Contact Info) Description 04/07/2024 10:00 AM INCOME TAX PREPARER Office Visit [facility] - Family Medicine [address] [facility] [address] [place], [place] [phone] Evelin Blanco, ADJUNCT FACULTY-RAMP SERVICE AGENT [address] [facility] [address] [place] [address] 06/06/2024 2:00 PM CDT Office Visit [facility] Family Medicine [address] [facility] [address] [place] [address] [place] [address] [facility] [address] [place] [address] [place] [address] documented as of this encounter Goals Goal Patient Goal Type Associated Problems Recent Progress Patient-Stated? Author Blood Pressure < 140/90 Blood Pressure 96/68(2023 2:34 PM INCOME TAX PREPARER) Rere Vargas Note: Caring for Your High [...] Where can I go for more information? [place] Heart Association National Center: http://www.americanheart.org 1. In the top header, click ? Conditions? . 2. In the top header, click ? high blood pressure.? 3. For a printable blood pressure tracker, scroll toward the bottom of the page to Related Tools, and click ? HBP Trackers.? 0-535-ZQW-USA- or ( ) National Heart, Lung and Blood [place]: http://www.nhlbi.nih.gov/health/infoctr/index.htm Blood Pressure < 140/90 Blood Pressure 96/68(2023 2:34 PM INCOME TAX PREPARER) No Rere Kaufman Note: Caring for Your [...] Where can I go for more information? [place] Heart Association National Center: http://www.americanheart.org 1. In the top header, click ? Conditions? . 2. In the top header, click ? high blood pressure.? 3. For a printable blood pressure tracker, scroll toward the bottom of the page to Related Tools, and click ? HBP Trackers.? 2-432-OLB-USA-1 or ( ) National Heart, Lung and Blood [place]: http://www.nhlbi.nih.gov/health/infoctr/index.htm Blood Pressure < 140/90 Blood Pressure 96/68(2023 2:34 PM INCOME TAX PREPARER) No Cassie Marie Note: Caring for Your [...] Where can I go for more information? [place] Heart Association National Center: http://www.americanheart.org 1. In the top header, click ? Conditions? . 2. In the top header, click ? high blood pressure.? 3. For a printable blood pressure tracker, scroll toward the bottom of the page to Related Tools, and click ? HBP Trackers.? 1-869-EOD-USA-1 or ( ) National Heart, Lung and Blood [place]: http://www.nhlbi.nih.gov/health/infoctr/index.htm Exercise 5X per week (30 min per time) Exercise Rere Vargas Note: The [place] College of Sports Medicine recommends all adults [...] how to manage your diabetes: ? ? [place] Diabetes Association: www.diabetes.org 5-979-UIKAHOHS ( ) ? ? [place] Diabetes Association-Support group line: www.professional.diabetes.org ? ? [place] Heart Association: www.heart.org or 5-202-XVY-USA-1 ( ) [employer] MyPlate: www.Outcomes Incorporatedmyplate.gov Have labs drawn Lifestyle Rere Vargas Note: [...] on filedocumented in this encounter Care Teams Collaborative Teacher Relationship Specialty Start Date End Date Rosana Solo MD [address] [facility] [address] [place] [address] PCP - Attributed-[facility] 02/19/19 [place] [address] [facility] [address] [place] [phone] Ophthalmology 04/06/16 documented as of this encounter
--- OUTSIDE RECORDS SUMMARY | 2024-04-03 01:01 | XMS_ITS | Encounter Summary ---
Author Organization [facility] Address [address] [facility] [place] [address] Care Team Providers Care Specialty Trimmer Name Role Phone Ricco Andrew MD Unavailable [phone] Rosana Solo MD Unavailable [phone] Reason for Visit * Reason Comments Refill Request Encounter Details Date Type Department Care Team (Late Contact Info) Description 07/24/2019 Refill [facility] [address] [facility] [address] [place] [address] Rosana Solo MD [facility] [address] Refill Request Social History Tobacco [...] (Late Contact Info) Description 04/07/2024 10:00 AM BRAKE ENGINEER Office Visit [facility] [address] [facility] [address] [place] [address] Buwalda, NIKITA Waters [address] [facility] [address] [place] [address] 06/06/2024 2:00 PM CDT Office Visit [facility] [address] [facility] [address] [place], [place] [phone] [place] [address] [facility] [address] [place] [address] documented as of this encounter Goals Goal Patient Goal Type Associated Problems Recent Progress Patient-Stated? Author Blood Pressure < 140/90 Blood Pressure 96/68(2023 2:34 PM BRAKE ENGINEER) Rere Vargas Note: Caring for Your [...] Where can I go for more information? [place] Heart Association National Center: http://www.americanheart.org 1. In the top header, click ? Conditions? . 2. In the top header, click ? high blood pressure.? 3. For a printable blood pressure tracker, scroll toward the bottom of the page to Related Tools, and click ? HBP Trackers.? 9-498-OWUUSA- or ( ) National Heart, Lung and Blood [place]: http://www.nhlbi.nih.gov/health/infoctr/index.htm Blood Pressure < 140/90 Blood Pressure 96/68(2023 2:34 PM BRAKE ENGINEER) Rere Vargas Note: Caring for Your [...] Where can I go for more information? [place] Heart Association National Center: http://www.americanheart.org 1. In the top header, click ? Conditions? . 2. In the top header, click ? high blood pressure.? 3. For a printable blood pressure tracker, scroll toward the bottom of the page to Related Tools, and click ? HBP Trackers.? 9-888-TJHUSA- or ( ) National Heart, Lung and Blood [place]: http://www.nhlbi.nih.gov/health/infoctr/index.htm Blood Pressure < 140/90 Blood Pressure 96/68(2023 2:34 PM BRAKE ENGINEER) No Cassie Marie Note: Caring for [...] Where can I go for more information? [place] Heart Association National Center: http://www.americanheart.org 1. In the top header, click ? Conditions? . 2. In the top header, click ? high blood pressure.? 3. For a printable blood pressure tracker, scroll toward the bottom of the page to Related Tools, and click ? HBP Trackers.? 2-826-KKZ-USA-1 or ( ) National Heart, Lung and Blood [place]: http://www.nhlbi.nih.gov/health/infoctr/index.htm Exercise 5X per week (30 min per time) Exercise Rere Vargas Note: The [place] College of Sports Medicine recommends all adults [...] how to manage your diabetes: ? ? [place] Diabetes Association: www.diabetes.org 6-946-WPZASABT ( ) ? ? [place] Diabetes Association-Support group line: www.professional.diabetes.org ? ? [place] Heart Association: www.heart.org or 5-485-IRI-USA-1 ( ) [employer] MyPlate: www.Stackpopmyplate.gov Have labs drawn Lifestyle Rere Vargas Note: [...] on filedocumented in this encounter Care Teams Specialty Trimmer Relationship Specialty Start Date End Date Rosana Solo MD [address] [facility] [address] [place] [address] PCP - Attributed-[facility] 02/19/19 [place] [address] [facility] [address] [place] [address] Ophthalmology 04/06/16 documented as of this encounter
--- OUTSIDE RECORDS SUMMARY | 2024-04-03 01:01 | XMS_ITS | Encounter Summary ---
Author Organization [facility] Address [address] [facility] [place] [address] Care Team Providers Care Kilnman Name Role Phone iRcco Andrew MD Unavailable [phone] Rosana Solo MD Unavailable [phone] Reason for Visit * Reason Comments Refill Request Encounter Details Date Type Department Care Team (Late st Contact Info) Description 01/10/2020 Refill [facility] - Family Medicine [address] [place], [place] [phone] Rosana Solo MD [address] [place] [phone] Refill Request Social History Tobacco Use [...] Telephone Encounter - Swapna Albert MA - 01/11/2020 9:46 AM CDT Requested Prescriptions Pending Prescriptions Disp Refills ??? glipiZIDE (GLUCOTROL) 5 MG tablet [Pharmacy Med Name: GLIPIZIDE 5 MG TABLET] 90 tablet 1 Sig: TAKE 1 TABLET BY MOUTH EVERY DAY BEFORE BREAKFAST Last office visit: 11/07/19 Last refill: 09/25/19 Next appointment: 03/04/20 documented in this encounter Plan of Treatment Upcoming Encounters Date Type Department Care Team (Late st Contact Info) Description 04/07/2024 10:00 AM TALENT ACQUISITION PARTNER Office Visit [facility] [id number] [place] [address] [address] [place] [address] Evelin Blanco APRN-CNP [address] [facility] [address] [place] [address] 06/06/2024 2:00 PM CDT Office Visit [facility] [id number] [place] [address] [address] [place], [place] [phone] Chris [place] [id number] [place] [phone] documented as of this encounter Goals Goal Patient Goal Type Associated Problems Recent Progress Patient-Stated? Author Blood Pressure < 140/90 Blood Pressure 96/68(2023 2:34 PM TALENT ACQUISITION PARTNER) Rere Vargas Note: Caring for Your High [...] Related Tools, and click ? HBP Trackers.? 1-823-OXF-USA-1 or ( ) National Heart, Lung and Blood [employer]: http://www.nhlbi.nih.gov/health/infoctr/index.htm Blood Pressure < 140/90 Blood Pressure 96/68(2023 2:34 PM TALENT ACQUISITION PARTNER) Rere Vargas Note: Caring for Your High [...] Related Tools, and click ? HBP Trackers.? 6-310-JGR-USA-1 or ( ) National Heart, Lung and Blood [employer]: http://www.nhlbi.nih.gov/health/infoctr/index.htm Blood Pressure < 140/90 Blood Pressure 96/68(2023 2:34 PM TALENT ACQUISITION PARTNER) Cassie Parks Note: Caring for Your High [...] Related Tools, and click ? HBP Trackers.? 1-883-FTO-USA-1 or ( ) National Heart, Lung and Blood [employer]: http://www.nhlbi.nih.gov/health/infoctr/index.htm Exercise 5X per week (30 min [...] ? ? [place] Citizen Diabetes Association: www.diabetes.org 2-099-HOSTOOIR ( ) ? ? [place] Citizen Diabetes Association-Support group line: www.professional.diabetes.org ? ? [place] Citizen Heart Association: www.heart.org or 0-892-IPE-USA-1 ( ) [employer] MyPlate: www.AriadNEXTmyplate.gov Have labs drawn Lifestyle Rere Vargas Note: [...] on filedocumented in this encounter Care Teams Kilnman Relationship Specialty Start Date End Date Rosana Solo MD [address] [facility] [address] [place] [address] PCP - Attributed-[facility] 02/19/19 [place] [address] [facility] [address] [place] [address] Ophthalmology 04/06/16 documented as of this encounter
--- OUTSIDE RECORDS SUMMARY | 2024-04-03 01:01 | XMS_ITS | Encounter Summary ---
Author Organization [facility] Address [address] [place] [address] Care Team Providers Care Film Recordist Name Role Phone Ricco Andrew MD Unavailable [phone] Rosana Solo MD Unavailable [phone] Reason for Visit * Reason Comments Diabetes Follow-up Encounter Details Date Type Department Care Team (Late st Contact Info) Description 08/30/2019 2:00 PM CDT Office Visit [facility] - Family Medicine [address] [place], [place] [id number] Rosana Solo MD [facility] [address] [address] Type 2 diabetes mellitus with diabetic neuropathy, unspecified whether ad terminal makeup operator insulin use (HCC) (Primary Dx); Type 2 diabetes mellitus with stage 3 chronic kidney disease, unspecified whether fci insulin use; CKD (chronic kidney disease) stage 3, GFR 30-59 ml/min (HCC); Alzheimer's dementia without behavioral disturbance, unspecified timing of dementia onset; Hypothyroidism, adult; Skin-picking disorder Social History Tobacco Use Types [...] Sign Reading Time Taken Comments Blood Pressure 124/60 08/30/2019 2:16 PM CDT Pulse 89 08/30/2019 2:16 PM CDT Temperature 36.5 ??C (97.7 ??F) 08/30/2019 2:16 PM CD T Respiratory Rate 20 08/30/2019 2:16 PM CDT Oxygen Saturation - - Inhaled Oxygen Concentration - - Weight 78 kg (172 lb) 08/30/2019 2:16 PM CDT Height 165.1 cm (5' 5) 08/30/2019 2:16 PM CDT Body Mass Index 28.62 08/30/2019 2:16 PM CDT documented in this encounter Patient Instructions * Patient Instructions* Rosana Solo MD - 08/30/2019 2:41 PM CDT [facility] Your Diabetes ?? Get labs done today at [facility] Directions to [facility]: [facility] is located on the 1st floor of this building. Please take the elevators down to the lobby.As soon as you exit the elevator, take an immediate left out of the elevators and then go left downthe first hallway. [facility] is located in [address] on the left side just past the restrooms. ?? They orders have been transmitted electronically, so the should have them. ?? Follow a diabetic diet with healthy meals that are low salt, low fat, high fiber. For more information on a diabetic diet, please go to the [place] [employer] website at www.diabetes.org and select [...] minutes if trying to lose weight) The [place] [employer] recommends all adults [...] a healthy weight. Body mass index is 28.62 kg/m??. If your BMI (a ratio of [...] issues. ?? See me in 6 months documented in this encounter Progress Notes * Rosana Solo MD - 08/30/2019 2:31 PM CDT SUBJECTIVE: Mk Sanches is a 84 year old white male here for follow up chronic issues Accompanied by daughters Diabetes type II with neuropathy: Glucose monitoring is performed occasionally. Blood glucoses mostly 120-140s. Had a 341 in August 20. No obvious trigger. On glipizide 5 mg daily. Following DM diet: Gets meals on wheels Last dilated eye exam: 04/2018. On hold due to pandemic Kidney disease?: Yes Neuropathy?: Yes. Denies complaints or numbness or pain On JORGE- I or ARB?: yes. On lisinopril for renal protection On Statin?: no. Well controlled without statin and has been declined in past due to some concern about dementia Diabetic ROS: no chest pain, dyspnea or TIA's, no unusual visual symptoms, no new foot ulcers. Dementia/Alzheimers - on Namenda. Primarily short-term impairment. . meterman memory remains intact. Still likes to sleep alot Denies depression. Mood ok Hypothyroidism - on levothyroxine 75 mcg daily. Energy level ok. No falls. Some gait issues at times. Using cane now. May benefit from walker, but not sure he will use Rare cough. Denies shortness of breath or wheezing. Breathing doing well lately Denies chest pain, palpitations. Denies abdominal pain, nausea, vomiting, diarrhea Denies near syncope or dizzinesss Has been doing better w/ skin picking Denies depression or anxiety Past Medical History: Diagnosis Date ??? Benign hypertension with chronic kidney disease 02/05/2016 BP controlled off rx. resolved ??? Chronic renal failure ??? Dementia ??? Dermatitis ??? DM (diabetes mellitus) ??? HTN (hypertension) ??? Hx of rheumatic fever ??? Hypothyroid ??? Seasonal allergies ??? Trigger finger Body mass index is 28.62 kg/m??. Outpatient Medications Prior to Visit Medication Sig Dispense Refill ??? Acetaminophen (TYLENOL ARTHRITIS PAIN PO) Take 500 mg by mouth Two times a week ??? DIONICIO ASPIRIN REGIMEN PO Take 81 mg by mouth once daily ??? glipiZIDE (GLUCOTROL) 5 MG tablet TAKE 1 TABLET BY MOUTH DAILY BEFORE BREAKFAST REASONS: TYPE 2DIABETES 90 tablet 1 ??? ketoconazole (NIZORAL) 2 [...] Drug use: No OBJECTIVE: Physical Examination: Vitals: 08/30/19 1416 BP: 124/60 Pulse: 89 Resp: 20 Temp: 97.7 ??F (36.5 ??C) Weight: 78 kg (172 lb) Height: 1.651 m (5' 5) Body mass index is 28.62 kg/m??. No exam data present CrCl cannot [...] but pleasant Skin - healing scab on scalp. estephania scabs to rest of head and arms. Recent Labs Component Name 03/02/18 1347 03/01/17 1419 02/06/16 0844 CHOL 171 149 148 TRIG 230* 97 111 HDL 39* 43 48 LDLCALC 86 87 78 Recent Labs Component Name 02/28/19 1622 08/29/18 1432 03/02/18 1347 HGBA1C 7.2* 7.4* 7.2* Recent Labs Component Name 02/28/19 1622 08/29/18 1432 03/02/18 1347 08/31/17 1344 SODIUM - 137 136 138 POTASSIUM - 4.6 4.3 5.2* CHLORIDE - 104 104 105 CO2 - 23 26 29 BUN - 25 16 21 CREATININE - 1.51* 1.50* 1.70* GLUCOSE 160 177* 149* 165* CALCIUM - 9.1 8.4* 9.0 ALBUMIN - 4.1 3.5 3.7 ALKPHOS - 69 85 83 ALT - 12* 17 20 AST - 14 6 10 TBIL - 0.3 0.2 0.3 TPROT - 7.1 7.3 7.3 EGFR - 45 45 39 Recent Labs Component Name 03/02/18 1347 03/01/17 1419 02/06/16 0844 MICROALBCREA 6 <7 6 ASSESSMENT & PLAN: Type 2 diabetes mellitus with diabetic neuropathy, unspecified whether fci insulin use - Plan: RISK ADJUSTED VISIT, HEMOGLOBIN A1C W EAG, COMPREHENSIVE METABOLIC PANEL, CBC WITH DIFFERENTIAL, LIPID PROFILE REFLEX LDL DIRECT, MICROALB/CREAT RATIO URINE RANDOM PANEL Type 2 diabetes mellitus with stage 3 chronic kidney disease, unspecified whether ad terminal makeup operator insulinuse - Plan: RISK ADJUSTED VISIT, HEMOGLOBIN A1C W EAG, COMPREHENSIVE METABOLIC PANEL, CBC WITH DIFFERENTIAL, LIPID PROFILE REFLEX LDL DIRECT, MICROALB/CREAT RATIO URINE RANDOM PANEL CKD (chronic kidney disease) stage 3, GFR 30-59 ml/min Alzheimer's dementia without behavioral disturbance, unspecified timing of dementia onset Hypothyroidism, adult - Plan: TSH, T4 FREE Skin-picking disorder DM - check and adjust as needed. hgb A1c goal <7.5 given age and dementia. On Jorge-I for chronic kidney disease. Deferred statin previously as LDL not bad and family worried about it potentially worsening his memory Alzheimer- stable. Continue meds Hypothyroid - euthyroid. Adjust as needed Skin picking - doing better recently. Monitor May benefit from walker, but unclear if would use. Pt tried quad cane but tripped self with wider base Follow up in 6 months Or return to clinic sooner if persistent or worsening symptoms An After Visit Summary was printed and given to the patient. Rosana Solo MD documented in this encounter Plan of Treatment Upcoming Encounters Date Type Department Care Team (Late st Contact Info) Description 04/07/2024 10:00 AM RELAY DISPATCHER Office Visit [facility] [id number] [place] [address] [address] [place] [address] Evelin Blanco, [employer] [address] [place] [address] 06/06/2024 2:00 PM CDT Office Visit [facility] [id number] [place] [address] [address] [place] [address] [place] [address] [place] [address] documented as of this encounter Goals Goal Patient Goal Type Associated Problems Recent Progress Patient-Stated? Author Blood Pressure < 140/90 Blood Pressure 96/68(2023 2:34 PM RELAY DISPATCHER) Rere Vargas Note: [facility] for Your High [...] Where can I go for more information? [place] [employer] National Center: http://www.americanheart.org 1. In the top header, click ? Conditions? . 2. In the top header, click ? high blood pressure.? 3. For a printable blood pressure tracker, scroll toward the bottom of the page to Related Tools, and click ? HBP Trackers.? 0-616-JUA-USA-1 or ( ) National Heart, Lung and Blood [place]: http://www.nhlbi.nih.gov/health/infoctr/index.htm Blood Pressure < 140/90 Blood Pressure 96/68(2023 2:34 PM RELAY DISPATCHER) Rere Vargas Note: [facility] for Your High [...] Where can I go for more information? [place] [employer] National Center: http://www.americanheart.org 1. In the top header, click ? Conditions? . 2. In the top header, click ? high blood pressure.? 3. For a printable blood pressure tracker, scroll toward the bottom of the page to Related Tools, and click ? HBP Trackers.? 2-998-NVR-USA-1 or ( ) National Heart, Lung and Blood [place]: http://www.nhlbi.nih.gov/health/infoctr/index.htm Blood Pressure < 140/90 Blood Pressure 96/68(2023 2:34 PM RELAY DISPATCHER) No Cassie Marie Note: [facility] for Your [...] Where can I go for more information? [place] [employer] National Center: http://www.americanheart.org 1. In the top header, click ? Conditions? . 2. In the top header, click ? high blood pressure.? 3. For a printable blood pressure tracker, scroll toward the bottom of the page to Related Tools, and click ? HBP Trackers.? 4-716-FNL-USA-1 or ( ) National Heart, Lung and Blood [place]: http://www.nhlbi.nih.gov/health/infoctr/index.htm Exercise 5X per week (30 min per time) Exercise No Rere Kaufman Note: The [place] [employer] recommends all adults [...] how to manage your diabetes: ? ? [place] Diabetes Association: www.diabetes.org 7-304-AKJTULFT ( ) ? ? [place] Diabetes Association-Support group line: www.professional.diabetes.org ? ? [place] Heart Association: www.heart.org or 0-111-BWJ-USA-1 ( ) Avec Lab. MyPlate: www.Notable Solutionsmyplate.gov Have labs drawn Lifestyle No Rere Kaufman [...] Comments LIPID PROFILE REFLEX LDL DIRECT Routine 08/30/2019 3:05 PM CDT Type 2 diabetes mellitus with diabetic neuropathy, unspecified whether ad terminal makeup operator insulin use (HCC) Type 2 diabetes mellitus with stage 3 chronic kidney disease, unspecified whether fci insulin use HEMOGLOBIN A1C W EAG Routine 08/30/2019 3:05 PM CDT Type 2 diabetes mellitus with diabetic neuropathy, unspecified whether fci insulin use (HCC) Type 2 diabetes mellitus with stage 3 chronic kidney disease, unspecified whether ad terminal makeup operator insulin use MICROALB/CREAT RATIO URINE RANDOM PANEL Routine 08/30/2019 3:05 PM CDT Type 2 diabetes mellitus with diabetic neuropathy, unspecified whether ad terminal makeup operator insulin use (HCC) Type 2 diabetes mellitus with stage 3 chronic kidney disease, unspecified whether fci insulin use CBC W AUTO DIFFERENTIAL Routine 08/30/2019 3:05 PM CDT Type 2 diabetes mellitus with diabetic neuropathy, unspecified whether fci insulin use (HCC) Type 2 diabetes mellitus with stage 3 chronic kidney disease, unspecified whether ad terminal makeup operator insulin use COMPREHENSIVE METABOLIC PANEL Routine 08/30/2019 3:05 PM CDT Type 2 diabetes mellitus with diabetic neuropathy, unspecified whether fci insulin use (HCC) Type 2 diabetes mellitus with stage 3 chronic kidney disease, unspecified whether ad terminal makeup operator insulin use TSH Routine 08/30/2019 3:05 PM CDT Hypothyroidism, adult T4 FREE Routine 08/30/2019 3:05 PM CDT Hypothyroidism, adult documented in this encounter Results * T4 FREE (08/30/2019 3:05 PM CDT) [facility] T4 Free 1.01 0.70 - 1.48 ng/dL [facility] ACCOUNT BILL Blood BLOOD SPECIMEN / Unknown 08/30/2019 3:05 PM CDT 08/30/2019 Narrative Resulting Agency Comment Lab Testing performed at: [facility] [address] ?? [place] [phone] Rosana Solo MD LAB - CHEMISTRY ORDNatasha CHAHAL Performing Organization Address City/[facility]/ZIP Co de Phone Number [facility] ACCOUNT BILL [address] [place] [address] * TSH (08/30/2019 3:05 PM CDT) [facility] TSH 2.9756 0.35 - 4.94 uIU/mL [facility] ACCOUNT BILL Blood BLOOD SPECIMEN / Unknown 08/30/2019 3:05 PM CDT 08/30/2019 Narrative Resulting Agency Comment Lab Testing performed at: [place] [address] ?? [place] [phone] Rosana Solo MD LAB - CHEMISTRY MELYSSA CHAHAL Performing Organization Address City/[facility] Co de Phone Number [facility] ACCOUNT BILL [address] [place] [address] * MICROALB/CREAT RATIO URINE RANDOM PANEL (08/30/2019 3:05 PM CDT) [facility] Creatinine Urine 80.92 mg/dL [facility] ACCOUNT BILL Microalbumin Urine <0.5 mg/dL [facility] ACCOUNT BILL Microalbumin/Cre atinine Ratio NOT NEEDED mg/g [facility] ACCOUNT BILL Comment: Unable to calculate result since non-numeric result obtained for component test. Ancillary determined the test is not needed. Urine URINE SPECIMEN OBTAINED BY CLEAN CATCH PROCEDURE / Unknown 08/30/2019 3:05 PM CDT 08/30/2019 Narrative Resulting Agency Comment Lab Testing performed at: [facility] [address] ?? [place] [phone] Rosana Solo MD LAB - URINE CHEMISTR Y ORDERABLES [facility] ACCOUNT BILL [address] [place] [address] * (ABNORMAL) LIPID PROFILE REFLEX LDL DIRECT (08/30/2019 3:05 PM CDT) Cholesterol 177 <200 mg/dL [facility] ACCOUNT BILL Triglycerides 177(H) <150 mg/dL [facility] ACCOUNT BILL HDL Cholesterol 41 >40 mg/dL [facility] ACCOUNT BILL VLDL Calculated 35(H) <=30 mg/dL [facility] ACCOUNT BILL LDL Calculated 101 <130 mg/dL [facility] ACCOUNT BILL Comment:Not calculated Cholesterol/HDL Ratio 4.3 <4.5 [facility] ACCOUNT BILL LDL/HDL Ratio 2.5 <5.0 [facility] ACCOUNT BILL Blood BLOOD SPECIMEN / Unknown 08/30/2019 3:05 PM CDT 08/30/2019 Narrative Resulting Agency Comment Lab Testing performed at: [address] ?? [facility] [phone] Rosana Solo MD LAB - CHEMISTRY ORDE RABLES Performing Organization Address [facility] de Phone Number [facility] ACCOUNT BILL [address] [place] [address] * (ABNORMAL) CBC WITH DIFFERENTIAL (08/30/2019 3:05 PM CDT) WBC 7.6 4.4 - 10.7 x10E9/L [facility] ACCOUNT BILL RBC 4.73 3.80 - 5.40 x10E12/L [facility] ACCOUNT BILL Hemoglobin 14.5 12.0 - 17.6 gm/dL [facility] ACCOUNT BILL Hematocrit 46.0 35.2 - 51.7 % [facility] ACCOUNT BILL MCV 97.3 80.7 - 98.3 fl [facility] ACCOUNT BILL MCH 30.7 26.7 - 34.0 pg [facility] ACCOUNT BILL MCHC 31.5 30.8 - 35.9 gm/dL [facility] ACCOUNT BILL RDW 13.6 12.1 - 14.9 % [facility] ACCOUNT BILL Platelet Count 262 153 - 416 x10E9/L [facility] ACCOUNT BILL Comment:MPV FL BLOOD ([facility]) 1 2.0 fl 9.4-12.9 Granulocytes % 64.6 44.0 - 73.0 % [facility] ACCOUNT BILL Lymphocytes % 21.5 20.0 - 43.0 % [facility] ACCOUNT BILL Monocytes % 9.3 5.0 - 13.0 % [facility] ACCOUNT BILL Eosinophils % 3.0 0.0 - 6.0 % [facility] ACCOUNT BILL Basophils % 1.2 0.0 - 2.0 % [facility] ACCOUNT BILL Granulocytes Absolute 4.93 2.01 - 7.14 x10E9/L [facility] ACCOUNT BILL Lymphocytes Absolute 1.64 1.07 - 3.94 x10E9/L [facility] ACCOUNT BILL Monocytes Absolute 0.71 0.26 - 1.07 x10E9/L [facility] ACCOUNT BILL Eosinophils Absolute 0.23 0 - 0.47 x10E9/L [facility] ACCOUNT BILL Basophils Absolute 0.09(H) 0 - 0.08 x10E9/L [facility] ACCOUNT BILL Immature Granulocytes 0.4 0 - 1 % [facility] ACCOUNT BILL Immature Granulocytes Absolute 0.03 0.00 - 0.06 x10E9/L [facility] ACCOUNT BILL nRBC 0 /100 WBC [facility] ACCOUNT BILL Blood BLOOD SPECIMEN / Unknown 08/30/2019 3:05 PM CDT 08/30/2019 Narrative Resulting Agency Comment Lab Testing performed at: [address] ?? [facility] [phone] Rosana Solo MD LAB - HEMATOLOGY ORD ERABLES [facility] ACCOUNT BILL [address] [place] [address] * (ABNORMAL) COMPREHENSIVE METABOLIC PANEL (08/30/2019 3:05 PM CDT) Glucose 168(H) 70 - 105 mg/dL [facility] ACCOUNT BILL BUN 27(H) 8.4 - 25.7 mg/dL [facility] ACCOUNT BILL Creatinine 1.67(H) 0.72 - 1.25 mg/dL [facility] ACCOUNT BILL eGFR by MDRD 40 mL/min/1.7 3m2 [facility] ACCOUNT BILL eGFR by MDRD 48 mL/min/1.7 3m2 [facility] ACCOUNT BILL Sodium 137 136 - 145 mmol/L [facility] ACCOUNT BILL Potassium 4.7 3.5 - 5.1 mmol/L [facility] ACCOUNT BILL Chloride 103 98 - 107 mmol/L [facility] ACCOUNT BILL CO2 23 23 - 31 mmol/L [facility] ACCOUNT BILL Calcium 9.0 8.4 - 10.4 mg/dL [facility] ACCOUNT BILL Protein Total 7.4 6.4 - 8.3 gm/dL [facility] ACCOUNT BILL Albumin 4.2 3.2 - 4.6 gm/dL [facility] ACCOUNT BILL Bilirubin Total 0.2 0.2 - 1.2 mg/dL [facility] ACCOUNT BILL Alkaline Phosphatase 78 40 - 150 U/L [facility] ACCOUNT BILL AST 15 5 - 34 U/L [facility] ACCOUNT BILL ALT 16 0 - 61 U/L [facility] ACCOUNT BILL Blood BLOOD SPECIMEN / Unknown 08/30/2019 3:05 PM CDT 08/30/2019 Narrative Resulting Agency Comment Lab Testing performed at: [address] ?? [facility] [phone] Rosana Solo MD LAB - CHEMISTRY MELYSSA CHAHAL [facility] ACCOUNT BILL [address] [place] [address] * (ABNORMAL) HEMOGLOBIN A1C W EAG (08/30/2019 3:05 PM CDT) Hemoglobin A1c 7.8(H) 4.2 - 5.6 % [facility] ACCOUNT BILL Estimated Average Glucose 177 mg/dL [facility] ACCOUNT BILL Comment: The following cutoff levels are recommended by [place] Diab etes Association. A1c ??> 6.5% : [...] hemoglobin (HbF) exceeds 5% in the specimen. Blood BLOOD SPECIMEN / Unknown 08/30/2019 3:05 PM CDT 08/30/2019 Narrative Resulting Agency Comment Lab Testing performed at: [facility] [address] ?? [place] [phone] Rosana Solo MD LAB - CHEMISTRY MELYSSA CHAHAL [facility] ACCOUNT BILL [address] [place] [address] documented in this encounter Visit Diagnoses Diagnosis Type 2 diabetes mellitus with diabetic neuropathy, unspecified whether ad terminal makeup operator insulin use (HCC)- Primary Type 2 diabetes mellitus with stage 3 chronic kidney disease, unspecified whether ad terminal makeup operator insulin use (HCC) CKD (chronic kidney disease) stage 3, GFR 30-59 ml/min (HCC) Chronic kidney disease, Stage III (moderate) Alzheimer's dementia without behavioral disturbance, unspecified timing of dementia onset (HCC) Hypothyroidism, adult Other specified acquired hypothyroidism Skin-picking disorder documented in this encounter Care Teams Film Recordist Relationship Specialty Start Date End Date Rosana Solo MD [address] [facility] [address] [place] [address] PCP - Attributed-[facility] [place] 02/19/19 [place] [address] [place] [address] Ophthalmology 04/06/16 documented as of this encounter
--- OUTSIDE RECORDS SUMMARY | 2024-04-03 01:01 | XMS_ITS | Encounter Summary ---
Author Organization [facility] Address [address] [place] [address] Care Team Providers Care Career Technical Education Teacher Name Role Phone Ricco Andrew MD Unavailable [phone] Rosana Solo MD Unavailable [phone] Reason for Visit * Reason Comments ER UC Follow-up Encounter Details Date Type Department Care Team (Late st Contact Info) Description 11/07/2019 1:30 PM CDT Office Visit [facility] - Family Medicine [address] [place] [address] Rosana Solo MD [address] [address] Hospital discharge follow-up (Primary Dx); Pneumonia due to infectious organism, unspecified laterality, unspecified part of lung; Alzheimer's dementia without behavioral disturbance, unspecified timing [...] Reading Time Taken Comments Blood Pressure 122/70 11/07/2019 1:27 PM CDT Pulse 82 11/07/2019 1:27 PM CDT Temperature 36.9 ??C (98.5 ??F) 11/07/2019 1:27 PM CD T Respiratory Rate 20 11/07/2019 1:27 PM CDT Oxygen Saturation - - Inhaled Oxygen Concentration - - Weight 81.1 kg (178 lb 12.8 oz) 11/07/2019 1:27 PM CDT Height 175.3 cm (5' 9) 11/07/2019 1:27 PM CDT Body Mass Index 26.4 11/07/2019 1:27 PM CDT documented in this encounter Patient Instructions * Patient Instructions* Rosana Solo MD - 11/07/2019 2:07 PM CDT Images from the original note were not included. Patient Education Bacterial Pneumonia WORKERS COMPENSATION MANAGER: Bacterial pneumonia is a lung infection caused by bacteria. Your lungs become inflamed and cannot work well. Bacterial pneumonia germs are easily spread when an infected person coughs, sneezes, or has close contact with others. Common symptoms include the following: ?? Dry cough or coughing up mucus, which may be streaked with blood ?? Fever or chills ?? Shortness of breath, wheezing, or chest pain ?? Feeling tired easily ?? Fast heartbeat ?? Headache, muscle pain, or abdominal pain or discomfort ?? Trouble thinking clearly Seek care immediately if: ?? You are confused and cannot think clearly. ?? You are urinating less or not at all. ?? You cough up blood. ?? You have more trouble breathing, or your breathing seems faster than normal. ?? Your heart or pulse beats more than 100 times in 1 minute. ?? Your lips or fingernails turn blue. Contact your healthcare provider if: ?? Your symptoms are the same or get worse 48 hours after you start antibiotics. ?? You cannot eat or have loss of appetite, nausea, or are vomiting. ?? You have questions or concerns about your condition or care. Treatment depends on what caused your bacterial pneumonia and how bad your symptoms are. You may need any of the following: ?? Antibiotics help treat a bacterial infection. ?? Acetaminophen decreases pain and fever. It is available without a doctor's order. Ask how much to take and how often to take it. Follow directions. Read the labels of all other medicines you are using to see if they also contain acetaminophen, or ask your doctor or pharmacist. Acetaminophen can cause liver damage if not taken correctly. Do not use more than 4 grams (4,000 milligrams) total of acetaminophen in one day. ?? NSAIDs , such as ibuprofen, help decrease swelling, pain, and fever. This medicine is available with or without a doctor's order. NSAIDs can cause stomach bleeding or kidney problems in certain people. If you take blood thinner medicine, always ask your healthcare provider if NSAIDs are safe foryou. Always read the medicine label and follow directions. ?? Airway clearance techniques are exercises to help remove mucus so you can breathe more easily. Your healthcare provider will show you how to do the exercises. These exercises may be used along with machines or devices to help decrease your symptoms. ?? Respiratory support is given to help you breathe. You may receive oxygen to increase the level of oxygen in your blood. You may also need a machine to help you breathe. Manage your symptoms: ?? Rest as needed. Rest often while you recover. Slowly start to do more each day. ?? Drink liquids as directed. Ask how much liquid to drink each day and which liquids are best for you. Liquids help thin your mucus, which may make it easier for you to cough it up. ?? Do not smoke. Avoid secondhand smoke. Smoking increases your risk for pneumonia. Smoking also makes it harder for you to get better after you have had pneumonia. Ask your healthcare provider for information if you currently smoke and need help to quit. E-cigarettes or smokeless tobacco still contain nicotine. Talk to your healthcare provider before you use these products. ?? Use a cool mist humidifier to increase air moisture in your home. This may make it easier for you to breathe and help decrease your cough. ?? Keep your head elevated. You may be able to breathe better if you lie down with the head of yourbed up. Prevent bacterial pneumonia: ?? Prevent the spread of germs. Wash your hands often with soap and water. Use gel hand cleanser when there is no soap and water available. Do not touch your eyes, nose, or mouth unless you have washed your hands first. Cover your mouth when you cough. Cough into a tissue or your shirtsleeve so youdo not spread germs from your hands. If you are sick, stay away from others as much as possible. ?? Limit alcohol. Women should limit alcohol to 1 drink a day. Men should limit alcohol to 2 drinksa day. A drink of alcohol is 12 ounces of beer, 5 ounces of wine, or 1?? ounces of liquor. ?? Ask about vaccines. You may need a vaccine to help prevent pneumonia. Get an influenza (flu) vaccine every year as soon as it becomes available. Follow up with your healthcare provider as directed: Write down your questions so you remember to ask them during your visits. ?? Copyright [employer] 2019 Information is for End User's use only and may not be sold, redistributed or otherwise used for commercial purposes. All illustrations and images included in CareNotes?? are the copyrighted property of [employer] or [employer] The above information is an associate director financial aid only. It is not intended as medical advice for individual conditions or treatments. Talk to your doctor, nurse or pharmacist before following any medical regimen to see if it is safe and effective for you. documented in this encounter Progress Notes * Rosana Solo MD - 11/07/2019 1:55 PM CDT SUBJECTIVE: Mk Sanches is a 84 year old male here for follow up visit for ER visit Wednesday was lying down and when tried to get him up, noted to be striking his chest and answered having some chest pain. Then mentioned leg pain. Did not want to getout of bed. EMS checked him out. BP 88/50. BS 237. EMS took to ER for evaluation Had negativs test for COVID19 Had concern for possible blood infection. BCx was actually negative Then told possible pneumonia. Admitted Wednesday - Wednesday. Was discharged with azithriomycin. Still some slight cough Some mucus production No fevers No sob Denies chest pain or soreness Acting more normal Current Outpatient Medications on File Prior to Visit Medication Sig Dispense Refill ??? Acetaminophen (TYLENOL ARTHRITIS PAIN PO) Take 500 mg by mouth Two times a week ??? azithromycin (ZITHROMAX) 250 MG tablet Take 250 mg by mouth as directed ??? DIONICIO ASPIRIN REGIMEN PO Take 81 [...] in the electronic chart ROS: Gen: Denies fevers HEENT: Denies congestion, sorethroat, CV: Denies chest pain, palpitations Resp: Denies shortness of breath, dyspnea on exertion. M,ild cough that is improving GI: Denies abdominal pain, nausea, vomiting, diarrhea ROS limited due to dementia OBJECTIVE: Vitals: 11/07/19 1327 BP: 122/70 Pulse: 82 Resp: 20 Temp: 98.5 ??F (36.9 ??C) Weight: 81.1 kg (178 lb 12.8 oz) Height: 1.753 m (5' 9) Body mass index is 26.4 kg/m??. Appears: alert, well appearing, and in no distress Ears: bilateral TM's and external ear canals normal Lungs: clear to auscultation, no wheezes, rales, or rhonchi, no tachypnea, retractions, or cyanosis CV exam: regular rate and rhythm, normal S1 and S2 Abdominal exam: Soft, non-tender abdomen.No masses or hepatosplenomegaly noted. Neuro - A&Ox1-2. Non-focal Psych - pleasantly demented ASSESSMENT & PLAN: Hospital discharge follow-up Pneumonia due to infectious organism, unspecified laterality, unspecified part of lung Alzheimer's dementia without behavioral disturbance, unspecified timing of dementia onset Need hospital records, but appears improving. Lungs clear. Finish antibiotics. Monitor Advised to call back directly if there are further questions, or if these symptoms fail to improve as anticipated or worsen, or any new concerns arise An After Visit Summary was printed and given to the patient. Follow up as previously scheduled. Rosana Solo MD documented in this encounter Plan of Treatment Upcoming Encounters Date Type Department Care Team (Late st Contact Info) Description 04/07/2024 10:00 AM PRESS HAND SUPERVISOR Office Visit [facility] [id number] [place] [address] Evelin Blanco, DOT NET ARCHITECT-BINDERY MACHINE TENDER [id number] [place] [address] 06/06/2024 2:00 PM CDT Office Visit [address] [address] [place] [id number] [place] [phone] documented as of this encounter Goals Goal Patient Goal Type Associated Problems Recent Progress Patient-Stated? Author Blood Pressure < 140/90 Blood Pressure 96/68(2023 2:34 PM PRESS HAND SUPERVISOR) Rere Vargas Note: Caring for Your [...] Where can I go for more information? [place] Heart Association National Center: http://www.americanheart.org 1. In the top header, click ? Conditions? . 2. In the top header, click ? high blood pressure.? 3. For a printable blood pressure tracker, scroll toward the bottom of the page to Related Tools, and click ? HBP Trackers.? 9-198-OXD-USA-1 or ( ) National Heart, Lung and Blood [place]: http://www.nhlbi.nih.gov/health/infoctr/index.htm Blood Pressure < 140/90 Blood Pressure 96/68(2023 2:34 PM PRESS HAND SUPERVISOR) Rere Vargas Note: Caring for Your [...] Where can I go for more information? [place] Heart Association National Center: http://www.americanheart.org 1. In the top header, click ? Conditions? . 2. In the top header, click ? high blood pressure.? 3. For a printable blood pressure tracker, scroll toward the bottom of the page to Related Tools, and click ? HBP Trackers.? 9-855-KOU-USA-1 or ( ) National Heart, Lung and Blood [place]: http://www.nhlbi.nih.gov/health/infoctr/index.htm Blood Pressure < 140/90 Blood Pressure 96/68(2023 2:34 PM PRESS HAND SUPERVISOR) Cassie Parks Note: Caring for Your [...] Where can I go for more information? [place] Heart Association National Center: http://www.americanheart.org 1. In the top header, click ? Conditions? . 2. In the top header, click ? high blood pressure.? 3. For a printable blood pressure tracker, scroll toward the bottom of the page to Related Tools, and click ? HBP Trackers.? 6-150-NII-USA-1 or ( ) National Heart, Lung and Blood [place]: http://www.nhlbi.nih.gov/health/infoctr/index.htm Exercise 5X per week (30 min per time) Exercise No Rere Kaufman Note: The [place] College of Sports Medicine recommends all adults [...] how to manage your diabetes: ? ? [place] Diabetes Association: www.diabetes.org 6-614-XGAEZGQK ( ) ? ? [place] Diabetes Association-Support group line: www.professional.diabetes.org ? ? [place] Heart Association: www.heart.org or 2-384-OCF-USA-1 ( ) [employer] MyPlate: www.Liquidnetmyplate.gov Have labs drawn Lifestyle No Rere Kaufman [...] as of this encounter Visit Diagnoses Diagnosis Hospital discharge follow-up- Primary Other follow-up examination Pneumonia due to infectious organism, unspecified laterality, unspecified part of lung Alzheimer's dementia without behavioral disturbance, unspecified timing of dementia onset (HCC) documented in this encounter Care Teams Career Technical Education Teacher Relationship Specialty Start Date End Date Rosana Solo MD [address] [facility] [address] [place] [address] PCP - Attributed-[facility] 02/19/19 [place] [id number] [address] Ophthalmology 04/06/16 documented as of this encounter
--- OUTSIDE RECORDS SUMMARY | 2024-04-03 01:01 | XMS_ITS | Encounter Summary ---
Author Organization [facility] Address [address] [facility] [place] [address] Care Team Providers Care Warehouse Sorter Name Role Phone Ricco Andrew MD Unavailable [phone] Rosana Solo MD Unavailable [phone] Reason for Visit * Reason Comments Refill Request Encounter Details Date Type Department Care Team (Late st Contact Info) Description 02/27/2020 Refill [facility] - Family Medicine [address] [place], [place] [id number] Rosana Solo MD [address] [place] [phone] Refill Request Social History Tobacco Use [...] COVID-19? No / Unsure 02/01/2020 10:49 AM SPINDLE TESTER documented as of this encounter Miscellaneous Notes * Telephone Encounter - Alison Lowe - 02/27/2020 1:42 PM CST Last OV: 11/07/2019 Next OV: 03/04/2020 Last refill: 04/17/2019 Requested Prescriptions Pending Prescriptions Disp Refills ??? memantine (NAMENDA) 5 MG tablet [Pharmacy Med Name: MEMANTINE HCL 5 MG TABLET] 180 tablet 3 Sig: TAKE 1 TABLETS BY MOUTH 2 TIMES DAILY DLE TESTER documented in this encounter Plan of Treatment Upcoming Encounters Date Type Department Care Team (Late st Contact Info) Description 04/07/2024 10:00 AM SPINDLE TESTER Office Visit [facility] [phone] [place] [address] [address] [place] [address] Evelin Blanco APRN-CNP [address] [address] 06/06/2024 2:00 PM CDT Office Visit [facility] [address] [facility] [address] [place] [address] Chris Aden MD [id number] [place] [address] [address] [place] [address] documented as of this encounter Goals Goal Patient Goal Type Associated Problems Recent Progress Patient-Stated? Author Blood Pressure < 140/90 Blood Pressure 96/68(2023 2:34 PM SPINDLE TESTER) Rere Vargas Note: Caring for Your High [...] I go for more information? [place] Heart Association National Center: http://www.americanheart.org 1. In the top header, click ? Conditions? . 2. In the top header, click ? high blood pressure.? 3. For a printable blood pressure tracker, scroll toward the bottom of the page to Related Tools, and click ? HBP Trackers.? 0-934-XRI-USA-1 or ( ) National Heart, Lung and Blood [place] Center: http://www.nhlbi.nih.gov/health/infoctr/index.htm Blood Pressure < 140/90 Blood Pressure 96/68(2023 2:34 PM SPINDLE TESTER) Rere Vargas Note: Caring for Your High [...] I go for more information? Citizen [place] Heart Association National Center: http://www.americanheart.org 1. In the top header, click ? Conditions? . 2. In the top header, click ? high blood pressure.? 3. For a printable blood pressure tracker, scroll toward the bottom of the page to Related Tools, and click ? HBP Trackers.? 9-593-GMS-USA-1 or ( ) National Heart, Lung and Blood [place] Center: http://www.nhlbi.nih.gov/health/infoctr/index.htm Blood Pressure < 140/90 Blood Pressure 96/68(2023 2:34 PM SPINDLE TESTER) Cassie Parks Note: Caring for Your High [...] I go for more information? Citizen [place] Heart Association National Center: http://www.americanheart.org 1. In the top header, click ? Conditions? . 2. In the top header, click ? high blood pressure.? 3. For a printable blood pressure tracker, scroll toward the bottom of the page to Related Tools, and click ? HBP Trackers.? 2-362-VAI-USA-1 or ( ) National Heart, Lung and Blood [place] Center: http://www.nhlbi.nih.gov/health/infoctr/index.htm Exercise 5X per week (30 min per time) Exercise No Rere Kaufman Note: The [place] College of Sports Medicine recommends all adults [...] manage your diabetes: ? ? [place] Diabetes Association: www.diabetes.org 9-037-UHBUFDWI ( ) ? ? Citizen [place] Diabetes Association-Support group line: www.professional.diabetes.org ? ? [place] Heart Association: www.heart.org or 3-920-XRB-USA-1 ( ) [employer] MyPlate: www.Cambrios Technologiesmyplate.gov Have labs drawn Lifestyle Rere Vargas [...] on filedocumented in this encounter Care Teams Warehouse Sorter Relationship Specialty Start Date End Date Rosana Solo MD [address] [place] [phone] PCP - Attributed-[facility] 02/19/19 [place] [address] [address] [place] [address] Ophthalmology 04/06/16 documented as of this encounter
--- OUTSIDE RECORDS SUMMARY | 2024-04-03 01:01 | XMS_ITS | Encounter Summary ---
Author Organization [facility] Address [address] [facility] [place] [address] Care Team Providers Care Professional Sports Scout Name Role Phone Ricco Andrew MD Unavailable [phone] Rosana Solo MD Unavailable [phone] Reason for Visit * Reason Onset Date Comments Outreach Preventive Care 01/30/2020 Encounter Details Date Type Department Care Team (Late st Contact Info) Description 01/30/2020 Patient Outreach [facility] - Care Coordination [facility] [place] [phone] Cyn Cardona Outreach Preventive Care Social History Tobacco Use [...] COVID-19? No / Unsure 02/01/2020 10:49 AM PATIENT CARE SECRETARY documented as of this encounter Miscellaneous Notes * Telephone Encounter - Cyn Cardona - 02/01/2020 10:50 AM CST Chart analysis for Annual Care Gap Review. Health Maintenance reviewed for open care gaps and closure process initiated. HM items to be addressed: AWV, Diabetic Eye Exam and Flu Vaccine Health Maintenance Due Topic Date Due ??? ZOSTER VACCINE (1 of 2) 05/28/1987 ??? ANNUAL MEDICARE WELLNESS VISIT 02/05/2016 ??? DIABETES-EYE EXAM 05/06/2019 ??? INFLUENZA VACCINE (1) 11/21/2019 ??? DIABETES-FOOT EXAM WITH MONOFILAMENT 02/29/2020 MyChart Enrollment: Offered and accepted Patient was notified of the following health maintenance care gaps, and instructed on the importance of routine wellness testing. ??? Diabetic Measures o Eye Exam: patient will follow up with getting the test completed - Exam Location: N/A o A1C: results are current and available in the chart o Urine Microalbumin: N/A ??? Diagnostic Testing o Mammogram: N/A o Colon CA Screen: N/A ??? Immunization o Flu: patient will follow up with getting the test completed ??? AWV: appointment scheduled Cyn Cardona 02/01/2020 10:50 AM ENT CARE SECRETARY documented in this encounter Plan of Treatment Upcoming Encounters Date Type Department Care Team (Late st Contact Info) Description 04/07/2024 10:00 AM PATIENT CARE SECRETARY Office Visit [facility] [id number] [place] [address] [place] [address] Evelin Blanco, QA TEST ANALYST-FINGERPRINT CLASSIFIER [address] [address] 06/06/2024 2:00 PM CDT Office Visit [facility] [phone] [place] [address] [address] [place] [address] [place] [address] [facility] [address] [place] [address] [place] [phone] documented as of this encounter Goals Goal Patient Goal Type Associated Problems Recent Progress Patient-Stated? Author Blood Pressure < 140/90 Blood Pressure 96/68(2023 2:34 PM PATIENT CARE SECRETARY) Rere Vargas Note: Caring for Your High [...] Where can I go for more information? [place] Heart Association National Center: http://www.americanheart.org 1. In the top header, click ? Conditions? . 2. In the top header, click ? high blood pressure.? 3. For a printable blood pressure tracker, scroll toward the bottom of the page to Related Tools, and click ? HBP Trackers.? 0-692-DGV-USA-1 or ( ) National Heart, Lung and Blood [place]: http://www.nhlbi.nih.gov/health/infoctr/index.htm Blood Pressure < 140/90 Blood Pressure 96/68(2023 2:34 PM PATIENT CARE SECRETARY) Rere Vargas Note: Caring for Your High [...] Where can I go for more information? [place] Heart Association National Center: http://www.americanheart.org 1. In the top header, click ? Conditions? . 2. In the top header, click ? high blood pressure.? 3. For a printable blood pressure tracker, scroll toward the bottom of the page to Related Tools, and click ? HBP Trackers.? 2-107-SGX-USA-1 or ( ) National Heart, Lung and Blood [place]: http://www.nhlbi.nih.gov/health/infoctr/index.htm Blood Pressure < 140/90 Blood Pressure 96/68(2023 2:34 PM PATIENT CARE SECRETARY) Cassie Parks Note: Caring for Your High [...] Where can I go for more information? [place] Heart Association National Center: http://www.americanheart.org 1. In the top header, click ? Conditions? . 2. In the top header, click ? high blood pressure.? 3. For a printable blood pressure tracker, scroll toward the bottom of the page to Related Tools, and click ? HBP Trackers.? 5-460-GOE-USA-1 or ( ) National Heart, Lung and Blood [place]: http://www.nhlbi.nih.gov/health/infoctr/index.htm Exercise 5X per week (30 min per time) Exercise No Rere Kaufman Note: The [place] College of Sports Medicine recommends all adults [...] how to manage your diabetes: ? ? [place] Diabetes Association: www.diabetes.org 2-504-RNCYIAEF ( ) ? ? [place] Diabetes Association-Support group line: www.professional.diabetes.org ? ? [place] Heart Association: www.heart.org or 2-771-WZS-USA-1 ( ) [employer] MyPlate: www.Mobile Authenticationmyplate.gov Have labs drawn Lifestyle Rere Vargas Note: [...] on filedocumented in this encounter Care Teams Professional Sports Scout Relationship Specialty Start Date End Date Rosana Solo MD [address] [facility] [address] [place] [address] PCP - Attributed-[facility] 02/19/19 [place] [address] [facility] [address] [place] [phone] Ophthalmology 04/06/16 documented as of this encounter
--- OUTSIDE RECORDS SUMMARY | 2024-04-03 01:01 | XMS_ITS | Encounter Summary ---
Author Organization [facility] Address [address] [place] [address] Care Team Providers Care Lottery Manager Name Role Phone Ricco Andrew MD Unavailable [phone] Reason for Visit * Reason Comments Medication Check Encounter Details Date Type Department Care Team (Late st Contact Info) Description 08/29/2018 2:00 PM CDT Office Visit [facility] [address] [place], [place] [id number] Rosana Solo MD [address] [facility] [address] [place] [address] Type 2 diabetes mellitus with diabetic neuropathy, unspecified whether alf insulin use (HCC) (Primary Dx); Type 2 diabetes mellitus with stage 3 chronic kidney disease, 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; Benign hypertension with chronic kidney disease; Hypothyroidism, adult; Onychomycosis; Alzheimer's dementia without behavioral disturbance, unspecified timing [...] Sign Reading Time Taken Comments Blood Pressure 116/66 08/29/2018 1:37 PM CDT Pulse 80 08/29/2018 1:37 PM CDT Temperature - - Respiratory Rate 16 08/29/2018 1:37 PM CDT Oxygen Saturation 98% 08/29/2018 1:37 PM CDT Inhaled Oxygen Concentration - - Weight 81.6 kg (180 lb) 08/29/2018 1:37 PM CDT Height 165.1 cm (5' 5) 08/29/2018 1:37 PM CDT Body Mass Index 29.95 08/29/2018 1:37 PM CDT documented in this encounter Patient Instructions * Patient Instructions* Rosana Solo MD - 08/29/2018 2:07 PM CDT Caring For Your Diabetes ?? Get labs done today at [employer] Directions to [facility]: [facility] is located on the 1st floor of this building. Please take the elevators down to the lobby.As soon as you exit the elevator, take an immediate left out of the elevators and then go left downthe first hallway. [facility] is located in [address] on the left side just past the restrooms. ?? They orders have been transmitted electronically, so the should have them. ? Follow a diabetic diet with healthy meals that are low salt, low fat, high fiber. For more information on a diabetic diet, please go to the [employer] Diabetes Association website at www.diabetes.org and select [...] minutes if trying to lose weight) The [employer] recommends all adults [...] a healthy weight. Body mass index is 29.95 kg/(m^2). If your BMI (a ratio of your [...] Progress Notes * Rosana Solo MD - 08/29/2018 1:47 PM CDT SUBJECTIVE: Mk Sanches is a 83 year old white male here for follow up chronic issues Accompanied by daughters HTN: Home BP monitoring is not done. Cardiovascular ROS: denies chest pain, dyspnea on exertion or palpitations Denies near syncope. Current Cardiac Medications: lisinopril 10 mg Diabetes type II with neuropathy: Glucose monitoring is performed occasionally. Blood glucoses mostly 124-135. Rare in 90s. On glipizide 5 mg daily. Following DM diet: family limiting his diet Does pt exercise: not really Last dilated eye exam: 04/2018 Kidney disease?: Yes Neuropathy?: Yes. Denies complaints or numbness or pain On JAYDEN- I or ARB?: yes. On lisinopril On Statin?: no. Well controlled without statin and has been declined in past due to some concern about worsening dementia Diabetic ROS: no chest pain, dyspnea or TIA's, no unusual visual symptoms, no new foot ulcers. Dementia/Alzheimers - on Namenda. Primarily short-term impairment. Still struggles, but not really much worse. 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 Mood ok Hypothyroidism - on levothyroxine 75 mcg daily. Energy level ok. 3-4 weeks ago had fatigue x 1.5 days with blood sugars in 300 at that time. Resolved and doing better. Family has questions about how to improve his DM control and avoid fluctions Some questions about toe nail fungus Past Medical History: Diagnosis Date ??? Chronic renal failure ??? Dementia ??? Dermatitis ??? DM (diabetes mellitus) ??? HTN (hypertension) ??? Hx of rheumatic fever ??? Hypothyroid ??? Seasonal allergies ??? Trigger finger Body mass index is 29.95 kg/(m^2). Outpatient Medications Prior to Visit Medication Sig Dispense Refill ??? DIONICIO ASPIRIN REGIMEN PO ??? benzonatate (TESSALON) 100 MG capsule Take 1 capsule by mouth 3 times daily 0 ??? glipiZIDE (GLUCOTROL) 5 MG tablet TAKE [...] Date ??? NEGATIVE SURGICAL HISTORY Family History Problem Relation Age of Onset ??? Family history unknown: Yes Social History Substance Use Topics ??? Smoking status: Never Smoker ??? Smokeless tobacco: Current User Types: Chew ??? Alcohol use No Health Maintenance Topic Date Due ??? DTAP/TDAP/TD VACCINES (1 - Tdap) 1956 ??? DIABETES-STATIN 1977 ??? ZOSTER VACCINE (1 of 2) 05/28/1987 ??? ANNUAL MEDICARE WELLNESS VISIT 02/05/2016 ??? DIABETES-HGB A1C 08/31/2018 ??? DIABETES-FOOT EXAM WITH MONOFILAMENT 08/31/2018 ??? HCC (Chart Reviewer Use Only) 08/31/2018 ??? DIABETES-EYE EXAM 05/06/2019 ??? PNEUMOCOCCAL VACCINE Completed ??? INFLUENZA VACCINE Completed ??? HIB VACCINE Aged Out ??? MENINGOCOCCAL VACCINE Aged Out Immunization History Administered Date(s) Administered ??? FLU VACCINE TRI INC ANTIG PF 02/05/2016, 03/01/2017, 03/02/2018 ??? PNEUMOCOCCAL PPSV23 07/25/2012 ??? Pneumococcal Pcv13 Conj 03/02/2018 REVIEW OF SYSTEMS Constitutional: Denies fever Ears, nose, mouth, and throat: Denies nasal discharge. +Decreased hearing Respiratory: Denies cough, shortness of breath, wheeze Cardiovascular: Denies chest pain, palpitations Gastrointestinal: Denies abdominal pain Neurological: Denies syncope, dizziness. Denies TIA or stroke-like symptoms. Behavioral/Psych: Decreased memory. Denies depression OBJECTIVE: Physical Examination: Vitals: 08/29/18 1337 BP: 116/66 Pulse: 80 Resp: 16 SpO2: 98% Weight: 81.6 kg (180 lb) Height: 1.651 m (5' 5) Body mass index is 29.95 kg/(m^2). No exam data present CrCl cannot be calculated (Patient's most recent sCr result is older than the maximum 15 [...] II-XII grossly intact except for decreased hearing.Grossly non-focal abd - soft, nontender Psych/MSE: normal mood and affect. Decreased short-term memory, but pleasant A comprehensive diabetic foot exam was performed today on bare feet including visual inspection, monofilament, and assessment of pulses. sensation decreased to monofilament in toes. No ulcerative changes. Some calluses to base fo bialteral 1st MTP, but no ulcers. Moderate onychomycosis bilaterally. 2+DP and1+ PT bilaterally Recent Labs Component Name 03/02/18 1347 03/01/17 1419 02/06/16 0844 CHOL 171 149 148 TRIG 230* 97 111 HDL 39* 43 48 LDLCALC 86 87 78 Recent Labs Component Name 03/02/18 1347 08/31/17 1344 03/01/17 1419 HGBA1C 7.2* 7.9* 7.0* Recent Labs Component Name 03/02/18 1347 08/31/17 1344 03/01/17 1419 SODIUM 136 138 136 POTASSIUM 4.3 5.2* 5.2* CHLORIDE 104 105 104 CO2 26 29 27 BUN 16 21 25* CREATININE 1.50* 1.70* 1.70* GLUCOSE 149* 165* 86 CALCIUM 8.4* 9.0 9.0 ALBUMIN 3.5 3.7 3.3* ALKPHOS 85 83 82 ALT 17 20 12* AST 6 10 11 TBIL 0.2 0.3 0.4 TPROT 7.3 7.3 7.4 EGFR 45 39 39 Recent Labs Component Name 03/02/18 1347 03/01/17 1419 02/06/16 0844 MICROALBCREA 6 <7 6 ASSESSMENT & PLAN: Type 2 diabetes mellitus with diabetic neuropathy, 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 Can tolerate Hgb A1c goal of <7.5 given age/dementia. Dm edu. Dm diet, healthy lifestyle rec. 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 Cont rx - Plan: COMPREHENSIVE METABOLIC PANEL Hypothyroidism, adult - euthyroid. check albs - Plan: TSH+FREE T4+FREE T3 Onychomycosis - discussed Tx options. monitor. Declines oral rx Alzheimer's dementia without behavioral disturbance, unspecified timing of dementia onset - stable.cont rx Follow up in 6 months Or return to clinic sooner if persistent or worsening symptoms An After Visit Summary was printed and given to the patient. Rosana Solo MD * Errol Kahn - 08/29/2018 1:45 PM CDT BP 116/66 (BP SITE: LEFT ARM, BP POSITION: SITTING, BP CUFF SIZE: 11) Pulse 80 Resp 16 Ht 1.651 m (5' 5) Wt 81.6 kg (180 lb) SpO2 98% BMI 29.95 kg/m2 Patient Active Problem List Diagnosis Date Noted ??? Skin-picking disorder 07/23/2016 Priority: Not Prioritized encouraged to stop picking. I have some concern a few of his scabs may be SCCs or AKs, but reprots insurance would not cover derm eval ??? 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 CKD (chronic kidney disease) stage 3, GFR 30-59 ml/min 02/05/2016 Priority: Not Prioritized GFRs 03/01/2017 And 08/31/2017 ??? Type 2 diabetes mellitus with stage 3 chronic kidney disease 02/05/2016 Priority: Not Prioritized ??? Hypothyroidism, adult 02/05/2016 Priority: Not Prioritized ??? Benign hypertension with chronic kidney disease 02/05/2016 Priority: Not Prioritized ??? Alzheimer's dementia without behavioral disturbance 02/05/2016 Priority: Not Prioritized ??? Seasonal allergic rhinitis 02/05/2016 Priority: Not Prioritized ??? Type 2 diabetes mellitus with diabetic neuropathy 09/07/2012 Priority: Not Prioritized documented in this encounter Plan of Treatment Upcoming Encounters Date Type Department Care Team (Late st Contact Info) Description 04/07/2024 10:00 AM CASTING WHEEL OPERATOR Office Visit [facility] [address] [facility] [address] [place], [place] [id number] Evelin Blanco, DESIGN CONSULTANT-COMPLIANCE ADMINISTRATOR [address] [facility] [address] [place] [address] 06/06/2024 2:00 PM CDT Office Visit [facility] [address] [facility] [address] [place] [address] [place] [address] [facility] [address] [place] [address] documented as of this encounter Goals Goal Patient Goal Type Associated Problems Recent Progress Patient-Stated? Author Blood Pressure < 140/90 Blood Pressure 96/68(2023 2:34 PM CASTING WHEEL OPERATOR) Rere Vargas Note: Caring for Your [...] Where can I go for more information? [employer] National Center: http://www.americanheart.org 1. In the top header, click ? Conditions? . 2. In the top header, click ? high blood pressure.? 3. For a printable blood pressure tracker, scroll toward the bottom of the page to Related Tools, and click ? HBP Trackers.? 5-116-YNN-USA-1 or ( ) National Heart, Lung and Blood [place]: http://www.nhlbi.nih.gov/health/infoctr/index.htm Blood Pressure < 140/90 Blood Pressure 96/68(2023 2:34 PM CASTING WHEEL OPERATOR) Rere Vargas Note: Caring for Your [...] Where can I go for more information? [employer] National Center: http://www.americanheart.org 1. In the top header, click ? Conditions? . 2. In the top header, click ? high blood pressure.? 3. For a printable blood pressure tracker, scroll toward the bottom of the page to Related Tools, and click ? HBP Trackers.? 1-725-DOZ-USA-1 or ( ) National Heart, Lung and Blood [place]: http://www.nhlbi.nih.gov/health/infoctr/index.htm Exercise 5X per week (30 min per time) Exercise Rere Vargas Note: The [employer] recommends all adults [...] how to manage your diabetes: ? ? [employer] Diabetes Association: www.diabetes.org 5-359-JZSSFVIM ( ) ? ? [employer] Diabetes Association-Support group line: www.professional.diabetes.org ? ? 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 COMPREHENSIVE METABOLIC PANEL Routine 08/29/2018 2:32 PM CDT Type 2 diabetes mellitus with diabetic neuropathy, 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 [facility] [phone] Rosana Solo MD LAB - CHEMISTRY MELYSSA CHAHAL [facility] ACCOUNT BILL [address] [place] [address] * (ABNORMAL) COMPREHENSIVE METABOLIC PANEL (08/29/2018 2:32 PM CDT) Glucose 177(H) 74 - 106 mg/dL [facility] ACCOUNT BILL BUN 25 8.4 - 25.7 mg/dL [facility] ACCOUNT BILL Creatinine 1.51(H) 0.73 - 1.18 mg/dL [facility] ACCOUNT BILL eGFR by MDRD 45 mL/min/1.7 3m2 [facility] ACCOUNT BILL eGFR by MDRD 54 mL/min/1.7 3m2 [facility] ACCOUNT BILL Comment:Attention clinician: BUN Reference Range has changed. Sodium 137 136 - 145 mmol/L [facility] ACCOUNT BILL Potassium 4.6 3.5 - 5.1 mmol/L [facility] ACCOUNT BILL Chloride 104 98 - 107 mmol/L [facility] ACCOUNT BILL CO2 23 23 - 31 mmol/L [facility] ACCOUNT BILL Calcium 9.1 8.4 - 10.2 mg/dL [facility] ACCOUNT BILL Protein Total 7.1 6.4 - 8.3 gm/dL [facility] ACCOUNT BILL Albumin 4.1 3.2 - 4.6 gm/dL [facility] ACCOUNT BILL Bilirubin Total 0.3 0.2 - 1.2 mg/dL [facility] ACCOUNT BILL Alkaline Phosphatase 69 40 - 150 U/L [facility] ACCOUNT BILL AST 14 5 - 34 U/L [facility] ACCOUNT BILL ALT 12(L) 13 - 61 U/L [facility] ACCOUNT BILL Blood BLOOD SPECIMEN / Unknown 08/29/2018 2:32 PM CDT 08/29/2018 Narrative Resulting Agency Comment Lab Testing performed at: [address] ?? [place] [phone] Rosana Solo MD LAB - CHEMISTRY MELYSSA CHAHAL [facility] ACCOUNT BILL [address] [place] [address] * (ABNORMAL) HEMOGLOBIN A1C (08/29/2018 2:32 PM CDT) Hemoglobin A1c 7.4(H) 4.0 - 6.1 % [facility] ACCOUNT BILL Comment: AVERAGE GLUCOSE MG/DL BLOOD ??166 ?mg/dL Attention clinician: ??Reference Range has changed. Blood BLOOD SPECIMEN / Unknown 08/29/2018 2:32 PM CDT 08/29/2018 Narrative Resulting Agency Comment Lab Testing performed at: [facility] [address] [facility] ?? 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
--- OUTSIDE RECORDS SUMMARY | 2024-04-03 01:01 | XMS_ITS | Encounter Summary ---
Author Organization [facility] Address [address] [place] [address] Care Team Providers Care Electro Optics Engineer Name Role Phone Ricco Andrew MD Unavailable Rosana Solo MD Unavailable [phone] Reason for Visit * Reason Onset Date Comments Outreach Preventive Care 06/01/2019 Encounter Details Date Type Department Care Team (Late st Contact Info) Description 06/01/2019 Patient Outreach [facility] - Care Coordination [address] [place], [place] [address], [place] [address] Cyn Cardona Outreach Preventive Care Social History [...] * Telephone Encounter - Cyn Cardona - 06/01/2019 2:47 PM CDT Chart analysis for Annual Care Gap Review. HCC completed: Yes Health Maintenance reviewed for open care gaps and closure process initiated. Health Maintenance Topic Date Due ??? DTAP/TDAP/TD VACCINES (1 - Tdap) 1948 ??? DIABETES-STATIN 1977 ??? ZOSTER VACCINE (1 of 2) 05/28/1987 ??? ANNUAL MEDICARE WELLNESS VISIT 02/05/2016 ??? DIABETES-EYE EXAM 05/06/2019 ??? DIABETES-HGB A1C 08/30/2019 ??? DIABETES-FOOT EXAM WITH MONOFILAMENT 02/29/2020 ??? HCC (Chart Reviewer Use Only) 05/31/2020 ??? PNEUMOCOCCAL VACCINE 65+ Completed ??? INFLUENZA VACCINE Completed ??? HIB VACCINE Aged Out ??? MENINGOCOCCAL VACCINE Aged Out Patient was notified of the following health maintenance care gaps, and instructed on the importance of routine wellness testing. ??? Diabetic Measures o Eye Exam: discussed - Exam Location: N/A o A1C: results are current and available in the chart o Urine Microabumin: N/A ??? Diagnostic Testing o Mammogram: N/A o Colon CA Screen: N/A ??? Immunization o Flu: results are current and available in the chart ??? AWV: discussed and pt is considering, but would not commit. Cyn Cardona 06/01/2019 2:47 PM documented in this encounter Plan of Treatment Upcoming Encounters Date Type Department Care Team (Late st Contact Info) Description 04/07/2024 10:00 AM STUDIO ARTIST Office Visit [facility] [id number] [place] [address] [address] [place] [address] Evelin Blanco, FARM ASSISTANT-MACHINE ASSISTANT [address] [facility] [address] [place] [address] 06/06/2024 2:00 PM CDT Office Visit [facility] [id number] [place] [address] [address] [place] [address] Chris Aden [place] [id number] [place] [address] [address] T[place] [address] [place] [address] documented as of this encounter Goals Goal Patient Goal Type Associated Problems Recent Progress Patient-Stated? Author Blood Pressure < 140/90 Blood Pressure 96/68(2023 2:34 PM STUDIO ARTIST) Rere Vargas Note: Caring for Your High [...] Where can I go for more information? [employer] National Center: http://www.americanheart.org 1. In the top header, click ? Conditions? . 2. In the top header, click ? high blood pressure.? 3. For a printable blood pressure tracker, scroll toward the bottom of the page to Related Tools, and click ? HBP Trackers.? 0-404-BXE-USA-1 or ( ) National Heart, Lung and Blood [place]: http://www.nhlbi.nih.gov/health/infoctr/index.htm Blood Pressure < 140/90 Blood Pressure 96/68(2023 2:34 PM STUDIO ARTIST) Rere Vargas Note: Caring for Your High [...] Where can I go for more information? [employer] Heart Association National Center: http://www.americanheart.org 1. In the top header, click ? Conditions? . 2. In the top header, click ? high blood pressure.? 3. For a printable blood pressure tracker, scroll toward the bottom of the page to Related Tools, and click ? HBP Trackers.? 2-603-YAC-USA-1 or ( ) National Heart, Lung and Blood [place]: http://www.nhlbi.nih.gov/health/infoctr/index.htm Blood Pressure < 140/90 Blood Pressure 96/68(2023 2:34 PM STUDIO ARTIST) Cassie Parks Note: Caring for Your High [...] Where can I go for more information? [employer] Heart [employer] National Center: http://www.americanheart.org 1. In the top header, click ? Conditions? . 2. In the top header, click ? high blood pressure.? 3. For a printable blood pressure tracker, scroll toward the bottom of the page to Related Tools, and click ? HBP Trackers.? 2-296-USI-USA-1 or ( ) National Heart, Lung and Blood [place]: http://www.nhlbi.nih.gov/health/infoctr/index.htm Exercise 5X per week (30 min per time) Exercise No Rere Kaufman Note: The [employer] recommends all adults [...] how to manage your diabetes: ? ? [place] Diabetes Association: www.diabetes.org 5-165-BSJAWLEJ ( ) ? ? [place] Diabetes Association-Support group line: www.professional.diabetes.org ? ? [place] Heart Association: www.heart.org or 6-289-JDS-USA-1 ( ) [employer] MyPlate: www.Pcssomyplate.gov Have labs drawn Lifestyle Rere Vargas Note: [...] on filedocumented in this encounter Care Teams Electro Optics Engineer Relationship Specialty Start Date End Date Rosana Solo MD [address] [facility] [address] [place] [id number] PCP - Attributed-[facility] 02/19/19 [place] [address] [facility] [address] [place] [phone] Ophthalmology 04/06/16 documented as of this encounter
--- OUTSIDE RECORDS SUMMARY | 2024-04-03 01:01 | XMS_ITS | Encounter Summary ---
Author Organization [facility] Address [address] [facility] [place] [address] Care Team Providers Care Apple Peeler Operator Name Role Phone Ricco Andrew MD Unavailable [phone] Reason for Visit * Reason Onset Date Comments Referral 02/01/2019 Encounter Details Date Type Department Care Team (Late st Contact Info) Description 02/01/[address] [facility] Medical [facility] - Family Medicine [address] [place] [id number] Rosana Solo MD [address] [facility] [address] [place] [address] Referral Social History Tobacco Use Types Packs/Day [...] encounter Miscellaneous Notes * Telephone Encounter - Beni Giang - 02/02/2019 3:46 PM CST Referral has been completed and faxed. Auth#[id number] Valid From:02/02/19-08/01/19 Visits:6 HOBBER * Telephone Encounter - Ember Dumont - 02/01/2019 1:02 PM CST Mk Sanches is in need of an insurance referral for : Eye exam Diagnosis Code or reason being Seen: Eye Exam Date of Scheduled Appt- 02/03/2019 Specialist Name- [facility] Specialist Phone Number- [phone] Specialist Fax Number- [phone] Insurance- [facility] Care Improvement PCP- Rosana Solo MD Person calling for the referral- Cassie (daughter) HOBBER documented in this encounter Plan of Treatment Upcoming Encounters Date Type Department Care Team (Late st Contact Info) Description 04/07/2024 10:00 AM GEAR HOBBER Office Visit [facility] [id number] [place] [address] [address] [place], [place] [id number] Evelin Blanco, JOSETTE-PENS AND PENCILS DIPPER [id number] [place] [address] 06/06/2024 2:00 PM CDT Office Visit [facility] [id number] [place] [address] [address] [place], [place] [phone] Chris Aden [place] [id number] [place] [phone] documented as of this encounter Goals Goal Patient Goal Type Associated Problems Recent Progress Patient-Stated? Author Blood Pressure < 140/90 Blood Pressure 96/68(2023 2:34 PM GEAR HOBBER) Rere Vargas Note: Caring for Your High [...] Where can I go for more information? [place] Heart Association National Center: http://www.americanheart.org 1. In the top header, click ? Conditions? . 2. In the top header, click ? high blood pressure.? 3. For a printable blood pressure tracker, scroll toward the bottom of the page to Related Tools, and click ? HBP Trackers.? 2-206-LEW-USA-1 or ( ) National Heart, Lung and Blood [place]: http://www.nhlbi.nih.gov/health/infoctr/index.htm Blood Pressure < 140/90 Blood Pressure 96/68(2023 2:34 PM GEAR HOBBER) Rere Vargas Note: Caring for Your High [...] Where can I go for more information? [place] Heart Association National Center: http://www.americanheart.org 1. In the top header, click ? Conditions? . 2. In the top header, click ? high blood pressure.? 3. For a printable blood pressure tracker, scroll toward the bottom of the page to Related Tools, and click ? HBP Trackers.? 5-586-UVK-USA-1 or ( ) National Heart, Lung and Blood [place]: http://www.nhlbi.nih.gov/health/infoctr/index.htm Exercise 5X per week (30 min per time) Exercise Rere Vargas Note: The [place] College of [employer] recommends all adults [...] how to manage your diabetes: ? ? [place] Diabetes Association: www.diabetes.org 4-688-HUBRSNID ( ) ? ? [place] Diabetes Association-Support group line: www.professional.diabetes.org ? ? [place] Heart Association: www.heart.org or 2-354-TMR-USA-1 ( ) [employer] MyPlate: www.JNS Towersmyplate.gov Have labs drawn Lifestyle Rere Vargas Note: [...] on filedocumented in this encounter Care Teams Apple Peeler Operator Relationship Specialty [place] [address] [address] Ophthalmology 04/06/16 documented as of this encounter
--- OUTSIDE RECORDS SUMMARY | 2024-04-03 01:01 | XMS_ITS | Encounter Summary ---
Author Organization [facility] Address [address] [facility] [place] [address] Care Team Providers Care Legal Aide Name Role Phone Ricco Andrew MD Unavailable [phone] Reason for Visit * Reason Comments Refill Request Encounter Details Date Type Department Care Team (Late st Contact Info) Description 08/10/2018 Refill [facility] - Family Medicine [address] [place], [place] [phone] Rosana Solo MD [address] [phone] Refill Request Social History Tobacco [...] * Telephone Encounter - Vera Russo - 08/10/2018 9:10 AM CDT Requested Prescriptions Pending Prescriptions Disp Refills ??? loratadine (CLARITIN) 10 MG tablet [Pharmacy Med Name: LORATADINE 10 MG TABLET] 90 tablet 3 Sig: TAKE 1 TABLET BY MOUTH EVERY DAY ??? lisinopril (PRINIVIL; ZESTRIL) 2.5 MG tablet [Pharmacy Med Name: LISINOPRIL 2.5 MG TABLET] 90 tablet 1 Sig: TAKE 1 TAB BY MOUTH ONCE DAILY REASONS: DIABETIC KIDNEY PROTECTION ALLERGIES: Ibuprofen Date of last refill: Loratadine 08/02/2017 Lisinopril 03/02/2018 Last visit: 04/07/2018 Upcoming visit: 08/29/2018 documented in this encounter Plan of Treatment Upcoming Encounters Date Type Department Care Team (Late st Contact Info) Description 04/07/2024 10:00 AM CELLOPHANE WORKER Office Visit [facility] [id number] [place] [address] [address] [place], [place] [id number] Evelin Blanco APRN-CNP [address] [facility] [address] [place] [address] 06/06/2024 2:00 PM CDT Office Visit [facility] [id number] [place] [address] [address] [place], [place] [phone] [place] [address] [address] documented as of this encounter Goals Goal Patient Goal Type Associated Problems Recent Progress Patient-Stated? Author Blood Pressure < 140/90 Blood Pressure 96/68(2023 2:34 PM CELLOPHANE WORKER) Rere Vargas Note: Caring for Your High [...] Where can I go for more information? [place] Heart Association National Center: http://www.americanheart.org 1. In the top header, click ? Conditions? . 2. In the top header, click ? high blood pressure.? 3. For a printable blood pressure tracker, scroll toward the bottom of the page to Related Tools, and click ? HBP Trackers.? 7-481-XOX-USA-1 or ( ) National Heart, Lung and Blood [place]: http://www.nhlbi.nih.gov/health/infoctr/index.htm Blood Pressure < 140/90 Blood Pressure 96/68(2023 2:34 PM CELLOPHANE WORKER) Rere Vargas Note: Caring for Your High [...] Where can I go for more information? [place] Heart Association National Center: http://www.americanheart.org 1. In the top header, click ? Conditions? . 2. In the top header, click ? high blood pressure.? 3. For a printable blood pressure tracker, scroll toward the bottom of the page to Related Tools, and click ? HBP Trackers.? 4-547-OXB-USA-1 or ( ) National Heart, Lung and Blood [place]: http://www.nhlbi.nih.gov/health/infoctr/index.htm Exercise 5X per week (30 min per time) Exercise Rere Vargas Note: The [place] College of [employer] Medicine recommends all adults [...] how to manage your diabetes: ? ? [place] Diabetes Association: www.diabetes.org 9-201-UCSSTTUY ( ) ? ? [place] Diabetes Association-Support group line: www.professional.diabetes.org ? ? [place] Heart Association: www.heart.org or 5-179-CNS-USA-1 ( ) [employer] MyPlate: www.choosemyplate.gov Have labs drawn Lifestyle Rere [...] on filedocumented in this encounter Care Teams Legal Aide Relationship Specialty [place] [address] [address] Ophthalmology 04/06/16 documented as of this encounter
--- OUTSIDE RECORDS SUMMARY | 2024-04-03 01:01 | XMS_ITS | Encounter Summary ---
Author Organization [facility] Address [address] [facility] [place] [address] Care Team Providers Care Interior Design Faculty Member Name Role Phone Ricco Andrew MD Unavailable [phone] Reason for Visit * Reason Comments Refill Request Encounter Details Date Type Department Care Team (Late st Contact Info) Description 02/15/2019 Refill [facility] - Family Medicine [address] [place] [address] Rosana Solo MD [address] [address] Refill Request Social History Tobacco [...] encounter Miscellaneous Notes * Telephone Encounter - Kerrie Balderas - 02/15/2019 1:58 PM CST Last Refill: 08/22/2018 Last OV: 08/29/2018 Upcoming OV: 02/28/2019 Requested Prescriptions Pending Prescriptions Disp Refills ??? levothyroxine (SYNTHROID) 75 MCG tablet [Pharmacy Med Name: LEVOTHYROXINE 75 MCG TABLET] 90 tablet 1 Sig: TAKE 1 TABLET BY MOUTH EVERY MORNING RNATIONAL PROJECT MANAGER documented in this encounter Plan of Treatment Upcoming Encounters Date Type Department Care Team (Late st Contact Info) Description 04/07/2024 10:00 AM INTERNATIONAL PROJECT MANAGER Office Visit [facility] [id number] [place] [address] [address] [place] [address] Evelin Blanco APRN-DENIS [address] [facility] [address] [place] [address] 06/06/2024 2:00 PM CDT Office Visit [facility] [phone] [place] [address] [address] [place] [address] [place] [address] [phone] documented as of this encounter Goals Goal Patient Goal Type Associated Problems Recent Progress Patient-Stated? Author Blood Pressure < 140/90 Blood Pressure 96/68(2023 2:34 PM INTERNATIONAL PROJECT MANAGER) Rere Vargas Note: Caring for Your [...] Where can I go for more information? [place] Heart Association National Center: http://www.americanheart.org 1. In the top header, click ? Conditions? . 2. In the top header, click ? high blood pressure.? 3. For a printable blood pressure tracker, scroll toward the bottom of the page to Related Tools, and click ? HBP Trackers.? 6-824-WXJ-USA-1 or ( ) National Heart, Lung and Blood [place]: http://www.nhlbi.nih.gov/health/infoctr/index.htm Blood Pressure < 140/90 Blood Pressure 96/68(2023 2:34 PM INTERNATIONAL PROJECT MANAGER) Rere Vargas Note: Caring for Your [...] Where can I go for more information? [place] Heart Association National Center: http://www.americanheart.org 1. In the top header, click ? Conditions? . 2. In the top header, click ? high blood pressure.? 3. For a printable blood pressure tracker, scroll toward the bottom of the page to Related Tools, and click ? HBP Trackers.? 0-837-MQU-USA-1 or ( ) National Heart, Lung and Blood [place]: http://www.nhlbi.nih.gov/health/infoctr/index.htm Exercise 5X per week (30 min per time) Exercise Rere Vargas Note: The [place] [employer] recommends all adults [...] how to manage your diabetes: ? ? [place] Diabetes Association: www.diabetes.org 3-751-SNZEVKKB ( ) ? ? [place] Diabetes Association-Support group line: www.professional.diabetes.org ? ? [place] Heart Association: www.heart.org or 2-670-MGY-[facility]-1 ( ) [employer] MyPlate: www.Zen99myplate.gov Have labs drawn Lifestyle Rere Vargas Note: [...] on filedocumented in this encounter Care Teams Interior Design Faculty Member Relationship Specialty [place] [address] [address] Ophthalmology 04/06/16 documented as of this encounter
--- OUTSIDE RECORDS SUMMARY | 2024-04-03 01:01 | XMS_ITS | Encounter Summary ---
Author Organization [facility] Address [address] [place] [address] Care Team Providers Care Ham Clerk Name Role Phone Ricco Andrew MD Unavailable [phone] Rosana Solo MD Unavailable [phone] Reason for Visit * Reason Comments Medicare Subsequent Annual Wellness Visi t Encounter Details Date Type Department Care Team (Late st Contact Info) Description 03/04/2020 1:00 PM PHOTOVOLTAIC FABRICATION TECHNICIAN Office Visit [facility] [id number] [place] [address] [facility] [address] [id number] Routine general medical examination at a health care facility (Primary Dx); Alzheimer's dementia without behavioral disturbance, unspecified timing of dementia onset; Type 2 diabetes mellitus with diabetic neuropathy, unspecified whether long-term insulin use (HCC); Hypothyroidism, adult; Stage 3 chronic kidney disease, unspecified whether stage 3a or 3b CKD (HCC); Gait instability; Need for influenza vaccination Social History Tobacco Use Types Packs/Day [...] Time Taken Comments Blood Pressure 124/68 03/04/2020 1:07 PM PHOTOVOLTAIC FABRICATION TECHNICIAN Pulse 84 03/04/2020 1:07 PM PHOTOVOLTAIC FABRICATION TECHNICIAN Temperature 36 ??C (96.8 ??F) 03/04/2020 1:07 PM PHOTOVOLTAIC FABRICATION TECHNICIAN Respiratory Rate - - Oxygen Saturation - - Inhaled Oxygen Concentration - - Weight 77.1 kg (170 lb) 03/04/2020 1:07 PM PHOTOVOLTAIC FABRICATION TECHNICIAN Height - - Body Mass Index 25.1 11/07/2019 1:27 PM CDT documented in this encounter Patient Instructions * Patient Instructions* Clarice Hernandez APRN-CNP - 03/04/2020 1:22 PM PHOTOVOLTAIC FABRICATION TECHNICIAN Up date lab work today in [address] [place] [facility] Ask pharmacy about shingles vaccine Set up apt with eye MD and foot MD Follow up in 6 months or sooner if needed OVOLTAIC FABRICATION TECHNICIAN documented in this encounter Progress Notes * Clarice Hernandez APRN-CNP - 03/04/2020 1:00 PM CST MEDICARE ANNUAL WELLNESS VISIT REVIEW [...] Social History Socioeconomic History ??? Marital status: Spouse name: Not on file ??? Number of children: Not on file ??? Years of education: Not on file ??? Highest education level: Not on file Occupational History ??? Not on file Social Needs ??? Financial resource strain: Not on file ??? Food insecurity Worry: Not on file Inability: Not on file ??? Transportation needs Medical: Not on file Non-medical: Not on file Tobacco Use ??? Smoking status: Never Smoker ??? Smokeless tobacco: Current User Types: Chew Substance and Sexual Activity ??? Alcohol use: No ??? Drug use: No ??? Sexual activity: Not Currently Lifestyle ??? Physical activity Days per week: Not on file Minutes per session: Not on file ??? Stress: Not on file Relationships ??? Social connections Talks on phone: Not on file Gets together: Not on file Attends voodoo service: Not on file Active member of club or organization: Not on file Attends meetings of clubs or organizations: Not on file Relationship status: Not on file ??? Intimate partner violence Fear of current or ex partner: Not on file Emotionally abused: Not on file Physically abused: Not on file Forced sexual activity: Not on file Other Topics Concern ??? Not on file Social History Narrative ??? Not on file Family History Family history unknown: Yes Allergies Allergen Reactions ??? Ibuprofen Other HE HAS CKD AND SHOULD NOT TAKE NSAID'S Current Outpatient Medications Medication Sig Dispense Refill [...] facility-administered medications for this visit. CURRENT DIET limits carbohydrates, limits fats and cholestrol intake, limits salt intake PHYSICAL ACTIVITY Exercise: walking 15 minutes per day in house 5 times per week DEPRESSION SCREENING AND RISK FACTORS Depression risk factors identified: no PHQ-2:TOTAL POINT SCORE: 0 PHQ-9: HEALTH RISK ASSESSMENT, FUNCTIONAL ABILITY & SAFETY A Checklist for Your Medicare Wellness Annual Visit 1. During the past 4 weeks, how much bodily pain have you generally had?: No pain 2. During the past 4 weeks, was someone available to help you if you needed and wanted help? For example, if you felt very nervous, lonely or blue, got sick and had to stay in bed, or needed help just taking care of yourself?: Yes, as much as I wanted 3. During the past 4 weeks, what was the hardest physical activity you could do for at least 2 minutes?: (!) Light(Unable to compleate heavy activity due to unstady gait) 4. Can you get places out of walking distance without help? For example, can you travel alone by bus, taxi, or drive your own car?: (!) No(Daughter assists) 5. Can you shop for groceries or clothes without help?: (!) No(Daughter assists) 6. Can you prepare your own meals?: (!) No(Daughter assists) 7. Can you do your own housework without help?: (!) No(Daughter assists) 8. Can you handle your own money without help?: (!) No(Daughter assists) 9. Do you need help eating, bathing, dressing, or getting around your home?: (!) Yes(Daughter assists) 10. During the past 4 weeks, how would you rate your health in general?: Good 11. Are you having difficulties driving your car?: Not applicable, I do not use a car(Daughter doesnot allow him to drive) 12. Do you always fasten your seat belt when you are in a car?: Yes, usually PHYSICAL FUNCTIONING 13. Are you able to stand unassisted?: Yes 14. Are you able to reach for objects on a shelf?: Yes 15. Are you able to walk up and down steps?: Yes 16. Are you able to get in and out of a car?: Yes 17. Do you have throw rugs on the floor?: No 18. Do you have to walk around or step over cords or wires?: No 19. Does your home have grab bars in the bathroom?: Yes 20. Does your home have handrails on the stairs?: Yes(No stairs) 21. How often during the past 4 weeks, have you been bothered by any of the following problems? 21A. Fall or dizzy when standing up:: Never 21B. Sexual problems:: Never 21C. Trouble eating well: : Never 21D. Teeth or dentures:: Never 21E. Problems using the telephone:: N/A(Does not use phone) 21F. Tired or fatigued:: Seldom BEHAVIORAL AND FALL Have you fallen in the last year?: (!) Yes (document or confirm fall details are in the medical history)(No injury) Fall >2 x or injured from the fall?: No 23. Are you afraid of falling?: No 24. Are you a smoker?: No 25. During the past 4 weeks, how many drinks of wine, beer or other alcoholic beverages did you have?: No alcohol at all 26. Do you exercise for about 20 minutes 3 or more days a week?: Yes, some of the time.(Tries to walk) 27. Are there smoke alarms in your living area?: Yes 28. Are there carbon monoxide alarms in your living area?: (!) No(Pt educated) 29. In the bedroom, is the light near the bed difficult to reach?: No 30. Is the path from your bed to the bathroom free of obstacles with adequate lighting?: Yes 31. Have you lost or gained weight without trying in the last year?: No 32. Have you been given any information to help you with the followinA. Hazards in your house that might hurt you? `: Yes 32B. Keeping track of your medications?: Yes 33. How often do you have trouble taking medicines the way you have been told to take them?: Usually I take them as prescribed ASSISTIVE DEVICES 35. Assistive Devices: (!) walker;cane;bath bar/seat(Unsteady gait) FUNCTIONAL ABILITY/SAFETY SCREENING Was the patient's timed Up & Go test unsteady or longer than 12 seconds?: (!) Yes(Pt has a slowand unsteady gait- needs to use walker or cane) HEARING Hearing Test: Passed(Passed whsipered hearing test in office) Hearing Impairment: None Patient uses hearing aid(s): No CURRENT CARE PROVIDERS Patient Care Team: Rosana Sloo MD as PCP - General (Family Medicine) Rosana Solo MD as PCP - [facility] Ricco Johnson MD (Ophthalmology) END-OF-LIFE PLANNING ADVANCED DIRECTIVE: Information Given CODE STATUS Full Code PHYSICAL EXAM Vitals: 03/04/20 1307 BP: 124/68 Pulse: 84 Temp: 96.8 ??F (36 ??C) Weight: 77.1 kg (170 lb) Pain Assessment Pain Score: Zero Body mass index is 25.1 kg/m??. VISUAL ACUITY SCREEN Hearing Screening 125Hz 250Hz 500Hz 1000Hz 2000Hz 3000Hz 4000Hz 6000Hz 8000Hz Right ear: Left ear: Comments: Passed whispered hearing test in office today Vision Screening Comments: Forgot glasses today- going to eye MD 04/04/2020 needs new ones ASSESSMENT AND PLAN ICD-10-CM 1. Routine general medical examination at a health care facility Z00.00 2. Alzheimer's dementia without behavioral disturbance, unspecified timing of dementia onset G30.9 F02.80 3. Type 2 diabetes mellitus with diabetic neuropathy, unspecified whether long-term insulin use E11.40 AMB REFERRAL TO OPHTHALMOLOGY HEMOGLOBIN A1C W EAG AMB REFERRAL TO PODIATRY 4. Hypothyroidism, adult E03.9 TSH REFLEX FREE T4 5. Stage 3 chronic kidney disease, unspecified whether stage 3a or 3b CKD N18.30 COMPREHENSIVE METABOLIC PANEL 6. Gait instability R26.81 7. Need for influenza vaccination Z23 FLU VACCINE HIGH-DOSE QUAD IIV4 PF IM SCREENING SCHEDULE Health Maintenance Topic Date Due ??? DIABETES-EYE EXAM 05/06/2019 ??? DIABETES-HGB A1C 02/29/2020 ??? ZOSTER VACCINE (1 of 2) 06/02/2020 (Originally 05/28/1987) ??? HCC (Chart Reviewer Use Only) 05/31/2020 ??? DEPRESSION SCREENING 08/29/2020 ??? ANNUAL MEDICARE WELLNESS VISIT 03/04/2021 ??? DIABETES-FOOT EXAM WITH MONOFILAMENT 03/04/2021 ??? DTAP/TDAP/TD VACCINES (2 - Td) 10/02/2029 ??? PNEUMOCOCCAL VACCINE 65+ Completed ??? INFLUENZA VACCINE Completed ??? PNEUMOCOCCAL VACCINE Aged Out ??? HIB VACCINE Aged Out ??? MENINGOCOCCAL VACCINE Aged Out ??? DIABETES-STATIN Discontinued EDUCATION, COUNSELING, AND REFERRAL BASED ON THE PREVIOUS SCREENING Above screenings were performed and referrals were made as appropriately needed. Orders Placed This Encounter ??? FLU VACCINE HIGH-DOSE QUAD IIV4 PF IM ??? COMPREHENSIVE METABOLIC PANEL ??? HEMOGLOBIN A1C W EAG ??? TSH REFLEX FREE T4 ??? AMB REFERRAL TO OPHTHALMOLOGY ??? AMB REFERRAL TO PODIATRY He is over due for DM eye exam- orders given today He is up to date on Pneumonia and Tetanus vaccine. Flu shot given in office today Lab work is due today- orders given BILATERAL FOOT EXAM: Visual inspection: abnormal - thick long nails/ callous on bilateral feet Sensory exam with monofilament: decreased sensation bilaterally Pulse exam: 2+ Referral for foot MD given today Patient instructions: Up date lab work today in [address] [place] [address] [facility] Ask pharmacy about shingles vaccine Set up apt with eye MD and foot MD Follow up in 6 months or sooner if needed OVOLTAIC FABRICATION TECHNICIAN documented in this encounter Plan of Treatment Upcoming Encounters Date Type Department Care Team (Late st Contact Info) Description 04/07/2024 10:00 AM PHOTOVOLTAIC FABRICATION TECHNICIAN Office Visit [address] [address] Evelin Blanco APRN-CNP [id number] [place] [address] 06/06/2024 2:00 PM CDT Office Visit [address] [address] Chris Aden MD [address] [place] [address] documented as of this encounter Goals Goal Patient Goal Type Associated Problems Recent Progress Patient-Stated? Author Blood Pressure < 140/90 Blood Pressure 96/68(2023 2:34 PM PHOTOVOLTAIC FABRICATION TECHNICIAN) Rere Vargas Note: Caring for Your [...] Related Tools, and click ? HBP Trackers.? 4-197-DJL-USA-1 or ( ) National Heart, Lung and Blood [place]: http://www.nhlbi.nih.gov/health/infoctr/index.htm Blood Pressure < 140/90 Blood Pressure 96/68(2023 2:34 PM PHOTOVOLTAIC FABRICATION TECHNICIAN) Rere Vargas Note: Caring for Your [...] Related Tools, and click ? HBP Trackers.? 3-620-JFS-USA-1 or ( ) National Heart, Lung and Blood [place]: http://www.nhlbi.nih.gov/health/infoctr/index.htm Blood Pressure < 140/90 Blood Pressure 96/68(2023 2:34 PM PHOTOVOLTAIC FABRICATION TECHNICIAN) Cassie Parks Note: Caring for Your [...] Related Tools, and click ? HBP Trackers.? 2-395-YRA-USA-1 or ( ) National Heart, Lung and Blood [place]: http://www.nhlbi.nih.gov/health/infoctr/index.htm Exercise 5X per week (30 min [...] diabetes: ? ? [place] Diabetes Association: www.diabetes.org 6-946-TBLCDZRZ ( ) ? ? [place] Diabetes Association-Support group line: www.professional.diabetes.org ? ? [place] Heart Association: www.heart.org or 2-762-QVF-[place]-1 ( ) [place] MyPlate: www.LoopMemyplate.gov Have labs drawn Lifestyle Rere Vargas Note: [...] Diagnosis Comments HEMOGLOBIN A1C W EAG Routine 03/04/2020 2:24 PM PHOTOVOLTAIC FABRICATION TECHNICIAN Type 2 diabetes mellitus with diabetic neuropathy, unspecified whether termite exterminator helper insulin use (HCC) TSH REFLEX FREE T4 Routine 03/04/2020 2: 24 PM PHOTOVOLTAIC FABRICATION TECHNICIAN Hypothyroidism, adult COMPREHENSIVE METABOLIC PANEL Routine 03/04/2020 2:24 PM PHOTOVOLTAIC FABRICATION TECHNICIAN Stage 3 chronic kidney disease, unspecified whether stage 3a or 3b CKD (HCC) documented in this encounter Results * TSH REFLEX FREE T4 (03/04/2020 2:24 PM PHOTOVOLTAIC FABRICATION TECHNICIAN) TSH 2.913 0.350 - 4.940 uIU/mL [facility] ACCOUNT BILL Blood BLOOD SPECIMEN / Unknown 03/04/2020 2:24 PM PHOTOVOLTAIC FABRICATION TECHNICIAN 03/04/2020 Narrative Resulting Agency Comment Lab Testing performed at: [facility] [address] [address] ?? [place] [phone] Clarice Hernandez BOOTH CLEANER-MONORAIL CAR OPERATOR LAB - CHEMISTRY O RDERABLES [facility] ACCOUNT BILL [address] [place] [address] * (ABNORMAL) HEMOGLOBIN A1C W EAG (03/04/2020 2:24 PM PHOTOVOLTAIC FABRICATION TECHNICIAN) Hemoglobin A1c 7.9(H) 4.2 - 5.6 % [facility] ACCOUNT BILL Estimated Average Glucose 180 mg/dL [facility] ACCOUNT BILL Comment: The following cutoff levels are recommended by [place] Diab etes Association. A1c ??> 6.5% : [...] the specimen. Blood BLOOD SPECIMEN / Unknown 03/04/2020 2:24 PM PHOTOVOLTAIC FABRICATION TECHNICIAN 03/04/2020 Narrative Resulting Agency Comment Lab Testing performed at: [facility] [address] ?? [place] [phone] Clarice MICHELMONORAIL CAR OPERATOR LAB - CHEMISTRY O RDERABLES [facility] ACCOUNT BILL [address] [place] [address] * (ABNORMAL) COMPREHENSIVE METABOLIC PANEL (03/04/2020 2:24 PM PHOTOVOLTAIC FABRICATION TECHNICIAN) Glucose 218(H) 70 - 105 mg/dL [facility] ACCOUNT BILL BUN 22 8.4 - 25.7 mg/dL [facility] ACCOUNT BILL Creatinine 1.44(H) 0.72 - 1.25 mg/dL [facility] ACCOUNT BILL eGFR by MDRD 47 mL/min/1.7 3m2 [facility] ACCOUNT BILL eGFR by MDRD 57 mL/min/1.7 3m2 [facility] ACCOUNT BILL Sodium 135(L) 136 - 145 mmol/L [facility] ACCOUNT BILL Potassium 4.4 3.5 - 5.1 mmol/L [facility] ACCOUNT BILL Chloride 99 98 - 107 mmol/L [facility] ACCOUNT BILL CO2 26 23 - 31 mmol/L [facility] ACCOUNT BILL Calcium 8.5 8.4 - 10.4 mg/dL [facility] ACCOUNT BILL Protein Total 6.9 6.4 - 8.3 gm/dL [facility] ACCOUNT BILL Albumin 3.7 3.2 - 4.6 gm/dL [facility] ACCOUNT BILL Bilirubin Total 0.3 0.2 - 1.2 mg/dL [facility] ACCOUNT BILL Comment:Attention clinician: Reference Range change. Alkaline Phosphatase 74 40 - 150 U/L [facility] ACCOUNT BILL Comment:Attention clinician: Reference Range change. AST 13 5 - 34 U/L [facility] ACCOUNT BILL ALT 11 0 - 61 U/L [facility] ACCOUNT BILL Blood BLOOD SPECIMEN / Unknown 03/04/2020 2:24 PM PHOTOVOLTAIC FABRICATION TECHNICIAN 03/04/2020 Narrative Resulting Agency Comment Lab Testing performed at: [facility] [address] ?? [place] [phone] Clarice Hernandez APRN-MONORAIL CAR OPERATOR LAB - CHEMISTRY O RDERABLES [facility] ACCOUNT BILL [address] [place] [address] documented in this encounter Visit Diagnoses Diagnosis Routine general medical examination at a health care facility- Primary Alzheimer's dementia without behavioral disturbance, unspecified timing of dementia onset (HCC) Type 2 diabetes mellitus with diabetic neuropathy, unspecified whether termite exterminator helper insulin use (HCC) Hypothyroidism, adult Other specified acquired hypothyroidism Stage 3 chronic kidney disease, unspecified whether stage 3a or 3b CKD (HCC) Gait instability Abnormality of gait Need for influenza vaccination Need for prophylactic vaccination and inoculation against influenza documented in this encounter Care Teams Ham Clerk Relationship Specialty Start Date End Date Rosana Solo MD [address] [facility] [[email or web address] [address] [place] [id number] PCP - Attributed-[facility] 02/19/[address] [place] [address] [facility] [address] [facility] [[email or web address]] [address] [place] [address] Ophthalmology 04/06/16 documented as of this encounter
--- OUTSIDE RECORDS SUMMARY | 2024-04-03 01:01 | XMS_ITS | Encounter Summary ---
Author Organization [facility] Address [address] [place] [address] Care Team Providers Care Naval Gunfire Spotter Name Role Phone Ricco Andrew MD Unavailable [phone] Rosana Solo MD Unavailable [phone] Reason for Visit * Reason Comments Refill Request Encounter Details Date Type Department Care Team (Late Contact Info) Description 09/22/2019 Refill [facility] [address] [facility] [address] [place] [address] Rosana Solo MD [facility] [address] Refill Request Social History [...] (Late Contact Info) Description 04/07/2024 10:00 AM CHANGE OF ADDRESS CLERK Office Visit [facility] [address] [facility] [address] [place] [address] Buwalda, NIKITA Waters [address] [facility] [address] [place] [address] 06/06/2024 2:00 PM CDT Office Visit [facility] [address] [facility] [address] [place], [place] [id number] [place] [address] [facility] [address] [place] [address] documented as of this encounter Goals Goal Patient Goal Type Associated Problems Recent Progress Patient-Stated? Author Blood Pressure < 140/90 Blood Pressure 96/68(2023 2:34 PM CHANGE OF ADDRESS CLERK) Rere Vargas Note: Caring for Your [...] Where can I go for more information? [place] Heart Association National Center: http://www.americanheart.org 1. In the top header, click ? Conditions? . 2. In the top header, click ? high blood pressure.? 3. For a printable blood pressure tracker, scroll toward the bottom of the page to Related Tools, and click ? HBP Trackers.? 9-368-QOYUSA- or ( ) National Heart, Lung and Blood [place]: http://www.nhlbi.nih.gov/health/infoctr/index.htm Blood Pressure < 140/90 Blood Pressure 96/68(2023 2:34 PM CHANGE OF ADDRESS CLERK) Rere Vargas Note: Caring for Your [...] Where can I go for more information? [place] Heart Association National Center: http://www.americanheart.org 1. In the top header, click ? Conditions? . 2. In the top header, click ? high blood pressure.? 3. For a printable blood pressure tracker, scroll toward the bottom of the page to Related Tools, and click ? HBP Trackers.? 7-081-UALUSA- or ( ) National Heart, Lung and Blood [place]: http://www.nhlbi.nih.gov/health/infoctr/index.htm Blood Pressure < 140/90 Blood Pressure 96/68(2023 2:34 PM CHANGE OF ADDRESS CLERK) No Cassie Marie Note: Caring for Your [...] Where can I go for more information? [place] Heart Association National Center: http://www.americanheart.org 1. In the top header, click ? Conditions? . 2. In the top header, click ? high blood pressure.? 3. For a printable blood pressure tracker, scroll toward the bottom of the page to Related Tools, and click ? HBP Trackers.? 4-550-XGN-USA-1 or ( ) National Heart, Lung and Blood [place]: http://www.nhlbi.nih.gov/health/infoctr/index.htm Exercise 5X per week (30 min per time) Exercise Rere Vargas Note: The [place] College of Sports Medicine recommends all adults [...] how to manage your diabetes: ? ? [place] Diabetes Association: www.diabetes.org 8-225-MFVTIMTN ( ) ? ? [place] Diabetes Association-Support group line: www.professional.diabetes.org ? ? [place] Heart Association: www.heart.org or 1-895-JDA-USA-1 ( ) [employer] MyPlate: www.Ringleadr.commyplate.gov Have labs drawn Lifestyle Rere Varags Note: [...] on filedocumented in this encounter Care Teams Naval Gunfire Spotter Relationship Specialty Start Date End Date Rosana Solo MD [address] [facility] [address] [place] [address] PCP - Attributed-[facility] 02/19/19 [place] [address] [facility] [address] [place] [address] Ophthalmology 04/06/16 documented as of this encounter
--- OUTSIDE RECORDS SUMMARY | 2024-04-03 01:01 | XMS_ITS | Encounter Summary ---
Author Organization [facility] Address [address] [facility] [address] Care Team Providers Care Meteorological Observer Name Role Phone Ricco Andrew MD Unavailable [phone] Reason for Visit * Reason Comments Refill Request Encounter Details Date Type Department Care Team (Late st Contact Info) Description 08/22/2018 Refill [facility] - Family Medicine [address] [place], [place] [phone] Rosana Solo MD [facility] [place] [address] [address] Refill Request Social History Tobacco [...] * Telephone Encounter - Kerrie Balderas - 08/22/2018 10:45 AM CDT Last Refill: 09/03/2017 Last OV: 04/07/2018 Upcoming OV: 08/29/2018 Requested Prescriptions Pending Prescriptions Disp Refills ??? levothyroxine (SYNTHROID) 75 MCG tablet [Pharmacy Med Name: LEVOTHYROXINE 75 MCG TABLET] 90 tablet 1 Sig: TAKE 1 TABLET BY MOUTH EVERY MORNING documented in this encounter Plan of Treatment Upcoming Encounters Date Type Department Care Team (Late st Contact Info) Description 04/07/2024 10:00 AM PROTOCOL OFFICER Office Visit [facility] [id number] [place] [address] [address] [place] [address] Evelin Blanco APRN-DENIS [address] [address] 06/06/2024 2:00 PM CDT Office Visit [address] [address] Chris Aden MD [id number] [place] [address] documented as of this encounter Goals Goal Patient Goal Type Associated Problems Recent Progress Patient-Stated? Author Blood Pressure < 140/90 Blood Pressure 96/68(2023 2:34 PM PROTOCOL OFFICER) Rere Vargas Note: Caring for Your [...] Related Tools, and click ? HBP Trackers.? 4-734-EZO-USA-1 or ( ) National Heart, Lung and Blood [place]: http://www.nhlbi.nih.gov/health/infoctr/index.htm Blood Pressure < 140/90 Blood Pressure 96/68(2023 2:34 PM PROTOCOL OFFICER) Rere Vargas Note: Caring for Your [...] Related Tools, and click ? HBP Trackers.? 9-059-UAR-USA-1 or ( ) National Heart, Lung and Blood [place]: http://www.nhlbi.nih.gov/health/infoctr/index.htm Exercise 5X per week (30 min [...] diabetes: ? ? [place] Diabetes Association: www.diabetes.org 4-988-VWXVHVST ( ) ? ? [place] Diabetes Association-Support group line: www.professional.diabetes.org ? ? [place] Heart Association: www.heart.org or 9-514-[facility]-1 ( ) [employer] MyPlate: www.Stitchmyplate.gov Have labs drawn Lifestyle Rere Vargas Note: [...] on filedocumented in this encounter Care Teams Meteorological Observer Relationship Specialty [place] [address] [address] Ophthalmology 04/06/16 documented as of this encounter
--- OUTSIDE RECORDS SUMMARY | 2024-04-03 01:01 | XMS_ITS | Encounter Summary ---
Author Organization [facility] Address [address] [facility] [place] [address] Care Team Providers Care Piecer Up Name Role Phone Ricco Andrew MD Unavailable [phone] Rosana Solo MD Unavailable [phone] Reason for Visit * Reason Comments Refill Request Encounter Details Date Type Department Care Team (Late st Contact Info) Description 11/16/2019 Refill [facility] - Family Medicine [address] [place], [place] [phone] Rosana Solo MD [address] [place] [address] Refill Request Social History Tobacco Use [...] * Telephone Encounter - Alison Lowe - 11/17/2019 8:39 AM CDT Last OV: 11/07/2019 Next OV: 03/04/2020 Last refill: 08/10/2019 Requested Prescriptions Pending Prescriptions Disp Refills ??? levothyroxine (SYNTHROID) 75 MCG tablet [Pharmacy Med Name: LEVOTHYROXINE 75 MCG TABLET] 90 tablet 1 Sig: TAKE 1 TABLET BY MOUTH EVERY DAY IN THE MORNING documented in this encounter Plan of Treatment Upcoming Encounters Date Type Department Care Team (Late st Contact Info) Description 04/07/2024 10:00 AM ANGULAR DEVELOPER Office Visit [facility] [id number] [place] [address] [address] [place] [address] Evelin Blanco APRN-CNP [address] [address] 06/06/2024 2:00 PM CDT Office Visit [facility] [address] [place] [address] [address] [place] [address] [place] [address] [address] documented as of this encounter Goals Goal Patient Goal Type Associated Problems Recent Progress Patient-Stated? Author Blood Pressure < 140/90 Blood Pressure 96/68(2023 2:34 PM ANGULAR DEVELOPER) Rere Vargas Note: Caring for Your [...] Related Tools, and click ? HBP Trackers.? 6-979-ZQK-USA-1 or ( ) National Heart, Lung and Blood [place]: http://www.nhlbi.nih.gov/health/infoctr/index.htm Blood Pressure < 140/90 Blood Pressure 96/68(2023 2:34 PM ANGULAR DEVELOPER) Rere Vargas Note: Caring for Your [...] Related Tools, and click ? HBP Trackers.? 8-119-MCE-USA-1 or ( ) National Heart, Lung and Blood [place]: http://www.nhlbi.nih.gov/health/infoctr/index.htm Blood Pressure < 140/90 Blood Pressure 96/68(2023 2:34 PM ANGULAR DEVELOPER) Cassie Parks Note: Caring for Your [...] Related Tools, and click ? HBP Trackers.? 5-679-MNO-USA-1 or ( ) National Heart, Lung and Blood [place]: http://www.nhlbi.nih.gov/health/infoctr/index.htm Exercise 5X per week (30 [...] diabetes: ? ? [place] Diabetes Association: www.diabetes.org 3-543-KIVHPVGL ( ) ? ? [place] Diabetes Association-Support group line: www.professional.diabetes.org ? ? [place] Heart Association: www.heart.org or 3-497-RFG-USA-1 ( ) [employer] MyPlate: www.Echolocationmyplate.gov Have labs drawn Lifestyle No Rere Kaufman [...] on filedocumented in this encounter Care Teams Piecer Up Relationship Specialty Start Date End Date Rosana Solo MD [address] [place] [phone] PCP - Attributed-[facility] 02/19/19 [place] [address] [place] [address] Ophthalmology 04/06/16 documented as of this encounter
--- OUTSIDE RECORDS SUMMARY | 2024-04-03 01:02 | XMS_ITS | Encounter Summary ---
Author Organization [facility] Address [address] [facility] [place] [address] Care Team Providers Care Employee Welfare Manager Name Role Phone Ricco Andrew MD Unavailable [phone] Reason for Visit * Reason Onset Date Comments Referral Request 12/28/2017 Encounter Details Date Type Department Care Team (Late st Contact Info) Description 12/28/2017 Telephone [facility] Medical [facility] - Family Medicine [address] [place], [place] [phone] Rosana Solo MD [address] [facility] [address] [place] [address] Referral Request Social History Tobacco Use Types Packs/Day [...] encounter Miscellaneous Notes * Telephone Encounter - Evelyne Conner - 12/29/2017 8:15 AM CDT Called patient to advise the referral has been completed and faxed. Auth#[id number] Valid From:12/28/2017-06/26/2018 Visits:6 * Telephone Encounter - Christy Rivera - 12/28/2017 3:13 PM CDT Mk Sanches is in need of an insurance referral for : Diagnosis Code or reason being Seen: eye exam Date of Scheduled Appt- 01/11/18 2:00 pm Specialist Name- Dr. Negar Dey Specialist Phone Number- [phone] Specialist Fax Number- [phone] Insurance- [facility] medicare complete hmo PCP- Rosana Solo MD Person calling for the referral- Cassie documented in this encounter Plan of Treatment Upcoming Encounters Date Type Department Care Team (Late st Contact Info) Description 04/07/2024 10:00 AM CONTRACTING SUPPORT SPECIALIST Office Visit [facility] [phone] [place] [address] [address] [place] [address] Evelin Blanco APRN-PLATFORM MATERIAL HANDLING SUPERVISOR [address] [facility] [address] [place] [address] 06/06/2024 2:00 PM CDT Office Visit [facility] [address] [place] [address] [address] [place] [address] [place] [address] [phone] documented as of this encounter Goals Goal Patient Goal Type Associated Problems Recent Progress Patient-Stated? Author Blood Pressure < 140/90 Blood Pressure 96/68(2023 2:34 PM CONTRACTING SUPPORT SPECIALIST) Rere Vargas Note: Caring for Your [...] Where can I go for more information? [place] Heart Association National Center: http://www.americanheart.org 1. In the top header, click ? Conditions? . 2. In the top header, click ? high blood pressure.? 3. For a printable blood pressure tracker, scroll toward the bottom of the page to Related Tools, and click ? HBP Trackers.? 2-437-BKE-USA-1 or ( ) National Heart, Lung and Blood [place]: http://www.nhlbi.nih.gov/health/infoctr/index.htm Blood Pressure < 140/90 Blood Pressure 96/68(2023 2:34 PM CONTRACTING SUPPORT SPECIALIST) Rere Vargas Note: Caring for Your [...] Where can I go for more information? [place] Heart Association National Center: http://www.americanheart.org 1. In the top header, click ? Conditions? . 2. In the top header, click ? high blood pressure.? 3. For a printable blood pressure tracker, scroll toward the bottom of the page to Related Tools, and click ? HBP Trackers.? 9-780-XKL-USA-1 or ( ) National Heart, Lung and Blood [place]: http://www.nhlbi.nih.gov/health/infoctr/index.htm Exercise 5X per week (30 min per time) Exercise No Rere Kaufman Note: The [place]gr[place] College of Sports Medicine recommends all adults [...] how to manage your diabetes: ? ? [place] Diabetes Association: www.diabetes.org 1-006-QVXTCSMI ( ) ? ? [place] Diabetes Association-Support group line: www.professional.diabetes.org ? ? [place] Heart Association: www.heart.org or 2-017-PMH-USA-1 ( ) [employer] MyPlate: www.Informativemyplate.gov Have labs drawn Lifestyle Rere Vargas Note: [...] on filedocumented in this encounter Care Teams Employee Welfare Manager Relationship Specialty [place] [address] [address] Ophthalmology 04/06/16 documented as of this encounter
--- OUTSIDE RECORDS SUMMARY | 2024-04-03 01:02 | XMS_ITS | Encounter Summary ---
Author Organization [facility] Address [address] [place] [address] Care Team Providers Care Speeder Operator Name Role Phone Ricco Andrew MD Unavailable [phone] Reason for Visit * Reason Onset Date Comments Referral 01/11/2018 Encounter Details Date Type Department Care Team (Late st Contact Info) Description 01/11/2018 Telephone [facility] Medical [facility] - Family Medicine [address] [place], [place] [phone] Rosana Solo MD [address] [address] Referral Social History Tobacco Use Types [...] encounter Miscellaneous Notes * Telephone Encounter - Kala Dc - 01/11/2018 10:53 AM CDT Printed and faxed to the number provided. * Telephone Encounter - Christy Rivera - 01/11/2018 10:25 AM CDT Who is calling? Cassie If other than self is caller listed on the HIPAA? yes If caller is anyone other than listed above, where are they calling from? N/a What is the reason for call? Called stating the fax number she gave for the referral to Dr. Basurto was incorrect. She asks if it could be faxed again to correct fax number [phone], patient's appointment is today Expected Response from the Clinic? ( ex. Call back, etc..) documented in this encounter Plan of Treatment Upcoming Encounters Date Type Department Care Team (Late st Contact Info) Description 04/07/2024 10:00 AM BENEFITS ADVISOR Office Visit [facility] [phone] [place] [address] [place] [address] Evelin Blanco, BOOKKEEPING MANAGER-DRIVER COURIER [address] [phone] 06/06/2024 2:00 PM CDT Office Visit [facility] [address] [place] [address] [address] [place], [place] [phone] [place] [address] [phone] documented as of this encounter Goals Goal Patient Goal Type Associated Problems Recent Progress Patient-Stated? Author Blood Pressure < 140/90 Blood Pressure 96/68(2023 2:34 PM BENEFITS ADVISOR) No Rere Kaufman Note: Caring for Your [...] Where can I go for more information? [place] Heart Association National Center: http://www.americanheart.org 1. In the top header, click ? Conditions? . 2. In the top header, click ? high blood pressure.? 3. For a printable blood pressure tracker, scroll toward the bottom of the page to Related Tools, and click ? HBP Trackers.? 2-306-COW-USA-1 or ( ) National Heart, Lung and Blood [place]: http://www.nhlbi.nih.gov/health/infoctr/index.htm Blood Pressure < 140/90 Blood Pressure 96/68(2023 2:34 PM BENEFITS ADVISOR) Rere Vargas Note: Caring for Your [...] Where can I go for more information? [place] Heart Association National Center: http://www.americanheart.org 1. In the top header, click ? Conditions? . 2. In the top header, click ? high blood pressure.? 3. For a printable blood pressure tracker, scroll toward the bottom of the page to Related Tools, and click ? HBP Trackers.? 3-587-PYY-USA-1 or ( ) National Heart, Lung and Blood [place]: http://www.nhlbi.nih.gov/health/infoctr/index.htm Exercise 5X per week (30 min per time) Exercise No Rere Kaufman Note: The [place] College of Sports Medicine recommends all adults [...] how to manage your diabetes: ? ? [place] Diabetes Association: www.diabetes.org 5-488-QLEXMGRO ( ) ? ? Dutch Diabetes Association-Support group line: www.professional.diabetes.org ? ? [place] Heart Association: www.heart.org or 2-687-CTU-USA-1 ( ) [place] MD MyPlate: www.yoonewmyplate.gov Have labs drawn Lifestyle No Rere Kaufman [...] on filedocumented in this encounter Care Teams Speeder Operator Relationship Specialty [place] [address] [address] Ophthalmology 04/06/16 documented as of this encounter
--- OUTSIDE RECORDS SUMMARY | 2024-04-03 01:02 | XMS_ITS | Encounter Summary ---
Author Organization [facility] Address [address] [place] [address] Care Team Providers Care Geodetic Technician Name Role Phone Ricco Andrew MD Unavailable [phone] Encounter Details Date Type Department Care Team (Latest Contact Info) Description 04/07/2018 4:20 PM GAUGE CONTROLLER - 04/07/2018 11:59 PM [facility] Hospital Encounter [facility] Imaging Services - Radiology [phone] [place] [address] Rosana Solo MD [address] [facility] [address] [place] [address] Discharge Disposition: Home or Self Care Social [...] Sig Dispensed Refills Start Date End Date DIONICIO ASPIRIN REGIMEN PO Take 81 mg by mouth once daily benzonatate (TESSALON) 100 MG capsule Take 1 capsule by mouth 3 times daily 0 03/28/2018 08/29/2018 glipiZIDE (GLUCOTROL) 5 MG tablet TAKE 1 TABLET BY MOUTH DAILY BEFORE BREAKFAST REASONS: TYPE 2 DIABETES 90 tablet 1 10/18/2017 04/18/2018 HYDROcodone-acetamino phen (NORCO) 5-325 MG tablet Take 1 tablet by mouth every 4 hours as needed 12/12/2012 08/29/2018 ketoconazole (NIZORAL) 2 % shampooIndications:Se borrheic Dermatitis of Scalp Apply to affected area Three times a week Reasons: Dandruff 120 mL 1 08/31/2017 01/26/2022 levothyroxine (SYNTHROID) 75 MCG tablet TAKE 1 TAB BY MOUTH DAILY BEFORE BREAKFAST REASONS: UNDERACTIVE THYROID 90 tablet 1 09/03/2017 08/22/2018 lisinopril (PRINIVIL; ZESTRIL) 2.5 MG tabletIndications:jamilah betic kidney protection TAKE 1 TAB BY MOUTH ONCE DAILY Reasons: diabetic kidney protection 90 tablet 1 03/02/2018 08/10/2018 loratadine (CLARITIN) 10 MG tablet TAKE 1 TABLET BY MOUTH EVERY DAY 90 tablet 3 08/02/2017 08/10/2018 memantine (NAMENDA) 5 MG tablet TAKE 1 TABLETS BY MOUTH 2 TIMES DAILY 180 tablet 1 11/11/2017 05/04/2018 methylPREDNISolone (MEDROL) 4 MG tablet Take as directed 09/09/201212/2018 mirtazapine (REMERON) 30 MG tablet Take 30 mg by mouth 07/25/2012 08/30/19 19 triamcinolone acetonide (KENALOG) 0.1 % cream 04/27/2012 08/29/2018 documented as of this encounter Plan of Treatment Upcoming Encounters Date Type Department Care Team (Late st Contact Info) Description 04/07/2024 10:00 AM GAUGE CONTROLLER Office Visit [facility] [address] [place] [address] Evelin Blanco, CONTINUOUS PROCESS COFFEE ROASTER-FROG FARMER [address] [facility] [address] [place] [address] 06/06/2024 2:00 PM CDT Office Visit [facility] [address] [facility] [address] [place] [address] [place] [address] [address] documented as of this encounter Goals Goal Patient Goal Type Associated Problems Recent Progress Patient-Stated? Author Blood Pressure < 140/90 Blood Pressure 96/68(2023 2:34 PM GAUGE CONTROLLER) Rere Vargas Note: Caring for Your [...] Related Tools, and click ? HBP Trackers.? 0-723-AYH-USA-1 or ( ) National Heart, Lung and Blood [place]: http://www.nhlbi.nih.gov/health/infoctr/index.htm Blood Pressure < 140/90 Blood Pressure 96/68(2023 2:34 PM GAUGE CONTROLLER) Rere Vargas Note: Caring for Your [...] Related Tools, and click ? HBP Trackers.? 7-881-FAW-USA-1 or ( ) National Heart, Lung and Blood [place]: http://www.nhlbi.nih.gov/health/infoctr/index.htm Exercise 5X per week (30 [...] diabetes: ? ? [place] Diabetes Association: www.diabetes.org 2-993-APDKLYYC ( ) ? ? [place] Diabetes Association-Support group line: www.professional.diabetes.org ? ? [place] Heart Association: www.heart.org or 7-693-OWO-USA-1 ( ) [place] MyPlate: www.choosemyplate.gov Have labs drawn Lifestyle No [...] Name Priority Date/Time Associated Diagnosis Comments XR CHEST 2VW Routine 04/07/2018 4:35 PM GAUGE CONTROLLER Acute bronchitis, unspecified organism documented in this encounter Results * XR CHEST 2VW (04/07/2018 4:35 PM GAUGE CONTROLLER) Anatomical Region Laterality Modality Chest Radiographic Apolonia ging 04/07/2018 5:12 PM GAUGE CONTROLLER Narrative 04/07/2018 5:13 PM GAUGE CONTROLLER Chest Two Views History: Acute bronchitis, unspecified [...] Rosana Solo MD DIAGNOSTIC IMAGING O RDERABLES documented in this encounter Visit Diagnoses Diagnosis Acute bronchitis, unspecified organism documented in this encounter Care Teams Geodetic Technician Relationship Specialty [place] [address] [facility] [address] [place] [address] Ophthalmology 04/06/16 documented as of this encounter
--- OUTSIDE RECORDS SUMMARY | 2024-04-03 01:02 | XMS_ITS | Encounter Summary ---
Author Organization [facility] Address [address] [facility] [place] [address] Care Team Providers Care Medical Billing Specialist Name Role Phone Ricco Andrew MD Unavailable [phone] Reason for Visit * Reason Comments Refill Request Encounter Details Date Type Department Care Team (Late st Contact Info) Description 10/25/2017 Refill [facility] - Family Medicine [address] [place] [address] Rosana Solo MD [address] [address] Refill Request Social History Tobacco [...] encounter Miscellaneous Notes * Telephone Encounter - Geraldine Sheridan - 10/25/2017 11:20 AM CDT Mk Sanches Requested Prescriptions Pending Prescriptions Disp Refills ??? lisinopril (PRINIVIL; ZESTRIL) 10 MG tablet [Pharmacy Med Name: LISINOPRIL 10 MG TABLET] 90 tablet 1 Sig: TAKE 1 TAB BY MOUTH ONCE DAILY REASONS: HIGH BLOOD PRESSURE Allergies Allergen Reactions ??? Ibuprofen Other HE HAS CKD AND SHOULD NOT TAKE NSAID'S Last refill- 05/03/17 Last OV-08/31/17 Future OV-03/02/18 documented in this encounter Plan of Treatment Upcoming Encounters Date Type Department Care Team (Late st Contact Info) Description 04/07/2024 10:00 AM DIRECTOR DIETETICS DEPARTMENT Office Visit [facility] [address] [facility] [address] [place] [address] Evelin Blanco APRN-CNP [address] [facility] [address] [place] [address] 06/06/2024 2:00 PM CDT Office Visit [facility] [address] [place] [address] [address] [place] [address] [place] [address] [facility] [address] [place] [phone] documented as of this encounter Goals Goal Patient Goal Type Associated Problems Recent Progress Patient-Stated? Author Blood Pressure < 140/90 Blood Pressure 96/68(2023 2:34 PM DIRECTOR DIETETICS DEPARTMENT) Rere Vargas Note: Caring for Your High [...] Where can I go for more information? [place] Heart Association National Center: http://www.americanheart.org 1. In the top header, click ? Conditions? . 2. In the top header, click ? high blood pressure.? 3. For a printable blood pressure tracker, scroll toward the bottom of the page to Related Tools, and click ? HBP Trackers.? 8-739-UTY-USA-1 or ( ) National Heart, Lung and Blood [place]: http://www.nhlbi.nih.gov/health/infoctr/index.htm Blood Pressure < 140/90 Blood Pressure 96/68(2023 2:34 PM DIRECTOR DIETETICS DEPARTMENT) Rere Vargas Note: Caring for Your High [...] Where can I go for more information? [place] Heart Association National Center: http://www.americanheart.org 1. In the top header, click ? Conditions? . 2. In the top header, click ? high blood pressure.? 3. For a printable blood pressure tracker, scroll toward the bottom of the page to Related Tools, and click ? HBP Trackers.? 3-395-QTC-USA-1 or ( ) National Heart, Lung and Blood [place]: http://www.nhlbi.nih.gov/health/infoctr/index.htm Exercise 5X per week (30 min per time) Exercise No Rere Kaufman Note: The Filipino College of Sports Medicine recommends all adults [...] how to manage your diabetes: ? ? [place]ino Diabetes Association: www.diabetes.org 6-146-ECSNLYCS ( ) ? ? Filipino Diabetes Association-Support group line: www.professional.diabetes.org ? ? [place] Heart Association: www.heart.org or 9-501-YMZ-USA-1 ( ) [employer] MyPlate: www.Everlatermyplate.gov Have labs drawn Lifestyle Rere Vargas Note: [...] on filedocumented in this encounter Care Teams Medical Billing Specialist Relationship Specialty [place] [address] [address] Ophthalmology 04/06/16 documented as of this encounter
--- OUTSIDE RECORDS SUMMARY | 2024-04-03 01:02 | XMS_ITS | Encounter Summary ---
Author Organization [facility] Address [address] [place] [address] Care Team Providers Care Soliciting Freight Agent Name Role Phone Ricco Andrew MD Unavailable [phone] Reason for Visit * Reason Comments Refill Request Encounter Details Date Type Department Care Team (Late st Contact Info) Description 01/30/2017 Refill [facility] Medical [facility] - Family Medicine [address] [place] [address] Chauncey Herrera MD [facility] [address] Refill Request Social History Tobacco [...] Telephone Encounter - Chauncey Herrera MD - 02/01/2017 8:59 AM CST Needs to schedule f/u in 1 next 1 month. Please call pt and encourage to schedule Glipizide refused as we just granted a 90 day supply 01/25/17. Other rx granted as 90 day supply. This is last rx without being seen Requested Prescriptions Signed Prescriptions Disp Refills ??? loratadine (CLARITIN) 10 MG tablet 90 tablet 0 Sig: TAKE 10 MG BY MOUTH ONCE DAILY REASONS: ALLERGIES Authorizing Provider: CHAUNCEY HERRERA ??? lisinopril (PRINIVIL; ZESTRIL) 10 MG tablet 90 tablet 0 Sig: TAKE 1 TAB BY MOUTH ONCE DAILY REASONS: HIGH BLOOD PRESSURE Authorizing Provider: CHAUNCEY HERRERA Refused Prescriptions Disp Refills ??? glipiZIDE (GLUCOTROL) 5 MG tablet [Pharmacy Med Name: GLIPIZIDE 5 MG TABLET] 90 tablet 1 Sig: TAKE 1 TABLET BY MOUTH EVERY DAY BEFORE BREAKFAST Refused By: CHAUNCEY HERRERA Reason for Refusal: Patient has requested refill too soon EN TENDER * Telephone Encounter - Tiffany Ritter - 02/01/2017 8:49 AM CST Last Refill: 07/23/16...01/25/17(glipizide) Last OV: 07/23/16 Upcoming OV: none EN TENDER documented in this encounter Plan of Treatment Upcoming Encounters Date Type Department Care Team (Late st Contact Info) Description 04/07/2024 10:00 AM SCREEN TENDER Office Visit [facility] [phone] [place] [address] Evelin Blanco, JOSETTE-GEAR CUTTING MACHINE OPERATOR [address] [place] [address] 06/06/2024 2:00 PM CDT Office Visit [facility] [address] [place] [address] Chris [place]en MD [address] [place] [address] documented as of this encounter Goals Goal Patient Goal Type Associated Problems Recent Progress Patient-Stated? Author Blood Pressure < 140/90 Blood Pressure 96/68(2023 2:34 PM SCREEN TENDER) Rere Vargas Note: Caring for Your [...] Where can I go for more information? [place] Heart Association National Center: http://www.americanheart.org 1. In the top header, click ? Conditions? . 2. In the top header, click ? high blood pressure.? 3. For a printable blood pressure tracker, scroll toward the bottom of the page to Related Tools, and click ? HBP Trackers.? 8-158-SKG-USA-1 or ( ) National Heart, Lung and Blood [place]: http://www.nhlbi.nih.gov/health/infoctr/index.htm Blood Pressure < 140/90 Blood Pressure 96/68(2023 2:34 PM SCREEN TENDER) Rere Vargas Note: Caring for Your [...] Where can I go for more information? [place] Heart Association National Center: http://www.americanheart.org 1. In the top header, click ? Conditions? . 2. In the top header, click ? high blood pressure.? 3. For a printable blood pressure tracker, scroll toward the bottom of the page to Related Tools, and click ? HBP Trackers.? 9-085-GQG-USA-1 or ( ) National Heart, Lung and Blood [place]: http://www.nhlbi.nih.gov/health/infoctr/index.htm Exercise 5X per week (30 min per time) Exercise No Rere Kaufman Note: The [place] College of Sports Medicine recommends all adults [...] how to manage your diabetes: ? ? [place] Diabetes Association: www.diabetes.org 1-427-CMMRYDUZ ( ) ? ? [place] Diabetes Association-Support group line: www.professional.diabetes.org ? ? [place] Heart Association: www.heart.org or 8-744-ISY-USA-1 ( ) [employer] MyPlate: www.PlaySightmyplate.gov Have labs drawn Lifestyle Rere Vargas Note: [...] on filedocumented in this encounter Care Teams Soliciting Freight Agent Relationship Specialty [place] [address] [phone] Ophthalmology 04/06/16 documented as of this encounter
--- OUTSIDE RECORDS SUMMARY | 2024-04-03 01:02 | XMS_ITS | Encounter Summary ---
Author Organization [facility] Address [address] [facility] [place] [address] Care Team Providers Care Tong Hooker Name Role Phone Ricco Andrew MD Unavailable [phone] Reason for Visit * Reason Comments Refill Request Encounter Details Date Type Department Care Team (Late st Contact Info) Description 07/31/2017 Refill [facility] - Family Medicine [address] [place], [place] [id number] Rosana Solo MD [address] [address] Refill Request Social History [...] * Telephone Encounter - Geraldine Sheridan - 08/02/2017 2:16 PM CDT Mk Sanches Requested Prescriptions Pending Prescriptions Disp Refills ??? loratadine (CLARITIN) 10 MG tablet [Pharmacy Med Name: LORATADINE 10 MG TABLET] 90 tablet 0 Sig: TAKE 1 TABLET BY MOUTH EVERY DAY Allergies Allergen Reactions ??? Ibuprofen Other HE HAS CKD AND SHOULD NOT TAKE NSAID'S Last refill- 02/01/17 Last OV-03/01/17 Future OV-08/31/17 documented in this encounter Plan of Treatment Upcoming Encounters Date Type Department Care Team (Late st Contact Info) Description 04/07/2024 10:00 AM LAB AID Office Visit [facility] [id number] [place] [address] [address] [place] [address] Evelin Blanco, ROOM COOLER INSTALLER-VACUUM CLEANER OPERATOR [address] [facility] [address] [place] [address] 06/06/2024 2:00 PM CDT Office Visit [facility] [id number] [place] [address] [address] [place] [address] Chris Aden [place] [id number] [place] [address] [address] [place] [phone] documented as of this encounter Goals Goal Patient Goal Type Associated Problems Recent Progress Patient-Stated? Author Blood Pressure < 140/90 Blood Pressure 96/68(2023 2:34 PM LAB AID) Rere Vargas Note: Caring for Your High [...] can I go for more information? [place] Heart Association National Center: http://www.americanheart.org 1. In the top header, click ? Conditions? . 2. In the top header, click ? high blood pressure.? 3. For a printable blood pressure tracker, scroll toward the bottom of the page to Related Tools, and click ? HBP Trackers.? 4-009-KDS-USA-1 or ( ) National Heart, Lung and Blood [place]: http://www.nhlbi.nih.gov/health/infoctr/index.htm Blood Pressure < 140/90 Blood Pressure 96/68(2023 2:34 PM LAB AID) Rere Vargas Note: Caring for Your High [...] can I go for more information? [place] Heart Association National Center: http://www.americanheart.org 1. In the top header, click ? Conditions? . 2. In the top header, click ? high blood pressure.? 3. For a printable blood pressure tracker, scroll toward the bottom of the page to Related Tools, and click ? HBP Trackers.? 9-719-KNP-USA-1 or ( ) National Heart, Lung and Blood [place]: http://www.nhlbi.nih.gov/health/infoctr/index.htm Exercise 5X per week (30 min per time) Exercise No Rere Kaufman Note: The [place] College of Sports Medicine recommends all [...] to manage your diabetes: ? ? [place] Diabetes Association: www.diabetes.org 5-840-YJBOOAQY ( ) ? ? [place] Diabetes Association-Support group line: www.professional.diabetes.org ? ? [place] Heart Association: www.heart.org or 7-511-[facility]-1 ( ) OZ [employer] MyPlate: www.ShopYourWorldmyplate.gov Have labs drawn Lifestyle No Rere Kaufman [...] on filedocumented in this encounter Care Teams Tong Hooker Relationship Specialty [place] [address] [phone] Ophthalmology 04/06/16 documented as of this encounter
--- OUTSIDE RECORDS SUMMARY | 2024-04-03 01:02 | XMS_ITS | Encounter Summary ---
Author Organization [facility] Address [address] [facility] [place] [address] Care Team Providers Care Forming Process Worker Name Role Phone Ricco Andrew MD Unavailable [phone] Reason for Visit * Reason Comments Refill Request Encounter Details Date Type Department Care Team (Late st Contact Info) Description 02/13/2017 Refill [facility] - Family Medicine [address] [place], [place] [id number] Rosana Solo MD [facility] [address] [address] Refill Request Social History Tobacco [...] Telephone Encounter - Rosana Solo MD - 02/15/2017 1:09 PM CST Past due for f/u. We informed 01/30/17 that needed f/u in next 1 month. This is last rx without being seen. Needs to keep f/u 03/01/17 to get refills after this LAYER * Telephone Encounter - KervintalialeannaTiffany - 02/15/2017 9:59 AM CST Last Refill: 02/24/16 Last OV: 07/23/16 Upcoming OV: none LAYER documented in this encounter Plan of Treatment Upcoming Encounters Date Type Department Care Team (Late st Contact Info) Description 04/07/2024 10:00 AM RUG LAYER Office Visit [facility] [address] [facility] [address] [place] [address] Evelin Blanco APRN-DENIS [address] [facility] [address] [place] [address] 06/06/2024 2:00 PM CDT Office Visit [facility] [address] [facility] [address] [place] [address] [place] [address] [facility] [address] [place] [address] documented as of this encounter Goals Goal Patient Goal Type Associated Problems Recent Progress Patient-Stated? Author Blood Pressure < 140/90 Blood Pressure 96/68(2023 2:34 PM RUG LAYER) Rere Vargas Note: Caring for Your High [...] Where can I go for more information? [place] Heart Association National Center: http://www.americanheart.org 1. In the top header, click ? Conditions? . 2. In the top header, click ? high blood pressure.? 3. For a printable blood pressure tracker, scroll toward the bottom of the page to Related Tools, and click ? HBP Trackers.? 7-936-CDZ-USA-1 or ( ) National Heart, Lung and Blood [place]: http://www.nhlbi.nih.gov/health/infoctr/index.htm Blood Pressure < 140/90 Blood Pressure 96/68(2023 2:34 PM RUG LAYER) Rere Vargas Note: Caring for Your High [...] Where can I go for more information? [place] Heart Association National Center: http://www.americanheart.org 1. In the top header, click ? Conditions? . 2. In the top header, click ? high blood pressure.? 3. For a printable blood pressure tracker, scroll toward the bottom of the page to Related Tools, and click ? HBP Trackers.? 8-926-RKJ-USA-1 or ( ) National Heart, Lung and Blood [place]: http://www.nhlbi.nih.gov/health/infoctr/index.htm Exercise 5X per week (30 min per time) Exercise Rere Vargas Note: The [place] College of Sports Medicine recommends all [...] how to manage your diabetes: ? ? [place] Diabetes Association: www.diabetes.org 3-592-DSOXSSNN ( ) ? ? [place] Diabetes Association-Support group line: www.professional.diabetes.org ? ? [place] Heart Association: www.heart.org or 6-182-XEK-USA-1 ( ) MVER[employer] MyPlate: www.Tailored Fitmyplate.gov Have labs drawn Lifestyle Rere Vargas Note: [...] on filedocumented in this encounter Care Teams Forming Process Worker Relationship Specialty [place] [address] [address] Ophthalmology 04/06/16 documented as of this encounter
--- OUTSIDE RECORDS SUMMARY | 2024-04-03 01:02 | XMS_ITS | Encounter Summary ---
Author Organization [facility] Address [address] [facility] [place] [address] Care Team Providers Care Cloth Colorer Name Role Phone Ricco Andrew MD Unavailable [phone] Reason for Visit * Reason Onset Date Comments MEDICATION REFILL 09/18/2016 Encounter Details Date Type Department Care Team (Late st Contact Info) Description 09/18/2016 Refill [facility] Medical [facility] - Family Medicine [address] [place], [place] [phone] Rosana Solo MD [address] [place] [address] MEDICATION REFILL Social History Tobacco Use Types [...] encounter Miscellaneous Notes * Telephone Encounter - Venancio Dupree - 09/18/2016 3:45 PM CDT Mk Sanches Requested Prescriptions Pending Prescriptions Disp Refills ??? levothyroxine (SYNTHROID) 75 MCG tablet 90 Tab 1 Sig: Take 1 Tab by mouth daily before breakfast Reasons: Underactive Thyroid Allergies Allergen Reactions ??? Ibuprofen Other HE HAS CKD AND SHOULD NOT TAKE NSAID'S Last refill- 06/23/16 Last OV-07/23/16 Future OV-01/28/17 documented in this encounter Plan of Treatment Upcoming Encounters Date Type Department Care Team (Late st Contact Info) Description 04/07/2024 10:00 AM DRILL OPERATOR PNEUMATIC Office Visit [facility] [phone] [place] [address] [address] [place] [address] Evelin Blanco, WRESTLING COACH-TRANSITIONAL CARE LIAISON [address] [facility] [address] [place] [address] 06/06/2024 2:00 PM CDT Office Visit [facility] [phone] [place] [address] [address] [place] [address] Chris Aden MD [id number] [place] [address] [address] [place] [phone] documented as of this encounter Goals Goal Patient Goal Type Associated Problems Recent Progress Patient-Stated? Author Blood Pressure < 140/90 Blood Pressure 96/68(2023 2:34 PM DRILL OPERATOR PNEUMATIC) Rere Vargas Note: Caring for Your High [...] Where can I go for more information? [place] Heart Association National Center: http://www.americanheart.org 1. In the top header, click ? Conditions? . 2. In the top header, click ? high blood pressure.? 3. For a printable blood pressure tracker, scroll toward the bottom of the page to Related Tools, and click ? HBP Trackers.? 2-201-TDW-USA-1 or ( ) National Heart, Lung and Blood [place]: http://www.nhlbi.nih.gov/health/infoctr/index.htm Blood Pressure < 140/90 Blood Pressure 96/68(2023 2:34 PM DRILL OPERATOR PNEUMATIC) Rere Vargas Note: Caring for Your High [...] Where can I go for more information? [place] Heart Association National Center: http://www.americanheart.org 1. In the top header, click ? Conditions? . 2. In the top header, click ? high blood pressure.? 3. For a printable blood pressure tracker, scroll toward the bottom of the page to Related Tools, and click ? HBP Trackers.? 1-659-PDE-USA-1 or ( ) National Heart, Lung and Blood [place]: http://www.nhlbi.nih.gov/health/infoctr/index.htm Exercise 5X per week (30 min per time) Exercise No Rere Kaufman Note: The [place] College of Sports Medicine recommends all adults [...] be overall healthier. Have labs drawn Lifestyle eRre Vargas Note: Caring for Your Diabetes Exercise [...] how to manage your diabetes: ? ? [place] Diabetes Association: www.diabetes.org 2-635-LQJYMUCN ( ) ? ? [place] Diabetes Association-Support group line: www.professional.diabetes.org ? ? [place] Heart Association: www.heart.org or 8-338-CRT-USA-1 ( ) [employer] MyPlate: www.Ocean Lithotripsymyplate.gov Have labs drawn Lifestyle No Rere Kaufman [...] on filedocumented in this encounter Care Teams Cloth Colorer Relationship Specialty [place] [address] [facility] [address] [place] [phone] Ophthalmology 04/06/16 documented as of this encounter
--- OUTSIDE RECORDS SUMMARY | 2024-04-03 01:02 | XMS_ITS | Encounter Summary ---
Author Organization [facility] Address [address] [facility] [place] [address] Care Team Providers Care Motorcycle Delivery Driver Name Role Phone Ricco Andrew MD Unavailable [phone] Reason for Visit * Reason Comments Refill Request Encounter Details Date Type Department Care Team (Late st Contact Info) Description 09/02/2017 Refill [facility] - Family Medicine [address] [place] [address] Rosana Solo MD [address] [address] Refill Request Social History Tobacco [...] encounter Miscellaneous Notes * Telephone Encounter - Cassie Marie Uche - 09/03/2017 1:49 PM CDT Requested Prescriptions Pending Prescriptions Disp Refills ??? levothyroxine (SYNTHROID) 75 MCG tablet [Pharmacy Med Name: LEVOTHYROXINE 75 MCG TABLET] 90 tablet 1 Sig: TAKE 1 TAB BY MOUTH DAILY BEFORE BREAKFAST REASONS: UNDERACTIVE THYROID Last office visit: 08/31/17 Last refill: 08/31/17 Next appointment: 03/02/18 documented in this encounter Plan of Treatment Upcoming Encounters Date Type Department Care Team (Late st Contact Info) Description 04/07/2024 10:00 AM FOUNTAIN CLERK Office Visit [facility] [id number] [place] [address] [address] [place], [place] [phone] Evelin Blanco, MEDICAL DELIVERY TECHNICIAN-FIRE HOSE CURER [address] [facility] [address] [place], [place] [phone] 06/06/2024 2:00 PM CDT Office Visit [facility] [phone] [place] [address] [address] [place], [place] [phone] [place] [address] [phone] documented as of this encounter Goals Goal Patient Goal Type Associated Problems Recent Progress Patient-Stated? Author Blood Pressure < 140/90 Blood Pressure 96/68(2023 2:34 PM FOUNTAIN CLERK) Rere Vargas Note: Caring for Your [...] Where can I go for more information? [place] Heart Association National Center: http://www.americanheart.org 1. In the top header, click ? Conditions? . 2. In the top header, click ? high blood pressure.? 3. For a printable blood pressure tracker, scroll toward the bottom of the page to Related Tools, and click ? HBP Trackers.? 6-717-HCF-USA-1 or ( ) National Heart, Lung and Blood [place]: http://www.nhlbi.nih.gov/health/infoctr/index.htm Blood Pressure < 140/90 Blood Pressure 96/68(2023 2:34 PM FOUNTAIN CLERK) Rere Vargas Note: Caring for Your [...] Where can I go for more information? [place] Heart Association National Center: http://www.americanheart.org 1. In the top header, click ? Conditions? . 2. In the top header, click ? high blood pressure.? 3. For a printable blood pressure tracker, scroll toward the bottom of the page to Related Tools, and click ? HBP Trackers.? 1-071-PUC-USA-1 or ( ) National Heart, Lung and Blood [place]: http://www.nhlbi.nih.gov/health/infoctr/index.htm Exercise 5X per week (30 min per time) Exercise Rere Vargas Note: The [place] College of Sports Medicine recommends all adults [...] how to manage your diabetes: ? ? [place] Diabetes Association: www.diabetes.org 8-234-FVEFTPJD ( ) ? ? [place] Diabetes Association-Support group line: www.professional.diabetes.org ? ? [place] Heart Association: www.heart.org or 2-003-GRJ-USA-1 ( ) [employer] MyPlate: www.Pumodomyplate.gov Have labs drawn Lifestyle No Rere Kaufman [...] on filedocumented in this encounter Care Teams Motorcycle Delivery Driver Relationship Specialty [place] [address] [address] Ophthalmology 04/06/16 documented as of this encounter
--- OUTSIDE RECORDS SUMMARY | 2024-04-03 01:02 | XMS_ITS | Encounter Summary ---
Author Organization [facility] Address [address] [facility] [place] [address] Care Team Providers Care Strategic Insights Lead Name Role Phone Ricco Andrew MD Unavailable [phone] Reason for Visit * Reason Onset Date Comments Outreach Preventive Care 12/06/2017 Encounter Details Date Type Department Care Team (Late st Contact Info) Description 12/06/2017 Patient Outreach [facility] Medical [facility] - Care Coordination [address] [place] [address] Jessica Jay Outreach Preventive Care Social History Tobacco Use [...] encounter Miscellaneous Notes * Telephone Encounter - Jessica Jay - 12/09/2017 5:30 PM CDT Outreach to patient for health care gaps. Patient notified of overdue health care gaps. Patient : agreed to participate in Care Gap Closure. Patients daughter has an appointment for patient to get his diabetic eye exam in one month. She will make sure records are sent to PCP No orders of the defined types were placed in this encounter. documented in this encounter Plan of Treatment Upcoming Encounters Date Type Department Care Team (Late st Contact Info) Description 04/07/2024 10:00 AM LUMBER CHAIN OFFBEARER Office Visit [facility] [address] [facility] [address] [place] [address] Evelin Blanco APRN-STRANDING SUPERVISOR [address] [facility] [address] [place] [address] 06/06/2024 2:00 PM CDT Office Visit [facility] [address] [facility] [address] [place] [address] [place] [address] [facility] [address] [place] [address] documented as of this encounter Goals Goal Patient Goal Type Associated Problems Recent Progress Patient-Stated? Author Blood Pressure < 140/90 Blood Pressure 96/68(2023 2:34 PM LUMBER CHAIN OFFBEARER) Rere Vargas Note: Caring for Your High [...] Where can I go for more information? [place] Heart Association National Center: http://www.americanheart.org 1. In the top header, click ? Conditions? . 2. In the top header, click ? high blood pressure.? 3. For a printable blood pressure tracker, scroll toward the bottom of the page to Related Tools, and click ? HBP Trackers.? 3-263-HQP-USA-1 or ( ) National Heart, Lung and Blood [place]: http://www.nhlbi.nih.gov/health/infoctr/index.htm Blood Pressure < 140/90 Blood Pressure 96/68(2023 2:34 PM LUMBER CHAIN OFFBEARER) eRre Vargas Note: Caring for Your High [...] Where can I go for more information? [place] Heart Association National Center: http://www.americanheart.org 1. In the top header, click ? Conditions? . 2. In the top header, click ? high blood pressure.? 3. For a printable blood pressure tracker, scroll toward the bottom of the page to Related Tools, and click ? HBP Trackers.? 6-805-AYW-USA-1 or ( ) National Heart, Lung and Blood [place]: http://www.nhlbi.nih.gov/health/infoctr/index.htm Exercise 5X per week (30 min per time) Exercise Rere Vargas Note: The [place] College of Sports Medicine recommends all adults [...] how to manage your diabetes: ? ? [place]ian Diabetes Association: www.diabetes.org 2-964-OMOJWZVF ( ) ? ? [place]ian Diabetes Association-Support group line: www.professional.diabetes.org ? ? [place] Heart Association: www.heart.org or 4-658-XVR-USA-1 ( ) [employer] MyPlate: www.Taxifymyplate.gov Have labs drawn Lifestyle Rere Vargas Note: [...] on filedocumented in this encounter Care Teams Strategic Insights Lead Relationship Specialty [place] [address] [phone] Ophthalmology 04/06/16 documented as of this encounter
--- OUTSIDE RECORDS SUMMARY | 2024-04-03 01:02 | XMS_ITS | Encounter Summary ---
Author Organization [facility] Address [address] [facility] [place] [address] Care Team Providers Care Precision Dyer Name Role Phone Ricco Andrew MD Unavailable [phone] Reason for Visit * Reason Comments Refill Request Encounter Details Date Type Department Care Team (Late st Contact Info) Description 11/11/2017 Refill [facility] - Family Medicine [address] [place] [address] Rosana Solo MD [address] [address] Refill Request Social History Tobacco [...] * Telephone Encounter - Geraldine Sheridan - 11/11/2017 10:03 AM CDT Mk Sanches Requested Prescriptions Pending Prescriptions Disp Refills ??? memantine (NAMENDA) 5 MG tablet [Pharmacy Med Name: MEMANTINE HCL 5 MG TABLET] 180 tablet 1 Sig: TAKE 1 TABLETS BY MOUTH 2 TIMES DAILY Allergies Allergen Reactions ??? Ibuprofen Other HE HAS CKD AND SHOULD NOT TAKE NSAID'S Last refill- 05/19/17 Last OV-08/31/17 Future OV-03/02/18 documented in this encounter Plan of Treatment Upcoming Encounters Date Type Department Care Team (Late st Contact Info) Description 04/07/2024 10:00 AM LICENSED AUDIOLOGIST Office Visit [facility] [id number] [place] [address] [address] [place] [address] Evelin Blanco, REGIONAL COORDINATOR-REGIONAL OFFICE COORDINATOR [address] [facility] [address] [place] [address] 06/06/2024 2:00 PM CDT Office Visit [facility] [phone] [place] [address] [address] [place] [address] Chris Aden [place] [id number] [place] [address] [address] [place] [phone] documented as of this encounter Goals Goal Patient Goal Type Associated Problems Recent Progress Patient-Stated? Author Blood Pressure < 140/90 Blood Pressure 96/68(2023 2:34 PM LICENSED AUDIOLOGIST) Rere Vargas Note: Caring for Your High [...] Where can I go for more information? [place] Heart Association National Center: http://www.americanheart.org 1. In the top header, click ? Conditions? . 2. In the top header, click ? high blood pressure.? 3. For a printable blood pressure tracker, scroll toward the bottom of the page to Related Tools, and click ? HBP Trackers.? 0-104-QBA-USA-1 or ( ) National Heart, Lung and Blood [place]: http://www.nhlbi.nih.gov/health/infoctr/index.htm Blood Pressure < 140/90 Blood Pressure 96/68(2023 2:34 PM LICENSED AUDIOLOGIST) Rere Vargas Note: Caring for Your High [...] Where can I go for more information? [place] Heart Association National Center: http://www.americanheart.org 1. In the top header, click ? Conditions? . 2. In the top header, click ? high blood pressure.? 3. For a printable blood pressure tracker, scroll toward the bottom of the page to Related Tools, and click ? HBP Trackers.? 1-505-RQC-USA-1 or ( ) National Heart, Lung and Blood [place]: http://www.nhlbi.nih.gov/health/infoctr/index.htm Exercise 5X per week (30 min per time) Exercise No Rere Kaufman Note: The [place] College of Sports Medicine recommends all adults [...] how to manage your diabetes: ? ? [place] Diabetes Association: www.diabetes.org 8-824-RHVRSFFT ( ) ? ? [place] Diabetes Association-Support group line: www.professional.diabetes.org ? ? [place] Heart Association: www.heart.org or 8-979-VXT-[facility]-1 ( ) [employer] MyPlate: www.Re[place] Coast Winerymyplate.gov Have labs drawn Lifestyle No Rere Kaufman [...] on filedocumented in this encounter Care Teams Precision Dyer Relationship Specialty [place] [address] [phone] Ophthalmology 04/06/16 documented as of this encounter
--- OUTSIDE RECORDS SUMMARY | 2024-04-03 01:02 | XMS_ITS | Encounter Summary ---
Author Organization [facility] Address [address] [place] [address] Care Team Providers Care Resourcing Advisor Name Role Phone Ricco Andrew MD Unavailable [phone] Reason for Visit * Reason Comments Follow-up Encounter Details Date Type Department Care Team (Latest Contact Info) Description 08/31/2017 1:00 PM CDT Office Visit [facility] [address] [place], [place] [id number] Rosana Solo MD [address] [facility] [address] [place] [address] Type 2 diabetes mellitus with diabetic neuropathy, without long-term current use of insulin (HCC) (Primary Dx); Type 2 diabetes mellitus with stage 3 chronic kidney disease, without long-term current use of insulin (HCC); Hypothyroidism, adult; Benign hypertension with chronic kidney disease; Alzheimer's dementia without behavioral disturbance, unspecified timing of dementia onset; 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 (HCC); Seborrheic dermatitis of scalp Social History Tobacco Use Types Packs/Day Years [...] Reading Time Taken Comments Blood Pressure 102/70 08/31/2017 1:00 PM CDT Pulse 95 08/31/2017 1:00 PM CDT Temperature 36.9 ??C (98.4 ??F) 08/31/2017 1:00 PM CD T Respiratory Rate 16 08/31/2017 1:00 PM CDT Oxygen Saturation 95% 08/31/2017 1:00 PM CDT Inhaled Oxygen Concentration - - Weight 78.9 kg (174 lb) 08/31/2017 1:00 PM CDT Height 165.1 cm (5' 5) 08/31/2017 1:00 PM CDT Body Mass Index 28.96 08/31/2017 1:00 PM CDT documented in this encounter Patient Instructions * Patient Instructions* Kerrie Balderas - 08/31/2017 1:00 PM CDT Please make sure he sees an eye doctor at least once a year. Labs today today at [facility] Directions to [facility]: [facility] is located on the 1st floor of this building. Please take the elevators down to the lobby.As soon as you exit the elevator, take an immediate left out of the elevators and then go left downthe first hallway. [facility] is located in [address] on the left side just past the restrooms. They orders have been transmitted electronically, so the should have them. Caring For Your Diabetes ?? Follow a diabetic diet with healthy meals that are low salt, low fat, high fiber. For more information on a diabetic diet, please go to the [place] [employer] website at www.diabetes.org and select the Food&Fitness tab ?? Home blood sugar monitoring and goals ?? 80-120 fasting ?? Less than 180 two hours after a meal ?? Home blood pressure goal less than 140/90, better if <130/80 ?? Check feet daily for sores, dryness, cracking; use daily moisturizer if needed and invest in good shoes ?? Annual Foot Exam ?? See eye doctor at least once per year and have report sent to our office ?? Daily Aspirin 81 mg if recommended by your doctor (males 45-79 yrs or females 55-79 yrs) ?? Aim for 30 minutes of exercise every day (45-60 minutes if trying to lose weight) The [place] [employer] recommends all adults [...] a healthy weight. Body mass index is 28.96 kg/(m^2). If your BMI (a ratio of your weight to your height) is over 25, it is recommended that you try to exercise and eat healthier in an effort to lose a few pounds Health Maintenance Due Topic Date Due ??? DTAP/TDAP/TD VACCINES (1 - Tdap) 1956 ??? DIABETES-STATIN 1977 ??? PNEUMOCOCCAL VACCINE (2 of 2 - PCV13) 07/25/2013 ??? ANNUAL MEDICARE WELLNESS VISIT 02/05/2016 ??? DIABETES-EDUCATION (VEF266) 02/05/2016 ??? DIABETES-EYE EXAM 04/08/2017 ??? DIABETES-FOOT EXAM WITH MONOFILAMENT 07/23/2017 ??? DIABETES-HGB A1C 08/30/2017 Goals ? ? Blood Pressure < 140/90 Caring for Your High Blood Pressure Healthy Lifestyle tips ??? Manage stress: Stress may slow healing and cause illness later. Since it is hard to avoid stress, learn to control it. Learn new ways to relax. Ask your provider for more information on ways to relax. Talk to someone about things that upset you. ??? Stop smoking: If you smoke, you should quit. Smoking harms the heart, lungs, and blood. You aremore likely to have a heart attack, lung disease, and cancer if you smoke. Smoking can also make your hypertension worse. It is never too late to quit. Quitting smoking improves your health, and the health of those around you. If you have trouble quitting, talk to your provider about ways to quit. ??? Drinking alcohol: If you drink alcohol, limit how much you drink. Do not drink more than two drinks a day. One drink is a can of beer (12 ounces) or four ounces (one-half cup) of wine. It is alsothe same as one jigger (one and one- half ounces) of hard liquor, such as whiskey. ??? Maintain a healthy weight. Weighing to much can make your heart work harder and cause high blood pressure. Other health problems are caused about weighing too much. Talk to your provider about anideal weight for you. Where can I go for more information? [place] [employer] Association National Center: http://www.americanheart.org 1. In the top header, click ???Conditions?? . 2. In the top header, click ???high blood pressure.?? 3. For a printable blood pressure tracker, scroll toward the bottom of the page to Related Tools, and click ???HBP Trackers.?? 5-050-PEN-USA-1 or ( ) National Heart, Lung and Blood [place]: http://www.nhlbi.nih.gov/health/infoctr/index.htm ? ? Blood Pressure < 140/90 Caring for Your High Blood Pressure Diet Eat a healthy diet: ??? Eat healthy foods from all of the 5 food groups which are fruits, vegetables, breads, dairy products, meat and fish. Eating healthy foods may help you feel better and have more energy. ??? To help control your blood pressure, you [...] Where can I go for more information? [place] [employer] Association National Center: http://www.americanheart.org 4. In the top header, click ???Conditions?? . 5. In the top header, click ???high blood pressure.?? 6. For a printable blood pressure tracker, scroll toward the bottom of the page to Related Tools, and click ???HBP Trackers.?? 3-834-DHM-USA-1 or ( ) National Heart, Lung and Blood [place]: http://www.nhlbi.nih.gov/health/infoctr/index.htm ??? Exercise 5X per week (30 min per time) The [place] [employer] recommends all adults [...] several weeks. Exercise will help to improve yourcholesterol readings and blood pressure and to be overall healthier. ??? Have labs drawn Caring for Your Diabetes Exercise Tips ??? Physical activity is important for everyone???s health but especially important if you have diabetes. It can lower blood glucose levels by improving the body???s ability to utilize both glucose and insulin. ??? Check with your provider before starting an exercise program. ??? When starting a physical activity program, begin slowly to avoid injury. Even doing 5 to 10 minutes can be beneficial. Add a few minutes each week till you reach your goal. Choose an activity that fits your fitness level and interests, one that you can do on a regular basis. ??? Exercise activities like running, using weights, going to the gym are one type of physical activity, but day to day activities such as walking, stairs, cutting grass, gardening, and riding a bikeor vacuuming are also physical activities. IT ALL COUNTS!!!! ??? For a Food and Activity Tracker you can keep at home, go to: My Game Plan: Food and Activity Tracker Important Vaccinations When you have diabetes, it???s important to keep up to date with vaccinations, or immunizations. ??? Importance of flu vaccine: Flu is a serious illness that can lead pneumonia and even . People with diabetes can become very ill when they get the flu and may need to be hospitalized. It is recommended that you get the flu vaccine every year ??? Importance of Pneumonia vaccine: Pneumonia is a serious illness that affects the lungs and may also lead to infections of the blood and the covering of the brain (meningitis). You can get the pneumonia vaccine any time of the year. It is suggested that you have the vaccine once before the age of 65 and once after the age of 65. ??? Your provider may also suggest additional vaccines such as tetanus or Hepatitis B. Talk with your provider to see if these vaccines are appropriate for you and ask your insurance company about coverage. The following resources can help you and the people close to you learn more about diabetes and how to manage your diabetes: ??? [place] Diabetes Association: www.diabetes.org 5-600-RAQDTNQC ( ) ??? [place] Diabetes Association-Support group line: www.professional.diabetes.org ??? [place] Heart Association: www.heart.org or 5-788-XPP-[facility]-1 ( ) mTraks MyPlate: www.Techgeniamyplate.gov ??? Have labs drawn Caring for Your Diabetes Routine Testing for Diabetic Control How do you know if your treatment plan is working? We can???t tell how you are doing just by how you feel. There are 6 important tests that help you and your provider know how well you are managing your diabetes and decreasing your risk for complications. ??? Foot exam - People with diabetes have a great chance of developing foot problems. Checking yourfeet at home every day is important. Your provider will also complete a thorough exam during one ofyour regular office visits. ??? Eye exam - Diabetes can lead to retinopathy. This is a condition caused by changes in the retina, the part of the eye that senses light. If not treated retinopathy can lead to blindness. Having an eye exam at least once a year can help catch any problems early. ??? HgbA1c -This blood test is a very important indicator of blood sugar control over the last 3 months. A normal A1C result means that a healthy amount of glucose is inside the red blood cells. A high A1C result means that too much glucose is inside red blood cells. ??? Micro-Albumin - With diabetes you are at a higher risk of developing kidney disease. This test is the best way to identify early signs of kidney damage. If needed, treatment can begin to prevent a more serious problem from developing. ??? LDL - This is the ???BAD?? cholesterol. Lipids are fat like substances that can build up in the carranza of your arteries. This can increase your risk of heart disease. In general reaching your target is the most effective way to protect your heart and blood vessels. ??? Blood pressure - People with diabetes are more than twice as likely to have high blood pressurethan people without diabetes. High blood pressure is a problem because, if left untreated, it can damage the large vessels leading to the heart and brain which can lead to heart attack or stroke. ??? Blood Sugar - An important part of your diabetes care is knowing your blood sugar. Your blood sugar can and should be monitored regularly, at the discretion of your doctor, in order to make the most of your diabetic care. A printable blood sugar log can be found by following the links below: 1. Go to www.diabetes.org and click on ???Living with Diabetes.?? 2. Under the [facility], click ? Blood Glucose Testing.? 3. Click ???Checking Your Blood Glucose,?? and this will give you both an online tool and a printable blood glucose log. 4. The printable blood glucose log can also be accessed here: printable blood glucose log Discuss with your provider your personalized treatment goals to help manage your diabetes. If you see providers outside of this office please make sure that the test results or exam notes are sent toour office. ?? Continue current medications: Yes ?? Please call office during routine office hours if any questions or concerns. ?? After hours you may contact us through the exchange at for more significant issues. ?? See me in 6 months documented in this encounter Progress Notes * Rosana Solo MD - 08/31/2017 1:04 PM CDT SUBJECTIVE: Mk Sanches is a 82 y.o. white male here for follow up chronic issues Living with son and daughter. Accompanied by daughter again today HTN: Home BP monitoring is not done. Cardiovascular ROS: negative for - chest pain, dyspnea on exertion or palpitations Current Cardiac Medications: lisinopril 10 mg Diabetes type II with neuropathy: Glucose monitoring is performed occasionally. Blood glucoses 165 on last check (goal 80-120 fasting, <180 if 2 hr PP). On glipizide 5 mg daily. Following DM diet: tries to get healthy diet Does pt exercise: not really Last dilated eye exam: still needs to be done. Looking for eye doctor near them in [place] Kidney disease?: Yes Neuropathy?: Yes. Denies complaints or numbness or pain On JAYDEN- I or ARB?: yes On Statin?: no. Well controlled without statin and has been declined in past duet o some concern about worsening dementia Diabetic ROS: no chest pain, dyspnea or TIA's, no unusual visual symptoms, no worsening LE edema, no new foot ulcers. Dementia/Alzheimers - on Namenda. Primarily short-term impairment. May be slightly decreased since last visit per daughter. Pt denies memory concerns. He feels good. Hypothyroidism - on levothyroxine 75 mcg daily. Energy level ok. No temperature intolerance Kind of quiet lately, but not really depressed. Was a little sad when his oldest left to go back home. Pt denies depression. Sleep issues - falls asleep at 9 pm and can sleep until noon if family does not wake him up. Duringday seems pretty awake Pt denies chest pain, palpitations, SOB, abdominal pain, diarrhea, CVA symptoms, dizziness. Denies depression when questioned Pt's daughter denies him expressing any complaints in last 1 month Past Medical History: Diagnosis Date ??? Chronic renal failure ??? Dementia ??? Dermatitis ??? DM (diabetes mellitus) ??? HTN (hypertension) ??? Hx of rheumatic fever ??? Hypothyroid ??? Seasonal allergies ??? Trigger finger Body mass index is 28.96 kg/(m^2). Outpatient Medications Prior to Visit Medication Sig Dispense Refill ??? loratadine (CLARITIN) 10 MG tablet TAKE 1 TABLET BY MOUTH EVERY DAY 90 tablet 3 ??? memantine (NAMENDA) 5 MG tablet TAKE 1 TABLETS BY MOUTH 2 TIMES DAILY 180 tablet 1 ??? lisinopril (PRINIVIL; ZESTRIL) 10 MG tablet TAKE 1 TAB BY MOUTH ONCE DAILY REASONS: HIGH BLOOD PRESSURE 90 tablet 1 ??? glipiZIDE (GLUCOTROL) 5 MG tablet Take 1 tablet by mouth daily before breakfast Reasons: Type 2Diabetes 90 tablet 1 ??? DIONICIO ASPIRIN REGIMEN PO ??? ketoconazole (NIZORAL) 2 % shampoo Apply to affected area Three times a week Reasons: Dandruff 120 mL 1 ??? levothyroxine (SYNTHROID) 75 MCG tablet Take 1 Tab by mouth daily before breakfast Reasons: Underactive Thyroid 90 Tab 1 No facility-administered medications prior to visit. Allergies [...] - Tdap) 1956 ??? DIABETES-STATIN 1977 ??? PNEUMOCOCCAL VACCINE (2 of 2 - PCV13) 07/25/2013 ??? ANNUAL MEDICARE WELLNESS VISIT 02/05/2016 ??? DIABETES-EDUCATION (IVP838) 02/05/2016 ??? DIABETES-EYE EXAM 04/08/2017 ??? DIABETES-FOOT EXAM WITH MONOFILAMENT 07/23/2017 ??? DIABETES-HGB A1C 08/30/2017 ??? HCC (Chart Reviewer Use Only) 02/23/2018 ??? INFLUENZA VACCINE Completed Immunization History Administered Date(s) Administered ??? FLU VACCINE TRI INC ANTIG PF 02/05/2016, 03/01/2017 ??? PNEUMOCOCCAL PPSV23 07/25/2012 REVIEW OF SYSTEMS Constitutional: Denies fever, chills Ears, nose, mouth, and throat: Denies nasal discharge. Decreased ehearing Respiratory: Denies cough, SOB Cardiovascular: Denies chest pain, palpitations Gastrointestinal: Denies abdominal pain Neurological: Denies syncope, dizziness. Denies TIA or stroke-like symptoms. Behavioral/Psych: Decreased memory. Denies depression OBJECTIVE: Physical Examination: Vitals: 08/31/17 1300 BP: 102/70 Pulse: 95 Resp: 16 Temp: 98.4 ??F (36.9 ??C) SpO2: 95% Weight: 78.9 kg (174 lb) Body mass index is 28.96 kg/(m^2). No exam data present CrCl cannot be calculated (Patient's most recent sCr result is older than the maximum 15 days allowed.). General: alert, well appearing, and in no acute distress HEENT: Normocephalic atraumatic. PERRLA, EOMI, no conjunctivitis. Bilateral TM's and external ear canals normal. Oral mucous membranes moist, pharynx normal without lesions, edentulous, no tonsillar erythema/edema/exudates. CV exam: regular rate and rhythm, normal S1 and S2, no murmurs, rubs, or gallops appreciated. Respiratory: clear to auscultation bilaterally, no wheezes, rales, or rhonchi, Good aeration. no tachypnea, retractions, or cyanosis Neuro: Alert and oriented x 1-2, Cranial nerves II-XII grossly intact except for decreased hearing.. Grossly non-focal Extremities: Peripheral pulses 2+ and symmetric bilateral radial and pedal. No peripheral edema. Nocyanosis, or clubbing Psych/MSE: normal mood and affect. Decreased short-term memory, but pleasant A comprehensive diabetic foot exam was performed today on bare feet including visual inspection, monofilament, and assessment of pulses. some skin between toes, but easily removed with no underlying sores or wounds. Moderate onychomycosis. Unclear if sensation intact to monofilament. pt reported felt monofilament even when not touching him. Exam accuracy limited due to his dementia. 1+ bilateral pedal pulses Recent Labs Component Name 03/01/17141802/06/16 0844 CHOL 149 148 TRIG 97 111 HDL 43 48 LDLCALC 87 78 Recent Labs Component Name 03/01/17141807/23/16 1416 02/06/16 0844 HGBA1C 7.0* 6.9* 6.4* Recent Labs Component Name 03/01/17 14107/23/16 1416 04/06/16 1536 02/06/16 0844 SODIUM 136 136 139 142 POTASSIUM 5.2* 5.2* 4.9 5.2* CHLORIDE 104 101 104 106 CO2 27 29 27 30 BUN 25* 25* 27* 31* CREATININE 1.70* 1.60* 1.80* 1.60* GLUCOSE 86 96 112* 129* CALCIUM 9.0 9.6 9.3 9.3 ALBUMIN 3.3* - 3.8 3.8 ALKPHOS 82 - 65 60 ALT 12* - 16 14 AST 11 - 11 8 TBIL 0.4 - 0.3 0.3 TPROT 7.4 - 7.3 7.0 EGFR 39 42 37 42 Recent Labs Component Name 03/01/17 1419 02/06/16 0844 MICROALBCREA <7 6 ASSESSMENT & PLAN: Type 2 diabetes mellitus with diabetic neuropathy, without long-term current use of insulin - Hgb A1c goal <7.5 given age/dementia. Monitor. Needs eye care given hx of retinopathy. Foot care reviewed - Plan: RISK ADJUSTED VISIT, COMPREHENSIVE METABOLIC PANEL, HEMOGLOBIN A1C, DIABETES FOOT EXAM Type 2 diabetes mellitus with stage 3 chronic kidney disease, without long-term current use of insulin - Monitor renal function. if worsens, get renal eval and renal artery US to r/o EROS - Plan: RISK ADJUSTED VISIT, COMPREHENSIVE METABOLIC PANEL, HEMOGLOBIN A1C, DIABETES FOOT EXAM Hypothyroidism, adult - check and adjust as needed. energy level ok - Plan: RISK ADJUSTED VISIT Benign hypertension with chronic kidney disease - well controlled. Monitor. may need to wean lisinopril in future - Plan: HM RISK ADJUSTED VISIT Alzheimer's dementia without behavioral disturbance, unspecified timing of dementia onset - mild progression per family. Monitor. 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 Daughter will find ophtho in [place] near them - Plan: HM RISK ADJUSTED VISIT Seborrheic dermatitis of scalp - improved over past year. Continue Ketoconazole. Monitor - Plan: ketoconazole (NIZORAL) 2 % shampoo See Goals in chart Follow up in 6 months Or return to clinic sooner if persistent or worsening symptoms An After Visit Summary was printed and given to the patient. Rosana Solo MD * Kerrie Balderas - 08/31/2017 1:03 PM CDT Patient Active Problem List Diagnosis ??? CKD (chronic kidney disease) stage 3, GFR 30-59 ml/min ??? Type 2 diabetes mellitus with stage 3 chronic kidney disease ??? Hypothyroidism, adult ??? Benign hypertension with chronic kidney disease ??? Alzheimer's dementia without behavioral disturbance ??? Seasonal allergic rhinitis ??? Type 2 diabetes mellitus with diabetic neuropathy ??? 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 Skin-picking disorder BP 102/70 (BP SITE: RIGHT ARM, BP POSITION: SITTING, BP CUFF SIZE: 11) Pulse 95 Temp 98.4 ??F (36.9??C) (Oral) Resp 16 Ht 1.651 m (5' 5) Wt 78.9 kg (174 lb) SpO2 95% BMI 28.96 kg/m2 Screenings Future Falls: Have you fallen in the last year?: No Depression: PHQ-2:TOTAL POINT SCORE: 0 PHQ-9: documented in this encounter Plan of Treatment Upcoming Encounters Date Type Department Care Team (Late st Contact Info) Description 04/07/2024 10:00 AM VICE PRESIDENT SUPPLY CHAIN Office Visit [facility] [id number] [place] [id number] Evelin Blanco, EFFICIENCY CLERK-R&D ENGINEER [id number] [place] [address] 06/06/2024 2:00 PM CDT Office Visit [address] [address] Chris [place] [id number] [place] [phone] documented as of this encounter Goals Goal Patient Goal Type Associated Problems Recent Progress Patient-Stated? Author Blood Pressure < 140/90 Blood Pressure 96/68(2023 2:34 PM VICE PRESIDENT SUPPLY CHAIN) Rere Vargas Note: Caring for Your High [...] Where can I go for more information? [place] [employer] Association National Center: http://www.americanheart.org 1. In the top header, click ? Conditions? . 2. In the top header, click ? high blood pressure.? 3. For a printable blood pressure tracker, scroll toward the bottom of the page to Related Tools, and click ? HBP Trackers.? 2-567-KLX-USA-1 or ( ) National Heart, Lung and Blood [place]: http://www.nhlbi.nih.gov/health/infoctr/index.htm Blood Pressure < 140/90 Blood Pressure 96/68(2023 2:34 PM VICE PRESIDENT SUPPLY CHAIN) Rere Vargas Note: Caring for Your High [...] Where can I go for more information? [place] [employer] National Center: http://www.americanheart.org 1. In the top header, click ? Conditions? . 2. In the top header, click ? high blood pressure.? 3. For a printable blood pressure tracker, scroll toward the bottom of the page to Related Tools, and click ? HBP Trackers.? 2-620-PZL-USA-1 or ( ) National Heart, Lung and Blood [place]: http://www.nhlbi.nih.gov/health/infoctr/index.htm Exercise 5X per week (30 min per time) Exercise No Rere Kaufman Note: The [place] [employer] recommends all adults [...] how to manage your diabetes: ? ? [place] [employer] Association: www.diabetes.org 3-618-WYWDPSWM ( ) ? ? [place] [employer] Association-Support group line: www.professional.diabetes.org ? ? [place] Heart Association: www.heart.org or 8-881-PEC-USA-1 ( ) mTraks MyPlate: www.Techgeniamyplate.gov Have labs drawn Lifestyle No Rere Kaufman [...] Priority Date/Time Associated Diagnosis Comments HEMOGLOBIN A1C Routine 08/31/2017 1:44 PM CDT Type 2 diabetes mellitus with diabetic neuropathy, without long-term current use of insulin (HCC) Type 2 diabetes mellitus with stage 3 chronic kidney disease, without long-term current use of insulin (HCC) COMPREHENSIVE METABOLIC PANEL Routine 08/31/2017 1:44 PM CDT Type 2 diabetes mellitus with diabetic neuropathy, without long-term current use of insulin (HCC) Type 2 diabetes mellitus with stage 3 chronic kidney disease, without long-term current use of insulin (HCC) documented in this encounter Results * (ABNORMAL) HEMOGLOBIN A1C (08/31/2017 1:44 PM CDT) Hemoglobin A1c 7.9(H) 4.2 - 6.3 % [facility] ACCOUNT BILL Comment:AVERAGE GLUCOSE MG/D L BLOOD 180 mg/dL Whole Blood BLOOD SPECIMEN WITH EDTA / Unknown 08/31/2017 1:44 PM CDT 08/31/2017 Narrative Resulting Agency Comment [facility] [address] ??[facility] [phone] Rosana Solo MD LAB - CHEMISTRY MELYSSA CHAHAL [facility] ACCOUNT BILL [address] [place] [address] * (ABNORMAL) COMPREHENSIVE METABOLIC PANEL (08/31/2017 1:44 PM CDT) Glucose 165(H) 74 - 106 mg/dL [facility] ACCOUNT BILL BUN 21 7 - 21 mg/dL [facility] ACCOUNT BILL Creatinine 1.70(H) 0.50 - 1.30 mg/dL [facility] ACCOUNT BILL eGFR by MDRD 39 mL/min/1.7 3m2 [facility] ACCOUNT BILL eGFR by MDRD 47 mL/min/1.7 3m2 [facility] ACCOUNT BILL Sodium 138 136 - 145 mmol/L [facility] ACCOUNT BILL Potassium 5.2(H) 3.5 - 5.1 mmol/L [facility] ACCOUNT BILL Chloride 105 98 - 107 mmol/L [facility] ACCOUNT BILL CO2 29 22 - 31 mmol/L [facility] ACCOUNT BILL Calcium 9.0 8.5 - 10.1 mg/dL [facility] ACCOUNT BILL Protein Total 7.3 6.4 - 8.2 gm/dL [facility] ACCOUNT BILL Albumin 3.7 3.4 - 5.0 gm/dL [facility] ACCOUNT BILL Bilirubin Total 0.3 0.2 - 1.0 mg/dL [facility] ACCOUNT BILL Alkaline Phosphatase 83 38 - 126 U/L [facility] ACCOUNT BILL AST 10 5 - 40 U/L [facility] ACCOUNT BILL ALT 20 13 - 61 U/L [facility] ACCOUNT BILL Blood BLOOD SPECIMEN / Unknown 08/31/2017 1:44 PM CDT 08/31/2017 Narrative Resulting Agency Comment [facility] [address] [address] ??[facility] [phone] Rosana Solo MD LAB - CHEMISTRY MELYSSA CHAHAL [facility] ACCOUNT BILL [address] [address] documented in this encounter Visit Diagnoses Diagnosis Type 2 diabetes mellitus with diabetic neuropathy, without long-term current use of insulin (HCC)- Primary Type 2 diabetes mellitus with stage 3 chronic kidney disease, without long-term current use of insulin (HCC) Hypothyroidism, adult Other specified acquired hypothyroidism Benign hypertension with chronic kidney disease Alzheimer's dementia without behavioral disturbance, unspecified timing of dementia onset (HCC) 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
--- OUTSIDE RECORDS SUMMARY | 2024-04-03 01:02 | XMS_ITS | Encounter Summary ---
Author Organization [facility] Address [address] [place] [address] Care Team Providers Care Yarn Rewinder Name Role Phone Ricco Andrew MD Unavailable [phone] Reason for Visit * Reason Comments Diabetes Routine follow up Encounter Details Date Type Department Care Team (Late st Contact Info) Description 03/01/2017 1:00 PM AUTO ELECTRICIAN Office Visit [facility] - Family Medicine [address] [place], [place] [id number] Rosana Solo MD [address] [facility] [address] [place] [address] Type 2 diabetes mellitus with stage 3 chronic kidney disease, without long-term current use of insulin (HCC) (Primary Dx); Type 2 diabetes mellitus with diabetic neuropathy, without long-term current use of insulin (HCC); Benign hypertension with chronic kidney disease; Trigger middle finger of right hand; Hypothyroidism, adult; Alzheimer's dementia without behavioral disturbance, unspecified timing of dementia onset; Skin-picking disorder; Seborrheic dermatitis of scalp; Influenza vaccine needed Social History Tobacco Use Types Packs/Day Years [...] Reading Time Taken Comments Blood Pressure 118/72 03/01/2017 1:23 PM AUTO ELECTRICIAN Pulse 72 03/01/2017 1:23 PM AUTO ELECTRICIAN Temperature 36.9 ??C (98.5 ??F) 03/01/2017 1:23 PM CS T Respiratory Rate 18 03/01/2017 1:23 PM AUTO ELECTRICIAN Oxygen Saturation - - Inhaled Oxygen Concentration - - Weight 79.6 kg (175 lb 6.4 oz) 03/01/2017 1:23 P M AUTO ELECTRICIAN Height 165.1 cm (5' 5) 03/01/2017 1:23 PM AUTO ELECTRICIAN Body Mass Index 29.19 03/01/2017 1:23 PM AUTO ELECTRICIAN documented in this encounter Patient Instructions * Patient Instructions* Rosana Solo MD - 03/01/2017 1:36 PM AUTO ELECTRICIAN Referral to Dr. Amos for hand/trigger finger Get labs at [facility] today Caring For Your Diabetes ?? Follow a diabetic diet with healthy meals that are low salt, low fat, high fiber. For more information on a diabetic diet, please go to the [place] [employer] website at www.diabetes.org and select [...] minutes if trying to lose weight) The [place] [employer] recommends [...] a healthy weight. Body mass index is 29.19 kg/(m^2). If your BMI (a ratio of your weight to your height) is over 25, it is recommended that you try to exercise and eat healthier in an effort to lose a few pounds Health Maintenance Due Topic Date Due ??? DTAP/TDAP/TD VACCINES (1 - Tdap) 1956 ??? DIABETES-STATIN 1977 ??? ZOSTER VACCINE (1) 1997 ??? PNEUMOCOCCAL VACCINE (2 of 2 - PCV13) 07/25/2013 ??? ANNUAL MEDICARE WELLNESS VISIT 02/05/2016 ??? DIABETES-EDUCATION (QRX334) 02/05/2016 ??? DIABETES-EYE EXAM 02/05/2016 ??? INFLUENZA VACCINE (1) 11/20/2016 ??? DIABETES-HGB A1C 01/23/2017 Goals ? ? Blood Pressure < 140/90 [...] to Related Tools, and click ???HBP Trackers.?? 6-680-ESM-[facility]- or ( ) National Heart, Lung and Blood [place]: http://www.nhlbi.nih.gov/health/infoctr/index.htm ? ? Blood Pressure < 140/90 [...] information? [place] [employer] National Center: http://www.americanheart.org 4. In the top header, click ???Conditions?? . 5. In the top header, click ???high blood pressure.?? 6. For a printable blood pressure tracker, scroll toward the bottom of the page to Related Tools, and click ???HBP Trackers.?? 4-285-GKW-[place]- or ( ) National Heart, Lung and Blood [place]: http://www.nhlbi.nih.gov/health/infoctr/index.htm ??? Exercise 5X per week (30 min per time) The [place] [employer] recommends [...] and how to manage your diabetes: ??? [place] Diabetes Association: www.diabetes.org 6-348-OIJNXCQG ( ) ??? [place] Diabetes Association-Support group line: www.professional.diabetes.org ??? [place] Heart Association: www.heart.org or 3-340-SOB-[place]-1 ( ) [employer] MyPlate: www.SANpulse Technologiesmyplate.gov ??? Have labs drawn Caring for Your [...] issues. ?? See me in 6 months ELECTRICIAN documented in this encounter Progress Notes * Rosana Sool MD - 03/02/2017 7:13 PM CST Cholesterol levels are good. Ok to continue to monitor without cholesterol medication given numbersare good and there is some mild increased risk of dementia noted with statin use. Kidney function is stable. He still has chronic kidney disease stage 3, but it has not worsened significantly. We will continue to monitor it. He should avoid ibuprofen, motrin, Advil, Aleve, Naproxen and use acetaminophen instead for pain. Potassium remains just mildly elevated. We will keep monitoring this. I would avoid foods rich in potassium like tomatoes and bananas. Other electrolytes and liver enzymes are normal Hgb A1c 7. This is fair control for diabetes. Given his age and impaired memory, we can defer medication adjustment and just continue to monitor Microalbumin-creatinine ratio normal. No signs of diabetic kidney injury on urine test TSH (thyroid function) is normal. He is on the correct dose of levothyroxine Sent to [facility] ELECTRICIAN * Rosana Solo MD - 03/01/2017 1:28 PM CST SUBJECTIVE: Mk Sanches is a 81 y.o. male here for follow up chronic issues Living with son and daughter. Accompanied by daughter HTN: Home BP monitoring is not done. Cardiovascular ROS: negative for - chest pain, dyspnea on exertion or palpitations Current Cardiac Medications: lisinopril 10 mg Diabetes type II with neuropathy: Glucose monitoring is performed occasionally. Blood glucoses 138 on last check (goal 80-120 fasting, <180 if 2 hr PP). On glipizide 5 mg daily. Following DM diet: tries to get healthy diet Does pt exercise: not really Last dilated eye exam: still needs at some Kidney disease?: Yes Neuropathy?: Yes On JAYDEN- I or ARB?: yes On Statin?: no. Well controlled without statin. Worried about dementia risk so was not initiated last year Diabetic ROS: no chest pain, dyspnea or TIA's, no unusual visual symptoms, no worsening LE edema, no new foot ulcers. Dementia/Alzheimers - on Namenda. Primarily short-term impairment. No real change since last visit per daughter. Pt denies memory concerns Hypothyroidism - on levothyroxine 75 mcg daily. Energy level ok. No cold intolerance Worries about trigger finger on right hand. Paina nd very stiff. Can only get it to extend with force and after using heat. Wants to get addressed. Past Medical History: Diagnosis Date ??? Chronic renal failure ??? Dementia ??? Dermatitis ??? DM (diabetes mellitus) ??? HTN (hypertension) ??? Hx of rheumatic fever ??? Hypothyroid ??? Seasonal allergies ??? Trigger finger Body mass index is 29.19 kg/(m^2). Outpatient Medications Prior to Visit Medication Sig Dispense Refill ??? memantine (NAMENDA) 5 MG tablet TAKE 1 TABLETS BY MOUTH 2 TIMES DAILY 180 tablet 0 ??? loratadine (CLARITIN) 10 MG tablet TAKE 10 MG BY MOUTH ONCE DAILY REASONS: ALLERGIES 90 tablet 0 ??? lisinopril (PRINIVIL; ZESTRIL) 10 MG tablet TAKE 1 TAB BY MOUTH ONCE DAILY REASONS: HIGH BLOOD PRESSURE 90 tablet 0 ??? glipiZIDE (GLUCOTROL) 5 MG tablet Take 1 tablet by mouth daily before breakfast Reasons: Type 2Diabetes 90 tablet 0 ??? levothyroxine (SYNTHROID) 75 MCG tablet Take 1 Tab by mouth daily before breakfast Reasons: Underactive Thyroid 90 Tab 1 ??? ketoconazole (NIZORAL) 2 % shampoo Apply to affected area Three times a week Reasons: Dandruff (Patient not taking: Reported on 03/01/2017) 120 mL 1 No facility-administered medications prior to visit. [...] 1954 ??? DIABETES-STATIN 1977 ??? ZOSTER VACCINE (1) 1997 ??? PNEUMOCOCCAL VACCINE (2 of 2 - PCV13) 07/25/2013 ??? ANNUAL MEDICARE WELLNESS VISIT 02/05/2016 ??? DIABETES-EDUCATION ([id number]) 02/05/2016 ??? DIABETES-HGB A1C 01/23/2017 ??? HCC (Chart Reviewer Use Only) 03/22/2017 ??? DIABETES-EYE EXAM 04/08/2017 ??? DIABETES-FOOT EXAM WITH MONOFILAMENT 07/23/2017 ??? INFLUENZA VACCINE Completed Immunization History Administered Date(s) Administered ??? FLU VACCINE TRI INC ANTIG PF 02/05/2016, 03/01/2017 ??? PNEUMOCOCCAL PPSV23 07/25/2012 REVIEW OF SYSTEMS Constitutional: Denies fever, chills Ears, nose, mouth, and throat: Denies nasal discharge, sorethroat Respiratory: Denies cough, SOB Cardiovascular: Denies chest pain, palpitations, peripheral edema Gastrointestinal: Denies abdominal pain Skin: Still picking some at scalp. Had gotten sores healed, but started picking again recently Neurological: Denies syncope, dizziness. Denies TIA or stroke-like symptoms. Behavioral/Psych: Decreased memory. Denies depression OBJECTIVE: Physical Examination: Vitals: 03/01/17 1323 BP: 118/72 Pulse: 72 Resp: 18 Temp: 98.5 ??F Weight: 79.6 kg (175 lb 6.4 oz) Body mass index is 29.19 kg/(m^2). No exam data present CrCl cannot be calculated (Patient's most recent sCr result is older than the maximum 15 days allowed.). General: alert, well appearing, and in no acute distress HEENT: Normocephalic atraumatic. PERRLA, EOMI, no conjunctivitis. Bilateral TM's and external ear canals normal. Oral mucous membranes moist, pharynx normal without lesions, edentulous, no tonsillar erythema/edema/exudates. No cervical adenopathy. Thyroid normal without nodules [...] Nocyanosis, or clubbing Psych/MSE: normal mood and affect Skin - scars on arms but no open sores. Has 2 scabs to top of head that are healing Recent Labs Component Name 02/06/16 0844 CHOL 148 TRIG 111 HDL 48 LDLCALC 78 Recent Labs Component Name 07/23/16 1416 02/06/16 0844 HGBA1C 6.9* 6.4* Recent Labs Component Name 07/23/16 1416 04/06/16 1536 02/06/16 0844 SODIUM 136 139 142 POTASSIUM 5.2* 4.9 5.2* CHLORIDE 101 104 106 CO2 29 27 30 BUN 25* 27* 31* CREATININE 1.60* 1.80* 1.60* GLUCOSE 96 112* 129* CALCIUM 9.6 9.3 9.3 ALBUMIN - 3.8 3.8 ALKPHOS - 65 60 ALT - 16 14 AST - 11 8 TBIL - 0.3 0.3 TPROT - 7.3 7.0 EGFR 42 37 42 Recent Labs Component Name 02/06/16 0844 MICROALBCREA 6 ASSESSMENT & PLAN: ICD-10-CM 1. Type 2 diabetes mellitus with stage 3 chronic kidney disease, without long- term current use of insulin E11.22 LIPID PROFILE N18.3 COMPREHENSIVE METABOLIC PANEL HEMOGLOBIN A1C MICROALB/CREAT RATIO URINE RANDOM PANEL continue rx. Tolerate some looser control given age and dementia. 2. Type 2 diabetes mellitus with diabetic neuropathy, without long-term current use of insulin E11.40 LIPID PROFILE COMPREHENSIVE METABOLIC PANEL HEMOGLOBIN A1C MICROALB/CREAT RATIO URINE RANDOM PANEL check labs nad adjust as needed 3. Benign hypertension with chronic kidney disease I12.9 COMPREHENSIVE METABOLIC PANEL controlled. cont rx. monitor 4. Trigger middle finger of right hand M65.331 AMB REFERRAL TO HAND SURGEON Refer to hand surgery to address. monitor 5. Hypothyroidism, adult E03.9 TSH clinically euthyroid. cont rx 6. Alzheimer's dementia without behavioral disturbance, unspecified timing of dementia onset G30.9 F02.80 stable. Continue namenda. Monitor 7. Skin-picking disorder F42.4 still with occasional sores to top of head. arms doing better. monitor 8. Seborrheic dermatitis of scalp L21.9 ketoconazole (NIZORAL) 2 % shampoo FLU VACCINE TRI INC ANTIG PF has dry scalp and scaling. Likely some degree of dandruff. using Head and Shoulders. Trial of Ketoconazole. Monitor 9. Influenza vaccine needed Z23 See Goals in chart Health Maintenance Due Topic Date Due ??? DTAP/TDAP/TD VACCINES (1 - Tdap) 1956 ??? DIABETES-STATIN 1977 ??? ZOSTER VACCINE (1) 1997 ??? PNEUMOCOCCAL VACCINE (2 of 2 - PCV13) 07/25/2013 ??? ANNUAL MEDICARE WELLNESS VISIT 02/05/2016 ??? DIABETES-EDUCATION ([id number]) 02/05/2016 ??? DIABETES-HGB A1C 01/23/2017 Follow up in 6 months Or return to clinic sooner if persistent or worsening symptoms An After Visit Summary was printed and given to the patient. Rosana Solo MD ELECTRICIAN * Dylan Moreno - 03/01/2017 1:27 PM CST Patient is here for his routine follow up of his DM. Patient's daughter states that his trigger finger is getting worse on the right hand. BP 118/72 Pulse 72 Temp 98.5 ??F (Oral) Resp 18 Ht 1.651 m (5' 5) Wt 79.6 kg (175 lb 6.4 oz) BMI 29.19 kg/m2 ELECTRICIAN documented in this encounter Plan of Treatment Upcoming Encounters Date Type Department Care Team (Late st Contact Info) Description 04/07/2024 10:00 AM AUTO ELECTRICIAN Office Visit [facility] [id number] [place] [address] [place] [id number] Evelin Blanco APRN-GEAR INSPECTOR [id number] [place] [address] 06/06/2024 2:00 PM CDT Office Visit [facility] [id number] [place] [address] [address] [place] [address] [place] [id number] [place] [phone] documented as of this encounter Goals Goal Patient Goal Type Associated Problems Recent Progress Patient-Stated? Author Blood Pressure < 140/90 Blood Pressure 96/68(2023 2:34 PM AUTO ELECTRICIAN) Rere Vargas Note: Caring for Your [...] Related Tools, and click ? HBP Trackers.? 5-116-OLP-[place]-1 or ( ) National Heart, Lung and Blood [place]: http://www.nhlbi.nih.gov/health/infoctr/index.htm Blood Pressure < 140/90 Blood Pressure 96/68(2023 2:34 PM AUTO ELECTRICIAN) Rere Vargas Note: Caring for Your [...] Related Tools, and click ? HBP Trackers.? 7-801-CTN-[place]-1 or ( ) National Heart, Lung and Blood [place]: http://www.nhlbi.nih.gov/health/infoctr/index.htm Exercise 5X per week (30 min [...] diabetes: ? ? [place] [employer]: www.diabetes.org 8-709-ZQRFINPR ( ) ? ? [place] Diabetes Association-Support group line: www.professional.diabetes.org ? ? [place] Heart Association: www.heart.org or 6-440-HRK-[place]-1 ( ) [employer] MyPlate: www.SANpulse Technologiesmyplate.gov Have labs drawn Lifestyle No Rere Kaufman [...] Procedure Name Priority Date/Time Associated Diagnosis Comments MICROALB/CREAT RATIO URINE RANDOM PANEL Routine 03/01/2017 2:19 PM AUTO ELECTRICIAN Type 2 diabetes mellitus with stage 3 chronic kidney disease, without long-term current use of insulin (HCC) Type 2 diabetes mellitus with diabetic neuropathy, without long-term current use of insulin (HCC) HEMOGLOBIN A1C Routine 03/01/2017 2:19 PM AUTO ELECTRICIAN Type 2 diabetes mellitus with stage 3 chronic kidney disease, without long-term current use of insulin (HCC) Type 2 diabetes mellitus with diabetic neuropathy, without long-term current use of insulin (HCC) COMPREHENSIVE METABOLIC PANEL Routine 03/01/2017 2:19 PM AUTO ELECTRICIAN Type 2 diabetes mellitus with stage 3 chronic kidney disease, without long-term current use of insulin (HCC) Type 2 diabetes mellitus with diabetic neuropathy, without long-term current use of insulin (HCC) Benign hypertension with chronic kidney disease TSH Routine 03/01/2017 2:19 PM AUTO ELECTRICIAN Hypothyroidism, adult LIPID PROFILE Routine 03/01/2017 2:19 PM AUTO ELECTRICIAN Type 2 diabetes mellitus with stage 3 chronic kidney disease, without long-term current use of insulin (HCC) Type 2 diabetes mellitus with diabetic neuropathy, without long-term current use of insulin (HCC) documented in this encounter Results * TSH (03/01/2017 2:19 PM AUTO ELECTRICIAN) TSH 2.10 0.358 - 3.740 uIU/mL [facility] ACCOUNT BILL Blood BLOOD SPECIMEN / Unknown 03/01/2017 2:19 PM AUTO ELECTRICIAN 03/01/2017 Narrative Resulting Agency Comment [place] [address] [address] ??[facility] [phone] Rosana Solo MD LAB - CHEMISTRY MELYSSA CHAHAL [facility] Organization Address City/State/ZIP Co de Phone Number [facility] ACCOUNT BILL [address] [place] [address] * MICROALB/CREAT RATIO URINE RANDOM PANEL (03/01/2017 2:19 PM AUTO ELECTRICIAN) Creatinine Urine 68 mg/dL [facility] ACCOUNT BILL Microalbumin Urine <0.5 mg/dL [facility] ACCOUNT BILL Microalbumin/Crea tinine Ratio <7 <30 mg/g [facility] ACCOUNT BILL Urine URINE SPECIMEN OBTAINED BY CLEAN CATCH PROCEDURE / Unknown 03/01/2017 2:19 PM AUTO ELECTRICIAN 03/01/2017 Narrative Resulting Agency Comment [place] [address] [address] ??Ana LINARES [phone] Rosana Solo MD LAB - URINE CHEMISTR Y ORDERABLES [facility] ACCOUNT BILL [address] [place] [address] * (ABNORMAL) HEMOGLOBIN A1C (03/01/2017 2:19 PM AUTO ELECTRICIAN) Hemoglobin A1c 7.0(H) 4.2 - 6.3 % [facility] ACCOUNT BILL Comment:AVERAGE GLUCOSE MG/D L BLOOD 154 mg/dL Whole Blood BLOOD SPECIMEN WITH EDTA / Unknown 03/01/2017 2:19 PM AUTO ELECTRICIAN 03/01/2017 Narrative Resulting Agency Comment [place] [address] [address] ??Ana LINARES [phone] Rosana Solo MD LAB - CHEMISTRY ORDE RABLES [facility] ACCOUNT BILL [address] [place] [address] * (ABNORMAL) COMPREHENSIVE METABOLIC PANEL (03/01/2017 2:19 PM AUTO ELECTRICIAN) Glucose 86 74 - 106 mg/dL [facility] ACCOUNT BILL BUN 25(H) 7 - 21 mg/dL [facility] ACCOUNT BILL Creatinine 1.70(H) 0.50 - 1.30 mg/dL [facility] ACCOUNT BILL eGFR by MDRD 39 mL/min/1.7 3m2 [facility] ACCOUNT BILL eGFR by MDRD 47 mL/min/1.7 3m2 [facility] ACCOUNT BILL Sodium 136 136 - 145 mmol/L [facility] ACCOUNT BILL Potassium 5.2(H) 3.5 - 5.1 mmol/L [facility] ACCOUNT BILL Chloride 104 98 - 107 mmol/L [facility] ACCOUNT BILL CO2 27 22 - 31 mmol/L [facility] ACCOUNT BILL Calcium 9.0 8.5 - 10.1 mg/dL [facility] ACCOUNT BILL Protein Total 7.4 6.4 - 8.2 gm/dL [facility] ACCOUNT BILL Albumin 3.3(L) 3.4 - 5.0 gm/dL [facility] ACCOUNT BILL Bilirubin Total 0.4 0.2 - 1.0 mg/dL [facility] ACCOUNT BILL Alkaline Phosphatase 82 38 - 126 U/L [facility] ACCOUNT BILL AST 11 5 - 40 U/L [facility] ACCOUNT BILL ALT 12(L) 13 - 61 U/L [facility] ACCOUNT BILL Blood BLOOD SPECIMEN / Unknown 03/01/2017 2:19 PM AUTO ELECTRICIAN 03/01/2017 Narrative Resulting Agency Comment [facility] [address] ??Ana LINARES [phone] Rosana Solo MD LAB - CHEMISTRY MELYSSA CHAHAL [facility] ACCOUNT BILL [address] [place] [address] * LIPID PROFILE (03/01/2017 2:19 PM AUTO ELECTRICIAN) Cholesterol 149 <200 mg/dL [facility] ACCOUNT BILL Triglycerides 97 <150 mg/dL [facility] ACCOUNT BILL HDL Cholesterol 43 >40 mg/dL [facility] ACCOUNT BILL VLDL Calculated 19 <=30 mg/dL [facility] ACCOUNT BILL LDL Calculated 87 <130 mg/dL [facility] ACCOUNT BILL Comment:Not calculated Blood BLOOD SPECIMEN / Unknown 03/01/2017 2:19 PM AUTO ELECTRICIAN 03/01/2017 Narrative Resulting Agency Comment [facility] [address] ??Ana LINARES [phone] Rosana Solo MD LAB - CHEMISTRY MELYSSA CHAHAL [facility] ACCOUNT BILL [address] [place] [address] documented in this encounter Visit Diagnoses Diagnosis Type 2 diabetes mellitus with stage 3 chronic kidney disease, without long-term current use of insulin (HCC)- Primary Type 2 diabetes mellitus with diabetic neuropathy, without long-term current use of insulin (HCC) 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
--- OUTSIDE RECORDS SUMMARY | 2024-04-03 01:02 | XMS_ITS | Encounter Summary ---
Author Organization [facility] Address [address] [facility] [place] [address] Care Team Providers Care Encoding Machine Operator Name Role Phone Ricco Andrew MD Unavailable [phone] Reason for Visit * Reason Onset Date Comments MEDICATION REFILL 02/01/2017 Encounter Details Date Type Department Care Team (Late st Contact Info) Description 02/01/2017 Refill [facility] - Family Medicine [address] [place], [place] [id number] Rosana Solo MD [address] [facility] [address] [place] [address] MEDICATION REFILL Social History Tobacco Use [...] encounter Miscellaneous Notes * Telephone Encounter - [place] Dennis - 02/01/2017 4:49 PM CST Daughter is requesting recent order for Loratadine and lisinopril be sent to [facility] pharmacy in [facility]. Daughter is requesting a call once done. Pt scheduled for 03/01/17 for follow up JAVA DEVELOPER ARCHITECT documented in this encounter Plan of Treatment Upcoming Encounters Date Type Department Care Team (Late st Contact Info) Description 04/07/2024 10:00 AM LEAD JAVA DEVELOPER ARCHITECT Office Visit [facility] [address] [facility] [address] [place] [address] Evelin Blanco APRN-CNP [address] [facility] [address] [place] [address] 06/06/2024 2:00 PM CDT Office Visit [facility] [address] [facility] [address] [place] [address] [place] [address] [facility] [address] [place] [address] documented as of this encounter Goals Goal Patient Goal Type Associated Problems Recent Progress Patient-Stated? Author Blood Pressure < 140/90 Blood Pressure 96/68(2023 2:34 PM LEAD JAVA DEVELOPER ARCHITECT) Rere Vargas Note: Caring for Your High [...] Where can I go for more information? [place] Heart Association National Center: http://www.americanheart.org 1. In the top header, click ? Conditions? . 2. In the top header, click ? high blood pressure.? 3. For a printable blood pressure tracker, scroll toward the bottom of the page to Related Tools, and click ? HBP Trackers.? 9-523-JSC-USA-1 or ( ) National Heart, Lung and Blood [place]: http://www.nhlbi.nih.gov/health/infoctr/index.htm Blood Pressure < 140/90 Blood Pressure 96/68(2023 2:34 PM LEAD JAVA DEVELOPER ARCHITECT) Rere Vargas Note: Caring for Your High [...] Where can I go for more information? [place] Heart Association National Center: http://www.americanheart.org 1. In the top header, click ? Conditions? . 2. In the top header, click ? high blood pressure.? 3. For a printable blood pressure tracker, scroll toward the bottom of the page to Related Tools, and click ? HBP Trackers.? 3-051-WTP-USA-1 or ( ) National Heart, Lung and Blood [place]: http://www.nhlbi.nih.gov/health/infoctr/index.htm Exercise 5X per week (30 min per time) Exercise Rere Vargas Note: The [place] College of Sports Medicine recommends all adults [...] how to manage your diabetes: ? ? [place] Diabetes Association: www.diabetes.org 6-077-SAXSOGFB ( ) ? ? [place] Diabetes Association-Support group line: www.professional.diabetes.org ? ? [place] Heart Association: www.heart.org or 3-006-EFU-USA-1 ( ) [employer] MyPlate: www.Wangsu Technologymyplate.gov Have labs drawn Lifestyle Rere Vargas [...] on filedocumented in this encounter Care Teams Encoding Machine Operator Relationship Specialty [place] [address] [id number] Ophthalmology 04/06/16 documented as of this encounter
--- OUTSIDE RECORDS SUMMARY | 2024-04-03 01:02 | XMS_ITS | Encounter Summary ---
Author Organization [facility] Address [address] [facility] [place] [address] Care Team Providers Care Investigator Vice Name Role Phone Ricco Andrew MD Unavailable [phone] Reason for Visit * Reason Onset Date Comments Referral 05/07/2017 Encounter Details Date Type Department Care Team (Late st Contact Info) Description 05/07/2017 Telephone [facility] - Family Medicine [address] [place], [place] [id number] Rosana Solo MD [address] [address] Referral Social History Tobacco Use [...] Miscellaneous Notes * Telephone Encounter - Bere Engel - 05/07/2017 10:07 AM CST Sent via LeadiD RLINER * Telephone Encounter - Venancio Dupree - 05/07/2017 9:53 AM CST Caller Requesting Referral: Dr Bourne office PCP:Dr. Rosana Solo Specialist:Dr. Vega Specialist Phone #:[phone] Specialist's Fax #:[phone] Diagnosis:right long finger Appointment Date:pt currently in office Insurance: [employer] RLINER documented in this encounter Plan of Treatment Upcoming Encounters Date Type Department Care Team (Late st Contact Info) Description 04/07/2024 10:00 AM UNDERLINER Office Visit [facility] [address] [facility] [address] [place] [address] Evelin Blanco APRN-CNP [address] [facility] [address] [place] [address] 06/06/2024 2:00 PM CDT Office Visit [facility] [address] [facility] [address] [place] [address] [place] [address] [facility] [address] [address] documented as of this encounter Goals Goal Patient Goal Type Associated Problems Recent Progress Patient-Stated? Author Blood Pressure < 140/90 Blood Pressure 96/68(2023 2:34 PM UNDERLINER) Rere Vargas Note: Caring for Your High [...] Related Tools, and click ? HBP Trackers.? 7-151-CKW-USA-1 or ( ) National Heart, Lung and Blood [place]: http://www.nhlbi.nih.gov/health/infoctr/index.htm Blood Pressure < 140/90 Blood Pressure 96/68(2023 2:34 PM UNDERLINER) Rere Vargas Note: Caring for Your High [...] Related Tools, and click ? HBP Trackers.? 7-061-KQM-USA-1 or ( ) National Heart, Lung and Blood [place]: http://www.nhlbi.nih.gov/health/infoctr/index.htm Exercise 5X per week (30 min per time) Exercise Rere Vargas Note: The [place] College [employer] Sports [...] ? ? [place] Diabetes Association: www.diabetes.org 5-551-KOFUBYVO ( ) ? ? [place] Diabetes Association-Support group line: www.professional.diabetes.org ? ? [place] Heart Association: www.heart.org or 4-327-KUH-USA-1 ( ) [employer] MyPlate: www.Cozmik Bodymyplate.gov Have labs drawn Lifestyle Rere Vargas Note: [...] on filedocumented in this encounter Care Teams Investigator Vice Relationship Specialty [place] [address] [address] Ophthalmology 04/06/16 documented as of this encounter
--- OUTSIDE RECORDS SUMMARY | 2024-04-03 01:02 | XMS_ITS | Encounter Summary ---
Author Organization [facility] Address [address] [facility] [place] [address] Care Team Providers Care Turner Splitter Machine Operator Name Role Phone Ricco Andrew MD Unavailable [phone] Reason for Visit * Reason Comments Refill Request Encounter Details Date Type Department Care Team (Late st Contact Info) Description 10/17/2017 Refill [facility] - Family Medicine [address] [place] [address] Rosana Solo MD [facility] [address] Refill Request Social History Tobacco [...] * Telephone Encounter - Bere Ruano - 10/18/2017 4:57 PM CDT Future appointment 03/02/18 documented in this encounter Plan of Treatment Upcoming Encounters Date Type Department Care Team (Late st Contact Info) Description 04/07/2024 10:00 AM INSURANCE UNDERWRITER Office Visit [facility] [address] [facility] [address] [place] [address] Evelin Blanco APRN-CNP [address] [facility] [address] [place] [address] 06/06/2024 2:00 PM CDT Office Visit [facility] [address] [facility] [address] [place] [address] [place] [address] [facility] [address] [place] [address] documented as of this encounter Goals Goal Patient Goal Type Associated Problems Recent Progress Patient-Stated? Author Blood Pressure < 140/90 Blood Pressure 96/68(2023 2:34 PM INSURANCE UNDERWRITER) Rere Vargas Note: Caring for Your High [...] Related Tools, and click ? HBP Trackers.? 3-214-ATY-USA-1 or ( ) National Heart, Lung and Blood [place]: http://www.nhlbi.nih.gov/health/infoctr/index.htm Blood Pressure < 140/90 Blood Pressure 96/68(2023 2:34 PM INSURANCE UNDERWRITER) Rere Vargas Note: Caring for Your High [...] Related Tools, and click ? HBP Trackers.? 9-439-OEO-USA-1 or ( ) National Heart, Lung and Blood [place]: http://www.nhlbi.nih.gov/health/infoctr/index.htm Exercise 5X per week (30 min per time) Exercise No Rere Kaufman Note: The [place] College of Sports Medicine [...] diabetes: ? ? [place] Diabetes Association: www.diabetes.org 4-063-TIGCOXSF ( ) ? ? [place] Diabetes Association-Support group line: www.professional.diabetes.org ? ? [place] Heart Association: www.heart.org or 2-580-JYR-USA-1 ( ) [employer] MyPlate: www.Ranovusmyplate.gov Have labs drawn Lifestyle Rere Vargas Note: [...] on filedocumented in this encounter Care Teams Turner Splitter Machine Operator Relationship Specialty [place] [address] [address] Ophthalmology 04/06/16 documented as of this encounter
--- OUTSIDE RECORDS SUMMARY | 2024-04-03 01:02 | XMS_ITS | Encounter Summary ---
Author Organization [facility] Address [address] [facility] [place] [address] Care Team Providers Care Supervisor Fiberglass Boat Assembly Name Role Phone Ricco Andrew MD Unavailable Encounter Details Date Type Department Care Team (Late st Contact Info) Description 03/02/2018 Orders Only [facility] [id number] [place] [address] [address] [place] [address] Rosana Solo MD [address] [address] Social History Tobacco Use Types Packs/Day Years [...] st Contact Info) Description 04/07/2024 10:00 AM TICKET SELLER Office Visit [facility] [address] [facility] [address] [place] [address] Evelin Blanco, POLICE SPECIALIST-DENIS [address] [facility] [address] [place] [address] 06/06/2024 2:00 PM CDT Office Visit [facility] [address] [facility] [address] [place] [address] [place] [address] [facility] [address] [place] [address] [place] [address] documented as of this encounter Goals Goal Patient Goal Type Associated Problems Recent Progress Patient-Stated? Author Blood Pressure < 140/90 Blood Pressure 96/68(2023 2:34 PM TICKET SELLER) Rere Vargas Note: Caring for Your [...] Where can I go for more information? [place] Heart Association National Center: http://www.americanheart.org 1. In the top header, click ? Conditions? . 2. In the top header, click ? high blood pressure.? 3. For a printable blood pressure tracker, scroll toward the bottom of the page to Related Tools, and click ? HBP Trackers.? 7-006-YYI-USA- or ( ) National Heart, Lung and Blood [place]: http://www.nhlbi.nih.gov/health/infoctr/index.htm Blood Pressure < 140/90 Blood Pressure 96/68(2023 2:34 PM TICKET SELLER) Rere Vargas Note: Caring for Your [...] Where can I go for more information? [place] Heart Association National Center: http://www.americanheart.org 1. In the top header, click ? Conditions? . 2. In the top header, click ? high blood pressure.? 3. For a printable blood pressure tracker, scroll toward the bottom of the page to Related Tools, and click ? HBP Trackers.? 4-567-AEP-USA-1 or ( ) National Heart, Lung and Blood [place]: http://www.nhlbi.nih.gov/health/infoctr/index.htm Exercise 5X per week (30 min per time) Exercise Rere Vargas Note: The [place] College of Sports Medicine recommends all adults [...] how to manage your diabetes: ? ? [place] Diabetes Association: www.diabetes.org 3-168-GGXJZVWG ( ) ? ? [place] Diabetes Association-Support group line: www.professional.diabetes.org ? ? [place] Heart Association: www.heart.org or 7-185-XME-USA-1 ( ) [employer] MyPlate: www.Melon #usemelonmyplate.gov Have labs drawn Lifestyle Rere Vargas Note: [...] Procedure Name Priority Date/Time Associated Diagnosis Comments T4 FREE 03/02/2018 1:47 PM TICKET SELLER documented in this encounter Results * T4 FREE (03/02/2018 1:47 PM TICKET SELLER) T4 Free Direct 1.12 0.65 - 1.34 ng/dL [facility] ACCOUNT BILL 03/02/2018 1:47 PM TICKET SELLER 03/02/2018 Narrative Resulting Agency Comment [facility] [address] ??[facility] [id number] Rosana Solo MD LAB - CHEMISTRY [facility] Organization Address City/State/ZIP Co de Phone Number [facility] ACCOUNT BILL [address] [place] [address] documented in this encounter Visit Diagnoses Not on filedocumented in this encounter Care Teams Supervisor Fiberglass Boat Assembly Relationship Specialty [place] [address] [facility] [address] [place] [address] Ophthalmology 04/06/16 documented as of this encounter
--- OUTSIDE RECORDS SUMMARY | 2024-04-03 01:02 | XMS_ITS | Encounter Summary ---
Author Organization [facility] Address [address] [facility] [place] [address] Care Team Providers Care Shoe Designer Name Role Phone Ricco Andrew MD Unavailable [phone] Reason for Visit * Reason Onset Date Comments MEDICATION REFILL 09/24/2016 Encounter Details Date Type Department Care Team (Late st Contact Info) Description 09/24/2016 Refill [facility] - Family Medicine [address] [place], [place] [id number] Rosana Solo MD [address] [place] [address] MEDICATION REFILL Social History Tobacco Use [...] * Telephone Encounter - Venancio Dupree - 09/24/2016 8:31 AM CDT Already filled documented in this encounter Plan of Treatment Upcoming Encounters Date Type Department Care Team (Late st Contact Info) Description 04/07/2024 10:00 AM RN OPERATING ROOM Office Visit [facility] [address] [facility] [address] [place] [address] Evelin Blanco APRN-CNP [address] [facility] [address] [place] [address] 06/06/2024 2:00 PM CDT Office Visit [facility] [address] [facility] [address] [place] [address] [place] [address] [facility] [address] [place] [address] documented as of this encounter Goals Goal Patient Goal Type Associated Problems Recent Progress Patient-Stated? Author Blood Pressure < 140/90 Blood Pressure 96/68(2023 2:34 PM RN OPERATING ROOM) Rere Vargas Note: Caring for Your High [...] Where can I go for more information? [place] Heart Association National Center: http://www.americanheart.org 1. In the top header, click ? Conditions? . 2. In the top header, click ? high blood pressure.? 3. For a printable blood pressure tracker, scroll toward the bottom of the page to Related Tools, and click ? HBP Trackers.? 6-621-IHW-USA-1 or ( ) National Heart, Lung and Blood [place]: http://www.nhlbi.nih.gov/health/infoctr/index.htm Blood Pressure < 140/90 Blood Pressure 96/68(2023 2:34 PM RN OPERATING ROOM) Rere Vargas Note: Caring for Your High [...] Where can I go for more information? [place] Heart Association National Center: http://www.americanheart.org 1. In the top header, click ? Conditions? . 2. In the top header, click ? high blood pressure.? 3. For a printable blood pressure tracker, scroll toward the bottom of the page to Related Tools, and click ? HBP Trackers.? 4-067-YUV-USA-1 or ( ) National Heart, Lung and Blood [place]: http://www.nhlbi.nih.gov/health/infoctr/index.htm Exercise 5X per week (30 min per time) Exercise Rere Vargas Note: The [place] College of Sports Medicine recommends all adults [...] how to manage your diabetes: ? ? [place] Diabetes Association: www.diabetes.org 5-390-WWDDZONU ( ) ? ? [place] Diabetes Association-Support group line: www.professional.diabetes.org ? ? [place] Heart Association: www.heart.org or 2-060-LXT-USA-1 ( ) [employer] MyPlate: www.Uro Jockmyplate.gov Have labs drawn Lifestyle Rere Vargas Note: [...] substances that can build up in the carranaz of your arteries. This can increase your [...] on filedocumented in this encounter Care Teams Shoe Designer Relationship Specialty [place] [address] [address] Ophthalmology 04/06/16 documented as of this encounter
--- OUTSIDE RECORDS SUMMARY | 2024-04-03 01:02 | XMS_ITS | Encounter Summary ---
Author Organization [facility] Address [address] [facility] [place] [address] Care Team Providers Care Show Jumping Instructor Name Role Phone Ricco Andrew MD Unavailable [phone] Reason for Visit * Reason Comments Diabetes 6 mos f/u Encounter Details Date Type Department Care Team (Late st Contact Info) Description 03/02/2018 1:00 PM TOUR CONSULTANT Office Visit [facility] - Family Medicine [address] [place], [place] [id number] Rosana Solo MD [facility] [address] [address] Type 2 diabetes mellitus with stage 3 chronic kidney disease, without long-term current use of insulin (HCC) (Primary Dx); Type 2 diabetes mellitus with diabetic neuropathy, without long-term current use of insulin (HCC); Benign hypertension with chronic kidney disease; Alzheimer's dementia without behavioral disturbance, unspecified timing of dementia onset; Hypothyroidism, adult; Arthritis of right knee; Influenza vaccine needed; Need for pneumococcal vaccine Social History Tobacco Use Types Packs/Day Years [...] Sign Reading Time Taken Comments Blood Pressure 102/68 03/02/2018 1:18 PM TOUR CONSULTANT by Pulse 100 03/02/2018 1:00 PM TOUR CONSULTANT Temperature 36.9 ??C (98.5 ??F) 03/02/2018 1:00 PM CS T Respiratory Rate 18 03/02/2018 1:00 PM TOUR CONSULTANT Oxygen Saturation - - Inhaled Oxygen Concentration - - Weight 82.1 kg (181 lb) 03/02/2018 1:00 PM TOUR CONSULTANT Height 165.1 cm (5' 5) 03/02/2018 1:00 PM TOUR CONSULTANT Body Mass Index 30.12 03/02/2018 1:00 PM TOUR CONSULTANT documented in this encounter Patient Instructions * Patient Instructions* Rosana Solo MD - 03/02/2018 1:22 PM TOUR CONSULTANT Directions to [facility]: [facility] is located on the 1st floor of this building. Please take the elevators down to the lobby.As soon as you exit the elevator, take an immediate left out of the elevators and then go left downthe first hallway. [facility] is located in [address] on the left side just past the restrooms. They orders have been transmitted electronically, so the should have them. Caring For Your Diabetes ?? Follow a diabetic diet with healthy meals that are low salt, low fat, high fiber. For more information on a diabetic diet, please go to the [place] Diabetes Association website at www.diabetes.org and select [...] minutes if trying to lose weight) The [place] [employer] [...] a healthy weight. Body mass index is 30.12 kg/(m^2). If your BMI (a ratio of [...] issues. ?? See me in 6 months CONSULTANT documented in this encounter Progress Notes * Rosana Solo MD - 03/02/2018 1:04 PM CST SUBJECTIVE: Mk Sanches is a 82 y.o. white male here for follow up chronic issues Living with son and daughter. Accompanied by daughter again today who helped provide history HTN: Home BP monitoring is not done. Cardiovascular ROS: denies chest pain, dyspnea on exertion or palpitations Denies near syncope. Current Cardiac Medications: lisinopril 10 mg Diabetes type II with neuropathy: Glucose monitoring is performed occasionally. Blood glucoses 145 check (goal 80-120 fasting, <180 if 2 [...] ulcers. Dementia/Alzheimers - on Namenda. Primarily short-term impairment.Some decline in memory in past several month. Pt denies memory concerns. He feels good. Hypothyroidism - on levothyroxine 75 mcg daily. Energy level ok. No temperature intolerance Denies depression. Coping ok for the most part. Some cough, no chest pain Struggling some with right knee. Occasionally stiff in mornigna dn some pain at night. Pt denies signficant. No pain currently. No swelling Past Medical History: Diagnosis Date ??? Chronic renal failure ??? Dementia ??? Dermatitis ??? DM (diabetes mellitus) ??? HTN (hypertension) ??? Hx of rheumatic fever ??? Hypothyroid ??? Seasonal allergies ??? Trigger finger Body mass index is 30.12 kg/(m^2). Outpatient Medications Prior to Visit Medication Sig Dispense Refill ??? memantine (NAMENDA) 5 MG tablet TAKE 1 TABLETS BY MOUTH 2 TIMES DAILY 180 tablet 1 ??? glipiZIDE (GLUCOTROL) 5 MG tablet TAKE 1 TABLET BY MOUTH DAILY BEFORE BREAKFAST REASONS: TYPE 2DIABETES 90 tablet 1 ??? levothyroxine (SYNTHROID) 75 MCG tablet TAKE 1 TAB BY MOUTH DAILY BEFORE BREAKFAST REASONS: UNDERACTIVE THYROID 90 tablet 1 ??? ketoconazole (NIZORAL) 2 % shampoo Apply to affected area Three times a week Reasons: Dandruff 120 mL 1 ??? loratadine (CLARITIN) 10 MG tablet TAKE 1 TABLET BY MOUTH EVERY DAY 90 tablet 3 ??? DIONICIO ASPIRIN REGIMEN PO ??? lisinopril (PRINIVIL; ZESTRIL) 10 MG tablet TAKE 1 TAB BY MOUTH ONCE DAILY REASONS: HIGH BLOOD PRESSURE 90 tablet 1 No facility-administered medications prior to visit. [...] ??? ANNUAL MEDICARE WELLNESS VISIT 02/05/2016 ??? INFLUENZA VACCINE (1) 11/20/2017 ??? DIABETES-HGB A1C 03/02/2018 ??? HCC (Chart Reviewer Use Only) 08/31/2018 ??? DIABETES-FOOT EXAM WITH MONOFILAMENT 08/31/2018 ??? DIABETES-EYE EXAM 01/11/2019 ??? HIB VACCINE Aged Out ??? MENINGOCOCCAL VACCINE Aged Out Immunization History Administered Date(s) Administered ??? FLU VACCINE TRI INC ANTIG PF 02/05/2016, 03/01/2017, 03/02/2018 ??? PNEUMOCOCCAL PPSV23 07/25/2012 ??? Pneumococcal Pcv13 Conj 03/02/2018 REVIEW OF SYSTEMS Constitutional: Denies fever Ears, nose, mouth, and throat: Denies nasal discharge. +Decreased hearing Respiratory: Denies cough, SOB Cardiovascular: Denies chest pain, palpitations Gastrointestinal: Denies abdominal pain Neurological: Denies syncope, dizziness. Denies TIA or stroke-like symptoms. Behavioral/Psych: Decreased memory. Denies depression OBJECTIVE: Physical Examination: Vitals: 03/02/18 1300 03/02/18 1318 BP: 114/78 102/68 Pulse: 100 Resp: 18 Temp: 98.5 ??F (36.9 ??C) Weight: 82.1 kg (181 lb) Height: 1.651 m (5' 5) Body mass index is 30.12 kg/(m^2). No exam data present CrCl cannot [...] intact except for decreased hearing.. Grossly non-focal abd - soft, nontender Extremities: Peripheral pulses 2+ and symmetric bilateral radial and pedal. No peripheral edema. Nocyanosis, or clubbing Psych/MSE: normal mood and affect. Decreased short-term memory, but pleasant Right knee - mild patellar crepitus. Mild hamstring tightness. No tenderness to medial/lateral joint line or patellar. No swelling. No instability Recent Labs Component Name 03/01/17 1419 CHOL 149 TRIG 97 HDL 43 LDLCALC 87 Recent Labs Component Name 03/02/18 1347 08/31/17 1344 03/01/17 1419 HGBA1C 7.2* 7.9* 7.0* Recent Labs Component Name 08/31/17 1344 03/01/17 1419 07/23/16 1416 04/06/16 1536 SODIUM 138 136 136 139 POTASSIUM 5.2* 5.2* 5.2* 4.9 CHLORIDE 105 104 101 104 CO2 29 27 29 27 BUN 21 25* 25* 27* CREATININE 1.70* 1.70* 1.60* 1.80* GLUCOSE 165* 86 96 112* CALCIUM 9.0 9.0 9.6 9.3 ALBUMIN 3.7 3.3* - 3.8 ALKPHOS 83 82 - 65 ALT 20 12* - 16 AST 10 11 - 11 TBIL 0.3 0.4 - 0.3 TPROT 7.3 7.4 - 7.3 EGFR 39 39 42 37 Recent Labs Component Name 03/02/18 1347 03/01/17 1419 MICROALBCREA 6 <7 ASSESSMENT & PLAN: Type 2 diabetes mellitus with stage 3 chronic kidney disease, without long-term current use of insulin - Tolerate looser control given age and dementia. hgb A1c goal <8. fasting BS goal <180. Monitor - Plan: lisinopril (PRINIVIL; ZESTRIL) 2.5 MG tablet, COMPREHENSIVE METABOLIC PANEL, LIPID PROFILE, HEMOGLOBIN A1C, TSH REFLEX FREE T4, MICROALB/CREAT RATIO URINE RANDOM PANEL Type 2 diabetes mellitus with diabetic neuropathy, without long-term current use of insulin - Plan:lisinopril (PRINIVIL; ZESTRIL) 2.5 MG tablet Benign hypertension with chronic kidney disease - too tightly controlled. Will wean lisinopril to just renal protective dose Alzheimer's dementia without behavioral disturbance, unspecified timing of dementia onset - moderate dementia. Continue namenda Hypothyroidism, adult - euthyroid. cont rx. monitor Arthritis of right knee - mild symptoms in morning and at night. no pain or swelling on exam. Rec tylenol OTC. monitor Influenza vaccine needed - Plan: FLU VACCINE TRI INC ANTIG PF Need for pneumococcal vaccine - Plan: PNEUMOCOCCAL PCV13 VACCINE ZOE IM See Goals in chart Follow up in 6 months Or return to clinic sooner if persistent or worsening symptoms An After Visit Summary was printed and given to the patient. Rosana Solo MD CONSULTANT documented in this encounter Plan of Treatment Upcoming Encounters Date Type Department Care Team (Late st Contact Info) Description 04/07/2024 10:00 AM TOUR CONSULTANT Office Visit [facility] [id number] [place] [phone] Evelin Blanco APRN-LENS MOLD SETTER [id number] [place] [address] 06/06/2024 2:00 PM CDT Office Visit [facility] [id number] [place] [address] [place] [id number] [place] [phone] documented as of this encounter Goals Goal Patient Goal Type Associated Problems Recent Progress Patient-Stated? Author Blood Pressure < 140/90 Blood Pressure 96/68(2023 2:34 PM TOUR CONSULTANT) Rere Vargas Note: Caring for Your [...] Related Tools, and click ? HBP Trackers.? 8-909-CUB-USA-1 or ( ) National Heart, Lung and Blood [place]: http://www.nhlbi.nih.gov/health/infoctr/index.htm Blood Pressure < 140/90 Blood Pressure 96/68(2023 2:34 PM TOUR CONSULTANT) Rere Vargas Note: Caring for Your [...] Related Tools, and click ? HBP Trackers.? 2-694-LGB-USA-1 or ( ) National Heart, Lung and Blood [place]: http://www.nhlbi.nih.gov/health/infoctr/index.htm Exercise 5X per week (30 min [...] ? ? [place] Diabetes Association: www.diabetes.org 9-198-UWBJRBIF ( ) ? ? [place] Diabetes Association-Support group line: www.professional.diabetes.org ? ? [place] Heart Association: www.heart.org or 7-746-AHB-USA-1 ( ) Aura XM MyPlate: www.BubbleLife Mediamyplate.gov Have labs drawn Lifestyle No Rere Kaufman [...] Procedure Name Priority Date/Time Associated Diagnosis Comments TSH REFLEX FREE T4 Routine 03/02/2018 1: 47 PM TOUR CONSULTANT Type 2 diabetes mellitus with stage 3 chronic kidney disease, without long-term current use of insulin (HCC) MICROALB/CREAT RATIO URINE RANDOM PANEL Routine 03/02/2018 1:47 PM TOUR CONSULTANT Type 2 diabetes mellitus with stage 3 chronic kidney disease, without long-term current use of insulin (HCC) HEMOGLOBIN A1C Routine 03/02/2018 1:47 PM TOUR CONSULTANT Type 2 diabetes mellitus with stage 3 chronic kidney disease, without long-term current use of insulin (HCC) COMPREHENSIVE METABOLIC PANEL Routine 03/02/2018 1:47 PM TOUR CONSULTANT Type 2 diabetes mellitus with stage 3 chronic kidney disease, without long-term current use of insulin (HCC) LIPID PROFILE Routine 03/02/2018 1:47 PM TOUR CONSULTANT Type 2 diabetes mellitus with stage 3 chronic kidney disease, without long-term current use of insulin (HCC) documented in this encounter Results * MICROALB/CREAT RATIO URINE RANDOM PANEL (03/02/2018 1:47 PM TOUR CONSULTANT) Creatinine Urine 81 mg/dL [facility] ACCOUNT BILL Microalbumin Urine 0.5 mg/dL [facility] ACCOUNT BILL Microalbumin/Crea tinine Ratio 6 <30 mg/g [facility] ACCOUNT BILL Urine URINE SPECIMEN OBTAINED BY CLEAN CATCH PROCEDURE / Unknown 03/02/2018 1:47 PM TOUR CONSULTANT 03/02/2018 Narrative Resulting Agency Comment [facility] [id number] [address] ??Ana LINARES [phone] Rosana Solo MD LAB - URINE CHEMISTR Y ORDERABLES [facility] ACCOUNT BILL [address] [place] [address] * (ABNORMAL) TSH REFLEX FREE T4 (03/02/2018 1:47 PM TOUR CONSULTANT) TSH 3.99(H) 0.358 - 3.740 ulU/mL [facility] ACCOUNT BILL Blood BLOOD SPECIMEN / Unknown 03/02/2018 1:47 PM TOUR CONSULTANT 03/02/2018 Narrative Resulting Agency Comment [facility] [id number] [address] ??Ana LINARES [phone] Rosana Solo MD LAB - CHEMISTRY MELYSSA CHAHAL Performing Organization Address City/[facility]/ZIP Co de Phone Number [facility] ACCOUNT BILL [address] [place] [address] * (ABNORMAL) HEMOGLOBIN A1C (03/02/2018 1:47 PM TOUR CONSULTANT) Hemoglobin A1c 7.2(H) 4.2 - 6.3 % [facility] ACCOUNT BILL Comment:AVERAGE GLUCOSE MG/D L BLOOD 160 mg/dL Blood BLOOD SPECIMEN / Unknown 03/02/2018 1:47 PM TOUR CONSULTANT 03/02/2018 Narrative Resulting Agency Comment [place] [id number] [address] ??Ana LINARES [phone] Rosana Solo MD LAB - CHEMISTRY MELYSSA CHAHAL Performing Organization Address [facility] Co de Phone Number [facility] ACCOUNT BILL [address] [place] [address] * (ABNORMAL) LIPID PROFILE (03/02/2018 1:47 PM TOUR CONSULTANT) Cholesterol 171 <200 mg/dL [facility] ACCOUNT BILL Triglycerides 230(H) <150 mg/dL [facility] ACCOUNT BILL HDL Cholesterol 39(L) >40 mg/dL [facility] ACCOUNT BILL VLDL Calculated 46(H) <=30 mg/dL [facility] ACCOUNT BILL LDL Calculated 86 <130 mg/dL [facility] ACCOUNT BILL Comment:Not calculated Blood BLOOD SPECIMEN / Unknown 03/02/2018 1:47 PM TOUR CONSULTANT 03/02/2018 Narrative Resulting Agency Comment [facility] [phone] [address] ??Ana LINARES [phone] Rosana Solo MD LAB - CHEMISTRY MELYSSA CHAHAL Performing Organization Address City/[facility]/ZIP Co de Phone Number [facility] ACCOUNT BILL [address] [place] [address] * (ABNORMAL) COMPREHENSIVE METABOLIC PANEL (03/02/2018 1:47 PM TOUR CONSULTANT) Glucose 149(H) 74 - 106 mg/dL [facility] ACCOUNT BILL BUN 16 7 - 21 mg/dL [facility] ACCOUNT BILL Creatinine 1.50(H) 0.50 - 1.30 mg/dL [facility] ACCOUNT BILL eGFR by MDRD 45 mL/min/1.7 3m2 [facility] ACCOUNT BILL eGFR by MDRD 55 mL/min/1.7 3m2 [facility] ACCOUNT BILL Sodium 136 136 - 145 mmol/L [facility] ACCOUNT BILL Potassium 4.3 3.5 - 5.1 mmol/L [facility] ACCOUNT BILL Chloride 104 98 - 107 mmol/L [facility] ACCOUNT BILL CO2 26 22 - 31 mmol/L [facility] ACCOUNT BILL Calcium 8.4(L) 8.5 - 10.1 mg/dL [facility] ACCOUNT BILL Protein Total 7.3 6.4 - 8.2 gm/dL [facility] ACCOUNT BILL Albumin 3.5 3.4 - 5.0 gm/dL [facility] ACCOUNT BILL Bilirubin Total 0.2 0.2 - 1.0 mg/dL [facility] ACCOUNT BILL Alkaline Phosphatase 85 38 - 126 U/L [facility] ACCOUNT BILL AST 6 5 - 40 U/L [facility] ACCOUNT BILL ALT 17 13 - 61 U/L [facility] ACCOUNT BILL Blood BLOOD SPECIMEN / Unknown 03/02/2018 1:47 PM TOUR CONSULTANT 03/02/2018 Narrative Resulting Agency Comment [facility] [phone] [address] ??[facility] [phone] Rosana Solo MD LAB - CHEMISTRY MELYSSA CHAHAL [facility] Organization Address City/State/ZIP Co de Phone Number [facility] ACCOUNT BILL [address] [place] [address] documented in this encounter Visit Diagnoses Diagnosis Type 2 diabetes mellitus with stage 3 chronic kidney disease, without long-term current use of insulin (HCC)- Primary Type 2 diabetes mellitus with diabetic neuropathy, without long-term current use of insulin (HCC) Benign hypertension with chronic kidney disease Alzheimer's dementia without behavioral disturbance, unspecified timing of dementia onset (HCC) Hypothyroidism, adult Other specified acquired hypothyroidism Arthritis of right knee Unspecified arthropathy, lower leg Influenza vaccine needed Need for prophylactic vaccination and inoculation against influenza Need for pneumococcal vaccine Need for prophylactic vaccination against streptococcus pneumoniae (pneumococcus) documented in this encounter Care Teams Show Jumping Instructor Relationship Specialty [place] [address] [facility] [address] [place] [address] Ophthalmology 04/06/16 documented as of this encounter
--- OUTSIDE RECORDS SUMMARY | 2024-04-03 01:02 | XMS_ITS | Encounter Summary ---
Author Organization [facility] Address [address] [place] [address] Care Team Providers Care Grain Packer Name Role Phone Ricco Andrew MD Unavailable Encounter Details Date Type Department Care Team (Late Contact Info) Description 03/04/2018 Orders Only [facility] [address] [place] [address] Rosana Solo MD [address] [facility] [address] [place] [address] Social History Tobacco Use Types Packs/Day [...] (Late Contact Info) Description 04/07/2024 10:00 AM MEDICAL RADIATION THERAPIST Office Visit [facility] Medical [facility] - Family Medicine [address] [facility] [address] [place], [place] [phone] Evelin Blanco, JOSETTE-DENIS [address] [facility] [address] [place] [address] 06/06/2024 2:00 PM CDT Office Visit [facility] [address] [place] [address] [place] [address] [facility] [address] [place] [address] [place] [phone] documented as of this encounter Goals Goal Patient Goal Type Associated Problems Recent Progress Patient-Stated? Author Blood Pressure < 140/90 Blood Pressure 96/68(2023 2:34 PM MEDICAL RADIATION THERAPIST) Rere Vargas Note: Caring for Your High [...] Where can I go for more information? [place] Heart Association National Center: http://www.americanheart.org 1. In the top header, click ? Conditions? . 2. In the top header, click ? high blood pressure.? 3. For a printable blood pressure tracker, scroll toward the bottom of the page to Related Tools, and click ? HBP Trackers.? 2-074-YYA-USA- or ( ) National Heart, Lung and Blood [place]: http://www.nhlbi.nih.gov/health/infoctr/index.htm Blood Pressure < 140/90 Blood Pressure 96/68(2023 2:34 PM MEDICAL RADIATION THERAPIST) Rere Vargas Note: Caring for Your High [...] Where can I go for more information? [place] Heart Association National Center: http://www.americanheart.org 1. In the top header, click ? Conditions? . 2. In the top header, click ? high blood pressure.? 3. For a printable blood pressure tracker, scroll toward the bottom of the page to Related Tools, and click ? HBP Trackers.? 6-382-UDY-USA-1 or ( ) National Heart, Lung and Blood [place]: http://www.nhlbi.nih.gov/health/infoctr/index.htm Exercise 5X per week (30 min per time) Exercise Rere Vargas Note: The [place] College [employer] recommends all adults [...] how to manage your diabetes: ? ? [place] Diabetes Association: www.diabetes.org 1-763-FJLKRAVS ( ) ? ? [place] Diabetes Association-Support group line: www.professional.diabetes.org ? ? [place] Heart Association: www.heart.org or 0-313-AII-USA-1 ( ) [employer] MyPlate: www.Bel[place] Beer Discoverymyplate.gov Have labs drawn Lifestyle Rere Vargas Note: [...] Procedure Name Priority Date/Time Associated Diagnosis Comments LAB RESULTS ORDER Routine 03/04/2018 documented in this encounter Results * LAB RESULTS ORDER (03/04/2018) Rosana Solo MD LAB - THERAPEUTIC DR HO MONITORING ORDERABLES documented in this encounter Visit Diagnoses Not on filedocumented in this encounter Care Teams Grain Packer Relationship Specialty [place] [id number] [address] Ophthalmology 04/06/16 documented as of this encounter
--- OUTSIDE RECORDS SUMMARY | 2024-04-03 01:02 | XMS_ITS | Encounter Summary ---
Author Organization [facility] Address [address] [facility] [place] [address] Care Team Providers Care Intelligence Support Officer Name Role Phone Ricco Andrew MD Unavailable [phone] Reason for Visit * Reason Comments Refill Request Encounter Details Date Type Department Care Team (Late st Contact Info) Description 04/25/2017 Refill [facility] - Family Medicine [address] [place] [address] Rosana Solo MD [address] [address] Refill Request Social History Tobacco [...] encounter Miscellaneous Notes * Telephone Encounter - Dylan Moreno - 04/26/2017 9:56 AM CST Mk Sanches Requested Prescriptions Pending Prescriptions Disp Refills ??? glipiZIDE (GLUCOTROL) 5 MG tablet [Pharmacy Med Name: GLIPIZIDE 5 MG TABLET] 90 tablet 1 Sig: TAKE 1 TABLET BY MOUTH IN THE MORNING BEFORE BREAKFAST Allergies Allergen Reactions ??? Ibuprofen Other HE HAS CKD AND SHOULD NOT TAKE NSAID'S Last refill- 01/25/2017 Last OV- 03/01/2017 Future OV- 08/31/2017 HOL RUBBER documented in this encounter Plan of Treatment Upcoming Encounters Date Type Department Care Team (Late st Contact Info) Description 04/07/2024 10:00 AM ALCOHOL RUBBER Office Visit [facility] [id number] [place] [address] [address] [place] [address] Evelin Blanco, SERVICE CENTER ASSISTANT-LAYDOWN MACHINE OPERATOR [address] [facility] [address] [place] [address] 06/06/2024 2:00 PM CDT Office Visit [facility] [id number] [place] [address] [address] [place] [address] [place] [id number] [place] [phone] documented as of this encounter Goals Goal Patient Goal Type Associated Problems Recent Progress Patient-Stated? Author Blood Pressure < 140/90 Blood Pressure 96/68(2023 2:34 PM ALCOHOL RUBBER) Rere Vargas Note: Caring for Your High [...] Where can I go for more information? [place] Heart Association National Center: http://www.americanheart.org 1. In the top header, click ? Conditions? . 2. In the top header, click ? high blood pressure.? 3. For a printable blood pressure tracker, scroll toward the bottom of the page to Related Tools, and click ? HBP Trackers.? 1-472-AKK-USA-1 or ( ) National Heart, Lung and Blood [place]: http://www.nhlbi.nih.gov/health/infoctr/index.htm Blood Pressure < 140/90 Blood Pressure 96/68(2023 2:34 PM ALCOHOL RUBBER) Rere Vargas Note: Caring for Your High [...] Where can I go for more information? [place] Heart Association National Center: http://www.americanheart.org 1. In the top header, click ? Conditions? . 2. In the top header, click ? high blood pressure.? 3. For a printable blood pressure tracker, scroll toward the bottom of the page to Related Tools, and click ? HBP Trackers.? 2-014-PBT-USA-1 or ( ) National Heart, Lung and Blood [place]: http://www.nhlbi.nih.gov/health/infoctr/index.htm Exercise 5X per week (30 min per time) Exercise No Rere Kaufman Note: The [place] [employer] recommends all adults [...] how to manage your diabetes: ? ? [place] Diabetes Association: www.diabetes.org 5-832-QDETVWDX ( ) ? ? [place] Diabetes Association-Support group line: www.professional.diabetes.org ? ? [place] Heart Association: www.heart.org or 6-831-KZX-USA-1 ( ) [employer] MyPlate: www.Paperless Postmyplate.gov Have labs drawn Lifestyle No Rere Kaufman [...] on filedocumented in this encounter Care Teams Intelligence Support Officer Relationship Specialty [place] [address] [phone] Ophthalmology 04/06/16 documented as of this encounter
--- OUTSIDE RECORDS SUMMARY | 2024-04-03 01:02 | XMS_ITS | Encounter Summary ---
Author Organization [facility] Health Address [address] [place] [address] Care Team Providers Care Vegetable Farm Manager Name Role Phone Ricco Andrew MD Unavailable [phone] Encounter Details Date Type Department Care Team (Late st Contact Info) Description 05/12/2018 Orders Only [facility] [address] [place] [address] Unknown, Provider Social History Tobacco Use Types Packs/Day Years [...] (Late Contact Info) Description 04/07/2024 10:00 AM AIRCRAFT ELECTRONICS TECHNICAL OFFICER Office Visit [facility] [address] [facility] [address] [place] [address] Evelin Blanco APRN-DENIS [address] [facility] [address] [place] [address] 06/06/2024 2:00 PM CDT Office Visit [facility] [address] [facility] [address] [place] [address] [place] [address] [place] [phone] documented as of this encounter Goals Goal Patient Goal Type Associated Problems Recent Progress Patient-Stated? Author Blood Pressure < 140/90 Blood Pressure 96/68(2023 2:34 PM AIRCRAFT ELECTRONICS TECHNICAL OFFICER) Rere Vargas Note: Caring for Your [...] Related Tools, and click ? HBP Trackers.? 1-404-LVL-USA-1 or ( ) National Heart, Lung and Blood [place]: http://www.nhlbi.nih.gov/health/infoctr/index.htm Blood Pressure < 140/90 Blood Pressure 96/68(2023 2:34 PM AIRCRAFT ELECTRONICS TECHNICAL OFFICER) Rere Vargas Note: Caring for Your [...] Related Tools, and click ? HBP Trackers.? 1-931-KYY-USA-1 or ( ) National Heart, Lung and Blood [place]: http://www.nhlbi.nih.gov/health/infoctr/index.htm Exercise 5X per week (30 min [...] diabetes: ? ? [place] Diabetes Association: www.diabetes.org 2-044-NWGZADIY ( ) ? ? [place] Diabetes Association-Support group line: www.professional.diabetes.org ? ? [place] Heart Association: www.heart.org or 9-938-JWD-USA-1 ( ) [employer] MyPlate: www.Internet Connectivity Groupmyplate.gov Have labs drawn Lifestyle No Rere [...] Procedure Name Priority Date/Time Associated Diagnosis Comments DIABETES EYE EXAM Routine 05/06/2018 documented in this encounter Results * DIABETES EYE EXAM (05/06/2018) Provider Unknown HEALTH MAINTENANCE documented in this encounter Visit Diagnoses Not on filedocumented in this encounter Care Teams Vegetable Farm Manager Relationship Specialty [place] [address] [phone] Ophthalmology 04/06/16 documented as of this encounter
--- OUTSIDE RECORDS SUMMARY | 2024-04-03 01:02 | XMS_ITS | Encounter Summary ---
Author Organization [facility] Address [address] [facility] [place] [address] Care Team Providers Care Cipher Expert Name Role Phone Ricco Andrew MD Unavailable [phone] Reason for Visit * Reason Comments Refill Request Encounter Details Date Type Department Care Team (Late st Contact Info) Description 05/18/2017 Refill [facility] - Family Medicine [address] [place] [address] Rosana Solo MD [address] [phone] Refill Request Social History Tobacco [...] * Telephone Encounter - Dylan Moreno - 05/19/2017 9:52 AM CST Mk Sanches Requested Prescriptions Pending Prescriptions Disp Refills ??? memantine (NAMENDA) 5 MG tablet [Pharmacy Med Name: MEMANTINE HCL 5 MG TABLET] 180 tablet 0 Sig: TAKE 1 TABLETS BY MOUTH 2 TIMES DAILY Allergies Allergen Reactions ??? Ibuprofen Other HE HAS CKD AND SHOULD NOT TAKE NSAID'S Last refill- 02/21/2017 Last OV- 03/01/2017 Future OV- 08/31/2017 O OPERATOR documented in this encounter Plan of Treatment Upcoming Encounters Date Type Department Care Team (Late st Contact Info) Description 04/07/2024 10:00 AM HYDRO OPERATOR Office Visit [facility] [id number] [place] [address] [address] [place] [address] Evelin Blanco, OUTPATIENT PHYSICAL THERAPIST-ANTIQUE FURNITURE REPRODUCER [address] [facility] [address] [place] [address] 06/06/2024 2:00 PM CDT Office Visit [facility] [id number] [place] [address] [address] [place] [address] [place] [phone] [place] [address] [address] [place] [address] documented as of this encounter Goals Goal Patient Goal Type Associated Problems Recent Progress Patient-Stated? Author Blood Pressure < 140/90 Blood Pressure 96/68(2023 2:34 PM HYDRO OPERATOR) Rere Vargas Note: Caring for Your [...] Related Tools, and click ? HBP Trackers.? 6-739-KKM-USA-1 or ( ) National Heart, Lung and Blood [place]: http://www.nhlbi.nih.gov/health/infoctr/index.htm Blood Pressure < 140/90 Blood Pressure 96/68(2023 2:34 PM HYDRO OPERATOR) Rere Vargas Note: Caring for Your [...] Related Tools, and click ? HBP Trackers.? 6-647-QXQ-USA-1 or ( ) National Heart, Lung and Blood [place]: http://www.nhlbi.nih.gov/health/infoctr/index.htm Exercise 5X per week (30 min [...] diabetes: ? ? [place] Diabetes Association: www.diabetes.org 5-689-BGAGKCEP ( ) ? ? [place] Diabetes Association-Support group line: www.professional.diabetes.org ? ? [place] Heart Association: www.heart.org or 1-834-VRH-USA-1 ( ) [employer] MyPlate: www.iDoc24myplate.gov Have labs drawn Lifestyle No Rere Kaufman [...] on filedocumented in this encounter Care Teams Cipher Expert Relationship Specialty [place] [address] [phone] Ophthalmology 04/06/16 documented as of this encounter
--- OUTSIDE RECORDS SUMMARY | 2024-04-03 01:02 | XMS_ITS | Encounter Summary ---
Author Organization [facility] Address [address] [facility] [place] [address] Care Team Providers Care Business Law Professor Name Role Phone Ricco Andrew MD Unavailable [phone] Reason for Visit * Reason Comments Refill Request Encounter Details Date Type Department Care Team (Late st Contact Info) Description 04/18/2018 Refill [facility] - Family Medicine [address] [place], [place] [id number] Rosana Solo MD [address] [phone] Refill Request Social History Tobacco [...] * Telephone Encounter - Geraldine Sheridan - 04/19/2018 11:23 AM CST Mk Sanches Requested Prescriptions Pending Prescriptions Disp Refills ??? glipiZIDE (GLUCOTROL) 5 MG tablet [Pharmacy Med Name: GLIPIZIDE 5 MG TABLET] 90 tablet 1 Sig: TAKE 1 TABLET BY MOUTH DAILY BEFORE BREAKFAST REASONS: TYPE 2 DIABETES Allergies Allergen Reactions ??? Ibuprofen Other HE HAS CKD AND SHOULD NOT TAKE NSAID'S Last refill- 10/18/17 Last OV-04/07/18 Future OV-08/29/18 PICKUP DRIVER * Telephone Encounter - Sarah Cabrera LPN - 04/19/2018 11:22 AM CST Requested Prescriptions Pending Prescriptions Disp Refills ??? glipiZIDE (GLUCOTROL) 5 MG tablet [Pharmacy Med Name: GLIPIZIDE 5 MG TABLET] 90 tablet 1 Sig: TAKE 1 TABLET BY MOUTH DAILY BEFORE BREAKFAST REASONS: TYPE 2 DIABETES Rosana Solo MD Last office visit: 04/07/2018 Next OV:08/29/2018 Last date filled - 01/16/2018 Other information: Recent Labs Component Name 03/02/18 1347 03/01/17 1419 CHOL 171 149 TRIG 230* 97 HDL 39* 43 LDLCALC 86 87 Recent Labs Component Name 03/02/18 1347 03/01/17 1419 TSH 3.99* 2.10 Recent Labs Component Name 03/02/18 1347 08/31/17 1344 03/01/17 1419 HGBA1C 7.2* 7.9* 7.0* Recent Labs Component Name 03/02/18 1347 SODIUM 136 POTASSIUM 4.3 CHLORIDE 104 CO2 26 BUN 16 CREATININE 1.50* GLUCOSE 149* CALCIUM 8.4* ALBUMIN 3.5 ALKPHOS 85 ALT 17 AST 6 TBIL 0.2 TPROT 7.3 EGFR 45 PICKUP DRIVER documented in this encounter Plan of Treatment Upcoming Encounters Date Type Department Care Team (Late st Contact Info) Description 04/07/2024 10:00 AM MILK PICKUP DRIVER Office Visit [facility] - Family Medicine [phone] [place] [address] [place] [address] Evelin Blanco, JOSETTE-RECOVERY COLLECTOR [address] [facility] [address] [place] [address] 06/06/2024 2:00 PM CDT Office Visit [facility] Family Medicine [address] [facility] [address] [place] [address] [place] [address] [facility] [address] [address] documented as of this encounter Goals Goal Patient Goal Type Associated Problems Recent Progress Patient-Stated? Author Blood Pressure < 140/90 Blood Pressure 96/68(2023 2:34 PM MILK PICKUP DRIVER) Rere Vargas Note: Caring for Your High [...] Related Tools, and click ? HBP Trackers.? 0-620-VABUSA- or ( ) National Heart, Lung and Blood [place]: http://www.nhlbi.nih.gov/health/infoctr/index.htm Blood Pressure < 140/90 Blood Pressure 96/68(2023 2:34 PM MILK PICKUP DRIVER) Rere Vargas Note: Caring for Your High [...] Related Tools, and click ? HBP Trackers.? 6-351-IZK-USA- or ( ) National Heart, Lung and Blood [place]: http://www.nhlbi.nih.gov/health/infoctr/index.htm Exercise 5X per week (30 min per time) Exercise Rere Vargas Note: The [place] College of Sports Medicine [...] diabetes: ? ? [place] Diabetes Association: www.diabetes.org 0-520-BMIPCFAB ( ) ? ? [place] Diabetes Association-Support group line: www.professional.diabetes.org ? ? [place] Heart Association: www.heart.org or 3-904-UIZ-USA-1 ( ) IMAGINATE - [employer] MyPlate: www.gridCommmyplate.gov Have labs drawn Lifestyle Rere Vargas Note: [...] on filedocumented in this encounter Care Teams Business Law Professor Relationship Specialty [place] [address] [phone] Ophthalmology 04/06/16 documented as of this encounter
--- OUTSIDE RECORDS SUMMARY | 2024-04-03 01:02 | XMS_ITS | Encounter Summary ---
Author Organization [facility] Address [address] [facility] [place] [address] Care Team Providers Care Aircraft Power Plant Assembler Name Role Phone Ricco Andrew MD Unavailable [phone] Reason for Visit * Reason Onset Date Comments MEDICATION REFILL 01/25/2017 Encounter Details Date Type Department Care Team (Late st Contact Info) Description 01/25/2017 Refill [facility] - Family Medicine [address] [place], [place] [id number] Chauncey Herrera MD [address] [place] [phone] MEDICATION REFILL Social History Tobacco Use [...] Telephone Encounter - Chauncey Herrera MD - 01/25/2017 6:16 PM CST DUe for f/u. Please have schedule appt ion next 1 month Requested Prescriptions Signed Prescriptions Disp Refills ??? glipiZIDE (GLUCOTROL) 5 MG tablet 90 tablet 0 Sig: Take 1 tablet by mouth daily before breakfast Reasons: Type 2 Diabetes Authorizing Provider: CHAUNCEY HERRERA COVER MAKER * Telephone Encounter - Juan Avila - 01/25/2017 2:48 PM CST Mk Sanches Allergies Allergen Reactions ??? Ibuprofen Other HE HAS CKD AND SHOULD NOT TAKE NSAID'S Requested Prescriptions Pending Prescriptions Disp Refills ??? glipiZIDE (GLUCOTROL) 5 MG tablet 90 tablet 1 Sig: Take 1 tablet by mouth daily before breakfast Reasons: Type 2 Diabetes Last Refill: 07/23/16 Last OV: 07/23/16 Next OV: none COVER MAKER documented in this encounter Plan of Treatment Upcoming Encounters Date Type Department Care Team (Late st Contact Info) Description 04/07/2024 10:00 AM SLIP COVER MAKER Office Visit [address] [address] Evelin Blanco, JOSETTE-CREW LEAD [phone] [place] [address] 06/06/2024 2:00 PM CDT Office Visit [address] [address] [place] [phone] [place] [phone] documented as of this encounter Goals Goal Patient Goal Type Associated Problems Recent Progress Patient-Stated? Author Blood Pressure < 140/90 Blood Pressure 96/68(2023 2:34 PM SLIP COVER MAKER) Rere Vargas Note: Caring for Your [...] Where can I go for more information? [place] Heart Association National Center: http://www.americanheart.org 1. In the top header, click ? Conditions? . 2. In the top header, click ? high blood pressure.? 3. For a printable blood pressure tracker, scroll toward the bottom of the page to Related Tools, and click ? HBP Trackers.? 5-599-JPI-USA-1 or ( ) National Heart, Lung and Blood [place]: http://www.nhlbi.nih.gov/health/infoctr/index.htm Blood Pressure < 140/90 Blood Pressure 96/68(2023 2:34 PM SLIP COVER MAKER) Rere Vargas Note: Caring for Your [...] Where can I go for more information? [place] Heart Association National Center: http://www.americanheart.org 1. In the top header, click ? Conditions? . 2. In the top header, click ? high blood pressure.? 3. For a printable blood pressure tracker, scroll toward the bottom of the page to Related Tools, and click ? HBP Trackers.? 9-583-LMF-USA-1 or ( ) National Heart, Lung and Blood [place]: http://www.nhlbi.nih.gov/health/infoctr/index.htm Exercise 5X per week (30 min per time) Exercise No Rere Kaufman Note: The [place] College of Sports Medicine recommends all adults [...] how to manage your diabetes: ? ? [place] Diabetes Association: www.diabetes.org 0-756-FVOPWXRY ( ) ? ? [place] Diabetes Association-Support group line: www.professional.diabetes.org ? ? [place] Heart Association: www.heart.org or 6-727-AZX-USA-1 ( ) [employer] MyPlate: www.luxustravel.esmyplate.gov Have labs drawn Lifestyle No Rere Kaufman [...] Diagnoses Diagnosis Type 2 diabetes mellitus with chronic kidney disease, without long-term current use of insulin, unspecified CKD stage (HCC) documented in this encounter Care Teams Aircraft Power Plant Assembler Relationship Specialty [place] [address] [phone] Ophthalmology 04/06/16 documented as of this encounter
--- OUTSIDE RECORDS SUMMARY | 2024-04-03 01:02 | XMS_ITS | Encounter Summary ---
Author Organization [facility] Address [address] [place] [address] Care Team Providers Care Card Reader Name Role Phone Ricco Andrew MD Unavailable [phone] Reason for Visit * Reason Comments Refill Request Encounter Details Date Type Department Care Team (Late st Contact Info) Description 05/02/2017 Refill [facility] - Family Medicine [address] [place] [address] Rosana Solo MD [address] [phone] Refill Request Social History Tobacco [...] * Telephone Encounter - Dylan Moreno - 05/03/2017 10:54 AM CST Mk Sanches Requested Prescriptions Pending Prescriptions Disp Refills ??? lisinopril (PRINIVIL; ZESTRIL) 10 MG tablet [Pharmacy Med Name: LISINOPRIL 10 MG TABLET] 90 tablet 0 Sig: TAKE 1 TAB BY MOUTH ONCE DAILY REASONS: HIGH BLOOD PRESSURE Allergies Allergen Reactions ??? Ibuprofen Other HE HAS CKD AND SHOULD NOT TAKE NSAID'S Last refill- 02/03/2017 Last OV- 03/01/2017 Future OV- 08/31/2017 ATOR MECHANIC APPRENTICE documented in this encounter Plan of Treatment Upcoming Encounters Date Type Department Care Team (Late st Contact Info) Description 04/07/2024 10:00 AM ELEVATOR MECHANIC APPRENTICE Office Visit [facility] [phone] [place] [address] [address] [place] [address] Evelin Blanco, ABNORMAL PSYCHOLOGY TEACHER-SKIP MINER [address] [facility] [address] [place] [address] 06/06/2024 2:00 PM CDT Office Visit [facility] [address] [place] [address] [address] [place] [address] [place] Aden [place] [phone] [place] [address] [phone] documented as of this encounter Goals Goal Patient Goal Type Associated Problems Recent Progress Patient-Stated? Author Blood Pressure < 140/90 Blood Pressure 96/68(2023 2:34 PM ELEVATOR MECHANIC APPRENTICE) Rere Vargas Note: Caring for Your High [...] Related Tools, and click ? HBP Trackers.? 7-217-JIO-USA-1 or ( ) National Heart, Lung and Blood [place]: http://www.nhlbi.nih.gov/health/infoctr/index.htm Blood Pressure < 140/90 Blood Pressure 96/68(2023 2:34 PM ELEVATOR MECHANIC APPRENTICE) Rere Vargas Note: Caring for Your High [...] Related Tools, and click ? HBP Trackers.? 2-555-LBD-USA-1 or ( ) National Heart, Lung and Blood [place]: http://www.nhlbi.nih.gov/health/infoctr/index.htm Exercise 5X per week (30 min per time) Exercise No Rere Kaufman Note: The [place] College of Sports Medicine [...] diabetes: ? ? [place] Diabetes Association: www.diabetes.org 3-450-ZGKMZJAY ( ) ? ? [place] Diabetes Association-Support group line: www.professional.diabetes.org ? ? [place] Heart Association: www.heart.org or 9-743-FLV-[facility]-1 ( ) [employer] MyPlate: www.HigherNextmyplate.gov Have labs drawn Lifestyle Rere Vargas Note: [...] on filedocumented in this encounter Care Teams Card Reader Relationship Specialty [place] [address] [phone] Ophthalmology 04/06/16 documented as of this encounter
--- OUTSIDE RECORDS SUMMARY | 2024-04-03 01:02 | XMS_ITS | Encounter Summary ---
Author Organization [facility] Address [address] [place] [address] Care Team Providers Care Commercial Title Examiner Name Role Phone Ricco Andrew MD Unavailable [phone] Reason for Visit * Reason Comments Refill Request Encounter Details Date Type Department Care Team (Late st Contact Info) Description 05/04/2018 Refill [facility] - Family Medicine [address] [place] [address] Rosana Solo MD [address] [phone] Refill Request Social History Tobacco [...] encounter Miscellaneous Notes * Telephone Encounter - Taryn Russosonja Pal - 05/04/2018 8:22 AM CST Requested Prescriptions Pending Prescriptions Disp Refills ??? memantine (NAMENDA) 5 MG tablet [Pharmacy Med Name: MEMANTINE HCL 5 MG TABLET] 180 tablet 1 Sig: TAKE 1 TABLETS BY MOUTH 2 TIMES DAILY ALLERGIES: Ibuprofen Date of last refill: 11/11/2017 Last visit: 04/07/2018 Upcoming visit: 08/29/2018 NCE MANAGER documented in this encounter Plan of Treatment Upcoming Encounters Date Type Department Care Team (Late st Contact Info) Description 04/07/2024 10:00 AM FINANCE MANAGER Office Visit [facility] [phone] [place] [address] [address] [place] [address] Evelin Blanco, CABIN MAN-APPLICATION DESIGN ENGINEER [address] [address] 06/06/2024 2:00 PM CDT Office Visit [facility] [phone] [place] [address] [address] [place] [address] Chris Aden [place] [phone] [place] [phone] documented as of this encounter Goals Goal Patient Goal Type Associated Problems Recent Progress Patient-Stated? Author Blood Pressure < 140/90 Blood Pressure 96/68(2023 2:34 PM FINANCE MANAGER) Rere Vargas Note: Caring for Your [...] Related Tools, and click ? HBP Trackers.? 8-547-TCB-USA-1 or ( ) National Heart, Lung and Blood [place]: http://www.nhlbi.nih.gov/health/infoctr/index.htm Blood Pressure < 140/90 Blood Pressure 96/68(2023 2:34 PM FINANCE MANAGER) Rere Vargas Note: Caring for Your [...] Related Tools, and click ? HBP Trackers.? 6-854-ASA-USA-1 or ( ) National Heart, Lung and Blood [place]: http://www.nhlbi.nih.gov/health/infoctr/index.htm Exercise 5X per week (30 min [...] diabetes: ? ? [place] Diabetes Association: www.diabetes.org 0-931-CFADEPNH ( ) ? ? [place] Diabetes Association-Support group line: www.professional.diabetes.org ? ? [place] Heart Association: www.heart.org or 6-028-MMY-[facility]-1 ( ) [employer] MyPlate: www.ONEighty C Technologiesmyplate.gov Have labs drawn Lifestyle No Rere [...] on filedocumented in this encounter Care Teams Commercial Title Examiner Relationship Specialty [place] [address] [address] Ophthalmology 04/06/16 documented as of this encounter
--- OUTSIDE RECORDS SUMMARY | 2024-04-03 01:02 | XMS_ITS | Encounter Summary ---
Author Organization [facility] Address [address] [place] [address] Care Team Providers Care Rn Security Name Role Phone Ricco Andrew MD Unavailable [phone] Reason for Visit * Reason Comments Cough Urgent care visit ov er a week ago for dry cough (not much relief with BENZONATATE 100 MG PO CAPS) Encounter Details Date Type Department Care Team (Latest Contact Info) Description 04/07/2018 3:45 PM AVIATION NEUROPSYCHOLOGIST Office Visit [facility] - Family Medicine [address] [place] [address] Chauncey Herrera MD [facility] [address] Acute bronchitis, unspecified organism (Primary Dx); Type 2 diabetes mellitus with diabetic neuropathy, without long-term current use of insulin (HCC); Type 2 diabetes mellitus with stage 3 chronic kidney disease, without long-term current use of insulin (HCC); 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 (HCC); Alzheimer's dementia without behavioral disturbance, unspecified timing of dementia onset Social History Tobacco Use Types Packs/Day Years Used Date Smoking Tobacco: Never Smokeless Tobacco: Current Chew Tobacco Cessation:Ready to Q uit: No; Counseling Given: Yes Alcohol Use Standard Drinks/Week Comments No 0 (1 standard drink = 0.6 oz pur e alcohol) Sex and Gender Information Value Date Recorded Sex Assigned at Male 01/22/2023 1:45 PM CDT Gender Identity Male 01/22/2023 1:45 PM CDT Sexual Orientation Straight 01/22/2023 1: 45 PM CDT documented as of this encounter Last Filed Vital Signs Vital Sign Reading Time Taken Comments Blood Pressure 122/72 04/07/2018 3:32 PM AVIATION NEUROPSYCHOLOGIST Pulse 97 04/07/2018 3:32 PM AVIATION NEUROPSYCHOLOGIST Temperature 37.1 ??C (98.7 ??F) 04/07/2018 3:32 PM CS T Respiratory Rate 18 04/07/2018 3:32 PM AVIATION NEUROPSYCHOLOGIST Oxygen Saturation 98% 04/07/2018 3:32 PM AVIATION NEUROPSYCHOLOGIST Inhaled Oxygen Concentration - - Weight 81.6 kg (180 lb) 04/07/2018 3:32 PM AVIATION NEUROPSYCHOLOGIST Height 165.1 cm (5' 5) 04/07/2018 3:32 PM AVIATION NEUROPSYCHOLOGIST Body Mass Index 29.95 04/07/2018 3:32 PM AVIATION NEUROPSYCHOLOGIST documented in this encounter Patient Instructions * Patient Instructions* Chauncey Herrera MD - 04/07/2018 4:10 PM AVIATION NEUROPSYCHOLOGIST Images from the original note were not included. Get chest X-ray today at radiology Directions to Radiology Registration: Take the elevator down to the lobby. Take a Left out of the elevators and then turn Right at the first hallway. Walk past the double doors and the waterfall on your left to [facility] where you will register for your testing. Acute Bronchitis WHAT YOU NEED TO KNOW: What is acute bronchitis? Acute bronchitis is swelling and irritation in the air passages of your lungs. This irritation may cause you to cough or have other breathing problems. Acute bronchitis often starts because of another illness, such as a cold or the flu. The illness spreads from your nose and throat to your windpipe and airways. Bronchitis is often called a chest cold. Acute bronchitis lasts about 3 to 6 weeks and is usually not a serious illness. What causes acute bronchitis? ?? Infection caused by a virus, bacteria, or a fungus ?? Polluted air caused by chemical fumes, dust, smoke, allergens, or pollution What increases my risk for acute bronchitis? ?? Age, usually older adults ?? Smoking cigarettes or being around cigarette smoke ?? Chronic lung diseases or chronic sinus infections ?? Weakened immune system ?? Gastroesophageal reflux disease ?? Allergies and environmental changes What are the signs and symptoms of acute bronchitis? ?? A cough with sputum that may be clear, yellow, or green ?? Feeling more tired than usual, and body aches ?? A fever and chills ?? Wheezing when you breathe ?? A tight chest or pain when you breathe or cough How is acute bronchitis diagnosed? Your healthcare provider may diagnose bronchitis by your symptoms. If he is not sure, you may need the following: ?? Blood tests will be done to see if your symptoms are caused by an infection. ?? X-ray pictures of your lungs and heart may show signs of infection, such as pneumonia. Chest x-rays may also show fluid around your heart and lungs. How is acute bronchitis treated? Your healthcare provider will treat any condition that has caused your acute bronchitis. He may also give you any of the following: ?? Ibuprofen or acetaminophen are medicines that help lower your fever. They are available without a doctor's order. Ask your healthcare provider which medicine is right for you. Ask how much to takeand how often to take it. Follow directions. These medicines can cause stomach bleeding if not taken correctly. Ibuprofen can cause kidney damage. Do not take ibuprofen if you have kidney disease, anulcer, or allergies to aspirin. Acetaminophen can cause liver damage. Do not take more than 4,000 milligrams in 24 hours. ?? Decongestants help loosen mucus in your lungs and make it easier to cough up. This can help you breathe easier. ?? Cough suppressants decrease your urge to cough. If your cough produces mucus, do not take a cough suppressant unless your healthcare provider tells you to. Your healthcare provider may suggest that you take a cough suppressant at night so you can rest. ?? Inhalers may be given. Your healthcare provider may give you one or more inhalers to help you breathe easier and cough less. An inhaler gives your medicine to open your airways. Ask your healthcare provider to show you how to use your inhaler correctly. How can I care for myself when I have acute bronchitis? ?? Get more rest. Rest helps your body to heal. Slowly start to do more each day. Rest when you feel it is needed. ?? Avoid irritants in the air. Avoid chemicals, fumes, and dust. Wear a face mask if you must work around dust or fumes. Stay inside on days when air pollution levels are high. If you have allergies,stay inside when pollen counts are high. Do not use aerosol products, such as spray-on deodorant, bug spray, and hair spray. ?? Do not smoke or be around others who smoke. Nicotine and other chemicals in cigarettes and cigars damages the cilia that move mucus out of your lungs. Ask your healthcare provider for information if you currently smoke and need help to quit. E-cigarettes or smokeless tobacco still contain nicotine. Talk to your healthcare provider before you use these products. ?? Drink liquids as directed. Liquids help keep your air passages moist and help you cough up mucus. You may need to drink more liquids when you have acute bronchitis. Ask how much liquid to drink each day and which liquids are best for you. ?? Use a humidifier or vaporizer. Use a cool mist humidifier or a vaporizer to increase air moisture in your home. This may make it easier for you to breathe and help decrease your cough. How can I decrease my risk for acute bronchitis? ?? Get the vaccinations you need. Ask your healthcare provider if you should get vaccinated againstthe flu or pneumonia. ?? Prevent the spread of germs. You can decrease your risk of acute bronchitis and other illnesses by doing the following: ?? Wash your hands often with soap and water. Carry germ-killing hand lotion or gel with you. You can use the lotion or gel to clean your hands when soap and water are not available. ?? Do not touch your eyes, nose, or mouth unless you have washed your hands first. ?? Always cover your mouth when you cough to prevent the spread of germs. It is best to cough into a tissue or your shirt sleeve instead of into your hand. Ask those around you cover their mouths when they cough. ?? Try to avoid people who have a cold or the flu. If you are sick, stay away from others as much as possible. When should I seek immediate care? ?? You cough up blood. ?? Your lips or fingernails turn blue. ?? You feel like you are not getting enough air when you breathe. When should I contact my healthcare provider? ?? You have a fever. ?? Your breathing problems do not go away or get worse. ?? Your cough does not get better within 4 weeks. ?? You have questions or concerns about your condition or care. CARE AGREEMENT: You have the right to help plan your care. Learn about your health condition and how it may be treated. Discuss treatment options with your healthcare providers to decide what care you want to receive. You always have the right to refuse treatment. The above information is an sld educational aide only. It is not intended as medical advice for individual conditions or treatments. Talk to your doctor, nurse or pharmacist before following any medical regimen to see if it is safe and effective for you. ?? Copyright [employer] 2017 Information is for End User's use only and may not be sold, redistributed or otherwise used for commercial purposes. All illustrations and images included in CareNotes?? are the copyrighted property of [employer] or [employer] TION NEUROPSYCHOLOGIST documented in this encounter Progress Notes * Chauncey Herrera MD - 04/07/2018 4:01 PM CST SUBJECTIVE: Mk Sanches is a 82 y.o. male here for cough and congestion for about 1.5-2 weeks. Started Wednesday03/27/17. Cough mostly dry, but occasionally productive. No wheezing. No shortness of breath. No runny nose or congestion. No sorethroat. No ear pain. No fevers or chills. No abdominal pain. No nausea, vomiting, diarrhea. No new rash. Doing ok with his skin picking Went to Urgent care. Told possibly viral and given tessalon. Using PRN tessalon. Still coughing, but not severe. No real shortness of breath or wheezing. No second worsening. Denies chest pain DM - on meds. Taking as ordered. Denies uncontrolled BS with illness. Alzheimer is stable. No delirium Denies depression ROS: Gen: Denies fevers, chills CV: Denies chest pain, palpitations Resp: Denies shortness of breath, dyspnea on exertion GI: Denies abdominal pain, nausea, vomiting, diarrhea Past Medical History: Diagnosis Date ??? Chronic renal failure ??? Dementia ??? Dermatitis ??? DM (diabetes mellitus) ??? HTN (hypertension) ??? Hx of rheumatic fever ??? Hypothyroid ??? Seasonal allergies ??? Trigger finger Past Surgical History: Procedure Laterality Date ??? NEGATIVE SURGICAL HISTORY Current Outpatient Prescriptions on File Prior to Visit Medication Sig Dispense Refill ??? DIONICIO ASPIRIN REGIMEN PO ??? glipiZIDE (GLUCOTROL) 5 MG tablet TAKE 1 TABLET BY MOUTH DAILY BEFORE BREAKFAST REASONS: TYPE 2DIABETES 90 tablet 1 ??? ketoconazole (NIZORAL) 2 % shampoo Apply to affected area Three times a week Reasons: Dandruff 120 mL 1 ??? levothyroxine (SYNTHROID) 75 MCG tablet TAKE 1 TAB BY MOUTH DAILY BEFORE BREAKFAST REASONS: UNDERACTIVE THYROID 90 tablet 1 ??? lisinopril (PRINIVIL; ZESTRIL) 2.5 MG tablet TAKE 1 TAB BY MOUTH ONCE DAILY Reasons: diabetic kidney protection 90 tablet 1 ??? loratadine (CLARITIN) 10 MG tablet TAKE 1 TABLET BY MOUTH EVERY DAY 90 tablet 3 ??? memantine (NAMENDA) 5 MG tablet TAKE 1 TABLETS BY MOUTH 2 TIMES DAILY 180 tablet 1 No current facility-administered medications on file prior to visit. Family History Problem Relation Age of Onset ??? Family history unknown: Yes Social History Substance Use Topics ??? Smoking status: Never Smoker ??? Smokeless tobacco: Current User Types: Chew ??? Alcohol use No Allergies Allergen Reactions ??? Ibuprofen Other HE HAS CKD AND SHOULD NOT TAKE NSAID'S OBJECTIVE: Vitals: 04/07/18 1532 BP: 122/72 Pulse: 97 Resp: 18 Temp: 98.7 ??F (37.1 ??C) SpO2: 98% Weight: 81.6 kg (180 lb) Height: 1.651 m (5' 5) Body mass index is 29.95 kg/(m^2). Appears: alert, well appearing, and in no distress Ears: bilateral TM's and external ear canals normal Nasal exam: clear rhinorrhea and mucosal erythema, no significant swelling Sinuses - nontender Oropharynx: mucous membranes moist, pharynx normal without lesions Neck: supple, no significant adenopathy Lungs: clear to auscultation, no wheezes, rales, or rhonchi, no tachypnea, retractions, or cyanosis. Decreased aeration to bases. CV exam: regular rate and rhythm, normal S1 and S2, no murmurs CXR - no Pneumonia or infiltrate ASSESSMENT & PLAN: Acute bronchitis, unspecified organism - Plan: XR CHEST 2VW, RISK ADJUSTED VISIT Type 2 diabetes mellitus with diabetic neuropathy, without long-term current use of insulin - controlled. cont rx. 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 continue supportive care. Monitor. antibiotics not indicated. Advised to call back directly if there are further questions, or if these symptoms fail to improve as anticipated or worsen in the next 3-5 days An After Visit Summary was printed and given to the patient. Follow up PRN . Chauncey Herrera MD TION NEUROPSYCHOLOGIST documented in this encounter Miscellaneous Notes * Addendum Note - Chauncey Herrera MD - 04/07/2018 9:52 PM CSTAddended by: CHAUNCEY HERRERA on: 04/07/2018 09:52 PM Modules accepted: Orders TION NEUROPSYCHOLOGIST documented in this encounter Plan of Treatment Upcoming Encounters Date Type Department Care Team (Late st Contact Info) Description 04/07/2024 10:00 AM AVIATION NEUROPSYCHOLOGIST Office Visit [address] [address] Evelin Blanco, JOSETTE-DENIS [id number] [place] [id number] 06/06/2024 2:00 PM CDT Office Visit [address] [address] Chris Aden MD [address] [place] [phone] documented as of this encounter Goals Goal Patient Goal Type Associated Problems Recent Progress Patient-Stated? Author Blood Pressure < 140/90 Blood Pressure 96/68(2023 2:34 PM AVIATION NEUROPSYCHOLOGIST) Rere Vargas Note: Caring for Your High [...] Where can I go for more information? [employer] Heart Association National Center: http://www.americanheart.org 1. In the top header, click ? Conditions? . 2. In the top header, click ? high blood pressure.? 3. For a printable blood pressure tracker, scroll toward the bottom of the page to Related Tools, and click ? HBP Trackers.? 9-103-BIJ-USA-1 or ( ) National Heart, Lung and Blood [place]: http://www.nhlbi.nih.gov/health/infoctr/index.htm Blood Pressure < 140/90 Blood Pressure 96/68(2023 2:34 PM AVIATION NEUROPSYCHOLOGIST) Rere Vargas Note: Caring for Your High [...] Where can I go for more information? [employer] Heart Association National Center: http://www.americanheart.org 1. In the top header, click ? Conditions? . 2. In the top header, click ? high blood pressure.? 3. For a printable blood pressure tracker, scroll toward the bottom of the page to Related Tools, and click ? HBP Trackers.? 0-048-FYH-USA-1 or ( ) National Heart, Lung and Blood [place]: http://www.nhlbi.nih.gov/health/infoctr/index.htm Exercise 5X per week (30 min per time) Exercise Rere Vargas Note: The [employer] recommends all adults [...] how to manage your diabetes: ? ? [employer] Diabetes Association: www.diabetes.org 4-211-BEVTLIQV ( ) ? ? [employer] Diabetes Association-Support group line: www.professional.diabetes.org ? ? [employer] Heart Association: www.heart.org or 2-119-QPO-USA-1 ( ) [employer] MyPlate: www.IT MOVES ITmyplate.gov Have labs drawn Lifestyle Rere Vargas Note: [...] as of this encounter Results * XR CHEST 2VW (04/07/2018 4:35 PM AVIATION NEUROPSYCHOLOGIST) Anatomical Region Laterality Modality Chest Radiographic Apolonia ging 04/07/2018 5:12 PM AVIATION NEUROPSYCHOLOGIST Narrative 04/07/2018 5:13 PM AVIATION NEUROPSYCHOLOGIST Chest Two Views History: Acute bronchitis, unspecified [...] Whatley MD on 04/07/2018 at 5:13 PM Chauncey Herrera MD DIAGNOSTIC IMAGING O RDERABLES documented in this encounter Visit Diagnoses Diagnosis Acute bronchitis, unspecified organism- Primary Type 2 diabetes mellitus with diabetic neuropathy, without long-term current use of insulin (HCC) Type 2 diabetes mellitus with stage 3 chronic kidney disease, without long-term current use of insulin (HCC) 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
--- OUTSIDE RECORDS SUMMARY | 2024-04-03 01:02 | XMS_ITS | Encounter Summary ---
Author Organization [facility] Address [address] [place] [address] Care Team Providers Care Foster Care Social Worker Name Role Phone Ricco Andrew MD Unavailable [phone] Reason for Visit * Reason Onset Date Comments Erroneous encounter-disregard 04/27/2017 Encounter Details Date Type Department Care Team (Late Contact Info) Description 04/27/2017 Telephone [facility] [id number] [place] [address] [address] [place] [address] Rosana Solo MD [facility] [address] [phone] Erroneous encounter-disregard Social History Tobacco Use Types Packs/Day Years [...] (Late Contact Info) Description 04/07/2024 10:00 AM GENERAL MAINTENANCE MECHANIC Office Visit [facility] [address] [facility] [address] [place] [address] Evelin Blanco, JOSETTE-PLATFORM CONSULTANT [address] [facility] [address] [place] [address] 06/06/2024 2:00 PM CDT Office Visit [facility] [address] [facility] [address] [place], [place] [id number] [place] [address] [facility] [address] [place] [address] documented as of this encounter Goals Goal Patient Goal Type Associated Problems Recent Progress Patient-Stated? Author Blood Pressure < 140/90 Blood Pressure 96/68(2023 2:34 PM GENERAL MAINTENANCE MECHANIC) Rere Vargas Note: Caring for Your High [...] Where can I go for more information? [employer] Heart Association National Center: http://www.americanheart.org 1. In the top header, click ? Conditions? . 2. In the top header, click ? high blood pressure.? 3. For a printable blood pressure tracker, scroll toward the bottom of the page to Related Tools, and click ? HBP Trackers.? 4-071-OWU-USA- or ( ) National Heart, Lung and Blood [place]: http://www.nhlbi.nih.gov/health/infoctr/index.htm Blood Pressure < 140/90 Blood Pressure 96/68(2023 2:34 PM GENERAL MAINTENANCE MECHANIC) Rere Vargas Note: Caring for Your High [...] Where can I go for more information? [employer] Heart Association National Center: http://www.americanheart.org 1. In the top header, click ? Conditions? . 2. In the top header, click ? high blood pressure.? 3. For a printable blood pressure tracker, scroll toward the bottom of the page to Related Tools, and click ? HBP Trackers.? 5-810-FNC-USA- or ( ) National Heart, Lung and Blood [place]: http://www.nhlbi.nih.gov/health/infoctr/index.htm Exercise 5X per week (30 min per time) Exercise Rere Vargas Note: The [employer] recommends all adults [...] how to manage your diabetes: ? ? [place] Diabetes Association: www.diabetes.org 1-941-QXPPRNCA ( ) ? ? [place] Diabetes Association-Support group line: www.professional.diabetes.org ? ? [employer] Heart Association: www.heart.org or 6-870-DLB-USA-1 ( ) [employer] MyPlate: www.VytronUSmyplate.gov Have labs drawn Lifestyle Rere Vargas Note: [...] on filedocumented in this encounter Care Teams Foster Care Social Worker Relationship Specialty [place] [address] [address] Ophthalmology 04/06/16 documented as of this encounter
--- OUTSIDE RECORDS SUMMARY | 2024-04-03 01:02 | XMS_ITS | Encounter Summary ---
Author Organization [facility] Address [address] [facility] [place] [address] Care Team Providers Care Medical Research Associate Name Role Phone Ricco Andrew MD Unavailable [phone] Reason for Visit * Reason Onset Date Comments MEDICATION REFILL 05/03/2018 Encounter Details Date Type Department Care Team (Late st Contact Info) Description 05/03/2018 Refill [facility] Medical [facility] - Family Medicine [address] [place], [place] [id number] Rosana Solo MD [facility] [phone] MEDICATION REFILL Social History Tobacco Use [...] encounter Miscellaneous Notes * Telephone Encounter - Liyah Carbajal - 05/04/2018 12:03 PM CST lmor to inform that we had sent rx to the pharmacy. PMENT TESTER * Telephone Encounter - Liyah Carbajal - 05/03/2018 4:04 PM CST Pt daughter called the office today needing a refill for one touch mini test strips. PMENT TESTER documented in this encounter Plan of Treatment Upcoming Encounters Date Type Department Care Team (Late st Contact Info) Description 04/07/2024 10:00 AM EQUIPMENT TESTER Office Visit [facility] [id number] [place] [address] [address] [place] [address] Evelin Blanco, POLEYARD SUPERVISOR-EQUIPMENT PROCESSOR [address] [facility] [address] [place] [address] 06/06/2024 2:00 PM CDT Office Visit [facility] [id number] [place] [address] [address] [place] [address] Chris Aden [place] [id number] [place] [address] [address] [place] [address] documented as of this encounter Goals Goal Patient Goal Type Associated Problems Recent Progress Patient-Stated? Author Blood Pressure < 140/90 Blood Pressure 96/68(2023 2:34 PM EQUIPMENT TESTER) Rere Vargas Note: Caring for Your [...] Where can I go for more information? [employer] Heart Association National Center: http://www.americanheart.org 1. In the top header, click ? Conditions? . 2. In the top header, click ? high blood pressure.? 3. For a printable blood pressure tracker, scroll toward the bottom of the page to Related Tools, and click ? HBP Trackers.? 3-909-CMG-USA-1 or ( ) National Heart, Lung and Blood [place]: http://www.nhlbi.nih.gov/health/infoctr/index.htm Blood Pressure < 140/90 Blood Pressure 96/68(2023 2:34 PM EQUIPMENT TESTER) Rere Vargas Note: Caring for Your [...] Where can I go for more information? [employer] Heart Association National Center: http://www.americanheart.org 1. In the top header, click ? Conditions? . 2. In the top header, click ? high blood pressure.? 3. For a printable blood pressure tracker, scroll toward the bottom of the page to Related Tools, and click ? HBP Trackers.? 8-508-JEF-USA-1 or ( ) National Heart, Lung and Blood [place]: http://www.nhlbi.nih.gov/health/infoctr/index.htm Exercise 5X per week (30 min per time) Exercise No Rere Kaufman Note: The [employer] recommends all adults [...] how to manage your diabetes: ? ? [employer] Diabetes Association: www.diabetes.org 5-442-ZXOAVLKF ( ) ? ? [place] Diabetes Association-Support group line: www.professional.diabetes.org ? ? [place] Heart Association: www.heart.org or 0-223-KGE-USA-1 ( ) [employer] MyPlate: www.Buzmyplate.gov Have labs drawn Lifestyle Rere Vargas Note: [...] stage 3 chronic kidney disease, unspecified whether group home insulin use (HCC)- Primary Type 2 diabetes mellitus with diabetic neuropathy, unspecified whether group home insulin use (HCC) documented in this encounter Care Teams Medical Research Associate Relationship Specialty [place] [address] [phone] Ophthalmology 04/06/16 documented as of this encounter
--- OUTSIDE RECORDS SUMMARY | 2024-04-03 01:03 | XMS_ITS ---
Author Organization [facility] Address [address] [facility] [place] [address] Care Team Providers Care Male Infertility Specialist Name Role Phone Ricco Andrew MD Unavailable [phone] Fawn Ramon DPM Unavailable [phone] Chris Aden MD Primary Care Provider [phone] Chris Aden MD Unavailable QMM & AWV - [facility] Status:Closed (Closed) Start date:12/13/2023 Enrollment date:12/13/2023 Enrollment reason:Identified using claims or encounter data End date:12/13/2023 Close reason:Follow by dynamic observation Continued Care and Services Coordination
--- OUTSIDE RECORDS SUMMARY | 2024-04-03 01:03 | XMS_ITS | Encounter Summary ---
Author Organization [facility] Address [address] [facility] [place] [address] Care Team Providers Care Mechanical Laboratory Technician Name Role Phone Unavailable Primary Care Provider Unavailabl e Reason for Visit * Reason Onset Date Comments MEDICATION REFILL 02/24/2016 Encounter Details Date Type Department Care Team (Late st Contact Info) Description 02/24/2016 Refill [facility] - Family Medicine [address] [place], [place] [id number] Chauncey Herrera MD [address] [place] [address] [address] [place] [address] MEDICATION REFILL Social History Tobacco [...] Telephone Encounter - Chauncey Herrera MD - 02/24/2016 10:58 AM CST Was just refilled 2 weeks ago, but will approve again Requested Prescriptions Signed Prescriptions Disp Refills ??? 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 Ibuprofen Other HE HAS CKD AND SHOULD NOT TAKE NSAID'S Requested Prescriptions Pending Prescriptions Disp Refills ??? 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 Last Refill: 02/05/2016 Last OV: 02/05/2016 Next OV:05/07/16 T INSPECTOR documented in this encounter Plan of Treatment Upcoming Encounters Date Type Department Care Team (Late st Contact Info) Description 04/07/2024 10:00 AM FRUIT INSPECTOR Office Visit [address] [address] Evelin Blanco, MANAGER DATA CENTER-GEAR CHANGER [id number] [place] [address] 06/06/2024 2:00 PM CDT Office Visit [address] [address] Chris Aden MD [id number] [place] [phone] documented as of this encounter Goals Goal Patient Goal Type Associated Problems Recent Progress Patient-Stated? Author Blood Pressure < 140/90 Blood Pressure 96/68(2023 2:34 PM FRUIT INSPECTOR) Rere Vargas Note: Caring for Your [...] Where can I go for more information? [place] [employer] National Center: http://www.americanheart.org 1. In the top header, click ? Conditions? . 2. In the top header, click ? high blood pressure.? 3. For a printable blood pressure tracker, scroll toward the bottom of the page to Related Tools, and click ? HBP Trackers.? 0-875-PAJ-USA-1 or ( ) National Heart, Lung and Blood [place]: http://www.nhlbi.nih.gov/health/infoctr/index.htm Exercise 5X per week (30 min per time) Exercise Rere Vargas Note: The [place] [employer] recommends all adults [...] how to manage your diabetes: ? ? [place] Diabetes Association: www.diabetes.org 3-564-PZRILGCT ( ) ? ? [place] Diabetes Association-Support group line: www.professional.diabetes.org ? ? [place] Heart Association: www.heart.org or 4-628-WFZ-USA-1 ( ) USDA MyPlate: www.choosemyplate.gov documented as of this encounter Visit Diagnoses Diagnosis Alzheimer's dementia without behavioral disturbance, unspecified timing of dementia onset (HCC) documented in this encounter
--- OUTSIDE RECORDS SUMMARY | 2024-04-03 01:03 | XMS_ITS | Encounter Summary ---
Author Organization [facility] Address [address] [facility] [place] [address] Care Team Providers Care Mixer Diamond Powder Name Role Phone Ricco Andrew MD Unavailable [phone] Reason for Visit * Reason Onset Date Comments Referral 04/10/2016 Encounter Details Date Type Department Care Team (Late st Contact Info) Description 04/10/2016 Telephone [facility] - Family Medicine [address] [place], [place] [id number] Rosana Arzate MD [facility] [address] [phone] Referral Social History Tobacco [...] encounter Miscellaneous Notes * Telephone Encounter - Akosua Tapia - 04/17/2016 3:19 PM CST duplicate OLEUM REFINERY WORKER * Telephone Encounter - Yaima Oneill - 04/16/2016 9:52 AM PETROLEUM REFINERY WORKER Suzanne with [facility] calling for update on referral. jarad appointment is for 04/20/16. OLEUM REFINERY WORKER * Telephone Encounter - Smooth Aviles - 04/10/2016 9:55 AM CST Person Requesting Referral: [facility] PCP: Dr. Arzate Specialist: Dr. 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 Appointment Date: 04-20-16 at 9:15am Insurance: [facility] [employer] Tax ID # [id number] OLEUM REFINERY WORKER documented in this encounter Plan of Treatment Upcoming Encounters Date Type Department Care Team (Late st Contact Info) Description 04/07/2024 10:00 AM PETROLEUM REFINERY WORKER Office Visit [facility] [id number] [place] [address] Evelin Blanco, STREET SUPERINTENDENT-CLOTH PIECER [address] [address] 06/06/2024 2:00 PM CDT Office Visit [facility] [id number] [place] [address] Chris Aden [place] [id number] [place] [address] DR TUTTLE [address] [place] [phone] documented as of this encounter Goals Goal Patient Goal Type Associated Problems Recent Progress Patient-Stated? Author Blood Pressure < 140/90 Blood Pressure 96/68(2023 2:34 PM PETROLEUM REFINERY WORKER) Rere Vargas Note: Caring for Your [...] Related Tools, and click ? HBP Trackers.? 8-728-ART-USA-1 or ( ) National Heart, Lung and Blood [place]: http://www.nhlbi.nih.gov/health/infoctr/index.htm Exercise 5X per week (30 min per time) Exercise Rere Vargas Note: The [place] [employer] [...] diabetes: ? ? [place] Diabetes Association: www.diabetes.org 4-263-CDLKJRHW ( ) ? ? [place] Diabetes Association-Support group line: www.professional.diabetes.org ? ? [place] Heart Association: www.heart.org or 1-308-UWK-USA-1 ( ) [place] MyPlate: www.choosemyplate.gov documented as of this encounter Visit Diagnoses Not on filedocumented in this encounter Care Teams Mixer Diamond Powder Relationship Specialty [place] [address] [phone] Ophthalmology 04/06/16 documented as of this encounter
--- OUTSIDE RECORDS SUMMARY | 2024-04-03 01:03 | XMS_ITS ---
Author Organization [facility] Address [address] [place] [address] Care Team Providers Care Tea Plantation Worker Name Role Phone Ricco Andrew MD Unavailable [phone] Fawn Ramon DPM Unavailable [phone] Chris Aden MD Primary Care Provider [phone] Chris Aden MD Unavailable QMM & AWV - [facility] Status:Closed (Closed) Start date:12/16/2022 Enrollment date:12/16/2022 Enrollment reason:Identified using claims or encounter data End date:12/16/2022 Close reason:Follow by dynamic observation Continued Care and Services Coordination
--- OUTSIDE RECORDS SUMMARY | 2024-04-03 01:03 | XMS_ITS ---
Author Organization [facility] Address [address] [facility] [place] [address] Care Team Providers Care Greeter Guest Services Name Role Phone Ricco Andrew MD Unavailable [phone] Fawn Ramon DPM Unavailable [phone] Chris Aden MD Primary Care Provider [phone] Chris Aden MD Unavailable Acute DC - [facility] Status:Closed (Closed) Start date:02/28/2024 Enrollment date:02/28/2024 Enrollment reason:Identified using hospital discharge data End date:02/28/2024 Close reason:Follow by dynamic observation Continued Care and Services Coordination
--- OUTSIDE RECORDS SUMMARY | 2024-04-03 01:03 | XMS_ITS | Encounter Summary ---
Author Organization [facility] Address [address] [address] Care Team Providers Care Contract Forester Name Role Phone Ricco Andrew MD Unavailable Reason for Referral * Procedure (Routine) - Closed Specialty Diagnoses / Procedures Referred By Contac t Referred To Contact Cardiology Diagnoses Pre-operative cardiovascular examination Type 2 diabetes mellitus with stage 3 chronic kidney disease, without long-term current use of insulin (HCC) Type 2 diabetes mellitus with diabetic neuropathy, without long-term current use of insulin (HCC) Benign hypertension with chronic kidney disease Procedures EKG 12-LEAD Rosana Solo MD [address] [place] [address] Referral ID Status Reason Start Date Expiration Date Visits Re quested Visits Authorized [id number] Closed 04/06/2016 10/03/2016 1 1 EN WORKER Reason for Visit * Reason Comments Pre-op Clearance retina surgery 04/20 Encounter Details Date Type Department Care Team (Latest Contact Info) Description 04/06/2016 2:20 PM GARDEN WORKER Office Visit [facility] - Family Medicine [address] [place] [id number] Rosana Solo MD [address] [place] [address] Pre-operative cardiovascular examination (Primary Dx); 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 (HCC); Type 2 diabetes mellitus with stage [...] Sign Reading Time Taken Comments Blood Pressure 106/72 04/06/2016 2:15 PM GARDEN WORKER Pulse 76 04/06/2016 2:15 PM GARDEN WORKER Temperature 36.4 ??C (97.6 ??F) 04/06/2016 2:15 PM CS T Respiratory Rate 16 04/06/2016 2:15 PM GARDEN WORKER Oxygen Saturation - - Inhaled Oxygen Concentration - - Weight 75.3 kg (166 lb) 04/06/2016 2:15 PM GARDEN WORKER Height 165.1 cm (5' 5) 04/06/2016 2:15 PM GARDEN WORKER Body Mass Index 27.62 04/06/2016 2:15 PM GARDEN WORKER documented in this encounter Patient Instructions * Patient Instructions* Rosana Solo MD - 04/06/2016 2:55 PM GARDEN WORKER [facility] Your Diabetes ?? Get labs done today at [facility] Directions to [facility]: [facility] is located on the 1st floor of this building. Please take the elevators down to the lobby.As soon as you exit the elevator, take an immediate left out of the elevators and then go left downthe first hallway. [facility] is located in [address] on the left side just past the restrooms. They orders have been transmitted electronically, so the should have them. ?? Follow a diabetic diet with healthy meals that are low salt, low fat, high fiber. For more information on a diabetic diet, please go to the [place] [employer] website at www.diabetes.org and select the Food&FItness tab ?? Home blood sugar monitoring and goals ?? 70-120 fasting ?? Less than 180 two hours [...] minutes if trying to lose weight) The [place] [employer] recommends [...] a healthy weight. Body mass index is 27.62 kg/(m^2). If your BMI (a ratio of your weight to your height) is over 25, it is recommended that you try to exercise and eat healthier in an effort to lose a few pounds Health Maintenance Due Topic Date Due ??? DTAP/TDAP/TD VACCINES (1 - Tdap) 1954 ??? PNEUMOCOCCAL VACCINE (2 of 2 - PCV13) 07/25/2013 Goals ? ? Blood Pressure < 140/90 [...] to Related Tools, and click ???HBP Trackers.?? 0-441-CAM-USA-1 or ( ) National Heart, Lung and Blood [place]: http://www.nhlbi.nih.gov/health/infoctr/index.htm ??? Exercise 5X per week (30 min per time) The [place] [employer] recommends [...] and how to manage your diabetes: ??? [place] Diabetes Association: www.diabetes.org 8-619-AIBBRRVR ( ) ??? [place] Diabetes Association-Support group line: www.professional.diabetes.org ??? [place] Heart Association: www.heart.org or 4-932-SVM-USA-1 ( ) Addy MyPlate: www.choosemyplate.gov ?? Continue current medications: Yes ?? Please call office during routine office hours if any questions or concerns. ?? After hours you may contact us through the exchange at for more significant issues. ?? See me in 3 months EN WORKER documented in this encounter Progress Notes * Rere Kaufman - 04/07/2016 3:07 PM CST Pt notified and clearance faxed EN WORKER * Rosana Solo MD - 04/07/2016 2:32 PM CST Lab results ok. Can proceed with upcoming eye surgery. Clearance granted. Please fax forms and labsto Dr. Andrew's office His creatinine is slightly increased since last check and will need to be monitored. If continues to decline, we will need to have him see a kidney specialist. Electrolytes and liver enzymes normal TSH normal. Should remain on same dose of levothyroxine PT/INR normal indicating no increased bleeding risks with surgery Blood counts normal EN WORKER * Rosana Solo MD - 04/06/2016 2:38 PM CST SUBJECTIVE: Mk Sanches is a 80 y.o. presenting for pre-op evaluation/clearance Surgeon: Dr. 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 Tolerating meds. Takes his meds as ordered. Accompanied by son today. Denieschest pain, palpitations, near syncope. Able to ambulate the from parking lot into office with walker without chest pain. DM - on glipizide. Tolerates Rx. Blood sugars have been good. HTN - takes lisinopril. No dry cough. No chest pain Hypothyroid - taking rx. Feels well Currently complains of angina or exertional chest pain: no Can pt exercise at >4 METs (climb 1 flight of stairs, walk up a hill, walk one block at brisk pace): no Hx of heart attack/CAD, known CHF, etc: no Hx of asthma or COPD: no Hx of easy bruising, excessive bleeding after surgery, or prolonged bleeding after tooth extraction: no Family Hx of heritable coagulopathies: no Patient Active Problem List Diagnosis ??? CKD stage 3 secondary to diabetes ??? Type 2 diabetes mellitus with chronic kidney disease, without long-term current use of insulin ??? Hypothyroidism, adult ??? Benign hypertension with chronic kidney disease ??? Alzheimer's dementia without behavioral disturbance ??? Seasonal allergic rhinitis ??? Type 2 diabetes mellitus with diabetic neuropathy ??? 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 levothyroxine (TIROSINT) 75 MCG capsule Take 1 Cap by mouth daily before breakfast Reasons: Underactive Thyroid 90 Cap 0 ??? glipiZIDE (GLUCOTROL) 5 MG tablet Take 1 Tab by mouth daily before breakfast Reasons: Type 2 Diabetes 90 Tab 1 ??? lisinopril (PRINIVIL; ZESTRIL) 10 MG tablet Take 1 Tab by mouth once daily Reasons: High Blood Pressure 90 Tab 1 ??? Loratadine 10 MG Take 10 mg by mouth once daily Reasons: allergies 90 Cap 1 Allergies Allergen Reactions ??? Ibuprofen Other HE HAS CKD AND SHOULD NOT TAKE NSAID'S Past Medical History Diagnosis Date ??? Chronic renal failure ??? Dementia ??? Dermatitis ??? DM (diabetes mellitus) ??? HTN (hypertension) ??? Hx of rheumatic fever ??? Hypothyroid ??? Seasonal allergies ??? Trigger finger Past Surgical History Procedure Laterality Date ??? Negative surgical history Family History Problem Relation Age of Onset ??? Family history unknown: Yes History Social History ??? Marital status: Spouse name: N/A ??? Number of children: N/A ??? Years of education: N/A Occupational History ??? Not on file. Social History Main Topics ??? Smoking status: Never Smoker ??? Smokeless tobacco: Current User Types: Chew ??? Alcohol use: No ??? Drug use: No ??? Sexual activity: Not Currently Other Topics Concern ??? Not on file Social History Narrative REVIEW OF SYSTEMS Constitutional: Denies fever, chills Eyes: pt reportedly unaware of decreased vision in right eye Ears, nose, mouth, and throat: Denies nasal discharge. Denies sorethroat Respiratory: Denies cough, dyspnea, wheezing Cardiovascular: Denies chest pain, palpitations, peripheral edema Gastrointestinal: Denies abdominal pain, bloody stools or melena Skin: Still picking at spots on scalp. Has yet to see dermatology Hematologic/lymphatic: Denies history of anemia. Denies abnormal bleeding or bruising. Musculoskeletal: Denies Myalgias, weakness. Neurological: Deniessyncope, dizziness. Denies TIA or stroke-like symptoms Behavioral/Psych: No depression. Endocrine: Denies fatigue or weight change. Screenings Future Falls: Have you fallen in the last year?: No Depression: PHQ-2:TOTAL POINT SCORE: 0 PHQ-9: OBJECTIVE: Vitals: 04/06/16 1415 BP: 106/72 Pulse: 76 Resp: 16 Temp: 97.6 ??F Weight: 75.3 kg (166 lb) General: alert, well appearing, and in no acute distress HEENT: Normocephalic atraumatic. PERRLA, EOMI, no conjunctivitis. Bilateral TM's and external ear canals normal. Oral mucous membranes moist, pharynx normal without lesions, no tonsillar erythema/edema/exudates. No cervical adenopathy. Thyroid [...] lower extremities. Grossly non-focal Extremities: No cyanosis, clubbing, or edema. Peripheral pulses 2+ and symmetric - radial and pedal Psych: Normal mood and affect today. Skin: warm, dry, without significant rash. Has 2 superficial sores on scalp in bald spot. No signs of infection Recent Labs Component Name 02/06/16 0844 SODIUM 142 POTASSIUM 5.2* CHLORIDE 106 CO2 30 BUN 31* CREATININE 1.60* GLUCOSE 129* CALCIUM 9.3 ALBUMIN 3.8 ALKPHOS 60 ALT 14 AST 8 TBIL 0.3 TPROT 7.0 EGFR 42 Recent Labs Component Name 02/06/16 0844 CHOL 148 TRIG 111 HDL 48 LDLCALC 78 Recent Labs Component Name 02/06/16 0844 HGBA1C 6.4* Recent Labs Component Name 02/06/16 0844 TSH 4.04* High risk surgeries (>5%) - aortic or major vascular surgery Intermediate risk surgeries (1-5%) - Abdominal or thoracic surgery, Head/neck surgery, carotid endarterectomy, orthopedic surgery, prostate surgery Low risk surgeries (<1%) - ambulatory surgery, Breast surgery, endoscopic procedures, cataract surgery Cardiac risk Index (1 point for any of the below) Cerebrovascular disease or CHF: no Cr >2.0 mg/dl: Recent Labs Component Name 02/06/16 0844 CREATININE 1.60* DM on insulin: no Ischemic heart disease: no Suprainguinal vascular surgery, intrathoracic surgery, or intra-abdominal surgery: no Risk of major cardiac event is 0.9% if one point (EKG indicated). Significantly high risk if 2+ pts. EKG - NSR, HR 81. No acute ST elevation or depression. No Q waves. No T wave inversion. 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 - Plan: RISK ADJUSTED VISIT, EKG 12-LEAD, NH ELECTROCARDIOGRAM, COMPLETE Type 2 diabetes mellitus with diabetic neuropathy, without long-term current use of insulin - Plan: RISK ADJUSTED VISIT, EKG 12-LEAD, NH ELECTROCARDIOGRAM, COMPLETE Hypothyroidism, adult - Dose adjusted 2 months ago. Recheck TSH. Adjust if needed - Plan: RISK ADJUSTED VISIT, TSH Benign hypertension with chronic kidney disease - Controlled. Continue Rx for renal protection - Plan: RISK ADJUSTED VISIT, EKG 12-LEAD, NH ELECTROCARDIOGRAM, COMPLETE Alzheimer's dementia without behavioral disturbance, unspecified timing of dementia onset - stable on memantine - Plan: RISK ADJUSTED VISIT Pt is intermediate risk for a relatively low risk surgery. EKG not concerning. Negative cardiopulmonary ROS. Will check labs. As long as no acute worsening of renal function, pt isbe cleared for upcoming surgery Return in 3 months for HTN, DM f/u An After Visit Summary was printed and given to the patient. Clearance Paperwork to be faxed to Dr. Brito and Dr. Andrew - [phone] Rosana Solo MD EN WORKER * Rere Kaufman - 04/06/2016 2:19 PM CST Patient came into the office today for pre op clearance for retina surgery on 04/20/16. Blood pressure 106/72, pulse 76, temperature 97.6 ??F, temperature source Oral, resp. rate 16, height 1.651 m (5' 5), weight 75.3 kg (166 lb). Depression: PHQ-2:TOTAL POINT SCORE: 0 PHQ-9: EN WORKER documented in this encounter Plan of Treatment Upcoming Encounters Date Type Department Care Team (Late st Contact Info) Description 04/07/2024 10:00 AM GARDEN WORKER Office Visit [facility] [id number] [place] [address] [address] [place] [address] Evelin Blanco, CARD CUTTER HELPER-RIPSAWYER [address] [facility] [address] [place] [id number] 06/06/2024 2:00 PM CDT Office Visit [facility] [id number] [place] [address] [address] [place] [address] Chris Aden MD [address] [place] [phone] documented as of this encounter Goals Goal Patient Goal Type Associated Problems Recent Progress Patient-Stated? Author Blood Pressure < 140/90 Blood Pressure 96/68(2023 2:34 PM GARDEN WORKER) Rere Vargas Note: Caring for Your [...] Related Tools, and click ? HBP Trackers.? [id number]-ZHW-USA-1 or ( ) National Heart, Lung and Blood [place]: http://www.nhlbi.nih.gov/health/infoctr/index.htm Exercise 5X per week (30 min per time) Exercise No Rere Kaufman Note: The [place] [employer] [...] diabetes: ? ? [place] Diabetes Association: www.diabetes.org 1-717-CKVNBJAS ( ) ? ? [place] Diabetes Association-Support group line: www.professional.diabetes.org ? ? [place] Heart Association: www.heart.org or 8-332-JIS-USA-1 ( ) Addy MyPlate: www.Razoommyplate.gov documented as of this encounter Procedures Procedure Name Priority Date/Time Associated Diagnosis Comments PT-INR Routine 04/06/2016 3:36 PM GARDEN WORKER Pre-operative cardiovascular examination CBC W AUTO DIFFERENTIAL Routine 04/06/2016 3:36 PM GARDEN WORKER Pre-operative cardiovascular examination COMPREHENSIVE METABOLIC PANEL Routine 04/06/2016 3:36 PM GARDEN WORKER Pre-operative cardiovascular examination TSH Routine 04/06/2016 3:36 PM GARDEN WORKER Pre-operative cardiovascular examination Hypothyroidism, adult EKG 12-LEAD Routine 04/06/2016 Pre-operative cardiovascular examination Type 2 diabetes mellitus with stage 3 chronic kidney disease, without long-term current use of insulin (HCC) Type 2 diabetes mellitus with diabetic neuropathy, without long-term current use of insulin (HCC) Benign hypertension with chronic kidney disease documented in this encounter Results * PT-INR (04/06/2016 3:36 PM GARDEN WORKER) INR 0.9 0.9 - 1.1 [facility] ACCOUNT BILL Comment: Conventional Warfarin Anticoagulant Therapy: INR Reference Range: ??2.0-3.0 Intensive Warfarin Anticoagulant Therapy: INR Reference Range: ? 2.5-3.5 PT 9.7 9.5 - 11.6 sec [facility] ACCOUNT BILL Blood BLOOD SPECIMEN / Unknown 04/06/2016 3:36 PM GARDEN WORKER 04/06/2016 Narrative Resulting Agency Comment [facility] [address] ??[place] [phone] Rosana Solo MD LAB - COAGULATION OR DERABLES [facility] ACCOUNT BILL [address] [place] [address] * TSH (04/06/2016 3:36 PM GARDEN WORKER) TSH 2.16 0.358 - 3.740 uIU/mL [facility] ACCOUNT BILL Blood BLOOD SPECIMEN / Unknown 04/06/2016 3:36 PM GARDEN WORKER 04/06/2016 Narrative Resulting Agency Comment [facility] [address] ??[place] [phone] Rosana Solo MD LAB - CHEMISTRY ORDE RABLES Performing Organization Address City/[facility]/ZIP Co de Phone Number [facility] ACCOUNT BILL [address] [place] [address] * (ABNORMAL) COMPREHENSIVE METABOLIC PANEL (04/06/2016 3:36 PM GARDEN WORKER) Glucose 112(H) 74 - 106 mg/dL [facility] ACCOUNT BILL BUN 27(H) 7 - 21 mg/dL [facility] ACCOUNT BILL Creatinine 1.80(H) 0.50 - 1.30 mg/dL [facility] ACCOUNT BILL eGFR by MDRD 37 mL/min/1.7 3m2 [facility] ACCOUNT BILL eGFR by MDRD 44 mL/min/1.7 3m2 [facility] ACCOUNT BILL Sodium 139 136 - 145 mmol/L [facility] ACCOUNT BILL Potassium 4.9 3.5 - 5.1 mmol/L [facility] ACCOUNT BILL Chloride 104 98 - 107 mmol/L [facility] ACCOUNT BILL CO2 27 22 - 31 mmol/L [facility] ACCOUNT BILL Calcium 9.3 8.5 - 10.1 mg/dL [facility] ACCOUNT BILL Protein Total 7.3 6.4 - 8.2 gm/dL [facility] ACCOUNT BILL Albumin 3.8 3.4 - 5.0 gm/dL [facility] ACCOUNT BILL Bilirubin Total 0.3 0.2 - 1.0 mg/dL [facility] ACCOUNT BILL Alkaline Phosphatase 65 38 - 126 U/L [facility] ACCOUNT BILL AST 11 5 - 40 U/L [facility] ACCOUNT BILL ALT 16 13 - 61 U/L [facility] ACCOUNT BILL Blood BLOOD SPECIMEN / Unknown 04/06/2016 3:36 PM GARDEN WORKER 04/06/2016 Narrative Resulting Agency Comment [facility] [address] [facility] [address] ??[place] [phone] Rosana Solo MD LAB - CHEMISTRY MELYSSA CHAHAL [facility] ACCOUNT BILL [address] [place] [address] * (ABNORMAL) CBC W AUTO DIFFERENTIAL (04/06/2016 3:36 PM GARDEN WORKER) WBC 5.3 4.4 - 10.7 x10E9/L [facility] ACCOUNT BILL RBC 4.31 3.80 - 5.40 x10E12/L [facility] ACCOUNT BILL Hemoglobin 13.8 12.0 - 17.6 gm/dL [facility] ACCOUNT BILL Hematocrit 42.5 35.2 - 51.7 % [facility] ACCOUNT BILL MCV 98.6(H) 80.7 - 98.3 fL [facility] ACCOUNT BILL MCH 32.0 26.7 - 34.0 pg [facility] ACCOUNT BILL MCHC 32.5 30.8 - 35.9 gm/dL [facility] ACCOUNT BILL RDW 13.1 12.1 - 14.9 % [facility] ACCOUNT BILL Platelet Count 232 153 - 416 x10E9/L [facility] ACCOUNT BILL Comment:MPV FL BLOOD (SSM) 1 1.4 fl 9.4-12.9 Granulocytes % 54.8 44.0 - 73.0 % [facility] ACCOUNT BILL Lymphocytes % 29.0 20.0 - 43.0 % [facility] ACCOUNT BILL Monocytes % 10.9 5.0 - 13.0 % [facility] ACCOUNT BILL Eosinophils % 3.8 0.0 - 6.0 % [facility] ACCOUNT BILL Basophils % 1.3 0.0 - 2.0 % [facility] ACCOUNT BILL Granulocytes Absolute 2.91 2.01 - 7.14 x10E9/L [facility] ACCOUNT BILL Lymphocytes Absolute 1.54 1.07 - 3.94 x10E9/L [facility] ACCOUNT BILL Monocytes Absolute 0.58 0.26 - 1.07 x10E9/L [facility] ACCOUNT BILL Eosinophils Absolute 0.20 0 - 0.47 x10E9/L [facility] ACCOUNT BILL Basophils Absolute 0.07 0 - 0.08 x10E9/L [facility] ACCOUNT BILL Immature Granulocytes 0.2 0 - 1 % [facility] ACCOUNT BILL Immature Granulocytes Absolute 0.01 0.00 - 0.06 x10E9/L [facility] ACCOUNT BILL nRBC 0 /100 WBC [facility] ACCOUNT BILL Blood BLOOD SPECIMEN / Unknown 04/06/2016 3:36 PM GARDEN WORKER 04/06/2016 Narrative Resulting Agency Comment [facility] [address] [facility] ??[place] [phone] Rosana Solo MD LAB - HEMATOLOGY ORD ERABLES Performing Organization Address City/[facility]/ZIP Co de Phone Number [facility] ACCOUNT BILL [address] [place] [address] * EKG 12-LEAD (04/06/2016) 04/06/2016 Narrative [facility] RESULT SCAN - 04/06/2016 NSR, HR 81. No acute ST elevation or depression. No Q waves. No T wave inversion. 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 (HCC) Type 2 diabetes mellitus with stage 3 chronic kidney disease, without long-term current use of insulin (HCC) Type 2 diabetes mellitus with diabetic neuropathy, without long-term current use of insulin (HCC) Hypothyroidism, adult Other specified acquired hypothyroidism Benign hypertension with chronic kidney disease Alzheimer's dementia without behavioral disturbance, unspecified timing of dementia onset (HCC) documented in this encounter Care Teams Contract Forester Relationship Specialty [place] [id number] [address] Ophthalmology 04/06/16 documented as of this encounter
--- OUTSIDE RECORDS SUMMARY | 2024-04-03 01:03 | XMS_ITS | Encounter Summary ---
Author Organization [facility] Address [address] [place] [address] Care Team Providers Care Traveling Storekeeper Name Role Phone Ricco Andrew MD Unavailable [phone] Reason for Visit * Reason Comments Diabetes 3 month follow up Hypertension Encounter Details Date Type Department Care Team (Latest Contact Info) Description 07/23/2016 2:00 PM CDT Office Visit [facility] - Family Medicine [address] [place], [place] [id number] Rosana Solo MD 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 (HCC); Benign hypertension with chronic kidney disease; Alzheimer's dementia without behavioral disturbance, unspecified timing of dementia onset; Skin-picking disorder; Seborrheic dermatitis of scalp; Seasonal allergic rhinitis, unspecified allergic rhinitis trigger; Hypothyroidism, adult Social History Tobacco Use Types Packs/Day Years [...] Sign Reading Time Taken Comments Blood Pressure 114/80 07/23/2016 1:31 PM CDT Pulse 72 07/23/2016 1:31 PM CDT Temperature 36.6 ??C (97.9 ??F) 07/23/2016 1:31 PM CD T Respiratory Rate 12 07/23/2016 1:31 PM CDT Oxygen Saturation - - Inhaled Oxygen Concentration - - Weight 75.3 kg (166 lb) 07/23/2016 1:31 PM CDT Height 165.1 cm (5' 5) 07/23/2016 1:31 PM CDT Body Mass Index 27.62 07/23/2016 1:31 PM CDT documented in this encounter Patient Instructions * Patient Instructions* Rosana Solo MD - 07/23/2016 2:04 PM CDT Get updated Hgb A1c (diabetes control) and BMP (kidney function and electrolytes). Lab orders sent to [facility] Directions to [facility]: [facility] is located on the 1st floor of this building. Please take the elevators down to the lobby.As soon as you exit the elevator, take an immediate left out of the elevators and then go left downthe first hallway. [facility] is located in [address] on the left side just past the restrooms. They orders have been transmitted electronically, so the should have them. Caring For Your Diabetes ?? Follow a diabetic diet with healthy meals that are low salt, low fat, high fiber. For more information on a diabetic diet, please go to the [place] Diabetes Association website at www.diabetes.org and select [...] minutes if trying to lose weight) The [place] [employer] recommends all adults [...] an effort to lose a few pounds Goals ? ? Blood Pressure < 140/90 [...] Where can I go for more information? [place] Heart Association National Center: http://www.americanheart.org 1. In the top header, click ???Conditions?? . 2. In the top header, click ???high blood pressure.?? 3. For a printable blood pressure tracker, scroll toward the bottom of the page to Related Tools, and click ???HBP Trackers.?? 0-444-[facility]L-[facility]- or ( ) National Heart, Lung and Blood Soso: http://www.nhlbi.nih.gov/health/infoctr/index.htm ? ? Blood Pressure < 140/90 [...] Where can I go for more information? [place] Heart Association National Center: http://www.americanheart.org 4. In the top header, click ???Conditions?? . 5. In the top header, click ???high blood pressure.?? 6. For a printable blood pressure tracker, scroll toward the bottom of the page to Related Tools, and click ???HBP Trackers.?? 7-352-ZOY-USA- or ( ) National Heart, Lung and Blood Soso: http://www.nhlbi.nih.gov/health/infoctr/index.htm ??? Exercise 5X per week (30 min per time) The [place] [employer] of [employer] Medicine recommends all adults [...] and how to manage your diabetes: ??? [place] Diabetes Association: www.diabetes.org 7-602-ZSSMMBEG ( ) ??? [place] Diabetes Association-Support group line: www.professional.diabetes.org ??? [place] Heart Association: www.heart.org or 0-763-BSQ-USA-1 ( ) activ[employer] Intelligence MyPlate: www.OBOOKmyplate.gov ??? Have labs drawn Caring for Your [...] during one of your regular office visits. ??? Eye exam - [...] exam notes are sent toour office. ?? Please call office during routine office hours if any questions or concerns. ?? After hours you may contact us through the exchange at for more significant issues. ?? See me in 6 months Seborrheic Dermatitis WHAT YOU NEED TO KNOW: Seborrheic dermatitis is a skin condition that causes a rash and flaking, scaling skin. The condition usually affects hairy areas of the body, such as the scalp. Your face, eyebrows, ears, chest, groin, or back may be affected. Seborrheic dermatitis can happen at any age. The condition often goes away on its own in infants, but it may return during adolescence. Seborrheic dermatitis may be causedby a fungal infection, immune system problems, or hormone changes. DISCHARGE INSTRUCTIONS: Contact your healthcare provider if: ?? You have new or worsening symptoms. ?? Your symptoms make it difficult for you to do your daily activities. ?? Your symptoms do not improve even after treatment. ?? You have questions or concerns about your condition or care. Medicines: ?? Medicines may be given to treat a fungal or bacterial infection. You may also need a steroid medicine. You may be given these medicines in pill form or in a cream to apply to your skin. ?? Take your medicine as directed. Contact your healthcare provider if you think your medicine is not helping or if you have side effects. Tell him or her if you are allergic to any medicine. Keep a list of the medicines, vitamins, and herbs you take. Include the amounts, and when and why you take them. Bring the list or the pill bottles to follow-up visits. Carry your medicine list with you in case of an emergency. Manage your symptoms: ?? Wash your skin and hair often. Your healthcare provider can tell you how often to wash. You may need to wash your hair every day or two, or once per week, depending on the kind of hair you have. Apply a gentle moisturizer to your skin after you wash. Use mild soaps and moisturizers. Do not use any product that contains alcohol. Alcohol can dry your skin and make your symptoms worse. ?? Protect your scalp if you use coal tar shampoo. [place] tar shampoo can make your skin more sensitive to light. Wear a hat when you are outside. Do not use tanning beds or sun lamps. ?? Remove scales after you soften them. Do not pull on the scales. This can spread infection and may cause hair loss. Apply mineral oil or olive oil to the skin and let it sit for 1 hour. Then use a soft-bristled brush to remove the scales or shampoo your hair. ?? Clean your eyelids, if needed. Use baby shampoo to wash your eyelids every night. Use a cotton swab to remove scales. A warm compress may also help control symptoms. To make a warm compress, soak a soft washcloth in warm water. Wring out the extra water and apply the cloth to your eyelid for a few minutes. ?? Consider shaving off your alvarado or mustache. Your symptoms may be worse under your alvarado or mustache. Shaving may help reduce your symptoms and prevent them from returning in this area. Follow up with your healthcare provider as directed: Write down your questions so you remember to ask them during your visits. ?? 2016 [place]. Information is for End User's use only and may not be sold, redistributed or otherwise used for commercial purposes. All illustrations and images included in CareNotes?? are the copyrighted property of [employer], [employer]. or [employer]. The above information is an audio visual aids director only. It is not intended as medical advice for individual conditions or treatments. Talk to your doctor, nurse or pharmacist before following any medical regimen to see if it is safe and effective for you. documented in this encounter Progress Notes * Rosana Solo MD - 07/24/2016 3:27 PM CDT Hgb A1c 6.9. Diabetes is controlled. Continue same dose of glipizide. Creatinine (kidney test) improved some. Now 1.6. Potassium just slightly elevated. May be artifact of lab draw if blood got agitated in the tube. Just 0.1 above upper limit of normal. Will monitor, but no specific treatment needed at present time. Rest of electrolytes normal My Chart sent * Roasna Solo MD - 07/23/2016 1:50 PM CDT SUBJECTIVE: Mk Sanches is a 81 y.o. male here for follow up chronic issues Living with son and daughter. Daughter with him today HTN: Home BP monitoring is not done. Cardiovascular ROS: negative for - chest pain, dyspnea on exertion or palpitations Current Cardiac Medications: lisinopril 10 mg Diabetes type II with neuropathy: Glucose monitoring is performed occasionally. Blood glucoses 90-120s fasting most of the time (goal 80-120 fasting, <180 if 2 hr PP). Following DM diet: tries to get healthy diet Does pt exercise: not really Last dilated eye exam: unsure. Kidney disease?: Yes Neuropathy?: Yes On JAYDEN- I or ARB?: yes On Statin?: no Diabetic ROS: no chest pain, dyspnea or TIA's, no unusual visual symptoms, no worsening LE edema, no new foot ulcers. Dementia/Alzheimers - on Namenda. Primarily short-term. Denies sundowning. Does not wander excessively. Denies rapid decline. Likes to skin pick. Daughter continually has to redirect Hypothyroidism - on levothyroxine 75 mcg daily. Denies fatigue Pt has tendency to skin pick. Several sores notes to scalp, back of neck, and back. Reprots gets them to start to heal and then he picks again> Reports insurance would not cover for him to see derm Past Medical History: Diagnosis Date ??? Chronic renal failure ??? Dementia ??? Dermatitis ??? DM (diabetes mellitus) ??? HTN (hypertension) ??? Hx of rheumatic fever ??? Hypothyroid ??? Seasonal allergies ??? Trigger finger Body mass index is 27.62 kg/(m^2). Outpatient Medications Prior to Visit Medication Sig Dispense Refill ??? levothyroxine (SYNTHROID) 75 MCG tablet Take 1 Tab by mouth daily before breakfast Reasons: Underactive Thyroid 90 Tab 1 ??? 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 glipiZIDE (GLUCOTROL) 5 MG tablet Take 1 Tab by mouth daily before breakfast Reasons: Type 2 Diabetes 90 Tab 1 ??? lisinopril (PRINIVIL; ZESTRIL) 10 MG tablet Take 1 Tab by mouth once daily Reasons: High Blood Pressure 90 Tab 1 ??? Loratadine 10 MG Take 10 mg by mouth once daily Reasons: allergies 90 Cap 1 No facility-administered medications prior to visit. [...] ??? ANNUAL MEDICARE WELLNESS VISIT 02/05/2016 ??? DIABETES EDUCATION Q1 YR ([id number]) 02/05/2016 ??? DIABETES-EYE EXAM Q1 YR 02/05/2016 ??? HGBA1C Q6 [place] 08/05/2016 ??? HCC (Chart Reviewer Use Only) 09/30/2016 ??? DIABETES-FOOT EXAM WITH MONOFILAMENT Q1 YR 02/04/2017 ??? LIPIDS Q1 YR 02/05/2017 ??? CR/MA Q1 YR 02/05/2017 ??? INFLUENZA VACCINE Completed Immunization History Administered Date(s) Administered ??? Influenza Prsv Free Inc Antigen High Dose 02/05/2016 ??? PNEUMOCOCCAL PPSV23 07/25/2012 REVIEW OF SYSTEMS Constitutional: Denies fever, chills Ears, nose, mouth, and throat: Denies nasal discharge, sorethroat Respiratory: Denies cough, dyspnea, wheezing Cardiovascular: Denies chest pain, palpitations, peripheral edema Gastrointestinal: Denies abdominal pain, frequent reflux, bloody stools or melena Skin: See HPI Neurological: Denies syncope, dizziness. Denies TIA or stroke-like symptoms. Behavioral/Psych: Decreased memory. Denies depression OBJECTIVE: Physical Examination: Vitals: 07/23/16 1331 BP: 114/80 Pulse: 72 Resp: 12 Temp: 97.9 ??F Weight: 75.3 kg (166 lb) Body mass index is 27.62 kg/(m^2). No exam data present CrCl cannot [...] intact except for decreased hearing.. Grossly non-focal Skin: Some erythema scaling spots to scalp. Has a few larger scabbed lesion on scalp and posterior neck at base of hair line. Scabs in various stages of healing notes to back, arms, legs, and buttocks. Some scarring from old scabs Extremities: Peripheral pulses 2+ and symmetric bilateral radial and pedal. No peripheral edema. Nocyanosis, or clubbing Psych/MSE: Patient on time for appointment, some inattention at times, but alerts when directly addressed loudly, maintains fair eye contact, establishes fair rapport, no evidence of hallucinations or delusions, impaired short-term memory, affect normal, mood euthymic, no increased psychomotor agitation Recent Labs Component Name 02/06/16 0844 CHOL 148 TRIG 111 HDL 48 LDLCALC 78 Recent Labs Component Name 02/06/16 0844 HGBA1C 6.4* Recent Labs Component Name 04/06/16 1536 02/06/16 0844 SODIUM 139 142 POTASSIUM 4.9 5.2* CHLORIDE 104 106 CO2 27 30 BUN 27* 31* CREATININE 1.80* 1.60* GLUCOSE 112* 129* CALCIUM 9.3 9.3 ALBUMIN 3.8 3.8 ALKPHOS 65 60 ALT 16 14 AST 11 8 TBIL 0.3 0.3 TPROT 7.3 7.0 EGFR 37 42 Recent Labs Component Name 02/06/16 0844 MICROALBCREA 6 ASSESSMENT & PLAN: ICD-10-CM 1. Type 2 diabetes mellitus with chronic kidney disease, without long-term current use of insulin, unspecified CKD stage E11.22 HEMOGLOBIN A1C glipiZIDE (GLUCOTROL) 5 MG tablet Controlled. Check labs. Cont Rx. DM edu done. 2. Type 2 diabetes mellitus with diabetic neuropathy, without long-term current use of insulin E11.40 HEMOGLOBIN A1C Controlled. cont rx. Monitor 3. 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 Benign hypertension with chronic kidney disease I12.9 Controlled. Cont Rx 5. Alzheimer's dementia without behavioral disturbance, unspecified timing of dementia onset G30.9 F02.80 stable. Continue namenda 6. Skin-picking disorder F42.4 encouraged to stop picking. I have some concern a few of his scabs may be SCCs or AKs, but reprots insurance would not cover derm eval 7. Seborrheic dermatitis of scalp L21.9 ketoconazole (NIZORAL) 2 % shampoo has dry scalp and scaling. Likely some degree of dandruff. using Head and Shoulders. Trial of Ketoconazole. Monitor 8. Seasonal allergic rhinitis, unspecified allergic rhinitis trigger J30.2 Loratadine 10 MG Controlled with claritin. continue 9. Hypothyroidism, adult E03.9 tolerates rx. Continue See Goals in chart Health Maintenance Due Topic Date Due ??? DTAP/TDAP/TD VACCINES (1 - Tdap) 1954 ??? PNEUMOCOCCAL VACCINE (2 of 2 - PCV13) 07/25/2013 ??? ANNUAL MEDICARE WELLNESS VISIT 02/05/2016 ??? DIABETES EDUCATION Q1 YR ([id number]) 02/05/2016 ??? DIABETES-EYE EXAM Q1 YR 02/05/2016 ??? HGBA1C Q6 [place] 08/05/2016 Consider PCV13 in future as no records to indicate previouslt received it Follow up in 6 months Or return to clinic sooner if persistent or worsening symptoms An After Visit Summary was printed and given to the patient. Rosana Solo MD * Rere Kaufman - 07/23/2016 1:37 PM CDT Patient came into the office today for 3 month follow up. Blood pressure 114/80, pulse 72, temperature 97.9 ??F, temperature source Oral, resp. rate 12, height 1.651 m (5' 5), weight 75.3 kg (166 lb). documented in this encounter Plan of Treatment Upcoming Encounters Date Type Department Care Team (Late st Contact Info) Description 04/07/2024 10:00 AM STAPLING MACHINE OPERATOR Office Visit [facility] [id number] [place] [address] Evelin Blanco, REEL CART OPERATOR-RENAL MEDICINE PHYSICIAN [id number] [place] [address] 06/06/2024 2:00 PM CDT Office Visit [address] [address] [place] [address] [phone] documented as of this encounter Goals Goal Patient Goal Type Associated Problems Recent Progress Patient-Stated? Author Blood Pressure < 140/90 Blood Pressure 96/68(2023 2:34 PM STAPLING MACHINE OPERATOR) Rere Vargas Note: Caring for [...] Where can I go for more information? [place] Heart Association National Center: http://www.americanheart.org 1. In the top header, click ? Conditions? . 2. In the top header, click ? high blood pressure.? 3. For a printable blood pressure tracker, scroll toward the bottom of the page to Related Tools, and click ? HBP Trackers.? 5-061-ASR-USA-1 or ( ) National Heart, Lung and Blood Soso: http://www.nhlbi.nih.gov/health/infoctr/index.htm Blood Pressure < 140/90 Blood Pressure 96/68(2023 2:34 PM STAPLING MACHINE OPERATOR) Rere Vargas Note: Caring for [...] Where can I go for more information? [place] Heart Association National Center: http://www.americanheart.org 1. In the top header, click ? Conditions? . 2. In the top header, click ? high blood pressure.? 3. For a printable blood pressure tracker, scroll toward the bottom of the page to Related Tools, and click ? HBP Trackers.? 4-276-GKJ-USA-1 or ( ) National Heart, Lung and Blood Soso: http://www.nhlbi.nih.gov/health/infoctr/index.htm Exercise 5X per week (30 min per time) Exercise No Rere Kaufman Note: The [place] [employer] recommends all adults [...] how to manage your diabetes: ? ? [place] Diabetes Association: www.diabetes.org 1-437-VMKCBADK ( ) ? ? [place] Diabetes Association-Support group line: www.professional.diabetes.org ? ? [place] Heart Association: www.heart.org or 1-647-NRI-USA-1 ( ) activ[employer] Intelligence MyPlate: www.OBOOKmyplate.gov Have labs drawn Lifestyle Rere Vargas Note: [...] Date/Time Associated Diagnosis Comments HEMOGLOBIN A1C Routine 07/23/2016 2:16 PM CDT Type 2 diabetes mellitus with diabetic neuropathy, without long-term current use of insulin (HCC) Type 2 diabetes mellitus with chronic kidney disease, without long-term current use of insulin, unspecified CKD stage (HCC) BASIC METABOLIC PANEL (CALCIUM TOTAL) Routine 07/23/2016 2:16 PM CDT documented in this encounter Results * (ABNORMAL) BASIC METABOLIC PANEL (CALCIUM TOTAL) (07/23/2016 2:16 PM CDT) Glucose 96 74 - 106 mg/dL [facility] ACCOUNT BILL BUN 25(H) 7 - 21 mg/dL [facility] ACCOUNT BILL Creatinine 1.60(H) 0.50 - 1.30 mg/dL [facility] ACCOUNT BILL eGFR by MDRD 42 mL/min/1.7 3m2 [facility] ACCOUNT BILL eGFR by MDRD 51 mL/min/1.7 3m2 [facility] ACCOUNT BILL Sodium 136 136 - 145 mmol/L [facility] ACCOUNT BILL Potassium 5.2(H) 3.5 - 5.1 mmol/L [facility] ACCOUNT BILL Chloride 101 98 - 107 mmol/L [facility] ACCOUNT BILL CO2 29 22 - 31 mmol/L [facility] ACCOUNT BILL Calcium 9.6 8.5 - 10.1 mg/dL [facility] ACCOUNT BILL Blood BLOOD SPECIMEN / Unknown 07/23/2016 2:16 PM CDT 07/23/2016 Narrative Resulting Agency Comment [facility] [address] [address] ??Ana LINARES [id number] Rosana Solo MD LAB - CHEMISTRY MELYSSA Mata Organization Address City/State/ZIP Co de Phone Number [facility] ACCOUNT BILL [address] [place] [address] * (ABNORMAL) HEMOGLOBIN A1C (07/23/2016 2:16 PM CDT) Hemoglobin A1c 6.9(H) 4.2 - 6.3 % [facility] ACCOUNT BILL Comment:AVERAGE GLUCOSE MG/D L BLOOD 151 mg/dL Whole Blood BLOOD SPECIMEN WITH EDTA / Unknown 07/23/2016 2:16 PM CDT 07/23/2016 Narrative Resulting Agency Comment [facility] [address] [phone] Rosana Solo MD LAB - CHEMISTRY MELYSSA CHAHAL [facility] ACCOUNT BILL [address] [place] [address] documented in this encounter Visit Diagnoses Diagnosis Type 2 diabetes mellitus with chronic kidney disease, without long-term current use of insulin, unspecified CKD stage (HCC)- Primary Type 2 diabetes mellitus with diabetic neuropathy, without long-term current use of insulin (HCC) 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 [address] [phone] Ophthalmology 04/06/16 documented as of this encounter
--- OUTSIDE RECORDS SUMMARY | 2024-04-03 01:03 | XMS_ITS ---
Author Organization [facility] Address [address] [facility] [place] [address] Care Team Providers Care Brake Repairer Hydraulic Name Role Phone Ricco Andrew MD Unavailable [phone] Fawn Ramon DPM Unavailable [phone] Chris Aden MD Primary Care Provider [phone] Chris Aden MD Unavailable [facility]MM [facility] AWV - [facility] Status:Closed (Closed) Start date:04/30/2022 Enrollment date:05/13/2022 Enrollment reason:Identified using claims or encounter data End date:2022 Close reason:Follow by dynamic observation Continued Care and Services Coordination
--- OUTSIDE RECORDS SUMMARY | 2024-04-03 01:03 | XMS_ITS | Encounter Summary ---
Author Organization [facility] Address [address] [place] [address] Care Team Providers Care Rebar Fabricator Name Role Phone Ricco Andrew MD Unavailable [phone] Reason for Visit * Reason Onset Date Comments Referral Request 04/17/2016 Encounter Details Date Type Department Care Team (Late st Contact Info) Description 04/17/2016 Telephone [facility] - Family Medicine [address] [place], [place] [phone] Rosana Solo MD [facility] [address] [phone] Referral Request Social History Tobacco Use [...] Telephone Encounter - Akosua Tapia - 04/17/2016 3:20 PM CST Referral authorized Referral #[id number] Valid for 12 visits Faxed to [phone] BIKE RACER * Telephone Encounter - NjDru Salas - 04/17/2016 2:41 PM CST Person Requesting Referral: Suzanne PCP: Dr. Solo Specialist: Dr. 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 Appointment Date: 04/20/16 Insurance: [facility] Tax ID: [id number] BIKE RACER documented in this encounter Plan of Treatment Upcoming Encounters Date Type Department Care Team (Late st Contact Info) Description 04/07/2024 10:00 AM DIRT BIKE RACER Office Visit [facility] [id number] [place] [address] [address] [place] [address] Evelin Blanco APRN-CNP [id number] [place] [address] [address] [place] [address] 06/06/2024 2:00 PM CDT Office Visit [facility] [phone] [place] [address] [address] [place] [address] [place] [phone] [place] [phone] documented as of this encounter Goals Goal Patient Goal Type Associated Problems Recent Progress Patient-Stated? Author Blood Pressure < 140/90 Blood Pressure 96/68(2023 2:34 PM DIRT BIKE RACER) Rere Vargas Note: Caring for Your High [...] Where can I go for more information? Canadian Heart Association National Center: http://www.americanheart.org 1. In the top header, click ? Conditions? . 2. In the top header, click ? high blood pressure.? 3. For a printable blood pressure tracker, scroll toward the bottom of the page to Related Tools, and click ? HBP Trackers.? 1-364-CSI-USA-1 or ( ) National Heart, Lung and Blood [place]: http://www.nhlbi.nih.gov/health/infoctr/index.htm Exercise 5X per week (30 min per time) Exercise No Rere Kaufman Note: The [place] College of Sports Medicine recommends all adults [...] how to manage your diabetes: ? ? [place] Diabetes Association: www.diabetes.org 5-898-XVILSKIY ( ) ? ? [place] Diabetes Association-Support group line: www.professional.diabetes.org ? ? [place] Heart Association: www.heart.org or 6-604-XUY-USA-1 ( ) [employer] MyPlate: www.choosemyplate.gov documented as of this encounter Visit Diagnoses Not on filedocumented in this encounter Care Teams Rebar Fabricator Relationship Specialty [place] [address] [phone] Ophthalmology 04/06/16 documented as of this encounter
--- OUTSIDE RECORDS SUMMARY | 2024-04-03 01:03 | XMS_ITS | Encounter Summary ---
Author Organization [facility] Address [address] [facility] [place] [address] Care Team Providers Care Nailer Hand Name Role Phone Ricco Andrew MD Unavailable [phone] Reason for Visit * Reason Onset Date Comments MEDICATION REFILL 06/17/2016 Med Question 06/17/2016 Encounter Details Date Type Department Care Team (Late st Contact Info) Description 06/17/2016 Refill [facility] - Family Medicine [address] [place], [place] [id number] Chauncey Herrera MD [address] [place] [id number] MEDICATION REFILL; Med Question Social History Tobacco Use Types [...] Addendum Note - Chauncey Herrera MD - 06/23/2016 9:47 AM CDTAddended by: CHAUNCEY HERRERA on: 06/23/2016 09:47 AM Modules accepted: Orders * Telephone Encounter - Chauncey Herrera MD - 06/23/2016 9:47 AM CDT Chart reviewed. Medication refilled. Sent electronically to pharmacy as tablet Requested Prescriptions Signed Prescriptions Disp Refills ??? levothyroxine (SYNTHROID) 75 MCG tablet 90 Tab 1 Sig: Take 1 Tab by mouth daily before breakfast Reasons: Underactive Thyroid Authorizing Provider: CHAUNCEY HERRERA MD * Addendum Note - Mariangel Smith - 06/23/2016 9:14 AM CDTAddended by: MARIANGEL SMITH on: 06/23/2016 09:14 AM Modules accepted: Orders * Telephone Encounter - Mariangel Smith - 06/23/2016 9:04 AM CDT Pharmacy calling back patient regularly takes generic Levothyroxine tablets not capsules (Tirosint)is not covered by insurance and patient has always filled as generic. Last refill 04/17/16 Levothyroxine 75 mg tablets Qty 90. Please sign to update medication list. Next appointment 07/23/16 * Telephone Encounter - Evelin Blanco APRN-CNP - 06/17/2016 1:47 PM CDT Please ask pharmacy to look at their records. According to this computer pt has been getting the capsules all along. * Telephone Encounter - Smooth Aviles - 06/17/2016 1:13 PM CDT Pharmacy called about patients levothyroxine (TIROSINT) 75 MCG capsule. States they normally fill tables. * Telephone Encounter - Venancio Dupree 06/17/2016 10:39 AM CDT Mk Myron Requested Prescriptions Pending Prescriptions Disp Refills ??? levothyroxine (TIROSINT) 75 MCG capsule 90 Cap 0 Sig: Take 1 Cap by mouth daily before breakfast Reasons: Underactive Thyroid Allergies Allergen Reactions ??? Ibuprofen Other HE HAS CKD AND SHOULD NOT TAKE NSAID'S Last refill- 02/10/16 Last OV-04/06/16 Future OV-07/23/16 documented in this encounter Plan of Treatment Upcoming Encounters Date Type Department Care Team (Late st Contact Info) Description 04/07/2024 10:00 AM CLAIM REPRESENTATIVE [facility] [id number] [place] [address] [place] [phone] Evelin Blanco APRN-CNP [id number] [place] [address] [phone] 06/06/2024 2:00 PM CDT [facility] [id number] [place] [phone] Chris Aden MD [id number] [place] [phone] documented as of this encounter Goals Goal Patient Goal Type Associated Problems Recent Progress Patient-Stated? Author Blood Pressure < 140/90 Blood Pressure 96/68(2023 2:34 PM CLAIM REPRESENTATIVE) Rere Vargas Note: Caring for Your High [...] Related Tools, and click ? HBP Trackers.? 0-725-NVT-USA-1 or ( ) National Heart, Lung and Blood [place]: http://www.nhlbi.nih.gov/health/infoctr/index.htm Exercise 5X per week (30 min [...] diabetes: ? ? [place] Diabetes Association: www.diabetes.org 8-679-CJKTYRJK ( ) ? ? [place] Diabetes Association-Support group line: www.professional.diabetes.org ? ? [place] Heart Association: www.heart.org or 7-337-FQY-USA-1 ( ) [employer] MyPlate: www.choosemyplate.gov documented as of this encounter Visit Diagnoses Diagnosis Hypothyroidism, adult Other specified acquired hypothyroidism documented in this encounter Care Teams Nailer Hand Relationship Specialty [place] [id number] [facility] [address] [place] [address] Ophthalmology 04/06/16 documented as of this encounter
--- OUTSIDE RECORDS SUMMARY | 2024-04-03 01:03 | XMS_ITS ---
Author Organization [facility] Address [address] [facility] [place] [address] Care Team Providers Care Rod Hanger Name Role Phone Ricco Andrew MD Unavailable [phone] Fawn Ramon DPM Unavailable [phone] Chris Aden MD Primary Care Provider [phone] Chris Aden MD Unavailable QMM & AWV - Vibrance Status:Closed (Closed) Start date:2023 Enrollment date:2023 Enrollment reason:Identified using claims or encounter data End date:2023 Close reason:Follow by dynamic observation Continued Care and Services Coordination
--- OUTSIDE RECORDS SUMMARY | 2024-04-03 01:03 | XMS_ITS | Encounter Summary ---
Author Organization [facility] Address [address] [facility] [address] Care Team Providers Care Short Filler Bunch Machine Operator Name Role Phone Ricco Andrew MD Unavailable [phone] Reason for Visit * Reason Comments Refill Request Encounter Details Date Type Department Care Team (Late st Contact Info) Description 07/13/2016 Refill [facility] - Family Medicine [address] [place], [place] [id number] Chauncey Herrera MD [address] [place] [phone] Refill Request Social History Tobacco Use [...] Telephone Encounter - Chauncey Herrera MD - 07/13/2016 1:00 PM CDT Chart reviewed. Medication refused as currently on 75 mcg daily Requested Prescriptions Refused Prescriptions Disp Refills ??? levothyroxine (SYNTHROID) 50 MCG tablet [Pharmacy Med Name: LEVOTHYROXINE 50 MCG TABLET] 90 Tab1 Sig: TAKE 1 TABLET BY MOUTH EVERY MORNING BEFORE BREAKFAST Refused By: CHAUNCEY HERRERA Reason for Refusal: Refill not appropriate Chauncey Herrera MD * Telephone Encounter - Dior Dupreeismael Lovett - 07/13/2016 10:53 AM CDT Mk Myron Requested Prescriptions Pending Prescriptions Disp Refills ??? levothyroxine (SYNTHROID) 50 MCG tablet [Pharmacy Med Name: LEVOTHYROXINE 50 MCG TABLET] 90 Tab1 Sig: TAKE 1 TABLET BY MOUTH EVERY MORNING BEFORE BREAKFAST Allergies Allergen Reactions ??? Ibuprofen Other HE HAS CKD AND SHOULD NOT TAKE NSAID'S Last refill- 06/23/16 Last OV-04/06/16 Future OV-07/23/16 documented in this encounter Plan of Treatment Upcoming Encounters Date Type Department Care Team (Late st Contact Info) Description 04/07/2024 10:00 AM [employer] Office Visit [facility] [id number] [place] [address] Evelin Blanco, JOSETTE-SEWER AND DRAIN TECHNICIAN [id number] [place] [address] 06/06/2024 2:00 PM CDT Office Visit [facility] [id number] [place] [address] Chris Aden MD [id number] [place] [phone] documented as of this encounter Goals Goal Patient Goal Type Associated Problems Recent Progress Patient-Stated? Author Blood Pressure < 140/90 Blood Pressure 96/68(2023 2:34 PM SHE[employer]) Rere Vargas Note: Caring for Your High [...] Related Tools, and click ? HBP Trackers.? 5-334-DVM-USA-1 or ( ) National Heart, Lung and Blood [place]: http://www.nhlbi.nih.gov/health/infoctr/index.htm Exercise 5X per week (30 min [...] diabetes: ? ? [place] [employer]: www.diabetes.org 8-359-TNLJLXIO ( ) ? ? [place] Diabetes Association-Support group line: www.professional.diabetes.org ? ? [place] Heart Association: www.heart.org or 0-718-QKN-USA-1 ( ) [employer] MyPlate: www.choosemyplate.gov documented as of this encounter Visit Diagnoses Not on filedocumented in this encounter Care Teams Short Filler Bunch Machine Operator Relationship Specialty [place] [id number] [phone] Ophthalmology 04/06/16 documented as of this encounter
--- OUTSIDE RECORDS SUMMARY | 2024-04-03 01:03 | XMS_ITS | Encounter Summary ---
Author Organization [facility] Address [address] [place] [address] Care Team Providers Care Machine Wiper Name Role Phone Unavailable Primary Care Provider Unavailabl e Reason for Visit * Reason Comments Establish Care Encounter Details Date Type Department Care Team (Late st Contact Info) Description 02/05/2016 1:40 PM STAGE DRIVER Office Visit [facility] - Family Medicine [address] [place], [place] [id number] Rosana Herrera MD [address] [facility] [address] [place] [address] Type 2 diabetes mellitus with chronic kidney disease, without long-term current use of insulin, unspecified CKD stage (HCC) (Primary Dx); Type 2 diabetes mellitus with diabetic neuropathy, without long-term current use of insulin (HCC); Compromised kidney function; Hypothyroidism, adult; Benign hypertension with chronic kidney disease; Alzheimer's dementia without behavioral disturbance, unspecified timing of dementia onset; Seasonal allergic rhinitis, unspecified allergic rhinitis trigger; Skin lesion of scalp; Skin picking habit; Need for vaccination Social History Tobacco Use Types Packs/Day Years Used Date Smoking Tobacco: Never Smokeless Tobacco: Current Chew Tobacco Cessation:Counseling Given: No Alcohol Use Standard Drinks/Week Comments No 0 (1 standard drink = 0.6 oz pur e alcohol) Sex and Gender Information Value Date Recorded Sex Assigned at Male 01/22/2023 1:45 PM CDT Gender Identity Male 01/22/2023 1:45 PM CDT Sexual Orientation Straight 01/22/2023 1: 45 PM CDT documented as of this encounter Last Filed Vital Signs Vital Sign Reading Time Taken Comments Blood Pressure 124/80 02/05/2016 1:06 PM STAGE DRIVER Pulse 88 02/05/2016 1:06 PM STAGE DRIVER Temperature 37 ??C (98.6 ??F) 02/05/2016 1:06 PM STAGE DRIVER Respiratory Rate 16 02/05/2016 1:06 PM STAGE DRIVER Oxygen Saturation - - Inhaled Oxygen Concentration - - Weight 77.1 kg (170 lb) 02/05/2016 1:06 PM STAGE DRIVER Height 165.1 cm (5' 5) 02/05/2016 1:06 PM STAGE DRIVER Body Mass Index 28.29 02/05/2016 1:06 PM STAGE DRIVER documented in this encounter Patient Instructions * Patient Instructions* Rosana Herrera MD - 02/05/2016 1:58 PM STAGE DRIVER Get labs done fasting in the next few weeks. Nothing to eat or drink, other than water, for at least 8 hours before having drawn. Orders were sent electronically to [facility] Stop naproxen. Instead try Tylenol (acetaminophen) as needed for pain. Max dose is a total of 3,000mg in a 24 hours period Caring For Your Diabetes ?? Follow a diabetic diet with healthy meals that are low salt, low fat, high fiber. For more information on a diabetic diet, please go to the [place] Diabetes Association website at www.diabetes.org and select [...] 81 mg if recommended by your doctor ?? Aim for 30 minutes of exercise every day (45-60 minutes if trying to lose weight) The [place] [employer] recommends [...] a healthy weight. Body mass index is 28.29 kg/(m^2). If your BMI (a ratio of your weight to your height) is over 25, it is recommended that you try to exercise and eat healthier in an effort to lose a few pounds Health Maintenance Due Topic Date Due ??? DTAP/TDAP/TD VACCINES (1 - Tdap) 1956 ??? PNEUMOCOCCAL VACCINE (1 of 2 - PCV13) 2002 ??? INFLUENZA VACCINE (1) 10/21/2015 ??? ANNUAL MEDICARE WELLNESS VISIT 02/05/2016 ??? DIABETES EDUCATION Q1 YR (TPY370) 02/05/2016 ??? HGBA1C Q6 MO 02/05/2016 ??? LIPIDS Q1 YR 02/05/2016 ??? CR/MA Q1 YR 02/05/2016 ??? DIABETIC EYE EXAM Q1 YR 02/05/2016 Goals ? ? Blood Pressure < 140/90 [...] to Related Tools, and click ???HBP Trackers.?? 7-931-JVF-USA-1 or ( ) National Heart, Lung and Blood [place]: http://www.nhlbi.nih.gov/health/infoctr/index.htm ??? Exercise 5X per week (30 min per time) The [place] [employer] recommends [...] and how to manage your diabetes: ??? [place] Diabetes Association: www.diabetes.org 6-281-ODRXIUQE ( ) ??? [place] Diabetes Association-Support group line: www.professional.diabetes.org ??? [place] Heart Association: www.heart.org or 3-504-WGQ-USA-1 ( ) [facility] MyPlate: www.Multistatmyplate.gov ?? Please call office during routine office hours if any questions or concerns. ?? After hours you may contact us through the exchange at for more significant issues. ?? See me in 3 months E DRIVER documented in this encounter Progress Notes * Rosana Herrera MD - 02/10/2016 4:50 PM CSTIncreased dose levothyroxine sent in E DRIVER * Rere Kaufman - 02/10/2016 2:08 PM CSTDavid notified of patient results and will comply with doctors orders Please send new Rx to pharmacy E DRIVER * Rosana Herrera MD - 02/07/2016 5:30 PM CSTCreatinine is 1.6 with GFR 42. Indicates stage 3 chronic kidney disease. Needs to avoid all NSAIDs ( ibuprofen, naproxen, etc) Potassium just slightly elevated on labs. May be lab artifact. Will need to monitor. Rest of electrolytes and liver test normal TSH is elevated, FT4 normal. Pt likely needs levothyroxine dose increased slightly. Would increase to 75 mcg daily. Can take 1.5 tabs of the 50 mcg daily until runs out and then start the new Rx at the higher dose. WE can send in the new script for them Hgb A1c is 6.4. Indicates DM is controlled on current Rx. Continue Cholesterol controlled with medication. Ok to stay off cholesterol medications Microalbumin/Cr normal. E DRIVER * Rere Kaufman - 02/05/2016 1:22 PM CST Patient came into the office today to establish care. Blood pressure 124/80, pulse 88, temperature 98.6 ??F, temperature source Oral, resp. rate 16, height 1.651 m (5' 5), weight 77.1 kg (170 lb). Depression: PHQ-2:TOTAL POINT SCORE: 0 PHQ-9: There is no problem list on file for this patient. CrCl cannot be calculated (Patient has no serum creatinine result on file.). Body mass index is 28.29 kg/(m^2). Mk Sanches was administered a HD vaccine into the LD. Patient is aware of all side affects of thisvaccine. E DRIVER * Rosana Herrera MD - 02/05/2016 1:14 PM CST SUBJECTIVE: Mk Sanches is a 80 y.o. male new patient here to establish care and to address chronic issues and annual DERICK. Moved up here about 1-2 month ago. Living with son and daughter. They are with him today HTN: Home BP monitoring is not done. Cardiovascular ROS: negative for - chest pain, dyspnea on exertion or palpitations Current Cardiac Medications: lisinopril 10 mg Diabetes type II with neuropathy: Glucose monitoring is performed daily. Blood glucoses <100 fasting most of the time (goal 80-120 fasting, <180 if 2 hr PP). Following DM diet: tries to get healthy diet Does pt exercise: not really Last dilated eye exam: unsure. Kidney disease?: Yes, pt unsure of stage Neuropathy?: Yes, per records On JAYDEN- I or ARB?: yes On Statin?: no Diabetic ROS: no polyuria or polydipsia, no chest pain, dyspnea or TIA's, no unusual visual symptoms, no worsening LE edema, no new foot ulcers. Occasional numbness in feet CKD - likely due to HTN and DM. Pt and family unclear as to what stage Dementia/Alzheimers - on Namenda. Had Rx for aricept, but not taking in several months. Primarily short-term. Denies sundowning. Does not wander excessively. Denies rapid decline Hypothyroidism - on levothyroxine 50 mcg daily. Started at least 12/23/15 Arthritis in multiple joints. May have trigger fingers. Takes naproxen BID. Denies concerns of pain. Has not tried to wean. Have not tried tylenol Pt has tendency to skin pick. Several sores notes to scalp, back of neck, and back. Treating with topical cream (unsure what) Past Medical History Diagnosis Date ??? Chronic renal failure ??? Dementia ??? Dermatitis ??? DM (diabetes mellitus) ??? HTN (hypertension) ??? Hx of rheumatic fever ??? Hypothyroid ??? Seasonal allergies ??? Trigger finger Body mass index is 28.29 kg/(m^2). No outpatient prescriptions prior to visit. No facility-administered medications prior to visit. Allergies Allergen Reactions ??? Ibuprofen Other HE HAS CKD AND SHOULD NOT TAKE NSAID'S Past Surgical History Procedure Laterality Date ??? Negative surgical history Family History Problem Relation Age of Onset ??? Family history unknown: Yes History Substance Use Topics ??? Smoking status: Never Smoker ??? Smokeless tobacco: Current User Types: Chew ??? Alcohol use: No Health Maintenance Topic Date Due ??? DTAP/TDAP/TD VACCINES (1 - Tdap) 1956 ??? PNEUMOCOCCAL VACCINE (1 of 2 - PCV13) 2002 ??? INFLUENZA VACCINE (1) 10/21/2015 ??? ANNUAL MEDICARE WELLNESS VISIT 02/05/2016 ??? DIABETES EDUCATION Q1 YR ([id number]) 02/05/2016 ??? HGBA1C Q6 MO 02/05/2016 ??? LIPIDS Q1 YR 02/05/2016 ??? CR/MA Q1 YR 02/05/2016 ??? DIABETIC EYE EXAM Q1 YR 02/05/2016 ??? MONOFILAMENT FOOT EXAM Q1 YR 02/04/2017 Immunization History Administered Date(s) Administered ??? Influenza Prsv Free Inc Antigen High Dose 02/05/2016 ??? PNEUMOCOCCAL PPSV23 07/25/2012 Future Falls: Depression: PHQ-2:TOTAL POINT SCORE: 0 PHQ-9: REVIEW OF SYSTEMS Constitutional: Denies fever, chills Eyes: Vision stable, no discomfort. Ears, nose, mouth, and throat: Denies nasal discharge, sorethroat Respiratory: Denies cough, dyspnea, wheezing Cardiovascular: Denies chest pain, palpitations, peripheral edema Gastrointestinal: Denies abdominal pain, frequent reflux, bloody stools or melena Genitourinary: Denies dysuria Skin: See HPI Hematologic/lymphatic: Denies abnormal bleeding or bruising. Musculoskeletal: See HPI Neurological: Denies syncope, dizziness. Denies TIA or stroke-like symptoms. Some shuffling gait and tendency to drag feet Behavioral/Psych: Decreased memory. Denies depression OBJECTIVE: Physical Examination: Vitals: 02/05/16 1306 BP: 124/80 Pulse: 88 Resp: 16 Temp: 98.6 ??F Weight: 77.1 kg (170 lb) Body mass index is 28.29 kg/(m^2). No exam data present CrCl cannot be calculated (Patient has no serum creatinine result on file.). General: alert, well appearing, and in no [...] nerves II-XII grossly intact except for decreased hearing.Strength and sensation grossly intact in bilateral upper extremities and bilateral lower extremities. 5/5 strength to plantar and dorsiflexion as well as EHL. Grossly non-focal Skin: Some erythema scaling spots to scalp. Has a few larger scabbed lesion on scalp and posterior neck at base of hair line. Scabs in various stages of healing notes to back, arms, legs, and buttocks. Some scarring from old scabs Extremities: Peripheral pulses 2+ and symmetric bilateral radial and pedal. No peripheral edema. Nocyanosis, or clubbing A comprehensive diabetic foot exam was performed today on bare feet including visual inspection, monofilament, and assessment of pulses. decreased to monofilament in plantar aspect of toes and ball of foot, right slightly worse than left. Bilateral onychomycosis. No other ulcerative of trophic changes Psych/MSE: Patient on time for appointment, some inattention at times, but alerts when directly addressed loudly, maintains fair eye contact, establishes fair rapport, no evidence of hallucinations or delusions, impaired short-term memory, affect normal, mood euthymic, no suicidal or homicidal ideations, no increased psychomotor agitation No results for input(s): CHOL, TRIG, HDL, LDLCALC, LDLDIRECT in the last 44359 hours. No results for input(s): HGBA1C in the last 52157 hours. No results for input(s): SODIUM, POTASSIUM, CHLORIDE, CO2, BUN, CREATININE, GLUCOSE, CALCIUM, ALBUMIN, ALKPHOS, ALT, AST, TBIL, TPROT, EGFR in the last 97141 hours. No results for input(s): MICROALBCREA in the last 40087 hours. Does pt need updated EKG or Labs? yes (BMP q12 mo, lipid q6-12 mo, hgb A1c q3-6 mo, UA/Microalbumin Q1, baseline LFT prior to statin, EKGon file) ASSESSMENT & PLAN: ICD-10-CM 1. Type 2 diabetes mellitus with chronic kidney disease, without long-term current use of insulin, unspecified CKD stage E11.22 HM RISK ADJUSTED VISIT COMPREHENSIVE METABOLIC PANEL HEMOGLOBIN A1C LIPID PROFILE MICROALB/CREAT RATIO URINE RANDOM PANEL glipiZIDE (GLUCOTROL) 5 MG tablet Control uncertain. Check labs. Cont Rx. DM edu done. 2. Type 2 diabetes mellitus with diabetic neuropathy, without long-term current use of insulin E11.40 decreased to monofilament in bilateral feet. Monitor. Work on DM control 3. Compromised kidney function N28.9 HM RISK ADJUSTED VISIT CKD per family, degree unknown. Check labs. Limit NSAIDs 4. Hypothyroidism, adult E03.9 RISK ADJUSTED VISIT TSH T4 FREE levothyroxine (TIROSINT) 50 MCG capsule Continue levothyroxine. Check lab. Clinically euthyroid 5. Benign hypertension with chronic kidney disease I12.9 HM RISK ADJUSTED VISIT COMPREHENSIVE METABOLIC PANEL lisinopril (PRINIVIL; ZESTRIL) 10 MG tablet Controlled. Cont Rx 6. Alzheimer's dementia without behavioral disturbance, unspecified timing of dementia onset G30.9 RISK ADJUSTED VISIT F02.80 memantine (NAMENDA) 5 MG tablet Stable on namenda. Continue. Mostly short-term memory deficit. Deny significant sundowning 7. Seasonal allergic rhinitis, unspecified allergic rhinitis trigger J30.2 HM RISK ADJUSTED VISIT Loratadine 10 MG Controlled with claritin. Some itching 8. Skin lesion of scalp L98.9 AMB REFERRAL TO DERMATOLOGY several small scabs to scalp and back of neck. A few AK's also noted. Needs derm eval for possible underlying SCC. Referral given 9. Skin picking habit F42.4 several scabs in various stages of healing to scalp, arms, and backs. Continue local wound care. Discourage picking 10. Need for vaccination Z23 FLU VACCINE PRSV FREE INC ANTIGEN HIGH-DOSE PPSV23 - had ordered 07/25/12. Unclear if actually got See Goals in chart Health Maintenance Due Topic Date Due ??? DTAP/TDAP/TD VACCINES (1 - Tdap) 1956 ??? PNEUMOCOCCAL VACCINE (1 of 2 - PCV13) 2002 ??? INFLUENZA VACCINE (1) 10/21/2015 ??? ANNUAL MEDICARE WELLNESS VISIT 02/05/2016 ??? DIABETES EDUCATION Q1 YR ([id number]) 02/05/2016 ??? HGBA1C Q6 MO 02/05/2016 ??? LIPIDS Q1 YR 02/05/2016 ??? CR/MA Q1 YR 02/05/2016 ??? DIABETIC EYE EXAM Q1 YR 02/05/2016 defer Pneumonia vaccines until get records. Likely had PPSV23. Unsure about PCV13 Follow up in 3 months Or return to clinic sooner if persistent or worsening symptoms An After Visit Summary was printed and given to the patient. Rosana Herrera MD E DRIVER documented in this encounter Miscellaneous Notes * Addendum Note - Rosana Herrera MD - 02/10/2016 4:50 PM CSTAddended by: ROSANA HERRERA on: 02/10/2016 04:50 PM Modules accepted: Orders E DRIVER documented in this encounter Plan of Treatment Upcoming Encounters Date Type Department Care Team (Late st Contact Info) Description 04/07/2024 10:00 AM STAGE DRIVER Office Visit [address] [address] Evelin Blanco, HEAD HOUSEKEEPER-EPIC INTERFACE ANALYST [id number] [place] [address] 06/06/2024 2:00 PM CDT Office Visit [address] [address] Chris Aden MD [address] [place] [phone] documented as of this encounter Goals Goal Patient Goal Type Associated Problems Recent Progress Patient-Stated? Author Blood Pressure < 140/90 Blood Pressure 96/68(2023 2:34 PM STAGE DRIVER) Rere Vargas Note: Caring for Your [...] Related Tools, and click ? HBP Trackers.? 8-292-TIY-USA-1 or ( ) National Heart, Lung and Blood [place]: http://www.nhlbi.nih.gov/health/infoctr/index.htm Exercise 5X per week (30 min [...] diabetes: ? ? [place] Diabetes Association: www.diabetes.org 1-691-PMEWIPBZ ( ) ? ? [place] Diabetes Association-Support group line: www.professional.diabetes.org ? ? [place] Heart Association: www.heart.org or 3-990-ONZ-USA-1 ( ) [employer] MyPlate: www.choosemyplate.gov documented as of this encounter Procedures Procedure Name Priority Date/Time Associated Diagnosis Comments MICROALB/CREAT RATIO URINE RANDOM PANEL Routine 02/06/2016 8:44 AM STAGE DRIVER Type 2 diabetes mellitus with chronic kidney disease, without long-term current use of insulin, unspecified CKD stage (HCC) HEMOGLOBIN A1C Routine 02/06/2016 8:44 AM STAGE DRIVER Type 2 diabetes mellitus with chronic kidney disease, without long-term current use of insulin, unspecified CKD stage (HCC) COMPREHENSIVE METABOLIC PANEL Routine 02/06/2016 8:44 AM STAGE DRIVER Type 2 diabetes mellitus with chronic kidney disease, without long-term current use of insulin, 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 TSH Routine 02/06/2016 8:44 AM STAGE DRIVER Hypothyroidism, adult T4 FREE Routine 02/06/2016 8:44 AM STAGE DRIVER Hypothyroidism, adult LIPID PROFILE Routine 02/06/2016 8:44 AM STAGE DRIVER Type 2 diabetes mellitus with chronic kidney disease, without long-term current use of insulin, unspecified CKD stage (HCC) documented in this encounter Results * MICROALB/CREAT RATIO URINE RANDOM PANEL (02/06/2016 8:44 AM STAGE DRIVER) Creatinine Urine 84 mg/dL [facility] ACCOUNT BILL Microalbumin Urine 0.5 mg/dL [facility] ACCOUNT BILL Microalbumin/Crea tinine Ratio 6 <30 mg/g [facility] ACCOUNT BILL Urine URINE SPECIMEN OBTAINED BY CLEAN CATCH PROCEDURE / Unknown 02/06/2016 8:44 AM STAGE DRIVER 02/06/2016 Narrative Resulting Agency Comment [facility] [address] [facility] ??Ana LINARES [phone] Rosana Herrera MD LAB - URINE CHEMISTR Y ORDERABLES [facility] ACCOUNT BILL [address] [place] [address] * LIPID PROFILE (02/06/2016 8:44 AM STAGE DRIVER) Cholesterol 148 <200 mg/dL [facility] ACCOUNT BILL Triglycerides 111 <150 mg/dL [facility] ACCOUNT BILL HDL Cholesterol 48 >40 mg/dL [facility] ACCOUNT BILL VLDL Calculated 22 <=30 mg/dL [facility] ACCOUNT BILL LDL Calculated 78 <130 mg/dL [facility] ACCOUNT BILL Blood BLOOD SPECIMEN / Unknown 02/06/2016 8:44 AM STAGE DRIVER 02/06/2016 Narrative Resulting Agency Comment [facility] [address] Marleny Berry ??Ana LINARES [phone] Rosana Herrera MD LAB - CHEMISTRY MELYSSA CHAHAL [facility] ACCOUNT BILL [address] [place] [address] * (ABNORMAL) HEMOGLOBIN A1C (02/06/2016 8:44 AM STAGE DRIVER) Hemoglobin A1c 6.4(H) 4.2 - 6.3 % [facility] ACCOUNT BILL Comment:AVERAGE GLUCOSE MG/D L BLOOD 137 mg/dL Whole Blood BLOOD SPECIMEN WITH EDTA / Unknown 02/06/2016 8:44 AM STAGE DRIVER 02/06/2016 Narrative Resulting Agency Comment [facility] [address] Marleny Berry ??Ana LINARES [phone] Rosana Herrera MD LAB - CHEMISTRY MELYSSA CHAHAL [facility] ACCOUNT BILL [address] [place] [address] * T4 FREE (02/06/2016 8:44 AM STAGE DRIVER) T4 Free 1.07 0.65 - 1.34 ng/dL [facility] ACCOUNT BILL Blood BLOOD SPECIMEN / Unknown 02/06/2016 8:44 AM STAGE DRIVER 02/06/2016 Narrative Resulting Agency Comment [facility] [address] Marleny Berry ??Ana LINARES [phone] Rosana Herrera MD LAB - CHEMISTRY MELYSSA CHAHAL [facility] ACCOUNT BILL [address] [place] [address] * (ABNORMAL) TSH (02/06/2016 8:44 AM STAGE DRIVER) TSH 4.04(H) 0.358 - 3.740 uIU/mL [facility] ACCOUNT BILL Blood BLOOD SPECIMEN / Unknown 02/06/2016 8:44 AM STAGE DRIVER 02/06/2016 Narrative Resulting Agency Comment [facility] [address] [facility] ??Ana LINARES [phone] Rosana Herrera MD LAB - CHEMISTRY MELYSSA CHAHAL [facility] ACCOUNT BILL [address] [place] [address] * (ABNORMAL) COMPREHENSIVE METABOLIC PANEL (02/06/2016 8:44 AM STAGE DRIVER) Glucose 129(H) 74 - 106 mg/dL [facility] ACCOUNT BILL BUN 31(H) 7 - 21 mg/dL [facility] ACCOUNT BILL Creatinine 1.60(H) 0.50 - 1.30 mg/dL [facility] ACCOUNT BILL eGFR by MDRD 42 mL/min/1.7 3m2 [facility] ACCOUNT BILL eGFR by MDRD 51 mL/min/1.7 3m2 [facility] ACCOUNT BILL Sodium 142 136 - 145 mmol/L [facility] ACCOUNT BILL Potassium 5.2(H) 3.5 - 5.1 mmol/L [facility] ACCOUNT BILL Chloride 106 98 - 107 mmol/L [facility] ACCOUNT BILL CO2 30 22 - 31 mmol/L [facility] ACCOUNT BILL Calcium 9.3 8.5 - 10.1 mg/dL [facility] ACCOUNT BILL Protein Total 7.0 6.4 - 8.2 gm/dL [facility] ACCOUNT BILL Albumin 3.8 3.4 - 5.0 gm/dL [facility] ACCOUNT BILL Bilirubin Total 0.3 0.2 - 1.0 mg/dL [facility] ACCOUNT BILL Alkaline Phosphatase 60 38 - 126 U/L [facility] ACCOUNT BILL AST 8 5 - 40 U/L [facility] ACCOUNT BILL ALT 14 13 - 61 U/L [facility] ACCOUNT BILL Blood BLOOD SPECIMEN / Unknown 02/06/2016 8:44 AM STAGE DRIVER 02/06/2016 Narrative Resulting Agency Comment [facility] [address] [facility] ??Ana LINARES [phone] Rosana Herrera MD LAB - CHEMISTRY MELYSSA CHAHAL [facility] ACCOUNT BILL [address] [place] [address] documented in this encounter Visit Diagnoses Diagnosis Type 2 diabetes mellitus with chronic kidney disease, without long-term current use of insulin, unspecified CKD stage (HCC)- Primary Type 2 diabetes mellitus with diabetic neuropathy, without long-term current use of insulin (HCC) Compromised kidney function Unspecified disorder of kidney and ureter Hypothyroidism, adult Other specified acquired hypothyroidism Benign hypertension with chronic kidney disease Alzheimer's dementia without behavioral disturbance, unspecified timing of dementia onset (HCC) Seasonal allergic rhinitis, unspecified allergic rhinitis trigger Skin lesion of scalp Unspecified disorder of skin and subcutaneous tissue Skin picking habit Other and unspecified special symptom or syndrome, not elsewhere classified Need for vaccination Need for prophylactic vaccination and inoculation against unspecified single disease documented in this encounter
--- OUTSIDE RECORDS SUMMARY | 2024-04-03 01:03 | XMS_ITS | Encounter Summary ---
Author Organization [facility] Address [address] [place] [address] Care Team Providers Care Teaching Aide Name Role Phone Unavailable Primary Care Provider Unavailabl e Reason for Visit * Reason Onset Date Comments Pre-op Clearance 03/30/2016 Encounter Details Date Type Department Care Team (Late st Contact Info) Description 03/30/2016 Telephone [facility] - Family Medicine [address] [place], [place] [phone] Rosana Solo MD [address] [place] [phone] Pre-op Clearance Social History Tobacco Use Types Packs/Day Years [...] encounter Miscellaneous Notes * Telephone Encounter - Rere Kaufman - 03/30/2016 9:12 AM CST appt scheduled on 04/06/16 at 1:20 CLEANER * Telephone Encounter - Rosana Solo MD - 03/30/2016 8:31 AM CST Received fax from Dr. Andrew and Dr. Brito's office requesting pre-operative clearance for patient to have retina surgery under general anesthesia on 04/20/16. We need to bring pt in for a pre-op clearance examination before that. Given his age and medical conditions, will need updated labs and cardiac screening (EKG and screening questions at minimum). Unfortunately, we cannot obtain all the information needed of his last visit in January. As needs to schedule pre-op clearance exam with or Mayi in the next 1-2 weeks sothis can be done in advance of his planned surgery. Rosana Solo MD CLEANER documented in this encounter Plan of Treatment Upcoming Encounters Date Type Department Care Team (Late st Contact Info) Description 04/07/2024 10:00 AM AREA CLEANER Office Visit [facility] [id number] [place] [address] Evelin Blanco, MARKET RESEARCH INTERVIEWER-GENERAL PRODUCTION LABORER [id number] [place] [address] 06/06/2024 2:00 PM CDT Office Visit [facility] [id number] [place] [address] Chris Aden MD [id number] [place] [phone] documented as of this encounter Goals Goal Patient Goal Type Associated Problems Recent Progress Patient-Stated? Author Blood Pressure < 140/90 Blood Pressure 96/68(2023 2:34 PM AREA CLEANER) Rere Vargas Note: Caring for Your [...] Related Tools, and click ? HBP Trackers.? 4-592-AYU-USA-1 or ( ) National Heart, Lung and Blood [place]: http://www.nhlbi.nih.gov/health/infoctr/index.htm Exercise 5X per week (30 min per time) Exercise Rere Vargas Note: The Citizen Of [place] [...] Of [place] Diabetes Association: www.diabetes.org 5-555-ZLJGQMLJ ( ) ? ? [place] Diabetes Association-Support group line: www.professional.diabetes.org ? ? Citizen [place] Heart Association: www.heart.org or 0-675-VLQ-[place]-1 ( ) [employer] MyPlate: www.choosemyplate.gov documented as of this encounter Visit Diagnoses Not on filedocumented in this encounter
--- OUTSIDE RECORDS SUMMARY | 2024-04-03 01:03 | XMS_ITS | Encounter Summary ---
Author Organization [facility] Address [address] [place] [address] Care Team Providers Care French Cord Binder Name Role Phone Ricco Andrew MD Unavailable [phone] Reason for Visit * Reason Comments Refill Request Encounter Details Date Type Department Care Team (Late Contact Info) Description 07/27/2016 Refill [facility] - Family Medicine [address] [place] [address] Rosana Solo MD [facility] [address] Refill Request Social History Tobacco [...] * Telephone Encounter - Venancio Dupree - 07/27/2016 12:49 PM CDT Already filled. documented in this encounter Plan of Treatment Upcoming Encounters Date Type Department Care Team (Late Contact Info) Description 04/07/2024 10:00 AM AUTOMATIC BOW MAKER MACHINE TENDER Office Visit [facility] [address] [facility] [address] [place] [address] Evelin Blanco APRN-CNP [address] [address] 06/06/2024 2:00 PM CDT Office Visit [facility] [address] [place] [address] [place] [address] [facility] [address] [place] [address] documented as of this encounter Goals Goal Patient Goal Type Associated Problems Recent Progress Patient-Stated? Author Blood Pressure < 140/90 Blood Pressure 96/68(2023 2:34 PM AUTOMATIC BOW MAKER MACHINE TENDER) Rere Vargas Note: Caring for Your [...] Related Tools, and click ? HBP Trackers.? 2-604-IJC-USA-1 or ( ) National Heart, Lung and Blood [place]: http://www.nhlbi.nih.gov/health/infoctr/index.htm Blood Pressure < 140/90 Blood Pressure 96/68(2023 2:34 PM AUTOMATIC BOW MAKER MACHINE TENDER) Rere Vargsa Note: Caring for Your High Blood Pressure [...] Related Tools, and click ? HBP Trackers.? 2-912-RYY-USA-1 or ( ) National Heart, Lung and Blood [place]: http://www.nhlbi.nih.gov/health/infoctr/index.htm Exercise 5X per week (30 min per time) Exercise No Rere Kaufman Note: The [employer] [...] diabetes: ? ? [place] Diabetes Association: www.diabetes.org 3-125-BIFTQFKG ( ) ? ? [place] Diabetes Association-Support group line: www.professional.diabetes.org ? ? [place] Heart Association: www.heart.org or 7-420-OIW-USA-1 ( ) appAttach MyPlate: www.Activism.commyplate.gov Have labs drawn Lifestyle Rere Vargas Note: [...] on filedocumented in this encounter Care Teams French Cord Binder Relationship Specialty [place] [address] [address] Ophthalmology 04/06/16 documented as of this encounter
--- OUTSIDE RECORDS SUMMARY | 2024-04-03 01:05 | XMS_ITS ---
Author Organization [facility] Address [address] [place] [address] Care Team Providers Care Washer And Crusher Tender Name Role Phone Chris Aden Primary Care Provider AMI Mejia Unavailable [phone] Allergies Allergen (clinical drug ingredient) Drug/Non Drug Allergy documented on EMR Reaction Allergy Type Onset Date Status Septra Ds [sulfamethoxazole W-trimethoprim] (uncoded) Unknown Allergy Active ibuprofen Ibuprofen Unknown Drug Allergy Active Medications Medication SIG (Take, Route, Frequency, Duration) Notes Start Date End Date Status Memantine HCl 5 MG 1 tablet Orally Twic e a day Active Docusate Sodium 100 MG 1 capsule Orally 2 times daily Reasons: Constipation Active Loratadine 10 MG 1 tablet Orally Once a day Active glipiZIDE 5 MG 1 tablet Orally 2 ti mes daily, before breakfast and supper Active Levothyroxine Sodium 75 MCG 1 tablet in the morning on an empty stomach Orally Once a day Active Acetaminophen ER 650 MG 2 tablets as nee ded Orally every 8 hrs Active Polyethylene Glycol 3350 17 GM 1 packet mixed with 8 ounces of fluid Orally Once a day Active Encounters Encounter Location Date Provider Diagnosis [address] [address] 06/30/2023 AMI RIVERA Chronic kidney disease, stage 3a N18.31 ; Proteinuria, unspecified type R80.9 ; Anemia in chronic kidney disease D63.1 ; Iron deficiency anemia, unspecified iron deficiency anemia type D50.9 ; Renal osteodystrophy N25.0 ; Vitamin D deficiency, unspecified E55.9 ; Hypothyroidism, unspecified type E03.9 and Type 2 diabetes mellitus with diabetic chronic kidney disease E11.22 Assessments Encounter Date Diagnosis (ICD Code) Assessment Notes Treatment Notes Treatment Clinical Notes Section Notes 06/30/2023 Chronic kidney disease, stage 3a (ICD-10 - N18.31) 06/30/2023 Proteinuria, unspecified type (ICD-10 - R80.9) 06/30/2023 Anemia in chronic kidney disease (ICD-10 - D63.1) 06/30/2023 Iron deficiency anemia, unspecified iron deficiency anemia type (ICD-10 - D50.9) 06/30/2023 Renal osteodystrophy (ICD-10 - N25.0) 06/30/2023 Vitamin D deficiency, unspecified (ICD-10 - E55.9) 06/30/2023 Hypothyroidism, unspecified type (ICD-10 - E03.9) 06/30/2023 Type 2 diabetes mellitus with diabetic chronic kidney disease (ICD-10 - E11.22) Plan Of Treatment No Information Progress Notes * RYDER CABELLODOB:1935 ( 88 yo M)Acc No.[id number]:06/30/2023 Progress Notes Patient:?RYDER CABELLO Provider:?Ami Rivera MD :1935???Age:88 Y???Sex:Male Chano e:06/30/2023 Address:[address] [place] [address], [facility] Pcp:Chris Aden Subjective: * Chief Complaints: * ??? * Active Problem List N18.31 Chronic kidney disea se, stage 3a Modified On:06/17/2022/U Status:confirmed R80.9 Proteinuria, unspeci fied type Modified On:06/17/2022/U Status:confirmed D63.1 Anemia in chronic ki dney disease Modified On:06/17/2022/U Status:confirmed D50.9 Iron deficiency anem ia, unspecified iron deficiency anemia type Modified On:06/17/2022/U Status:confirmed N25.0 Renal osteodystrophy Modified On:06/17/2022/U Status:confirmed E55.9 Vitamin D deficiency , unspecified Modified On:06/17/2022/U Status:confirmed E03.9 Hypothyroidism, unsp ecified type Modified On:06/17/2022U Status:confirmed E11.22 Type 2 diabetes john itus with diabetic chronic kidney disease Modified On:06/17/2022U Status:confirmed I10 Essential hypertensi on Modified On:07/22/2023WU Status:confirmed * Medical History:?Hypertensio n, Type 2 diabetes mellitus, Dementia 2015, COVID 2021. * Medications:?Taking Polyethy ramsey Glycol 3350 17 GM Packet 1 packet mixed with 8 ounces of fluid Orally Once a day , Taking Acetaminophen ER 650 MG Tablet Extended Release 2 tablets as needed Orally every 8 hrs , Taking Docusate Sodium 100 MG Capsule 1 capsule Orally 2 times daily Reasons: Constipation , Taking Memantine HCl 5 MG Tablet 1 tablet Orally Twice a day , Taking Levothyroxine Sodium 75 MCG Tablet 1 tablet in the morning on an empty stomach Orally Once a day , Taking glipiZIDE 5 MG Tablet 1 tablet Orally 2 times daily, before breakfast and supper , Taking Loratadine 10 MG Tablet 1 tablet Orally Once a day , Medication List reviewed and reconciled with the patient * Allergies:?Ibuprofen, Septra Ds [sulfamethoxazole W-trimethoprim]. Objective: * Vitals:? Assessment: * Assessment: 1.?Chronic kidney disease, s tage 3a - N18.31???2.?Proteinuria, unspecified type - R80.9???3.?Anemia in chronic kidney disease - D63.1???4.?Iron deficiency anemia, unspecified iron deficiency anemia type - D50.9???5. 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 Plan: * Treatment: * * Electronic signature of SAY RIVERA MD on 04/03/2024 at 01:05 AM PAPER SORTER Sign off status: Pending * Provider:?Ami Rivera MD Date:?06/29 Generated for Kelly aguiar/Starr/Wanitting on:?04/03/2024 01:05 AM PAPER SORTER
--- OUTSIDE RECORDS SUMMARY | 2024-04-03 01:05 | XMS_ITS | Patient Health Record ---
Author Organization [facility] Address [address] [place] [address] Care Team Providers Care Assistant Food Service Director Name Role Phone Chris Aden Primary Care Provider AMI Mejia Unavailable [phone] VENKAT HART Unavailable [phone] Allergies Allergen (clinical drug ingredient) Drug/Non Drug Allergy documented on EMR Reaction Allergy Type Onset Date Status Septra Ds [sulfamethoxazole W-trimethoprim] (uncoded) Unknown Allergy Active ibuprofen Ibuprofen Unknown Drug Allergy Active Reason For Referral No Information Medications Medication SIG (Take, Route, Frequency, Duration) Notes Start Date End Date Status Docusate Sodium 100 MG 1 capsule Orally 2 times daily Reasons: Constipation Active Memantine HCl 5 MG 1 tablet Orally Twic e a day Active Levothyroxine Sodium 75 MCG 1 tablet in the morning on an empty stomach Orally Once a day Active glipiZIDE 5 MG 1 tablet Orally 2 ti mes daily, before breakfast and supper Active Loratadine 10 MG 1 tablet Orally Once a day Active Polyethylene Glycol 3350 17 GM 1 packet mixed with 8 ounces of fluid Orally Once a day Active Acetaminophen ER 650 MG 2 tablets as nee ded Orally every 8 hrs Active Problems Problem Type SNOMED Code ICD Code Onset Dates Problem Status W/U Status Risk Notes Problem [id number] Anemia in chroni c kidney disease (D63.1) Active confirmed Problem 98695042 Type 2 diabetes mellitus with diabetic chronic kidney disease (E11.22) Active confirmed Problem 13190311 Vitamin D deficiency, unspecified (E55.9) Active confirmed Problem 41203602 Renal osteodystrophy (N25.0) Active confirmed Problem 09709970 Essential hypertension (I10) Active confirmed Problem 421984842 Chronic kidney disease, stage 3a (N18.31) Active confirmed Problem 03839573 Proteinuria, unspecified type (R80.9) Active confirmed Problem 09497800 Hypothyroidism, unspecified type (E03.9) Active confirmed Problem 44973249 Iron deficiency anemia, unspecified iron deficiency anemia type (D50.9) Active confirmed Vital Signs Heart Rate 86 /min 07/22/2023 Respiratory Rate 18 /min 07/22/2023 Blood pressure diastolic 40 mm Hg 07/22/2023 Weight-kg 65.77 kg 07/22/2023 Height 69 in 07/22/2023 Blood pressure systolic 100 mm Hg 07/22/2023 Weight 145 lbs 07/22/2023 BMI 21.41 kg/m2 07/22/2023 Encounters Encounter Location Date Provider Diagnosis [facility] [address] [place] [address] 07/22/2023 VENKAT HART Chronic kidney disease, stage 3a N18.31 ; Proteinuria, unspecified type R80.9 ; Anemia in chronic kidney disease D63.1 ; Iron deficiency anemia, unspecified iron deficiency anemia type D50.9 ; Renal osteodystrophy N25.0 ; Vitamin D deficiency, unspecified E55.9 ; Hypothyroidism, unspecified type E03.9 ; Type 2 diabetes mellitus with diabetic chronic kidney disease E11.22 ; Hyponatremia E87.1 and Essential hypertension I10 Assessments Encounter Date Diagnosis (ICD Code) Assessment Notes Treatment Notes Treatment Clinical Notes Section Notes 07/22/2023 Chronic kidney disease, stage 3a (ICD-10 - N18.31) Creatinine stable.Monitor creatinine periodically 07/22/2023 Proteinuria, unspecified type (ICD-10 - R80.9) 07/22/2023 Anemia in chronic kidney disease (ICD-10 - D63.1) 07/22/2023 Iron deficiency anemia, unspecified iron deficiency anemia type (ICD-10 - D50.9) 07/22/2023 Renal osteodystrophy (ICD-10 - N25.0) 07/22/2023 Vitamin D deficiency, unspecified (ICD-10 - E55.9) 07/22/2023 Hypothyroidism, unspecified type (ICD-10 - E03.9) 07/22/2023 Type 2 diabetes mellitus with diabetic chronic kidney disease (ICD-10 - E11.22) 07/22/2023 Hyponatremia (ICD-10 - E87.1) Recommend decreasing free water intake and substitue with fluids containing salt in them. 07/22/2023 Essential hypertension (ICD-10 - I10) continue to observe off antihypertensives Plan Of Treatment Pending Test Test Name Order Date RENAL FUNCTION PANEL (71053) 07/22/2023 Future Test Test Name Order Date *Renal Ultrasound w/ PVR (Post-Void Resi dual) 05/05/2022 ANCA Panel-[id number] 05/05/2022 MELI w/Reflex if Positive-[id number] 05/05/19 Lipid Panel-[id number] 05/05/2022 Renal Panel [id number] 05/05/2022 C3+C4+CompT-[id number] 05/05/2022 TITO+PE,Ur,24Hr,with TITO Scan-[id number] 04/22 Vitamin D, 08-Paceqjo-180581 05/05/2022 Ferritin-134606 05/05/2022 Iron and TIBC-937445 05/05/2022 Urinalysis, Complete-267582 05/05/2022 TITO and PE, Serum 05/05/2022 Vitamin B12 and Folate-79523 05/05/2022 *2 D Echocardiogram with Doppler 023 COMPREHENSIVE METABOLIC PANEL (20813) CBC With Differential/Platelet-[id number] Comp. Metabolic Panel [id number] 2022 Insurance Providers Payer Name Payer Address Payer Phone Subscriber Number Group Number Insured Name Patient Relationship to Insured Coverage Start Date Coverage End Date [facility] [employer] [address] [address] [place] [address] [id number] RYDER CABELLO Self - patient is the insured Medical (General) History Medical History History ICD Code Hypertension Type 2 diabetes mellitus Dementia 2015 COVID 2021
--- OUTSIDE RECORDS SUMMARY | 2024-04-03 01:05 | XMS_ITS ---
Author Organization [facility] Address [address] [address] Care Team Providers Care Jewel Grinder Name Role Phone Chris Aden Primary Care Provider AMI Mejia Unavailable [phone] Allergies Allergen (clinical drug ingredient) Drug/Non Drug Allergy documented on EMR Reaction Allergy Type Onset Date Status Septra Ds [sulfamethoxazole W-trimethoprim] (uncoded) Unknown Allergy Active ibuprofen Ibuprofen Unknown Drug Allergy Active Medications Medication SIG (Take, Route, Frequency, Duration) Notes Start Date End Date Status Levothyroxine Sodium 75 MCG 1 tablet in [...] nee ded Orally every 8 hrs Active Docusate Sodium 100 MG 1 capsule Orally 2 times daily Reasons: Constipation Active Memantine HCl 5 MG 1 tablet Orally Twic e a day Active Encounters Encounter Location Date Provider Diagnosis [address] [address] 11/23/2023 AMI RIVERA Chronic kidney disease, stage 3a N18.31 ; Proteinuria, unspecified type R80.9 ; Anemia in chronic kidney disease D63.1 ; Iron deficiency anemia, unspecified iron deficiency anemia type D50.9 ; Renal osteodystrophy N25.0 ; Vitamin D deficiency, unspecified E55.9 ; Hypothyroidism, unspecified type E03.9 ; Type 2 diabetes mellitus with diabetic chronic kidney disease E11.22 and Essential hypertension I10 Assessments Encounter Date Diagnosis (ICD Code) Assessment Notes Treatment Notes Treatment Clinical Notes Section Notes 11/23/2023 Chronic kidney disease, stage 3a (ICD-10 - N18.31) 11/23/2023 Proteinuria, unspecified type (ICD-10 - R80.9) 11/23/2023 Anemia in chronic kidney disease (ICD-10 - D63.1) 11/23/2023 Iron deficiency anemia, unspecified iron deficiency anemia type (ICD-10 - D50.9) 11/23/2023 Renal osteodystrophy (ICD-10 - N25.0) 11/23/2023 Vitamin D deficiency, unspecified (ICD-10 - E55.9) 11/23/2023 Hypothyroidism, unspecified type (ICD-10 - E03.9) 11/23/2023 Type 2 diabetes mellitus with diabetic chronic kidney disease (ICD-10 - E11.22) 11/23/2023 Essential hypertension (ICD-10 - I10) Plan Of Treatment No Information Progress Notes * RYDER CABELLODOB:1935 ( 88 yo M)Acc No.[id number]:11/23/2023 Progress Notes Patient:?IRINEORYDER Provider:?Ami Rivera MD :1935???Age:88 Y???Sex:Male Chano e:11/23/2023 Address:[address] [place] [address] , [facility] Pcp:Chris Aden Subjective: * Chief Complaints: * ??? * Active Problem List N18.31 Chronic kidney disea se, stage 3a Modified On:06/17/2022/U Status:confirmed R80.9 Proteinuria, unspeci fied type Modified On:06/17/2022/U Status:confirmed D63.1 Anemia in chronic ki dney disease Modified On:06/17/2022/U Status:confirmed D50.9 Iron deficiency anem ia, unspecified iron deficiency anemia type Modified On:06/17/2022U Status:confirmed N25.0 Renal osteodystrophy Modified On:06/17/2022/U Status:confirmed E55.9 Vitamin D deficiency , unspecified Modified On:06/17/2022U Status:confirmed E03.9 Hypothyroidism, unsp ecified type Modified On:06/17/2022U Status:confirmed E11.22 Type 2 diabetes john itus with diabetic chronic kidney disease Modified On:06/17/2022U Status:confirmed I10 Essential hypertensi on Modified On:07/22/2023U Status:confirmed * Medical History:?Hypertensio n, Type 2 [...] 1.?Chronic kidney disease, s tage 3a - N18.31 (Primary)???2.?Proteinuria, unspecified type - R80.9???3.?Anemia in chronic kidney disease - D63.1???4.?Iron deficiency anemia, unspecified iron deficiency anemia type - D50.9?? 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 Plan: * Treatment: * * Electronic signature of SAY RIVERA MD on 04/03/2024 at 01:04 AM CARVER HAND Sign off status: Pending * Provider:?Ami Rivera MD Date:?11/22 Generated for Kelly aguiar/Starr/Jessica on:?04/03/2024 01:04 AM CARVER HAND
--- OUTSIDE RECORDS SUMMARY | 2024-04-03 01:05 | XMS_ITS ---
Author Organization [facility] Address [address] [place] [id number] Care Team Providers Care Landscape Technician Name Role Phone Chris Aden Primary Care Provider AMI Mejia Unavailable [phone] VENKAT HART Unavailable [phone] Allergies Allergen (clinical drug ingredient) Drug/Non Drug Allergy documented on EMR Reaction Allergy Type Onset Date Status Septra Ds [sulfamethoxazole W-trimethoprim] (uncoded) Unknown Allergy Active ibuprofen Ibuprofen Unknown Drug Allergy Active Medications Medication SIG (Take, Route, Frequency, Duration) Notes Start Date End Date Status Polyethylene Glycol 3350 17 GM 1 packet mixed with 8 ounces of fluid Orally Once a day Active Loratadine 10 MG 1 tablet Orally Once a day Active glipiZIDE 5 MG 1 tablet Orally 2 ti mes daily, before breakfast and supper Active Levothyroxine Sodium 75 MCG 1 tablet in the morning on an empty stomach Orally Once a day Active Memantine HCl 5 MG 1 tablet Orally Twic e a day Active Docusate Sodium 100 MG 1 capsule Orally 2 times daily Reasons: Constipation Active Acetaminophen ER 650 MG 2 tablets as nee ded Orally every 8 hrs Active Problems Problem Type SNOMED Code ICD Code Onset Dates Problem Status W/U Status Risk Notes Problem [id number] Essential hypertension (I10) Active confirmed Vital Signs Blood pressure systolic 100 mm Hg 07/22/19 24 Blood pressure diastolic 40 mm Hg 024 Heart Rate 86 /min 07/22/2023 Respiratory Rate 18 /min 07/22/2023 Height 69 in 07/22/2023 Weight 145 lbs 07/22/2023 BMI 21.41 kg/m2 07/22/2023 Weight-kg 65.77 kg 07/22/2023 Encounters Encounter Location Date [facility] [id number] [id number] 07/22/2023 VENKAT HART Chronic kidney disease, stage [...] to observe off antihypertensives Plan Of Treatment Treatment Notes Assessment Notes Chronic kidney disease, stage 3a Creatin ine stable.Monitor creatinine periodically Hyponatremia Recommend decreasing free water intake and substitue with fluids containing salt in them. Essential hypertension continue to obser ve off antihypertensives Pending Test Test Name Order Date RENAL FUNCTION PANEL (24413) 07/22/2023 Next Appt Details Follow Up: 4 Months, Reason: Progress Notes * IRINEO, PERRYDOB:1935 ( 88 yo M)Acc No.[id number]:07/22/2023 Progress Notes Patient:?RYDER CABELLO Provider:?VENKAT HART MD :1935???Age:88 Y???Sex:Male [place]ano e:07/22/2023 Address:[address] [place] [address] , [id number] Pcp:Chris Aden Subjective: * Chief Complaints: * ??? * HPI: ???HPI:? 06/17/2022-patient here for follow-up. He was last seen here at the initial evaluation in April. All labs discussed. Work-up shows renal disease with GFR at 48 mm and per minute, creatinine 1.4. Work-up negative for monoclonal gammopathy and vasculitis. Discussed with patient. Encouraged keeping up with his fluid intake. 05/05/2022-patient here for evaluation of abnormal renal function. ?07/22/23f:88 yom with ckd,htn(not on any antihypertensives),T2d,Dementia who was accompanied by his 2 daughters.He has been doing fine and his bp has been gerardo although not checked frequently.He eats well but has been drinking a lot of water.Creatinine is down to 1.2 from 1.4 but sodium is down to 129 from being normal as well. ?87-year-old with medical history significant for hypertension, type 2 diabetes mellitus, COVID in 2021, dementia 2016 noted to have abnormal renal function. Daughter accompanies him on today's visit. No known history of NSAID use. Patient does have history of heavy tobacco use in the past. He also used to be a heavy alcoholic. * Medical History:? * Surgical History:? * Hospitalization/Major Diagno stic Procedure:? * Medications:?TakingPolyethyl sb Glycol 3350 17 GM Packet 1 packet mixed with 8 ounces of fluid Orally Once a day Acetaminophen ER 650 MG Tablet Extended Release 2 tablets as needed Orally every 8 hrs Docusate Sodium 100 MG Capsule 1 capsule Orally 2 times daily Reasons: Constipation Memantine HCl 5 MG Tablet 1 tablet Orally Twice a day Levothyroxine Sodium 75 MCG Tablet 1 tablet in the morning on an empty stomach Orally Once a day glipiZIDE 5 MG Tablet 1 tablet Orally 2 times daily, before breakfast and supper Loratadine 10 MG Tablet 1 tablet Orally Once a day Medication List reviewed and reconciled with the patientTaking Polyethylene Glycol 3350 17 GM Packet 1 packet mixed with 8 ounces of fluid Orally Once a day Taking Acetaminophen ER 650 MG Tablet Extended Release 2 tablets as needed Orally every 8 hrs Taking Docusate Sodium 100 MG Capsule 1 capsule Orally 2 times daily Reasons: Constipation Taking Memantine HCl 5 MG Tablet 1 tablet Orally Twice a day Taking Levothyroxine Sodium 75 MCG Tablet 1 tablet in the morning on an empty stomach Orally Once a day Taking glipiZIDE 5 MG Tablet 1 tablet Orally 2 times daily, before breakfast and supper Taking Loratadine 10 MG Tablet 1 tablet Orally Once a day Medication List reviewed and reconciled with the patient * Allergies:?IbuprofenSeptra D s [sulfamethoxazole W-trimethoprim]no[Allergies Verified] Objective: * Vitals:?Ht (ft'in): 5'9, Ht: 69 in, Wt: 145 lbs, BMI: 21.41 Index, BP: 100/40 mm Hg, HR: 86 /min, RR: 18 /min, Wt-k.77 kg, Body Surface Area: 1.79. * Examination: ???General Examination: ?General appearance:?alert, pleasant, well-nourished and in no acute distress.?Heart:?regular rate and rhythm without murmurs, gallops, clicks or rubs.?Lungs:?clear to auscultation bilaterally, with good air movement and no rales, rhonchi or wheezes.?Extremities:?normal extremity with no clubbing, cyanosis or edema.? Assessment: * Assessment: 1.?Chronic kidney disease, s tage 3a - N18.31 (Primary)?2.?Proteinuria, unspecified type - R80.9?3.?Anemia in chronic kidney disease - D63.1?4.?Iron deficiency anemia, unspecified iron deficiency anemia type - D50.9?5.?Renal osteodystrophy - N25.0?6. 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 Plan: * Treatment: 2.?Hyponatremia? Notes: Recommend decreasing free water intake and substitue with fluids containing salt in them. ?? 3.?Essential hypertension? Notes: continue to observe off antihypertensives?? * Procedure Codes:? * Follow Up:?4 Months * * Sign off status: Completed true * Provider:?VENKAT HART MD Date:?07/21 Generated for Kelly aguiar/Starr/Wanitting on:?04/03/2024 01:04 AM [employer] History and Physical Notes * HPI (History of Present Illness) Category Sub-Category Detail Notes Category Not es HPI 06/17/2022-patient here for follow-up. He was last seen here at the initial evaluation in April. All labs discussed. Work-up shows renal disease with GFR at 48 mm and per minute, creatinine 1.4. Work-up negative for monoclonal gammopathy and vasculitis. Discussed with patient. Encouraged keeping up with his fluid intake. 05/05/2022-patient here for evaluation of abnormal renal function. 07/22/23f:88 yom with ckd,htn(not on any antihypertensives),T2d,Dementia who was accompanied by his 2 daughters.He has been doing fine and his bp has been gerardo although not checked frequently.He eats well but has been drinking a lot of water.Creatinine is down to 1.2 from 1.4 but sodium is down to 129 from being normal as well. 87-year-old with medical history significant for hypertension, type 2 diabetes mellitus, COVID in 2021, dementia 2016 noted to have abnormal renal function. Daughter accompanies him on today's visit. No known history of NSAID use. Patient does have history of heavy tobacco use in the past. He also used to be a heavy alcoholic. Examination Category Sub-Category Detail Notes Category Not es General Examination General appearance: alert, p leasant, well-nourished and in no acute distress Heart: regular rate and rhy thm without murmurs, gallops, clicks or rubs Lungs: clear to auscultatio n bilaterally, with good air movement and no rales, rhonchi or wheezes Extremities: normal extremity wit h no clubbing, cyanosis or edema
--- OUTSIDE RECORDS SUMMARY | 2024-04-03 02:24 | XMS_ITS | Clinical Summary ---
Author Organization [facility] Address [address] [place] [address] Care Team Providers Care Plant Operations Worker Name Role Phone Ricco Andrew MD Unavailable [phone] Fawn Ramon DPM Unavailable [phone] Chris Aden MD Primary Care Provider Chris Aden MD Unavailable Source Comments [facility],non-owned Affiliates and Associated Physician Practices is amultiple site organization consisting of ambulatory clinics and hospital sitesin [place], [place], [place] and [place]. This disclosure is being madepursuant to the Care Everywhere program and may not contain all information available regarding this patient. Last updated 17.[facility] Allergies Active Allergy Reactions Criticality Noted Date [...] Type Department Care Team Description 03/30/2024 Telephone [facility] [id number] [place] [address] [place] [address] Chris Aden MD Home Health; Order 03/30/2024 Refill [facility] [id number] [place] [address] [place] [address] Chris Aden MD Refill Request 03/09/2024 Telephone [facility] [id number] [place] [address] [place] [address] Chris Aden MD SHAKING; Fatigue; Slurred Speech; Chest Pain 03/06/2024 2:30 PM DISPATCHER [facility] Office Visit [address] [address] Chris Aden MD Slow transit constipation (Primary Dx); Type 2 diabetes mellitus with diabetic neuropathy, unspecified whether half-way insulin use (HCC); Cellulitis of face; Dermatitis; [...] disturbance (HCC) 02/28/2024 Travel 02/28/2024 Transitional Care [facility] - Care Coordination [address] [place] [address] 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 02/23/2024 2:47 PM DISPATCHER [facility] - 02/26/2024 4:21 PM DISPATCHER T[facility] Hospital Encounter [address] [address] [place] [phone] Britton Llamas, DO Datar, MD Jessica Lazcano Imran A, MD Internal Medicine Discharge Disposition: Home or Self Care 02/23/2024 2:00 PM DISPATCHER [facility] Office Visit [address] [address] Evelin Blanco, JOSETTE-DIETETICS DIRECTOR Hypotension, unspecified hypotension type (Primary Dx) 02/23/2024 Travel 02/21/[address] [address] Chris Aden MD Record Request 02/18/[address] [address] Chris Aden MD Refill Request 02/14/[address] [address] Chris Aden MD Update; Pneumonia 02/11/2024 Orders Only [address] [address] Chris Aden MD 02/09/2024 1:15 PM DISPATCHER [facility] Clinical Support [address] [address] Need for vaccination ; Need for prophylactic vaccination and inoculation against influenza 02/09/2024 11:30 AM DISPATCHER [facility] Office Visit [address] [place] [address] Chris Aden MD Abnormal gait (Primary Dx); [...] dementia without behavioral disturbance (HCC) 01/25/[address] [place], [place] [phone] Chris Aden MD Injury Elbow 01/08/[address] [place] [address] Chris Aden MD Refill Request from Last [...] Recorded Patient Health Questionnaire-2 Score 2 03/06/2024 [facility] of Occupat ional Health - Occupational Stress [...] any time in the past [address] [facility], were you homeless or living in a fdc (including now)? No 02/24/2024 Sex and Gender Information Value Date Recorded Sex Assigned at Male 01/22/2023 1:45 PM CDT Gender Identity Male 01/22/2023 1:45 PM CDT Sexual Orientation Straight 01/22/2023 1: 45 PM CDT Last Filed Vital Signs Vital Sign Reading Time Taken Comments Blood Pressure 96/68 03/06/2024 2:34 PM DISPATCHER T[facility] Pulse 70 03/06/2024 2:34 PM DISPATCHER TU[facility] Temperature 36.7 ??C (98 ??F) 03/06/2024 2:34 PM DISPATCHER TUGBO[facility] Respiratory Rate 18 03/06/2024 2:34 PM DISPATCHER TU[facility] Oxygen Saturation 96% 03/06/2024 2:34 PM DISPATCHER TUGBO[facility] Inhaled Oxygen Concentration - - Weight 65.8 kg (145 lb) 02/24/2024 12:31 AM DISPATCHER TUGBO[facility] Height 170.2 cm (5' 7) 03/06/2024 2:34 PM DISPATCHER TU[facility] Body Mass Index 22.71 02/24/2024 12:31 AM DISPATCHER TU[facility] Plan of Treatment Upcoming Encounters Date Type Department Care Team (Late st Contact Info) Description 04/07/2024 10:00 AM DISPATCHER [facility] Office Visit [facility] [phone] [facility] [address] [place] [address] Evelin Blanco, ASSOCIATE PROFESSOR OF EDUCATION-DIETETICS DIRECTOR [phone] [facility] [address] [place] [address] 06/06/2024 2:00 PM CDT Office Visit [facility] [address] [facility] [address] [place] [address] [place] [address] [place] [address] Health Maintenance Due Date Last [...] < 140/90 Blood Pressure 96/68(2023 2:34 PM DISPATCHER TUGBOAT) Rere Vargas Note: Caring for Your High [...] Related Tools, and click ? HBP Trackers.? 8-843-PZR-USA-1 or ( ) National Heart, Lung and Blood Humphrey: http://www.nhlbi.nih.gov/health/infoctr/index.htm Blood Pressure < 140/90 Blood Pressure 96/68(2023 2:34 PM DISPATCHER TUGBOAT) Rere Vargas Note: Caring for Your High [...] Related Tools, and click ? HBP Trackers.? 0-490-DGK-USA-1 or ( ) National Heart, Lung and Blood Humphrey: http://www.nhlbi.nih.gov/health/infoctr/index.htm Blood Pressure < 140/90 Blood Pressure 96/68(2023 2:34 PM DISPATCHER TUGBOAT) Cassie Parks Note: Caring for Your High [...] Related Tools, and click ? HBP Trackers.? 1-462-GGH-USA-1 or ( ) National Heart, Lung and Blood Humphrey: http://www.nhlbi.nih.gov/health/infoctr/index.htm Exercise 5X per week (30 min per time) Exercise Rere Vargas Note: [employer] [place] [employer] [...] ? ? [place] [employer]: www.diabetes.org 6-035-UKOPYQPU ( ) ? ? [place] [employer]-Support group line: www.professional.diabetes.org ? ? [place] [employer]: www.heart.org or 1-474-YVO-USA-1 ( ) [facility] MyPlate: www.Omni Bio Pharmaceuticalmyplate.gov Have labs drawn Lifestyle Rere Vargas Note: [...] POINT OF CARE Routine 02/25/2024 6:04 PM DISPATCHER TUGBO[facility] SARS-COV-2 (COVID-19) RAPID Routine 02/25/2024 3:12 PM DISPATCHER TUGBO[facility] Wrist arthritis GLUCOSE - POINT OF CARE Routine 02/25/2024 12:05 PM DISPATCHER TU[facility] BASIC METABOLIC PANEL (CALCIUM TOTAL) AM Draw 02/25/2024 4:14 AM DISPATCHER TUGBOAT Weight loss, abnormal CARDIAC EKG ORDER 02/24/2024 6:3 5 PM DISPATCHER T[facility] GLUCOSE - POINT OF CARE Routine 02/24/2024 5:59 PM DISPATCHER T[facility] URINALYSIS REFLEX MICROSCOPIC REFLEX CULTURE STAT 02/24/2024 5:43 AM DISPATCHER T[facility] TSH REFLEX FREE T4 Routine 02/24/2024 5: 38 AM DISPATCHER T[facility] Hypotension, unspecified hypotension type Adult failure to thrive Volume depletion MAGNESIUM BLOOD Routine 02/24/2024 5:38 AM DISPATCHER TU[facility]OAT Hypotension, unspecified hypotension type Adult failure to thrive Volume depletion CBC W/O DIFFERENTIAL Routine 02/24/2024 5:38 AM DISPATCHER T[facility] Hypotension, unspecified hypotension type Adult failure to thrive Volume depletion BASIC METABOLIC PANEL (CALCIUM TOTAL) Routine 02/24/2024 5:38 AM DISPATCHER T[facility] Hypotension, unspecified hypotension type Adult failure to thrive Volume depletion LACTIC ACID BLOOD REFLEX TO REPEAT Timed STAT 02/24/2024 5:38 AM DISPATCHER T[facility] TROPONIN-I HIGH SENSITIVE REFLEX 1HOUR Timed 02/23/2024 5:20 PM DISPATCHER T[facility] XR CHEST 1VW PORTABLE STAT 02/23/2024 5:01 PM DISPATCHER TUGBOAT Hypotension, unspecified hypotension type CBC W AUTO DIFFERENTIAL STAT 02/23/2024 4:51 PM DISPATCHER [facility] TROPONIN-I HIGH SENSITIVE BASELINE + 1HR STAT 02/23/2024 4:10 PM DISPATCHER [facility] LIPASE BLOOD STAT 02/23/2024 4:10 PM DISPATCHER [facility] MAGNESIUM BLOOD STAT 02/23/2024 4:10 PM DISPATCHER T[facility] LACTIC ACID BLOOD REFLEX TO REPEAT STAT 02/23/2024 4:10 PM DISPATCHER T[facility] COMPREHENSIVE METABOLIC PANEL STAT 02/23/2024 4:10 PM DISPATCHER TUGBO[facility] EKG 12-LEAD STAT 02/23/2024 3:30 PM DISPATCHER TUGBOAT Hypotension, unspecified hypotension type HEMOGLOBIN A1C - POINT OF CARE (AMB) Routine 12/02/2023 2:32 PM CDT Type 2 diabetes mellitus with hyperglycemia, without long-term current use of insulin (HCC) DIABETES EYE EXAM Routine 04/04/2020 from Last 3 Months or Most Recently Relevant to Health Maintenance Results * (ABNORMAL) GLUCOSE - POINT OF CARE (02/25/2024 6:04 PM DISPATCHER TUGBO[facility]) Only the most recent of3 resultswithin the time period is included. Glucose WB/POC 225(H) 70 - 99 mg/dL 02/25/2024 10:00 PM DISPATCHER [facility]OAT [facility] Specimen Type Cap Fingerstick 2023 10:00 PM DISPATCHER TU[facility] Blood BLOOD SPECIMEN / Unknown 02/25/2024 6:04 PM DISPATCHER TU[facility] 02/25/2024 10:00 PM DISPATCHER T[facility] Osiel Lopez MD LAB - POINT OF CARE ORDERABLES [facility] [address] [place] [address] * SARS-COV-2 (COVID-19) RAPID (02/25/2024 3:12 PM DISPATCHER TUGBO[facility]) COVID-19 PCR Not detected Not detected 02/25/20 24 4:02 PM DISPATCHER TUGBOAT [facility] Microbiology SPECIMEN FROM NASOPHARYNGEAL STRUCTURE / Unknown Collection / Unknown 02/25/2024 3:12 PM DISPATCHER TUGBOAT 02/25/2024 3:27 PM DISPATCHER TUGBOAT Narrative [facility] - 02/25/2024 4:02 PM DISPATCHER TUGBOAT The [employer] Xpert Xpress SARS-COV-2 has been authorized by [...] Lopez MD LAB - MICROBIOLOGY O RDERABLES [facility] [address] [place] [address] * (ABNORMAL) BASIC METABOLIC PANEL (CALCIUM TOTAL) (02/25/2024 4:14 AM DISPATCHER TUGBOAT) Only the most recent of2 resultswithin the time period is included. Pathologist [facility] Glucose 192(H) 70 - 99 mg/dL 02/25/2024 6:02 AM [facility] Sodium 132(L) 136 - 145 mmol/L 02/25/2024 6:02 AM [facility] Potassium 4.2 3.5 - 5.1 mmol/L 02/25/2024 6:02 AM [facility] Chloride 104 98 - 107 mmol/L 02/25/2024 6:02 AM [facility] CO2 20(L) 22 - 29 mmol/L 02/25/2024 6:02 AM [facility] Calcium 8.3(L) 8.4 - 10.4 mg/dL 02/25/2024 6:02 AM [facility] Anion Gap 8 6 - 16 mmol/L 02/25/2024 6:02 AM [facility] BUN 12 7 - 26 mg/dL 02/25/2024 6:02 AM [facility] Creatinine 0.87 0.72 - 1.25 mg/dL 02/25/2024 6:02 AM [facility] eGFR by CKD-EPI 84(L) >=90 mL/min/1.7 3 m2 02/25/2024 6:02 AM [facility] Blood BLOOD SPECIMEN / Unknown Venipuncture / Unknown 02/25/2024 4:14 AM DISPATCHER TUGBOAT 02/25/2024 5:43 AM DISPATCHER T[facility] Osiel Lopez MD LAB - CHEMISTRY ORDE TIRSO [facility] [address] [place] [address] * CARDIAC EKG ORDER (02/24/2024 6:35 PM DISPATCHER TUGBOAT) Narrative 02/24/2024 6:35 PM DISPATCHER TUGBOAT Ordered by an unspecified provider. Scanned Document CARDIAC SERVICES ORD ERABLES * (ABNORMAL) URINALYSIS REFLEX MICROSCOPIC REFLEX CULTURE (02/24/2024 5:43 AM DISPATCHER TUGBOAT) Color UA Yellow Yellow, Straw 02/24/2024 6:53 AM [facility] Clarity UA Clear Clear 02/24/2024 6:53 AM [facility] Glucose UA Normal Normal 02/24/2024 6:53 AM [facility] Bilirubin UA Negative Negative 02/24/2024 6:53 AM [facility] Ketone UA Negative Negative 02/24/2024 6:53 AM [facility] Specific [place] UA 1.023 1.005 - 1.030 02/24/2024 6:53 AM DISPATCHER [facility] Blood UA Negative Negative 02/24/2024 6:53 AM DISPATCHER [facility] pH UA 5.5 5.0 - 9.0 pH 02/24/2024 6:53 AM [facility] Protein UA Trace(A) Negative 02/24/2024 6:53 AM DISPATCHER T[facility]GBOAT [facility] Urobilinogen UA Normal Normal mg/dL 024 6:53 AM DISPATCHER T[facility]GBOAT [facility] Nitrite UA Negative Negative 02/24/2024 6:53 AM DISPATCHER T[facility] Leukocyte UA Negative Negative 02/24/2024 6:53 AM DISPATCHER T[facility] Urine URINE SPECIMEN OBTAINED BY CLEAN CATCH PROCEDURE / Unknown Collection / Unknown 02/24/2024 5:43 AM DISPATCHER T[facility] 02/24/2024 6:44 AM DISPATCHER T[facility] Narrative [facility] - 02/24/2024 6:53 AM DISPATCHER T[facility] Britton GoMototomeka DO LAB - URINALYSIS ORD ERABLES Performing Organization Address [facility] Co de Phone Number [facility] [address] [place] [address] * LACTIC ACID BLOOD REFLEX TO REPEAT (02/24/2024 5:38 AM DISPATCHER T[facility]GBO[facility]) Only the most recent of2 resultswithin the time period is included. Lactic Acid 1.0 <=2.0 mmol/L 02/24/2024 6:22 AM DISPATCHER T[facility] Blood BLOOD SPECIMEN / Unknown Venipuncture / Unknown 02/24/2024 5:38 AM DISPATCHER T[facility] 02/24/2024 5:39 AM DISPATCHER T[facility] BrittonRSens DO LAB - CHEMISTRY ORDE RABLES Performing Organization Address [facility] Co de Phone Number [facility] [address] [place] [address] * TSH REFLEX FREE T4 (02/24/2024 5:38 AM DISPATCHER TUGBO[facility]) TSH 2.611 0.350 - 4.940 uIU/mL 02/24/2024 6:26 AM DISPATCHER T[facility]OAT [facility] Blood BLOOD SPECIMEN / Unknown Venipuncture / Unknown 02/24/2024 5:38 AM DISPATCHER [facility] 02/24/2024 5:38 AM DISPATCHER [facility] Navdeep Nazario DO LAB - CHEMISTRY OR DERABLES Performing Organization Address [facility] Co de Phone Number [facility] [phone] [place], [place] [id number] * (ABNORMAL) CBC W/O DIFFERENTIAL (02/24/2024 5:38 AM DISPATCHER TUGBOAT) [facility] WBC 6.7 4.0 - 10.7 x10E9/L 02/24/2024 5:46 AM DISPATCHER TUGBO[facility] RBC Count 3.53(L) 4.30 - 5.80 x10E12/L 02/24/2024 5:46 AM [facility] Hemoglobin 11.0(L) 13.3 - 17.5 g/dL 02/24/2024 5:46 AM [facility] Hematocrit 33.7(L) 38.7 - 51.1 % 02/24/2024 5:46 AM [facility] MCV 95.5 80.0 - 98.0 fL 02/24/2024 5:46 AM [facility] MCH 31.2 26.7 - 33.6 pg 02/24/2024 5:46 AM [facility] MCHC 32.6 31.7 - 36.3 g/dL 02/24/2024 5:46 AM [facility] RDW-CV 13.5 11.3 - 14.8 % 02/24/2024 5:46 AM [facility] Platelet Count 320 150 - 420 x10E9/L 02/24/2024 5:46 AM [facility] MPV 9.3 7.8 - 11.4 fL 02/24/2024 5:46 AM [facility] Blood BLOOD SPECIMEN / Unknown Venipuncture / Unknown 02/24/2024 5:38 AM DISPATCHER [facility] 02/24/2024 5:38 AM DISPATCHER [facility] Navdeep Nazario DO LAB - HEMATOLOGY O RDERABLES Performing Organization Address City/[facility] Co de Phone Number [facility] [id number] [place] [address] * MAGNESIUM BLOOD (02/24/2024 5:38 AM DISPATCHER TUGBO[facility]) Only the most recent of2 resultswithin the time period is included. Pathologist [facility] Magnesium 1.8 1.6 - 2.6 mg/dL 02/24/2024 6:19 AM [facility]ER [facility] Blood BLOOD SPECIMEN / Unknown Venipuncture / Unknown 02/24/2024 5:38 AM DISPATCHER T[facility] 02/24/2024 5:38 AM DISPATCHER [facility] Navdeep Nazario DO LAB - CHEMISTRY OR DERABLES Performing Organization Address [facility] Co de Phone Number [facility] [address] [place] [address] * TROPONIN-I HIGH SENSITIVE REFLEX 1HOUR (02/23/2024 5:20 PM DISPATCHER TUGBOAT) Pathologist [facility] Troponin I High Sensitive <3 <=35 ng/L 02/23/2024 6:14 PM DISPATCHER TUGB[facility] Delta Troponin I HS 02/23/2024 6:14 PM DISPATCHER TUGBOAT [facility] Comment:Result exceeds linea rity range. A delta value is unable to be calculated. Blood BLOOD SPECIMEN / Unknown Venipuncture / Unknown 02/23/2024 5:20 PM DISPATCHER TUGBOAT 02/23/2024 5:47 PM DISPATCHER T[facility] Britton Llamas DO LAB - CHEMISTRY MELYSSA CHAHAL Performing Organization Address City/[facility]/ZIP Co de Phone Number [facility] [address] [place] [address] * XR CHEST 1VW PORTABLE (02/23/2024 5:01 PM DISPATCHER TUGBO[facility]) Anatomical Region Laterality Modality Chest Computed Radiogr aphy 02/23/2024 5:05 PM DISPATCHER TUGBO[facility] Impressions 02/23/2024 5:06 PM DISPATCHER TUGBO[facility] IMPRESSION: No acute airspace infiltrate. > Interpreting Provider: Jacinda Peng MD on 02/23/2024 5:06 PM Narrative 02/23/2024 5:06 PM DISPATCHER [facility] PROCEDURE: ??XR CHEST 1VW PORTABLE DATE/TIME OF [...] CBC W AUTO DIFFERENTIAL (02/23/2024 4:51 PM DISPATCHER TUGBO[facility]) WBC 9.3 4.0 - 10.7 x10E9/L 02/23/2024 5:05 PM DISPATCHER TUGBO[facility] RBC Count 3.49(L) 4.30 - 5.80 x10E12/L 02/23/2024 5:05 PM DISPATCHER [facility] Hemoglobin 11.2(L) 13.3 - 17.5 g/dL 02/23/2024 5:05 PM DISPATCHER [facility] Hematocrit 33.2(L) 38.7 - 51.1 % 02/23/2024 5:05 PM DISPATCHER [facility] MCV 95.1 80.0 - 98.0 fL 02/23/2024 5:05 PM DISPATCHER T[facility]GBO[facility] MCH 32.1 26.7 - 33.6 pg 02/23/2024 5:05 PM DISPATCHER TUGBO[facility] MCHC 33.7 31.7 - 36.3 g/dL 02/23/2024 5:05 PM DISPATCHER TUGBO[facility] RDW-CV 13.6 11.3 - 14.8 % 02/23/2024 5:05 PM [facility] Platelet Count 284 150 - 420 x10E9/L 02/23/2024 5:05 PM [facility] MPV 9.3 7.8 - 11.4 fL 02/23/2024 5:05 PM [facility] Neutrophil % 80.0(H) 41.0 - 74.0 % 02/23/2024 5:05 PM [facility] Lymphocyte % 9.5(L) 17.0 - 47.0 % 02/23/2024 5:05 PM [facility] Monocyte % 9.5 3.0 - 11.0 % 02/23/2024 5:05 PM [facility] Eosinophil % 0.1 0.0 - 7.0 % 02/23/2024 5:05 PM [facility] Basophil % 0.5 0.0 - 1.6 % 02/23/2024 5:05 PM [facility] Immature Granulocytes % 0.4 0.0 - 1.0 % 02/23/2024 5:05 PM [facility] Neutrophil Absolute 7.45 1.60 - 7.50 x10E9/L 02/23/2024 5:05 PM [facility] Lymphocyte Absolute 0.88(L) 1.00 - 4.40 x10E9/L 02/23/2024 5:05 PM [facility] Monocyte Absolute 0.88 0.15 - 1.00 x10E9/L 02/23/2024 5:05 PM [facility] Eosinophil Absolute 0.01 0.00 - 0.60 x10E9/L 02/23/2024 5:05 PM [facility] Basophil Absolute 0.05 0.00 - 0.13 x10E9/L 02/23/2024 5:05 PM [facility] Blood BLOOD SPECIMEN / Unknown Venipuncture / Unknown 02/23/2024 4:51 PM DISPATCHER T[facility] 02/23/2024 4:59 PM [facility] Britton Llamas DO LAB - HEMATOLOGY ORD ERABLES [facility] [address] [place] [address] * TROPONIN-I HIGH SENSITIVE BASELINE + 1HR (02/23/2024 4:10 PM DISPATCHER TUGBOAT) Pathologist [facility] Troponin I High Sensitive 4 <=35 ng/L 02/23/2024 5:03 PM [facility] Blood BLOOD SPECIMEN / Unknown Venipuncture / Unknown 02/23/2024 4:10 PM DISPATCHER TUGBOAT 02/23/2024 4:33 PM DISPATCHER T[facility] Britton Llamas DO LAB - CHEMISTRY KWAMEE TIRSO [facility] [address] [place] [address] * (ABNORMAL) COMPREHENSIVE METABOLIC PANEL (02/23/2024 4:10 PM DISPATCHER TUGBOAT) Pathologist [facility] Glucose 178(H) 70 - 99 mg/dL 02/23/2024 4:59 PM [facility] Sodium 132(L) 136 - 145 mmol/L 02/23/2024 4:59 PM [facility] Potassium 4.7 3.5 - 5.1 mmol/L 02/23/2024 4:59 PM [facility] Chloride 99 98 - 107 mmol/L 02/23/2024 4:59 PM [facility] CO2 21(L) 22 - 29 mmol/L 02/23/2024 4:59 PM [facility] Calcium 8.9 8.4 - 10.4 mg/dL 02/23/2024 4:59 PM [facility] Anion Gap 12 6 - 16 mmol/L 02/23/2024 4:59 PM [facility] BUN 18 7 - 26 mg/dL 02/23/2024 4:59 PM [facility] Creatinine 1.19 0.72 - 1.25 mg/dL 02/23/2024 4:59 PM [facility] Alkaline Phosphatase 62 40 - 150 U/L 02/23/2024 4:59 PM [facility] ALT 15 0 - 55 U/L 02/23/2024 4:59 PM [facility] AST 16 5 - 34 U/L 02/23/2024 4:59 PM [facility] Protein Total 6.7 6.4 - 8.3 gm/dL 02/23/2024 4:59 PM DISPATCHER T[facility]GBO[facility] Albumin 2.6(L) 3.4 - 5.0 gm/dL 02/23/2024 4:59 PM DISPATCHER T[facility]GBO[facility] Bilirubin Total 0.4 0.2 - 1.2 mg/dL 02/23/2024 4:59 PM DISPATCHER T[facility]GBO[facility] eGFR by CKD-EPI 59(L) >=90 mL/min/1.7 3 m2 02/23/2024 4:59 PM DISPATCHER T[facility] Blood BLOOD SPECIMEN / Unknown Venipuncture / Unknown 02/23/2024 4:10 PM DISPATCHER TUGBOAT 02/23/2024 4:33 PM DISPATCHER TUGBOAT [facility]on [facility] - CHEMISTRY TOMS BROOKNatasha LESTERCHI [facility] Performing Organization Address [facility] Co de Phone Number [facility] [address] [place] [address] * LIPASE BLOOD (02/23/2024 4:10 PM DISPATCHER [place]) Pathologist [facility] Lipase <4 <60 U/L 02/23/2024 5:01 PM DISPATCHER [place] [facility] Blood BLOOD SPECIMEN / Unknown Venipuncture / Unknown 02/23/2024 4:10 PM DISPATCHER [place] 02/23/2024 4:33 PM DISPATCHER [place] Britton Karmarama LAB - CHEMISTRY TOMS BROOKE [facility] Performing Organization Address [facility] Co de Phone Number [facility] [id number] [place] [address] * EKG 12-LEAD (02/23/2024 3:30 PM DISPATCHER [place]) Ventricular Rate 106 BPM [facility] Atrial Rate 106 BPM [facility] P-R Interval 172 ms [facility] QRS Duration ms 128 ms [facility] Q-T Interval ms 364 ms [facility] QTC Calculation (Bezet) 483 ms [facility] Calculated P [place] 36 degrees [facility] Calculated R [place] 76 degrees [facility] Calculated T [place] 21 degrees [facility] Interpretation EKG Sinus tachycardia Right bundle branch block Abnormal ECG No previous ECGs available Confirmed by ÁNGEL HUNTLEY MD ([id number]) on 02/24/2024 9:02:56 AM [facility] 02/23/2024 3:30 PM DISPATCHER [place] 02/24/2024 9:02 AM DISPATCHER [place] Rachna Allan ASSOCIATE PROFESSOR OF EDUCATION-DIETETICS DIRECTOR ECG ORDERA BLES [facility] * HEMOGLOBIN A1C - POINT OF CARE (AMB) (12/02/2023 2:32 PM CDT) Hemoglobin A1c POCT 6.1 % [facility] Expiration Date 2025-08-29 [facility] Lot # [id number] [facility] QC Verified Yes Yes [facility] Blood BLOOD SPECIMEN / Unknown 12/02/2023 2:32 PM CDT Chris Aden MD LAB - POINT OF CARE ORDERABLES [facility] [id number] [phone] * DIABETES EYE EXAM (04/04/2020) Scanned Document HEALTH MAINTENANCE from Last 3 Months or Most Recently Relevant to Health Maintenance Advance Directives * Full Code (Latest Code Status on File) Date Activated Date Inactivated Comments 02/24/2024 7:56 AM 02/26/2024 5:22 PM * Full Code Date Activated Date Inactivated Comments 02/23/2024 9:07 PM 02/24/2024 7:56 AM Care Teams Plant Operations Worker Relationship Specialty [place] [address] [place] [address] PCP - General Internal Medicine 01/26/22 [place] [address] [place] [address] PCP - Attributed-[facility] 02/19/22 [place] [address] [facility] [address] [place] [id number] Ophthalmology 04/06/16 Fawn Ramon DPM [address] [place] [address] Podiatry 01/24/21
--- OUTSIDE RECORDS SUMMARY | 2024-04-03 02:25 | XMS_ITS | Encounter Summary ---
Author Organization [facility] Address [address] [place] [address] Care Team Providers Care Scholastic Aptitude Test Grader Name Role Phone Ricco Andrew MD Unavailable [phone] Fawn Ramon DPM Unavailable [phone] Chris Aden MD Primary Care Provider [phone] Chris Aden MD Unavailable Reason for Visit * Reason Onset Date Comments SHAKING 03/09/2024 Fatigue 03/09/2024 Slurred Speech 03/09/2024 Chest Pain 03/09/2024 Encounter Details Date Type Department Care Team (Late st Contact Info) Description 03/09/2024 Telephone [facility] Family Medicine [id number] [place] [address] Chris Aden MD [address] [place] [phone] SHAKING; Fatigue; Slurred Speech; Chest Pain [...] Recorded Patient Health Questionnaire-2 Score 2 03/06/2024 [facility] - Occupational Stress Questionnaire Answer Date Recorded [...] time in the past 12 m [facility], were you homeless or living in a penitentiary (including now)? No 02/24/2024 Sex and Gender Information Value Date Recorded Sex Assigned at Male 01/22/2023 1:45 PM CDT Gender Identity Male 01/22/2023 1:45 PM CDT Sexual Orientation Straight 01/22/2023 1: 45 PM CDT documented as of this encounter Miscellaneous Notes * Telephone Encounter - Aby Dyer RN - 03/09/2024 11:27 AM FISHING GUIDE Pt daughter (on HIPAA) calling stating this [...] call 911. Pt will be taken to [facility] ER. ING GUIDE documented in this encounter Plan of Treatment Upcoming Encounters Date Type Department Care Team (Late st Contact Info) Description 04/07/2024 10:00 AM FISHING GUIDE Office Visit [facility] [id number] [place] [address] [address] [place] [address] Evelin Blanco APRN-CNP [id number] [place] [address] 06/06/2024 2:00 PM CDT Office Visit [facility] [id number] [place] [address] [address] [place] [address] [place] [id number] [place] [phone] documented as of this encounter Goals Goal Patient Goal Type Associated Problems Recent Progress Patient-Stated? Author Blood Pressure < 140/90 Blood Pressure 96/68(2023 2:34 PM FISHING GUIDE) Rere Vargas Note: Caring for Your High [...] Related Tools, and click ? HBP Trackers.? 3-752-QBA-USA-1 or ( ) National Heart, Lung and Blood [place]: http://www.nhlbi.nih.gov/health/infoctr/index.htm Blood Pressure < 140/90 Blood Pressure 96/68(2023 2:34 PM FISHING GUIDE) Rere Vargas Note: Caring for Your High [...] Related Tools, and click ? HBP Trackers.? 2-451-QNO-USA-1 or ( ) National Heart, Lung and Blood [place]: http://www.nhlbi.nih.gov/health/infoctr/index.htm Blood Pressure < 140/90 Blood Pressure 96/68(2023 2:34 PM FISHING GUIDE) Cassie Parks Note: Caring for Your High [...] Related Tools, and click ? HBP Trackers.? 3-797-ATC-[place]-1 or ( ) National Heart, Lung and Blood [place]: http://www.nhlbi.nih.gov/health/infoctr/index.htm Exercise 5X per week (30 min per time) Exercise No Rere Kaufmna Note: [employer] [...] ? ? [place] [employer]: www.diabetes.org 2-672-TVUSZZPG ( ) ? ? [place] Diabetes Association-Support group line: www.professional.diabetes.org ? ? [place] Heart Association: www.heart.org or 2-548-DOS-[facility]-1 ( ) [employer] MyPlate: www.MileWisemyplate.gov Have labs drawn Lifestyle Rere Vargas Note: [...] on filedocumented in this encounter Care Teams Scholastic Aptitude Test Grader Relationship Specialty [place] [address] [place] [phone] PCP - General Internal Medicine 01/26/22 [place] [address] [place] [id number] PCP - [facility] 02/19/22 [place] [address] [facility] [address] [place] [phone] Ophthalmology 04/06/16 Fawn Ramon DPM [address] [place] [address] Podiatry 01/24/21 documented as of this encounter
--- OUTSIDE RECORDS SUMMARY | 2024-04-03 02:25 | XMS_ITS | Referral Summary ---
Author Organization [facility] Address [address] [place] [address] Care Team Providers Care Junior Brand Manager Name Role Phone Ricco Andrew MD Unavailable [phone] Fawn Ramon DPKae Unavailable [phone] Chris Aden MD Primary Care Provider [phone] Chris Aden MD Unavailable Source Comments [facility],non-owned Affiliates and Associated Physician Practices is amultiple site organization consisting of ambulatory clinics and hospital sitesin [place], [place], [place]. This disclosure is being madepursuant to the Care Everywhere program and may not contain all information available regarding this patient. Last updated 17.[facility] Encounters Date Type Department Care Team Description 03/30/2024 Telephone [facility] [phone] [place] [address] [address] [place], [place] [id number] Chris Aden MD Home Health; Order 03/30/2024 Refill [facility] [id number] [place] [address] [address] [place] [address] Chris Aden MD Refill Request 03/09/2024 Telephone [facility] [phone] [place] [address] [address] [place] [address] Chris Aden MD SHAKING; Fatigue; Slurred Speech; Chest Pain 03/06/2024 2:30 PM PLANT CONTROLLER Office Visit [facility] [phone] [place] [address] [address] [place] [address] Chris Aden MD Slow transit constipation (Primary Dx); Type 2 diabetes mellitus with diabetic neuropathy, unspecified whether senior living insulin use (HCC); Cellulitis of face; Dermatitis; Type 2 diabetes mellitus with hyperlipidemia (HCC); Type 2 diabetes mellitus with hyperglycemia, without long-term current use of insulin (HCC); 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, without long-term current use of insulin, unspecified retinopathy severity (HCC); Hypertension associated with diabetes ([facility]); Alzheimer's dementia without behavioral disturbance ([facility]) 02/28/2024 Travel 02/28/2024 Transitional Care [facility] - Care Coordination [address] [place] [address] Clarice Hansen RNpublic records researcher 02/23/2024 2:47 PM PLANT CONTROLLER - 02/26/2024 4:21 PM PLANT CONTROLLER Hospital Encounter [address] [address] [place] [address] Britton Llamas, Datar, MD Jessica Lazcano Imran A, MD Internal Medicine Discharge Disposition: Home or Self Care 02/23/2024 Travel 02/23/2024 2:00 PM PLANT CONTROLLER Office Visit [facility] [id number] [place] [address] Evelin Blanco, TURNING LATHE TENDER-INDUCTION BRAZER Hypotension, unspecified hypotension type (Primary Dx) 02/21/[address] [address] Chris Aden MD Record Request 02/18/[address] [address] Chris Aden MD Refill Request 02/14/[address] [address] Chris Aden MD Update; Pneumonia 02/11/2024 Orders Only [address] [address] Chris Aden MD 02/09/2024 1:15 PM PLANT CONTROLLER Clinical Support [address] [address] Need for vaccination ; Need for prophylactic vaccination and inoculation against influenza 02/09/2024 11:30 AM PLANT CONTROLLER Office Visit [address] [address] Chris Aden MD Abnormal gait (Primary Dx); [...] dementia without behavioral disturbance (HCC) 01/25/[address] [address] Chris Aden MD Injury Elbow 01/08/[address] [address] Chris Aden MD Refill Request from Last [...] Recorded Patient Health Questionnaire-2 Score 2 03/06/2024 [facility] [place] of Occupat ional Health - Occupational Stress [...] were you homeless or living in a longterm (including now)? No 02/24/2024 Sex and Gender Information Value Date Recorded Sex Assigned at Male 01/22/2023 1:45 PM CDT Gender Identity Male 01/22/2023 1:45 PM CDT Sexual Orientation Straight 01/22/2023 1: 45 PM CDT Last Filed Vital Signs Vital Sign Reading Time Taken Comments Blood Pressure 96/68 03/06/2024 2:34 PM PLANT CONTROLLER Pulse 70 03/06/2024 2:34 PM PLANT CONTROLLER Temperature 36.7 ??C (98 ??F) 03/06/2024 2:34 PM PLANT CONTROLLER Respiratory Rate 18 03/06/2024 2:34 PM PLANT CONTROLLER Oxygen Saturation 96% 03/06/2024 2:34 PM PLANT CONTROLLER Inhaled Oxygen Concentration - - Weight 65.8 kg (145 lb) 02/24/2024 12:31 AM PLANT CONTROLLER Height 170.2 cm (5' 7) 03/06/2024 2:34 PM PLANT CONTROLLER Body Mass Index 22.71 02/24/2024 12:31 AM PLANT CONTROLLER Plan of Treatment Upcoming Encounters Date Type Department Care Team (Late st Contact Info) Description 04/07/2024 10:00 AM PLANT CONTROLLER Office Visit [facility] [address] [facility] [address] [place] [address] Evelin Blanco, TURNING LATHE TENDER-INDUCTION BRAZER [address] [facility] [address] [place] [address] 06/06/2024 2:00 PM CDT Office Visit [facility] [address] [facility] [address] [place] [address] [place] [address] [place] [address] Goals Goal Patient Goal Type Associated Problems Recent Progress Patient-Stated? Author Blood Pressure < 140/90 Blood Pressure 96/68(2023 2:34 PM PLANT CONTROLLER) Rere Vargas Note: Caring for Your [...] Related Tools, and click ? HBP Trackers.? 4-118-BGD-USA-1 or ( ) National Heart, Lung and Blood [place]: http://www.nhlbi.nih.gov/health/infoctr/index.htm Blood Pressure < 140/90 Blood Pressure 96/68(2023 2:34 PM PLANT CONTROLLER) Rere Vargas Note: Caring for Your [...] Related Tools, and click ? HBP Trackers.? 5-353-LHS-[place]-1 or ( ) National Heart, Lung and Blood [place]: http://www.nhlbi.nih.gov/health/infoctr/index.htm Blood Pressure < 140/90 Blood Pressure 96/68(2023 2:34 PM PLANT CONTROLLER) No Cassie Marie Note: Caring for Your [...] Related Tools, and click ? HBP Trackers.? 7-699-AGM-[place]-1 or ( ) National Heart, Lung and Blood [place]: http://www.nhlbi.nih.gov/health/infoctr/index.htm Exercise 5X per week (30 min per time) Exercise No Rere Kaufman Note: The [place] [employer] [...] diabetes: ? ? [place] Diabetes Association: www.diabetes.org 9-909-ALBQLYIT ( ) ? ? [place] Diabetes Association-Support group line: www.professional.diabetes.org ? ? [place] Heart Association: www.heart.org or 5-382-NON-[place]-1 ( ) [employer] MyPlate: www.Sonexa Therapeuticsmyplate.gov Have labs drawn Lifestyle No Kaufman, Lacheina [...] POINT OF CARE Routine 02/25/2024 6:04 PM PLANT CONTROLLER SARS-COV-2 (COVID-19) RAPID Routine 02/25/2024 3:12 PM PLANT CONTROLLER Wrist arthritis GLUCOSE - POINT OF CARE Routine 02/25/2024 12:05 PM PLANT CONTROLLER BASIC METABOLIC PANEL (CALCIUM TOTAL) AM Draw 02/25/2024 4:14 AM PLANT CONTROLLER Weight loss, abnormal CARDIAC EKG ORDER 02/24/2024 6:3 5 PM PLANT CONTROLLER GLUCOSE - POINT OF CARE Routine 02/24/2024 5:59 PM PLANT CONTROLLER URINALYSIS REFLEX MICROSCOPIC REFLEX CULTURE STAT 02/24/2024 5:43 AM PLANT CONTROLLER TSH REFLEX FREE T4 Routine 02/24/2024 5: 38 AM PLANT CONTROLLER Hypotension, unspecified hypotension type Adult failure to thrive Volume depletion MAGNESIUM BLOOD Routine 02/24/2024 5:38 AM PLANT CONTROLLER Hypotension, unspecified hypotension type Adult failure to thrive Volume depletion CBC W/O DIFFERENTIAL Routine 02/24/2024 5:38 AM PLANT CONTROLLER Hypotension, unspecified hypotension type Adult failure to thrive Volume depletion BASIC METABOLIC PANEL (CALCIUM TOTAL) Routine 02/24/2024 5:38 AM PLANT CONTROLLER Hypotension, unspecified hypotension type Adult failure to thrive Volume depletion LACTIC ACID BLOOD REFLEX TO REPEAT Timed STAT 02/24/2024 5:38 AM PLANT CONTROLLER TROPONIN-I HIGH SENSITIVE REFLEX 1HOUR Timed 02/23/2024 5:20 PM PLANT CONTROLLER XR CHEST 1VW PORTABLE STAT 02/23/2024 5:01 PM PLANT CONTROLLER Hypotension, unspecified hypotension type CBC W AUTO DIFFERENTIAL STAT 02/23/2024 4:51 PM PLANT CONTROLLER TROPONIN-I HIGH SENSITIVE BASELINE + 1HR STAT 02/23/2024 4:10 PM PLANT CONTROLLER LIPASE BLOOD STAT 02/23/2024 4:10 PM PLANT CONTROLLER MAGNESIUM BLOOD STAT 02/23/2024 4:10 PM PLANT CONTROLLER LACTIC ACID BLOOD REFLEX TO REPEAT STAT 02/23/2024 4:10 PM PLANT CONTROLLER COMPREHENSIVE METABOLIC PANEL STAT 02/23/2024 4:10 PM PLANT CONTROLLER EKG 12-LEAD STAT 02/23/2024 3:30 PM PLANT CONTROLLER Hypotension, unspecified hypotension type HEMOGLOBIN A1C - POINT OF CARE (AMB) Routine 12/02/2023 2:32 PM CDT Type 2 diabetes mellitus with hyperglycemia, without long-term current use of insulin (HCC) HM DIABETES EYE EXAM Routine 04/04/2020 from Last 3 Months or Most Recently Relevant to Health Maintenance Results * (ABNORMAL) GLUCOSE - POINT OF CARE (02/25/2024 6:04 PM PLANT CONTROLLER) Only the most recent of3 resultswithin the time period is included. Glucose WB/POC 225(H) 70 - 99 mg/dL 02/25/2024 10:00 PM PLANT CONTROLLER [facility] Specimen Type Cap Fingerstick 2023 10:00 PM PLANT CONTROLLER [facility] Blood BLOOD SPECIMEN / Unknown 02/25/2024 6:04 PM PLANT CONTROLLER 02/25/2024 10:00 PM PLANT CONTROLLER Osiel Lopez MD LAB - POINT OF CARE ORDERABLES Performing Organization Address [facility] Co de Phone Number [facility] [address] [place] [address] * SARS-COV-2 (COVID-19) RAPID (02/25/2024 3:12 PM PLANT CONTROLLER) COVID-19 PCR Not detected Not detected 02/25/20 24 4:02 PM PLANT CONTROLLER [facility] Microbiology SPECIMEN FROM NASOPHARYNGEAL STRUCTURE / Unknown Collection / Unknown 02/25/2024 3:12 PM PLANT CONTROLLER 02/25/2024 3:27 PM PLANT CONTROLLER Narrative [facility] - 02/25/2024 4:02 PM PLANT CONTROLLER The CepTCHOid Xpert Xpress SARS-COV-2 has been authorized by [...] - MICROBIOLOGY O RDERABLES Performing Organization Address [facility] Co de Phone Number [facility] [address] [place] [address] * (ABNORMAL) BASIC METABOLIC PANEL (CALCIUM TOTAL) (02/25/2024 4:14 AM PLANT CONTROLLER) Only the most recent of2 resultswithin the time period is included. Glucose 192(H) 70 - 99 mg/dL 02/25/2024 6:02 AM PLANT CONTROLLER [facility] Sodium 132(L) 136 - 145 mmol/L 02/25/2024 6:02 AM [facility] Potassium 4.2 3.5 - 5.1 mmol/L 02/25/2024 6:02 AM [facility] Chloride 104 98 - 107 mmol/L 02/25/2024 6:02 AM [facility] CO2 20(L) 22 - 29 mmol/L 02/25/2024 6:02 AM [facility] Calcium 8.3(L) 8.4 - 10.4 mg/dL 02/25/2024 6:02 AM [facility] Anion Gap 8 6 - 16 mmol/L 02/25/2024 6:02 AM [facility] BUN 12 7 - 26 mg/dL 02/25/2024 6:02 AM [facility] Creatinine 0.87 0.72 - 1.25 mg/dL 02/25/2024 6:02 AM [facility] eGFR by CKD-EPI 84(L) >=90 mL/min/1.7 3 m2 02/25/2024 6:02 AM [facility] Blood BLOOD SPECIMEN / Unknown Venipuncture / Unknown 02/25/2024 4:14 AM PLANT CONTROLLER 02/25/2024 5:43 AM PLANT CONTROLLER Osiel Lopez MD LAB - CHEMISTRY ORDE [facility] Organization Address City/State/ZIP Co de Phone Number [facility] [address] [place] [address] * CARDIAC EKG ORDER (02/24/2024 6:35 PM PLANT CONTROLLER) Narrative 02/24/2024 6:35 PM PLANT CONTROLLER Ordered by an unspecified provider. Scanned Document CARDIAC SERVICES ORD ERABLES * (ABNORMAL) URINALYSIS REFLEX MICROSCOPIC REFLEX CULTURE (02/24/2024 5:43 AM PLANT CONTROLLER) Color UA Yellow Yellow, Straw 02/24/2024 6:53 AM [facility] Clarity UA Clear Clear 02/24/2024 6:53 AM [facility] Glucose UA Normal Normal 02/24/2024 6:53 AM [facility] Bilirubin UA Negative Negative 02/24/2024 6:53 AM PLANT CONTROLLER [facility] Ketone UA Negative Negative 02/24/2024 6:53 AM PLANT CONTROLLER [facility] Specific [place] UA 1.023 1.005 - 1.030 02/24/2024 6:53 AM PLANT CONTROLLER [facility] Blood UA Negative Negative 02/24/2024 6:53 AM PLANT CONTROLLER [facility] pH UA 5.5 5.0 - 9.0 pH 02/24/2024 6:53 AM [facility] Protein UA Trace(A) Negative 02/24/2024 6:53 AM PLANT CONTROLLER [facility] Urobilinogen UA Normal Normal mg/dL 024 6:53 AM PLANT CONTROLLER [facility] Nitrite UA Negative Negative 02/24/2024 6:53 AM PLANT CONTROLLER [facility] Leukocyte UA Negative Negative 02/24/2024 6:53 AM [facility] Urine URINE SPECIMEN OBTAINED BY CLEAN CATCH PROCEDURE / Unknown Collection / Unknown 02/24/2024 5:43 AM PLANT CONTROLLER 02/24/2024 6:44 AM PLANT CONTROLLER Narrative [facility] - 02/24/2024 6:53 AM PLANT CONTROLLER Britton Llamas LAB - URINALYSIS ORD ERABLES Performing Organization Address [facility] Co de Phone Number [facility] [address] [place] [address] * LACTIC ACID BLOOD REFLEX TO REPEAT (02/24/2024 5:38 AM PLANT CONTROLLER) Only the most recent of2 resultswithin the time period is included. Lactic Acid 1.0 <=2.0 mmol/L 02/24/2024 6:22 AM [facility] Blood BLOOD SPECIMEN / Unknown Venipuncture / Unknown 02/24/2024 5:38 AM PLANT CONTROLLER 02/24/2024 5:39 AM PLANT CONTROLLER Britton [facility] DO LAB - CHEMISTRY ORDE RABLES Performing Organization Address [facility]/ZIP Co de Phone Number [facility] [address] [place] [address] * TSH REFLEX FREE T4 (02/24/2024 5:38 AM PLANT CONTROLLER) Pathologist [facility] TSH 2.611 0.350 - 4.940 uIU/mL 02/24/2024 6:26 AM [facility] Blood BLOOD SPECIMEN / Unknown Venipuncture / Unknown 02/24/2024 5:38 AM PLANT CONTROLLER 02/24/2024 5:38 AM PLANT CONTROLLER Navdeep Nazario DO LAB - CHEMISTRY OR DERABLES Performing Organization Address City/State/[facility] Co de Phone Number [facility] [address] [place] [address] * (ABNORMAL) CBC W/O DIFFERENTIAL (02/24/2024 5:38 AM PLANT CONTROLLER) [facility] WBC 6.7 4.0 - 10.7 x10E9/L 02/24/2024 5:46 AM [facility] RBC Count 3.53(L) 4.30 - 5.80 x10E12/L 02/24/2024 5:46 AM [facility] Hemoglobin 11.0(L) 13.3 - 17.5 g/dL 02/24/2024 5:46 AM [facility] Hematocrit 33.7(L) 38.7 - 51.1 % 02/24/2024 5:46 AM [facility] MCV 95.5 80.0 - 98.0 fL 02/24/2024 5:46 AM [facility] MCH 31.2 26.7 - 33.6 pg 02/24/2024 5:46 AM [facility] MCHC 32.6 31.7 - 36.3 g/dL 02/24/2024 5:46 AM [facility] RDW-CV 13.5 11.3 - 14.8 % 02/24/2024 5:46 AM [facility] Platelet Count 320 150 - 420 x10E9/L 02/24/2024 5:46 AM [facility] MPV 9.3 7.8 - 11.4 fL 02/24/2024 5:46 AM [facility] Blood BLOOD SPECIMEN / Unknown Venipuncture / Unknown 02/24/2024 5:38 AM PLANT CONTROLLER 02/24/2024 5:38 AM PLANT CONTROLLER Navdeep Nazario DO LAB - HEMATOLOGY O RDERABLES Performing Organization Address [facility] Co de Phone Number [facility] [address] [place] [phone] * MAGNESIUM BLOOD (02/24/2024 5:38 AM PLANT CONTROLLER) Only the most recent of2 resultswithin the time period is included. Magnesium 1.8 1.6 - 2.6 mg/dL 02/24/2024 6:19 AM PLANT CONTROLLER [facility] Blood BLOOD SPECIMEN / Unknown Venipuncture / Unknown 02/24/2024 5:38 AM PLANT CONTROLLER 02/24/2024 5:38 AM PLANT CONTROLLER Navdeep Nazario DO LAB - CHEMISTRY OR DERABLES Performing Organization Address [facility] de Phone Number [facility] [address] [place] [phone] * TROPONIN-I HIGH SENSITIVE REFLEX 1HOUR (02/23/2024 5:20 PM PLANT CONTROLLER) Troponin I High Sensitive <3 <=35 ng/L 02/23/2024 6:14 PM PLANT CONTROLLER [facility] Delta Troponin I HS 02/23/2024 6:14 PM PLANT CONTROLLER [facility] Comment:Result exceeds linea rity range. A delta value is unable to be calculated. Blood BLOOD SPECIMEN / Unknown Venipuncture / Unknown 02/23/2024 5:20 PM PLANT CONTROLLER 02/23/2024 5:47 PM PLANT CONTROLLER Britton Llamas DO LAB - CHEMISTRY ORDE RABLES Performing Organization Address [facility] Co de Phone Number [facility] [id number] [place] [id number] * XR CHEST 1VW PORTABLE (02/23/2024 5:01 PM PLANT CONTROLLER) Anatomical Region Laterality Modality Chest Computed Radiogr aphy 02/23/2024 5:05 PM PLANT CONTROLLER Impressions 02/23/2024 5:06 PM PLANT CONTROLLER IMPRESSION: No acute airspace infiltrate. > Interpreting Provider: Jacinda Peng MD on 02/23/2024 5:06 PM Narrative 02/23/2024 5:06 PM PLANT CONTROLLER PROCEDURE: ??XR CHEST 1VW PORTABLE DATE/TIME OF [...] CBC W AUTO DIFFERENTIAL (02/23/2024 4:51 PM PLANT CONTROLLER) WBC 9.3 4.0 - 10.7 x10E9/L 02/23/2024 5:05 PM PLANT CONTROLLER [facility] RBC Count 3.49(L) 4.30 - 5.80 x10E12/L 02/23/2024 5:05 PM PLANT CONTROLLER [facility] Hemoglobin 11.2(L) 13.3 - 17.5 g/dL 02/23/2024 5:05 PM PLANT CONTROLLER [facility] Hematocrit 33.2(L) 38.7 - 51.1 % 02/23/2024 5:05 PM PLANT CONTROLLER [facility] MCV 95.1 80.0 - 98.0 fL 02/23/2024 5:05 PM PLANT CONTROLLER [facility] MCH 32.1 26.7 - 33.6 pg 02/23/2024 5:05 PM [facility] MCHC 33.7 31.7 - 36.3 g/dL 02/23/2024 5:05 PM [facility] RDW-CV 13.6 11.3 - 14.8 % 02/23/2024 5:05 PM [facility] Platelet Count 284 150 - 420 x10E9/L 02/23/2024 5:05 PM [facility] MPV 9.3 7.8 - 11.4 fL 02/23/2024 5:05 PM [facility] Neutrophil % 80.0(H) 41.0 - 74.0 % 02/23/2024 5:05 PM [facility] Lymphocyte % 9.5(L) 17.0 - 47.0 % 02/23/2024 5:05 PM [facility] Monocyte % 9.5 3.0 - 11.0 % 02/23/2024 5:05 PM [facility] Eosinophil % 0.1 0.0 - 7.0 % 02/23/2024 5:05 PM [facility] Basophil % 0.5 0.0 - 1.6 % 02/23/2024 5:05 PM [facility] Immature Granulocytes % 0.4 0.0 - 1.0 % 02/23/2024 5:05 PM [facility] Neutrophil Absolute 7.45 1.60 - 7.50 x10E9/L 02/23/2024 5:05 PM [facility] Lymphocyte Absolute 0.88(L) 1.00 - 4.40 x10E9/L 02/23/2024 5:05 PM [facility] Monocyte Absolute 0.88 0.15 - 1.00 x10E9/L 02/23/2024 5:05 PM [facility] Eosinophil Absolute 0.01 0.00 - 0.60 x10E9/L 02/23/2024 5:05 PM [facility] Basophil Absolute 0.05 0.00 - 0.13 x10E9/L 02/23/2024 5:05 PM [facility] Blood BLOOD SPECIMEN / Unknown Venipuncture / Unknown 02/23/2024 4:51 PM PLANT CONTROLLER 02/23/2024 4:59 PM PLANT CONTROLLER Britton Llamas LAB - HEMATOLOGY ORD ERABLES Performing Organization Address City/[facility]/ZIP Co de Phone Number [facility] [address] [place], [place] [phone] * TROPONIN-I HIGH SENSITIVE BASELINE + 1HR (02/23/2024 4:10 PM PLANT CONTROLLER) [facility] Troponin I High Sensitive 4 <=35 ng/L 02/23/2024 5:03 PM PLANT CONTROLLER [facility] Blood BLOOD SPECIMEN / Unknown Venipuncture / Unknown 02/23/2024 4:10 PM PLANT CONTROLLER 02/23/2024 4:33 PM PLANT CONTROLLER Britton Llamas DO LAB - CHEMISTRY ORDE RABLES Performing Organization Address [facility]/ZIP Co de Phone Number [facility] [address] [place] [address] * (ABNORMAL) COMPREHENSIVE METABOLIC PANEL (02/23/2024 4:10 PM PLANT CONTROLLER) [facility] Glucose 178(H) 70 - 99 mg/dL 02/23/2024 4:59 PM [facility] Sodium 132(L) 136 - 145 mmol/L 02/23/2024 4:59 PM [facility] Potassium 4.7 3.5 - 5.1 mmol/L 02/23/2024 4:59 PM [facility] Chloride 99 98 - 107 mmol/L 02/23/2024 4:59 PM [facility] CO2 21(L) 22 - 29 mmol/L 02/23/2024 4:59 PM [facility] Calcium 8.9 8.4 - 10.4 mg/dL 02/23/2024 4:59 PM [facility] Anion Gap 12 6 - 16 mmol/L 02/23/2024 4:59 PM [facility] BUN 18 7 - 26 mg/dL 02/23/2024 4:59 PM [facility] Creatinine 1.19 0.72 - 1.25 mg/dL 02/23/2024 4:59 PM [facility] Alkaline Phosphatase 62 40 - 150 U/L 02/23/2024 4:59 PM [facility] ALT 15 0 - 55 U/L 02/23/2024 4:59 PM PLANT CONTROLLER [facility] AST 16 5 - 34 U/L 02/23/2024 4:59 PM PLANT CONTROLLER [facility] Protein Total 6.7 6.4 - 8.3 gm/dL 02/23/2024 4:59 PM PLANT CONTROLLER [facility] Albumin 2.6(L) 3.4 - 5.0 gm/dL 02/23/2024 4:59 PM PLANT CONTROLLER [facility] Bilirubin Total 0.4 0.2 - 1.2 mg/dL 02/23/2024 4:59 PM PLANT CONTROLLER [facility] eGFR by CKD-EPI 59(L) >=90 mL/min/1.7 3 m2 02/23/2024 4:59 PM PLANT CONTROLLER [facility] Blood BLOOD SPECIMEN / Unknown Venipuncture / Unknown 02/23/2024 4:10 PM PLANT CONTROLLER 02/23/2024 4:33 PM PLANT CONTROLLER [facility] - CHEMISTRY [email or web address] Performing Organization Address [facility] Co de Phone Number [facility] [address] [place], [place] [phone] * LIPASE BLOOD (02/23/2024 4:10 PM PLANT CONTROLLER) Pathologist [facility] Lipase <4 <60 U/L 02/23/2024 5:01 PM PLANT CONTROLLER [facility] Blood BLOOD SPECIMEN / Unknown Venipuncture / Unknown 02/23/2024 4:10 PM PLANT CONTROLLER 02/23/2024 4:33 PM PLANT CONTROLLER [facility] LAB - CHEMISTRY [facility] Performing Organization Address [facility] de Phone Number [facility] [address] [place] [address] * EKG 12-LEAD (02/23/2024 3:30 PM PLANT CONTROLLER) Ventricular Rate 106 BPM [facility] Atrial Rate 106 BPM [facility] P-R Interval 172 ms [facility] QRS Duration ms 128 ms [facility] Q-T Interval ms 364 ms [facility] QTC Calculation (Bezet) 483 ms [facility] Calculated P [place] 36 degrees [facility] Calculated R [place] 76 degrees [facility] Calculated T [place] 21 degrees [facility] Interpretation EKG Sinus tachycardia Right bundle branch block Abnormal ECG No previous ECGs available Confirmed by ÁNGEL HUNTLEY MD ([id number]) on 02/24/2024 9:02:56 AM [facility] 02/23/2024 3:30 PM PLANT CONTR[employer]ER 02/24/2024 9:02 AM PLANT CONTROLLER Rachna Allan [employer] ECG ORDERA BLES [facility] * HEMOGLOBIN A1C - POINT OF CARE (AMB) (12/02/2023 2:32 PM CDT) Hemoglobin A1c POCT 6.1 % [facility] Expiration Date 2025-08-29 [facility] Lot # [id number] [facility] QC Verified Yes Yes [facility] Blood BLOOD SPECIMEN / Unknown 12/02/2023 2:32 PM CDT Chris Aden MD LAB - POINT OF CARE ORDERABLES [facility] [facility] [address] [phone] * DIABETES EYE EXAM (04/04/2020) Scanned Document HEALTH MAINTENANCE from Last 3 Months or Most Recently Relevant to Health Maintenance Advance Directives * Full Code (Latest Code Status on File) Date Activated Date Inactivated Comments 02/24/2024 7:56 AM 02/26/2024 5:22 PM * Full Code Date Activated Date Inactivated Comments 02/23/2024 9:07 PM 02/24/2024 7:56 AM Care Teams Junior Brand Manager Relationship Specialty [place] [address] [place] [phone] PCP - General Internal Medicine 01/26/22 [place] [address] [place] [phone] PCP - Attributed-[facility] 02/19/22 [place] [address] [facility] [address] [place] [address] Ophthalmology 04/06/16 Fawn Ramon DPM [address] [place], [place] [phone] Podiatry 01/24/21
--- OUTSIDE RECORDS SUMMARY | 2024-04-03 02:25 | XMS_ITS | Encounter Summary ---
Author Organization [facility] Address [address] [facility] [place] [address] Care Team Providers Care Java Programmer Analyst Name Role Phone Ricco Andrew MD Unavailable [phone] Fawn Ramon DPM Unavailable [phone] Chris Aden MD Primary Care Provider [phone] Chris Aden MD Unavailable Encounter Details Date Type Department Care Team (Late st Contact Info) Description 02/11/2024 Orders Only [facility] - Family Medicine [address] [place] [address] Chris Aden MD [address] [place] [address] Social History Tobacco Use Types Packs/Day [...] st Contact Info) Description 04/07/2024 10:00 AM LIVESTOCK AGENT Office Visit [facility] [address] [facility] [address] [place] [address] Evelin Blanco APRN-CNP [address] [facility] [address] [place] [address] 06/06/2024 2:00 PM CDT Office Visit [facility] [address] [facility] [address] [place] [address] [place] [address] [facility] [address] [place] [address] documented as of this encounter Goals Goal Patient Goal Type Associated Problems Recent Progress Patient-Stated? Author Blood Pressure < 140/90 Blood Pressure 96/68(2023 2:34 PM LIVESTOCK AGENT) Rere Vargas Note: Caring for Your [...] Related Tools, and click ? HBP Trackers.? 6-941-REB-USA-1 or ( ) National Heart, Lung and Blood [place]: http://www.nhlbi.nih.gov/health/infoctr/index.htm Blood Pressure < 140/90 Blood Pressure 96/68(2023 2:34 PM LIVESTOCK AGENT) Rere Vargas Note: Caring for Your [...] Related Tools, and click ? HBP Trackers.? 6-634-ALA-USA-1 or ( ) National Heart, Lung and Blood [place]: http://www.nhlbi.nih.gov/health/infoctr/index.htm Blood Pressure < 140/90 Blood Pressure 96/68(2023 2:34 PM LIVESTOCK AGENT) Cassie Parks Note: Caring for Your [...] Related Tools, and click ? HBP Trackers.? 3-056-UYS-USA-1 or ( ) National Heart, Lung and Blood [place]: http://www.nhlbi.nih.gov/health/infoctr/index.htm Exercise 5X per week (30 min [...] diabetes: ? ? [place] Diabetes Association: www.diabetes.org 0-478-SBTTCYMW ( ) ? ? [place] Diabetes Association-Support group line: www.professional.diabetes.org ? ? 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
--- OUTSIDE RECORDS SUMMARY | 2024-04-03 02:25 | XMS_ITS | Encounter Summary ---
Author Organization [facility] Address [address] [place] [address] Care Team Providers Care Hand Bulldozer Name Role Phone Ricco Andrew MD Unavailable Fawn Ramon DPM Unavailable [phone] Chris Aden MD Primary Care Provider [phone] Chris Aden MD Unavailable Reason for Visit * Reason Onset Date Comments Order 05/28/2023 Encounter Details Date Type Department Care Team (Late st Contact Info) Description 05/28/2023 Telephone [facility] - Family Medicine [id number] [place] [address] Chris Aden MD [phone] [place] [phone] Order Social History Tobacco Use Types [...] before upcoming appt next week on 06/01/23. [facility] needs to be faxed the lab orders at [phone] and pt called to be made aware once labs are ordered. MONITOR TECH documented in this encounter Plan of Treatment Upcoming Encounters Date Type Department Care Team (Late st Contact Info) Description 04/07/2024 10:00 AM EKG MONITOR TECH Office Visit [address] [address] Evelin Blanco, SHEET METAL FOREMAN-GUNNER'S MATE [id number] [place] [address] 06/06/2024 2:00 PM CDT Office Visit [address] [address] Chris Aden MD [address] [place] [address] documented as of this encounter Goals Goal Patient Goal Type Associated Problems Recent Progress Patient-Stated? Author Blood Pressure < 140/90 Blood Pressure 96/68(2023 2:34 PM EKG MONITOR TECH) Rere Vargas Note: Caring for Your High [...] Related Tools, and click ? HBP Trackers.? 9-365-ROM-USA-1 or ( ) National Heart, Lung and Blood [place]: http://www.nhlbi.nih.gov/health/infoctr/index.htm Blood Pressure < 140/90 Blood Pressure 96/68(2023 2:34 PM EKG MONITOR TECH) Rere Vargas Note: Caring for Your High [...] Related Tools, and click ? HBP Trackers.? 6-794-HZF-USA-1 or ( ) National Heart, Lung and Blood [place]: http://www.nhlbi.nih.gov/health/infoctr/index.htm Blood Pressure < 140/90 Blood Pressure 96/68(2023 2:34 PM EKG MONITOR TECH) Cassie Parks Note: Caring for Your High [...] Related Tools, and click ? HBP Trackers.? 4-802-PFK-USA-1 or ( ) National Heart, Lung and Blood [place]: http://www.nhlbi.nih.gov/health/infoctr/index.htm Exercise 5X per week (30 min [...] diabetes: ? ? [place] Diabetes Association: www.diabetes.org 5-428-PXQFAQWC ( ) ? ? [place] Diabetes Association-Support group line: www.professional.diabetes.org ? ? [place] Heart Association: www.heart.org or 5-222-QAA-USA-1 ( ) [employer] MyPlate: www.Advanced Digital Designmyplate.gov Have labs drawn Lifestyle Rere Vargas Note: [...] on filedocumented in this encounter Care Teams Hand Bulldozer Relationship Specialty [place] [address] [place] [address] PCP - General Internal Medicine 01/26/22 [place] [address] [place] [address] PCP - Attributed-[facility] 02/19/22 [place] [address] [facility] [address] [place] [address] Ophthalmology 04/06/16 Fawn Ramon DPM [address] [place] [address] Podiatry 01/24/21 documented as of this encounter
--- OUTSIDE RECORDS SUMMARY | 2024-04-03 02:25 | XMS_ITS | Encounter Summary ---
Author Organization [facility] Address [address] [facility] [place] [address] Care Team Providers Care Centrifuge Separator Tender Name Role Phone Ricco Andrew MD Unavailable [phone] Fawn Ramon DPM Unavailable [phone] Chris Aden MD Primary Care Provider [phone] Chris Aden MD Unavailable Reason for Visit * Reason Comments ER UC Follow-up Encounter Details Date Type Department Care Team (Late st Contact Info) Description 10/13/2023 1:40 PM CDT Office Visit [facility] - Family Medicine [address] [facility] [address] [place] [address] Evelin Blanco, JOSETTE-FICTION AND NONFICTION WRITER PROSE [address] [facility] [address] [place] [address] Right wrist pain (Primary Dx); [...] not use it. They did xray at [facility] and was told that he had osteoarthritis [...] st Contact Info) Description 04/07/2024 10:00 AM ROLL OVER PRESS OPERATOR Office Visit [facility] [address] [facility] [address] [place] [address] Evelin Blanco APRN-CNP [address] [facility] [address] [place] [address] 06/06/2024 2:00 PM CDT Office Visit [facility] [address] [facility] [address] [place], [place] [address] [place] [address] [facility] [address] [place] [address] documented as of this encounter Goals Goal Patient Goal Type Associated Problems Recent Progress Patient-Stated? Author Blood Pressure < 140/90 Blood Pressure 96/68(2023 2:34 PM ROLL OVER PRESS OPERATOR) Rere Vargas Note: Caring for Your [...] Related Tools, and click ? HBP Trackers.? 6-043-IRC-USA-1 or ( ) National Heart, Lung and Blood [place]: http://www.nhlbi.nih.gov/health/infoctr/index.htm Blood Pressure < 140/90 Blood Pressure 96/68(2023 2:34 PM ROLL OVER PRESS OPERATOR) Rere Vargas Note: Caring for Your [...] Related Tools, and click ? HBP Trackers.? 9-711-YXI- or ( ) National Heart, Lung and Blood [place]: http://www.nhlbi.nih.gov/health/infoctr/index.htm Blood Pressure < 140/90 Blood Pressure 96/68(2023 2:34 PM ROLL OVER PRESS OPERATOR) Cassie Parks Note: Caring for Your [...] Related Tools, and click ? HBP Trackers.? 4-731-VWN-USA- or ( ) National Heart, Lung and Blood [place]: http://www.nhlbi.nih.gov/health/infoctr/index.htm Exercise 5X per week (30 min per time) Exercise No Rere Kaufman Note: The [place] College of Sports Medicine [...] diabetes: ? ? [place] Diabetes Association: www.diabetes.org 7-224-YCECRCSC ( ) ? ? [place] Diabetes Association-Support group line: www.professional.diabetes.org ? ? [place] Heart Association: www.heart.org or 4-189-AZX-USA-1 ( ) [employer] MyPlate: www.Inari Medicalmyplate.gov Have labs drawn Lifestyle Rere Vargas [...] laterality documented in this encounter Care Teams Centrifuge Separator Tender Relationship Specialty [place] [address] [place] [address] PCP - General Internal Medicine 01/26/22 [place] [address] [place] [address] PCP - On License Of [facility] 02/19/22 [place] [address] [facility] [address] [place] [address] Ophthalmology 04/06/16 Fawn Ramon DPM [address] [place] [address] Podiatry 01/24/21 documented as of this encounter
--- OUTSIDE RECORDS SUMMARY | 2024-04-03 02:25 | XMS_ITS | Encounter Summary ---
Author Organization [facility] Address [address] [facility] [place] [address] Care Team Providers Care Project Coach Name Role Phone Ricco Andrew MD Unavailable [phone] Fawn Ramon DPM Unavailable [phone] Chris Aden MD Primary Care Provider [phone] Chris Aden MD Unavailable Reason for Visit * Reason Onset Date Comments Late Cancel 10/05/2023 Encounter Details Date Type Department Care Team (Late st Contact Info) Description 10/05/2023 Telephone [facility] - Family Medicine [id number] [place] [address] Chris [place] [address] [place] [address] Late Cancel Social History Tobacco Use [...] st Contact Info) Description 04/07/2024 10:00 AM VENDING STAND SUPERVISOR Office Visit [facility] [address] [facility] [address] [place] [address] Evelin Blanco APRN-BUS MATRON [address] [facility] [address] [place] [address] 06/06/2024 2:00 PM CDT Office Visit [facility] [address] [facility] [address] [place] [address] [place] [address] [facility] [address] [place] [address] documented as of this encounter Goals Goal Patient Goal Type Associated Problems Recent Progress Patient-Stated? Author Blood Pressure < 140/90 Blood Pressure 96/68(2023 2:34 PM VENDING STAND SUPERVISOR) Rere Vargas Note: Caring for Your [...] Related Tools, and click ? HBP Trackers.? 9-973-WTX-USA-1 or ( ) National Heart, Lung and Blood [place]: http://www.nhlbi.nih.gov/health/infoctr/index.htm Blood Pressure < 140/90 Blood Pressure 96/68(2023 2:34 PM VENDING STAND SUPERVISOR) Rere Vargas Note: Caring for Your [...] Related Tools, and click ? HBP Trackers.? 1-604-FME-USA-1 or ( ) National Heart, Lung and Blood [place]: http://www.nhlbi.nih.gov/health/infoctr/index.htm Blood Pressure < 140/90 Blood Pressure 96/68(2023 2:34 PM VENDING STAND SUPERVISOR) Cassie Parks Note: Caring for Your [...] Related Tools, and click ? HBP Trackers.? 3-130-XWR-USA-1 or ( ) National Heart, Lung and Blood [place]: http://www.nhlbi.nih.gov/health/infoctr/index.htm Exercise 5X per week (30 min [...] diabetes: ? ? [place] Diabetes Association: www.diabetes.org 0-742-IRALDKRF ( ) ? ? [place] Diabetes Association-Support group line: www.professional.diabetes.org ? ? [place] Heart Association: www.heart.org or 9-189-IWX-[facility]-1 ( ) E [employer]k MyPlate: www.Amnismyplate.gov Have labs drawn Lifestyle No Rere Kaufman [...] on filedocumented in this encounter Care Teams Project Coach Relationship Specialty [place] [address] [place] [address] PCP - General Internal Medicine 01/26/22 [place] [address] [place] [address] PCP - [facility] 02/19/22 [place] [address] [facility] [facility] [address] [place] [address] Ophthalmology 04/06/16 Fawn Ramon DPM [address] [place] [address] Podiatry 01/24/21 documented as of this encounter
--- OUTSIDE RECORDS SUMMARY | 2024-04-03 02:25 | XMS_ITS | Encounter Summary ---
Author Organization [facility] Address [address] [facility] [place] [address] Care Team Providers Care Felled Seam Operator Chainstitch Name Role Phone Ricco Andrew MD Unavailable [phone] Fawn Ramon DPM Unavailable [phone] Chris Aden MD Primary Care Provider [phone] Chris Aden MD Unavailable Reason for Visit * Reason Comments Refill Request Encounter Details Date Type Department Care Team (Late st Contact Info) Description 05/12/2023 Refill [facility] - Family Medicine [address] [place] [address] Chris Aden MD [address] [place] [address] Refill Request Social History Tobacco Use [...] st Contact Info) Description 04/07/2024 10:00 AM CASHIERS SUPERVISOR Office Visit [facility] [address] [facility] [address] [place] [address] [address]ITA [address] [facility] [address] [place] [address] 06/06/2024 2:00 PM CDT Office Visit [facility] [address] [facility] [address] [place] [address] [place] [address] [facility] [address] [place] [address] documented as of this encounter Goals Goal Patient Goal Type Associated Problems Recent Progress Patient-Stated? Author Blood Pressure < 140/90 Blood Pressure 96/68(2023 2:34 PM CASHIERS SUPERVISOR) Rere Vargas Note: Caring for Your [...] Related Tools, and click ? HBP Trackers.? 2-965-QRP-USA-1 or ( ) National Heart, Lung and Blood [place]: http://www.nhlbi.nih.gov/health/infoctr/index.htm Blood Pressure < 140/90 Blood Pressure 96/68(2023 2:34 PM CASHIERS SUPERVISOR) Rere Vargas Note: Caring for Your [...] Related Tools, and click ? HBP Trackers.? 4-652-IAO-USA-1 or ( ) National Heart, Lung and Blood [place]: http://www.nhlbi.nih.gov/health/infoctr/index.htm Blood Pressure < 140/90 Blood Pressure 96/68(2023 2:34 PM CASHIERS SUPERVISOR) Cassie Parks Note: Caring for Your [...] Related Tools, and click ? HBP Trackers.? 3-545-VCT-USA-1 or ( ) National Heart, Lung and Blood [place]: http://www.nhlbi.nih.gov/health/infoctr/index.htm Exercise 5X per week (30 min per time) Exercise Rere Vargas Note: The [place] College of Sports Medicine [...] diabetes: ? ? [place] Diabetes Association: www.diabetes.org 2-880-JFECDLPW ( ) ? ? [place] Diabetes Association-Support group line: www.professional.diabetes.org ? ? [place] Heart Association: www.heart.org or 4-457-FBI-USA-1 ( ) [employer] MyPlate: www.ZetrOZmyplate.gov Have labs drawn Lifestyle No Rere Kaufman [...] dermatitis documented in this encounter Care Teams Felled Seam Operator Chainstitch Relationship Specialty [place] [address] [address] [place] [address] PCP - General Internal Medicine 01/26/22 [place] [address] [place] [address] PCP - [facility] 02/19/22 [place] [address] [facility] [address] [place] [address] Ophthalmology 04/06/16 Fawn Ramon DPM [address] [address] [place] [address] Podiatry 01/24/21 documented as of this encounter
--- OUTSIDE RECORDS SUMMARY | 2024-04-03 02:25 | XMS_ITS | Encounter Summary ---
Author Organization [facility] Address [address] [facility] [place] [address] Care Team Providers Care Assistant Family Teacher Name Role Phone Ricco Andrew MD Unavailable [phone] Fawn Ramon DPM Unavailable [phone] Chris Aden MD Primary Care Provider [phone] Chris Aden MD Unavailable Reason for Visit * Reason Onset Date Comments Update 02/14/2024 Pneumonia 02/14/2024 Encounter Details Date Type Department Care Team (Late st Contact Info) Description 02/14/2024 Telephone [facility] - Family Medicine [address] [place] [address] [place] [address] [address] Update; Pneumonia Social History Tobacco [...] (on HIPAA) calling stating pt was at [facility] on 02/13/24. Pt did not want [...] 5 days. Pt daughter was advised by [facility] that office would have to call and request pt records.[facility] phone number is [phone]. Pt daughter scheduled pt a hospital follow-up on 02/22/24 at 1400 with ASHER See. SCALER documented in this encounter Plan of Treatment Upcoming Encounters Date Type Department Care Team (Late st Contact Info) Description 04/07/2024 10:00 AM POND SCALER Office Visit [facility] [id number] [place] [address] [place] [address] Evelin Blanco, JOSETTE-EXECUTIVE COMMUNITY PLANNING [address] [place] [address] 06/06/2024 2:00 PM CDT Office Visit [facility] [phone] [place] [address] [address] [place] [address] Chris [place] [id number] [place] [address] documented as of this encounter Goals Goal Patient Goal Type Associated Problems Recent Progress Patient-Stated? Author Blood Pressure < 140/90 Blood Pressure 96/68(2023 2:34 PM POND SCALER) Rere Vargas Note: Caring for Your High [...] Where can I go for more information? [place] Heart Association National Center: http://www.americanheart.org 1. In the top header, click ? Conditions? . 2. In the top header, click ? high blood pressure.? 3. For a printable blood pressure tracker, scroll toward the bottom of the page to Related Tools, and click ? HBP Trackers.? 1-560-GPO-USA-1 or ( ) National Heart, Lung and Blood [place]: http://www.nhlbi.nih.gov/health/infoctr/index.htm Blood Pressure < 140/90 Blood Pressure 96/68(2023 2:34 PM POND SCALER) Rere Vargas Note: Caring for Your High [...] Where can I go for more information? [place] Heart Association National Center: http://www.americanheart.org 1. In the top header, click ? Conditions? . 2. In the top header, click ? high blood pressure.? 3. For a printable blood pressure tracker, scroll toward the bottom of the page to Related Tools, and click ? HBP Trackers.? 8-748-KGT-USA-1 or ( ) National Heart, Lung and Blood [place]: http://www.nhlbi.nih.gov/health/infoctr/index.htm Blood Pressure < 140/90 Blood Pressure 96/68(2023 2:34 PM POND SCALER) Cassie Parks Note: Caring for Your High [...] Where can I go for more information? [place] Heart Association National Center: http://www.americanheart.org 1. In the top header, click ? Conditions? . 2. In the top header, click ? high blood pressure.? 3. For a printable blood pressure tracker, scroll toward the bottom of the page to Related Tools, and click ? HBP Trackers.? 1-737-SWQ-USA-1 or ( ) National Heart, Lung and Blood [place]: http://www.nhlbi.nih.gov/health/infoctr/index.htm Exercise 5X per week (30 min per time) Exercise No Rere Kaufman Note: The [place] College of Sports Medicine recommends all adults [...] how to manage your diabetes: ? ? [place] Diabetes Association: www.diabetes.org 6-817-BTGFEBJN ( ) ? ? [place] Diabetes Association-Support group line: www.professional.diabetes.org ? ? [place] Heart Association: www.heart.org or 3-851-SRU-USA-1 ( ) [employer] MyPlate: www.choosemyplate.gov Have labs drawn Lifestyle No [...] filedocumented in this encounter Care Teams Assistant Family Teacher Relationship Specialty [place] [address] [place] [address] PCP - General Internal Medicine 01/26/22 [place] [address] [place] [address] PCP - [facility] 02/19/22 [place] [address] [facility] [address] [place] [address] Ophthalmology 04/06/16 Fawn Ramon DPM [address] [address] [place], [place] [address] Podiatry 01/24/21 documented as of this encounter
--- OUTSIDE RECORDS SUMMARY | 2024-04-03 02:25 | XMS_ITS | Encounter Summary ---
Author Organization [facility] Address [address] [place] [address] Care Team Providers Care Psychodramatist Name Role Phone Ricco Andrew MD Unavailable [phone] Fawn Ramon DPM Unavailable [phone] Chris Aden MD Primary Care Provider [phone] Chris Aden MD Unavailable Encounter Details Date [...] Contact Info) Description 04/07/2024 10:00 AM POLICE COMMANDING OFFICER Office Visit [facility] - Family Medicine [address] [facility] [address] [place] [address] Evelin Blanco, JOSETTE-DENIS [address] [facility] [address] [place] [address] 06/06/2024 2:00 PM CDT Office Visit [facility] Family Medicine [address] [facility] [address] [place] [address] [place] [address] [facility] [address] [place] [phone] documented as of this encounter Goals Goal Patient Goal Type Associated Problems Recent Progress Patient-Stated? Author Blood Pressure < 140/90 Blood Pressure 96/68(2023 2:34 PM POLICE COMMANDING OFFICER) Rere Vargas Note: Caring for Your [...] Related Tools, and click ? HBP Trackers.? 8-567-VVE-USA- or ( ) National Heart, Lung and Blood [place]: http://www.nhlbi.nih.gov/health/infoctr/index.htm Blood Pressure < 140/90 Blood Pressure 96/68(2023 2:34 PM POLICE COMMANDING OFFICER) Rere Vargas Note: Caring for Your [...] Related Tools, and click ? HBP Trackers.? 7-025-KCB-USA-1 or ( ) National Heart, Lung and Blood [place]: http://www.nhlbi.nih.gov/health/infoctr/index.htm Blood Pressure < 140/90 Blood Pressure 96/68(2023 2:34 PM POLICE COMMANDING OFFICER) Cassie Parks Note: Caring for Your [...] Related Tools, and click ? HBP Trackers.? 1-687-YJG-USA-1 or ( ) National Heart, Lung and Blood [place]: http://www.nhlbi.nih.gov/health/infoctr/index.htm Exercise 5X per week (30 min per time) Exercise Rere Vargas Note: The [place] College of Sports Medicine [...] diabetes: ? ? [place] Diabetes Association: www.diabetes.org 8-988-IOLFKCCK ( ) ? ? [place] Diabetes Association-Support group line: www.professional.diabetes.org ? ? [place] Heart Association: www.heart.org or 1-032-TON-USA-1 ( ) [employer] MyPlate: www.I-MDmyplate.gov Have labs drawn Lifestyle Rere Vargas Note: [...] on filedocumented in this encounter Care Teams Psychodramatist Relationship Specialty [place] [address] [place] [phone] PCP - General Internal Medicine 01/26/22 [place] [address] [place] [phone] PCP - Attributed-[facility] 02/19/22 [place] [address] [address] Ophthalmology 04/06/16 Fawn Ramon DPM [address] [place] [address] Podiatry 01/24/21 documented as of this encounter
--- OUTSIDE RECORDS SUMMARY | 2024-04-03 02:25 | XMS_ITS | Encounter Summary ---
Author Organization [facility] Address [address] [facility] [place] [address] Care Team Providers Care Limerock Tower Loader Name Role Phone Ricco Andrew MD Unavailable [phone] Fawn Ramon DPM Unavailable [phone] Chris Aden MD Primary Care Provider [phone] Chris Aden MD Unavailable Clarice Hansen RN Unavailable [phone] Reason for Visit * Reason Onset Date Comments Transitional Care 02/28/2024 Encounter Details Date Type Department Care Team (Late st Contact Info) Description 02/28/2024 Transitional Care [facility] - Care Coordination [address] [place] [phone] Clarice Hansen RN Transitional Care Social History [...] Recorded Patient Health Questionnaire-2 Score 0 02/28/2024 [facility] [place] of Occupat ional Health - Occupational Stress [...] any time in the past 12 m [facility], were you homeless or living in a long term (including now)? No 02/24/2024 Sex and Gender [...] for other providers or community resources? Yes [facility]OR HOSPICE OPERATIONS * Telephone Encounter - Clarice Hansen RN - 02/28/2024 9:47 AM CST Readmission Risk Score 14* at 9:48 AM 02/28/2024. Physician to address items 1 through 4 below: [facility] 02/25, dx hypotension. Cassie, daughter, stated [...] Deficiency Clarice Hansen RN 02/28/2024 9:48 AM CTOR HOSPICE OPERATIONS documented in this encounter Plan of Treatment Upcoming Encounters Date Type Department Care Team (Late st Contact Info) Description 04/07/2024 10:00 AM DIRECTOR HOSPICE OPERATIONS Office Visit [facility] Family Medicine [address] [place] [address] Francis Evelin, SERVICE DISMANTLER-GENERATOR SWITCHBOARD OPERATOR [address] [facility] [address] [place] [address] 06/06/2024 2:00 PM CDT Office Visit [facility] Family Medicine [address] [facility] [address] [place] [address] [place] [address] [facility] [address] [place] [address] documented as of this encounter Goals Goal Patient Goal Type Associated Problems Recent Progress Patient-Stated? Author Blood Pressure < 140/90 Blood Pressure 96/68(2023 2:34 PM DIRECTOR HOSPICE OPERATIONS) Rere Vargas Note: Caring for Your High [...] Where can I go for more information? [place] Heart Association National Center: http://www.americanheart.org 1. In the top header, click ? Conditions? . 2. In the top header, click ? high blood pressure.? 3. For a printable blood pressure tracker, scroll toward the bottom of the page to Related Tools, and click ? HBP Trackers.? 9-052-JLP-USA- or ( ) National Heart, Lung and Blood [place]: http://www.nhlbi.nih.gov/health/infoctr/index.htm Blood Pressure < 140/90 Blood Pressure 96/68(2023 2:34 PM DIRECTOR HOSPICE OPERATIONS) Rere Vargas Note: Caring for Your High [...] Where can I go for more information? [place] Heart Association National Center: http://www.americanheart.org 1. In the top header, click ? Conditions? . 2. In the top header, click ? high blood pressure.? 3. For a printable blood pressure tracker, scroll toward the bottom of the page to Related Tools, and click ? HBP Trackers.? 4-290-KEZ-USA- or ( ) National Heart, Lung and Blood [place]: http://www.nhlbi.nih.gov/health/infoctr/index.htm Blood Pressure < 140/90 Blood Pressure 96/68(2023 2:34 PM DIRECTOR HOSPICE OPERATIONS) Cassie Parks Note: Caring for Your High [...] Where can I go for more information? [place] Heart Association National Center: http://www.americanheart.org 1. In the top header, click ? Conditions? . 2. In the top header, click ? high blood pressure.? 3. For a printable blood pressure tracker, scroll toward the bottom of the page to Related Tools, and click ? HBP Trackers.? 7-358-FRY-USA-1 or ( ) National Heart, Lung and Blood [place]: http://www.nhlbi.nih.gov/health/infoctr/index.htm Exercise 5X per week (30 min per time) Exercise Rere Vargas Note: The [place] College of Sports Medicine recommends all adults [...] how to manage your diabetes: ? ? [place] Diabetes Association: www.diabetes.org 0-499-VEDAWBXU ( ) ? ? [place] Diabetes Association-Support group line: www.professional.diabetes.org ? ? [place] Heart Association: www.heart.org or 4-525-BWB-USA-1 ( ) USDA MyPlate: www.VouchedFormyplate.gov Have labs drawn Lifestyle Rere Vargas Note: [...] on filedocumented in this encounter Care Teams Limerock Tower Loader Relationship Specialty [place] [address] [place] [address] PCP - General Internal Medicine 01/26/22 [place] [address] [address] [place] [address] PCP - [facility] 02/19/22 [place] [address] [facility] [address] [place] [address] Ophthalmology 04/06/16 Fawn Ramon DPM [address] [place], [place] [id number] Podiatry 01/24/21 Clarice Hansen RN Machinist SupervisorLinotype Machinist Apprentice 02/28/24 02/28/24 documented as of this encounter
--- OUTSIDE RECORDS SUMMARY | 2024-04-03 02:25 | XMS_ITS | Encounter Summary ---
Author Organization [facility] Address [address] [place] [address] Care Team Providers Care Tool Maker Apprentice Name Role Phone Ricco Andrew MD Unavailable [phone] Fawn Ramon DPM Unavailable [phone] Chris Aden MD Primary Care Provider [phone] Chris Aden MD Unavailable Reason for Visit * Reason Onset Date Comments Record Request 02/21/2024 Encounter Details Date Type Department Care Team (Late st Contact Info) Description 02/21/2024 Telephone [facility] - Family Medicine [address] [place] [address] Chris Aden MD [id number] [place] [address] Record Request Social History Tobacco Use [...] fulfilled and [facility]. RVISOR KNITTING * Telephone Encounter - Eugenie Brown - 02/21/2024 10:40 AM CST Pts daughter Cassie called requesting DME order for wheelchair with corresponding chart notes be faxed to [facility] FAX [phone] RVISOR KNITTING documented in this encounter Plan of Treatment Upcoming Encounters Date Type Department Care Team (Late st Contact Info) Description 04/07/2024 10:00 AM SUPERVISOR KNITTING Office Visit [facility] [id number] [place] [address] Evelin Blanco, OUTSIDE PLANT FIELD ENGINEER-RESERVE OFFICER [address] [address] 06/06/2024 2:00 PM CDT Office Visit [facility] [id number] [place] [address] [place] [id number] [place] [address] documented as of this encounter Goals Goal Patient Goal Type Associated Problems Recent Progress Patient-Stated? Author Blood Pressure < 140/90 Blood Pressure 96/68(2023 2:34 PM SUPERVISOR KNITTING) Rere Vargas Note: Caring for Your High [...] Related Tools, and click ? HBP Trackers.? 0-699-FGJ-USA-1 or ( ) National Heart, Lung and Blood [place]: http://www.nhlbi.nih.gov/health/infoctr/index.htm Blood Pressure < 140/90 Blood Pressure 96/68(2023 2:34 PM SUPERVISOR KNITTING) Rere Vargas Note: Caring for Your High [...] Related Tools, and click ? HBP Trackers.? 6-849-MZM-USA-1 or ( ) National Heart, Lung and Blood [place]: http://www.nhlbi.nih.gov/health/infoctr/index.htm Blood Pressure < 140/90 Blood Pressure 96/68(2023 2:34 PM SUPERVISOR KNITTING) Cassie Parks Note: Caring for Your High [...] Related Tools, and click ? HBP Trackers.? 5-492-VAX-USA-1 or ( ) National Heart, Lung and Blood [place]: http://www.nhlbi.nih.gov/health/infoctr/index.htm Exercise 5X per week (30 min [...] ? ? [place] Diabetes Association: www.diabetes.org 8-801-UCZRAKAM ( ) ? ? [place] Diabetes Association-Support group line: www.professional.diabetes.org ? ? [place] Heart Association: www.heart.org or 1-217-FJK-USA-1 ( ) [employer] MyPlate: www.EMCASmyplate.gov Have labs drawn Lifestyle No Rere Kaufman [...] on filedocumented in this encounter Care Teams Tool Maker Apprentice Relationship Specialty [place] [address] [phone] PCP - General Internal Medicine 01/26/22 [place] [address] [place] [address] PCP - Attributed-[facility] 02/19/22 [place] [address] [facility] [address] [place] [address] Ophthalmology 04/06/16 Fawn Ramon DPM [address] [place] [address] Podiatry 01/24/21 documented as of this encounter
--- OUTSIDE RECORDS SUMMARY | 2024-04-03 02:25 | XMS_ITS | Encounter Summary ---
Author Organization [facility] Address [address] [place] [address] Care Team Providers Care Despatch Clerk Name Role Phone Ricco Andrew MD Unavailable [phone] Fawn Ramon DPKae Unavailable [phone] Chris Aden MD Primary Care Provider [phone] Chris Aden MD Unavailable Reason for Referral * Evaluate & Treat - Closed Specialty Diagnoses / Procedures Referred By Contac t Referred To Contact Diagnoses Type 2 diabetes mellitus with stage 3 chronic kidney disease, without long-term current use of insulin, unspecified whether stage 3a or 3b CKD ([place]) [place] [address] [place] [address] [place] [address] [address] [place] [address] Referral ID Status Reason Start Date Expiration Date V isits Requested Visits Authorized [id number] Closed Specialty Services Required 06/01/2023 05/31/2024 1 1 * Durable Medical Equipment (Routine) - Closed Specialty Diagnoses / Procedures Referred By Contrusty t Referred To Contact DME Services Diagnoses Unsteady gait Chris Aden [place] [address] [place] [address] Referral ID Status Reason Start Date Expiration Date V isits Requested Visits Authorized [id number] Closed Specialty Services Required 06/01/2023 05/31/2024 1 1 Reason for Visit * Reason Comments Medicare Subsequent Annual Wellness Visi t Encounter Details Date Type Department Care Team (Late st Contact Info) Description 06/01/2023 1:30 PM CDT Office Visit [facility] Family Medicine [address] [place] [address] [place] [address] [place] [address] Unsteady gait (Primary Dx); Vitamin [...] Aden MD as PCP - Attributed-[facility] Ricco Johnson MD (Ophthalmology) Fawn Ramon DPM [...] st Contact Info) Description 04/07/2024 10:00 AM MACHINERY ERECTOR Office Visit [facility] [address] [place] [address] [address] [place] [address] Evelin Blanco, PROFESSOR OF ECONOMICS-BARROW WORKER [address] [facility] [address] [place] [address] 06/06/2024 2:00 PM CDT Office Visit [facility] [address] [facility] [address] [place] [address] [place] [address] [place] [address] Scheduled Orders Name Type Priority [...] < 140/90 Blood Pressure 96/68(2023 2:34 PM MACHINERY ERECTOR) Rere Vargas Note: Caring for Your High [...] Related Tools, and click ? HBP Trackers.? 0-283-OKZ-USA-1 or ( ) National Heart, Lung and Blood [place]: http://www.nhlbi.nih.gov/health/infoctr/index.htm Blood Pressure < 140/90 Blood Pressure 96/68(2023 2:34 PM MACHINERY ERECTOR) Rere Vargas Note: Caring for Your High [...] Related Tools, and click ? HBP Trackers.? 6-190-ISX-USA-1 or ( ) National Heart, Lung and Blood [place]: http://www.nhlbi.nih.gov/health/infoctr/index.htm Blood Pressure < 140/90 Blood Pressure 96/68(2023 2:34 PM MACHINERY ERECTOR) Cassie Parks Note: Caring for Your High [...] Related Tools, and click ? HBP Trackers.? 9-484-XUZ-USA-1 or ( ) National Heart, Lung and Blood [place]: http://www.nhlbi.nih.gov/health/infoctr/index.htm Exercise 5X per week (30 min [...] diabetes: ? ? [place] Diabetes Association: www.diabetes.org 9-309-JWDVFHGF ( ) ? ? [place] Diabetes Association-Support group line: www.professional.diabetes.org ? ? [place] Heart Association: www.heart.org or 2-811-UJD-USA-1 ( ) [employer] MyPlate: www.Unleashed Softwaremyplate.gov Have labs drawn Lifestyle Rere Vargas [...] facility documented in this encounter Care Teams Despatch Clerk Relationship Specialty [place] [address] [place] [address] PCP - General Internal Medicine 01/26/22 [place] [address] [place] [phone] PCP - [facility] 02/19/22 [place] [address] [facility] [address] [place] [address] Ophthalmology 04/06/16 Fawn Ramon DPM [address] [place], [place] [phone] Podiatry 01/24/21 documented as of this encounter
--- OUTSIDE RECORDS SUMMARY | 2024-04-03 02:25 | XMS_ITS | Encounter Summary ---
Author Organization [facility] Address [address] [facility] [address] Care Team Providers Care Bottling Line Attendant Name Role Phone Ricco Andrew MD Unavailable Fawn Ramon DPM Unavailable [phone] Chris Aden MD Primary Care Provider [phone] Chris Aden MD Unavailable Clarice Hansen RN Unavailable [phone] Encounter Details Date Type Department Care [...] Recorded Patient Health Questionnaire-2 Score 0 02/28/2024 [facility] [place] of Occupat ional Health - Occupational Stress [...] any time in the past 12 m [facility], were you homeless or [...] st Contact Info) Description 04/07/2024 10:00 AM ASTRO TECHNICIAN Office Visit [facility] [id number] [place] [address] [address] [place] [address] Evelin Blanco, CUSTOMER SALES CONSULTANT-LEAD ANDROID DEVELOPER [address] [facility] [address] [place] [address] 06/06/2024 2:00 PM CDT Office Visit [facility] [id number] [place] [address] [address] [place] [address] [place] [address] [place] [address] documented as of this encounter Goals Goal Patient Goal Type Associated Problems Recent Progress Patient-Stated? Author Blood Pressure < 140/90 Blood Pressure 96/68(2023 2:34 PM ASTRO TECHNICIAN) Rere Vargas Note: Caring for Your [...] Related Tools, and click ? HBP Trackers.? 8-385-UJB-USA-1 or ( ) National Heart, Lung and Blood [place]: http://www.nhlbi.nih.gov/health/infoctr/index.htm Blood Pressure < 140/90 Blood Pressure 96/68(2023 2:34 PM ASTRO TECHNICIAN) No Rere Kaufman Note: Caring for Your [...] Related Tools, and click ? HBP Trackers.? 4-911-KGN-USA-1 or ( ) National Heart, Lung and Blood [place]: http://www.nhlbi.nih.gov/health/infoctr/index.htm Blood Pressure < 140/90 Blood Pressure 96/68(2023 2:34 PM ASTRO TECHNICIAN) No Cassie Marie Note: Caring for Your [...] Related Tools, and click ? HBP Trackers.? 2-655-PYS-USA-1 or ( ) National Heart, Lung and Blood [place]: http://www.nhlbi.nih.gov/health/infoctr/index.htm Exercise 5X per week (30 min per time) Exercise No Rere Kaufman Note: The [place] College of Sports Medicine [...] diabetes: ? ? [place] Diabetes Association: www.diabetes.org 8-936-JYQZAPNE ( ) ? ? [place] Diabetes Association-Support group line: www.professional.diabetes.org ? ? [place] Heart Association: www.heart.org or 6-786-KOQ-USA-1 ( ) [employer] MyPlate: www.SuperMamamyplate.gov Have labs drawn Lifestyle Rere Vargas Note: [...] on filedocumented in this encounter Care Teams Bottling Line Attendant Relationship Specialty [place] [address] [place] [address] PCP - General Internal Medicine 01/26/22 [place] [address] [place] [address] PCP - [facility] 02/19/22 [place] [address] [facility] [address] [place] [address] Ophthalmology 04/06/16 Fawn Ramon DPM [address] [place] [address] Podiatry 01/24/21 Clarice Hansen RN Director Of Retail OperationsJira Administrator 02/28/24 02/28/24 documented as of this encounter
--- OUTSIDE RECORDS SUMMARY | 2024-04-03 02:25 | XMS_ITS | Encounter Summary ---
Author Organization [facility] Address [address] [facility] [place] [address] Care Team Providers Care Brush Fabrication Supervisor Name Role Phone Ricco Andrew MD Unavailable [phone] Fawn Ramon DPM Unavailable [phone] Chris Aden MD Primary Care Provider [phone] Chris Aden MD Unavailable Reason for Visit * Reason Comments Refill Request Encounter Details Date Type Department Care Team (Late st Contact Info) Description 05/21/2023 Refill [facility] - Family Medicine [address] [place] [address] Chris Aden MD [address] [place] [address] Refill Request Social History Tobacco Use [...] st Contact Info) Description 04/07/2024 10:00 AM FAMILY SERVICES WORKER Office Visit [facility] [address] [facility] [address] [place] [address] Chayodevin EvelinNIKITA [address] [facility] [address] [place] [address] 06/06/2024 2:00 PM CDT Office Visit [facility] [address] [facility] [address] [place] [address] [place] [address] [facility] [address] [place] [address] documented as of this encounter Goals Goal Patient Goal Type Associated Problems Recent Progress Patient-Stated? Author Blood Pressure < 140/90 Blood Pressure 96/68(2023 2:34 PM FAMILY SERVICES WORKER) Rere Vargas Note: Caring for Your [...] Where can I go for more information? [place] Heart Association National Center: http://www.americanheart.org 1. In the top header, click ? Conditions? . 2. In the top header, click ? high blood pressure.? 3. For a printable blood pressure tracker, scroll toward the bottom of the page to Related Tools, and click ? HBP Trackers.? 0-699-DYP-USA-1 or ( ) National Heart, Lung and Blood [place]: http://www.nhlbi.nih.gov/health/infoctr/index.htm Blood Pressure < 140/90 Blood Pressure 96/68(2023 2:34 PM FAMILY SERVICES WORKER) Rere Vargas Note: Caring for Your [...] Where can I go for more information? [place] Heart Association National Center: http://www.americanheart.org 1. In the top header, click ? Conditions? . 2. In the top header, click ? high blood pressure.? 3. For a printable blood pressure tracker, scroll toward the bottom of the page to Related Tools, and click ? HBP Trackers.? 6-506-UWG-USA-1 or ( ) National Heart, Lung and Blood [place]: http://www.nhlbi.nih.gov/health/infoctr/index.htm Blood Pressure < 140/90 Blood Pressure 96/68(2023 2:34 PM FAMILY SERVICES WORKER) Cassie Parks Note: Caring for Your High [...] Where can I go for more information? [place] Heart Association National Center: http://www.americanheart.org 1. In the top header, click ? Conditions? . 2. In the top header, click ? high blood pressure.? 3. For a printable blood pressure tracker, scroll toward the bottom of the page to Related Tools, and click ? HBP Trackers.? 0-433-HZZ-USA-1 or ( ) National Heart, Lung and Blood [place]: http://www.nhlbi.nih.gov/health/infoctr/index.htm Exercise 5X per week (30 min per time) Exercise Rere Vargas Note: The [place] College of Sports Medicine recommends all adults [...] how to manage your diabetes: ? ? [place] Diabetes Association: www.diabetes.org 4-406-QRAGWQRF ( ) ? ? [place] Diabetes Association-Support group line: www.professional.diabetes.org ? ? [place] Heart Association: www.heart.org or 5-859-NLK-USA-1 ( ) [employer] MyPlate: www.Penelope's Pursemyplate.gov Have labs drawn Lifestyle No Rere Kaufman [...] on filedocumented in this encounter Care Teams Brush Fabrication Supervisor Relationship Specialty [place] [address] [place] [address] PCP - General Internal Medicine 01/26/22 [place] [address] [place] [address] PCP - [facility] 02/19/22 [place] [address] [facility] [address] [place] [address] Ophthalmology 04/06/16 Fawn Ramon DPM [address] [address] [place] [address] Podiatry 01/24/21 documented as of this encounter
--- OUTSIDE RECORDS SUMMARY | 2024-04-03 02:25 | XMS_ITS | Encounter Summary ---
Author Organization [facility] Address [address] [facility] [place] [address] Care Team Providers Care Retail Operations Manager Name Role Phone Ricco Andrew MD Unavailable [phone] Fawn Ramon DPM Unavailable [phone] Chris Aden MD Primary Care Provider [phone] Chris Aden MD Unavailable Encounter Details Date [...] Contact Info) Description 04/07/2024 10:00 AM TAX CONSULTANT Office Visit [facility] - Family Medicine [address] [facility] [address] [place] [address] Evelin Blanco, JOSETTE-DENIS [address] [facility] [address] [place] [address] 06/06/2024 2:00 PM CDT Office Visit [facility] Family Medicine [address] [facility] [address] [place] [address] [place] [address] [facility] [address] [place] [phone] documented as of this encounter Goals Goal Patient Goal Type Associated Problems Recent Progress Patient-Stated? Author Blood Pressure < 140/90 Blood Pressure 96/68(2023 2:34 PM TAX CONSULTANT) Rere Vargas Note: Caring for Your [...] Where can I go for more information? English Heart Association National Center: http://www.americanheart.org 1. In the top header, click ? Conditions? . 2. In the top header, click ? high blood pressure.? 3. For a printable blood pressure tracker, scroll toward the bottom of the page to Related Tools, and click ? HBP Trackers.? 9-573-PJM-USA- or ( ) National Heart, Lung and Blood [place]: http://www.nhlbi.nih.gov/health/infoctr/index.htm Blood Pressure < 140/90 Blood Pressure 96/68(2023 2:34 PM TAX CONSULTANT) Rere Vargas Note: Caring for Your [...] Where can I go for more information? English Heart Association National Center: http://www.americanheart.org 1. In the top header, click ? Conditions? . 2. In the top header, click ? high blood pressure.? 3. For a printable blood pressure tracker, scroll toward the bottom of the page to Related Tools, and click ? HBP Trackers.? 5-403-OSQ-USA-1 or ( ) National Heart, Lung and Blood [place]: http://www.nhlbi.nih.gov/health/infoctr/index.htm Blood Pressure < 140/90 Blood Pressure 96/68(2023 2:34 PM TAX CONSULTANT) Cassie Parks Note: Caring for Your [...] Where can I go for more information? English Heart Association National Center: http://www.americanheart.org 1. In the top header, click ? Conditions? . 2. In the top header, click ? high blood pressure.? 3. For a printable blood pressure tracker, scroll toward the bottom of the page to Related Tools, and click ? HBP Trackers.? 5-358-YGC-USA-1 or ( ) National Heart, Lung and Blood [place]: http://www.nhlbi.nih.gov/health/infoctr/index.htm Exercise 5X per week (30 min per time) Exercise Rere Vargas Note: The English College of Sports Medicine recommends all adults [...] how to manage your diabetes: ? ? English Diabetes Association: www.diabetes.org 4-718-FKMIRFMS ( ) ? ? English Diabetes Association-Support group line: www.professional.diabetes.org ? ? English Heart Association: www.heart.org or 1-071-XKR-USA-1 ( ) [place] MyPlate: www.Akimbo Financialmyplate.gov Have labs drawn Lifestyle Rere Vargas Note: [...] [place] [address] [place] [phone] PCP - General Internal Medicine 01/26/22 [place] [address] [address] [place] [phone] PCP - [facility] 02/19/22 [place] [address] [phone] Ophthalmology 04/06/16 Fawn Ramon DPM [address] [address] [place] [address] Podiatry 01/24/21 documented as of this encounter
--- OUTSIDE RECORDS SUMMARY | 2024-04-03 02:25 | XMS_ITS | Encounter Summary ---
Author Organization [facility] Address [address] [place] [address] Care Team Providers Care [place] Program Coordinator Name Role Phone Ricco Andrew MD Unavailable [phone] Fawn Ramon DPM Unavailable [phone] Chris Aden MD Primary Care Provider [phone] Chris Aden MD Unavailable Reason for Visit * Reason Onset Date Comments Injury Elbow 01/25/2024 Encounter Details Date Type Department Care Team (Late st Contact Info) Description 01/25/2024 Telephone [facility] - Family Medicine [id number] [place] [address] [place] [address] Chris Ad[place] [id number] [place] [phone] Injury Elbow Social History Tobacco Use [...] will call office back with an update. ETER * Telephone Encounter - Aby Dyer RN - 01/25/2024 11:29 AM TICKETER Pt daughter (on HIPAA) calling stating pt fell on 01/23/24 and fractured his right elbow. Pt was evaluated at [facility]. Pt daughter states if she can get [...] can refer pt to another HH agency. ETER documented in this encounter Plan of Treatment Upcoming Encounters Date Type Department Care Team (Late st Contact Info) Description 04/07/2024 10:00 AM TICKETER Office Visit [facility] [id number] [place] [address] [address] [place] [address] Evelin Blanco, REGULATORY AGENCY DIRECTOR-IT COMPLIANCE ANALYST [address] [facility] [address] [place] [address] 06/06/2024 2:00 PM CDT Office Visit [facility] [phone] [place] [address] [address] [place] [address] [place] dAen [place] [phone] [place] [address] [address] [place] [phone] documented as of this encounter Goals Goal Patient Goal Type Associated Problems Recent Progress Patient-Stated? Author Blood Pressure < 140/90 Blood Pressure 96/68(2023 2:34 PM TICKETER) No Rere Kaufman Note: Caring for Your [...] Where can I go for more information? Azerbaijani Heart Association National Center: http://www.americanheart.org 1. In the top header, click ? Conditions? . 2. In the top header, click ? high blood pressure.? 3. For a printable blood pressure tracker, scroll toward the bottom of the page to Related Tools, and click ? HBP Trackers.? 4-397-PKZ-USA-1 or ( ) National Heart, Lung and Blood [place]: http://www.nhlbi.nih.gov/health/infoctr/index.htm Blood Pressure < 140/90 Blood Pressure 96/68(2023 2:34 PM TICKETER) Rere Vargas Note: Caring for Your High [...] Where can I go for more information? Azerbaijani Heart Association National Center: http://www.americanheart.org 1. In the top header, click ? Conditions? . 2. In the top header, click ? high blood pressure.? 3. For a printable blood pressure tracker, scroll toward the bottom of the page to Related Tools, and click ? HBP Trackers.? 9-419-SGN-USA-1 or ( ) National Heart, Lung and Blood [place]: http://www.nhlbi.nih.gov/health/infoctr/index.htm Blood Pressure < 140/90 Blood Pressure 96/68(2023 2:34 PM TICKETER) Cassie Parks Note: Caring for Your High [...] Where can I go for more information? Azerbaijani Heart Association National Center: http://www.americanheart.org 1. In the top header, click ? Conditions? . 2. In the top header, click ? high blood pressure.? 3. For a printable blood pressure tracker, scroll toward the bottom of the page to Related Tools, and click ? HBP Trackers.? 5-301-PAW-USA-1 or ( ) National Heart, Lung and Blood [place]: http://www.nhlbi.nih.gov/health/infoctr/index.htm Exercise 5X per week (30 min per time) Exercise No Rere Kaufman Note: The Azerbaijani College of Sports Medicine recommends all adults [...] how to manage your diabetes: ? ? Azerbaijani Diabetes Association: www.diabetes.org 6-688-HLMWQIAV ( ) ? ? Azerbaijani Diabetes Association-Support group line: www.professional.diabetes.org ? ? Azerbaijani Heart Association: www.heart.org or 8-473-HNZ-USA-1 ( ) [place] MyPlate: www.Vidatronicmyplate.gov Have labs drawn Lifestyle Rere Vargas Note: [...] on filedocumented in this encounter Care Teams [place] Program Coordinator Relationship Specialty [place] [address] [place] [address] PCP - General Internal Medicine 01/26/22 [place] [address] [place] [address] PCP - [facility] 02/19/22 [place] [address] [facility] [address] [place] [address] Ophthalmology 04/06/16 Fawn Ramon DPM [address] [place] [address] Podiatry 01/24/21 documented as of this encounter
--- OUTSIDE RECORDS SUMMARY | 2024-04-03 02:25 | XMS_ITS | Encounter Summary ---
Author Organization [facility] Address [address] [facility] [place] [address] Care Team Providers Care Business Office Associate Name Role Phone Ricco Andrew MD Unavailable [phone] Fawn Ramon DPM Unavailable [phone] Chris Aden MD Primary Care Provider [phone] Chris Aden MD Unavailable Reason for Visit * Reason Comments ER UC Follow-up Encounter Details Date Type Department Care Team (Late st Contact Info) Description 09/03/2023 2:00 PM CDT Office Visit [facility] - Family Medicine [id number] [place] [address] [address] [place] [address] Evelin Blanco, JOSETTE-GRAB JACK WORKER [address] [facility] [address] [place] [address] Unsteady gait (Primary Dx); Type [...] allergies Trigger finger HPI: Pt was in [place] [facility] a couple of times over that [...] st Contact Info) Description 04/07/2024 10:00 AM BISQUE TILE BURNER Office Visit [facility] Family Medicine [address] [address] [place] [address] Evelin Blanco, BATCH HEAT TREAT OPERATOR-GRAB JACK WORKER [address] [facility] [address] [place] [address] 06/06/2024 2:00 PM CDT Office Visit [facility] - Family Medicine [address] [facility] [address] [place], [place] [phone] [place] [address] [facility] [address] [place] [address] documented as of this encounter Goals Goal Patient Goal Type Associated Problems Recent Progress Patient-Stated? Author Blood Pressure < 140/90 Blood Pressure 96/68(2023 2:34 PM BISQUE TILE BURNER) Rere Vargas Note: Caring for Your High [...] Related Tools, and click ? HBP Trackers.? 0-979-PYX-USA- or ( ) National Heart, Lung and Blood [place]: http://www.nhlbi.nih.gov/health/infoctr/index.htm Blood Pressure < 140/90 Blood Pressure 96/68(2023 2:34 PM BISQUE TILE BURNER) Rere Vargas Note: Caring for Your High [...] Related Tools, and click ? HBP Trackers.? 6-434-DZG-USA- or ( ) National Heart, Lung and Blood [place]: http://www.nhlbi.nih.gov/health/infoctr/index.htm Blood Pressure < 140/90 Blood Pressure 96/68(2023 2:34 PM BISQUE TILE BURNER) Cassie Parks Note: Caring for Your High [...] Related Tools, and click ? HBP Trackers.? 2-929-NDF-USA-1 or ( ) National Heart, Lung and Blood [place]: http://www.nhlbi.nih.gov/health/infoctr/index.htm Exercise 5X per week (30 min [...] diabetes: ? ? Nigerian Diabetes Association: www.diabetes.org 9-670-NEHTKVSW ( ) ? ? Nigerian Diabetes Association-Support group line: www.professional.diabetes.org ? ? Nigerian Heart Association: www.heart.org or 7-154-UDR-USA-1 ( ) USDA MyPlate: www.Tok3nmyplate.gov Have labs drawn Lifestyle No Rere Kaufman [...] fatigue documented in this encounter Care Teams Business Office Associate Relationship Specialty [place] [address] [place] [address] PCP - General Internal Medicine 01/26/22 [place] [address] [place] [address] PCP - [facility] 02/19/22 [place] [address] [place] [phone] Ophthalmology 04/06/16 Fawn Ramon DPM [address] [place] [address] Podiatry 01/24/21 documented as of this encounter
--- OUTSIDE RECORDS SUMMARY | 2024-04-03 02:25 | XMS_ITS | Encounter Summary ---
Author Organization [facility] Address [address] [place] [address] Care Team Providers Care Dresser Tender Name Role Phone Ricco Andrew MD Unavailable [phone] Fawn Ramon DPM Unavailable [phone] Chris Aden MD Primary Care Provider [phone] Chris Aden MD Unavailable Reason for Visit * Reason Onset Date Comments Tachycardia 12/20/2023 Encounter Details Date Type Department Care Team (Late st Contact Info) Description 12/20/2023 Telephone [facility] - Family Medicine [id number] [place] [address] Chris [place]en MD [address] [place] [address] Tachycardia Social History Tobacco Use Types [...] st Contact Info) Description 04/07/2024 10:00 AM LEGAL SUPPORT MANAGER Office Visit [facility] - Family Medicine [address] [facility] [address] [place] [address] Evelin Blanco, KIESELGUHR REGENERATOR OPERATOR-PASSENGER CAR UPHOLSTERER APPRENTICE [address] [facility] [address] [place] [address] 06/06/2024 2:00 PM CDT Office Visit [facility] Family Medicine [address] [facility] [address] [place] [address] [place] [address] [facility] [address] [address] [place] [phone] documented as of this encounter Goals Goal Patient Goal Type Associated Problems Recent Progress Patient-Stated? Author Blood Pressure < 140/90 Blood Pressure 96/68(2023 2:34 PM LEGAL SUPPORT MANAGER) Rere Vargas Note: Caring for Your [...] Where can I go for more information? Croatian Heart Association National Center: http://www.americanheart.org 1. In the top header, click ? Conditions? . 2. In the top header, click ? high blood pressure.? 3. For a printable blood pressure tracker, scroll toward the bottom of the page to Related Tools, and click ? HBP Trackers.? 1-943-LCG-USA- or ( ) National Heart, Lung and Blood [place]: http://www.nhlbi.nih.gov/health/infoctr/index.htm Blood Pressure < 140/90 Blood Pressure 96/68(2023 2:34 PM LEGAL SUPPORT MANAGER) Rere Vargas Note: Caring for Your [...] include smoked meats (such as ham and emrrill), cheese, canned and frozen foods, and butter and margarine. Read all labels carefully. Do not add salt to your food. Learn to use fresh herbs, spices, or salt substitutes to add flavor to your food. Ask your provider for any dietary restrictions that are appropriate for you. Where can I go for more information? Croatian Heart Association National Center: http://www.americanheart.org 1. In the top header, click ? Conditions? . 2. In the top header, click ? high blood pressure.? 3. For a printable blood pressure tracker, scroll toward the bottom of the page to Related Tools, and click ? HBP Trackers.? 2-182-CBC-USA-1 or ( ) National Heart, Lung and Blood [place]: http://www.nhlbi.nih.gov/health/infoctr/index.htm Blood Pressure < 140/90 Blood Pressure 96/68(2023 2:34 PM LEGAL SUPPORT MANAGER) Cassie Parks Note: Caring for Your [...] Where can I go for more information? Croatian Heart Association National Center: http://www.americanheart.org 1. In the top header, click ? Conditions? . 2. In the top header, click ? high blood pressure.? 3. For a printable blood pressure tracker, scroll toward the bottom of the page to Related Tools, and click ? HBP Trackers.? 4-199-TCA-USA-1 or ( ) National Heart, Lung and Blood [place]: http://www.nhlbi.nih.gov/health/infoctr/index.htm Exercise 5X per week (30 min per time) Exercise Rere Vargas Note: The Croatian College of Sports Medicine recommends all adults [...] how to manage your diabetes: ? ? Croatian Diabetes Association: www.diabetes.org 1-921-FUBZIVJK ( ) ? ? Croatian Diabetes Association-Support group line: www.professional.diabetes.org ? ? Croatian Heart Association: www.heart.org or 8-683-PFC-USA-1 ( ) [employer]Ink MyPlate: www.AFTER-MOUSEmyplate.gov Have labs drawn Lifestyle Rere Vargas Note: [...] on filedocumented in this encounter Care Teams Dresser Tender Relationship Specialty [place] [address] [address] [place] [phone] PCP - General Internal Medicine 01/26/22 [place] [address] [address] [place] [phone] PCP - Pending [facility] To [facility] 02/19/22 [place] [address] [phone] Ophthalmology 04/06/16 Fawn Ramon DPM [address] [address] [place] [id number] Podiatry 01/24/21 documented as of this encounter
--- OUTSIDE RECORDS SUMMARY | 2024-04-03 02:25 | XMS_ITS | Encounter Summary ---
Author Organization [facility] Address [address] [facility] [place] [address] Care Team Providers Care Avp Name Role Phone Ricco Andrew MD Unavailable [phone] Fawn Ramon DPM Unavailable [phone] Chris Aden MD Primary Care Provider [phone] Chris Aden MD Unavailable Reason for Visit * Reason Comments Hospital Follow-up Encounter Details Date Type Department Care Team (Late st Contact Info) Description 02/23/2024 2:00 PM MOLD SANDER Office Visit [facility] - Family Medicine [address] [facility] [address] [place] [address] Evelin Blanco, JOSETTE-FEATHEREDGER AND REDUCER MACHINE [address] [facility] [address] [place] [address] Hypotension, unspecified hypotension type (Primary [...] Recorded Patient Health Questionnaire-2 Score 0 02/09/2024 [facility] - [...] any time in the past 12 m [facility], were you homeless or living in [...] Comments Blood Pressure 70/44 02/23/2024 2:33 PM MOLD SANDER Pulse 112 02/23/2024 2:25 PM MOLD SANDER Temperature 36.3 ??C (97.3 ??F) 02/23/2024 2:25 PM CS T Respiratory Rate 18 02/23/2024 2:25 PM MOLD SANDER Oxygen Saturation 96% 02/23/2024 2:25 PM MOLD SANDER Inhaled Oxygen Concentration - - Weight - [...] allergies Trigger finger HPI: PT was in [facility] in [place] for pneumonia but we do not have [...] these issues and agrees with the plan. SANDER documented in this encounter Plan of Treatment Upcoming Encounters Date Type Department Care Team (Late st Contact Info) Description 04/07/2024 10:00 AM MOLD SANDER Office Visit [facility] [address] [facility] [address] [place], [place] [phone] Evelin Blanco APRN-CNP [address] [facility] [address] [place] [address] 06/06/2024 2:00 PM CDT Office Visit [facility] [address] [facility] [address] [place], [place] [phone] [place] [address] [facility] [address] [place] [address] documented as of this encounter Goals Goal Patient Goal Type Associated Problems Recent Progress Patient-Stated? Author Blood Pressure < 140/90 Blood Pressure 96/68(2023 2:34 PM MOLD SANDER) Rere Vargas Note: Caring for Your High [...] Where can I go for more information? [place] Heart Association National Center: http://www.americanheart.org 1. In the top header, click ? Conditions? . 2. In the top header, click ? high blood pressure.? 3. For a printable blood pressure tracker, scroll toward the bottom of the page to Related Tools, and click ? HBP Trackers.? 6-471-TCS-USA-1 or ( ) National Heart, Lung and Blood [place]: http://www.nhlbi.nih.gov/health/infoctr/index.htm Blood Pressure < 140/90 Blood Pressure 96/68(2023 2:34 PM MOLD SANDER) Rere Vargas Note: Caring for Your High [...] Where can I go for more information? [place] Heart Association National Center: http://www.americanheart.org 1. In the top header, click ? Conditions? . 2. In the top header, click ? high blood pressure.? 3. For a printable blood pressure tracker, scroll toward the bottom of the page to Related Tools, and click ? HBP Trackers.? 0-652-VXD-USA-1 or ( ) National Heart, Lung and Blood [place]: http://www.nhlbi.nih.gov/health/infoctr/index.htm Blood Pressure < 140/90 Blood Pressure 96/68(2023 2:34 PM MOLD SANDER) Cassie Parks Note: Caring for Your High [...] Where can I go for more information? [place]ian Heart Association National Center: http://www.americanheart.org 1. In the top header, click ? Conditions? . 2. In the top header, click ? high blood pressure.? 3. For a printable blood pressure tracker, scroll toward the bottom of the page to Related Tools, and click ? HBP Trackers.? 3-677-AIP-USA-1 or ( ) National Heart, Lung and Blood [place]: http://www.nhlbi.nih.gov/health/infoctr/index.htm Exercise 5X per week (30 min per time) Exercise Rere Vargas Note: The Boliv[place] College of Sports Medicine recommends all adults [...] how to manage your diabetes: ? ? [place] Diabetes Association: www.diabetes.org 3-947-YOXIZCRL ( ) ? ? Bol[place]ian Diabetes Association-Support group line: www.professional.diabetes.org ? ? [place]ian Heart Association: www.heart.org or 3-800-XQU-USA-1 ( ) [place] MyPlate: www.UI Robotmyplate.gov Have labs drawn Lifestyle No Rere Kaufman [...] Primary documented in this encounter Care Teams Avp Relationship Specialty [place] [address] [address] [place] [address] PCP - General Internal Medicine 01/26/22 [place] [address] [address] [place] [address] PCP - [facility] 02/19/22 [place] [address] [facility] [address] [place] [phone] Ophthalmology 04/06/16 Fawn Ramon DPM [address] [address] [place] [address] Podiatry 01/24/21 documented as of this encounter
--- OUTSIDE RECORDS SUMMARY | 2024-04-03 02:25 | XMS_ITS | Encounter Summary ---
Author Organization [facility] Address [address] [facility] [place] [address] Care Team Providers Care Licensed Optician Name Role Phone Ricco Andrew MD Unavailable [phone] Fawn Ramon DPM Unavailable [phone] Chris Aden MD Primary Care Provider [phone] Chris Aden MD Unavailable Reason for Referral * Home Health Care (Routine) - Closed Specialty Diagnoses / Procedures Referred By Contac t Referred To Contact Home Health Services Diagnoses Type 2 diabetes mellitus with hyperglycemia, without long-term current use of insulin (HCC) Hypothyroidism, adult Essential hypertension Alzheimer's dementia without behavioral disturbance (HCC) Chris Aden MD [id number] [place] [address] [address] [place] [address] [facility] Scheduling [address] [place] [address] Referral ID Status Reason Start Date Expiration Date V isits Requested Visits Authorized [id number] Closed Specialty Services Required 12/02/2023 12/01/2024 999 [id number] Reason for Visit * Reason Comments Follow-up Encounter Details Date Type Department Care Team (Latest Contact Info) Description 12/02/2023 2:00 PM CDT Office Visit [facility] - Family Medicine [id number] [place] [address] [address] [place] [address] [place] [address] [facility] [address] [phone] Type 2 diabetes mellitus with hyperglycemia, without [...] st Contact Info) Description 04/07/2024 10:00 AM VAMP CREASER Office Visit [facility] [address] [facility] [address] [place] [address] Francis Evelin, TOURS CAPTAIN-MAINTENANCE TECHNICIAN [address] [facility] [address] [place] [address] 06/06/2024 2:00 PM CDT Office Visit [facility] [address] [facility] [address] [place] [address] [place] [address] [facility] [address] [place] [address] Scheduled Referrals Name Type Priority [...] < 140/90 Blood Pressure 96/68(2023 2:34 PM VAMP CREASER) Rere Vargas Note: Caring for Your High [...] Related Tools, and click ? HBP Trackers.? 2-529-VPB-USA-1 or ( ) National Heart, Lung and Blood [place]: http://www.nhlbi.nih.gov/health/infoctr/index.htm Blood Pressure < 140/90 Blood Pressure 96/68(2023 2:34 PM VAMP CREASER) Rere Vargas Note: Caring for Your High [...] Related Tools, and click ? HBP Trackers.? 3-667-HTV-USA-1 or ( ) National Heart, Lung and Blood [place]: http://www.nhlbi.nih.gov/health/infoctr/index.htm Blood Pressure < 140/90 Blood Pressure 96/68(2023 2:34 PM VAMP CREASER) Cassie Parks Note: Caring for Your High [...] Related Tools, and click ? HBP Trackers.? 9-553-GLG-USA-1 or ( ) National Heart, Lung and Blood [place]: http://www.nhlbi.nih.gov/health/infoctr/index.htm Exercise 5X per week (30 min per time) Exercise Rere Vargas Note: The [place] College of Sports Medicine [...] diabetes: ? ? [place] Diabetes Association: www.diabetes.org 2-900-XAIFXHUA ( ) ? ? [place] Diabetes Association-Support group line: www.professional.diabetes.org ? ? [place] Heart Association: www.heart.org or 1-159-ZEN-USA-1 ( ) Twiigg MyPlate: www.Mobile Captainmyplate.gov Have labs drawn Lifestyle Rere Vargas Note: [...] 8:20 AM CDT Performed at: ??01 - [address] ??[id number] Director Special Education: Mike Davila PhD, Phone: ??[phone] Chris Aden MD LAB - CHEMISTRY MELYSSA CHAHAL [facility] INSURANCE BILL [address] [place] [address] * VITAMIN D 25-HYDROXY (12/02/2023 3:57 PM CDT) Vitamin D, 25 Hydroxy 66.1 30.0 - 100.0 ng/mL [facility] INSURANCE BILL Comment: Vitamin D deficiency has been defined by the [place] of Medicine and an Endocrine Society practice guideline as a level of serum 25-OH vitamin D less than 20 ng/mL (1,2). The Endocrine Society went on to further define vitamin D insufficiency as a level between 21 and 29 ng/mL (2). 1. IOM ([place] of Medicine). 2010. Dietary reference ?? intakes for calcium and D. [place]: The ?? National AcademOunce Labs Press. 2. Iris MF, Daniel FAYE, Fabian FERRIS, et al. ?? Evaluation, treatment, and prevention of vitamin D ?? deficiency: an Endocrine Society clinical practice ?? guideline. JCEM. 2010; 96(7):1911-30. Blood BLOOD SPECIMEN / Unknown 12/02/2023 3:57 PM CDT 12/02/2023 Narrative [facility] INSURANCE BILL - 12/03/2023 8:20 AM CDT Performed at: ??01 - [address] ??[id number] Director Special Education: Mike Davila PhD, Phone: ??[phone] Chris Aden MD LAB - CHEMISTRY ORDE RABLES Performing Organization Address [facility] Co de Phone Number [facility] INSURANCE BILL [address] [place] [address] * MICROALB/CREAT RATIO URINE RANDOM PANEL (12/02/2023 [...] 7:12 AM CDT Performed at: ??01 - [facility] ??[id number] Director Special Education: Mike Davila PhD, Phone: ??[phone] Chris Aden MD LAB - URINE CHEMISTR Y ORDERABLES Performing Organization Address City/[facility]/ZIP Co de Phone Number [facility] INSURANCE BILL [address] [place] [address] * (ABNORMAL) HEMOGLOBIN A1C W EAG (12/02/2023 3:57 PM CDT) Pathologist [facility] Hemoglobin A1c 6.3(H) 4.8 - 5.6 % [facility] INSURANCE BILL Comment: ? Prediabetes: 5.7 - 6.4 ? Diabetes: >6.4 ? Glycemic control for adults with diabetes: <7.0 Estimated Average Glucose 134 mg/dL [facility] INSURANCE BILL Blood BLOOD SPECIMEN / Unknown 12/02/2023 3:57 PM CDT 12/02/2023 Narrative [facility] INSURANCE BILL - 12/03/2023 7:12 AM CDT Performed at: ?? - [facility] ??[id number] Director Special Education: Mike Davila PhD, Phone: ??[phone] Chris Aden MD LAB - CHEMISTRY MELYSSA CHAHAL [facility] INSURANCE BILL [address] [place] [address] * (ABNORMAL) CBC W/O DIFFERENTIAL (12/02/2023 3:57 PM CDT) Pathologist [facility] WBC 6.3 3.4 - 10.8 x10E3/uL [...] 7:12 AM CDT Performed at: ??01 - [facility] [address] [facility] [place], [place] ??[id number] Director Special Education: Mike Davila PhD, Phone: ??[phone] Chris Aden MD LAB - HEMATOLOGY ORD ERABLES [facility] INSURANCE BILL [address] [place] [address] * (ABNORMAL) COMPREHENSIVE METABOLIC PANEL (12/02/2023 3:57 [...] 9:12 AM CDT Performed at: ??01 - [facility] [address] [place], [place] ??[id number] Director Special Education: Mike Davila PhD, Phone: ??[phone] Chris Aden MD LAB - CHEMISTRY ORDNatasha CHAHAL [facility] INSURANCE BILL [address] [place] [address] * HEMOGLOBIN A1C - POINT OF CARE (AMB) (12/02/2023 2:32 PM CDT) Hemoglobin A1c POCT 6.1 % [facility] Expiration Date 2025-08-29 [facility] Lot # [id number] [facility] QC Verified Yes Yes [facility] Blood BLOOD SPECIMEN / Unknown 12/02/2023 2:32 PM CDT Chris Aden MD LAB - POINT OF CARE ORDERABLES [facility] [address] [phone] documented in this encounter Visit Diagnoses Diagnosis [...] (HCC) documented in this encounter Care Teams Licensed Optician Relationship Specialty [place] [address] [place] [address] PCP - General Internal Medicine 01/26/22 [place] [address] [address] [place] [address] PCP - [facility] 02/19/22 [place] [address] [facility] [address] [place] [phone] Ophthalmology 04/06/16 Fawn Ramon [place]PM [address] [address] [place] [address] Podiatry 01/24/21 documented as of this encounter
--- OUTSIDE RECORDS SUMMARY | 2024-04-03 02:25 | XMS_ITS | Encounter Summary ---
Author Organization [facility] Address [address] [facility] [place] [address] Care Team Providers Care Tire Mold Engraver Name Role Phone Ricco Andrew MD Unavailable [phone] Fawn Ramon DPM Unavailable [phone] Chris Aden MD Primary Care Provider [phone] Chris Aden MD Unavailable Encounter Details Date Type Department Care Team (Late st Contact Info) Description 05/31/2023 Orders Only [facility] Medical [facility] - Family Medicine [address] [place] [address] Chris Aden MD [address] [place] [address] Vitamin D deficiency ; Type 2 [...] st Contact Info) Description 04/07/2024 10:00 AM TEST CLERK Office Visit [facility] [id number] [place] [address] [address] [place] [address] Evelin Blanco APRN-LOG HAULER [address] [address] 06/06/2024 2:00 PM CDT Office Visit [facility] [phone] [place] [address] [address] [place] [address] [place] [address] [address] Scheduled Orders Name Type Priority [...] < 140/90 Blood Pressure 96/68(2023 2:34 PM TEST CLERK) Rere Vargas Note: Caring for Your [...] Related Tools, and click ? HBP Trackers.? 4-871-MZI-USA-1 or ( ) National Heart, Lung and Blood [place]: http://www.nhlbi.nih.gov/health/infoctr/index.htm Blood Pressure < 140/90 Blood Pressure 96/68(2023 2:34 PM TEST CLERK) Rere Vargas Note: Caring for Your [...] Related Tools, and click ? HBP Trackers.? 8-824-GDI-USA- or ( ) National Heart, Lung and Blood [place]: http://www.nhlbi.nih.gov/health/infoctr/index.htm Blood Pressure < 140/90 Blood Pressure 96/68(2023 2:34 PM TEST CLERK) Susan Marie Cassie F Note: Caring [...] Related Tools, and click ? HBP Trackers.? 5-541-YYW-USA- or ( ) National Heart, Lung and Blood [place]: http://www.nhlbi.nih.gov/health/infoctr/index.htm Exercise 5X per week (30 min per time) Exercise No Rere Kaufman Note: The [place] College of Sports Medicine [...] diabetes: ? ? [place] Diabetes Association: www.diabetes.org 3-411-MALAKXHI ( ) ? ? [place] Diabetes Association-Support group line: www.professional.diabetes.org ? ? [place] Heart Association: www.heart.org or 6-318-GMU-USA-1 ( ) English TV MyPlate: www.Fastgenmyplate.gov Have labs drawn Lifestyle Rere Vargas Note: [...] facility documented in this encounter Care Teams Tire Mold Engraver Relationship Specialty [place] [address] [address] [place] [address] PCP - General Internal Medicine 01/26/22 [place] [address] [address] [place] [address] PCP - [facility] 02/19/22 [place] [address] [facility] [address] [place] [phone] Ophthalmology 04/06/16 [place] [address] [place] [address] Podiatry 01/24/21 documented as of this encounter
--- OUTSIDE RECORDS SUMMARY | 2024-04-03 02:25 | XMS_ITS | Encounter Summary ---
Author Organization [facility] Address [address] [facility] [place] [address] Care Team Providers Care Personal Attendant Name Role Phone Ricco Andrew MD Unavailable [phone] Fawn Ramon DPM Unavailable [phone] Chris Aden MD Primary Care Provider [phone] Chris Aden MD Unavailable Reason for Referral * Durable Medical Equipment Purchase - Open Specialty Diagnoses / Procedures Referred By Contac t Referred To Contact Diagnoses Abnormal gait [place], [place] [address] [place] [address] Referral ID Status Reason Start Date Expiration Date V isits Requested Visits Authorized [id number] Open Specialty Services Required 02/09/2024 02/08/2025 1 1 R PRESS TENDER Reason for Visit * Reason Comments Durable Medical Equipment Patient states he would like a wheelchair. Encounter Details Date Type Department Care Team (Latest Contact Info) Description 02/09/2024 11:30 AM POWER PRESS TENDER Office Visit [facility] - Family Medicine [address] [place] [address] [address] [place] [address] [place] [address] [address] [place] [address] Abnormal gait (Primary Dx); Fall, [...] Comments Blood Pressure 118/78 02/09/2024 11:42 AM POWER PRESS TENDER Pulse 96 02/09/2024 11:42 AM POWER PRESS TENDER Temperature 36.7 ??C (98 ??F) 02/09/2024 11:42 AM POWER PRESS TENDER Respiratory Rate 18 02/09/2024 11:42 AM POWER PRESS TENDER Oxygen Saturation 99% 02/09/2024 11:42 AM POWER PRESS TENDER Inhaled Oxygen Concentration - - Weight - - Height 170.2 cm (5' 7) 02/09/2024 11:42 AM POWER PRESS TENDER Body Mass Index - - documented in [...] Immunization(s) protocol. See Imm/Injections activIty for details. R PRESS TENDER * Chris Aden MD - 02/09/2024 11:44 AM CST SUBJECTIVE: Mk Sanchse is a 88 year old male here [...] hyperglycemia, without long-term current use of insulin ([facility]) Acute cystitis without hematuria Type 2 diabetes mellitus with stage 3 chronic kidney disease, without long-term current use of insulin, unspecified whether stage 3a or 3b CKD ([facility]) Type 2 diabetes mellitus with hyperlipidemia (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) Type 2 diabetes mellitus with diabetic neuropathy, without long-term current use of insulin ([facility]) Hypertension associated with diabetes ([facility]) Stage 3b chronic kidney disease ([facility]) Alzheimer's dementia without behavioral disturbance ([facility]) PLAN: Orders Placed This Encounter URINALYSIS [...] Wheelchair with feet stand done today to [facility]. Diabetes type 2 with hyperglycemia, kidney disease, [...] with the plan. No follow-ups on file. R PRESS TENDER documented in this encounter Plan of Treatment Upcoming Encounters Date Type Department Care Team (Late st Contact Info) Description 04/07/2024 10:00 AM POWER PRESS TENDER Office Visit [address] [address] Evelin Blanco, SOCIAL HUMAN SERVICES ASSISTANTS-FRUIT AND VEGETABLE FACTORY WORKER [id number] [place] [address] 06/06/2024 2:00 PM CDT Office Visit [address] [address] Chris Aden MD [address] [place] [phone] Scheduled Orders Name Type Priority Associated Diagnoses [...] < 140/90 Blood Pressure 96/68(2023 2:34 PM POWER PRESS TENDER) Rere Vargas Note: Caring for Your [...] Where can I go for more information? [place] Heart Association National Center: http://www.americanheart.org 1. In the top header, click ? Conditions? . 2. In the top header, click ? high blood pressure.? 3. For a printable blood pressure tracker, scroll toward the bottom of the page to Related Tools, and click ? HBP Trackers.? 8-367-MWP-USA-1 or ( ) National Heart, Lung and Blood [place]: http://www.nhlbi.nih.gov/health/infoctr/index.htm Blood Pressure < 140/90 Blood Pressure 96/68(2023 2:34 PM POWER PRESS TENDER) Rere Vargas Note: Caring for Your [...] Where can I go for more information? [place] Heart Association National Center: http://www.americanheart.org 1. In the top header, click ? Conditions? . 2. In the top header, click ? high blood pressure.? 3. For a printable blood pressure tracker, scroll toward the bottom of the page to Related Tools, and click ? HBP Trackers.? 5-444-USC-USA-1 or ( ) National Heart, Lung and Blood [place]: http://www.nhlbi.nih.gov/health/infoctr/index.htm Blood Pressure < 140/90 Blood Pressure 96/68(2023 2:34 PM POWER PRESS TENDER) Cassie Parks Note: Caring for Your [...] Where can I go for more information? [place] Heart Association National Center: http://www.americanheart.org 1. In the top header, click ? Conditions? . 2. In the top header, click ? high blood pressure.? 3. For a printable blood pressure tracker, scroll toward the bottom of the page to Related Tools, and click ? HBP Trackers.? 9-364-PDH-USA-1 or ( ) National Heart, Lung and Blood [place]: http://www.nhlbi.nih.gov/health/infoctr/index.htm Exercise 5X per week (30 min per time) Exercise No Rere Kaufman Note: The [place] College of Sports Medicine recommends all [...] overall healthier. Have labs drawn Lifestyle No Reer Kaufman Note: Caring for Your Diabetes Exercise [...] how to manage your diabetes: ? ? [place] Diabetes Association: www.diabetes.org 0-143-XNGCLIXT ( ) ? ? [place] Diabetes Association-Support group line: www.professional.diabetes.org ? ? [place] Heart Association: www.heart.org or 9-802-WWC-USA-1 ( ) gDecide MyPlate: www.[place] Imagingmyplate.gov Have labs drawn Lifestyle Rere Vargas Note: [...] disease documented in this encounter Care Teams Personal Attendant Relationship Specialty [place] [address] [place] [phone] PCP - General Internal Medicine 01/26/22 [place] [address] [place] [address] PCP - [facility] 02/19/22 [place] [address] [address] [facility] [address] [place] [phone] Ophthalmology 04/06/16 Fawn Ramon DPM [address] [place], [place] [phone] Podiatry 01/24/21 documented as of this encounter
--- OUTSIDE RECORDS SUMMARY | 2024-04-03 02:25 | XMS_ITS | Encounter Summary ---
Author Organization [facility] Address [address] [place] [address] Care Team Providers Care Open Source Developer Name Role Phone Ricco Andrew MD Unavailable [phone] Fawn Ramon DPM Unavailable [phone] Chris Aden MD Primary Care Provider [phone] Chris Aden MD Unavailable Reason for Visit * Reason Onset Date Comments Outreach Preventive Care 2023 Encounter Details Date Type Department Care Team (Late st Contact Info) Description 2023 Patient Outreach [facility] Medical [facility] - Care Coordination [address] [place] [address] Elham Cummings Outreach Preventive Care Social History [...] Confirmation: Patient is actively engaged with an [facility] PCP. [employer] Enrollment: Already active. Patient engagement and response(s) for due / overdue Health Maintenance items: - Medicare Annual Wellness Visit: - appointment was already scheduled for 06/01/23 . Questionnaire was sent/delay send via [employer]. - A1C: - PCP will order labs next week - Diabetes Eye Exam: - patient will call to schedule Diabetic Eye Exam. Reminded patient to have the results sent to PCP. Elham Cummings 2023 3:23 PM S AND MARKETING DIRECTOR documented in this encounter Plan of Treatment Upcoming Encounters Date Type Department Care Team (Late st Contact Info) Description 04/07/2024 10:00 AM SALES AND MARKETING DIRECTOR Office Visit [facility] [address] [facility] [address] [place] [address] Evelin Blanco, JOSETTE-GREASE WORKER [address] [facility] [address] [place] [address] 06/06/2024 2:00 PM CDT Office Visit [facility] [address] [facility] [address] [place] [address] [place] [address] [place] [phone] documented as of this encounter Goals Goal Patient Goal Type Associated Problems Recent Progress Patient-Stated? Author Blood Pressure < 140/90 Blood Pressure 96/68(2023 2:34 PM SALES AND MARKETING DIRECTOR) Rere Vargas Note: Caring for Your [...] Related Tools, and click ? HBP Trackers.? 3-281-HMD-USA-1 or ( ) National Heart, Lung and Blood [place]: http://www.nhlbi.nih.gov/health/infoctr/index.htm Blood Pressure < 140/90 Blood Pressure 96/68(2023 2:34 PM SALES AND MARKETING DIRECTOR) Rere Vargas Note: Caring for Your [...] Related Tools, and click ? HBP Trackers.? 3-001-SKI-USA-1 or ( ) National Heart, Lung and Blood [place]: http://www.nhlbi.nih.gov/health/infoctr/index.htm Blood Pressure < 140/90 Blood Pressure 96/68(2023 2:34 PM SALES AND MARKETING DIRECTOR) Cassie Parks Note: Caring for Your [...] Related Tools, and click ? HBP Trackers.? 0-888-OWC-USA-1 or ( ) National Heart, Lung and Blood [place]: http://www.nhlbi.nih.gov/health/infoctr/index.htm Exercise 5X per week (30 min [...] diabetes: ? ? [place] Diabetes Association: www.diabetes.org 0-427-FUMDCADA ( ) ? ? [place] Diabetes Association-Support group line: www.professional.diabetes.org ? ? [place] Heart Association: www.heart.org or 6-753-PNI-USA-1 ( ) [employer]ata MyPlate: www.JB Therapeuticsmyplate.gov Have labs drawn Lifestyle Rere Vargas [...] on filedocumented in this encounter Care Teams Open Source Developer Relationship Specialty [place] [address] [address] [place] [phone] PCP - General Internal Medicine 01/26/22 [place] [address] [address] [place] [phone] PCP - [facility] 02/19/22 [place] [address] [facility] [address] [place] [phone] Ophthalmology 04/06/16 Fawn Ramon DPM [address] [address] [place] [address] Podiatry 01/24/21 documented as of this encounter
--- OUTSIDE RECORDS SUMMARY | 2024-04-03 02:25 | XMS_ITS | Encounter Summary ---
Author Organization [facility] Address [address] [facility] [place] [address] Care Team Providers Care Dietetics Professor Name Role Phone Ricco Andrew MD Unavailable [phone] Fawn Ramon Kae Unavailable [phone] Chris Aden MD Primary Care Provider [phone] Chris Aden MD Unavailable Reason for Visit * Reason Comments Refill Request Encounter Details Date Type Department Care Team (Late st Contact Info) Description 02/18/2024 Refill [facility] - Family Medicine [address] [place] [address] Chris Aden MD [address] [place] [id number] Refill Request Social History Tobacco Use [...] Contact Info) Description 04/07/2024 10:00 AM MANAGER INTERNATIONAL Office Visit [facility] [address] [facility] [address] [place] [address] Evelin Blanco, THIRD LOADER-RESEARCH HOME ECONOMIST [address] [facility] [address] [place] [address] 06/06/2024 2:00 PM CDT Office Visit [facility] [id number] [place] [address] [address] [place], [place] [id number] [place] [address] [facility] [address] [place] [address] documented as of this encounter Goals Goal Patient Goal Type Associated Problems Recent Progress Patient-Stated? Author Blood Pressure < 140/90 Blood Pressure 96/68(2023 2:34 PM MANAGER INTERNATIONAL) Rere Vargas Note: Caring for Your High [...] Related Tools, and click ? HBP Trackers.? 8-356-NXB-USA-1 or ( ) National Heart, Lung and Blood [place] [facility]: http://www.nhlbi.nih.gov/health/infoctr/index.htm Blood Pressure < 140/90 Blood Pressure 96/68(2023 2:34 PM MANAGER INTERNATIONAL) Rere Vargas Note: Caring for Your High [...] Related Tools, and click ? HBP Trackers.? 3-254-RMS-USA- or ( ) National Heart, Lung and Blood [place] [facility]: http://www.nhlbi.nih.gov/health/infoctr/index.htm Blood Pressure < 140/90 Blood Pressure 96/68(2023 2:34 PM MANAGER INTERNATIONAL) Cassie Parks Note: Caring for Your High [...] Related Tools, and click ? HBP Trackers.? 6-598-HIO-USA-1 or ( ) National Heart, Lung and Blood [place] [facility]: http://www.nhlbi.nih.gov/health/infoctr/index.htm Exercise 5X per week (30 [...] ? ? [place] Diabetes Association: www.diabetes.org 0-118-AAESPHXW ( ) ? ? [place] Diabetes Association-Support group line: www.professional.diabetes.org ? ? [place] Heart Association: www.heart.org or 0-480-ZPW-USA-1 ( ) [employer] MyPlate: www.Inspired Technologiesmyplate.gov Have labs drawn Lifestyle Rere Vargas [...] on filedocumented in this encounter Care Teams Dietetics Professor Relationship Specialty [place] [address] [place] [phone] PCP - General Internal Medicine 01/26/22 [place] [address] [place] [phone] PCP - [facility] 02/19/22 [place] [address] [facility] [address] [place] [address] Ophthalmology 04/06/16 Fawn Ramon DPM [address] [place] [address] Podiatry 01/24/21 documented as of this encounter
--- OUTSIDE RECORDS SUMMARY | 2024-04-03 02:25 | XMS_ITS | Encounter Summary ---
Author Organization [facility] Address [address] [place] [address] Care Team Providers Care Truss Puller Helper Name Role Phone Ricco Andrew MD Unavailable [phone] Fawn Ramon DPM Unavailable [phone] Chris Aden MD Primary Care Provider [phone] Chris Aden MD Unavailable Reason for Visit * Reason Comments Refill Request Encounter Details Date Type Department Care Team (Late st Contact Info) Description 01/08/2024 Refill [facility] - Family Medicine [address] [place] [address] Chris Aden MD [address] [place] [phone] Refill Request Social History Tobacco Use [...] st Contact Info) Description 04/07/2024 10:00 AM DOCUMENTATION SPEC Office Visit [facility] [address] [facility] [address] [place] [address] Chayodevin EvelinNIKITA [address] [facility] [address] [place] [address] 06/06/2024 2:00 PM CDT Office Visit [facility] [address] [facility] [address] [place] [address] [place] [address] [facility] [address] [place] [address] documented as of this encounter Goals Goal Patient Goal Type Associated Problems Recent Progress Patient-Stated? Author Blood Pressure < 140/90 Blood Pressure 96/68(2023 2:34 PM DOCUMENTATION SPEC) Rere Vargas Note: Caring for Your High [...] Where can I go for more information? [place] Heart Association National Center: http://www.americanheart.org 1. In the top header, click ? Conditions? . 2. In the top header, click ? high blood pressure.? 3. For a printable blood pressure tracker, scroll toward the bottom of the page to Related Tools, and click ? HBP Trackers.? 6-830-GZM-USA-1 or ( ) National Heart, Lung and Blood [place]: http://www.nhlbi.nih.gov/health/infoctr/index.htm Blood Pressure < 140/90 Blood Pressure 96/68(2023 2:34 PM DOCUMENTATION SPEC) Rere Vargas Note: Caring for Your High [...] Where can I go for more information? [place] Heart Association National Center: http://www.americanheart.org 1. In the top header, click ? Conditions? . 2. In the top header, click ? high blood pressure.? 3. For a printable blood pressure tracker, scroll toward the bottom of the page to Related Tools, and click ? HBP Trackers.? 0-952-ABE-USA-1 or ( ) National Heart, Lung and Blood [place]: http://www.nhlbi.nih.gov/health/infoctr/index.htm Blood Pressure < 140/90 Blood Pressure 96/68(2023 2:34 PM DOCUMENTATION SPEC) Cassie Parks Note: Caring for Your High [...] Where can I go for more information? [place] Heart Association National Center: http://www.americanheart.org 1. In the top header, click ? Conditions? . 2. In the top header, click ? high blood pressure.? 3. For a printable blood pressure tracker, scroll toward the bottom of the page to Related Tools, and click ? HBP Trackers.? 6-080-GUP-USA-1 or ( ) National Heart, Lung and Blood [place]: http://www.nhlbi.nih.gov/health/infoctr/index.htm Exercise 5X per week (30 min per time) Exercise Rere Vargas Note: The [place] [employer] recommends all adults [...] how to manage your diabetes: ? ? [place] Diabetes Association: www.diabetes.org 6-903-GCCWEKJU ( ) ? ? [place] Diabetes Association-Support group line: www.professional.diabetes.org ? ? [place] Heart Association: www.heart.org or 0-695-FZG-USA-1 ( ) [place] PREVENTIVE MEDICINE MyPlate: www.Zapcodermyplate.gov Have labs drawn Lifestyle No Rere Kaufman [...] on filedocumented in this encounter Care Teams Truss Puller Helper Relationship Specialty [place] [address] [place] [address] PCP - General Internal Medicine 01/26/22 [place] [address] [place] [address] PCP - [facility] hospital 02/19/22 [place] [address] [facility] [address] [place] [address] Ophthalmology 04/06/16 Fawn Ramon DPM [address] [place] [address] Podiatry 01/24/21 documented as of this encounter
--- OUTSIDE RECORDS SUMMARY | 2024-04-03 02:25 | XMS_ITS | Encounter Summary ---
Author Organization [facility] Address [address] [place] [address] Care Team Providers Care Embedded Software Development Engineer Name Role Phone Ricco Andrew MD Unavailable [phone] Fawn Ramon DPM Unavailable [phone] Chris Aden MD Primary Care Provider [phone] Chris Aden MD Unavailable Reason for Referral * Home Health Care (Routine) - Pending Review Specialty Diagnoses / Procedures Referred By Ethel oneil Referred To Contact Home Health Services Diagnoses Alzheimer's dementia without behavioral disturbance ([place]) [place] [address] [facility] [place] [address] Referral ID Status Reason Start Date Expiration Date Visits Requested Visits Authorized [id number] Pending Review Specialty Services Required 02/26/2024 02/25/[phone] STATION CASHIER * Transfer of Care (Routine) - Open Specialty Diagnoses / Procedures Referred By Ethel oneil Referred To Contact Procedures Follow up with Primary Care Provider ([place] [address] [address] [facility] [place] [address] Referral ID Status Reason Start Date Expiration Date Visits Re quested Visits Authorized [id number] Open 02/24/2024 02/23/2025 1 1 STATION CASHIER Reason for Visit * Reason Comments Hypotension [...] Expiration Date Visits Re quested Visits Authorized [id number] 1 1 Encounter Details Date Type Department Care Team (Late st Contact Info) Description 02/23/2024 2:47 PM GAS STATION CASHIER - 02/26/2024 4:21 PM GAS STATION CASHIER Hospital Encounter [id number] [place] [address] [place]lam[place] [id number] [place] [address] [place] [address] [place], [place] [address] [facility] [place] [address] [place] [address] [facility] [facility] [place] [address] Internal Medicine Discharge Disposition: Home [...] Recorded Patient Health Questionnaire-2 Score 0 02/09/2024 [place] [facility] - Occupational Stress [...] any time in the past 12 m [facility], were you homeless or living in a [place] health care facility (including now)? No 02/24/2024 Sex and Gender Information Value Date Recorded Sex Assigned at Male 01/22/2023 1:45 PM CDT Gender Identity Male 01/22/2023 1:45 PM CDT Sexual Orientation Straight 01/22/2023 1: 45 PM CDT documented as of this encounter Last Filed Vital Signs Vital Sign Reading Time Taken Comments Blood Pressure 125/70 02/26/2024 11:50 AM GAS STATION CASHIER Pulse 88 02/26/2024 11:50 AM GAS STATION CASHIER Temperature 36.6 ??C (97.9 ??F) 02/26/2024 11:[address] Respiratory Rate 20 02/26/2024 11:50 AM GAS STATION CASHIER Oxygen Saturation 93% 02/26/2024 11:50 AM GAS STATION CASHIER Inhaled Oxygen Concentration - - Weight 65.8 kg (145 lb) 02/24/2024 12:31 AM GAS STATION CASHIER Height 170.2 cm (5' 7) 02/24/2024 12:31 AM GAS STATION CASHIER Body Mass Index 22.71 02/24/2024 12:31 AM GAS STATION CASHIER documented in this encounter Discharge Summaries * [...] listed diagnoses and discharged to home with [facility] orders. Condition at discharge: stable BP 125/70 [...] Answer Comments Your discharge diagnosis is: Hypotension [[id number]] Follow up with Primary Care Provider (PCP) [...] also completed on the day of discharge. STATION CASHIER documented in this encounter Medications at Time [...] caregiver who states pt would still like [facility] referrals to be sent out based on insurance as pt would like to work with PT some. CM will continue to f/u regarding the referrals that were sent. STATION CASHIER * Rhianna Geronimo RN - 02/26/2024 4:09 [...] accompanied by in wheelchair in stable condition. 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 Outcome: Adequate for Discharge Goal: STG-Patient [...] function Description: INTERVENTIONS: Outcome: Adequate for Discharge STATION CASHIER * Fernandez Fernandes PharmD - 02/26/2024 3:01 [...] mouth once daily Reasons: Vitamin D Deficiency STATION CASHIER * Elke Dumont RN - 02/25/2024 11:34 [...] and dry, q 2hrly turns Outcome: Progressing STATION CASHIER * Manuela Wahl RN - 02/25/2024 2:51 [...] Information Primary Emergency Contact: Mindy Granados Address: [address] [place] [address] [place] [address] [facility] Relation: Daughter Secondary Emergency Contact: Daisy Sanches [facility] Relation: Daughter Transportation at Discharge: : READMISSION RISK SCORE is 14 at 2:51 PM 02/25/2024.: Name: Manuela Wahl [id number] STATION CASHIER * Man Lujan, OT - 02/25/2024 2:39 PM CST Occupational Therapy Treatment Summary Chart reviewed for diagnosis and medical systems review. Nursing consented for OT. Explained purpose of OT and patient consented to participate in therapy. 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 OT [...] 40 degree's, AAROM 95 degree's, R handed) Educational Guidance Counselor Strength:Educational Guidance Counselor Strength - Right Upper Extremity: poor+ LUE Assessment: AROM - Left Upper Extremity: Within Functional Limits (at least 3/5 MMT shoulder and elbow, pt unable to follow commands for MMT) Educational Guidance Counselor Strength:Educational Guidance Counselor Strength - Left Upper Extremity: fair: Activity [...] the discharge summary. STORMY ConwayR/L x [id number] STATION CASHIER * Osiel Lopez MD - 02/25/2024 10:23 [...] for the most accurate and up-to-date information. STATION CASHIER * Charlie Ngo RN - 02/25/2024 3:15 [...] membranes remain intact Description: INTERVENTIONS: Outcome: Progressing STATION CASHIER * Osiel Lopez MD - 02/24/2024 8:46 [...] for the most accurate and up-to-date information. STATION CASHIER * Candi Knapp, Graduate Nurse - 02/24/2024 [...] will remain free of falls Outcome: Progressing STATION CASHIER * Man Lujan, OT - 02/24/2024 2:36 PM CST Occupational Therapy Initial Evaluation Orders received. Chart reviewed for diagnosis and medical systems review. Nursing consented for OT. Explained purpose of OT and patient consented to participate in therapy. 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 OT [...] (called out to Dr. Lico Ellis from [facility] and awaiting call back on pt's wt. [...] indoors. 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 Pt indicates he had 22 kids at first and later reports he had 7 kids with dtr reporting that was correct. Psychosocial: calm and cooperative Pt's goal for therapy: unstated, reporting no goals Occupational Profile/PLOF: Per dtr Mindy via telephone, pt was Home Situation Type of Residence: Private Residence Living arrangement: Children (with dtr Mindy) Steps to Enter: (1+1+1+1) Home Structure: One [...] R handed), R 3rd digit trigger finger. Educational Guidance Counselor Strength: Educational Guidance Counselor Strength - Right Upper Extremity: poor+ LUE Assessment: AROM - Left Upper Extremity: Within Functional Limits (at least 3/5 MMT shoulder and elbow, pt unable to follow commands for MMT) Educational Guidance Counselor Strength: Educational Guidance Counselor Strength - Left Upper Extremity: fair: Basic [...] the discharge summary. 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 Ambulation was [...] the discharge summary. Fransisca Staff, PT, DPT STATION CASHIER * Ese Clark - 02/24/2024 12:17 PM CST 02/24/24 1200 Visit Type Assessment Date 02/24/24 Embedder Visiting Patient VW Pastoral Care Visit Type(s) Patient not available STATION CASHIER * Manuela Wahl RN - 02/24/2024 12:11 [...] With: use a Rolator Preferred Pharmacy: [id number] - [id number] [place] [address] [place] [address] READMISSION RISK SCORE is N/A at 12:54 PM 02/24/2024. Met with patient Family Support (name and phone): Extended Emergency Contact Information Primary Emergency Contact: Mindy Granados Address: [address] [place] [address] [place] [address] [facility] Relation: Daughter Secondary Emergency Contact: Daisy Sanches [facility] Relation: Daughter Patient or senior human resources representative requests care coordination reach out to family or caregiver listed above regarding discharge planning and at time of discharge? Yes Actual Level of Care/Dispostion Details Actual Level of Care at Discharge: Home Patient / Family provided post-acute services choices?: Yes Durable Medical Equipment Planning Equipment at Home: Walker Corporate Travel Counselor Referral: No Will continue to follow. For any questions or needs please contact: Packing Checker/Social Work Name/Phone number: Manuela Wahl [id number] STATION CASHIER * Arely Juares, [facility] - 02/24/2024 11:43 AM CST [...] mouth once daily Reasons: Vitamin D Deficiency STATION CASHIER * Mariaelena Mariscal Graduate Nurse - 02/24/2024 [...] found in the flowsheet documentation) Outcome: Progressing STATION CASHIER documented in this encounter H&P Notes * Navdeep Nazario DO - 02/23/2024 7:50 PM CST Images from the original note were not included. Hospitalist History and Physical PASHA: [id number] Admission date: 02/23/2024 Reason for Admission: Failure [...] Alvarenga MD Blood Glucose Monitoring Suppl (ONE Perceptis ULTRA 2) w/Device KIT Use 1 Each [...] buttocks and at coccyx. 10/13/23 Evelin Blanco, TELECOMMUNICATIONS LINE INSTALLER-SPRAYER LEATHER ONE TOUCH ULTRASOFT LANCETS MISC Use 1 [...] hours. No results for input(s): HGBA1C, A1C, [id number], EAG in the last 168 hours. Recent [...] disturbance (HCC) 02/05/2016 Priority: Not Prioritized 11/07/19 Roasna Solo MD Family Medicine 02/28/19 Rosana Solo MD Family Medicine Seasonal allergic rhinitis 02/05/2016 Priority: Not Prioritized Osteoarthrosis 12/14/2012 Priority: Not Prioritized Wrist arthritis 09/09/2012 Priority: Not Prioritized Type 2 diabetes mellitus with diabetic neuropathy ([facility]) 09/07/2012 Priority: Not Prioritized 08/30/19 Rosana Solo [...] Voice recognition software was used in the planning director of this documentation. STATION CASHIER documented in this encounter ED Notes * Britton Llamas DO - 02/23/2024 3:56 PM CST [facility] [id number] [facility] History Chief Complaint Patient [...] at bedside, recently treated for pneumonia at [facility] in [facility], completed a course of antibiotics, [...] Of note, this document was completed using [employer] dictation software. Please excuse any typographical errors. Orders Placed This Encounter CBC W AUTO DIFFERENTIAL COMPREHENSIVE METABOLIC PANEL LACTIC ACID BLOOD REFLEX TO REPEAT MAGNESIUM BLOOD LIPASE BLOOD TROPONIN-I HIGH SENSITIVE BASELINE + 1HR URINALYSIS REFLEX MICROSCOPIC REFLEX CULTURE EKG 12-LEAD STATION CASHIER * Mellisa Metz RN - 02/23/2024 3:10 PM CST Bed: 20 Expected date: Expected time: Means of arrival: Comments: WR per Hortencia and Shreyas STATION CASHIER documented in this encounter Miscellaneous Notes * Coding Query - Osiel Lopez MD - 02/26/2024 4:21 PM CST DOCUMENTATION CLARIFICATION REQUEST TO: Dr Lopez FROM: Ashli Fleimng RN-BSN, Clinical Windows Security Engineer, Second Level Reviewer [email or web address] Based on documentation of debility, please further [...] elbow fracture Treatment: PT/OT consults, wheelchair use 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 Please include clinical findings supporting your diagnosis. Select Edit, then F2 to respond. Click sign to file the note. Unable to determine STATION CASHIER * ACP (Advance Care Planning) - Osiel Lopez MD - 02/25/2024 10:33 AM GAS STATION CASHIER Advance Care Planning Goals of Care A [...] and being in the ICU - Total [id number] time spent on advance care planning discussion: 16 minutes STATION CASHIER documented in this encounter Plan of Treatment Upcoming Encounters Date Type Department Care Team (Late st Contact Info) Description 04/07/2024 10:00 AM GAS STATION CASHIER Office Visit [facility] [id number] [place] [address] [address] [place] [address] Evelin Blanco APRN-SPRAYER LEATHER [id number] [facility] [address] [place] [address] 06/06/2024 2:00 PM CDT Office Visit [facility] [id number] [place] [address] [address] [place] [address] Chris Aden [place] [id number] [place] [address] [address] [place] [address] Scheduled Orders Name Type Priority [...] < 140/90 Blood Pressure 96/68(2023 2:34 PM GAS STATION CASHIER) Rere Vargas Note: Caring for Your High [...] Where can I go for more information? [place] [employer] National Center: http://www.americanheart.org 1. In the top header, click ? Conditions? . 2. In the top header, click ? high blood pressure.? 3. For a printable blood pressure tracker, scroll toward the bottom of the page to Related Tools, and click ? HBP Trackers.? 3-922-PYP-USA-1 or ( ) National Heart, Lung and Blood [place]: http://www.nhlbi.nih.gov/health/infoctr/index.htm Blood Pressure < 140/90 Blood Pressure 96/68(2023 2:34 PM GAS STATION CASHIER) Rere Vargas Note: Caring for Your High [...] Where can I go for more information? [place] [employer] Association National Center: http://www.americanheart.org 1. In the top header, click ? Conditions? . 2. In the top header, click ? high blood pressure.? 3. For a printable blood pressure tracker, scroll toward the bottom of the page to Related Tools, and click ? HBP Trackers.? 8-215-GWW-USA-1 or ( ) National Heart, Lung and Blood [place]: http://www.nhlbi.nih.gov/health/infoctr/index.htm Blood Pressure < 140/90 Blood Pressure 96/68(2023 2:34 PM GAS STATION CASHIER) Mindy Parks Note: Caring for Your High [...] Where can I go for more information? [place] [employer] National Center: http://www.americanheart.org 1. In the top header, click ? Conditions? . 2. In the top header, click ? high blood pressure.? 3. For a printable blood pressure tracker, scroll toward the bottom of the page to Related Tools, and click ? HBP Trackers.? 1-222-KHO-USA-1 or ( ) National Heart, Lung and Blood [place]: http://www.nhlbi.nih.gov/health/infoctr/index.htm Exercise 5X per week (30 min per time) Exercise Rere Vargas Note: The [place] [employer] recommends all adults [...] how to manage your diabetes: ? ? [place] Diabetes Association: www.diabetes.org 9-503-JPPRIPUS ( ) ? ? [place] Diabetes Association-Support group line: www.professional.diabetes.org ? ? [place] Heart Association: www.heart.org or 4-907-AGA-USA-1 ( ) [employer] MyPlate: www.Ellipse Technologiesmyplate.gov Have labs drawn Lifestyle No Rere [...] POINT OF CARE Routine 02/25/2024 6:04 PM GAS STATION CASHIER SARS-COV-2 (COVID-19) RAPID Routine 02/25/2024 3:12 PM GAS STATION CASHIER Wrist arthritis GLUCOSE - POINT OF CARE Routine 02/25/2024 12:05 PM GAS STATION CASHIER BASIC METABOLIC PANEL (CALCIUM TOTAL) AM Draw 02/25/2024 4:14 AM GAS STATION CASHIER Weight loss, abnormal CARDIAC EKG ORDER 02/24/2024 6:3 5 PM GAS STATION CASHIER GLUCOSE - POINT OF CARE Routine 02/24/2024 5:59 PM GAS STATION CASHIER URINALYSIS REFLEX MICROSCOPIC REFLEX CULTURE STAT 02/24/2024 5:43 AM GAS STATION CASHIER LACTIC ACID BLOOD REFLEX TO REPEAT Timed STAT 02/24/2024 5:38 AM GAS STATION CASHIER TSH REFLEX FREE T4 Routine 02/24/2024 5: 38 AM GAS STATION CASHIER Hypotension, unspecified hypotension type Adult failure to thrive Volume depletion CBC W/O DIFFERENTIAL Routine 02/24/2024 5:38 AM GAS STATION CASHIER Hypotension, unspecified hypotension type Adult failure to thrive Volume depletion BASIC METABOLIC PANEL (CALCIUM TOTAL) Routine 02/24/2024 5:38 AM GAS STATION CASHIER Hypotension, unspecified hypotension type Adult failure to thrive Volume depletion MAGNESIUM BLOOD Routine 02/24/2024 5:38 AM GAS STATION CASHIER Hypotension, unspecified hypotension type Adult failure to thrive Volume depletion TROPONIN-I HIGH SENSITIVE REFLEX 1HOUR Timed 02/23/2024 5:20 PM GAS STATION CASHIER XR CHEST 1VW PORTABLE STAT 02/23/2024 5:01 PM GAS STATION CASHIER Hypotension, unspecified hypotension type CBC W AUTO DIFFERENTIAL STAT 02/23/2024 4:51 PM GAS STATION CASHIER LACTIC ACID BLOOD REFLEX TO REPEAT STAT 02/23/2024 4:10 PM GAS STATION CASHIER TROPONIN-I HIGH SENSITIVE BASELINE + 1HR STAT 02/23/2024 4:10 PM GAS STATION CASHIER COMPREHENSIVE METABOLIC PANEL STAT 02/23/2024 4:10 PM GAS STATION CASHIER MAGNESIUM BLOOD STAT 02/23/2024 4:10 PM GAS STATION CASHIER LIPASE BLOOD STAT 02/23/2024 4:10 PM GAS STATION CASHIER EKG 12-LEAD STAT 02/23/2024 3:30 PM GAS STATION CASHIER Hypotension, unspecified hypotension type documented in this encounter Results * (ABNORMAL) GLUCOSE - POINT OF CARE (02/25/2024 6:04 PM GAS STATION CASHIER) Pathologist [facility] Glucose WB/POC 225(H) 70 - 99 mg/dL 02/25/2024 10:00 PM GAS STATION CASHIER [facility] Specimen Type Cap Fingerstick 2023 10:00 PM GAS STATION CASHIER [facility] Blood BLOOD SPECIMEN / Unknown 02/25/2024 6:04 PM GAS STATION CASHIER 02/25/2024 10:00 PM GAS STATION CASHIER Osiel Lopez MD LAB - POINT OF CARE ORDERABLES [facility] [address] [place] [address] * SARS-COV-2 (COVID-19) RAPID (02/25/2024 3:12 PM GAS STATION CASHIER) [facility] COVID-19 PCR Not detected Not detected 02/25/20 24 4:02 PM GAS STATION CASHIER [facility] Microbiology SPECIMEN FROM NASOPHARYNGEAL STRUCTURE / Unknown Collection / Unknown 02/25/2024 3:12 PM GAS STATION CASHIER 02/25/2024 3:27 PM GAS STATION CASHIER Narrative [facility] - 02/25/2024 4:02 PM GAS STATION CASHIER The Cepheid Xpert Xpress SARS-COV-2 has been [...] - MICROBIOLOGY O RDERABLES Performing Organization Address [facility] Co de Phone Number [facility] [id number] [place] [address] * (ABNORMAL) GLUCOSE - POINT OF CARE (02/25/2024 12:05 PM GAS STATION CASHIER) Glucose WB/POC 181(H) 70 - 99 mg/dL 02/25/2024 12:23 PM GAS STATION CASHIER [facility] Specimen Type Cap Fingerstick 2023 12:23 PM GAS STATION CASHIER [facility] Blood BLOOD SPECIMEN / Unknown 02/25/2024 12:05 PM GAS STATION CASHIER 02/25/2024 12:23 PM GAS STATION CASHIER Osiel Lopez MD LAB - POINT OF CARE ORDERABLES Performing Organization Address [facility] de Phone Number [facility] [address] [place] [address] * (ABNORMAL) BASIC METABOLIC PANEL (CALCIUM TOTAL) (02/25/2024 4:14 AM GAS STATION CASHIER) Glucose 192(H) 70 - 99 mg/dL 02/25/2024 6:02 AM GAS STATION CASHIER [facility] Sodium 132(L) 136 - 145 mmol/L 02/25/2024 6:02 AM GAS STATION CASHIER [facility] Potassium 4.2 3.5 - 5.1 mmol/L 02/25/2024 6:02 AM GAS STATION CASHIER [facility] Chloride 104 98 - 107 mmol/L 02/25/2024 6:02 AM GAS STATION CASHIER [facility] CO2 20(L) 22 - 29 mmol/L 02/25/2024 6:02 AM [facility] Calcium 8.3(L) 8.4 - 10.4 mg/dL 02/25/2024 6:02 AM [facility] Anion Gap 8 6 - 16 mmol/L 02/25/2024 6:02 AM [facility] BUN 12 7 - 26 mg/dL 02/25/2024 6:02 AM [facility] Creatinine 0.87 0.72 - 1.25 mg/dL 02/25/2024 6:02 AM [facility] eGFR by CKD-EPI 84(L) >=90 mL/min/1.7 3 m2 02/25/2024 6:02 AM [facility] Blood BLOOD SPECIMEN / Unknown Venipuncture / Unknown 02/25/2024 4:14 AM GAS STATION CASHIER 02/25/2024 5:43 AM GAS STATION CASHIER Osiel Lopez MD LAB - CHEMISTRY ORDE RABLIDA Performing Organization Address [facility] Co de Phone Number [facility] [id number] [place] [address] * CARDIAC EKG ORDER (02/24/2024 6:35 PM GAS STATION CASHIER) Narrative 02/24/2024 6:35 PM GAS STATION CASHIER Ordered by an unspecified provider. Scanned Document CARDIAC SERVICES ORD ERABLES * (ABNORMAL) GLUCOSE - POINT OF CARE (02/24/2024 5:59 PM GAS STATION CASHIER) [facility] Glucose WB/POC 183(H) 70 - 99 mg/dL 02/24/2024 7:42 PM GAS STATION CASHIER [facility] Specimen Type Cap Fingerstick 2023 7:42 PM GAS STATION CASHIER [facility] Blood BLOOD SPECIMEN / Unknown 02/24/2024 5:59 PM GAS STATION CASHIER 02/24/2024 7:42 PM GAS STATION CASHIER Osiel Lopez MD LAB - POINT OF CARE ORDERABLES Performing Organization Address [facility] Co de Phone Number [facility] [address] [place] [address] * (ABNORMAL) URINALYSIS REFLEX MICROSCOPIC REFLEX CULTURE (02/24/2024 5:43 AM GAS STATION CASHIER) Color UA Yellow Yellow, Straw 02/24/2024 6:53 AM [facility] Clarity UA Clear Clear 02/24/2024 6:53 AM [facility] Glucose UA Normal Normal 02/24/2024 6:53 AM [facility] Bilirubin UA Negative Negative 02/24/2024 6:53 AM [facility] Ketone UA Negative Negative 02/24/2024 6:53 AM [facility] Specific [place] UA 1.023 1.005 - 1.030 02/24/2024 6:53 AM [facility] Blood UA Negative Negative 02/24/2024 6:53 AM [facility] pH UA 5.5 5.0 - 9.0 pH 02/24/2024 6:53 AM [facility] Protein UA Trace(A) Negative 02/24/2024 6:53 AM [facility] Urobilinogen UA Normal Normal mg/dL 024 6:53 AM [facility] Nitrite UA Negative Negative 02/24/2024 6:53 AM [facility] Leukocyte UA Negative Negative 02/24/2024 6:53 AM [facility] Urine URINE SPECIMEN OBTAINED BY CLEAN CATCH PROCEDURE / Unknown Collection / Unknown 02/24/2024 5:43 AM GAS STATION CASHIER 02/24/2024 6:44 AM GAS STATION CASHIER Narrative [facility] - 02/24/2024 6:53 AM GAS STATION CASHIER Britton Llamas DO LAB - URINALYSIS ORD ERABLES Performing Organization Address City/State/[facility] Co de Phone Number [facility] [address] [place] [address] * TSH REFLEX FREE T4 (02/24/2024 5:38 AM GAS STATION CASHIER) TSH 2.611 0.350 - 4.940 uIU/mL 02/24/2024 6:26 AM [facility] Blood BLOOD SPECIMEN / Unknown Venipuncture / Unknown 02/24/2024 5:38 AM GAS STATION CASHIER 02/24/2024 5:38 AM GAS STATION CASHIER Navdeep G Aravind DO LAB - CHEMISTRY OR DERABLES Performing Organization Address City/[facility]/ZIP Co de Phone Number [facility] [address] [place], [place] [id number] * MAGNESIUM BLOOD (02/24/2024 5:38 AM GAS STATION CASHIER) Pathologist [facility] Magnesium 1.8 1.6 - 2.6 mg/dL 02/24/2024 6:19 AM GAS STATION CASHIER [facility] Blood BLOOD SPECIMEN / Unknown Venipuncture / Unknown 02/24/2024 5:38 AM GAS STATION CASHIER 02/24/2024 5:38 AM GAS STATION CASHIER Navdeep G Aravind DO LAB - CHEMISTRY OR DERABLES Performing Organization Address [facility] Co de Phone Number [facility] [address] [place] [address] [phone] * (ABNORMAL) CBC W/O DIFFERENTIAL (02/24/2024 5:38 AM GAS STATION CASHIER) [facility] WBC 6.7 4.0 - 10.7 x10E9/L 02/24/2024 5:46 AM [facility] RBC Count 3.53(L) 4.30 - 5.80 x10E12/L 02/24/2024 5:46 AM [facility] Hemoglobin 11.0(L) 13.3 - 17.5 g/dL 02/24/2024 5:46 AM [facility] Hematocrit 33.7(L) 38.7 - 51.1 % 02/24/2024 5:46 AM [facility] MCV 95.5 80.0 - 98.0 fL 02/24/2024 5:46 AM [facility] MCH 31.2 26.7 - 33.6 pg 02/24/2024 5:46 AM [facility] MCHC 32.6 31.7 - 36.3 g/dL 02/24/2024 5:46 AM [facility] RDW-CV 13.5 11.3 - 14.8 % 02/24/2024 5:46 AM [facility] Platelet Count 320 150 - 420 x10E9/L 02/24/2024 5:46 AM [facility] MPV 9.3 7.8 - 11.4 fL 02/24/2024 5:46 AM [facility] Blood BLOOD SPECIMEN / Unknown Venipuncture / Unknown 02/24/2024 5:38 AM GAS STATION CASHIER 02/24/2024 5:38 AM GAS STATION CASHIER Navdeep Nazario DO LAB - HEMATOLOGY O RDERABLES Performing Organization Address City/[facility]/ZIP Co de Phone Number [facility] [address] [place] [phone] * (ABNORMAL) BASIC METABOLIC PANEL (CALCIUM TOTAL) (02/24/2024 5:38 AM GAS STATION CASHIER) [facility] Glucose 107(H) 70 - 99 mg/dL 02/24/2024 6:19 AM [facility] Sodium 133(L) 136 - 145 mmol/L 02/24/2024 6:19 AM [facility] Potassium 4.1 3.5 - 5.1 mmol/L 02/24/2024 6:19 AM [facility] Chloride 103 98 - 107 mmol/L 02/24/2024 6:19 AM [facility] CO2 24 22 - 29 mmol/L 02/24/2024 6:19 AM [facility] Calcium 8.7 8.4 - 10.4 mg/dL 02/24/2024 6:19 AM [facility] Anion Gap 6 6 - 16 mmol/L 02/24/2024 6:19 AM [facility] BUN 15 7 - 26 mg/dL 02/24/2024 6:19 AM [facility] Creatinine 0.87 0.72 - 1.25 mg/dL 02/24/2024 6:19 AM [facility] eGFR by CKD-EPI 84(L) >=90 mL/min/1.7 3 m2 02/24/2024 6:19 AM [facility] Blood BLOOD SPECIMEN / Unknown Venipuncture / Unknown 02/24/2024 5:38 AM GAS STATION CASHIER 02/24/2024 5:38 AM GAS STATION CASHIER Navdeep Nazario DO LAB - CHEMISTRY OR DERABLES Performing Organization Address City/[facility] Co de Phone Number [facility] [id number] [place] [phone] * LACTIC ACID BLOOD REFLEX TO REPEAT (02/24/2024 5:38 AM GAS STATION CASHIER) Lactic Acid 1.0 <=2.0 mmol/L 02/24/2024 6:22 AM GAS STATION CASHIER [facility] Blood BLOOD SPECIMEN / Unknown Venipuncture / Unknown 02/24/2024 5:38 AM GAS STATION CASHIER 02/24/2024 5:39 AM GAS STATION CASHIER [facility] - CHEMISTRY ORDE TIRSO Performing Organization Address [facility] de Phone Number [facility] [address] [place] [phone] * TROPONIN-I HIGH SENSITIVE REFLEX 1HOUR (02/23/2024 5:20 PM GAS STATION CASHIER) Troponin I High Sensitive <3 <=35 ng/L 02/23/2024 6:14 PM GAS STATION CASHIER [facility] Delta Troponin I HS 02/23/2024 6:14 PM GAS STATION CASHIER [facility] Comment:Result exceeds linea rity range. A delta value is unable to be calculated. Blood BLOOD SPECIMEN / Unknown Venipuncture / Unknown 02/23/2024 5:20 PM GAS STATION CASHIER 02/23/2024 5:47 PM GAS STATION CASHIER [facility] LAB - CHEMISTRY ORDNatasha CHAHAL Performing Organization Address [facility] de Phone Number [facility] [address] [place] [address] * XR CHEST 1VW PORTABLE (02/23/2024 5:01 PM GAS STATION CASHIER) Anatomical Region Laterality Modality Chest Computed Radiogr aphy 02/23/2024 5:05 PM GAS STATION CASHIER Impressions 02/23/2024 5:06 PM GAS STATION CASHIER IMPRESSION: No acute airspace infiltrate. > Interpreting Provider: Jacinda Peng MD on 02/23/2024 5:06 PM Narrative 02/23/2024 5:06 PM GAS STATION CASHIER PROCEDURE: ??XR CHEST 1VW PORTABLE DATE/TIME OF [...] CBC W AUTO DIFFERENTIAL (02/23/2024 4:51 PM GAS STATION CASHIER) WBC 9.3 4.0 - 10.7 x10E9/L 02/23/2024 5:05 PM GAS STATION CASHIER [facility] RBC Count 3.49(L) 4.30 - 5.80 x10E12/L 02/23/2024 5:05 PM GAS STATION CASHIER [facility] Hemoglobin 11.2(L) 13.3 - 17.5 g/dL 02/23/2024 5:05 PM GAS STATION CASHIER [facility] Hematocrit 33.2(L) 38.7 - 51.1 % 02/23/2024 5:05 PM GAS STATION CASHIER [facility] MCV 95.1 80.0 - 98.0 fL 02/23/2024 5:05 PM GAS STATION CASHIER [facility] MCH 32.1 26.7 - 33.6 pg 02/23/2024 5:05 PM GAS STATION CASHIER [facility] MCHC 33.7 31.7 - 36.3 g/dL 02/23/2024 5:05 PM GAS STATION CASHIER [facility] RDW-CV 13.6 11.3 - 14.8 % 02/23/2024 5:05 PM [facility] Platelet Count 284 150 - 420 x10E9/L 02/23/2024 5:05 PM [facility] MPV 9.3 7.8 - 11.4 fL 02/23/2024 5:05 PM [facility] Neutrophil % 80.0(H) 41.0 - 74.0 % 02/23/2024 5:05 PM [facility] Lymphocyte % 9.5(L) 17.0 - 47.0 % 02/23/2024 5:05 PM [facility] Monocyte % 9.5 3.0 - 11.0 % 02/23/2024 5:05 PM [facility] Eosinophil % 0.1 0.0 - 7.0 % 02/23/2024 5:05 PM [facility] Basophil % 0.5 0.0 - 1.6 % 02/23/2024 5:05 PM [facility] Immature Granulocytes % 0.4 0.0 - 1.0 % 02/23/2024 5:05 PM [facility] Neutrophil Absolute 7.45 1.60 - 7.50 x10E9/L 02/23/2024 5:05 PM [facility] Lymphocyte Absolute 0.88(L) 1.00 - 4.40 x10E9/L 02/23/2024 5:05 PM [facility] Monocyte Absolute 0.88 0.15 - 1.00 x10E9/L 02/23/2024 5:05 PM [facility] Eosinophil Absolute 0.01 0.00 - 0.60 x10E9/L 02/23/2024 5:05 PM [facility] Basophil Absolute 0.05 0.00 - 0.13 x10E9/L 02/23/2024 5:05 PM [facility] Blood BLOOD SPECIMEN / Unknown Venipuncture / Unknown 02/23/2024 4:51 PM GAS STATION CASHIER 02/23/2024 4:59 PM [facility] Britton Llamas DO LAB - HEMATOLOGY ORD ERABLES [facility] [address] [place] [address] * TROPONIN-I HIGH SENSITIVE BASELINE + 1HR (02/23/2024 4:10 PM GAS STATION CASHIER) [facility] Troponin I High Sensitive 4 <=35 ng/L 02/23/2024 5:03 PM GAS STATION CASHIER [facility] Blood BLOOD SPECIMEN / Unknown Venipuncture / Unknown 02/23/2024 4:10 PM GAS STATION CASHIER 02/23/2024 4:33 PM GAS STATION CASHIER Britton NOZA LAB - CHEMISTRY ORDE Financeit Performing Organization Address City/[facility]/ZIP Co de Phone Number [facility] [id number] [place] [address] [phone] * LIPASE BLOOD (02/23/2024 4:10 PM GAS STATION CASHIER) [facility] Lipase <4 <60 U/L 02/23/2024 5:01 PM GAS STATION CASHIER [facility] Blood BLOOD SPECIMEN / Unknown Venipuncture / Unknown 02/23/2024 4:10 PM GAS STATION CASHIER 02/23/2024 4:33 PM GAS STATION CASHIER Britton NOZA LAB - CHEMISTRY [employer] Performing Organization Address [facility] Co de Phone Number [facility] [address] [place] [phone] * MAGNESIUM BLOOD (02/23/2024 4:10 PM GAS STATION CASHIER) [facility] Magnesium 2.0 1.6 - 2.6 mg/dL 02/23/2024 4:59 PM GAS STATION CASHIER [facility] Blood BLOOD SPECIMEN / Unknown Venipuncture / Unknown 02/23/2024 4:10 PM GAS STATION CASHIER 02/23/2024 4:33 PM GAS STATION CASHIER Luminate LAB - CHEMISTRY Web AfricaE [employer] Performing Organization Address [facility] Co de Phone Number [facility] [id number] [place] [address] [phone] * (ABNORMAL) LACTIC ACID BLOOD REFLEX TO REPEAT (02/23/2024 4:10 PM GAS STATION CASHIER) [facility] Lactic Acid 2.1(H) <=2.0 mmol/L 02/23/2024 5:02 PM [facility] Blood BLOOD SPECIMEN / Unknown Venipuncture / Unknown 02/23/2024 4:10 PM GAS STATION CASHIER 02/23/2024 4:33 PM GAS STATION CASHIER Britton Llamas DO LAB - CHEMISTRY MELYSSA CHAHAL [facility] [address] [place] [address] * (ABNORMAL) COMPREHENSIVE METABOLIC PANEL (02/23/2024 4:10 PM GAS STATION CASHIER) [facility] Glucose 178(H) 70 - 99 mg/dL 02/23/2024 4:59 PM [facility] Sodium 132(L) 136 - 145 mmol/L 02/23/2024 4:59 PM [facility] Potassium 4.7 3.5 - 5.1 mmol/L 02/23/2024 4:59 PM [facility] Chloride 99 98 - 107 mmol/L 02/23/2024 4:59 PM [facility] CO2 21(L) 22 - 29 mmol/L 02/23/2024 4:59 PM [facility] Calcium 8.9 8.4 - 10.4 mg/dL 02/23/2024 4:59 PM [facility] Anion Gap 12 6 - 16 mmol/L 02/23/2024 4:59 PM [facility] BUN 18 7 - 26 mg/dL 02/23/2024 4:59 PM [facility] Creatinine 1.19 0.72 - 1.25 mg/dL 02/23/2024 4:59 PM [facility] Alkaline Phosphatase 62 40 - 150 U/L 02/23/2024 4:59 PM [facility] ALT 15 0 - 55 U/L 02/23/2024 4:59 PM [facility] AST 16 5 - 34 U/L 02/23/2024 4:59 PM [facility] Protein Total 6.7 6.4 - 8.3 gm/dL 02/23/2024 4:59 PM [facility] Albumin 2.6(L) 3.4 - 5.0 gm/dL 02/23/2024 4:59 PM [facility] Bilirubin Total 0.4 0.2 - 1.2 mg/dL 02/23/2024 4:59 PM G[facility] STATION CASHIER [facility] eGFR by CKD-EPI 59(L) >=90 mL/min/1.7 3 m2 02/23/2024 4:59 PM GAS STATION CASHIER [facility] Blood BLOOD SPECIMEN / Unknown Venipuncture / Unknown 02/23/2024 4:10 PM GAS STATION CASHIER 02/23/2024 4:33 PM GAS STATION CASHIER Britton Llamas DO LAB - CHEMISTRY MELYSSA CHAHAL [facility] [address] [place] [address] * EKG 12-LEAD (02/23/2024 3:30 PM GAS STATION CASHIER) Ventricular Rate 106 BPM [facility] Atrial Rate 106 BPM [facility] P-R Interval 172 ms [facility] QRS Duration ms 128 ms [facility] Q-T Interval ms 364 ms [facility] QTC Calculation (Bezet) 483 ms [facility] Calculated P [place] 36 degrees [facility] Calculated R [place] 76 degrees [facility] Calculated T [place] 21 degrees [facility] Interpretation EKG Sinus tachycardia Right bundle branch block Abnormal ECG No previous ECGs available Confirmed by ÁNGEL HUNTLEY MD ([id number]) on 02/24/2024 9:02:56 AM [facility] 02/23/2024 3:30 PM GAS STATION CASHIER 02/24/2024 9:02 AM GAS STATION CASHIER Rachna Allan TELECOMMUNICATIONS LINE INSTALLER-SPRAYER LEATHER ECG ORDERA BLES [facility] documented in this encounter Visit [...] 2114 $ New Bag/Syringe 02/24/2024 9:21 AM GAS STATION CASHIER 100 mL/hr $ New Bag/Syringe 02/23/2024 10:27 PM GAS STATION CASHIER 100 m L/hr 0.9% NaCl injection 1-10 [...] 8 hours. $ Given 02/26/2024 6:07 AM GAS STATION CASHIER 3 mL $ Given 02/25/2024 9:02 PM GAS STATION CASHIER 3 mL $ Given 02/25/2024 7:03 PM GAS STATION CASHIER 3 mL enoxaparin (Lovenox) injection 40 mg 40 mg, Subcutaneous, DAILY, First dose on Wed02/24/24 at 0900, Until Discontinued, (for prefilled syringes) do not expel air bubble from the syringe prior to the injection Remind Patient to not rub injection site. Could cause hematoma. $ Given 02/26/2024 9:06 AM GAS STATION CASHIER 40 mg Ab dominal Tissue $ Given 02/25/2024 10:45 AM GAS STATION CASHIER 40 mg A bd Left Lower Quadrant $ Given 02/24/2024 9:25 AM GAS STATION CASHIER 40 mg Ab dominal Tissue lactated ringers IV bolus 1,000 mL, at 1,935.48 mL/hr, Administer over 31 Minutes, ONCE, 1 dose, On Wed02/23/24 at 1830 $ New Bag/Syringe 02/23/2024 6:28 PM GAS STATION CASHIER 1,000 mL 1935.48 mL/hr lactobacillus (Lactinex) granules 1 packet 1 packet, Oral, 3 TIMES DAILY, First dose on Wed02/25/24 at 1100, Until Discontinued, . $ Given 02/26/2024 9:06 AM GAS STATION CASHIER 1 packet $ Given 02/25/2024 8:58 PM GAS STATION CASHIER 1 packet $ Given 02/25/2024 6:32 PM GAS STATION CASHIER 1 packet levothyroxine (Synthroid) tablet 75 mcg 75 mcg, Oral, DAILY BEFORE BREAKFAST, First dose on Wed02/24/24 at 0700, Until Discontinued, Take in the morning on an empty stomach. Do not give within 4 hours of antacids, iron or calcium supplements. $ Given 02/26/2024 6:07 AM GAS STATION CASHIER 75 mcg $ Given 02/25/2024 6:52 AM GAS STATION CASHIER 75 mcg $ Given 02/24/2024 6:09 AM GAS STATION CASHIER 75 mcg loratadine (Claritin) tablet 10 mg 10 mg, Oral, DAILY, First dose on Wed02/24/24 at 0915, Until Discontinued $ Given 02/26/2024 9:06 AM GAS STATION CASHIER 10 mg $ Given 02/25/2024 10:45 AM GAS STATION CASHIER 10 mg $ Given 02/24/2024 9:26 AM GAS STATION CASHIER 10 mg melatonin tablet 5 mg 5 mg, Oral, AT BEDTIME, First dose on Wed02/23/24 at 2200, Until Discontinued $ Given 02/25/2024 8:58 PM GAS STATION CASHIER 5 mg $ Given 02/24/2024 9:57 PM GAS STATION CASHIER 5 mg $ Given 02/23/2024 10:23 PM GAS STATION CASHIER 5 mg memantine (Namenda) tablet 5 mg 5 mg, Oral, 2 TIMES DAILY, First dose on Wed02/23/24 at 2200, Until Discontinued $ Given 02/26/2024 9:06 AM GAS STATION CASHIER 5 mg $ Given 02/25/2024 8:58 PM GAS STATION CASHIER 5 mg $ Given 02/25/2024 10:45 AM GAS STATION CASHIER 5 mg methylPREDNISolone sod succ (SOLU-Medrol) injection 20 mg 20 mg, Intravenous, ONCE, 1 dose, On Su 02/24/24 at 2115 $ Given 02/24/2024 9:56 PM GAS STATION CASHIER 20 mg ondansetron (disintegrating) (Zofran ODT) tablet [...] Recently Administered Medications Times are shown in GAS STATION CASHIER. Scheduled Medication Order 02/24/2024 02/25/2024 02/26/2024 0.9% [...] ($ Given - Provider: Charlie Ngo, JEAN-PAUL) 2057 ($ Given - Provider: Elke Dumont, [...] Under Investigation 02/25/2024 02/25/2024 02/25/2024 4:02 PM GAS STATION CASHIER documented as of this encounter Care Teams Embedded Software Development Engineer Relationship Specialty [place] [address] [place] [address] PCP - General Internal Medicine 01/26/22 [place] [address] [place] [phone] PCP - [facility] 02/19/22 [place] [address] [facility] [address] [place] [address] Ophthalmology 04/06/16 Fa[place] Ram[place] [address] [place] [address] Podiatry 01/24/21 documented as of this encounter
--- OUTSIDE RECORDS SUMMARY | 2024-04-03 02:25 | XMS_ITS | Encounter Summary ---
Author Organization [facility] Address [address] [facility] [place] [address] Care Team Providers Care Proofing Machine Operator Name Role Phone Ricco Andrew MD Unavailable [phone] Fawn Ramon DPM Unavailable Chris Aden MD Primary Care Provider [phone] Chris Aden MD Unavailable Encounter Details Date [...] Recorded Patient Health Questionnaire-2 Score 0 02/09/2024 [facility] [place] of Occupat ional Health - Occupational Stress [...] any time in the past 12 [facility], were you homeless or living in a senior care (including now)? No 02/24/2024 Sex and Gender Information Value Date Recorded Sex Assigned at Male 01/22/2023 1:45 PM CDT Gender Identity Male 01/22/2023 1:45 PM CDT Sexual Orientation Straight 01/22/2023 1: 45 PM CDT documented as of this encounter Plan of Treatment Upcoming Encounters Date Type Department Care Team (Late st Contact Info) Description 04/07/2024 10:00 AM MULTIPLEX OPERATOR Office Visit [facility] [id number] [place] [address] [address] [place] [address] Evelin Blanco, HEAVY EQUIPMENT RENTAL MANAGER-DRYWALL CONTRACTOR [address] [facility] [address] [place] [address] 06/06/2024 2:00 PM CDT Office Visit [facility] [id number] [place] [address] [address] [place] [address] [place] [address] [facility] [address] [place] [phone] documented as of this encounter Goals Goal Patient Goal Type Associated Problems Recent Progress Patient-Stated? Author Blood Pressure < 140/90 Blood Pressure 96/68(2023 2:34 PM MULTIPLEX OPERATOR) No Rere Kaufman Note: Caring for Your [...] Related Tools, and click ? HBP Trackers.? 6-416-EEA-USA-1 or ( ) National Heart, Lung and Blood [place]: http://www.nhlbi.nih.gov/health/infoctr/index.htm Blood Pressure < 140/90 Blood Pressure 96/68(2023 2:34 PM MULTIPLEX OPERATOR) Rere Vargas Note: Caring for Your [...] Related Tools, and click ? HBP Trackers.? 9-042-XES-[place]-1 or ( ) National Heart, Lung and Blood [place]: http://www.nhlbi.nih.gov/health/infoctr/index.htm Blood Pressure < 140/90 Blood Pressure 96/68(2023 2:34 PM MULTIPLEX OPERATOR) Cassie Parks Note: Caring for Your [...] Related Tools, and click ? HBP Trackers.? 2-430-NPR-USA-1 or ( ) National Heart, Lung and Blood [place]: http://www.nhlbi.nih.gov/health/infoctr/index.htm Exercise 5X per week (30 min per time) Exercise No Rere Kaufman Note: The [place] [employer] [...] diabetes: ? ? [place] Diabetes Association: www.diabetes.org 1-428-ZGSUITBT ( ) ? ? [place] Diabetes Association-Support group line: www.professional.diabetes.org ? ? [place] Heart Association: www.heart.org or 0-804-MCB-USA-1 ( ) [employer] MyPlate: www.TEEspymyplate.gov Have labs drawn Lifestyle Rere Vargas Note: [...] on filedocumented in this encounter Care Teams Proofing Machine Operator Relationship Specialty [place] [address] [place] [address] PCP - General Internal Medicine 01/26/22 [place] [address] [place] [address] PCP - [facility] 02/19/22 [place] [address] [facility] [address] [place] [address] Ophthalmology 04/06/16 Fawn Ramon DPM [address] [place] [address] Podiatry 01/24/21 documented as of this encounter
--- OUTSIDE RECORDS SUMMARY | 2024-04-03 02:25 | XMS_ITS | Encounter Summary ---
Author Organization [facility] Address [address] [place] [address] Care Team Providers Care Systems Applications Programming Lead Name Role Phone Ricco Andrew MD Unavailable [phone] Fawn Ramon DPM Unavailable [phone] Chris Aden MD Primary Care Provider [phone] Chris Aden MD Unavailable Reason for Visit * Reason Comments Refill Request Encounter Details Date Type Department Care Team (Late st Contact Info) Description 01/01/2024 Refill [facility] - Family Medicine [address] [place] [address] Chris Aden MD [address] [place] [phone] Refill Request Social History Tobacco Use [...] st Contact Info) Description 04/07/2024 10:00 AM REFERRAL CLERK [facility] [address] [facility] [address] [place] [address] Chayodevin EvelinNIKITA [address] [facility] [address] [place] [address] 06/06/2024 2:00 PM CDT [facility] [address] [facility] [address] [place] [address] [place] [address] [facility] [address] [place] [address] documented as of this encounter Goals Goal Patient Goal Type Associated Problems Recent Progress Patient-Stated? Author Blood Pressure < 140/90 Blood Pressure 96/68(2023 2:34 PM REFERRAL CLERK) Rere Vargas Note: Caring for Your [...] Where can I go for more information? [place] [employer] National Center: http://www.americanheart.org 1. In the top header, click ? Conditions? . 2. In the top header, click ? high blood pressure.? 3. For a printable blood pressure tracker, scroll toward the bottom of the page to Related Tools, and click ? HBP Trackers.? 8-216-VYN-USA-1 or ( ) National Heart, Lung and Blood [place]: http://www.nhlbi.nih.gov/health/infoctr/index.htm Blood Pressure < 140/90 Blood Pressure 96/68(2023 2:34 PM REFERRAL CLERK) Rere Vargas Note: Caring for Your [...] Where can I go for more information? [place] Heart [employer] National Center: http://www.americanheart.org 1. In the top header, click ? Conditions? . 2. In the top header, click ? high blood pressure.? 3. For a printable blood pressure tracker, scroll toward the bottom of the page to Related Tools, and click ? HBP Trackers.? 2-012-EVL-USA-1 or ( ) National Heart, Lung and Blood [place]: http://www.nhlbi.nih.gov/health/infoctr/index.htm Blood Pressure < 140/90 Blood Pressure 96/68(2023 2:34 PM REFERRAL CLERK) Cassie Parks Note: Caring for Your [...] Where can I go for more information? [place] Heart [employer] National Center: http://www.americanheart.org 1. In the top header, click ? Conditions? . 2. In the top header, click ? high blood pressure.? 3. For a printable blood pressure tracker, scroll toward the bottom of the page to Related Tools, and click ? HBP Trackers.? 8-421-YEF-USA-1 or ( ) National Heart, Lung and Blood [place]: http://www.nhlbi.nih.gov/health/infoctr/index.htm Exercise 5X per week (30 min per time) Exercise Rere Vargas Note: The [place] [employer] recommends all adults [...] how to manage your diabetes: ? ? [place] Diabetes Association: www.diabetes.org 8-015-XSEKXSUG ( ) ? ? [place] Diabetes [employer]-Support group line: www.professional.diabetes.org ? ? [place] Heart Association: www.heart.org or 0-488-KMY-USA-1 ( ) [employer] MyPlate: www.OpenGammamyplate.gov Have labs drawn Lifestyle No Rere Kaufman [...] on filedocumented in this encounter Care Teams Systems Applications Programming Lead Relationship Specialty [place] [address] [place] [address] PCP - General Internal Medicine 01/26/22 [place] [address] [place] [address] PCP - [facility] 02/19/22 [place] [address] [facility] [address] [place] [address] Ophthalmology 04/06/16 Fawn Ramon [place]PM [address] [place] [address] Podiatry 01/24/21 documented as of this encounter
--- OUTSIDE RECORDS SUMMARY | 2024-04-03 02:25 | XMS_ITS | Patient Health Summary ---
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 This disclosure is being madepursuant to the Care Everywhere program and may not contain all information available regarding this patient. Last updated 17.[facility] Allergies * Ibuprofen(Other) * Sulfamethoxazole W-Trimethoprim(Rash) -Medium [...] Recorded Patient Health Questionnaire-2 Score 2 03/06/2024 [facility] [place] of Occupat ional Health - Occupational Stress [...] any time in the past [facility] were you homeless or living in a care home (including now)? No 02/24/2024 Sex and Gender Information Value Date Recorded Sex Assigned at Male 01/22/2023 1:45 PM CDT Gender Identity Male 01/22/2023 1:45 PM CDT Sexual Orientation Straight 01/22/2023 1: 45 PM CDT Last Filed Vital Signs Vital Sign Reading Time Taken Comments Blood Pressure 96/68 03/06/2024 2:34 PM FAMILY MEDICINE PHYSICIAN Pulse 70 03/06/2024 2:34 PM FAMILY MEDICINE PHYSICIAN Temperature 36.7 ??C (98 ??F) 03/06/2024 2:34 PM FAMILY MEDICINE PHYSICIAN Respiratory Rate 18 03/06/2024 2:34 PM FAMILY MEDICINE PHYSICIAN Oxygen Saturation 96% 03/06/2024 2:34 PM FAMILY MEDICINE PHYSICIAN Inhaled Oxygen Concentration - - Weight 65.8 kg (145 lb) 02/24/2024 12:31 AM FAMILY MEDICINE PHYSICIAN Height 170.2 cm (5' 7) 03/06/2024 2:34 PM FAMILY MEDICINE PHYSICIAN Body Mass Index 22.71 02/24/2024 12:31 AM FAMILY MEDICINE PHYSICIAN Procedures * GLUCOSE - POINT OF CARE(Performed [...] with hyperglycemia, without long-term current use of insulin([facility]) * HEMOGLOBIN A1C W EAG(Performed 12/02/2023) Performed for Type 2 diabetes mellitus with hyperglycemia, without long-term current use of insulin([facility]) * CBC W/O DIFFERENTIAL(Performed 12/02/2023) Performed for Essential hypertension * COMPREHENSIVE METABOLIC PANEL(Performed 12/02/2023) Performed for Essential hypertension * HEMOGLOBIN A1C - POINT OF CARE (AMB)(Performed 12/02/2023) Performed for Type 2 diabetes mellitus with hyperglycemia, without long-term current use of insulin([facility]) * CULTURE URINE(Performed 03/02/2023) Performed for Acute [...] without long- term current use of insulin ([facility]) * HEMOGLOBIN A1C W EAG(Performed 10/27/2022) Performed for Type 2 diabetes mellitus with diabetic neuropathy, without long- term current use of insulin ([facility]) * CBC W/O DIFFERENTIAL(Performed 10/27/2022) Performed for [...] disease, without long-term current use of insulin ([facility]), Type 2 diabetes mellitus with diabetic polyneuropathy, without long-term current use of insulin ([facility]), Type 2 diabetes mellitus with retinopathy, without long-term current use of insulin, macular edema presence unspecified, unspecified laterality, unspecified retinopathy severity ([facility]) * LIPID PROFILE REFLEX LDL DIRECT(Performed 03/04/2021) Performed for Type 2 diabetes mellitus with stage 3a chronic kidney disease, without long-term current use of insulin ([facility]), Type 2 diabetes mellitus with diabetic polyneuropathy, without long-term current use of insulin ([facility]), Type 2 diabetes mellitus with retinopathy, without long-term current use of insulin, macular edema presence unspecified, unspecified laterality, unspecified retinopathy severity ([facility]) * CBC W AUTO DIFFERENTIAL(Performed 03/04/2021) Performed for Type 2 diabetes mellitus with stage 3a chronic kidney disease, without long-term current use of insulin ([facility]), Type 2 diabetes mellitus with diabetic polyneuropathy, without long-term current use of insulin ([facility]), Type 2 diabetes mellitus with retinopathy, without long-term current use of insulin, macular edema presence unspecified, unspecified laterality, unspecified retinopathy severity ([facility]) * COMPREHENSIVE METABOLIC PANEL(Performed 03/04/2021) Performed for Type 2 diabetes mellitus with stage 3a chronic kidney disease, without long-term current use of insulin ([facility]), Type 2 diabetes mellitus with diabetic polyneuropathy, without long-term current use of insulin ([facility]), Type 2 diabetes mellitus with retinopathy, without long-term current use of insulin, macular edema presence unspecified, unspecified laterality, unspecified retinopathy severity ([facility]) * HEMOGLOBIN A1C W EAG(Performed 03/04/2021) Performed for Type 2 diabetes mellitus with stage 3a chronic kidney disease, without long-term current use of insulin ([facility]), Type 2 diabetes mellitus with diabetic polyneuropathy, without long-term current use of insulin ([facility]), Type 2 diabetes mellitus with retinopathy, without long-term current use of insulin, macular edema presence unspecified, unspecified laterality, unspecified retinopathy severity ([facility]) * HM DIABETES EYE EXAM(Performed 04/04/2020) * TSH REFLEX FREE T4(Performed 03/04/2020) Performed for Hypothyroidism, adult * HEMOGLOBIN A1C W EAG(Performed 03/04/2020) Performed for Type 2 diabetes mellitus with diabetic neuropathy, unspecified whether fdc insulin use ([facility]) * COMPREHENSIVE METABOLIC PANEL(Performed 03/04/2020) Performed for Stage 3 chronic kidney disease, unspecified whether stage 3a or 3b CKD ([facility]) * T4 FREE(Performed 08/30/2019) Performed for Hypothyroidism, adult * TSH(Performed 08/30/2019) Performed for Hypothyroidism, adult * MICROALB/CREAT RATIO URINE RANDOM PANEL(Performed 08/30/2019) Performed for Type 2 diabetes mellitus with diabetic neuropathy, unspecified whether fdc insulin use ([facility]), Type 2 diabetes mellitus with stage 3 chronic kidney disease, unspecified whether fdc insulin use * LIPID PROFILE REFLEX LDL DIRECT(Performed 08/30/2019) Performed for Type 2 diabetes mellitus with diabetic neuropathy, unspecified whether terminal makeup operator insulin use ([facility]), Type 2 diabetes mellitus with stage 3 chronic kidney disease, unspecified whether terminal makeup operator insulin use * CBC W AUTO DIFFERENTIAL(Performed 08/30/2019) Performed for Type 2 diabetes mellitus with diabetic neuropathy, unspecified whether fdc insulin use ([facility]), Type 2 diabetes mellitus with stage 3 chronic kidney disease, unspecified whether terminal makeup operator insulin use * COMPREHENSIVE METABOLIC PANEL(Performed 08/30/2019) Performed for Type 2 diabetes mellitus with diabetic neuropathy, unspecified whether terminal makeup operator insulin use ([facility]), Type 2 diabetes mellitus with stage 3 chronic kidney disease, unspecified whether fdc insulin use * HEMOGLOBIN A1C W EAG(Performed 08/30/2019) Performed for Type 2 diabetes mellitus with diabetic neuropathy, unspecified whether terminal makeup operator insulin use ([facility]), Type 2 diabetes mellitus with stage 3 chronic kidney disease, unspecified whether fdc insulin use * HEMOGLOBIN A1C W EAG(Performed 02/28/2019) Performed for Type 2 diabetes mellitus with diabetic neuropathy, unspecified whether fdc insulin use ([facility]), Type 2 diabetes mellitus with stage 3 chronic kidney disease, unspecified whether fdc insulin use * TSH+FREE T4+FREE T3(Performed 08/29/2018) Performed for Hypothyroidism, adult * COMPREHENSIVE METABOLIC PANEL(Performed 08/29/2018) Performed for Type 2 diabetes mellitus with diabetic neuropathy, unspecified whether fdc insulin use ([facility]), Type 2 diabetes mellitus with stage 3 chronic kidney disease, unspecified whether fdc insulin use, Benign hypertension with chronic kidney disease * HEMOGLOBIN A1C(Performed 08/29/2018) Performed for Type 2 diabetes mellitus with diabetic neuropathy, unspecified whether terminal makeup operator insulin use (HCC), Type 2 diabetes mellitus with stage 3 chronic kidney disease, unspecified whether terminal makeup operator insulin use * DIABETES EYE EXAM(Performed 05/06/2018) * XR CHEST 2VW(Performed 04/07/2018) Performed for Acute bronchitis, unspecified organism * LAB RESULTS ORDER(Performed 03/04/2018) * T4 FREE(Performed 03/02/2018) * MICROALB/CREAT RATIO URINE RANDOM PANEL(Performed 03/02/2018) Performed for Type 2 diabetes mellitus with stage 3 chronic kidney disease, without long-term current use of insulin ([facility]) * TSH REFLEX FREE T4(Performed 03/02/2018) Performed for Type 2 diabetes mellitus with stage 3 chronic kidney disease, without long-term current use of insulin ([facility]) * HEMOGLOBIN A1C(Performed 03/02/2018) Performed for Type 2 diabetes mellitus with stage 3 chronic kidney disease, without long-term current use of insulin ([facility]) * LIPID PROFILE(Performed 03/02/2018) Performed for Type 2 diabetes mellitus with stage 3 chronic kidney disease, without long-term current use of insulin ([facility]) * COMPREHENSIVE METABOLIC PANEL(Performed 03/02/2018) Performed for Type 2 diabetes mellitus with stage 3 chronic kidney disease, without long-term current use of insulin ([facility]) * DIABETES EYE EXAM(Performed 01/11/2018) * HEMOGLOBIN A1C(Performed 08/31/2017) Performed for Type 2 diabetes mellitus with diabetic neuropathy, without long- term current use of insulin ([facility]), Type 2 diabetes mellitus with stage 3 chronic kidney disease, without long-term current use of insulin ([facility]) * COMPREHENSIVE METABOLIC PANEL(Performed 08/31/2017) Performed for Type 2 diabetes mellitus with diabetic neuropathy, without long- term current use of insulin ([facility]), Type 2 diabetes mellitus with stage 3 chronic kidney disease, without long-term current use of insulin ([facility]) * TSH(Performed 03/01/2017) Performed for Hypothyroidism, adult * MICROALB/CREAT RATIO URINE RANDOM PANEL(Performed 03/01/2017) Performed for Type 2 diabetes mellitus with stage 3 chronic kidney disease, without long-term current use of insulin ([facility]), Type 2 diabetes mellitus with diabetic neuropathy, without long-term current use of insulin ([facility]) * HEMOGLOBIN A1C(Performed 03/01/2017) Performed for Type [...] neuropathy, without long-term current use of insulin ([facility]), Benign hypertension with chronic kidney disease * LIPID PROFILE(Performed 03/01/2017) Performed for Type 2 diabetes mellitus with stage 3 chronic kidney disease, without long-term current use of insulin ([facility]), Type 2 diabetes mellitus with diabetic neuropathy, without long-term current use of insulin ([facility]) * BASIC METABOLIC PANEL (CALCIUM TOTAL)(Performed 07/23/2016) * HEMOGLOBIN A1C(Performed 07/23/2016) Performed for Type 2 diabetes mellitus with diabetic neuropathy, without long- term current use of insulin ([facility]), Type 2 diabetes mellitus with chronic kidney disease, without long-term current use ofinsulin, unspecified CKD stage ([facility]) * PT-INR(Performed 04/06/2016) Performed for Pre-operative cardiovascular [...] disease, without long-term current use of insulin ([facility]), Type 2 diabetes mellitus with diabetic neuropathy, without long-term current use of insulin ([facility]), Benign hypertension with chronic kidney disease * MICROALB/CREAT RATIO URINE RANDOM PANEL(Performed 02/06/2016) Performed for Type 2 diabetes mellitus with chronic kidney disease, without long-term current use of insulin, unspecified CKD stage ([facility]) * LIPID PROFILE(Performed 02/06/2016) Performed for Type 2 diabetes mellitus with chronic kidney disease, without long-term current use of insulin, unspecified CKD stage ([facility]) * HEMOGLOBIN A1C(Performed 02/06/2016) Performed for Type [...] - POINT OF CARE (02/25/2024 6:04 PM FAMILY MEDICINE PHYSICIAN) Only the most recent of3 resultswithin the time period is included. [facility] Glucose WB/POC 225(H) 70 - 99 mg/dL 02/25/2024 10:00 PM FAMILY MEDICINE PHYSICIAN [facility] Specimen Type Cap Fingerstick 2023 10:00 PM FAMILY MEDICINE PHYSICIAN [facility] Blood BLOOD SPECIMEN / Unknown 02/25/2024 6:04 PM FAMILY MEDICINE PHYSICIAN 02/25/2024 10:00 PM FAMILY MEDICINE PHYSICIAN Osiel Lopez MD LAB - POINT OF CARE ORDERABLES [facility] [id number] [address] [place] [id number] * SARS-COV-2 (COVID-19) RAPID (02/25/2024 3:12 PM FAMILY MEDICINE PHYSICIAN) [facility] COVID-19 PCR Not detected Not detected 02/25/20 24 4:02 PM FAMILY MEDICINE PHYSICIAN [facility] Microbiology SPECIMEN FROM NASOPHARYNGEAL STRUCTURE / Unknown Collection / Unknown 02/25/2024 3:12 PM FAMILY MEDICINE PHYSICIAN 02/25/2024 3:27 PM FAMILY MEDICINE PHYSICIAN Narrative [facility] - 02/25/2024 4:02 PM FAMILY MEDICINE PHYSICIAN The Cepheid Xpert Xpress SARS-COV-2 has been [...] Lopez MD LAB - MICROBIOLOGY O RDERABLES [facility] [address] [place] [address] * (ABNORMAL) BASIC METABOLIC PANEL (CALCIUM TOTAL) (02/25/2024 4:14 AM [facility]) Only the most recent of3 resultswithin the time period is included. Glucose 192(H) 70 - 99 mg/dL 02/25/2024 6:02 AM [facility] Sodium 132(L) 136 - 145 mmol/L 02/25/2024 6:02 AM [facility] Potassium 4.2 3.5 - 5.1 mmol/L 02/25/2024 6:02 AM [facility] Chloride 104 98 - 107 mmol/L 02/25/2024 6:02 AM [facility] CO2 20(L) 22 - 29 mmol/L 02/25/2024 6:02 AM [facility] Calcium 8.3(L) 8.4 - 10.4 mg/dL 02/25/2024 6:02 AM [facility] Anion Gap 8 6 - 16 mmol/L 02/25/2024 6:02 AM [facility] BUN 12 7 - 26 mg/dL 02/25/2024 6:02 AM [facility] Creatinine 0.87 0.72 - 1.25 mg/dL 02/25/2024 6:02 AM [facility] eGFR by CKD-EPI 84(L) >=90 mL/min/1.7 3 m2 02/25/2024 6:02 AM [facility] Blood BLOOD SPECIMEN / Unknown Venipuncture / Unknown 02/25/2024 4:14 AM FAMILY MEDICINE PHYSICIAN 02/25/2024 5:43 AM FAMILY MEDICINE PHYSICIAN Osiel Lopez MD LAB - CHEMISTRY MELYSSA CHAHAL [facility] [address] [place] [address] * CARDIAC EKG ORDER (02/24/2024 6:35 PM FAMILY MEDICINE PHYSICIAN) Narrative 02/24/2024 6:35 PM FAMILY MEDICINE PHYSICIAN Ordered by an unspecified provider. Scanned Document CARDIAC SERVICES ORD ERABLES * (ABNORMAL) URINALYSIS REFLEX MICROSCOPIC REFLEX CULTURE (02/24/2024 5:43 AM FAMILY MEDICINE PHYSICIAN) Color UA Yellow Yellow, Straw 02/24/2024 6:53 AM [facility] Clarity UA Clear Clear 02/24/2024 6:53 AM FAMILY MEDICINE PHYSICIAN [facility] Glucose UA Normal Normal 02/24/2024 6:53 AM FAMILY MEDICINE PHYSICIAN [facility] Bilirubin UA Negative Negative 02/24/2024 6:53 AM FAMILY MEDICINE PHYSICIAN [facility] Ketone UA Negative Negative 02/24/2024 6:53 AM FAMILY MEDICINE PHYSICIAN [facility] Specific Haskell UA 1.023 1.005 - 1.030 02/24/2024 6:53 AM FAMILY MEDICINE PHYSICIAN [facility] Blood UA Negative Negative 02/24/2024 6:53 AM [facility] pH UA 5.5 5.0 - 9.0 pH 02/24/2024 6:53 AM [facility] Protein UA Trace(A) Negative 02/24/2024 6:53 AM FAMILY MEDICINE PHYSICIAN [facility] Urobilinogen UA Normal Normal mg/dL 024 6:53 AM FAMILY MEDICINE PHYSICIAN [facility] Nitrite UA Negative Negative 02/24/2024 6:53 AM FAMILY MEDICINE PHYSICIAN [facility] Leukocyte UA Negative Negative 02/24/2024 6:53 AM [facility] Urine URINE SPECIMEN OBTAINED BY CLEAN CATCH PROCEDURE / Unknown Collection / Unknown 02/24/2024 5:43 AM FAMILY MEDICINE PHYSICIAN 02/24/2024 6:44 AM FAMILY MEDICINE PHYSICIAN Narrative [facility] - 02/24/2024 6:53 AM FAMILY MEDICINE PHYSICIAN Britton Llamas DO LAB - URINALYSIS ORD ERABLES Performing Organization Address [facility] de Phone Number [facility] [id number] [place] [address] [phone] * LACTIC ACID BLOOD REFLEX TO REPEAT (02/24/2024 5:38 AM FAMILY MEDICINE PHYSICIAN) Only the most recent of2 resultswithin the time period is included. Pathologist [facility] Lactic Acid 1.0 <=2.0 mmol/L 02/24/2024 6:22 AM FAMILY MEDICINE PHYSICIAN [facility] Blood BLOOD SPECIMEN / Unknown Venipuncture / Unknown 02/24/2024 5:38 AM FAMILY MEDICINE PHYSICIAN 02/24/2024 5:39 AM FAMILY MEDICINE PHYSICIAN Britton Llamas DO LAB - CHEMISTRY ORDE RABLES Performing Organization Address [facility] de Phone Number [facility] [address] [place] [address] [phone] * TSH REFLEX FREE T4 (02/24/2024 5:38 AM FAMILY MEDICINE PHYSICIAN) Only the most recent of4 resultswithin the time period is included. Pathologist [facility] TSH 2.611 0.350 - 4.940 uIU/mL 02/24/2024 6:26 AM FAMILY MEDICINE PHYSICIAN [facility] Blood BLOOD SPECIMEN / Unknown Venipuncture / Unknown 02/24/2024 5:38 AM FAMILY MEDICINE PHYSICIAN 02/24/2024 5:38 AM FAMILY MEDICINE PHYSICIAN Navdeep Nazario DO LAB - CHEMISTRY OR DERABLES Performing Organization Address [facility] de Phone Number [facility] [id number] [place] [address] [phone] * (ABNORMAL) CBC W/O DIFFERENTIAL (02/24/2024 5:38 AM FAMILY MEDICINE PHYSICIAN) Only the most recent of3 resultswithin the time period is included. Pathologist [facility] WBC 6.7 4.0 - 10.7 x10E9/L 02/24/2024 5:46 AM FAMILY MEDICINE PHYSICIAN [facility] RBC Count 3.53(L) 4.30 - 5.80 x10E12/L 02/24/2024 5:46 AM FAMILY MEDICINE PHYSICIAN [facility] Hemoglobin 11.0(L) 13.3 - 17.5 g/dL 02/24/2024 5:46 AM [facility] Hematocrit 33.7(L) 38.7 - 51.1 % 02/24/2024 5:46 AM [facility] MCV 95.5 80.0 - 98.0 fL 02/24/2024 5:46 AM [facility] MCH 31.2 26.7 - 33.6 pg 02/24/2024 5:46 AM [facility] MCHC 32.6 31.7 - 36.3 g/dL 02/24/2024 5:46 AM [facility] RDW-CV 13.5 11.3 - 14.8 % 02/24/2024 5:46 AM [facility] Platelet Count 320 150 - 420 x10E9/L 02/24/2024 5:46 AM [facility] MPV 9.3 7.8 - 11.4 fL 02/24/2024 5:46 AM [facility] Blood BLOOD SPECIMEN / Unknown Venipuncture / Unknown 02/24/2024 5:38 AM FAMILY MEDICINE PHYSICIAN 02/24/2024 5:38 AM FAMILY MEDICINE PHYSICIAN Navdeep Nazario DO LAB - HEMATOLOGY O RDERABLES Performing Organization Address [place]/[facility] Co de Phone Number [facility] [address] [place] [id number] * MAGNESIUM BLOOD (02/24/2024 5:38 AM FAMILY MEDICINE PHYSICIAN) Only the most recent of2 resultswithin the time period is included. Magnesium 1.8 1.6 - 2.6 mg/dL 02/24/2024 6:19 AM [facility] Blood BLOOD SPECIMEN / Unknown Venipuncture / Unknown 02/24/2024 5:38 AM FAMILY MEDICINE PHYSICIAN 02/24/2024 5:38 AM FAMILY MEDICINE PHYSICIAN Navdeep Nazario DO LAB - CHEMISTRY OR DERABLES Performing Organization Address [facility] Co de Phone Number [facility] [address] [place] [address] * TROPONIN-I HIGH SENSITIVE REFLEX 1HOUR (02/23/2024 5:20 PM FAMILY MEDICINE PHYSICIAN) Troponin I High Sensitive <3 <=35 ng/L 02/23/2024 6:14 PM FAMILY MEDICINE PHYSICIAN [facility] Delta Troponin I HS 02/23/2024 6:14 PM FAMILY MEDICINE PHYSICIAN [facility] Comment:Result exceeds linea rity range. A delta value is unable to be calculated. Blood BLOOD SPECIMEN / Unknown Venipuncture / Unknown 02/23/2024 5:20 PM FAMILY MEDICINE PHYSICIAN 02/23/2024 5:47 PM FAMILY MEDICINE PHYSICIAN Britton Llamas DO LAB - CHEMISTRY KWAMEE TIRSO [facility] [address] [place] [address] * XR CHEST 1VW PORTABLE (02/23/2024 5:01 PM FAMILY MEDICINE PHYSICIAN) Anatomical Region Laterality Modality Chest Computed Radiogr aphy 02/23/2024 5:05 PM FAMILY MEDICINE PHYSICIAN Impressions 02/23/2024 5:06 PM FAMILY MEDICINE PHYSICIAN IMPRESSION: No acute airspace infiltrate. > Interpreting Provider: Jacinda Peng MD on 02/23/2024 5:06 PM Narrative 02/23/2024 5:06 PM FAMILY MEDICINE PHYSICIAN PROCEDURE: ??XR CHEST 1VW PORTABLE DATE/TIME OF [...] CBC W AUTO DIFFERENTIAL (02/23/2024 4:51 PM FAMILY MEDICINE PHYSICIAN) Only the most recent of4 resultswithin the time period is included. WBC 9.3 4.0 - 10.7 x10E9/L 02/23/2024 5:05 PM FAMILY MEDICINE PHYSICIAN [facility] RBC Count 3.49(L) 4.30 - 5.80 x10E12/L 02/23/2024 5:05 PM FAMILY MEDICINE PHYSICIAN [facility] Hemoglobin 11.2(L) 13.3 - 17.5 g/dL 02/23/2024 5:05 PM FAMILY MEDICINE PHYSICIAN [facility] Hematocrit 33.2(L) 38.7 - 51.1 % 02/23/2024 5:05 PM FAMILY MEDICINE PHYSICIAN [facility] MCV 95.1 80.0 - 98.0 fL 02/23/2024 5:05 PM FAMILY MEDICINE PHYSICIAN [facility] MCH 32.1 26.7 - 33.6 pg 02/23/2024 5:05 PM FAMILY MEDICINE PHYSICIAN [facility] MCHC 33.7 31.7 - 36.3 g/dL 02/23/2024 5:05 PM FAMILY MEDICINE PHYSICIAN [facility] RDW-CV 13.6 11.3 - 14.8 % 02/23/2024 5:05 PM FAMILY MEDICINE PHYSICIAN [facility] Platelet Count 284 150 - 420 x10E9/L 02/23/2024 5:05 PM FAMILY MEDICINE PHYSICIAN [facility] MPV 9.3 7.8 - 11.4 fL 02/23/2024 5:05 PM FAMILY MEDICINE PHYSICIAN [facility] Neutrophil % 80.0(H) 41.0 - 74.0 % 02/23/2024 5:05 PM FAMILY MEDICINE PHYSICIAN [facility] Lymphocyte % 9.5(L) 17.0 - 47.0 % 02/23/2024 5:05 PM FAMILY MEDICINE PHYSICIAN [facility] Monocyte % 9.5 3.0 - 11.0 % 02/23/2024 5:05 PM FAMILY MEDICINE PHYSICIAN [facility] Eosinophil % 0.1 0.0 - 7.0 % 02/23/2024 5:05 PM FAMILY MEDICINE PHYSICIAN [facility] Basophil % 0.5 0.0 - 1.6 % 02/23/2024 5:05 PM FAMILY MEDICINE PHYSICIAN [facility] Immature Granulocytes % 0.4 0.0 - 1.0 % 02/23/2024 5:05 PM FAMILY MEDICINE PHYSICIAN [facility] Neutrophil Absolute 7.45 1.60 - 7.50 x10E9/L 02/23/2024 5:05 PM FAMILY MEDICINE PHYSICIAN [facility] Lymphocyte Absolute 0.88(L) 1.00 - 4.40 x10E9/L 02/23/2024 5:05 PM FAMILY MEDICINE PHYSICIAN [facility] Monocyte Absolute 0.88 0.15 - 1.00 x10E9/L 02/23/2024 5:05 PM FAMILY MEDICINE PHYSICIAN [facility] Eosinophil Absolute 0.01 0.00 - 0.60 x10E9/L 02/23/2024 5:05 PM FAMILY MEDICINE PHYSICIAN [facility] Basophil Absolute 0.05 0.00 - 0.13 x10E9/L 02/23/2024 5:05 PM FAMILY MEDICINE PHYSICIAN [facility] Blood BLOOD SPECIMEN / Unknown Venipuncture / Unknown 02/23/2024 4:51 PM FAMILY MEDICINE PHYSICIAN 02/23/2024 4:59 PM FAMILY MEDICINE PHYSICIAN Britton Llamas DO LAB - HEMATOLOGY ORD ERABLES Performing Organization Address City/[facility]/ZIP Co de Phone Number [facility] [address] [place] [address] * TROPONIN-I HIGH SENSITIVE BASELINE + 1HR (02/23/2024 4:10 PM FAMILY MEDICINE PHYSICIAN) [facility] Troponin I High Sensitive 4 <=35 ng/L 02/23/2024 5:03 PM FAMILY MEDICINE PHYSICIAN [facility] Blood BLOOD SPECIMEN / Unknown Venipuncture / Unknown 02/23/2024 4:10 PM FAMILY MEDICINE PHYSICIAN 02/23/2024 4:33 PM FAMILY MEDICINE PHYSICIAN Britton Llamas DO LAB - CHEMISTRY ORDE RABLES Performing Organization Address City/[facility]/ZIP Co de Phone Number [facility] [address] [place], [place] [id number] * (ABNORMAL) COMPREHENSIVE METABOLIC PANEL (02/23/2024 4:10 PM [facility]) Only the most recent of12 resultswithin the time period is included. Glucose 178(H) 70 - 99 mg/dL 02/23/2024 4:59 PM [facility] Sodium 132(L) 136 - 145 mmol/L 02/23/2024 4:59 PM [facility] Potassium 4.7 3.5 - 5.1 mmol/L 02/23/2024 4:59 PM [facility] Chloride 99 98 - 107 mmol/L 02/23/2024 4:59 PM [facility] CO2 21(L) 22 - 29 mmol/L 02/23/2024 4:59 PM [facility] Calcium 8.9 8.4 - 10.4 mg/dL 02/23/2024 4:59 PM [facility] Anion Gap 12 6 - 16 mmol/L 02/23/2024 4:59 PM [facility] BUN 18 7 - 26 mg/dL 02/23/2024 4:59 PM [facility] Creatinine 1.19 0.72 - 1.25 mg/dL 02/23/2024 4:59 PM [facility] Alkaline Phosphatase 62 40 - 150 U/L 02/23/2024 4:59 PM [facility] ALT 15 0 - 55 U/L 02/23/2024 4:59 PM [facility] AST 16 5 - 34 U/L 02/23/2024 4:59 PM [facility] Protein Total 6.7 6.4 - 8.3 gm/dL 02/23/2024 4:59 PM [facility] Albumin 2.6(L) 3.4 - 5.0 gm/dL 02/23/2024 4:59 PM [facility] Bilirubin Total 0.4 0.2 - 1.2 mg/dL 02/23/2024 4:59 PM [facility] eGFR by CKD-EPI 59(L) >=90 mL/min/1.7 3 m2 02/23/2024 4:59 PM [facility] Blood BLOOD SPECIMEN / Unknown Venipuncture / Unknown 02/23/2024 4:10 PM FAMILY MEDICINE PHYSICIAN 02/23/2024 4:33 PM FAMILY MEDICINE PHYSICIAN [facility] - CHEMISTRY [facility] TIRSO Performing Organization Address [facility] Co de Phone Number [facility] [address] [place] [address] * LIPASE BLOOD (02/23/2024 4:10 PM FAMILY MEDICINE PHYSICIAN) [facility] Lipase <4 <60 U/L 02/23/2024 5:01 PM FAMILY MEDICINE PHYSICIAN [facility] Blood BLOOD SPECIMEN / Unknown Venipuncture / Unknown 02/23/2024 4:10 PM FAMILY MEDICINE PHYSICIAN 02/23/2024 4:33 PM FAMILY MEDICINE PHYSICIAN [facility] - [facility]MI[facility]Y [facility] Performing Organization Address [facility] de Phone Number [facility] [id number] [place] [address] * EKG 12-LEAD (02/23/2024 3:30 PM FAMILY MEDICINE PHYSICIAN) Only the most recent of2 resultswithin the time period is included. [facility] Ventricular Rate 106 BPM [facility] Atrial Rate 106 BPM [facility] P-R Interval 172 ms [facility] QRS Duration ms 128 ms [facility] Q-T Interval ms 364 ms [facility] QTC Calculation (Bezet) 483 ms [facility] Calculated P Taberg 36 degrees [facility] MUSE Calculated R Taberg 76 degrees [facility] MUSE Calculated T Taberg 21 degrees [facility] Interpretation EKG Sinus tachycardia Right bundle branch block Abnormal ECG No previous ECGs available Confirmed by ÁNGEL HUNTLEY MD ([id number]) on 02/24/2024 9:02:56 AM [facility] MUSE 02/23/2024 3:30 PM FAMILY MEDICINE PHYSICIAN 02/24/2024 9:02 AM FAMILY MEDICINE PHYSICIAN Rachna SHELTON ECG ORDERA BLES Performing Organization Address City/[facility] Co de Phone Number [facility] [...] 7:12 AM CDT Performed at: ??01 - [facility] [address] [place], [place] ??[phone] Sales Agent [employer]: Mike Davila PhD, Phone: ??[phone] Chris Aden MD LAB - CHEMISTRY MELYSSA CHAHAL Performing Organization Address City/State/[facility] Co de Phone Number [facility] INSURANCE BILL [address] [place] [address] * MICROALB/CREAT RATIO URINE RANDOM PANEL (12/02/2023 [...] AM CDT Performed at: ??01 - [facility] [address] ??[phone] Sales Agent [employer]: Mike Davila PhD, Phone: ??[phone] Chris Aden MD LAB - URINE CHEMISTR Y ORDERABLES Performing Organization Address City/[facility]/ZIP Co de Phone Number [facility] INSURANCE BILL [address] [place] [address] * VITAMIN D 25-HYDROXY (12/02/2023 3:57 PM CDT) Only the most recent of2 resultswithin the time period is included. Vitamin D, 25 Hydroxy 66.1 30.0 - 100.0 ng/mL [facility] INSURANCE BILL Comment: Vitamin D deficiency has been defined by the [place] of Medicine and an Endocrine Society practice guideline as a level of serum 25-OH vitamin D less than 20 ng/mL (1,2). The Endocrine Society went on to further define vitamin D insufficiency as a level between 21 and 29 ng/mL (2). 1. IOM ([place] of Medicine). 2010. Dietary reference ?? intakes [...] AM CDT Performed at: ??01 - [facility] [address] ??[id number] Sales Agent [employer]: Mike Davila PhD, Phone: ??[phone] Chris Aden MD LAB - CHEMISTRY ORDE RABLES Performing Organization Address City/[facility]/ZIP Co de Phone Number [facility] INSURANCE BILL [address] [place] [address] * TSH (12/02/2023 3:57 PM CDT) Only the most recent of7 resultswithin the time period is included. TSH 3.290 0.450 - 4.500 uIU/mL [facility] INSURANCE BILL Blood BLOOD SPECIMEN / Unknown 12/02/2023 3:57 PM CDT 12/02/2023 Narrative [facility] INSURANCE BILL - 12/03/2023 8:20 AM CDT Performed at: ??01 - [facility] [address] [facility] [place], [place] ??[phone] Sales Agent [employer]: Mike Davila PhD, Phone: ??[phone] Chris Aden MD LAB - CHEMISTRY ORDNatasha CHAHAL Performing Organization Address City/[facility]/ZIP Co de Phone Number [facility] INSURANCE BILL [address] [place] [address] * HEMOGLOBIN A1C - POINT OF CARE (AMB) (12/02/2023 2:32 PM CDT) Hemoglobin A1c POCT 6.1 % [facility] Expiration Date 2025-08-29 [facility] Lot # [id number] [facility] QC Verified Yes Yes [facility] Blood BLOOD SPECIMEN / Unknown 12/02/2023 2:32 PM CDT Chris Aden MD LAB - POINT OF CARE ORDERABLES [facility] [id number] [phone] * CULTURE URINE (03/02/2023) Urine URINE SPECIMEN OBTAINED BY CLEAN CATCH PROCEDURE / Unknown 03/02/2023 Evelin Blanco APRN-[employer] LAB - MICROBIOL OGY ORDERABLES OTHER LAB * URINALYSIS REFLEX TO MICROSCOPIC NO CULTURE (03/01/2023) Urine URINE SPECIMEN OBTAINED BY CLEAN CATCH PROCEDURE / Unknown 03/01/2023 Evelin Blanco LIFT MECHANIC-[employer] LAB - URINALYSI S ORDERABLES OTHER LAB * LIPID PROFILE W TCHOL/HDL (10/27/2022 3:02 PM CDT) Cholesterol 156 <200 mg/dL [facility] ACCOUNT BILL Triglycerides 86 <150 mg/dL [facility] ACCOUNT BILL HDL Cholesterol 53 >40 mg/dL [facility] ACCOUNT BILL VLDL Calculated 17 <=30 mg/dL [facility] ACCOUNT BILL LDL Calculated 86 <130 mg/dL [facility] ACCOUNT BILL Comment:LDL/HDL RATIO BLOOD ([facility]) 1.6 <5.0 Cholesterol/HDL Ratio 2.9 <4.5 [facility] ACCOUNT BILL Comment:FASTING Blood BLOOD SPECIMEN / Unknown 10/27/2022 3:02 PM CDT 10/27/2022 Narrative Resulting Agency Comment Lab Testing performed at: [facility] [id number] [place] [address] ?? [facility] [phone] Chris Aden MD LAB - CHEMISTRY MELYSSA CHAHAL [facility] ACCOUNT BILL [address] [place] [address] * XR ABD OBSTRUCTION SERIES 2VW (08/26/2022 [...] MD on 08/26/2022 4:10 PM Evelin Blanco LIFT MECHANIC-[employer] DIAGNOSTIC IMAG ING ORDERABLES * XR THORACIC [...] MD on 08/26/2022 5:18 PM Evelin Blanco LIFT MECHANIC-[employer] DIAGNOSTIC IMAG ING ORDERABLES * LAB RESULTS [...] PROFILE REFLEX LDL DIRECT (03/04/2021 3:29 PM FAMILY MEDICINE PHYSICIAN) Only the most recent of2 resultswithin the [...] BLOOD SPECIMEN / Unknown 03/04/2021 3:29 PM FAMILY MEDICINE PHYSICIAN 03/04/2021 Narrative Resulting Agency Comment Lab Testing performed at: [facility] [place] [address] [address] ?? [place] [phone] Rosana Solo MD LAB - CHEMISTRY MELYSSA CHAHAL [facility] ACCOUNT BILL [address] [place] [address] * DIABETES EYE EXAM (04/04/2020) Only the [...] Resulting Agency Comment Lab Testing performed at: [place] [address] ?? [place] [phone] Rosana Solo MD LAB - CHEMISTRY MELYSSA CHAHAL [facility] ACCOUNT BILL [address] [place] [address] * (ABNORMAL) TSH+FREE T4+FREE T3 (08/29/2018 2:35 PM CDT) TSH 4.2161(H) 0.358 - 3.74 uIU/mL [facility] ACCOUNT BILL T3 Free 2.20 1.71 - 3.71 pg/mL [facility] ACCOUNT BILL T4 Free 1.04 0.70 - 1.48 ng/dL [facility] ACCOUNT BILL Blood BLOOD SPECIMEN / Unknown 08/29/2018 2:35 PM CDT 08/29/2018 Narrative Resulting Agency Comment Lab Testing performed at: [place] [id number] ?? [place] [phone] Rosana Solo MD LAB - CHEMISTRY MELYSSA CHAHAL Performing Organization Address City/[facility]/ZIP Co de Phone Number [facility] ACCOUNT BILL [address] [place] [address] * (ABNORMAL) HEMOGLOBIN A1C (08/29/2018 2:32 PM CDT) Only the most recent of6 resultswithin the time period is included. Hemoglobin A1c 7.4(H) 4.0 - 6.1 % [facility] ACCOUNT BILL Comment: AVERAGE GLUCOSE MG/DL BLOOD ??166 ?mg/dL Attention clinician: ??Reference Range has changed. Blood BLOOD SPECIMEN / Unknown 08/29/2018 2:32 PM CDT 08/29/2018 Narrative Resulting Agency Comment Lab Testing performed at: [facility] [id number] [place] [address] ?? [place] [phone] Rosana Solo MD LAB - CHEMISTRY [facility] ACCOUNT BILL [address] [place] [address] * XR CHEST 2VW (04/07/2018 4:35 PM FAMILY MEDICINE PHYSICIAN) Anatomical Region Laterality Modality Chest Radiographic Apolonia ging 04/07/2018 5:12 PM FAMILY MEDICINE PHYSICIAN Narrative 04/07/2018 5:13 PM FAMILY MEDICINE PHYSICIAN Chest Two Views History: Acute bronchitis, unspecified [...] * (ABNORMAL) LIPID PROFILE (03/02/2018 1:47 PM FAMILY MEDICINE PHYSICIAN) Only the most recent of3 resultswithin the time period is included. Cholesterol 171 <200 mg/dL [facility] ACCOUNT BILL Triglycerides 230(H) <150 mg/dL [facility] ACCOUNT BILL HDL Cholesterol 39(L) >40 mg/dL [facility] ACCOUNT BILL VLDL Calculated 46(H) <=30 mg/dL [facility] ACCOUNT BILL LDL Calculated 86 <130 mg/dL [facility] ACCOUNT BILL Comment:Not calculated Blood BLOOD SPECIMEN / Unknown 03/02/2018 1:47 PM FAMILY MEDICINE PHYSICIAN 03/02/2018 Narrative Resulting Agency Comment [facility] [address] ??[place] [phone] Rosana Solo MD LAB - CHEMISTRY ORDE RABLES [facility] ACCOUNT BILL [address] [place] [address] * PT-INR (04/06/2016 3:36 PM FAMILY MEDICINE PHYSICIAN) INR 0.9 0.9 - 1.1 [facility] ACCOUNT BILL Comment: Conventional Warfarin Anticoagulant Therapy: INR Reference Range: ??2.0-3.0 Intensive Warfarin Anticoagulant Therapy: INR Reference Range: ? 2.5-3.5 PT 9.7 9.5 - 11.6 sec [facility] ACCOUNT BILL Blood BLOOD SPECIMEN / Unknown 04/06/2016 3:36 PM FAMILY MEDICINE PHYSICIAN 04/06/2016 Narrative Resulting Agency Comment [facility] [address] ??[place] [phone] Rosana Solo MD LAB - COAGULATION OR DERABLES Performing Organization Address City/[facility]/ZIP Co de Phone Number [facility] ACCOUNT BILL [address] [place] [address] Care Teams Fishing Line Winding Machine Operator Relationship Specialty [place] [address] [place] [address] PCP - General Internal Medicine 01/26/22 [place] [address] [place] [phone] PCP - [facility] 02/19/22 [place] [address] [facility] [address] [place] [address] Ophthalmology 04/06/16 Fawn Ramon DPM [address] [place] [address] Podiatry 01/24/21
--- OUTSIDE RECORDS SUMMARY | 2024-04-03 02:25 | XMS_ITS | Encounter Summary ---
Author Organization [facility] Address [address] [place] [address] Care Team Providers Care Railway Switch Operator Name Role Phone Ricco Andrew MD Unavailable aFwn Ramon DPM Unavailable [phone] Chris Aden MD Primary Care Provider [phone] Chris Aden MD Unavailable Reason for Visit * Reason Onset Date Comments Question 08/31/2023 Diarrhea 08/31/2023 Encounter Details Date Type Department Care Team (Late st Contact Info) Description 08/31/2023 Telephone [facility] - Family Medicine [id number] [place] [address] [place] [address] [address] Question; Diarrhea Social History Tobacco [...] calling to report pt was taken to [facility] for diarrhea last Wednesday after having had diarrhea x 1 week and becoming weak. He was treated with IVF's and sent home and has a hospital f/u this Wednesday w/the CONVEYOR OPERATOR. He takes scheduled Miralax but asking if [...] st Contact Info) Description 04/07/2024 10:00 AM INVESTMENT SALES ASSISTANT Office Visit [address] [address] Evelin Blanco, KEYING MACHINE OPERATOR-TEXT TRANSCRIBER [id number] [place] [address] 06/06/2024 2:00 PM CDT Office Visit [address] [address] Chris Aden MD [address] [place] [phone] documented as of this encounter Goals Goal Patient Goal Type Associated Problems Recent Progress Patient-Stated? Author Blood Pressure < 140/90 Blood Pressure 96/68(2023 2:34 PM INVESTMENT SALES ASSISTANT) Rere Vargas Note: Caring for Your [...] Related Tools, and click ? HBP Trackers.? 6-686-WKF-USA-1 or ( ) National Heart, Lung and Blood [place]: http://www.nhlbi.nih.gov/health/infoctr/index.htm Blood Pressure < 140/90 Blood Pressure 96/68(2023 2:34 PM INVESTMENT SALES ASSISTANT) Rere Vargas Note: Caring for Your [...] Related Tools, and click ? HBP Trackers.? 6-680-JIN-USA-1 or ( ) National Heart, Lung and Blood [place]: http://www.nhlbi.nih.gov/health/infoctr/index.htm Blood Pressure < 140/90 Blood Pressure 96/68(2023 2:34 PM INVESTMENT SALES ASSISTANT) Cassie Parks Note: Caring for Your [...] Related Tools, and click ? HBP Trackers.? 7-975-HOC-USA-1 or ( ) National Heart, Lung and Blood [place]: http://www.nhlbi.nih.gov/health/infoctr/index.htm Exercise 5X per week (30 min per time) Exercise No Rere Kaufman Note: The [place] [employer] [...] diabetes: ? ? [place] [employer]: www.diabetes.org 9-492-KFRIVHLX ( ) ? ? [place] [employer]-Support group line: www.professional.diabetes.org ? ? [place] Heart Association: www.heart.org or 2-633-LPK-USA-1 ( ) [employer] MyPlate: www.Trakamyplate.gov Have labs drawn Lifestyle No Rere Kaufman [...] on filedocumented in this encounter Care Teams Railway Switch Operator Relationship Specialty [place] [address] [place] [phone] PCP - General Internal Medicine 01/26/22 [place] [address] [place] [phone] PCP - [facility] 02/19/22 [place] [address] [facility] [address] [place] [address] Ophthalmology 04/06/16 Fawn Ramon DPM [address] [place] [address] Podiatry 01/24/21 documented as of this encounter
--- OUTSIDE RECORDS SUMMARY | 2024-04-03 02:25 | XMS_ITS | Encounter Summary ---
Author Organization [facility] Address [address] [facility] [place] [address] Care Team Providers Care Retail Shift Manager Name Role Phone Ricco Andrew MD Unavailable [phone] Fawn Ramon DPM Unavailable [phone] Chris Aden MD Primary Care Provider [phone] Chris Aden MD Unavailable Reason for Visit * Reason Onset Date Comments Imm Inj 02/10/2024 Encounter Details Date Type Department Care Team (Latest Contact Info) Description 02/09/2024 1:15 PM SHOWER DOORS AND PANELS FABRICATOR Clinical Support [facility] - Family Medicine [address] [place] [address] Need for vaccination ; Need for [...] Immunization(s) protocol. See Imm/Injections activity for details. ER DOORS AND PANELS FABRICATOR documented in this encounter Plan of Treatment Upcoming Encounters Date Type Department Care Team (Late st Contact Info) Description 04/07/2024 10:00 AM SHOWER DOORS AND PANELS FABRICATOR Office Visit [facility] [address] [facility] [address] [place] [address] Evelin Blanco APRN-MANAGER [place] [address] [facility] [address] [place] [address] 06/06/2024 2:00 PM CDT Office Visit [facility] [id number] [place] [address] [address] [place] [address] [place] [address] [phone] documented as of this encounter Goals Goal Patient Goal Type Associated Problems Recent Progress Patient-Stated? Author Blood Pressure < 140/90 Blood Pressure 96/68(2023 2:34 PM SHOWER DOORS AND PANELS FABRICATOR) Rere Vargas Note: Caring for Your High [...] Related Tools, and click ? HBP Trackers.? 1-023-QDB-USA-1 or ( ) National Heart, Lung and Blood [place]: http://www.nhlbi.nih.gov/health/infoctr/index.htm Blood Pressure < 140/90 Blood Pressure 96/68(2023 2:34 PM SHOWER DOORS AND PANELS FABRICATOR) Rere Vargas Note: Caring for Your High [...] Related Tools, and click ? HBP Trackers.? 5-136-FOQ-USA-1 or ( ) National Heart, Lung and Blood [place]: http://www.nhlbi.nih.gov/health/infoctr/index.htm Blood Pressure < 140/90 Blood Pressure 96/68(2023 2:34 PM SHOWER DOORS AND PANELS FABRICATOR) Cassie Parks Note: Caring for Your High [...] Related Tools, and click ? HBP Trackers.? 0-524-YMX-USA-1 or ( ) National Heart, Lung and [...] diabetes: ? ? [place] [employer]: www.diabetes.org 5-513-BQIJTOWN ( ) ? ? [place] Diabetes Association-Support group line: www.professional.diabetes.org ? ? [place] Heart Association: www.heart.org or 6-307-NVQ-USA-1 ( ) [employer] ([employer]) MyPlate: www.PopJaxmyplate.gov Have labs drawn Lifestyle Rere Vargas Note: [...] influenza documented in this encounter Care Teams Retail Shift Manager Relationship Specialty [place] [address] [place] [address] PCP - General Internal Medicine 01/26/22 [place] [address] [place] [address] PCP - [facility] 02/19/22 [place] [address] [facility] [address] [place] [address] Ophthalmology 04/06/16 Fawn Ramon DPM [address] [place] [address] Podiatry 01/24/21 documented as of this encounter
--- OUTSIDE RECORDS SUMMARY | 2024-04-03 02:25 | XMS_ITS | Encounter Summary ---
Author Organization [facility] Address [address] [place] [address] Care Team Providers Care Centrifugal Machine Tender Name Role Phone Ricco Andrew MD Unavailable [phone] Fawn Ramon DPM Unavailable [phone] Chris Aden MD Primary Care Provider [phone] Chris Aden MD Unavailable Reason for Visit * Reason Comments Hospital Follow-up Encounter Details Date Type Department Care Team (Latest Contact Info) Description 03/06/2024 2:30 PM WEBSITE/BLOG EDITOR Office Visit [facility] - Family Medicine [id number] [place] [address] Chris Aden MD [address] [place] [phone] Slow transit constipation (Primary Dx); Type [...] current use of insulin, unspecified retinopathy severity ([facility]); Hypertension associated with diabetes ([facility]); Alzheimer's dementia without behavioral disturbance ([facility]) Social History Tobacco Use Types [...] Patient Health Questionnaire-2 Score 2 03/06/2024 [facility] - Occupational Stress [...] any time in the past 12 m [facility], were you homeless or living in a detention (including now)? No 02/24/2024 Sex and Gender Information Value Date Recorded Sex Assigned at Male 01/22/2023 1:45 PM CDT Gender Identity Male 01/22/2023 1:45 PM CDT Sexual Orientation Straight 01/22/2023 1: 45 PM CDT documented as of this encounter Last Filed Vital Signs Vital Sign Reading Time Taken Comments Blood Pressure 96/68 03/06/2024 2:34 PM WEBSITE/BLOG EDITOR Pulse 70 03/06/2024 2:34 PM WEBSITE/BLOG EDITOR Temperature 36.7 ??C (98 ??F) 03/06/2024 2:34 PM WEBSITE/BLOG EDITOR Respiratory Rate 18 03/06/2024 2:34 PM WEBSITE/BLOG EDITOR Oxygen Saturation 96% 03/06/2024 2:34 PM WEBSITE/BLOG EDITOR Inhaled Oxygen Concentration - - Weight - - Height 170.2 cm (5' 7) 03/06/2024 2:34 PM WEBSITE/BLOG EDITOR Body Mass Index - - documented in [...] neuropathy, without long-term current use of insulin ([facility]) E11.40 180 tablet 2 ketoconazole [...] failure Dementia (HCC) Dermatitis DM (diabetes mellitus) ([facility]) HTN (hypertension) Hx of rheumatic [...] diabetes mellitus with diabetic neuropathy, unspecified whether diving instructor insulin use (HCC) Cellulitis of face Dermatitis 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 No follow-ups on file. ITE/BLOG EDITOR * Maria Herrera RMA - 03/06/2024 2:30 [...] for diabetic bilateral retinal imaging through [facility] ITE/BLOG EDITOR documented in this encounter Plan of Treatment Upcoming Encounters Date Type Department Care Team (Late st Contact Info) Description 04/07/2024 10:00 AM WEBSITE/BLOG EDITOR Office Visit [facility] [id number] [place] [address] Evelin Blanco, JOSETTE-OBSTETRICIAN/GYNECOLOGIST [id number] [place] [address] 06/06/2024 2:00 PM CDT Office Visit [facility] [id number] [place] [address] Chris [place] [id number] [place] [phone] documented as of this encounter Goals Goal Patient Goal Type Associated Problems Recent Progress Patient-Stated? Author Blood Pressure < 140/90 Blood Pressure 96/68(2023 2:34 PM WEBSITE/BLOG EDITOR) Rere Vargas Note: Caring for Your High [...] I go for more information? Citizen Of [place] Heart Association National Center: http://www.americanheart.org 1. In the top header, click ? Conditions? . 2. In the top header, click ? high blood pressure.? 3. For a printable blood pressure tracker, scroll toward the bottom of the page to Related Tools, and click ? HBP Trackers.? 2-620-EAM-USA-1 or ( ) National Heart, Lung and Blood [place]: http://www.nhlbi.nih.gov/health/infoctr/index.htm Blood Pressure < 140/90 Blood Pressure 96/68(2023 2:34 PM WEBSITE/BLOG EDITOR) Rere Vargas Note: Caring for Your High [...] I go for more information? Citizen Of [place] Heart Association National Center: http://www.americanheart.org 1. In the top header, click ? Conditions? . 2. In the top header, click ? high blood pressure.? 3. For a printable blood pressure tracker, scroll toward the bottom of the page to Related Tools, and click ? HBP Trackers.? 5-540-SND-USA-1 or ( ) National Heart, Lung and Blood [place]: http://www.nhlbi.nih.gov/health/infoctr/index.htm Blood Pressure < 140/90 Blood Pressure 96/68(2023 2:34 PM WEBSITE/BLOG EDITOR) Cassie Parks Note: Caring for Your High [...] I go for more information? Citizen Of [place] Heart Association National Center: http://www.americanheart.org 1. In the top header, click ? Conditions? . 2. In the top header, click ? high blood pressure.? 3. For a printable blood pressure tracker, scroll toward the bottom of the page to Related Tools, and click ? HBP Trackers.? 5-490-IXM-USA-1 or ( ) National Heart, Lung and Blood [place]: http://www.nhlbi.nih.gov/health/infoctr/index.htm Exercise 5X per week (30 min per time) Exercise No Rere Kaufman Note: The [place] College of Sports Medicine recommends all adults [...] manage your diabetes: ? ? Citizen [place] Diabetes Association: www.diabetes.org 0-972-YJDWEMAE ( ) ? ? Citizen Of [place] Diabetes Association-Support group line: www.professional.diabetes.org ? ? Citizen Of [place] Heart Association: www.heart.org or 3-554-MED-USA-1 ( ) [employer] MyPlate: www.My Hoodmyplate.gov Have labs drawn Lifestyle No Rere Kaufman [...] diabetes mellitus with diabetic neuropathy, unspecified whether diving instructor insulin use (HCC) Cellulitis of face Cellulitis [...] disease documented in this encounter Care Teams Centrifugal Machine Tender Relationship Specialty [place] [address] [place] [phone] PCP - General Internal Medicine 01/26/22 [place] [address] [place] [phone] PCP - [facility] 02/19/22 [place] [address] [phone] Ophthalmology 04/06/16 Fawn Ramon DPM [address] [address] [place] [address] Podiatry 01/24/21 documented as of this encounter
--- OUTSIDE RECORDS SUMMARY | 2024-04-03 02:25 | XMS_ITS | Encounter Summary ---
Author Organization [facility] Address [address] [facility] [place] [address] Care Team Providers Care Associate Director Qa Name Role Phone Ricco Andrew MD Unavailable [phone] Fawn Ramon DPM Unavailable Chris Aden MD Primary Care Provider [phone] Chris Aden MD Unavailable Elham Cummings Unavailable Reason for Visit * Reason Onset Date Comments Outreach Preventive Care 12/13/2023 Encounter Details Date Type Department Care Team (Late st Contact Info) Description 12/13/2023 Patient Outreach [facility] - Care Coordination [address] [place] [phone] Elham Cummings Outreach Preventive Care Social History [...] Confirmation: Patient is actively engaged with an [facility] PCP. Mydisht Enrollment: Already active. Patient engagement and response(s) for due / overdue Health Maintenance items: - Medicare Annual Wellness Visit: - appointment was scheduled for 06/06/24 . Questionnaire was sent/delay send via [employer]. - Immunizations: were discussed with the patient. [...] st Contact Info) Description 04/07/2024 10:00 AM COFFEE SOMMELIER Office Visit [facility] [phone] [place] [address] [address] [place] [address] Evelin Blanco APRN-JOB PRINTER APPRENTICE [id number] [place] [address] [address] [place] [address] 06/06/2024 2:00 PM CDT Office Visit [facility] [phone] [place] [address] [address] [place] [address] [place] [address] [place] [phone] documented as of this encounter Goals Goal Patient Goal Type Associated Problems Recent Progress Patient-Stated? Author Blood Pressure < 140/90 Blood Pressure 96/68(2023 2:34 PM COFFEE SOMMELIER) Rere Vargas Note: Caring for Your High [...] Where can I go for more information? [place] Heart Association National Center: http://www.americanheart.org 1. In the top header, click ? Conditions? . 2. In the top header, click ? high blood pressure.? 3. For a printable blood pressure tracker, scroll toward the bottom of the page to Related Tools, and click ? HBP Trackers.? 3-488-TGV-USA-1 or ( ) National Heart, Lung and Blood [place]: http://www.nhlbi.nih.gov/health/infoctr/index.htm Blood Pressure < 140/90 Blood Pressure 96/68(2023 2:34 PM COFFEE SOMMELIER) Rere Vargas Note: Caring for Your High [...] Where can I go for more information? [place] Heart Association National Center: http://www.americanheart.org 1. In the top header, click ? Conditions? . 2. In the top header, click ? high blood pressure.? 3. For a printable blood pressure tracker, scroll toward the bottom of the page to Related Tools, and click ? HBP Trackers.? 5-943-VUO-USA-1 or ( ) National Heart, Lung and Blood [place]: http://www.nhlbi.nih.gov/health/infoctr/index.htm Blood Pressure < 140/90 Blood Pressure 96/68(2023 2:34 PM COFFEE SOMMELIER) Cassie Parks Note: Caring for Your High [...] Where can I go for more information? [place] Heart Association National Center: http://www.americanheart.org 1. In the top header, click ? Conditions? . 2. In the top header, click ? high blood pressure.? 3. For a printable blood pressure tracker, scroll toward the bottom of the page to Related Tools, and click ? HBP Trackers.? 8-419-BOV-USA-1 or ( ) National Heart, Lung and Blood [place]: http://www.nhlbi.nih.gov/health/infoctr/index.htm Exercise 5X per week (30 min per time) Exercise Rere Vargas Note: The [place] College of Sports Medicine recommends all adults [...] how to manage your diabetes: ? ? [place] Diabetes Association: www.diabetes.org 8-107-YQDUSSIP ( ) ? ? [place] Diabetes Association-Support group line: www.professional.diabetes.org ? ? [place] Heart Association: www.heart.org or 7-536-MVR-USA-1 ( ) [employer] MyPlate: www.choosemyplate.gov Have labs drawn Lifestyle No [...] on filedocumented in this encounter Care Teams Associate Director Qa Relationship Specialty [place] [address] [place] [address] PCP - General Internal Medicine 01/26/22 [place] [address] [place] [address] PCP - [facility] 02/19/22 [place] [address] [facility] [address] [place] [phone] Ophthalmology 04/06/16 Fawn Ramon [place] [address] [place], [place] [phone] Podiatry 01/24/21 Ehlam Cummings 12/13/23 12/13/23 documented as of this encounter
--- OUTSIDE RECORDS SUMMARY | 2024-04-03 02:26 | XMS_ITS | Encounter Summary ---
Author Organization [facility] Address [address] [facility] [address] Care Team Providers Care Slide Forming Machine Operator Name Role Phone Ricco Andrew MD Unavailable [phone] Fawn Ramon DPM Unavailable [phone] Chris Aedn MD Primary Care Provider [phone] Chris Aden MD Unavailable Encounter Details Date Type Department Care Team (Late st Contact Info) Description 04/15/2022 Home Care Visit [facility] [address] [place] [address] Elizabeth Umana, RN SN NON [...] TO HOME, WAS MET BY PT FROM [facility] WHO IS ALSO OUT TO SEE THE PATIENT TODAY. [facility] PT REPORTS HE WAS ADMITTED OT THEIR SERVICES ON 04/12/22. PATIENT WILL NOT BE ADMITTED TO [facility] THIS WOULD BE A DUPLICATION OF SERVICES AND UNPAID BY INSURANCE. ET DIRECTOR documented in this encounter Plan of Treatment Upcoming Encounters Date Type Department Care Team (Late st Contact Info) Description 04/07/2024 10:00 AM MARKET DIRECTOR Office Visit [facility] [phone] [place] [address] [address] [place] [address] Evelin Blanco APRN-DENIS [address] [address] 06/06/2024 2:00 PM CDT Office Visit [facility] [phone] [place] [address] [place] [address] [phone] documented as of this encounter Goals Goal Patient Goal Type Associated Problems Recent Progress Patient-Stated? Author Blood Pressure < 140/90 Blood Pressure 96/68(2023 2:34 PM MARKET DIRECTOR) Rere Vargas Note: Caring for Your [...] Related Tools, and click ? HBP Trackers.? 0-187-YPO-USA-1 or ( ) National Heart, Lung and Blood [place]: http://www.nhlbi.nih.gov/health/infoctr/index.htm Blood Pressure < 140/90 Blood Pressure 96/68(2023 2:34 PM MARKET DIRECTOR) Rere Vargas Note: Caring for Your [...] Related Tools, and click ? HBP Trackers.? 4-670-OIC-USA-1 or ( ) National Heart, Lung and Blood [place]: http://www.nhlbi.nih.gov/health/infoctr/index.htm Blood Pressure < 140/90 Blood Pressure 96/68(2023 2:34 PM MARKET DIRECTOR) Filomena Parks Note: Caring for Your High [...] Related Tools, and click ? HBP Trackers.? 4-708-WLU-USA-1 or ( ) National Heart, Lung and Blood [place]: http://www.nhlbi.nih.gov/health/infoctr/index.htm Exercise 5X per week (30 min [...] diabetes: ? ? [place] Diabetes Association: www.diabetes.org 9-162-ACIDBFYN ( ) ? ? [place] Diabetes Association-Support group line: www.professional.diabetes.org ? ? [place] Heart Association: www.heart.org or 7-499-IUZ-USA-1 ( ) [employer] MyPlate: www.Ozmo Devicesmyplate.gov Have labs drawn Lifestyle No Rere Kaufman [...] on filedocumented in this encounter Care Teams Slide Forming Machine Operator Relationship Specialty [place] [address] [place] [address] PCP - General Internal Medicine 01/26/22 [place] [address] [place] [address] PCP - [facility] 02/19/22 [place] [address] [facility] [address] [place] [address] Ophthalmology 04/06/16 Fawn Ramon DPM [address] [place] [address] Podiatry 01/24/21 documented as of this encounter
--- OUTSIDE RECORDS SUMMARY | 2024-04-03 02:26 | XMS_ITS | Encounter Summary ---
Author Organization [facility] Address [address] [place] [address] Care Team Providers Care Bead Wire Taper Name Role Phone Ricco Andrew MD Unavailable [phone] Fawn Ramon DPM Unavailable [phone] Chris Aden MD Primary Care Provider [phone] Chris Aden MD Unavailable Reason for Visit * Reason Comments Refill Request Encounter Details Date Type Department Care Team (Late Contact Info) Description 05/12/2022 Refill [facility] - Family Medicine [address] [place] [address] Chris Aden MD [address] [place] [address] Refill Request Social History Tobacco Use [...] st Contact Info) Description 04/07/2024 10:00 AM RFID DEVELOPER Office Visit [facility] [address] [facility] [address] [place] [address] Evelin Blanco APRN-CNP [address] [facility] [address] [place], [place] [phone] 06/06/2024 2:00 PM CDT Office Visit [facility] [address] [facility] [address] [place] [address] [place] [address] [facility] [address] [place] [address] documented as of this encounter Goals Goal Patient Goal Type Associated Problems Recent Progress Patient-Stated? Author Blood Pressure < 140/90 Blood Pressure 96/68(2023 2:34 PM RFID DEVELOPER) Rere Vargas Note: Caring for Your [...] Where can I go for more information? [place] Heart Association National Center: http://www.americanheart.org 1. In the top header, click ? Conditions? . 2. In the top header, click ? high blood pressure.? 3. For a printable blood pressure tracker, scroll toward the bottom of the page to Related Tools, and click ? HBP Trackers.? 1-025-IWV-USA-1 or ( ) National Heart, Lung and Blood [place]: http://www.nhlbi.nih.gov/health/infoctr/index.htm Blood Pressure < 140/90 Blood Pressure 96/68(2023 2:34 PM RFID DEVELOPER) Rere Vargas Note: Caring for Your [...] Where can I go for more information? [place] Heart Association National Center: http://www.americanheart.org 1. In the top header, click ? Conditions? . 2. In the top header, click ? high blood pressure.? 3. For a printable blood pressure tracker, scroll toward the bottom of the page to Related Tools, and click ? HBP Trackers.? 1-441-FDR-USA-1 or ( ) National Heart, Lung and Blood [place]: http://www.nhlbi.nih.gov/health/infoctr/index.htm Blood Pressure < 140/90 Blood Pressure 96/68(2023 2:34 PM RFID DEVELOPER) Cassie Parks Note: Caring for Your [...] Where can I go for more information? [place] Heart Association National Center: http://www.americanheart.org 1. In the top header, click ? Conditions? . 2. In the top header, click ? high blood pressure.? 3. For a printable blood pressure tracker, scroll toward the bottom of the page to Related Tools, and click ? HBP Trackers.? 4-609-IKA-USA-1 or ( ) National Heart, Lung and Blood [place]: http://www.nhlbi.nih.gov/health/infoctr/index.htm Exercise 5X per week (30 min per time) Exercise Rere Vargas Note: The [place] College of Sports Medicine recommends all [...] how to manage your diabetes: ? ? [place] Diabetes Association: www.diabetes.org 0-515-XNOCBBPX ( ) ? ? [place] Diabetes Association-Support group line: www.professional.diabetes.org ? ? [place] Heart Association: www.heart.org or 5-938-CNT-USA-1 ( ) [employer] MyPlate: www.Actixmyplate.gov Have labs drawn Lifestyle No Rere Kaufman [...] on filedocumented in this encounter Care Teams Bead Wire Taper Relationship Specialty [place] [address] [place] [address] PCP - General Internal Medicine 01/26/22 [place] [address] [place] [address] PCP - [facility] 02/19/22 [place] [address] [facility] [address] [place] [phone] Ophthalmology 04/06/16 [place] [address] [address] [place] [address] Podiatry 01/24/21 documented as of this encounter
--- OUTSIDE RECORDS SUMMARY | 2024-04-03 02:26 | XMS_ITS | Encounter Summary ---
Author Organization [facility] Address [address] [place] [address] Care Team Providers Care Farm General Manager Name Role Phone Ricco Andrew MD Unavailable [phone] Fawn Ramon DPM Unavailable [phone] Chris Aden MD Primary Care Provider [phone] Chris Aden MD Unavailable Reason for Visit * Reason Comments Refill Request Encounter Details Date Type Department Care Team (Late st Contact Info) Description 01/17/2023 Refill [facility] - Family Medicine [address] [place] [address] Chris Aden MD [address] [place] [address] Refill Request Social History Tobacco Use [...] st Contact Info) Description 04/07/2024 10:00 AM ROLLER INSPECTOR AND MENDER Office Visit [facility] [address] [facility] [address] [place], [place] [phone] Evelin Blanco APRN-CNP [address] [address] 06/06/2024 2:00 PM CDT Office Visit [facility] [phone] [place] [address] [address] [place] [address] Chris Aden MD [id number] [place] [phone] documented as of this encounter Goals Goal Patient Goal Type Associated Problems Recent Progress Patient-Stated? Author Blood Pressure < 140/90 Blood Pressure 96/68(2023 2:34 PM ROLLER INSPECTOR AND MENDER) Rere Vargas Note: Caring for Your [...] Related Tools, and click ? HBP Trackers.? 6-444-DCE-USA-1 or ( ) National Heart, Lung and Blood [place]: http://www.nhlbi.nih.gov/health/infoctr/index.htm Blood Pressure < 140/90 Blood Pressure 96/68(2023 2:34 PM ROLLER INSPECTOR AND MENDER) Rere Vargas Note: Caring for Your [...] Related Tools, and click ? HBP Trackers.? 7-170-SWQ-USA-1 or ( ) National Heart, Lung and Blood [place]: http://www.nhlbi.nih.gov/health/infoctr/index.htm Blood Pressure < 140/90 Blood Pressure 96/68(2023 2:34 PM ROLLER INSPECTOR AND MENDER) Cassie Parks Note: Caring for Your [...] Related Tools, and click ? HBP Trackers.? 4-265-YXC-USA-1 or ( ) National Heart, Lung and Blood [place]: http://www.nhlbi.nih.gov/health/infoctr/index.htm Exercise 5X per week (30 min [...] diabetes: ? ? [place] Diabetes Association: www.diabetes.org 3-919-APVTYFUM ( ) ? ? [place] Diabetes Association-Support group line: www.professional.diabetes.org ? ? [place] Heart Association: www.heart.org or 0-644-BXL-USA-1 ( ) [employer] MyPlate: www.Zhilian Zhaopinmyplate.gov Have labs drawn Lifestyle Rere Vargas Note: [...] filedocumented in this encounter Care Teams Farm General Manager Relationship Specialty [place] [address] [place] [address] PCP - General Internal Medicine 01/26/22 [place] [address] [place] [address] PCP - [facility] 02/19/22 [place] [address] [facility] [address] [place] [address] Ophthalmology 04/06/16 Fawn Ramon [place]PM [address] [place] [address] Podiatry 01/24/21 documented as of this encounter
--- OUTSIDE RECORDS SUMMARY | 2024-04-03 02:26 | XMS_ITS | Encounter Summary ---
Author Organization [facility] Address [address] [facility] [place] [address] Care Team Providers Care Jigger Operator Name Role Phone Ricco Andrew MD Unavailable [phone] Fawn Ramon DPM Unavailable [phone] Chris Aden MD Primary Care Provider [phone] Chris Aden MD Unavailable Reason for Visit * Reason Comments Follow-up Encounter Details Date Type Department Care Team (Late st Contact Info) Description 10/27/2022 1:15 PM CDT Office Visit [facility] - Family Medicine [id number] [address] Chris Aden MD [address] [place] [address] Type 2 diabetes mellitus with diabetic neuropathy, without long-term current use of insulin (HCC) (Primary Dx); Type 2 diabetes mellitus with stage 3 chronic kidney disease, without long-term current use of insulin, unspecified whether stage 3a or 3b CKD (HCC); 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 Type 2 diabetes mellitus with stage 3 chronic kidney disease, without long- term current use of insulin, unspecified whether stage 3a or 3b CKD (CMS/HCC) ??? 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 Hypothyroidism, adult ??? Vitamin D deficiency [...] st Contact Info) Description 04/07/2024 10:00 AM BOAT FUELER Office Visit [facility] [address] [facility] [address] [place] [address] Evelin Blanco APRN-DENIS [address] [facility] [address] [place] [address] 06/06/2024 2:00 PM CDT Office Visit [facility] [address] [facility] [address] [place] [address] [place] [address] [facility] [address] [place] [address] documented as of this encounter Goals Goal Patient Goal Type Associated Problems Recent Progress Patient-Stated? Author Blood Pressure < 140/90 Blood Pressure 96/68(2023 2:34 PM BOAT FUELER) Rere Vargas Note: Caring for Your High [...] Related Tools, and click ? HBP Trackers.? 6-209-DBU-USA-1 or ( ) National Heart, Lung and Blood [place]: http://www.nhlbi.nih.gov/health/infoctr/index.htm Blood Pressure < 140/90 Blood Pressure 96/68(2023 2:34 PM BOAT FUELER) Rere Vargas Note: Caring for Your High [...] Related Tools, and click ? HBP Trackers.? 5-128-ISG-USA- or ( ) National Heart, Lung and Blood [place]: http://www.nhlbi.nih.gov/health/infoctr/index.htm Blood Pressure < 140/90 Blood Pressure 96/68(2023 2:34 PM BOAT FUELER) Cassie Parks Note: Caring for Your High [...] Related Tools, and click ? HBP Trackers.? 5-862-HOZ-USA- or ( ) National Heart, Lung and Blood [place]: http://www.nhlbi.nih.gov/health/infoctr/index.htm Exercise 5X per week (30 min [...] diabetes: ? ? [place] Diabetes Association: www.diabetes.org 9-297-KDQGBODO ( ) ? ? [place] Diabetes Association-Support group line: www.professional.diabetes.org ? ? [place]ym[place] Heart Association: www.heart.org or 8-360-KEX-USA-1 ( ) Amimon MyPlate: www.Tradamyplate.gov Have labs drawn Lifestyle Rere Vargas Note: [...] Results * TSH (10/27/2022 3:02 PM CDT) [facility] TSH 3.0892 0.35 - 4.94 uIU/mL [facility] ACCOUNT BILL Comment:FASTING Blood BLOOD SPECIMEN / Unknown 10/27/2022 3:02 PM CDT 10/27/2022 Narrative Resulting Agency Comment Lab Testing performed at: [place] [address] [address] ?? [place] [id number] Chris Aden MD LAB - CHEMISTRY MELYSSA CHAHAL Performing Organization Address [facility] de Phone Number [facility] ACCOUNT BILL [address] [place] [address] * VITAMIN D 25-HYDROXY (10/27/2022 3:02 PM CDT) [facility] Vitamin D, 25 Hydroxy 32.9 30 - 80 ng/mL [facility] ACCOUNT BILL Comment: Vitamin D Status: ?Deficiency ? <20 ? ng/mL ?Insufficiency ?? 20-30 ??ng/mL ?Sufficiency ? 30-100 ng/mL ?Toxicity ? >100 ?ng/mL FASTING Blood BLOOD SPECIMEN / Unknown 10/27/2022 3:02 PM CDT 10/27/2022 Narrative Resulting Agency Comment Lab Testing performed at: [facility] [address] ?? [place] [id number] Chris Aden MD LAB - CHEMISTRY ORDE RABLES [facility] ACCOUNT BILL [address] [place] [address] * MICROALB/CREAT RATIO URINE RANDOM PANEL (10/27/2022 3:02 PM CDT) Creatinine Urine 95.37 mg/dL [facility] ACCOUNT BILL Microalbumin Urine 0.6 mg/dL [facility] ACCOUNT BILL Microalbumin/Crea tinine Ratio 6 <30 mg/g [facility] ACCOUNT BILL Comment:FASTING Urine URINE SPECIMEN OBTAINED BY CLEAN CATCH PROCEDURE / Unknown 10/27/2022 3:02 PM CDT 10/27/2022 Narrative Resulting Agency Comment Lab Testing performed at: [facility] [address] ?? [place] [id number] Chris Aden MD LAB - URINE CHEMISTR Y ORDERABLES Performing Organization Address City/[facility]/ZIP Co de Phone Number [facility] ACCOUNT BILL [address] [place] [address] * (ABNORMAL) HEMOGLOBIN A1C W EAG (10/27/2022 [...] or women. ??Falsely low HbA The [facility] Clerk assay for the measurement of HbA1c is a National Glycohemoglobin Standardization Program (NGSP) certified method. FASTING Blood BLOOD SPECIMEN / Unknown 10/27/2022 3:02 PM CDT 10/27/2022 Narrative Resulting Agency Comment Lab Testing performed at: [facility] [address] ?? [place] [id number] Chris Aden MD LAB - CHEMISTRY MELYSSA CHAHAL [facility] ACCOUNT BILL [address] [place] [address] * CBC W/O DIFFERENTIAL (10/27/2022 3:02 PM [...] [facility] ACCOUNT BILL Comment: MPV FL BLOOD ([facility]) ? 11.2 ? fl ? 9.4-12.9 FASTING Blood BLOOD SPECIMEN / Unknown 10/27/2022 3:02 PM CDT 10/27/2022 Narrative Resulting Agency Comment Lab Testing performed at: [facility] [place] [address] [address] ?? [place] [id number] Chris Aden MD LAB - HEMATOLOGY KWAME ONEILL [facility] ACCOUNT BILL [address] [place] [address] * (ABNORMAL) COMPREHENSIVE METABOLIC PANEL (10/27/2022 3:02 [...] Resulting Agency Comment Lab Testing performed at: [address] ?? [facility] [id number] Chris Aden MD LAB - CHEMISTRY MELYSSA CHAHAL [facility] ACCOUNT BILL [address] [place] [address] * LIPID PROFILE W TCHOL/HDL (10/27/2022 3:02 PM CDT) Cholesterol 156 <200 mg/dL [facility] ACCOUNT BILL Triglycerides 86 <150 mg/dL [facility] ACCOUNT BILL HDL Cholesterol 53 >40 mg/dL [facility] ACCOUNT BILL VLDL Calculated 17 <=30 mg/dL [facility] ACCOUNT BILL LDL Calculated 86 <130 mg/dL [facility] ACCOUNT BILL Comment:LDL/HDL RATIO BLOOD ([facility]) 1.6 <5.0 Cholesterol/HDL Ratio 2.9 <4.5 [facility] ACCOUNT BILL Comment:FASTING Blood BLOOD SPECIMEN / Unknown 10/27/2022 3:02 PM CDT 10/27/2022 Narrative Resulting Agency Comment Lab Testing performed at: [facility] [address] ?? [place] [id number] Chris Aden MD LAB - CHEMISTRY MELYSSA CHAHAL [facility] Organization Address City/State/ZIP Co de Phone Number [facility] ACCOUNT BILL [address] [place] [address] documented in this encounter Visit Diagnoses Diagnosis [...] facility documented in this encounter Care Teams Jigger Operator Relationship Specialty [place] [address] [place] [address] PCP - General Internal Medicine 01/26/22 [place] [address] [place] [phone] PCP - Attributed-[facility] 02/19/22 [place] [address] [facility] [address] [place] [address] Ophthalmology 04/06/16 Fawn Ramon DPM [address] [address] [place], [place] [phone] Podiatry 01/24/21 documented as of this encounter
--- OUTSIDE RECORDS SUMMARY | 2024-04-03 02:26 | XMS_ITS | Encounter Summary ---
Author Organization [facility] Address [address] [place] [address] Care Team Providers Care Extrusion Die Template Maker Name Role Phone Ricco Andrew MD Unavailable [phone] Rosana Solo MD Unavailable [phone] Fawn Ramon [facility] Unavailable [phone] Reason for Visit * Reason Comments Refill Request Encounter Details Date Type Department Care Team (Late st Contact Info) Description 01/25/2021 Refill [facility] - Family Medicine [address] [place] [address] Rosana Solo MD [facility] [facility] [address] [place] [address] Refill Request Social History Tobacco [...] TAKE 1 TABLET BY MOUTH EVERY DAY RVISING EDITOR NEWS REEL documented in this encounter Plan of Treatment Upcoming Encounters Date Type Department Care Team (Late st Contact Info) Description 04/07/2024 10:00 AM SUPERVISING EDITOR NEWS REEL Office Visit [facility] [address] [place] [address] [phone] Evelin Blanco, NUCLEAR FUELS RESEARCH ENGINEER-AUTOMOBILE TESTER [address] [place] [address] 06/06/2024 2:00 PM CDT Office Visit [facility] [address] [place] [address] [phone] [place] [phone] [place] [phone] documented as of this encounter Goals Goal Patient Goal Type Associated Problems Recent Progress Patient-Stated? Author Blood Pressure < 140/90 Blood Pressure 96/68(2023 2:34 PM SUPERVISING EDITOR NEWS REEL) Rere Vargas Note: Caring for Your High [...] Related Tools, and click ? HBP Trackers.? 8-235-MKX-USA-1 or ( ) National Heart, Lung and Blood [place]: http://www.nhlbi.nih.gov/health/infoctr/index.htm Blood Pressure < 140/90 Blood Pressure 96/68(2023 2:34 PM SUPERVISING EDITOR NEWS REEL) Rere Vargas Note: Caring for Your High [...] Related Tools, and click ? HBP Trackers.? 5-251-WSR-USA-1 or ( ) National Heart, Lung and Blood [place]: http://www.nhlbi.nih.gov/health/infoctr/index.htm Blood Pressure < 140/90 Blood Pressure 96/68(2023 2:34 PM SUPERVISING EDITOR NEWS REEL) Cassie Parks Note: Caring for Your High [...] Related Tools, and click ? HBP Trackers.? 1-790-UPK-USA-1 or ( ) National Heart, Lung and Blood [place]: http://www.nhlbi.nih.gov/health/infoctr/index.htm Exercise 5X per week (30 min [...] ? ? [place] Diabetes Association: www.diabetes.org 4-621-DMBBJKDG ( ) ? ? [place] Diabetes Association-Support group line: www.professional.diabetes.org ? ? [place] Heart Association: www.heart.org or 2-237-XEL-USA-1 ( ) Hypercontext MyPlate: www.Gift Pinpointmyplate.gov Have labs drawn Lifestyle No Rere Kaufman [...] on filedocumented in this encounter Care Teams Extrusion Die Template Maker Relationship Specialty Start Date End Date Rosana Solo MD [address] [facility] [address] [place] [address] PCP - Attributed-[facility] 02/19/19 [place] [address] [facility] [address] [place] [address] Ophthalmology 04/06/16 Fawn Ram[place] [address] [place] [address] Podiatry 01/24/21 documented as of this encounter
--- OUTSIDE RECORDS SUMMARY | 2024-04-03 02:26 | XMS_ITS | Encounter Summary ---
Author Organization [facility] Address [address] [facility] [place] [address] Care Team Providers Care Fruit And Vegetable Parer Name Role Phone Ricco Andrew MD Unavailable [phone] Fawn Ramon DPM Unavailable [phone] Chris Aden MD Primary Care Provider [phone] Chris Aden MD Unavailable Reason for Visit * Reason Onset Date Comments Home Health 04/07/2022 Encounter Details Date Type Department Care Team (Late st Contact Info) Description 04/07/2022 Telephone [facility] - Family Medicine [id number] [place] [address] Chris Aden MD [id number] [place] [address] Home Health Social History Tobacco Use [...] Mayi for face to face appt. 04/09/22. SUPERVISOR * Telephone Encounter - Freya Dennis MA - 04/07/2022 8:19 AM CST Terrance FOSTER would like to know will PCP follow pt for home care? SUPERVISOR documented in this encounter Plan of Treatment Upcoming Encounters Date Type Department Care Team (Late st Contact Info) Description 04/07/2024 10:00 AM RATE SUPERVISOR Office Visit [facility] [address] [place] [address] Evelin Blanco APRN-SUPERVISOR PERSONNEL CLERKS [address] [address] 06/06/2024 2:00 PM CDT Office Visit [facility] [address] [place] [address] [phone] [place] [address] [phone] documented as of this encounter Goals Goal Patient Goal Type Associated Problems Recent Progress Patient-Stated? Author Blood Pressure < 140/90 Blood Pressure 96/68(2023 2:34 PM RATE SUPERVISOR) Rere Vargas Note: Caring for Your [...] Related Tools, and click ? HBP Trackers.? 8-932-XRD-USA-1 or ( ) National Heart, Lung and Blood [place]: http://www.nhlbi.nih.gov/health/infoctr/index.htm Blood Pressure < 140/90 Blood Pressure 96/68(2023 2:34 PM RATE SUPERVISOR) Rere Vargas Note: Caring for Your [...] Related Tools, and click ? HBP Trackers.? 2-709-PFW-USA-1 or ( ) National Heart, Lung and Blood [place]: http://www.nhlbi.nih.gov/health/infoctr/index.htm Blood Pressure < 140/90 Blood Pressure 96/68(2023 2:34 PM RATE SUPERVISOR) Cassie Parks Note: Caring for Your [...] Related Tools, and click ? HBP Trackers.? 1-753-ZIO-USA-1 or ( ) National Heart, Lung and Blood [place]: http://www.nhlbi.nih.gov/health/infoctr/index.htm Exercise 5X per week (30 min per time) Exercise Rere Vargas Note: The [place] College of Sports Medicine [...] diabetes: ? ? [place] Diabetes Association: www.diabetes.org 8-312-BELCLRBC ( ) ? ? [place] Diabetes Association-Support group line: www.professional.diabetes.org ? ? [place] Heart Association: www.heart.org or 4-477-XYG-USA-1 ( ) Dep-Xplora MyPlate: www.Hingemyplate.gov Have labs drawn Lifestyle Rere Vargas Note: [...] on filedocumented in this encounter Care Teams Fruit And Vegetable Parer Relationship Specialty [place] [address] [address] [place] [phone] PCP - General Internal Medicine 01/26/22 [place] [address] [address] [place] [address] PCP - Attributed-[facility] [place] 02/19/22 [place] [address] [facility] [address] [facility] [address] [place] [address] Ophthalmology 04/06/16 Fawn Ramon [place] [address] [address] [facility] [address] [place] [address] Podiatry 01/24/21 documented as of this encounter
--- OUTSIDE RECORDS SUMMARY | 2024-04-03 02:26 | XMS_ITS | Encounter Summary ---
Author Organization [facility] Address [address] [place] [address] Care Team Providers Care Expanded Function Dental Assistant Name Role Phone Ricco Andrew MD Unavailable [phone] Fawn Ramon DPM Unavailable [phone] Chris Aden MD Primary Care Provider [phone] Chris Aden MD Unavailable Reason for Visit * Reason Onset Date Comments UTI 07/27/2022 Encounter Details Date Type Department Care Team (Late st Contact Info) Description 07/27/2022 Telephone [facility] - Family Medicine [id number] [place] [address] [place] [address] Chris Aden MD [address] [place] [address] UTI Social History Tobacco Use Types [...] Patient's daughter agrees to take patient to [facility] in [place], and will call and update office. documented in this encounter Plan of Treatment Upcoming Encounters Date Type Department Care Team (Late st Contact Info) Description 04/07/2024 10:00 AM ACCESS CONTROL OFFICER Office Visit [facility] [id number] [place] [address] [address] [place] [address] Evelin Blanco APRN-DENIS [address] [facility] [address] [place] [address] 06/06/2024 2:00 PM CDT Office Visit [facility] [address] [place] [address] [address] [place] [address] [place] [address] [place] [address] documented as of this encounter Goals Goal Patient Goal Type Associated Problems Recent Progress Patient-Stated? Author Blood Pressure < 140/90 Blood Pressure 96/68(2023 2:34 PM ACCESS CONTROL OFFICER) Rere Vargas Note: Caring for Your [...] Where can I go for more information? [place] Heart Association National Center: http://www.americanheart.org 1. In the top header, click ? Conditions? . 2. In the top header, click ? high blood pressure.? 3. For a printable blood pressure tracker, scroll toward the bottom of the page to Related Tools, and click ? HBP Trackers.? 3-460-YOK-USA-1 or ( ) National Heart, Lung and Blood [place]: http://www.nhlbi.nih.gov/health/infoctr/index.htm Blood Pressure < 140/90 Blood Pressure 96/68(2023 2:34 PM ACCESS CONTROL OFFICER) Rere Vargas Note: Caring for Your [...] Where can I go for more information? [place]istan[place] Heart Association National Center: http://www.americanheart.org 1. In the top header, click ? Conditions? . 2. In the top header, click ? high blood pressure.? 3. For a printable blood pressure tracker, scroll toward the bottom of the page to Related Tools, and click ? HBP Trackers.? 4-817-KZI-USA-1 or ( ) National Heart, Lung and Blood [place]: http://www.nhlbi.nih.gov/health/infoctr/index.htm Blood Pressure < 140/90 Blood Pressure 96/68(2023 2:34 PM ACCESS CONTROL OFFICER) No Cassie Marie Note: Caring for Your [...] Where can I go for more information? [place]istan[place] Heart Association National Center: http://www.americanheart.org 1. In the top header, click ? Conditions? . 2. In the top header, click ? high blood pressure.? 3. For a printable blood pressure tracker, scroll toward the bottom of the page to Related Tools, and click ? HBP Trackers.? 5-188-ZJX-USA-1 or ( ) National Heart, Lung and Blood [place]: http://www.nhlbi.nih.gov/health/infoctr/index.htm Exercise 5X per week (30 min per time) Exercise Rere Vargas Note: The [place] College of Sports Medicine recommends all adults [...] how to manage your diabetes: ? ? [place] Diabetes Association: www.diabetes.org 0-235-XIYBIQCV ( ) ? ? [place]istan[place] Diabetes Association-Support group line: www.professional.diabetes.org ? ? [place] Heart Association: www.heart.org or 5-763-MZV-USA-1 ( ) Logi-Serve MyPlate: www.Tasty Labsmyplate.gov Have labs drawn Lifestyle No Rohan Kaufmanina [...] on filedocumented in this encounter Care Teams Expanded Function Dental Assistant Relationship Specialty [place] [address] [address] [place] [address] PCP - General Internal Medicine 01/26/22 [place] [address] [address] [place] [address] PCP - [facility] 02/19/22 [place] [address] [facility] [address] [place] [address] Ophthalmology 04/06/16 Fawn Ramon DPM [address] [address] [place] [address] Podiatry 01/24/21 documented as of this encounter
--- OUTSIDE RECORDS SUMMARY | 2024-04-03 02:26 | XMS_ITS | Encounter Summary ---
Author Organization [facility] Address [address] [facility] [place] [address] Care Team Providers Care Kettle Firer Name Role Phone Ricco Andrew MD Unavailable [phone] Fawn Ramon DPM Unavailable [phone] Chris Aden MD Primary Care Provider [phone] Chris Aden MD Unavailable Reason for Visit * Reason Onset Date Comments Referral 05/18/2022 Encounter Details Date Type Department Care Team (Late st Contact Info) Description 05/18/2022 Telephone [facility] - Family Medicine [id number] [place] [address] Chris [place]en [place] [id number] [place] [address] Referral Social History Tobacco Use Types [...] from the original note were not included. TERIA COOK * Telephone Encounter - Mainor Bone - 05/18/2022 8:41 AM CST Mk Sanches is in need of an insurance referral for : Diagnosis Code or reason being Seen: R56.00 Date of Scheduled Appt- 05/20/22 Specialist Name- DR Esteban Camp Specialist Phone Number- [phone] Specialist Fax Number- [phone] Specialist Address- [address], [address], [address] Specialist NPI or Tax ID- [id number] NPI Insurance & Member ID- U[employer] Medicare PCP- Chris Aden MD Person calling for the referral- Elke TERIA COOK documented in this encounter Plan of Treatment Upcoming Encounters Date Type Department Care Team (Late st Contact Info) Description 04/07/2024 10:00 AM CAFETERIA COOK Office Visit [address] [place] [address] Evelin Blanco, PULVERIZING AND SIFTING OPERATOR-EQUIP TECH [address] [facility] [address] [place] [address] 06/06/2024 2:00 PM CDT Office Visit [facility] [phone] [place] [address] [address] [place] [address] Chris Aden MD [address] [place] [address] documented as of this encounter Goals Goal Patient Goal Type Associated Problems Recent Progress Patient-Stated? Author Blood Pressure < 140/90 Blood Pressure 96/68(2023 2:34 PM CAFETERIA COOK) Rere Vargas Note: Caring for Your High [...] Where can I go for more information? [place] Heart Association National Center: http://www.americanheart.org 1. In the top header, click ? Conditions? . 2. In the top header, click ? high blood pressure.? 3. For a printable blood pressure tracker, scroll toward the bottom of the page to Related Tools, and click ? HBP Trackers.? 9-613-HSP-USA-1 or ( ) National Heart, Lung and Blood [place]: http://www.nhlbi.nih.gov/health/infoctr/index.htm Blood Pressure < 140/90 Blood Pressure 96/68(2023 2:34 PM CAFETERIA COOK) Rere Vargas Note: Caring for Your High [...] Where can I go for more information? [place] Heart Association National Center: http://www.americanheart.org 1. In the top header, click ? Conditions? . 2. In the top header, click ? high blood pressure.? 3. For a printable blood pressure tracker, scroll toward the bottom of the page to Related Tools, and click ? HBP Trackers.? 8-675-RAQ-USA-1 or ( ) National Heart, Lung and Blood [place]: http://www.nhlbi.nih.gov/health/infoctr/index.htm Blood Pressure < 140/90 Blood Pressure 96/68(2023 2:34 PM CAFETERIA COOK) Cassie Parks Note: Caring for Your High [...] Where can I go for more information? [place] Heart Association National Center: http://www.americanheart.org 1. In the top header, click ? Conditions? . 2. In the top header, click ? high blood pressure.? 3. For a printable blood pressure tracker, scroll toward the bottom of the page to Related Tools, and click ? HBP Trackers.? 9-627-RJB-USA-1 or ( ) National Heart, Lung and Blood [place]: http://www.nhlbi.nih.gov/health/infoctr/index.htm Exercise 5X per week (30 min per time) Exercise No Rere Kaufman Note: The [place] College of Sports Medicine recommends all adults [...] how to manage your diabetes: ? ? [place] Diabetes Association: www.diabetes.org 2-812-WHYWGKCR ( ) ? ? [place] Diabetes Association-Support group line: www.professional.diabetes.org ? ? [place] Heart Association: www.heart.org or 4-204-RCM-USA-1 ( ) Rent Here MyPlate: www.SoloHealthmyplate.gov Have labs drawn Lifestyle No Rere Kaufman [...] on filedocumented in this encounter Care Teams Kettle Firer Relationship Specialty [place] [address] [place] [address] PCP - General Internal Medicine 01/26/22 [place] [address] [place] [address] PCP - [facility] 02/19/22 [place] [address] [facility] [address] [place] [phone] Ophthalmology 04/06/16 Fawn Ramon DPM [address] [place] [address] Podiatry 01/24/21 documented as of this encounter
--- OUTSIDE RECORDS SUMMARY | 2024-04-03 02:26 | XMS_ITS | Encounter Summary ---
Author Organization [facility] Address [address] [facility] [place] [address] Care Team Providers Care Head Concierge Name Role Phone Ricco Andrew MD Unavailable [phone] Fawn Ramon DPM Unavailable [phone] Chris Aden MD Primary Care Provider [phone] Chris Aden MD Unavailable Reason for Visit * Reason Onset Date Comments Constipation 08/25/2022 Med Question 08/25/2022 Encounter Details Date Type Department Care Team (Late st Contact Info) Description 08/25/2022 Telephone [facility] - Family Medicine [id number] [place] [address] [place] [address] [address] Constipation; Med Question Social History [...] give advisement of PCP. Appt scheduled with MILK VENDORMayi for today. * Telephone Encounter - Katie [...] st Contact Info) Description 04/07/2024 10:00 AM BLACK POWDER GLAZING OPERATOR Office Visit [address] [address] Evelin Blanco, DIECAST MACHINE OPERATOR-[employer] [address] [id number] 06/06/2024 2:00 PM CDT Office Visit [address] [address] [place] [id number] [place] [address] documented as of this encounter Goals Goal Patient Goal Type Associated Problems Recent Progress Patient-Stated? Author Blood Pressure < 140/90 Blood Pressure 96/68(2023 2:34 PM BLACK POWDER GLAZING OPERATOR) Rere Vargas Note: Caring for Your [...] Where can I go for more information? [place] Heart Association National Center: http://www.americanheart.org 1. In the top header, click ? Conditions? . 2. In the top header, click ? high blood pressure.? 3. For a printable blood pressure tracker, scroll toward the bottom of the page to Related Tools, and click ? HBP Trackers.? 3-290-GBB-USA-1 or ( ) National Heart, Lung and Blood [place]: http://www.nhlbi.nih.gov/health/infoctr/index.htm Blood Pressure < 140/90 Blood Pressure 96/68(2023 2:34 PM BLACK POWDER GLAZING OPERATOR) Rere Vargas Note: Caring for Your [...] Where can I go for more information? [place] Heart Association National Center: http://www.americanheart.org 1. In the top header, click ? Conditions? . 2. In the top header, click ? high blood pressure.? 3. For a printable blood pressure tracker, scroll toward the bottom of the page to Related Tools, and click ? HBP Trackers.? 2-872-QJT-USA-1 or ( ) National Heart, Lung and Blood [place]: http://www.nhlbi.nih.gov/health/infoctr/index.htm Blood Pressure < 140/90 Blood Pressure 96/68(2023 2:34 PM BLACK POWDER GLAZING OPERATOR) Cassie Parks Note: Caring for Your [...] Where can I go for more information? [place] Heart Association National Center: http://www.americanheart.org 1. In the top header, click ? Conditions? . 2. In the top header, click ? high blood pressure.? 3. For a printable blood pressure tracker, scroll toward the bottom of the page to Related Tools, and click ? HBP Trackers.? 0-344-XRA-USA-1 or ( ) National Heart, Lung and Blood [place]: http://www.nhlbi.nih.gov/health/infoctr/index.htm Exercise 5X per week (30 min per time) Exercise No Rere Kaufman Note: The [place] College of Sports Medicine recommends all adults [...] how to manage your diabetes: ? ? [place] Diabetes Association: www.diabetes.org 2-078-LSEHATQT ( ) ? ? [place] Diabetes Association-Support group line: www.professional.diabetes.org ? ? [place] Heart Association: www.heart.org or 2-740-ZKU-USA-1 ( ) [employer] MyPlate: www.Upfront Digital Mediamyplate.gov Have labs drawn Lifestyle Rere Vargas Note: [...] on filedocumented in this encounter Care Teams Head Concierge Relationship Specialty [place] [address] [place] [address] PCP - General Internal Medicine 01/26/22 [place] [address] [place] [address] PCP - Attributed-[facility] 02/19/22 [place] [address] [facility] [address] [place] [address] Ophthalmology 04/06/16 Fawn Ramon DPM [address] [place] [address] Podiatry 01/24/21 documented as of this encounter
--- OUTSIDE RECORDS SUMMARY | 2024-04-03 02:26 | XMS_ITS | Encounter Summary ---
Author Organization [facility] Address [address] [facility] [place] [address] Care Team Providers Care Asset Specialist Name Role Phone Ricco Andrew MD Unavailable [phone] Rosana Solo MD Unavailable [phone] Encounter Details Date Type Department Care [...] st Contact Info) Description 04/07/2024 10:00 AM FIELD OBSERVER Office Visit [facility] - Family Medicine [address] [facility] [address] [place] [address] Evelin Blanco, JOSETTE-DENIS [address] [facility] [address] [place] [address] 06/06/2024 2:00 PM CDT Office Visit [facility] Family Medicine [address] [facility] [address] [place] [address] [place] [address] [facility] [address] [place] [address] documented as of this encounter Goals Goal Patient Goal Type Associated Problems Recent Progress Patient-Stated? Author Blood Pressure < 140/90 Blood Pressure 96/68(2023 2:34 PM FIELD OBSERVER) Rere Vargas Note: Caring for Your High [...] Where can I go for more information? [place] Heart Association National Center: http://www.americanheart.org 1. In the top header, click ? Conditions? . 2. In the top header, click ? high blood pressure.? 3. For a printable blood pressure tracker, scroll toward the bottom of the page to Related Tools, and click ? HBP Trackers.? 9-716-APH-USA-1 or ( ) National Heart, Lung and Blood [place]: http://www.nhlbi.nih.gov/health/infoctr/index.htm Blood Pressure < 140/90 Blood Pressure 96/68(2023 2:34 PM FIELD OBSERVER) Rere Vargas Note: Caring for Your High [...] Where can I go for more information? [place] Heart Association National Center: http://www.americanheart.org 1. In the top header, click ? Conditions? . 2. In the top header, click ? high blood pressure.? 3. For a printable blood pressure tracker, scroll toward the bottom of the page to Related Tools, and click ? HBP Trackers.? 1-980-ZKA-USA-1 or ( ) National Heart, Lung and Blood [place]: http://www.nhlbi.nih.gov/health/infoctr/index.htm Blood Pressure < 140/90 Blood Pressure 96/68(2023 2:34 PM FIELD OBSERVER) No Cassie Marie Note: Caring for Your [...] Where can I go for more information? [place] Heart Association National Center: http://www.americanheart.org 1. In the top header, click ? Conditions? . 2. In the top header, click ? high blood pressure.? 3. For a printable blood pressure tracker, scroll toward the bottom of the page to Related Tools, and click ? HBP Trackers.? 4-052-ZRN-USA-1 or ( ) National Heart, Lung and Blood [place]: http://www.nhlbi.nih.gov/health/infoctr/index.htm Exercise 5X per week (30 min per time) Exercise No Rere Kaufman Note: The [place] College of Sports Medicine recommends all adults [...] how to manage your diabetes: ? ? [place] Diabetes Association: www.diabetes.org 9-052-THFBNJWE ( ) ? ? [place] Diabetes Association-Support group line: www.professional.diabetes.org ? ? [place] Heart Association: www.heart.org or 1-151-SAH-USA-1 ( ) [employer] MyPlate: www.Mychebao.commyplate.gov Have labs drawn Lifestyle Rere Vargas Note: [...] on filedocumented in this encounter Care Teams Asset Specialist Relationship Specialty Start Date End Date Rosana Solo MD [address] [facility] [facility] [address] [place] [address] PCP - Attributed-[facility] 02/19/19 [place] [address] [facility] [address] [place] [address] Ophthalmology 04/06/16 documented as of this encounter
--- OUTSIDE RECORDS SUMMARY | 2024-04-03 02:26 | XMS_ITS | Encounter Summary ---
Author Organization [facility] Address [address] [facility] [place] [address] Care Team Providers Care Platen Grinder Name Role Phone Ricco Andrew MD Unavailable [phone] Fawn Ramon DPM Unavailable [phone] Chris Aden MD Primary Care Provider [phone] Chris Aden MD Unavailable Reason for Visit * Reason Comments Constipation Pain Back Left side of the low er back Encounter Details Date Type Department Care Team (Late st Contact Info) Description 08/26/2022 2:40 PM CDT Office Visit [facility] - Family Medicine [address] [facility] [address] [place] [address] Evelin Blanco, JOSETTE-DIRECT MARKETING EXECUTIVE [address] [facility] [address] [place] [address] Acute midline thoracic back pain [...] - 08/26/2022 3:09 PM CDT SUBJECTIVE: Mk Sancehs is a 87 year old male here [...] st Contact Info) Description 04/07/2024 10:00 AM RADIOGRAPHY TECHNICIAN Office Visit [facility] Family Medicine [address] [facility] [address] [place] [address] Evelin Blanco APRN-CNP [address] [facility] [address] [place], [place] [id number] 06/06/2024 2:00 PM CDT Office Visit [facility] Family Medicine [address] [facility] [address] [place] [address] [place] [address] [facility] [address] [place] [address] documented as of this encounter Goals Goal Patient Goal Type Associated Problems Recent Progress Patient-Stated? Author Blood Pressure < 140/90 Blood Pressure 96/68(2023 2:34 PM RADIOGRAPHY TECHNICIAN) Rere Vargas Note: Caring for Your [...] Related Tools, and click ? HBP Trackers.? 3-147-LAL-USA- or ( ) National Heart, Lung and Blood [place]: http://www.nhlbi.nih.gov/health/infoctr/index.htm Blood Pressure < 140/90 Blood Pressure 96/68(2023 2:34 PM RADIOGRAPHY TECHNICIAN) Rere Vargas Note: Caring for Your [...] Related Tools, and click ? HBP Trackers.? 5-383-VOI-USA- or ( ) National Heart, Lung and Blood [place]: http://www.nhlbi.nih.gov/health/infoctr/index.htm Blood Pressure < 140/90 Blood Pressure 96/68(2023 2:34 PM RADIOGRAPHY TECHNICIAN) Cassie Parks Note: Caring for Your [...] Related Tools, and click ? HBP Trackers.? 6-421-HPZ-USA-1 or ( ) National Heart, Lung and Blood [place]: http://www.nhlbi.nih.gov/health/infoctr/index.htm Exercise 5X per week (30 min per time) Exercise Rere Vargas Note: The [place] College of Sports Medicine [...] diabetes: ? ? [place] Diabetes Association: www.diabetes.org 3-359-AWNUWNUR ( ) ? ? [place] Diabetes Association-Support group line: www.professional.diabetes.org ? ? [place] Heart Association: www.heart.org or 6-280-VDH-USA-1 ( ) [employer] MyPlate: www.Echovoxmyplate.gov Have labs drawn Lifestyle Rere Vargas Note: [...] MD on 08/26/2022 5:18 PM Evelin Blanco NECKTIE MAKER-DIRECT MARKETING EXECUTIVE DIAGNOSTIC IMAG ING ORDERABLES * XR ABD [...] MD on 08/26/2022 4:10 PM Evelin Blanco NECKTIE MAKER-DIRECT MARKETING EXECUTIVE DIAGNOSTIC IMAG ING ORDERABLES documented in this encounter Visit Diagnoses Diagnosis Acute midline thoracic back pain- Primary Other constipation Other constipation Acute midline thoracic back pain documented in this encounter Care Teams Platen Grinder Relationship Specialty [place] [address] [place] [address] PCP - General Internal Medicine 01/26/22 [place] [address] [address] [place] [address] PCP - [facility] 02/19/22 [place] [address] [facility] [address] [place] [address] Ophthalmology 04/06/16 Fawn Ram[place] [address] [place] [address] Podiatry 01/24/21 documented as of this encounter
--- OUTSIDE RECORDS SUMMARY | 2024-04-03 02:26 | XMS_ITS | Encounter Summary ---
Author Organization [facility] Address [address] [facility] [place] [address] Care Team Providers Care Fish Icer Name Role Phone Ricco Andrew MD Unavailable [phone] Fawn Ramon DPM Unavailable Chris Aden MD Primary Care Provider [phone] Chris Aden MD Unavailable Encounter Details Date Type Department Care Team (Latest Contact Info) Description 08/26/2022 3:45 PM CDT - 08/26/2022 11:59 PM CDT Hospital Encounter [facility] - Radiology [address] [place] [address] Evelin Blanco, MAIL CARRIERS SUPERVISOR-TUBE TELLER [address] [facility] [address] [place] [address] Discharge Disposition: Home or Self [...] st Contact Info) Description 04/07/2024 10:00 AM CHARTER AND TOUR BUS DRIVER Office Visit [facility] [address] [facility] [address] [place] [address] Evelin Blanco APRN-CNP [address] [facility] [address] [place] [address] 06/06/2024 2:00 PM CDT Office Visit [facility] [address] [facility] [address] [place] [address] [place] [address] [address] documented as of this encounter Goals Goal Patient Goal Type Associated Problems Recent Progress Patient-Stated? Author Blood Pressure < 140/90 Blood Pressure 96/68(2023 2:34 PM CHARTER AND TOUR BUS DRIVER) Rere Vargas Note: Caring for Your [...] Related Tools, and click ? HBP Trackers.? 3-948-CEP-USA-1 or ( ) National Heart, Lung and Blood [place]: http://www.nhlbi.nih.gov/health/infoctr/index.htm Blood Pressure < 140/90 Blood Pressure 96/68(2023 2:34 PM CHARTER AND TOUR BUS DRIVER) Rere Vargas Note: Caring for Your [...] Related Tools, and click ? HBP Trackers.? 0-387-OHA-USA-1 or ( ) National Heart, Lung and Blood [place]: http://www.nhlbi.nih.gov/health/infoctr/index.htm Blood Pressure < 140/90 Blood Pressure 96/68(2023 2:34 PM CHARTER AND TOUR BUS DRIVER) Cassie Parks Note: Caring for Your High [...] Related Tools, and click ? HBP Trackers.? 8-671-ZFD-USA-1 or ( ) National Heart, Lung and Blood [place]: http://www.nhlbi.nih.gov/health/infoctr/index.htm Exercise 5X per week (30 [...] diabetes: ? ? [place] Diabetes Association: www.diabetes.org 8-164-KEUMRIHK ( ) ? ? Thai Diabetes Association-Support group line: www.professional.diabetes.org ? ? [place] Heart Association: www.heart.org or 5-139-JGG-USA-1 ( ) [employer] MyPlate: www.2NGageUmyplate.gov Have labs drawn Lifestyle No Rere Kaufman [...] MD on 08/26/2022 5:18 PM Evelin Blanco MAIL CARRIERS SUPERVISOR-TUBE TELLER DIAGNOSTIC IMAG ING ORDERABLES * XR ABD [...] MD on 08/26/2022 4:10 PM Evelin Blanco MAIL CARRIERS SUPERVISOR-TUBE TELLER DIAGNOSTIC IMAG ING ORDERABLES documented in this encounter Visit Diagnoses Diagnosis Other constipation Acute midline thoracic back pain documented in this encounter Care Teams Fish Icer Relationship Specialty [place] [address] [place] [address] PCP - General Internal Medicine 01/26/22 [place] [address] [place] [address] PCP - Attributed-[facility] 02/19/22 [place] [address] [facility] [address] [place] [address] Ophthalmology 04/06/16 Fawn Ramon DPM [address] [place] [address] Podiatry 01/24/21 documented as of this encounter
--- OUTSIDE RECORDS SUMMARY | 2024-04-03 02:26 | XMS_ITS | Encounter Summary ---
Author Organization [facility] Address [address] [place] [address] Care Team Providers Care Shaker Screen Operator Name Role Phone Ricco Andrew MD Unavailable [phone] Fawn Ramon DPM Unavailable [phone] Chris Aden MD Primary Care Provider [phone] Chris Aden MD Unavailable Reason for Visit * Reason Onset Date Comments Forms 04/17/2022 orders Encounter Details Date Type Department Care Team (Late st Contact Info) Description 04/17/2022 Telephone [facility] - Family Medicine [id number] [place] [address] Chris [place]en [place] [address] [place] [address] Forms (orders) Social History Tobacco Use [...] st Contact Info) Description 04/07/2024 10:00 AM PIPEMAN Office Visit [facility] [address] [facility] [address] [place] [address] Chayodevin EvelinNIKITA [address] [facility] [address] [place] [address] 06/06/2024 2:00 PM CDT Office Visit [facility] [address] [facility] [address] [place] [address] [place] [address] [facility] [address] [place] [address] documented as of this encounter Goals Goal Patient Goal Type Associated Problems Recent Progress Patient-Stated? Author Blood Pressure < 140/90 Blood Pressure 96/68(2023 2:34 PM PIPEMAN) Rere Vargas Note: Caring for Your High [...] Related Tools, and click ? HBP Trackers.? 5-329-LXS-USA-1 or ( ) National Heart, Lung and Blood [place]: http://www.nhlbi.nih.gov/health/infoctr/index.htm Blood Pressure < 140/90 Blood Pressure 96/68(2023 2:34 PM PIPEMAN) Rere Vargas Note: Caring for Your High [...] Related Tools, and click ? HBP Trackers.? 3-544-MES-USA-1 or ( ) National Heart, Lung and Blood [place]: http://www.nhlbi.nih.gov/health/infoctr/index.htm Blood Pressure < 140/90 Blood Pressure 96/68(2023 2:34 PM PIPEMAN) Cassie Parks Note: Caring for Your High [...] Related Tools, and click ? HBP Trackers.? 8-956-CLN-USA-1 or ( ) National Heart, Lung and Blood [place]: http://www.nhlbi.nih.gov/health/infoctr/index.htm Exercise 5X per week (30 min [...] diabetes: ? ? [place] Diabetes Association: www.diabetes.org 5-045-KHPDSMVC ( ) ? ? [place] Diabetes Association-Support group line: www.professional.diabetes.org ? ? [place] Heart Association: www.heart.org or 9-785-MAS-USA-1 ( ) [employer] MyPlate: www.Ledzworldmyplate.gov Have labs drawn Lifestyle No Rere Kaufman [...] on filedocumented in this encounter Care Teams Shaker Screen Operator Relationship Specialty [place] [address] [place] [address] PCP - General Internal Medicine 01/26/22 [place] [address] [place] [address] PCP - [facility] 02/19/22 [place] [address] [facility] [address] [place] [address] Ophthalmology 04/06/16 Fawn Ramon DPM [address] [place] [address] Podiatry 01/24/21 documented as of this encounter
--- OUTSIDE RECORDS SUMMARY | 2024-04-03 02:26 | XMS_ITS | Encounter Summary ---
Author Organization [facility] Address [address] [place] [address] Care Team Providers Care Vacuum Caster Name Role Phone Ricco Andrew MD Unavailable [phone] Fawn Ramon DPM Unavailable [phone] Chris Aden MD Primary Care Provider [phone] Chris Aden MD Unavailable Reason for Visit * Reason Comments Refill Request Encounter Details Date Type Department Care Team (Late Contact Info) Description 04/09/2022 Refill [facility] - Family Medicine [address] [place] [address] Chris Aden MD [address] [place] [address] Refill Request Social History Tobacco Use [...] st Contact Info) Description 04/07/2024 10:00 AM EXHAUST MACHINE OPERATOR Office Visit [facility] [address] [facility] [address] [place] [address] Evelin Blanco APRN-CNP [address] [facility] [address] [place], [place] [address] 06/06/2024 2:00 PM CDT Office Visit [facility] [address] [facility] [address] [place] [address] [place] [address] [facility]NOTE 2[facility] [address] [place] [address] documented as of this encounter Goals Goal Patient Goal Type Associated Problems Recent Progress Patient-Stated? Author Blood Pressure < 140/90 Blood Pressure 96/68(2023 2:34 PM EXHAUST MACHINE OPERATOR) Rere Vargas Note: Caring for [...] Where can I go for more information? [place] Heart Association National Center: http://www.americanheart.org 1. In the top header, click ? Conditions? . 2. In the top header, click ? high blood pressure.? 3. For a printable blood pressure tracker, scroll toward the bottom of the page to Related Tools, and click ? HBP Trackers.? 1-933-HIT-USA-1 or ( ) National Heart, Lung and Blood [place]: http://www.nhlbi.nih.gov/health/infoctr/index.htm Blood Pressure < 140/90 Blood Pressure 96/68(2023 2:34 PM EXHAUST MACHINE OPERATOR) Rere Vargas Note: Caring for [...] Where can I go for more information? [place] Heart Association National Center: http://www.americanheart.org 1. In the top header, click ? Conditions? . 2. In the top header, click ? high blood pressure.? 3. For a printable blood pressure tracker, scroll toward the bottom of the page to Related Tools, and click ? HBP Trackers.? 9-742-CVW-USA-1 or ( ) National Heart, Lung and Blood [place]: http://www.nhlbi.nih.gov/health/infoctr/index.htm Blood Pressure < 140/90 Blood Pressure 96/68(2023 2:34 PM EXHAUST MACHINE OPERATOR) Cassie Parks Note: Caring for [...] Where can I go for more information? Palestinian Heart Association National Center: http://www.americanheart.org 1. In the top header, click ? Conditions? . 2. In the top header, click ? high blood pressure.? 3. For a printable blood pressure tracker, scroll toward the bottom of the page to Related Tools, and click ? HBP Trackers.? 9-132-SDW-USA-1 or ( ) National Heart, Lung and Blood [place]: http://www.nhlbi.nih.gov/health/infoctr/index.htm Exercise 5X per week (30 min per time) Exercise Rere Vargas Note: The [place] College of Sports Medicine recommends all adults [...] how to manage your diabetes: ? ? [place] Diabetes Association: www.diabetes.org 9-387-NVGFZWUC ( ) ? ? [place] Diabetes Association-Support group line: www.professional.diabetes.org ? ? [place] Heart Association: www.heart.org or 4-488-YAU-USA-1 ( ) [employer] MyPlate: www.Lionicalmyplate.gov Have labs drawn Lifestyle No Rere Kaufman [...] on filedocumented in this encounter Care Teams Vacuum Caster Relationship Specialty [place] [address] [place] [address] PCP - General Internal Medicine 01/26/22 [place] [address] [place] [address] PCP - [facility] 02/19/22 [place] [address] [facility] [address] [place] [address] Ophthalmology 04/06/16 Fawn Ramon DPM [address] [place] [address] Podiatry 01/24/21 documented as of this encounter
--- OUTSIDE RECORDS SUMMARY | 2024-04-03 02:26 | XMS_ITS | Encounter Summary ---
Author Organization [facility] Address [address] [place] [address] Care Team Providers Care Tooling Mechanic Name Role Phone Ricco Andrew MD Unavailable Fawn Ramon DPKae Unavailable [phone] Reason for Visit * Reason Comments Refill Request Encounter Details Date Type Department Care Team (Late st Contact Info) Description 10/18/2021 Refill [facility] - Family Medicine [address] [place], [place] [id number] Rosana Solo MD [address] [place] [phone] Refill Request Social History Tobacco Use [...] 10:00 AM MEDICAL RADIATION THERAPIST Office Visit [facility] [id number] [place] [address] Evelin Blanco, TICK ERADICATOR-FARM SERVICE ADVISER [id number] [place] [address] 06/06/2024 2:00 PM CDT Office Visit [address] [address] Chris [place]en MD [address] [place] [address] documented as of this encounter Goals [...] Where can I go for more information? [place] Heart Association National Center: http://www.americanheart.org 1. In the top header, click ? Conditions? . 2. In the top header, click ? high blood pressure.? 3. For a printable blood pressure tracker, scroll toward the bottom of the page to Related Tools, and click ? HBP Trackers.? 8-093-IYG-USA-1 or ( ) National Heart, Lung and Blood [place]: http://www.nhlbi.nih.gov/health/infoctr/index.htm Blood Pressure < 140/90 Blood Pressure [...] Where can I go for more information? [place] Heart Association National Center: http://www.americanheart.org 1. In the top header, click ? Conditions? . 2. In the top header, click ? high blood pressure.? 3. For a printable blood pressure tracker, scroll toward the bottom of the page to Related Tools, and click ? HBP Trackers.? 0-214-GVQ-USA-1 or ( ) National Heart, Lung and Blood [place]: http://www.nhlbi.nih.gov/health/infoctr/index.htm Blood Pressure < 140/90 Blood Pressure 96/68(2023 2:34 PM MEDICAL RADIATION THERAPIST) Cassie Parks Note: Caring for Your High [...] Where can I go for more information? [place] Heart Association National Center: http://www.americanheart.org 1. In the top header, click ? Conditions? . 2. In the top header, click ? high blood pressure.? 3. For a printable blood pressure tracker, scroll toward the bottom of the page to Related Tools, and click ? HBP Trackers.? 0-229-PDY-USA-1 or ( ) National Heart, Lung and Blood [place]: http://www.nhlbi.nih.gov/health/infoctr/index.htm Exercise 5X per week (30 min per time) Exercise Rere Vargas Note: The [place] College of Sports Medicine recommends all [...] how to manage your diabetes: ? ? [place] Diabetes Association: www.diabetes.org 6-352-SFFOASGS ( ) ? ? [place] Diabetes Association-Support group line: www.professional.diabetes.org ? ? [place] Heart Association: www.heart.org or 0-147-BLC-USA-1 ( ) [employer] MyPlate: www.choosemyplate.gov Have labs drawn Lifestyle Rere [...] on filedocumented in this encounter Care Teams Tooling Mechanic Relationship Specialty [place] [address] [place] [phone] Ophthalmology 04/06/16 Fawn Ramon DPM [address] [place] [address] Podiatry 01/24/21 documented as of this encounter
--- OUTSIDE RECORDS SUMMARY | 2024-04-03 02:26 | XMS_ITS | Encounter Summary ---
Author Organization [facility] Address [address] [facility] [place] [address] Care Team Providers Care Associate Spa Director Name Role Phone Ricco Andrew MD Unavailable [phone] Rosana Solo MD Unavailable [phone] Reason for Visit * Reason Comments Hospital Follow-up Encounter Details Date Type Department Care Team (Late st Contact Info) Description 01/20/2021 1:45 PM CDT Office Visit [facility] - Family Medicine [id number] [place] [address] [place] [address] Evelin Blanco, JOSETTESOLOMON [facility] [address] [facility] [address] [place] [address] Type 2 diabetes mellitus with stage [...] this encounter Progress Notes * Evelin Blanco, JOSETTE-SHAPE BRICK MOLDER - 01/20/2021 2:13 PM CDT SUBJECTIVE: Mk [...] ??? Trigger finger HPI: Pt was in [facility] in [place] 01-14-2021 and returned home on 01-16-2021 and [...] lung PLAN: Orders Placed This Encounter ??? [facility] Diabetes Education @ [facility] Standing Status: Standing Number of Occurrences: 5 [...] is on right now. To ER in [facility]. Further recommendations pending the above results and patient's clinical course. Follow-up visit prn. The patient indicates understanding of these issues and agrees with the plan. documented in this encounter Plan of Treatment Upcoming Encounters Date Type Department Care Team (Late st Contact Info) Description 04/07/2024 10:00 AM MEDICAL DEVICE SALES Office Visit [facility] [id number] [place] [address] [address] [place] [address] Evelin Blanco APRN-CNP [address] [facility] [address] [place] [address] 06/06/2024 2:00 PM CDT Office Visit [facility] [phone] [place] [address] [address] [place] [address] [place] [address] [facility] [address] [place] [address] documented as of this encounter Goals Goal Patient Goal Type Associated Problems Recent Progress Patient-Stated? Author Blood Pressure < 140/90 Blood Pressure 96/68(2023 2:34 PM MEDICAL DEVICE SALES) Rere Vargas Note: Caring for Your High [...] Related Tools, and click ? HBP Trackers.? 9-694-CJB-USA-1 or ( ) National Heart, Lung and Blood [place]: http://www.nhlbi.nih.gov/health/infoctr/index.htm Blood Pressure < 140/90 Blood Pressure 96/68(2023 2:34 PM MEDICAL DEVICE SALES) Rere Vargas Note: Caring for Your High [...] Related Tools, and click ? HBP Trackers.? 8-743-CTY-USA-1 or ( ) National Heart, Lung and Blood [place]: http://www.nhlbi.nih.gov/health/infoctr/index.htm Blood Pressure < 140/90 Blood Pressure 96/68(2023 2:34 PM MEDICAL DEVICE SALES) Cassie Parks Note: Caring for Your High [...] Related Tools, and click ? HBP Trackers.? 2-476-ZPY-USA-1 or ( ) National Heart, Lung and Blood [place]: http://www.nhlbi.nih.gov/health/infoctr/index.htm Exercise 5X per week (30 min per time) Exercise Rere Vargas Note: The [place] College of Sports [...] ? ? [place] Diabetes Association: www.diabetes.org 5-959-NSHVRAHX ( ) ? ? [place] Diabetes Association-Support group line: www.professional.diabetes.org ? ? [place] Heart Association: www.heart.org or 2-405-VBZ-USA-1 ( ) [employer] MyPlate: www.ClickPay Servicesmyplate.gov Have labs drawn Lifestyle Rere Vargas Note: [...] lung documented in this encounter Care Teams Associate Spa Director Relationship Specialty Start Date End Date Rosana Solo MD [address] [place] [address] PCP - Attributed-[facility] 02/19/19 [place] [address] [facility] [facility] [address] [address] Ophthalmology 04/06/16 documented as of this encounter
--- OUTSIDE RECORDS SUMMARY | 2024-04-03 02:26 | XMS_ITS | Encounter Summary ---
Author Organization [facility] Address [address] [facility] [place] [address] Care Team Providers Care Inspecting And Testing Lead Hand Name Role Phone Ricco Andrew MD Unavailable [phone] Fawn Ramon DPM Unavailable [phone] Chris Aden MD Primary Care Provider [phone] Chris Aden MD Unavailable Reason for Visit * Reason Onset Date Comments Constipation 04/16/2022 Encounter Details Date Type Department Care Team (Late st Contact Info) Description 04/16/2022 Telephone [facility] - Family Medicine [id number] [place] [address] Chris Aden MD [address] [place] [address] Constipation Social History Tobacco Use Types [...] notify family. No further questionsat this time. DETASSELER * Telephone Encounter - Ana Dallas RN - 04/16/2022 3:07 PM CST Lillie from called stating daughter of patient has given Miralax starting last and has been given everyday since. Patient has only produced a moderate sized hard BM on Thursday 04/13. Abdomen is soft, patient is comfortable, and has good BS at this time. Would you recommend a stool softener? Please advise. DETASSELER documented in this encounter Plan of Treatment Upcoming Encounters Date Type Department Care Team (Late st Contact Info) Description 04/07/2024 10:00 AM CORN DETASSELER Office Visit [facility] [id number] [place] [address] Evelin Blanco APRN-FRONT END SPECIALIST [address] [address] 06/06/2024 2:00 PM CDT Office Visit [facility] [id number] [place] [address] [place] [address] [place] [phone] documented as of this encounter Goals Goal Patient Goal Type Associated Problems Recent Progress Patient-Stated? Author Blood Pressure < 140/90 Blood Pressure 96/68(2023 2:34 PM CORN DETASSELER) Rere Vargas Note: Caring for Your High [...] Related Tools, and click ? HBP Trackers.? 7-962-XUG-USA-1 or ( ) National Heart, Lung and Blood [place]: http://www.nhlbi.nih.gov/health/infoctr/index.htm Blood Pressure < 140/90 Blood Pressure 96/68(2023 2:34 PM CORN DETASSELER) Rere Vargas Note: Caring for Your High [...] Related Tools, and click ? HBP Trackers.? 2-690-EFG-USA-1 or ( ) National Heart, Lung and Blood [place]: http://www.nhlbi.nih.gov/health/infoctr/index.htm Blood Pressure < 140/90 Blood Pressure 96/68(2023 2:34 PM CORN DETASSELER) Cassie Parks Note: Caring for Your High [...] Related Tools, and click ? HBP Trackers.? 6-822-MAM-USA-1 or ( ) National Heart, Lung and Blood [place]: http://www.nhlbi.nih.gov/health/infoctr/index.htm Exercise 5X per week (30 min [...] diabetes: ? ? [place] Diabetes Association: www.diabetes.org 2-921-FWGYJEBC ( ) ? ? [place] Diabetes Association-Support group line: www.professional.diabetes.org ? ? [place] Heart Association: www.heart.org or 1-620-GGU-USA-1 ( ) [employer] MyPlate: www.JamOriginmyplate.gov Have labs drawn Lifestyle No Rere Kaufman [...] on filedocumented in this encounter Care Teams Inspecting And Testing Lead Hand Relationship Specialty [place] [address] [place] [phone] PCP - General Internal Medicine 01/26/22 [place] [address] [place] [phone] PCP - [facility] 02/19/22 [place] [address] [facility] [address] [place] [address] Ophthalmology 04/06/16 Fawn Ramon DPM [address] [place] [address] Podiatry 01/24/21 documented as of this encounter
--- OUTSIDE RECORDS SUMMARY | 2024-04-03 02:26 | XMS_ITS | Encounter Summary ---
Author Organization [facility] Address [address] [facility] [place] [address] Care Team Providers Care Air Brake Tester Name Role Phone Ricco Andrew MD Unavailable [phone] Fawn Ramon DPKae Unavailable [phone] Reason for Visit * Reason Onset Date Comments Confirmation 01/20/2022 Encounter Details Date Type Department Care Team (Late st Contact Info) Description 01/20/2022 Telephone [facility] - Family Medicine [address] [address] [place] [address] [phone] Confirmation Social History Tobacco Use [...] listed above, where are they calling from? [facility] What is the reason for call? Attempted to reach patient to confirm upcoming appt with Dr. Aden. Left Message. Expected Response from the Clinic? N/A documented in this encounter Plan of Treatment Upcoming Encounters Date Type Department Care Team (Late st Contact Info) Description 04/07/2024 10:00 AM SURGERY MANAGER Office Visit [facility] [address] [facility] [address] [place] [address] Evelin Blanco APRN-CNP [address] [address] 06/06/2024 2:00 PM CDT Office Visit [facility] [phone] [place] [address] [address] [place] [address] [place] [address] [facility] [address] [address] documented as of this encounter Goals Goal Patient Goal Type Associated Problems Recent Progress Patient-Stated? Author Blood Pressure < 140/90 Blood Pressure 96/68(2023 2:34 PM SURGERY MANAGER) Rere Vargas Note: Caring for Your [...] Related Tools, and click ? HBP Trackers.? 1-230-QQH-USA-1 or ( ) National Heart, Lung and Blood [place]: http://www.nhlbi.nih.gov/health/infoctr/index.htm Blood Pressure < 140/90 Blood Pressure 96/68(2023 2:34 PM SURGERY MANAGER) Rere Vargas Note: Caring for Your [...] Related Tools, and click ? HBP Trackers.? 7-368-HNN-USA-1 or ( ) National Heart, Lung and Blood [place]: http://www.nhlbi.nih.gov/health/infoctr/index.htm Blood Pressure < 140/90 Blood Pressure 96/68(2023 2:34 PM SURGERY MANAGER) Cassie Parks Note: Caring for Your [...] Related Tools, and click ? HBP Trackers.? 6-188-TQG-USA-1 or ( ) National Heart, Lung and Blood [place]: http://www.nhlbi.nih.gov/health/infoctr/index.htm Exercise 5X per week (30 min [...] diabetes: ? ? [place] Diabetes Association: www.diabetes.org 5-129-SFFLHSUF ( ) ? ? Indian Diabetes Association-Support group line: www.professional.diabetes.org ? ? Indian Heart Association: www.heart.org or 3-597-DNP-USA-1 ( ) [employer]set Wellen MyPlate: www.Gudogmyplate.gov Have labs drawn Lifestyle Rere Vargas Note: [...] on filedocumented in this encounter Care Teams Air Brake Tester Relationship Specialty [place] [address] [facility] [address] [place] [address] Ophthalmology 04/06/16 Fawn Ramon DPM [address] [place] [address] Podiatry 01/24/21 documented as of this encounter
--- OUTSIDE RECORDS SUMMARY | 2024-04-03 02:26 | XMS_ITS | Encounter Summary ---
Author Organization [facility] Address [address] [facility] [place] [address] Care Team Providers Care Marble Mechanic Helper Name Role Phone Ricco Andrew MD Unavailable [phone] Fawn Ramon DPM Unavailable [phone] Chris Aden MD Primary Care Provider [phone] Chris Aden MD Unavailable Encounter Details Date Type Department Care Team (Late st Contact Info) Description 04/16/2022 Orders Only [facility] - Family Medicine [id number] [place] [address] Chris Aden MD [address] [place] [address] Social History Tobacco Use Types Packs/Day [...] st Contact Info) Description 04/07/2024 10:00 AM GOVERNMENT SERVICE EXECUTIVE Office Visit [facility] [address] [facility] [address] [place] [address] Evelin Blanco APRN-CNP [address] [facility] [address] [place] [address] 06/06/2024 2:00 PM CDT Office Visit [facility] [address] [facility] [address] [place], [place] [address] [place] [address] [address] documented as of this encounter Goals Goal Patient Goal Type Associated Problems Recent Progress Patient-Stated? Author Blood Pressure < 140/90 Blood Pressure 96/68(2023 2:34 PM GOVERNMENT SERVICE EXECUTIVE) Rere Vargas Note: Caring for Your High [...] Where can I go for more information? [place] Heart Association National Center: http://www.americanheart.org 1. In the top header, click ? Conditions? . 2. In the top header, click ? high blood pressure.? 3. For a printable blood pressure tracker, scroll toward the bottom of the page to Related Tools, and click ? HBP Trackers.? 4-554-TCA-USA- or ( ) National Heart, Lung and Blood [place]: http://www.nhlbi.nih.gov/health/infoctr/index.htm Blood Pressure < 140/90 Blood Pressure 96/68(2023 2:34 PM GOVERNMENT SERVICE EXECUTIVE) Rere Vargas Note: Caring for Your High [...] Where can I go for more information? [place] Heart Association National Center: http://www.americanheart.org 1. In the top header, click ? Conditions? . 2. In the top header, click ? high blood pressure.? 3. For a printable blood pressure tracker, scroll toward the bottom of the page to Related Tools, and click ? HBP Trackers.? 4-483-LNT-USA- or ( ) National Heart, Lung and Blood [place]: http://www.nhlbi.nih.gov/health/infoctr/index.htm Blood Pressure < 140/90 Blood Pressure 96/68(2023 2:34 PM GOVERNMENT SERVICE EXECUTIVE) Cassie Parks Note: Caring for Your High [...] Where can I go for more information? [place] Heart Association National Center: http://www.americanheart.org 1. In the top header, click ? Conditions? . 2. In the top header, click ? high blood pressure.? 3. For a printable blood pressure tracker, scroll toward the bottom of the page to Related Tools, and click ? HBP Trackers.? 9-314-COI-USA-1 or ( ) National Heart, Lung and Blood [place]: http://www.nhlbi.nih.gov/health/infoctr/index.htm Exercise 5X per week (30 min per time) Exercise Rere Vargas Note: The [place] College of Sports Medicine recommends all adults [...] how to manage your diabetes: ? ? [place] Diabetes Association: www.diabetes.org 5-152-LUDDMGEV ( ) ? ? [place] Diabetes Association-Support group line: www.professional.diabetes.org ? ? [place] Heart Association: www.heart.org or 4-044-MGS-USA-1 ( ) [employer] MyPlate: www.BiiCodemyplate.gov Have labs drawn Lifestyle No Rere Kaufman [...] on filedocumented in this encounter Care Teams Marble Mechanic Helper Relationship Specialty [place] [address] [place] [address] PCP - General Internal Medicine 01/26/22 [place] [address] [place] [address] PCP - [facility] 02/19/22 [place] [address] [facility] [address] [place] [address] Ophthalmology 04/06/16 Fawn Ramon DPM [address] [place] [address] Podiatry 01/24/21 documented as of this encounter
--- OUTSIDE RECORDS SUMMARY | 2024-04-03 02:26 | XMS_ITS | Encounter Summary ---
Author Organization [facility] Address [address] [facility] [place] [address] Care Team Providers Care Inker And Opaquer Name Role Phone Ricco Andrew MD Unavailable [phone] Rosana Solo MD Unavailable [phone] Fawn Ramon Kae Unavailable [phone] Reason for Visit * Reason Onset Date Comments Therapy 07/10/2021 Encounter Details Date Type Department Care Team (Late st Contact Info) Description 07/10/2021 Telephone [facility] - Family Medicine [address] [place] [address] Rosana Solo MD [address] [phone] Therapy Social History Tobacco Use [...] Will approved HH Pt was admitted at [facility] for Sepsis due to acute [...] st Contact Info) Description 04/07/2024 10:00 AM CHEMICAL PROCESSING TECHNICIAN Office Visit [facility] [address] [place] [phone] Evelin Blanco APRN-CAN RECONDITIONER [address] [address] 06/06/2024 2:00 PM CDT Office Visit [facility] [address] [place] [phone] [place] [address] [phone] documented as of this encounter Goals Goal Patient Goal Type Associated Problems Recent Progress Patient-Stated? Author Blood Pressure < 140/90 Blood Pressure 96/68(2023 2:34 PM CHEMICAL PROCESSING TECHNICIAN) Rere Vargas Note: Caring for Your [...] Where can I go for more information? [place] Heart Association National Center: http://www.americanheart.org 1. In the top header, click ? Conditions? . 2. In the top header, click ? high blood pressure.? 3. For a printable blood pressure tracker, scroll toward the bottom of the page to Related Tools, and click ? HBP Trackers.? 0-030-DDC-USA-1 or ( ) National Heart, Lung and Blood [place]: http://www.nhlbi.nih.gov/health/infoctr/index.htm Blood Pressure < 140/90 Blood Pressure 96/68(2023 2:34 PM CHEMICAL PROCESSING TECHNICIAN) Rere Vargas Note: Caring for Your [...] Where can I go for more information? [place] Heart Association National Center: http://www.americanheart.org 1. In the top header, click ? Conditions? . 2. In the top header, click ? high blood pressure.? 3. For a printable blood pressure tracker, scroll toward the bottom of the page to Related Tools, and click ? HBP Trackers.? 4-926-BLX-USA-1 or ( ) National Heart, Lung and Blood [place]: http://www.nhlbi.nih.gov/health/infoctr/index.htm Blood Pressure < 140/90 Blood Pressure 96/68(2023 2:34 PM CHEMICAL PROCESSING TECHNICIAN) Cassie Parks Note: Caring for Your [...] Where can I go for more information? [place] Heart Association National Center: http://www.americanheart.org 1. In the top header, click ? Conditions? . 2. In the top header, click ? high blood pressure.? 3. For a printable blood pressure tracker, scroll toward the bottom of the page to Related Tools, and click ? HBP Trackers.? 1-128-ZVW-USA-1 or ( ) National Heart, Lung and Blood [place]: http://www.nhlbi.nih.gov/health/infoctr/index.htm Exercise 5X per week (30 min per time) Exercise Rere Vargas Note: The [place] College of Sports Medicine recommends all adults [...] how to manage your diabetes: ? ? [place] Diabetes Association: www.diabetes.org 5-934-LASUDGHZ ( ) ? ? [place] Diabetes Association-Support group line: www.professional.diabetes.org ? ? [place] Heart Association: www.heart.org or 8-584-VGK-USA-1 ( ) [employer] MyPlate: www.choosemyplate.gov Have labs drawn Lifestyle Rere [...] on filedocumented in this encounter Care Teams Inker And Opaquer Relationship Specialty Start Date End Date Rosana Solo MD [address] [phone] PCP - Attributed-[facility] 02/19/19 [place] [address] [facility] [address] [place] [address] Ophthalmology 04/06/16 Fawn Ramon DPM [address] [place] [address] Podiatry 01/24/21 documented as of this encounter
--- OUTSIDE RECORDS SUMMARY | 2024-04-03 02:26 | XMS_ITS | Encounter Summary ---
Author Organization [facility] Address [address] [facility] [place] [address] Care Team Providers Care Matrix Inspector Name Role Phone Ricco Andrew MD Unavailable [phone] Fawn Ramon DPM Unavailable [phone] Chris Aden MD Primary Care Provider [phone] Chris dAen MD Unavailable Reason for Visit * Reason Onset Date Comments Referral 05/20/2022 Encounter Details Date Type Department Care Team (Late st Contact Info) Description 05/20/2022 Telephone [facility] - Family Medicine [id number] [place] [address] Chris Aden MD [address] [place] [address] Referral Social History Tobacco Use Types [...] see telephone encounter from 05/18/22 from Kasia DESIGN ENGINEER * Telephone Encounter - Mainor Bone - [...] the call was bumped back to the [facility]. Please contact this office with the appropriate information so the patient can be seeby Dr Camp today. Expected Response from the Clinic? Can call Elke at the office @ [phone] DESIGN ENGINEER documented in this encounter Plan of Treatment Upcoming Encounters Date Type Department Care Team (Late st Contact Info) Description 04/07/2024 10:00 AM RF DESIGN ENGINEER Office Visit [facility] [id number] [place] [address] [place] [address] Evelin Blanco, METAL ENGRAVER-MERCHANDISE HANDLER [address] [facility] [address] [place] [address] 06/06/2024 2:00 PM CDT Office Visit [facility] [id number] [place] [address] [place] [address] Chris Aden MD [id number] [place] [address] [address] [place] [phone] documented as of this encounter Goals Goal Patient Goal Type Associated Problems Recent Progress Patient-Stated? Author Blood Pressure < 140/90 Blood Pressure 96/68(2023 2:34 PM RF DESIGN ENGINEER) Rere Vargas Note: Caring for Your [...] Related Tools, and click ? HBP Trackers.? 9-556-MFL-USA-1 or ( ) National Heart, Lung and Blood [place]: http://www.nhlbi.nih.gov/health/infoctr/index.htm Blood Pressure < 140/90 Blood Pressure 96/68(2023 2:34 PM RF DESIGN ENGINEER) Rere Vargas Note: Caring for Your [...] Related Tools, and click ? HBP Trackers.? 9-958-CKY-USA-1 or ( ) National Heart, Lung and Blood [place]: http://www.nhlbi.nih.gov/health/infoctr/index.htm Blood Pressure < 140/90 Blood Pressure 96/68(2023 2:34 PM RF DESIGN ENGINEER) Cassie Parks Note: Caring for Your [...] Related Tools, and click ? HBP Trackers.? 1-092-UKJ-USA-1 or ( ) National Heart, Lung and Blood [place]: http://www.nhlbi.nih.gov/health/infoctr/index.htm Exercise 5X per week (30 min per time) Exercise Rere Vargas Note: The [place] [employer] [...] diabetes: ? ? [place] Diabetes Association: www.diabetes.org 2-719-YCJTHRUO ( ) ? ? [place] Diabetes Association-Support group line: www.professional.diabetes.org ? ? [place] Heart Association: www.heart.org or 0-601-CRD-USA-1 ( ) [employer] MyPlate: www.Wag Mobliemyplate.gov Have labs drawn Lifestyle Rere Vargas Note: [...] on filedocumented in this encounter Care Teams Matrix Inspector Relationship Specialty [place] [address] [place] [address] PCP - General Internal Medicine 01/26/22 [place] [address] [place] [address] PCP - Attributed-[facility] 02/19/22 [place] [address] [facility] [address] [place] [phone] Ophthalmology 04/06/16 Fawn Ramon DPM [address] [place] [address] Podiatry 01/24/21 documented as of this encounter
--- OUTSIDE RECORDS SUMMARY | 2024-04-03 02:26 | XMS_ITS | Encounter Summary ---
Author Organization [facility] Address [address] [facility] [place] [address] Care Team Providers Care Watch Case Polisher Name Role Phone Ricco Andrew MD Unavailable [phone] Fawn Ramon DPM Unavailable [phone] Chris Aden MD Primary Care Provider [phone] Chris Aden MD Unavailable Reason for Referral * Home Health Care (Routine) - Closed Specialty Diagnoses / Procedures Referred By Ethel oneil Referred To Contact Home Health Services Diagnoses Debility Generalized weakness Evelin Blanco APRN-CNP [address] [place] [address] [facility] Scheduling [address] [place] [address] Referral ID Status Reason Start Date Expiration Date V isits Requested Visits Authorized [id number] Closed Specialty Services Required 04/09/2022 04/09/2023 999 999 PRESIDENT INVESTOR RELATIONS Reason for Visit * Reason Comments Transitional Care For Covid Encounter Details Date Type Department Care Team (Late st Contact Info) Description 04/09/2022 2:40 PM VICE PRESIDENT INVESTOR RELATIONS Office Visit [facility] - Family Medicine [address] [place] [address] Evelin Blanco APRN-CNP [address] [address] Debility (Primary Dx); Generalized weakness; Type 2 [...] Comments Blood Pressure 94/62 04/09/2022 2:48 PM VICE PRESIDENT INVESTOR RELATIONS Pulse 89 04/09/2022 2:48 PM VICE PRESIDENT INVESTOR RELATIONS Temperature 36.4 ??C (97.6 ??F) 04/09/2022 2:48 PM CS T Respiratory Rate 18 04/09/2022 2:48 PM VICE PRESIDENT INVESTOR RELATIONS Oxygen Saturation 96% 04/09/2022 2:48 PM VICE PRESIDENT INVESTOR RELATIONS Inhaled Oxygen Concentration - - Weight 69.1 kg (152 lb 6.4 oz) 04/09/2022 2:48 P M VICE PRESIDENT INVESTOR RELATIONS Height 170.2 cm (5' 7.01) 04/09/2022 2:48 PM CS T Body Mass Index 23.86 04/09/2022 2:48 PM VICE PRESIDENT INVESTOR RELATIONS documented in this encounter Patient Instructions * Patient Instructions* Evelin Blanco APRN-CNP - 04/09/2022 3:23 PM VICE PRESIDENT INVESTOR RELATIONS Expect a call from home care. I will also send a copy to [facility] if I can get contact information. Try the miralax. Use the nebulizer only if needed. PRESIDENT INVESTOR RELATIONS documented in this encounter Progress Notes * [...] ??? Trigger finger HPI: Pt was in [facility] in [place] with Covid on 03-20-2023 and returned home on 03-25-2022. Didnot do well per daughter, gave him rx, supportive care. On 03-25-2022 he went to [facility] in [place], [place] for Rehab and was in isolation. [...] for health treatment, or for attendance at congregational events; absences from home for nonmedical reasons [...] 12 visits I spoke with Jessica at [facility] and faxed order to them, received confirmation [...] these issues and agrees with the plan. PRESIDENT INVESTOR RELATIONS documented in this encounter Plan of Treatment Upcoming Encounters Date Type Department Care Team (Late st Contact Info) Description 04/07/2024 10:00 AM VICE PRESIDENT INVESTOR RELATIONS Office Visit [facility] [id number] [place] [address] [place] [phone] Evelin Blanco APRN-CNP [id number] [place] [address] [phone] 06/06/2024 2:00 PM CDT Office Visit [facility] [phone] [place] [address] [place] [address] [phone] Scheduled Referrals Name Type Priority Associated Diagnoses Orde r Schedule AMB REFERRAL TO HOME HEALTH CARE Outpatient Referral Routine Debility Generalized weakness Ordered: 04/09/2022 documented as of this encounter Goals Goal Patient Goal Type Associated Problems Recent Progress Patient-Stated? Author Blood Pressure < 140/90 Blood Pressure 96/68(2023 2:34 PM VICE PRESIDENT INVESTOR RELATIONS) Rere Vargas Note: Caring for Your High [...] Related Tools, and click ? HBP Trackers.? 1-632-KYL-USA-1 or ( ) National Heart, Lung and Blood [place]: http://www.nhlbi.nih.gov/health/infoctr/index.htm Blood Pressure < 140/90 Blood Pressure 96/68(2023 2:34 PM VICE PRESIDENT INVESTOR RELATIONS) Rere Vargas Note: Caring for Your High [...] Related Tools, and click ? HBP Trackers.? 9-350-KIL-USA-1 or ( ) National Heart, Lung and Blood [place]: http://www.nhlbi.nih.gov/health/infoctr/index.htm Blood Pressure < 140/90 Blood Pressure 96/68(2023 2:34 PM VICE PRESIDENT INVESTOR RELATIONS) Cassie Parks Note: Caring for Your High [...] Related Tools, and click ? HBP Trackers.? 5-787-ILU-USA-1 or ( ) National Heart, Lung and Blood [place]: http://www.nhlbi.nih.gov/health/infoctr/index.htm Exercise 5X per week (30 min [...] diabetes: ? ? [place] Diabetes Association: www.diabetes.org 4-907-YTPTKHNL ( ) ? ? [place] Diabetes Association-Support group line: www.professional.diabetes.org ? ? [place] Heart Association: www.heart.org or 0-521-CDF-USA-1 ( ) [employer] MyPlate: www.SkillSlatemyplate.gov Have labs drawn Lifestyle Rere Vargas Note: [...] COVID-19 documented in this encounter Care Teams Watch Case Polisher Relationship Specialty [place] [address] [place] [address] PCP - General Internal Medicine 01/26/22 [place] [address] [place] [phone] PCP - [facility] 02/19/22 [place] [address] [facility] [address] [place] [address] Ophthalmology 04/06/16 [place] Ram[place] [address] [place], [place] [phone] Podiatry 01/24/21 documented as of this encounter
--- OUTSIDE RECORDS SUMMARY | 2024-04-03 02:26 | XMS_ITS | Encounter Summary ---
Author Organization [facility] Address [address] [facility] [place] [address] Care Team Providers Care Early Childhood Aide Classroom Name Role Phone Ricco Andrew MD Unavailable [phone] Rosana Solo MD Unavailable [phone] Fawn Ramon DPM Unavailable [phone] Reason for Visit * Reason Comments Follow-up Diabetes Medicare Subsequent Annual Wellness Visi t Encounter Details Date Type Department Care Team (Late st Contact Info) Description 03/04/2021 2:00 PM SHEET HANGER Office Visit [facility] - Family Medicine [address] [place] [address] Rosana Solo MD [address] [address] Routine general medical examination at [...] Comments Blood Pressure 120/60 03/04/2021 1:58 PM SHEET HANGER Pulse 78 03/04/2021 1:58 PM SHEET HANGER Temperature 36.7 ??C (98 ??F) 03/04/2021 1:58 PM SHEET HANGER Respiratory Rate 18 03/04/2021 1:58 PM SHEET HANGER Oxygen Saturation 100% 03/04/2021 1:58 PM SHEET HANGER Inhaled Oxygen Concentration - - Weight 71.2 kg (157 lb) 03/04/2021 1:58 PM SHEET HANGER Height 175.3 cm (5' 9) 03/04/2021 1:58 PM SHEET HANGER Body Mass Index 23.18 03/04/2021 1:58 PM SHEET HANGER documented in this encounter Patient Instructions * Patient Instructions* Rosana Solo MD - 03/04/2021 2:47 PM SHEET HANGER Recommendations For A Healthy Lifestyle Get labs done fasting in the next few weeks. Nothing to eat or drink, other than water, for at least 8 hours before having drawn. Orders were sent electronically to [facility] Directions to [facility]: [facility] is located on the 1st floor of this building. Please take the elevators down to the lobby.As soon as you exit the elevator, take an immediate left out of the elevators and then go left downthe first hallway. [facility] is located in [address] on the [...] a diabetic diet, please go to the [place] Diabetes Association website at www.diabetes.org and select [...] minutes if trying to lose weight) The [place] College of Sports Medicine recommends [...] Medicine) Rosana Solo MD as PCP - [facility] Ricco Johnson MD (Ophthalmology) Fawn Ramon DPM [...] you. ?? Keep up-to-date Healthcare Power of Trailer Sections Assembler and Living Will documents with our office. In any emergency or unexpected hospitalization, these documents will then be visible for care providers to honor your wishes. Patient Education T HANGER documented in this encounter Progress Notes * [...] to questions 6 and/or 7 is yes. T HANGER * Rosana Solo MD - 03/04/2021 2:30 [...] - on Namenda. Primarily short-term impairment. . 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 Still likes to sleep. [...] given to the patient. Rosana Solo MD T HANGER documented in this encounter Plan of Treatment Upcoming Encounters Date Type Department Care Team (Late st Contact Info) Description 04/07/2024 10:00 AM SHEET HANGER Office Visit [facility] [id number] [place] [address] Evelin Blanco APRN-REHAB ASSISTANT [phone] [place] [address] 06/06/2024 2:00 PM CDT Office Visit [facility] [address] [place] [address] Chris [place] [id number] [place] [phone] documented as of this encounter Goals Goal Patient Goal Type Associated Problems Recent Progress Patient-Stated? Author Blood Pressure < 140/90 Blood Pressure 96/68(2023 2:34 PM SHEET HANGER) Rere Vargas Note: Caring for Your High [...] Related Tools, and click ? HBP Trackers.? 9-850-YHE-USA-1 or ( ) National Heart, Lung and Blood [place]: http://www.nhlbi.nih.gov/health/infoctr/index.htm Blood Pressure < 140/90 Blood Pressure 96/68(2023 2:34 PM SHEET HANGER) Rere Vargas Note: Caring for Your High [...] Related Tools, and click ? HBP Trackers.? 8-168-CVH-USA-1 or ( ) National Heart, Lung and Blood [place]: http://www.nhlbi.nih.gov/health/infoctr/index.htm Blood Pressure < 140/90 Blood Pressure 96/68(2023 2:34 PM SHEET HANGER) Cassie Parks Note: Caring for Your High [...] Related Tools, and click ? HBP Trackers.? 3-675-RCC-USA-1 or ( ) National Heart, Lung and Blood [place]: http://www.nhlbi.nih.gov/health/infoctr/index.htm Exercise 5X per week (30 min per time) Exercise Rere Vargas Note: The [place] [employer] [...] diabetes: ? ? [place] Diabetes Association: www.diabetes.org 2-570-KOBIFBJU ( ) ? ? [place] Diabetes Association-Support group line: www.professional.diabetes.org ? ? [place] Heart Association: www.heart.org or 7-401-VWG-USA-1 ( ) [employer] MyPlate: www.Picwingmyplate.gov Have labs drawn Lifestyle No Rere Kaufman [...] substances that can build up in the carrnaza of your arteries. 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, without long-term current use of insulin, macular edema presence unspecified, unspecified laterality, unspecified retinopathy severity (HCC) HEMOGLOBIN A1C W EAG Routine 03/04/2021 3:29 PM SHEET HANGER Type 2 diabetes mellitus with stage 3a chronic kidney disease, 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, 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, without long-term current use of insulin, macular edema presence unspecified, unspecified laterality, unspecified retinopathy severity (HCC) TSH REFLEX FREE T4 03/04/2021 3: 29 PM SHEET HANGER MICROALB/CREAT RATIO URINE RANDOM PANEL Routine 03/04/2021 3:29 PM SHEET HANGER Type 2 diabetes mellitus with stage 3a chronic kidney disease, 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, 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, without long-term current use of insulin, macular edema presence unspecified, unspecified laterality, unspecified retinopathy severity (HCC) CBC W AUTO DIFFERENTIAL Routine 03/04/2021 3:29 PM SHEET HANGER Type 2 diabetes mellitus with stage 3a chronic kidney disease, 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, 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, without long-term current use of insulin, macular edema presence unspecified, unspecified laterality, unspecified retinopathy severity (HCC) COMPREHENSIVE METABOLIC PANEL Routine 03/04/2021 3:29 PM SHEET HANGER Type 2 diabetes mellitus with stage 3a chronic kidney disease, 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, 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 [place] [phone] Rosana Solo MD LAB - CHEMISTRY MELYSSA CHAHAL Performing Organization Address [facility] Co de Phone Number [facility] ACCOUNT BILL [address] [place] [address] * TSH (03/04/2021 3:29 PM SHEET HANGER) Pathologist [facility] TSH 2.0787 0.35 - 4.94 uIU/mL [facility] ACCOUNT BILL Comment:FASTING Blood BLOOD SPECIMEN / Unknown 03/04/2021 3:29 PM SHEET HANGER 03/04/2021 Narrative Resulting Agency Comment Lab Testing performed at: [place] [address] [address] ?? [place] [phone] Rosana Solo MD LAB - CHEMISTRY MELYSSA CHAHAL Performing Organization Address City/[facility]/ZIP Co de Phone Number [facility] ACCOUNT BILL [address] [place] [address] * MICROALB/CREAT RATIO URINE RANDOM PANEL (03/04/2021 3:29 PM SHEET HANGER) Pathologist [facility] Creatinine Urine 139.76 mg/dL [facility] ACCOUNT BILL Microalbumin Urine <0.5 mg/dL [facility] ACCOUNT BILL Microalbumin/Cre atinine Ratio NOT NEEDED mg/g [facility] ACCOUNT BILL Comment: Unable to calculate result since non-numeric result obtained for component test. FASTING Ancillary determined the test is not needed. Urine URINE SPECIMEN OBTAINED BY CLEAN CATCH PROCEDURE / Unknown 03/04/2021 3:29 PM SHEET HANGER 03/04/2021 Narrative Resulting Agency Comment Lab Testing performed at: [address] ?? [place] [phone] Rosana Solo MD LAB - URINE CHEMISTR Y ORDERABLES Performing Organization Address [facility] de Phone Number [facility] ACCOUNT BILL [address] [place] [address] * LIPID PROFILE REFLEX LDL DIRECT (03/04/2021 3:29 PM SHEET HANGER) Cholesterol 160 <200 mg/dL [facility] ACCOUNT BILL [...] BLOOD SPECIMEN / Unknown 03/04/2021 3:29 PM SHEET HANGER 03/04/2021 Narrative Resulting Agency Comment Lab Testing performed at: [place] [address] [address] ?? [facility] [phone] Rosana Solo MD LAB - CHEMISTRY ORDE RABLES Performing Organization Address [facility] de Phone Number [facility] ACCOUNT BILL [address] [place] [address] * (ABNORMAL) CBC WITH DIFFERENTIAL (03/04/2021 3:29 PM SHEET HANGER) WBC 6.2 4.4 - 10.7 x10E9/L [facility] [...] BLOOD SPECIMEN / Unknown 03/04/2021 3:29 PM SHEET HANGER 03/04/2021 Narrative Resulting Agency Comment Lab Testing performed at: [facility] [address] [facility] ?? [place] [phone] Rosana Solo MD LAB - HEMATOLOGY ORD ERABLES [facility] ACCOUNT BILL [address] [place] [address] * (ABNORMAL) COMPREHENSIVE METABOLIC PANEL (03/04/2021 3:29 PM SHEET HANGER) Glucose 119(H) 70 - 105 mg/dL [facility] [...] BLOOD SPECIMEN / Unknown 03/04/2021 3:29 PM SHEET HANGER 03/04/2021 Narrative Resulting Agency Comment Lab Testing performed at: [address] ?? [facility] [phone] Rosana Solo MD LAB - CHEMISTRY MELYSSA CHAHAL [facility] ACCOUNT BILL [address] [place] [address] * (ABNORMAL) HEMOGLOBIN A1C W EAG (03/04/2021 3:29 PM SHEET HANGER) Hemoglobin A1c 6.4(H) 4.2 - 5.6 % [facility] ACCOUNT BILL Estimated Average Glucose 137 mg/dL [facility] ACCOUNT BILL Comment: The following cutoff levels are recommended by [place] Diab etes Association. A1c ??> 6.5% : [...] BLOOD SPECIMEN / Unknown 03/04/2021 3:29 PM SHEET HANGER 03/04/2021 Narrative Resulting Agency Comment Lab Testing performed at: [facility] [id number] [place] [address] ?? [place] [phone] Rosana Solo MD LAB - CHEMISTRY MELYSSA CHAHAL [facility] ACCOUNT BILL [address] [place] [address] documented in this encounter Visit Diagnoses Diagnosis [...] disorder documented in this encounter Care Teams Early Childhood Aide Classroom Relationship Specialty Start Date End Date Rosana Solo MD [address] [facility] [address] [place] [address] PCP - Attributed-[facility] 02/19/19 [place] [address] [facility] [address] [facility] [address] [place] [address] Ophthalmology 04/06/16 Fawn Ramon DPM [address] [facility] [address] [place] [address] Podiatry 01/24/21 documented as of this encounter
--- OUTSIDE RECORDS SUMMARY | 2024-04-03 02:26 | XMS_ITS | Encounter Summary ---
Author Organization [facility] Address [address] [facility] [facility] [place] [address] Care Team Providers Care Printing Roller Polisher Name Role Phone Ricco Andrew MD Unavailable Fawn Ramon DPM Unavailable [phone] Chris Aden MD Primary Care Provider [phone] Chris Aden MD Unavailable Reason for Visit [...] st Contact Info) Description 02/26/2023 1:20 PM COMMERCIAL ROOFING ESTIMATOR Office Visit [facility] - Family Medicine [address] [place] [address] Evelin Blanco, ACID OPERATOR-DIVISION CHIEF [address] [place] [address] Acute cystitis without hematuria (Primary [...] Comments Blood Pressure 116/62 02/26/2023 1:31 PM COMMERCIAL ROOFING ESTIMATOR Pulse 89 02/26/2023 1:31 PM COMMERCIAL ROOFING ESTIMATOR Temperature 36.7 ??C (98 ??F) 02/26/2023 1:31 PM COMMERCIAL ROOFING ESTIMATOR Respiratory Rate 18 02/26/2023 1:31 PM COMMERCIAL ROOFING ESTIMATOR Oxygen Saturation 99% 02/26/2023 1:31 PM COMMERCIAL ROOFING ESTIMATOR Inhaled Oxygen Concentration - - Weight 71.2 kg (157 lb) 02/26/2023 1:31 PM COMMERCIAL ROOFING ESTIMATOR Height 170.2 cm (5' 7) 02/26/2023 1:31 PM COMMERCIAL ROOFING ESTIMATOR Body Mass Index 24.59 02/26/2023 1:31 PM COMMERCIAL ROOFING ESTIMATOR documented in this encounter Patient Instructions * Patient Instructions* Evelin Blanco APRN-CNP - 02/26/2023 1:54 PM COMMERCIAL ROOFING ESTIMATOR We are checking a urinalysis with culture about 3 days after the antibiotic is completed. I will contact you with results. ERCIAL ROOFING ESTIMATOR documented in this encounter Progress Notes * [...] was in the ER on 02-16-2023 at [facility] in [place] and they did not find any UTI [...] these issues and agrees with the plan. ERCIAL ROOFING ESTIMATOR documented in this encounter Plan of Treatment Upcoming Encounters Date Type Department Care Team (Late st Contact Info) Description 04/07/2024 10:00 AM COMMERCIAL ROOFING ESTIMATOR Office Visit [facility] [id number] [place] [address] [address] [place] [address] Evelin Blanco APRN-CNP [address] [place] [address] 06/06/2024 2:00 PM CDT Office Visit [facility] [id number] [place] [address] [address] [place], [place] [id number] [place] [address] [facility] [phone] documented as of this encounter Goals Goal Patient Goal Type Associated Problems Recent Progress Patient-Stated? Author Blood Pressure < 140/90 Blood Pressure 96/68(2023 2:34 PM COMMERCIAL ROOFING ESTIMATOR) Rere Vargas Note: Caring for Your High [...] Related Tools, and click ? HBP Trackers.? 1-788-MPK-USA-1 or ( ) National Heart, Lung and Blood [place]: http://www.nhlbi.nih.gov/health/infoctr/index.htm Blood Pressure < 140/90 Blood Pressure 96/68(2023 2:34 PM COMMERCIAL ROOFING ESTIMATOR) Rere Vargas Note: Caring for Your High [...] Related Tools, and click ? HBP Trackers.? 7-323-UMD-USA-1 or ( ) National Heart, Lung and Blood [place]: http://www.nhlbi.nih.gov/health/infoctr/index.htm Blood Pressure < 140/90 Blood Pressure 96/68(2023 2:34 PM COMMERCIAL ROOFING ESTIMATOR) Cassie Parks Note: Caring for Your High [...] Related Tools, and click ? HBP Trackers.? 2-530-EQP-USA-1 or ( ) National Heart, Lung and Blood [place]: http://www.nhlbi.nih.gov/health/infoctr/index.htm Exercise 5X per week (30 min [...] diabetes: ? ? [place] Diabetes Association: www.diabetes.org 0-419-ZTKPZYYJ ( ) ? ? [place] Diabetes Association-Support group line: www.professional.diabetes.org ? ? [place] Heart Association: www.heart.org or 0-333-HRV-USA-1 ( ) [employer] MyPlate: www.Zazoommyplate.gov Have labs drawn Lifestyle No Kaufman, Lacheina [...] CATCH PROCEDURE / Unknown 03/02/2023 Evelin Blanco APRN-DIVISION CHIEF LAB - MICROBIOL OGY ORDERABLES Performing Organization Address City/[facility]/ZIP Co de Phone Number OTHER LAB * URINALYSIS REFLEX TO MICROSCOPIC NO CULTURE (03/01/2023) Urine URINE SPECIMEN OBTAINED BY CLEAN CATCH PROCEDURE / Unknown 03/01/2023 Evelin Blanco APRN-DIVISION CHIEF LAB - URINALYSI S ORDERABLES OTHER LAB documented in this encounter Visit Diagnoses Diagnosis Acute cystitis without hematuria- Primary Acute cystitis documented in this encounter Care Teams Printing Roller Polisher Relationship Specialty [place] [address] [place] [address] PCP - General Internal Medicine 01/26/22 [place] [address] [place] [phone] PCP - [facility] 02/19/22 [place] [address] [facility] [address] [place] [address] Ophthalmology 04/06/16 Fawn Ramon DPM [address] [place] [address] Podiatry 01/24/21 documented as of this encounter
--- OUTSIDE RECORDS SUMMARY | 2024-04-03 02:26 | XMS_ITS | Encounter Summary ---
Author Organization [facility] Address [address] [place] [address] Care Team Providers Care Banquet Manager Name Role Phone Ricco Andrew MD Unavailable [phone] Fawn Ramon DPM Unavailable [phone] Chris Aden MD Primary Care Provider [phone] Chris Aden MD Unavailable Reason for Visit * Reason Comments Refill Request Encounter Details Date Type Department Care Team (Late st Contact Info) Description 10/23/2022 Refill [facility] - Family Medicine [address] [place] [address] Chris Aden MD [address] [place] [address] Refill Request Social History Tobacco Use [...] st Contact Info) Description 04/07/2024 10:00 AM ALGEBRA TUTOR Office Visit [facility] [id number] [place] [address] Evelin Blanco APRN-DENIS [phone] [place] [address] 06/06/2024 2:00 PM CDT Office Visit [facility] [id number] [place] [address] [place] [id number] [place] [address] documented as of this encounter Goals Goal Patient Goal Type Associated Problems Recent Progress Patient-Stated? Author Blood Pressure < 140/90 Blood Pressure 96/68(2023 2:34 PM ALGEBRA TUTOR) Rere Vargas Note: Caring for Your High [...] Related Tools, and click ? HBP Trackers.? 3-504-MUK-USA-1 or ( ) National Heart, Lung and Blood [place]: http://www.nhlbi.nih.gov/health/infoctr/index.htm Blood Pressure < 140/90 Blood Pressure 96/68(2023 2:34 PM ALGEBRA TUTOR) Rere Vargas Note: Caring for Your High [...] Related Tools, and click ? HBP Trackers.? 4-670-EAI-USA-1 or ( ) National Heart, Lung and Blood [place]: http://www.nhlbi.nih.gov/health/infoctr/index.htm Blood Pressure < 140/90 Blood Pressure 96/68(2023 2:34 PM ALGEBRA TUTOR) Cassie Parks Note: Caring for Your High [...] Related Tools, and click ? HBP Trackers.? 2-239-OKU-USA-1 or ( ) National Heart, Lung and Blood [place]: http://www.nhlbi.nih.gov/health/infoctr/index.htm Exercise 5X per week (30 min [...] diabetes: ? ? [place] Diabetes Association: www.diabetes.org 6-915-GWSZHIEE ( ) ? ? [place] Diabetes Association-Support group line: www.professional.diabetes.org ? ? [place] Heart Association: www.heart.org or 9-868-LYV-USA-1 ( ) [employer] MyPlate: www.Therapeutic Monitoring Servicesmyplate.gov Have labs drawn Lifestyle Rere Vargas [...] on filedocumented in this encounter Care Teams Banquet Manager Relationship Specialty [place] [address] [place] [address] PCP - General Internal Medicine 01/26/22 [place] [address] [address] [address] PCP - Attributed-[facility] 02/19/22 [place] [address] [facility] [address] [facility] [address] [place] [address] Ophthalmology 04/06/16 Fawn Ramon DPM [address] [place] [address] Podiatry 01/24/21 documented as of this encounter
--- OUTSIDE RECORDS SUMMARY | 2024-04-03 02:26 | XMS_ITS | Encounter Summary ---
Author Organization [facility] Address [address] [facility] [place] [address] Care Team Providers Care Tax Assistant Name Role Phone Ricco Andrew MD Unavailable [phone] Rosana Solo MD Unavailable [phone] Fawn Ramon Kae Unavailable [phone] Reason for Visit * Reason Onset Date Comments Glucose Meter Readings 07/22/2021 Encounter Details Date Type Department Care Team (Late st Contact Info) Description 07/22/2021 Telephone [facility] - Family Medicine [address] [place] [address] Rosana Solo MD [address] [facility] [address] [place] [address] Glucose Meter Readings Social History [...] etc..) Please contact patient's daughter Cassie at: [phone]. * Telephone Encounter - Rosana Solo MD - 07/22/2021 12:56 PM CDT I'd just wait until sees JOB DEVELOPER tomorrow before making adjustment as if we [...] glucose level until his appt tomorrow with JOB DEVELOPER. Pt has been taking glipizide as directed documented in this encounter Plan of Treatment Upcoming Encounters Date Type Department Care Team (Late st Contact Info) Description 04/07/2024 10:00 AM MANAGER ENERGY Office Visit [facility] [address] [facility] [address] [address] [place], [place] [id number] Evelin Blanco APRN-CNP [address] [facility] [address] [place] [address] 06/06/2024 2:00 PM CDT Office [facility] [address] [facility] [address] [place] [address] [place] [address] [facility] [address] [place] [address] documented as of this encounter Goals Goal Patient Goal Type Associated Problems Recent Progress Patient-Stated? Author Blood Pressure < 140/90 Blood Pressure 96/68(2023 2:34 PM MANAGER ENERGY) Rere Vargas Note: Caring for Your High [...] Where can I go for more information? [place] Heart Association National Center: http://www.americanheart.org 1. In the top header, click ? Conditions? . 2. In the top header, click ? high blood pressure.? 3. For a printable blood pressure tracker, scroll toward the bottom of the page to Related Tools, and click ? HBP Trackers.? 5-337-DEE-USA-1 or ( ) National Heart, Lung and Blood [place]: http://www.nhlbi.nih.gov/health/infoctr/index.htm Blood Pressure < 140/90 Blood Pressure 96/68(2023 2:34 PM MANAGER ENERGY) Rere Vargas Note: Caring for Your High [...] Where can I go for more information? Vincent[place] Heart Association National Center: http://www.americanheart.org 1. In the top header, click ? Conditions? . 2. In the top header, click ? high blood pressure.? 3. For a printable blood pressure tracker, scroll toward the bottom of the page to Related Tools, and click ? HBP Trackers.? 8-009-OCZ-USA- or ( ) National Heart, Lung and Blood [place]: http://www.nhlbi.nih.gov/health/infoctr/index.htm Blood Pressure < 140/90 Blood Pressure 96/68(2023 2:34 PM MANAGER ENERGY) Susan Marie Cassie F Note: Caring for [...] Where can I go for more information? Vincent[place] Heart Association National Center: http://www.americanheart.org 1. In the top header, click ? Conditions? . 2. In the top header, click ? high blood pressure.? 3. For a printable blood pressure tracker, scroll toward the bottom of the page to Related Tools, and click ? HBP Trackers.? 0-511-CKH-USA- or ( ) National Heart, Lung and Blood [place]: http://www.nhlbi.nih.gov/health/infoctr/index.htm Exercise 5X per week (30 min per time) Exercise No Rere Kaufman Note: The [place] College of Sports Medicine recommends all adults [...] how to manage your diabetes: ? ? [place] Diabetes Association: www.diabetes.org 2-322-VJWMUUXJ ( ) ? ? Vincent[place] Diabetes Association-Support group line: www.professional.diabetes.org ? ? Vincent[place] Heart Association: www.heart.org or 4-753-BXG-USA-1 ( ) [employer] MyPlate: www.MyLabYogi.commyplate.gov Have labs drawn Lifestyle Rere Vargas Note: [...] on filedocumented in this encounter Care Teams Tax Assistant Relationship Specialty Start Date End Date Rosana Solo MD [address] [email or web address] [address] [place] [address] PCP - Attributed-[facility] 02/19/19 [place] [address] [facility] [[email or web address] [address] [place] [address] Ophthalmology 04/06/16 [place] [address] [facility] [[email or web address] [address] [place] [address] Podiatry 01/24/21 documented as of this encounter
--- OUTSIDE RECORDS SUMMARY | 2024-04-03 02:26 | XMS_ITS | Encounter Summary ---
Author Organization [facility] Address [address] [facility] [place] [address] Care Team Providers Care Fast Food Worker Name Role Phone Ricco Andrew MD Unavailable [phone] Fawn Raomn DPM Unavailable Chris Aden MD Primary Care Provider [phone] Chris Aden MD Unavailable Reason for Visit * Reason Comments Diabetic Foot Care Encounter Details Date Type Department Care Team (Latest Contact Info) Description 01/05/2023 1:40 PM CDT Office Visit [facility] - Podiatry [address] [address] Fawn Ramon DPM [address] [address] Injury of toenail, initial encounter [...] she may also send you to a maintenance planner (foot doctor) for treatment. The goal of [...] healthcare provider may recommend you see a maintenance planner, or an orthopedic or vascular surgeon. These [...] Reports of taking the pt to the [facility] ED, and had the the [...] neuropathy, without long-term current use of insulin ([facility]) ??? Overriding toe, unspecified laterality ??? Hallux [...] st Contact Info) Description 04/07/2024 10:00 AM TRAINING AND DEVELOPMENT COORDINATOR [facility] [id number] [place] [address] [address] [place] [address] Eevlin Blanco APRN-CARGO MATE [address] [address] 06/06/2024 2:00 PM CDT Office Visit [facility] [id number] [place] [address] [address] [place] [address] [place] [id number] [place] [address] [phone] documented as of this encounter Goals Goal Patient Goal Type Associated Problems Recent Progress Patient-Stated? Author Blood Pressure < 140/90 Blood Pressure 96/68(2023 2:34 PM TRAINING AND DEVELOPMENT COORDINATOR) Rere Vargas Note: Caring for Your [...] Related Tools, and click ? HBP Trackers.? 0-328-AJY-USA-1 or ( ) National Heart, Lung and Blood [place]: http://www.nhlbi.nih.gov/health/infoctr/index.htm Blood Pressure < 140/90 Blood Pressure 96/68(2023 2:34 PM TRAINING AND DEVELOPMENT COORDINATOR) Rere Vargas Note: Caring for Your [...] Related Tools, and click ? HBP Trackers.? 5-754-ARF-USA-1 or ( ) National Heart, Lung and Blood [place]: http://www.nhlbi.nih.gov/health/infoctr/index.htm Blood Pressure < 140/90 Blood Pressure 96/68(2023 2:34 PM TRAINING AND DEVELOPMENT COORDINATOR) Cassie Parks Note: Caring for Your [...] Related Tools, and click ? HBP Trackers.? 4-356-RTU-USA-1 or ( ) National Heart, Lung and Blood [place]: http://www.nhlbi.nih.gov/health/infoctr/index.htm Exercise 5X per week (30 min [...] diabetes: ? ? [place] Diabetes Association: www.diabetes.org 6-054-EEXZIVIM ( ) ? ? English Diabetes Association-Support group line: www.professional.diabetes.org ? ? English Heart Association: www.heart.org or 7-743-QJL-USA-1 ( ) [employer] MyPlate: www.Rollstreammyplate.gov Have labs drawn Lifestyle Rere Vargas Note: [...] laterality documented in this encounter Care Teams Fast Food Worker Relationship Specialty [place] [address] [place] [address] PCP - General Internal Medicine 01/26/22 [place] [address] [place] [address] [address] PCP - Attributed-[facility] [place] 02/19/22 [place] [address] [facility] [address] [facility] [address] [place] [address] Ophthalmology 04/06/16 [place] [address] [facility] [address] [place] [address] Podiatry 01/24/21 documented as of this encounter
--- OUTSIDE RECORDS SUMMARY | 2024-04-03 02:26 | XMS_ITS | Encounter Summary ---
Author Organization [facility] Address [address] [place] [address] Care Team Providers Care Drop Board Worker Name Role Phone Ricco Andrew MD Unavailable [phone] Rosana Solo MD Unavailable [phone] Fawn Ramon DPM Unavailable [phone] Reason for Visit * Reason Comments ER UC Follow-up rt foot swelling Encounter Details Date Type Department Care Team (Late st Contact Info) Description 01/24/2021 2:30 PM CDT Office Visit [facility] - Family Medicine [id number] [place] [address] [address] [place] [address] Evelin Blanco APRN-CNP [address] [facility] [address] [place] [address] Local skin infection (Primary Dx); [...] 01-20-2021 for a hospital follow up from [facility] and was found to have elevated blood sugars and we were considering increasing the glucatrol but then his family complained of him being very sleep and he had pulled off the right 3rd toe nail and the toe and foot were, red, swollen and hot. He was sent back to [facility] ER and he did not have to [...] these issues and agrees with the plan. EAR WASTE PROCESS OPERATOR * Agustina Esqueda MA - 01/24/2021 3:03 PM CDT BP 118/60 (BP SITE: LEFT ARM, BP POSITION: SITTING, BP CUFF SIZE: 12) Temp 97.9 ??F (36.6 ??C) (Oral) Ht 1.753 m (5' 9) Wt 72.6 kg (160 lb) BMI 23.63 kg/m2 Pt is scheduled to have his Flu shot administered in 02/2021 EAR WASTE PROCESS OPERATOR documented in this encounter Plan of Treatment Upcoming Encounters Date Type Department Care Team (Late st Contact Info) Description 04/07/2024 10:00 AM NUCLEAR WASTE PROCESS OPERATOR Office Visit [facility] Family Medicine [address] [facility] [address] [place] [address] Evelin Blanco APRN-CNP [address] [facility] [address] [place] [address] 06/06/2024 2:00 PM CDT Office Visit [facility] Family Medicine [address] [facility] [address] [place] [address] [place] [address] [facility] [address] [place] [phone] documented as of this encounter Goals Goal Patient Goal Type Associated Problems Recent Progress Patient-Stated? Author Blood Pressure < 140/90 Blood Pressure 96/68(2023 2:34 PM NUCLEAR WASTE PROCESS OPERATOR) Rere Vargas Note: Caring for Your [...] Where can I go for more information? [place] Heart Association National Center: http://www.americanheart.org 1. In the top header, click ? Conditions? . 2. In the top header, click ? high blood pressure.? 3. For a printable blood pressure tracker, scroll toward the bottom of the page to Related Tools, and click ? HBP Trackers.? 6-297-DES-USA- or ( ) National Heart, Lung and Blood [place]: http://www.nhlbi.nih.gov/health/infoctr/index.htm Blood Pressure < 140/90 Blood Pressure 96/68(2023 2:34 PM NUCLEAR WASTE PROCESS OPERATOR) Rere Vargas Note: Caring for Your [...] Where can I go for more information? [place] Heart Association National Center: http://www.americanheart.org 1. In the top header, click ? Conditions? . 2. In the top header, click ? high blood pressure.? 3. For a printable blood pressure tracker, scroll toward the bottom of the page to Related Tools, and click ? HBP Trackers.? 5-265-RYG-USA-1 or ( ) National Heart, Lung and Blood [place]: http://www.nhlbi.nih.gov/health/infoctr/index.htm Blood Pressure < 140/90 Blood Pressure 96/68(2023 2:34 PM NUCLEAR WASTE PROCESS OPERATOR) Cassie Parks Note: Caring for Your [...] Where can I go for more information? [place] Heart Association National Center: http://www.americanheart.org 1. In the top header, click ? Conditions? . 2. In the top header, click ? high blood pressure.? 3. For a printable blood pressure tracker, scroll toward the bottom of the page to Related Tools, and click ? HBP Trackers.? 5-310-DLF-USA-1 or ( ) National Heart, Lung and Blood [place]: http://www.nhlbi.nih.gov/health/infoctr/index.htm Exercise 5X per week (30 min per time) Exercise Rere Vargas Note: The [place] College of Sports Medicine recommends all adults [...] how to manage your diabetes: ? ? [place] Diabetes Association: www.diabetes.org 9-812-AROJBDQW ( ) ? ? [place] Diabetes Association-Support group line: www.professional.diabetes.org ? ? [place] Heart Association: www.heart.org or 2-161-QUN-USA-1 ( ) [employer] MyPlate: www.QuantumSpheremyplate.gov Have labs drawn Lifestyle No Rere Kaufman [...] (HCC) documented in this encounter Care Teams Drop Board Worker Relationship Specialty Start Date End Date Rosana Solo MD [address] [facility] [facility] [address] [place] [address] PCP - Attributed-[facility] 02/19/19 [place] [address] [facility] [address] [place] [address] Ophthalmology 04/06/16 Fawn Ramon DPM [address] [facility] [address] [place] [address] Podiatry 01/24/21 documented as of this encounter
--- OUTSIDE RECORDS SUMMARY | 2024-04-03 02:26 | XMS_ITS | Encounter Summary ---
Author Organization [facility] Address [address] [place] [address] Care Team Providers Care Glass Silverer Name Role Phone Ricco Andrew MD Unavailable [phone] Rosana Solo MD Unavailable [phone] Fawn Ramon DPM Unavailable [phone] Encounter Details Date Type Department Care Team [...] st Contact Info) Description 04/07/2024 10:00 AM OUT AND OUT CIGAR MAKER HAND Office Visit [facility] [address] [place] [address] [place] [address] Samantha Blancoecca, RESEARCH FELLOW-MICROGRAPHICS SERVICES SUPERVISOR [address] [facility] [address] [place] [address] 06/06/2024 2:00 PM CDT Office Visit [facility] [address] [facility] [address] [place] [address] [place] [address] [facility] [address] [place] [address] documented as of this encounter Goals Goal Patient Goal Type Associated Problems Recent Progress Patient-Stated? Author Blood Pressure < 140/90 Blood Pressure 96/68(2023 2:34 PM OUT AND OUT CIGAR MAKER HAND) Rere Vargas Note: Caring for Your High [...] Related Tools, and click ? HBP Trackers.? 7-202-WAPUSA- or ( ) National Heart, Lung and Blood [place]: http://www.nhlbi.nih.gov/health/infoctr/index.htm Blood Pressure < 140/90 Blood Pressure 96/68(2023 2:34 PM OUT AND OUT CIGAR MAKER HAND) Rere Vargas Note: Caring for Your High [...] Related Tools, and click ? HBP Trackers.? 7-997-NFU-USA- or ( ) National Heart, Lung and Blood [place]: http://www.nhlbi.nih.gov/health/infoctr/index.htm Blood Pressure < 140/90 Blood Pressure 96/68(2023 2:34 PM OUT AND OUT CIGAR MAKER HAND) Cassie Parks Note: Caring for Your High [...] Related Tools, and click ? HBP Trackers.? 1-780-DKJ-USA-1 or ( ) National Heart, Lung and Blood [place]: http://www.nhlbi.nih.gov/health/infoctr/index.htm Exercise 5X per week (30 min per time) Exercise Rere Vargas Note: The [place] College of Sports [...] ? ? [place] Diabetes Association: www.diabetes.org 3-258-ASYOVXUR ( ) ? ? [place] Diabetes Association-Support group line: www.professional.diabetes.org ? ? [place] Heart Association: www.heart.org or 9-744-DQU-USA-1 ( ) Typesafe MyPlate: www.Cookman Enterprisesmyplate.gov Have labs drawn Lifestyle Rere Vargas Note: [...] on filedocumented in this encounter Care Teams Glass Silverer Relationship Specialty Start Date End Date Rosana Solo MD [address] [facility] [address] [place] [address] PCP - Attributed-[facility] 02/19/19 [place] [address] [facility] [address] [facility] [address] [place] [address] Ophthalmology 04/06/16 [place] Ram[place] [address] [place] [address] Podiatry 01/24/21 documented as of this encounter
--- OUTSIDE RECORDS SUMMARY | 2024-04-03 02:26 | XMS_ITS | Encounter Summary ---
Author Organization [facility] Address [address] [facility] [place] [address] Care Team Providers Care Delivery Technician Name Role Phone Ricco Andrew MD Unavailable [phone] Rosana Solo MD Unavailable [phone] Fawn Ramon DPM Unavailable [phone] Reason for Visit * Reason Comments Refill Request Encounter Details Date Type Department Care Team (Late st Contact Info) Description 08/18/2021 Refill [facility] - Family Medicine [address] [facility] [address] [place] [address] Evelin Blanco, [facility] [address] [facility] [address] [place] [address] Refill Request Social History Tobacco [...] st Contact Info) Description 04/07/2024 10:00 AM SYRUP MIXER Office Visit [facility] [id number] [place] [address] Evelin Blanco, SERVICE ORDER DISPATCHER-EMAIL PRODUCER [id number] [place] [address] 06/06/2024 2:00 PM CDT Office Visit [facility] [address] [place] [address] [place]ris Aden [place] [id number] [place] [address] documented as of this encounter Goals Goal Patient Goal Type Associated Problems Recent Progress Patient-Stated? Author Blood Pressure < 140/90 Blood Pressure 96/68(2023 2:34 PM SYRUP MIXER) Rere Vargas Note: Caring for Your High [...] Related Tools, and click ? HBP Trackers.? 5-182-MXA-USA-1 or ( ) National Heart, Lung and Blood [place]: http://www.nhlbi.nih.gov/health/infoctr/index.htm Blood Pressure < 140/90 Blood Pressure 96/68(2023 2:34 PM SYRUP MIXER) Rere Vargas Note: Caring for Your High [...] Related Tools, and click ? HBP Trackers.? 8-103-ZFS-USA-1 or ( ) National Heart, Lung and Blood [place]: http://www.nhlbi.nih.gov/health/infoctr/index.htm Blood Pressure < 140/90 Blood Pressure 96/68(2023 2:34 PM SYRUP MIXER) Cassie Parks Note: Caring for Your High [...] Related Tools, and click ? HBP Trackers.? 6-175-YWO-USA-1 or ( ) National Heart, Lung and Blood [place]: http://www.nhlbi.nih.gov/health/infoctr/index.htm Exercise 5X per week (30 min per time) Exercise No Rere Kaufman Note: The [place] College of Sports Medicine [...] diabetes: ? ? [place] Diabetes Association: www.diabetes.org 8-883-WGZJQGRY ( ) ? ? [place] Diabetes Association-Support group line: www.professional.diabetes.org ? ? [place] Heart Association: www.heart.org or 4-821-MCF-USA-1 ( ) OneDoc MyPlate: www.HealthWavemyplate.gov Have labs drawn Lifestyle No Rere Kaufman [...] on filedocumented in this encounter Care Teams Delivery Technician Relationship Specialty Start Date End Date Rosana Solo MD [address] [facility] [address] [place] [address] PCP - Attributed-[facility] 02/19/19 [place] [address] [facility] [address] [facility] [address] [place] [address] Ophthalmology 04/06/16 Fawn Ramon DPM [address] [place] [address] Podiatry 01/24/21 documented as of this encounter
--- OUTSIDE RECORDS SUMMARY | 2024-04-03 02:26 | XMS_ITS | Encounter Summary ---
Author Organization [facility] Address [address] [place] [address] Care Team Providers Care Customer Greeter Name Role Phone Ricco Andrew MD Unavailable [phone] Fawn Ramon DPM Unavailable Crhis Aden MD Primary Care Provider [phone] Chris Aden MD Unavailable Reason for Visit * Reason Comments Refill Request Encounter Details Date Type Department Care Team (Late st Contact Info) Description 11/07/2022 Refill [facility] - Family Medicine [address] [place] [address] Chris Aden MD [address] [place] [address] Refill Request Social History Tobacco Use [...] st Contact Info) Description 04/07/2024 10:00 AM STICKER HAND Office Visit [address] [id number] Evelin Blanco, PROCESSING ASSISTANT-SKIING INSTRUCTOR [id number] [place] [phone] 06/06/2024 2:00 PM CDT Office Visit [address] [address] Chris Aden MD [address] [place] [phone] documented as of this encounter Goals Goal Patient Goal Type Associated Problems Recent Progress Patient-Stated? Author Blood Pressure < 140/90 Blood Pressure 96/68(2023 2:34 PM STICKER HAND) Rere Vargas Note: Caring for Your [...] Where can I go for more information? [place] Heart Association National Center: http://www.americanheart.org 1. In the top header, click ? Conditions? . 2. In the top header, click ? high blood pressure.? 3. For a printable blood pressure tracker, scroll toward the bottom of the page to Related Tools, and click ? HBP Trackers.? 1-583-EGQ-USA-1 or ( ) National Heart, Lung and Blood [place]: http://www.nhlbi.nih.gov/health/infoctr/index.htm Blood Pressure < 140/90 Blood Pressure 96/68(2023 2:34 PM STICKER HAND) Rere Vargas Note: Caring for Your [...] Where can I go for more information? [place] Heart Association National Center: http://www.americanheart.org 1. In the top header, click ? Conditions? . 2. In the top header, click ? high blood pressure.? 3. For a printable blood pressure tracker, scroll toward the bottom of the page to Related Tools, and click ? HBP Trackers.? 4-443-TJC-USA-1 or ( ) National Heart, Lung and Blood [place]: http://www.nhlbi.nih.gov/health/infoctr/index.htm Blood Pressure < 140/90 Blood Pressure 96/68(2023 2:34 PM STICKER HAND) Cassie Parks Note: Caring for Your [...] Where can I go for more information? [place] Heart Association National Center: http://www.americanheart.org 1. In the top header, click ? Conditions? . 2. In the top header, click ? high blood pressure.? 3. For a printable blood pressure tracker, scroll toward the bottom of the page to Related Tools, and click ? HBP Trackers.? 5-735-JAG-USA-1 or ( ) National Heart, Lung and Blood [place]: http://www.nhlbi.nih.gov/health/infoctr/index.htm Exercise 5X per week (30 min per time) Exercise No Rere Kaufman Note: The [place] College of Sports Medicine recommends all [...] how to manage your diabetes: ? ? [place] Diabetes Association: www.diabetes.org 3-512-NJLGXWGH ( ) ? ? [place] Diabetes Association-Support group line: www.professional.diabetes.org ? ? [place] Heart Association: www.heart.org or 7-659-UHD-USA-1 ( ) VitaSensis MyPlate: www.University Mediamyplate.gov Have labs drawn Lifestyle No Rere [...] on filedocumented in this encounter Care Teams Customer Greeter Relationship Specialty [place] [address] [place] [phone] PCP - General Internal Medicine 01/26/22 [place] [address] [place] [phone] PCP - [facility] 02/19/22 [place] [address] [facility] [address] [place] [address] Ophthalmology 04/06/16 Fawn Ramon D[place] [address] [place] [address] Podiatry 01/24/21 documented as of this encounter
--- OUTSIDE RECORDS SUMMARY | 2024-04-03 02:26 | XMS_ITS | Encounter Summary ---
Author Organization [facility] Address [address] [place] [address] Care Team Providers Care Sprue Cutting Press Operator Name Role Phone Ricco Andrew MD Unavailable [phone] Fawn Ramon DPM Unavailable Chris Aden MD Primary Care Provider Reason for Visit * Reason Onset Date Comments Establish Care Imm Inj 01/26/2022 Encounter Details Date Type Department Care Team (Late st Contact Info) Description 01/26/2022 2:00 PM ENVIRONMENTAL JOURNALIST Office Visit [facility] - Family Medicine [id number] [place] [address] Chris Aden MD [address] [place] [phone] Seborrheic dermatitis of scalp (Primary Dx); [...] current use of insulin, unspecified retinopathy severity ([facility]); Alzheimer's dementia without behavioral disturbance (HCC); Stage [...] Comments Blood Pressure 104/64 01/26/2022 2:15 PM ENVIRONMENTAL JOURNALIST Pulse 77 01/26/2022 2:15 PM ENVIRONMENTAL JOURNALIST Temperature 36.1 ??C (97 ??F) 01/26/2022 2:15 PM ENVIRONMENTAL JOURNALIST Respiratory Rate 18 01/26/2022 2:15 PM ENVIRONMENTAL JOURNALIST Oxygen Saturation 96% 01/26/2022 2:15 PM ENVIRONMENTAL JOURNALIST Inhaled Oxygen Concentration - - Weight 71.8 kg (158 lb 6.4 oz) 01/26/2022 2:15 P M ENVIRONMENTAL JOURNALIST Height 170.2 cm (5' 7) 01/26/2022 2:15 PM ENVIRONMENTAL JOURNALIST Body Mass Index 24.81 01/26/2022 2:15 PM ENVIRONMENTAL JOURNALIST documented in this encounter Progress Notes * Juany Sommers MA - 01/26/2022 3:09 PM CST Flu screening checklist was reviewed with the patient. VIS was given prior to administration. Injection site aseptically cleansed and injection given per Immunization(s) protocol. See Imm/Injections activity for details. RONMENTAL JOURNALIST * Chris Aden MD - 01/26/2022 2:42 [...] TWICE A DAY 180 tablet 1 ??? BonegrafixUCH ULTRA TEST STRIPS test strip Use 1 [...] neuropathy, without long-term current use of insulin ([facility]) 2. Seborrheic dermatitis of scalp 3. Type 2 diabetes mellitus with stage 3 chronic kidney disease, without long- term current use of insulin, unspecified whether stage 3a or 3b CKD ([facility]) 4. 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 Alzheimer's dementia without behavioral disturbance ([facility]) 6. Stage 3b chronic kidney disease ([facility]) 7. Seasonal allergic rhinitis due to pollen [...] neuropathy, without long-term current use of insulin ([facility]) E11.40 HEMOGLOBIN A1C - POINT OF CARE (AMB) 2. Seborrheic dermatitis of scalp L21.9 ketoconazole (Nizoral) 2 % shampoo improved over past year. Continue Ketoconazole. Monitor 3. Type 2 diabetes mellitus with stage 3 chronic kidney disease, without long- term current use of insulin, unspecified whether stage 3a or 3b CKD ([facility]) E11.22 HEMOGLOBIN A1C - POINT OF CARE (AMB) N18.30 4. 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 Alzheimer's dementia without behavioral disturbance ([facility]) G30.9 F02.80 6. Stage 3b chronic kidney disease ([facility]) N18.32 HEMOGLOBIN A1C W EAG MICROALB/CREAT RATIO [...] shampoo ??? levothyroxine (Synthroid) 75 MCG tablet RONMENTAL JOURNALIST * Cassie Marie - 01/26/2022 2:23 PM CST Patient is here today to establish care and for a recent fall. Blood pressure 104/64, pulse 77, temperature 97 ??F (36.1 ??C), temperature source Skin, resp. rate18, height 1.702 m (5' 7), weight 71.8 kg (158 lb 6.4 oz), SpO2 96 %. RONMENTAL JOURNALIST documented in this encounter Plan of Treatment Upcoming Encounters Date Type Department Care Team (Late st Contact Info) Description 04/07/2024 10:00 AM ENVIRONMENTAL JOURNALIST Office Visit [facility] [id number] [place] [address] [place] [address] Evelin Blanco, JOSETTE-HOME HEALTH ATTENDANT [address] [address] 06/06/2024 2:00 PM CDT Office Visit [facility] [id number] [place] [address] [address] [place] [address] Chris [place] [id number] [place] [address] Scheduled Orders Name Type Priority Associated [...] < 140/90 Blood Pressure 96/68(2023 2:34 PM ENVIRONMENTAL JOURNALIST) Rere Vargas Note: Caring for Your High [...] can I go for more information? British Heart Association National Center: http://www.americanheart.org 1. In the top header, click ? Conditions? . 2. In the top header, click ? high blood pressure.? 3. For a printable blood pressure tracker, scroll toward the bottom of the page to Related Tools, and click ? HBP Trackers.? 4-276-PFJ-USA- or ( ) National Heart, Lung and Blood [place]: http://www.nhlbi.nih.gov/health/infoctr/index.htm Blood Pressure < 140/90 Blood Pressure 96/68(2023 2:34 PM ENVIRONMENTAL JOURNALIST) Rere Vargas Note: Caring for Your High [...] can I go for more information? British Heart Association National Center: http://www.americanheart.org 1. In the top header, click ? Conditions? . 2. In the top header, click ? high blood pressure.? 3. For a printable blood pressure tracker, scroll toward the bottom of the page to Related Tools, and click ? HBP Trackers.? 7-341-IZP-USA- or ( ) National Heart, Lung and Blood [place]: http://www.nhlbi.nih.gov/health/infoctr/index.htm Blood Pressure < 140/90 Blood Pressure 96/68(2023 2:34 PM ENVIRONMENTAL JOURNALIST) Cassie Parks Note: Caring for Your High [...] can I go for more information? British Heart Association National Center: http://www.americanheart.org 1. In the top header, click ? Conditions? . 2. In the top header, click ? high blood pressure.? 3. For a printable blood pressure tracker, scroll toward the bottom of the page to Related Tools, and click ? HBP Trackers.? 6-768-NGB-USA-1 or ( ) National Heart, Lung and Blood [place]: http://www.nhlbi.nih.gov/health/infoctr/index.htm Exercise 5X per week (30 min per time) Exercise Rere Vargas Note: The British College of Sports Medicine recommends all adults [...] to manage your diabetes: ? ? British Diabetes Association: www.diabetes.org 8-320-XISBCTHS ( ) ? ? British Diabetes Association-Support group line: www.professional.diabetes.org ? ? British Heart Association: www.heart.org or 0-440-RMF-USA-1 ( ) Hedgeable MyPlate: www.Applied Optoelectronicsmyplate.gov Have labs drawn Lifestyle Rere Vargas Note: [...] influenza documented in this encounter Care Teams Sprue Cutting Press Operator Relationship Specialty [place] [address] [place] [phone] PCP - General Internal Medicine 01/26/22 [place] [address] [facility] [facility] [address] [place] [address] Ophthalmology 04/06/16 Fawn Ramon DPM [address] [place] [address] Podiatry 01/24/21 documented as of this encounter
--- OUTSIDE RECORDS SUMMARY | 2024-04-03 02:26 | XMS_ITS | Encounter Summary ---
Author Organization [facility] Address [address] [place] [address] Care Team Providers Care Lead Javascript Engineer Name Role Phone Ricco Andrew MD Unavailable [phone] Rosana Solo MD Unavailable [phone] Fawn Ramon DPM Unavailable [phone] Reason for Visit * Reason Comments Diabetes Encounter Details Date Type Department Care Team (Late st Contact Info) Description 07/23/2021 11:30 AM CDT Office Visit [facility] - Family Medicine [address] [facility] [address] [place] [address] Evelin Blanco APRN-DENIS [address] [facility] [address] [place] [address] Type 2 diabetes mellitus with [...] Progress Notes * Evelin Blanco APRN-CNP - 07/23/2021 11:57 AM CDT SUBJECTIVE: [...] st Contact Info) Description 04/07/2024 10:00 AM SEAT MAKER Office Visit [facility] [address] [place] [address] Lisbeta Evelin, STEEL ERECTOR APPRENTICE-CLOTHES IRONER [address] [facility] [address] [place] [address] 06/06/2024 2:00 PM CDT Office Visit [facility] [address] [facility] [address] [place] [address] [place] [address] [facility] [address] [place] [address] documented as of this encounter Goals Goal Patient Goal Type Associated Problems Recent Progress Patient-Stated? Author Blood Pressure < 140/90 Blood Pressure 96/68(2023 2:34 PM SEAT MAKER) Rere Vargas Note: Caring for Your [...] Where can I go for more information? [place] Heart Association National Center: http://www.americanheart.org 1. In the top header, click ? Conditions? . 2. In the top header, click ? high blood pressure.? 3. For a printable blood pressure tracker, scroll toward the bottom of the page to Related Tools, and click ? HBP Trackers.? 2-291-LKG-USA- or ( ) National Heart, Lung and Blood [place]: http://www.nhlbi.nih.gov/health/infoctr/index.htm Blood Pressure < 140/90 Blood Pressure 96/68(2023 2:34 PM SEAT MAKER) No Rere Kaufman Note: Caring for Your [...] Where can I go for more information? [place] Heart Association National Center: http://www.americanheart.org 1. In the top header, click ? Conditions? . 2. In the top header, click ? high blood pressure.? 3. For a printable blood pressure tracker, scroll toward the bottom of the page to Related Tools, and click ? HBP Trackers.? 5-786-ICV-USA- or ( ) National Heart, Lung and Blood [place]: http://www.nhlbi.nih.gov/health/infoctr/index.htm Blood Pressure < 140/90 Blood Pressure 96/68(2023 2:34 PM SEAT MAKER) Cassie Parks Note: Caring for Your [...] Where can I go for more information? [place] Heart Association National Center: http://www.americanheart.org 1. In the top header, click ? Conditions? . 2. In the top header, click ? high blood pressure.? 3. For a printable blood pressure tracker, scroll toward the bottom of the page to Related Tools, and click ? HBP Trackers.? 6-144-LVI-USA-1 or ( ) National Heart, Lung and Blood [place]: http://www.nhlbi.nih.gov/health/infoctr/index.htm Exercise 5X per week (30 min per time) Exercise Rere Vargas Note: The [place] College of Sports Medicine recommends all adults [...] how to manage your diabetes: ? ? [place] Diabetes Association: www.diabetes.org 5-485-DBKAUAER ( ) ? ? [place] Diabetes Association-Support group line: www.professional.diabetes.org ? ? [place] Heart Association: www.heart.org or 2-509-YZD-USA-1 ( ) Bonafide MyPlate: www.Entomomyplate.gov Have labs drawn Lifestyle Rere Vargas Note: [...] Primary documented in this encounter Care Teams Lead Javascript Engineer Relationship Specialty Start Date End Date Rosana Solo MD [address] [facility] [address] [place] [address] PCP - Attributed-[facility] 02/19/19 [place] [address] [facility] [address] [place] [address] Ophthalmology 04/06/16 [place] [address] [facility] [address] [place] [address] Podiatry 01/24/21 documented as of this encounter
--- OUTSIDE RECORDS SUMMARY | 2024-04-03 02:26 | XMS_ITS | Encounter Summary ---
Author Organization [facility] Address [address] [facility] [place] [address] Care Team Providers Care Child Development Director Name Role Phone Ricco Andrew MD Unavailable [phone] Fawn Ramon DPKae Unavailable [phone] Reason for Visit * Reason Comments Refill Request Encounter Details Date Type Department Care Team (Late st Contact Info) Description 11/14/2021 Refill [facility] - Family Medicine [address] [place], [place] [id number] Rosana Solo MD [address] [place] [phone] Refill Request Social History Tobacco Use [...] st Contact Info) Description 04/07/2024 10:00 AM VARIETY LATHE OPERATOR Office Visit [facility] [address] [facility] [address] [place] [address] Evelin Blanco APRN-CNP [address] [phone] 06/06/2024 2:00 PM CDT Office Visit [facility] [id number] [place] [address] [address] [place], [place] [phone] [place] [address] [facility] [address] [phone] documented as of this encounter Goals Goal Patient Goal Type Associated Problems Recent Progress Patient-Stated? Author Blood Pressure < 140/90 Blood Pressure 96/68(2023 2:34 PM VARIETY LATHE OPERATOR) Rere Vargas Note: Caring for Your [...] Where can I go for more information? [place] Heart Association National Center: http://www.americanheart.org 1. In the top header, click ? Conditions? . 2. In the top header, click ? high blood pressure.? 3. For a printable blood pressure tracker, scroll toward the bottom of the page to Related Tools, and click ? HBP Trackers.? 7-233-BBS-USA-1 or ( ) National Heart, Lung and Blood Protection: http://www.nhlbi.nih.gov/health/infoctr/index.htm Blood Pressure < 140/90 Blood Pressure 96/68(2023 2:34 PM VARIETY LATHE OPERATOR) Rere Vargas Note: Caring for Your [...] Where can I go for more information? Finnish Heart Association National Center: http://www.americanheart.org 1. In the top header, click ? Conditions? . 2. In the top header, click ? high blood pressure.? 3. For a printable blood pressure tracker, scroll toward the bottom of the page to Related Tools, and click ? HBP Trackers.? 0-851-AVC-USA-1 or ( ) National Heart, Lung and Blood Protection: http://www.nhlbi.nih.gov/health/infoctr/index.htm Blood Pressure < 140/90 Blood Pressure 96/68(2023 2:34 PM VARIETY LATHE OPERATOR) Cassie Parks Note: Caring for Your [...] Where can I go for more information? Finnish Heart Association National Center: http://www.americanheart.org 1. In the top header, click ? Conditions? . 2. In the top header, click ? high blood pressure.? 3. For a printable blood pressure tracker, scroll toward the bottom of the page to Related Tools, and click ? HBP Trackers.? 9-961-PYE-USA-1 or ( ) National Heart, Lung and Blood Protection: http://www.nhlbi.nih.gov/health/infoctr/index.htm Exercise 5X per week (30 min per time) Exercise Rere Vargas Note: The [place] College of Sports Medicine recommends all adults [...] how to manage your diabetes: ? ? [place] Diabetes Association: www.diabetes.org 9-396-CRVFORGR ( ) ? ? Finnish Diabetes Association-Support group line: www.professional.diabetes.org ? ? [place] Heart Association: www.heart.org or 6-804-ZDX-USA-1 ( ) GPB Scientific MyPlate: www.roomlinxmyplate.gov Have labs drawn Lifestyle Rere Vargas Note: [...] on filedocumented in this encounter Care Teams Child Development Director Relationship Specialty [place] [address] [facility] [address] [place] [address] Ophthalmology 04/06/16 Fawn Ramon DPM [address] [facility] [address] [place] [address] Podiatry 01/24/21 documented as of this encounter
--- OUTSIDE RECORDS SUMMARY | 2024-04-03 02:26 | XMS_ITS | Encounter Summary ---
Author Organization [facility] Address [address] [place] [address] Care Team Providers Care Automatic Centrifugal Station Operator Name Role Phone Ricco Andrew MD Unavailable [phone] Fawn Ramon DPM Unavailable [phone] Chris Aden MD Primary Care Provider [phone] Chris Aden MD Unavailable Reason for Visit * Reason Comments Refill Request Encounter Details Date Type Department Care Team (Late st Contact Info) Description 01/17/2023 Refill [facility] - Family Medicine [address] [place] [address] Chris Aden MD [address] [place] [phone] Refill Request Social History Tobacco Use [...] Contact Info) Description 04/07/2024 10:00 AM MACHINE PLATE STACKER Office Visit [facility] [address] [facility] [address] [place] [address] Evelin Blanco APRN-CNP [address] [facility] [address] [place] [address] 06/06/2024 2:00 PM CDT Office Visit [facility] [address] [facility] [address] [place] [address] [place] [address] [facility] [address] [place] [address] documented as of this encounter Goals Goal Patient Goal Type Associated Problems Recent Progress Patient-Stated? Author Blood Pressure < 140/90 Blood Pressure 96/68(2023 2:34 PM MACHINE PLATE STACKER) Rere Vargas Note: Caring for Your High [...] Related Tools, and click ? HBP Trackers.? 0-211-QCQ-USA-1 or ( ) National Heart, Lung and Blood [place]: http://www.nhlbi.nih.gov/health/infoctr/index.htm Blood Pressure < 140/90 Blood Pressure 96/68(2023 2:34 PM MACHINE PLATE STACKER) Rere Vargas Note: Caring for Your High [...] Related Tools, and click ? HBP Trackers.? 7-409-GGB-USA-1 or ( ) National Heart, Lung and Blood [place]: http://www.nhlbi.nih.gov/health/infoctr/index.htm Blood Pressure < 140/90 Blood Pressure 96/68(2023 2:34 PM MACHINE PLATE STACKER) Cassie Parks Note: Caring for Your High [...] Related Tools, and click ? HBP Trackers.? 9-777-SQT-USA-1 or ( ) National Heart, Lung and Blood [place]: http://www.nhlbi.nih.gov/health/infoctr/index.htm Exercise 5X per week (30 [...] diabetes: ? ? [place] Diabetes Association: www.diabetes.org 6-227-KZCFCTOV ( ) ? ? [place] Diabetes Association-Support group line: www.professional.diabetes.org ? ? [place] Heart Association: www.heart.org or 9-734-WSR-USA-1 ( ) Pose MyPlate: www.Northern Brewermyplate.gov Have labs drawn Lifestyle No Rere Kaufman [...] on filedocumented in this encounter Care Teams Automatic Centrifugal Station Operator Relationship Specialty [place] [address] [address] [place] [address] PCP - General Internal Medicine 01/26/22 [place] [address] [address] [place] [address] PCP - [facility] 02/19/22 [place] [address] [address] [facility] [address] [place] [address] Ophthalmology 04/06/16 Fawn Ramon DPM [address] [address] [place] [address] Podiatry 01/24/21 documented as of this encounter
--- OUTSIDE RECORDS SUMMARY | 2024-04-03 02:26 | XMS_ITS | Encounter Summary ---
Author Organization [facility] Address [address] [facility] [place] [address] Care Team Providers Care Hop Separator Name Role Phone Ricco Andrew MD Unavailable [phone] Fawn Ramon DPM Unavailable [phone] Chris Aden MD Primary Care Provider [phone] Chris Aden MD Unavailable Reason for Visit * Reason Onset Date Comments Follow-up Medicare Subsequent Annual Wellness Visit 4 month COVID-19 IMMUNIZATION/INJECTION 05/26/2022 Encounter Details Date Type Department Care Team (Late st Contact Info) Description 05/26/2022 1:30 PM TOOL DESIGNER APPRENTICE Office Visit [facility] - Family Medicine [id number] [place] [address] Chris Aden MD [address] [place] [phone] Fall, initial encounter (Primary Dx); Traumatic [...] Comments Blood Pressure 104/60 05/26/2022 1:49 PM TOOL DESIGNER APPRENTICE Pulse 73 05/26/2022 1:49 PM TOOL DESIGNER APPRENTICE Temperature 36.8 ??C (98.2 ??F) 05/26/2022 1:49 PM CS T Respiratory Rate 16 05/26/2022 1:49 PM TOOL DESIGNER APPRENTICE Oxygen Saturation 99% 05/26/2022 1:49 PM TOOL DESIGNER APPRENTICE Inhaled Oxygen Concentration - - Weight 70.7 kg (155 lb 12.8 oz) 05/26/2022 1:49 PM TOOL DESIGNER APPRENTICE Height 170.2 cm (5' 7) 05/26/2022 1:49 PM TOOL DESIGNER APPRENTICE Body Mass Index 24.4 05/26/2022 1:49 PM TOOL DESIGNER APPRENTICE documented in this encounter Patient Instructions * Patient Instructions* Juany Sommers MA - 05/26/2022 1:49 PM TOOL DESIGNER APPRENTICE Images from the original note were not included. Vaccine recipients are encouraged to enroll in the CDC V-SAFE program for post vaccination monitoring. Sign up with your smartphone's browser at Smarter Remarketer.cdc.gov or Aim your smartphone's camera at this code. COVID-19 Preparedness: Post-Vaccination Frequently Asked Questions Q. Do I need to continue to wear a mask and other PPE after both vaccine doses? A. Yes. While researchers and medical physics teacher learn more about the protection that COVID-19 [...] vaccination, immunity is not immediate. Q. Will [facility] change its current screening or testing protocols [...] in communities, will also affect this decision. DESIGNER APPRENTICE documented in this encounter Progress Notes * [...] Aden MD as PCP - [facility] Ricco Johnson MD (Ophthalmology) Fawn [...] current use of insulin, unspecified retinopathy severity ([facility]) E11.311 5. Type 2 diabetes mellitus with [...] TSH 8. Stage 3b chronic kidney disease ([facility]) N18.32 9. Alzheimer's dementia without behavioral disturbance ([facility]) G30.9 F02.80 10. Screening, lipid Z13.220 LIPID [...] ??? TSH ??? AMB REFERRAL TO NEUROLOGY DESIGNER APPRENTICE * Juany Sommers MA - 05/26/2022 1:49 PM CST COVID screening checklist was reviewed with the patient. The Information sheet was given prior to administration. Injection site aseptically cleansed and injection given per Immunization(s) protocol.See Imm/Injections activity for details. DESIGNER APPRENTICE documented in this encounter Plan of Treatment Upcoming Encounters Date Type Department Care Team (Late st Contact Info) Description 04/07/2024 10:00 AM TOOL DESIGNER APPRENTICE Office Visit [facility] [id number] [place] [address] Evelin Blanco, FIRE EQUIPMENT INSPECTOR-FIELD CONTACT TECHNICIAN [id number] [place] [address] 06/06/2024 2:00 PM CDT Office Visit [facility] [phone] [place] [address] Chris Aden MD [address] [place] [phone] Scheduled Orders Name Type Priority Associated Diagnoses [...] neuropathy, without long-term current use of insulin ([facility]) Ordered: 05/26/2022 MICROALB/CREAT RATIO URINE RANDOM PANEL Lab Routine Type 2 diabetes mellitus with diabetic neuropathy, without long-term current use of insulin ([facility]) Ordered: 05/26/2022 TSH Lab Routine Hypothyroidism, adult Ordered: 05/26/2022 documented as of this encounter Goals Goal Patient Goal Type Associated Problems Recent Progress Patient-Stated? Author Blood Pressure < 140/90 Blood Pressure 96/68(2023 2:34 PM TOOL DESIGNER APPRENTICE) Rere Vargas Note: Caring for Your [...] Related Tools, and click ? HBP Trackers.? 7-292-ZDJ-USA- or ( ) National Heart, Lung and Blood [place]: http://www.nhlbi.nih.gov/health/infoctr/index.htm Blood Pressure < 140/90 Blood Pressure 96/68(2023 2:34 PM TOOL DESIGNER APPRENTICE) No Rere Kaufman Note: Caring for Your [...] Related Tools, and click ? HBP Trackers.? 2-089-VEV-USA-1 or ( ) National Heart, Lung and Blood [place]: http://www.nhlbi.nih.gov/health/infoctr/index.htm Blood Pressure < 140/90 Blood Pressure 96/68(2023 2:34 PM TOOL DESIGNER APPRENTICE) No Cassie Marie Note: Caring for Your [...] Related Tools, and click ? HBP Trackers.? 8-633-IIV-USA-1 or ( ) National Heart, Lung and Blood [place]: http://www.nhlbi.nih.gov/health/infoctr/index.htm Exercise 5X per week (30 min per time) Exercise Rere Vargas Note: The [place] College of Sports Medicine [...] diabetes: ? ? [place] Diabetes Association: www.diabetes.org 2-268-QHTNRFUZ ( ) ? ? [place] Diabetes Association-Support group line: www.professional.diabetes.org ? ? [place] Heart Association: www.heart.org or 0-832-OQJ-USA-1 ( ) SysClass MyPlate: www.iLostmyplate.gov Have labs drawn Lifestyle Rere Vargas Note: [...] constipation documented in this encounter Care Teams Hop Separator Relationship Specialty [place] [address] [place] [phone] PCP - General Internal Medicine 01/26/22 [place] [address] [place] [phone] PCP - [facility] 02/19/22 [place] [address] [facility] [address] [place] [address] Ophthalmology 04/06/16 Fawn Ramon [place] [address] [place] [address] Podiatry 01/24/21 documented as of this encounter
--- OUTSIDE RECORDS SUMMARY | 2024-04-03 02:26 | XMS_ITS | Encounter Summary ---
Author Organization [facility] Address [address] [facility] [place] [address] Care Team Providers Care Mechanical Engineering Intern Name Role Phone Ricco Andrew MD Unavailable [phone] Fawn Ramon DPM Unavailable [phone] Chris Aden MD Primary Care Provider [phone] Chris Aden MD Unavailable Reason for Visit * Reason Comments Refill Request Encounter Details Date Type Department Care Team (Late st Contact Info) Description 10/04/2022 Refill [facility] - Family Medicine [address] [place] [address] Chris Aden MD [address] [place] [phone] Refill Request Social History Tobacco Use [...] st Contact Info) Description 04/07/2024 10:00 AM ENTRY LEVEL DRAFTER Office Visit [facility] [address] [facility] [address] [place] [address] Evelin Blanco APRN-CNP [address] [facility] [address] [place] [address] 06/06/2024 2:00 PM CDT Office Visit [facility] [address] [facility] [address] [place] [address] [place] [address] [facility] [address] [place] [address] documented as of this encounter Goals Goal Patient Goal Type Associated Problems Recent Progress Patient-Stated? Author Blood Pressure < 140/90 Blood Pressure 96/68(2023 2:34 PM ENTRY LEVEL DRAFTER) Rere Vargas Note: Caring for Your High [...] Where can I go for more information? [place] Heart Association National Center: http://www.americanheart.org 1. In the top header, click ? Conditions? . 2. In the top header, click ? high blood pressure.? 3. For a printable blood pressure tracker, scroll toward the bottom of the page to Related Tools, and click ? HBP Trackers.? 5-864-GPF-USA-1 or ( ) National Heart, Lung and Blood [place]: http://www.nhlbi.nih.gov/health/infoctr/index.htm Blood Pressure < 140/90 Blood Pressure 96/68(2023 2:34 PM ENTRY LEVEL DRAFTER) Rere Vargas Note: Caring for Your High [...] Where can I go for more information? [place] Heart Association National Center: http://www.americanheart.org 1. In the top header, click ? Conditions? . 2. In the top header, click ? high blood pressure.? 3. For a printable blood pressure tracker, scroll toward the bottom of the page to Related Tools, and click ? HBP Trackers.? 2-755-DSO-USA-1 or ( ) National Heart, Lung and Blood [place]: http://www.nhlbi.nih.gov/health/infoctr/index.htm Blood Pressure < 140/90 Blood Pressure 96/68(2023 2:34 PM ENTRY LEVEL DRAFTER) Cassie Parks Note: Caring for Your High [...] Where can I go for more information? [place] Heart Association National Center: http://www.americanheart.org 1. In the top header, click ? Conditions? . 2. In the top header, click ? high blood pressure.? 3. For a printable blood pressure tracker, scroll toward the bottom of the page to Related Tools, and click ? HBP Trackers.? 7-699-HLY-USA-1 or ( ) National Heart, Lung and Blood [place]: http://www.nhlbi.nih.gov/health/infoctr/index.htm Exercise 5X per week (30 min per time) Exercise No Rere Kaufman Note: The [place] College of Sports Medicine recommends all adults [...] how to manage your diabetes: ? ? [place] Diabetes Association: www.diabetes.org 7-051-ALPTJEKV ( ) ? ? [place] Diabetes Association-Support group line: www.professional.diabetes.org ? ? [place] Heart Association: www.heart.org or 5-478-NUO-USA-1 ( ) NextCode Health MyPlate: www.Aidinmyplate.gov Have labs drawn Lifestyle No Rere Kaufman [...] on filedocumented in this encounter Care Teams Mechanical Engineering Intern Relationship Specialty [place] [address] [place] [phone] PCP - General Internal Medicine 01/26/22 [place] [address] [place] [phone] PCP - [facility] 02/19/22 [place] [address] [place] [address] Ophthalmology 04/06/16 Fawn Ramon [place] [address] [place] [address] Podiatry 01/24/21 documented as of this encounter
--- OUTSIDE RECORDS SUMMARY | 2024-04-03 02:26 | XMS_ITS | Encounter Summary ---
Author Organization [facility] Address [address] [place] [address] Care Team Providers Care Continuous Churn Buttermaker Name Role Phone Ricco Andrew MD Unavailable [phone] Fawn Ramon DPKae Unavailable [phone] Chris Aden MD Primary Care Provider [phone] Reason for Visit * Reason Onset Date Comments MEDICATION REFILL 02/11/2022 Encounter Details Date Type Department Care Team (Late st Contact Info) Description 02/11/2022 Refill [facility] - Family Medicine [address] [place] [address] Chris Aden MD [address] [place] [phone] MEDICATION REFILL Social History Tobacco Use [...] month follow up Last refill was on:01/27/2021 RITIES COMPLIANCE EXAMINER documented in this encounter Plan of Treatment Upcoming Encounters Date Type Department Care Team (Late st Contact Info) Description 04/07/2024 10:00 AM SECURITIES COMPLIANCE EXAMINER Office Visit [facility] [id number] [place] [address] Evelin Blanco, PLASTICS FABRICATOR-ENERGY CONTROL OFFICER [address] [place] [address] 06/06/2024 2:00 PM CDT Office Visit [facility] [phone] [place] [address] Chris Aden MD [address] [place] [address] [phone] documented as of this encounter Goals Goal Patient Goal Type Associated Problems Recent Progress Patient-Stated? Author Blood Pressure < 140/90 Blood Pressure 96/68(2023 2:34 PM SECURITIES COMPLIANCE EXAMINER) Rere Vargas Note: Caring for Your High [...] Where can I go for more information? [place] Heart Association National Center: http://www.americanheart.org 1. In the top header, click ? Conditions? . 2. In the top header, click ? high blood pressure.? 3. For a printable blood pressure tracker, scroll toward the bottom of the page to Related Tools, and click ? HBP Trackers.? 8-837-KUL-USA-1 or ( ) National Heart, Lung and Blood [place]: http://www.nhlbi.nih.gov/health/infoctr/index.htm Blood Pressure < 140/90 Blood Pressure 96/68(2023 2:34 PM SECURITIES COMPLIANCE EXAMINER) Rere Vargas Note: Caring for Your High [...] Where can I go for more information? [place] Heart Association National Center: http://www.americanheart.org 1. In the top header, click ? Conditions? . 2. In the top header, click ? high blood pressure.? 3. For a printable blood pressure tracker, scroll toward the bottom of the page to Related Tools, and click ? HBP Trackers.? 3-430-CPE-USA-1 or ( ) National Heart, Lung and Blood [place]: http://www.nhlbi.nih.gov/health/infoctr/index.htm Blood Pressure < 140/90 Blood Pressure 96/68(2023 2:34 PM SECURITIES COMPLIANCE EXAMINER) Cassie Parks Note: Caring for Your High [...] Where can I go for more information? [place] Heart Association National Center: http://www.americanheart.org 1. In the top header, click ? Conditions? . 2. In the top header, click ? high blood pressure.? 3. For a printable blood pressure tracker, scroll toward the bottom of the page to Related Tools, and click ? HBP Trackers.? 1-629-FDZ-USA-1 or ( ) National Heart, Lung and Blood [place]: http://www.nhlbi.nih.gov/health/infoctr/index.htm Exercise 5X per week (30 min per time) Exercise No Rere Kaufman Note: The [place] College of Sports Medicine recommends all adults [...] how to manage your diabetes: ? ? [place] Diabetes Association: www.diabetes.org 0-085-ULNUOLDY ( ) ? ? [place] Diabetes Association-Support group line: www.professional.diabetes.org ? ? [place] Heart Association: www.heart.org or 2-402-AUX-USA-1 ( ) EnviroGene MyPlate: www.Mediummyplate.gov Have labs drawn Lifestyle Rree Vargas Note: Caring for Your Diabetes Routine [...] on filedocumented in this encounter Care Teams Continuous Churn Buttermaker Relationship Specialty [place] [address] [place] [phone] PCP - General Internal Medicine 01/26/22 [place] [address] [address] [facility] [address] [place] [phone] Ophthalmology 04/06/16 Fawn Ramon DPM [address] [place] [address] Podiatry 01/24/21 documented as of this encounter
--- OUTSIDE RECORDS SUMMARY | 2024-04-03 02:26 | XMS_ITS | Encounter Summary ---
Author Organization [facility] Address [address] [place] [address] Care Team Providers Care Test And Balance Engineer Name Role Phone Ricco Andrew MD Unavailable [phone] Fawn Ramon DPM Unavailable [phone] Chris Aden MD Primary Care Provider [phone] Chris Aden MD Unavailable Encounter Details Date [...] st Contact Info) Description 04/07/2024 10:00 AM DRILLING MACHINE RUNNER Office Visit [facility] [address] [facility] [address] [place] [address] Evelin Blanco, PLASTIC FABRICATOR-DENIS [address] [facility] [address] [place] [address] 06/06/2024 2:00 PM CDT Office Visit [facility] [address] [facility] [address] [place] [address] [place] [address] [facility] [address] [place] [address] documented as of this encounter Goals Goal Patient Goal Type Associated Problems Recent Progress Patient-Stated? Author Blood Pressure < 140/90 Blood Pressure 96/68(2023 2:34 PM DRILLING MACHINE RUNNER) Rere Vargas Note: Caring for Your High [...] Related Tools, and click ? HBP Trackers.? 6-835-LGE-USA- or ( ) National Heart, Lung and Blood [place]: http://www.nhlbi.nih.gov/health/infoctr/index.htm Blood Pressure < 140/90 Blood Pressure 96/68(2023 2:34 PM DRILLING MACHINE RUNNER) Rere Vargas Note: Caring for Your High [...] Related Tools, and click ? HBP Trackers.? 7-877-BSM-USA- or ( ) National Heart, Lung and Blood [place]: http://www.nhlbi.nih.gov/health/infoctr/index.htm Blood Pressure < 140/90 Blood Pressure 96/68(2023 2:34 PM DRILLING MACHINE RUNNER) Cassie Parks Note: Caring for Your High [...] Related Tools, and click ? HBP Trackers.? 3-772-KVU-USA-1 or ( ) National Heart, Lung and Blood [place]: http://www.nhlbi.nih.gov/health/infoctr/index.htm Exercise 5X per week (30 min per time) Exercise No Rere Kaufman Note: The Indonesian College of Sports Medicine [...] diabetes: ? ? Indonesian Diabetes Association: www.diabetes.org 2-407-MVVMEVBA ( ) ? ? Indonesian Diabetes Association-Support group line: www.professional.diabetes.org ? ? Indonesian Heart Association: www.heart.org or 1-976-FDC-USA-1 ( ) USDA MyPlate: www.REGiMMUNE Corporationmyplate.gov Have labs drawn Lifestyle Rere Vargas [...] on filedocumented in this encounter Care Teams Test And Balance Engineer Relationship Specialty [place] [address] [place] [address] PCP - General Internal Medicine 01/26/22 [place] [address] [address] [place] [address] PCP - [facility] 02/19/22 [place] [address] [address] Ophthalmology 04/06/16 [place] [address] [address] [place] [address] Podiatry 01/24/21 documented as of this encounter
--- OUTSIDE RECORDS SUMMARY | 2024-04-03 02:26 | XMS_ITS | Encounter Summary ---
Author Organization [facility] Address [address] [facility] [place] [address] Care Team Providers Care Bowling Teacher Name Role Phone Ricco Andrew MD Unavailable [phone] Fawn Ramon DPM Unavailable [phone] Chris Aden MD Primary Care Provider [phone] Chris Aden MD Unavailable Encounter Details Date Type Department Care Team (Late st Contact Info) Description 05/25/2022 Orders Only [facility] - Family Medicine [id number] [place] [address] Chris Aden MD [address] [place] [address] Social History Tobacco Use Types Packs/Day [...] st Contact Info) Description 04/07/2024 10:00 AM PROFESSIONAL VOLLEYBALL PLAYER Office Visit [facility] [address] [facility] [address] [place] [address] Evelin Blanco APRN-CNP [address] [facility] [address] [place] [address] 06/06/2024 2:00 PM CDT Office Visit [facility] [address] [facility] [address] [place], [place] [address] [place] [address] [address] documented as of this encounter Goals Goal Patient Goal Type Associated Problems Recent Progress Patient-Stated? Author Blood Pressure < 140/90 Blood Pressure 96/68(2023 2:34 PM PROFESSIONAL VOLLEYBALL PLAYER) Rere Vargas Note: Caring for Your High [...] Related Tools, and click ? HBP Trackers.? 1-827-PQO-USA- or ( ) National Heart, Lung and Blood [place]: http://www.nhlbi.nih.gov/health/infoctr/index.htm Blood Pressure < 140/90 Blood Pressure 96/68(2023 2:34 PM PROFESSIONAL VOLLEYBALL PLAYER) Rere Vargas Note: Caring for Your High [...] Related Tools, and click ? HBP Trackers.? 1-464-GLW-USA- or ( ) National Heart, Lung and Blood [place]: http://www.nhlbi.nih.gov/health/infoctr/index.htm Blood Pressure < 140/90 Blood Pressure 96/68(2023 2:34 PM PROFESSIONAL VOLLEYBALL PLAYER) Cassie Parks Note: Caring for Your High [...] Related Tools, and click ? HBP Trackers.? 6-869-TQJ-USA-1 or ( ) National Heart, Lung and Blood [place]: http://www.nhlbi.nih.gov/health/infoctr/index.htm Exercise 5X per week (30 [...] diabetes: ? ? [place] Diabetes Association: www.diabetes.org 0-914-JGDVFDVK ( ) ? ? Australian Diabetes Association-Support group line: www.professional.diabetes.org ? ? Australian Heart Association: www.heart.org or 6-636-UDY-USA-1 ( ) [employer] MyPlate: www.Apsara Therapeuticsmyplate.gov Have labs drawn Lifestyle No Rere Kaufman [...] on filedocumented in this encounter Care Teams Bowling Teacher Relationship Specialty [place] [address] [place] [address] PCP - General Internal Medicine 01/26/22 [place] [address] [address] [place] [address] PCP - [facility] 02/19/[address] [place] [address] [facility] [address] [place] [address] Ophthalmology 04/06/16 Fawn Ramon DPM [address] [address] [place] [address] Podiatry 01/24/21 documented as of this encounter
--- OUTSIDE RECORDS SUMMARY | 2024-04-03 02:26 | XMS_ITS | Encounter Summary ---
Author Organization [facility] Address [address] [facility] [place] [address] Care Team Providers Care Emergency Medicine Medical Director Name Role Phone Ricco Andrew MD Unavailable [phone] Fawn Ramon DPM Unavailable [phone] Chris Aden MD Primary Care Provider [phone] Chris Aden MD Unavailable Reason for Visit * Reason Comments Refill Request Encounter Details Date Type Department Care Team (Late st Contact Info) Description 03/29/2023 Refill [facility] - Family Medicine [address] [place] [address] Chris Aden MD [address] [place] [address] Refill Request Social History Tobacco Use [...] st Contact Info) Description 04/07/2024 10:00 AM HAZARDOUS SUBSTANCES ENGINEER Office Visit [facility] [address] [facility] [address] [place] [address] Chayode[address] E[address]KITA [address] [facility] [address] [place] [address] 06/06/2024 2:00 PM CDT Office Visit [facility] [address] [facility] [address] [place] [address] [place] [address] [facility] [address] [place] [address] documented as of this encounter Goals Goal Patient Goal Type Associated Problems Recent Progress Patient-Stated? Author Blood Pressure < 140/90 Blood Pressure 96/68(2023 2:34 PM HAZARDOUS SUBSTANCES ENGINEER) Rere Vargas Note: Caring for Your [...] Related Tools, and click ? HBP Trackers.? 7-512-OIG-USA-1 or ( ) National Heart, Lung and Blood [place]: http://www.nhlbi.nih.gov/health/infoctr/index.htm Blood Pressure < 140/90 Blood Pressure 96/68(2023 2:34 PM HAZARDOUS SUBSTANCES ENGINEER) Rere Vargas Note: Caring for Your [...] Related Tools, and click ? HBP Trackers.? 3-247-ZTC-USA-1 or ( ) National Heart, Lung and Blood [place]: http://www.nhlbi.nih.gov/health/infoctr/index.htm Blood Pressure < 140/90 Blood Pressure 96/68(2023 2:34 PM HAZARDOUS SUBSTANCES ENGINEER) Cassie Parks Note: Caring for Your [...] Related Tools, and click ? HBP Trackers.? 4-757-ORM-USA-1 or ( ) National Heart, Lung and Blood [place]: http://www.nhlbi.nih.gov/health/infoctr/index.htm Exercise 5X per week (30 min [...] diabetes: ? ? [place]raltarian Diabetes Association: www.diabetes.org 0-969-GLXRZXQL ( ) ? ? Gibraltarian Diabetes Association-Support group line: www.professional.diabetes.org ? ? [place]raltarian Heart Association: www.heart.org or 8-179-CTN-USA-1 ( ) [employer] MyPlate: www.SlidePaymyplate.gov Have labs drawn Lifestyle No Rere Kaufman [...] on filedocumented in this encounter Care Teams Emergency Medicine Medical Director Relationship Specialty [place] [address] [address] [place] [address] PCP - General Internal Medicine 01/26/22 [place] [address] [address] [place] [address] PCP - [facility] 02/19/22 [place] [address] [facility] [address] [place] [address] Ophthalmology 04/06/16 Fawn Ramon DPM [address] [address] [place] [address] Podiatry 01/24/21 documented as of this encounter
--- OUTSIDE RECORDS SUMMARY | 2024-04-03 02:26 | XMS_ITS | Encounter Summary ---
Author Organization [facility] Address [address] [facility] [place] [address] Care Team Providers Care Oracle Financial Application Developer Name Role Phone Ricco Andrew MD Unavailable [phone] Fawn Ramon DPKae Unavailable [phone] Chris Aden MD Primary Care Provider [phone] Reason for Visit * Reason Onset Date Comments MEDICATION REFILL 02/16/2022 Encounter Details Date Type Department Care Team (Late st Contact Info) Description 02/16/2022 Refill [facility] - Family Medicine [address] [place] [address] Chris Aden MD [address] [place] [address] MEDICATION REFILL Social History Tobacco Use [...] st Contact Info) Description 04/07/2024 10:00 AM INTERNET APPLICATION DEVELOPER Office Visit [facility] [address] [facility] [address] [place], [place] [phone] Evelin Blanco APRN-CNP [address] [address] 06/06/2024 2:00 PM CDT Office Visit [facility] [address] [facility] [address] [place], [place] [address] [place] [address] [address] documented as of this encounter Goals Goal Patient Goal Type Associated Problems Recent Progress Patient-Stated? Author Blood Pressure < 140/90 Blood Pressure 96/68(2023 2:34 PM INTERNET APPLICATION DEVELOPER) Rere Vargas Note: Caring for Your [...] Related Tools, and click ? HBP Trackers.? 5-881-TJA-USA-1 or ( ) National Heart, Lung and Blood [place]: http://www.nhlbi.nih.gov/health/infoctr/index.htm Blood Pressure < 140/90 Blood Pressure 96/68(2023 2:34 PM INTERNET APPLICATION DEVELOPER) Rere Vargas Note: Caring for Your [...] Related Tools, and click ? HBP Trackers.? 7-729-LCY-USA-1 or ( ) National Heart, Lung and Blood [place]: http://www.nhlbi.nih.gov/health/infoctr/index.htm Blood Pressure < 140/90 Blood Pressure 96/68(2023 2:34 PM INTERNET APPLICATION DEVELOPER) Cassie Parks Note: Caring for Your [...] Related Tools, and click ? HBP Trackers.? 1-818-HUN-USA-1 or ( ) National Heart, Lung and Blood [place]: http://www.nhlbi.nih.gov/health/infoctr/index.htm Exercise 5X per week (30 min per time) Exercise Rere Vargas Note: The Eritrean College of Sports Medicine [...] diabetes: ? ? Eritrean Diabetes Association: www.diabetes.org 0-729-PGBCABFY ( ) ? ? E[place]an Diabetes Association-Support group line: www.professional.diabetes.org ? ? E[place]an Heart Association: www.heart.org or 6-771-SYL-USA-1 ( ) [employer] MyPlate: www.Digilabmyplate.gov Have labs drawn Lifestyle No Rere Kaufman [...] on filedocumented in this encounter Care Teams Oracle Financial Application Developer Relationship Specialty [place] [address] [address] [place] [address] PCP - General Internal Medicine 01/26/22 [place] [address] [address] Ophthalmology 04/06/16 Fawn Ramon DPM [address] [address] [place] [address] Podiatry 01/24/21 documented as of this encounter
--- OUTSIDE RECORDS SUMMARY | 2024-04-03 02:26 | XMS_ITS | Encounter Summary ---
Author Organization [facility] Address [address] [place] [address] Care Team Providers Care Media Relations Coordinator Name Role Phone Ricco Andrew MD Unavailable [phone] Fawn Ramon DPM Unavailable Chris Aden MD Primary Care Provider [phone] Chris Aden MD Unavailable Reason for Visit * Reason Onset Date Comments Outreach Preventive Care 12/16/2022 Encounter Details Date Type Department Care Team (Late st Contact Info) Description 12/16/2022 Patient Outreach [facility] - Care Coordination [address] [place] [phone] Elham Cummings Outreach Preventive Care Social History [...] touch. I spoke with the patient or career professional. Health Maintenance reviewed for open care gaps [...] st Contact Info) Description 04/07/2024 10:00 AM TELETYPE TECHNICIAN Office Visit [address] [place] [address] Evelin Blanco, AUTOMOBILE OR TRUCK RENTAL DISPATCHER-EDGE FINISHER [address] [place] [address] 06/06/2024 2:00 PM CDT Office Visit [facility] [phone] [place] [address] [address] [place] [address] [place] [address] [place] [address] documented as of this encounter Goals Goal Patient Goal Type Associated Problems Recent Progress Patient-Stated? Author Blood Pressure < 140/90 Blood Pressure 96/68(2023 2:34 PM TELETYPE TECHNICIAN) Rere Vargas Note: Caring for Your [...] Related Tools, and click ? HBP Trackers.? 1-820-SQD-USA-1 or ( ) National Heart, Lung and Blood [place]: http://www.nhlbi.nih.gov/health/infoctr/index.htm Blood Pressure < 140/90 Blood Pressure 96/68(2023 2:34 PM TELETYPE TECHNICIAN) Rere Vargas Note: Caring for Your [...] Related Tools, and click ? HBP Trackers.? 3-230-VDV-USA-1 or ( ) National Heart, Lung and Blood [place]: http://www.nhlbi.nih.gov/health/infoctr/index.htm Blood Pressure < 140/90 Blood Pressure 96/68(2023 2:34 PM TELETYPE TECHNICIAN) Cassie Parks Note: Caring for Your [...] Related Tools, and click ? HBP Trackers.? 6-293-WDT-USA-1 or ( ) National Heart, Lung and Blood [place]: http://www.nhlbi.nih.gov/health/infoctr/index.htm Exercise 5X per week (30 min [...] diabetes: ? ? Barbadian Diabetes Association: www.diabetes.org 0-651-QCXFZAOE ( ) ? ? Barbadian Diabetes Association-Support group line: www.professional.diabetes.org ? ? Barbadian Heart Association: www.heart.org or 9-859-KOW-USA-1 ( ) Sophie [employer] Juliet MyPlate: www.Resale Therapymyplate.gov Have labs drawn Lifestyle Rere Vargas Note: [...] on filedocumented in this encounter Care Teams Media Relations Coordinator Relationship Specialty Start [place] [address] [place] [address] PCP - General Internal Medicine 01/26/22 [place] [address] [place] [address] PCP - [facility] 02/19/22 [place] [address] [facility] [address] [place] [phone] Ophthalmology 04/06/16 Fa[place] Ram[place] [address] [place], [place] [address] Podiatry 01/24/21 documented as of this encounter
--- OUTSIDE RECORDS SUMMARY | 2024-04-03 02:26 | XMS_ITS | Encounter Summary ---
Author Organization [facility] Address [address] [facility] [place] [address] Care Team Providers Care Tool And Die Assembler Name Role Phone Ricco Andrew MD Unavailable [phone] Fawn Ramon DPM Unavailable [phone] Chris Aden MD Primary Care Provider [phone] Chris Aden MD Unavailable Reason for Visit * Reason Comments Refill Request Encounter Details Date Type Department Care Team (Late st Contact Info) Description 03/18/2023 Refill [facility] - Family Medicine [address] [place] [address] Chris Aden MD [address] [place] [address] Refill Request Social History Tobacco Use [...] discontinued on 10/27/2022 by Chris Aden MD UMER ASSISTANT documented in this encounter Plan of Treatment Upcoming Encounters Date Type Department Care Team (Late st Contact Info) Description 04/07/2024 10:00 AM COSTUMER ASSISTANT Office Visit [facility] [address] [place] [address] [address] [place] [address] Evelin Blanco APRN-CNP [address] [address] 06/06/2024 2:00 PM CDT Office Visit [facility] [address] [place] [address] [address] [place] [address] Chris Aden [place] [address] [place] [phone] documented as of this encounter Goals Goal Patient Goal Type Associated Problems Recent Progress Patient-Stated? Author Blood Pressure < 140/90 Blood Pressure 96/68(2023 2:34 PM COSTUMER ASSISTANT) Rere Vargas Note: Caring for Your [...] Where can I go for more information? Bulgarian Heart Association National Center: http://www.americanheart.org 1. In the top header, click ? Conditions? . 2. In the top header, click ? high blood pressure.? 3. For a printable blood pressure tracker, scroll toward the bottom of the page to Related Tools, and click ? HBP Trackers.? 0-861-DLZ-USA-1 or ( ) National Heart, Lung and Blood [place]: http://www.nhlbi.nih.gov/health/infoctr/index.htm Blood Pressure < 140/90 Blood Pressure 96/68(2023 2:34 PM COSTUMER ASSISTANT) Rere Vargas Note: Caring for Your [...] Where can I go for more information? Bulgarian Heart Association National Center: http://www.americanheart.org 1. In the top header, click ? Conditions? . 2. In the top header, click ? high blood pressure.? 3. For a printable blood pressure tracker, scroll toward the bottom of the page to Related Tools, and click ? HBP Trackers.? 4-250-OTB-USA-1 or ( ) National Heart, Lung and Blood [place]: http://www.nhlbi.nih.gov/health/infoctr/index.htm Blood Pressure < 140/90 Blood Pressure 96/68(2023 2:34 PM COSTUMER ASSISTANT) Cassie Parks Note: Caring for Your [...] Where can I go for more information? Bulgarian Heart Association National Center: http://www.americanheart.org 1. In the top header, click ? Conditions? . 2. In the top header, click ? high blood pressure.? 3. For a printable blood pressure tracker, scroll toward the bottom of the page to Related Tools, and click ? HBP Trackers.? 9-467-GUN-USA-1 or ( ) National Heart, Lung and Blood [place]: http://www.nhlbi.nih.gov/health/infoctr/index.htm Exercise 5X per week (30 min per time) Exercise Rere Vargas Note: The Bulgarian College of Sports Medicine recommends all adults [...] how to manage your diabetes: ? ? Bulgarian Diabetes Association: www.diabetes.org 2-164-OLEWDLSG ( ) ? ? Bulgarian Diabetes Association-Support group line: www.professional.diabetes.org ? ? Bulgarian Heart Association: www.heart.org or 7-617-HKF-USA-1 ( ) [employer] MyPlate: www.Vive Uniquemyplate.gov Have labs drawn Lifestyle No Rere Kaufman [...] filedocumented in this encounter Care Teams Tool And Die Assembler Relationship Specialty [place] [address] [address] [place] [address] PCP - General Internal Medicine 01/26/22 [place] [address] [address] [place] [address] PCP - [facility] 02/19/22 [place] [address] [address] Ophthalmology 04/06/16 Fawn Ramon DPM [address] [address] Podiatry 01/24/21 documented as of this encounter
--- OUTSIDE RECORDS SUMMARY | 2024-04-03 02:26 | XMS_ITS | Encounter Summary ---
Author Organization [facility] Address [address] [facility] [place] [address] Care Team Providers Care Director Of Religious Activities Name Role Phone Ricco Andrew MD Unavailable [phone] Fawn Ramon DPM Unavailable [phone] Chris Aden MD Primary Care Provider [phone] Chris Aden MD Unavailable Reason for Visit * Reason Onset Date Comments Results 08/26/2022 Encounter Details Date Type Department Care Team (Late st Contact Info) Description 08/26/2022 Telephone [facility] - Family Medicine [address] [facility] [address] [place] [address] Evelin Blanco, JOSETTE-BOOTH MANAGER [address] [facility] [address] [place] [address] Results Social History Tobacco Use [...] st Contact Info) Description 04/07/2024 10:00 AM POISING INSPECTOR Office Visit [address] [address] Evelin Blanco APRN-CNP [phone] [place] [phone] 06/06/2024 2:00 PM CDT Office Visit [address] [address] Chris Aden MD [address] [place] [address] documented as of this encounter Goals Goal Patient Goal Type Associated Problems Recent Progress Patient-Stated? Author Blood Pressure < 140/90 Blood Pressure 96/68(2023 2:34 PM POISING INSPECTOR) Rere Vargas Note: Caring for Your [...] Related Tools, and click ? HBP Trackers.? 2-514-XCT-USA-1 or ( ) National Heart, Lung and Blood [place]: http://www.nhlbi.nih.gov/health/infoctr/index.htm Blood Pressure < 140/90 Blood Pressure 96/68(2023 2:34 PM POISING INSPECTOR) Rere Vargas Note: Caring for Your [...] Related Tools, and click ? HBP Trackers.? 4-736-YSM-USA-1 or ( ) National Heart, Lung and Blood [place]: http://www.nhlbi.nih.gov/health/infoctr/index.htm Blood Pressure < 140/90 Blood Pressure 96/68(2023 2:34 PM POISING INSPECTOR) Cassie Parks Note: Caring for Your High [...] Related Tools, and click ? HBP Trackers.? 7-472-PUX-USA-1 or ( ) National Heart, Lung and Blood [place]: http://www.nhlbi.nih.gov/health/infoctr/index.htm Exercise 5X per week (30 min [...] diabetes: ? ? [place] Diabetes Association: www.diabetes.org 9-606-DZZVMOHL ( ) ? ? German Diabetes Association-Support group line: www.professional.diabetes.org ? ? [place] Heart Association: www.heart.org or 4-945-OQZ-USA-1 ( ) [employer] MyPlate: www.MyLorrymyplate.gov Have labs drawn Lifestyle Rere Vargas Note: [...] on filedocumented in this encounter Care Teams Director Of Religious Activities Relationship Specialty [place] [address] [facility] [address] PCP - General Internal Medicine 01/26/22 [place] [address] [place] [phone] PCP - Attributed-[facility] 02/19/22 [place] [address] [facility] [address] [place] [address] Ophthalmology 04/06/16 Fawn Ramon DPM [address] [place] [address] Podiatry 01/24/21 documented as of this encounter
--- OUTSIDE RECORDS SUMMARY | 2024-04-03 02:27 | XMS_ITS | Encounter Summary ---
Author Organization [facility] Address [address] [facility] [place] [address] Care Team Providers Care Aquatic Ecologist Name Role Phone Ricco Andrew MD Unavailable [phone] Rosana Solo MD Unavailable [phone] Reason for Visit * Reason Comments Follow-up Diabetes Encounter Details Date Type Department Care Team (Late st Contact Info) Description 03/04/2020 2:00 PM ART GALLERY DIRECTOR Office Visit [facility] - Family Medicine [address] [place], [place] [id number] Rosana Solo MD [facility] [address] Type 2 diabetes mellitus with diabetic neuropathy, unspecified whether termite exterminator helper insulin use (HCC) (Primary Dx); Type 2 [...] COVID-19? Unable to assess 03/04/2020 2:14 PM ART GALLERY DIRECTOR documented as of this encounter Last Filed Vital Signs Vital Sign Reading Time Taken Comments Blood Pressure 124/68 03/04/2020 1:39 PM ART GALLERY DIRECTOR Pulse 84 03/04/2020 1:39 PM ART GALLERY DIRECTOR Temperature 36 ??C (96.8 ??F) 03/04/2020 1:39 PM ART GALLERY DIRECTOR Respiratory Rate 20 03/04/2020 1:39 PM ART GALLERY DIRECTOR Oxygen Saturation - - Inhaled Oxygen Concentration - - Weight 77.1 kg (170 lb) 03/04/2020 1:39 PM ART GALLERY DIRECTOR Height 175.3 cm (5' 9) 03/04/2020 1:39 PM ART GALLERY DIRECTOR Body Mass Index 25.1 03/04/2020 1:39 PM ART GALLERY DIRECTOR documented in this encounter Patient Instructions * Patient Instructions* Rosana Solo MD - 03/04/2020 2:11 PM ART GALLERY DIRECTOR Caring For Your Diabetes ?? Follow a diabetic diet with healthy meals that are low salt, low fat, high fiber. For more information on a diabetic diet, please go to the [place] Diabetes Association website at www.diabetes.org and select [...] minutes if trying to lose weight) The [place] College of [employer] Medicine recommends [...] issues. ?? See me in 6 months GALLERY DIRECTOR documented in this encounter Progress Notes * [...] - on Namenda. Primarily short-term impairment. . 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 Still likes to sleep [...] diabetic neuropathy, unspecified whether long-term insulin use - Hgb A1c goal <8, [...] given to the patient. Rosana Solo MD GALLERY DIRECTOR documented in this encounter Plan of Treatment Upcoming Encounters Date Type Department Care Team (Late st Contact Info) Description 04/07/2024 10:00 AM ART GALLERY DIRECTOR Office Visit [address] [address] Evelin Blanco, DIRECTOR HRIS-BILINGUAL SALES ASSISTANT [id number] [place] [address] 06/06/2024 2:00 PM CDT Office Visit [address] [address] Chris Aden MD [address] [place] [address] documented as of this encounter Goals Goal Patient Goal Type Associated Problems Recent Progress Patient-Stated? Author Blood Pressure < 140/90 Blood Pressure 96/68(12/16/ 2024 2:34 PM ART GALLERY DIRECTOR) Rere Vargas Note: Caring for Your [...] Related Tools, and click ? HBP Trackers.? 5-101-FNS-USA-1 or ( ) National Heart, Lung and Blood [place]: http://www.nhlbi.nih.gov/health/infoctr/index.htm Blood Pressure < 140/90 Blood Pressure 96/68(2023 2:34 PM ART GALLERY DIRECTOR) Rere Vargas Note: Caring for Your [...] Related Tools, and click ? HBP Trackers.? 9-359-OIO-USA-1 or ( ) National Heart, Lung and Blood [place]: http://www.nhlbi.nih.gov/health/infoctr/index.htm Blood Pressure < 140/90 Blood Pressure 96/68(2023 2:34 PM ART GALLERY DIRECTOR) Cassie Parks Note: Caring for Your [...] Related Tools, and click ? HBP Trackers.? 0-252-BND-USA-1 or ( ) National Heart, Lung and Blood [place]: http://www.nhlbi.nih.gov/health/infoctr/index.htm Exercise 5X per week (30 min [...] diabetes: ? ? [place] Diabetes Association: www.diabetes.org 4-253-WYLNAETT ( ) ? ? [place] Diabetes Association-Support group line: www.professional.diabetes.org ? ? [place] Heart Association: www.heart.org or 2-714-BYC-USA-1 ( ) [employer] MyPlate: www.Cambrian Genomicsmyplate.gov Have labs drawn Lifestyle Rere Vargas Note: [...] diabetic neuropathy, unspecified whether long-term insulin use (HCC)- Primary Type 2 diabetes mellitus with stage 3a chronic kidney disease, without long-term current use of insulin (HCC) Diabetic eye exam (HCC) Examination of eyes and vision Alzheimer's dementia without behavioral disturbance, unspecified timing of dementia onset (HCC) Hypothyroidism, adult Other specified acquired hypothyroidism Stage 3a chronic kidney disease (HCC) Skin-picking disorder documented in this encounter Care Teams Aquatic Ecologist Relationship Specialty Start Date End Date Rosana Solo MD [address] [facility] [address] [place] [address] PCP - Attributed-[facility] 02/19/19 [place] [address] [facility] [address] [place] [phone] Ophthalmology 04/06/16 documented as of this encounter
--- OUTSIDE RECORDS SUMMARY | 2024-04-03 02:27 | XMS_ITS | Encounter Summary ---
Author Organization [facility] Address [address] [place] [address] Care Team Providers Care Senior Net Architect Name Role Phone Ricco Andrew MD Unavailable Rosana Solo MD Unavailable Reason for Visit * Reason Onset Date Comments MEDICATION REFILL 03/06/2020 Encounter Details Date Type Department Care Team (Late Contact Info) Description 03/06/2020 Refill [facility] Family [facility] [id number] [place] [address] [facility] [address] [address] MEDICATION REFILL Social History Tobacco [...] COVID-19? Unable to assess 03/04/2020 2:14 PM INSURANCE INSPECTOR documented as of this encounter Plan of Treatment Upcoming Encounters Date Type Department Care Team (Late Contact Info) Description 04/07/2024 10:00 AM INSURANCE INSPECTOR Office Visit [facility] [address] [facility] [address] [place] [address] Evelin Blanco APRN-CNP [address] [facility] [address] [place] [address] 06/06/2024 2:00 PM CDT Office Visit [facility] [address] [facility] [address] [place] [address] [place] [address] [facility] [address] [place] [address] documented as of this encounter Goals Goal Patient Goal Type Associated Problems Recent Progress Patient-Stated? Author Blood Pressure < 140/90 Blood Pressure 96/68(2023 2:34 PM INSURANCE INSPECTOR) Rere Vargas Note: Caring for Your [...] Related Tools, and click ? HBP Trackers.? 9-673-JXQ-USA-1 or ( ) National Heart, Lung and Blood [place]: http://www.nhlbi.nih.gov/health/infoctr/index.htm Blood Pressure < 140/90 Blood Pressure 96/68(2023 2:34 PM INSURANCE INSPECTOR) Rere Vargas Note: Caring for Your [...] Related Tools, and click ? HBP Trackers.? 4-829-XLG-USA-1 or ( ) National Heart, Lung and Blood [place]: http://www.nhlbi.nih.gov/health/infoctr/index.htm Blood Pressure < 140/90 Blood Pressure 96/68(2023 2:34 PM INSURANCE INSPECTOR) Cassie Parks Note: Caring for Your [...] Related Tools, and click ? HBP Trackers.? 0-905-CTW-USA-1 or ( ) National Heart, Lung and Blood [place]: http://www.nhlbi.nih.gov/health/infoctr/index.htm Exercise 5X per week (30 min per time) Exercise Rere Vargas Note: The [place] [employer] Medicine [...] diabetes: ? ? [place] Diabetes Association: www.diabetes.org 8-354-YWYWYTCN ( ) ? ? [place] Diabetes Association-Support group line: www.professional.diabetes.org ? ? [place] Heart Association: www.heart.org or 1-902-KXR-USA-1 ( ) [employer] MyPlate: www.Inovise Medicalmyplate.gov Have labs drawn Lifestyle No Rere Kaufman [...] on filedocumented in this encounter Care Teams Senior Net Architect Relationship Specialty Start Date End Date Rosana Solo MD [address] [place] [address] PCP - Attributed-[facility] 02/19/19 [place] [address] [facility] [address] [place] [phone] Ophthalmology 04/06/16 documented as of this encounter
--- OUTSIDE RECORDS SUMMARY | 2024-04-03 02:27 | XMS_ITS | Encounter Summary ---
Author Organization [facility] Address [address] [facility] [address] [place] [address] Care Team Providers Care Clinical Informatics Manager Name Role Phone Ricco Andrew MD Unavailable [phone] Rosana Solo MD Unavailable Encounter Details Date Type Department [...] COVID-19? Unable to assess 03/04/2020 2:14 PM ARRESTING GEAR OPERATOR documented as of this encounter Plan of Treatment Upcoming Encounters Date Type Department Care Team (Late st Contact Info) Description 04/07/2024 10:00 AM ARRESTING GEAR OPERATOR Office Visit [facility] - Family Medicine [address] [facility] [address] [place] [address] Evelin Blanco, MELTER SUPERVISOR-WEB SERVICES DEVELOPER [address] [facility] [address] [place] [address] 06/06/2024 2:00 PM CDT Office Visit [facility] Family Medicine [address] [facility] [address] [place] [address] [place] [address] [facility] [address] [place] [address] [place] [phone] documented as of this encounter Goals Goal Patient Goal Type Associated Problems Recent Progress Patient-Stated? Author Blood Pressure < 140/90 Blood Pressure 96/68(2023 2:34 PM ARRESTING GEAR OPERATOR) Rere Vargas Note: Caring for Your [...] Where can I go for more information? [place] Heart Association National Center: http://www.americanheart.org 1. In the top header, click ? Conditions? . 2. In the top header, click ? high blood pressure.? 3. For a printable blood pressure tracker, scroll toward the bottom of the page to Related Tools, and click ? HBP Trackers.? 6-613-NKP-USA- or ( ) National Heart, Lung and Blood [place]: http://www.nhlbi.nih.gov/health/infoctr/index.htm Blood Pressure < 140/90 Blood Pressure 96/68(2023 2:34 PM ARRESTING GEAR OPERATOR) No Rere Kaufman Note: Caring for [...] Where can I go for more information? [place] Heart Association National Center: http://www.americanheart.org 1. In the top header, click ? Conditions? . 2. In the top header, click ? high blood pressure.? 3. For a printable blood pressure tracker, scroll toward the bottom of the page to Related Tools, and click ? HBP Trackers.? 9-402-YJI-USA-1 or ( ) National Heart, Lung and Blood [place]: http://www.nhlbi.nih.gov/health/infoctr/index.htm Blood Pressure < 140/90 Blood Pressure 96/68(2023 2:34 PM ARRESTING GEAR OPERATOR) No Cassie Marie Note: Caring for Your [...] Where can I go for more information? [place] Heart Association National Center: http://www.americanheart.org 1. In the top header, click ? Conditions? . 2. In the top header, click ? high blood pressure.? 3. For a printable blood pressure tracker, scroll toward the bottom of the page to Related Tools, and click ? HBP Trackers.? 2-053-IHB-USA-1 or ( ) National Heart, Lung and Blood [place]: http://www.nhlbi.nih.gov/health/infoctr/index.htm Exercise 5X per week (30 min per time) Exercise Rere Vargas Note: The [place] College of Sports Medicine recommends all adults [...] how to manage your diabetes: ? ? [place] Diabetes Association: www.diabetes.org 8-635-IBDFSWQL ( ) ? ? [place] Diabetes Association-Support group line: www.professional.diabetes.org ? ? [place] Heart Association: www.heart.org or 3-114-OGI-USA-1 ( ) [employer] MyPlate: www.Parle Innovationmyplate.gov Have labs drawn Lifestyle Rere Vargas Note: [...] on filedocumented in this encounter Care Teams Clinical Informatics Manager Relationship Specialty Start Date End Date Rosana Solo MD [address] [facility] [address] [place] [phone] PCP - Attributed-[facility] 02/19/19 [place] [address] [facility] [address] [place] [address] Ophthalmology 04/06/16 documented as of this encounter
--- OUTSIDE RECORDS SUMMARY | 2024-04-03 02:27 | XMS_ITS | Encounter Summary ---
Author Organization [facility] Address [address] [facility] [place] [address] Care Team Providers Care Dairy Products Maker Name Role Phone Ricco Andrew MD Unavailable [phone] Reason for Visit * Reason Comments Refill Request Encounter Details Date Type Department Care Team (Late st Contact Info) Description 02/15/2019 Refill [facility] - Family Medicine [address] [place] [address] Rosana Solo MD [address] [address] Refill Request Social History Tobacco [...] TAKE 1 TABLET BY MOUTH EVERY MORNING BROKER documented in this encounter Plan of Treatment Upcoming Encounters Date Type Department Care Team (Late st Contact Info) Description 04/07/2024 10:00 AM LOAN BROKER Office Visit [facility] [id number] [place] [address] [address] [place] [address] Evelin Blanco APRN-DENIS [address] [facility] [address] [place] [address] 06/06/2024 2:00 PM CDT Office Visit [facility] [id number] [place] [address] [address] [place] [address] [place] [address] [address] documented as of this encounter Goals Goal Patient Goal Type Associated Problems Recent Progress Patient-Stated? Author Blood Pressure < 140/90 Blood Pressure 96/68(2023 2:34 PM LOAN BROKER) Rere Vargas Note: Caring for Your High [...] Related Tools, and click ? HBP Trackers.? 7-144-NHM-USA-1 or ( ) National Heart, Lung and Blood [place]: http://www.nhlbi.nih.gov/health/infoctr/index.htm Blood Pressure < 140/90 Blood Pressure 96/68(2023 2:34 PM LOAN BROKER) Rere Vargas Note: Caring for Your High [...] Related Tools, and click ? HBP Trackers.? 8-552-HBW-USA-1 or ( ) National Heart, Lung and Blood [place]: http://www.nhlbi.nih.gov/health/infoctr/index.htm Exercise 5X per week (30 min [...] diabetes: ? ? [place] Diabetes Association: www.diabetes.org 9-270-CDWUXWDM ( ) ? ? [place] Diabetes Association-Support group line: www.professional.diabetes.org ? ? [place] Heart Association: www.heart.org or 1-263-NUZ-[facility]-1 ( ) [employer] MyPlate: www.Matter.iomyplate.gov Have labs drawn Lifestyle Rere Vargas Note: [...] on filedocumented in this encounter Care Teams Dairy Products Maker Relationship Specialty [place] [address] [address] Ophthalmology 04/06/16 documented as of this encounter
--- OUTSIDE RECORDS SUMMARY | 2024-04-03 02:27 | XMS_ITS | Encounter Summary ---
Author Organization [facility] Address [address] [facility] [place] [address] Care Team Providers Care Flooring Machine Feeder Name Role Phone Ricco Andrew MD Unavailable [phone] Rosana Solo MD Unavailable [phone] Reason for Visit * Reason Comments Refill Request Encounter Details Date Type Department Care Team (Late st Contact Info) Description 03/26/2020 Refill [facility] - Family Medicine [address] [place], [place] [phone] Rosana Solo MD [address] [place] [address] Refill Request Social History Tobacco Use [...] COVID-19? No / Unsure 03/11/2020 2:12 PM ANESTHESIOLOGY TEACHER documented as of this encounter Miscellaneous Notes * Telephone Encounter - Alison Lowe - 03/26/2020 3:54 PM CST Last OV: 03/04/2020 Next OV: 09/02/2020 Last refill: 07/24/2019 Requested Prescriptions Pending Prescriptions Disp Refills ??? loratadine (CLARITIN) 10 MG tablet [Pharmacy Med Name: LORATADINE 10 MG TABLET] 90 tablet 3 Sig: TAKE 1 TABLET BY MOUTH EVERY DAY THESIOLOGY TEACHER documented in this encounter Plan of Treatment Upcoming Encounters Date Type Department Care Team (Late st Contact Info) Description 04/07/2024 10:00 AM ANESTHESIOLOGY TEACHER Office Visit [facility] [address] [facility] [address] [place] [address] Evelin Blanco APRN-CNP [address] [facility] [address] [place] [address] 06/06/2024 2:00 PM CDT Office Visit [facility] [address] [facility] [address] [place] [address] [place] [address] [facility] [address] [place] [address] documented as of this encounter Goals Goal Patient Goal Type Associated Problems Recent Progress Patient-Stated? Author Blood Pressure < 140/90 Blood Pressure 96/68(2023 2:34 PM ANESTHESIOLOGY TEACHER) Rere Vargas Note: Caring for Your [...] Where can I go for more information? [place] Heart Association National Center: http://www.americanheart.org 1. In the top header, click ? Conditions? . 2. In the top header, click ? high blood pressure.? 3. For a printable blood pressure tracker, scroll toward the bottom of the page to Related Tools, and click ? HBP Trackers.? 4-765-VRU-USA-1 or ( ) National Heart, Lung and Blood [place]: http://www.nhlbi.nih.gov/health/infoctr/index.htm Blood Pressure < 140/90 Blood Pressure 96/68(2023 2:34 PM ANESTHESIOLOGY TEACHER) Rere Vargas Note: Caring for Your [...] Where can I go for more information? [place] Heart Association National Center: http://www.americanheart.org 1. In the top header, click ? Conditions? . 2. In the top header, click ? high blood pressure.? 3. For a printable blood pressure tracker, scroll toward the bottom of the page to Related Tools, and click ? HBP Trackers.? 4-829-JDU-USA-1 or ( ) National Heart, Lung and Blood [place]: http://www.nhlbi.nih.gov/health/infoctr/index.htm Blood Pressure < 140/90 Blood Pressure 96/68(2023 2:34 PM ANESTHESIOLOGY TEACHER) Cassie Parks Note: Caring for Your [...] Where can I go for more information? [place] Heart Association National Center: http://www.americanheart.org 1. In the top header, click ? Conditions? . 2. In the top header, click ? high blood pressure.? 3. For a printable blood pressure tracker, scroll toward the bottom of the page to Related Tools, and click ? HBP Trackers.? 2-306-PJH-USA-1 or ( ) National Heart, Lung and Blood [place]: http://www.nhlbi.nih.gov/health/infoctr/index.htm Exercise 5X per week (30 min per time) Exercise No Rere Kaufman Note: The [place] College of Sports Medicine recommends all adults [...] how to manage your diabetes: ? ? [place] Diabetes Association: www.diabetes.org 4-160-YHTMTMPZ ( ) ? ? [place] Diabetes Association-Support group line: www.professional.diabetes.org ? ? [place] Heart Association: www.heart.org or 3-745-JPJ-USA-1 ( ) [employer] MyPlate: www.SendRRmyplate.gov Have labs drawn Lifestyle No Rere Kaufman [...] on filedocumented in this encounter Care Teams Flooring Machine Feeder Relationship Specialty Start Date End Date Rosana Solo MD [address] [place] [address] PCP - Attributed-[facility] 02/19/19 [place] [address] [place] [phone] Ophthalmology 04/06/16 documented as of this encounter
--- OUTSIDE RECORDS SUMMARY | 2024-04-03 02:27 | XMS_ITS | Encounter Summary ---
Author Organization [facility] Address [address] [facility] [place] [address] Care Team Providers Care Automotive Customer Experience Advisor Name Role Phone Ricco Andrew MD Unavailable [phone] Rosana Solo MD Unavailable [phone] Reason for Visit * Reason Comments Diabetes Follow-up Encounter Details Date Type Department Care Team (Late st Contact Info) Description 08/30/2019 2:00 PM CDT Office Visit [facility] - Family Medicine [address] [place], [place] [id number] Rosana Sool MD [facility] [address] Type 2 diabetes mellitus with diabetic neuropathy, unspecified whether intermediate project manager insulin use (HCC) (Primary Dx); Type 2 diabetes mellitus with stage 3 chronic kidney disease, unspecified whether long-term insulin use; CKD (chronic kidney disease) stage [...] Diabetes ?? Get labs done today at [facility] Directions to [employer]: [facility] is located on the 1st floor of this building. Please take the elevators down to the lobby.As soon as you exit the elevator, take an immediate left out of the elevators and then go left downthe first hallway. [facility] is located in [address] on the [...] - on [place]. Primarily short-term impairment. . 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 Still likes to sleep [...] neuropathy, unspecified whether long-term insulin use - Plan: RISK ADJUSTED VISIT, HEMOGLOBIN A1C W EAG, COMPREHENSIVE METABOLIC PANEL, CBC WITH DIFFERENTIAL, LIPID PROFILE REFLEX LDL DIRECT, MICROALB/CREAT RATIO URINE RANDOM PANEL Type 2 diabetes mellitus with stage 3 chronic kidney disease, unspecified whether intermediate project manager insulinuse - Plan: RISK ADJUSTED VISIT, HEMOGLOBIN [...] Contact Info) Description 04/07/2024 10:00 AM LEAD PRINCIPAL TECHNICAL ARCHITECT Office Visit [facility] [id number] [place] [address] [address] [place] [address] Evelin Blanco, JOSETTE-DONOR CENTER TECHNICIAN [address] [facility] [address] [place] [address] 06/06/2024 2:00 PM CDT Office Visit [facility] [id number] [place] [address] [address] [place] [address] [place] [address] [place] [address] documented as of this encounter Goals Goal Patient Goal Type Associated Problems Recent Progress Patient-Stated? Author Blood Pressure < 140/90 Blood Pressure 96/68(2023 2:34 PM LEAD PRINCIPAL TECHNICAL ARCHITECT) Rere Vargas Note: Caring for Your [...] Related Tools, and click ? HBP Trackers.? 9-539-QBC-USA-1 or ( ) National Heart, Lung and Blood [place]: http://www.nhlbi.nih.gov/health/infoctr/index.htm Blood Pressure < 140/90 Blood Pressure 96/68(2023 2:34 PM LEAD PRINCIPAL TECHNICAL ARCHITECT) Rere Vargas Note: Caring for Your [...] Related Tools, and click ? HBP Trackers.? 8-559-XGH-USA-1 or ( ) National Heart, Lung and Blood [place]: http://www.nhlbi.nih.gov/health/infoctr/index.htm Blood Pressure < 140/90 Blood Pressure 96/68(2023 2:34 PM LEAD PRINCIPAL TECHNICAL ARCHITECT) No Cassie Marie Note: Caring for Your [...] Related Tools, and click ? HBP Trackers.? 2-950-MUN-USA-1 or ( ) National Heart, Lung and Blood [place]: http://www.nhlbi.nih.gov/health/infoctr/index.htm Exercise 5X per week (30 [...] diabetes: ? ? [place] Diabetes Association: www.diabetes.org 0-029-OSBBYXNP ( ) ? ? [place] Diabetes Association-Support group line: www.professional.diabetes.org ? ? [place] Heart Association: www.heart.org or 6-109-RXN-USA-1 ( ) Xcedex MyPlate: www.Yamiseemyplate.gov Have labs drawn Lifestyle No Rere Kaufman [...] diabetes mellitus with diabetic neuropathy, unspecified whether intermediate project manager insulin use (HCC) Type 2 diabetes mellitus with stage 3 chronic kidney disease, unspecified whether long-term insulin use HEMOGLOBIN A1C W EAG Routine 08/30/2019 3:05 PM CDT Type 2 diabetes mellitus with diabetic neuropathy, unspecified whether long-term insulin use (HCC) Type 2 diabetes mellitus with stage 3 chronic kidney disease, unspecified whether intermediate project manager insulin use MICROALB/CREAT RATIO URINE RANDOM PANEL Routine 08/30/2019 3:05 PM CDT Type 2 diabetes mellitus with diabetic neuropathy, unspecified whether intermediate project manager insulin use (HCC) Type 2 diabetes mellitus with stage 3 chronic kidney disease, unspecified whether long-term insulin use CBC W AUTO DIFFERENTIAL Routine 08/30/2019 3:05 PM CDT Type 2 diabetes mellitus with diabetic neuropathy, unspecified whether long-term insulin use (HCC) Type 2 diabetes mellitus with stage 3 chronic kidney disease, unspecified whether intermediate project manager insulin use COMPREHENSIVE METABOLIC PANEL Routine 08/30/2019 3:05 PM CDT Type 2 diabetes mellitus with diabetic neuropathy, unspecified whether long-term insulin use (HCC) Type 2 diabetes mellitus with stage 3 chronic kidney disease, unspecified whether intermediate project manager insulin use TSH Routine 08/30/2019 3:05 PM CDT Hypothyroidism, adult T4 FREE Routine 08/30/2019 3:05 PM CDT Hypothyroidism, adult documented in this encounter Results * T4 FREE (08/30/2019 3:05 PM CDT) [facility] T4 Free 1.01 0.70 - 1.48 ng/dL [facility] ACCOUNT BILL Blood BLOOD SPECIMEN / Unknown 08/30/2019 3:05 PM CDT 08/30/2019 Narrative Resulting Agency Comment Lab Testing performed at: [facility] [address] ?? [place] [phone] Rosana Solo MD LAB - CHEMISTRY ORDNatasha CHAHAL Performing Organization Address City/[facility]/ZIP Co de Phone Number [facility] ACCOUNT BILL [address] [place] [address] * TSH (08/30/2019 3:05 PM CDT) [facility] TSH 2.9756 0.35 - 4.94 uIU/mL [facility] ACCOUNT BILL Blood BLOOD SPECIMEN / Unknown 08/30/2019 3:05 PM CDT 08/30/2019 Narrative Resulting Agency Comment Lab Testing performed at: [place] [address] ?? [place]AR[place] [id number] Rosana Solo MD LAB - CHEMISTRY MELYSSA CHAHAL Performing Organization Address City/[facility]/[place] Co de Phone Number [facility] ACCOUNT BILL [address] [place] [address] * MICROALB/CREAT RATIO URINE RANDOM PANEL (08/30/2019 3:05 PM CDT) [facility] Creatinine Urine 80.92 mg/dL LAB JAY ACCOUNT [...] Resulting Agency Comment Lab Testing performed at: [facility] [address] ?? [place] [id number] Rosana Solo MD LAB - URINE CHEMISTR Y ORDERABLES [facility] ACCOUNT BILL [address] [place] [address] * (ABNORMAL) LIPID PROFILE REFLEX LDL DIRECT [...] Resulting Agency Comment Lab Testing performed at: [address] ?? [facility] [phone] Rosana Solo MD LAB - CHEMISTRY ORDE RABLES Performing Organization Address [facility] de Phone Number [facility] ACCOUNT BILL [address] [place] [address] * (ABNORMAL) CBC WITH DIFFERENTIAL (08/30/2019 3:05 [...] x10E9/L [facility] ACCOUNT BILL Comment:MPV FL BLOOD ([facility]) 1 2.0 fl 9.4-12.9 Granulocytes % 64.6 [...] Resulting Agency Comment Lab Testing performed at: [address] ?? [facility] [phone] Rosana Solo MD LAB - HEMATOLOGY ORD ERABLES [facility] ACCOUNT BILL [address] [place] [address] * (ABNORMAL) COMPREHENSIVE METABOLIC PANEL (08/30/2019 3:05 [...] Resulting Agency Comment Lab Testing performed at: [address] ?? [facility] [id number] Rosana Solo MD LAB - CHEMISTRY MELYSSA CHAHAL [facility] ACCOUNT BILL [address] [place] [address] * (ABNORMAL) HEMOGLOBIN A1C W EAG (08/30/2019 3:05 PM CDT) Hemoglobin A1c 7.8(H) 4.2 - 5.6 % [facility] ACCOUNT BILL Estimated Average Glucose 177 mg/dL [facility] ACCOUNT BILL Comment: The following cutoff levels are recommended by [place] Diab etes Association. A1c ??> 6.5% : [...] Resulting Agency Comment Lab Testing performed at: [facility] [address] ?? [place] [id number] Rosana Solo MD LAB - CHEMISTRY MELYSSA CHAHAL [facility] ACCOUNT BILL [address] [place] [address] documented in this encounter Visit Diagnoses Diagnosis Type 2 diabetes mellitus with diabetic neuropathy, unspecified whether intermediate project manager insulin use (HCC)- Primary Type 2 diabetes mellitus with stage 3 chronic kidney disease, unspecified whether intermediate project manager insulin use (HCC) CKD (chronic kidney disease) stage 3, GFR 30-59 ml/min (HCC) Chronic kidney disease, Stage III (moderate) Alzheimer's dementia without behavioral disturbance, unspecified timing of dementia onset (HCC) Hypothyroidism, adult Other specified acquired hypothyroidism Skin-picking disorder documented in this encounter Care Teams Automotive Customer Experience Advisor Relationship Specialty Start Date End Date Rosana Solo MD [address] [facility] [address] [place] [address] PCP - Attributed-[facility] [place] 02/19/19 [place] [address] [facility] [address] [place] [address] Ophthalmology 04/06/16 documented as of this encounter
--- OUTSIDE RECORDS SUMMARY | 2024-04-03 02:27 | XMS_ITS | Encounter Summary ---
Author Organization [facility] Address [address] [facility] [place] [address] Care Team Providers Care Rn Disease Management Name Role Phone Ricco Andrew MD Unavailable [phone] Reason for Visit * Reason Comments Refill Request Encounter Details Date Type Department Care Team (Late st Contact Info) Description 08/22/2018 Refill [facility] - Family Medicine [address] [place], [place] [id number] Rosana Solo MD [facility] [address] [address] Refill Request Social History Tobacco [...] st Contact Info) Description 04/07/2024 10:00 AM STATE ARCHIVIST Office Visit [facility] [id number] [place] [address] [address] [place] [address] Evelin Blanco APRN-DENIS [address] [address] 06/06/2024 2:00 PM CDT Office Visit [address] [address] [place] [id number] [place] [address] documented as of this encounter Goals Goal Patient Goal Type Associated Problems Recent Progress Patient-Stated? Author Blood Pressure < 140/90 Blood Pressure 96/68(2023 2:34 PM STATE ARCHIVIST) Rere Vargas Note: Caring for Your High [...] Where can I go for more information? [place] Heart Association National Center: http://www.americanheart.org 1. In the top header, click ? Conditions? . 2. In the top header, click ? high blood pressure.? 3. For a printable blood pressure tracker, scroll toward the bottom of the page to Related Tools, and click ? HBP Trackers.? 2-660-YXG-USA-1 or ( ) National Heart, Lung and Blood [place]: http://www.nhlbi.nih.gov/health/infoctr/index.htm Blood Pressure < 140/90 Blood Pressure 96/68(2023 2:34 PM STATE ARCHIVIST) Rere Vargas Note: Caring for Your High [...] Where can I go for more information? [place] Heart Association National Center: http://www.americanheart.org 1. In the top header, click ? Conditions? . 2. In the top header, click ? high blood pressure.? 3. For a printable blood pressure tracker, scroll toward the bottom of the page to Related Tools, and click ? HBP Trackers.? 5-351-MWO-USA-1 or ( ) National Heart, Lung and Blood [place]: http://www.nhlbi.nih.gov/health/infoctr/index.htm Exercise 5X per week (30 min per time) Exercise Rere Vargas Note: The Ang[place] College of Sports Medicine recommends all adults [...] how to manage your diabetes: ? ? [place] Diabetes Association: www.diabetes.org 3-382-YHMDINHA ( ) ? ? [place] Diabetes Association-Support group line: www.professional.diabetes.org ? ? [place] Heart Association: www.heart.org or 4-165-QIF-[facility]-1 ( ) T[employer]In MyPlate: www.Black Rhino Groupmyplate.gov Have labs drawn Lifestyle Rere Vargas Note: [...] on filedocumented in this encounter Care Teams Rn Disease Management Relationship Specialty [place] [address] [address] Ophthalmology 04/06/16 documented as of this encounter
--- OUTSIDE RECORDS SUMMARY | 2024-04-03 02:27 | XMS_ITS | Encounter Summary ---
Author Organization [facility] Address [address] [place] [address] Care Team Providers Care Smt Operator Name Role Phone Ricco Andrew MD Unavailable [phone] Rosana Solo MD Unavailable [phone] Reason for Visit * Reason Comments Refill Request Encounter Details Date Type Department Care Team (Late st Contact Info) Description 02/27/2020 Refill [facility] - Family Medicine [address] [place], [place] [phone] Rosana Solo MD [address] [place] [address] Refill Request Social History Tobacco Use [...] COVID-19? No / Unsure 02/01/2020 10:49 AM PRESIDENT/GM PRODUCTION & LIVE EXPERIENCES documented as of this encounter Miscellaneous Notes * Telephone Encounter - Alison Lowe - 02/27/2020 1:42 PM CST Last OV: 11/07/2019 Next OV: 03/04/2020 Last refill: 04/17/2019 Requested Prescriptions Pending Prescriptions Disp Refills ??? memantine (NAMENDA) 5 MG tablet [Pharmacy Med Name: MEMANTINE HCL 5 MG TABLET] 180 tablet 3 Sig: TAKE 1 TABLETS BY MOUTH 2 TIMES DAILY IDENT/GM PRODUCTION & LIVE EXPERIENCES documented in this encounter Plan of Treatment Upcoming Encounters Date Type Department Care Team (Late st Contact Info) Description 04/07/2024 10:00 AM PRESIDENT/GM PRODUCTION & LIVE EXPERIENCES Office Visit [facility] [id number] [place] [address] [address] [place] [address] Evelin Blanco APRN-CNP [address] [address] 06/06/2024 2:00 PM CDT Office Visit [facility] [address] [facility] [address] [place] [address] [place] [id number] [place] [address] [address] [place] [address] documented as of this encounter Goals Goal Patient Goal Type Associated Problems Recent Progress Patient-Stated? Author Blood Pressure < 140/90 Blood Pressure 96/68(2023 2:34 PM PRESIDENT/GM PRODUCTION & LIVE EXPERIENCES) Rere Vargas Note: Caring for Your High [...] Related Tools, and click ? HBP Trackers.? 7-068-AOJ-USA-1 or ( ) National Heart, Lung and Blood [place]: http://www.nhlbi.nih.gov/health/infoctr/index.htm Blood Pressure < 140/90 Blood Pressure 96/68(2023 2:34 PM PRESIDENT/GM PRODUCTION & LIVE EXPERIENCES) Rere Vargas Note: Caring for Your High [...] Related Tools, and click ? HBP Trackers.? 9-133-XZR-USA-1 or ( ) National Heart, Lung and Blood [place]: http://www.nhlbi.nih.gov/health/infoctr/index.htm Blood Pressure < 140/90 Blood Pressure 96/68(2023 2:34 PM PRESIDENT/GM PRODUCTION & LIVE EXPERIENCES) Cassie Parks Note: Caring for Your High [...] Related Tools, and click ? HBP Trackers.? 0-403-TKR-USA-1 or ( ) National Heart, Lung and Blood [place]: http://www.nhlbi.nih.gov/health/infoctr/index.htm Exercise 5X per week (30 min [...] diabetes: ? ? [place] Diabetes Association: www.diabetes.org 4-037-ZUCXICLB ( ) ? ? Burmese Diabetes Association-Support group line: www.professional.diabetes.org ? ? Bur[place]ese Heart Association: www.heart.org or 9-256-QWL-USA-1 ( ) MENA360 MyPlate: www.[place]aw[place] Collegemyplate.gov Have labs drawn Lifestyle Rere Vargas Note: [...] on filedocumented in this encounter Care Teams Smt Operator Relationship Specialty Start Date End Date Rosaan Solo MD [address] [place] [address] PCP - Attributed-[facility] 02/19/19 [place] [address] [facility] [facility] [address] [place] [address] Ophthalmology 04/06/16 documented as of this encounter
--- OUTSIDE RECORDS SUMMARY | 2024-04-03 02:27 | XMS_ITS | Encounter Summary ---
Author Organization [facility] Address [address] [facility] [place] [address] Care Team Providers Care Community Mental Health Social Worker Name Role Phone Ricco Andrew MD Unavailable [phone] Rosana Solo MD Unavailable [phone] Encounter Details Date Type Department Care [...] st Contact Info) Description 04/07/2024 10:00 AM MEDIA BUYER Office Visit [facility] - Family Medicine [address] [facility] [address] [place], [place] [phone] Evelin Blanco, COMPOUND SPECIALIST-STADIUM MANAGER [address] [facility] [address] [place] [address] 06/06/2024 2:00 PM CDT Office Visit [facility] [address] [facility] [address] [place] [address] [place] [address] [facility] [address] [place] [address] [place] [address] documented as of this encounter Goals Goal Patient Goal Type Associated Problems Recent Progress Patient-Stated? Author Blood Pressure < 140/90 Blood Pressure 96/68(2023 2:34 PM MEDIA BUYER) Rere Vargas Note: Caring for Your High [...] Where can I go for more information? [place] Heart Association National Center: http://www.americanheart.org 1. In the top header, click ? Conditions? . 2. In the top header, click ? high blood pressure.? 3. For a printable blood pressure tracker, scroll toward the bottom of the page to Related Tools, and click ? HBP Trackers.? 1-088-OEB-USA- or ( ) National Heart, Lung and Blood [place]: http://www.nhlbi.nih.gov/health/infoctr/index.htm Blood Pressure < 140/90 Blood Pressure 96/68(2023 2:34 PM MEDIA BUYER) No Rere Kaufman Note: Caring for Your [...] Where can I go for more information? [place] Heart Association National Center: http://www.americanheart.org 1. In the top header, click ? Conditions? . 2. In the top header, click ? high blood pressure.? 3. For a printable blood pressure tracker, scroll toward the bottom of the page to Related Tools, and click ? HBP Trackers.? 6-493-JYS-USA-1 or ( ) National Heart, Lung and Blood [place]: http://www.nhlbi.nih.gov/health/infoctr/index.htm Blood Pressure < 140/90 Blood Pressure 96/68(2023 2:34 PM MEDIA BUYER) No Cassie Marie Note: Caring for Your [...] Where can I go for more information? Vietnamese Heart Association National Center: http://www.americanheart.org 1. In the top header, click ? Conditions? . 2. In the top header, click ? high blood pressure.? 3. For a printable blood pressure tracker, scroll toward the bottom of the page to Related Tools, and click ? HBP Trackers.? 4-861-XQO-USA-1 or ( ) National Heart, Lung and Blood [place]: http://www.nhlbi.nih.gov/health/infoctr/index.htm Exercise 5X per week (30 min per time) Exercise Rere Vargas Note: The Vietnamese College of Sports Medicine recommends all adults [...] how to manage your diabetes: ? ? [place] Diabetes Association: www.diabetes.org 9-126-MKMERCIY ( ) ? ? Vietnamese Diabetes Association-Support group line: www.professional.diabetes.org ? ? Vietnamese Heart Association: www.heart.org or 4-035-LLS-USA-1 ( ) [employer] MyPlate: www.JAB Broadbandmyplate.gov Have labs drawn Lifestyle Rere Vargas Note: [...] on filedocumented in this encounter Care Teams Community Mental Health Social Worker Relationship Specialty Start Date End Date Rosana Solo MD [address] [facility] [address] [place] [address] PCP - Attributed-[facility] 02/19/19 [place] [address] [facility] [facility] [address] [place] [address] Ophthalmology 04/06/16 documented as of this encounter
--- OUTSIDE RECORDS SUMMARY | 2024-04-03 02:27 | XMS_ITS | Encounter Summary ---
Author Organization [facility] Address [address] [facility] [place] [address] Care Team Providers Care Market Analysis Director Name Role Phone Ricco Andrew MD Unavailable [phone] Rosana Solo MD Unavailable [phone] Reason for Visit * Reason Comments Refill Request Encounter Details Date Type Department Care Team (Late Contact Info) Description 07/24/2019 Refill [facility] [address] [facility] [address] [place] [address] Rosana Solo MD [facility] [address] Refill Request Social History Tobacco [...] (Late Contact Info) Description 04/07/2024 10:00 AM SEWER AND CUTTER FINGER BUFF MATERIAL Office Visit [facility] [address] [facility] [address] [place] [address] [place], NIKITA Waters [address] [facility] [address] [place] [address] 06/06/2024 2:00 PM CDT Office Visit [facility] Medicine [address] [facility] [address] [place], [place] [phone] [place] [address] [facility] [address] [place] [address] documented as of this encounter Goals Goal Patient Goal Type Associated Problems Recent Progress Patient-Stated? Author Blood Pressure < 140/90 Blood Pressure 96/68(2023 2:34 PM SEWER AND CUTTER FINGER BUFF MATERIAL) Rere Vargas Note: Caring for Your High [...] Where can I go for more information? [place] Heart Association National Center: http://www.americanheart.org 1. In the top header, click ? Conditions? . 2. In the top header, click ? high blood pressure.? 3. For a printable blood pressure tracker, scroll toward the bottom of the page to Related Tools, and click ? HBP Trackers.? 3-170-UANUSA- or ( ) National Heart, Lung and Blood [place]: http://www.nhlbi.nih.gov/health/infoctr/index.htm Blood Pressure < 140/90 Blood Pressure 96/68(2023 2:34 PM SEWER AND CUTTER FINGER BUFF MATERIAL) Rere Vargas Note: Caring for Your High [...] Where can I go for more information? [place] Heart Association National Center: http://www.americanheart.org 1. In the top header, click ? Conditions? . 2. In the top header, click ? high blood pressure.? 3. For a printable blood pressure tracker, scroll toward the bottom of the page to Related Tools, and click ? HBP Trackers.? 1-985-CABUSA- or ( ) National Heart, Lung and Blood [place]: http://www.nhlbi.nih.gov/health/infoctr/index.htm Blood Pressure < 140/90 Blood Pressure 96/68(2023 2:34 PM SEWER AND CUTTER FINGER BUFF MATERIAL) No Cassie Marie Note: Caring for Your [...] Where can I go for more information? [place] Heart Association National Center: http://www.americanheart.org 1. In the top header, click ? Conditions? . 2. In the top header, click ? high blood pressure.? 3. For a printable blood pressure tracker, scroll toward the bottom of the page to Related Tools, and click ? HBP Trackers.? 5-404-DTT-USA-1 or ( ) National Heart, Lung and Blood [place]: http://www.nhlbi.nih.gov/health/infoctr/index.htm Exercise 5X per week (30 min per time) Exercise Rere Vargas Note: The [place] College of Sports Medicine recommends all adults [...] how to manage your diabetes: ? ? [place] Diabetes Association: www.diabetes.org 5-402-PMNNCMJB ( ) ? ? [place] Diabetes Association-Support group line: www.professional.diabetes.org ? ? [place] Heart Association: www.heart.org or 3-571-SSQ-USA-1 ( ) S[employer] MyPlate: www.OLIVERS Apparelmyplate.gov Have labs drawn Lifestyle Rere Vargas Note: [...] on filedocumented in this encounter Care Teams Market Analysis Director Relationship Specialty Start Date End Date Rosana Solo MD [address] [facility] [address] [place] [address] PCP - Attributed-[facility] 02/19/19 [place] [address] [facility] [address] [place] [address] Ophthalmology 04/06/16 documented as of this encounter
--- OUTSIDE RECORDS SUMMARY | 2024-04-03 02:27 | XMS_ITS | Encounter Summary ---
Author Organization [facility] Address [address] [place] [address] Care Team Providers Care Tailer Off Name Role Phone Ricco Andrew MD Unavailable Rosana Solo MD Unavailable [phone] Encounter Details Date Type Department Care [...] st Contact Info) Description 04/07/2024 10:00 AM TEMPORARY ADMINISTRATIVE ASSISTANT Office Visit [facility] - Family Medicine [address] [facility] [address] [place] [address] Evelin Blanco, JOSETTE-DENIS [address] [facility] [address] [place] [address] 06/06/2024 2:00 PM CDT Office Visit [facility] Family Medicine [address] [facility] [address] [place] [address] [place] [address] [place] [address] [place] [address] documented as of this encounter Goals Goal Patient Goal Type Associated Problems Recent Progress Patient-Stated? Author Blood Pressure < 140/90 Blood Pressure 96/68(2023 2:34 PM TEMPORARY ADMINISTRATIVE ASSISTANT) Rere Vargas Note: Caring for Your [...] Related Tools, and click ? HBP Trackers.? 2-472-CZQ-USA-1 or ( ) National Heart, Lung and Blood [place]: http://www.nhlbi.nih.gov/health/infoctr/index.htm Blood Pressure < 140/90 Blood Pressure 96/68(2023 2:34 PM TEMPORARY ADMINISTRATIVE ASSISTANT) Rere Vargas Note: Caring for Your [...] Related Tools, and click ? HBP Trackers.? 9-189-UOT-USA-1 or ( ) National Heart, Lung and Blood [place]: http://www.nhlbi.nih.gov/health/infoctr/index.htm Blood Pressure < 140/90 Blood Pressure 96/68(2023 2:34 PM TEMPORARY ADMINISTRATIVE ASSISTANT) No Cassie Marie Note: Caring for Your [...] Related Tools, and click ? HBP Trackers.? 2-277-JBS-USA-1 or ( ) National Heart, Lung and Blood [place]: http://www.nhlbi.nih.gov/health/infoctr/index.htm Exercise 5X per week (30 min per time) Exercise No Rere Kaufman Note: The [place] College of Sports [...] ? ? [place] Diabetes Association: www.diabetes.org 7-142-BLIGGHJB ( ) ? ? [place] Diabetes Association-Support group line: www.professional.diabetes.org ? ? [place] Heart Association: www.heart.org or 9-101-BQD-USA-1 ( ) [employer] MyPlate: www.Outside.inmyplate.gov Have labs drawn Lifestyle Rere Vargas Note: [...] on filedocumented in this encounter Care Teams Tailer Off Relationship Specialty Start Date End Date Rosana Solo MD [address] [facility] [address] [place] [address] PCP - Attributed-[facility] 02/19/19 [place] [address] [facility] [address] [place] [phone] Ophthalmology 04/06/16 documented as of this encounter
--- OUTSIDE RECORDS SUMMARY | 2024-04-03 02:27 | XMS_ITS | Encounter Summary ---
Author Organization [facility] Address [address] [place] [address] Care Team Providers Care Endless Track Vehicle Supervisor Name Role Phone Ricco Andrew MD Unavailable Encounter Details Date Type Department Care Team (Late st Contact Info) Description 05/12/2018 Orders Only [facility] [address] [place] [address] Unknown, Provider Social History Tobacco Use Types [...] (Late Contact Info) Description 04/07/2024 10:00 AM ASSOCIATE BRAND MANAGER Office Visit [facility] [address] [facility] [address] [place] [address] Evelin Blanco APRN-DENIS [address] [facility] [address] [place] [address] 06/06/2024 2:00 PM CDT Office Visit [facility] [address] [facility] [address] [place] [address] [place] [address] [place] [phone] documented as of this encounter Goals Goal Patient Goal Type Associated Problems Recent Progress Patient-Stated? Author Blood Pressure < 140/90 Blood Pressure 96/68(2023 2:34 PM ASSOCIATE BRAND MANAGER) Rere Vargas Note: Caring for Your [...] Related Tools, and click ? HBP Trackers.? 9-362-YCT-USA-1 or ( ) National Heart, Lung and Blood [place]: http://www.nhlbi.nih.gov/health/infoctr/index.htm Blood Pressure < 140/90 Blood Pressure 96/68(2023 2:34 PM ASSOCIATE BRAND MANAGER) Rere Vargas Note: Caring for Your [...] Related Tools, and click ? HBP Trackers.? 7-196-QRQ-USA-1 or ( ) National Heart, Lung and Blood [place]: http://www.nhlbi.nih.gov/health/infoctr/index.htm Exercise 5X per week (30 min per time) Exercise Rere Vargas Note: The [place] College of Sports Medicine [...] diabetes: ? ? [place] Diabetes Association: www.diabetes.org 4-061-FMTIBYGM ( ) ? ? [place] Diabetes Association-Support group line: www.professional.diabetes.org ? ? [place] Heart Association: www.heart.org or 7-387-ISK-USA-1 ( ) [employer] MyPlate: www.Undeskmyplate.gov Have labs drawn Lifestyle No Rere Kaufman [...] on filedocumented in this encounter Care Teams Endless Track Vehicle Supervisor Relationship Specialty [place] [address] [phone] Ophthalmology 04/06/16 documented as of this encounter
--- OUTSIDE RECORDS SUMMARY | 2024-04-03 02:27 | XMS_ITS | Encounter Summary ---
Author Organization [facility] Address [address] [facility] [place] [address] Care Team Providers Care Senior Net C Developer Name Role Phone Ricco Andrew MD Unavailable [phone] Rosana Solo MD Unavailable [phone] Reason for Visit * Reason Comments Refill Request Encounter Details Date Type Department Care Team (Late st Contact Info) Description 11/16/2019 Refill [facility] - Family Medicine [address] [place], [place] [id number] Rosana Solo MD [address] [place] [address] Refill Request Social History Tobacco Use [...] st Contact Info) Description 04/07/2024 10:00 AM KNOCKOUT MACHINE OPERATOR Office Visit [facility] [address] [place] [address] [address] [place] [address] Evelin Blanco APRN-CNP [address] [address] 06/06/2024 2:00 PM CDT Office Visit [facility] [address] [place] [address] [address] [place] [address] [place] [address] [address] documented as of this encounter Goals Goal Patient Goal Type Associated Problems Recent Progress Patient-Stated? Author Blood Pressure < 140/90 Blood Pressure 96/68(2023 2:34 PM KNOCKOUT MACHINE OPERATOR) Rere Vargas Note: Caring for [...] Related Tools, and click ? HBP Trackers.? 6-708-DJJ-USA-1 or ( ) National Heart, Lung and Blood [place]: http://www.nhlbi.nih.gov/health/infoctr/index.htm Blood Pressure < 140/90 Blood Pressure 96/68(2023 2:34 PM KNOCKOUT MACHINE OPERATOR) Rere Vargas Note: Caring for [...] Related Tools, and click ? HBP Trackers.? 7-253-SZB-USA-1 or ( ) National Heart, Lung and Blood [place]: http://www.nhlbi.nih.gov/health/infoctr/index.htm Blood Pressure < 140/90 Blood Pressure 96/68(2023 2:34 PM KNOCKOUT MACHINE OPERATOR) Cassie Parks Note: Caring for [...] Related Tools, and click ? HBP Trackers.? 0-966-ALR-USA-1 or ( ) National Heart, Lung and Blood [place]: http://www.nhlbi.nih.gov/health/infoctr/index.htm Exercise 5X per week (30 min per time) Exercise No Rere Kaufman Note: The [place] College of Sports Medicine [...] diabetes: ? ? [place] Diabetes Association: www.diabetes.org 0-568-NSGLWYPV ( ) ? ? [place] Diabetes Association-Support group line: www.professional.diabetes.org ? ? [place] Heart Association: www.heart.org or 3-803-EJB-USA-1 ( ) [employer] MyPlate: www.Moni Technologiesmyplate.gov Have labs drawn Lifestyle No Rere [...] in this encounter Care Teams Senior Net C Developer Relationship Specialty Start Date End Date Rosana Solo MD [address] [place] [phone] PCP - Attributed-[facility] 02/19/19 [place] [address] [place] [address] Ophthalmology 04/06/16 documented as of this encounter
--- OUTSIDE RECORDS SUMMARY | 2024-04-03 02:27 | XMS_ITS | Encounter Summary ---
Author Organization [facility] Address [address] [facility] [place] [address] Care Team Providers Care Wooden Boat Builder Name Role Phone Ricco Andrew MD Unavailable [phone] Rosana Solo MD Unavailable [phone] Encounter Details Date Type Department Care Team (Late st Contact Info) Description 06/12/2020 Orders Only [facility] - COVID Vax [address] [place] [address] Toño Ramos MD [address] [address] Need for vaccination Social History [...] (Late Contact Info) Description 04/07/2024 10:00 AM DANCE CRITIC Office Visit [facility] - Family Medicine [address] [facility] [address] [place] [address] Evelin Blanco, HOTEL ASSISTANT GENERAL MANAGER-CHANGE MANAGEMENT LEAD [address] [facility] [address] [place] [address] 06/06/2024 2:00 PM CDT Office Visit [facility] Family Medicine [address] [facility] [address] [place], [place] [address] [place] [address] [facility] [address] [place] [address] documented as of this encounter Goals Goal Patient Goal Type Associated Problems Recent Progress Patient-Stated? Author Blood Pressure < 140/90 Blood Pressure 96/68(2023 2:34 PM DANCE CRITIC) Rere Vargas Note: Caring for Your High [...] Related Tools, and click ? HBP Trackers.? 2-911-WHC-USA- or ( ) National Heart, Lung and Blood [place]: http://www.nhlbi.nih.gov/health/infoctr/index.htm Blood Pressure < 140/90 Blood Pressure 96/68(2023 2:34 PM DANCE CRITIC) Rere Vargas Note: Caring for Your High [...] Related Tools, and click ? HBP Trackers.? 1-701-KSC-USA- or ( ) National Heart, Lung and Blood [place]: http://www.nhlbi.nih.gov/health/infoctr/index.htm Blood Pressure < 140/90 Blood Pressure 96/68(2023 2:34 PM DANCE CRITIC) Cassie Parks Note: Caring for Your High [...] Related Tools, and click ? HBP Trackers.? 9-544-FCM-USA-1 or ( ) National Heart, Lung and Blood [place]: http://www.nhlbi.nih.gov/health/infoctr/index.htm Exercise 5X per week (30 min [...] diabetes: ? ? [place]aur[place] Diabetes Association: www.diabetes.org 7-622-YQGKCAVR ( ) ? ? [place]aur[place] Diabetes Association-Support group line: www.professional.diabetes.org ? ? [place] Heart Association: www.heart.org or 0-405-EAD-USA-1 ( ) [employer] MyPlate: www.Wheelrightmyplate.gov Have labs drawn Lifestyle Rere Vargas Note: [...] disease documented in this encounter Care Teams Wooden Boat Builder Relationship Specialty Start Date End Date Rosana Solo MD [address] [facility] [address] [place] [phone] PCP - Attributed-[facility] 02/19/19 [place] [address] [facility] [address] [place] [address] Ophthalmology 04/06/16 documented as of this encounter
--- OUTSIDE RECORDS SUMMARY | 2024-04-03 02:27 | XMS_ITS | Encounter Summary ---
Author Organization [facility] Address [address] [facility] [place] [address] Care Team Providers Care Purchasing Manager Name Role Phone Ricco Andrew MD Unavailable [phone] Reason for Visit * Reason Onset Date Comments MEDICATION REFILL 05/03/2018 Encounter Details Date Type Department Care Team (Late st Contact Info) Description 05/03/2018 Refill [facility] Medical [facility] - Family Medicine [address] [place], [place] [phone] Rosana Solo MD [facility] [address] [address] MEDICATION REFILL Social History Tobacco [...] we had sent rx to the pharmacy. AGENT * Telephone Encounter - Liyah Carbajal - 05/03/2018 4:04 PM CST Pt daughter called the office today needing a refill for one touch mini test strips. AGENT documented in this encounter Plan of Treatment Upcoming Encounters Date Type Department Care Team (Late st Contact Info) Description 04/07/2024 10:00 AM BOOK AGENT Office Visit [facility] [phone] [place] [address] [address] [place] [address] Evelin Blanco, CIRCULAR STUFFER-BUNCHER HAND [address] [facility] [address] [place] [address] 06/06/2024 2:00 PM CDT Office Visit [facility] [address] [place] [address] [address] [place] [address] Chris [place] [address] [place] [address] [address] [place] [address] documented as of this encounter Goals Goal Patient Goal Type Associated Problems Recent Progress Patient-Stated? Author Blood Pressure < 140/90 Blood Pressure 96/68(2023 2:34 PM BOOK AGENT) Rere Vargas Note: Caring for Your [...] Related Tools, and click ? HBP Trackers.? 2-833-ZEZ-USA-1 or ( ) National Heart, Lung and Blood [place]: http://www.nhlbi.nih.gov/health/infoctr/index.htm Blood Pressure < 140/90 Blood Pressure 96/68(2023 2:34 PM BOOK AGENT) Rere Vargas Note: Caring for Your [...] Related Tools, and click ? HBP Trackers.? 7-251-NLW-USA-1 or ( ) National Heart, Lung and Blood [place]: http://www.nhlbi.nih.gov/health/infoctr/index.htm Exercise 5X per week (30 min [...] diabetes: ? ? [place] Diabetes Association: www.diabetes.org 9-396-SAUAILSC ( ) ? ? [place] Diabetes Association-Support group line: www.professional.diabetes.org ? ? [place] Heart Association: www.heart.org or 9-976-CLJ-USA-1 ( ) [employer] MyPlate: www.Usetracemyplate.gov Have labs drawn Lifestyle Rere Vargas Note: [...] kidney disease, unspecified whether fdc insulin use (HCC)- Primary Type 2 diabetes mellitus with diabetic neuropathy, unspecified whether fdc insulin use (HCC) documented in this encounter Care Teams Purchasing Manager Relationship Specialty [place] [address] [phone] Ophthalmology 04/06/16 documented as of this encounter
--- OUTSIDE RECORDS SUMMARY | 2024-04-03 02:27 | XMS_ITS | Encounter Summary ---
Author Organization [facility] Address [address] [facility] [place] [address] Care Team Providers Care Molding Sander Name Role Phone Ricco Andrew MD Unavailable [phone] Reason for Visit * Reason Comments Refill Request Encounter Details Date Type Department Care Team (Late st Contact Info) Description 10/11/2018 Refill [facility] - Family Medicine [address] [place] [address] Rosana Solo MD [address] [address] Refill Request Social History Tobacco [...] st Contact Info) Description 04/07/2024 10:00 AM SEO STRATEGIST Office Visit [facility] [address] [facility] [address] [place] [address] Evelin Blanco APRN-PLANT SPRAYER [address] [facility] [address] [place] [address] 06/06/2024 2:00 PM CDT Office Visit [facility] [address] [place] [address] [address] [place] [address] [place] [address] [facility] [address] [place] [phone] documented as of this encounter Goals Goal Patient Goal Type Associated Problems Recent Progress Patient-Stated? Author Blood Pressure < 140/90 Blood Pressure 96/68(2023 2:34 PM SEO STRATEGIST) Rere Vargas Note: Caring for Your High [...] Related Tools, and click ? HBP Trackers.? 8-480-ECY-USA-1 or ( ) National Heart, Lung and Blood [place]: http://www.nhlbi.nih.gov/health/infoctr/index.htm Blood Pressure < 140/90 Blood Pressure 96/68(2023 2:34 PM SEO STRATEGIST) Rere Vargas Note: Caring for Your High [...] Related Tools, and click ? HBP Trackers.? 0-401-JZC-USA-1 or ( ) National Heart, Lung and Blood [place]: http://www.nhlbi.nih.gov/health/infoctr/index.htm Exercise 5X per week (30 min per time) Exercise No Rere Kaufman Note: The [place] College of Sports Medicine [...] diabetes: ? ? [place] Diabetes Association: www.diabetes.org 9-369-VQLAFNUT ( ) ? ? [place] Diabetes Association-Support group line: www.professional.diabetes.org ? ? [place] Heart Association: www.heart.org or 1-116-HAV-USA-1 ( ) [employer] MyPlate: www.Fundrisemyplate.gov Have labs drawn Lifestyle Rere Vargas Note: [...] on filedocumented in this encounter Care Teams Molding Sander Relationship Specialty [place] [address] [address] Ophthalmology 04/06/16 documented as of this encounter
--- OUTSIDE RECORDS SUMMARY | 2024-04-03 02:27 | XMS_ITS | Encounter Summary ---
Author Organization [facility] Address [address] [facility] [place] [address] Care Team Providers Care Director For Beauty School Name Role Phone Ricco Andrew MD Unavailable [phone] Reason for Visit * Reason Comments Refill Request Encounter Details Date Type Department Care Team (Late st Contact Info) Description 08/10/2018 Refill [facility] - Family Medicine [address] [place], [place] [phone] Rosana Solo MD [address] [address] Refill Request Social History Tobacco [...] st Contact Info) Description 04/07/2024 10:00 AM VETERINARIAN ASSISTANT Office Visit [facility] [address] [place] [address] [address] [place], [place] [phone] Evelin Blanco APRN-CNP [address] [facility] [address] [place] [address] 06/06/2024 2:00 PM CDT Office Visit [facility] [phone] [place] [address] [address] [place], [place] [phone] [place] [address] [address] documented as of this encounter Goals Goal Patient Goal Type Associated Problems Recent Progress Patient-Stated? Author Blood Pressure < 140/90 Blood Pressure 96/68(2023 2:34 PM VETERINARIAN ASSISTANT) Rere Vargas Note: Caring for Your [...] Where can I go for more information? [place] Heart Association National Center: http://www.americanheart.org 1. In the top header, click ? Conditions? . 2. In the top header, click ? high blood pressure.? 3. For a printable blood pressure tracker, scroll toward the bottom of the page to Related Tools, and click ? HBP Trackers.? 8-485-RNK-USA-1 or ( ) National Heart, Lung and Blood [place]: http://www.nhlbi.nih.gov/health/infoctr/index.htm Blood Pressure < 140/90 Blood Pressure 96/68(2023 2:34 PM VETERINARIAN ASSISTANT) Rere Vargas Note: Caring for Your [...] Where can I go for more information? [place] Heart Association National Center: http://www.americanheart.org 1. In the top header, click ? Conditions? . 2. In the top header, click ? high blood pressure.? 3. For a printable blood pressure tracker, scroll toward the bottom of the page to Related Tools, and click ? HBP Trackers.? 8-674-DFC-USA-1 or ( ) National Heart, Lung and Blood [place]: http://www.nhlbi.nih.gov/health/infoctr/index.htm Exercise 5X per week (30 min per time) Exercise Rere Vargas Note: The [place] College of Sports Medicine recommends all adults [...] how to manage your diabetes: ? ? [place] Diabetes Association: www.diabetes.org 0-342-RDVXOUNE ( ) ? ? [place] Diabetes Association-Support group line: www.professional.diabetes.org ? ? [place] Heart Association: www.heart.org or 0-053-ZUK-USA-1 ( ) [employer] MyPlate: www.choosemyplate.gov Have labs drawn Lifestyle Rere [...] filedocumented in this encounter Care Teams Director For Beauty School Relationship Specialty [place] [address] [address] Ophthalmology 04/06/16 documented as of this encounter
--- OUTSIDE RECORDS SUMMARY | 2024-04-03 02:27 | XMS_ITS | Encounter Summary ---
Author Organization [facility] Address [address] [facility] [place] [address] Care Team Providers Care Manager Ct Name Role Phone Ricco Andrew MD Unavailable [phone] Rosana Solo MD Unavailable [phone] Reason for Visit * Reason Onset Date Comments Question 10/31/2020 Encounter Details Date Type Department Care Team (Late st Contact Info) Description 10/31/2020 Telephone [facility] - Family Medicine [address] [place] [address] Rosana Solo MD [facility] [address] [address] Question Social History Tobacco Use [...] arise/persist, schedule acute visit with me or PROVIDER RELATIONS COORDINATOR tomorrow If pt is not eating, then [...] st Contact Info) Description 04/07/2024 10:00 AM CONCRETE HANDLER Office Visit [address] [place] [address] Evelin Blanco, PAGE DESIGNER-TEACHER ASST [address] [address] 06/06/2024 2:00 PM CDT Office Visit [address] [place] [address] [place] [address] [place] [address] documented as of this encounter Goals Goal Patient Goal Type Associated Problems Recent Progress Patient-Stated? Author Blood Pressure < 140/90 Blood Pressure 96/68(2023 2:34 PM CONCRETE HANDLER) Rere Vargas Note: Caring for Your [...] Where can I go for more information? [place] Heart Association National Center: http://www.americanheart.org 1. In the top header, click ? Conditions? . 2. In the top header, click ? high blood pressure.? 3. For a printable blood pressure tracker, scroll toward the bottom of the page to Related Tools, and click ? HBP Trackers.? 7-423-CMK-USA-1 or ( ) National Heart, Lung and Blood [place]: http://www.nhlbi.nih.gov/health/infoctr/index.htm Blood Pressure < 140/90 Blood Pressure 96/68(2023 2:34 PM CONCRETE HANDLER) Rere Vargas Note: Caring for Your [...] Where can I go for more information? [place] Heart Association National Center: http://www.americanheart.org 1. In the top header, click ? Conditions? . 2. In the top header, click ? high blood pressure.? 3. For a printable blood pressure tracker, scroll toward the bottom of the page to Related Tools, and click ? HBP Trackers.? 6-363-HUB-USA-1 or ( ) National Heart, Lung and Blood [place]: http://www.nhlbi.nih.gov/health/infoctr/index.htm Blood Pressure < 140/90 Blood Pressure 96/68(2023 2:34 PM CONCRETE HANDLER) Cassie Parks Note: Caring for Your [...] Where can I go for more information? [place] Heart Association National Center: http://www.americanheart.org 1. In the top header, click ? Conditions? . 2. In the top header, click ? high blood pressure.? 3. For a printable blood pressure tracker, scroll toward the bottom of the page to Related Tools, and click ? HBP Trackers.? 0-731-UZO-USA-1 or ( ) National Heart, Lung and Blood [place]: http://www.nhlbi.nih.gov/health/infoctr/index.htm Exercise 5X per week (30 min per time) Exercise No Rere Kaufman Note: The [place] College of Sports Medicine recommends all adults [...] how to manage your diabetes: ? ? [place] Diabetes Association: www.diabetes.org 4-505-XUFZYKHQ ( ) ? ? [place] Diabetes Association-Support group line: www.professional.diabetes.org ? ? [place] Heart Association: www.heart.org or 7-788-GIS-USA-1 ( ) [employer] MyPlate: www.nVoqmyplate.gov Have labs drawn Lifestyle Rere Vargas Note: [...] on filedocumented in this encounter Care Teams Manager Ct Relationship Specialty Start Date End Date Rosana Solo MD [address] [place] [address] PCP - Attributed-[facility] 02/19/19 [place] [address] [facility] [address] [place] [address] Ophthalmology 04/06/16 documented as of this encounter
--- OUTSIDE RECORDS SUMMARY | 2024-04-03 02:27 | XMS_ITS | Encounter Summary ---
Author Organization [facility] Address [address] [facility] [place] [address] Care Team Providers Care Playground Official Name Role Phone Ricco Andrew MD Unavailable [phone] Rosana Solo MD Unavailable [phone] Reason for Visit * Reason Comments ER UC Follow-up Encounter Details Date Type Department Care Team (Late st Contact Info) Description 10/13/2019 11:15 AM CDT Office Visit [facility] - Family Medicine [address] [place], [place] [id number] Rosana Solo MD [address] [facility] [address] [place] [address] Fall, subsequent encounter (Primary Dx); [...] especially on standing Patient Education Stitches Removal TANNING WHEEL OPERATOR: What you need to know about stitches removal: Stitches are usually removed within 10-14 days, depending on the location of the wound. Your healthcare provider will tell you when to return to have your stitches removed. Your provider will use sterile forceps or tweezers to pick up truck driver the knot of each st itch. He [...] ask them during your visits. ?? Copyright Musistic 2019 Information is for End User's use only and may not be sold, redistributed or otherwise used for commercial purposes. All illustrations and images included in CareNotes?? are the copyrighted property of A.D.A.M., Inc. or [employer] (STIE) The above information is an lunchroom aide only. It is not intended as [...] ER other than foto laceration [facility] to [facility] in [place]. Sutures placed. They gave him a tetanus [...] sutures removed. wound care disucssed - Plan: IA REMOVAL OF SUTURES Visit for suture removal - Plan: IA REMOVAL OF SUTURES Hypotension, unspecified hypotension type [...] st Contact Info) Description 04/07/2024 10:00 AM CARDING MACHINE FEEDER Office Visit [facility] [address] [facility] [address] [place], [place] [address] Evelin Blanco APRN-DENIS [address] [address] 06/06/2024 2:00 PM CDT Office Visit [facility] [address] [place] [address] [place] [address] [phone] documented as of this encounter Goals Goal Patient Goal Type Associated Problems Recent Progress Patient-Stated? Author Blood Pressure < 140/90 Blood Pressure 96/68(2023 2:34 PM CARDING MACHINE FEEDER) Rere Vargas Note: Caring for Your High [...] Related Tools, and click ? HBP Trackers.? 3-223-TRE-USA-1 or ( ) National Heart, Lung and Blood [place]: http://www.nhlbi.nih.gov/health/infoctr/index.htm Blood Pressure < 140/90 Blood Pressure 96/68(2023 2:34 PM CARDING MACHINE FEEDER) Rere Vargas Note: Caring for Your High [...] Related Tools, and click ? HBP Trackers.? 9-270-ZWF-USA-1 or ( ) National Heart, Lung and Blood [place]: http://www.nhlbi.nih.gov/health/infoctr/index.htm Blood Pressure < 140/90 Blood Pressure 96/68(2023 2:34 PM CARDING MACHINE FEEDER) Cassie Parks Note: Caring for Your High [...] Related Tools, and click ? HBP Trackers.? 7-872-GXO-USA-1 or ( ) National Heart, Lung and Blood [place]: http://www.nhlbi.nih.gov/health/infoctr/index.htm Exercise 5X per week (30 min per time) Exercise Rere Vargas Note: The [place] College of Sports Medicine [...] diabetes: ? ? [place] Diabetes Association: www.diabetes.org 8-357-QVVPWSEP ( ) ? ? [place] Diabetes Association-Support group line: www.professional.diabetes.org ? ? [place] Heart Association: www.heart.org or 1-832-EWC-[facility]-1 ( ) my4oneone MyPlate: www.Dotour.commyplate.gov Have labs drawn Lifestyle Rere Vargas Note: [...] (HCC) documented in this encounter Care Teams Playground Official Relationship Specialty Start Date End Date Rosana Solo MD [address] [place] [address] PCP - Attributed-[facility] 02/19/19 [place] [address] [facility] [address] [place] [address] Ophthalmology 04/06/16 documented as of this encounter
--- OUTSIDE RECORDS SUMMARY | 2024-04-03 02:27 | XMS_ITS | Encounter Summary ---
Author Organization [facility] Address [address] [facility] [place] [address] Care Team Providers Care Paste Up Copy Camera Operator Name Role Phone Ricco Andrew MD Unavailable Rosana Solo MD Unavailable [phone] Encounter Details Date Type Department Care [...] COVID-19? No / Unsure 02/01/2020 10:49 AM PURCHASING AND CLAIMS SUPERVISOR documented as of this encounter Plan of Treatment Upcoming Encounters Date Type Department Care Team (Late st Contact Info) Description 04/07/2024 10:00 AM PURCHASING AND CLAIMS SUPERVISOR Office Visit [facility] - Family Medicine [address] [facility] [address] [place], [place] [phone] Evelin Blanco, INVESTIGATOR WELFARE-DIRECTOR OF STUDENT FINANCIAL SERVICES [address] [facility] [address] [place] [address] 06/06/2024 2:00 PM CDT Office Visit [facility] Family Medicine [address] [facility] [address] [place] [address] [place] [address] [facility] [address] [place] [phone] documented as of this encounter Goals Goal Patient Goal Type Associated Problems Recent Progress Patient-Stated? Author Blood Pressure < 140/90 Blood Pressure 96/68(2023 2:34 PM PURCHASING AND CLAIMS SUPERVISOR) Rere Vargas Note: Caring for Your [...] Related Tools, and click ? HBP Trackers.? 0-303-PSG-USA- or ( ) National Heart, Lung and Blood [place]: http://www.nhlbi.nih.gov/health/infoctr/index.htm Blood Pressure < 140/90 Blood Pressure 96/68(2023 2:34 PM PURCHASING AND CLAIMS SUPERVISOR) No Rere Kaufman Note: Caring for Your [...] Related Tools, and click ? HBP Trackers.? 9-888-COP-USA-1 or ( ) National Heart, Lung and Blood [place]: http://www.nhlbi.nih.gov/health/infoctr/index.htm Blood Pressure < 140/90 Blood Pressure 96/68(2023 2:34 PM PURCHASING AND CLAIMS SUPERVISOR) No Cassie Marie Note: Caring for [...] Related Tools, and click ? HBP Trackers.? 7-354-TBX-USA-1 or ( ) National Heart, Lung and Blood [place]: http://www.nhlbi.nih.gov/health/infoctr/index.htm Exercise 5X per week (30 min [...] diabetes: ? ? [place] Diabetes Association: www.diabetes.org 9-357-LTCYDWCO ( ) ? ? [place] Diabetes Association-Support group line: www.professional.diabetes.org ? ? [place] Heart Association: www.heart.org or 0-488-PVQ-USA-1 ( ) [employer] MyPlate: www.eÇiftmyplate.gov Have labs drawn Lifestyle Rere Vargas Note: [...] on filedocumented in this encounter Care Teams Paste Up Copy Camera Operator Relationship Specialty Start Date End Date Rosana Solo MD [address] [facility] [address] [place] [address] PCP - Attributed-[facility] 02/19/19 [place] [address] [facility] [address] [place] [phone] Ophthalmology 04/06/16 documented as of this encounter
--- OUTSIDE RECORDS SUMMARY | 2024-04-03 02:27 | XMS_ITS | Encounter Summary ---
Author Organization [facility] Address [address] [facility] [place] [address] Care Team Providers Care Rn Patient Services Name Role Phone Ricco Andrew MD Unavailable Rosana Solo MD Unavailable [phone] Encounter Details Date Type Department Care [...] st Contact Info) Description 04/07/2024 10:00 AM NEWSPAPER PRESS OPERATOR APPRENTICE Office Visit [facility] - Family Medicine [address] [facility] [address] [place] [address] Evelin Blanco, JOSETTE-DENIS [address] [facility] [address] [place] [address] 06/06/2024 2:00 PM CDT Office Visit [facility] Family Medicine [address] [facility] [address] [place] [address] [place] [address] [facility] [address] [place] [address] [place] [phone] documented as of this encounter Goals Goal Patient Goal Type Associated Problems Recent Progress Patient-Stated? Author Blood Pressure < 140/90 Blood Pressure 96/68(2023 2:34 PM NEWSPAPER PRESS OPERATOR APPRENTICE) Rere Vargas Note: Caring for Your [...] Related Tools, and click ? HBP Trackers.? 6-388-FQX-USA-1 or ( ) National Heart, Lung and Blood [place]: http://www.nhlbi.nih.gov/health/infoctr/index.htm Blood Pressure < 140/90 Blood Pressure 96/68(2023 2:34 PM NEWSPAPER PRESS OPERATOR APPRENTICE) Rere Vargas Note: Caring for Your [...] Related Tools, and click ? HBP Trackers.? 2-421-LLV-USA-1 or ( ) National Heart, Lung and Blood [place]: http://www.nhlbi.nih.gov/health/infoctr/index.htm Blood Pressure < 140/90 Blood Pressure 96/68(2023 2:34 PM NEWSPAPER PRESS OPERATOR APPRENTICE) No Cassie Marie Note: Caring for [...] Related Tools, and click ? HBP Trackers.? 0-485-YGM-USA-1 or ( ) National Heart, Lung and Blood [place]: http://www.nhlbi.nih.gov/health/infoctr/index.htm Exercise 5X per week (30 min [...] diabetes: ? ? [place] Diabetes Association: www.diabetes.org 1-150-VYDWSSYH ( ) ? ? [place] Diabetes Association-Support group line: www.professional.diabetes.org ? ? [place] Heart Association: www.heart.org or 9-347-YUN-USA-1 ( ) [employer] MyPlate: www.Renovation Authorities of Indianapolismyplate.gov Have labs drawn Lifestyle Rere Vargas Note: [...] filedocumented in this encounter Care Teams Rn Patient Services Relationship Specialty Start Date End Date Rosana Solo MD [address] [facility] [address] [place] [address] PCP - Attributed-[facility] 02/19/[address] [place] [address] [facility] [address] [place] [address] Ophthalmology 04/06/16 documented as of this encounter
--- OUTSIDE RECORDS SUMMARY | 2024-04-03 02:27 | XMS_ITS | Encounter Summary ---
Author Organization [facility] Address [address] [facility] [place] [address] Care Team Providers Care Mud Plant Operator Name Role Phone Ricco Andrew MD Unavailable [phone] Rosana Solo MD Unavailable [phone] Reason for Visit * Reason Comments Diabetes Encounter Details Date Type Department Care Team (Late st Contact Info) Description 02/28/2019 2:00 PM DIRECTOR OF EARLY CHILDHOOD EDUCATION Office Visit [facility] - Family Medicine [address] [place], [place] [phone] Rosana Solo MD [facility] [facility] [address] [place] [address] Type 2 diabetes mellitus with stage 3 chronic kidney disease, unspecified whether mcfp insulin use (Primary Dx); Type 2 diabetes mellitus with diabetic neuropathy, unspecified whether intermediate manager insulin use (HCC); Alzheimer's dementia without behavioral [...] Comments Blood Pressure 110/60 02/28/2019 2:59 PM DIRECTOR OF EARLY CHILDHOOD EDUCATION Pulse 88 02/28/2019 2:59 PM DIRECTOR OF EARLY CHILDHOOD EDUCATION Temperature 36.8 ??C (98.3 ??F) 02/28/2019 2:59 PM CS T Respiratory Rate 18 02/28/2019 2:59 PM DIRECTOR OF EARLY CHILDHOOD EDUCATION Oxygen Saturation - - Inhaled Oxygen Concentration - - Weight 80.7 kg (178 lb) 02/28/2019 2:59 PM DIRECTOR OF EARLY CHILDHOOD EDUCATION Height - - Body Mass Index 29.62 08/29/2018 1:37 PM CDT documented in this encounter Patient Instructions * Patient Instructions* Rosana Solo MD - 02/28/2019 3:54 PM DIRECTOR OF EARLY CHILDHOOD EDUCATION Continue current medications hgb a1c at lab [...] get more information? ?? Alzheimer's Association [address] [place] [address] [place] [address] Phone: Web Address: http://www.alz.org ?? [facility] [address] Caio Scanlon MD [address] Caio Scanlon MD Phone: [phone] Web Address: [email or web address]://www.alzheimers.[email or web address] When should I contact [...] refuse treatment. The above information is an mental health aide only. It is not intended as medical advice for individual conditions or treatments. Talk to your doctor, nurse or pharmacist before following any medical regimen to see if it is safe and effective for you. ?? Copyright Zimplistic 2019 Information is for End User's use only and may not be sold, redistributed or otherwise used for commercial purposes. All illustrations and images included in CareNotes?? are the copyrighted property of [employer]. or GoGoPin CTOR OF EARLY CHILDHOOD EDUCATION documented in this encounter Progress Notes * [...] - on Namenda. Primarily short-term impairment. . tank terminal gauger memory remains intact. Likes to sleep a [...] stage 3 chronic kidney disease, unspecified whether mcfp insulinuse - can tolerate looser DM cotnrol given Dementia & Age. hgb A1c goal <8, better if <7.5. Adjust rx if needed - Plan: HEMOGLOBIN A1C W EAG Type 2 diabetes mellitus with diabetic neuropathy, unspecified whether mcfp insulin use - Plan: HEMOGLOBIN A1C W [...] given to the patient. Rosana Solo MD CTOR OF EARLY CHILDHOOD EDUCATION * Cassie Marie - 02/28/2019 2:56 PM CST Patient is here today for a diabetes follow up Blood pressure 110/60, pulse 88, temperature 98.3 ??F (36.8 ??C), temperature source Oral, resp. rate 18, weight 80.7 kg (178 lb). . CTOR OF EARLY CHILDHOOD EDUCATION documented in this encounter Plan of Treatment Upcoming Encounters Date Type Department Care Team (Late st Contact Info) Description 04/07/2024 10:00 AM DIRECTOR OF EARLY CHILDHOOD EDUCATION Office Visit [facility] Family Medicine [address] [facility] [address] [place] [address] Evelin Blanco, PHYSICIAN UNDERWRITER-FASHION CONSULTANT [address] [facility] [address] [place] [address] 06/06/2024 2:00 PM CDT Office Visit [facility] Family Medicine [address] [facility] [address] [place], [place] [phone] [place] [address] [facility] [address] [place] [address] documented as of this encounter Goals Goal Patient Goal Type Associated Problems Recent Progress Patient-Stated? Author Blood Pressure < 140/90 Blood Pressure 96/68(2023 2:34 PM DIRECTOR OF EARLY CHILDHOOD EDUCATION) Rere Vargas Note: Caring for Your High [...] Where can I go for more information? [place] Heart Association National Center: http://www.americanheart.org 1. In the top header, click ? Conditions? . 2. In the top header, click ? high blood pressure.? 3. For a printable blood pressure tracker, scroll toward the bottom of the page to Related Tools, and click ? HBP Trackers.? 1-128-NBXUSA- or ( ) National Heart, Lung and Blood [place]: http://www.nhlbi.nih.gov/health/infoctr/index.htm Blood Pressure < 140/90 Blood Pressure 96/68(2023 2:34 PM DIRECTOR OF EARLY CHILDHOOD EDUCATION) Rere Vargas Note: Caring for Your High [...] Where can I go for more information? [place] Heart Association National Center: http://www.americanheart.org 1. In the top header, click ? Conditions? . 2. In the top header, click ? high blood pressure.? 3. For a printable blood pressure tracker, scroll toward the bottom of the page to Related Tools, and click ? HBP Trackers.? 7-789-WSS-USA- or ( ) National Heart, Lung and Blood [place]: http://www.nhlbi.nih.gov/health/infoctr/index.htm Blood Pressure < 140/90 Blood Pressure 96/68(2023 2:34 PM DIRECTOR OF EARLY CHILDHOOD EDUCATION) Cassie Parks Note: Caring for Your High [...] Where can I go for more information? [place] Heart Association National Center: http://www.americanheart.org 1. In the top header, click ? Conditions? . 2. In the top header, click ? high blood pressure.? 3. For a printable blood pressure tracker, scroll toward the bottom of the page to Related Tools, and click ? HBP Trackers.? 7-944-GDZ-USA-1 or ( ) National Heart, Lung and Blood [place]: http://www.nhlbi.nih.gov/health/infoctr/index.htm Exercise 5X per week (30 min per time) Exercise Rere Vargas Note: The [place] College of Sports Medicine recommends all adults [...] how to manage your diabetes: ? ? [place] Diabetes Association: www.diabetes.org 5-903-VFSETDUQ ( ) ? ? [place] Diabetes Association-Support group line: www.professional.diabetes.org ? ? [place] Heart Association: www.heart.org or 3-669-KYN-USA-1 ( ) [employer] MyPlate: www.PharmRight Corpmyplate.gov Have labs drawn Lifestyle Rere Vargas Note: [...] A1C W EAG Routine 02/28/2019 4:22 PM DIRECTOR OF EARLY CHILDHOOD EDUCATION Type 2 diabetes mellitus with diabetic neuropathy, unspecified whether mcfp insulin use (HCC) Type 2 diabetes mellitus with stage 3 chronic kidney disease, unspecified whether mcfp insulin use documented in this encounter Results * (ABNORMAL) HEMOGLOBIN A1C W EAG (02/28/2019 4:22 PM DIRECTOR OF EARLY CHILDHOOD EDUCATION) Hemoglobin A1c 7.2(H) 4.2 - 5.6 % [facility] ACCOUNT BILL Estimated Average Glucose 160 mg/dL [facility] ACCOUNT BILL Comment: The following cutoff levels are recommended by [place] Diab etes Association. A1c ??> 6.5% : [...] BLOOD SPECIMEN / Unknown 02/28/2019 4:22 PM DIRECTOR OF EARLY CHILDHOOD EDUCATION 02/28/2019 Narrative Resulting Agency Comment Lab Testing performed at: [address] ?? Ana LINARES [id number] Rosana Solo MD LAB - CHEMISTRY MELYSSA CHAHAL [facility] ACCOUNT BILL [address] [place] [address] documented in this encounter Visit Diagnoses Diagnosis Type 2 diabetes mellitus with stage 3 chronic kidney disease, unspecified whether intermediate manager insulin use (HCC)- Primary Type 2 diabetes mellitus with diabetic neuropathy, unspecified whether intermediate manager insulin use (HCC) Alzheimer's dementia without behavioral disturbance, unspecified timing of dementia onset ([facility]) Hypothyroidism, adult Other specified acquired hypothyroidism Arthritis of knee Unspecified arthropathy, lower leg Gait instability Abnormality of gait Need for vaccination Need for prophylactic vaccination and inoculation against unspecified single disease documented in this encounter Care Teams Mud Plant Operator Relationship Specialty Start Date End Date Rosana Solo MD [address] [facility] [address] [place] [address] PCP - Attributed-[facility] [place] 02/19/19 [place] [address] [facility] [address] [place] [address] Ophthalmology 04/06/16 documented as of this encounter
--- OUTSIDE RECORDS SUMMARY | 2024-04-03 02:27 | XMS_ITS | Encounter Summary ---
Author Organization [facility] Address [address] [place] [address] Care Team Providers Care Savings Teller Name Role Phone Ricco Andrew MD Unavailable Rosana Solo MD Unavailable [phone] Reason for Visit * Reason Comments Diabetic Foot Care Type 2 diabetes john itus with diabetic neuropathy, without long-term current use of insulin Encounter Details Date Type Department Care Team (Latest Contact Info) Description 09/02/2020 2:20 PM CDT Office Visit [facility] - Podiatry [id number] [place] [address] [address] [facility] [address] [address] Onychodystrophy (Primary Dx); Pain due [...] Education Foot Care for People with Diabetes BODY DIE MAKER: What you need to know about foot [...] with your diabetes care team provider or early childhood education specialist as directed: You will need to have your feet checked at least once a year. You may need a foot exam more often if you have nerve damage, foot deformities, or ulcers. Write down your questions so you remember to ask them during your visits. ?? Copyright Sabakat 2020 Information is for End User's use only and may not be sold, redistributed or otherwise used for commercial purposes. All illustrations and images included in CareNotes?? are the copyrighted property of NutraspaceD.[employer]Electric [employer]ot[employer]. or eblizz The above information is an rehabilitation therapy aide only. It is not intended as [...] insulin Treatment: Orders Placed This Encounter ??? [place] DEBRIDEMENT OF NAILS, 6 OR MORE - [...] st Contact Info) Description 04/07/2024 10:00 AM TOP FLAVOR ATTENDANT Office Visit [facility] [address] [facility] [address] [place] [address] Evelin Blanco APRN-CNP [address] [facility] [address] [place] [address] 06/06/2024 2:00 PM CDT Office Visit [facility] [address] [facility] [address] [place] [address] [place] [address] [facility] [address] [place] [address] documented as of this encounter Goals Goal Patient Goal Type Associated Problems Recent Progress Patient-Stated? Author Blood Pressure < 140/90 Blood Pressure 96/68(2023 2:34 PM TOP FLAVOR ATTENDANT) Rere Vargas Note: Caring for Your High [...] Where can I go for more information? [place] Heart Association National Center: http://www.americanheart.org 1. In the top header, click ? Conditions? . 2. In the top header, click ? high blood pressure.? 3. For a printable blood pressure tracker, scroll toward the bottom of the page to Related Tools, and click ? HBP Trackers.? 9-548-YNH-USA- or ( ) National Heart, Lung and Blood [place]: http://www.nhlbi.nih.gov/health/infoctr/index.htm Blood Pressure < 140/90 Blood Pressure 96/68(2023 2:34 PM TOP FLAVOR ATTENDANT) Rere Vargas Note: Caring for Your High [...] Where can I go for more information? [place] Heart Association National Center: http://www.americanheart.org 1. In the top header, click ? Conditions? . 2. In the top header, click ? high blood pressure.? 3. For a printable blood pressure tracker, scroll toward the bottom of the page to Related Tools, and click ? HBP Trackers.? 6-904-RQW-USA- or ( ) National Heart, Lung and Blood [place]: http://www.nhlbi.nih.gov/health/infoctr/index.htm Blood Pressure < 140/90 Blood Pressure 96/68(2023 2:34 PM TOP FLAVOR ATTENDANT) Cassie Parks Note: Caring for Your High [...] Where can I go for more information? [place] Heart Association National Center: http://www.americanheart.org 1. In the top header, click ? Conditions? . 2. In the top header, click ? high blood pressure.? 3. For a printable blood pressure tracker, scroll toward the bottom of the page to Related Tools, and click ? HBP Trackers.? 8-505-VHK-USA-1 or ( ) National Heart, Lung and Blood [place]: http://www.nhlbi.nih.gov/health/infoctr/index.htm Exercise 5X per week (30 min per time) Exercise Rere Vargas Note: The [place] College of Sports Medicine recommends all adults [...] how to manage your diabetes: ? ? [place] Diabetes Association: www.diabetes.org 2-196-OSNKQFUB ( ) ? ? [place] Diabetes Association-Support group line: www.professional.diabetes.org ? ? [place] Heart Association: www.heart.org or 7-322-RKO-USA-1 ( ) [employer] MyPlate: www.Starbelly.commyplate.gov Have labs drawn Lifestyle Rere Vargas Note: [...] (HCC) documented in this encounter Care Teams Savings Teller Relationship Specialty Start Date End Date Rosana Solo MD [address] [facility] [address] [place] [address] PCP - Attributed-[facility] 02/19/19 [place] [address] [facility] [address] [place] [address] Ophthalmology 04/06/16 documented as of this encounter
--- OUTSIDE RECORDS SUMMARY | 2024-04-03 02:27 | XMS_ITS | Encounter Summary ---
Author Organization [facility] Address [address] [place] [address] Care Team Providers Care Job Trainer Name Role Phone Ricco Andrew MD Unavailable [phone] Rosana Solo MD Unavailable [phone] Encounter Details Date Type Department Care Team (Late Contact Info) Description 04/10/2020 Orders Only [facility] - TECHNICAL SPECIALIST [address] [place] [address], [address] [place] [address] Toño Ramos MD [address] [place] [address] [address] [place] [address] Need for vaccination Social History [...] COVID-19? No / Unsure 03/28/2020 4:14 PM SANITARY CHEMIST documented as of this encounter Plan of Treatment Upcoming Encounters Date Type Department Care Team (Late Contact Info) Description 04/07/2024 10:00 AM SANITARY CHEMIST Office Visit [facility] [address] [facility] [address] [place] [address] Evelin Blanco APRN-CNP [address] [address] 06/06/2024 2:00 PM CDT Office Visit [facility] [address] [facility] [address] [place] [address] [place] [address] [facility] [address] [place] [address] documented as of this encounter Goals Goal Patient Goal Type Associated Problems Recent Progress Patient-Stated? Author Blood Pressure < 140/90 Blood Pressure 96/68(2023 2:34 PM SANITARY CHEMIST) Rere Vargas Note: Caring for Your [...] Related Tools, and click ? HBP Trackers.? 1-050-VMR-USA-1 or ( ) National Heart, Lung and Blood [place]: http://www.nhlbi.nih.gov/health/infoctr/index.htm Blood Pressure < 140/90 Blood Pressure 96/68(2023 2:34 PM SANITARY CHEMIST) Rere Vargas Note: Caring for Your [...] Related Tools, and click ? HBP Trackers.? 9-905-CIV-USA-1 or ( ) National Heart, Lung and Blood [place]: http://www.nhlbi.nih.gov/health/infoctr/index.htm Blood Pressure < 140/90 Blood Pressure 96/68(2023 2:34 PM SANITARY CHEMIST) aCssie Parks Note: Caring for Your High Blood [...] Related Tools, and click ? HBP Trackers.? 8-293-EGO-USA-1 or ( ) National Heart, Lung and Blood [place]: http://www.nhlbi.nih.gov/health/infoctr/index.htm Exercise 5X per week (30 [...] diabetes: ? ? [place] Diabetes Association: www.diabetes.org 5-929-ERTDGZOZ ( ) ? ? [place] Diabetes Association-Support group line: www.professional.diabetes.org ? ? [place] Heart Association: www.heart.org or 5-753-WYR-USA-1 ( ) [employer] MyPlate: www.Voxbonemyplate.gov Have labs drawn Lifestyle No Rere Kaufman [...] disease documented in this encounter Care Teams Job Trainer Relationship Specialty Start Date End Date Rosana Solo MD [address] [place] [address] PCP - Attributed-[facility] 02/19/19 [place] [address] [facility] [address] [place] [address] Ophthalmology 04/06/16 documented as of this encounter
--- OUTSIDE RECORDS SUMMARY | 2024-04-03 02:27 | XMS_ITS | Encounter Summary ---
Author Organization [facility] Address [address] [place] [address] Care Team Providers Care Pond Worker Name Role Phone Ricco Andrew MD Unavailable [phone] Reason for Visit * Reason Comments Refill Request Encounter Details Date Type Department Care Team (Late st Contact Info) Description 01/31/2019 Refill [facility] - Family Medicine [address] [place] [address] Rosana Solo MD [address] [address] Refill Request Social History Tobacco [...] Last refill- *08/10/18 Last OV-08/29/18 Future OV*02/28/[address] PILOT SUPERVISOR documented in this encounter Plan of Treatment Upcoming Encounters Date Type Department Care Team (Late st Contact Info) Description 04/07/2024 10:00 AM AIRPLANE PILOT SUPERVISOR Office Visit [facility] [address] [facility] [address] [place] [address] Evelin Blanco APRN-DENIS [address] [address] 06/06/2024 2:00 PM CDT Office Visit [facility] [id number] [place] [address] 600 [place] [address] [place] [address] [facility] [address] [phone] documented as of this encounter Goals Goal Patient Goal Type Associated Problems Recent Progress Patient-Stated? Author Blood Pressure < 140/90 Blood Pressure 96/68(2023 2:34 PM AIRPLANE PILOT SUPERVISOR) Rere Vargas Note: Caring for Your [...] Where can I go for more information? Ivorian Heart Association National Center: http://www.americanheart.org 1. In the top header, click ? Conditions? . 2. In the top header, click ? high blood pressure.? 3. For a printable blood pressure tracker, scroll toward the bottom of the page to Related Tools, and click ? HBP Trackers.? 3-968-PVK-USA-1 or ( ) National Heart, Lung and Blood [place]: http://www.nhlbi.nih.gov/health/infoctr/index.htm Blood Pressure < 140/90 Blood Pressure 96/68(2023 2:34 PM AIRPLANE PILOT SUPERVISOR) Rere Vargas Note: Caring for Your [...] Where can I go for more information? Ivorian Heart Association National Center: http://www.americanheart.org 1. In the top header, click ? Conditions? . 2. In the top header, click ? high blood pressure.? 3. For a printable blood pressure tracker, scroll toward the bottom of the page to Related Tools, and click ? HBP Trackers.? 3-187-NHC-USA-1 or ( ) National Heart, Lung and Blood [place]: http://www.nhlbi.nih.gov/health/infoctr/index.htm Exercise 5X per week (30 min per time) Exercise No Rere Kaufman Note: The Ivorian College of Sports Medicine recommends all adults [...] how to manage your diabetes: ? ? Ivorian Diabetes Association: www.diabetes.org 7-795-WRWNBOLE ( ) ? ? Ivorian Diabetes Association-Support group line: www.professional.diabetes.org ? ? Ivorian Heart Association: www.heart.org or 6-758-VAQ-USA-1 ( ) [employer] MyPlate: www.The Etailersmyplate.gov Have labs drawn Lifestyle Rere Vargas Note: [...] on filedocumented in this encounter Care Teams Pond Worker Relationship Specialty [place] [address] [address] Ophthalmology 04/06/16 documented as of this encounter
--- OUTSIDE RECORDS SUMMARY | 2024-04-03 02:27 | XMS_ITS | Encounter Summary ---
Author Organization [facility] Address [address] [facility] [place] [address] Care Team Providers Care Gun Examiner Name Role Phone Ricco Andrew MD Unavailable [phone] Reason for Visit * Reason Onset Date Comments Referral 02/01/2019 Encounter Details Date Type Department Care Team (Late st Contact Info) Description 02/01/[address] [facility] Medical [facility] - Family Medicine [address] [place] [address] Rosana Solo MD [address] [facility] [address] [place] [address] Referral Social History Tobacco Use [...] CST Referral has been completed and faxed. Auth#[id number] Valid From:02/02/19-08/01/19 Visits:6 CH INSPECTOR * Telephone Encounter - Ember Dumont - 02/01/2019 1:02 PM CST Mk Sanches is in need of an insurance referral for : Eye exam Diagnosis Code or reason being Seen: Eye Exam Date of Scheduled Appt- 02/03/2019 Specialist Name- [facility] Specialist Phone Number- [phone] Specialist Fax Number- [phone] Insurance- [facility] Care Improvement PCP- Rosana Solo MD Person calling for the referral- Cassie (daughter) CH INSPECTOR documented in this encounter Plan of Treatment Upcoming Encounters Date Type Department Care Team (Late st Contact Info) Description 04/07/2024 10:00 AM SWITCH INSPECTOR Office Visit [facility] [id number] [place] [address] [address] [place], [place] [address] Evelin Blanco, JOSETTE-STOCK DRIVER [address] [place] [address] 06/06/2024 2:00 PM CDT Office Visit [facility] [address] [place] [address] [address] [place], [place] [address] [place] [address] [place] [phone] documented as of this encounter Goals Goal Patient Goal Type Associated Problems Recent Progress Patient-Stated? Author Blood Pressure < 140/90 Blood Pressure 96/68(2023 2:34 PM SWITCH INSPECTOR) Rere Vargas Note: Caring for Your [...] Related Tools, and click ? HBP Trackers.? 7-992-CVA-USA-1 or ( ) National Heart, Lung and Blood [place]: http://www.nhlbi.nih.gov/health/infoctr/index.htm Blood Pressure < 140/90 Blood Pressure 96/68(2023 2:34 PM SWITCH INSPECTOR) Rere Vargas Note: Caring for Your [...] Related Tools, and click ? HBP Trackers.? 6-138-SNO-USA-1 or ( ) National Heart, Lung and Blood [place]: http://www.nhlbi.nih.gov/health/infoctr/index.htm Exercise 5X per week (30 min per time) Exercise Rere Vargas Note: The Cameroonian College of Sports Medicine [...] diabetes: ? ? Cameroonian Diabetes Association: www.diabetes.org 5-269-MNBBCQNW ( ) ? ? Cameroonian Diabetes Association-Support group line: www.professional.diabetes.org ? ? Cameroonian Heart Association: www.heart.org or 1-795-LER-USA-1 ( ) [facility] MyPlate: www.Visual Unitymyplate.gov Have labs drawn Lifestyle Rere Vargas Note: [...] on filedocumented in this encounter Care Teams Gun Examiner Relationship Specialty [place] [address] [address] Ophthalmology 04/06/16 documented as of this encounter
--- OUTSIDE RECORDS SUMMARY | 2024-04-03 02:27 | XMS_ITS | Encounter Summary ---
Author Organization [facility] Address [address] [facility] [address] Care Team Providers Care Ui Ux Developer Name Role Phone Ricco Andrew MD Unavailable [phone] Rosana Solo MD Unavailable [phone] Reason for Visit * Reason Comments Refill Request Encounter Details Date Type Department Care Team (Late st Contact Info) Description 01/10/2020 Refill [facility] - Family Medicine [address] [place], [place] [phone] Rosana Solo MD [address] [place] [address] Refill Request Social History Tobacco Use [...] Contact Info) Description 04/07/2024 10:00 AM PATIENT FINANCIAL SERVICES SPECIALIST Office Visit [facility] [address] [place] [address] [address] [place] [address] Evelin Blanco APRN-CNP [address] [facility] [address] [place] [address] 06/06/2024 2:00 PM CDT Office Visit [facility] [address] [place] [address] [address] [place], [place] [phone] Chris Aden MD [address] [place] [phone] documented as of this encounter Goals Goal Patient Goal Type Associated Problems Recent Progress Patient-Stated? Author Blood Pressure < 140/90 Blood Pressure 96/68(2023 2:34 PM PATIENT FINANCIAL SERVICES SPECIALIST) Rere Vargas Note: Caring for Your [...] Where can I go for more information? Ethiopian Heart Association National Center: http://www.americanheart.org 1. In the top header, click ? Conditions? . 2. In the top header, click ? high blood pressure.? 3. For a printable blood pressure tracker, scroll toward the bottom of the page to Related Tools, and click ? HBP Trackers.? 2-755-ANL-USA-1 or ( ) National Heart, Lung and Blood [place]: http://www.nhlbi.nih.gov/health/infoctr/index.htm Blood Pressure < 140/90 Blood Pressure 96/68(2023 2:34 PM PATIENT FINANCIAL SERVICES SPECIALIST) Rere Vargas Note: Caring for Your [...] Where can I go for more information? Ethiopian Heart Association National Center: http://www.americanheart.org 1. In the top header, click ? Conditions? . 2. In the top header, click ? high blood pressure.? 3. For a printable blood pressure tracker, scroll toward the bottom of the page to Related Tools, and click ? HBP Trackers.? 9-258-UVD-USA-1 or ( ) National Heart, Lung and Blood [place]: http://www.nhlbi.nih.gov/health/infoctr/index.htm Blood Pressure < 140/90 Blood Pressure 96/68(2023 2:34 PM PATIENT FINANCIAL SERVICES SPECIALIST) Cassie Parks Note: Caring for Your [...] Where can I go for more information? Ethiopian Heart Association National Center: http://www.americanheart.org 1. In the top header, click ? Conditions? . 2. In the top header, click ? high blood pressure.? 3. For a printable blood pressure tracker, scroll toward the bottom of the page to Related Tools, and click ? HBP Trackers.? 4-688-DFZ-USA-1 or ( ) National Heart, Lung and Blood [place]: http://www.nhlbi.nih.gov/health/infoctr/index.htm Exercise 5X per week (30 min per time) Exercise Rere Vargas Note: The Ethiopian College of Sports Medicine recommends all adults [...] how to manage your diabetes: ? ? Ethiopian Diabetes Association: www.diabetes.org 1-897-LQOOMGVU ( ) ? ? Ethiopian Diabetes Association-Support group line: www.professional.diabetes.org ? ? Ethiopian Heart Association: www.heart.org or 9-611-QLS-USA-1 ( ) [employer] MyPlate: www.Indigozmyplate.gov Have labs drawn Lifestyle Rere Vargas Note: [...] on filedocumented in this encounter Care Teams Ui Ux Developer Relationship Specialty Start Date End Date Rosana Solo MD [address] [facility] [address] [place] [address] PCP - Attributed-[facility] 02/19/19 [place] [address] [facility] [address] [place] [address] Ophthalmology 04/06/16 documented as of this encounter
--- OUTSIDE RECORDS SUMMARY | 2024-04-03 02:27 | XMS_ITS | Encounter Summary ---
Author Organization [facility] Address [address] [place] [address] Care Team Providers Care Regional Dedicated Truck Driver Name Role Phone Ricco Andrew MD Unavailable [phone] Rosana Solo MD Unavailable [phone] Reason for Visit * Reason Comments ER UC Follow-up Encounter Details Date Type Department Care Team (Late st Contact Info) Description 11/07/2019 1:30 PM CDT Office Visit [facility] - Family Medicine [address] [place] [address] Rosana Solo MD [address] [address] Hospital discharge follow-up (Primary Dx); [...] were not included. Patient Education Bacterial Pneumonia JAVA SYBASE DEVELOPER: Bacterial pneumonia is a lung infection caused [...] ask them during your visits. ?? Copyright [employer] 2019 Information is for End User's use only and may not be sold, redistributed or otherwise used for commercial purposes. All illustrations and images included in CareNotes?? are the copyrighted property of [employer] or [employer] The above information is an family service aide only. It is not intended as [...] st Contact Info) Description 04/07/2024 10:00 AM CAR CUSTOMIZER Office Visit [facility] [phone] [place] [address] Evelin Blanco, GEODETIC COMPUTATOR-BELT CHANGER [address] [place] [address] 06/06/2024 2:00 PM CDT Office Visit [address] [address] Chris [place]en [place] [address] [place] [phone] documented as of this encounter Goals Goal Patient Goal Type Associated Problems Recent Progress Patient-Stated? Author Blood Pressure < 140/90 Blood Pressure 96/68(2023 2:34 PM CAR CUSTOMIZER) Rere Vargas Note: Caring for Your High [...] Related Tools, and click ? HBP Trackers.? 0-476-HLM-USA-1 or ( ) National Heart, Lung and Blood [place]: http://www.nhlbi.nih.gov/health/infoctr/index.htm Blood Pressure < 140/90 Blood Pressure 96/68(2023 2:34 PM CAR CUSTOMIZER) Rere Vargas Note: Caring for Your High [...] Related Tools, and click ? HBP Trackers.? 5-595-WIU-USA-1 or ( ) National Heart, Lung and Blood [place]: http://www.nhlbi.nih.gov/health/infoctr/index.htm Blood Pressure < 140/90 Blood Pressure 96/68(2023 2:34 PM CAR CUSTOMIZER) Cassie Parks Note: Caring for Your High [...] Related Tools, and click ? HBP Trackers.? 5-094-EFH-USA-1 or ( ) National Heart, Lung and Blood [place]: http://www.nhlbi.nih.gov/health/infoctr/index.htm Exercise 5X per week (30 min per time) Exercise No Rere Kaufman Note: The Micronesian College of Sports Medicine [...] diabetes: ? ? Micronesian Diabetes Association: www.diabetes.org 7-088-SLXQFOAP ( ) ? ? Micronesian Diabetes Association-Support group line: www.professional.diabetes.org ? ? Micronesian Heart Association: www.heart.org or 8-318-RNW-USA-1 ( ) [employer] MyPlate: www.ThaTrunk Incmyplate.gov Have labs drawn Lifestyle No Rere Kaufman [...] (HCC) documented in this encounter Care Teams Regional Dedicated Truck Driver Relationship Specialty Start Date End Date Rosana Solo MD [address] [facility] [address] [place] [address] PCP - Attributed-[facility] 02/19/19 [place] [address] [address] Ophthalmology 04/06/16 documented as of this encounter
--- OUTSIDE RECORDS SUMMARY | 2024-04-03 02:27 | XMS_ITS | Encounter Summary ---
Author Organization [facility] Address [address] [facility] [place] [address] Care Team Providers Care Director Of Community Education Name Role Phone Ricco Andrew MD Unavailable [phone] Rosana Solo MD Unavailable [phone] Reason for Visit * Reason Comments Refill Request Encounter Details Date Type Department Care Team (Late Contact Info) Description 09/22/2019 Refill [facility] [address] [facility] [address] [place] [address] Rosana Solo MD [facility] [address] Refill Request Social History Tobacco [...] Contact Info) Description 04/07/2024 10:00 AM INSURANCE CLAIMS SUPERVISOR Office Visit [facility] [address] [facility] [address] [place] [address] Buwalda, NIKITA Waters [address] [facility] [address] [place] [address] 06/06/2024 2:00 PM CDT Office Visit [facility] [address] [facility] [address] [place], [place] [address] [place] [address] [facility] [address] [place] [address] documented as of this encounter Goals Goal Patient Goal Type Associated Problems Recent Progress Patient-Stated? Author Blood Pressure < 140/90 Blood Pressure 96/68(2023 2:34 PM INSURANCE CLAIMS SUPERVISOR) Rere Vargas Note: Caring for [...] Related Tools, and click ? HBP Trackers.? 1-726-EEUUSA- or ( ) National Heart, Lung and Blood [place]: http://www.nhlbi.nih.gov/health/infoctr/index.htm Blood Pressure < 140/90 Blood Pressure 96/68(2023 2:34 PM INSURANCE CLAIMS SUPERVISOR) Rere Vargas Note: Caring for [...] Related Tools, and click ? HBP Trackers.? 7-191-XRRUSA- or ( ) National Heart, Lung and Blood [place]: http://www.nhlbi.nih.gov/health/infoctr/index.htm Blood Pressure < 140/90 Blood Pressure 96/68(2023 2:34 PM INSURANCE CLAIMS SUPERVISOR) No Cassie Marie Note: Caring [...] Related Tools, and click ? HBP Trackers.? 4-093-TGM-USA-1 or ( ) National Heart, Lung and Blood [place]: http://www.nhlbi.nih.gov/health/infoctr/index.htm Exercise 5X per week (30 [...] diabetes: ? ? Nauruan Diabetes Association: www.diabetes.org 5-513-FOUJTXZS ( ) ? ? Nauruan Diabetes Association-Support group line: www.professional.diabetes.org ? ? Nauruan Heart Association: www.heart.org or 8-157-PJX-USA-1 ( ) [employer] MyPlate: www.Safe Communicationsmyplate.gov Have labs drawn Lifestyle Rere Vargas Note: [...] in this encounter Care Teams Director Of Community Education Relationship Specialty Start Date End Date Rosana Solo MD [address] [facility] [address] [place] [address] PCP - Attributed-[facility] 02/19/19 [place] [address] [facility] [address] [place] [address] Ophthalmology 04/06/16 documented as of this encounter
--- OUTSIDE RECORDS SUMMARY | 2024-04-03 02:27 | XMS_ITS | Encounter Summary ---
Author Organization [facility] Address [address] [facility] [place] [address] Care Team Providers Care Install And Repair Technician Name Role Phone Ricco Andrew MD Unavailable [phone] Rosana Solo MD Unavailable [phone] Encounter Details Date Type Department Care [...] COVID-19? No / Unsure 03/28/2020 4:14 PM BACK PANEL PADDER documented as of this encounter Plan of Treatment Upcoming Encounters Date Type Department Care Team (Late st Contact Info) Description 04/07/2024 10:00 AM BACK PANEL PADDER Office Visit [facility] - Family Medicine [address] [facility] [address] [place] [address] Evelin Blanco, JOSETTE-DENIS [address] [facility] [address] [place] [address] 06/06/2024 2:00 PM CDT Office Visit [facility] [address] [facility] [address] [place] [address] [place] [address] [facility] [address] [place] [address] [place] [address] documented as of this encounter Goals Goal Patient Goal Type Associated Problems Recent Progress Patient-Stated? Author Blood Pressure < 140/90 Blood Pressure 96/68(2023 2:34 PM BACK PANEL PADDER) Rere Vargas Note: Caring for Your High [...] Related Tools, and click ? HBP Trackers.? 8-891-YQV-USA- or ( ) National Heart, Lung and Blood [place]: http://www.nhlbi.nih.gov/health/infoctr/index.htm Blood Pressure < 140/90 Blood Pressure 96/68(2023 2:34 PM BACK PANEL PADDER) No Rere Kaufman Note: Caring for Your [...] Related Tools, and click ? HBP Trackers.? 3-595-CBG-USA-1 or ( ) National Heart, Lung and Blood [place]: http://www.nhlbi.nih.gov/health/infoctr/index.htm Blood Pressure < 140/90 Blood Pressure 96/68(2023 2:34 PM BACK PANEL PADDER) No Cassie Marie Note: Caring for Your [...] Related Tools, and click ? HBP Trackers.? 0-948-UHF-USA-1 or ( ) National Heart, Lung and Blood [place]: http://www.nhlbi.nih.gov/health/infoctr/index.htm Exercise 5X per week (30 min [...] diabetes: ? ? Bhutanese Diabetes Association: www.diabetes.org 8-915-ODDIIZCY ( ) ? ? Bhutanese Diabetes Association-Support group line: www.professional.diabetes.org ? ? Bhutanese Heart Association: www.heart.org or 0-510-YQU-USA-1 ( ) [employer] MyPlate: www.RPI (Reischling [employer])myplate.gov Have labs drawn Lifestyle Rere Vargas Note: [...] on filedocumented in this encounter Care Teams Install And Repair Technician Relationship Specialty Start Date End Date Rosana Solo MD [address] [facility] [facility] [address] [place] [address] PCP - Attributed-[facility] 02/19/19 [place] [address] [facility] [address] [place] [address] Ophthalmology 04/06/16 documented as of this encounter
--- OUTSIDE RECORDS SUMMARY | 2024-04-03 02:27 | XMS_ITS | Encounter Summary ---
Author Organization [facility] Address [address] [facility] [place] [address] Care Team Providers Care Oss Architect Name Role Phone Ricco Andrew MD Unavailable [phone] Rosana Solo MD Unavailable [phone] Reason for Visit * Reason Comments Refill Request Encounter Details Date Type Department Care Team (Late st Contact Info) Description 04/01/2019 Refill [facility] - Family Medicine [address] [place], [place] [id number] Rosana Solo MD [address] [place] [phone] Refill Request Social History Tobacco Use [...] CST Last seen 02/28/2019 Future appointment 08/30/2019 UARY PAINTER documented in this encounter Plan of Treatment Upcoming Encounters Date Type Department Care Team (Late st Contact Info) Description 04/07/2024 10:00 AM STATUARY PAINTER Office Visit [facility] [address] [facility] [address] [place] [address] Evelin Blanco APRN-CNP [address] [facility] [address] [place] [address] 06/06/2024 2:00 PM CDT Office [facility] [address] [facility] [address] [place] [address] [place] [address] [facility] [address] [place] [address] documented as of this encounter Goals Goal Patient Goal Type Associated Problems Recent Progress Patient-Stated? Author Blood Pressure < 140/90 Blood Pressure 96/68(2023 2:34 PM STATUARY PAINTER) Rere Vargas Note: Caring for Your [...] Related Tools, and click ? HBP Trackers.? 8-508-PHI-USA-1 or ( ) National Heart, Lung and Blood [place]: http://www.nhlbi.nih.gov/health/infoctr/index.htm Blood Pressure < 140/90 Blood Pressure 96/68(2023 2:34 PM STATUARY PAINTER) Rere Vargas Note: Caring for Your [...] Related Tools, and click ? HBP Trackers.? 0-568-UNV-USA-1 or ( ) National Heart, Lung and Blood [place]: http://www.nhlbi.nih.gov/health/infoctr/index.htm Blood Pressure < 140/90 Blood Pressure 96/68(2023 2:34 PM STATUARY PAINTER) Susan Marie Cassie Uche Note: Caring for [...] Related Tools, and click ? HBP Trackers.? 7-310-EML- or ( ) National Heart, Lung and Blood [place]: http://www.nhlbi.nih.gov/health/infoctr/index.htm Exercise 5X per week (30 min [...] diabetes: ? ? Indian Diabetes Association: www.diabetes.org 2-911-ULKHNNDG ( ) ? ? Indian Diabetes Association-Support group line: www.professional.diabetes.org ? ? Indian Heart Association: www.heart.org or 6-567-XIZ-USA-1 ( ) Orteq MyPlate: www.MegaBitsmyplate.gov Have labs drawn Lifestyle Rere Vargas Note: [...] on filedocumented in this encounter Care Teams Oss Architect Relationship Specialty Start Date End Date Rosana Solo MD [address] [facility] [address] [place] [address] PCP - Attributed-[facility] 02/19/19 [place] [address] [facility] [address] [place] [phone] Ophthalmology 04/06/16 documented as of this encounter
--- OUTSIDE RECORDS SUMMARY | 2024-04-03 02:27 | XMS_ITS | Encounter Summary ---
Author Organization [facility] Address [address] [facility] [place] [address] Care Team Providers Care Bilingual Call Center Representative Name Role Phone Ricco Andrew MD Unavailable [phone] Chauncey Herrera MD Unavailable [phone] Reason for Visit * Reason Comments Refill Request Encounter Details Date Type Department Care Team (Late st Contact Info) Description 09/19/2020 Refill [facility] - Family Medicine [id number] [place] [address] Clarice Hernandez [facility] [address] [place] [address] Refill Request Social History Tobacco Use [...] daily, before breakfast and supper Authorizing Provider: CHAUNCEY HERRERA Has been on rx BID for [...] st Contact Info) Description 04/07/2024 10:00 AM CHANGE CONTROL SPECIALIST Office Visit [address] [address] Evelin Blanco APRN-NEUROLOGY SPECIALIST [id number] [place] [address] 06/06/2024 2:00 PM CDT Office Visit [facility] [address] [place] [address] Chris [place]en MD [id number] [place] [address] documented as of this encounter Goals Goal Patient Goal Type Associated Problems Recent Progress Patient-Stated? Author Blood Pressure < 140/90 Blood Pressure 96/68(2023 2:34 PM CHANGE CONTROL SPECIALIST) Rere Vargas Note: Caring for Your [...] Related Tools, and click ? HBP Trackers.? 0-434-FLU-USA-1 or ( ) National Heart, Lung and Blood [place]: http://www.nhlbi.nih.gov/health/infoctr/index.htm Blood Pressure < 140/90 Blood Pressure 96/68(2023 2:34 PM CHANGE CONTROL SPECIALIST) Rere Vargas Note: Caring for Your [...] Related Tools, and click ? HBP Trackers.? 3-418-LTZ-USA-1 or ( ) National Heart, Lung and Blood [place]: http://www.nhlbi.nih.gov/health/infoctr/index.htm Blood Pressure < 140/90 Blood Pressure 96/68(2023 2:34 PM CHANGE CONTROL SPECIALIST) Cassie Parks Note: Caring for Your [...] Related Tools, and click ? HBP Trackers.? 1-159-UVO-USA-1 or ( ) National Heart, Lung and Blood [place]: http://www.nhlbi.nih.gov/health/infoctr/index.htm Exercise 5X per week (30 min per time) Exercise No Rere Kaufman Note: The [place] College of Sports Medicine [...] diabetes: ? ? [place] Diabetes Association: www.diabetes.org 3-450-HQKEXIKQ ( ) ? ? [place] Diabetes Association-Support group line: www.professional.diabetes.org ? ? [place] Heart Association: www.heart.org or 8-478-HTN-USA-1 ( ) virtual tweens ltd MyPlate: www.MediaCoremyplate.gov Have labs drawn Lifestyle No Rere Kaufman [...] on filedocumented in this encounter Care Teams Bilingual Call Center Representative Relationship Specialty Start Date End Date Chauncey Herrera MD [address] [place] [address] PCP - Attributed-[facility] 02/19/19 [place] [address] [facility] [address] [facility] [address] [place] [address] Ophthalmology 04/06/16 documented as of this encounter
--- OUTSIDE RECORDS SUMMARY | 2024-04-03 02:27 | XMS_ITS | Encounter Summary ---
Author Organization [facility] Address [address] [facility] [place] [address] Care Team Providers Care Aquaculture Farmer Name Role Phone Ricco Andrew MD Unavailable [phone] Rosana Solo MD Unavailable [phone] Reason for Visit * Reason Comments Medicare Subsequent Annual Wellness Visi t Encounter Details Date Type Department Care Team (Late st Contact Info) Description 03/04/2020 1:00 PM INSPECTOR SCALES Office Visit [facility] - Family [facility] [id number] [place] [address] [facility]ice [facility] [address] [phone] Routine general medical examination at a health care facility (Primary Dx); Alzheimer's dementia without behavioral disturbance, unspecified timing of dementia onset; Type 2 diabetes mellitus with diabetic neuropathy, unspecified whether group home insulin use (HCC); Hypothyroidism, adult; Stage 3 [...] Comments Blood Pressure 124/68 03/04/2020 1:07 PM INSPECTOR SCALES Pulse 84 03/04/2020 1:07 PM INSPECTOR SCALES Temperature 36 ??C (96.8 ??F) 03/04/2020 1:07 PM INSPECTOR SCALES Respiratory Rate - - Oxygen Saturation - - Inhaled Oxygen Concentration - - Weight 77.1 kg (170 lb) 03/04/2020 1:07 PM INSPECTOR SCALES Height - - Body Mass Index 25.1 11/07/2019 1:27 PM CDT documented in this encounter Patient Instructions * Patient Instructions* Clarice Hernandez APRN-CNP - 03/04/2020 1:22 PM INSPECTOR SCALES Up date lab work today in [address] [place] [facility] Ask pharmacy about shingles vaccine Set up apt with eye MD and foot MD Follow up in 6 months or sooner if needed ECTOR SCALES documented in this encounter Progress Notes * [...] file Gets together: Not on file Attends worship service: Not on file Active member of [...] CURRENT CARE PROVIDERS Patient Care Team: Rosana Solo MD as PCP - General (Family Medicine) Rosana Solo MD as PCP - [facility] Ricco Johnson MD (Ophthalmology) END-OF-LIFE PLANNING [...] neuropathy, unspecified whether group home insulin use E11.40 AMB REFERRAL TO OPHTHALMOLOGY [...] Up date lab work today in [address] [place] [address] [facility] Ask pharmacy about shingles vaccine Set up apt with eye MD and foot MD Follow up in 6 months or sooner if needed ECTOR SCALES documented in this encounter Plan of Treatment Upcoming Encounters Date Type Department Care Team (Late st Contact Info) Description 04/07/2024 10:00 AM INSPECTOR SCALES Office Visit [address] [address] Evelin Blanco APRN-CNP [id number] [place] [address] 06/06/2024 2:00 PM CDT Office Visit [address] [address] Chris Aden MD [address] [place] [address] documented as of this encounter Goals Goal Patient Goal Type Associated Problems Recent Progress Patient-Stated? Author Blood Pressure < 140/90 Blood Pressure 96/68(2023 2:34 PM INSPECTOR SCALES) Rere Vargas Note: Caring for Your High [...] Related Tools, and click ? HBP Trackers.? 2-578-UJX-USA-1 or ( ) National Heart, Lung and Blood [place]: http://www.nhlbi.nih.gov/health/infoctr/index.htm Blood Pressure < 140/90 Blood Pressure 96/68(2023 2:34 PM INSPECTOR SCALES) Rere Vargas Note: Caring for Your High [...] Related Tools, and click ? HBP Trackers.? 5-250-QOC-USA-1 or ( ) National Heart, Lung and Blood [place]: http://www.nhlbi.nih.gov/health/infoctr/index.htm Blood Pressure < 140/90 Blood Pressure 96/68(2023 2:34 PM INSPECTOR SCALES) Cassie Parks Note: Caring for Your High [...] Related Tools, and click ? HBP Trackers.? 8-912-PCO-USA-1 or ( ) National Heart, Lung and Blood [place]: http://www.nhlbi.nih.gov/health/infoctr/index.htm Exercise 5X per week (30 min [...] diabetes: ? ? [place] Diabetes Association: www.diabetes.org 3-006-UPEMJFQQ ( ) ? ? [place] Diabetes Association-Support group line: www.professional.diabetes.org ? ? [place] Heart Association: www.heart.org or 4-098-QMY-USA-1 ( ) Magneceutical Health MyPlate: www.AppJetmyplate.gov Have labs drawn Lifestyle Rere Vargas Note: [...] A1C W EAG Routine 03/04/2020 2:24 PM INSPECTOR SCALES Type 2 diabetes mellitus with diabetic neuropathy, unspecified whether lime filter operator insulin use (HCC) TSH REFLEX FREE T4 Routine 03/04/2020 2: 24 PM INSPECTOR SCALES Hypothyroidism, adult COMPREHENSIVE METABOLIC PANEL Routine 03/04/2020 2:24 PM INSPECTOR SCALES Stage 3 chronic kidney disease, unspecified whether stage 3a or 3b CKD (HCC) documented in this encounter Results * TSH REFLEX FREE T4 (03/04/2020 2:24 PM INSPECTOR SCALES) TSH 2.913 0.350 - 4.940 uIU/mL [facility] ACCOUNT BILL Blood BLOOD SPECIMEN / Unknown 03/04/2020 2:24 PM INSPECTOR SCALES 03/04/2020 Narrative Resulting Agency Comment Lab Testing performed at: [facility] [address] ?? [place] [id number] Clarice Hernandez ORGANIZATIONAL PSYCHOLOGIST-POLICE [facility] - CHEMISTRY O RDERABLES [facility] ACCOUNT BILL [address] [place] [address] * (ABNORMAL) HEMOGLOBIN A1C W EAG (03/04/2020 2:24 PM INSPECTOR SCALES) Hemoglobin A1c 7.9(H) 4.2 - 5.6 % [facility] ACCOUNT BILL Estimated Average Glucose 180 mg/dL [facility] ACCOUNT BILL Comment: The following cutoff levels are recommended by [place] Diab etes Association. A1c ??> 6.5% : [...] BLOOD SPECIMEN / Unknown 03/04/2020 2:24 PM INSPECTOR SCALES 03/04/2020 Narrative Resulting Agency Comment Lab Testing performed at: [facility] [address] ?? [place] [id number] Clarice MICHELPOLICE [facility] - CHEMISTRY O RDERABLES [facility] ACCOUNT BILL [address] [place] [address] * (ABNORMAL) COMPREHENSIVE METABOLIC PANEL (03/04/2020 2:24 PM INSPECTOR SCALES) Glucose 218(H) 70 - 105 mg/dL [facility] [...] BLOOD SPECIMEN / Unknown 03/04/2020 2:24 PM INSPECTOR SCALES 03/04/2020 Narrative Resulting Agency Comment Lab Testing performed at: [facility] [address] ?? [place] [id number] Clarice Hernandez APRN-POLICE [facility] - CHEMISTRY O RDERABLES [facility] ACCOUNT BILL [address] [place] [address] documented in this encounter Visit Diagnoses Diagnosis Routine general medical examination at a health care facility- Primary Alzheimer's dementia without behavioral disturbance, unspecified timing of dementia onset (HCC) Type 2 diabetes mellitus with diabetic neuropathy, unspecified whether lime filter operator insulin use (HCC) Hypothyroidism, adult Other specified acquired hypothyroidism Stage 3 chronic kidney disease, unspecified whether stage 3a or 3b CKD (HCC) Gait instability Abnormality of gait Need for influenza vaccination Need for prophylactic vaccination and inoculation against influenza documented in this encounter Care Teams Aquaculture Farmer Relationship Specialty Start Date End Date Rosana Solo MD [address] [facility] [address] [place] [phone] PCP - Attributed-[facility] 02/19/19 [place] [address] [facility] [address] [facility] [address] [place] [address] Ophthalmology 04/06/16 documented as of this encounter
--- OUTSIDE RECORDS SUMMARY | 2024-04-03 02:27 | XMS_ITS | Encounter Summary ---
Author Organization [facility] Address [address] [facility] [place] [address] Care Team Providers Care Acid Recovery Operator Name Role Phone Ricco Andrew MD Unavailable [phone] Rosana Solo MD Unavailable [phone] Reason for Visit * Reason Comments Refill Request Encounter Details Date Type Department Care Team (Late st Contact Info) Description 08/10/2019 Refill [facility] - Family Medicine [address] [place], [place] [phone] Rosana Solo MD [address] [place] [address] Refill Request Social History Tobacco Use [...] st Contact Info) Description 04/07/2024 10:00 AM HEALTHCARE TRANSLATOR Office Visit [facility] [id number] [place] [address] [address] [place], [place] [phone] Evelin Blanco APRN-DENIS [address] [facility] [address] [place] [address] 06/06/2024 2:00 PM CDT Office Visit [facility] [address] [place] [address] [address] [place] [address] [place] [address] [facility] [address] [place] [address] documented as of this encounter Goals Goal Patient Goal Type Associated Problems Recent Progress Patient-Stated? Author Blood Pressure < 140/90 Blood Pressure 96/68(2023 2:34 PM HEALTHCARE TRANSLATOR) Rere Vargas Note: Caring for Your High [...] Related Tools, and click ? HBP Trackers.? 0-555-GIV-USA-1 or ( ) National Heart, Lung and Blood [place]: http://www.nhlbi.nih.gov/health/infoctr/index.htm Blood Pressure < 140/90 Blood Pressure 96/68(2023 2:34 PM HEALTHCARE TRANSLATOR) Rere Vargas Note: Caring for Your High [...] Related Tools, and click ? HBP Trackers.? 2-175-LAV-USA- or ( ) National Heart, Lung and Blood [place]: http://www.nhlbi.nih.gov/health/infoctr/index.htm Blood Pressure < 140/90 Blood Pressure 96/68(2023 2:34 PM HEALTHCARE TRANSLATOR) Cassie Parks Note: Caring for Your High [...] Related Tools, and click ? HBP Trackers.? 9-133-LVM-USA- or ( ) National Heart, Lung and [...] diabetes: ? ? [place] Diabetes Association: www.diabetes.org 8-232-IKLEOFQH ( ) ? ? [place] Diabetes Association-Support group line: www.professional.diabetes.org ? ? [place] Heart Association: www.heart.org or 3-282-COX-USA-1 ( ) Flurry MyPlate: www.UB Accessmyplate.gov Have labs drawn Lifestyle Rere Vargas Note: [...] on filedocumented in this encounter Care Teams Acid Recovery Operator Relationship Specialty Start Date End Date Rosana Solo MD [address] [facility] [address] [place] [phone] PCP - Attributed-[facility] 02/19/19 [place] [address] [facility] [address] [place] [address] Ophthalmology 04/06/16 documented as of this encounter
--- OUTSIDE RECORDS SUMMARY | 2024-04-03 02:27 | XMS_ITS | Encounter Summary ---
Author Organization [facility] Address [address] [facility] [place] [address] Care Team Providers Care Incinerator Plant Laborer Name Role Phone Ricco Andrew MD Unavailable Reason for Visit * Reason Comments Refill Request Encounter Details Date Type Department Care Team (Late st Contact Info) Description 05/04/2018 Refill [facility] - Family Medicine [address] [place] [address] Rosana Solo MD [address] [address] Refill Request Social History Tobacco [...] 11/11/2017 Last visit: 04/07/2018 Upcoming visit: 08/29/2018 RY MIXER documented in this encounter Plan of Treatment Upcoming Encounters Date Type Department Care Team (Late st Contact Info) Description 04/07/2024 10:00 AM PASTRY MIXER Office Visit [facility] [id number] [place] [address] [address] [place] [address] Evelin Blanco, DE ALCOHOLIZER-COOK LARDER [address] [address] 06/06/2024 2:00 PM CDT Office Visit [facility] [address] [place] [address] [address] [place] [address] [place] [id number] [place] [phone] documented as of this encounter Goals Goal Patient Goal Type Associated Problems Recent Progress Patient-Stated? Author Blood Pressure < 140/90 Blood Pressure 96/68(2023 2:34 PM PASTRY MIXER) Rere Vargas Note: Caring for Your [...] Where can I go for more information? [place] Heart Association National Center: http://www.americanheart.org 1. In the top header, click ? Conditions? . 2. In the top header, click ? high blood pressure.? 3. For a printable blood pressure tracker, scroll toward the bottom of the page to Related Tools, and click ? HBP Trackers.? 1-625-GOZ-USA-1 or ( ) National Heart, Lung and Blood [place]: http://www.nhlbi.nih.gov/health/infoctr/index.htm Blood Pressure < 140/90 Blood Pressure 96/68(2023 2:34 PM PASTRY MIXER) Rere Vargas Note: Caring for Your [...] Where can I go for more information? [place] Heart Association National Center: http://www.americanheart.org 1. In the top header, click ? Conditions? . 2. In the top header, click ? high blood pressure.? 3. For a printable blood pressure tracker, scroll toward the bottom of the page to Related Tools, and click ? HBP Trackers.? 6-179-ZTN-USA-1 or ( ) National Heart, Lung and Blood [place]: http://www.nhlbi.nih.gov/health/infoctr/index.htm Exercise 5X per week (30 min per time) Exercise Rere Vargas Note: The [place] College of Sports Medicine recommends all adults [...] how to manage your diabetes: ? ? [place] Diabetes Association: www.diabetes.org 9-805-CRSVFZEB ( ) ? ? [place] Diabetes Association-Support group line: www.professional.diabetes.org ? ? [place] Heart Association: www.heart.org or 1-202-JEI-[facility]-1 ( ) Un[employer]inance MyPlate: www.SocialRadarmyplate.gov Have labs drawn Lifestyle No Rere Kaufman [...] on filedocumented in this encounter Care Teams Incinerator Plant Laborer Relationship Specialty [place] [address] [address] Ophthalmology 04/06/16 documented as of this encounter
--- OUTSIDE RECORDS SUMMARY | 2024-04-03 02:27 | XMS_ITS | Encounter Summary ---
Author Organization [facility] Address [address] [place] [place] [address] Care Team Providers Care Floral Clerk Name Role Phone Ricco Andrew MD Unavailable Rosana Solo MD Unavailable [phone] Encounter Details Date Type Department Care [...] COVID-19? No / Unsure 03/11/2020 2:12 PM PUMP OILER documented as of this encounter Plan of Treatment Upcoming Encounters Date Type Department Care Team (Late st Contact Info) Description 04/07/2024 10:00 AM PUMP OILER Office Visit [facility] - Family Medicine [address] [facility] [address] [place], [place] [phone] Evelin Blanco, CANDY DEPARTMENT MANAGER-DRY PLACER MACHINE OPERATOR [address] [facility] [address] [place] [address] 06/06/2024 2:00 PM CDT Office Visit [facility] Family Medicine [address] [facility] [address] [place] [address] [place] [address] [facility] [address] [place] [address] [place] [phone] documented as of this encounter Goals Goal Patient Goal Type Associated Problems Recent Progress Patient-Stated? Author Blood Pressure < 140/90 Blood Pressure 96/68(2023 2:34 PM PUMP OILER) Rere Vargas Note: Caring for Your High [...] Related Tools, and click ? HBP Trackers.? 3-581-ZWI-USA- or ( ) National Heart, Lung and Blood [place]: http://www.nhlbi.nih.gov/health/infoctr/index.htm Blood Pressure < 140/90 Blood Pressure 96/68(2023 2:34 PM PUMP OILER) No Rere Kaufman Note: Caring for Your [...] include smoked meats (such as ham and merrlil), cheese, canned and frozen foods, and butter [...] Related Tools, and click ? HBP Trackers.? 3-292-JXI-USA-1 or ( ) National Heart, Lung and Blood [place]: http://www.nhlbi.nih.gov/health/infoctr/index.htm Blood Pressure < 140/90 Blood Pressure 96/68(2023 2:34 PM PUMP OILER) No Cassie Marie Note: Caring for Your [...] Related Tools, and click ? HBP Trackers.? 8-947-FPA-USA-1 or ( ) National Heart, Lung and Blood [place]: http://www.nhlbi.nih.gov/health/infoctr/index.htm Exercise 5X per week (30 min [...] diabetes: ? ? [place] Diabetes Association: www.diabetes.org 1-066-FKSQZOTJ ( ) ? ? [place] Diabetes Association-Support group line: www.professional.diabetes.org ? ? [place] Heart Association: www.heart.org or 6-317-WPX-USA-1 ( ) Medminder MyPlate: www.All Together Nowmyplate.gov Have labs drawn Lifestyle Rere Vargas Note: [...] on filedocumented in this encounter Care Teams Floral Clerk Relationship Specialty Start Date End Date Rosana Solo MD [address] [facility] [address] [place] [address] PCP - Attributed-[facility] 02/19/19 [place] [address] [facility] [address] [place] [phone] Ophthalmology 04/06/16 documented as of this encounter
--- OUTSIDE RECORDS SUMMARY | 2024-04-03 02:27 | XMS_ITS | Encounter Summary ---
Author Organization [facility] Address [address] [place] [address] Care Team Providers Care Lead Cargo Mover Name Role Phone Ricco Andrew MD Unavailable Rosana Solo MD Unavailable [phone] Encounter Details Date Type Department Care [...] st Contact Info) Description 04/07/2024 10:00 AM MASTER MERCHANDISER Office Visit [facility] - Family Medicine [address] [facility] [address] [place] [address] Evelin Blanco, OPTOMETRIST/PRACTICE OWNER-DENIS [address] [facility] [address] [place] [address] 06/06/2024 2:00 PM CDT Office Visit [facility] Family Medicine [address] [facility] [address] [place] [address] [place] [address] [facility] [address] [place] [address] documented as of this encounter Goals Goal Patient Goal Type Associated Problems Recent Progress Patient-Stated? Author Blood Pressure < 140/90 Blood Pressure 96/68(2023 2:34 PM MASTER MERCHANDISER) Rere Vargas Note: Caring for Your High [...] Where can I go for more information? Greek Heart Association National Center: http://www.americanheart.org 1. In the top header, click ? Conditions? . 2. In the top header, click ? high blood pressure.? 3. For a printable blood pressure tracker, scroll toward the bottom of the page to Related Tools, and click ? HBP Trackers.? 3-378-NPM-USA- or ( ) National Heart, Lung and Blood [place]: http://www.nhlbi.nih.gov/health/infoctr/index.htm Blood Pressure < 140/90 Blood Pressure 96/68(2023 2:34 PM MASTER MERCHANDISER) No Rere Kaufman Note: Caring for Your [...] Where can I go for more information? Greek Heart Association National Center: http://www.americanheart.org 1. In the top header, click ? Conditions? . 2. In the top header, click ? high blood pressure.? 3. For a printable blood pressure tracker, scroll toward the bottom of the page to Related Tools, and click ? HBP Trackers.? 9-848-NDQ-USA-1 or ( ) National Heart, Lung and Blood [place]: http://www.nhlbi.nih.gov/health/infoctr/index.htm Blood Pressure < 140/90 Blood Pressure 96/68(2023 2:34 PM MASTER MERCHANDISER) No Cassie Marie Note: Caring for Your [...] Where can I go for more information? Greek Heart Association National Center: http://www.americanheart.org 1. In the top header, click ? Conditions? . 2. In the top header, click ? high blood pressure.? 3. For a printable blood pressure tracker, scroll toward the bottom of the page to Related Tools, and click ? HBP Trackers.? 4-733-YDC-USA-1 or ( ) National Heart, Lung and Blood [place]: http://www.nhlbi.nih.gov/health/infoctr/index.htm Exercise 5X per week (30 min per time) Exercise Rere Vargas Note: The Greek College of Sports Medicine recommends all adults [...] how to manage your diabetes: ? ? Greek Diabetes Association: www.diabetes.org 2-860-VWGGVXRI ( ) ? ? Greek Diabetes Association-Support group line: www.professional.diabetes.org ? ? Greek Heart Association: www.heart.org or 8-564-FZN-USA-1 ( ) [employer] MyPlate: www.Huixiaoermyplate.gov Have labs drawn Lifestyle Rere Vargas Note: [...] filedocumented in this encounter Care Teams Lead Cargo Mover Relationship Specialty Start Date End Date Rosana Solo MD [address] [facility] [address] [place] [address] PCP - Attributed-[facility] 02/19/19 [place] [address] [facility] [address] [place] [address] Ophthalmology 04/06/16 documented as of this encounter
--- OUTSIDE RECORDS SUMMARY | 2024-04-03 02:27 | XMS_ITS | Encounter Summary ---
Author Organization [facility] Address [address] [facility] [place] [address] Care Team Providers Care Political Analyst Name Role Phone Ricco Andrew MD Unavailable [phone] Rosana Solo MD Unavailable [phone] Encounter Details Date Type Department Care [...] Contact Info) Description 04/07/2024 10:00 AM SUPERVISOR ADVICE Office Visit [facility] - Family Medicine [address] [facility] [address] [place], [place] [phone] Evelin Blanco, CROWNING HAMMER OPERATOR-FUSE CUP EXPANDER [address] [facility] [address] [place] [address] 06/06/2024 2:00 PM CDT Office Visit [facility] Family Medicine [address] [facility] [address] [place] [address] [place] [address] [facility] [address] T[address] [place] [address] documented as of this encounter Goals Goal Patient Goal Type Associated Problems Recent Progress Patient-Stated? Author Blood Pressure < 140/90 Blood Pressure 96/68(2023 2:34 PM SUPERVISOR ADVICE) Rere Vargas Note: Caring for Your High [...] Related Tools, and click ? HBP Trackers.? 9-759-LCQ-USA- or ( ) National Heart, Lung and Blood [place]: http://www.nhlbi.nih.gov/health/infoctr/index.htm Blood Pressure < 140/90 Blood Pressure 96/68(2023 2:34 PM SUPERVISOR ADVICE) No Rere Kaufman Note: Caring for Your [...] Related Tools, and click ? HBP Trackers.? 8-923-NZA-USA-1 or ( ) National Heart, Lung and Blood [place]: http://www.nhlbi.nih.gov/health/infoctr/index.htm Blood Pressure < 140/90 Blood Pressure 96/68(2023 2:34 PM SUPERVISOR ADVICE) No Cassie Marie Note: Caring for Your [...] Related Tools, and click ? HBP Trackers.? 3-409-WLP-USA-1 or ( ) National Heart, Lung and Blood [place]: http://www.nhlbi.nih.gov/health/infoctr/index.htm Exercise 5X per week (30 min per time) Exercise Rree Vargas Note: The Filipino College of Sports Medicine [...] diabetes: ? ? Filipino Diabetes Association: www.diabetes.org 3-669-QZZYBGHQ ( ) ? ? Filipino Diabetes Association-Support group line: www.professional.diabetes.org ? ? Filipino Heart Association: www.heart.org or 0-455-VCE-USA-1 ( ) [place] MyPlate: www.Rontal Applicationsmyplate.gov Have labs drawn Lifestyle Rere Vargas Note: [...] on filedocumented in this encounter Care Teams Political Analyst Relationship Specialty Start Date End Date Rosana Solo MD [address] [facility] [address] [place] [address] PCP - Attributed-[facility] 02/19/19 [place] [address] [facility] [address] [place] [address] Ophthalmology 04/06/16 documented as of this encounter
--- OUTSIDE RECORDS SUMMARY | 2024-04-03 02:27 | XMS_ITS | Encounter Summary ---
Author Organization [facility] Address [address] [place] [address] Care Team Providers Care Sewing Teacher Name Role Phone Ricco Andrew MD Unavailable [phone] Rosana Solo MD Unavailable [phone] Reason for Visit * Reason Onset Date Comments Outreach Preventive Care 06/01/2019 Encounter Details Date Type Department Care Team (Late st Contact Info) Description 06/01/2019 Patient Outreach [facility] - Care Coordination [address] [place], [place] [address] [address] Cyn Cardona Outreach Preventive Care [...] st Contact Info) Description 04/07/2024 10:00 AM CARPENTER ROUGH [facility] [phone] [place] [address] [address] [place] [address] Evelin Blanco, CORE JAVA ENGINEER-WASTEWATER TREATMENT ENGINEER [address] [facility] [address] [place] [address] 06/06/2024 2:00 PM CDT Office [facility] [phone] [place] [address] [address] [place] [address] [place] [id number] [place] [address] [address] T[address] [place] [address] documented as of this encounter Goals Goal Patient Goal Type Associated Problems Recent Progress Patient-Stated? Author Blood Pressure < 140/90 Blood Pressure 96/68(2023 2:34 PM CARPENTER ROUGH) Reer Vargas Note: Caring for Your High Blood [...] Related Tools, and click ? HBP Trackers.? 6-730-WEF-USA-1 or ( ) National Heart, Lung and Blood [place]: http://www.nhlbi.nih.gov/health/infoctr/index.htm Blood Pressure < 140/90 Blood Pressure 96/68(2023 2:34 PM CARPENTER ROUGH) Rere Vargas Note: Caring for Your High [...] Related Tools, and click ? HBP Trackers.? 8-988-BII-USA-1 or ( ) National Heart, Lung and Blood [place]: http://www.nhlbi.nih.gov/health/infoctr/index.htm Blood Pressure < 140/90 Blood Pressure 96/68(2023 2:34 PM CARPENTER ROUGH) Cassie Parks Note: Caring for Your High [...] Related Tools, and click ? HBP Trackers.? 8-191-IGI-USA-1 or ( ) National Heart, Lung and Blood [place]: http://www.nhlbi.nih.gov/health/infoctr/index.htm Exercise 5X per week (30 min per time) Exercise No Rere Kaufman Note: The Romanian College of Sports Medicine [...] diabetes: ? ? Romanian Diabetes Association: www.diabetes.org 4-230-ZXDZDUFO ( ) ? ? Romanian Diabetes Association-Support group line: www.professional.diabetes.org ? ? Romanian Heart Association: www.heart.org or 5-520-HKG-USA-1 ( ) [employer] MyPlate: www.happyviewmyplate.gov Have labs drawn Lifestyle Rere Vargas Note: [...] on filedocumented in this encounter Care Teams Sewing Teacher Relationship Specialty Start Date End Date Rosana Solo MD [address] [facility] [address] [place] [phone] PCP - Attributed-[facility] 02/19/19 [place] [address] [facility] [address] [place] [phone] Ophthalmology 04/06/16 documented as of this encounter
--- OUTSIDE RECORDS SUMMARY | 2024-04-03 02:27 | XMS_ITS | Encounter Summary ---
Author Organization [facility] Address [address] [place] [address] Care Team Providers Care Supply Specialist Name Role Phone Ricco Andrew MD Unavailable [phone] Rosana Solo MD Unavailable Reason for Visit * Reason Comments Refill Request Encounter Details Date Type Department Care Team (Late st Contact Info) Description 01/03/[address] [facility] Medical [facility] - Family Medicine [address] [place], [place] [phone] Rosana Solo MD [address] [place] [address] Refill Request Social History Tobacco Use [...] st Contact Info) Description 04/07/2024 10:00 AM HAIRSPRING STUDDER Office Visit [facility] [id number] [place] [address] [address] [place] [address] Evelin Blanco APRN-DENIS [address] [facility] [address] [place] [address] 06/06/2024 2:00 PM CDT Office Visit [facility] [id number] [place] [address] [address] [place], [place] [phone] Chris Aden [place] [id number] [place] [phone] documented as of this encounter Goals Goal Patient Goal Type Associated Problems Recent Progress Patient-Stated? Author Blood Pressure < 140/90 Blood Pressure 96/68(2023 2:34 PM HAIRSPRING STUDDER) Rere Vargas Note: Caring for Your High [...] Where can I go for more information? Chinese Heart Association National Center: http://www.americanheart.org 1. In the top header, click ? Conditions? . 2. In the top header, click ? high blood pressure.? 3. For a printable blood pressure tracker, scroll toward the bottom of the page to Related Tools, and click ? HBP Trackers.? 3-833-SIU-USA-1 or ( ) National Heart, Lung and Blood [place]: http://www.nhlbi.nih.gov/health/infoctr/index.htm Blood Pressure < 140/90 Blood Pressure 96/68(2023 2:34 PM HAIRSPRING STUDDER) Rere Vargas Note: Caring for Your High [...] Where can I go for more information? Chinese Heart Association National Center: http://www.americanheart.org 1. In the top header, click ? Conditions? . 2. In the top header, click ? high blood pressure.? 3. For a printable blood pressure tracker, scroll toward the bottom of the page to Related Tools, and click ? HBP Trackers.? 2-832-FHO-USA-1 or ( ) National Heart, Lung and Blood [place]: http://www.nhlbi.nih.gov/health/infoctr/index.htm Blood Pressure < 140/90 Blood Pressure 96/68(2023 2:34 PM HAIRSPRING STUDDER) Cassie Parks Note: Caring for Your High [...] Where can I go for more information? Chinese Heart Association National Center: http://www.americanheart.org 1. In the top header, click ? Conditions? . 2. In the top header, click ? high blood pressure.? 3. For a printable blood pressure tracker, scroll toward the bottom of the page to Related Tools, and click ? HBP Trackers.? 7-394-ISU-USA-1 or ( ) National Heart, Lung and Blood [place]: http://www.nhlbi.nih.gov/health/infoctr/index.htm Exercise 5X per week (30 min per time) Exercise Rere Vargas Note: The Chinese College of Sports Medicine recommends all adults [...] how to manage your diabetes: ? ? Chinese Diabetes Association: www.diabetes.org 8-035-CBVWGUQJ ( ) ? ? Chinese Diabetes Association-Support group line: www.professional.diabetes.org ? ? Chinese Heart Association: www.heart.org or 4-438-JUZ-USA-1 ( ) [employer] MyPlate: www.SportsHedgemyplate.gov Have labs drawn Lifestyle Rere Vargas Note: [...] on filedocumented in this encounter Care Teams Supply Specialist Relationship Specialty Start Date End Date Rosana Solo MD [address] [facility] [address] [place] [address] PCP - Attributed-[facility] 02/19/19 [place] [address] [facility] [address] [place] [address] Ophthalmology 04/06/16 documented as of this encounter
--- OUTSIDE RECORDS SUMMARY | 2024-04-03 02:27 | XMS_ITS | Encounter Summary ---
Author Organization [facility] Address [address] [facility] [place] [address] Care Team Providers Care Ad Operations Associate Name Role Phone Ricco Andrew MD Unavailable [phone] Reason for Visit * Reason Comments Medication Check Encounter Details Date Type Department Care Team (Late st Contact Info) Description 08/29/2018 2:00 PM CDT Office Visit [facility] - Family Medicine [address] [place], [place] [phone] Rosana Solo MD [address] [facility] [address] [place] [address] Type 2 diabetes mellitus with diabetic neuropathy, unspecified whether correction insulin use (HCC) (Primary Dx); Type 2 diabetes mellitus with stage 3 chronic kidney disease, unspecified whether supervisor estimator and drafter insulin use; Benign hypertension with chronic kidney [...] Diabetes ?? Get labs done today at [facility] Directions to [facility]: [facility] is located on the 1st floor of this building. Please take the elevators down to the lobby.As soon as you exit the elevator, take an immediate left out of the elevators and then go left downthe first hallway. [facility] is located in [address] on the left side just past the restrooms. ?? They orders have been transmitted electronically, so the should have them. ? Follow a diabetic diet with healthy meals that are low salt, low fat, high fiber. For more information on a diabetic diet, please go to the [place] Diabetes Association website at www.diabetes.org and select [...] minutes if trying to lose weight) The [place] College of Sports Medicine recommends all adults [...] Still struggles, but not really much worse. 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 Mood ok [...] diabetes mellitus with diabetic neuropathy, unspecified whether supervisor estimator and drafter insulin use - control fair. Can tolerate Hgb A1c goal of <7.5 given age/dementia. Dm edu. Dm diet, healthy lifestyle rec. - Plan: DIABETES FOOT EXAM, HEMOGLOBIN A1C, COMPREHENSIVE METABOLIC PANEL Type 2 diabetes mellitus with stage 3 chronic kidney disease, unspecified whether supervisor estimator and drafter insulinuse - monitor - Plan: DIABETES FOOT [...] st Contact Info) Description 04/07/2024 10:00 AM LIGHT AIR DEFENSE ARTILLERY CREWMEMBER Office Visit [facility] [address] [facility] [address] [place], [place] [phone] Evelin Blanco, COMPLIANCE PARALEGAL-MAIL SORTER AND DELIVERY [address] [facility] [address] [place] [address] 06/06/2024 2:00 PM CDT Office Visit [facility] [address] [facility] [address] [place] [address] [place] [address] [facility] [address] [place] [address] documented as of this encounter Goals Goal Patient Goal Type Associated Problems Recent Progress Patient-Stated? Author Blood Pressure < 140/90 Blood Pressure 96/68(2023 2:34 PM LIGHT AIR DEFENSE ARTILLERY CREWMEMBER) Rere Vargas Note: Caring for Your High [...] I go for more information? [place] Heart Association National Center: http://www.americanheart.org 1. In the top header, click ? Conditions? . 2. In the top header, click ? high blood pressure.? 3. For a printable blood pressure tracker, scroll toward the bottom of the page to Related Tools, and click ? HBP Trackers.? 6-308-NAA-USA-1 or ( ) National Heart, Lung and Blood [place]: http://www.nhlbi.nih.gov/health/infoctr/index.htm Blood Pressure < 140/90 Blood Pressure 96/68(2023 2:34 PM LIGHT AIR DEFENSE ARTILLERY CREWMEMBER) Rere Vargas Note: Caring for Your High [...] I go for more information? [place] Heart Association National Center: http://www.americanheart.org 1. In the top header, click ? Conditions? . 2. In the top header, click ? high blood pressure.? 3. For a printable blood pressure tracker, scroll toward the bottom of the page to Related Tools, and click ? HBP Trackers.? 1-214-JBW-USA-1 or ( ) National Heart, Lung and Blood [place]: http://www.nhlbi.nih.gov/health/infoctr/index.htm Exercise 5X per week (30 min per time) Exercise Rere Vargas Note: The [place] College of Sports Medicine recommends all adults [...] manage your diabetes: ? ? [place] Diabetes Association: www.diabetes.org 3-288-MWJFOMWQ ( ) ? ? [place] Diabetes Association-Support group line: www.professional.diabetes.org ? ? [place] Heart Association: www.heart.org or 1-120-UUG-USA-1 ( ) [employer] MyPlate: www.Unitrio Technologymyplate.gov Have labs drawn Lifestyle No Rere [...] diabetes mellitus with diabetic neuropathy, unspecified whether supervisor estimator and drafter insulin use (HCC) Type 2 diabetes mellitus with stage 3 chronic kidney disease, unspecified whether supervisor estimator and drafter insulin use COMPREHENSIVE METABOLIC PANEL Routine 08/29/2018 2:32 PM CDT Type 2 diabetes mellitus with diabetic neuropathy, unspecified whether supervisor estimator and drafter insulin use (HCC) Type 2 diabetes mellitus with stage 3 chronic kidney disease, unspecified whether correction insulin use Benign hypertension with chronic kidney [...] Resulting Agency Comment Lab Testing performed at: [place] [address] [address] ?? [facility] [id number] Rosana Solo MD LAB - CHEMISTRY MELYSSA CHAHAL [facility] ACCOUNT BILL [address] [place] [address] * (ABNORMAL) COMPREHENSIVE METABOLIC PANEL (08/29/2018 2:32 [...] Resulting Agency Comment Lab Testing performed at: [address] ?? [place] [id number] Rosana Solo MD LAB - CHEMISTRY MELYSSA CHAHAL [facility] ACCOUNT BILL [address] [place] [address] * (ABNORMAL) HEMOGLOBIN A1C (08/29/2018 2:32 PM CDT) Hemoglobin A1c 7.4(H) 4.0 - 6.1 % [facility] ACCOUNT BILL Comment: AVERAGE GLUCOSE MG/DL BLOOD ??166 ?mg/dL Attention clinician: ??Reference Range has changed. Blood BLOOD SPECIMEN / Unknown 08/29/2018 2:32 PM CDT 08/29/2018 Narrative Resulting Agency Comment Lab Testing performed at: [facility] [address] [facility] [id number] Rosana Solo MD LAB - CHEMISTRY MELYSSA CHAHAL [facility] ACCOUNT BILL [address] [place] [address] documented in this encounter Visit Diagnoses Diagnosis Type 2 diabetes mellitus with diabetic neuropathy, unspecified whether supervisor estimator and drafter insulin use (HCC)- Primary Type 2 diabetes mellitus with stage 3 chronic kidney disease, unspecified whether supervisor estimator and drafter insulin use (HCC) Benign hypertension with chronic kidney disease Hypothyroidism, adult Other specified acquired hypothyroidism Onychomycosis Dermatophytosis of nail Alzheimer's dementia without behavioral disturbance, unspecified timing of dementia onset (HCC) documented in this encounter Care Teams Ad Operations Associate Relationship Specialty [place] [address] [facility] [address] [place] [phone] Ophthalmology 04/06/16 documented as of this encounter
--- OUTSIDE RECORDS SUMMARY | 2024-04-03 02:27 | XMS_ITS | Encounter Summary ---
Author Organization [facility] Address [address] [facility] [place] [address] Care Team Providers Care Flat Sheet Maker Name Role Phone Ricco Andrew MD Unavailable Rosana Solo MD Unavailable [phone] Reason for Visit * Reason Onset Date Comments Question 05/10/2020 Encounter Details Date Type Department Care Team (Late st Contact Info) Description 05/10/2020 Telephone [facility] Medical [facility] - Family Medicine [address] [place] [address] Rosana Solo MD [facility] [address] [address] Question Social History Tobacco Use [...] daughter would rather discuss information with Colette. OR INVESTIGATOR documented in this encounter Plan of Treatment Upcoming Encounters Date Type Department Care Team (Late st Contact Info) Description 04/07/2024 10:00 AM SENIOR INVESTIGATOR Office Visit [facility] [address] [facility] [address] [place], [place] [phone] Evelin Blanco APRN-CNP [address] [facility] [address] [place] [address] 06/06/2024 2:00 PM CDT Office Visit [facility] [address] [facility] [address] [place] [address] [place] [address] [facility] [address] [place] [address] documented as of this encounter Goals Goal Patient Goal Type Associated Problems Recent Progress Patient-Stated? Author Blood Pressure < 140/90 Blood Pressure 96/68(2023 2:34 PM SENIOR INVESTIGATOR) Rere Vargas Note: Caring for Your [...] Related Tools, and click ? HBP Trackers.? 9-669-IYJ-USA-1 or ( ) National Heart, Lung and Blood [place]: http://www.nhlbi.nih.gov/health/infoctr/index.htm Blood Pressure < 140/90 Blood Pressure 96/68(2023 2:34 PM SENIOR INVESTIGATOR) Rere Vargas Note: Caring for Your [...] Related Tools, and click ? HBP Trackers.? 2-933-ZCZ-USA- or ( ) National Heart, Lung and Blood [place]: http://www.nhlbi.nih.gov/health/infoctr/index.htm Blood Pressure < 140/90 Blood Pressure 96/68(2023 2:34 PM SENIOR INVESTIGATOR) Cassie Parks Note: Caring for Your [...] Related Tools, and click ? HBP Trackers.? 8-158-TGG-USA- or ( ) National Heart, Lung and Blood [place]: http://www.nhlbi.nih.gov/health/infoctr/index.htm Exercise 5X per week (30 min [...] diabetes: ? ? [place] Diabetes Association: www.diabetes.org 4-549-LEFJFHRQ ( ) ? ? Bh[place]anese Diabetes Association-Support group line: www.professional.diabetes.org ? ? [place] Heart Association: www.heart.org or 6-779-VPZ-USA-1 ( ) [place] MyPlate: www.Sway Medicalmyplate.gov Have labs drawn Lifestyle Rere Vargas [...] on filedocumented in this encounter Care Teams Flat Sheet Maker Relationship Specialty Start Date End Date Rosana Solo MD [address] [facility] [address] [place] [address] PCP - Attributed-[facility] 02/19/19 [place] [address] [facility] [address] [place] [address] Ophthalmology 04/06/16 documented as of this encounter
--- OUTSIDE RECORDS SUMMARY | 2024-04-03 02:27 | XMS_ITS | Encounter Summary ---
Author Organization [facility] Address [address] [facility] [place] [address] Care Team Providers Care Cost Accounting Clerk Name Role Phone Ricco Andrew MD Unavailable Rosana Solo MD Unavailable [phone] Reason for Visit * Reason Onset Date Comments Patient Requested Call 09/06/2020 Blood Pressure 09/06/2020 Question 09/06/2020 Encounter Details Date Type Department Care Team (Late st Contact Info) Description 09/06/2020 Telephone [facility] - Family Medicine [address] [place] [address] Rosana Solo MD [address] [address] Patient Requested Call; Blood Pressure; [...] st Contact Info) Description 04/07/2024 10:00 AM HELIOTHERAPIST Office Visit [facility] - Family Medicine [address] [facility] [address] [place] [address] Evelin Blanco, ETHYLENE OXIDE PANELBOARD OPERATOR-BLADE CHANGER [address] [facility] [address] [place] [address] 06/06/2024 2:00 PM CDT Office Visit [facility] Family Medicine [address] [facility] [address] [place] [address] [place] [address] [facility] [address] [place] [address] [place] [phone] documented as of this encounter Goals Goal Patient Goal Type Associated Problems Recent Progress Patient-Stated? Author Blood Pressure < 140/90 Blood Pressure 96/68(2023 2:34 PM HELIOTHERAPIST) Rere Vargas Note: Caring for Your High [...] Related Tools, and click ? HBP Trackers.? 4-830-HCP-USA- or ( ) National Heart, Lung and Blood [place]: http://www.nhlbi.nih.gov/health/infoctr/index.htm Blood Pressure < 140/90 Blood Pressure 96/68(2023 2:34 PM HELIOTHERAPIST) No Rere Kaufman Note: Caring for Your [...] Related Tools, and click ? HBP Trackers.? 3-142-QQF-USA-1 or ( ) National Heart, Lung and Blood [place]: http://www.nhlbi.nih.gov/health/infoctr/index.htm Blood Pressure < 140/90 Blood Pressure 96/68(2023 2:34 PM HELIOTHERAPIST) No Cassie Marie Note: Caring for Your [...] Related Tools, and click ? HBP Trackers.? 3-454-NQF-USA-1 or ( ) National Heart, Lung and Blood [place]: http://www.nhlbi.nih.gov/health/infoctr/index.htm Exercise 5X per week (30 min [...] diabetes: ? ? [place] Diabetes Association: www.diabetes.org 4-854-WWQADLJU ( ) ? ? [place]ese Diabetes Association-Support group line: www.professional.diabetes.org ? ? [place]ese Heart Association: www.heart.org or 9-678-DZZ-USA-1 ( ) Aptidata MyPlate: www.Ziklag Systemsmyplate.gov Have labs drawn Lifestyle Rere Vargas [...] substances that can build up in the craranza of your arteries. This can increase your [...] on filedocumented in this encounter Care Teams Cost Accounting Clerk Relationship Specialty Start Date End Date Rosana Solo MD [address] [facility] [address] [place] [phone] PCP - Attributed-[facility] 02/19/19 [place] [address] [facility] [address] [place] [address] Ophthalmology 04/06/16 documented as of this encounter
--- OUTSIDE RECORDS SUMMARY | 2024-04-03 02:27 | XMS_ITS | Encounter Summary ---
Author Organization [facility] Address [address] [facility] [place] [address] Care Team Providers Care Supervisor Education Name Role Phone Ricco Andrew MD Unavailable Rosana Solo MD Unavailable [phone] Reason for Visit * Reason Comments Diabetic Foot Care DM chek/FEI w PCP Encounter Details Date Type Department Care Team (Latest Contact Info) Description 03/28/2020 2:40 PM THERMAL CUTTER HELPER Office Visit [facility] - Podiatry [address] [facility] [address] [place] [address] Fawn Ramon [facility] [address] [address] Type 2 diabetes mellitus with [...] COVID-19? No / Unsure 03/28/2020 4:14 PM THERMAL CUTTER HELPER documented as of this encounter Last Filed Vital Signs Vital Sign Reading Time Taken Comments Blood Pressure 122/70 03/28/2020 3:03 PM THERMAL CUTTER HELPER Pulse 78 03/28/2020 3:03 PM THERMAL CUTTER HELPER Temperature - - Respiratory Rate - - Oxygen Saturation - - Inhaled Oxygen Concentration - - Weight 77.1 kg (170 lb) 03/28/2020 3:03 PM THERMAL CUTTER HELPER Height 175.3 cm (5' 9) 03/28/2020 3:03 PM THERMAL CUTTER HELPER Body Mass Index 25.1 03/28/2020 3:03 PM THERMAL CUTTER HELPER documented in this encounter Patient Instructions * Patient Instructions* Fawn Ramon DPM - 03/28/2020 4:09 PM THERMAL CUTTER HELPER Images from the original note were not [...] refuse treatment. The above information is an environmental services aide only. It is not intended as medical advice for individual conditions or treatments. Talk to your doctor, nurse or pharmacist before following any medical regimen to see if it is safe and effective for you. ?? Copyright [employer] 2020 Information is for End User's use only and may not be sold, redistributed or otherwise used for commercial purposes. All illustrations and images included in CareNotes?? are the copyrighted property of [employer] or [employer] Patient Education Diabetic Peripheral Neuropathy WHAT YOU [...] refuse treatment. The above information is an environmental services aide only. It is not intended as medical advice for individual conditions or treatments. Talk to your doctor, nurse or pharmacist before following any medical regimen to see if it is safe and effective for you. ?? Copyright [employer] 2020 Information is for End User's use only and may not be sold, redistributed or otherwise used for commercial purposes. All illustrations and images included in CareNotes?? are the copyrighted property of [employer] or [employer] MAL CUTTER HELPER documented in this encounter Progress Notes * [...] Onycholysis Treatment: Orders Placed This Encounter ??? NM REMOVAL OF NAIL PLATE Total ??? NM REMOVE ADDITIONAL NAIL PLATE Total ??? NM DEBRIDEMENT OF NAILS, 6 OR MORE - [...] up in 6 months unless needed sooner. MAL CUTTER HELPER documented in this encounter Plan of Treatment Upcoming Encounters Date Type Department Care Team (Late st Contact Info) Description 04/07/2024 10:00 AM THERMAL CUTTER HELPER Office Visit [facility] - Family Medicine [address] [facility] [address] [place] [address] Evelin Blanco, JOSETTE-SHEARING SUPERVISOR [address] [facility] [address] [place], [place] [phone] 06/06/2024 2:00 PM CDT Office Visit [facility] Family Medicine [address] [facility] [address] [place] [address] [place] [address] [facility] [address] [place] [phone] documented as of this encounter Goals Goal Patient Goal Type Associated Problems Recent Progress Patient-Stated? Author Blood Pressure < 140/90 Blood Pressure 96/68(2023 2:34 PM THERMAL CUTTER HELPER) Rere Vargas Note: Caring for Your [...] Related Tools, and click ? HBP Trackers.? 6-543-VJQ-USA- or ( ) National Heart, Lung and Blood [place]: http://www.nhlbi.nih.gov/health/infoctr/index.htm Blood Pressure < 140/90 Blood Pressure 96/68(2023 2:34 PM THERMAL CUTTER HELPER) Rere Vargas Note: Caring for Your [...] Related Tools, and click ? HBP Trackers.? 0-309-IDR-USA-1 or ( ) National Heart, Lung and Blood [place]: http://www.nhlbi.nih.gov/health/infoctr/index.htm Blood Pressure < 140/90 Blood Pressure 96/68(2023 2:34 PM THERMAL CUTTER HELPER) No Cassie Marie Note: Caring for Your [...] Related Tools, and click ? HBP Trackers.? 0-095-HAL-USA-1 or ( ) National Heart, Lung and Blood [place]: http://www.nhlbi.nih.gov/health/infoctr/index.htm Exercise 5X per week (30 min [...] diabetes: ? ? [place] Diabetes Association: www.diabetes.org 7-637-MVIXLPJL ( ) ? ? [place] Diabetes Association-Support group line: www.professional.diabetes.org ? ? [place] Heart Association: www.heart.org or 8-989-ZVZ-USA-1 ( ) Red's All natural MyPlate: www.BitMethodmyplate.gov Have labs drawn Lifestyle Rere Vargas Note: [...] nail documented in this encounter Care Teams Supervisor Education Relationship Specialty Start Date End Date Rosana Solo MD [address] [facility] [address] [place] [address] PCP - Attributed-[facility] 02/19/19 [place] [address] [facility] [address] [place] [address] Ophthalmology 04/06/16 documented as of this encounter
--- OUTSIDE RECORDS SUMMARY | 2024-04-03 02:27 | XMS_ITS | Encounter Summary ---
Author Organization [facility] Address [address] [facility] [place] [address] Care Team Providers Care Police Justice Name Role Phone Ricco Andrew MD Unavailable [phone] Rosana Solo MD Unavailable [phone] Reason for Visit * Reason Comments Follow-up Diabetes Encounter Details Date Type Department Care Team (Late st Contact Info) Description 09/02/2020 1:45 PM CDT Office Visit [facility] - Family Medicine [address] [place] [address] Rosana Solo MD [facility] [address] [address] Type 2 diabetes mellitus with [...] * Patient Instructions* Rosana Solo MD - 09/02/2020 2:30 PM CDT [...] a diabetic diet, please go to the Syrian Diabetes Association website at www.diabetes.org and select [...] minutes if trying to lose weight) The [place] College of Sports Medicine recommends all adults [...] - on Namenda. Primarily short-term impairment. . 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 Still likes to sleep. [...] st Contact Info) Description 04/07/2024 10:00 AM LENS CEMENTER Office Visit [facility] [id number] [place] [address] [address] [place] [address] Evelin Blanco, BELT KNIFE FEEDER-INSULATION CUPOLA OPERATOR [phone] [place] [phone] 06/06/2024 2:00 PM CDT Office Visit [address] [phone] [place] [id number] [place] [phone] Scheduled Orders Name Type Priority Associated Diagnoses Orde r Schedule HEMOGLOBIN A1C W EAG Lab Routine Type 2 diabetes mellitus with diabetic neuropathy, without long-term current use of insulin ([facility]) Type 2 diabetes mellitus with stage 3a chronic kidney disease, without long-term current use of insulin ([facility]) Ordered: 09/02/2020 COMPREHENSIVE METABOLIC PANEL Lab Routine Stage 3a chronic kidney disease ([facility]) Type 2 diabetes mellitus with diabetic neuropathy, without long-term current use of insulin ([facility]) Type 2 diabetes mellitus with stage 3a chronic kidney disease, without long-term current use of insulin ([facility]) Ordered: 09/02/2020 CBC WITH DIFFERENTIAL [...] < 140/90 Blood Pressure 96/68(2023 2:34 PM LENS CEMENTER) Rere Vargas Note: Caring for Your High [...] Where can I go for more information? Syrian Heart Association National Center: http://www.americanheart.org 1. In the top header, click ? Conditions? . 2. In the top header, click ? high blood pressure.? 3. For a printable blood pressure tracker, scroll toward the bottom of the page to Related Tools, and click ? HBP Trackers.? 7-518-DZA-USA-1 or ( ) National Heart, Lung and Blood [place]: http://www.nhlbi.nih.gov/health/infoctr/index.htm Blood Pressure < 140/90 Blood Pressure 96/68(2023 2:34 PM LENS CEMENTER) Rere Vargas Note: Caring for Your High [...] Where can I go for more information? Syrian Heart Association National Center: http://www.americanheart.org 1. In the top header, click ? Conditions? . 2. In the top header, click ? high blood pressure.? 3. For a printable blood pressure tracker, scroll toward the bottom of the page to Related Tools, and click ? HBP Trackers.? 8-401-JGX-USA-1 or ( ) National Heart, Lung and Blood [place]: http://www.nhlbi.nih.gov/health/infoctr/index.htm Blood Pressure < 140/90 Blood Pressure 96/68(2023 2:34 PM LENS CEMENTER) Cassie Parks Note: Caring for Your High [...] Where can I go for more information? Syrian Heart Association National Center: http://www.americanheart.org 1. In the top header, click ? Conditions? . 2. In the top header, click ? high blood pressure.? 3. For a printable blood pressure tracker, scroll toward the bottom of the page to Related Tools, and click ? HBP Trackers.? 0-995-RMD-USA-1 or ( ) National Heart, Lung and Blood [place]: http://www.nhlbi.nih.gov/health/infoctr/index.htm Exercise 5X per week (30 min per time) Exercise Rere Vargas Note: The [place] College of Sports Medicine recommends all adults [...] how to manage your diabetes: ? ? [place] Diabetes Association: www.diabetes.org 9-573-UGBYEWHS ( ) ? ? [place] Diabetes Association-Support group line: www.professional.diabetes.org ? ? [place] Heart Association: www.heart.org or 0-125-BHI-USA-1 ( ) USDA MyPlate: www.choosemyplate.gov Have labs [...] disorder documented in this encounter Care Teams Police Justice Relationship Specialty Start Date End Date Rosana Solo MD [address] [facility] [address] [place] [address] PCP - Attributed-[facility] 02/19/19 [place] [address] [facility] [address] [place] [phone] Ophthalmology 04/06/16 documented as of this encounter
--- OUTSIDE RECORDS SUMMARY | 2024-04-03 02:27 | XMS_ITS | Encounter Summary ---
Author Organization [facility] Address [address] [facility] [place] [address] Care Team Providers Care Plaster Tender Name Role Phone Ricco Andrew MD Unavailable [phone] Rosana Solo MD Unavailable [phone] Reason for Visit * Reason Comments Refill Request Encounter Details Date Type Department Care Team (Late st Contact Info) Description 04/17/2019 Refill [facility] - Family Medicine [address] [place], [place] [phone] Rosana Solo MD [address] [place] [phone] Refill Request Social History Tobacco Use [...] Last seen: 02/28/2019 Future appointment : 08/30/2019 ANALYST documented in this encounter Plan of Treatment Upcoming Encounters Date Type Department Care Team (Late st Contact Info) Description 04/07/2024 10:00 AM INFO ANALYST Office Visit [facility] [address] [facility] [address] [place] [address] Evelin Blanco APRN-CNP [address] [facility] [address] [place] [address] 06/06/2024 2:00 PM CDT Office Visit [facility] [address] [facility] [address] [place] [address] [place] [address] [facility] [address] [place] [address] documented as of this encounter Goals Goal Patient Goal Type Associated Problems Recent Progress Patient-Stated? Author Blood Pressure < 140/90 Blood Pressure 96/68(2023 2:34 PM INFO ANALYST) Rere Vargas Note: Caring for Your [...] Related Tools, and click ? HBP Trackers.? 8-161-KTI-USA-1 or ( ) National Heart, Lung and Blood [place]: http://www.nhlbi.nih.gov/health/infoctr/index.htm Blood Pressure < 140/90 Blood Pressure 96/68(2023 2:34 PM INFO ANALYST) Rere Vargas Note: Caring for Your [...] Related Tools, and click ? HBP Trackers.? 5-223-BAS-USA-1 or ( ) National Heart, Lung and Blood [place]: http://www.nhlbi.nih.gov/health/infoctr/index.htm Blood Pressure < 140/90 Blood Pressure 96/68(2023 2:34 PM INFO ANALYST) Cassie Parks Note: Caring for Your [...] Related Tools, and click ? HBP Trackers.? 0-185-RRJ-USA-1 or ( ) National Heart, Lung and Blood [place]: http://www.nhlbi.nih.gov/health/infoctr/index.htm Exercise 5X per week (30 min [...] diabetes: ? ? [place] Diabetes Association: www.diabetes.org 6-849-XHZPVRMF ( ) ? ? [place] Diabetes Association-Support group line: www.professional.diabetes.org ? ? [place] Heart Association: www.heart.org or 3-688-RYP-USA-1 ( ) BringMeThat MyPlate: www.Cutting Edge Informationmyplate.gov Have labs drawn Lifestyle Rere Vargas Note: [...] on filedocumented in this encounter Care Teams Plaster Tender Relationship Specialty Start Date End Date Rosana Solo MD [address] [address] [place] [phone] PCP - Attributed-[facility] 02/19/19 [place] [address] [facility] [address] [place] [address] Ophthalmology 04/06/16 documented as of this encounter
--- OUTSIDE RECORDS SUMMARY | 2024-04-03 02:27 | XMS_ITS | Encounter Summary ---
Author Organization [facility] Address [address] [facility] [place] [address] Care Team Providers Care Optical Designer Name Role Phone Ricco Andrew MD Unavailable [phone] Rosana Solo MD Unavailable [phone] Reason for Visit * Reason Comments Refill Request Encounter Details Date Type Department Care Team (Late Contact Info) Description 07/22/2019 Refill [facility] [address] [facility] [address] [place] [address] Rosana Solo MD [facility] [address] [phone] Refill Request Social History Tobacco [...] (Late Contact Info) Description 04/07/2024 10:00 AM CONVERTER SUPERVISOR Office Visit [facility] [address] [facility] [address] [place] [address] Buwalda, NIKITA Waters [address] [facility] [address] [place] [address] 06/06/2024 2:00 PM CDT Office Visit [facility] Family Medicine [address] [facility] [address] [place], [place] [phone] [place] [address] [facility] [address] [place] [address] documented as of this encounter Goals Goal Patient Goal Type Associated Problems Recent Progress Patient-Stated? Author Blood Pressure < 140/90 Blood Pressure 96/68(2023 2:34 PM CONVERTER SUPERVISOR) Rere Vargas Note: Caring for Your [...] Related Tools, and click ? HBP Trackers.? 1-081-KUWUSA- or ( ) National Heart, Lung and Blood [place]: http://www.nhlbi.nih.gov/health/infoctr/index.htm Blood Pressure < 140/90 Blood Pressure 96/68(2023 2:34 PM CONVERTER SUPERVISOR) Rere Vargas Note: Caring for Your [...] Related Tools, and click ? HBP Trackers.? 9-420-BJVUSA- or ( ) National Heart, Lung and Blood [place]: http://www.nhlbi.nih.gov/health/infoctr/index.htm Blood Pressure < 140/90 Blood Pressure 96/68(2023 2:34 PM CONVERTER SUPERVISOR) No Cassie Marie Note: Caring for [...] Related Tools, and click ? HBP Trackers.? 4-233-IGR-USA-1 or ( ) National Heart, Lung and Blood [place]: http://www.nhlbi.nih.gov/health/infoctr/index.htm Exercise 5X per week (30 min [...] diabetes: ? ? [place] Diabetes Association: www.diabetes.org 8-086-PYULFCGV ( ) ? ? Pakistani Diabetes Association-Support group line: www.professional.diabetes.org ? ? [place] Heart Association: www.heart.org or 3-852-HAZ-USA-1 ( ) Blackstrap MyPlate: www.Marquiss Wind Powermyplate.gov Have labs drawn Lifestyle Rere Vargas Note: [...] on filedocumented in this encounter Care Teams Optical Designer Relationship Specialty Start Date End Date Rosana Solo MD [address] [facility] [address] [place] [address] PCP - Attributed-[facility] 02/19/19 [place] [address] [facility] [address] [place] [address] Ophthalmology 04/06/16 documented as of this encounter
--- OUTSIDE RECORDS SUMMARY | 2024-04-03 02:27 | XMS_ITS | Encounter Summary ---
Author Organization [facility] Address [address] [facility] [place] [address] Care Team Providers Care Dermatology Physician Name Role Phone Ricco Andrew MD Unavailable [phone] Reason for Visit * Reason Comments Refill Request Encounter Details Date Type Department Care Team (Late st Contact Info) Description 01/06/2019 Refill [facility] - Family Medicine [id number] [place] [address] [place] [address] Pawan Holden, [address] [address] Refill Request Social History Tobacco [...] Contact Info) Description 04/07/2024 10:00 AM DRY CELL SEALER Office Visit [facility] [id number] [place] [address] [address] [place] [address] Evelin Blanco, GEOSCIENCE TECHNICIAN-RATE MANAGER [address] [facility] [address] [place] [address] 06/06/2024 2:00 PM CDT Office Visit [facility] [phone] [place] [address] 600 [place] [address] Chris Aden [place] [id number] [place] [address] 600 [place] [phone] documented as of this encounter Goals Goal Patient Goal Type Associated Problems Recent Progress Patient-Stated? Author Blood Pressure < 140/90 Blood Pressure 96/68(2023 2:34 PM DRY CELL SEALER) Rere Vargas Note: Caring for Your High [...] Related Tools, and click ? HBP Trackers.? 8-366-RPR-USA-1 or ( ) National Heart, Lung and Blood [place]: http://www.nhlbi.nih.gov/health/infoctr/index.htm Blood Pressure < 140/90 Blood Pressure 96/68(2023 2:34 PM DRY CELL SEALER) Rere Vargas Note: Caring for Your High [...] Related Tools, and click ? HBP Trackers.? 9-854-NHL-USA-1 or ( ) National Heart, Lung and Blood [place]: http://www.nhlbi.nih.gov/health/infoctr/index.htm Exercise 5X per week (30 min per time) Exercise Rere Vargas Note: The [place] College [employer] Sports [...] ? ? [place] Diabetes Association: www.diabetes.org 3-439-XDRRUXFP ( ) ? ? [place] Diabetes Association-Support group line: www.professional.diabetes.org ? ? [place] Heart Association: www.heart.org or 0-190-CWK-[facility]-1 ( ) Thuuz MyPlate: www.Belter Healthmyplate.gov Have labs drawn Lifestyle Rere Vargas Note: [...] on filedocumented in this encounter Care Teams Dermatology Physician Relationship Specialty [place] [address] [address] Ophthalmology 04/06/16 documented as of this encounter
--- OUTSIDE RECORDS SUMMARY | 2024-04-03 02:27 | XMS_ITS | Encounter Summary ---
Author Organization [facility] Address [address] [facility] [place] [address] Care Team Providers Care Clean In Places Operator Name Role Phone Ricco Andrew MD Unavailable Rosana Solo MD Unavailable [phone] Reason for Visit * Reason Onset Date Comments Outreach Preventive Care 01/30/2020 Encounter Details Date Type Department Care Team (Late st Contact Info) Description 01/30/2020 Patient Outreach [facility] - Care Coordination [facility] [place] [phone] Cyn Cardona Outreach Preventive Care Social History [...] COVID-19? No / Unsure 02/01/2020 10:49 AM PRINCIPAL CONSULTING ENGINEER documented as of this encounter Miscellaneous Notes [...] appointment scheduled Cyn Cardona 02/01/2020 10:50 AM CIPAL CONSULTING ENGINEER documented in this encounter Plan of Treatment Upcoming Encounters Date Type Department Care Team (Late st Contact Info) Description 04/07/2024 10:00 AM PRINCIPAL CONSULTING ENGINEER Office Visit [facility] [id number] [place] [address] [place] [address] Evelin Blanco, PLASTER MODEL AND MOLD MAKER-LOOM OVERHAULER [address] [address] 06/06/2024 2:00 PM CDT Office Visit [facility] [id number] [place] [address] [address] [place] [address] [place] [address] [facility] [address] [place] [address] documented as of this encounter Goals Goal Patient Goal Type Associated Problems Recent Progress Patient-Stated? Author Blood Pressure < 140/90 Blood Pressure 96/68(2023 2:34 PM PRINCIPAL CONSULTING ENGINEER) Rere Vargas Note: Caring for Your [...] Related Tools, and click ? HBP Trackers.? 6-101-MOV-USA-1 or ( ) National Heart, Lung and Blood [place]: http://www.nhlbi.nih.gov/health/infoctr/index.htm Blood Pressure < 140/90 Blood Pressure 96/68(2023 2:34 PM PRINCIPAL CONSULTING ENGINEER) Rere Vargas Note: Caring for Your [...] Related Tools, and click ? HBP Trackers.? 2-988-KLD-USA-1 or ( ) National Heart, Lung and Blood [place]: http://www.nhlbi.nih.gov/health/infoctr/index.htm Blood Pressure < 140/90 Blood Pressure 96/68(2023 2:34 PM PRINCIPAL CONSULTING ENGINEER) Cassie Parks Note: Caring for Your [...] Related Tools, and click ? HBP Trackers.? 4-140-SQM-USA-1 or ( ) National Heart, Lung and Blood [place]: http://www.nhlbi.nih.gov/health/infoctr/index.htm Exercise 5X per week (30 min per time) Exercise No Rere Kaufman Note: The [place] College [employer] [...] ? ? [place] Diabetes Association: www.diabetes.org 1-557-LFMQMVUW ( ) ? ? [place] Diabetes Association-Support group line: www.professional.diabetes.org ? ? [place] Heart Association: www.heart.org or 9-342-GFS-USA-1 ( ) [employer] MyPlate: www.G2 Web Servicesmyplate.gov Have labs drawn Lifestyle Rere Vargas [...] on filedocumented in this encounter Care Teams Clean In Places Operator Relationship Specialty Start Date End Date Rosana Solo MD [address] [facility] [address] [place] [address] PCP - Attributed-[facility] 02/19/19 [place] [address] [facility] [address] [place] [address] Ophthalmology 04/06/16 documented as of this encounter
--- OUTSIDE RECORDS SUMMARY | 2024-04-03 02:28 | XMS_ITS | Encounter Summary ---
Author Organization [facility] Address [address] [place] [address] Care Team Providers Care Eeler Name Role Phone Ricco Andrew MD Unavailable [phone] Encounter Details Date Type Department Care Team (Late Contact Info) Description 03/04/2018 Orders Only [facility] [address] [place] [address] Rosana Solo MD [address] [facility] [address] [place] [address] Social History Tobacco Use Types [...] (Late Contact Info) Description 04/07/2024 10:00 AM CO FOUNDER AND DIRECTOR Office Visit [facility] - Family Medicine [address] [facility] [address] [place], [place] [phone] Evelin Blanco, JOSETTE-DENIS [address] [facility] [address] [place] [address] 06/06/2024 2:00 PM CDT Office Visit [facility] Family Medicine [address] [facility] [address] [place] [address] [place] [address] [facility] [address] T[place]LE [address] [place] [phone] documented as of this encounter Goals Goal Patient Goal Type Associated Problems Recent Progress Patient-Stated? Author Blood Pressure < 140/90 Blood Pressure 96/68(2023 2:34 PM CO FOUNDER AND DIRECTOR) Rere Vargas Note: Caring for Your [...] Related Tools, and click ? HBP Trackers.? 5-310-IPV-USA- or ( ) National Heart, Lung and Blood [place]: http://www.nhlbi.nih.gov/health/infoctr/index.htm Blood Pressure < 140/90 Blood Pressure 96/68(2023 2:34 PM CO FOUNDER AND DIRECTOR) Rere Vargas Note: Caring for Your [...] Related Tools, and click ? HBP Trackers.? 9-674-PDI-USA-1 or ( ) National Heart, Lung and Blood [place]: http://www.nhlbi.nih.gov/health/infoctr/index.htm Exercise 5X per week (30 min [...] diabetes: ? ? [place] Diabetes Association: www.diabetes.org 9-925-JBSNILCY ( ) ? ? [place] Diabetes Association-Support group line: www.professional.diabetes.org ? ? [place] Heart Association: www.heart.org or 7-808-CES-USA-1 ( ) [employer] MyPlate: www.DoubleCheck Solutionsmyplate.gov Have labs drawn Lifestyle Rere Vargas [...] on filedocumented in this encounter Care Teams Eeler Relationship Specialty [place] [address] [address] Ophthalmology 04/06/16 documented as of this encounter
--- OUTSIDE RECORDS SUMMARY | 2024-04-03 02:28 | XMS_ITS | Encounter Summary ---
Author Organization [facility] Address [address] [facility] [place] [address] Care Team Providers Care Hospital Coder Name Role Phone Ricco Andrew MD Unavailable [phone] Reason for Visit * Reason Comments Refill Request Encounter Details Date Type Department Care Team (Late Contact Info) Description 07/27/2016 Refill [facility] - Family Medicine [address] [place] [address] Rosana Solo MD [facility][note 2][address] [address] Refill Request Social History Tobacco [...] encounter Miscellaneous Notes * Telephone Encounter - Vneancio Dupree - 07/27/2016 12:49 PM CDT Already filled. documented in this encounter Plan of Treatment Upcoming Encounters Date Type Department Care Team (Late Contact Info) Description 04/07/2024 10:00 AM SUSTAINABILITY SPECIALIST Office Visit [facility] [address] [facility] [address] [place] [address] Evelin Blanco APRN-CNP [address] [address] 06/06/2024 2:00 PM CDT Office Visit [facility] [address] [facility] [address] [place] [address] [place] [address] [facility] [address] [place] [address] documented as of this encounter Goals Goal Patient Goal Type Associated Problems Recent Progress Patient-Stated? Author Blood Pressure < 140/90 Blood Pressure 96/68(2023 2:34 PM SUSTAINABILITY SPECIALIST) Rere Vargas Note: Caring for Your [...] Where can I go for more information? [place] Heart Association National Center: http://www.americanheart.org 1. In the top header, click ? Conditions? . 2. In the top header, click ? high blood pressure.? 3. For a printable blood pressure tracker, scroll toward the bottom of the page to Related Tools, and click ? HBP Trackers.? 4-379-SVT-USA-1 or ( ) National Heart, Lung and Blood [place]: http://www.nhlbi.nih.gov/health/infoctr/index.htm Blood Pressure < 140/90 Blood Pressure 96/68(2023 2:34 PM SUSTAINABILITY SPECIALIST) Rere Vargas Note: Caring for Your [...] Where can I go for more information? [place] Heart Association National Center: http://www.americanheart.org 1. In the top header, click ? Conditions? . 2. In the top header, click ? high blood pressure.? 3. For a printable blood pressure tracker, scroll toward the bottom of the page to Related Tools, and click ? HBP Trackers.? 5-381-SOL-USA-1 or ( ) National Heart, Lung and Blood [place]: http://www.nhlbi.nih.gov/health/infoctr/index.htm Exercise 5X per week (30 min per time) Exercise No Rere Kaufman Note: The [place] College of Sports Medicine recommends all adults [...] how to manage your diabetes: ? ? [place] Diabetes Association: www.diabetes.org 6-316-OISXJMJC ( ) ? ? [place] Diabetes Association-Support group line: www.professional.diabetes.org ? ? [place] Heart Association: www.heart.org or 6-864-HIL-USA-1 ( ) [employer] MyPlate: www.OpenVPNmyplate.gov Have labs drawn Lifestyle Rere Vargas Note: [...] on filedocumented in this encounter Care Teams Hospital Coder Relationship Specialty [place] [address] [address] Ophthalmology 04/06/16 documented as of this encounter
--- OUTSIDE RECORDS SUMMARY | 2024-04-03 02:28 | XMS_ITS ---
Author Organization [facility] Address [address] [facility] [place] [address] Care Team Providers Care Chorus Master Name Role Phone Ricco Andrew MD Unavailable [phone] Fawn Ramon DPM Unavailable [phone] Chris Aden MD Primary Care Provider [phone] Chris Aden MD Unavailable QMM & AWV - Vibrance Status:Closed (Closed) Start date:2023 Enrollment date:2023 Enrollment reason:Identified using claims or encounter data End date:2023 Close reason:Follow by dynamic observation Continued Care and Services Coordination
--- OUTSIDE RECORDS SUMMARY | 2024-04-03 02:28 | XMS_ITS | Encounter Summary ---
Author Organization [facility] Address [address] [facility] [place] [address] Care Team Providers Care Warp Hand Name Role Phone Ricco Anrdew MD Unavailable Reason for Visit * Reason Onset Date Comments Referral 04/10/2016 Encounter Details Date Type Department Care Team (Late st Contact Info) Description 04/10/2016 Telephone [facility] - Family Medicine [address] [place], [place] [phone] Rosana Arzate MD [facility] [address] Referral Social History Tobacco Use [...] Tapia - 04/17/2016 3:19 PM CST duplicate NG MILL SET UP OPERATOR * Telephone Encounter - Yaima Oneill - 04/16/2016 9:52 AM BORING MILL SET UP OPERATOR Suzanne with [facility] calling for update on referral. jarad appointment is for 04/20/16. NG MILL SET UP OPERATOR * Telephone Encounter - Smooth Aviles - 04/10/2016 9:55 AM CST Person Requesting Referral: [facility] PCP: Dr. Arzate Specialist: Dr. 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 Appointment Date: 04-20-16 at 9:15am Insurance: [employer] Tax ID # [id number] NG MILL SET UP OPERATOR documented in this encounter Plan of Treatment Upcoming Encounters Date Type Department Care Team (Late st Contact Info) Description 04/07/2024 10:00 AM BORING MILL SET UP OPERATOR Office Visit [facility] [id number] [place] [address] Evelin Blanco, TINNING EQUIPMENT TENDER-BRAIDING MACHINE OPERATOR [address] [address] 06/06/2024 2:00 PM CDT Office Visit [facility] [phone] [place] [address] [place] [phone] [place] [address] DR T[address]TLE [address] [place] [phone] documented as of this encounter Goals Goal Patient Goal Type Associated Problems Recent Progress Patient-Stated? Author Blood Pressure < 140/90 Blood Pressure 96/68(2023 2:34 PM BORING MILL SET UP OPERATOR) Rere Vargas Note: Caring for Your [...] Related Tools, and click ? HBP Trackers.? 7-913-MJM-USA-1 or ( ) National Heart, Lung and Blood [place]: http://www.nhlbi.nih.gov/health/infoctr/index.htm Exercise 5X per week (30 min [...] diabetes: ? ? [place] Diabetes Association: www.diabetes.org 1-908-AJEQNRXC ( ) ? ? [place] Diabetes Association-Support group line: www.professional.diabetes.org ? ? [place] Heart Association: www.heart.org or 1-598-WAV-USA-1 ( ) [employer] MyPlate: www.choosemyplate.gov documented as of this encounter Visit Diagnoses Not on filedocumented in this encounter Care Teams Warp Hand Relationship Specialty [place] [address] [address] Ophthalmology 04/06/16 documented as of this encounter
--- OUTSIDE RECORDS SUMMARY | 2024-04-03 02:28 | XMS_ITS | Encounter Summary ---
Author Organization [facility] Address [address] [place] [address] Care Team Providers Care Stock Transfer Clerk Name Role Phone Ricco Andrew MD Unavailable [phone] Reason for Visit * Reason Comments Refill Request Encounter Details Date Type Department Care Team (Late st Contact Info) Description 04/18/2018 Refill [facility] - Family Medicine [address] [place], [place] [phone] Rosana Solo MD [address] [address] Refill Request Social History Tobacco [...] Last refill- 10/18/17 Last OV-04/07/18 Future OV-08/29/18 ERY CONTAINER TESTER ALUMINUM * Telephone Encounter - Sarah Cabrera LPN - 04/19/2018 11:22 AM CST Requested Prescriptions Pending Prescriptions Disp Refills ??? glipiZIDE (GLUCOTROL) 5 MG tablet [Pharmacy Med Name: GLIPIZIDE 5 MG TABLET] 90 tablet 1 Sig: TAKE 1 TABLET BY MOUTH DAILY BEFORE BREAKFAST REASONS: TYPE 2 DIABETES Rosana oSlo MD Last office visit: 04/07/2018 Next OV:08/29/2018 [...] 6 TBIL 0.2 TPROT 7.3 EGFR 45 ERY CONTAINER TESTER ALUMINUM documented in this encounter Plan of Treatment Upcoming Encounters Date Type Department Care Team (Late st Contact Info) Description 04/07/2024 10:00 AM BATTERY CONTAINER TESTER ALUMINUM Office Visit [facility] - Family Medicine [phone] [place] [address] [place] [address] Evelin Blanco, JOSETTE-SYSTEM SPECIALIST [address] [facility] [address] [place] [address] 06/06/2024 2:00 PM CDT Office Visit [facility] Family Medicine [address] [facility] [address] [place] [address] [place] [address] [facility] [address] [address] documented as of this encounter Goals Goal Patient Goal Type Associated Problems Recent Progress Patient-Stated? Author Blood Pressure < 140/90 Blood Pressure 96/68(2023 2:34 PM BATTERY CONTAINER TESTER ALUMINUM) Rere Vargas Note: Caring for Your High [...] Where can I go for more information? [place] Heart Association National Center: http://www.americanheart.org 1. In the top header, click ? Conditions? . 2. In the top header, click ? high blood pressure.? 3. For a printable blood pressure tracker, scroll toward the bottom of the page to Related Tools, and click ? HBP Trackers.? 5-168-DNRUSA- or ( ) National Heart, Lung and Blood [place]: http://www.nhlbi.nih.gov/health/infoctr/index.htm Blood Pressure < 140/90 Blood Pressure 96/68(2023 2:34 PM BATTERY CONTAINER TESTER ALUMINUM) Rere Vargas Note: Caring for Your High [...] Where can I go for more information? Italian Heart Association National Center: http://www.americanheart.org 1. In the top header, click ? Conditions? . 2. In the top header, click ? high blood pressure.? 3. For a printable blood pressure tracker, scroll toward the bottom of the page to Related Tools, and click ? HBP Trackers.? 7-506-VKN-USA- or ( ) National Heart, Lung and Blood [place]: http://www.nhlbi.nih.gov/health/infoctr/index.htm Exercise 5X per week (30 min per time) Exercise Rere Vargas Note: The Italian College of Sports Medicine recommends all adults [...] how to manage your diabetes: ? ? Italian Diabetes Association: www.diabetes.org 6-445-ONPSGFZH ( ) ? ? Italian Diabetes Association-Support group line: www.professional.diabetes.org ? ? [place] Heart Association: www.heart.org or 8-819-HLR-USA-1 ( ) [employer] MyPlate: www.Cyvenio Biosystemsmyplate.gov Have labs drawn Lifestyle Rere Vargsa Note: Caring for Your Diabetes Routine Testing [...] on filedocumented in this encounter Care Teams Stock Transfer Clerk Relationship Specialty [place] [address] [phone] Ophthalmology 04/06/16 documented as of this encounter
--- OUTSIDE RECORDS SUMMARY | 2024-04-03 02:28 | XMS_ITS | Encounter Summary ---
Author Organization [facility] Address [address] [place] [address] Care Team Providers Care Housecalls Nurse Name Role Phone Ricco Andrew MD Unavailable [phone] Reason for Visit * Reason Comments Refill Request Encounter Details Date Type Department Care Team (Late st Contact Info) Description 02/13/2017 Refill [facility] - Family Medicine [address] [place], [place] [phone] Rosana Solo MD [facility] [address] [address] Refill Request Social History Tobacco [...] f/u 03/01/17 to get refills after this E SUPERVISOR * Telephone Encounter - KervintalialeannaTiffany - 02/15/2017 9:59 AM CST Last Refill: 02/24/16 Last OV: 07/23/16 Upcoming OV: none E SUPERVISOR documented in this encounter Plan of Treatment Upcoming Encounters Date Type Department Care Team (Late st Contact Info) Description 04/07/2024 10:00 AM GLAZE SUPERVISOR Office Visit [facility] [address] [facility] [address] [place] [address] Evelin Blanco APRN-DENIS [address] [facility] [address] [place] [address] 06/06/2024 2:00 PM CDT Office Visit [facility] [address] [facility] [address] [place] [address] [place] [address] [facility] [address] [place] [address] documented as of this encounter Goals Goal Patient Goal Type Associated Problems Recent Progress Patient-Stated? Author Blood Pressure < 140/90 Blood Pressure 96/68(2023 2:34 PM GLAZE SUPERVISOR) Rere Vargas Note: Caring for Your [...] Related Tools, and click ? HBP Trackers.? 0-544-WQT-USA-1 or ( ) National Heart, Lung and Blood [place]: http://www.nhlbi.nih.gov/health/infoctr/index.htm Blood Pressure < 140/90 Blood Pressure 96/68(2023 2:34 PM GLAZE SUPERVISOR) Rere Vargas Note: Caring for Your [...] Related Tools, and click ? HBP Trackers.? 5-668-HTP-USA-1 or ( ) National Heart, Lung and Blood [place]: http://www.nhlbi.nih.gov/health/infoctr/index.htm Exercise 5X per week (30 min [...] ? ? [place] Diabetes Association: www.diabetes.org 5-244-JVSIOGRY ( ) ? ? [place] Diabetes Association-Support group line: www.professional.diabetes.org ? ? [place] Heart Association: www.heart.org or 1-990-KQX-USA-1 ( ) [employer] MyPlate: www.Froontmyplate.gov Have labs drawn Lifestyle Rere Vargas Note: [...] on filedocumented in this encounter Care Teams Housecalls Nurse Relationship Specialty [place] [address] [address] Ophthalmology 04/06/16 documented as of this encounter
--- OUTSIDE RECORDS SUMMARY | 2024-04-03 02:28 | XMS_ITS | Encounter Summary ---
Author Organization [facility] Address [address] [facility] [place] [address] Care Team Providers Care Star Route Mail Driver Name Role Phone Ricco Andrew MD Unavailable [phone] Reason for Visit * Reason Onset Date Comments MEDICATION REFILL 01/25/2017 Encounter Details Date Type Department Care Team (Late st Contact Info) Description 01/25/2017 Refill [facility] - Family Medicine [address] [place], [place] [phone] Chauncey Herrera MD [address] [place] [address] MEDICATION REFILL Social History Tobacco Use [...] Type 2 Diabetes Authorizing Provider: CHAUNCEY HERRERA /HOSTESS HEAD * Telephone Encounter - Juan Avila - [...] 07/23/16 Last OV: 07/23/16 Next OV: none /HOSTESS HEAD documented in this encounter Plan of Treatment Upcoming Encounters Date Type Department Care Team (Late st Contact Info) Description 04/07/2024 10:00 AM HOST/HOSTESS HEAD Office Visit [address] [address] Evelin Blanco, JOSETTE-CARDIAC SONOGRAPHER [phone] [place] [address] 06/06/2024 2:00 PM CDT Office Visit [address] [address] [place] [phone] [place] [address] documented as of this encounter Goals Goal Patient Goal Type Associated Problems Recent Progress Patient-Stated? Author Blood Pressure < 140/90 Blood Pressure 96/68(2023 2:34 PM HOST/HOSTESS HEAD) Rere Vargas Note: Caring for Your High [...] Related Tools, and click ? HBP Trackers.? 9-932-XKJ-USA-1 or ( ) National Heart, Lung and Blood [place]: http://www.nhlbi.nih.gov/health/infoctr/index.htm Blood Pressure < 140/90 Blood Pressure 96/68(2023 2:34 PM HOST/HOSTESS HEAD) Rere Vargas Note: Caring for Your High [...] Related Tools, and click ? HBP Trackers.? 6-425-GKC-USA-1 or ( ) National Heart, Lung and Blood [place]: http://www.nhlbi.nih.gov/health/infoctr/index.htm Exercise 5X per week (30 min [...] diabetes: ? ? [place] Diabetes Association: www.diabetes.org 7-702-JKEBAFMJ ( ) ? ? [place] Diabetes Association-Support group line: www.professional.diabetes.org ? ? [place] Heart Association: www.heart.org or 3-523-SDW-USA-1 ( ) [employer] MyPlate: www.NewCare Solutionsmyplate.gov Have labs drawn Lifestyle No Rere [...] (HCC) documented in this encounter Care Teams Star Route Mail Driver Relationship Specialty [place] [address] [address] Ophthalmology 04/06/16 documented as of this encounter
--- OUTSIDE RECORDS SUMMARY | 2024-04-03 02:28 | XMS_ITS | Encounter Summary ---
Author Organization [facility] Address [address] [facility] [place] [address] Care Team Providers Care Medical Lab Technologist Name Role Phone Ricco Andrew MD Unavailable [phone] Reason for Visit * Reason Onset Date Comments Referral 01/11/2018 Encounter Details Date Type Department Care Team (Late st Contact Info) Description 01/11/2018 Telephone [facility] Medical [facility] - Family Medicine [address] [place], [place] [id number] Rosana Solo MD [address] [address] Referral Social History Tobacco Use [...] be faxed again to correct fax number [phone], patient's appointment is today Expected Response from the Clinic? ( ex. Call back, etc..) documented in this encounter Plan of Treatment Upcoming Encounters Date Type Department Care Team (Late st Contact Info) Description 04/07/2024 10:00 AM SUPPLIER QUALITY MANAGER Office Visit [facility] [id number] [place] [address] [place] [address] Evelin Blanco, BREAKER UNIT ASSEMBLER-STUDIO OPERATOR [address] [phone] 06/06/2024 2:00 PM CDT Office Visit [facility] [phone] [place] [address] [address] [place], [place] [address] [place] [address] [phone] documented as of this encounter Goals Goal Patient Goal Type Associated Problems Recent Progress Patient-Stated? Author Blood Pressure < 140/90 Blood Pressure 96/68(2023 2:34 PM SUPPLIER QUALITY MANAGER) No Rere Kaufman Note: Caring for Your [...] Related Tools, and click ? HBP Trackers.? 9-280-BFD-USA-1 or ( ) National Heart, Lung and Blood [place]: http://www.nhlbi.nih.gov/health/infoctr/index.htm Blood Pressure < 140/90 Blood Pressure 96/68(2023 2:34 PM SUPPLIER QUALITY MANAGER) Rere Vargas Note: Caring for Your [...] Related Tools, and click ? HBP Trackers.? 7-126-FVM-USA-1 or ( ) National Heart, Lung and Blood [place]: http://www.nhlbi.nih.gov/health/infoctr/index.htm Exercise 5X per week (30 min per time) Exercise No Rere Kaufman Note: The [place] College of Sports Medicine [...] diabetes: ? ? [place] Diabetes Association: www.diabetes.org 2-047-VHFMCMKW ( ) ? ? [place] Diabetes Association-Support group line: www.professional.diabetes.org ? ? [place] Heart Association: www.heart.org or 2-457-KUR-USA-1 ( ) [employer]book MyPlate: www.Aminex Therapeuticsmyplate.gov Have labs drawn Lifestyle No Rere [...] filedocumented in this encounter Care Teams Medical Lab Technologist Relationship Specialty [place] [address] [address] Ophthalmology 04/06/16 documented as of this encounter
--- OUTSIDE RECORDS SUMMARY | 2024-04-03 02:28 | XMS_ITS | Encounter Summary ---
Author Organization [facility] Address [address] [facility] [place] [address] Care Team Providers Care Pocket Machine Operator Name Role Phone Ricco Andrew MD Unavailable [phone] Reason for Visit * Reason Onset Date Comments Erroneous encounter-disregard 04/27/2017 Encounter Details Date Type Department Care Team (Late Contact Info) Description 04/27/2017 Telephone [facility] [id number] [place] [address] [address] [place] [address] Rosana Solo MD [facility] [address] Erroneous encounter-disregard Social History Tobacco [...] (Late Contact Info) Description 04/07/2024 10:00 AM COPY MESSENGER Office Visit [facility] [address] [facility] [address] [place] [address] Evelin Blanco, JOSETTE-RETAIL ADMINISTRATIVE ASSISTANT [address] [facility] [address] [place] [address] 06/06/2024 2:00 PM CDT Office Visit [facility] Family Medicine [address] [facility] [address] [place], [place] [phone] [place] [address] [facility] [address] [place] [address] documented as of this encounter Goals Goal Patient Goal Type Associated Problems Recent Progress Patient-Stated? Author Blood Pressure < 140/90 Blood Pressure 96/68(2023 2:34 PM COPY MESSENGER) Rere Vargas Note: Caring for Your High [...] Related Tools, and click ? HBP Trackers.? 4-716-ORN-USA- or ( ) National Heart, Lung and Blood [place]: http://www.nhlbi.nih.gov/health/infoctr/index.htm Blood Pressure < 140/90 Blood Pressure 96/68(2023 2:34 PM COPY MESSENGER) Rere Vargas Note: Caring for Your High [...] Related Tools, and click ? HBP Trackers.? 7-868-BRQ-USA- or ( ) National Heart, Lung and Blood [place]: http://www.nhlbi.nih.gov/health/infoctr/index.htm Exercise 5X per week (30 min per time) Exercise Rere Vargas Note: The [place] College of Sports Medicine [...] diabetes: ? ? [place] Diabetes Association: www.diabetes.org 0-826-DFHZAQSZ ( ) ? ? [place]ian Diabetes Association-Support group line: www.professional.diabetes.org ? ? [place]ian Heart Association: www.heart.org or 3-221-JZY-USA-1 ( ) [employer]ic MyPlate: www.The Bauhubmyplate.gov Have labs drawn Lifestyle Rere Vargas Note: [...] on filedocumented in this encounter Care Teams Pocket Machine Operator Relationship Specialty [place] [address] [address] Ophthalmology 04/06/16 documented as of this encounter
--- OUTSIDE RECORDS SUMMARY | 2024-04-03 02:28 | XMS_ITS ---
Author Organization [facility] Address [address] [place] [address] Care Team Providers Care Shift Engineer Name Role Phone Ricco Andrew MD Unavailable Fawn Ramon DPM Unavailable [phone] Chris Aden MD Primary Care Provider [phone] Chris Aden MD Unavailable QMM & AWV - Vibrance Status:Closed (Closed) Start date:12/16/2022 Enrollment date:12/16/2022 Enrollment reason:Identified using claims or encounter data End date:12/16/2022 Close reason:Follow by dynamic observation Continued Care and Services Coordination
--- OUTSIDE RECORDS SUMMARY | 2024-04-03 02:28 | XMS_ITS | Encounter Summary ---
Author Organization [facility] Address [address] [facility] [place] [address] Care Team Providers Care Resilient Tile Installer Name Role Phone Ricco Andrew MD Unavailable [phone] Reason for Visit * Reason Comments Diabetes Routine follow up Encounter Details Date Type Department Care Team (Late st Contact Info) Description 03/01/2017 1:00 PM LIFE SCIENCE TECHNICAL OFFICER Office Visit [facility] - Family Medicine [address] [place], [place] [phone] Rosana Solo MD [address] [facility] [address] [place] [address] Type 2 diabetes mellitus with [...] Comments Blood Pressure 118/72 03/01/2017 1:23 PM LIFE SCIENCE TECHNICAL OFFICER Pulse 72 03/01/2017 1:23 PM LIFE SCIENCE TECHNICAL OFFICER Temperature 36.9 ??C (98.5 ??F) 03/01/2017 1:23 PM CS T Respiratory Rate 18 03/01/2017 1:23 PM LIFE SCIENCE TECHNICAL OFFICER Oxygen Saturation - - Inhaled Oxygen Concentration - - Weight 79.6 kg (175 lb 6.4 oz) 03/01/2017 1:23 P M LIFE SCIENCE TECHNICAL OFFICER Height 165.1 cm (5' 5) 03/01/2017 1:23 PM LIFE SCIENCE TECHNICAL OFFICER Body Mass Index 29.19 03/01/2017 1:23 PM LIFE SCIENCE TECHNICAL OFFICER documented in this encounter Patient Instructions * Patient Instructions* Rosana Solo MD - 03/01/2017 1:36 PM LIFE SCIENCE TECHNICAL OFFICER Referral to Dr. Amos for hand/trigger finger Get labs at [facility] today Caring For Your Diabetes ?? Follow a diabetic diet with healthy meals that are low salt, low fat, high fiber. For more information on a diabetic diet, please go to the [place] Diabetes Association website at www.diabetes.org and select [...] minutes if trying to lose weight) The [place] College of Sports Medicine recommends [...] ANNUAL MEDICARE WELLNESS VISIT 02/05/2016 ??? DIABETES-EDUCATION ([id number]) 02/05/2016 ??? DIABETES-EYE EXAM 02/05/2016 ??? INFLUENZA [...] to Related Tools, and click ???HBP Trackers.?? 7-004-GNK-[facility]- or ( ) National Heart, Lung and Blood [place]: http://www.nhlbi.nih.gov/health/infoctr/index.htm ? ? Blood Pressure < 140/90 [...] information? Mexican Heart Association National Center: http://www.americanheart.org 4. In the top header, click ???Conditions?? . 5. In the top header, click ???high blood pressure.?? 6. For a printable blood pressure tracker, scroll toward the bottom of the page to Related Tools, and click ???HBP Trackers.?? 9-965-IIQ-USA- or ( ) National Heart, Lung and Blood [place]: http://www.nhlbi.nih.gov/health/infoctr/index.htm ??? Exercise 5X per week (30 min per time) The [place] College of Sports Medicine recommends [...] and how to manage your diabetes: ??? [place] Diabetes Association: www.diabetes.org 2-558-RBAXOIMM ( ) ??? Mexican Diabetes Association-Support group line: www.professional.diabetes.org ??? [place] Heart Association: www.heart.org or 2-316-AED-USA-1 ( ) InforSense MyPlate: www.Kids Moviemyplate.gov ??? Have labs drawn Caring for Your [...] issues. ?? See me in 6 months SCIENCE TECHNICAL OFFICER documented in this encounter Progress Notes * Rosana Solo MD - 03/02/2017 7:13 PM CST Cholesterol [...] the correct dose of levothyroxine Sent to [facility] SCIENCE TECHNICAL OFFICER * Rosana Solo MD - 03/01/2017 1:28 [...] ANNUAL MEDICARE WELLNESS VISIT 02/05/2016 ??? DIABETES-EDUCATION (RBG920) 02/05/2016 ??? DIABETES-HGB A1C 01/23/2017 ??? HCC [...] ANNUAL MEDICARE WELLNESS VISIT 02/05/2016 ??? DIABETES-EDUCATION ([id number]) 02/05/2016 ??? DIABETES-HGB A1C 01/23/2017 Follow up in 6 months Or return to clinic sooner if persistent or worsening symptoms An After Visit Summary was printed and given to the patient. Rosana Solo MD SCIENCE TECHNICAL OFFICER * Dylan Moreno - 03/01/2017 1:27 PM CST Patient is here for his routine follow up of his DM. Patient's daughter states that his trigger finger is getting worse on the right hand. BP 118/72 Pulse 72 Temp 98.5 ??F (Oral) Resp 18 Ht 1.651 m (5' 5) Wt 79.6 kg (175 lb 6.4 oz) BMI 29.19 kg/m2 SCIENCE TECHNICAL OFFICER documented in this encounter Plan of Treatment Upcoming Encounters Date Type Department Care Team (Late st Contact Info) Description 04/07/2024 10:00 AM LIFE SCIENCE TECHNICAL OFFICER Office Visit [facility] [id number] [place] [address] [place] [address] Evelin Blanco APRN-ENVIRONMENTAL SERVICE AIDE [address] [place] [address] 06/06/2024 2:00 PM CDT Office Visit [facility] [address] [place] [address] [address] [place] [address] [place] [address] [place] [phone] documented as of this encounter Goals Goal Patient Goal Type Associated Problems Recent Progress Patient-Stated? Author Blood Pressure < 140/90 Blood Pressure 96/68(2023 2:34 PM LIFE SCIENCE TECHNICAL OFFICER) Rere Vargas Note: Caring for [...] Related Tools, and click ? HBP Trackers.? 1-997-ZLJ-USA-1 or ( ) National Heart, Lung and Blood [place]: http://www.nhlbi.nih.gov/health/infoctr/index.htm Blood Pressure < 140/90 Blood Pressure 96/68(2023 2:34 PM LIFE SCIENCE TECHNICAL OFFICER) Rere Vargas Note: Caring for [...] Related Tools, and click ? HBP Trackers.? 1-603-LWY-USA-1 or ( ) National Heart, Lung and Blood [place]: http://www.nhlbi.nih.gov/health/infoctr/index.htm Exercise 5X per week (30 min per time) Exercise Rere Vargas Note: The [place] College of Sports Medicine [...] diabetes: ? ? [place] Diabetes Association: www.diabetes.org 3-584-JUTJBOIX ( ) ? ? Mexican Diabetes Association-Support group line: www.professional.diabetes.org ? ? [place] Heart Association: www.heart.org or 5-249-CZW-USA-1 ( ) InforSense MyPlate: www.Kids Moviemyplate.gov Have labs drawn Lifestyle No Rere Kaufman [...] URINE RANDOM PANEL Routine 03/01/2017 2:19 PM LIFE SCIENCE TECHNICAL OFFICER Type 2 diabetes mellitus with stage 3 chronic kidney disease, without long-term current use of insulin (HCC) Type 2 diabetes mellitus with diabetic neuropathy, without long-term current use of insulin (HCC) HEMOGLOBIN A1C Routine 03/01/2017 2:19 PM LIFE SCIENCE TECHNICAL OFFICER Type 2 diabetes mellitus with stage 3 chronic kidney disease, without long-term current use of insulin (HCC) Type 2 diabetes mellitus with diabetic neuropathy, without long-term current use of insulin (HCC) COMPREHENSIVE METABOLIC PANEL Routine 03/01/2017 2:19 PM LIFE SCIENCE TECHNICAL OFFICER Type 2 diabetes mellitus with stage 3 chronic kidney disease, without long-term current use of insulin (HCC) Type 2 diabetes mellitus with diabetic neuropathy, without long-term current use of insulin (HCC) Benign hypertension with chronic kidney disease TSH Routine 03/01/2017 2:19 PM LIFE SCIENCE TECHNICAL OFFICER Hypothyroidism, adult LIPID PROFILE Routine 03/01/2017 2:19 PM LIFE SCIENCE TECHNICAL OFFICER Type 2 diabetes mellitus with stage 3 chronic kidney disease, without long-term current use of insulin (HCC) Type 2 diabetes mellitus with diabetic neuropathy, without long-term current use of insulin (HCC) documented in this encounter Results * TSH (03/01/2017 2:19 PM LIFE SCIENCE TECHNICAL OFFICER) TSH 2.10 0.358 - 3.740 uIU/mL [facility] ACCOUNT BILL Blood BLOOD SPECIMEN / Unknown 03/01/2017 2:19 PM LIFE SCIENCE TECHNICAL OFFICER 03/01/2017 Narrative Resulting Agency Comment [place] [phone] [address] ??[facility] [phone] Rosana Solo MD LAB - CHEMISTRY MELYSSA CHAHAL [facility] Organization Address City/State/ZIP Co de Phone Number [facility] ACCOUNT BILL [address] [place] [address] * MICROALB/CREAT RATIO URINE RANDOM PANEL (03/01/2017 2:19 PM LIFE SCIENCE TECHNICAL OFFICER) Creatinine Urine 68 mg/dL [facility] ACCOUNT BILL Microalbumin Urine <0.5 mg/dL [facility] ACCOUNT BILL Microalbumin/Crea tinine Ratio <7 <30 mg/g [facility] ACCOUNT BILL Urine URINE SPECIMEN OBTAINED BY CLEAN CATCH PROCEDURE / Unknown 03/01/2017 2:19 PM LIFE SCIENCE TECHNICAL OFFICER 03/01/2017 Narrative Resulting Agency Comment [place] [address] [address] ??[place]a [place] [phone] Rosana Solo MD LAB - URINE CHEMISTR Y ORDERABLES [facility] ACCOUNT BILL [address] [place] [address] * (ABNORMAL) HEMOGLOBIN A1C (03/01/2017 2:19 PM LIFE SCIENCE TECHNICAL OFFICER) Hemoglobin A1c 7.0(H) 4.2 - 6.3 % [facility] ACCOUNT BILL Comment:AVERAGE GLUCOSE MG/D L BLOOD 154 mg/dL Whole Blood BLOOD SPECIMEN WITH EDTA / Unknown 03/01/2017 2:19 PM LIFE SCIENCE TECHNICAL OFFICER 03/01/2017 Narrative Resulting Agency Comment [place] [address] [address] ??Ana [place]AR[place] [phone] Rosana Solo MD LAB - CHEMISTRY ORDE RABLES [facility] ACCOUNT BILL [address] [place] [address] * (ABNORMAL) COMPREHENSIVE METABOLIC PANEL (03/01/2017 2:19 PM LIFE SCIENCE TECHNICAL OFFICER) Glucose 86 74 - 106 mg/dL [facility] [...] BLOOD SPECIMEN / Unknown 03/01/2017 2:19 PM LIFE SCIENCE TECHNICAL OFFICER 03/01/2017 Narrative Resulting Agency Comment [facility] [address] ??[place] [phone] Rosana Solo MD LAB - CHEMISTRY MELYSSA CHAHAL [facility] ACCOUNT BILL [address] [place] [address] * LIPID PROFILE (03/01/2017 2:19 PM LIFE SCIENCE TECHNICAL OFFICER) Cholesterol 149 <200 mg/dL [facility] ACCOUNT BILL Triglycerides 97 <150 mg/dL [facility] ACCOUNT BILL HDL Cholesterol 43 >40 mg/dL [facility] ACCOUNT BILL VLDL Calculated 19 <=30 mg/dL [facility] ACCOUNT BILL LDL Calculated 87 <130 mg/dL [facility] ACCOUNT BILL Comment:Not calculated Blood BLOOD SPECIMEN / Unknown 03/01/2017 2:19 PM LIFE SCIENCE TECHNICAL OFFICER 03/01/2017 Narrative Resulting Agency Comment [facility] [address] ??[place] [phone] Rosana Solo MD LAB - CHEMISTRY MELYSSA CHAHAL [facility] ACCOUNT BILL [address] [place] [address] documented in this encounter Visit Diagnoses Diagnosis [...] influenza documented in this encounter Care Teams Resilient Tile Installer Relationship Specialty [place] [address] [phone] Ophthalmology 04/06/16 documented as of this encounter
--- OUTSIDE RECORDS SUMMARY | 2024-04-03 02:28 | XMS_ITS | Encounter Summary ---
Author Organization [facility] Address [address] [facility] [place] [address] Care Team Providers Care Lifeguard Name Role Phone Ricco Andrew MD Unavailable [phone] Reason for Visit * Reason Onset Date Comments Referral Request 12/28/2017 Encounter Details Date Type Department Care Team (Late st Contact Info) Description 12/28/2017 Telephone [facility] Medical [facility] - Family Medicine [address] [place], [place] [phone] Rosana Solo MD [address] [facility] [address] [place] [address] Referral Request Social History Tobacco [...] the referral has been completed and faxed. Auth#[id number] Valid From:12/28/2017-06/26/2018 Visits:6 * Telephone Encounter - Christy Rivera - 12/28/2017 3:13 PM CDT Mk Sanches is in need of an insurance referral for : Diagnosis Code or reason being Seen: eye exam Date of Scheduled Appt- 01/11/18 2:00 pm Specialist Name- Dr. Negar Dey Specialist Phone Number- [phone] Specialist Fax Number- [phone] Insurance- [place] medicare complete hmo PCP- Rosana Solo MD Person calling for the referral- Cassie documented in this encounter Plan of Treatment Upcoming Encounters Date Type Department Care Team (Late st Contact Info) Description 04/07/2024 10:00 AM OPERATIONS SUPPORT ANALYST Office Visit [facility] [id number] [place] [address] [address] [place] [address] Evelin Blanco APRN-SHAREPOINT ADMIN [address] [facility] [address] [place] [address] 06/06/2024 2:00 PM CDT Office Visit [facility] [id number] [place] [address] [address] [place] [address] [place] [address] [phone] documented as of this encounter Goals Goal Patient Goal Type Associated Problems Recent Progress Patient-Stated? Author Blood Pressure < 140/90 Blood Pressure 96/68(2023 2:34 PM OPERATIONS SUPPORT ANALYST) Rere Vargas Note: Caring for Your [...] Where can I go for more information? French Heart Association National Center: http://www.americanheart.org 1. In the top header, click ? Conditions? . 2. In the top header, click ? high blood pressure.? 3. For a printable blood pressure tracker, scroll toward the bottom of the page to Related Tools, and click ? HBP Trackers.? 1-206-ZSQ-USA-1 or ( ) National Heart, Lung and Blood [place]: http://www.nhlbi.nih.gov/health/infoctr/index.htm Blood Pressure < 140/90 Blood Pressure 96/68(2023 2:34 PM OPERATIONS SUPPORT ANALYST) Rere Vargas Note: Caring for Your [...] Where can I go for more information? [place] Heart Association National Center: http://www.americanheart.org 1. In the top header, click ? Conditions? . 2. In the top header, click ? high blood pressure.? 3. For a printable blood pressure tracker, scroll toward the bottom of the page to Related Tools, and click ? HBP Trackers.? 5-422-VEJ-USA-1 or ( ) National Heart, Lung and Blood [place]: http://www.nhlbi.nih.gov/health/infoctr/index.htm Exercise 5X per week (30 min per time) Exercise No Rere Kaufman Note: The French College of Sports Medicine recommends all adults [...] how to manage your diabetes: ? ? French Diabetes Association: www.diabetes.org 3-304-EYAXVMEC ( ) ? ? French Diabetes Association-Support group line: www.professional.diabetes.org ? ? French Heart Association: www.heart.org or 9-492-FJV-USA-1 ( ) [employer] MyPlate: www.Zounds Hearing Aidsmyplate.gov Have labs drawn Lifestyle Rere Vargas Note: [...] on filedocumented in this encounter Care Teams Lifeguard Relationship Specialty [place] [address] [address] Ophthalmology 04/06/16 documented as of this encounter
--- OUTSIDE RECORDS SUMMARY | 2024-04-03 02:28 | XMS_ITS | Encounter Summary ---
Author Organization [facility] Address [address] [place] [address] Care Team Providers Care County Coroner Name Role Phone Ricco Andrew MD Unavailable [phone] Reason for Visit * Reason Comments Refill Request Encounter Details Date Type Department Care Team (Late st Contact Info) Description 05/02/2017 Refill [facility] - Family Medicine [address] [place] [address] Rosana Solo MD [address] [address] Refill Request Social History Tobacco [...] 02/03/2017 Last OV- 03/01/2017 Future OV- 08/31/2017 TESTER documented in this encounter Plan of Treatment Upcoming Encounters Date Type Department Care Team (Late st Contact Info) Description 04/07/2024 10:00 AM AIR TESTER Office Visit [facility] [id number] [place] [address] [address] [place] [address] Evelin Blanco, SAP GATHERER-MEAT PROCESSOR [address] [facility] [address] [place] [address] 06/06/2024 2:00 PM CDT Office Visit [facility] [id number] [place] [address] [address] [place] [address] [place]en [place] [phone] [place] [address] [phone] documented as of this encounter Goals Goal Patient Goal Type Associated Problems Recent Progress Patient-Stated? Author Blood Pressure < 140/90 Blood Pressure 96/68(2023 2:34 PM AIR TESTER) Rere Vargas Note: Caring for Your [...] Related Tools, and click ? HBP Trackers.? 7-723-CAA-USA-1 or ( ) National Heart, Lung and Blood [place]: http://www.nhlbi.nih.gov/health/infoctr/index.htm Blood Pressure < 140/90 Blood Pressure 96/68(2023 2:34 PM AIR TESTER) Rere Vargas Note: Caring for Your [...] Related Tools, and click ? HBP Trackers.? 3-372-CJX-USA-1 or ( ) National Heart, Lung and Blood [place]: http://www.nhlbi.nih.gov/health/infoctr/index.htm Exercise 5X per week (30 min per time) Exercise No Rere Kaufman Note: The [place] College of Sports Medicine [...] diabetes: ? ? [place] Diabetes Association: www.diabetes.org 5-656-BABZVXIG ( ) ? ? [place] Diabetes Association-Support group line: www.professional.diabetes.org ? ? [place] Heart Association: www.heart.org or 7-853-NQD-[facility]-1 ( ) [employer] MyPlate: www.Konga Online Shopping Limitedmyplate.gov Have labs drawn Lifestyle Rere Vargas Note: [...] on filedocumented in this encounter Care Teams County Coroner Relationship Specialty [place] [address] [address] Ophthalmology 04/06/16 documented as of this encounter
--- OUTSIDE RECORDS SUMMARY | 2024-04-03 02:28 | XMS_ITS | Encounter Summary ---
Author Organization [facility] Address [address] [facility] [place] [address] Care Team Providers Care Tree Driller Name Role Phone Ricco Andrew MD Unavailable [phone] Reason for Visit * Reason Onset Date Comments MEDICATION REFILL 09/24/2016 Encounter Details Date Type Department Care Team (Late st Contact Info) Description 09/24/2016 Refill [facility] - Family Medicine [address] [place], [place] [id number] Rosana Solo MD [address] [place] [address] MEDICATION REFILL Social History Tobacco Use [...] st Contact Info) Description 04/07/2024 10:00 AM REGULATED PROGRAM MANAGER Office Visit [facility] [address] [facility] [address] [place] [address] Evelin Blanco APRN-CNP [address] [facility] [address] [place] [address] 06/06/2024 2:00 PM CDT Office Visit [facility] [address] [facility] [address] [place] [address] [place] [address] [facility] [address] [place] [address] documented as of this encounter Goals Goal Patient Goal Type Associated Problems Recent Progress Patient-Stated? Author Blood Pressure < 140/90 Blood Pressure 96/68(2023 2:34 PM REGULATED PROGRAM MANAGER) Rere Vargas Note: Caring for Your [...] Related Tools, and click ? HBP Trackers.? 6-887-JVS-USA-1 or ( ) National Heart, Lung and Blood [place]: http://www.nhlbi.nih.gov/health/infoctr/index.htm Blood Pressure < 140/90 Blood Pressure 96/68(2023 2:34 PM REGULATED PROGRAM MANAGER) Rere Vargas Note: Caring for Your [...] Related Tools, and click ? HBP Trackers.? 2-277-BCC-USA-1 or ( ) National Heart, Lung and Blood [place]: http://www.nhlbi.nih.gov/health/infoctr/index.htm Exercise 5X per week (30 min [...] ? ? [place] Diabetes Association: www.diabetes.org 2-794-RKUBHKCI ( ) ? ? [place] Diabetes Association-Support group line: www.professional.diabetes.org ? ? [place] Heart Association: www.heart.org or 3-706-YFJ-USA-1 ( ) Flexiroam MyPlate: www.Operative Mediamyplate.gov Have labs drawn Lifestyle Rere Vargas [...] on filedocumented in this encounter Care Teams Tree Driller Relationship Specialty [place] [address] [address] Ophthalmology 04/06/16 documented as of this encounter
--- OUTSIDE RECORDS SUMMARY | 2024-04-03 02:28 | XMS_ITS | Encounter Summary ---
Author Organization [facility] Address [address] [facility] [place] [address] Care Team Providers Care Shoemaking Cutter Name Role Phone Ricco Andrew MD Unavailable [phone] Reason for Visit * Reason Comments Diabetes 6 mos f/u Encounter Details Date Type Department Care Team (Late st Contact Info) Description 03/02/2018 1:00 PM OPERATOR/ASSISTANT FOREMAN Office Visit [facility] - Family Medicine [address] [place], [place] [phone] Rosana Solo MD [facility] [address] [address] Type 2 diabetes mellitus with [...] Comments Blood Pressure 102/68 03/02/2018 1:18 PM OPERATOR/ASSISTANT FOREMAN by Pulse 100 03/02/2018 1:00 PM OPERATOR/ASSISTANT FOREMAN Temperature 36.9 ??C (98.5 ??F) 03/02/2018 1:00 PM CS T Respiratory Rate 18 03/02/2018 1:00 PM OPERATOR/ASSISTANT FOREMAN Oxygen Saturation - - Inhaled Oxygen Concentration - - Weight 82.1 kg (181 lb) 03/02/2018 1:00 PM OPERATOR/ASSISTANT FOREMAN Height 165.1 cm (5' 5) 03/02/2018 1:00 PM OPERATOR/ASSISTANT FOREMAN Body Mass Index 30.12 03/02/2018 1:00 PM OPERATOR/ASSISTANT FOREMAN documented in this encounter Patient Instructions * Patient Instructions* Rosana Solo MD - 03/02/2018 1:22 PM OPERATOR/ASSISTANT FOREMAN Directions to [facility]: [facility] is located on the 1st floor of this building. Please take the elevators down to the lobby.As soon as you exit the elevator, take an immediate left out of the elevators and then go left downthe first hallway. [facility] is located in [address] on the left side just past the restrooms. They orders have been transmitted electronically, so the should have them. Caring For Your Diabetes ?? Follow a diabetic diet with healthy meals that are low salt, low fat, high fiber. For more information on a diabetic diet, please go to the [place] Diabetes Association website at www.diabetes.org and select [...] minutes if trying to lose weight) The [employer] College of [employer] recommends [...] issues. ?? See me in 6 months ATOR/ASSISTANT FOREMAN documented in this encounter Progress Notes * [...] given to the patient. Rosana Solo MD ATOR/ASSISTANT FOREMAN documented in this encounter Plan of Treatment Upcoming Encounters Date Type Department Care Team (Late st Contact Info) Description 04/07/2024 10:00 AM OPERATOR/ASSISTANT FOREMAN Office Visit [facility] [id number] [place] [phone] Evelin Blanco APRN-ORAL AND MAXILLOFACIAL PATHOLOGIST [id number] [place] [address] 06/06/2024 2:00 PM CDT Office Visit [facility] [id number] [place] [address] [place] [id number] [place] [phone] documented as of this encounter Goals Goal Patient Goal Type Associated Problems Recent Progress Patient-Stated? Author Blood Pressure < 140/90 Blood Pressure 96/68(2023 2:34 PM OPERATOR/ASSISTANT FOREMAN) Rere Vargas Note: Caring for Your High [...] Related Tools, and click ? HBP Trackers.? 2-697-AYJ-USA-1 or ( ) National Heart, Lung and Blood [place]: http://www.nhlbi.nih.gov/health/infoctr/index.htm Blood Pressure < 140/90 Blood Pressure 96/68(2023 2:34 PM OPERATOR/ASSISTANT FOREMAN) Rere Vargas Note: Caring for Your High [...] Related Tools, and click ? HBP Trackers.? 6-941-BWW-USA-1 or ( ) National Heart, Lung and Blood [place]: http://www.nhlbi.nih.gov/health/infoctr/index.htm Exercise 5X per week (30 min per time) Exercise Rere Vargas Note: The [employer] Sports [...] diabetes: ? ? [place] Diabetes Association: www.diabetes.org 4-180-QAZCELDA ( ) ? ? [place] Diabetes Association-Support group line: www.professional.diabetes.org ? ? [place] Heart Association: www.heart.org or 7-322-TCR-USA-1 ( ) SLEDVision MyPlate: www.Public Insight Corporationmyplate.gov Have labs drawn Lifestyle No Rere Kaufman [...] FREE T4 Routine 03/02/2018 1: 47 PM OPERATOR/ASSISTANT FOREMAN Type 2 diabetes mellitus with stage 3 chronic kidney disease, without long-term current use of insulin (HCC) MICROALB/CREAT RATIO URINE RANDOM PANEL Routine 03/02/2018 1:47 PM OPERATOR/ASSISTANT FOREMAN Type 2 diabetes mellitus with stage 3 chronic kidney disease, without long-term current use of insulin (HCC) HEMOGLOBIN A1C Routine 03/02/2018 1:47 PM OPERATOR/ASSISTANT FOREMAN Type 2 diabetes mellitus with stage 3 chronic kidney disease, without long-term current use of insulin (HCC) COMPREHENSIVE METABOLIC PANEL Routine 03/02/2018 1:47 PM OPERATOR/ASSISTANT FOREMAN Type 2 diabetes mellitus with stage 3 chronic kidney disease, without long-term current use of insulin (HCC) LIPID PROFILE Routine 03/02/2018 1:47 PM OPERATOR/ASSISTANT FOREMAN Type 2 diabetes mellitus with stage 3 chronic kidney disease, without long-term current use of insulin (HCC) documented in this encounter Results * MICROALB/CREAT RATIO URINE RANDOM PANEL (03/02/2018 1:47 PM OPERATOR/ASSISTANT FOREMAN) Creatinine Urine 81 mg/dL [facility] ACCOUNT BILL Microalbumin Urine 0.5 mg/dL [facility] ACCOUNT BILL Microalbumin/Crea tinine Ratio 6 <30 mg/g [facility] ACCOUNT BILL Urine URINE SPECIMEN OBTAINED BY CLEAN CATCH PROCEDURE / Unknown 03/02/2018 1:47 PM OPERATOR/ASSISTANT FOREMAN 03/02/2018 Narrative Resulting Agency Comment [facility] [address] ??[place] LINAR[place] [phone] Rosana Solo MD LAB - URINE CHEMISTR Y ORDERABLES [facility] ACCOUNT BILL [address] [place] [address] * (ABNORMAL) TSH REFLEX FREE T4 (03/02/2018 1:47 PM OPERATOR/ASSISTANT FOREMAN) TSH 3.99(H) 0.358 - 3.740 ulU/mL [facility] ACCOUNT BILL Blood BLOOD SPECIMEN / Unknown 03/02/2018 1:47 PM OPERATOR/ASSISTANT FOREMAN 03/02/2018 Narrative Resulting Agency Comment [facility] [address] [address] ??[place] LINAR[place] [phone] Rosana Solo MD LAB - CHEMISTRY MELYSSA CHAHAL Performing Organization Address City/[facility]/ZIP Co de Phone Number [facility] ACCOUNT BILL [address] [place] [address] * (ABNORMAL) HEMOGLOBIN A1C (03/02/2018 1:47 PM OPERATOR/ASSISTANT FOREMAN) Hemoglobin A1c 7.2(H) 4.2 - 6.3 % [facility] ACCOUNT BILL Comment:AVERAGE GLUCOSE MG/D L BLOOD 160 mg/dL Blood BLOOD SPECIMEN / Unknown 03/02/2018 1:47 PM OPERATOR/ASSISTANT FOREMAN 03/02/2018 Narrative Resulting Agency Comment [place] [address] [address] ??[place]a LINARES [phone] Rosana Solo MD LAB - CHEMISTRY MELYSSA CHAHAL Performing Organization Address [facility] Co de Phone Number [facility] ACCOUNT BILL [address] [place] [address] * (ABNORMAL) LIPID PROFILE (03/02/2018 1:47 PM OPERATOR/ASSISTANT FOREMAN) Cholesterol 171 <200 mg/dL [facility] ACCOUNT BILL Triglycerides 230(H) <150 mg/dL [facility] ACCOUNT BILL HDL Cholesterol 39(L) >40 mg/dL [facility] ACCOUNT BILL VLDL Calculated 46(H) <=30 mg/dL [facility] ACCOUNT BILL LDL Calculated 86 <130 mg/dL [facility] ACCOUNT BILL Comment:Not calculated Blood BLOOD SPECIMEN / Unknown 03/02/2018 1:47 PM OPERATOR/ASSISTANT FOREMAN 03/02/2018 Narrative Resulting Agency Comment [facility] [address] [address] ??[place] LINARES [phone] Rosana Solo MD LAB - CHEMISTRY MELYSSA CHAHAL Performing Organization Address City/[facility]/ZIP Co de Phone Number [facility] ACCOUNT BILL [address] [place] [address] * (ABNORMAL) COMPREHENSIVE METABOLIC PANEL (03/02/2018 1:47 PM OPERATOR/ASSISTANT FOREMAN) Glucose 149(H) 74 - 106 mg/dL [facility] [...] BLOOD SPECIMEN / Unknown 03/02/2018 1:47 PM OPERATOR/ASSISTANT FOREMAN 03/02/2018 Narrative Resulting Agency Comment Critical access hospital [address] [place] ??[facility] [phone] Rosana Solo MD LAB - CHEMISTRY MELYSSA CHAHAL [facility] Organization Address City/State/ZIP Co de Phone Number [facility] ACCOUNT BILL [address] [place] [address] documented in this encounter Visit Diagnoses Diagnosis [...] (pneumococcus) documented in this encounter Care Teams Shoemaking Cutter Relationship Specialty [place] [address] [facility] [facility] [address] [place] [address] Ophthalmology 04/06/16 documented as of this encounter
--- OUTSIDE RECORDS SUMMARY | 2024-04-03 02:28 | XMS_ITS | Encounter Summary ---
Author Organization [facility] Address [address] [facility] [place] [address] Care Team Providers Care Hospitality Coordinator Name Role Phone Ricco Andrew MD Unavailable [phone] Reason for Visit * Reason Comments Refill Request Encounter Details Date Type Department Care Team (Late st Contact Info) Description 10/17/2017 Refill [facility] - Family Medicine [address] [place] [address] Rosana Solo MD [facility] [address] [address] Refill Request Social History Tobacco [...] Contact Info) Description 04/07/2024 10:00 AM PRESS BREAKER Office Visit [facility] [address] [facility] [address] [place] [address] Evelin Blanco APRN-CNP [address] [facility] [address] [place] [address] 06/06/2024 2:00 PM CDT Office Visit [facility] [address] [facility] [address] [place] [address] [place] [address] [facility] [address] [place] [address] documented as of this encounter Goals Goal Patient Goal Type Associated Problems Recent Progress Patient-Stated? Author Blood Pressure < 140/90 Blood Pressure 96/68(2023 2:34 PM PRESS BREAKER) Rere Vargas Note: Caring for Your High [...] Related Tools, and click ? HBP Trackers.? 5-694-DCP-USA-1 or ( ) National Heart, Lung and Blood [place]: http://www.nhlbi.nih.gov/health/infoctr/index.htm Blood Pressure < 140/90 Blood Pressure 96/68(2023 2:34 PM PRESS BREAKER) Rere Vargas Note: Caring for Your High [...] Related Tools, and click ? HBP Trackers.? 2-343-NUT-USA-1 or ( ) National Heart, Lung and Blood [place]: http://www.nhlbi.nih.gov/health/infoctr/index.htm Exercise 5X per week (30 min [...] diabetes: ? ? [place] Diabetes Association: www.diabetes.org 0-260-UBBITQPQ ( ) ? ? [place] Diabetes Association-Support group line: www.professional.diabetes.org ? ? [place] Heart Association: www.heart.org or 3-907-HHJ-USA-1 ( ) [employer] MyPlate: www.Hua Kangmyplate.gov Have labs drawn Lifestyle Rere Vargas Note: [...] on filedocumented in this encounter Care Teams Hospitality Coordinator Relationship Specialty [place] [address] [address] Ophthalmology 04/06/16 documented as of this encounter
--- OUTSIDE RECORDS SUMMARY | 2024-04-03 02:28 | XMS_ITS | Encounter Summary ---
Author Organization [facility] Address [address] [facility] [place] [address] Care Team Providers Care Audio Technician Name Role Phone Ricco Andrew MD Unavailable [phone] Reason for Referral * Procedure (Routine) - [...] Solo MD [address] [place] [address] Referral ID Status Reason Start Date Expiration Date Visits Re quested Visits Authorized [id number] Closed 04/06/2016 10/03/2016 1 1 UP AND DELIVERY DRIVER Reason for Visit * Reason Comments Pre-op Clearance retina surgery 04/20 Encounter Details Date Type Department Care Team (Latest Contact Info) Description 04/06/2016 2:20 PM PICK UP AND DELIVERY DRIVER Office Visit [facility] - Family Medicine [address] [place] [address] Rosana Solo MD [address] [place] [address] Pre-operative cardiovascular examination (Primary Dx); [...] Comments Blood Pressure 106/72 04/06/2016 2:15 PM PICK UP AND DELIVERY DRIVER Pulse 76 04/06/2016 2:15 PM PICK UP AND DELIVERY DRIVER Temperature 36.4 ??C (97.6 ??F) 04/06/2016 2:15 PM CS T Respiratory Rate 16 04/06/2016 2:15 PM PICK UP AND DELIVERY DRIVER Oxygen Saturation - - Inhaled Oxygen Concentration - - Weight 75.3 kg (166 lb) 04/06/2016 2:15 PM PICK UP AND DELIVERY DRIVER Height 165.1 cm (5' 5) 04/06/2016 2:15 PM PICK UP AND DELIVERY DRIVER Body Mass Index 27.62 04/06/2016 2:15 PM PICK UP AND DELIVERY DRIVER documented in this encounter Patient Instructions * Patient Instructions* Rosana Solo MD - 04/06/2016 2:55 PM PICK UP AND DELIVERY DRIVER Caring For Your Diabetes ?? Get labs done today at [facility] Directions to [facility]: [facility] is located on the 1st floor of this building. Please take the elevators down to the lobby.As soon as you exit the elevator, take an immediate left out of the elevators and then go left downthe first hallway. [facility] is located in [address] on the left side just past the restrooms. They orders have been transmitted electronically, so the should have them. ?? Follow a diabetic diet with healthy meals that are low salt, low fat, high fiber. For more information on a diabetic diet, please go to the [place] Diabetes Association website at www.diabetes.org and select [...] minutes if trying to lose weight) The [place] College of Sports Medicine recommends [...] to Related Tools, and click ???HBP Trackers.?? 5-250-OPR-USA-1 or ( ) National Heart, Lung and Blood [place]: http://www.nhlbi.nih.gov/health/infoctr/index.htm ??? Exercise 5X per week (30 min per time) The [place] College of Sports Medicine recommends [...] and how to manage your diabetes: ??? [place] Diabetes Association: www.diabetes.org 3-738-ZERGZOYE ( ) ??? [place] Diabetes Association-Support group line: www.professional.diabetes.org ??? [place] Heart Association: www.heart.org or 6-014-ZCF-USA-1 ( ) [employer]ent MyPlate: www.choosemyplate.gov ?? Continue current medications: Yes ?? Please call office during routine office hours if any questions or concerns. ?? After hours you may contact us through the exchange at for more significant issues. ?? See me in 3 months UP AND DELIVERY DRIVER documented in this encounter Progress Notes * Rere Kaufman - 04/07/2016 3:07 PM CST Pt notified and clearance faxed UP AND DELIVERY DRIVER * Rosana Solo MD - 04/07/2016 2:32 [...] bleeding risks with surgery Blood counts normal UP AND DELIVERY DRIVER * Rosana Solo MD - 04/06/2016 2:38 [...] Plan: RISK ADJUSTED VISIT, EKG 12- LEAD, NJ ELECTROCARDIOGRAM, COMPLETE, CBC W AUTO DIFFERENTIAL, COMPREHENSIVE [...] - Plan: RISK ADJUSTED VISIT, EKG 12-LEAD, NJ ELECTROCARDIOGRAM, COMPLETE Type 2 diabetes mellitus with diabetic neuropathy, without long-term current use of insulin - Plan: RISK ADJUSTED VISIT, EKG 12-LEAD, NJ ELECTROCARDIOGRAM, COMPLETE Hypothyroidism, adult - Dose adjusted 2 months ago. Recheck TSH. Adjust if needed - Plan: RISK ADJUSTED VISIT, TSH Benign hypertension with chronic kidney disease - Controlled. Continue Rx for renal protection - Plan: RISK ADJUSTED VISIT, EKG 12-LEAD, [place] ELECTROCARDIOGRAM, COMPLETE Alzheimer's dementia without behavioral disturbance, [...] to Dr. Brito and Dr. Andrew - [phone] Rosana Solo MD UP AND DELIVERY DRIVER * Rere Kaufman - 04/06/2016 2:19 PM CST Patient came into the office today for pre op clearance for retina surgery on 04/20/16. Blood pressure 106/72, pulse 76, temperature 97.6 ??F, temperature source Oral, resp. rate 16, height 1.651 m (5' 5), weight 75.3 kg (166 lb). Depression: PHQ-2:TOTAL POINT SCORE: 0 PHQ-9: UP AND DELIVERY DRIVER documented in this encounter Plan of Treatment Upcoming Encounters Date Type Department Care Team (Late st Contact Info) Description 04/07/2024 10:00 AM PICK UP AND DELIVERY DRIVER Office Visit [facility] [id number] [place] [address] [address] [place] [address] Evelin Blanco, ALLIGATOR SHEAR OPERATOR-SOLE LEVELER MACHINE [address] [facility] [address] [place] [address] 06/06/2024 2:00 PM CDT Office Visit [facility] [id number] [place] [address] [address] [place] [address] Chris Aden MD [address] [place] [address] documented as of this encounter Goals Goal Patient Goal Type Associated Problems Recent Progress Patient-Stated? Author Blood Pressure < 140/90 Blood Pressure 96/68(2023 2:34 PM PICK UP AND DELIVERY DRIVER) Rere Vargas Note: Caring for Your [...] Related Tools, and click ? HBP Trackers.? 2-598-HWE-USA-1 or ( ) National Heart, Lung and Blood [place]: http://www.nhlbi.nih.gov/health/infoctr/index.htm Exercise 5X per week (30 min [...] diabetes: ? ? [place] Diabetes Association: www.diabetes.org 1-123-HANFDKKU ( ) ? ? [place] Diabetes Association-Support group line: www.professional.diabetes.org ? ? [place] Heart Association: www.heart.org or 2-674-RRH-USA-1 ( ) Navent MyPlate: www.Northeast Ohio Medical Universitymyplate.gov documented as of this encounter Procedures Procedure Name Priority Date/Time Associated Diagnosis Comments PT-INR Routine 04/06/2016 3:36 PM PICK UP AND DELIVERY DRIVER Pre-operative cardiovascular examination CBC W AUTO DIFFERENTIAL Routine 04/06/2016 3:36 PM PICK UP AND DELIVERY DRIVER Pre-operative cardiovascular examination COMPREHENSIVE METABOLIC PANEL Routine 04/06/2016 3:36 PM PICK UP AND DELIVERY DRIVER Pre-operative cardiovascular examination TSH Routine 04/06/2016 3:36 PM PICK UP AND DELIVERY DRIVER Pre-operative cardiovascular examination Hypothyroidism, adult EKG 12-LEAD Routine 04/06/2016 Pre-operative cardiovascular examination Type 2 diabetes mellitus with stage 3 chronic kidney disease, without long-term current use of insulin (HCC) Type 2 diabetes mellitus with diabetic neuropathy, without long-term current use of insulin (HCC) Benign hypertension with chronic kidney disease documented in this encounter Results * PT-INR (04/06/2016 3:36 PM PICK UP AND DELIVERY DRIVER) INR 0.9 0.9 - 1.1 [facility] ACCOUNT BILL Comment: Conventional Warfarin Anticoagulant Therapy: INR Reference Range: ??2.0-3.0 Intensive Warfarin Anticoagulant Therapy: INR Reference Range: ? 2.5-3.5 PT 9.7 9.5 - 11.6 sec [facility] ACCOUNT BILL Blood BLOOD SPECIMEN / Unknown 04/06/2016 3:36 PM PICK UP AND DELIVERY DRIVER 04/06/2016 Narrative Resulting Agency Comment [facility] [address] ??[place] LINARES [phone] Rosana Solo MD LAB - COAGULATION OR DERABLES [facility] ACCOUNT BILL [address] [place] [address] * TSH (04/06/2016 3:36 PM PICK UP AND DELIVERY DRIVER) TSH 2.16 0.358 - 3.740 uIU/mL [facility] ACCOUNT BILL Blood BLOOD SPECIMEN / Unknown 04/06/2016 3:36 PM PICK UP AND DELIVERY DRIVER 04/06/2016 Narrative Resulting Agency Comment [facility] [address] ??Ana LINARES [phone] Rosana Solo MD LAB - CHEMISTRY ORDE RABLES Performing Organization Address City/[facility]/ZIP Co de Phone Number [facility] ACCOUNT BILL [address] [place] [address] * (ABNORMAL) COMPREHENSIVE METABOLIC PANEL (04/06/2016 3:36 PM PICK UP AND DELIVERY DRIVER) Glucose 112(H) 74 - 106 mg/dL [facility] [...] BLOOD SPECIMEN / Unknown 04/06/2016 3:36 PM PICK UP AND DELIVERY DRIVER 04/06/2016 Narrative Resulting Agency Comment [facility] [address] [facility] ??Ana LINARES [phone] Rosana Solo MD LAB - CHEMISTRY MELYSSA CHAHAL [facility] ACCOUNT BILL [address] [place] [address] * (ABNORMAL) CBC W AUTO DIFFERENTIAL (04/06/2016 3:36 PM PICK UP AND DELIVERY DRIVER) WBC 5.3 4.4 - 10.7 x10E9/L [facility] [...] BLOOD SPECIMEN / Unknown 04/06/2016 3:36 PM PICK UP AND DELIVERY DRIVER 04/06/2016 Narrative Resulting Agency Comment [facility] [address] [facility] ??[place] [phone] Rosana Solo MD LAB - HEMATOLOGY ORD ERABLES Performing Organization Address City/[facility]/ZIP Co de Phone Number [facility] ACCOUNT BILL [address] [place] [address] * EKG 12-LEAD (04/06/2016) 04/06/2016 Narrative [facility] RESULT SCAN - 04/06/2016 NSR, HR 81. No acute ST elevation or depression. No Q waves. No T wave inversion. Has subtle rsR' in V1 Rosana Solo MD ECG ORDERABLES Performing Organization Address City/[facility]/ZIP Co de Phone Number [facility] RESULT [...] (HCC) documented in this encounter Care Teams Audio Technician Relationship Specialty [place] [address] [address] Ophthalmology 04/06/16 documented as of this encounter
--- OUTSIDE RECORDS SUMMARY | 2024-04-03 02:28 | XMS_ITS | Encounter Summary ---
Author Organization [facility] Address [address] [facility] [place] [address] Care Team Providers Care Pattern Drafter Name Role Phone Ricco Andrew MD Unavailable [phone] Reason for Visit * Reason Comments Refill Request Encounter Details Date Type Department Care Team (Late st Contact Info) Description 07/31/2017 Refill [facility] - Family Medicine [address] [place], [place] [id number] Rosana Solo MD [address] [address] Refill Request Social History Tobacco [...] st Contact Info) Description 04/07/2024 10:00 AM OBIEE LEAD DEVELOPER Office Visit [facility] [id number] [place] [address] [address] [place] [address] Evelin Blanco, SUPERVISOR MODEL MAKING-MEDIA RELATIONS INTERN [address] [facility] [address] [place] [address] 06/06/2024 2:00 PM CDT Office Visit [facility] [phone] [place] [address] [address] [place] [address] Chris Aden MD [id number] [place] [address] [address] [place] [phone] documented as of this encounter Goals Goal Patient Goal Type Associated Problems Recent Progress Patient-Stated? Author Blood Pressure < 140/90 Blood Pressure 96/68(2023 2:34 PM OBIEE LEAD DEVELOPER) Rere Vargas Note: Caring for Your [...] Related Tools, and click ? HBP Trackers.? 3-772-LII-USA-1 or ( ) National Heart, Lung and Blood [place]: http://www.nhlbi.nih.gov/health/infoctr/index.htm Blood Pressure < 140/90 Blood Pressure 96/68(2023 2:34 PM OBIEE LEAD DEVELOPER) Rere Vargas Note: Caring for Your [...] Related Tools, and click ? HBP Trackers.? 3-633-PRI-USA-1 or ( ) National Heart, Lung and Blood [place]: http://www.nhlbi.nih.gov/health/infoctr/index.htm Exercise 5X per week (30 min per time) Exercise No Rere Kaufman Note: The Australian College of Sports Medicine [...] diabetes: ? ? [place] Diabetes Association: www.diabetes.org 1-812-TUKWXFUJ ( ) ? ? [place] Diabetes Association-Support group line: www.professional.diabetes.org ? ? Australian Heart Association: www.heart.org or 1-383-[facility]-1 ( ) [employer] MyPlate: www.Classiphixmyplate.gov Have labs drawn Lifestyle No Rere Kaufman [...] on filedocumented in this encounter Care Teams Pattern Drafter Relationship Specialty [place] [address] [phone] Ophthalmology 04/06/16 documented as of this encounter
--- OUTSIDE RECORDS SUMMARY | 2024-04-03 02:28 | XMS_ITS | Encounter Summary ---
Author Organization [facility] Address [address] [facility] [place] [address] Care Team Providers Care Regulatory And Compliance Technician Name Role Phone Ricco Andrew MD Unavailable [phone] Reason for Visit * Reason Comments Refill Request Encounter Details Date Type Department Care Team (Late st Contact Info) Description 07/13/2016 Refill [facility] - Family Medicine [address] [place], [place] [id number] Chauncey Herrera MD [address] [place] [address] Refill Request Social History Tobacco Use [...] st Contact Info) Description 04/07/2024 10:00 AM INSTRUMENTATION TECHNICIAN Office Visit [facility] [address] [place] [address] Evelin Blanco, JOSETTE-INTERSTATE PLANNER [phone] [place] [address] 06/06/2024 2:00 PM CDT Office Visit [facility] [address] [place] [address] Chris Aden MD [address] [place] [phone] documented as of this encounter Goals Goal Patient Goal Type Associated Problems Recent Progress Patient-Stated? Author Blood Pressure < 140/90 Blood Pressure 96/68(2023 2:34 PM INSTRUMENTATION TECHNICIAN) Rere Vargas Note: Caring for Your [...] Related Tools, and click ? HBP Trackers.? 3-779-XHU-USA-1 or ( ) National Heart, Lung and Blood [place]: http://www.nhlbi.nih.gov/health/infoctr/index.htm Exercise 5X per week (30 min per time) Exercise Rere Vargas Note: The [place] College of Sports Medicine [...] diabetes: ? ? [place] Diabetes Association: www.diabetes.org 3-110-NQZGAXMA ( ) ? ? [place] Diabetes Association-Support group line: www.professional.diabetes.org ? ? [place] Heart Association: www.heart.org or 5-126-YQG-USA-1 ( ) EXO5 MyPlate: www.choosemyplate.gov documented as of this encounter Visit Diagnoses Not on filedocumented in this encounter Care Teams Regulatory And Compliance Technician Relationship Specialty [place] [address] [address] Ophthalmology 04/06/16 documented as of this encounter
--- OUTSIDE RECORDS SUMMARY | 2024-04-03 02:28 | XMS_ITS | Encounter Summary ---
Author Organization [facility] Address [address] [facility] [place] [address] Care Team Providers Care Live In Caregiver Name Role Phone Unavailable Primary Care Provider Unavailabl e Reason for Visit * Reason Onset Date Comments MEDICATION REFILL 02/24/2016 Encounter Details Date Type Department Care Team (Late st Contact Info) Description 02/24/2016 Refill [facility] - Family Medicine [address] [place], [place] [phone] Chauncey Herrera MD [address] [place] [address] [address] [place] [address] MEDICATION REFILL Social History Tobacco [...] Brain Disease Authorizing Provider: CHAUNCEY HERRERA MD THERAPIST * Telephone Encounter - Guy Roger - [...] Refill: 02/05/2016 Last OV: 02/05/2016 Next OV:05/07/16 THERAPIST documented in this encounter Plan of Treatment Upcoming Encounters Date Type Department Care Team (Late st Contact Info) Description 04/07/2024 10:00 AM ARTS THERAPIST Office Visit [address] [address] Evelin Blanco, TOUR DRIVER-FLATWORK FOLDER [id number] [place] [address] 06/06/2024 2:00 PM CDT Office Visit [address] [address] Chris Aden [place] [id number] [place] [address] documented as of this encounter Goals Goal Patient Goal Type Associated Problems Recent Progress Patient-Stated? Author Blood Pressure < 140/90 Blood Pressure 96/68(2023 2:34 PM ARTS THERAPIST) Rere Vargas Note: Caring for Your [...] Related Tools, and click ? HBP Trackers.? 8-039-LHB-USA-1 or ( ) National Heart, Lung and Blood [place]: http://www.nhlbi.nih.gov/health/infoctr/index.htm Exercise 5X per week (30 min [...] ? ? [place] Diabetes Association: www.diabetes.org 8-217-YWXTVDXD ( ) ? ? [place] African Diabetes Association-Support group line: www.professional.diabetes.org ? ? South African Heart Association: www.heart.org or 3-238-FBT-USA-1 ( ) USDA MyPlate: www.choosemyplate.gov documented as of this encounter Visit Diagnoses Diagnosis Alzheimer's dementia without behavioral disturbance, unspecified timing of dementia onset (HCC) documented in this encounter
--- OUTSIDE RECORDS SUMMARY | 2024-04-03 02:28 | XMS_ITS ---
Author Organization [facility] Address [address] [facility] [place] [address] Care Team Providers Care Application Systems Engineer Name Role Phone Ricco Andrew MD Unavailable [phone] Fawn Rmaon DPM Unavailable [phone] Chris Aden MD Primary Care Provider [phone] Chris Aden MD Unavailable Acute DC - [facility] Status:Closed (Closed) Start date:02/28/2024 Enrollment date:02/28/2024 Enrollment reason:Identified using hospital discharge data End date:02/28/2024 Close reason:Follow by dynamic observation Continued Care and Services Coordination
--- OUTSIDE RECORDS SUMMARY | 2024-04-03 02:28 | XMS_ITS | Encounter Summary ---
Author Organization [facility] Address [address] [facility] [place] [address] Care Team Providers Care Drum Sander Name Role Phone Ricco Andrew MD Unavailable [phone] Reason for Visit * Reason Comments Refill Request Encounter Details Date Type Department Care Team (Late st Contact Info) Description 04/25/2017 Refill [facility] - Family Medicine [address] [place] [address] Rosana Solo MD [address] [address] Refill Request Social History Tobacco [...] 01/25/2017 Last OV- 03/01/2017 Future OV- 08/31/2017 OOD PROCESS WORKER documented in this encounter Plan of Treatment Upcoming Encounters Date Type Department Care Team (Late st Contact Info) Description 04/07/2024 10:00 AM SEAFOOD PROCESS WORKER Office Visit [facility] [id number] [place] [address] [address] [place] [address] Evelin Blanco, HUMAN RESOURCES EXECUTIVE ASSISTANT-ADOPTION SPECIALIST [address] [facility] [address] [place] [address] 06/06/2024 2:00 PM CDT Office Visit [facility] [address] [place] [address] [address] [place] [address] Chris Aden MD [phone] [place] [phone] documented as of this encounter Goals Goal Patient Goal Type Associated Problems Recent Progress Patient-Stated? Author Blood Pressure < 140/90 Blood Pressure 96/68(2023 2:34 PM SEAFOOD PROCESS WORKER) Rere Vargas Note: Caring for Your [...] Related Tools, and click ? HBP Trackers.? 2-356-XLP-USA-1 or ( ) National Heart, Lung and Blood [place]: http://www.nhlbi.nih.gov/health/infoctr/index.htm Blood Pressure < 140/90 Blood Pressure 96/68(2023 2:34 PM SEAFOOD PROCESS WORKER) Rere Vargas Note: Caring for Your [...] Related Tools, and click ? HBP Trackers.? 2-438-AUY-USA-1 or ( ) National Heart, Lung and Blood [place]: http://www.nhlbi.nih.gov/health/infoctr/index.htm Exercise 5X per week (30 min [...] Of [place] Diabetes Association: www.diabetes.org 5-490-AICCQROF ( ) ? ? Citizen Of [place] Diabetes Association-Support group line: www.professional.diabetes.org ? ? Citizen Of [place] Heart Association: www.heart.org or 8-561-APZ-USA-1 ( ) MOO.COM MyPlate: www.CodeSealermyplate.gov Have labs drawn Lifestyle No Rere Kaufman [...] on filedocumented in this encounter Care Teams Drum Sander Relationship Specialty [place] [address] [phone] Ophthalmology 04/06/16 documented as of this encounter
--- OUTSIDE RECORDS SUMMARY | 2024-04-03 02:28 | XMS_ITS | Encounter Summary ---
Author Organization [facility] Address [address] [place] [address] Care Team Providers Care Saturator Tender Name Role Phone Ricco Andrew MD Unavailable [phone] Reason for Visit * Reason Comments Refill Request Encounter Details Date Type Department Care Team (Late st Contact Info) Description 01/30/2017 Refill [facility] - Family Medicine [address] [place] [address] Chauncey Herrera MD [facility] [address] Refill Request Social History Tobacco [...] Refusal: Patient has requested refill too soon HEALTH CLINICAL SUPERVISOR * Telephone Encounter - Tiffany Ritter - 02/01/2017 8:49 AM CST Last Refill: 07/23/16...01/25/17(glipizide) Last OV: 07/23/16 Upcoming OV: none HEALTH CLINICAL SUPERVISOR documented in this encounter Plan of Treatment Upcoming Encounters Date Type Department Care Team (Late st Contact Info) Description 04/07/2024 10:00 AM HOME HEALTH CLINICAL SUPERVISOR Office Visit [facility] [address] [place] [address] Evelin Blanco, JOSETTE-RADIOTELEGRAPH OPERATOR SERVICER [phone] [place] [address] 06/06/2024 2:00 PM CDT Office Visit [facility] [address] [place] [address] Chris Aden MD [address] [place] [address] documented as of this encounter Goals Goal Patient Goal Type Associated Problems Recent Progress Patient-Stated? Author Blood Pressure < 140/90 Blood Pressure 96/68(2023 2:34 PM HOME HEALTH CLINICAL SUPERVISOR) Rere Vargas Note: Caring for Your [...] Related Tools, and click ? HBP Trackers.? 7-305-DZX-USA-1 or ( ) National Heart, Lung and Blood [place]: http://www.nhlbi.nih.gov/health/infoctr/index.htm Blood Pressure < 140/90 Blood Pressure 96/68(2023 2:34 PM HOME HEALTH CLINICAL SUPERVISOR) Rere Vargas Note: Caring for Your [...] Related Tools, and click ? HBP Trackers.? 4-974-BCL-USA-1 or ( ) National Heart, Lung and Blood [place]: http://www.nhlbi.nih.gov/health/infoctr/index.htm Exercise 5X per week (30 min [...] diabetes: ? ? [place]anese Diabetes Association: www.diabetes.org 4-349-CGSXCEQB ( ) ? ? Bh[place]anese Diabetes Association-Support group line: www.professional.diabetes.org ? ? [place]anese Heart Association: www.heart.org or 3-315-GAL-USA-1 ( ) [employer]Net MyPlate: www.Ask.commyplate.gov Have labs drawn Lifestyle Rere Vargas Note: [...] on filedocumented in this encounter Care Teams Saturator Tender Relationship Specialty [place] [address] [phone] Ophthalmology 04/06/16 documented as of this encounter
--- OUTSIDE RECORDS SUMMARY | 2024-04-03 02:28 | XMS_ITS | Encounter Summary ---
Author Organization [facility] Address [address] [facility] [place] [address] Care Team Providers Care Firer Kiln Name Role Phone Ricco Andrew MD Unavailable [phone] Reason for Visit * Reason Onset Date Comments MEDICATION REFILL 02/01/2017 Encounter Details Date Type Department Care Team (Late st Contact Info) Description 02/01/2017 Refill [facility] - Family Medicine [address] [place], [place] [phone] Rosana Solo MD [address] [facility] [address] [place] [address] MEDICATION REFILL Social History Tobacco [...] for Loratadine and lisinopril be sent to [facility] pharmacy in [facility]. Daughter is requesting a call once done. Pt scheduled for 03/01/17 for follow up AL SERVICES MANAGER documented in this encounter Plan of Treatment Upcoming Encounters Date Type Department Care Team (Late st Contact Info) Description 04/07/2024 10:00 AM FISCAL SERVICES MANAGER Office Visit [facility] [address] [facility] [address] [place] [address] Evelin Blanco APRN-CNP [address] [facility] [address] [place] [address] 06/06/2024 2:00 PM CDT Office Visit [facility] [address] [facility] [address] [place] [address] [place] [address] [facility] [address] [place] [address] documented as of this encounter Goals Goal Patient Goal Type Associated Problems Recent Progress Patient-Stated? Author Blood Pressure < 140/90 Blood Pressure 96/68(2023 2:34 PM FISCAL SERVICES MANAGER) Rere Vargas Note: Caring for Your [...] Related Tools, and click ? HBP Trackers.? 5-467-ZOQ-USA-1 or ( ) National Heart, Lung and Blood [place]: http://www.nhlbi.nih.gov/health/infoctr/index.htm Blood Pressure < 140/90 Blood Pressure 96/68(2023 2:34 PM FISCAL SERVICES MANAGER) Rere Vargas Note: Caring for Your [...] Related Tools, and click ? HBP Trackers.? 7-263-GII-USA-1 or ( ) National Heart, Lung and Blood [place]: http://www.nhlbi.nih.gov/health/infoctr/index.htm Exercise 5X per week (30 min [...] diabetes: ? ? [place] Diabetes Association: www.diabetes.org 3-143-EGCRVKAM ( ) ? ? [place] Diabetes Association-Support group line: www.professional.diabetes.org ? ? [place] Heart Association: www.heart.org or 0-081-CDH-USA-1 ( ) dough MyPlate: www.[employer] Medicinemyplate.gov Have labs drawn Lifestyle Rere Vargas Note: [...] on filedocumented in this encounter Care Teams Firer Kiln Relationship Specialty [place] [address] [phone] Ophthalmology 04/06/16 documented as of this encounter
--- OUTSIDE RECORDS SUMMARY | 2024-04-03 02:28 | XMS_ITS | Encounter Summary ---
Author Organization [facility] Address [address] [facility] [place] [address] Care Team Providers Care Private Mortgage Banker Safe Name Role Phone Ricco Andrew MD Unavailable [phone] Reason for Visit * Reason Comments Refill Request Encounter Details Date Type Department Care Team (Late st Contact Info) Description 11/11/2017 Refill [facility] - Family Medicine [address] [place] [address] Rosana Solo MD [address] [address] Refill Request Social History [...] Info) Description 04/07/2024 10:00 AM DIRECTOR OF PHILANTHROPY Office Visit [facility] [address] [place] [address] [address] [place] [address] Evelin Blanco, ARCHITECTURAL MODEL MAKER-TORCH SHEARER [address] [facility] [address] [place] [address] 06/06/2024 2:00 PM CDT Office Visit [facility] [address] [place] [address] [address] [place] [address] Chris Aden [place] [phone] [place] [address] [address] [place] [phone] documented as of this encounter Goals Goal Patient Goal Type Associated Problems Recent Progress Patient-Stated? Author Blood Pressure < 140/90 Blood Pressure 96/68(2023 2:34 PM DIRECTOR OF PHILANTHROPY) Rere Vargas Note: Caring for Your High [...] Related Tools, and click ? HBP Trackers.? 7-304-GUI-USA-1 or ( ) National Heart, Lung and Blood [place]: http://www.nhlbi.nih.gov/health/infoctr/index.htm Blood Pressure < 140/90 Blood Pressure 96/68(2023 2:34 PM DIRECTOR OF PHILANTHROPY) Rere Vargas Note: Caring for Your High [...] Related Tools, and click ? HBP Trackers.? 2-469-ZBD-USA-1 or ( ) National Heart, Lung and Blood [place]: http://www.nhlbi.nih.gov/health/infoctr/index.htm Exercise 5X per week (30 min per time) Exercise No Rere Kaufman Note: The Pakistani College of Sports Medicine [...] diabetes: ? ? [place] Diabetes Association: www.diabetes.org 1-664-MTMRZAMH ( ) ? ? [place] Diabetes Association-Support group line: www.professional.diabetes.org ? ? Pakistani Heart Association: www.heart.org or 5-895-[facility]-1 ( ) [employer]aven[employer] MyPlate: www.EPAC Software Technologiesmyplate.gov Have labs drawn Lifestyle No Rere [...] on filedocumented in this encounter Care Teams Private Mortgage Banker Safe Relationship Specialty [place] [address] [phone] Ophthalmology 04/06/16 documented as of this encounter
--- OUTSIDE RECORDS SUMMARY | 2024-04-03 02:28 | XMS_ITS | Encounter Summary ---
Author Organization [facility] Address [address] [place] [address] Care Team Providers Care Drapery Examiner Name Role Phone Ricco Andrew MD Unavailable [phone] Reason for Visit * Reason Comments Refill Request Encounter Details Date Type Department Care Team (Late st Contact Info) Description 05/18/2017 Refill [facility] - Family Medicine [address] [place] [address] Rosana Solo MD [address] [address] Refill Request Social History Tobacco [...] 02/21/2017 Last OV- 03/01/2017 Future OV- 08/31/2017 GATION SERVICES MANAGER documented in this encounter Plan of Treatment Upcoming Encounters Date Type Department Care Team (Late st Contact Info) Description 04/07/2024 10:00 AM LITIGATION SERVICES MANAGER Office Visit [facility] [phone] [place] [address] [address] [place] [address] Evelin Blanco, OCCUPATIONAL THERAPIST AIDE-SLIDE MAKER [address] [facility] [address] [place] [address] 06/06/2024 2:00 PM CDT Office Visit [facility] [address] [place] [address] [address] [place] [address] Chris Aden MD [phone] [place] [address] [address] [place] [address] documented as of this encounter Goals Goal Patient Goal Type Associated Problems Recent Progress Patient-Stated? Author Blood Pressure < 140/90 Blood Pressure 96/68(2023 2:34 PM LITIGATION SERVICES MANAGER) Rere Vargas Note: Caring for [...] Related Tools, and click ? HBP Trackers.? 7-470-PLP-USA-1 or ( ) National Heart, Lung and Blood [place]: http://www.nhlbi.nih.gov/health/infoctr/index.htm Blood Pressure < 140/90 Blood Pressure 96/68(2023 2:34 PM LITIGATION SERVICES MANAGER) Rere Vargas Note: Caring for [...] Related Tools, and click ? HBP Trackers.? 3-237-LTP-USA-1 or ( ) National Heart, Lung and Blood [place]: http://www.nhlbi.nih.gov/health/infoctr/index.htm Exercise 5X per week (30 min per time) Exercise No Rere Kaufman Note: The [place] College of Sports Medicine [...] diabetes: ? ? [place] Diabetes Association: www.diabetes.org 5-102-XRQAIDFW ( ) ? ? [place] Diabetes Association-Support group line: www.professional.diabetes.org ? ? [place] Heart Association: www.heart.org or 0-760-XKQ-USA-1 ( ) [employer]ideBio MyPlate: www.Soonrmyplate.gov Have labs drawn Lifestyle No Rere Kaufman [...] on filedocumented in this encounter Care Teams Drapery Examiner Relationship Specialty [place] [address] [address] Ophthalmology 04/06/16 documented as of this encounter
--- OUTSIDE RECORDS SUMMARY | 2024-04-03 02:28 | XMS_ITS | Encounter Summary ---
Author Organization [facility] Address [address] [facility] [place] [address] Care Team Providers Care Fire Management Technician Name Role Phone Ricco Andrew MD Unavailable [phone] Encounter Details Date Type Department Care Team (Latest Contact Info) Description 04/07/2018 4:20 PM GROUNDS WORKER - 04/07/2018 11:59 PM [facility] Hospital Encounter [facility] - Radiology [id number] [place] [address] Rosana Solo MD [address] [facility] [address] [place] [address] Discharge Disposition: Home or Self [...] st Contact Info) Description 04/07/2024 10:00 AM GROUNDS WORKER Office Visit [facility] [id number] [place] [address] Evelin Blanco, RN OFFICE-ULTRASOUND MANAGER [address] [facility] [address] [place] [address] 06/06/2024 2:00 PM CDT Office Visit [facility] [address] [facility] [address] [place] [address] [place] [address] [address] documented as of this encounter Goals Goal Patient Goal Type Associated Problems Recent Progress Patient-Stated? Author Blood Pressure < 140/90 Blood Pressure 96/68(2023 2:34 PM GROUNDS WORKER) Rere Vargas Note: Caring for Your [...] Where can I go for more information? [place] Heart Association National Center: http://www.americanheart.org 1. In the top header, click ? Conditions? . 2. In the top header, click ? high blood pressure.? 3. For a printable blood pressure tracker, scroll toward the bottom of the page to Related Tools, and click ? HBP Trackers.? 8-389-UDW-USA-1 or ( ) National Heart, Lung and Blood [place]: http://www.nhlbi.nih.gov/health/infoctr/index.htm Blood Pressure < 140/90 Blood Pressure 96/68(2023 2:34 PM GROUNDS WORKER) Rere Vargas Note: Caring for Your [...] Where can I go for more information? [place] Heart Association National Center: http://www.americanheart.org 1. In the top header, click ? Conditions? . 2. In the top header, click ? high blood pressure.? 3. For a printable blood pressure tracker, scroll toward the bottom of the page to Related Tools, and click ? HBP Trackers.? 0-286-XIX-USA-1 or ( ) National Heart, Lung and Blood [place]: http://www.nhlbi.nih.gov/health/infoctr/index.htm Exercise 5X per week (30 min per time) Exercise Rere Vargas Note: The [place] College of Sports Medicine recommends all adults [...] how to manage your diabetes: ? ? [place] Diabetes Association: www.diabetes.org 4-015-HIJUGQFC ( ) ? ? [place] Diabetes Association-Support group line: www.professional.diabetes.org ? ? [place] Heart Association: www.heart.org or 2-854-IVQ-USA-1 ( ) [employer]str MyPlate: www.choosemyplate.gov Have labs drawn Lifestyle No [...] XR CHEST 2VW Routine 04/07/2018 4:35 PM GROUNDS WORKER Acute bronchitis, unspecified organism documented in this encounter Results * XR CHEST 2VW (04/07/2018 4:35 PM GROUNDS WORKER) Anatomical Region Laterality Modality Chest Radiographic Apolonia ging 04/07/2018 5:12 PM GROUNDS WORKER Narrative 04/07/2018 5:13 PM GROUNDS WORKER Chest Two Views History: Acute bronchitis, unspecified [...] organism documented in this encounter Care Teams Fire Management Technician Relationship Specialty [place] [address] [facility] [address] [place] [address] Ophthalmology 04/06/16 documented as of this encounter
--- OUTSIDE RECORDS SUMMARY | 2024-04-03 02:28 | XMS_ITS | Encounter Summary ---
Author Organization [facility] Address [address] [facility] [place] [address] Care Team Providers Care Account Adjuster Name Role Phone Ricco Andrew MD Unavailable [phone] Reason for Visit * Reason Onset Date Comments Outreach Preventive Care 12/06/2017 Encounter Details Date Type Department Care Team (Late st Contact Info) Description 12/06/2017 Patient Outreach [facility] Medical [facility] - Care Coordination [address] [place] [address] Jessica Jay Outreach Preventive Care Social History [...] st Contact Info) Description 04/07/2024 10:00 AM CARE CONNECTOR Office Visit [facility] [address] [facility] [address] [place] [address] Evelin Blanco APRN-GENERAL TECHNICIAN [address] [facility] [address] [place] [address] 06/06/2024 2:00 PM CDT Office Visit [facility] [address] [facility] [address] [place] [address] [place] [address] [facility] [address] [place] [address] documented as of this encounter Goals Goal Patient Goal Type Associated Problems Recent Progress Patient-Stated? Author Blood Pressure < 140/90 Blood Pressure 96/68(2023 2:34 PM CARE CONNECTOR) Rere Vargas Note: Caring for Your High [...] Where can I go for more information? [place] Heart Association National Center: http://www.americanheart.org 1. In the top header, click ? Conditions? . 2. In the top header, click ? high blood pressure.? 3. For a printable blood pressure tracker, scroll toward the bottom of the page to Related Tools, and click ? HBP Trackers.? 1-749-ZAC-USA-1 or ( ) National Heart, Lung and Blood [place]: http://www.nhlbi.nih.gov/health/infoctr/index.htm Blood Pressure < 140/90 Blood Pressure 96/68(2023 2:34 PM CARE CONNECTOR) Rere Vargas Note: Caring for Your High [...] Where can I go for more information? [place] Heart Association National Center: http://www.americanheart.org 1. In the top header, click ? Conditions? . 2. In the top header, click ? high blood pressure.? 3. For a printable blood pressure tracker, scroll toward the bottom of the page to Related Tools, and click ? HBP Trackers.? 2-693-MLE-USA-1 or ( ) National Heart, Lung and Blood [place]: http://www.nhlbi.nih.gov/health/infoctr/index.htm Exercise 5X per week (30 min per time) Exercise Rere Vargas Note: The [place] College of Sports Medicine recommends all adults [...] how to manage your diabetes: ? ? [place] Diabetes Association: www.diabetes.org 6-902-AWVEGZHZ ( ) ? ? [place] Diabetes Association-Support group line: www.professional.diabetes.org ? ? [place] Heart Association: www.heart.org or 0-426-IST-USA-1 ( ) [employer] MyPlate: www.Al Detalmyplate.gov Have labs drawn Lifestyle Rere Vargas Note: [...] on filedocumented in this encounter Care Teams Account Adjuster Relationship Specialty [place] [address] [phone] Ophthalmology 04/06/16 documented as of this encounter
--- OUTSIDE RECORDS SUMMARY | 2024-04-03 02:28 | XMS_ITS | Encounter Summary ---
Author Organization [facility] Address [address] [facility] [place] [address] Care Team Providers Care Cooperative Manager Name Role Phone Ricco Andrew MD Unavailable [phone] Reason for Visit * Reason Comments Refill Request Encounter Details Date Type Department Care Team (Late st Contact Info) Description 10/25/2017 Refill [facility] - Family Medicine [address] [place] [address] Rosana Solo MD [address] [address] Refill Request Social History Tobacco [...] st Contact Info) Description 04/07/2024 10:00 AM LASTING ROOM MACHINE OPERATOR Office Visit [facility] [address] [facility] [address] [place] [address] Evelin Blanco APRN-CNP [address] [facility] [address] [place] [address] 06/06/2024 2:00 PM CDT Office Visit [facility] [id number] [place] [address] [address] [place] [address] [place] [address] [facility] [address] [place] [phone] documented as of this encounter Goals Goal Patient Goal Type Associated Problems Recent Progress Patient-Stated? Author Blood Pressure < 140/90 Blood Pressure 96/68(2023 2:34 PM LASTING ROOM MACHINE OPERATOR) Rere Vargas Note: Caring for [...] Related Tools, and click ? HBP Trackers.? 2-294-SRD-USA-1 or ( ) National Heart, Lung and Blood [place]: http://www.nhlbi.nih.gov/health/infoctr/index.htm Blood Pressure < 140/90 Blood Pressure 96/68(2023 2:34 PM LASTING ROOM MACHINE OPERATOR) Rere Vargas Note: Caring for [...] Related Tools, and click ? HBP Trackers.? 4-228-JMG-USA-1 or ( ) National Heart, Lung and Blood [place]: http://www.nhlbi.nih.gov/health/infoctr/index.htm Exercise 5X per week (30 min [...] diabetes: ? ? [place] Diabetes Association: www.diabetes.org 4-484-RVCKMFNE ( ) ? ? Dominican Diabetes Association-Support group line: www.professional.diabetes.org ? ? [place] Heart Association: www.heart.org or 2-511-XSB-USA-1 ( ) [employer] MyPlate: www.Enerveemyplate.gov Have labs drawn Lifestyle Rere Vargas Note: [...] on filedocumented in this encounter Care Teams Cooperative Manager Relationship Specialty [place] [address] [address] Ophthalmology 04/06/16 documented as of this encounter
--- OUTSIDE RECORDS SUMMARY | 2024-04-03 02:28 | XMS_ITS | Encounter Summary ---
Author Organization [facility] Address [address] [facility] [place] [address] Care Team Providers Care Supervisor Byproducts Name Role Phone Ricco Andrew MD Unavailable [phone] Reason for Visit * Reason Comments Diabetes 3 month follow up Hypertension Encounter Details Date Type Department Care Team (Latest Contact Info) Description 07/23/2016 2:00 PM CDT Office Visit [facility] - Family Medicine [address] [place], [place] [id number] Rosana Solo MD [facility] [address] [address] Type 2 diabetes mellitus with [...] and electrolytes). Lab orders sent to [facility] Directions to [facility] is located on the 1st floor of this building. Please take the elevators down to the lobby.As soon as you exit the elevator, take an immediate left out of the elevators and then go left downthe first hallway. [facility] is located in [address] on the left side just past the restrooms. They orders have been transmitted electronically, so the should have them. Caring For Your Diabetes ?? Follow a diabetic diet with healthy meals that are low salt, low fat, high fiber. For more information on a diabetic diet, please go to the [place] Diabetes Association website at www.diabetes.org and select [...] minutes if trying to lose weight) The [place]kinan College of Sports Medicine recommends [...] to Related Tools, and click ???HBP Trackers.?? 0-577-[facility]ZI-[facility]- or ( ) National Heart, Lung and Blood [place]: http://www.nhlbi.nih.gov/health/infoctr/index.htm ? ? Blood Pressure < 140/90 [...] information? [place]kin[place] Heart Association National Center: http://www.americanheart.org 4. In the top header, click ???Conditions?? . 5. In the top header, click ???high blood pressure.?? 6. For a printable blood pressure tracker, scroll toward the bottom of the page to Related Tools, and click ???HBP Trackers.?? 7-189-CEM-USA- or ( ) National Heart, Lung and Blood [place]: http://www.nhlbi.nih.gov/health/infoctr/index.htm ??? Exercise 5X per week (30 min per time) The [place]kin[place] College of Sports Medicine recommends [...] and how to manage your diabetes: ??? [place] Diabetes Association: www.diabetes.org 5-837-YXKVAYSE ( ) ??? [place] Diabetes Association-Support group line: www.professional.diabetes.org ??? [place] Heart Association: www.heart.org or 8-248-CGU-USA-1 ( ) [employer] MyPlate: www.Panlmyplate.gov ??? Have labs drawn Caring for Your [...] scalp if you use coal tar shampoo. Platte tar shampoo can make your skin more [...] ask them during your visits. ?? 2016 [employer]. Information is for End User's use only and may not be sold, redistributed or otherwise used for commercial purposes. All illustrations and images included in CareNotes?? are the copyrighted property of [employer], [employer]. or [employer]. The above information is an educational resource coordinator only. It is not intended as medical [...] of electrolytes normal My Chart sent * Rosana Solo MD - 07/23/2016 1:50 PM CDT [...] VISIT 02/05/2016 ??? DIABETES EDUCATION Q1 YR ([id number]) 02/05/2016 ??? DIABETES-EYE EXAM Q1 YR 02/05/2016 [...] VISIT 02/05/2016 ??? DIABETES EDUCATION Q1 YR ([id number]) 02/05/2016 ??? DIABETES-EYE EXAM Q1 YR 02/05/2016 [...] st Contact Info) Description 04/07/2024 10:00 AM WIRE LATHER Office Visit [facility] [address] [place] [address] Evelin Blanco, MANAGER DOMESTIC-SPORTS MEDICINE COORDINATOR [id number] [place] [address] 06/06/2024 2:00 PM CDT Office Visit [address] [address] [place] [address] [phone] documented as of this encounter Goals Goal Patient Goal Type Associated Problems Recent Progress Patient-Stated? Author Blood Pressure < 140/90 Blood Pressure 96/68(2023 2:34 PM WIRE LATHER) Rere Vargas Note: Caring for Your High [...] Related Tools, and click ? HBP Trackers.? 4-889-DQT-USA-1 or ( ) National Heart, Lung and Blood [place]: http://www.nhlbi.nih.gov/health/infoctr/index.htm Blood Pressure < 140/90 Blood Pressure 96/68(2023 2:34 PM WIRE LATHER) Rere Vargas Note: Caring for Your High [...] Related Tools, and click ? HBP Trackers.? 3-780-RRI-USA-1 or ( ) National Heart, Lung and Blood [place]: http://www.nhlbi.nih.gov/health/infoctr/index.htm Exercise 5X per week (30 min per time) Exercise No Rere Kaufman Note: The Bur[place] College of Sports Medicine [...] diabetes: ? ? [place] Diabetes Association: www.diabetes.org 8-031-ASRDBBCG ( ) ? ? Bur[place] Diabetes Association-Support group line: www.professional.diabetes.org ? ? [place] Heart Association: www.heart.org or 8-030-VJP-USA-1 ( ) [employer] MyPlate: www.Panlmyplate.gov Have labs drawn Lifestyle Rere Vargas Note: [...] PM CDT 07/23/2016 Narrative Resulting Agency Comment [facility] [address] [address] ??Ana LINARES [phone] Rosana Solo MD LAB - CHEMISTRY MELYSSA Mata Organization Address City/State/ZIP Co de Phone Number [facility] ACCOUNT BILL [address] [place] [address] * (ABNORMAL) HEMOGLOBIN A1C (07/23/2016 2:16 PM CDT) Hemoglobin A1c 6.9(H) 4.2 - 6.3 % [facility] ACCOUNT BILL Comment:AVERAGE GLUCOSE MG/D L BLOOD 151 mg/dL Whole Blood BLOOD SPECIMEN WITH EDTA / Unknown 07/23/2016 2:16 PM CDT 07/23/2016 Narrative Resulting Agency Comment [facility] [address] [phone] Rosana Solo MD LAB - CHEMISTRY MELYSSA CHAHAL [facility] ACCOUNT BILL [address] [place] [address] documented in this encounter Visit Diagnoses Diagnosis [...] hypothyroidism documented in this encounter Care Teams Supervisor Byproducts Relationship Specialty [place] [address] [facility] [address] [phone] Ophthalmology 04/06/16 documented as of this encounter
--- OUTSIDE RECORDS SUMMARY | 2024-04-03 02:28 | XMS_ITS | Encounter Summary ---
Author Organization [facility] Address [address] [facility] [place] [address] Care Team Providers Care Director Product Development Name Role Phone Ricco Andrew MD Unavailable [phone] Encounter Details Date Type Department Care Team (Late st Contact Info) Description 03/02/2018 Orders Only [facility] [id number] [place] [address] [address] [place] [address] Rosana Solo MD [address] [address] Social History Tobacco Use Types [...] st Contact Info) Description 04/07/2024 10:00 AM SONOGRAPHY TECHNOLOGIST Office Visit [facility] [address] [facility] [address] [place] [address] Evelin Blanco, HOT PIPE GAUGER-DENIS [address] [facility] [address] [place] [address] 06/06/2024 2:00 PM CDT Office Visit [facility] Family Medicine [address] [facility] [address] [place] [address] [place] [address] [facility] [address] [place] [address] [place] [address] documented as of this encounter Goals Goal Patient Goal Type Associated Problems Recent Progress Patient-Stated? Author Blood Pressure < 140/90 Blood Pressure 96/68(2023 2:34 PM SONOGRAPHY TECHNOLOGIST) Rere Vargas Note: Caring for Your High [...] Where can I go for more information? [place] Heart Association National Center: http://www.americanheart.org 1. In the top header, click ? Conditions? . 2. In the top header, click ? high blood pressure.? 3. For a printable blood pressure tracker, scroll toward the bottom of the page to Related Tools, and click ? HBP Trackers.? 0-115-FTD-USA- or ( ) National Heart, Lung and Blood [place]: http://www.nhlbi.nih.gov/health/infoctr/index.htm Blood Pressure < 140/90 Blood Pressure 96/68(2023 2:34 PM SONOGRAPHY TECHNOLOGIST) Rere Vargas Note: Caring for Your High [...] Where can I go for more information? [place] Heart Association National Center: http://www.americanheart.org 1. In the top header, click ? Conditions? . 2. In the top header, click ? high blood pressure.? 3. For a printable blood pressure tracker, scroll toward the bottom of the page to Related Tools, and click ? HBP Trackers.? 4-783-VGJ-USA-1 or ( ) National Heart, Lung and Blood [place]: http://www.nhlbi.nih.gov/health/infoctr/index.htm Exercise 5X per week (30 min per time) Exercise Rere Vargas Note: The [place] College of Sports Medicine recommends all [...] healthier. Have labs drawn Lifestyle No Rere Kaufmna Note: Caring for Your Diabetes Exercise Tips [...] how to manage your diabetes: ? ? [place] Diabetes Association: www.diabetes.org 8-861-IONFLXXS ( ) ? ? [place] Diabetes Association-Support group line: www.professional.diabetes.org ? ? [place] Heart Association: www.heart.org or 7-510-FHC-USA-1 ( ) [employer] MyPlate: www.FunnelFiremyplate.gov Have labs drawn Lifestyle Rere Vargas Note: [...] Diagnosis Comments T4 FREE 03/02/2018 1:47 PM SONOGRAPHY TECHNOLOGIST documented in this encounter Results * T4 FREE (03/02/2018 1:47 PM SONOGRAPHY TECHNOLOGIST) T4 Free Direct 1.12 0.65 - 1.34 ng/dL [facility] ACCOUNT BILL 03/02/2018 1:47 PM SONOGRAPHY TECHNOLOGIST 03/02/2018 Narrative Resulting Agency Comment [facility] [address] ??[facility] [phone] Rosana Solo MD LAB - CHEMISTRY MELYSSA CHAHAL [facility] Organization Address City/State/ZIP Co de Phone Number [facility] ACCOUNT BILL [address] [place] [address] documented in this encounter Visit Diagnoses Not on filedocumented in this encounter Care Teams Director Product Development Relationship Specialty [place] [address] [facility] [address] [place] [address] Ophthalmology 04/06/16 documented as of this encounter
--- OUTSIDE RECORDS SUMMARY | 2024-04-03 02:28 | XMS_ITS | Encounter Summary ---
Author Organization [facility] Address [address] [facility] [place] [address] Care Team Providers Care Golf Sales Manager Name Role Phone Ricco Andrew MD Unavailable [phone] Reason for Visit * Reason Onset Date Comments Referral 05/07/2017 Encounter Details Date Type Department Care Team (Late st Contact Info) Description 05/07/2017 Telephone [facility] - Family Medicine [address] [place], [place] [phone] Rosana Solo MD [address] [address] Referral Social History Tobacco Use [...] - 05/07/2017 10:07 AM CST Sent via [employer] UM SPINDLE SANDER * Telephone Encounter - Venancio Dupree - 05/07/2017 9:53 AM CST Caller Requesting Referral: Dr Bourne office PCP:Dr. Rosana Solo Specialist:Dr. Vega Specialist Phone #:[phone] Specialist's Fax #:[phone] Diagnosis:right long finger Appointment Date:pt currently in office Insurance: [facility] UM SPINDLE SANDER documented in this encounter Plan of Treatment Upcoming Encounters Date Type Department Care Team (Late st Contact Info) Description 04/07/2024 10:00 AM VACUUM SPINDLE SANDER Office Visit [facility] [address] [facility] [address] [place] [address] Evelin Blanco APRN-CNP [address] [facility] [address] [place] [address] 06/06/2024 2:00 PM CDT Office Visit [facility] [address] [facility] [address] [place] [address] [place] [address] [facility] [address] [address] documented as of this encounter Goals Goal Patient Goal Type Associated Problems Recent Progress Patient-Stated? Author Blood Pressure < 140/90 Blood Pressure 96/68(2023 2:34 PM VACUUM SPINDLE SANDER) Rere Vargas Note: Caring for Your [...] Related Tools, and click ? HBP Trackers.? 7-732-PWS-USA-1 or ( ) National Heart, Lung and Blood [place]: http://www.nhlbi.nih.gov/health/infoctr/index.htm Blood Pressure < 140/90 Blood Pressure 96/68(2023 2:34 PM VACUUM SPINDLE SANDER) Rere Vargas Note: Caring for Your [...] Related Tools, and click ? HBP Trackers.? 9-586-NUG-USA-1 or ( ) National Heart, Lung and Blood [place]: http://www.nhlbi.nih.gov/health/infoctr/index.htm Exercise 5X per week (30 [...] diabetes: ? ? [place] Diabetes Association: www.diabetes.org 7-990-YYJISUOG ( ) ? ? Kyr[place]z Diabetes Association-Support group line: www.professional.diabetes.org ? ? [place] Heart Association: www.heart.org or 9-623-EOX-USA-1 ( ) [employer] MyPlate: www.Tealetmyplate.gov Have labs drawn Lifestyle Rere Vargas Note: [...] on filedocumented in this encounter Care Teams Golf Sales Manager Relationship Specialty [place] [address] [address] Ophthalmology 04/06/16 documented as of this encounter
--- OUTSIDE RECORDS SUMMARY | 2024-04-03 02:28 | XMS_ITS | Encounter Summary ---
Author Organization [facility] Address [address] [facility] [place] [address] Care Team Providers Care Clinical Operations Leader Name Role Phone Ricco Andrew MD Unavailable [phone] Reason for Visit * Reason Onset Date Comments Referral Request 04/17/2016 Encounter Details Date Type Department Care Team (Late st Contact Info) Description 04/17/2016 Telephone [facility] - Family Medicine [address] [place], [place] [phone] Rosana Solo MD [facility] [address] Referral Request Social History Tobacco [...] 04/17/2016 3:20 PM CST Referral authorized Referral #[id number] Valid for 12 visits Faxed to [phone] NE DISPATCHER * Telephone Encounter - NjDru Salas - 04/17/2016 2:41 PM CST Person Requesting Referral: Suzanne PCP: Dr. Solo Specialist: Dr. 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 Appointment Date: 04/20/16 Insurance: [facility] Tax ID: [id number] NE DISPATCHER documented in this encounter Plan of Treatment Upcoming Encounters Date Type Department Care Team (Late st Contact Info) Description 04/07/2024 10:00 AM ENGINE DISPATCHER Office Visit [facility] [id number] [place] [address] [address] [place] [address] Evelin Blanco APRN-CNP [id number] [place] [address] [address] [place] [address] 06/06/2024 2:00 PM CDT Office Visit [facility] [phone] [place] [address] [address] [place] [address] Chris Aden MD [phone] [place] [address] documented as of this encounter Goals Goal Patient Goal Type Associated Problems Recent Progress Patient-Stated? Author Blood Pressure < 140/90 Blood Pressure 96/68(2023 2:34 PM ENGINE DISPATCHER) Rere Vargas Note: Caring for Your [...] Related Tools, and click ? HBP Trackers.? 2-677-DUU-USA-1 or ( ) National Heart, Lung and Blood [place]: http://www.nhlbi.nih.gov/health/infoctr/index.htm Exercise 5X per week (30 min per time) Exercise No Rere Kaufman Note: The [place] College of [employer] Medicine [...] diabetes: ? ? [place] Diabetes Association: www.diabetes.org 1-593-IOLAATZU ( ) ? ? [place] Diabetes Association-Support group line: www.professional.diabetes.org ? ? [place] Heart Association: www.heart.org or 3-605-HHR-USA-1 ( ) OPHTHONIX MyPlate: www.choosemyplate.gov documented as of this encounter Visit Diagnoses Not on filedocumented in this encounter Care Teams Clinical Operations Leader Relationship Specialty [place] [id number] [address] Ophthalmology 04/06/16 documented as of this encounter
--- OUTSIDE RECORDS SUMMARY | 2024-04-03 02:28 | XMS_ITS ---
Author Organization [facility] Address [address] [place] [place] [address] Care Team Providers Care Conservation Officer Name Role Phone Ricco Andrew MD Unavailable [phone] Fawn Ramon DPM Unavailable [phone] Chris Aden MD Primary Care Provider [phone] Chris Aden MD Unavailable QMM & AWV - Vibrance Status:Closed (Closed) Start date:04/30/2022 Enrollment date:05/13/2022 Enrollment reason:Identified using claims or encounter data End date:2022 Close reason:Follow by dynamic observation Continued Care and Services Coordination
--- OUTSIDE RECORDS SUMMARY | 2024-04-03 02:28 | XMS_ITS | Encounter Summary ---
Author Organization [facility] Address [address] [facility] [place] [address] Care Team Providers Care Safety Counselor Name Role Phone Ricco Andrew MD Unavailable [phone] Reason for Visit * Reason Comments Follow-up Encounter Details Date Type Department Care Team (Latest Contact Info) Description 08/31/2017 1:00 PM CDT Office Visit [facility] - Family Medicine [address] [place], [place] [phone] Rosana Solo MD [address] [facility] [address] [place] [address] Type 2 diabetes mellitus with [...] once a year. Labs today today at [facility] Directions to [facility]: [facility] is located on the 1st floor of this building. Please take the elevators down to the lobby.As soon as you exit the elevator, take an immediate left out of the elevators and then go left downthe first hallway. [facility] is located in [address] on the left side just past the restrooms. They orders have been transmitted electronically, so the should have them. Caring For Your Diabetes ?? Follow a diabetic diet with healthy meals that are low salt, low fat, high fiber. For more information on a diabetic diet, please go to the [place] Diabetes Association website at www.diabetes.org and select [...] minutes if trying to lose weight) The [place] College of Sports Medicine recommends [...] ANNUAL MEDICARE WELLNESS VISIT 02/05/2016 ??? DIABETES-EDUCATION (QIO228) 02/05/2016 ??? DIABETES-EYE EXAM 04/08/2017 ??? DIABETES-FOOT [...] to Related Tools, and click ???HBP Trackers.?? 0-746-ZPJ-USA-1 or ( ) National Heart, Lung and Blood [place]: http://www.nhlbi.nih.gov/health/infoctr/index.htm ? ? Blood Pressure < 140/90 [...] information? [place] Heart Association National Center: http://www.americanheart.org 4. In the top header, click ???Conditions?? . 5. In the top header, click ???high blood pressure.?? 6. For a printable blood pressure tracker, scroll toward the bottom of the page to Related Tools, and click ???HBP Trackers.?? 9-147-OFQ-USA-1 or ( ) National Heart, Lung and Blood [place]: http://www.nhlbi.nih.gov/health/infoctr/index.htm ??? Exercise 5X per week (30 min per time) The [place] College of Sports Medicine recommends [...] and how to manage your diabetes: ??? [place] Diabetes Association: www.diabetes.org 6-683-QHAWYYAN ( ) ??? [place] Diabetes Association-Support group line: www.professional.diabetes.org ??? [place] Heart Association: www.heart.org or 8-151-LDY-[facility]-1 ( ) SoThree MyPlate: www.World Reviewermyplate.gov ??? Have labs drawn Caring for Your [...] ANNUAL MEDICARE WELLNESS VISIT 02/05/2016 ??? DIABETES-EDUCATION ([id number]) 02/05/2016 ??? DIABETES-EYE EXAM 04/08/2017 ??? DIABETES-FOOT [...] st Contact Info) Description 04/07/2024 10:00 AM PUBLIC TRANSPORTATION INSPECTOR Office Visit [facility] [phone] [place] [address] Evelin Blanco, ACID PURIFIER-CUTTING TABLE OPERATOR FIRST [id number] [place] [address] 06/06/2024 2:00 PM CDT Office Visit [address] [address] Chris Aden MD [phone] [place] [address] documented as of this encounter Goals Goal Patient Goal Type Associated Problems Recent Progress Patient-Stated? Author Blood Pressure < 140/90 Blood Pressure 96/68(2023 2:34 PM PUBLIC TRANSPORTATION INSPECTOR) Rere Vargas Note: Caring for Your [...] Related Tools, and click ? HBP Trackers.? 7-217-VFC-USA-1 or ( ) National Heart, Lung and Blood [place]: http://www.nhlbi.nih.gov/health/infoctr/index.htm Blood Pressure < 140/90 Blood Pressure 96/68(2023 2:34 PM PUBLIC TRANSPORTATION INSPECTOR) Rere Vargas Note: Caring for Your [...] Related Tools, and click ? HBP Trackers.? 3-138-JVW-USA-1 or ( ) National Heart, Lung and Blood [place]: http://www.nhlbi.nih.gov/health/infoctr/index.htm Exercise 5X per week (30 min [...] diabetes: ? ? [place] Diabetes Association: www.diabetes.org 4-944-RMOOWXKZ ( ) ? ? [place] Diabetes Association-Support group line: www.professional.diabetes.org ? ? [place] Heart Association: www.heart.org or 9-692-HFS-USA-1 ( ) SoThree MyPlate: www.World Reviewermyplate.gov Have labs drawn Lifestyle No Rere Kaufman [...] PM CDT 08/31/2017 Narrative Resulting Agency Comment [facility] [address] ??[facility] [phone] Rosana Solo MD LAB - CHEMISTRY MELYSSA CHAHAL [facility] ACCOUNT BILL [address] [place] [address] * (ABNORMAL) COMPREHENSIVE METABOLIC PANEL (08/31/2017 1:44 [...] PM CDT 08/31/2017 Narrative Resulting Agency [facility] [address] [address] ??[facility] [phone] Rosana Solo MD LAB - CHEMISTRY MELYSSA CHAHAL [facility] ACCOUNT BILL [address] [place] [address] documented in this encounter Visit Diagnoses Diagnosis [...] dermatitis documented in this encounter Care Teams Safety Counselor Relationship Specialty [place] [address] [phone] Ophthalmology 04/06/16 documented as of this encounter
--- OUTSIDE RECORDS SUMMARY | 2024-04-03 02:28 | XMS_ITS | Encounter Summary ---
Author Organization [facility] Address [address] [facility] [place] [address] Care Team Providers Care Counselling Psychologist Name Role Phone Ricco Andrew MD Unavailable [phone] Reason for Visit * Reason Comments Refill Request Encounter Details Date Type Department Care Team (Late st Contact Info) Description 09/02/2017 Refill [facility] - Family Medicine [address] [place] [address] Rosana Solo MD [address] [address] Refill Request Social History Tobacco [...] st Contact Info) Description 04/07/2024 10:00 AM SURVEYOR GEODETIC Office Visit [facility] [id number] [place] [address] [address] [place], [place] [phone] Evelin Blanco, BIOMASS FACILITATOR-ACQUISITION EDITOR [address] [facility] [address] [place], [place] [phone] 06/06/2024 2:00 PM CDT Office Visit [facility] [phone] [place] [address] [address] [place], [place] [phone] [place] [address] [phone] documented as of this encounter Goals Goal Patient Goal Type Associated Problems Recent Progress Patient-Stated? Author Blood Pressure < 140/90 Blood Pressure 96/68(2023 2:34 PM SURVEYOR GEODETIC) Rere Vargas Note: Caring for Your High [...] Where can I go for more information? [place] Heart Association National Center: http://www.americanheart.org 1. In the top header, click ? Conditions? . 2. In the top header, click ? high blood pressure.? 3. For a printable blood pressure tracker, scroll toward the bottom of the page to Related Tools, and click ? HBP Trackers.? 1-790-ARF-USA-1 or ( ) National Heart, Lung and Blood [place]: http://www.nhlbi.nih.gov/health/infoctr/index.htm Blood Pressure < 140/90 Blood Pressure 96/68(2023 2:34 PM SURVEYOR GEODETIC) Rere Vargas Note: Caring for Your High [...] Where can I go for more information? [place] Heart Association National Center: http://www.americanheart.org 1. In the top header, click ? Conditions? . 2. In the top header, click ? high blood pressure.? 3. For a printable blood pressure tracker, scroll toward the bottom of the page to Related Tools, and click ? HBP Trackers.? 4-250-NPL-USA-1 or ( ) National Heart, Lung and Blood [place]: http://www.nhlbi.nih.gov/health/infoctr/index.htm Exercise 5X per week (30 min per time) Exercise Rere Vargas Note: The [place] College of Sports Medicine recommends all adults [...] how to manage your diabetes: ? ? [place] Diabetes Association: www.diabetes.org 2-563-NTLWNANJ ( ) ? ? [place] Diabetes Association-Support group line: www.professional.diabetes.org ? ? [place] Heart Association: www.heart.org or 2-899-CVK-USA-1 ( ) Cardiovascular Decisions MyPlate: www.Sunrisemyplate.gov Have labs drawn Lifestyle No Rere Kaufman [...] on filedocumented in this encounter Care Teams Counselling Psychologist Relationship Specialty [place] [id number] [address] Ophthalmology 04/06/16 documented as of this encounter
--- OUTSIDE RECORDS SUMMARY | 2024-04-03 02:28 | XMS_ITS | Encounter Summary ---
Author Organization [facility] Address [address] [facility] [place] [address] Care Team Providers Care Guest Relations Representative Name Role Phone Ricco Andrew MD Unavailable [phone] Reason for Visit * Reason Onset Date Comments MEDICATION REFILL 09/18/2016 Encounter Details Date Type Department Care Team (Late st Contact Info) Description 09/18/2016 Refill [facility] Medical [facility] - Family Medicine [address] [place], [place] [phone] Rosana Solo MD [address] [place] [address] MEDICATION REFILL [...] st Contact Info) Description 04/07/2024 10:00 AM ANATOMY PROFESSOR Office Visit [facility] [id number] [place] [address] [address] [place] [address] Evelin Blanco, WANT AD RECEIVER-KNURLING MACHINE OPERATOR [address] [facility] [address] [place] [address] 06/06/2024 2:00 PM CDT Office Visit [facility] [address] [place] [address] [address] [place] [address] Chris Aden MD [id number] [place] [address] [address] [place] [phone] documented as of this encounter Goals Goal Patient Goal Type Associated Problems Recent Progress Patient-Stated? Author Blood Pressure < 140/90 Blood Pressure 96/68(2023 2:34 PM ANATOMY PROFESSOR) Rere Vargas Note: Caring for Your High [...] Where can I go for more information? [place] Heart Association National Center: http://www.americanheart.org 1. In the top header, click ? Conditions? . 2. In the top header, click ? high blood pressure.? 3. For a printable blood pressure tracker, scroll toward the bottom of the page to Related Tools, and click ? HBP Trackers.? 0-756-KZA-USA-1 or ( ) National Heart, Lung and Blood [place]: http://www.nhlbi.nih.gov/health/infoctr/index.htm Blood Pressure < 140/90 Blood Pressure 96/68(2023 2:34 PM ANATOMY PROFESSOR) Rere Vargas Note: Caring for Your High [...] Where can I go for more information? [place] Heart Association National Center: http://www.americanheart.org 1. In the top header, click ? Conditions? . 2. In the top header, click ? high blood pressure.? 3. For a printable blood pressure tracker, scroll toward the bottom of the page to Related Tools, and click ? HBP Trackers.? 6-280-SZO-USA-1 or ( ) National Heart, Lung and Blood [place]: http://www.nhlbi.nih.gov/health/infoctr/index.htm Exercise 5X per week (30 min per time) Exercise No Rere Kaufman Note: The [place] College of Sports Medicine recommends all adults [...] how to manage your diabetes: ? ? [place] Diabetes Association: www.diabetes.org 1-355-FHRNQFFG ( ) ? ? [place] Diabetes Association-Support group line: www.professional.diabetes.org ? ? [place] Heart Association: www.heart.org or 8-973-AIG-USA-1 ( ) [employer] MyPlate: www.Go Capitalmyplate.gov Have labs drawn Lifestyle No Rere Kaufman [...] on filedocumented in this encounter Care Teams Guest Relations Representative Relationship Specialty [place] [address] [facility] [address] [place] [phone] Ophthalmology 04/06/16 documented as of this encounter
--- OUTSIDE RECORDS SUMMARY | 2024-04-03 02:28 | XMS_ITS | Encounter Summary ---
Author Organization [facility] Address [address] [facility] [place] [address] Care Team Providers Care Pathology Supervisor Name Role Phone Unavailable Primary Care Provider Unavailabl e Reason for Visit * Reason Comments Establish Care Encounter Details Date Type Department Care Team (Late st Contact Info) Description 02/05/2016 1:40 PM DEALER CARD ROOM Office Visit [facility] - Family Medicine [address] [place], [place] [phone] Rosana Herrera MD [address] [facility] [address] [place] [address] Type 2 diabetes mellitus with [...] Comments Blood Pressure 124/80 02/05/2016 1:06 PM DEALER CARD ROOM Pulse 88 02/05/2016 1:06 PM DEALER CARD ROOM Temperature 37 ??C (98.6 ??F) 02/05/2016 1:06 PM DEALER CARD ROOM Respiratory Rate 16 02/05/2016 1:06 PM DEALER CARD ROOM Oxygen Saturation - - Inhaled Oxygen Concentration - - Weight 77.1 kg (170 lb) 02/05/2016 1:06 PM DEALER CARD ROOM Height 165.1 cm (5' 5) 02/05/2016 1:06 PM DEALER CARD ROOM Body Mass Index 28.29 02/05/2016 1:06 PM DEALER CARD ROOM documented in this encounter Patient Instructions * Patient Instructions* Rosana Herrera MD - 02/05/2016 1:58 PM DEALER CARD ROOM Get labs done fasting in the next [...] a diabetic diet, please go to the [place] Diabetes Association website at www.diabetes.org and select [...] minutes if trying to lose weight) The [place] College of Sports Medicine recommends [...] VISIT 02/05/2016 ??? DIABETES EDUCATION Q1 YR ([id number]) 02/05/2016 ??? HGBA1C Q6 [place] 02/05/2016 ??? [...] to Related Tools, and click ???HBP Trackers.?? 6-240-QPD-USA-1 or ( ) National Heart, Lung and Blood [place]: http://www.nhlbi.nih.gov/health/infoctr/index.htm ??? Exercise 5X per week (30 min per time) The [place] College of Sports Medicine recommends [...] and how to manage your diabetes: ??? Canadian Diabetes Association: www.diabetes.org 8-831-UBAGPYJK ( ) ??? Canadian Diabetes Association-Support group line: www.professional.diabetes.org ??? Canadian Heart Association: www.heart.org or 4-977-OEB-USA-1 ( ) [facility] MyPlate: www.TeraDiodemyplate.gov ?? Please call office during routine office hours if any questions or concerns. ?? After hours you may contact us through the exchange at for more significant issues. ?? See me in 3 months ER CARD ROOM documented in this encounter Progress Notes * Rosana Herrera MD - 02/10/2016 4:50 PM CSTIncreased dose levothyroxine sent in ER CARD ROOM * Rere Kaufman - 02/10/2016 2:08 PM CSTDavid notified of patient results and will comply with doctors orders Please send new Rx to pharmacy ER CARD ROOM * Rosana Herrera MD - 02/07/2016 5:30 [...] to stay off cholesterol medications Microalbumin/Cr normal. ER CARD ROOM * Rere Kaufman - 02/05/2016 1:22 PM [...] aware of all side affects of thisvaccine. ER CARD ROOM * Rosana Herrera MD - 02/05/2016 1:14 [...] VISIT 02/05/2016 ??? DIABETES EDUCATION Q1 YR ([id number]) 02/05/2016 ??? HGBA1C Q6 [place] 02/05/2016 ??? [...] TRIG, HDL, LDLCALC, LDLDIRECT in the last 84685 hours. No results for input(s): HGBA1C in the last 19875 hours. No results for input(s): SODIUM, POTASSIUM, CHLORIDE, CO2, BUN, CREATININE, GLUCOSE, CALCIUM, ALBUMIN, ALKPHOS, ALT, AST, TBIL, TPROT, EGFR in the last 37248 hours. No results for input(s): MICROALBCREA in the last 34049 hours. Does pt need updated EKG or [...] VISIT 02/05/2016 ??? DIABETES EDUCATION Q1 YR ([id number]) 02/05/2016 ??? HGBA1C Q6 [place] 02/05/2016 ??? [...] given to the patient. Rosana Herrera MD ER CARD ROOM documented in this encounter Miscellaneous Notes * Addendum Note - Rosana Herrera MD - 02/10/2016 4:50 PM CSTAddended by: ROSANA HERRERA on: 02/10/2016 04:50 PM Modules accepted: Orders ER CARD ROOM documented in this encounter Plan of Treatment Upcoming Encounters Date Type Department Care Team (Late st Contact Info) Description 04/07/2024 10:00 AM DEALER CARD ROOM Office Visit [address] [address] Evelin Blanco, NEEDLE STRAIGHTENER-HOME OFFICE REPRESENTATIVE [id number] [place] [address] 06/06/2024 2:00 PM CDT Office Visit [address] [address] Chris Aden MD [address] [place] [phone] documented as of this encounter Goals Goal Patient Goal Type Associated Problems Recent Progress Patient-Stated? Author Blood Pressure < 140/90 Blood Pressure 96/68(2023 2:34 PM DEALER CARD ROOM) Rere Vargas Note: Caring for Your [...] Related Tools, and click ? HBP Trackers.? 5-451-STW-USA-1 or ( ) National Heart, Lung and Blood [place]: http://www.nhlbi.nih.gov/health/infoctr/index.htm Exercise 5X per week (30 min per time) Exercise Rere Vargas Note: The [place] College of Sports Medicine [...] diabetes: ? ? Canadian Diabetes Association: www.diabetes.org 0-526-HWTLHSBU ( ) ? ? Canadian Diabetes Association-Support group line: www.professional.diabetes.org ? ? Canadian Heart Association: www.heart.org or 5-124-SVU-USA-1 ( ) CareShare MyPlate: www.choosemyplate.gov documented as of this encounter Procedures Procedure Name Priority Date/Time Associated Diagnosis Comments MICROALB/CREAT RATIO URINE RANDOM PANEL Routine 02/06/2016 8:44 AM DEALER CARD ROOM Type 2 diabetes mellitus with chronic kidney disease, without long-term current use of insulin, unspecified CKD stage (HCC) HEMOGLOBIN A1C Routine 02/06/2016 8:44 AM DEALER CARD ROOM Type 2 diabetes mellitus with chronic kidney disease, without long-term current use of insulin, unspecified CKD stage (HCC) COMPREHENSIVE METABOLIC PANEL Routine 02/06/2016 8:44 AM DEALER CARD ROOM Type 2 diabetes mellitus with chronic kidney disease, without long-term current use of insulin, 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 TSH Routine 02/06/2016 8:44 AM DEALER CARD ROOM Hypothyroidism, adult T4 FREE Routine 02/06/2016 8:44 AM DEALER CARD ROOM Hypothyroidism, adult LIPID PROFILE Routine 02/06/2016 8:44 AM DEALER CARD ROOM Type 2 diabetes mellitus with chronic kidney disease, without long-term current use of insulin, unspecified CKD stage (HCC) documented in this encounter Results * MICROALB/CREAT RATIO URINE RANDOM PANEL (02/06/2016 8:44 AM DEALER CARD ROOM) Creatinine Urine 84 mg/dL [facility] ACCOUNT BILL Microalbumin Urine 0.5 mg/dL [facility] ACCOUNT BILL Microalbumin/Crea tinine Ratio 6 <30 mg/g [facility] ACCOUNT BILL Urine URINE SPECIMEN OBTAINED BY CLEAN CATCH PROCEDURE / Unknown 02/06/2016 8:44 AM DEALER CARD ROOM 02/06/2016 Narrative Resulting Agency Comment [facility] [address] [facility] ??Ana LINARES [phone] Rosana Herrera MD LAB - URINE CHEMISTR Y ORDERABLES [facility] ACCOUNT BILL [address] [place] [address] * LIPID PROFILE (02/06/2016 8:44 AM DEALER CARD ROOM) Cholesterol 148 <200 mg/dL [facility] ACCOUNT BILL Triglycerides 111 <150 mg/dL [facility] ACCOUNT BILL HDL Cholesterol 48 >40 mg/dL [facility] ACCOUNT BILL VLDL Calculated 22 <=30 mg/dL [facility] ACCOUNT BILL LDL Calculated 78 <130 mg/dL [facility] ACCOUNT BILL Blood BLOOD SPECIMEN / Unknown 02/06/2016 8:44 AM DEALER CARD ROOM 02/06/2016 Narrative Resulting Agency Comment [facility] [address] [address] ??Ana LINARES [phone] Rosana Herrera MD LAB - CHEMISTRY MELYSSA CHAHAL [facility] ACCOUNT BILL [address] [place] [address] * (ABNORMAL) HEMOGLOBIN A1C (02/06/2016 8:44 AM DEALER CARD ROOM) Hemoglobin A1c 6.4(H) 4.2 - 6.3 % [facility] ACCOUNT BILL Comment:AVERAGE GLUCOSE MG/D L BLOOD 137 mg/dL Whole Blood BLOOD SPECIMEN WITH EDTA / Unknown 02/06/2016 8:44 AM DEALER CARD ROOM 02/06/2016 Narrative Resulting Agency Comment [facility] [address] [address] ??Ana LINARES [phone] Rosana Herrera MD LAB - CHEMISTRY MELYSSA CHAHAL [facility] ACCOUNT BILL [address] [place] [address] * T4 FREE (02/06/2016 8:44 AM DEALER CARD ROOM) T4 Free 1.07 0.65 - 1.34 ng/dL [facility] ACCOUNT BILL Blood BLOOD SPECIMEN / Unknown 02/06/2016 8:44 AM DEALER CARD ROOM 02/06/2016 Narrative Resulting Agency Comment [facility] [address] [address] ??Ana LINARES [phone] Rosana Herrera MD LAB - CHEMISTRY MELYSSA CHAHAL [facility] ACCOUNT BILL [address] [place] [address] * (ABNORMAL) TSH (02/06/2016 8:44 AM DEALER CARD ROOM) TSH 4.04(H) 0.358 - 3.740 uIU/mL [facility] ACCOUNT BILL Blood BLOOD SPECIMEN / Unknown 02/06/2016 8:44 AM DEALER CARD ROOM 02/06/2016 Narrative Resulting Agency Comment [facility] [address] [facility] ??Ana LINARES [phone] Rosana Herrera MD LAB - CHEMISTRY MELYSSA CHAHAL [facility] ACCOUNT BILL [address] [place] [address] * (ABNORMAL) COMPREHENSIVE METABOLIC PANEL (02/06/2016 8:44 AM DEALER CARD ROOM) Glucose 129(H) 74 - 106 mg/dL [facility] [...] BLOOD SPECIMEN / Unknown 02/06/2016 8:44 AM DEALER CARD ROOM 02/06/2016 Narrative Resulting Agency Comment [facility] [address] [facility] ??Ana LINARES [phone] Rosana Herrera MD LAB - CHEMISTRY MELYSSA CHAHAL [facility] ACCOUNT BILL [address] [place] [address] documented in this encounter Visit Diagnoses Diagnosis [...]
--- OUTSIDE RECORDS SUMMARY | 2024-04-03 02:28 | XMS_ITS | Encounter Summary ---
Author Organization [facility] Address [address] [facility] [place] [address] Care Team Providers Care Relations Specialist Name Role Phone Ricco Andrew MD Unavailable [phone] Reason for Visit * Reason Onset Date Comments MEDICATION REFILL 06/17/2016 Med Question 06/17/2016 Encounter Details Date Type Department Care Team (Late st Contact Info) Description 06/17/2016 Refill [facility] - Family Medicine [address] [place], [place] [phone] Chauncey Herrera MD [address] [place] [phone] MEDICATION REFILL; Med Question Social History [...] st Contact Info) Description 04/07/2024 10:00 AM PIZZA BAKER Office Visit [facility] [id number] [place] [address] [place] [phone] Evelin Blanco APRN-CNP [id number] [place] [phone] 06/06/2024 2:00 PM CDT Office Visit [facility] [phone] [place] [address] Chris Aden MD [id number] [place] [phone] documented as of this encounter Goals Goal Patient Goal Type Associated Problems Recent Progress Patient-Stated? Author Blood Pressure < 140/90 Blood Pressure 96/68(2023 2:34 PM PIZZA BAKER) Rere Vargas Note: Caring for Your High [...] Related Tools, and click ? HBP Trackers.? 8-135-RAT-USA-1 or ( ) National Heart, Lung and Blood [place]: http://www.nhlbi.nih.gov/health/infoctr/index.htm Exercise 5X per week (30 min [...] ? ? [place] Diabetes Association: www.diabetes.org 6-698-LWDHENXH ( ) ? ? [place] Diabetes Association-Support group line: www.professional.diabetes.org ? ? [place] Heart Association: www.heart.org or 9-656-MUZ-USA-1 ( ) [employer] MyPlate: www.choosemyplate.gov documented as of this encounter Visit Diagnoses Diagnosis Hypothyroidism, adult Other specified acquired hypothyroidism documented in this encounter Care Teams Relations Specialist Relationship Specialty [place] [id number] [facility] [address] [place] [address] Ophthalmology 04/06/16 documented as of this encounter
--- OUTSIDE RECORDS SUMMARY | 2024-04-03 02:28 | XMS_ITS ---
Author Organization [facility] Address [address] [place] [address] Care Team Providers Care E Business Project Manager Name Role Phone Ricco Andrew MD Unavailable [phone] Fawn Ramon DPM Unavailable [phone] Chris Aden MD Primary Care Provider [phone] Chris Aden MD Unavailable QMM & AWV - Vibrance Status:Closed (Closed) Start date:12/13/2023 Enrollment date:12/13/2023 Enrollment reason:Identified using claims or encounter data End date:12/13/2023 Close reason:Follow by dynamic observation Continued Care and Services Coordination
--- OUTSIDE RECORDS SUMMARY | 2024-04-03 02:28 | XMS_ITS | Encounter Summary ---
Author Organization [facility] Address [address] [facility] [place] [address] Care Team Providers Care Relations Specialist Name Role Phone Ricco Andrew MD Unavailable [phone] Reason for Visit * Reason Comments Cough Urgent care visit ov er a week ago for dry cough (not much relief with BENZONATATE 100 MG PO CAPS) Encounter Details Date Type Department Care Team (Latest Contact Info) Description 04/07/2018 3:45 PM BRICKLAYER Office Visit [facility] - Family Medicine [address] [place] [address] Chauncey Herrera MD [facility] [address] [phone] Acute bronchitis, unspecified organism (Primary [...] Comments Blood Pressure 122/72 04/07/2018 3:32 PM BRICKLAYER Pulse 97 04/07/2018 3:32 PM BRICKLAYER Temperature 37.1 ??C (98.7 ??F) 04/07/2018 3:32 PM CS T Respiratory Rate 18 04/07/2018 3:32 PM BRICKLAYER Oxygen Saturation 98% 04/07/2018 3:32 PM BRICKLAYER Inhaled Oxygen Concentration - - Weight 81.6 kg (180 lb) 04/07/2018 3:32 PM BRICKLAYER Height 165.1 cm (5' 5) 04/07/2018 3:32 PM BRICKLAYER Body Mass Index 29.95 04/07/2018 3:32 PM BRICKLAYER documented in this encounter Patient Instructions * Patient Instructions* Chauncey Herrera MD - 04/07/2018 4:10 PM BRICKLAYER Images from the original note were not included. Get chest X-ray today at radiology Directions to Radiology Registration: Take the elevator down to the lobby. Take a Left out of the elevators and then turn Right at the first hallway. Walk past the double doors and the waterfall on your left to [facility] where you will register for [...] refuse treatment. The above information is an wheel braider only. It is not intended as medical advice for individual conditions or treatments. Talk to your doctor, nurse or pharmacist before following any medical regimen to see if it is safe and effective for you. ?? Copyright [employer] 2017 Information is for End User's use only and may not be sold, redistributed or otherwise used for commercial purposes. All illustrations and images included in CareNotes?? are the copyrighted property of apartum or [address] KLAYER documented in this encounter Progress Notes * [...] Follow up PRN . Chauncey Herrera MD KLAYER documented in this encounter Miscellaneous Notes * Addendum Note - Chauncey Herrera MD - 04/07/2018 9:52 PM CSTAddended by: CHAUNCEY HERRERA on: 04/07/2018 09:52 PM Modules accepted: Orders KLAYER documented in this encounter Plan of Treatment Upcoming Encounters Date Type Department Care Team (Late st Contact Info) Description 04/07/2024 10:00 AM BRICKLAYER Office Visit [address] [address] Evelin Blanco, JOSETTE-DENIS [id number] [place] [phone] 06/06/2024 2:00 PM CDT Office Visit [address] [address] Chris Aden MD [address] [place] [phone] documented as of this encounter Goals Goal Patient Goal Type Associated Problems Recent Progress Patient-Stated? Author Blood Pressure < 140/90 Blood Pressure 96/68(2023 2:34 PM BRICKLAYER) Rere aVrgas Note: Caring for Your High Blood Pressure [...] Related Tools, and click ? HBP Trackers.? 3-744-JYQ-USA-1 or ( ) National Heart, Lung and Blood [place]: http://www.nhlbi.nih.gov/health/infoctr/index.htm Blood Pressure < 140/90 Blood Pressure 96/68(2023 2:34 PM BRICKLAYER) Rere Vargas Note: Caring for Your High [...] Related Tools, and click ? HBP Trackers.? 1-949-DHF-USA-1 or ( ) National Heart, Lung and Blood [place]: http://www.nhlbi.nih.gov/health/infoctr/index.htm Exercise 5X per week (30 min [...] diabetes: ? ? [place] Diabetes Association: www.diabetes.org 8-306-JETFITYE ( ) ? ? [place] Diabetes Association-Support group line: www.professional.diabetes.org ? ? [place] Heart Association: www.heart.org or 3-674-MDZ-USA-1 ( ) [employer] MyPlate: www.WrapMailmyplate.gov Have labs drawn Lifestyle Rere Vargas Note: [...] * XR CHEST 2VW (04/07/2018 4:35 PM BRICKLAYER) Anatomical Region Laterality Modality Chest Radiographic Apolonia ging 04/07/2018 5:12 PM BRICKLAYER Narrative 04/07/2018 5:13 PM BRICKLAYER Chest Two Views History: Acute bronchitis, unspecified [...] organism documented in this encounter Care Teams Relations Specialist Relationship Specialty [place] [id number] [phone] Ophthalmology 04/06/16 documented as of this encounter
--- OUTSIDE RECORDS SUMMARY | 2024-04-03 02:28 | XMS_ITS | Encounter Summary ---
Author Organization [facility] Address [address] [facility] [place] [address] Care Team Providers Care Dry Wall Sprayer Name Role Phone Unavailable Primary Care Provider Unavailabl e Reason for Visit * Reason Onset Date Comments Pre-op Clearance 03/30/2016 Encounter Details Date Type Department Care Team (Late st Contact Info) Description 03/30/2016 Telephone [facility] - Family Medicine [address] [place], [place] [phone] Rosana Solo MD [address] [place] [phone] Pre-op Clearance Social History Tobacco Use [...] CST appt scheduled on 04/06/16 at 1:20 HER OPERATOR * Telephone Encounter - Rosana Solo MD [...] of his planned surgery. Rosana Solo MD HER OPERATOR documented in this encounter Plan of Treatment Upcoming Encounters Date Type Department Care Team (Late st Contact Info) Description 04/07/2024 10:00 AM BUNCHER OPERATOR Office Visit [facility] [phone] [place] [address] Evelin Blanco, BUSINESS PROCESS ARCHITECT-ANALYTICAL STRATEGIST [id number] [place] [address] 06/06/2024 2:00 PM CDT Office Visit [facility] [id number] [place] [address] Chris Aden [place] [phone] [place] [phone] documented as of this encounter Goals Goal Patient Goal Type Associated Problems Recent Progress Patient-Stated? Author Blood Pressure < 140/90 Blood Pressure 96/68(2023 2:34 PM BUNCHER OPERATOR) Rere Vargas Note: Caring for Your [...] Related Tools, and click ? HBP Trackers.? 7-262-DSC-USA-1 or ( ) National Heart, Lung and Blood [place]: http://www.nhlbi.nih.gov/health/infoctr/index.htm Exercise 5X per week (30 min [...] ? ? [place] Diabetes Association: www.diabetes.org 7-393-OVBZRXDY ( ) ? ? [place] Diabetes Association-Support group line: www.professional.diabetes.org ? ? [place] Heart Association: www.heart.org or 1-891-WGH-USA-1 ( ) [employer] MyPlate: www.choosemyplate.gov documented as of this encounter Visit Diagnoses Not on filedocumented in this encounter
== END 2024-04-01 15:14 | disposition swing bed (61) | DRG 690 ==
LOC: ANHED 14:43 → ANHIMU 20:12 → ANH3MEDSUR 03-30 14:40 → ANHIMU 04-04 13:34
PROVIDERS: Internal Medicine; Admitting Provider General Practice; Emergency Provider Student in an Organized Health Care Education/Training Program; Visit Provider Internal Medicine
DX: N39.0 Urinary tract infection, site not specified (principal); E22.2 Syndrome of inappropriate secretion of antidiuretic hormone; J84.9 Interstitial pulmonary disease, unspecified; N18.30 Chronic kidney disease, stage 3 unspecified; E11.22 Type 2 diabetes mellitus with diabetic chronic kidney disease; E03.9 Hypothyroidism, unspecified; F32.A Depression, unspecified; F03.90 Unspecified dementia, unspecified severity, without behavioral disturbance, psychotic disturbance, mood disturbance, and anxiety; S52.021D Displaced fracture of olecranon process without intraarticular extension of right ulna, subsequent encounter for closed fracture with routine healing; Z79.82 Long term (current) use of aspirin
CPT/HCPCS: 36415; 70450; 71045; 71275; 73080; 80053; 80143; 80179; 80202; 80307; 81001; 82077; 82550; 82565; 82728; 82948; 83540; 83550; 83605; 83735; 84443; 84484; 85025; 85610; 85730; 86140; 87040; 87086; 87186; 92610; 93005; 96365; 96366; 96367; 97110; 97161; 97166; 99285; A9270; J0692; J0696; J1650; J1815; J3370; J3475; J7120; Q9967

== ENCOUNTER 2024-04-05 20:58 | Inpatient (IN) | payer MEDICARE, SELFPAY ==
--- NOTE | ~2024-04-05 | CT_ITS ---
EXAMINATION: CT brain wo con DATE: 04/12/2024 12:31 INDICATION: Right-sided hemiparesis TECHNIQUE: Computed tomography (CT) of the head was performed without intravenous contrast. Sagittal and coronal reconstructions were performed. The mA was adjusted according to patient size. Iterative reconstruction technique was employed. The dose-length product was 605.33 mGy-cm. COMPARISON: head CT dated 04/05/2024 and brain MR dated 04/06/2024 FINDINGS: No acute intracranial hemorrhage, acute infarction or abnormal extra axial fluid collection. There is mild scattered white matter hypoattenuation consistent with chronic small vessel ischemic disease. S ymmetric prominence of the sulci and ventricles consistent with moderate age-appropriate diffuse cere bral volume loss. No mass/mass effect. Changes of bilateral intraocular lens replacement. The orbits and mastoid air cells are normal. Mild mucosal thickening in the right ethmoid, sphenoid and maxillar y sinuses. IMPRESSION: 1. No acute intracranial process. 2. Stable appearance of age-related changes including moderate diffuse on loss and mild scattered whi te matter hypoattenuation consistent with chronic small vessel ischemic disease. Reviewed, dictated and finalized at location A. OMS COMPLIANCE MANAGER IMPRESSION: 1. No acute intracranial process. 2. Stable appearance of age-related changes including moderate diffuse on loss and mild scattered white matter hypoattenuation consistent with chronic small v essel ischemic disease.
--- NOTE | ~2024-04-05 | MR_ITS ---
EXAMINATION: MR brain IAC wo con DATE: 04/06/2024 10:23 INDICATION: Stroke. TECHNIQUE: Magnetic resonance imaging (MRI) of the brain, brainstem, and internal auditory canals was performed without intravenous contrast. COMPARISON: Brain MRI 03/21/2022, head CT 04/05/2024 FINDINGS: There is diffuse brain volume loss. There are scattered areas of nonspecific increased T2-w eighted signal intensity in the cerebral white matter. There is no intracranial hemorrhage, acute inf arction, or abnormal intracranial mass lesion. The ventricles are normal in size. There is mild mucos al thickening in the paranasal sinuses. There is a small left mastoid effusion. There are likely jacobson ges of ocular lens replacement surgeries. IMPRESSION: 1. Moderate nonspecific cerebral white matter disease, which likely represents chronic small vessel i schemic disease, mildly worsened from 03/21/22. Reviewed, dictated and finalized at location A. ER TESTER IMPRESSION: 1. Moderate nonspecific cerebral white matter disease, which likely represents chronic small vessel ischemic disease, mildly worsened from 03/21/22.
[2024-04-05 20:00] VITALS: PULSE 68
--- NOTE | 2024-04-05 20:03 | ADMGEN ---
This patient, Mk Sanches, was admitted to Medical Room 342-01. Patient/family oriented to hospital policies and general routines including ID bracelet, bed and alarms, visiting hours, pain management, procedures, bathroom and other care routines, personal items, smoking policy, room service/diet, and visiting hours. Information on how to activate the Rapid Response Team has been discussed. Patient/Family are encouraged to report perceived risks to care and to ask questions if they do not understand what they are told or what they should do.
[2024-04-05 20:55] VITALS: BP 135/69; PULSE 74; RESP 16; TEMP 36.6; O2SAT 94
--- NOTE | 2024-04-05 20:55 | P.HP_ITS ---
H&P: HPI History of Present Illness Date/Time: 04/05/24 20:55 Chief Complaint: Altered mental status Narrative: This is an 88-year-old male with past medical history significant for dementia, type diabetes mellitus, chronic kidney disease, depression. Patient comes as a transfer from outside facility due to altered mental status and possible stroke workup. Patient is unable to provide any meaningful history which has been obtained upon reviewing medical records. Preliminary workup is significant for CT of the head with lacunar infarct. EXAMINATION: CT brain wo con DATE: 04/05/2024 11:42 INDICATION: Altered mental status with increasing confusion. TECHNIQUE: Computed tomography (CT) of the head was performed without intravenous contrast. Sagittal and coronal reconstructions were performed. The m A was adjusted according to patient size. Iterative reconstruction technique was employed. The dose-length product was 681.00 mGy-cm. COMPARISON: head CT dated 03/27/24 FINDINGS: No acute intracranial hemorrhage, acute infarction or abnormal extra axial fluid collection. Small old lacunar infarct in the left lentiform nucleus. There is mild scattered white matter hypoattenuation consistent with chronic small vessel ischemic disease. Symmetric prominence of the sulci and ventricles consistent with moderate age-appropriate diffuse cerebral volume loss. No mass/mass effect. Changes of bilateral intraocular lens replacement. The orbits and mastoid air cells are normal. Mild mucosal thickening in the bilateral ethmoid and right sphenoid sinuses. IMPRESSION: 1. Aging brain with small old lacunar infarct at the left lentiform nucleus. No acute intracranial process. XR chest PICC line 04/05/2024 16:19 Indication: PICC line placement Procedure: AP portable chest Comparison: Comparison to multiple prior studies sequentially, with oldest reviewed study dated 02/13/2024. Findings: Left subclavian PICC line tip in the SVC. Heart size normal. Subtle left perihilar airspace disease, suspicious for pneumonia. No pleural effusion. Right costophrenic angle is excluded. No pneumothorax. Impression: 1: Left perihilar infiltrates, suspicious for pneumonia. Review of Systems Review of Systems: ROS unobtainable: Yes unobtainable due to medical condition (Dementia) [facility] Past Medical History Medical History Gangrenous cholecystitis Chronic kidney disease, stage 3 Baseline creatinine between 1.2 and 1.30. GFR is typically in the high 40s or lower 50s. Type 2 diabetes mellitus Hypothyroidism Depression Dementia Surgical History Surgical History Hx laparoscopic cholecystectomy 07/10/21 History of foot surgery Debridement of diabetic foot ulcer. 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 Code status: Full code. Smoking status: Former smoker Smokeless tobacco user: chewing tobacco Additional smoking assessment comments: Quit chewing tobacco in December 2020. Alcohol intake: unknown Substance use: unknown Substance use type: does not use Do You Feel Safe in your Home?: Yes Lack of Transportation: No Lack of Food: Never True Current Housing: I Have Housing Concerned About Future Housing: No Difficulty Paying Gas/Electric Bills: No Difficulty Paying for Meds: No Currently Unemployed: No Education: High School Diploma/GED Difficulty w/ Childcare or Family Care: No Living arrangements: with family Additional living arrangements comments: Lives with his daughter Cassie in [place]. 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 Gender identity (if verbalized by the patient): Male Sexual Orientation (if Verbalized by the Patient): Straight or Heterosexual Spiritual care concerns: No Meds Home Medications and Allergies Home Medications ?Medication ?Instructions ?Recorded ?Confirmed ?Type glipizide 5 mg tablet 5 mg PO BID 10/04/19 04/05/24 History levothyroxine 75 mcg tablet 75 mcg PO DAILY 10/04/19 04/05/24 History memantine 5 mg tablet 5 mg PO BID 10/04/19 04/05/24 History aspirin 81 mg tablet,delayed 81 mg PO DAILY 11/01/19 04/05/24 History release (Adult Low Dose Aspirin) sennosides 8.6 mg-docusate sodium 1 tab-cap PO DAILY PRN constipation 03/27/24 04/05/24 History 50 mg tablet (Senna Plus) atorvastatin 40 mg tablet 40 mg PO DAILY #1 tablet 04/05/24 04/05/24 Rx clopidogrel 75 mg tablet 75 mg PO QAM #1 tablet 04/05/24 04/05/24 Rx piperacillin-tazobactam 2.25 gram 2.25 g IV Q6HR #3 ea 04/05/24 04/05/24 Rx intravenous solution Allergies Allergy/AdvReac Type Severity Reaction Status Date / Time peach Allergy Unknown Unknown Verified 04/01/24 17:16 ibuprofen Allergy Rash Verified 03/27/24 14:09 Sulfa (Sulfonamide Allergy Rash Verified 03/27/24 14:09 Antibiotics) Exam Const: General: comfortable, no acute distress, well developed, alert, awake and average body habitus Nutritional Appearance: average body habitus Orientation/consciousness: oriented to person HENMT: Head: normal to inspection, normocephalic and atraumatic Ears: hearing grossly normal bilaterally Face/Nose/Sinus: normal facial exam Face and sinus: normal facial exam Eyes: General: appearance normal, both eyes and all related structures Pupils: Equal, round and reactive pupils present EOM: EOMs intact bilaterally Neck: Neck: full ROM, no lymphadenopathy and no JVD Thyroid: thyroid normal Lymphatic: no lymphadenopathy noted Resp: Effort & Inspection: normal respiratory effort and able to speak in complete sentences Auscultation: clear to auscultation bilaterally Cardio: Jugular venous distension: no JVD Rate: regular rate Rhythm: regular rhythm Heart sounds: S1 normal heart sound present and S2 normal heart sound present GI: GI Palp: Yes Soft to palpation and Yes No hepatosplenomegaly present : General: Yes deferred Skin: Rashes: no rashes Wounds: no wounds Neuro: General: oriented to person and Unable to assess gait Cranial nerves: Yes CN's II-XII intact bilaterally and Yes Equal, round and reactive pupils present Cognition (Neuro): abnormal cognition (Disoriented) Speech: normal speech Gait exam (Neuro): Unable to assess gait Motor exam (neuro): 5/5 motor strength present throughout Extrem: General: normal to inspection, full ROM, no joint enlargement and no pedal edema Other: Right upper extremity brace in place Assessment and Plan Assessment and plan (1) Acute encephalopathy: Code(s): G93.40 - Encephalopathy, unspecified Status: Acute Assessment and Plan: Admit to [facility] Neuro checks q.4 MRI of the brain in a.m. CT head reviewed (2) Lacunar infarction: Code(s): I63.81 - Other cerebral infarction due to occlusion or stenosis of small artery Status: Acute Assessment and Plan: MRI of the brain in a.m. 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 status Diabetes mellitus complication status: with kidney complications Diabetes mellitus complication detail: with chronic kidney disease Chronic kidney disease stage: stage 3 (moderate) Chronic kidney disease stage 3 subtype: unspecified whether 3a or 3b Qualified Code(s): E11.22 - Type 2 diabetes mellitus with diabetic chronic kidney disease; N18.30 - Chronic kidney disease, stage 3 unspecified Code(s): E11.9 - Type 2 diabetes mellitus without complications Status: Acute Assessment and Plan: Hold glipizide (5) Chronic kidney disease, stage 3: Qualifiers: Chronic kidney disease stage 3 subtype: unspecified whether 3a or 3b Qualified Code(s): N18.30 - Chronic kidney disease, stage 3 unspecified Code(s): N18.30 - Chronic kidney disease, stage 3 unspecified Status: Acute Assessment and Plan: Continue to monitor her BUN and creatinine Daily BMP Hospitalist MIPS Advance Care Plan I have confirmed that the patient's Advanced Care Plan is present, code status is documented, or surrogate decision maker is listed in patient medical record.: Yes Medication Reconciliation I have utilized all available resources to obtain, update and review the patients current medications (includes all prescriptions, OTC, herbals, cannabis, and nutritional supplements).: Yes
[2024-04-05] MEDS: DEXTROSE 5%/0.45% SOD CHL 1,000 ML 100 ML IV CONT (21:16)
[2024-04-05 22:37] LABS: MRSA (PCR) NOT DETECTED (NOT DETECTE)
[2024-04-05 22:43] LABS: Magnesium 2.2 mg/dL (1.6-2.3); Phosphorus 2.8 mg/dL (2.5-4.5)
[2024-04-05 22:45] LABS: Anion Gap 11 mmol/L (4-12); Blood Urea Nitrogen 15 mg/dL (9-20); Carbon Dioxide 24 mmol/L (22-30); Chloride 107 mmol/L (98-107); Estimated Glomerular Filt Rate > 60; Glucose 164 mg/dL (65-110); Potassium 3.5 mmol/L (3.4-5.0); Sodium 142 mmol/L (137-145)
[2024-04-05 23:08] LABS: Lactic Acid Reflex 1.1 mmol/L (0.7-2.0)
[2024-04-05 23:18] LABS: INR 1.2; Prothrombin Time 16.1 Seconds (11.1-14.7)
[2024-04-05 23:19] LABS: Glucose Point of Care 178 mg/dl (65-105)
[2024-04-05 23:19] LABS: Partial Thromboplastin Time 37.1 Seconds (22.3-36.8)
[2024-04-06] VITALS (9 sets, daily range): BP systolic 125–147; BP diastolic 68–82; PULSE 56–82; RESP 16; TEMP 36.3–36.5; O2SAT 95–97; BMI 18.6
--- NOTE | 2024-04-06 | ECHO_ITS ---
Patient Info Name: Mk Sanches Age: 88 years : 1935 Gender: Male Ht: 67 in Wt: 137 lbs BSA: 1.71 m2 HR: 63 bpm BP: 125 / 68 mmHg Technical Quality: Fair Exam Date: 04/06/2024 2:15 PM Exam Location: Echo Lab Patient Status: Inpatient Admit Date: 04/05/2024 Staff Ordering Physician: Danica Lazo APRN Library Aide: Maria Del Carmen Taylor RDCS Attending Provider: Danica Lazo APRN Referring Physician: Clifton TREVINO; Exam Type: CA echo dop bubble study w con Study Info Indications - CVA Complete two-dimentional, color flow and Doppler transthoracic echocardiogram is performed with agitated saline and with contrast to opacify the left ventricle and to improve the delineation of the left ventricle endocardial borders. Contrast/Agitated Saline Contrast/Ag. Saline: Agitated Saline Amount: 20.00 ml Existing IV Access: Yes Contrast/Ag. Saline: Definity Amount: 2.00 ml Existing IV Access: Yes Summary 1. Definity contrast administered improved wall motion interpretation. 2. Left ventricular chamber dimension is normal. 3. Left ventricular systolic function is normal, estimated at 60-65%. 4. There is moderate concentric increased left ventricular wall thickness. 5. The left ventricular diastolic function is grade I diastolic dysfunction. 6. E/e' 6 is not elevated. Left Ventricle Definity contrast administered improved wall motion interpretation. E/e' 6 is not elevated. Left ventricular chamber dimension is normal. Left ventricular systolic function is normal, estimated at 60-65%. There is moderate concentric increased left ventricular wall thickness. The left ventricular diastolic function is grade I diastolic dysfunction. Right Ventricle Right ventricular systolic function is normal and with normal TAPSE 1.8 cm. Right ventricular chamber dimension is normal. Left Atria Left atrial chamber dimension is normal. Right Atria Right atrial chamber dimension is normal. Atrial Septum Agitated saline injection with and without valsalva maneuver opacified right side cardiac chambers without shunt to left side cardiac chambers. Intact interatrial septum visualized by 2D and agitated saline imaging. Aortic Valve The aortic valve is trileaflet. There is no aortic valve stenosis. There is no aortic valve regurgitation. Pulmonic Valve There is no pulmonic regurgitation. Mitral Valve There is no mitral valve stenosis. There is no mitral valve regurgitation. Tricuspid Valve There is no tricuspid valve regurgitation. Pericardium/Pleural There is no pericardial effusion. Inferior Vena Cava Normal inferior vena cava with >50% collapse upon inspiration consistent with normal right atrial pressure, 5 mmHg. Aorta The aortic root size at the sinus of Valsalva is normal. Left Ventricular Outflow Tract Name Value Normal LVOT 2D LVOT Diameter 2.4 cm LVOT Doppler LVOT Peak Gradient 2 mmHg LVOT Mean Gradient 1 mmHg LVOT VTI 17 cm LVOT VTI/AV VTI Ratio 0.8 LVOT Stroke Volume 78 ml LVOT CO 4.1 l/min LVOT CI 2.4 l/min/m2 Pulmonic Valve Name Value Normal RVOT Doppler RVOT Peak Gradient 1 mmHg PV Doppler PV Peak Gradient 1 mmHg Mitral Valve Name Value Normal MV Doppler MV Decel Eddy 490 cm/s2 MV PHT 34 ms MV Area (PHT) 6.5 cm2 4.0-5.0 MV Diastolic Function MV E Peak Velocity 57 cm/s MV A Peak Velocity 49 cm/s MV E/A 1.2 MV Decel Time 117 ms MV Annular TDI MV E/e' (Septal) 6.7 <=8.0 MV E/e' (Lateral) 5.9 <=8.0 MV E/e' (Average) 6.3 Tricuspid Valve Name Value Normal Estimated PAP/RSVP RA Pressure 5 mmHg <=5 Aorta Name Value Normal Ascending Aorta Ao Root Diameter (MM) 3.9 cm Ao Root Diam Index (MM) 2.3 cm/m2 Aortic Valve Name Value Normal AV Doppler AV Peak Velocity 92 cm/s AV Peak Gradient 3 mmHg AV Mean Gradient 2 mmHg AV VTI 21 cm AV Area (Cont Eq VTI) 3.7 cm2 >=3.0 AV Area (Cont Eq Kalia) 3.7 cm2 AV Regurgitation 2D LVOT Area 4.5 cm2 Ventricles Name Value Normal LV Dimensions 2D/MM IVS Diastolic Thickness (2D) 1.8 cm 0.6-1.0 LVID Diastole (2D) 3.0 cm 4.2-5.8 LVIW Diastolic Thickness (2D) 1.9 cm 0.6-1.0 LVID Systole (2D) 2.1 cm 2.5-4.0 LVOT Diameter 2.4 cm LV Mass (2D Cubed) 229.99 g 88.00-224.00 LV Mass Index (2D Cubed) 134 g/m2 49-115 Relative Wall Thickness (2D) 1.28 LV Fractional Shortening/Ejection Fraction 2D/MM LV Fractional Shortening (2D) 28 % 25-43 LV EF (2D Teicholz) 56 % 52-72 LV Diastolic Volume (4C MOD) 54 ml LV EF (4C MOD) 51 % LV Diastolic Volume (2C MOD) 54 ml LV EF (2C MOD) 61 % LV Diastolic Volume (BP MOD) 59 ml 62-150 LV Diastolic Volume Index (BP MOD) 35 ml/m2 34-74 LV Systolic Volume (BP MOD) 24 ml 21-61 LV Systolic Volume Index (BP MOD) 14 ml/m2 11-31 LV EF (BP MOD) 59 % 52-72 LV Diastolic Length (4C) 7.8 cm LV Systolic Length (4C) 5.9 cm LV Stroke Volume (4C MOD) 28 ml Atria Name Value Normal LA Dimensions LA Dimension (MM) 3.8 cm 3.0-4.1 LA Volume (4C A-L) 38 ml LA Volume (BP A-L) 49 ml RA Dimensions RA Area (4C) 10.3 cm2 <=18.0 Report Signatures
[2024-04-06] MEDS: PIPERACILLIN/TAZ 2.25G/NS 50ML 2.25 GM/50 ML BAG IVPB ×4 (00:39→17:22)
[2024-04-06 05:37] LABS: Basophils Absolute Auto 0.1 K/mm3 (0.0-0.1); Basophils Percent Auto 1.1 % (0.2-1.2); Eosinophils Absolute Auto 0.4 K/mm3 (0-0.3); Eosinophils Percent Auto 7.6 % (0-4.4); Hematocrit 27.9 % (42.0-52.0); Immature Granulocyte Absolute 0.04 K/mm3 (0.00-0.031); Immature Granulocyte Percent A 0.7 % (0-0.5); Lymphocytes Absolute Auto 0.87 K/mm3 (0.9-3.2); Lymphocytes Percent Auto 16.2 % (18.3-44.2); Mean Corpuscular HGB Conc 32.3 g/dl (32-36); Mean Corpuscular Hemoglobin 31.4 pg (26-34); Mean Corpuscular Volume 97.2 fl (80-100); Mean Platelet Volume 9.6 fl (7.4-10.4); Monocytes Absolute Auto 0.5 K/mm3 (0.1-0.6); Monocytes Percent Auto 8.7 % (2.6-8.5); Neutrophils Absolute Auto 3.5 K/mm3 (1.3-6.7); Neutrophils Percent Auto 65.7 % (45.5-73.1); Platelet Count Result 257 k/mm3 (150-375); Red Blood Count 2.87 M/mm3 (4.6-6.20); Red Cell Distribution Width 14.5 % (11.5-14.5); White Blood Count 5.4 K/mm3 (4.5-10.0)
[2024-04-06] MEDS: DEXTROSE 5%/0.45% SOD CHL 1,000 ML 100 ML IV CONT ×2 (05:37→17:30)
[2024-04-06 05:48] LABS: Alanine Aminotransferase 15 U/L (6-50); Alkaline Phosphatase 50 U/L (38-126); Anion Gap 4 mmol/L (4-12); Aspartate Amino Transferase 21 U/L (17-59); Bilirubin,Total 0.5 mg/dL (0.2-1.3); Blood Urea Nitrogen 14 mg/dL (9-20); Calcium 8.8 mg/dL (8.4-10.2); Carbon Dioxide 29 mmol/L (22-30); Chloride 107 mmol/L (98-107); Estimated Glomerular Filt Rate > 60; Glucose 223 mg/dL (65-110); Potassium 3.1 mmol/L (3.4-5.0); Sodium 140 mmol/L (137-145)
[2024-04-06 10:59] LABS: Basophils Absolute Auto 0.1 K/mm3 (0.0-0.1); Basophils Percent Auto 1.5 % (0.2-1.2); Eosinophils Absolute Auto 0.4 K/mm3 (0-0.3); Eosinophils Percent Auto 7.7 % (0-4.4); Hematocrit 28.3 % (42.0-52.0); Immature Granulocyte Absolute 0.03 K/mm3 (0.00-0.031); Immature Granulocyte Percent A 0.6 % (0-0.5); Lymphocytes Absolute Auto 0.87 K/mm3 (0.9-3.2); Mean Corpuscular HGB Conc 31.8 g/dl (32-36); Mean Corpuscular Hemoglobin 30.8 pg (26-34); Mean Corpuscular Volume 96.9 fl (80-100); Mean Platelet Volume 9.6 fl (7.4-10.4); Monocytes Absolute Auto 0.5 K/mm3 (0.1-0.6); Monocytes Percent Auto 8.3 % (2.6-8.5); Neutrophils Absolute Auto 3.6 K/mm3 (1.3-6.7); Neutrophils Percent Auto 65.9 % (45.5-73.1); Platelet Count Result 293 k/mm3 (150-375); Red Blood Count 2.92 M/mm3 (4.6-6.20); Red Cell Distribution Width 14.5 % (11.5-14.5); White Blood Count 5.4 K/mm3 (4.5-10.0)
[2024-04-06 11:07] LABS: Alanine Aminotransferase 16 U/L (6-50); Alkaline Phosphatase 51 U/L (38-126); Anion Gap 4 mmol/L (4-12); Aspartate Amino Transferase 25 U/L (17-59); Bilirubin,Total 0.5 mg/dL (0.2-1.3); Blood Urea Nitrogen 13 mg/dL (9-20); Calcium 8.8 mg/dL (8.4-10.2); Carbon Dioxide 29 mmol/L (22-30); Chloride 106 mmol/L (98-107); Estimated Glomerular Filt Rate > 60; Glucose 223 mg/dL (65-110); Magnesium 1.9 mg/dL (1.6-2.3); Potassium 2.9 mmol/L (3.4-5.0); Sodium 139 mmol/L (137-145)
[2024-04-06] MEDS: KCL 40 MEQ/WATER 100 ML 100 ML 25 ML IVPB (11:08)
--- NOTE | 2024-04-06 11:10 | P.PNIM_ITS ---
Progress Note: A&P Assessment and Plan (1) Lacunar infarction: Code(s): I63.81 - Other cerebral infarction due to occlusion or stenosis of small artery Status: Acute Assessment and Plan: patient was having episodes of altered mental status and became obtunded upon arrival to [facility] bed initially it appeared patient was suffering from drug-induced encephalopathy from the cefepime and Remeron which both were stopped. * CT Head 03/27/2024 at [place] showed no acute intracranial process * CT Head 04/05/2024: with old lacunar infarct which likely a subacute occurred between 03/27-04/05 * Neurology consulted * currently on ASA * Started on Plavix and statin once able to have oral pills or peg tube placed * Echo with bubble study pending * NPO * swallow evaluation * MRI pending (2) Acute encephalopathy: Code(s): G93.40 - Encephalopathy, unspecified Status: Acute Assessment and Plan: Patient with potential drug-induced encephalopathy secondary to Remeron or cefepime * patient had been switched to Zosyn have 3 more doses to complete therapy * neuro checks * currently NPO pending swallow evaluation * PICC line placed * will start TPN for nutrition * may need PEG tube placement if no improvement * Patient does have a history of Dementia * Possible EEG and spinal tap to evaluate for encephalitis per neurology (3) Physical deconditioning: Code(s): R53.81 - Other malaise Status: Acute Assessment and Plan: * Will need PT/OT re-evaluation and likely rehab when stable (4) Protein calorie malnutrition: Code(s): E46 - Unspecified protein-calorie malnutrition Status: Acute Assessment and Plan: * NPO * Swallow evaluation * TPN started * may need peg tube if no improvement * consulted dietitian * monitor and replenish electrolytes (5) Dementia: Code(s): F03.90 - Unspecified dementia, unspecified severity, without behavioral disturbance, psychotic disturbance, mood disturbance, and anxiety Status: Acute Assessment and Plan: * Holding Namenda NPO Plan Full code per patient DVT prophylaxis: SCD's Stress ulcer prophylaxis: NA PT/OT notes: PT/OT pending Disposition: patient continues admission to the medical unit for further evaluation and treatment of altered mental status with acute encephalopathy possible secondary to drug induced or new lacunar infarct. Patient is not eating and was initiated on TPN with a swallow evaluation may need PEG tube placement if no improvement. spoke with patient's daughter Cassie who is next of kin and at this time does want to proceed if he does need a PEG to she would also like to bring patient back home with her will talk to care coordination. Time Spent With Patient Time with patient: 15 - 25 minutes Subjective Date/time seen: 04/06/24 11:10 Interval history: Patient is an 88-year-old male who was transferred from [facility] for further evaluation and treatment of altered mental status failure to thrive and likely new lacunar stroke. CT head 04/05/15 which showed an old lacunar infarct however his previous CT head on 03/27/2024 showed no intracranial process this is likely subacute with possible cause of altered mental status. spoke with patient's daughter due to concerns inability to have any nutrition at this time and is agreed patient will be transferred back to [facility] to initiate TPN vs PEG to pending evaluation by speech therapy and barium swallow if patient able to participate and consult to Neurology for further evaluation and recommendations. 04/06/24 Patient more alert today attempted to work with PT and responded to his name, TPN started waiting on Speech evaluation. CXR showing possible PNA previously treated but may be aspiration pna. Family at bedside updated. possible EEG and spinal tap per neurology. Review of Systems Review of Systems: ROS unobtainable: Yes unobtainable due to medical condition and unobtainable due to mental status Exam Narrative: General: Alert and oriented x1 to name, mild- moderately malnourished and no oral intake at this time Eyes: PERRLA, sclera clear ENT:dry mucous membranes, nasal passages clear Neck: supple, no JVD, no adenopathy, trachea midline Cardiac: Normal S1 and S2. RRR, No murmur, gallops or friction rubs, peripheral pulses intact. Respiratory: Lungs clear to auscultation, no adventitious lung sounds, currently on room air Gastrointestinal: soft, non-distended, non-tender, normoactive bowel sounds. : voiding without difficulty. Neuro: tracking and made eye contact today still not answering questions appropriately and only responding to painful stimuli unable to follow commands Objective Data Vital Signs Vital Signs: Vital Signs - 24 hr 04/05/24 20:00 04/05/24 20:00 04/05/24 20:55 Temperature 97.9 F Pulse Rate 68 74 Respiratory Rate 16 Blood Pressure 135/69 Pulse Oximetry 94 Oxygen Delivery Room Air 04/06/24 00:00 04/06/24 04:00 04/06/24 06:00 Temperature 97.6 F Pulse Rate 62 69 63 Respiratory Rate 16 Blood Pressure 125/68 Pulse Oximetry 95 Oxygen Delivery Intake/Output Intake/Output: Intake & Output 04/03/24 04/04/24 04/05/24 04/06/24 23:59 23:59 23:59 23:59 Intake Total 935 Output Total 200 Balance 735 Meds/Results Medications: Active Medications Generic Name Dose Route Start Last Admin Trade Name Freq PRN Reason Stop Dose Admin Al Hydrox/Mg Hydrox/Simethicone 30 ml 04/05/24 20:58 Mag Hydrox/Al Hydrox/Simeth 30 Ml Udc PO QID PRN Dyspepsia Aspirin 81 mg 04/06/24 09:00 04/06/24 10:58 Aspirin 81 Mg Enteric Tablet PO Not Given DAILY DANIELLE Atorvastatin Calcium 40 mg 04/06/24 09:00 04/06/24 10:58 Atorvastatin 40 Mg Tablet PO Not Given DAILY DANIELLE Clopidogrel Bisulfate 75 mg 04/06/24 09:00 04/06/24 10:58 Clopidogrel Bisulfate 75 Mg Tablet PO Not Given QAM DANIELLE Dextrose 12.5 gm 04/05/24 20:34 Dextrose 50% 25 Gm/50 Ml Syringe IV PUSH PRN PRN Hypoglycemia Protocol Glucagon 1 mg 04/05/24 20:34 Glucagon For Inj 1 Mg Vial IM PRN PRN Hypoglycemia Protocol Glucose 15 gm 04/05/24 20:34 Glucose Oral Gel 15 Gm Of Glucse In 37.5 Gm Tube PO PRN PRN Hypoglycemia Protocol Dextrose/Sodium Chloride 1,000 mls @ 100 mls/hr 04/05/24 20:35 04/06/24 05:37 Dextrose 5% Sodium Chloride 0.45% IV CONT 100 mls/hr .Q10H DANIELLE Administration Dextrose 1,000 mls @ 100 mls/hr 04/05/24 20:34 Dextrose 5% 1,000 Ml IVPB PRN PRN Hypoglycemia Protocol Piperacillin Sod/Tazobactam Sod 2.25 gm in 50 mls @ 100 mls/hr 04/06/24 00:00 04/06/24 06:01 Zosyn 2.25 Gm/Ns 50 Ml IVPB 04/06/24 23:59 Infused Q6H DANIELLE Infusion Potassium Chloride 100 mls @ 25 mls/hr 04/06/24 09:13 04/06/24 11:08 Kcl 40 Meq/Water 100 Ml IVPB 04/06/24 13:12 25 mls/hr ONCE ONE Administration Dextrose 1,000 mls @ 50 mls/hr 04/06/24 11:00 Dextrose 10% IV CONT .Q20H PRN if PN is interrupted Multivitamins 1.25 ml/ 1,002.5 mls @ 40 mls/hr 04/06/24 11:00 Multivitamins 1.25 ml/ Amino IV CONT Acids/Electrolytes/Dextrose .Q24H [facility] Protocol Insulin Aspart 2 - 5 units 04/06/24 08:00 04/06/24 10:58 Insulin Aspart (*Bkc) 100 Units/Ml SUB-Q Not Given TIDWM [facility] Protocol Insulin Human Regular 0 units 04/06/24 12:00 Insulin Human Regular (*Bkc) 100 Units/Ml SUB-Q Q6HR [facility] Protocol Levothyroxine Sodium 75 mcg 04/06/24 06:30 04/06/24 05:32 Levothyroxine Sodium 75 Mcg Tablet PO Not Given DAILY@0630 [facility] Magnesium Hydroxide 30 ml 04/05/24 20:58 Magnesium Hydroxide Susp 30 Ml Udc PO DAILY PRN Constipation Memantine 5 mg 04/05/24 21:15 04/06/24 10:58 Memantine 5 Mg Tablet PO Not Given BID [facility] Ondansetron HCl 4 mg 04/05/24 20:58 Ondansetron Inj 4 Mg/2 Ml Vial IV PUSH Q6H PRN Nausea And Vomiting Perflutren Lipid Microsphere 0 ml 04/06/24 09:14 Perflutren Lipid Microspheres 1.5 Ml Vial Diluted To 10 Ml Total Volume IV PUSH 04/09/24 09:14 ONCE PRN adequate visualization Protocol Senna/Docusate Sodium 1 tab 04/05/24 20:56 Senna/Docusate Sodium Tablet PO DAILY PRN constipation Radiology Results: ITS Impressions Brain MRI 04/06/24 10:25 IMPRESSION: 1. Moderate nonspecific cerebral white matter disease, which likely represents chronic small vessel ischemic disease, mildly worsened from 03/21/22. Labs Labs: Laboratory Results - last 24 hr 04/05/24 04/05/24 04/05/24 21:23 22:13 23:10 WBC RBC Hgb Hct MCV MCH MCHC RDW Plt Count MPV Immature Gran % (Auto) Neut % (Auto) Lymph % (Auto) [place] % (Auto) Eos % (Auto) Baso % (Auto) Lymph # (Auto) [place] # (Auto) Eos # (Auto) Baso # (Auto) Abs Immat Gran (auto) Absolute Neuts (auto) Absolute Nucleated RBC Nucleated RBC % PT 16.1 H INR 1.2 APTT 37.1 H Sodium 142 Potassium 3.5 Chloride 107 Carbon Dioxide 24 Anion Gap 11 BUN 15 D Creatinine 0.87 Estim Creat Clear Calc Not Reportable Estimated GFR > 60 Glucose 164 H POC Capillary Glucose 178 H Lactic Acid 1.1 Calcium 9.0 Phosphorus 2.8 Magnesium 2.2 Total Bilirubin AST ALT Alkaline Phosphatase Total Protein Albumin Nasal MRSA (PCR) Not detected 04/06/24 04/06/24 05:31 10:49 WBC 5.4 RBC 2.87 L Hgb 9.0 L Hct 27.9 L MCV 97.2 MCH 31.4 MCHC 32.3 RDW 14.5 Plt Count 257 MPV 9.6 Immature Gran % (Auto) 0.7 H Neut % (Auto) 65.7 Lymph % (Auto) 16.2 L [place] % (Auto) 8.7 H Eos % (Auto) 7.6 H Baso % (Auto) 1.1 Lymph # (Auto) 0.87 L [place] # (Auto) 0.5 Eos # (Auto) 0.4 H Baso # (Auto) 0.1 Abs Immat Gran (auto) 0.04 H Absolute Neuts (auto) 3.5 Absolute Nucleated RBC 0.000 Nucleated RBC % 0.0 PT INR APTT Sodium 140 139 Potassium 3.1 L 2.9 L Chloride 107 106 Carbon Dioxide 29 29 Anion Gap 4 4 BUN 14 13 Creatinine 0.83 0.82 Estim Creat Clear Calc Not Reportable Not Reportable Estimated GFR > 60 > 60 Glucose 223 H 223 H POC Capillary Glucose Lactic Acid Calcium 8.8 8.8 Phosphorus Magnesium 1.9 Total Bilirubin 0.5 0.5 AST 21 25 ALT 15 16 Alkaline Phosphatase 50 51 Total Protein 6.0 L 6.0 L Albumin 3.0 L 3.0 L Nasal MRSA (PCR) Quality VTE Prophylaxis VTE prophylaxis: mechanical ordered -Patient's previous records reviewed on admission -ER notes reviewed in detail on admission -discussed all findings and current treatment plan with patient/Family/POA -Consultations reviewed for recommendations -Patient's disposition for safe discharge discussed with case briefer Dictation performed by [employer] direct speech recognition software, therefore project accountant variants and typographical errors may occur. Hospitalist MIPS Advance Care Plan I have confirmed that the patient's Advanced Care Plan is present, code status is documented, or surrogate decision maker is listed in patient medical record.: Yes Medication Reconciliation I have utilized all available resources to obtain, update and review the patients current medications (includes all prescriptions, OTC, herbals, cannabis, and nutritional supplements).: Yes The patient is not eligible for med reconciliation; the patient is in a emergent medical situation where delaying treatment would jeopardize the patients health.: No
[2024-04-06 11:14] LABS: Transferrin 129 mg/dL (206-381)
--- NOTE | 2024-04-06 12:09 | WPDNEURCNPN ---
Assessment and Plan Assessment and plan (1) Metabolic encephalopathy: Code(s): G93.41 - Metabolic encephalopathy Status: Acute Plan The patient appears to have some evidence for pneumonia and I believe there was a recent urinary tract infection. If a cause for the encephalopathy is not identified 1 May have to consider spinal tap to look for encephalitis. An EEG and spinal tap could be considered for additional evaluation if necessary however since we have an possible etiology for sepsis I would suggest to treat him accordingly Consult date: 04/06/24 HPI: Mk Sanches is a 88 year old male with history of decline in the overall mental status over the last 10-12 days according to the daughter. Patient has had COVID infection for which he was hospitalized around early part of the year. Dr. Truong had seen him on 03/23/2024. He also has history of diabetes mellitus. The patient is a who woke up to stimulation and a talk to his daughter but he appears very drowsy he is not interested in conversation when just wants to go back to sleep. He does denies any headache. He has not had any nausea or vomiting. He carries diagnosis of dementia, diabetes mellitus, chronic kidney disease and depression. He was transferred from outside facility due to altered mental status possible stroke workup. CT scan of brain has shown lacunar infarct. No acute findings were noted. Chest x-ray has shown infiltrate since Brisa. His serum creatinine usually runs between 1.2-1 3. According to the notes it was suspected that he may be encephalopathic due to certain antibiotics and Remeron. He also history of hypo his serum sodium was also 120 T8. He was found to have urinary tract infection due to Enterococcus. Review of Systems Review of Systems: When briefly awake he denies any headache. He has not been noted to have any nausea vomiting. ROS unobtainable: Yes unobtainable due to mental status PMFSH Past Medical History Medical History (Updated 04/06/24 @ 12:17 by Yudy Perez MD) Metabolic encephalopathy Gangrenous cholecystitis Chronic kidney disease, stage 3 Baseline creatinine between 1.2 and 1.30. GFR is typically in the high 40s or lower 50s. Type 2 diabetes mellitus Hypothyroidism Depression Dementia Surgical History Surgical History Hx laparoscopic cholecystectomy 07/10/21 History of foot surgery Debridement of diabetic foot ulcer. History of bilateral cataract extraction Family History Family History Other Unknown family medical history Social History Social History Social History: Healthcare power of transactional attorney: Cassie Granados, daughter. Code status: Full code. Smoking status: Former smoker Smokeless tobacco user: chewing tobacco Additional smoking assessment comments: Quit chewing tobacco in December 2020. Alcohol intake: unknown Substance use: unknown Substance use type: does not use Do You Feel Safe in your Home?: Yes Lack of Transportation: No Lack of Food: Never True Current Housing: I Have Housing Concerned About Future Housing: No Difficulty Paying Gas/Electric Bills: No Difficulty Paying for Meds: No Currently Unemployed: No Education: High School Diploma/GED Difficulty w/ Childcare or Family Care: No Living arrangements: with family Additional living arrangements comments: Lives with his daughter Cassie in [place]. 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 Gender identity (if verbalized by the patient): Male Sexual Orientation (if Verbalized by the Patient): Straight or Heterosexual Spiritual care concerns: No Meds Home Medications and Allergies Home Medications ?Medication ?Instructions ?Recorded ?Confirmed ?Type glipizide 5 mg tablet 5 mg PO BID 10/04/19 04/05/24 History levothyroxine 75 mcg tablet 75 mcg PO DAILY 10/04/19 04/05/24 History memantine 5 mg tablet 5 mg PO BID 10/04/19 04/05/24 History aspirin 81 mg tablet,delayed 81 mg PO DAILY 11/01/19 04/05/24 History release (Adult Low Dose Aspirin) sennosides 8.6 mg-docusate sodium 1 tab-cap PO DAILY PRN constipation 03/27/24 04/05/24 History 50 mg tablet (Senna Plus) atorvastatin 40 mg tablet 40 mg PO DAILY #1 tablet 04/05/24 04/05/24 Rx clopidogrel 75 mg tablet 75 mg PO QAM #1 tablet 04/05/24 04/05/24 Rx piperacillin-tazobactam 2.25 gram 2.25 g IV Q6HR #3 ea 04/05/24 04/05/24 Rx intravenous solution Allergies Allergy/AdvReac Type Severity Reaction Status Date / Time peach Allergy Unknown Unknown Verified 04/01/24 17:16 ibuprofen Allergy Rash Verified 03/27/24 14:09 Sulfa (Sulfonamide Allergy Rash Verified 03/27/24 14:09 Antibiotics) Vital Signs Vital Signs - 24 hr 04/05/24 20:00 04/05/24 20:00 04/05/24 20:55 Temperature 97.9 F Pulse Rate 68 74 Respiratory Rate 16 Blood Pressure 135/69 Pulse Oximetry 94 Oxygen Delivery Room Air 04/06/24 00:00 04/06/24 04:00 04/06/24 06:00 Temperature 97.6 F Pulse Rate 62 69 63 Respiratory Rate 16 Blood Pressure 125/68 Pulse Oximetry 95 Oxygen Delivery Exam Narrative: Patient is drowsy but arousable briefly. He does not appear to aphasia or dysarthria but he appears to have cognitive impairment. Difficult to assess mental status reliably since he does not want to cooperate. When asked to name 5 colors he managed to give me 3. He did know his daughter. Extraocular movements intact. There is no facial asymmetry. Tongue was midline. Moving both upper and lower limbs. No involuntary movements are seen. Tone appears symmetric on both sides. Deep tendon reflexes did not show any asymmetry. Sensory exam is grossly intact. Results Labs 04/06/24 10:49 04/06/24 10:49 Labs: Short CBC 04/06/24 04/06/24 Range/Units 05:31 10:49 WBC 5.4 5.4 (4.5-10.0) K/mm3 Hgb 9.0 L 9.0 L (14.0-18.0) g/dL Hct 27.9 L 28.3 L (42.0-52.0) % Plt Count 257 293 (150-375) k/mm3 BMP 04/05/24 04/06/24 04/06/24 22:13 05:31 10:49 Sodium 142 140 139 Potassium 3.5 3.1 L 2.9 L Chloride 107 107 106 Carbon Dioxide 24 29 29 BUN 15 D 14 13 Creatinine 0.87 0.83 0.82 Glucose 164 H 223 H 223 H Calcium 9.0 8.8 8.8 Liver Function 04/06/24 04/06/24 Range/Units 05:31 10:49 Total Bilirubin 0.5 0.5 (0.2-1.3) mg/dL AST 21 25 (17-59) U/L ALT 15 16 (6-50) U/L Alkaline Phosphatase 50 51 (38-126) U/L Albumin 3.0 L 3.0 L (3.5-5.1) g/dL
[2024-04-06] MEDS: AMINO ACIDS 5%/D15W/E-LYTES/CA 1,000 ML with MULTIVITAMINS-12 INJ VIAL 1 1.25 ML, MULTI... 40 ML IV CONT (12:12)
[2024-04-06 12:17] LABS: Glucose Point of Care 189 mg/dl (65-105)
[2024-04-06] MEDS: FAT EMULSIONS IV 20% 250 ML 20.83 ML IVPB (12:21)
[2024-04-06] MEDS: PERFLUTREN LIPID MICROSPHERES 1.5 ML VIAL DILUTED TO 10 ML TOTAL VOLUME IV PUSH (15:00)
--- NOTE | 2024-04-06 15:17 | IVDEFINITY ---
Prior to administration of IV Definity the patient was educated on the risks and benefits of the imaging enhancing agent including potential adverse side effects. The patient verbalized understanding. Allergies were verified. No exclusion criteria were identified and at least one of the following inclusion criteria were met: 1) physician request, 2) patient technically difficult to image (per the [place] [employer] guidelines of two or more segments not discernable within the apical view), or 3) questionable left ventricular function. ?
--- NOTE | 2024-04-06 15:32 | PCSTNOTE ---
Please refer to the Bedside Swallow Evaluation in the EMR. Please note, silent aspiration cannot be ruled out at bedside.
[2024-04-06] MEDS: CENTRAL LINE FLUSH 10 ML IV PUSH (17:30)
[2024-04-06] MEDS: MEMANTINE 5 MG TABLET PO (17:34)
[2024-04-06 18:52] LABS: Glucose Point of Care 312 mg/dl (65-105)
[2024-04-06] MEDS: INSULIN HUMAN REGULAR (*BKC) 100 UNITS/ML SUB-Q (18:55)
[2024-04-07] VITALS (9 sets, daily range): BP systolic 137–150; BP diastolic 62–77; PULSE 64–89; RESP 16; TEMP 36.4–36.6; O2SAT 92–95
[2024-04-07] MEDS: INSULIN HUMAN REGULAR (*BKC) 100 UNITS/ML SUB-Q ×2 (00:11→06:07)
[2024-04-07 00:15] LABS: Glucose Point of Care 292 mg/dl (65-105)
[2024-04-07] MEDS: DEXTROSE 5%/0.45% SOD CHL 1,000 ML 100 ML IV CONT (04:07)
[2024-04-07 05:55] LABS: Hematocrit 28.3 % (42.0-52.0); Hemoglobin 8.9 g/dL (14.0-18.0); Mean Corpuscular HGB Conc 31.4 g/dl (32-36); Mean Corpuscular Hemoglobin 30.3 pg (26-34); Mean Corpuscular Volume 96.3 fl (80-100); Mean Platelet Volume 10.2 fl (7.4-10.4); Platelet Count Result 230 k/mm3 (150-375); Red Blood Count 2.94 M/mm3 (4.6-6.20); Red Cell Distribution Width 14.2 % (11.5-14.5); White Blood Count 7.3 K/mm3 (4.5-10.0)
[2024-04-07 06:06] LABS: Glucose Point of Care 320 mg/dl (65-105)
[2024-04-07] MEDS: LEVOTHYROXINE SODIUM 75 MCG TABLET PO (06:08)
[2024-04-07 06:11] LABS: Alanine Aminotransferase 14 U/L (6-50); Albumin Level 2.8 g/dL (3.5-5.1); Alkaline Phosphatase 48 U/L (38-126); Anion Gap 2 mmol/L (4-12); Aspartate Amino Transferase 20 U/L (17-59); Bilirubin,Total 0.5 mg/dL (0.2-1.3); Blood Urea Nitrogen 13 mg/dL (9-20); Calcium 8.3 mg/dL (8.4-10.2); Carbon Dioxide 29 mmol/L (22-30); Chloride 104 mmol/L (98-107); Estimated CRCL calculation 55 ml/min; Estimated Glomerular Filt Rate > 60; Glucose 298 mg/dL (65-110); Phosphorus 2.4 mg/dL (2.5-4.5); Sodium 135 mmol/L (137-145); Triglycerides 93 mg/dL (<150)
[2024-04-07] MEDS: CENTRAL LINE FLUSH 10 ML IV PUSH ×3 (06:20→21:38)
--- NOTE | 2024-04-07 07:09 | P.CDI_ITS ---
CDI Query Clarification Request BMI: 18.6 Nutritional Diagnostic Statement: Please refer to the comprehensive nutrition assessment for further information. If you agree with diagnosis of Severe Protein Calorie Malnutrition as related to inadequate energy intake as evidenced by significant weight loss of 13 ibs (9%) in 1 month/3 weeks; minimal oral intake for > 5 days; Severe muscle wasting (temporalis). Please specify severity if known: * Mild * Moderate * Severe * Other/Unknown <Michelle Nguyen RN - Last Filed: 04/07/24 07:10> Clarified Diagnosis Clarified Diagnosis: Severe Protein Calorie Malnutrition <Danica Lazo APRN - Last Filed: 04/07/24 08:10>
[2024-04-07] MEDS: CLOPIDOGREL BISULFATE 75 MG TABLET PO (08:32)
[2024-04-07] MEDS: ASPIRIN 81 MG ENTERIC TABLET PO (08:32)
[2024-04-07] MEDS: ATORVASTATIN 40 MG TABLET PO (08:32)
[2024-04-07] MEDS: MEMANTINE 5 MG TABLET PO ×2 (08:32→17:45)
[2024-04-07] MEDS: KCL 40 MEQ/WATER 100 ML 100 ML 25 ML IVPB (08:37)
--- NOTE | 2024-04-07 11:13 | PCNFU ---
Nutrition Follow-Up Complete: Severe Protein Calorie Malnutrition as related to inadequate energy intake as evidenced by significant weight loss of 13 ibs (9%) in 1 month/3 weeks; minimal oral intake for > 5 days; Severe muscle wasting (temporalis). goal: Meet estimate nutritional needs. Patient will continue current goal. Pt current nutrition is Minced and Moist Level 5/DBCC diet. Nutrition recommendation: Nutritional Ice Cream TID and Glucerna Shake TID Last recorded weight is 65.3 kg, up from 62.2 kg on admit. Bowel Motility: No reported BM. Labs Reviewed: Glu 298, K 3.0, Na 135, Hct 28.3, Hgb 8.9 Meds Noted:Lipitor, Synthroid, Plavix Skin: WNL Additional Notes: Patient has Speech Eval 04/06-recommend Minced and Moist, Level 5 consistencies. Spoke with hospitalist today, TPN has been discontinued. Diet orders advanced to a DBCC/Minced and Moist, Level 5 diet with Glucerna shakes and Nutritional Ice Cream TID. Agree with diet orders at this time. Will monitor weight, labs, skin, diet orders, meds every 3 days.
[2024-04-07 12:13] LABS: Glucose Point of Care 281 mg/dl (65-105)
--- NOTE | 2024-04-07 14:12 | P.PNIM_ITS ---
Progress Note: A&P Assessment and Plan (1) Acute encephalopathy: Code(s): G93.40 - Encephalopathy, unspecified Status: Acute Assessment and Plan: Patient with potential drug-induced encephalopathy secondary to Remeron or cefepime * patient had been switched to Zosyn have 3 more doses to complete therapy * neuro checks * currently NPO pending swallow evaluation * PICC line placed * will start TPN for nutrition * may need PEG tube placement if no improvement * Patient does have a history of Dementia * Possible EEG and spinal tap to evaluate for encephalitis per neurology 04/07/2024: * Neuro improving * transition to oral feeding per swallow evaluation of liquids and minced and moist but will be a feeder for now * Working with PT (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 * CT Head 03/27/2024 at [place] showed no acute intracranial process * CT Head 04/05/2024: with old lacunar infarct which likely a subacute occurred between 03/27-04/05 * Neurology consulted * currently on ASA * Started on Plavix and statin once able to have oral pills or peg tube placed * Echo with bubble study pending * NPO * swallow evaluation * MRI no acute findings Findings of old infarct on previous CT head this was likely Metabolic encephalopathy will stop plavix and just continue ASA (3) Physical deconditioning: Code(s): R53.81 - Other malaise Status: Acute Assessment and Plan: * Will need PT/OT re-evaluation and likely rehab when stable (4) Protein calorie malnutrition: Code(s): E46 - Unspecified protein-calorie malnutrition Status: Acute Assessment and Plan: * NPO * Swallow evaluation * TPN started * may need peg tube if no improvement * consulted dietitian * monitor and replenish electrolytes (5) Dementia: Code(s): F03.90 - Unspecified dementia, unspecified severity, without behavioral disturbance, psychotic disturbance, mood disturbance, and anxiety Status: Acute Assessment and Plan: * Holding Namenda NPO Plan Full code per patient DVT prophylaxis: SCD's Stress ulcer prophylaxis: NA PT/OT notes: PT/OT pending Disposition: patient continues admission to the medical unit for further evaluation and treatment of altered mental status with acute encephalopathy possible secondary to drug induced or new lacunar infarct. Infarct old likely metabolic encephalopathy patient improving overall is able to have oral intake and is responding name will answer some questions. Plan is to return to [facility] when medically stable. Time Spent With Patient Time with patient: 15 - 25 minutes Subjective Date/time seen: 04/07/24 14:12 Interval history: Patient is an 88-year-old male who was transferred from [facility] for further evaluation and treatment of altered mental status failure to thrive and likely new lacunar stroke. CT head 04/05/15 which showed an old lacunar infarct however his previous CT head on 03/27/2024 showed no intracranial process this is likely subacute with possible cause of altered mental status. spoke with patient's daughter due to concerns inability to have any nutrition at this time and is agreed patient will be transferred back to [facility] to initiate TPN vs PEG to pending evaluation by speech therapy and barium swallow if patient able to participate and consult to Neurology for further evaluation and recommendations. 04/07/24 Patient Alert today said hi getting back to his previous mental baseline. Daughter was assisting with feeding. Patient denied and pain at bedside. Review of Systems Review of Systems: All systems reviewed & are unremarkable except as noted in HPI and below ROS unobtainable: Yes unobtainable due to mental status (able to deny pain ) Exam Narrative: General: Alert and oriented x1 to 2 Eyes: PERRLA, sclera clear ENT:dry mucous membranes, nasal passages clear Neck: supple, no JVD, no adenopathy, trachea midline Cardiac: Normal S1 and S2. RRR, No murmur, gallops or friction rubs, peripheral pulses intact. Respiratory: Lungs clear to auscultation, no adventitious lung sounds, currently on room air Gastrointestinal: soft, non-distended, non-tender, normoactive bowel sounds. : voiding without difficulty. Neuro: Moving bilateral extremities, responding to name mental status progressing to baseline Objective Data Vital Signs Vital Signs: Vital Signs - 24 hr 04/06/24 16:00 04/06/24 20:00 04/06/24 20:00 Temperature Pulse Rate 56 L 82 Respiratory Rate Blood Pressure Pulse Oximetry Oxygen Delivery Room Air 04/06/24 20:39 04/07/24 00:00 04/07/24 04:00 Temperature 97.7 F Pulse Rate 72 73 64 Respiratory Rate 16 Blood Pressure 131/70 Pulse Oximetry 96 Oxygen Delivery 04/07/24 06:00 04/07/24 08:00 Temperature 97.8 F Pulse Rate 75 Respiratory Rate 16 Blood Pressure 147/64 H Pulse Oximetry 93 Oxygen Delivery Room Air Intake/Output Intake/Output: Intake & Output 04/04/24 04/05/24 04/06/24 04/07/24 23:59 23:59 23:59 23:59 Intake Total 1985 1370 Output Total 500 3750 Balance 6035 -8860 Meds/Results Medications: Active Medications Generic Name Dose Route Start Last Admin Trade Name Freq PRN Reason Stop Dose Admin Al Hydrox/Mg Hydrox/Simethicone 30 ml 04/05/24 20:58 Mag Hydrox/Al Hydrox/Simeth 30 Ml Udc PO QID PRN Dyspepsia Aspirin 81 mg 04/06/24 09:00 04/07/24 08:32 Aspirin 81 Mg Enteric Tablet PO 81 mg DAILY DANIELLE Administration Atorvastatin Calcium 40 mg 04/06/24 09:00 04/07/24 08:32 Atorvastatin 40 Mg Tablet PO 40 mg DAILY DAINELLE Administration Clopidogrel Bisulfate 75 mg 04/06/24 09:00 04/07/24 08:32 Clopidogrel Bisulfate 75 Mg Tablet PO 75 mg QAM DANIELLE Administration Dextrose 12.5 gm 04/05/24 20:34 Dextrose 50% 25 Gm/50 Ml Syringe IV PUSH PRN PRN Hypoglycemia Protocol Glucagon 1 mg 04/05/24 20:34 Glucagon For Inj 1 Mg Vial IM PRN PRN Hypoglycemia Protocol Glucose 15 gm 04/05/24 20:34 Glucose Oral Gel 15 Gm Of Glucse In 37.5 Gm Tube PO PRN PRN Hypoglycemia Protocol Dextrose 1,000 mls @ 100 mls/hr 04/05/24 20:34 Dextrose 5% 1,000 Ml IVPB PRN PRN Hypoglycemia Protocol Insulin Aspart 2 - 5 units 04/07/24 17:00 Insulin Aspart (*Bkc) 100 Units/Ml SUB-Q TIDWM [facility] Protocol Levothyroxine Sodium 75 mcg 04/06/24 06:30 04/07/24 06:08 Levothyroxine Sodium 75 Mcg Tablet PO 75 mcg DAILY@0630 [facility] Administration Magnesium Hydroxide 30 ml 04/05/24 20:58 Magnesium Hydroxide Susp 30 Ml Udc PO DAILY PRN Constipation Memantine 5 mg 04/05/24 21:15 04/07/24 08:32 Memantine 5 Mg Tablet PO 5 mg BID DANIELLE Administration Nystatin 5 ml 04/07/24 13:00 Nystatin 100,000 Units/Ml Susp 5 Ml Oral.Susp PO QID [facility] Ondansetron HCl 4 mg 04/05/24 20:58 Ondansetron Inj 4 Mg/2 Ml Vial IV PUSH Q6H PRN Nausea And Vomiting Senna/Docusate Sodium 1 tab 04/05/24 20:56 Senna/Docusate Sodium Tablet PO DAILY PRN constipation Sodium Chloride 20 ml 04/06/24 13:19 Central Line Flush IV PUSH PRN PRN after blood draws Sodium Chloride 10 ml 04/06/24 13:19 Central Line Flush IV PUSH PRN PRN with TPN bag changes Sodium Chloride 10 ml 04/06/24 14:00 04/07/24 06:20 Central Line Flush IV PUSH 10 ml Q8HR DANIELLE Administration Radiology Results: ITS Impressions Brain MRI 04/06/24 10:25 IMPRESSION: 1. Moderate nonspecific cerebral white matter disease, which likely represents chronic small vessel ischemic disease, mildly worsened from 03/21/22. Labs Labs: Laboratory Results - last 24 hr 04/06/24 04/07/24 04/07/24 18:50 00:08 05:43 WBC 7.3 RBC 2.94 L Hgb 8.9 L Hct 28.3 L MCV 96.3 MCH 30.3 MCHC 31.4 L RDW 14.2 Plt Count 230 MPV 10.2 Sodium 135 L Potassium 3.0 L Chloride 104 Carbon Dioxide 29 Anion Gap 2 L BUN 13 Creatinine 0.74 Estim Creat Clear Calc 55 Estimated GFR > 60 Glucose 298 H POC Capillary Glucose 312 H 292 H Calcium 8.3 L Phosphorus 2.4 L Total Bilirubin 0.5 AST 20 ALT 14 Alkaline Phosphatase 48 Total Protein 6.0 L Albumin 2.8 L Triglycerides 93 04/07/24 04/07/24 06:03 12:01 WBC RBC Hgb Hct MCV MCH MCHC RDW Plt Count MPV Sodium Potassium Chloride Carbon Dioxide Anion Gap BUN Creatinine Estim Creat Clear Calc Estimated GFR Glucose POC Capillary Glucose 320 H 281 H Calcium Phosphorus Total Bilirubin AST ALT Alkaline Phosphatase Total Protein Albumin Triglycerides Quality VTE Prophylaxis VTE prophylaxis: mechanical ordered -Patient's previous records reviewed on admission -ER notes reviewed in detail on admission -discussed all findings and current treatment plan with patient/Family/POA -Consultations reviewed for recommendations -Patient's disposition for safe discharge discussed with community case manager Dictation performed by [employer] direct speech recognition software, therefore computing systems mechanic variants and typographical errors may occur. Hospitalist MIPS Advance Care Plan I have confirmed that the patient's Advanced Care Plan is present, code status is documented, or surrogate decision maker is listed in patient medical record.: Yes Medication Reconciliation I have utilized all available resources to obtain, update and review the patients current medications (includes all prescriptions, OTC, herbals, cannabis, and nutritional supplements).: Yes The patient is not eligible for med reconciliation; the patient is in a emergent medical situation where delaying treatment would jeopardize the patients health.: No
[2024-04-07] MEDS: NYSTATIN 100,000 UNITS/ML SUSP 5 ML ORAL.SUSP PO ×3 (14:22→21:38)
[2024-04-07 18:16] LABS: Glucose Point of Care 221 mg/dl (65-105)
[2024-04-07] MEDS: INSULIN ASPART (*BKC) 100 UNITS/ML SUB-Q (18:49)
[2024-04-08] VITALS (10 sets, daily range): BP systolic 125–147; BP diastolic 50–76; PULSE 74–87; RESP 14–16; TEMP 36.4–36.6; O2SAT 96–98
[2024-04-08 05:50] LABS: Hematocrit 29.8 % (42.0-52.0); Hemoglobin 9.7 g/dL (14.0-18.0); Mean Corpuscular HGB Conc 32.6 g/dl (32-36); Mean Corpuscular Hemoglobin 31.4 pg (26-34); Mean Corpuscular Volume 96.4 fl (80-100); Mean Platelet Volume 10.5 fl (7.4-10.4); Platelet Count Result 221 k/mm3 (150-375); Red Blood Count 3.09 M/mm3 (4.6-6.20); Red Cell Distribution Width 14.5 % (11.5-14.5); White Blood Count 6.9 K/mm3 (4.5-10.0)
[2024-04-08 05:59] LABS: Alanine Aminotransferase 18 U/L (6-50); Albumin Level 2.5 g/dL (3.5-5.1); Alkaline Phosphatase 49 U/L (38-126); Anion Gap 0 mmol/L (4-12); Aspartate Amino Transferase 24 U/L (17-59); Bilirubin,Total 0.4 mg/dL (0.2-1.3); Blood Urea Nitrogen 15 mg/dL (9-20); Calcium 8.3 mg/dL (8.4-10.2); Carbon Dioxide 32 mmol/L (22-30); Chloride 101 mmol/L (98-107); Estimated CRCL calculation 55 ml/min; Estimated Glomerular Filt Rate > 60; Glucose 172 mg/dL (65-110); Potassium 3.4 mmol/L (3.4-5.0); Sodium 133 mmol/L (137-145)
[2024-04-08] MEDS: LEVOTHYROXINE SODIUM 75 MCG TABLET PO (06:08)
[2024-04-08] MEDS: CENTRAL LINE FLUSH 10 ML IV PUSH ×3 (06:10→21:20)
[2024-04-08] MEDS: CENTRAL LINE FLUSH 20 ML IV PUSH (06:10)
[2024-04-08 08:23] LABS: Glucose Point of Care 169 mg/dl (65-105)
[2024-04-08] MEDS: MEMANTINE 5 MG TABLET PO ×2 (08:55→17:39)
[2024-04-08] MEDS: NYSTATIN 100,000 UNITS/ML SUSP 5 ML ORAL.SUSP PO ×4 (08:55→21:18)
[2024-04-08] MEDS: ASPIRIN 81 MG ENTERIC TABLET PO (08:55)
[2024-04-08] MEDS: ATORVASTATIN 40 MG TABLET PO (08:55)
--- NOTE | 2024-04-08 09:05 | P.PNIM_ITS ---
Progress Note: A&P Assessment and Plan (1) Acute encephalopathy: Code(s): G93.40 - Encephalopathy, unspecified Status: Acute Assessment and Plan: Patient with potential drug-induced encephalopathy secondary to Remeron or cefepime * patient had been switched to Zosyn have 3 more doses to complete therapy * neuro checks * currently NPO pending swallow evaluation * PICC line placed * will start TPN for nutrition * may need PEG tube placement if no improvement * Patient does have a history of Dementia * Possible EEG and spinal tap to evaluate for encephalitis per neurology 04/07/2024: * Neuro improving * transition to oral feeding per swallow evaluation of liquids and minced and moist but will be a feeder for now * Working with PT 04/08 * Alert and oriented x1, sleepy today * Tolerating oral feeds * Continue PT and OT * Case coordination following for rehab needs (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 * CT Head 03/27/2024 at [place] showed no acute intracranial process * CT Head 04/05/2024: with old lacunar infarct which likely a subacute occurred between 03/27-04/05 * Neurology consulted * currently on ASA * Started on Plavix and statin once able to have oral pills or peg tube placed * Echo with bubble study pending * NPO * swallow evaluation * MRI no acute findings Findings of old infarct on previous CT head this was likely Metabolic encephalopathy will stop plavix and just continue ASA 04/08: * No changes (3) Physical deconditioning: Code(s): R53.81 - Other malaise Status: Acute Assessment and Plan: * Will need PT/OT re-evaluation and likely rehab when stable 04/08 * Continue PT and OT (4) Protein calorie malnutrition: Code(s): E46 - Unspecified protein-calorie malnutrition Status: Acute Assessment and Plan: * NPO * Swallow evaluation * TPN started * may need peg tube if no improvement * consulted dietitian * monitor and replenish electrolytes 04/08 * enocurage po intake (5) Dementia: Code(s): F03.90 - Unspecified dementia, unspecified severity, without behavioral disturbance, psychotic disturbance, mood disturbance, and anxiety Status: Acute Assessment and Plan: * Holding Namenda NPO 04/08 * Continue Namenda Plan Time Spent With Patient Time with patient: Greater than 35 minutes Subjective Date/time seen: 04/08/24 09:05 Interval history: Interval history: This is an 88 year old male who presented from [facility] to [facility] on 04/05/24 for further evaluation of his him acute encephalopathy.Patient was thought to have acute encephalopathy from Cefepime and use of Remeron which were both held. New CT head shown on old lacunar infarct however his last scan did not show any acute abnormalities. Neurology was consulted. Subjective: Patient alert to voice and able to answer questions today. He states that he is sleepy today. Labs and imaging reviewed. Review of Systems Review of Systems: All systems reviewed & are unremarkable except as noted in HPI and below ROS unobtainable: Yes unobtainable due to medical condition and unobtainable due to mental status (able to deny pain ) Exam Narrative: General: In no acute distress, well nourished Head: atraumatic, no encephalopathy Eyes: EOMI, PERRLA, sclera clear ENT: moist mucous membranes, nasal passages clear Neck: supple, no JVD, no adenopathy, trachea midline Cardiac: Normal S1 and S2. No murmur, gallops or friction rubs, peripheral pulses intact. Respiratory: Lungs clear to auscultation, no adventitious lung sounds, currently on room air Gastrointestinal: soft, non-distended, non-tender, normoactive bowel sounds. : voiding without difficulty. Extremities: moves all extremities, no edema Skin: clean, dry, intact. No wounds or lesions. Neuro: Alert to voice and oriented x1, cranial nerves intact, no neuro deficits. Psych: normal mood, normal affect, interactive Objective Data Vital Signs Vital Signs: Vital Signs - 24 hr 04/07/24 12:00 04/07/24 14:00 04/07/24 14:53 Temperature 97.6 F Pulse Rate 76 79 Respiratory Rate 16 Blood Pressure 150/62 H Pulse Oximetry 95 Oxygen Delivery Room Air 04/07/24 16:00 04/07/24 20:00 04/07/24 20:00 Temperature Pulse Rate 83 88 Respiratory Rate Blood Pressure Pulse Oximetry Oxygen Delivery Room Air 04/07/24 21:37 04/08/24 00:00 04/08/24 04:00 Temperature 97.9 F Pulse Rate 89 84 80 Respiratory Rate 16 Blood Pressure 137/77 Pulse Oximetry 92 Oxygen Delivery 04/08/24 06:00 Temperature 98 F Pulse Rate 75 Respiratory Rate 14 Blood Pressure 147/65 H Pulse Oximetry 98 Oxygen Delivery Intake/Output Intake/Output: Intake & Output 04/05/24 04/06/24 04/07/24 04/08/24 23:59 23:59 23:59 23:59 Intake Total 19840 Output Total 500 3750 500 Balance 1484 Meds/Results Medications: Active Medications Generic Name Dose Route Start Last Admin Trade Name Freq PRN Reason Stop Dose Admin Al Hydrox/Mg Hydrox/Simethicone 30 ml 04/05/24 20:58 Mag Hydrox/Al Hydrox/Simeth 30 Ml Udc PO QID PRN Dyspepsia Aspirin 81 mg 04/06/24 09:00 04/08/24 08:55 Aspirin 81 Mg Enteric Tablet PO 81 mg DAILY DANIELLE Administration Atorvastatin Calcium 40 mg 04/06/24 09:00 04/08/24 08:55 Atorvastatin 40 Mg Tablet PO 40 mg DAILY DANIELLE Administration Dextrose 12.5 gm 04/05/24 20:34 Dextrose 50% 25 Gm/50 Ml Syringe IV PUSH PRN PRN Hypoglycemia Protocol Glucagon 1 mg 04/05/24 20:34 Glucagon For Inj 1 Mg Vial IM PRN PRN Hypoglycemia Protocol Glucose 15 gm 04/05/24 20:34 Glucose Oral Gel 15 Gm Of Glucse In 37.5 Gm Tube PO PRN PRN Hypoglycemia Protocol Dextrose 1,000 mls @ 100 mls/hr 04/05/24 20:34 Dextrose 5% 1,000 Ml IVPB PRN PRN Hypoglycemia Protocol Insulin Aspart 2 - 5 units 04/07/24 17:00 04/08/24 08:54 Insulin Aspart (*Bkc) 100 Units/Ml SUB-Q Not Given TIDWM [facility] Protocol Levothyroxine Sodium 75 mcg 04/06/24 06:30 04/08/24 06:08 Levothyroxine Sodium 75 Mcg Tablet PO 75 mcg DAILY@0630 DANIELLE Administration Magnesium Hydroxide 30 ml 04/05/24 20:58 Magnesium Hydroxide Susp 30 Ml Udc PO DAILY PRN Constipation Memantine 5 mg 04/05/24 21:15 04/08/24 08:55 Memantine 5 Mg Tablet PO 5 mg BID DANIELLE Administration Nystatin 5 ml 04/07/24 13:00 04/08/24 08:55 Nystatin 100,000 Units/Ml Susp 5 Ml Oral.Susp PO 5 ml QID DANIELLE Administration Ondansetron HCl 4 mg 04/05/24 20:58 Ondansetron Inj 4 Mg/2 Ml Vial IV PUSH Q6H PRN Nausea And Vomiting Senna/Docusate Sodium 1 tab 04/05/24 20:56 Senna/Docusate Sodium Tablet PO DAILY PRN constipation Sodium Chloride 20 ml 04/06/24 13:19 04/08/24 06:10 Central Line Flush IV PUSH 20 ml PRN PRN Administration after blood draws Sodium Chloride 10 ml 04/06/24 13:19 Central Line Flush IV PUSH PRN PRN with TPN bag changes Sodium Chloride 10 ml 04/06/24 14:00 04/08/24 06:10 Central Line Flush IV PUSH 10 ml Q8HR DANIELLE Administration Radiology Results: ITS Impressions Brain MRI 04/06/24 10:25 IMPRESSION: 1. Moderate nonspecific cerebral white matter disease, which likely represents chronic small vessel ischemic disease, mildly worsened from 03/21/22. Labs Labs: Laboratory Results - last 24 hr 04/07/24 04/07/24 04/08/24 12:01 18:11 05:44 WBC 6.9 RBC 3.09 L Hgb 9.7 L Hct 29.8 L MCV 96.4 MCH 31.4 MCHC 32.6 RDW 14.5 Plt Count 221 MPV 10.5 H Sodium 133 L Potassium 3.4 Chloride 101 Carbon Dioxide 32 H Anion Gap 0 L BUN 15 Creatinine 0.77 Estim Creat Clear Calc 55 Estimated GFR > 60 Glucose 172 H POC Capillary Glucose 281 H 221 H Calcium 8.3 L Total Bilirubin 0.4 AST 24 ALT 18 Alkaline Phosphatase 49 Total Protein 6.0 L Albumin 2.5 L 04/08/24 08:21 WBC RBC Hgb Hct MCV MCH MCHC RDW Plt Count MPV Sodium Potassium Chloride Carbon Dioxide Anion Gap BUN Creatinine Estim Creat Clear Calc Estimated GFR Glucose POC Capillary Glucose 169 H Calcium Total Bilirubin AST ALT Alkaline Phosphatase Total Protein Albumin Quality VTE Prophylaxis VTE prophylaxis: mechanical ordered
[2024-04-08 11:52] LABS: Glucose Point of Care 208 mg/dl (65-105)
[2024-04-08 11:58] LABS: Glucose Point of Care 179 mg/dl (65-105)
[2024-04-08 17:20] LABS: Glucose Point of Care 199 mg/dl (65-105)
[2024-04-08 23:52] LABS: Glucose Point of Care 230 mg/dl (65-105)
[2024-04-09] VITALS (9 sets, daily range): BP systolic 133–153; BP diastolic 45–69; PULSE 79–97; RESP 16–18; TEMP 36.4–36.6; O2SAT 96–100
[2024-04-09 04:54] LABS: Hematocrit 29.2 % (42.0-52.0); Hemoglobin 9.7 g/dL (14.0-18.0); Mean Corpuscular HGB Conc 33.2 g/dl (32-36); Mean Corpuscular Hemoglobin 31.4 pg (26-34); Mean Corpuscular Volume 94.5 fl (80-100); Mean Platelet Volume 10.8 fl (7.4-10.4); Platelet Count Result 237 k/mm3 (150-375); Red Blood Count 3.09 M/mm3 (4.6-6.20); Red Cell Distribution Width 14.1 % (11.5-14.5); White Blood Count 7.6 K/mm3 (4.5-10.0)
[2024-04-09 05:07] LABS: Alanine Aminotransferase 17 U/L (6-50); Albumin Level 2.5 g/dL (3.5-5.1); Alkaline Phosphatase 61 U/L (38-126); Anion Gap 3 mmol/L (4-12); Aspartate Amino Transferase 21 U/L (17-59); Bilirubin,Total 0.4 mg/dL (0.2-1.3); Blood Urea Nitrogen 15 mg/dL (9-20); Calcium 8.1 mg/dL (8.4-10.2); Carbon Dioxide 31 mmol/L (22-30); Chloride 98 mmol/L (98-107); Estimated CRCL calculation 53 ml/min; Estimated Glomerular Filt Rate > 60; Glucose 194 mg/dL (65-110); Potassium 3.7 mmol/L (3.4-5.0); Sodium 132 mmol/L (137-145)
[2024-04-09] MEDS: LEVOTHYROXINE SODIUM 75 MCG TABLET PO (06:24)
[2024-04-09] MEDS: CENTRAL LINE FLUSH 10 ML IV PUSH ×3 (06:25→21:12)
[2024-04-09 08:02] LABS: Glucose Point of Care 189 mg/dl (65-105)
[2024-04-09] MEDS: ATORVASTATIN 40 MG TABLET PO (09:47)
[2024-04-09] MEDS: NYSTATIN 100,000 UNITS/ML SUSP 5 ML ORAL.SUSP PO ×4 (09:47→21:09)
[2024-04-09] MEDS: MEMANTINE 5 MG TABLET PO ×2 (09:47→17:55)
[2024-04-09] MEDS: ASPIRIN 81 MG ENTERIC TABLET PO (09:47)
--- NOTE | 2024-04-09 10:57 | P.PNIM_ITS ---
Progress Note: A&P Assessment and Plan (1) Acute encephalopathy: Code(s): G93.40 - Encephalopathy, unspecified Status: Acute Assessment and Plan: Patient with potential drug-induced encephalopathy secondary to Remeron or cefepime * patient had been switched to Zosyn have 3 more doses to complete therapy * neuro checks * currently NPO pending swallow evaluation * PICC line placed * will start TPN for nutrition * may need PEG tube placement if no improvement * Patient does have a history of Dementia * Possible EEG and spinal tap to evaluate for encephalitis per neurology 04/07/2024: * Neuro improving * transition to oral feeding per swallow evaluation of liquids and minced and moist but will be a feeder for now * Working with PT 04/08 * Alert and oriented x1, sleepy today * Tolerating oral feeds * Continue PT and OT * Case coordination following for rehab needs 04/09 * no change, back to baseline (2) 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 * CT Head 03/27/2024 at [place] showed no acute intracranial process * CT Head 04/05/2024: with old lacunar infarct which likely a subacute occurred between 03/27-04/05 * Neurology consulted * currently on ASA * Started on Plavix and statin once able to have oral pills or peg tube placed * Echo with bubble study pending * NPO * swallow evaluation * MRI no acute findings Findings of old infarct on previous CT head this was likely Metabolic encephalopathy will stop plavix and just continue ASA 04/08: * No changes (3) Physical deconditioning: Code(s): R53.81 - Other malaise Status: Acute Assessment and Plan: * Will need PT/OT re-evaluation and likely rehab when stable 04/08 * Continue PT and OT 04/09 * continue PT and OT * Case management notified of patient's baseline level of functioning * Plan is for patient to go back home with family (4) Protein calorie malnutrition: Code(s): E46 - Unspecified protein-calorie malnutrition Status: Acute Assessment and Plan: * NPO * Swallow evaluation * TPN started * may need peg tube if no improvement * consulted dietitian * monitor and replenish electrolytes 04/08 * enocurage po intake 04/09 * No change (5) Dementia: Code(s): F03.90 - Unspecified dementia, unspecified severity, without behavioral disturbance, psychotic disturbance, mood disturbance, and anxiety Status: Acute Assessment and Plan: * Holding Donaldo CANTU 04/08 * Continue Donaldo Plan Time Spent With Patient Time with patient: 25 - 35 minutes Subjective Date/time seen: 04/09/24 10:57 Interval history: Interval history: This is an 88 year old male who presented from [facility] bed [facility] to [facility] on 04/05/24 for further evaluation of his him acute encephalopathy.Patient was thought to have acute encephalopathy from Cefepime and use of Remeron which were both held. New CT head shown on old lacunar infa rct however his last scan did not show any acute abnormalities. Neurology was consulted. Subjective: Patient denies any new complaints. Family at bedside. Daughter states that patient is able to stand with marlee stedy and pivot before he became ill. Now he is a max assist. Labs reviewed. Review of Systems Review of Systems: ROS unobtainable: Yes unobtainable due to medical condition and unobtainable due to mental status (able to deny pain ) Exam Narrative: General: In no acute distress, well nourished Cardiac: Normal S1 and S2. No murmur, gallops or friction rubs, peripheral pulses intact. Respiratory: Lungs clear to auscultation, no adventitious lung sounds, currently on room air Gastrointestinal: soft, non-distended, non-tender, normoactive bowel sounds. : voiding without difficulty. Extremities: moves all extremities, no edema, right elbow in brace Neuro: Alert to voice and oriented x1 Objective Data Vital Signs Vital Signs: Vital Signs - 24 hr 04/08/24 12:00 04/08/24 15:25 04/08/24 16:00 Temperature 97.5 F L Pulse Rate 85 80 87 Respiratory Rate 16 Blood Pressure 125/76 Pulse Oximetry 96 Oxygen Delivery 04/08/24 20:00 04/08/24 20:00 04/08/24 21:19 Temperature 98 F Pulse Rate 82 85 Respiratory Rate 16 Blood Pressure 131/50 L Pulse Oximetry 98 Oxygen Delivery Room Air 04/09/24 00:00 04/09/24 04:00 04/09/24 04:23 Temperature 97.9 F Pulse Rate 83 82 82 Respiratory Rate 18 Blood Pressure 135/68 Pulse Oximetry 96 Oxygen Delivery Intake/Output Intake/Output: Intake & Output 04/06/24 04/07/24 04/08/24 04/09/24 23:59 23:59 23:59 23:59 Intake Total 1985 1730 1140 930 Output Total 500 3750 1200 850 Balance 1485 -2020 -60 80 Meds/Results Medications: Active Medications Generic Name Dose Route Start Last Admin Trade Name Freq PRN Reason Stop Dose Admin Al Hydrox/Mg Hydrox/Simethicone 30 ml 04/05/24 20:58 Mag Hydrox/Al Hydrox/Simeth 30 Ml Udc PO QID PRN Dyspepsia Aspirin 81 mg 04/06/24 09:00 04/09/24 09:47 Aspirin 81 Mg Enteric Tablet PO 81 mg DAILY DANIELLE Administration Atorvastatin Calcium 40 mg 04/06/24 09:00 04/09/24 09:47 Atorvastatin 40 Mg Tablet PO 40 mg DAILY DANIELLE Administration Dextrose 12.5 gm 04/05/24 20:34 Dextrose 50% 25 Gm/50 Ml Syringe IV PUSH PRN PRN Hypoglycemia Protocol Glucagon 1 mg 04/05/24 20:34 Glucagon For Inj 1 Mg Vial IM PRN PRN Hypoglycemia Protocol Glucose 15 gm 04/05/24 20:34 Glucose Oral Gel 15 Gm Of Glucse In 37.5 Gm Tube PO PRN PRN Hypoglycemia Protocol Dextrose 1,000 mls @ 100 mls/hr 04/05/24 20:34 Dextrose 5% 1,000 Ml IVPB PRN PRN Hypoglycemia Protocol Insulin Aspart 2 - 5 units 04/07/24 17:00 04/09/24 08:05 Insulin Aspart (*Bkc) 100 Units/Ml SUB-Q Not Given TIDWM [facility] Protocol Levothyroxine Sodium 75 mcg 04/06/24 06:30 04/09/24 06:24 Levothyroxine Sodium 75 Mcg Tablet PO 75 mcg DAILY@0630 DANIELLE Administration Magnesium Hydroxide 30 ml 04/05/24 20:58 Magnesium Hydroxide Susp 30 Ml Udc PO DAILY PRN Constipation Memantine 5 mg 04/05/24 21:15 04/09/24 09:47 Memantine 5 Mg Tablet PO 5 mg BID DANIELLE Administration Nystatin 5 ml 04/07/24 13:00 04/09/24 09:47 Nystatin 100,000 Units/Ml Susp 5 Ml Oral.Susp PO 5 ml QID DANIELLE Administration Ondansetron HCl 4 mg 04/05/24 20:58 Ondansetron Inj 4 Mg/2 Ml Vial IV PUSH Q6H PRN Nausea And Vomiting Senna/Docusate Sodium 1 tab 04/05/24 20:56 Senna/Docusate Sodium Tablet PO DAILY PRN constipation Sodium Chloride 20 ml 04/06/24 13:19 04/08/24 06:10 Central Line Flush IV PUSH 20 ml PRN PRN Administration after blood draws Sodium Chloride 10 ml 04/06/24 13:19 Central Line Flush IV PUSH PRN PRN with TPN bag changes Sodium Chloride 10 ml 04/06/24 14:00 04/09/24 06:25 Central Line Flush IV PUSH 10 ml Q8HR DANIELLE Administration Radiology Results: ITS Impressions Brain MRI 04/06/24 10:25 IMPRESSION: 1. Moderate nonspecific cerebral white matter disease, which likely represents chronic small vessel ischemic disease, mildly worsened from 03/21/22. Labs Labs: Laboratory Results - last 24 hr 04/07/24 04/08/24 04/08/24 21:52 11:56 17:17 WBC RBC Hgb Hct MCV MCH MCHC RDW Plt Count MPV Sodium Potassium Chloride Carbon Dioxide Anion Gap BUN Creatinine Estim Creat Clear Calc Estimated GFR Glucose POC Capillary Glucose 208 H 179 H 199 H Calcium Total Bilirubin AST ALT Alkaline Phosphatase Total Protein Albumin 04/08/24 04/09/24 04/09/24 21:23 04:25 07:59 WBC 7.6 RBC 3.09 L Hgb 9.7 L Hct 29.2 L MCV 94.5 MCH 31.4 MCHC 33.2 RDW 14.1 Plt Count 237 MPV 10.8 H Sodium 132 L Potassium 3.7 Chloride 98 Carbon Dioxide 31 H Anion Gap 3 L BUN 15 Creatinine 0.80 Estim Creat Clear Calc 53 Estimated GFR > 60 Glucose 194 H POC Capillary Glucose 230 H 189 H Calcium 8.1 L Total Bilirubin 0.4 AST 21 ALT 17 Alkaline Phosphatase 61 Total Protein 6.0 L Albumin 2.5 L Quality VTE Prophylaxis VTE prophylaxis: mechanical ordered
[2024-04-09 12:06] LABS: Glucose Point of Care 226 mg/dl (65-105)
[2024-04-09] MEDS: INSULIN ASPART (*BKC) 100 UNITS/ML SUB-Q ×2 (13:16→17:57)
[2024-04-09 16:47] LABS: Glucose Point of Care 205 mg/dl (65-105)
[2024-04-10] VITALS (10 sets, daily range): BP systolic 110–162; BP diastolic 53–88; PULSE 69–100; RESP 16–20; TEMP 36.1–37; O2SAT 96–100
[2024-04-10] MEDS: CENTRAL LINE FLUSH 10 ML IV PUSH ×3 (05:30→20:11)
[2024-04-10] MEDS: LEVOTHYROXINE SODIUM 75 MCG TABLET PO (05:30)
[2024-04-10 05:49] LABS: Hematocrit 30.3 % (42.0-52.0); Mean Corpuscular Hemoglobin 31.2 pg (26-34); Mean Corpuscular Volume 94.4 fl (80-100); Platelet Count Result 255 k/mm3 (150-375); Red Blood Count 3.21 M/mm3 (4.6-6.20); Red Cell Distribution Width 13.8 % (11.5-14.5); White Blood Count 10.7 K/mm3 (4.5-10.0)
[2024-04-10 06:05] LABS: Alanine Aminotransferase 17 U/L (6-50); Albumin Level 2.8 g/dL (3.5-5.1); Alkaline Phosphatase 74 U/L (38-126); Anion Gap 4 mmol/L (4-12); Aspartate Amino Transferase 20 U/L (17-59); Bilirubin,Total 0.4 mg/dL (0.2-1.3); Blood Urea Nitrogen 16 mg/dL (9-20); Calcium 8.3 mg/dL (8.4-10.2); Carbon Dioxide 32 mmol/L (22-30); Chloride 96 mmol/L (98-107); Estimated CRCL calculation 58 ml/min; Estimated Glomerular Filt Rate > 60; Glucose 192 mg/dL (65-110); Magnesium 1.3 mg/dL (1.6-2.3); Potassium 3.7 mmol/L (3.4-5.0); Sodium 132 mmol/L (137-145)
[2024-04-10 08:05] LABS: Glucose Point of Care 176 mg/dl (65-105)
[2024-04-10] MEDS: NYSTATIN 100,000 UNITS/ML SUSP 5 ML ORAL.SUSP PO ×4 (09:19→20:03)
[2024-04-10] MEDS: MEMANTINE 5 MG TABLET PO ×2 (09:19→17:44)
[2024-04-10] MEDS: ATORVASTATIN 40 MG TABLET PO (09:19)
[2024-04-10] MEDS: ASPIRIN 81 MG ENTERIC TABLET PO (09:20)
[2024-04-10 09:22] LABS: Glucose Point of Care 201 mg/dl (65-105)
[2024-04-10] MEDS: INSULIN ASPART (*BKC) 100 UNITS/ML SUB-Q ×2 (09:25→13:09)
--- NOTE | 2024-04-10 11:22 | P.PNIM_ITS ---
Progress Note: A&P Assessment and Plan (1) Acute encephalopathy: Code(s): G93.40 - Encephalopathy, unspecified Status: Acute Assessment and Plan: Patient with potential drug-induced encephalopathy secondary to Remeron or cefepime * patient had been switched to Zosyn have 3 more doses to complete therapy * neuro checks * currently NPO pending swallow evaluation * PICC line placed * will start TPN for nutrition * may need PEG tube placement if no improvement * Patient does have a history of Dementia * Possible EEG and spinal tap to evaluate for encephalitis per neurology 04/07/2024: * Neuro improving * transition to oral feeding per swallow evaluation of liquids and minced and moist but will be a feeder for now * Working with PT 04/08 * Alert and oriented x1, sleepy today * Tolerating oral feeds * Continue PT and OT * Case coordination following for rehab needs 04/09 * no change, back to baseline (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 * CT Head 03/27/2024 at [place] showed no acute intracranial process * CT Head 04/05/2024: with old lacunar infarct which likely a subacute occurred between 03/27-04/05 * Neurology consulted * currently on ASA * Started on Plavix and statin once able to have oral pills or peg tube placed * Echo with bubble study pending * NPO * swallow evaluation * MRI no acute findings Findings of old infarct on previous CT head this was likely Metabolic encephalopathy will stop plavix and just continue ASA 04/08: * No changes (3) Physical deconditioning: Code(s): R53.81 - Other malaise Status: Acute Assessment and Plan: * Will need PT/OT re-evaluation and likely rehab when stable 04/08 * Continue PT and OT 04/09 * continue PT and OT * Case management notified of patient's baseline level of functioning * Plan is for patient to go back home with family (4) Protein calorie malnutrition: Code(s): E46 - Unspecified protein-calorie malnutrition Status: Acute Assessment and Plan: * NPO * Swallow evaluation * TPN started * may need peg tube if no improvement * consulted dietitian * monitor and replenish electrolytes 04/08 * enocurage po intake 04/09 * No change (5) Dementia: Code(s): F03.90 - Unspecified dementia, unspecified severity, without behavioral disturbance, psychotic disturbance, mood disturbance, and anxiety Status: Acute Assessment and Plan: * Holding Donaldo CANTU 04/08 * Continue Namejojo Plan Code Status: Full code per Family DVT prophylaxis: SCD's Stress ulcer prophylaxis: NA PT/OT notes: PT/OT Swing?? Disposition: patient continues admission to the medical unit for further evaluation and treatment of altered mental status with acute encephalopathy possible secondary to drug induced or new lacunar infarct. Infarct old likely metabolic encephalopathy patient improving overall is able to have oral intake and is responding name will answer some questions. Plan is to return to [facility] when medically stable. Time Spent With Patient Time with patient: 15 - 25 minutes Subjective Date/time seen: 04/10/24 11:22 Interval history: Interval history: This is an 88 year old male who presented from [place] [facility] bed [facility] to [facility] on 04/05/24 for further evaluation of his him acute encephalopathy.Patient was thought to have acute encephalopathy from Cefepime and use of Remeron which were both held. New CT head shown on old lacunar infarct however his last scan did not show any acute abnormalities. Neurology was consulted. 04/10/24: Patient up in chair alert and answering some questions appears back to mental baseline interacting and eating well just waiting on auth for Swing bed. Daughter at bedside updated Review of Systems Review of Systems: All systems reviewed & are unremarkable except as noted in HPI and below Exam Narrative: General: In no acute distress, well nourished Cardiac: Normal S1 and S2. No murmur, gallops or friction rubs, peripheral pulses intact. Respiratory: Lungs clear to auscultation, no adventitious lung sounds, currently on room air Gastrointestinal: soft, non-distended, non-tender, normoactive bowel sounds. : voiding without difficulty. Extremities: moves all extremities, no edema, right elbow in brace Neuro: Alert to voice and oriented x1 Objective Data Vital Signs Vital Signs: Vital Signs - 24 hr 04/09/24 12:00 04/09/24 16:00 04/09/24 16:08 Temperature 97.5 F L Pulse Rate 79 91 91 Respiratory Rate 16 Blood Pressure 133/69 Pulse Oximetry 100 Oxygen Delivery 04/09/24 20:00 04/09/24 20:00 04/09/24 22:00 Temperature 97.8 F Pulse Rate 97 93 Respiratory Rate 18 Blood Pressure 153/45 H Pulse Oximetry 98 Oxygen Delivery Room Air 04/10/24 00:00 04/10/24 04:00 04/10/24 06:00 Temperature 97.0 F L Pulse Rate 94 87 93 Respiratory Rate 20 Blood Pressure 162/88 H Pulse Oximetry 100 Oxygen Delivery 04/10/24 09:32 Temperature Pulse Rate Respiratory Rate Blood Pressure Pulse Oximetry 98 Oxygen Delivery Room Air Intake/Output Intake/Output: Intake & Output 04/07/24 04/08/24 04/09/24 04/10/24 23:59 23:59 23:59 23:59 Intake Total 1730 1140 1910 774 Output Total 3750 1200 3000 2150 [facility] -2020 -60 -1090 -1376 Meds/Results Medications: Active Medications Generic Name Dose Route Start Last Admin Trade Name Freq PRN Reason Stop Dose Admin Al Hydrox/Mg Hydrox/Simethicone 30 ml 04/05/24 20:58 Mag Hydrox/Al Hydrox/Simeth 30 Ml Udc PO QID PRN Dyspepsia Aspirin 81 mg 04/06/24 09:00 04/10/24 09:20 Aspirin 81 Mg Enteric Tablet PO 81 mg DAILY DANIELLE Administration Atorvastatin Calcium 40 mg 04/06/24 09:00 04/10/24 09:19 Atorvastatin 40 Mg Tablet PO 40 mg DAILY DANIELLE Administration Dextrose 12.5 gm 04/05/24 20:34 Dextrose 50% 25 Gm/50 Ml Syringe IV PUSH PRN PRN Hypoglycemia Protocol Glucagon 1 mg 04/05/24 20:34 Glucagon For Inj 1 Mg Vial IM PRN PRN Hypoglycemia Protocol Glucose 15 gm 04/05/24 20:34 Glucose Oral Gel 15 Gm Of Glucse In 37.5 Gm Tube PO PRN PRN Hypoglycemia Protocol Dextrose 1,000 mls @ 100 mls/hr 04/05/24 20:34 Dextrose 5% 1,000 Ml IVPB PRN PRN Hypoglycemia Protocol Insulin Aspart 2 - 5 units 04/07/24 17:00 04/10/24 09:25 Insulin Aspart (*Bkc) 100 Units/Ml SUB-Q 2 units TIDWM DANIELLE Administration Protocol Levothyroxine Sodium 75 mcg 04/06/24 06:30 04/10/24 05:30 Levothyroxine Sodium 75 Mcg Tablet PO 75 mcg DAILY@0630 DANIELLE Administration Magnesium Hydroxide 30 ml 04/05/24 20:58 Magnesium Hydroxide Susp 30 Ml Udc PO DAILY PRN Constipation Memantine 5 mg 04/05/24 21:15 04/10/24 09:19 Memantine 5 Mg Tablet PO 5 mg BID DANIELLE Administration Nystatin 5 ml 04/07/24 13:00 04/10/24 09:19 Nystatin 100,000 Units/Ml Susp 5 Ml Oral.Susp PO 5 ml QID DANIELLE Administration Ondansetron HCl 4 mg 04/05/24 20:58 Ondansetron Inj 4 Mg/2 Ml Vial IV PUSH Q6H PRN Nausea And Vomiting Senna/Docusate Sodium 1 tab 04/05/24 20:56 Senna/Docusate Sodium Tablet PO DAILY PRN constipation Sodium Chloride 20 ml 04/06/24 13:19 04/08/24 06:10 Central Line Flush IV PUSH 20 ml PRN PRN Administration after blood draws Sodium Chloride 10 ml 04/06/24 13:19 Central Line Flush IV PUSH PRN PRN with TPN bag changes Sodium Chloride 10 ml 04/06/24 14:00 04/10/24 05:30 Central Line Flush IV PUSH 10 ml Q8HR DANIELLE Administration Radiology Results: ITS Impressions Brain MRI 04/06/24 10:25 IMPRESSION: 1. Moderate nonspecific cerebral white matter disease, which likely represents chronic small vessel ischemic disease, mildly worsened from 03/21/22. Labs Labs: Laboratory Results - last 24 hr 04/09/24 04/09/24 04/09/24 12:03 16:45 20:33 WBC RBC Hgb Hct MCV MCH MCHC RDW Plt Count MPV Sodium Potassium Chloride Carbon Dioxide Anion Gap BUN Creatinine Estim Creat Clear Calc Estimated GFR Glucose POC Capillary Glucose 226 H 205 H 176 H Calcium Magnesium Total Bilirubin AST ALT Alkaline Phosphatase Total Protein Albumin 04/10/24 04/10/24 05:34 09:19 WBC 10.7 H RBC 3.21 L Hgb 10.0 L Hct 30.3 L MCV 94.4 MCH 31.2 MCHC 33.0 RDW 13.8 Plt Count 255 MPV 11.0 H Sodium 132 L Potassium 3.7 Chloride 96 L Carbon Dioxide 32 H Anion Gap 4 BUN 16 Creatinine 0.73 Estim Creat Clear Calc 58 Estimated GFR > 60 Glucose 192 H POC Capillary Glucose 201 H Calcium 8.3 L Magnesium 1.3 L Total Bilirubin 0.4 AST 20 ALT 17 Alkaline Phosphatase 74 Total Protein 6.0 L Albumin 2.8 L Quality VTE Prophylaxis VTE prophylaxis: mechanical ordered -Patient's previous records reviewed on admission -ER notes reviewed in detail on admission -discussed all findings and current treatment plan with patient/Family/POA -Consultations reviewed for recommendations -Patient's disposition for safe discharge discussed with high risk case manager Dictation performed by [employer] direct speech recognition software, therefore finished cloth checker variants and typographical errors may occur. Hospitalist [facility] Advance Care Plan I have confirmed that the patient's Advanced Care Plan is present, code status is documented, or surrogate decision maker is listed in patient medical record.: Yes Medication Reconciliation I have utilized all available resources to obtain, update and review the patients current medications (includes all prescriptions, OTC, herbals, cannabis, and nutritional supplements).: Yes The patient is not eligible for med reconciliation; the patient is in a emergent medical situation where delaying treatment would jeopardize the patients health.: No
--- NOTE | 2024-04-10 11:27 | PCNFU ---
Nutrition Follow-Up Complete: Severe Protein Calorie Malnutrition as related to inadequate energy intake as evidenced by significant weight loss of 13 ibs (9%) in 1 month/3 weeks; minimal oral intake for > 5 days; Severe muscle wasting (temporalis). Goal: Meet estimate nutritional needs. Patient is progressing towards goal. We will continue current goal. Pt current nutrition is Minced and Moist Level 5/DBCC Last recorded weight is 65.3 kg, up from 62.2 kg on admit. Bowel Motility: +BM reported 04/07 Labs Reviewed: Mg 1.3, NA 132, Alb 2.8, Hgb 10.0 Meds Noted:Lipitor, Plavix, Synthroid Skin: WNL Additional Notes: Patient remains on a modified diet. He is tolerating diet 40-50% of meals with assist. Diet supplements of Nutritional Ice Cream TID and Glucerna shakes BID are being provided for additional kcal and protein needs. Will monitor weight, labs, skin, diet orders, meds every 3 days.
[2024-04-10 11:39] LABS: Glucose Point of Care 214 mg/dl (65-105)
[2024-04-10 17:03] LABS: Glucose Point of Care 196 mg/dl (65-105)
[2024-04-10] MEDS: ACETAMINOPHEN 325 MG TABLET 650 MG PO (20:03)
[2024-04-10] MEDS: MAGNESIUM SULF 4 GM/WATER100ML 4 GM/100 ML BAG IVPB (21:14)
[2024-04-11] VITALS (9 sets, daily range): BP systolic 122–149; BP diastolic 64–79; PULSE 75–102; RESP 18–20; TEMP 36.4–36.9; O2SAT 96–100
[2024-04-11] MEDS: CENTRAL LINE FLUSH 10 ML IV PUSH ×3 (05:58→19:59)
[2024-04-11] MEDS: LEVOTHYROXINE SODIUM 75 MCG TABLET PO (05:58)
[2024-04-11 06:11] LABS: Hematocrit 30.2 % (42.0-52.0); Mean Corpuscular HGB Conc 33.1 g/dl (32-36); Mean Corpuscular Hemoglobin 31.3 pg (26-34); Mean Corpuscular Volume 94.4 fl (80-100); Mean Platelet Volume 10.6 fl (7.4-10.4); Platelet Count Result 273 k/mm3 (150-375); Red Cell Distribution Width 13.9 % (11.5-14.5)
[2024-04-11 06:17] LABS: Glucose Point of Care 293 mg/dl (65-105)
[2024-04-11 06:33] LABS: Alanine Aminotransferase 17 U/L (6-50); Albumin Level 2.8 g/dL (3.5-5.1); Alkaline Phosphatase 71 U/L (38-126); Anion Gap 2 mmol/L (4-12); Aspartate Amino Transferase 21 U/L (17-59); Bilirubin,Total 0.4 mg/dL (0.2-1.3); Blood Urea Nitrogen 14 mg/dL (9-20); Calcium 8.8 mg/dL (8.4-10.2); Carbon Dioxide 35 mmol/L (22-30); Chloride 97 mmol/L (98-107); Estimated CRCL calculation 60 ml/min; Estimated Glomerular Filt Rate > 60; Glucose 190 mg/dL (65-110); Potassium 4.1 mmol/L (3.4-5.0); Sodium 134 mmol/L (137-145)
[2024-04-11 08:12] LABS: Glucose Point of Care 213 mg/dl (65-105)
[2024-04-11] MEDS: MEMANTINE 5 MG TABLET PO ×2 (09:48→17:48)
[2024-04-11] MEDS: NYSTATIN 100,000 UNITS/ML SUSP 5 ML ORAL.SUSP PO ×4 (09:48→19:59)
[2024-04-11] MEDS: ATORVASTATIN 40 MG TABLET PO (09:48)
[2024-04-11] MEDS: ASPIRIN 81 MG ENTERIC TABLET PO (09:48)
[2024-04-11] MEDS: INSULIN ASPART (*BKC) 100 UNITS/ML SUB-Q (09:49)
[2024-04-11 12:06] LABS: Glucose Point of Care 197 mg/dl (65-105)
--- NOTE | 2024-04-11 13:59 | P.PNIM_ITS ---
Progress Note: A&P Assessment and Plan (1) Acute encephalopathy: Code(s): G93.40 - Encephalopathy, unspecified Status: Acute Assessment and Plan: Patient with potential drug-induced encephalopathy secondary to Remeron or cefepime * patient had been switched to Zosyn have 3 more doses to complete therapy * neuro checks * currently NPO pending swallow evaluation * PICC line placed * will start TPN for nutrition * may need PEG tube placement if no improvement * Patient does have a history of Dementia * Possible EEG and spinal tap to evaluate for encephalitis per neurology 04/07/2024: * Neuro improving * transition to oral feeding per swallow evaluation of liquids and minced and moist but will be a feeder for now * Working with PT 04/08 * Alert and oriented x1, sleepy today * Tolerating oral feeds * Continue PT and OT * Case coordination following for rehab needs 04/09 * no change, back to baseline (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 * CT Head 03/27/2024 at [place] showed no acute intracranial process * CT Head 04/05/2024: with old lacunar infarct which likely a subacute occurred between 03/27-04/05 * Neurology consulted * currently on ASA * Started on Plavix and statin once able to have oral pills or peg tube placed * Echo with bubble study pending * NPO * swallow evaluation * MRI no acute findings Findings of old infarct on previous CT head this was likely Metabolic encephalopathy will stop plavix and just continue ASA 04/08: * No changes (3) Physical deconditioning: Code(s): R53.81 - Other malaise Status: Acute Assessment and Plan: * Will need PT/OT re-evaluation and likely rehab when stable 04/08 * Continue PT and OT 04/09 * continue PT and OT * Case management notified of patient's baseline level of functioning * Plan is for patient to go back home with family (4) Protein calorie malnutrition: Code(s): E46 - Unspecified protein-calorie malnutrition Status: Acute Assessment and Plan: * NPO * Swallow evaluation * TPN started * may need peg tube if no improvement * consulted dietitian * monitor and replenish electrolytes 04/08 * enocurage po intake 04/09 * No change (5) Dementia: Code(s): F03.90 - Unspecified dementia, unspecified severity, without behavioral disturbance, psychotic disturbance, mood disturbance, and anxiety Status: Acute Assessment and Plan: * Holding Donaldo CANTU 04/08 * Continue Namejojo Plan Code Status: Full code per Family DVT prophylaxis: SCD's Stress ulcer prophylaxis: NA PT/OT notes: PT/OT Swing?? Disposition: patient continues admission to the medical unit for further evaluation and treatment of altered mental status with acute encephalopathy possible secondary to drug induced or new lacunar infarct. Infarct old likely metabolic encephalopathy patient improving overall is able to have oral intake and is responding name will answer some questions. Plan for SNF at discharge will likely need longer then what is available to at Swing bed Time Spent With Patient Time with patient: 15 - 25 minutes Subjective Date/time seen: 04/11/24 13:59 Interval history: Interval history: This is an 88 year old male who presented from [facility] bed program to [facility] on 04/05/24 for further evaluation of his him acute encephalopathy.Patient was thought to have acute encephalopathy from Cefepime and use of Remeron which were both held. New CT head shown on old lacunar infarct however his last scan did not show any acute abnormalities. Neurology was consulted. 04/11/24: Patient in bed daughter at bedside alert and answering some questions. Patient denies any pain and is tolerating food still requires a bit of help with feeding. Currently waiting on [facility] for SNF Review of Systems Review of Systems: All systems reviewed & are unremarkable except as noted in HPI and below ROS unobtainable: Yes unobtainable due to medical condition and unobtainable due to mental status (able to deny pain ) Exam Narrative: General: In no acute distress, well nourished Cardiac: Normal S1 and S2. No murmur, gallops or friction rubs, peripheral pulses intact. Respiratory: Lungs clear to auscultation, no adventitious lung sounds, currently on room air Gastrointestinal: soft, non-distended, non-tender, normoactive bowel sounds. : voiding without difficulty. Extremities: moves all extremities, no edema, right elbow in brace Neuro: Alert to voice and oriented x1 Objective Data Vital Signs Vital Signs: Vital Signs - 24 hr 04/10/24 14:00 04/10/24 16:00 04/10/24 20:00 Temperature 97.6 F Pulse Rate 69 93 Respiratory Rate 16 Blood Pressure 150/70 H Pulse Oximetry 96 Oxygen Delivery Room Air 04/10/24 20:00 04/10/24 22:00 04/11/24 00:00 Temperature 98.6 F Pulse Rate 100 87 76 Respiratory Rate 20 Blood Pressure 110/53 L Pulse Oximetry 100 Oxygen Delivery 04/11/24 04:00 04/11/24 06:00 04/11/24 08:00 Temperature 98.4 F Pulse Rate 75 80 80 Respiratory Rate 20 20 Blood Pressure 149/79 H Pulse Oximetry 100 100 Oxygen Delivery Room Air Intake/Output Intake/Output: Intake & Output 04/08/24 04/09/24 04/10/24 04/11/24 23:59 23:59 23:59 23:59 Intake Total 1140 1910 2088 760 Output Total 1200 3000 2650 2300 Balance -60 -1090 -562 -1540 Meds/Results Medications: Active Medications Generic Name Dose Route Start Last Admin Trade Name Freq PRN Reason Stop Dose Admin Acetaminophen 650 mg 04/10/24 19:37 04/10/24 20:03 Acetaminophen 325 Mg Tablet PO 650 mg Q4H PRN Administration Pain Rated 1-3 Al Hydrox/Mg Hydrox/Simethicone 30 ml 04/05/24 20:58 Mag Hydrox/Al Hydrox/Simeth 30 Ml Udc PO QID PRN Dyspepsia Aspirin 81 mg 04/06/24 09:00 04/11/24 09:48 Aspirin 81 Mg Enteric Tablet PO 81 mg DAILY DANIELLE Administration Atorvastatin Calcium 40 mg 04/06/24 09:00 04/11/24 09:48 Atorvastatin 40 Mg Tablet PO 40 mg DAILY DANIELLE Administration Dextrose 12.5 gm 04/05/24 20:34 Dextrose 50% 25 Gm/50 Ml Syringe IV PUSH PRN PRN Hypoglycemia Protocol Glucagon 1 mg 04/05/24 20:34 Glucagon For Inj 1 Mg Vial IM PRN PRN Hypoglycemia Protocol Glucose 15 gm 04/05/24 20:34 Glucose Oral Gel 15 Gm Of Glucse In 37.5 Gm Tube PO PRN PRN Hypoglycemia Protocol Dextrose 1,000 mls @ 100 mls/hr 04/05/24 20:34 Dextrose 5% 1,000 Ml IVPB PRN PRN Hypoglycemia Protocol Insulin Aspart 2 - 5 units 04/07/24 17:00 04/11/24 12:24 Insulin Aspart (*Bkc) 100 Units/Ml SUB-Q Not Given TIDWM DANIELLE Protocol Levothyroxine Sodium 75 mcg 04/06/24 06:30 04/11/24 05:58 Levothyroxine Sodium 75 Mcg Tablet PO 75 mcg DAILY@0630 DANIELLE Administration Magnesium Hydroxide 30 ml 04/05/24 20:58 Magnesium Hydroxide Susp 30 Ml Udc PO DAILY PRN Constipation Memantine 5 mg 04/05/24 21:15 04/11/24 09:48 Memantine 5 Mg Tablet PO 5 mg BID DANIELLE Administration Nystatin 5 ml 04/07/24 13:00 04/11/24 12:24 Nystatin 100,000 Units/Ml Susp 5 Ml Oral.Susp PO 5 ml QID DANIELLE Administration Ondansetron HCl 4 mg 04/05/24 20:58 Ondansetron Inj 4 Mg/2 Ml Vial IV PUSH Q6H PRN Nausea And Vomiting Senna/Docusate Sodium 1 tab 04/05/24 20:56 Senna/Docusate Sodium Tablet PO DAILY PRN constipation Sodium Chloride 20 ml 04/06/24 13:19 04/08/24 06:10 Central Line Flush IV PUSH 20 ml PRN PRN Administration after blood draws Sodium Chloride 10 ml 04/06/24 13:19 Central Line Flush IV PUSH PRN PRN with TPN bag changes Sodium Chloride 10 ml 04/06/24 14:00 04/11/24 05:58 Central Line Flush IV PUSH 10 ml Q8HR DANIELLE Administration Radiology Results: ITS Impressions Brain MRI 04/06/24 10:25 IMPRESSION: 1. Moderate nonspecific cerebral white matter disease, which likely represents chronic small vessel ischemic disease, mildly worsened from 03/21/22. Labs Labs: Laboratory Results - last 24 hr 04/10/24 04/10/24 04/11/24 17:00 21:40 06:02 WBC 7.0 RBC 3.20 L Hgb 10.0 L Hct 30.2 L MCV 94.4 MCH 31.3 MCHC 33.1 RDW 13.9 Plt Count 273 MPV 10.6 H Sodium 134 L Potassium 4.1 Chloride 97 L Carbon Dioxide 35 H Anion Gap 2 L BUN 14 Creatinine 0.70 Estim Creat Clear Calc 60 Estimated GFR > 60 Glucose 190 H POC Capillary Glucose 196 H 293 H Calcium 8.8 Total Bilirubin 0.4 AST 21 ALT 17 Alkaline Phosphatase 71 Total Protein 6.0 L Albumin 2.8 L 04/11/24 04/11/24 08:09 12:02 WBC RBC Hgb Hct MCV MCH MCHC RDW Plt Count MPV Sodium Potassium Chloride Carbon Dioxide Anion Gap BUN Creatinine Estim Creat Clear Calc Estimated GFR Glucose POC Capillary Glucose 213 H 197 H Calcium Total Bilirubin AST ALT Alkaline Phosphatase Total Protein Albumin Quality VTE Prophylaxis VTE prophylaxis: mechanical ordered -Patient's previous records reviewed on admission -ER notes reviewed in detail on admission -discussed all findings and current treatment plan with patient/Family/POA -Consultations reviewed for recommendations -Patient's disposition for safe discharge discussed with watch case polisher Dictation performed by [employer] direct speech recognition software, therefore road supervisor of engines variants and typographical errors may occur. Hospitalist MIPS Advance Care Plan I have confirmed that the patient's Advanced Care Plan is present, code status is documented, or surrogate decision maker is listed in patient medical record.: Yes Medication Reconciliation I have utilized all available resources to obtain, update and review the patients current medications (includes all prescriptions, OTC, herbals, cannabis, and nutritional supplements).: Yes The patient is not eligible for med reconciliation; the patient is in a emergent medical situation where delaying treatment would jeopardize the patients health.: No
[2024-04-11 17:00] LABS: Glucose Point of Care 188 mg/dl (65-105)
[2024-04-12] VITALS (9 sets, daily range): BP systolic 127–142; BP diastolic 62–78; PULSE 79–111; RESP 16–20; TEMP 36.3–36.6; O2SAT 97–98
[2024-04-12 05:06] LABS: Glucose Point of Care 246 mg/dl (65-105)
[2024-04-12] MEDS: LEVOTHYROXINE SODIUM 75 MCG TABLET PO (05:12)
[2024-04-12] MEDS: CENTRAL LINE FLUSH 10 ML IV PUSH ×3 (05:12→22:00)
[2024-04-12 05:48] LABS: Hematocrit 28.6 % (42.0-52.0); Hemoglobin 9.6 g/dL (14.0-18.0); Mean Corpuscular HGB Conc 33.6 g/dl (32-36); Mean Corpuscular Hemoglobin 31.5 pg (26-34); Mean Corpuscular Volume 93.8 fl (80-100); Mean Platelet Volume 11.2 fl (7.4-10.4); Platelet Count Result 283 k/mm3 (150-375); Red Blood Count 3.05 M/mm3 (4.6-6.20); Red Cell Distribution Width 14.3 % (11.5-14.5); White Blood Count 9.5 K/mm3 (4.5-10.0)
[2024-04-12 06:10] LABS: Alanine Aminotransferase 17 U/L (6-50); Albumin Level 2.9 g/dL (3.5-5.1); Alkaline Phosphatase 69 U/L (38-126); Anion Gap 5 mmol/L (4-12); Aspartate Amino Transferase 22 U/L (17-59); Bilirubin,Total 0.5 mg/dL (0.2-1.3); Blood Urea Nitrogen 15 mg/dL (9-20); Calcium 8.5 mg/dL (8.4-10.2); Carbon Dioxide 30 mmol/L (22-30); Chloride 93 mmol/L (98-107); Estimated CRCL calculation 55 ml/min; Estimated Glomerular Filt Rate > 60; Glucose 219 mg/dL (65-110); Potassium 4.4 mmol/L (3.4-5.0); Sodium 128 mmol/L (137-145)
[2024-04-12 08:26] LABS: Glucose Point of Care 216 mg/dl (65-105)
[2024-04-12] MEDS: NYSTATIN 100,000 UNITS/ML SUSP 5 ML ORAL.SUSP PO ×4 (08:58→22:00)
[2024-04-12] MEDS: MEMANTINE 5 MG TABLET PO ×2 (08:58→17:55)
[2024-04-12] MEDS: ASPIRIN 81 MG ENTERIC TABLET PO (08:58)
[2024-04-12] MEDS: ATORVASTATIN 40 MG TABLET PO (08:58)
[2024-04-12] MEDS: INSULIN ASPART (*BKC) 100 UNITS/ML SUB-Q (09:00)
--- NOTE | 2024-04-12 10:17 | P.PNIM_ITS ---
Progress Note: A&P Assessment and Plan (1) Acute encephalopathy: Code(s): G93.40 - Encephalopathy, unspecified Status: Acute Assessment and Plan: Patient with potential drug-induced encephalopathy secondary to Remeron or cefepime * patient had been switched to Zosyn have 3 more doses to complete therapy * neuro checks * currently NPO pending swallow evaluation * PICC line placed * will start TPN for nutrition * may need PEG tube placement if no improvement * Patient does have a history of Dementia * Possible EEG and spinal tap to evaluate for encephalitis per neurology 04/07/2024: * Neuro improving * transition to oral feeding per swallow evaluation of liquids and minced and moist but will be a feeder for now * Working with PT 04/08 * Alert and oriented x1, sleepy today * Tolerating oral feeds * Continue PT and OT * Case coordination following for rehab needs 04/09 * no change, back to baseline 04/12: * Lethargic and daughter report RT sided worsening weakness * CT head no acute findings (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 * CT Head 03/27/2024 at [place] showed no acute intracranial process * CT Head 04/05/2024: with old lacunar infarct which likely a subacute occurred between 03/27-04/05 * Neurology consulted * currently on ASA * Started on Plavix and statin once able to have oral pills or peg tube placed * Echo with bubble study pending * NPO * swallow evaluation * MRI no acute findings Findings of old infarct on previous CT head this was likely Metabolic encephalopathy will stop plavix and just continue ASA 04/08: * No changes (3) Physical deconditioning: Code(s): R53.81 - Other malaise Status: Acute Assessment and Plan: * Will need PT/OT re-evaluation and likely rehab when stable 04/08 * Continue PT and OT 04/09 * continue PT and OT * Case management notified of patient's baseline level of functioning * Plan is for patient to go back home with family (4) Protein calorie malnutrition: Code(s): E46 - Unspecified protein-calorie malnutrition Status: Acute Assessment and Plan: * NPO * Swallow evaluation * TPN started * may need peg tube if no improvement * consulted dietitian * monitor and replenish electrolytes 04/08 * enocurage po intake 04/09 * No change (5) Dementia: Code(s): F03.90 - Unspecified dementia, unspecified severity, without behavioral disturb ance, psychotic disturbance, mood disturbance, and anxiety Status: Acute Assessment and Plan: * Holding Donaldo STERLINGO 04/08 * Continue Namenda (6) Urinary retention: Code(s): R33.9 - Retention of urine, unspecified Status: Acute Assessment and Plan: * Murillo catheter replaced for urinary retention * Attempt bladder trial * bladder scan if no void after 6 hours and/or post void bladder scan * Flomax daily * failed bladder trial should replace Murillo Plan Code Status: Full code per Family DVT prophylaxis: SCD's Stress ulcer prophylaxis: NA PT/OT notes: PT/OT Swing?? Disposition: patient continues admission to the medical unit for further evaluation and treatment of altered mental status with acute encephalopathy possible secondary to drug induced or new lacunar infarct. Infarct old likely metabolic encephalopathy patient improving overall is able to have oral intake and is responding name will answer some questions. Plan for SNF at discharge accepted at [facility] awaiting on insurance Auth Time Spent With Patient Time with patient: 15 - 25 minutes Subjective Date/time seen: 04/12/24 10:17 Interval history: Interval history: This is an 88 year old male who presented from [facility] bed program to [facility] on 04/05/24 for further evaluation of his him acute encephalopathy.Patient was thought to have acute encephalopathy from Cefepime and use of Remeron which were both held. New CT head shown on old lacunar infarct however his last scan did not show any acute abnormalities. Neurology was consulted. 04/12/24: Patient in bed daughter at bedside alert and answering some questions. Patient denies any pain more lethargic today and daughter states worsening weakness to RT side, CT Head no acute issues. Failed bladder trial patient with some agitation. Review of Systems Review of Systems: All systems reviewed & are unremarkable except as noted in HPI and below Exam Narrative: General: In no acute distress, well nourished Cardiac: Normal S1 and S2. No murmur, gallops or friction rubs, peripheral pulses intact. Respiratory: Lungs clear to auscultation, no adventitious lung sounds, currently on room air Gastrointestinal: soft, non-distended, non-tender, normoactive bowel sounds. : voiding without difficulty. Extremities: moves all extremities, no edema, right elbow in brace Neuro: Alert to voice and oriented x1 Objective Data Vital Signs Vital Signs: Vital Signs - 24 hr 04/11/24 12:00 04/11/24 14:51 04/11/24 16:00 Temperature 97.7 F Pulse Rate 93 91 86 Respiratory Rate 18 Blood Pressure 139/64 Pulse Oximetry 100 Oxygen Delivery 04/11/24 20:00 04/11/24 20:00 04/11/24 22:00 Temperature 97.6 F Pulse Rate 102 H 98 Respiratory Rate 18 Blood Pressure 122/77 Pulse Oximetry 96 Oxygen Delivery Room Air 04/12/24 00:00 04/12/24 04:00 04/12/24 06:00 Temperature 97.8 F Pulse Rate 93 97 96 Respiratory Rate 20 Blood Pressure 131/73 Pulse Oximetry 98 Oxygen Delivery 04/12/24 08:00 04/12/24 08:00 Temperature Pulse Rate 96 Respiratory Rate Blood Pressure Pulse Oximetry Oxygen Delivery Room Air Intake/Output Intake/Output: Intake & Output 04/09/24 04/10/24 04/11/24 04/12/24 23:59 23:59 23:59 23:59 Intake Total 1910 2088 1480 Output Total 3000 2650 2650 1100 [facility] -1090 -562 -1170 -1100 Meds/Results Medications: Active Medications Generic Name Dose Route Start Last Admin Trade Name Freq PRN Reason Stop Dose Admin Acetaminophen 650 mg 04/10/24 19:37 04/10/24 20:03 Acetaminophen 325 Mg Tablet PO 650 mg Q4H PRN Administration Pain Rated 1-3 Al Hydrox/Mg Hydrox/Simethicone 30 ml 04/05/24 20:58 Mag Hydrox/Al Hydrox/Simeth 30 Ml Udc PO QID PRN Dyspepsia Aspirin 81 mg 04/06/24 09:00 04/12/24 08:58 Aspirin 81 Mg Enteric Tablet PO 81 mg DAILY DANIELLE Administration Atorvastatin Calcium 40 mg 04/06/24 09:00 04/12/24 08:58 Atorvastatin 40 Mg Tablet PO 40 mg DAILY DANIELLE Administration Dextrose 12.5 gm 04/05/24 20:34 Dextrose 50% 25 Gm/50 Ml Syringe IV PUSH PRN PRN Hypoglycemia Protocol Glucagon 1 mg 04/05/24 20:34 Glucagon For Inj 1 Mg Vial IM PRN PRN Hypoglycemia Protocol Glucose 15 gm 04/05/24 20:34 Glucose Oral Gel 15 Gm Of Glucse In 37.5 Gm Tube PO PRN PRN Hypoglycemia Protocol Dextrose 1,000 mls @ 100 mls/hr 04/05/24 20:34 Dextrose 5% 1,000 Ml IVPB PRN PRN Hypoglycemia Protocol Insulin Aspart 2 - 5 units 04/07/24 17:00 04/12/24 09:00 Insulin Aspart (*Bkc) 100 Units/Ml SUB-Q 2 units TIDWM DANIELLE Administration Protocol Levothyroxine Sodium 75 mcg 04/06/24 06:30 04/12/24 05:12 Levothyroxine Sodium 75 Mcg Tablet PO 75 mcg DAILY@0630 DANIELLE Administration Magnesium Hydroxide 30 ml 04/05/24 20:58 Magnesium Hydroxide Susp 30 Ml Udc PO DAILY PRN Constipation Memantine 5 mg 04/05/24 21:15 04/12/24 08:58 Memantine 5 Mg Tablet PO 5 mg BID DANIELLE Administration Nystatin 5 ml 04/07/24 13:00 04/12/24 08:58 Nystatin 100,000 Units/Ml Susp 5 Ml Oral.Susp PO 5 ml QID DANIELLE Administration Ondansetron HCl 4 mg 04/05/24 20:58 Ondansetron Inj 4 Mg/2 Ml Vial IV PUSH Q6H PRN Nausea And Vomiting Senna/Docusate Sodium 1 tab 04/05/24 20:56 Senna/Docusate Sodium Tablet PO DAILY PRN constipation Sodium Chloride 20 ml 04/06/24 13:19 04/08/24 06:10 Central Line Flush IV PUSH 20 ml PRN PRN Administration after blood draws Sodium Chloride 10 ml 04/06/24 13:19 Central Line Flush IV PUSH PRN PRN with TPN bag changes Sodium Chloride 10 ml 04/06/24 14:00 04/12/24 05:12 Central Line Flush IV PUSH 10 ml Q8HR DANIELLE Administration Radiology Results: ITS Impressions Brain MRI 04/06/24 10:25 IMPRESSION: 1. Moderate nonspecific cerebral white matter disease, which likely represents chronic small vessel ischemic disease, mildly worsened from 03/21/22. Labs Labs: Laboratory Results - last 24 hr 04/11/24 04/11/24 04/11/24 12:02 16:54 21:57 WBC RBC Hgb Hct MCV MCH MCHC RDW Plt Count MPV Sodium Potassium Chloride Carbon Dioxide Anion Gap BUN Creatinine Estim Creat Clear Calc Estimated GFR Glucose POC Capillary Glucose 197 H 188 H 246 H Calcium Total Bilirubin AST ALT Alkaline Phosphatase Total Protein Albumin 04/12/24 04/12/24 05:22 08:23 WBC 9.5 RBC 3.05 L Hgb 9.6 L Hct 28.6 L MCV 93.8 MCH 31.5 MCHC 33.6 RDW 14.3 Plt Count 283 MPV 11.2 H Sodium 128 L Potassium 4.4 Chloride 93 L Carbon Dioxide 30 Anion Gap 5 BUN 15 Creatinine 0.75 Estim Creat Clear Calc 55 Estimated GFR > 60 Glucose 219 H POC Capillary Glucose 216 H Calcium 8.5 Total Bilirubin 0.5 AST 22 ALT 17 Alkaline Phosphatase 69 Total Protein 6.0 L Albumin 2.9 L Quality VTE Prophylaxis VTE prophylaxis: mechanical ordered -Patient's previous records reviewed on admission -ER notes reviewed in detail on admission -discussed all findings and current treatment plan with patient/Family/POA -Consultations reviewed for recommendations -Patient's disposition for safe discharge discussed with binder caser Dictation performed by [employer] direct speech recognition software, therefore dressed poultry grader variants and typographical errors may occur. Hospitalist MIPS Advance Care Plan I have confirmed that the patient's Advanced Care Plan is present, code status is documented, or surrogate decision maker is listed in patient medical record.: Yes Medication Reconciliation I have utilized all available resources to obtain, update and review the patients current medications (includes all prescriptions, OTC, herbals, cannabis, and nutritional supplements).: Yes The patient is not eligible for med reconciliation; the patient is in a emergent medical situation where delaying treatment would jeopardize the patients health.: No
[2024-04-12 11:43] LABS: Glucose Point of Care 150 mg/dl (65-105)
[2024-04-12 16:43] LABS: Glucose Point of Care 192 mg/dl (65-105)
[2024-04-12 22:42] LABS: Glucose Point of Care 181 mg/dl (65-105)
[2024-04-13] VITALS (9 sets, daily range): BP systolic 105–155; BP diastolic 55–88; PULSE 92–107; RESP 16–18; TEMP 36.2–36.6; O2SAT 95–99
[2024-04-13] MEDS: CENTRAL LINE FLUSH 20 ML IV PUSH (05:16)
[2024-04-13] MEDS: CENTRAL LINE FLUSH 10 ML IV PUSH ×3 (05:17→20:11)
[2024-04-13 05:31] LABS: Hematocrit 28.6 % (42.0-52.0); Hemoglobin 9.4 g/dL (14.0-18.0); Mean Corpuscular HGB Conc 32.9 g/dl (32-36); Mean Corpuscular Volume 94.4 fl (80-100); Mean Platelet Volume 10.8 fl (7.4-10.4); Platelet Count Result 304 k/mm3 (150-375); Red Blood Count 3.03 M/mm3 (4.6-6.20); Red Cell Distribution Width 14.4 % (11.5-14.5); White Blood Count 10.9 K/mm3 (4.5-10.0)
[2024-04-13 05:44] LABS: Alanine Aminotransferase 16 U/L (6-50); Alkaline Phosphatase 64 U/L (38-126); Anion Gap 7 mmol/L (4-12); Aspartate Amino Transferase 19 U/L (17-59); Bilirubin,Total 0.7 mg/dL (0.2-1.3); Blood Urea Nitrogen 12 mg/dL (9-20); Calcium 8.6 mg/dL (8.4-10.2); Carbon Dioxide 28 mmol/L (22-30); Chloride 93 mmol/L (98-107); Estimated CRCL calculation 56 ml/min; Estimated Glomerular Filt Rate > 60; Glucose 169 mg/dL (65-110); Magnesium 1.7 mg/dL (1.6-2.3); Potassium 4.4 mmol/L (3.4-5.0); Sodium 128 mmol/L (137-145)
[2024-04-13 08:21] LABS: Glucose Point of Care 175 mg/dl (65-105)
[2024-04-13] MEDS: NYSTATIN 100,000 UNITS/ML SUSP 5 ML ORAL.SUSP PO ×4 (08:35→20:11)
[2024-04-13] MEDS: MEMANTINE 5 MG TABLET PO ×2 (08:35→17:50)
[2024-04-13] MEDS: ASPIRIN 81 MG ENTERIC TABLET PO (08:35)
[2024-04-13] MEDS: ATORVASTATIN 40 MG TABLET PO (08:35)
--- NOTE | 2024-04-13 11:42 | P.PNIM_ITS ---
Progress Note: A&P Assessment and Plan (1) Acute encephalopathy: Code(s): G93.40 - Encephalopathy, unspecified Status: Acute Assessment and Plan: Patient with potential drug-induced encephalopathy secondary to Remeron or cefepime * patient had been switched to Zosyn have 3 more doses to complete therapy * neuro checks * currently NPO pending swallow evaluation * PICC line placed * will start TPN for nutrition * may need PEG tube placement if no improvement * Patient does have a history of Dementia * Possible EEG and spinal tap to evaluate for encephalitis per neurology 04/07/2024: * Neuro improving * transition to oral feeding per swallow evaluation of liquids and minced and moist but will be a feeder for now * Working with PT 04/08 * Alert and oriented x1, sleepy today * Tolerating oral feeds * Continue PT and OT * Case coordination following for rehab needs 04/09 * no change, back to baseline 04/12: * Lethargic and daughter report RT sided worsening weakness * CT head no acute findings 04/13 no intake. will need to restart TPN and have plan of care discussion. either peg tube or comfort/hospice. 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 * CT Head 03/27/2024 at [place] showed no acute intracranial process * CT Head 04/05/2024: with old lacunar infarct which likely a subacute occurred between 03/27-04/05 * Neurology consulted * currently on ASA * Started on Plavix and statin once able to have oral pills or peg tube placed * Echo with bubble study pending * NPO * swallow evaluation * MRI no acute findings Findings of old infarct on previous CT head this was likely Metabolic encephalopathy will stop plavix and just continue ASA 04/08: * No changes no acute changes -continue to monitor (3) Physical deconditioning: Code(s): R53.81 - Other malaise Status: Acute Assessment and Plan: * Will need PT/OT re-evaluation and likely rehab when stable 04/08 * Continue PT and OT 04/09 * continue PT and OT * Case management notified of patient's baseline level of functioning * Plan is for patient to go back home with family will need plan of care discussed with family as pt is not eating again (4) Protein calorie malnutrition: Code(s): E46 - Unspecified protein-calorie malnutrition Status: Acute Assessment and Plan: * NPO * Swallow evaluation * TPN started * may need peg tube if no improvement * consulted dietitian * monitor and replenish electrolytes 04/08 * enocurage po intake 04/09 * No change see above-will restart TNP for now (5) Dementia: Code(s): F03.90 - Unspecified dementia, unspecified severity, without behavioral disturbance, psychotic disturbance, mood disturbance, and anxiety Status: Acute Assessment and Plan: * Holding Namenda NPO 04/08 * Continue Namenda (6) Urinary retention: Code(s): R33.9 - Retention of urine, unspecified Status: Acute Assessment and Plan: * Damon catheter replaced for urinary retention * Attempt bladder trial * bladder scan if no void after 6 hours and/or post void bladder scan * Flomax daily * failed bladder trial should replace Damon Plan Code Status: Full code per Family DVT prophylaxis: SCD's Stress ulcer prophylaxis: NA PT/OT notes: PT/OT Swing?? Disposition: patient continues admission to the medical unit for further evaluation and treatment of altered mental status with acute encephalopathy possible secondary to drug induced or new lacunar infarct. Infarct old likely metabolic encephalopathy patient improving overall is able to have oral intake and is responding name will answer some questions. Plan for SNF at discharge accepted at [facility] awaiting on insurance Auth Time Spent With Patient Time with patient: 25 - 35 minutes Subjective Date/time seen: 04/13/24 11:42 Interval history: Interval history: This is an 88 year old male who presented from [facility] bed program to [facility] on 04/05/24 for further evaluation of his him acute encephalopathy.Patient was thought to have acute encephalopathy from Cefepime and use of Remeron which were both held. New CT head shown on old lacunar infarct however his last scan did not show any acute abnormalities. Neurology was consulted. Head CT no acute issues. Failed bladder trial - damon in place. Had TPN but it was stopped due to pt becoming more alert and able to take foods. Now pt is back to being drowsy and sleepy. Will need to have a discussion with family for further goals of care. Pt cannot go to SNF with TPN and if not able to eat-will need peg tube. Peg tube will put pt at risk for aspiration among other risks, so risk/benefit discussion needs to take place. Previously, hospice/comfort care was mentioned as well as one of the options. Review of Systems Review of Systems: All systems reviewed & are unremarkable except as noted in HPI and below ROS unobtainable: Yes unobtainable due to medical condition and unobtainable due to mental status (able to deny pain ) Exam Narrative: General: In no acute distress, well nourished Cardiac: Normal S1 and S2. No murmur, gallops or friction rubs, peripheral pulses intact. Respiratory: Lungs clear to auscultation, no adventitious lung sounds, currently on room air Gastrointestinal: soft, non-distended, non-tender, normoactive bowel sounds. : voiding without difficulty. Extremities: moves all extremities, no edema, right elbow in brace Neuro: Alert to voice and oriented x1 Const: General: comfortable, no acute distress, well developed, alert, awake and average body habitus Nutritional Appearance: average body habitus Orientation/consciousness: oriented to person HENMT: Head: normal to inspection, normocephalic and atraumatic Ears: hearing grossly normal bilaterally Face/Nose/Sinus: normal facial exam Face and sinus: normal facial exam Eyes: General: appearance normal, both eyes and all related structures Pupils: Equal, round and reactive pupils present EOM: EOMs intact bilaterally Neck: Neck: full ROM, no lymphadenopathy and no JVD Thyroid: thyroid normal Lymphatic: no lymphadenopathy noted Resp: Effort & Inspection: normal respiratory effort and able to speak in complete sentences Auscultation: clear to auscultation bilaterally Cardio: Jugular venous distension: no JVD Rate: regular rate Rhythm: regular rhythm Heart sounds: S1 normal heart sound present and S2 normal heart sound present : General: Yes deferred Skin: Rashes: no rashes Wounds: no wounds Neuro: General: oriented to person and Unable to assess gait Cranial nerves: Yes CN's II-XII intact bilaterally and Yes Equal, round and reactive pupils present Cognition (Neuro): abnormal cognition (Disoriented) Speech: normal speech Gait exam (Neuro): Unable to assess gait Motor exam (neuro): 5/5 motor strength present throughout Extrem: General: normal to inspection, full ROM, no joint enlargement and no pedal edema Other: Right upper extremity brace in place Objective Data Vital Signs Vital Signs: Vital Signs - 24 hr 04/12/24 12:00 04/12/24 14:00 04/12/24 16:00 Temperature 97.3 F L Pulse Rate 105 H 79 103 H Respiratory Rate 16 Blood Pressure 142/78 H Pulse Oximetry 98 Oxygen Delivery 04/12/24 20:00 04/12/24 20:00 04/12/24 21:57 Temperature 97.9 F Pulse Rate 111 H 106 H Respiratory Rate 18 Blood Pressure 127/62 Pulse Oximetry 97 Oxygen Delivery Room Air 04/13/24 00:00 04/13/24 04:00 04/13/24 05:12 Temperature 97.8 F Pulse Rate 107 H 107 H 93 Respiratory Rate 16 Blood Pressure 105/55 L Pulse Oximetry 95 Oxygen Delivery 04/13/24 08:00 Temperature Pulse Rate Respiratory Rate Blood Pressure Pulse Oximetry Oxygen Delivery Room Air Intake/Output Intake/Output: Intake & Output 04/10/24 04/11/24 04/12/24 04/13/24 23:59 23:59 23:59 23:59 Intake Total 2088 1480 357 100 Output Total 2650 2650 1410 1075 [facility] [phone] Meds/Results Medications: Active Medications Generic Name Dose Route Start Last Admin Trade Name Freq PRN Reason Stop Dose Admin Acetaminophen 650 mg 04/10/24 19:37 04/10/24 20:03 Acetaminophen 325 Mg Tablet PO 650 mg Q4H PRN Administration Pain Rated 1-3 Al Hydrox/Mg Hydrox/Simethicone 30 ml 04/05/24 20:58 Mag Hydrox/Al Hydrox/Simeth 30 Ml Udc PO QID PRN Dyspepsia Aspirin 81 mg 04/06/24 09:00 04/13/24 08:35 Aspirin 81 Mg Enteric Tablet PO 81 mg DAILY DANIELLE Administration Atorvastatin Calcium 40 mg 04/06/24 09:00 04/13/24 08:35 Atorvastatin 40 Mg Tablet PO 40 mg DAILY DANIELLE Administration Dextrose 12.5 gm 04/05/24 20:34 Dextrose 50% 25 Gm/50 Ml Syringe IV PUSH PRN PRN Hypoglycemia Protocol Glucagon 1 mg 04/05/24 20:34 Glucagon For Inj 1 Mg Vial IM PRN PRN Hypoglycemia Protocol Glucose 15 gm 04/05/24 20:34 Glucose Oral Gel 15 Gm Of Glucse In 37.5 Gm Tube PO PRN PRN Hypoglycemia Protocol Dextrose 1,000 mls @ 100 mls/hr 04/05/24 20:34 Dextrose 5% 1,000 Ml IVPB PRN PRN Hypoglycemia Protocol Insulin Aspart 2 - 5 units 04/07/24 17:00 04/13/24 08:34 Insulin Aspart (*Bkc) 100 Units/Ml SUB-Q Not Given [facility] Protocol Levothyroxine Sodium 75 mcg 04/06/24 06:30 04/13/24 08:39 Levothyroxine Sodium 75 Mcg Tablet PO Not Given DAILY@0630 [facility] Magnesium Hydroxide 30 ml 04/05/24 20:58 Magnesium Hydroxide Susp 30 Ml Udc PO DAILY PRN Constipation Memantine 5 mg 04/05/24 21:15 04/13/24 08:35 Memantine 5 Mg Tablet PO 5 mg BID DANIELLE Administration Nystatin 5 ml 04/07/24 13:00 04/13/24 08:35 Nystatin 100,000 Units/Ml Susp 5 Ml Oral.Susp PO 5 ml QID DANIELLE Administration Ondansetron HCl 4 mg 04/05/24 20:58 Ondansetron Inj 4 Mg/2 Ml Vial IV PUSH Q6H PRN Nausea And Vomiting Senna/Docusate Sodium 1 tab 04/05/24 20:56 Senna/Docusate Sodium Tablet PO DAILY PRN constipation Sodium Chloride 20 ml 04/06/24 13:19 04/13/24 05:16 Central Line Flush IV PUSH 20 ml PRN PRN Administration after blood draws Sodium Chloride 10 ml 04/06/24 13:19 Central Line Flush IV PUSH PRN PRN with TPN bag changes Sodium Chloride 10 ml 04/06/24 14:00 04/13/24 05:17 Central Line Flush IV PUSH 10 ml Q8HR [facility] Administration Tamsulosin HCl 0.4 mg 04/12/24 14:25 04/13/24 08:35 Tamsulosin Hcl 0.4 Mg Capsule PO Not Given QAM [facility] Radiology Results: ITS Impressions Brain MRI 04/06/24 10:25 IMPRESSION: 1. Moderate nonspecific cerebral white matter disease, which likely represents chronic small vessel ischemic disease, mildly worsened from 03/21/22. Head CT 04/12/24 12:34 IMPRESSION: 1. No acute intracranial process. 2. Stable appearance of age-related changes including moderate diffuse on loss and mild scattered white matter hypoattenuation consistent with chronic small vessel ischemic disease. Labs Labs: Laboratory Results - last 24 hr 04/12/24 04/12/24 04/12/24 11:41 16:39 22:05 WBC RBC Hgb Hct MCV MCH MCHC RDW Plt Count MPV Sodium Potassium Chloride Carbon Dioxide Anion Gap BUN Creatinine Estim Creat Clear Calc Estimated GFR Glucose POC Capillary Glucose 150 H 192 H 181 H Calcium Magnesium Total Bilirubin AST ALT Alkaline Phosphatase Total Protein Albumin 04/13/24 04/13/24 04/13/24 05:24 05:25 08:17 WBC 10.9 H RBC 3.03 L Hgb 9.4 L Hct 28.6 L MCV 94.4 MCH 31.0 MCHC 32.9 RDW 14.4 Plt Count 304 MPV 10.8 H Sodium 128 L Potassium 4.4 Chloride 93 L Carbon Dioxide 28 Anion Gap 7 BUN 12 Creatinine 0.74 Estim Creat Clear Calc 56 Estimated GFR > 60 Glucose 169 H POC Capillary Glucose 175 H Calcium 8.6 Magnesium 1.7 Total Bilirubin 0.7 AST 19 ALT 16 Alkaline Phosphatase 64 Total Protein 6.0 L Albumin 3.0 L Quality VTE Prophylaxis VTE prophylaxis: mechanical ordered
[2024-04-13 11:57] LABS: Glucose Point of Care 183 mg/dl (65-105)
--- NOTE | 2024-04-13 12:28 | PCNFU ---
Nutrition Follow-Up Complete: Severe Protein Calorie Malnutrition as related to inadequate energy intake as evidenced by significant weight loss of 13 ibs (9%) in 1 month/3 weeks; minimal oral intake for > 5 days; Severe muscle wasting (temporalis). goal: Meet estimate nutritional needs. Patient has limited progress towards goal. We will continue current goal. Pt current nutrition is NPO. Nutrition recommendation: TPN at 40 ml/hr. Last recorded weight is 64 kg, up from 62.2 kg on admit. Bowel Motility: Last reported BM 04/07 Labs Reviewed:Na 128, Glu 169, Alb 3.0 Meds Noted:Lipitor,Synthroid, Plavix, Clinimix 5/15 at 40 ml/hr with 250 ml of 20% Lipid Emulsion. Skin: WNL Additional Notes: Spoke with nursing today, PO intake has been for poor for past 2 days (10% or less). Spoke with hospitalist today regarding plan of care. TPN is to be started at this time, till family discussion regarding PEG. Will continue to monitor. Will monitor weight, labs, skin, diet orders, meds every Wednesday and Wednesday.
[2024-04-13] MEDS: FAT EMULSIONS IV 20% 250 ML 20.83 ML IVPB (13:27)
[2024-04-13] MEDS: AMINO ACIDS 5%/D15W/E-LYTES/CA 1,000 ML with MULTIVITAMINS-12 INJ VIAL 1 1.25 ML, MULTI... 40 ML IV CONT (13:27)
[2024-04-13 13:50] LABS: Basophils Absolute Auto 0.1 K/mm3 (0.0-0.1); Basophils Percent Auto 1.1 % (0.2-1.2); Eosinophils Absolute Auto 0.1 K/mm3 (0-0.3); Eosinophils Percent Auto 0.7 % (0-4.4); Hematocrit 29.9 % (42.0-52.0); Hemoglobin 9.9 g/dL (14.0-18.0); Immature Granulocyte Absolute 0.05 K/mm3 (0.00-0.031); Immature Granulocyte Percent A 0.5 % (0-0.5); Lymphocytes Percent Auto 11.3 % (18.3-44.2); Mean Corpuscular HGB Conc 33.1 g/dl (32-36); Mean Corpuscular Hemoglobin 31.4 pg (26-34); Mean Corpuscular Volume 94.9 fl (80-100); Mean Platelet Volume 10.8 fl (7.4-10.4); Monocytes Absolute Auto 1.3 K/mm3 (0.1-0.6); Monocytes Percent Auto 13.2 % (2.6-8.5); Neutrophils Absolute Auto 7.1 K/mm3 (1.3-6.7); Neutrophils Percent Auto 73.2 % (45.5-73.1); Platelet Count Result 328 k/mm3 (150-375); Red Blood Count 3.15 M/mm3 (4.6-6.20); Red Cell Distribution Width 14.4 % (11.5-14.5); White Blood Count 9.7 K/mm3 (4.5-10.0)
[2024-04-13 14:02] LABS: Alanine Aminotransferase 18 U/L (6-50); Albumin Level 3.2 g/dL (3.5-5.1); Alkaline Phosphatase 68 U/L (38-126); Anion Gap 6 mmol/L (4-12); Aspartate Amino Transferase 24 U/L (17-59); Bilirubin,Total 0.7 mg/dL (0.2-1.3); Blood Urea Nitrogen 13 mg/dL (9-20); Calcium 8.8 mg/dL (8.4-10.2); Carbon Dioxide 29 mmol/L (22-30); Chloride 93 mmol/L (98-107); Estimated CRCL calculation 53 ml/min; Estimated Glomerular Filt Rate > 60; Glucose 178 mg/dL (65-110); Magnesium 1.7 mg/dL (1.6-2.3); Potassium 4.3 mmol/L (3.4-5.0); Sodium 128 mmol/L (137-145)
[2024-04-13 14:05] LABS: Partial Thromboplastin Time 32.1 Seconds (22.3-36.8)
[2024-04-13 14:09] LABS: Transferrin 154 mg/dL (206-381)
[2024-04-13 16:54] LABS: Glucose Point of Care 254 mg/dl (65-105)
[2024-04-13] MEDS: INSULIN ASPART (*BKC) 100 UNITS/ML SUB-Q ×2 (17:56→23:33)
[2024-04-13 23:41] LABS: Glucose Point of Care 261 mg/dl (65-105)
[2024-04-14] VITALS: PULSE 104
[2024-04-14 04:00] VITALS: PULSE 93
[2024-04-14] MEDS: LEVOTHYROXINE SODIUM 75 MCG TABLET PO (05:32)
[2024-04-14] MEDS: CENTRAL LINE FLUSH 10 ML IV PUSH ×3 (05:32→21:21)
[2024-04-14] MEDS: CENTRAL LINE FLUSH 20 ML IV PUSH (05:32)
[2024-04-14] MEDS: INSULIN ASPART (*BKC) 100 UNITS/ML SUB-Q ×3 (05:40→18:42)
[2024-04-14 05:49] LABS: Hematocrit 28.2 % (42.0-52.0); Hemoglobin 9.2 g/dL (14.0-18.0); Mean Corpuscular HGB Conc 32.6 g/dl (32-36); Mean Corpuscular Hemoglobin 30.7 pg (26-34); Mean Platelet Volume 10.8 fl (7.4-10.4); Platelet Count Result 330 k/mm3 (150-375); Red Cell Distribution Width 14.1 % (11.5-14.5); White Blood Count 9.4 K/mm3 (4.5-10.0)
[2024-04-14 05:56] VITALS: BP 152/78; PULSE 100; RESP 18; TEMP 36.2; O2SAT 100
[2024-04-14 06:06] LABS: Alanine Aminotransferase 19 U/L (6-50); Alkaline Phosphatase 62 U/L (38-126); Anion Gap 6 mmol/L (4-12); Aspartate Amino Transferase 23 U/L (17-59); Bilirubin,Total 0.5 mg/dL (0.2-1.3); Blood Urea Nitrogen 19 mg/dL (9-20); Calcium 8.4 mg/dL (8.4-10.2); Carbon Dioxide 29 mmol/L (22-30); Chloride 92 mmol/L (98-107); Estimated CRCL calculation 57 ml/min; Estimated Glomerular Filt Rate > 60; Glucose 264 mg/dL (65-110); Phosphorus 3.6 mg/dL (2.5-4.5); Potassium 4.1 mmol/L (3.4-5.0); Sodium 127 mmol/L (137-145)
[2024-04-14 06:13] LABS: Glucose Point of Care 255 mg/dl (65-105)
--- NOTE | 2024-04-14 10:02 | PC.NURSE ---
Patient sleeping. RN and DOCTOR OF PODIATRIC MEDICINE have attempted to wake patient up for medication pass and breakfast multiple times. Patient not wanting to wake up, patient snoring, patient also unable to comprehend due to mental status.
--- NOTE | 2024-04-14 10:15 | PC.NURSE ---
RN spoke verbally with hospitalist Marisela in regards to patient sleeping and not wanting to take medications or eat breakfast. Hospitalist assessed patient and was unable to get patient to have conversation with her. Hospitalist stated she would speak with family.
[2024-04-14 10:17] LABS: Triglycerides 64 mg/dL (<150)
--- NOTE | 2024-04-14 12:21 | P.PNIM_ITS ---
Progress Note: A&P Assessment and Plan (1) Acute encephalopathy: Code(s): G93.40 - Encephalopathy, unspecified Status: Acute Assessment and Plan: Patient with potential drug-induced encephalopathy secondary to Remeron or cefepime * patient had been switched to Zosyn have 3 more doses to complete therapy * neuro checks * currently NPO pending swallow evaluation * PICC line placed * will start TPN for nutrition * may need PEG tube placement if no improvement * Patient does have a history of Dementia * Possible EEG and spinal tap to evaluate for encephalitis per neurology 04/07/2024: * Neuro improving * transition to oral feeding per swallow evaluation of liquids and minced and moist but will be a feeder for now * Working with PT 04/08 * Alert and oriented x1, sleepy today * Tolerating oral feeds * Continue PT and OT * Case coordination following for rehab needs 04/09 * no change, back to baseline 04/12: * Lethargic and daughter report RT sided worsening weakness * CT head no acute findings 04/13 no intake. will need to restart TPN and have plan of care discussion. either peg tube or comfort/hospice. 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 * CT Head 03/27/2024 at [place] showed no acute intracranial process * CT Head 04/05/2024: with old lacunar infarct which likely a subacute occurred between 03/27-04/05 * Neurology consulted * currently on ASA * Started on Plavix and statin once able to have oral pills or peg tube placed * Echo with bubble study pending * NPO * swallow evaluation * MRI no acute findings Findings of old infarct on previous CT head this was likely Metabolic encephalopathy will stop plavix and just continue ASA 04/08: * No changes no acute changes -continue to monitor (3) Physical deconditioning: Code(s): R53.81 - Other malaise Status: Acute Assessment and Plan: * Will need PT/OT re-evaluation and likely rehab when stable 04/08 * Continue PT and OT 04/09 * continue PT and OT * Case management notified of patient's baseline level of functioning * Plan is for patient to go back home with family will need plan of care discussed with family as pt is not eating again (4) Protein calorie malnutrition: Code(s): E46 - Unspecified protein-calorie malnutrition Status: Acute Assessment and Plan: * NPO * Swallow evaluation * TPN started * may need peg tube if no improvement * consulted dietitian * monitor and replenish electrolytes 04/08 * enocurage po intake 04/09 * No change see above-will restart TNP for now (5) Dementia: Code(s): F03.90 - Unspecified dementia, unspecified severity, without behavioral disturbance, psychotic disturbance, mood disturbance, and anxiety Status: Acute Assessment and Plan: * Holding Namenda NPO 04/08 * Continue Namenda (6) Urinary retention: Code(s): R33.9 - Retention of urine, unspecified Status: Acute Assessment and Plan: * Damon catheter replaced for urinary retention * Attempt bladder trial * bladder scan if no void after 6 hours and/or post void bladder scan * Flomax daily * failed bladder trial should replace Damon Plan Code Status: Full code per Family DVT prophylaxis: SCD's Stress ulcer prophylaxis: NA PT/OT notes: SNF Disposition: patient continues admission to the medical unit for further evaluation and treatment of altered mental status with acute encephalopathy possible secondary to drug induced or new lacunar infarct. Infarct old likely metabolic encephalopathy patient improving overall is able to have oral intake and is responding name will answer some questions. Plan for SNF at discharge accepted at [facility] awaiting on insurance Auth Subjective Date/time seen: 04/14/24 12:21 Interval history: This is an 88 year old male who presented from [facility] to [facility] on 04/05/24 for further evaluation of his him acute encephalopathy.Patient was thought to have acute encephalopathy from Cefepime and use of Remeron which were both held. New CT head shown on old lacunar infarct however his last scan did not show any acute abnormalities. Neurology was consulted. Head CT no acute issues. Failed bladder trial - damon in place. Had TPN but it was stopped due to pt becoming more alert and able to take foods. Now pt is back to being drowsy and sleepy. Will need to have a discussion with family for further goals of care. Pt cannot go to SNF with TPN and if not able to eat-will need peg tube. Peg tube will put pt at risk for aspiration among other risks, so risk/benefit discussion needs to take place. Previously, hospice/comfort care was mentioned as well as one of the options. Long discussion with daughter, regarding CT results MRI results She is yet to decide about PEG v pleasure feeds not decided yet Long discussion about risks of PEG tube and benefits of hospice care Review of Systems Review of Systems: Poor historian, very confused Exam Narrative: General: In no acute distress, well nourished Cardiac: Normal S1 and S2. No murmur, gallops or friction rubs, peripheral pulses intact. Respiratory: Lungs clear to auscultation, no adventitious lung sounds, currently on room air Gastrointestinal: soft, non-distended, non-tender, normoactive bowel sounds. : voiding without difficulty. Extremities: moves all extremities, no edema, right elbow in brace Neuro: Alert to voice and oriented x1 Objective Data Vital Signs Vital Signs: Vital Signs - 24 hr 04/13/24 14:00 04/13/24 16:00 04/13/24 20:00 Temperature 36.2 C L Pulse Rate 92 99 Respiratory Rate 18 Blood Pressure 108/64 Pulse Oximetry 99 Oxygen Delivery Room Air 04/13/24 20:00 04/13/24 20:13 04/14/24 00:00 Temperature 36.6 C Pulse Rate 97 101 H 104 H Respiratory Rate 18 Blood Pressure 155/88 H Pulse Oximetry 98 Oxygen Delivery 04/14/24 04:00 04/14/24 05:56 04/14/24 10:26 Temperature 36.2 C L Pulse Rate 93 100 Respiratory Rate 18 Blood Pressure 152/78 H Pulse Oximetry 100 Oxygen Delivery Room Air Intake/Output Intake/Output: Intake & Output 04/11/24 04/12/24 04/13/24 04/14/24 23:59 23:59 23:59 23:59 Intake Total 1480 357 340 450 Output Total 2650 1410 1675 500 Balance -1170 -1053 -1335 -50 Meds/Results Medications: Active Medications Generic Name Dose Route Start Last Admin Trade Name Freq PRN Reason Stop Dose Admin Acetaminophen 650 mg 04/10/24 19:37 04/10/24 20:03 Acetaminophen 325 Mg Tablet PO 650 mg Q4H PRN Administration Pain Rated 1-3 Al Hydrox/Mg Hydrox/Simethicone 30 ml 04/05/24 20:58 Mag Hydrox/Al Hydrox/Simeth 30 Ml Udc PO QID PRN Dyspepsia Aspirin 81 mg 04/06/24 09:00 04/14/24 09:00 Aspirin 81 Mg Enteric Tablet PO Not Given DAILY [facility] Atorvastatin Calcium 40 mg 04/06/24 09:00 04/14/24 09:00 Atorvastatin 40 Mg Tablet PO Not Given DAILY [facility] Dextrose 12.5 gm 04/05/24 20:34 Dextrose 50% 25 Gm/50 Ml Syringe IV PUSH PRN PRN Hypoglycemia Protocol Glucagon 1 mg 04/05/24 20:34 Glucagon For Inj 1 Mg Vial IM PRN PRN Hypoglycemia Protocol Glucose 15 gm 04/05/24 20:34 Glucose Oral Gel 15 Gm Of Glucse In 37.5 Gm Tube PO PRN PRN Hypoglycemia Protocol Dextrose 1,000 mls @ 100 mls/hr 04/05/24 20:34 Dextrose 5% 1,000 Ml IVPB PRN PRN Hypoglycemia Protocol Dextrose 1,000 mls @ 50 mls/hr 04/13/24 11:49 Dextrose 10% IV CONT .Q20H PRN if PN is interrupted Multivitamins 1.25 ml/ 1,002.5 mls @ 40 mls/hr 04/13/24 13:00 04/13/24 13:27 Multivitamins 1.25 ml/ Amino IV CONT 40 mls/hr Acids/Electrolytes/Dextrose .Q24H DANIELLE Administration Protocol Fat Emulsion Intravenous 250 mls @ 20.833 mls/hr 04/13/24 13:00 04/14/24 01:48 Lipids 20% IVPB Infused DAILY@1300 [facility] Infusion Insulin Aspart 2 - 5 units 04/13/24 12:06 04/14/24 05:40 Insulin Aspart (*Bkc) 100 Units/Ml SUB-Q 3 units Q6H [facility] Administration Protocol Levothyroxine Sodium 75 mcg 04/06/24 06:30 04/14/24 05:32 Levothyroxine Sodium 75 Mcg Tablet PO 75 mcg DAILY@0630 [facility] Administration Magnesium Hydroxide 30 ml 04/05/24 20:58 Magnesium Hydroxide Susp 30 Ml Udc PO DAILY PRN Constipation Memantine 5 mg 04/05/24 21:15 04/14/24 09:00 Memantine 5 Mg Tablet PO Not Given BID [facility] Nystatin 5 ml 04/07/24 13:00 04/14/24 09:00 Nystatin 100,000 Units/Ml Susp 5 Ml Oral.Susp PO Not Given QID [facility] Ondansetron HCl 4 mg 04/05/24 20:58 Ondansetron Inj 4 Mg/2 Ml Vial IV PUSH Q6H PRN Nausea And Vomiting Senna/Docusate Sodium 1 tab 04/05/24 20:56 Senna/Docusate Sodium Tablet PO DAILY PRN constipation Sodium Chloride 20 ml 04/06/24 13:19 04/14/24 05:32 Central Line Flush IV PUSH 20 ml PRN PRN Administration after blood draws Sodium Chloride 10 ml 04/06/24 13:19 Central Line Flush IV PUSH PRN PRN with TPN bag changes Sodium Chloride 10 ml 04/06/24 14:00 04/14/24 05:32 Central Line Flush IV PUSH 10 ml Q8HR [facility] Administration Tamsulosin HCl 0.4 mg 04/12/24 14:25 04/14/24 09:00 Tamsulosin Hcl 0.4 Mg Capsule PO Not [facility] [place] [place] Radiology Results: ITS Impressions Brain MRI 04/06/24 10:25 IMPRESSION: 1. Moderate nonspecific cerebral white matter disease, which likely represents chronic small vessel ischemic disease, mildly worsened from 03/21/22. Head CT 04/12/24 12:34 IMPRESSION: 1. No acute intracranial process. 2. Stable appearance of age-related changes including moderate diffuse on loss and mild scattered white matter hypoattenuation consistent with chronic small vessel ischemic disease. Labs Labs: Laboratory Results - last 24 hr 04/13/24 04/13/24 04/13/24 13:26 16:50 23:31 WBC 9.7 RBC 3.15 L Hgb 9.9 L Hct 29.9 L MCV 94.9 MCH 31.4 MCHC 33.1 RDW 14.4 Plt Count 328 MPV 10.8 H Immature Gran % (Auto) 0.5 Neut % (Auto) 73.2 H Lymph % (Auto) 11.3 L [place] % (Auto) 13.2 H Eos % (Auto) 0.7 Baso % (Auto) 1.1 Lymph # (Auto) 1.10 [place] # (Auto) 1.3 H Eos # (Auto) 0.1 Baso # (Auto) 0.1 Abs Immat Gran (auto) 0.05 H Absolute Neuts (auto) 7.1 H Absolute Nucleated RBC 0.000 Nucleated RBC % 0.0 APTT 32.1 Sodium 128 L Potassium 4.3 Chloride 93 L Carbon Dioxide 29 Anion Gap 6 BUN 13 Creatinine 0.78 Estim Creat Clear Calc 53 Estimated GFR > 60 Glucose 178 H POC Capillary Glucose 254 H 261 H Calcium 8.8 Phosphorus Magnesium 1.7 Transferrin 154 L Total Bilirubin 0.7 AST 24 ALT 18 Alkaline Phosphatase 68 Total Protein 7.0 Albumin 3.2 L Triglycerides 04/14/24 04/14/24 04/14/24 05:31 05:38 05:40 WBC 9.4 RBC 3.00 L Hgb 9.2 L Hct 28.2 L MCV 94.0 MCH 30.7 MCHC 32.6 RDW 14.1 Plt Count 330 MPV 10.8 H Immature Gran % (Auto) Neut % (Auto) Lymph % (Auto) [place] % (Auto) Eos % (Auto) Baso % (Auto) Lymph # (Auto) [place] # (Auto) Eos # (Auto) Baso # (Auto) Abs Immat Gran (auto) Absolute Neuts (auto) Absolute Nucleated RBC Nucleated RBC % APTT Sodium 127 L Potassium 4.1 Chloride 92 L Carbon Dioxide 29 Anion Gap 6 BUN 19 Creatinine 0.70 Estim Creat Clear Calc 57 Estimated GFR > 60 Glucose 264 H POC Capillary Glucose 255 H Calcium 8.4 Phosphorus 3.6 Magnesium Transferrin Total Bilirubin 0.5 AST 23 ALT 19 Alkaline Phosphatase 62 Total Protein 6.0 L Albumin 3.0 L Triglycerides 64
[2024-04-14] MEDS: AMINO ACIDS 5%/D15W/E-LYTES/CA 1,000 ML with MULTIVITAMINS-12 INJ VIAL 1 1.25 ML, MULTI... 40 ML IV CONT (12:39)
[2024-04-14] MEDS: FAT EMULSIONS IV 20% 250 ML 20.83 ML IVPB (12:39)
[2024-04-14 12:42] LABS: Glucose Point of Care 289 mg/dl (65-105)
[2024-04-14] MEDS: NYSTATIN 100,000 UNITS/ML SUSP 5 ML ORAL.SUSP PO ×3 (12:46→21:21)
--- NOTE | 2024-04-14 13:14 | PCNFU ---
Nutrition Follow-Up Complete: Severe Protein Calorie Malnutrition as related to inadequate energy intake as evidenced by significant weight loss of 13 ibs (9%) in 1 month/3 weeks; minimal oral intake for > 5 days; Severe muscle wasting (temporalis). Goal: Meet estimate nutritional needs. Patient will continue current goal. Pt current nutrition is Minced and Moist, Level 5/DBCC/TPN at 40 ml/hr. Last recorded weight is 61.4 kg, down from 62.2 kg on admit. Bowel Motility: Last reported BM 04/07 Labs Reviewed:Glu 264, Na 127, Hct 28.2, Hgb 9.2 Meds Noted:Clinimix 5/15 at 40 ml/hr with 250 ml of 20% Lipid Emulsion, Lipitor, Synthroid, Protonix. Skin:WNL Additional Notes: Patient continues to have poor po intake-no intake for breakfast reported today. TPN is providing an additional 1182 kcal/48 gm protein meeting 54% of kcal needs at 35 kcal/kg and 77% protein needs. Hospitalist is discussions with family regarding plan of care. If family decides to continue with full care, recommend PEG for nutrition of Glucerna 1.2 goal rate at 70 ml/hr. Will monitor weight, labs, skin, diet orders, meds every Wednesday and Wednesday.
[2024-04-14 14:00] VITALS: BP 136/75; PULSE 100; RESP 14; TEMP 36.6; O2SAT 100
[2024-04-14] MEDS: MEMANTINE 5 MG TABLET PO (17:50)
[2024-04-14 18:01] LABS: Glucose Point of Care 280 mg/dl (65-105)
[2024-04-14 21:19] VITALS: BP 132/55; PULSE 96; RESP 18; TEMP 36.8; O2SAT 96
[2024-04-15 00:07] LABS: Glucose Point of Care 298 mg/dl (65-105)
[2024-04-15] MEDS: INSULIN ASPART (*BKC) 100 UNITS/ML SUB-Q ×4 (00:07→18:06)
[2024-04-15] MEDS: LEVOTHYROXINE SODIUM 75 MCG TABLET PO (05:28)
[2024-04-15] MEDS: CENTRAL LINE FLUSH 20 ML IV PUSH (05:28)
[2024-04-15] MEDS: CENTRAL LINE FLUSH 10 ML IV PUSH ×3 (05:29→21:31)
[2024-04-15 05:54] VITALS: BP 116/62; PULSE 99; RESP 18; TEMP 36.4; O2SAT 96
[2024-04-15 05:58] LABS: Glucose Point of Care 284 mg/dl (65-105)
[2024-04-15 06:03] LABS: Anion Gap 6 mmol/L (4-12); Blood Urea Nitrogen 21 mg/dL (9-20); Calcium 8.3 mg/dL (8.4-10.2); Carbon Dioxide 27 mmol/L (22-30); Chloride 90 mmol/L (98-107); Estimated CRCL calculation 62 ml/min; Estimated Glomerular Filt Rate > 60; Glucose 272 mg/dL (65-110); Phosphorus 3.7 mg/dL (2.5-4.5); Potassium 4.5 mmol/L (3.4-5.0); Sodium 123 mmol/L (137-145)
--- NOTE | 2024-04-15 07:51 | P.PNIM_ITS ---
Progress Note: A&P Assessment and Plan (1) Acute encephalopathy: Code(s): G93.40 - Encephalopathy, unspecified Status: Acute Assessment and Plan: 04/15/24 Patient answers simple questions only. - Needs plan of care discussion. No acute neurological findings. Oral intake poor. - TPN ongoing. Consider peg, placement if no further acute findings. - Encephalopathy may be worsened by significant hyponatremia. - Family meeting tomorrow to discuss possible hospice referral. Patient with potential drug-induced encephalopathy secondary to Remeron or cefepime * patient had been switched to Zosyn have 3 more doses to complete therapy * neuro checks * currently NPO pending swallow evaluation * PICC line placed * will start TPN for nutrition * may need PEG tube placement if no improvement * Patient does have a history of Dementia * Possible EEG and spinal tap to evaluate for encephalitis per neurology 04/07/2024: * Neuro improving * transition to oral feeding per swallow evaluation of liquids and minced and moist but will be a feeder for now * Working with PT 04/08 * Alert and oriented x1, sleepy today * Tolerating oral feeds * Continue PT and OT * Case coordination following for rehab needs 04/09 * no change, back to baseline 04/12: * Lethargic and daughter report RT sided worsening weakness * CT head no acute findings 04/13 no intake. will need to restart TPN and have plan of care discussion. either peg tube or comfort/hospice. 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 He answers simple questions then requests to be left alone. patient was having episodes of altered mental status and became obtunded upon arrival to [facility] initially it appeared patient was suffering from drug-induced encephalopathy from the cefepime and Remeron which both were stopped. * CT Head 03/27/2024 at [place] showed no acute intracranial process * CT Head 04/05/2024: with old lacunar infarct which likely a subacute occurred between 03/27-04/05 * Neurology consulted * currently on ASA * Started on Plavix and statin once able to have oral pills or peg tube placed * Echo with bubble study pending * NPO * swallow evaluation * MRI no acute findings Findings of old infarct on previous CT head this was likely Metabolic encephalopathy will stop plavix and just continue ASA 04/08: * No changes no acute changes -continue to monitor (3) Physical deconditioning: Code(s): R53.81 - Other malaise Status: Acute Assessment and Plan: 04/15/24 - PT/OT and likely rehab. * Will need PT/OT re-evaluation and likely rehab when stable 04/08 * Continue PT and OT 04/09 * continue PT and OT * Case management notified of patient's baseline level of functioning * Plan is for patient to go back home with family will need plan of care discussed with family as pt is not eating again (4) Protein calorie malnutrition: Code(s): E46 - Unspecified protein-calorie malnutrition Status: Acute Assessment and Plan: 04/15/24 - TPN is ongoing. * NPO * Swallow evaluation * TPN started * may need peg tube if no improvement * consulted dietitian * monitor and replenish electrolytes 04/08 * enocurage po intake 04/09 * No change see above-will restart TNP for now (5) Dementia: Code(s): F03.90 - Unspecified dementia, unspecified severity, without behavioral disturbance, psychotic disturbance, mood disturbance, and anxiety Status: Acute Assessment and Plan: * Holding Namejojo NPO 04/08 * Continue Namenda (6) Urinary retention: Code(s): R33.9 - Retention of urine, unspecified Status: Acute Assessment and Plan: 01/13/25 - Consider voiding trial tomorrow if not planning on hospice care. May consider keeping for comfort measures if this is disposition plan. * Murillo catheter replaced for urinary retention * Attempt bladder trial * bladder scan if no void after 6 hours and/or post void bladder scan * Flomax daily * failed bladder trial should replace Murillo (7) Diabetes mellitus: Code(s): E11.9 - Type 2 diabetes mellitus without complications Status: Acute Assessment and Plan: 01/13/25 - Glucose control poor over the last several days. Add in 6 units lantus am today. (8) Hyponatremia: Code(s): E87.1 - Hypo-osmolality and hyponatremia Status: Acute Assessment and Plan: 01/13/25 Worsening hyponatremia, likely secondary in part to hyperglycemia. Also noted poor oral intake, TPN formulation with <400mg sodium. I have discussed with pharmacy and additionally would benefit from dietitian evaluation regarding formulation. - NaCl at 30ml/hr will provide ~7gm sodium/24h. Repeat labs in the am, avoid overcorrection or too rapid correction. - Dietitian consult. - Urine sodium ordered. Consider nephrology consultation if not improving. Plan Mk Sanches is an 88 year old male with hx of dementia, presenting with acute altered mental status and poor po intake with questionable etiology of cefepime encephalopathy versus organic disease. There is not significant improvement at this time, with a family meeting scheduled for tomorrow. Time Spent With Patient Time with patient: 25 - 35 minutes Subjective Date/time seen: 04/15/24 07:51 Interval history: Mk denies any pain or complaints. He does rouse and answers simple questions. Review of Systems Review of Systems: All systems reviewed & are unremarkable except as noted in HPI and below Exam Narrative: GENERAL APPEARANCE: Appears to be in no acute distress. HEAD: normocephalic atraumatic ENT: Hearing grossly intact, no nasal discharge NECK: Neck supple, trachea midline. CARDIAC: Normal S1/S2. Rhythm is regular. No murmurs, rubs, or gallops. No cyanosis or pallor. Extremities are warm and well perfused. LUNGS: Clear to auscultation without rales, rhonchi, wheezing or diminished breath sounds. Respirations even and unlabored. ABDOMEN: BS positive x 4 quadrants. Soft, nondistended, nontender. No guarding or rebound. PERIPHERAL VASCULAR: Peripheral pulses palpable. Normal perfusion, cap refill <2 seconds. No edema. NEURO: Follows simple commands. Oriented to name. Declines to answer further questions and requests, quiet . SKIN: Olinda without lesions or eruptions. Objective Data Vital Signs Vital Signs: Vital Signs - 24 hr 04/14/24 10:26 04/14/24 14:00 04/14/24 20:00 Temperature 97.9 F Pulse Rate 100 Respiratory Rate 14 Blood Pressure 136/75 Pulse Oximetry 100 Oxygen Delivery Room Air Room Air 04/14/24 21:19 04/15/24 05:54 Temperature 98.2 F 97.6 F Pulse Rate 96 99 Respiratory Rate 18 18 Blood Pressure 132/55 L 116/62 Pulse Oximetry 96 96 Oxygen Delivery Intake/Output Intake/Output: Intake & Output 04/12/24 04/13/24 04/14/24 04/15/24 23:59 23:59 23:59 23:59 Intake Total 360 198 2674 Output Total 2845 6002 0294 889 Balance -1496 -5609 716 -258 Meds/Results Medications: Active Medications Generic Name Dose Route Start Last Admin Trade Name Freq PRN Reason Stop Dose Admin Acetaminophen 650 mg 04/10/24 19:37 04/10/24 20:03 Acetaminophen 325 Mg Tablet PO 650 mg Q4H PRN Administration Pain Rated 1-3 Al Hydrox/Mg Hydrox/Simethicone 30 ml 04/05/24 20:58 Mag Hydrox/Al Hydrox/Simeth 30 Ml Udc PO QID PRN Dyspepsia Aspirin 81 mg 04/06/24 09:00 04/14/24 09:00 Aspirin 81 Mg Enteric Tablet PO Not Given DAILY [facility] Atorvastatin Calcium 40 mg 04/06/24 09:00 04/14/24 09:00 Atorvastatin 40 Mg Tablet PO Not Given DAILY [facility] Dextrose 12.5 gm 04/05/24 20:34 Dextrose 50% 25 Gm/50 Ml Syringe IV PUSH PRN PRN Hypoglycemia Protocol Glucagon 1 mg 04/05/24 20:34 Glucagon For Inj 1 Mg Vial IM PRN PRN Hypoglycemia Protocol Glucose 15 gm 04/05/24 20:34 Glucose Oral Gel 15 Gm Of Glucse In 37.5 Gm Tube PO PRN PRN Hypoglycemia Protocol Dextrose 1,000 mls @ 100 mls/hr 04/05/24 20:34 Dextrose 5% 1,000 Ml IVPB PRN PRN Hypoglycemia Protocol Dextrose 1,000 mls @ 50 mls/hr 04/13/24 11:49 Dextrose 10% IV CONT .Q20H PRN if PN is interrupted Multivitamins 1.25 ml/ 1,002.5 mls @ 40 mls/hr 04/13/24 13:00 04/14/24 12:39 Multivitamins 1.25 ml/ Amino IV CONT 40 mls/hr Acids/Electrolytes/Dextrose .Q24H [facility]ANIELLE Administration Protocol Fat Emulsion Intravenous 250 mls @ 20.833 mls/hr 04/13/24 13:00 04/14/24 12:39 Lipids 20% IVPB 20.83 mls/hr DAILY@1300 [facility] Administration Insulin Aspart 2 - 5 units 04/13/24 12:06 04/15/24 05:55 Insulin Aspart (*Bkc) 100 Units/Ml SUB-Q 3 units Q6H [facility] Administration Protocol Levothyroxine Sodium 75 mcg 04/06/24 06:30 04/15/24 05:28 Levothyroxine Sodium 75 Mcg Tablet PO 75 mcg DAILY@0630 [facility] Administration Magnesium Hydroxide 30 ml 04/05/24 20:58 Magnesium Hydroxide Susp 30 Ml Udc PO DAILY PRN Constipation Memantine 5 mg 04/05/24 21:15 04/14/24 17:50 Memantine 5 Mg Tablet PO 5 mg BID [facility] Administration Nystatin 5 ml 04/07/24 13:00 04/14/24 21:21 Nystatin 100,000 Units/Ml Susp 5 Ml Oral.Susp PO 5 ml QID [facility] Administration Ondansetron HCl 4 mg 04/05/24 20:58 Ondansetron Inj 4 Mg/2 Ml Vial IV PUSH Q6H PRN Nausea And Vomiting Senna/Docusate Sodium 1 tab 04/05/24 20:56 Senna/Docusate Sodium Tablet PO DAILY PRN constipation Sodium Chloride 20 ml 04/06/24 13:19 04/15/24 05:28 Central Line Flush IV PUSH 20 ml PRN PRN Administration after blood draws Sodium Chloride 10 ml 04/06/24 13:19 Central Line Flush IV PUSH PRN PRN with TPN bag changes Sodium Chloride 10 ml 04/06/24 14:00 04/15/24 05:29 Central Line Flush IV PUSH 10 ml Q8HR [facility] Administration Tamsulosin HCl 0.4 mg 04/12/24 14:25 04/14/24 09:00 Tamsulosin Hcl 0.4 Mg Capsule PO Not Given QAM [facility] Radiology Results: ITS Impressions Brain MRI 04/06/24 10:25 IMPRESSION: 1. Moderate nonspecific cerebral white matter disease, which likely represents chronic small vessel ischemic disease, mildly worsened from 03/21/22. Head CT 04/12/24 12:34 IMPRESSION: 1. No acute intracranial process. 2. Stable appearance of age-related changes including moderate diffuse on loss and mild scattered white matter hypoattenuation consistent with chronic small vessel ischemic disease. Labs Labs: Laboratory Results - last 24 hr 04/14/24 04/14/24 04/14/24 05:31 12:39 17:58 Sodium Potassium Chloride Carbon Dioxide Anion Gap BUN Creatinine Estim Creat Clear Calc Estimated GFR Glucose POC Capillary Glucose 289 H 280 H Calcium Phosphorus Triglycerides 64 04/15/24 04/15/24 04/15/24 00:03 05:49 05:53 Sodium 123 L Potassium 4.5 Chloride 90 L Carbon Dioxide 27 Anion Gap 6 BUN 21 H Creatinine 0.64 L Estim Creat Clear Calc 62 Estimated GFR > 60 Glucose 272 H POC Capillary Glucose 298 H 284 H Calcium 8.3 L Phosphorus 3.7 Triglycerides Quality VTE Prophylaxis VTE prophylaxis: mechanical ordered Hospitalist MIPS Advance Care Plan I have confirmed that the patient's Advanced Care Plan is present, code status is documented, or surrogate decision maker is listed in patient medical record.: Yes Medication Reconciliation I have utilized all available resources to obtain, update and review the patients current medications (includes all prescriptions, OTC, herbals, cannabis, and nutritional supplements).: Yes
[2024-04-15] MEDS: INSULIN GLARGINE (*BKC) 100 UNITS/ML 6 UNITS SUB-Q (08:55)
[2024-04-15 09:00] LABS: Glucose Point of Care 245 mg/dl (65-105)
[2024-04-15 12:15] LABS: Glucose Point of Care 284 mg/dl (65-105)
[2024-04-15] MEDS: FAT EMULSIONS IV 20% 250 ML 20.83 ML IVPB (13:02)
[2024-04-15] MEDS: AMINO ACIDS 5%/D15W/E-LYTES/CA 1,000 ML with MULTIVITAMINS-12 INJ VIAL 1 1.25 ML, MULTI... 40 ML IV CONT (13:02)
[2024-04-15] MEDS: SODIUM CHLORIDE 0.9% IV 1,000 ML 30 ML IV CONT (13:36)
[2024-04-15 13:56] VITALS: BP 120/64; PULSE 100; RESP 20; O2SAT 99
[2024-04-15] MEDS: BISACODYL 10 MG SUPPOSITORY RECTAL (15:34)
[2024-04-15 17:48] LABS: Glucose Point of Care 242 mg/dl (65-105)
[2024-04-15 17:53] LABS: Sodium Urine Random 78 meq/L
[2024-04-15] MEDS: NYSTATIN 100,000 UNITS/ML SUSP 5 ML ORAL.SUSP PO ×2 (18:06→21:31)
[2024-04-15] MEDS: MEMANTINE 5 MG TABLET PO (18:06)
[2024-04-15 21:50] VITALS: BP 138/72; PULSE 109; RESP 18; TEMP 37; O2SAT 100
[2024-04-16 00:12] LABS: Glucose Point of Care 345 mg/dl (65-105)
[2024-04-16] MEDS: INSULIN ASPART (*BKC) 100 UNITS/ML SUB-Q ×3 (00:32→12:49)
[2024-04-16] MEDS: CENTRAL LINE FLUSH 20 ML IV PUSH (05:21)
[2024-04-16] MEDS: CENTRAL LINE FLUSH 10 ML IV PUSH ×2 (05:23→13:01)
[2024-04-16] MEDS: LEVOTHYROXINE SODIUM 75 MCG TABLET PO (05:24)
[2024-04-16 05:52] LABS: Glucose Point of Care 272 mg/dl (65-105)
[2024-04-16 06:00] VITALS: BP 127/44; PULSE 103; RESP 18; TEMP 37; O2SAT 96
[2024-04-16 06:00] LABS: Anion Gap 8 mmol/L (4-12); Blood Urea Nitrogen 21 mg/dL (9-20); Calcium 8.2 mg/dL (8.4-10.2); Carbon Dioxide 25 mmol/L (22-30); Chloride 91 mmol/L (98-107); Estimated CRCL calculation 59 ml/min; Estimated Glomerular Filt Rate > 60; Glucose 272 mg/dL (65-110); Phosphorus 3.8 mg/dL (2.5-4.5); Potassium 4.3 mmol/L (3.4-5.0); Sodium 124 mmol/L (137-145)
[2024-04-16] MEDS: ASPIRIN 81 MG ENTERIC TABLET PO (09:34)
[2024-04-16] MEDS: TAMSULOSIN HCL 0.4 MG CAPSULE PO (09:34)
[2024-04-16] MEDS: ATORVASTATIN 40 MG TABLET PO (09:34)
[2024-04-16] MEDS: MEMANTINE 5 MG TABLET PO (09:34)
[2024-04-16] MEDS: NYSTATIN 100,000 UNITS/ML SUSP 5 ML ORAL.SUSP PO ×3 (09:34→22:18)
[2024-04-16] MEDS: INSULIN GLARGINE (*BKC) 100 UNITS/ML 6 UNITS SUB-Q (09:35)
[2024-04-16 12:17] LABS: Triglycerides 49 mg/dL (<150)
[2024-04-16] MEDS: FAT EMULSIONS IV 20% 250 ML 20.83 ML IVPB (12:48)
[2024-04-16] MEDS: AMINO ACIDS 5%/D15W/E-LYTES/CA 1,000 ML with MULTIVITAMINS-12 INJ VIAL 1 1.25 ML, MULTI... 40 ML IV CONT (12:48)
[2024-04-16 12:50] LABS: Glucose Point of Care 323 mg/dl (65-105)
[2024-04-16] MEDS: SODIUM CHLORIDE 0.9% IV 1,000 ML 30 ML IV CONT (12:50)
--- NOTE | 2024-04-16 12:50 | P.PNIM_ITS ---
Progress Note: A&P Assessment and Plan (1) Acute encephalopathy: Code(s): G93.40 - Encephalopathy, unspecified Status: Acute Assessment and Plan: 04/15/24 Patient answers simple questions only. - Needs plan of care discussion. No acute neurological findings. Oral intake poor. - TPN ongoing. Consider peg, placement if no further acute findings. - Encephalopathy may be worsened by significant hyponatremia. - Family meeting tomorrow to discuss possible hospice referral. Patient with potential drug-induced encephalopathy secondary to Remeron or cefepime * patient had been switched to Zosyn have 3 more doses to complete therapy * neuro checks * currently NPO pending swallow evaluation * PICC line placed * will start TPN for nutrition * may need PEG tube placement if no improvement * Patient does have a history of Dementia * Possible EEG and spinal tap to evaluate for encephalitis per neurology 04/07/2024: * Neuro improving * transition to oral feeding per swallow evaluation of liquids and minced and moist but will be a feeder for now * Working with PT 04/08 * Alert and oriented x1, sleepy today * Tolerating oral feeds * Continue PT and OT * Case coordination following for rehab needs 04/09 * no change, back to baseline 04/12: * Lethargic and daughter report RT sided worsening weakness * CT head no acute findings 04/13 no intake. will need to restart TPN and have plan of care discussion. either peg tube or comfort/hospice. 04/16 * Discussed his last few months with family at bedside, including his decline and poor prognosis for return to baseline. * They wish to meet with hospice and would like to consider taking him home on hospice. 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 He answers simple questions then requests to be left alone. patient was having episodes of altered mental status and became obtunded upon arrival to [facility] initially it appeared patient was suffering from drug-induced encephalopathy from the cefepime and Remeron which both were stopped. * CT Head 03/27/2024 at [facility] showed no acute intracranial process * CT Head 04/05/2024: with old lacunar infarct which likely a subacute occurred between 03/27-04/05 * Neurology consulted * currently on ASA * Started on Plavix and statin once able to have oral pills or peg tube placed * Echo with bubble study pending * NPO * swallow evaluation * MRI no acute findings Findings of old infarct on previous CT head this was likely Metabolic encephalopathy will stop plavix and just continue ASA 04/08: * No changes 04/16 * no changes in mental status, responds intermittently, complains of pain in legs, intermittently restless in bed (3) Physical deconditioning: Code(s): R53.81 - Other malaise Status: Acute Assessment and Plan: 04/15/24 - PT/OT and likely rehab. * Will need PT/OT re-evaluation and likely rehab when stable 04/08 * Continue PT and OT 04/09 * continue PT and OT * Case management notified of patient's baseline level of functioning * Plan is for patient to go back home with family will need plan of care discussed with family as pt is not eating again 04/16 family aware that he is unlikely to return to baseline and is currently unable to participate in therapy (4) Protein calorie malnutrition: Code(s): E46 - Unspecified protein-calorie malnutrition Status: Acute Assessment and Plan: 04/15/24 - TPN is ongoing. * NPO * Swallow evaluation * TPN started * may need peg tube if no improvement * consulted dietitian * monitor and replenish electrolytes 04/08 * enocurage po intake 04/09 * No change 04/16 Taking only sips of water while on TPN (5) Dementia: Code(s): F03.90 - Unspecified dementia, unspecified severity, without behavioral disturbance, psychotic disturbance, mood disturbance, and anxiety Status: Acute Assessment and Plan: 04/08 * Continue Namenda 04/01 dx about 11 years ago, now with superimposed stroke and metabolic encephalopathy related to infection, hyponatremia (6) Urinary retention: Code(s): R33.9 - Retention of urine, unspecified Status: Acute Assessment and Plan: 01/13/25 - Consider voiding trial tomorrow if not planning on hospice care. May consider keeping for comfort measures if this is disposition plan. * Damon catheter replaced for urinary retention * Attempt bladder trial * bladder scan if no void after 6 hours and/or post void bladder scan * Flomax daily * Continue damon (7) Diabetes mellitus: Code(s): E11.9 - Type 2 diabetes mellitus without complications Status: Acute Assessment and Plan: 04/16 FBS 172, increase Lantus while on TPN, continue SSI (8) Hyponatremia: Code(s): E87.1 - Hypo-osmolality and hyponatremia Status: Acute Assessment and Plan: 01/13/25 Worsening hyponatremia, likely secondary in part to hyperglycemia. Also noted poor oral intake, TPN formulation with <400mg sodium. I have discussed with pharmacy and additionally would benefit from dietitian evaluation regarding formulation. - NaCl at 30ml/hr will provide ~7gm sodium/24h. Repeat labs in the am, avoid overcorrection or too rapid correction. - Dietitian consult. 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 Patient unable to provide history. Was living with his daughter. Having increased difficulty with ambulation with Rollator walker. Incontinence of urine mainly in bed. No incontinence of stool. Appetite was good. Speech was becoming more slurred. Was hospitalized at [facility] for urinary tract infection. With transfer to [facility] bed he was noted to be more confused. CT showed lacunar infarct that was new from previously but without signs of acute infarct. He was admitted [facility] where he has not been able to eat and drink. Antibiotics were changed because of possibility of antibiotic inducing encephalopathy. He is receiving TPN. His hyponatremia is not improved. He is oriented to person and able to communicate that he has pain in his legs. He is intermittently restless in bed. Family is interested in hospice care and would like to consider taking him home on hospice. Exam Narrative: HEENT: sclerae nonicteric, pharyngeal mucosa pink and intact NECK: No JVD CHEST: Coarse BS. Normal effort. HEART: NL S1/S2, regular, no murmur ABDOMEN: BS+, soft, nontender, no mass, no bruits EXTREMITIES: No cyanosis, edema, or clubbing NEUROLOGIC: CN intact and symmetric to inspection. MUSCULOSKELETAL: No gross deformity to visual inspection. PSYCH: Alert. Oriented to person only. Objective Data Vital Signs Vital Signs: Vital Signs - 24 hr 04/15/24 13:56 04/15/24 20:00 04/15/24 21:50 Temperature 98.6 F Pulse Rate 100 109 H Respiratory Rate 20 18 Blood Pressure 120/64 138/72 Pulse Oximetry 99 100 Oxygen Delivery Room Air 04/16/24 06:00 04/16/24 09:20 Temperature 98.6 F Pulse Rate 103 H Respiratory Rate 18 Blood Pressure 127/44 L Pulse Oximetry 96 Oxygen Delivery Room Air Intake/Output Intake/Output: Intake & Output 04/13/24 04/14/24 04/15/24 04/16/24 23:59 23:59 23:59 23:59 Intake Total 340 2118 1651.5 370 Output Total 1675 1150 1800 1250 Balance -1335 968 -148.5 -880 Meds/Results Medications: Active Medications Generic Name Dose Route Start Last Admin Trade Name Freq PRN Reason Stop Dose Admin Acetaminophen 650 mg 04/10/24 19:37 04/10/24 20:03 Acetaminophen 325 Mg Tablet PO 650 mg Q4H PRN Administration Pain Rated 1-3 Al Hydrox/Mg Hydrox/Simethicone 30 ml 04/05/24 20:58 Mag Hydrox/Al Hydrox/Simeth 30 Ml Udc PO QID PRN Dyspepsia Aspirin 81 mg 04/06/24 09:00 04/16/24 09:34 Aspirin 81 Mg Enteric Tablet PO 81 mg DAILY DANIELLE Administration Atorvastatin Calcium 40 mg 04/06/24 09:00 04/16/24 09:34 Atorvastatin 40 Mg Tablet PO 40 mg DAILY DANIELLE Administration Bisacodyl 10 mg 04/15/24 10:29 04/15/24 15:34 Bisacodyl 10 Mg Suppository RECTAL 10 mg QAM PRN Administration Constipation Dextrose 12.5 gm 04/05/24 20:34 Dextrose 50% 25 Gm/50 Ml Syringe IV PUSH PRN PRN Hypoglycemia Protocol Glucagon 1 mg 04/05/24 20:34 Glucagon For Inj 1 Mg Vial IM PRN PRN Hypoglycemia Protocol Glucose 15 gm 04/05/24 20:34 Glucose Oral Gel 15 Gm Of Glucse In 37.5 Gm Tube PO PRN PRN Hypoglycemia Protocol Dextrose 1,000 mls @ 100 mls/hr 04/05/24 20:34 Dextrose 5% 1,000 Ml IVPB PRN PRN Hypoglycemia Protocol Dextrose 1,000 mls @ 50 mls/hr 04/13/24 11:49 Dextrose 10% IV CONT .Q20H PRN if PN is interrupted Multivitamins 1.25 ml/ 1,002.5 mls @ 40 mls/hr 04/13/24 13:00 04/15/24 13:02 Multivitamins 1.25 ml/ Amino IV CONT 40 mls/hr Acids/Electrolytes/Dextrose .Q24H DANIELLE Administration Protocol Fat Emulsion Intravenous 250 mls @ 20.833 mls/hr 04/13/24 13:00 04/16/24 01:03 Lipids 20% IVPB Infused DAILY@1300 DANIELLE Infusion Sodium Chloride 1,000 mls @ 30 mls/hr 04/15/24 11:20 04/15/24 13:36 Normal Saline Iv IV CONT 30 mls/hr .Q24H DANIELLE Administration Insulin Aspart 2 - 5 units 04/13/24 12:06 04/16/24 05:22 Insulin Aspart (*Bkc) 100 Units/Ml SUB-Q 3 units Q6H DANIELLE Administration Protocol Insulin Glargine 6 units 04/15/24 09:00 04/16/24 09:35 Insulin Glargine (*Bkc) 100 Units/Ml SUB-Q 6 units DAILY DANIELLE Administration Levothyroxine Sodium 75 mcg 04/06/24 06:30 04/16/24 05:24 Levothyroxine Sodium 75 Mcg Tablet PO 75 mcg DAILY@0630 DANIELLE Administration Magnesium Hydroxide 30 ml 04/05/24 20:58 Magnesium Hydroxide Susp 30 Ml Udc PO DAILY PRN Constipation Memantine 5 mg 04/05/24 21:15 04/16/24 09:34 Memantine 5 Mg Tablet PO 5 mg BID DANIELLE Administration Nystatin 5 ml 04/07/24 13:00 04/16/24 09:34 Nystatin 100,000 Units/Ml Susp 5 Ml Oral.Susp PO 5 ml QID DANIELLE Administration Ondansetron HCl 4 mg 04/05/24 20:58 Ondansetron Inj 4 Mg/2 Ml Vial IV PUSH Q6H PRN Nausea And Vomiting Senna/Docusate Sodium 1 tab 04/05/24 20:56 Senna/Docusate Sodium Tablet PO DAILY PRN constipation Sodium Chloride 20 ml 04/06/24 13:19 04/16/24 05:21 Central Line Flush IV PUSH 20 ml PRN PRN Administration after blood draws Sodium Chloride 10 ml 04/06/24 13:19 Central Line Flush IV PUSH PRN PRN with TPN bag changes Sodium Chloride 10 ml 04/06/24 14:00 04/16/24 05:23 Central Line Flush IV PUSH 10 ml Q8HR DANIELLE Administration Tamsulosin HCl 0.4 mg 04/12/24 14:25 04/16/24 09:34 Tamsulosin Hcl 0.4 Mg Capsule PO 0.4 mg QAM DANIELLE Administration Radiology Results: ITS Impressions Brain MRI 04/06/24 10:25 IMPRESSION: 1. Moderate nonspecific cerebral white matter disease, which likely represents chronic small vessel ischemic disease, mildly worsened from 03/21/22. Head CT 04/12/24 12:34 IMPRESSION: 1. No acute intracranial process. 2. Stable appearance of age-related changes including moderate diffuse on loss and mild scattered white matter hypoattenuation consistent with chronic small vessel ischemic disease. Labs Labs: Laboratory Results - last 24 hr 04/15/24 04/15/24 04/16/24 17:36 17:38 00:04 Sodium Potassium Chloride Carbon Dioxide Anion Gap BUN Creatinine Estim Creat Clear Calc Estimated GFR Glucose POC Capillary Glucose 242 H 345 H Calcium Phosphorus Triglycerides Ur Random Sodium 78 04/16/24 04/16/24 04/16/24 05:19 05:20 05:27 Sodium 124 L Potassium 4.3 Chloride 91 L Carbon Dioxide 25 Anion Gap 8 BUN 21 H Creatinine 0.67 L Estim Creat Clear Calc 59 Estimated GFR > 60 Glucose 272 H POC Capillary Glucose 272 H Calcium 8.2 L Phosphorus 3.8 Triglycerides 49 Ur Random Sodium 04/16/24 12:45 Sodium Potassium Chloride Carbon Dioxide Anion Gap BUN Creatinine Estim Creat Clear Calc Estimated GFR Glucose POC Capillary Glucose 323 H Calcium Phosphorus Triglycerides Ur Random Sodium Hospitalist MIPS Advance Care Plan I have confirmed that the patient's Advanced Care Plan is present, code status is documented, or surrogate decision maker is listed in patient medical record.: Yes
[2024-04-16 14:36] VITALS: BP 108/66; PULSE 100; RESP 16; TEMP 36.6; O2SAT 98
--- NOTE | 2024-04-16 15:21 | PC.NURSE ---
Amy Recio with [facility] met with patient and family members at bedside. She left her phone number and said for any staff to call her with any additional questions or family needs regarding hospice care. [phone]
--- NOTE | 2024-04-16 16:10 | PC.NURSE ---
RN spoke with family at nurses station. They want [facility] to come evaluate the patient to determine if he would qualify for inpatient hospice or being able to go home on hospice. RN spoke with hospitalist Moi in regards to family wishes. Dr. Prater stated he would call [facility] nurse Linda as she is controls technician and she will come evaluate patient.
[2024-04-16 17:30] LABS: Glucose Point of Care 284 mg/dl (65-105)
[2024-04-16 22:42] VITALS: BP 125/62; PULSE 103; RESP 20; TEMP 36.6; O2SAT 98
[2024-04-17] MEDS: INSULIN ASPART (*BKC) 100 UNITS/ML SUB-Q ×2 (01:10→06:22)
[2024-04-17 01:19] LABS: Glucose Point of Care 316 mg/dl (65-105)
[2024-04-17 06:00] VITALS: BP 122/62; PULSE 100; RESP 20; TEMP 36.4; O2SAT 99
[2024-04-17 06:20] LABS: Basophils Absolute Auto 0.1 K/mm3 (0.0-0.1); Basophils Percent Auto 0.8 % (0.2-1.2); Eosinophils Absolute Auto 0.8 K/mm3 (0-0.3); Eosinophils Percent Auto 8.6 % (0-4.4); Hematocrit 27.1 % (42.0-52.0); Hemoglobin 8.9 g/dL (14.0-18.0); Immature Granulocyte Absolute 0.03 K/mm3 (0.00-0.031); Immature Granulocyte Percent A 0.3 % (0-0.5); Lymphocytes Absolute Auto 1.72 K/mm3 (0.9-3.2); Lymphocytes Percent Auto 17.8 % (18.3-44.2); Mean Corpuscular HGB Conc 32.8 g/dl (32-36); Mean Corpuscular Hemoglobin 30.3 pg (26-34); Mean Corpuscular Volume 92.2 fl (80-100); Mean Platelet Volume 10.3 fl (7.4-10.4); Monocytes Absolute Auto 0.9 K/mm3 (0.1-0.6); Monocytes Percent Auto 8.9 % (2.6-8.5); Neutrophils Absolute Auto 6.1 K/mm3 (1.3-6.7); Neutrophils Percent Auto 63.6 % (45.5-73.1); Platelet Count Result 400 k/mm3 (150-375); Red Blood Count 2.94 M/mm3 (4.6-6.20); Red Cell Distribution Width 13.9 % (11.5-14.5); White Blood Count 9.6 K/mm3 (4.5-10.0)
[2024-04-17] MEDS: CENTRAL LINE FLUSH 10 ML IV PUSH ×3 (06:23→20:44)
[2024-04-17 06:27] LABS: Glucose Point of Care 250 mg/dl (65-105)
[2024-04-17 06:28] LABS: Alanine Aminotransferase 53 U/L (6-50); Alkaline Phosphatase 71 U/L (38-126); Anion Gap 5 mmol/L (4-12); Aspartate Amino Transferase 69 U/L (17-59); Bilirubin,Total 0.6 mg/dL (0.2-1.3); Blood Urea Nitrogen 21 mg/dL (9-20); Calcium 8.7 mg/dL (8.4-10.2); Carbon Dioxide 27 mmol/L (22-30); Chloride 93 mmol/L (98-107); Estimated CRCL calculation 62 ml/min; Estimated Glomerular Filt Rate > 60; Glucose 242 mg/dL (65-110); Magnesium 1.7 mg/dL (1.6-2.3); Phosphorus 3.6 mg/dL (2.5-4.5); Potassium 4.4 mmol/L (3.4-5.0); Sodium 125 mmol/L (137-145)
[2024-04-17 06:35] LABS: Transferrin 136 mg/dL (206-381)
[2024-04-17 06:41] LABS: INR 1.2; Prothrombin Time 15.8 Seconds (11.1-14.7)
[2024-04-17 06:42] LABS: Partial Thromboplastin Time 42.7 Seconds (22.3-36.8)
--- NOTE | 2024-04-17 08:06 | P.PNIM_ITS ---
Progress Note: A&P Assessment and Plan (1) Acute encephalopathy: Code(s): G93.40 - Encephalopathy, unspecified Status: Acute Assessment and Plan: 04/15/24 Patient answers simple questions only. - Needs plan of care discussion. No acute neurological findings. Oral intake poor. - TPN ongoing. Consider peg, placement if no further acute findings. - Encephalopathy may be worsened by significant hyponatremia. - Family meeting tomorrow to discuss possible hospice referral. Patient with potential drug-induced encephalopathy secondary to Remeron or cefepime * patient had been switched to Zosyn have 3 more doses to complete therapy * neuro checks * currently NPO pending swallow evaluation * PICC line placed * will start TPN for nutrition * may need PEG tube placement if no improvement * Patient does have a history of Dementia * Possible EEG and spinal tap to evaluate for encephalitis per neurology 04/07/2024: * Neuro improving * transition to oral feeding per swallow evaluation of liquids and minced and moist but will be a feeder for now * Working with PT 04/08 * Alert and oriented x1, sleepy today * Tolerating oral feeds * Continue PT and OT * Case coordination following for rehab needs 04/09 * no change, back to baseline 04/12: * Lethargic and daughter report RT sided worsening weakness * CT head no acute findings 04/13 no intake. will need to restart TPN and have plan of care discussion. either peg tube or comfort/hospice. 04/16 * Discussed his last few months with family at bedside, including his decline and poor prognosis for return to baseline. * They wish to meet with hospice and would like to consider taking him home on hospice. 04/17: Patient still confused, not oriented x3, patient is afebrile blood pressure stable, no O2 desaturation on room air, labs reviewed, hyponatremia sodium 125, close to baseline glucose is not well controlled, elevated BUN creatinine ratio 21/0.66 CBC shows normal white blood cell, hemoglobin 8.9 on the baseline. Will not pursue further workup because patient will be transferred to hospice per family request, will increase normal saline from 30 to 100 mL/hour had long discussion with patient daughter regarding patient's current condition, and poor prognosis due to profound dementia and comorbidities and acute illness. 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 He answers simple questions then requests to be left alone. patient was having episodes of altered mental status and became obtunded upon arrival to [facility] initially it appeared patient was suffering from drug-induced encephalopathy from the cefepime and Remeron which both were stopped. * CT Head 03/27/2024 at [place] showed no acute intracranial process * CT Head 04/05/2024: with old lacunar infarct which likely a subacute occurred between 03/27-04/05 * Neurology consulted * currently on ASA * Started on Plavix and statin once able to have oral pills or peg tube placed * Echo with bubble study pending * NPO * swallow evaluation * MRI no acute findings Findings of old infarct on previous CT head this was likely Metabolic encephalopathy will stop plavix and just continue ASA 04/08: * No changes 04/16 * no changes in mental status, responds intermittently, complains of pain in legs, intermittently restless in bed (3) Physical deconditioning: Code(s): R53.81 - Other malaise Status: Acute Assessment and Plan: 04/15/24 - PT/OT and likely rehab. * Will need PT/OT re-evaluation and likely rehab when stable 04/08 * Continue PT and OT 04/09 * continue PT and OT * Case management notified of patient's baseline level of functioning * Plan is for patient to go back home with family will need plan of care discussed with family as pt is not eating again 04/16 family aware that he is unlikely to return to baseline and is currently unable to participate in therapy (4) Protein calorie malnutrition: Code(s): E46 - Unspecified protein-calorie malnutrition Status: Acute Assessment and Plan: 04/15/24 - TPN is ongoing. * NPO * Swallow evaluation * TPN started * may need peg tube if no improvement * consulted dietitian * monitor and replenish electrolytes 04/08 * enocurage po intake 04/09 * No change 04/16 Taking only sips of water while on TPN (5) Dementia: Code(s): F03.90 - Unspecified dementia, unspecified severity, without behavioral disturbance, psychotic disturbance, mood disturbance, and anxiety Status: Acute Assessment and Plan: 04/08 * Continue Namenda 04/01 dx about 11 years ago, now with superimposed stroke and metabolic encep halopathy related to infection, hyponatremia (6) Urinary retention: Code(s): R33.9 - Retention of urine, unspecified Status: Acute Assessment and Plan: 01/13/25 - Consider voiding trial tomorrow if not planning on hospice care. May consider keeping for comfort measures if this is disposition plan. * Damno catheter replaced for urinary retention * Attempt bladder trial * bladder scan if no void after 6 hours and/or post void bladder scan * Flomax daily * Continue damon (7) Diabetes mellitus: Code(s): E11.9 - Type 2 diabetes mellitus without complications Status: Acute Assessment and Plan: 04/16 FBS 172, increase Lantus while on TPN, continue SSI (8) Hyponatremia: Code(s): E87.1 - Hypo-osmolality and hyponatremia Status: Acute Assessment and Plan: 01/13/25 Worsening hyponatremia, likely secondary in part to hyperglycemia. Also noted poor oral intake, TPN formulation with <400mg sodium. I have discussed with pharmacy and additionally would benefit from dietitian evaluation regarding formulation. - NaCl at 30ml/hr will provide ~7gm sodium/24h. Repeat labs in the am, avoid overcorrection or too rapid correction. - Dietitian consult. 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 Patient was unresponsive to verbal command, on we to answer question. Patient does not have obvious distress, labs reviewed, no significant change from yesterday regarding CBC and chemistry. He is receiving TPN. Patient is afebrile, blood pressure stable, no O2 desaturation on room air Exam Narrative: GENERAL: Ill-appearing in no acute distress. Well-nourished. - EYES: EOMI. Anicteric. - HENT: Moist mucous membranes. - LUNGS: Clear to auscultation bilateral ly, no wheezing, rhonchi, or rales. - CARDIOVASCULAR: Regular rate and rhyth m. No murmur. No JVD. - ABDOMEN: Soft, non-tender and non-dist ended. No palpable masses. - EXTREMITIES: No edema. Peripheral puls es 2+. Non-tender. - NEUROLOGIC: Moving all extremities - PSYCHIATRIC: Confused and not oriente d x 3. Appropriate mood and affect. - SKIN: No rashes or lesions. Warm. - LYMPH: No cervical lymphadenopathy. Objective Data Vital Signs Vital Signs: Vital Signs - 24 hr 04/16/24 09:20 04/16/24 14:36 04/16/24 20:00 Temperature 97.9 F Pulse Rate 100 Respiratory Rate 16 Blood Pressure 108/66 Pulse Oximetry 98 Oxygen Delivery Room Air Room Air 04/16/24 22:42 Temperature 97.8 F Pulse Rate 103 H Respiratory Rate 20 Blood Pressure 125/62 Pulse Oximetry 98 Oxygen Delivery Intake/Output Intake/Output: Intake & Output 04/14/24 04/15/24 04/16/24 04/17/24 23:59 23:59 23:59 23:59 Intake Total 2118 1651.5 2037.7 Output Total 1150 1800 1600 Balance 968 -148.5 437.7 Meds/Results Medications: Active Medications Generic Name Dose Route Start Last Admin Trade Name Freq PRN Reason Stop Dose Admin Acetaminophen 650 mg 04/10/24 19:37 04/10/24 20:03 Acetaminophen 325 Mg Tablet PO 650 mg Q4H PRN Administration Pain Rated 1-3 Al Hydrox/Mg Hydrox/Simethicone 30 ml 04/05/24 20:58 Mag Hydrox/Al Hydrox/Simeth 30 Ml Udc PO QID PRN Dyspepsia Aspirin 81 mg 04/06/24 09:00 04/16/24 09:34 Aspirin 81 Mg Enteric Tablet PO 81 mg DAILY DANIELLE Administration Atorvastatin Calcium 40 mg 04/06/24 09:00 04/16/24 09:34 Atorvastatin 40 Mg Tablet PO 40 mg DAILY DANIELLE Administration Bisacodyl 10 mg 04/15/24 10:29 04/15/24 15:34 Bisacodyl 10 Mg Suppository RECTAL 10 mg QAM PRN Administration Constipation Dextrose 12.5 gm 04/05/24 20:34 Dextrose 50% 25 Gm/50 Ml Syringe IV PUSH PRN PRN Hypoglycemia Protocol Glucagon 1 mg 04/05/24 20:34 Glucagon For Inj 1 Mg Vial IM PRN PRN Hypoglycemia Protocol Glucose 15 gm 04/05/24 20:34 Glucose Oral Gel 15 Gm Of Glucse In 37.5 Gm Tube PO PRN PRN Hypoglycemia Protocol Dextrose 1,000 mls @ 100 mls/hr 04/05/24 20:34 Dextrose 5% 1,000 Ml IVPB PRN PRN Hypoglycemia Protocol Dextrose 1,000 mls @ 50 mls/hr 04/13/24 11:49 Dextrose 10% IV CONT .Q20H PRN if PN is interrupted Multivitamins 1.25 ml/ 1,002.5 mls @ 40 mls/hr 04/13/24 13:00 04/16/24 12:48 Multivitamins 1.25 ml/ Amino IV CONT 40 mls/hr Acids/Electrolytes/Dextrose .Q24H DANIELLE Administration Protocol Fat Emulsion Intravenous 250 mls @ 20.833 mls/hr 04/13/24 13:00 04/16/24 12:48 Lipids 20% IVPB 20.83 mls/hr DAILY@1300 DANIELLE Administration Sodium Chloride 1,000 mls @ 30 mls/hr 04/15/24 11:20 04/16/24 12:50 Normal Saline Iv IV CONT 30 mls/hr .Q24H DANIELLE Administration Insulin Aspart 2 - 5 units 04/13/24 12:06 04/17/24 06:22 Insulin Aspart (*Bkc) 100 Units/Ml SUB-Q 2 units Q6H DANIELLE Administration Protocol Insulin Glargine 10 units 04/17/24 09:00 Insulin Glargine (*Bkc) 100 Units/Ml SUB-Q DAILY DANIELLE Ketorolac Tromethamine 15 mg 04/16/24 13:01 Ketorolac 15 Mg/Ml Vial (*Bkc) IV PUSH Q6H PRN Pain Rated 4-6 Levothyroxine Sodium 75 mcg 04/06/24 06:30 04/17/24 06:23 Levothyroxine Sodium 75 Mcg Tablet PO Not Given DAILY@0630 DANIELLE Magnesium Hydroxide 30 ml 04/05/24 20:58 Magnesium Hydroxide Susp 30 Ml Udc PO DAILY PRN Constipation Memantine 5 mg 04/05/24 21:15 04/16/24 17:44 Memantine 5 Mg Tablet PO Not Given BID [facility] Miscellaneous Information 1 each 04/17/24 00:01 Tpn Needs To Be Renewed Or It Will Automatically Discontinue. XX 05/17/24 00:00 CLARIFY DANIELLE Nystatin 5 ml 04/07/24 13:00 04/16/24 22:18 Nystatin 100,000 Units/Ml Susp 5 Ml Oral.Susp PO 5 ml QID DANIELLE Administration Ondansetron HCl 4 mg 04/05/24 20:58 Ondansetron Inj 4 Mg/2 Ml Vial IV PUSH Q6H PRN Nausea And Vomiting Senna/Docusate Sodium 1 tab 04/05/24 20:56 Senna/Docusate Sodium Tablet PO DAILY PRN constipation Sodium Chloride 20 ml 04/06/24 13:19 04/16/24 05:21 Central Line Flush IV PUSH 20 ml PRN PRN Administration after blood draws Sodium Chloride 10 ml 04/06/24 13:19 Central Line Flush IV PUSH PRN PRN with TPN bag changes Sodium Chloride 10 ml 04/06/24 14:00 04/17/24 06:23 Central Line Flush IV PUSH 10 ml Q8HR DANIELLE Administration Tamsulosin HCl 0.4 mg 04/12/24 14:25 04/16/24 09:34 Tamsulosin Hcl 0.4 Mg Capsule PO 0.4 mg QAM DANIELLE Administration Radiology Results: ITS Impressions Brain MRI 04/06/24 10:25 IMPRESSION: 1. Moderate nonspecific cerebral white matter disease, which likely represents chronic small vessel ischemic disease, mildly worsened from 03/21/22. Head CT 04/12/24 12:34 IMPRESSION: 1. No acute intracranial process. 2. Stable appearance of age-related changes including moderate diffuse on loss and mild scattered white matter hypoattenuation consistent with chronic small vessel ischemic disease. Labs Labs: Laboratory Results - last 24 hr 04/16/24 04/16/24 04/16/24 05:20 12:45 17:21 WBC RBC Hgb Hct MCV MCH MCHC RDW Plt Count MPV Immature Gran % (Auto) Neut % (Auto) Lymph % (Auto) [place] % (Auto) Eos % (Auto) Baso % (Auto) Lymph # (Auto) [place] # (Auto) Eos # (Auto) Baso # (Auto) Abs Immat Gran (auto) Absolute Neuts (auto) Absolute Nucleated RBC Nucleated RBC % PT INR APTT Sodium Potassium Chloride Carbon Dioxide Anion Gap BUN Creatinine Estim Creat Clear Calc Estimated GFR Glucose POC Capillary Glucose 323 H 284 H Calcium Phosphorus Magnesium Transferrin Total Bilirubin AST ALT Alkaline Phosphatase Total Protein Albumin Triglycerides 49 04/17/24 04/17/24 04/17/24 01:06 06:10 06:11 WBC 9.6 RBC 2.94 L Hgb 8.9 L Hct 27.1 L MCV 92.2 MCH 30.3 MCHC 32.8 RDW 13.9 Plt Count 400 H MPV 10.3 Immature Gran % (Auto) 0.3 Neut % (Auto) 63.6 Lymph % (Auto) 17.8 L [place] % (Auto) 8.9 H Eos % (Auto) 8.6 H Baso % (Auto) 0.8 Lymph # (Auto) 1.72 [place] # (Auto) 0.9 H Eos # (Auto) 0.8 H Baso # (Auto) 0.1 Abs Immat Gran (auto) 0.03 Absolute Neuts (auto) 6.1 Absolute Nucleated RBC 0.000 Nucleated RBC % 0.0 PT 15.8 H INR 1.2 APTT 42.7 H Sodium 125 L Potassium 4.4 Chloride 93 L Carbon Dioxide 27 Anion Gap 5 BUN 21 H Creatinine 0.65 L Estim Creat Clear Calc 62 Estimated GFR > 60 Glucose 242 H POC Capillary Glucose 316 H 250 H Calcium 8.7 Phosphorus 3.6 Magnesium 1.7 Transferrin 136 L Total Bilirubin 0.6 AST 69 H ALT 53 H Alkaline Phosphatase 71 Total Protein 6.0 L Albumin 3.0 L Triglycerides
[2024-04-17 11:57] LABS: Glucose Point of Care 262 mg/dl (65-105)
--- NOTE | 2024-04-17 12:08 | PCDIET ---
MD consult: Consulted for hyponatremia with TPN. Pt remains on TPN. TPN is premixed. Electrolytes can be corrected per pharmacyt. Pt running Clinmic 08/03E with lipids @ 40 ml/h, also on Minced & moist l5 diet but not eating much. Per RN, awaiting hospice at which time TPN can be discontinued. No recommendations. Thank you for this consult.
--- NOTE | 2024-04-17 14:48 | PC.NURSE ---
RN spoke with net applications developer and patient's family has decided to take patient home on hospice. RN called hospitalist Moses and informed him of the family's decision. Hospitalist ordered to have all fluids, TPN, lipids, and labs discontinued.
[2024-04-17] MEDS: MEMANTINE 5 MG TABLET PO (16:50)
[2024-04-17] MEDS: ACETAMINOPHEN 325 MG TABLET 650 MG PO (16:50)
[2024-04-17] MEDS: NYSTATIN 100,000 UNITS/ML SUSP 5 ML ORAL.SUSP PO ×2 (16:51→20:43)
[2024-04-17 22:17] VITALS: BP 142/84; PULSE 98; RESP 18; TEMP 36.3; O2SAT 99
[2024-04-18] MEDS: LEVOTHYROXINE SODIUM 75 MCG TABLET PO (05:09)
[2024-04-18 06:00] VITALS: BP 107/55; PULSE 110; RESP 18; TEMP 36.1; O2SAT 96
--- NOTE | 2024-04-18 08:47 | P.PNIM_ITS ---
Progress Note: A&P Assessment and Plan (1) Acute encephalopathy: Code(s): G93.40 - Encephalopathy, unspecified Status: Acute Assessment and Plan: 04/15/24 Patient answers simple questions only. - Needs plan of care discussion. No acute neurological findings. Oral intake poor. - TPN ongoing. Consider peg, placement if no further acute findings. - Encephalopathy may be worsened by significant hyponatremia. - Family meeting tomorrow to discuss possible hospice referral. Patient with potential drug-induced encephalopathy secondary to Remeron or cefepime * patient had been switched to Zosyn have 3 more doses to complete therapy * neuro checks * currently NPO pending swallow evaluation * PICC line placed * will start TPN for nutrition * may need PEG tube placement if no improvement * Patient does have a history of Dementia * Possible EEG and spinal tap to evaluate for encephalitis per neurology 04/07/2024: * Neuro improving * transition to oral feeding per swallow evaluation of liquids and minced and moist but will be a feeder for now * Working with PT 04/08 * Alert and oriented x1, sleepy today * Tolerating oral feeds * Continue PT and OT * Case coordination following for rehab needs 04/09 * no change, back to baseline 04/12: * Lethargic and daughter report RT sided worsening weakness * CT head no acute findings 04/13 no intake. will need to restart TPN and have plan of care discussion. either peg tube or comfort/hospice. 04/16 * Discussed his last few months with family at bedside, including his decline and poor prognosis for return to baseline. * They wish to meet with hospice and would like to consider taking him home on hospice. 04/17: Patient still confused, not oriented x3, patient is afebrile blood pressure stable, no O2 desaturation on room air, labs reviewed, hyponatremia sodium 125, close to baseline glucose is not well controlled, elevated BUN creatinine ratio 21/0.66 CBC shows normal white blood cell, hemoglobin 8.9 on the baseline. Will not pursue further workup because patient will be transferred to hospice per family request, will increase normal saline from 30 to 100 mL/hour had long discussion with patient daughter regarding patient's current condition, and poor prognosis due to profound dementia and comorbidities and acute illness. 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 He answers simple questions then requests to be left alone. patient was having episodes of altered mental status and became obtunded upon arrival to [facility] initially it appeared patient was suffering from drug-induced encephalopathy from the cefepime and Remeron which both were stopped. * CT Head 03/27/2024 at [place] showed no acute intracranial process * CT Head 04/05/2024: with old lacunar infarct which likely a subacute occurred between 03/27-04/05 * Neurology consulted * currently on ASA * Started on Plavix and statin once able to have oral pills or peg tube placed * Echo with bubble study pending * NPO * swallow evaluation * MRI no acute findings Findings of old infarct on previous CT head this was likely Metabolic enc ephalopathy will stop plavix and just continue ASA 04/08: * No changes 04/16 * no changes in mental status, responds intermittently, complains of pain in legs, intermittently restless in bed (3) Physical deconditioning: Code(s): R53.81 - Other malaise Status: Acute Assessment and Plan: 04/15/24 - PT/OT and likely rehab. * Will need PT/OT re-evaluation and likely rehab when stable 04/08 * Continue PT and OT 04/09 * continue PT and OT * Case management notified of patient's baseline level of functioning * Plan is for patient to go back home with family will need plan of care discussed with family as pt is not eating again 04/16 family aware that he is unlikely to return to baseline and is currently unable to participate in therapy (4) Protein calorie malnutrition: Code(s): E46 - Unspecified protein-calorie malnutrition Status: Acute Assessment and Plan: 04/15/24 - TPN is ongoing. * NPO * Swallow evaluation * TPN started * may need peg tube if no improvement * consulted dietitian * monitor and replenish electrolytes 04/08 * enocurage po intake 04/09 * No change 04/16 Taking only sips of water while on TPN (5) Dementia: Code(s): F03.90 - Unspecified dementia, unspecified severity, without behavioral disturbance, psychotic disturbance, mood disturbance, and anxiety Status: Acute Assessment and Plan: 04/08 * Continue Namenda 04/01 dx about 11 years ago, now with superimposed stroke and metabolic encephalopathy related to infection, hyponatremia (6) Urinary retention: Code(s): R33.9 - Retention of urine, unspecified Status: Acute Assessment and Plan: 01/13/25 - Consider voiding trial tomorrow if not planning on hospice care. May consider keeping for comfort measures if this is disposition plan. * Damon catheter replaced for urinary retention * Attempt bladder trial * bladder scan if no void after 6 hours and/or post void bladder scan * Flomax daily * Continue damon (7) Diabetes mellitus: Code(s): E11.9 - Type 2 diabetes mellitus without complications Status: Acute Assessment and Plan: 04/16 FBS 172, increase Lantus while on TPN, continue SSI (8) Hyponatremia: Code(s): E87.1 - Hypo-osmolality and hyponatremia Status: Acute Assessment and Plan: 01/13/25 Worsening hyponatremia, likely secondary in part to hyperglycemia. Also noted poor oral intake, TPN formulation with <400mg sodium. I have discussed with pharmacy and additionally would benefit from dietitian evaluation regarding formulation. - NaCl at 30ml/hr will provide ~7gm sodium/24h. Repeat labs in the am, avoid overcorrection or too rapid correction. - Dietitian consult. 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 Patient was unresponsive to verbal commands, per nurse report patient cannot tolerate diet.. Patient does not have obvious distress, labs reviewed, no significant change from yesterday regarding CBC and chemistry. TPA is withdrawn because of comfort care Patient is afebrile, blood pressure stable on the lower side,, no O2 desaturation on room air Exam Narrative: GENERAL: Ill-appearing in no acute distress. Well-nourished. - EYES: EOMI. Anicteric. - HENT: Dry mucous membrane - LUNGS: Clear to auscultation bilateral ly, no wheezing, rhonchi, or rales. - CARDIOVASCULAR: Regular rate and rhyth m. No murmur. No JVD. - ABDOMEN: Soft, non-tender and non-dist ended. No palpable masses. - EXTREMITIES: No edema. Peripheral puls es 2+. Non-tender. - NEUROLOGIC: Moving all extremities - PSYCHIATRIC: Confused and not oriente d x 3. Appropriate mood and affect. - SKIN: No rashes or lesions. Warm. - LYMPH: No cervical lymphadenopathy. Objective Data Vital Signs Vital Signs: Vital Signs - 24 hr 04/17/24 09:05 04/17/24 20:00 04/17/24 22:17 Temperature 97.3 F L Pulse Rate 98 Respiratory Rate 18 Blood Pressure 142/84 H Pulse Oximetry 99 Oxygen Delivery Room Air Room Air 04/18/24 06:00 Temperature 97.0 F L Pulse Rate 110 H Respiratory Rate 18 Blood Pressure 107/55 L Pulse Oximetry 96 Oxygen Delivery Intake/Output Intake/Output: Intake & Output 04/15/24 04/16/24 04/17/24 04/18/24 23:59 23:59 23:59 23:59 Intake Total 1651.5 2037.7 2320 150 Output Total 1800 1600 1650 1999 Balance -148.5 437.7 670 -1850 Meds/Results Medications: Active Medications Generic Name Dose Route Start Last Admin Trade Name Freq PRN Reason Stop Dose Admin Acetaminophen 650 mg 04/10/24 19:37 04/17/24 16:50 Acetaminophen 325 Mg Tablet PO 650 mg Q4H PRN Administration Pain Rated 1-3 Al Hydrox/Mg Hydrox/Simethicone 30 ml 04/05/24 20:58 Mag Hydrox/Al Hydrox/Simeth 30 Ml Udc PO QID PRN Dyspepsia Aspirin 81 mg 04/06/24 09:00 04/17/24 11:49 Aspirin 81 Mg Enteric Tablet PO Not Given DAILY DANIELLE Atorvastatin Calcium 40 mg 04/06/24 09:00 04/17/24 11:49 Atorvastatin 40 Mg Tablet PO Not Given DAILY DANIELLE Bisacodyl 10 mg 04/15/24 10:29 04/15/24 15:34 Bisacodyl 10 Mg Suppository RECTAL 10 mg QAM PRN Administration Constipation Dextrose 12.5 gm 04/05/24 20:34 Dextrose 50% 25 Gm/50 Ml Syringe IV PUSH PRN PRN Hypoglycemia Protocol Glucagon 1 mg 04/05/24 20:34 Glucagon For Inj 1 Mg Vial IM PRN PRN Hypoglycemia Protocol Glucose 15 gm 04/05/24 20:34 Glucose Oral Gel 15 Gm Of Glucse In 37.5 Gm Tube PO PRN PRN Hypoglycemia Protocol Dextrose 1,000 mls @ 100 mls/hr 04/05/24 20:34 Dextrose 5% 1,000 Ml IVPB PRN PRN Hypoglycemia Protocol Dextrose 1,000 mls @ 50 mls/hr 04/13/24 11:49 Dextrose 10% IV CONT .Q20H PRN if PN is interrupted Insulin Glargine 10 units 04/17/24 09:00 04/17/24 11:50 Insulin Glargine (*Bkc) 100 Units/Ml SUB-Q Not Given DAILY [facility] Ketorolac Tromethamine 15 mg 04/16/24 13:01 Ketorolac 15 Mg/Ml Vial (*Bkc) IV PUSH Q6H PRN Pain Rated 4-6 Levothyroxine Sodium 75 mcg 04/06/24 06:30 04/18/24 05:09 Levothyroxine Sodium 75 Mcg Tablet PO 75 mcg DAILY@0630 DANIELLE Administration Magnesium Hydroxide 30 ml 04/05/24 20:58 Magnesium Hydroxide Susp 30 Ml Udc PO DAILY PRN Constipation Memantine 5 mg 04/05/24 21:15 04/17/24 16:50 Memantine 5 Mg Tablet PO 5 mg BID DANIELLE Administration Nystatin 5 ml 04/07/24 13:00 04/17/24 20:43 Nystatin 100,000 Units/Ml Susp 5 Ml Oral.Susp PO 5 ml QID DANIELLE Administration Ondansetron HCl 4 mg 04/05/24 20:58 Ondansetron Inj 4 Mg/2 Ml Vial IV PUSH Q6H PRN Nausea And Vomiting Senna/Docusate Sodium 1 tab 04/05/24 20:56 Senna/Docusate Sodium Tablet PO DAILY PRN constipation Sodium Chloride 20 ml 04/06/24 13:19 04/16/24 05:21 Central Line Flush IV PUSH 20 ml PRN PRN Administration after blood draws Sodium Chloride 10 ml 04/06/24 13:19 Central Line Flush IV PUSH PRN PRN with TPN bag changes Sodium Chloride 10 ml 04/06/24 14:00 04/18/24 07:49 Central Line Flush IV PUSH Not Given Q8HR [facility] Tamsulosin HCl 0.4 mg 04/12/24 14:25 04/17/24 11:50 Tamsulosin Hcl 0.4 Mg Capsule PO Not Given [facility] [place] Rad[facility] Results: ITS Impressions Brain MRI 04/06/24 10:25 IMPRESSION: 1. Moderate nonspecific cerebral white matter disease, which likely represents chronic small vessel ischemic disease, mildly worsened from 03/21/22. Head CT 04/12/24 12:34 IMPRESSION: 1. No acute intracranial process. 2. Stable appearance of age-related changes including moderate diffuse on loss and mild scattered white matter hypoattenuation consistent with chronic small vessel ischemic disease. Labs Labs: Laboratory Results - last 24 hr 04/17/24 11:54 POC Capillary Glucose 262 H
--- NOTE | 2024-04-18 10:31 | P.DS_ITS ---
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 - Other cerebral infarction due to occlusion or stenosis of small artery Status: Acute Assessment and Plan: 04/16 * no changes in mental status, responds intermittently, complains of pain in legs, intermittently restless in bed (3) Physical deconditioning: Code(s): R53.81 - Other malaise Status: Acute Assessment and Plan: carlos aware that he is unlikely to return to baseline and is currently unable to participate in therapy (4) Protein calorie malnutrition: Code(s): E46 - Unspecified protein-calorie malnutrition Status: Acute (5) Dementia: Code(s): F03.90 - Unspecified dementia, unspecified severity, without behavioral disturbance, psychotic disturbance, mood disturbance, and anxiety Status: Acute (6) Urinary retention: Code(s): R33.9 - Retention of urine, unspecified Status: Acute (7) Diabetes mellitus: Code(s): E11.9 - Type 2 diabetes mellitus without complications Status: Acute Assessment and Plan: 04/16 FBS 172, increase Lantus while on TPN, continue SSI (8) Hyponatremia: Code(s): E87.1 - Hypo-osmolality and hyponatremia Status: Acute DS: Summary Hospital Course Hospital Course: Per H&P, This is an 88-year-old male with past medical history significant for dementia, type diabetes mellitus, chronic kidney disease, depression. Patient comes as a transfer from outside facility due to altered mental status and possible stroke workup. Patient is unable to provide any meaningful history which has been obtained upon reviewing medical records. Preliminary workup is significant for CT of the head with lacunar infarct. The following med issues have been addressed during hospitalization 04/15/24 Patient answers simple questions only. - Needs plan of care discussion. No acute neurological findings. Oral intake poor. - TPN ongoing. Consider peg, placement if no further acute findings. - Encephalopathy may be worsened by significant hyponatremia. - Family meeting tomorrow to discuss possible hospice referral. Patient with potential drug-induced encephalopathy secondary to Remeron or cefepime * patient had been switched to Zosyn have 3 more doses to complete therapy * neuro checks * currently NPO pending swallow evaluation * PICC line placed * will start TPN for nutrition * may need PEG tube placement if no improvement * Patient does have a history of Dementia * Possible EEG and spinal tap to evaluate for encephalitis per neurology 04/07/2024: * Neuro improving * transition to oral feeding per swallow evaluation of liquids and minced and moist but will be a feeder for now * Working with PT 04/08 * Alert and oriented x1, sleepy today * Tolerating oral feeds * Continue PT and OT * Case coordination following for rehab needs 04/09 * no change, back to baseline 04/12: * Lethargic and daughter report RT sided worsening weakness * CT head no acute findings 04/13 no intake. will need to restart TPN and have plan of care discussion. either peg tube or comfort/hospice. 04/16 * Discussed his last few months with family at bedside, including his decline and poor prognosis for return to baseline. * They wish to meet with hospice and would like to consider taking him home on hospice. 04/17: Patient still confused, not oriented x3, patient is afebrile blood pressure stable, no O2 desaturation on room air, labs reviewed, hyponatremia sodium 125, close to baseline glucose is not well controlled, elevated BUN creatinine ratio 21/0.66 CBC shows normal white blood cell, hemoglobin 8.9 on the baseline. Will not pursue further workup because patient will be transferre d to hospice per family request, will increase normal saline from 30 to 100 mL/hour had long discussion with patient daughter regarding patient's current condition, and poor prognosis due to profound dementia and comorbidities and acute illness. They pursue hospice care, also discussed the case with managed care nurse Deborah who will arrange hospice care meeting with family 04/18: Per managed care nurse report, hospice care is set up at home, patient will be discharged home with home hospice Time Spent with Patient Time attestation: Total time spent providing and/or coordinating discharge services: Exam Narrative: GENERAL: Ill-appearing in no acute distress. Well-nourished. - EYES: EOMI. Anicteric. - HENT: Dry mucous membrane - LUNGS: Clear to auscultation bilateral ly, no wheezing, rhonchi, or rales. - CARDIOVASCULAR: Regular rate and rhyth m. No murmur. No JVD. - ABDOMEN: Soft, non-tender and non-dist ended. No palpable masses. - EXTREMITIES: No edema. Peripheral puls es 2+. Non-tender. - NEUROLOGIC: Moving all extremities - PSYCHIATRIC: Confused and not oriente d x 3. Appropriate mood and affect. - SKIN: No rashes or lesions. Warm. - LYMPH: No cervical lymphadenopathy. DS: Data Data Completed and Pending Labs on day of discharge: Labs from last 24 hours 04/17/24 11:54 POC Capillary Glucose 262 H Discharge Plan Discharge Attending physician on discharge: Darnell Lopes Consulting providers: Yudy Perez Discharging Clinician: Darnell Lopes Anticipated Discharge Date/Time: 04/18/24 10:30 Patient Disposition: Hospice - Home Activity: as tolerated Diet: as tolerated Patient Instructions: Apixaban (By mouth), Urinary Tract Infection in Men (DC), Encephalopathy (DC) Patient Language: Slovenian Stand Alone Forms: General Discharge Information Discharge Medications: Continued atorvastatin 40 mg Tablet 40 mg PO DAILY Qty: 1 0RF clopidogrel 75 mg Tablet 75 mg PO QAM Qty: 1 0RF piperacillin-tazobactam 2.25 gram Recon Soln 2.25 g IV Q6HR Qty: 3 0RF levothyroxine 75 mcg tablet 75 mcg PO DAILY glipizide 5 mg tablet 5 mg PO BID memantine 5 mg tablet 5 mg PO BID aspirin [Adult Low Dose Aspirin] 81 mg Tablet,Delayed Release (Dr/Ec) 81 mg PO DAILY sennosides-docusate sodium [Senna Plus] 8.6-50 mg tablet 1 tab-cap PO DAILY PRN (Reason: constipation) Date of admission: 04/05/24 20:58 Primary Care Provider: UNKNOWN,DOCTOR Admitting Provider: Christian Gates Attending physician on admission: Danica Lazo Condition: Guarded Prognosis
--- NOTE | 2024-04-18 11:38 | PC.NURSE ---
RN attempted to wake patient up to feed him. Patient falling back asleep. Patient unable to follow commands. Daughter Cassie aware. Patient to discharge home on hospice today.
[2024-04-18] MEDS: NEOMYCIN/POLYMYXIN/BACITRACIN OINTMENT PACKET 1 PACKET (12:05)
== END 2024-04-18 14:45 | disposition hospice, home (50) | DRG 91 ==
PROVIDERS: Internal Medicine; Nurse Practitioner; Nurse Practitioner Acute Care; Nurse Practitioner Family; Student in an Organized Health Care Education/Training Program; Admitting Provider General Practice; Visit Provider Hospitalist
DX: G92.8 Other toxic encephalopathy (principal); E43 Unspecified severe protein-calorie malnutrition; G93.41 Metabolic encephalopathy; Z68.1 Body mass index [BMI] 19.9 or less, adult; E87.1 Hypo-osmolality and hyponatremia; T36.1X5A Adverse effect of cephalosporins and other beta-lactam antibiotics, initial encounter; T43.025A Adverse effect of tetracyclic antidepressants, initial encounter; E11.22 Type 2 diabetes mellitus with diabetic chronic kidney disease; E03.9 Hypothyroidism, unspecified; R33.9 Retention of urine, unspecified; R53.81 Other malaise; F32.A Depression, unspecified; F03.90 Unspecified dementia, unspecified severity, without behavioral disturbance, psychotic disturbance, mood disturbance, and anxiety; N18.30 Chronic kidney disease, stage 3 unspecified; Z79.84 Long term (current) use of oral hypoglycemic drugs; Z86.16 Personal history of COVID-19; Z86.73 Personal history of transient ischemic attack (TIA), and cerebral infarction without residual deficits; Z87.891 Personal history of nicotine dependence
CPT/HCPCS: 36415; 70450; 70551; 80048; 80053; 82948; 83605; 83735; 84100; 84300; 84466; 84478; 85025; 85027; 85055; 85610; 85730; 87040; 87641; 92526; 92610; 96375; 97110; 97165; 97530; A9270; C8929; J1815; J2543; J3475; J3480; J7030; Q9957